=== PATIENT | female | born 1995 | race Caucasian/White ===

== ENCOUNTER 2022-12-12 12:36 | Outpatient (OUT) | payer OTHER, SELFPAY ==
[2022-12-12 13:09] LABS: Basophils Percent Auto 0.5 % (0.2-2.0); Hematocrit 37.1 % (36.0-48.0); Hemoglobin 12.4 g/dL (12.0-16.0); Immature Granulocytes Abs Auto 0.01 10^3/uL (0.00-0.03); Immature Granulocytes Pct Auto 0.1 % (0.0-0.5); Lymphocytes Absolute Auto 1.8 10^3/uL (1.2-3.8); Lymphocytes Percent Auto 23.6 % (20.5-60.0); Mean Corpuscular HGB Conc 33.4 g/dL (29.9-35.2); Mean Corpuscular Hemoglobin 31.9 pg (26.7-34.0); Mean Corpuscular Volume 95.4 fL (81.0-99.0); Mean Platelet Volume 10.1 fL (9.5-13.5); Monocytes Absolute Auto 0.5 10^3/uL (0.3-0.8); Neutrophils Absolute Auto 5.1 10^3/uL (1.4-6.5); Neutrophils Percent Auto 68.8 % (43.0-75.0); Platelet Count 220 10^3/uL (150-450); Red Blood Count 3.89 10^6/uL (4.20-5.40); Red Cell Distribution Width 12.5 % (11.0-15.0); White Blood Count 7.4 10^3/uL (4.0-11.0)
[2022-12-12 14:04] LABS: Estimated Average Glucose 111 mg/dL; Glycohemoglobin A1C 5.5 % (4.5-6.2)
[2022-12-12 14:12] LABS: Free T4 0.82 ng/dL (0.76-1.46)
[2022-12-12 14:13] LABS: HCG Quantitative <1 mIU/mL; Thyroid Stimulating Hormone 1.327 uIU/mL (0.358-3.740)
[2022-12-13 09:10] LABS: FSH 4.9 mIU/mL (.); Luteinizing Hormone(LH) 9.5 mIU/mL (.)
[2022-12-16 09:16] LABS: DHEA, Serum 136 ng/dL (31-701)
== END 2022-12-12 12:37 | disposition home or self-care (01) ==
LOC: LAB 12:40
PROVIDERS: Visit Provider Obstetrics & Gynecology
DX: E28.2 Polycystic ovarian syndrome (principal)
CPT/HCPCS: 36415; 82626; 82627; 83001; 83002; 83036; 84439; 84443; 84702; 85025

== ENCOUNTER 2023-04-27 12:22 | Outpatient (OUT) | payer OTHER, SELFPAY ==
--- NOTE | 2023-04-27 12:31 | US_ITS ---
[address] [address] Patient Name: BENNETT EM MRN: [id number] date: 1995 Sex: F Assigned Patient Location: [facility] Current Patient Location: [facility] Accession/Order Number: [id number] Exam Date: 04/27/2023 12:32 Report Date: 04/27/2023 13:18 At the request of: MERRICK BOCANEGRA Procedure: US OB transvaginal EXAMINATION: US OB transvaginal HISTORY: MISSED MENSES COMPARISON: No relevant comparison available. FINDINGS: [place] intrauterine gestation Gestational sac: 3.1 cm, 9 weeks 0 days CRL: 2.99 cm, 9 weeks 6 days Yolk sac: 4.9 mm Heart rate: 173 bpm Cervix: Closed, 4.7 cm Area of hypoechogenicity in the cervix measuring 1.7 x 0.5 x 0.5 cm, nonspecific Uterus is normal, anteverted, anteflexed The right ovary is normal measuring 2.4 x 1.7 x 2.1 cm. Left ovary is normal measuring 3.6 x 2.7 0.7 cm. Corpus luteal cyst. Clinical age: 9 weeks 6 days Clinical MADIE: 11/24/2023 US/US OB transvaginal IMPRESSION: Viable [place]is intrauterine gestation measuring 9 weeks 6 days Electronically authenticated by: ALETHA TRAN Date: 04/27/2023 13:18
== END 2023-04-27 12:23 | disposition home or self-care (01) ==
LOC: NOMS 12:23
PROVIDERS: Visit Provider Obstetrics & Gynecology
DX: Z34.91 Encounter for supervision of normal pregnancy, unspecified, first trimester (principal); Z3A.09 9 weeks gestation of pregnancy; N92.6 Irregular menstruation, unspecified; E28.2 Polycystic ovarian syndrome
CPT/HCPCS: 76817

== ENCOUNTER 2023-05-18 13:15 | Emergency (ER) | payer OTHER, SELFPAY ==
[2023-05-18 13:23] VITALS: BP 130/64; PULSE 81; RESP 16; TEMP 36.9; O2SAT 100; BMI 24.3
--- NOTE | 2023-05-18 13:24 | ED.PREGNANC1 ---
HPI - General Chief complaint: OB/Uterine Contractions Stated complaint: ABDOMINAL PAIN > 12 WKS Time Seen by Provider: 05/18/23 13:19 Source: patient Mode of arrival: walk-in Limitations: no limitations History of Present Illness HPI Narrative: Patient is a 28-year-old female G5, P3 Ab1 who presents to the emergency department at 13 weeks of for the evaluation of left flank pain over the last day. She states she is concerned she may have a UTI. She reports pain in the left lateral abdomen radiating to the pelvis. She has not had any vaginal bleeding or fluid leakage. She has not had any fevers, she has chronic nausea and vomiting throughout this . She has been using Phenergan at home with improvement for her morning sickness. She denies any dysuria but reports having to strain to force her urine today. She has had no hematuria. She has no history of kidney stones. She does have a history of kidney infections. She had an ultrasound at 9 weeks showing a viable intrauterine gestation Related Data Previous Rx's ?Medication ?Instructions ?Recorded dicyclomine 20 mg tablet 20 mg PO QID PRN abdominal pain 05/18/23 #12 tabs Allergies Allergy/AdvReac Type Severity Reaction Status Date / Time No Known Drug Allergies Allergy Verified 05/18/23 13:23 Review of Systems ROS Constitutional Denies: fever or chills Ears, nose, mouth, and throat Denies: throat pain or nasal congestion Cardiovascular Denies: chest pain Respiratory Denies: shortness of breath Gastrointestinal Reports: abdominal pain, nausea and vomiting; Denies: diarrhea Genitourinary Reports: pelvic pain; Denies: painful urination Musculoskeletal Reports: back pain; Denies: neck pain Integumentary/Breast Denies: rash Neurological Denies: headache Hematologic/Lymphatic Denies: easy bruising or easy bleeding Exam Narrative Exam Narrative: Gen.: Awake, alert, in no distress Head: Normocephalic, atraumatic ENT: Moist mucous membranes Respiratory: No respiratory distress Gastrointestinal: Abdomen is soft, nondistended and nontender to palpation Back: No CVA tenderness Extremities: Moves extremities equally Psych: Normal mood and affect Neuro: No focal neuro deficit Skin: Warm, dry, intact Constitutional Vital Signs, click to edit/add: Last Vital Signs Temp 98.4 F 05/18/23 13:23 Pulse 74 05/18/23 14:46 Resp 18 05/18/23 14:46 BP 116/76 05/18/23 14:46 Pulse Ox 98 05/18/23 14:46 O2 Del Method Room Air 05/18/23 13:23 Course Vital Signs Vital signs: Vital Signs Temperature 98.4 F 05/18/23 13:23 Pulse Rate 81 05/18/23 13:23 Respiratory Rate 16 05/18/23 13:23 Blood Pressure 130/64 05/18/23 13:23 Pulse Oximetry 100 05/18/23 13:23 Oxygen Delivery Method Room Air 05/18/23 13:23 Temperature 98.4 F 05/18/23 13:23 Pulse Rate 74 05/18/23 14:46 Respiratory Rate 18 05/18/23 14:46 Blood Pressure 116/76 05/18/23 14:46 Pulse Oximetry 98 05/18/23 14:46 Oxygen Delivery Method Room Air 05/18/23 13:23 MDM - OB/Uterine Contractions MDM Narrative Medical decision making narrative: Patient was stable vital signs in the ER, she was treated with IV fluids that she was concerned she may be dehydrated. Her urine specimen and labs do not show any evidence of dehydration. Her CBC, BMP and urine specimen are normal, renal ultrasound and OB ultrasound also show no evidence of acute process. Patient encouraged to take Tylenol for home, she was given Bentyl as her symptoms may be GI related. Follow-up with PCP and OB and return to the emergency department if symptoms change or worsen Medical Records Attestation: I reviewed the patient's medical records. Lab Data Attestation: I reviewed the patient's lab results. Labs: Lab Results 05/18/23 05/18/23 Range/Units 13:30 13:51 WBC 8.8 (4.0-11.0) 10^3/uL RBC 3.41 L (4.20-5.40) 10^6/uL Hgb 11.0 L (12.0-16.0) g/dL Hct 33.0 L (36.0-48.0) % MCV 96.8 (81.0-99.0) fL MCH 32.3 (26.7-34.0) pg MCHC 33.3 (29.9-35.2) g/dL RDW 12.2 (11.0-15.0) % Plt Count 210 (150-450) 10^3/uL MPV 10.4 (9.5-13.5) fL Neut % (Auto) 74.9 (43.0-75.0) % Lymph % (Auto) 17.8 L (20.5-60.0) % [place] % (Auto) 6.5 (1.7-12.0) % Eos % (Auto) 0.3 L (0.9-7.0) % Baso % (Auto) 0.3 (0.2-2.0) % Neut # (Auto) 6.6 H (1.4-6.5) 10^3/uL Lymph # (Auto) 1.6 (1.2-3.8) 10^3/uL [place] # (Auto) 0.6 (0.3-0.8) 10^3/uL Eos # (Auto) 0.0 (0.0-0.7) 10^3/uL Baso # (Auto) 0.0 (0.0-0.1) 10^3/uL Abs Immat Gran (auto) 0.02 (0.00-0.03) 10^3/uL Imm/Tot Granulo (auto) 0.2 (0.0-0.5) % Sodium 138 (136-145) mmol/L Potassium 3.6 (3.5-5.1) mmol/L Chloride 103 (98-107) mmol/L Carbon Dioxide 23.7 (21.0-32.0) mmol/L Anion Gap 14.9 BUN 7.0 (7.0-18.0) mg/dL Creatinine 0.66 (0.55-1.02) mg/dL Est GFR ( Amer) >60 (>=60) Est GFR (Non-Af Amer) >60 (>=60) BUN/Creatinine Ratio 10.6 Glucose 87 (74-106) mg/dL Calcium 9.4 (8.5-10.1) mg/dL Urine Color Lt. yellow (YELLOW) Urine Clarity Clear (CLEAR) Urine pH 6.5 (5.0-9.0) Ur Specific [place] 1.020 (1.005-1.025) Urine Protein Negative (NEG/TRACE) mg/dL Urine Glucose (UA) Negative (NEGATIVE) mg/dL Urine Ketones Negative (NEGATIVE) mg/dL Urine Occult Blood Negative (NEGATIVE) Urine Nitrite Negative (NEGATIVE) Urine Bilirubin Negative (NEGATIVE) Urine Urobilinogen 0.2 (0.2-1.0) EU/dL Ur Leukocyte Esterase Negative (NEGATIVE) Imaging Data US - abdomen: Attestation: I have reviewed the pertinent imaging results. Radiologist's impression: ITS Impressions Ultrasound 05/18/23 13:47 IMPRESSION: 1. Single viable intrauterine fetus with heart rate of 157 beats per minute. The placenta is visualized. Estimated gestational age by ultrasound is 13 weeks 1 day with an estimated date of confinement by ultrasound of 11/22/2023. Follow-up ultrasound at 18-22 weeks' gestation for anatomy evaluation. 2. Probable 3 cm corpus luteum cyst in left ovary. Right ovary not visualized. 3. Closed cervix with cervical length of 4.2 cm. Electronically authenticated by: GHASSAN DOSS Date: 05/18/2023 14:45 Renal Ultrasound 05/18/23 13:47 IMPRESSION: 1. Normal ultrasound appearance of the kidneys and urinary bladder. Electronically authenticated by: HELENA CASTRO Date: 05/18/2023 14:44 Procedure: US OB <= 14 weeks fetus Obstetrical ultrasound, 1st trimester CLINICAL: Left flank pain/pelvic pain TECHNIQUE: Transabdominal and transvaginal obstetrical ultrasound was performed. FINDINGS: Comparison: None. UTERUS: A single intrauterine gestation sac with single fetus. [place] rump length is 68.5 mm. heart rate of 157 beats per minute. Placenta is visualized. Cervix is closed and measures 4.2 cm in length. OVARIES/ADNEXA: The right ovary is not visualized. The left ovary measures 3.0 x 2.8 x 2.6 cm, with a dominant cyst measuring 3.0 x 2.8 x 2.6 cm. Color flow to the left ovary. No adnexal abnormality. OTHER FINDINGS: None. ULTRASOUND GESTATIONAL AGE AND ESTIMATED DATE OF CONFINEMENT: The estimated gestational age by ultrasound is 13 weeks 1 day with an estimated date of confinement by the ultrasound of 11/22/2023. IMPRESSION: 1. Single viable intrauterine fetus with heart rate of 157 beats per minute. The placenta is visualized. Estimated gestational age by ultrasound is 13 weeks 1 day with an estimated date of confinement by ultrasound of 11/22/2023. Follow-up ultrasound at 18-22 weeks' gestation for anatomy evaluation. 2. Probable 3 cm corpus luteum cyst in left ovary. Right ovary not visualized. 3. Closed cervix with cervical length of 4.2 cm. us renal: Attestation: I have reviewed the pertinent imaging results. Radiologist's impression: ITS Impressions Ultrasound 05/18/23 13:47 IMPRESSION: 1. Single viable intrauterine fetus with heart rate of 157 beats per minute. The placenta is visualized. Estimated gestational age by ultrasound is 13 weeks 1 day with an estimated date of confinement by ultrasound of 11/22/2023. Follow-up ultrasound at 18-22 weeks' gestation for anatomy evaluation. 2. Probable 3 cm corpus luteum cyst in left ovary. Right ovary not visualized. 3. Closed cervix with cervical length of 4.2 cm. Electronically authenticated by: GHASSAN DOSS Date: 05/18/2023 14:45 Renal Ultrasound 05/18/23 13:47 IMPRESSION: 1. Normal ultrasound appearance of the kidneys and urinary bladder. Electronically authenticated by: HELENA CASTRO Date: 05/18/2023 14:44 Procedure: US renal BI EXAMINATION: US renal BI HISTORY: Left flank pain in COMPARISON: No relevant comparison available. TECHNIQUE: Ultrasound examination was performed of the kidneys and urinary bladder. FINDINGS: RIGHT KIDNEY: No evidence of pelvocaliectasis, mass, or calculi. Normal renal cortical parenchymal echogenicity. Color Doppler demonstrates blood flow within the kidney. Kidney: 12.0 x 5.9 x 4.2 cm LEFT KIDNEY: No evidence of pelvocaliectasis, mass, or calculi. Normal renal cortical parenchymal echogenicity. Color Doppler demonstrates blood flow within the kidney. Kidney: 10.7 x 5.4 x 5.2 cm BLADDER: No visible wall thickening, mass, or calculi. IMPRESSION: 1. Normal ultrasound appearance of the kidneys and urinary bladder. Electronically authenticated by: HELENA CASTRO Date: 05/18/2023 14:44 Discharge Plan Discharge Stand Alone Forms: Portal Instructions Chief Complaint: OB/Uterine Contractions Clinical Impression: Left flank pain Patient Disposition: Home, Self-Care Time of Disposition Decision: 14:54 Condition: Good Prescriptions / Home Meds: New dicyclomine 20 mg tablet 20 mg PO QID PRN (Reason: abdominal pain) Qty: 12 0RF Print Language: Kinyarwanda Instructions: Abdominal Pain in (ED) Referrals: Physician,Non-Staff, MD [Primary Care Provider] - 1 week Discharge Date/Time: 05/18/23 15:06
[2023-05-18 13:36] LABS: Bilirubin Urine NEGATIVE (NEGATIVE); Blood Urine NEGATIVE (NEGATIVE); Clarity Urine CLEAR (CLEAR); Color Urine LT. YELLOW (YELLOW); Glucose Urine UA NEGATIVE (NEGATIVE); Ketones Urine NEGATIVE (NEGATIVE); Leukocyte Esterase Urine NEGATIVE (NEGATIVE); Nitrite Urine NEGATIVE (NEGATIVE); Protein Urine NEGATIVE (NEG/TRACE); Urobilinogen Urine 0.2 EU/dL (0.2-1.0); pH Urine 6.5 (5.0-9.0)
--- NOTE | 2023-05-18 13:47 | US_ITS ---
The [address] [address] Patient Name: BENNETT EM MRN: [id number] date: 1995 Sex: F Assigned Patient Location: ER Current Patient Location: ER Accession/Order Number: [id number] Exam Date: 05/18/2023 14:05 Report Date: 05/18/2023 14:44 At the request of: MANPREET BLANKENSHIP Procedure: US renal BI EXAMINATION: US renal BI HISTORY: Left flank pain in COMPARISON: No relevant comparison available. TECHNIQUE: Ultrasound examination was performed of the kidneys and urinary bladder. FINDINGS: RIGHT KIDNEY: No evidence of pelvocaliectasis, mass, or calculi. Normal renal cortical parenchymal echogenicity. Color Doppler demonstrates blood flow within the kidney. Kidney: 12.0 x 5.9 x 4.2 cm LEFT KIDNEY: No evidence of pelvocaliectasis, mass, or calculi. Normal renal cortical parenchymal echogenicity. Color Doppler demonstrates blood flow within the kidney. Kidney: 10.7 x 5.4 x 5.2 cm BLADDER: No visible wall thickening, mass, or calculi. US/US renal BI IMPRESSION: 1. Normal ultrasound appearance of the kidneys and urinary bladder. Electronically authenticated by: HELENA CASTRO Date: 05/18/2023 14:44
--- NOTE | 2023-05-18 13:47 | US_ITS ---
[address] [address] Patient Name: BENNETT EM MRN: [id number] date: 1995 Sex: F Assigned Patient Location: ER Current Patient Location: ER Accession/Order Number: [id number] Exam Date: 05/18/2023 14:05 Report Date: 05/18/2023 14:45 At the request of: MANPREET BLANKENSHIP Procedure: US OB <= 14 weeks fetus Obstetrical ultrasound, 1st trimester CLINICAL: Left flank pain/pelvic pain TECHNIQUE: Transabdominal and transvaginal obstetrical ultrasound was performed. FINDINGS: Comparison: None. UTERUS: A single intrauterine gestation sac with single fetus. [place] rump length is 68.5 mm. heart rate of 157 beats per minute. Placenta is visualized. Cervix is closed and measures 4.2 cm in length. OVARIES/ADNEXA: The right ovary is not visualized. The left ovary measures 3.0 x 2.8 x 2.6 cm, with a dominant cyst measuring 3.0 x 2.8 x 2.6 cm. Color flow to the left ovary. No adnexal abnormality. OTHER FINDINGS: None. ULTRASOUND GESTATIONAL AGE AND ESTIMATED DATE OF CONFINEMENT: The estimated gestational age by ultrasound is 13 weeks 1 day with an estimated date of confinement by the ultrasound of 11/22/2023. US/US OB <= 14 weeks fetus IMPRESSION: 1. Single viable intrauterine fetus with heart rate of 157 beats per minute. The placenta is visualized. Estimated gestational age by ultrasound is 13 weeks 1 day with an estimated date of confinement by ultrasound of 11/22/2023. Follow-up ultrasound at 18-22 weeks' gestation for anatomy evaluation. 2. Probable 3 cm corpus luteum cyst in left ovary. Right ovary not visualized. 3. Closed cervix with cervical length of 4.2 cm. Electronically authenticated by: GHASSAN DOSS Date: 05/18/2023 14:45
[2023-05-18] MEDS: ACETAMINOPHEN 500 MG TABLET 1000 MG PO (13:56)
[2023-05-18] MEDS: 0.9 % SODIUM CHLORIDE 1,000 ML 1000 ML IV (13:57)
[2023-05-18 14:12] LABS: Anion Gap 14.9; BUN Creatinine Ratio 10.6; Calcium 9.4 mg/dL (8.5-10.1); Carbon Dioxide 23.7 mmol/L (21.0-32.0); Chloride 103 mmol/L (98-107); Estimated GFR (African America >60 (>=60); Estimated GFR (Non-African Ame >60 (>=60); Glucose 87 mg/dL (74-106); Potassium 3.6 mmol/L (3.5-5.1); Sodium 138 mmol/L (136-145)
[2023-05-18 14:12] LABS: Urine Microscopic Indicated NO
[2023-05-18 14:13] LABS: Basophils Percent Auto 0.3 % (0.2-2.0); Eosinophils Percent Auto 0.3 % (0.9-7.0); Immature Granulocytes Abs Auto 0.02 10^3/uL (0.00-0.03); Immature Granulocytes Pct Auto 0.2 % (0.0-0.5); Lymphocytes Absolute Auto 1.6 10^3/uL (1.2-3.8); Lymphocytes Percent Auto 17.8 % (20.5-60.0); Mean Corpuscular HGB Conc 33.3 g/dL (29.9-35.2); Mean Corpuscular Hemoglobin 32.3 pg (26.7-34.0); Mean Corpuscular Volume 96.8 fL (81.0-99.0); Mean Platelet Volume 10.4 fL (9.5-13.5); Monocytes Absolute Auto 0.6 10^3/uL (0.3-0.8); Monocytes Percent Auto 6.5 % (1.7-12.0); Neutrophils Absolute Auto 6.6 10^3/uL (1.4-6.5); Neutrophils Percent Auto 74.9 % (43.0-75.0); Platelet Count 210 10^3/uL (150-450); Red Blood Count 3.41 10^6/uL (4.20-5.40); Red Cell Distribution Width 12.2 % (11.0-15.0); White Blood Count 8.8 10^3/uL (4.0-11.0)
[2023-05-18 14:46] VITALS: BP 116/76; PULSE 74; RESP 18; O2SAT 98
== END 2023-05-18 15:06 | disposition home or self-care (01) ==
PROVIDERS: Physician Assistant; Emergency Provider Emergency Medicine
DX: O26.891 Other specified pregnancy related conditions, first trimester (principal); R10.9 Unspecified abdominal pain; Z3A.13 13 weeks gestation of pregnancy
CPT/HCPCS: 36415; 76775; 76801; 80048; 81003; 85025; 96360; 99285

== ENCOUNTER 2023-05-23 14:20 | Outpatient (REF) | payer OTHER, SELFPAY ==
[2023-05-26 13:10] LABS: Age Gdln ACOG Testing Note (.); HPV Aptima Negative (Negative); IGP, Aptima HPV, rfx 16/18,45 Note (.)
== END 2023-05-23 14:21 | disposition home or self-care (01) ==
LOC: LAB 14:20
PROVIDERS: Visit Provider Obstetrics & Gynecology
DX: Z01.419 Encounter for gynecological examination (general) (routine) without abnormal findings (principal)
CPT/HCPCS: 87624; G0145

== ENCOUNTER 2023-07-07 14:00 | Outpatient (OUT) | payer OTHER, SELFPAY ==
--- NOTE | 2023-07-07 14:02 | US_ITS ---
[address] [address] Patient Name: BENNETT EM MRN: [id number] date: 1995 Sex: F Assigned Patient Location: US Current Patient Location: US Accession/Order Number: [id number] Exam Date: 07/07/2023 14:45 Report Date: 07/07/2023 16:39 At the request of: MERRICK BOCANEGRA Procedure: US OB cervical length EXAMINATION: US OB anatomy, US OB cervical length HISTORY: Screening, , for anatomic survey Z36.89 COMPARISON: No relevant comparison available. TECHNIQUE: Transabdominal sonographic examination was performed for obstetrical and evaluation. FINDINGS: Number: One Heart Rate: 148 H.B. /min Amniotic Fluid Volume: Subjectively normal Placental Location: Posterior fundal with lower margin 5.5 cm from os. Cervix Length: 5.4 cm, closed. ANATOMY: Normal Structures -cerebellum, choroid plexus, cisterna magna, lateral cerebral ventricles, orbits, midline falx, hard palate, four-chamber heart, RVOT, LVOT, stomach, kidneys, bladder, umbilical cord insertion into abdomen, three-vessel cord, cervical spine, thoracic spine, lumbar spine, sacral spine, right upper extremity, left upper extremity, right lower extremity, left lower extremity. SUBOPTIMALLY SEEN: None ABNORMALITIES: None BIOMETRY: BPD: 4.9 cm , 20 weeks 6 days, 83% HC: 18.3 cm, 20 weeks 5 days, 73% AC: 14.6 cm, 20 weeks 0 days, 42% FL: 3.0 cm, 19 weeks 2 days, 21% EFW:314 g; 34% FL/AC: 20.65 FL/BPD: 61.51 HC/AC: 1.25 GESTATIONAL AGE: Age by EDC: 20 weeks 0 days MADIE by EDC: 11/24/2023 Age by current US: 20 weeks 2 days MADIE by current US: 11/22/2023 US/US OB cervical length IMPRESSION: 1. Single live intrauterine with growth detailed above. Electronically authenticated by: HELENA CASTRO Date: 07/07/2023 16:39
--- NOTE | 2023-07-07 14:02 | US_ITS ---
[address] [address] Patient Name: BENNETT EM MRN: [id number] date: 1995 Sex: F Assigned Patient Location: US Current Patient Location: US Accession/Order Number: [id number] Exam Date: 07/07/2023 14:45 Report Date: 07/07/2023 16:39 At the request of: MERRICK BOCANEGRA Procedure: US OB anatomy EXAMINATION: US OB anatomy, US OB cervical length HISTORY: Screening, , for anatomic survey Z36.89 COMPARISON: No relevant comparison available. TECHNIQUE: Transabdominal sonographic examination was performed for obstetrical and evaluation. FINDINGS: Number: One Heart Rate: 148 H.B. /min Amniotic Fluid Volume: Subjectively normal Placental Location: Posterior fundal with lower margin 5.5 cm from os. Cervix Length: 5.4 cm, closed. ANATOMY: Normal Structures -cerebellum, choroid plexus, cisterna magna, lateral cerebral ventricles, orbits, midline falx, hard palate, four-chamber heart, RVOT, LVOT, stomach, kidneys, bladder, umbilical cord insertion into abdomen, three-vessel cord, cervical spine, thoracic spine, lumbar spine, sacral spine, right upper extremity, left upper extremity, right lower extremity, left lower extremity. SUBOPTIMALLY SEEN: None ABNORMALITIES: None BIOMETRY: BPD: 4.9 cm , 20 weeks 6 days, 83% HC: 18.3 cm, 20 weeks 5 days, 73% AC: 14.6 cm, 20 weeks 0 days, 42% FL: 3.0 cm, 19 weeks 2 days, 21% EFW:314 g; 34% FL/AC: 20.65 FL/BPD: 61.51 HC/AC: 1.25 GESTATIONAL AGE: Age by EDC: 20 weeks 0 days MADIE by EDC: 11/24/2023 Age by current US: 20 weeks 2 days MADIE by current US: 11/22/2023 US/US OB anatomy IMPRESSION: 1. Single live intrauterine with growth detailed above. Electronically authenticated by: HELENA CASTRO Date: 07/07/2023 16:39
== END 2023-07-07 14:01 | disposition home or self-care (01) ==
LOC: US 14:00
PROVIDERS: Visit Provider Obstetrics & Gynecology
DX: Z36.89 Encounter for other specified antenatal screening (principal); Z3A.20 20 weeks gestation of pregnancy
CPT/HCPCS: 76805; 76817

== ENCOUNTER 2023-07-10 05:23 | Observation (INO) | payer OTHER, SELFPAY ==
--- OUTSIDE RECORDS SUMMARY | 2023-07-10 05:27 | XMS_ITS | CCD ---
Author Organization [facility] Care Team Providers Care Wheat Shipper Name Role Phone Bryce De La Garza Admitting Physician Unavailable Bryce De La Garza Attending Physician Unavailable NON, STAFF Primary Care Physician Unavailab Savage Roman Rounding Physician Unavailable FEI LOO Admitting Unavailable FEI LOO Attending Unavailable Unavailable Primary Care Provider UnavailKia Jeffrey Primary Care Provider [phone] Unavailable Primary Care Provider UnavailKia Jeffrey CNP Primary Care Provider KIA SHARMA Referring Unavailable NO FAMILY, PHYSICIAN Primary Care Provider Unava DO Ed Hoover Emergency Provider MD Chandrika Faustmi Admit Provider [phone] MD Feliberto Faust Attending Provider [phone] Unavailable Primary Care Provider UnavailDR YURIY Peraza Admitting Unavailable DR YURIY SABILLON Attending Unavailable REQUEST, NONE LISTED Primary Care UnavailDR YURIY Ragland Consulting Unavailable NO FAMILY, PHYSICIAN Primary Care Unavailable Feliberto Faust Attending Unavailable Feliberto Faust Admitting Unavailable Kia Booker APRN, CNP Primary Care Provide r Mariposa Duncan CNP Primary Care Provider Kia Booker APRN, CNP Primary Care Provide r Kia Booker APRN, CNP Primary Care Provide r SAMARA DOMINGUEZ Attending Unavailable KIA SHARMA Primary Care Unavailable KIA SHARMA Primary Care Unavailable MARTIN REAL Attending Unavailable KIA HSARMA Primary Care Unavailable KIA SHARMA Primary Care Unavailable YURIY SABILLON Referring Unavailable YURIY SABILLON Attending Unavailable YURIY SABILLON Attending Unavailable YURIY SABILLON Attending Unavailable Medications Current Medications Medication Drug Class(es) Dates Sig (Normalized) Sig (Original) acetaminophen 500 mg oral tablet (18 sources) Start: 03-04-2022 acetaminophen (TYLENOL) tablet 1,000 mg Start: 10-14-2020 acetaminophen (TYLENOL) tablet 650 mg Start: 05-27-2020 acetaminophen (TYLENOL) tablet 1,000 mg Start: 05-27-2020 take 2 tablets by mo ut every six hours as needed for pain acetaminophen (TYLENOL) 325 MG tablet Take 2 tablets by mouth every 6 hours as needed for Pain 30 tablet 0 05/27/2020 Active acetaminophen 325 mg / HYDROcodone bitartrate 5 mg oral tablet (3 sources) Opioid Agonist Start: 03-04-2022 End: 03-07-2022 HYDROcodone-acetaminophen (NORCO) 5-325 MG per tablet Indications: Abscess of right breast Take 1 tablet by mouth every 6 hours as needed for Pain for up to 3 days. Intended supply: 3 days. Take lowest dose possible to manage pain Max Daily Amount: 4 tablets 12 tablet 0 03/04/2022 03/07/2022 Active Start: 03-01-2022 End: 03-01-2022 HYDROcodone-acetaminophen (N ORCO) 5-325 MG per tablet 1 tablet Start: 10-14-2020 End: 10-17-2020 HYDROcodone-acetaminophen (N ORCO) 5-325 MG per tablet Indications: HGSIL on cytologic smear of cervix Take 1 tablet by mouth every 6 hours as needed for Pain for up to 3 days. Intended supply: 3 days. Take lowest dose possible to manage pain 10 tablet 0 10/14/2020 10/17/2020 Active [id number] 200 actuat albuterol 0.09 mg/actuat metered dose inhaler (20 sources) beta2-Adrenergic Agonist Start: 11-14-2020 take 1-2 puff(s) by mouth every four to six hours albuterol sulfate HFA 108 (90 Base) MCG/ACT inhaler inhale 1 to 2 puffs by mouth and INTO THE LUNGS every 4 to 6 hour... (REFER TO PRESCRIPTION NOTES). 0 11/14/2020 Active Start: 03-20-2020 End: 07-27-2022 Albuterol Sulfate HFA 108 (9 0 Base) MCG/ACT Inhalation Aerosol Solution 04/14/2020 - 12/08/2020 Provider: Kia Sharma CNP Start: 04-19-2017 take 1 puff(s) by in halation every six hours as needed Albuterol Sulfate 2 PUFF Inhalation Q6H PRN For Shortness Of Breath April 19, 2017 Active Start: 04-19-2017 End: 10-26-2021 take 1 puff(s) by inhalation every six hours Albuterol Sulfate Discontinued 2 PUFF INHALATION Q6H April 19, 2017 1:00am October 26, 2021 9:01pm amoxicillin 875 mg oral tablet (1 source) Penicillin-class Antibacterial Start: 12-24-2019 End: 01-03-2020 take 1 tablet by mouth twice daily amoxicillin (AMOXIL) 875 MG tablet Take 1 tablet by mouth 2 times daily for 10 days 20 tablet 0 12/24/2019 01/03/2020 Active amoxicillin 875 mg / clavulanate 125 mg oral tablet (1 source) Penicillin-class Antibacterial Start: 02-06-2020 End: 02-16-2020 take 1 tablet by mouth twice daily amoxicillin-clavu lanate (AUGMENTIN) 875-125 MG per tablet Take 1 tablet by mouth 2 times daily for 10 days 20 tablet 0 02/06/2020 02/16/2020 Active atomoxetine 60 mg oral capsule (20 sources) Norepinephrine Reuptake Inhibitor Start: 03-20-2020 End: 03-03-2022 Strattera 60 MG Oral Capsule 03/20/2020 Provider: Start: 04-09-2019 End: 10-26-2021 take 40 mg by mouth twice daily Atomoxetine Discontinu ed 40 MG PO Twice daily April 09, 2019 1:00am October 26, 2021 9:01pm Start: 02-15-2018 End: 09-23-2020 take 1 capsule by mouth once daily atomoxetine (STRATTERA) 40 MG capsule Take 1 capsule by mouth daily 30 capsule 0 02/15/2018 09/23/2020 Discontinued (LIST CLEANUP) Start: 04-23-2017 End: 10-18-2018 take 40 mg by mouth twice daily Atomoxetine 40 MG Oral BID@0800,1400 60 April 23, 2017 October 18, 2018 Discontinued 60 actuat budesonide 0.08 mg/actuat / formoterol fumarate 0.0045 mg/actuat metered dose inhaler (1 source) Corticosteroid, beta2-Adrenergic Agonist Start: 07-27-2022 Symbicort 80-4.5 MCG/ACT Inhalation Aerosol 07/27/2022 Provider: Mariposa Duncan [employer]PER[employer] busPIRone hydrochloride 10 mg oral tablet (20 sources) Start: 10-29-2021 take 20 mg by mouth three times daily Buspirone Active 20 MG PO Three times daily 90 October 29, 2021 12:00am Start: 10-09-2020 busPIRone (BUS PAR) 15 MG tablet 2 times daily 0 10/09/2020 Active Start: 03-31-2020 End: 09-23-2020 busPIRone (BUSPAR) 15 MG tab let Start: 03-20-2020 End: 08-17-2021 busPIRone HCl 10 MG Oral Tab let 07/01/2021 - 07/15/2021 Provider: Kia Sharma CNP Start: 08-16-2019 End: 10-26-2021 take 20 mg by mouth three times daily Buspirone Discontinued 20 MG PO Three times daily 180 30 August 16, 2019 12:00am October 26, 2021 9:01pm Start: 08-13-2019 End: 08-16-2019 take 30 mg by mouth twice daily Buspirone Discontinued 30 MG PO Twice daily August 13, 2019 12:00am August 16, 2019 11:37am calcium chloride 0.0014 meq/ ml / potassium chloride 0.004 meq/ml / sodium chloride 0.103 meq/ml / sodium lactate 0.028 meq/ml injectable solution (3 sources) Start: 03-04-2022 IntraVENous, a t 125 mL/hr, CONTINUOUS, Starting on Mon03/04/22 at 1330, PACU only Start: 03-04-2022 lactated ringe rs infusion Start: 10-14-2020 lactated ringe rs infusion cephalexin 500 mg oral capsule (1 source) Cephalosporin Antibacterial Start: 08-03-2022 End: 08-10-2022 take 1 capsule by mouth three times daily cephALEXin (KEFLEX) 500 MG capsule Take 1 capsule by mouth 3 times daily for 7 days 21 capsule 0 08/03/2022 08/10/2022 Active cetirizine hydrochloride 10 mg oral tablet (1 source) Histamine-1 Receptor Antagonist Start: 04-09-2019 End: 10-26-2021 take 10 mg by mouth once daily Cetirizine Discontinued 10 MG PO Daily April 09, 2019 1:00am October 26, 2021 9:01pm cimetidine 400 mg oral tablet (1 source) Histamine-2 Receptor Antagonist Start: 08-13-2019 End: 10-26-2021 take 400 mg by mouth twice daily Cimetidine Discontinued 400 MG PO Twice daily August 13, 2019 12:00am October 26, 2021 9:01pm diclofenac sodium 50 mg delayed release oral tablet (1 source) Nonsteroidal Anti-inflammatory Drug Start: 08-13-2019 End: 10-26-2021 take 1 tablet by mouth three times daily as needed for pain Diclofenac Sodium Discontinued 50 MG PO Three times daily August 13, 2019 12:00am October 26, 2021 9:01pm take one tablet by mouth three times daily as needed for pain famotidine 20 mg oral tablet (13 sources) Histamine-2 Receptor Antagonist Start: 07-27-2022 Famotidine 20 MG Oral Tablet 07/27/2022 Provider: Mariposa Duncan CNP Start: 04-09-2019 End: 10-26-2021 Famotidine 20 MG Oral Tablet 04/03/2020 - 07/15/2021 Provider: Kia Sharma CNP FLUoxetine 20 mg oral capsule (20 sources) Serotonin Reuptake Inhibitor Start: 10-29-2021 take 20 mg by mouth once daily in the morning Fluoxetine Active 20 MG PO Every morning October 29, 2021 12:00am Start: 07-01-2021 End: 08-17-2021 FLUoxetine HCl 20 MG Oral Ca psule 07/15/2021 - 08/17/2021 Provider: Kia Sharma CNP Start: 03-12-2020 End: 07-01-2021 FLUoxetine HCl 40 MG Oral Ca psule 03/20/2020 - 07/01/2021 Provider: Start: 08-16-2019 End: 10-26-2021 take 80 mg by mouth once daily Fluoxetine Discontinued 80 MG PO Daily 60 August 16, 2019 12:00am October 26, 2021 9:01pm Start: 04-13-2019 End: 08-16-2019 take 60 mg by mouth once daily Fluoxetine Discontinued 60 MG PO Daily April 13, 2019 1:00am August 16, 2019 11:37am Start: 10-22-2018 End: 04-13-2019 take 40 mg by mouth once daily in the evening Fluoxetine Discontinued 40 MG PO Every evening April 09, 2019 11:14pm April 13, 2019 12:40pm Fluticasone Propionate (Flovent Hfa) 44 mcg/actuation Hfa Aerosol Inhaler (1 source) Start: 02-27-2019 End: 10-26-2021 take 1 puff(s) by inhalation twice daily Fluticasone Propionate (Flovent Hfa) 44 mcg/actuation Hfa Aerosol Inhaler Discontinued 2 PUFF INHALATION Twice daily February 27, 2019 1:00am October 26, 2021 9:01pm gabapentin 100 mg oral capsule (2 sources) Anti-epilept ic Agent Start: 10-29-2021 take 200 mg by mouth twice daily Gabapentin Active 200 MG PO Twice Daily at 0900 and 1400 60 October 29, 2021 12:00am Start: 08-16-2019 End: 10-26-2021 take 200 mg by mouth twice daily Gabapentin Discontinued 200 MG PO Twice Daily at 0900 and 1400 120 August 16, 2019 12:00am October 26, 2021 9:01pm hydrOXYzine pamoate 50 mg oral capsule (6 sources) Antihistamine Start: 10-29-2021 take 50 mg by mouth every six hours Hydroxyzine Pamoate Active 50 MG PO Q6H 30 October 29, 2021 12:00am Start: 09-15-2020 take 1 tablet by boby th three times daily as needed for anxiety hydrOXYzine (ATARAX) 50 MG tablet TAKE 1 TABLET BY MOUTH THREE TIMES DAILY NEEDED FOR ANXIETY 0 09/15/2020 Suspended ibuprofen 600 mg oral tablet (17 sources) Nonsteroidal Anti-inflammatory Drug Start: 03-01-2022 take 1 tablet by mouth every six hours as needed for pain ibuprofen (IBU) 600 MG tablet Take 1 tablet by mouth every 6 hours as needed for Pain 120 tablet 0 03/01/2022 Active Start: 05-27-2020 End: 03-01-2022 take 1 tablet by mouth every eight hours as needed for pain ibuprofen (ADVIL;MOTRIN) 800 MG tablet Take 1 tablet by mouth every 8 hours as needed for Pain 30 tablet 0 05/27/2020 03/01/2022 Discontinued (Therapy completed) lidocaine hydrochloride 20 mg/ml mucous membrane topical solution (4 sources) Antiarrhythmic, Amide Local Anesthetic Start: 02-06-2020 lidocaine viscous hcl (XYLOCAINE) 2 % solution 15 mL Start: 12-24-2019 lidocaine visc ous hcl (XYLOCAINE) 2 % SOLN solution Take 15 mLs by mouth as needed for Dental Pain 200 mL 0 12/24/2019 Active meloxicam 15 mg oral tablet (1 source) Nonsteroidal Anti-inflammatory Drug Start: 04-09-2019 End: 10-26-2021 take 15 mg by mouth once daily Meloxicam Discontinued 15 MG PO Daily April 09, 2019 1:00am October 26, 2021 9:02pm 2 ml metoclopramide 5 mg/ml prefilled syringe (1 source) Dopamine-2 Receptor Antagonist Start: 10-14-2020 End: 10-14-2020 10 mg, Intravenous, ONCE PRN, Nausea, Starting on Mon10/14/20 at 1137, For 1 dose Secondary antiemetic therapy. PACU only metroNIDAZOLE 500 mg oral tablet (2 sources) Nitroimidazole Antimicrobial Start: 03-25-2021 End: 04-01-2021 take 1 tablet by mouth twice daily metroNIDAZOLE (FLAGYL) 500 MG tablet Indications: Vaginal discharge Take 1 tablet by mouth 2 times daily for 7 days 14 tablet 0 03/25/2021 04/01/2021 Active Start: 02-25-2020 End: 03-03-2020 take 1 tablet by mouth twice daily metroNIDAZOLE (FLAGYL) 500 MG tablet Take 1 tablet by mouth 2 times daily for 7 days 14 tablet 0 02/25/2020 03/03/2020 Active nicotine 2 mg chewing gum (1 source) Cholinergic Nicotinic Agonist Start: 04-13-2019 End: 10-26-2021 Nicotine (Polacrilex) Discontinued 2 MG BUCCAL Q2H 30 April 13, 2019 1:00am October 26, 2021 9:02pm ondansetron 4 mg disintegrating oral tablet (12 sources) Serotonin-3 Receptor Antagonist Start: 08-03-2022 take 1 tablet by mouth three times daily as needed for nausea ondansetron (ZOFRAN-ODT) 4 MG disintegrating tablet Take 1 tablet by mouth 3 times daily as needed for Nausea or Vomiting 10 tablet 0 08/03/2022 Active Start: 08-03-2022 End: 08-03-2022 ondansetron (ZOFRAN) injecti on 4 mg Start: 04-24-2022 take 1 tablet by boby th three times daily as needed for nausea ondansetron (ZOFRAN) 4 MG tablet Take 1 tablet by mouth 3 times daily as needed for Nausea or Vomiting 15 tablet 0 04/24/2022 Active Start: 04-24-2022 End: 04-24-2022 ondansetron (ZOFRAN) injecti on 4 mg Start: 03-04-2022 End: 03-05-2022 4 mg, IntraVENous, ONCE PRN, 1 dose, Starting on Mon03/04/22 at 1313, Until 03/05/22 at 1313, Nausea Initial antiemetic therapy. PACU only Start: 10-14-2020 End: 10-14-2020 4 mg, Intravenous, ONCE PRN, Nausea, Starting on Mon10/14/20 at 1137, For 1 dose Initial antiemetic therapy. PACU only oxyCODONE (2 sources) Opioid Agonist Start: 03-04-2022 End: 03-04-2022 oxyCODONE (ROXICODONE) immed iate release tablet 5 mg Start: 10-14-2020 End: 10-14-2020 take 5 mg by mouth once as needed for pain 5 mg, Oral, ONCE PRN, Pain Moderate (4-6), Starting on Mon10/14/20 at 1137, For 1 dose PHASE II PACU only prazosin 1 mg oral capsule (20 sources) alpha-Adrenergic Tariq Start: 10-29-2021 take 1 mg by mouth once daily at bedtime Prazosin Active 1 MG PO Daily at bedtime October 29, 2021 12:00am Start: 03-20-2020 End: 08-17-2021 take 1-2 capsules by mouth at bedtime as needed prazosin (MINIPRESS) 2 MG capsule TAKE 1-2 CAPSULES BY MOUTH AT BEDTIME NEEDED FOR NIGHTMARE *EMERGENCY REFILL* 0 09/08/2020 Active Start: 04-09-2019 End: 10-26-2021 take 5 mg by mouth once daily at bedtime Prazosin Discontinued 5 MG PO Daily at bedtime April 09, 2019 1:00am October 26, 2021 9:02pm Start: 10-22-2018 End: 04-09-2019 take 2 mg by mouth once daily at bedtime Prazosin 2 MG Oral Daily at bedtime 60 30 October 22, 2018 Active Start: 02-15-2018 End: 10-26-2021 Prazosin HCl 1 MG Oral Capsu le, conventional 07/01/2021 - 07/15/2021 Provider: Kia Sharma CNP 2 ml prochlorperazine 5 mg/ml injection (1 source) Phenothiazine Start: 03-04-2022 End: 03-05-2022 5 mg, IntraVENous, ONCE PRN, 1 dose, Starting on Mon03/04/22 at 1313, Until 03/05/22 at 1313, Nausea Secondary antiemetic therapy. PACU only QUEtiapine 50 mg oral tablet (20 sources) Atypical Antipsychotic Start: 10-29-2021 take 50 mg by mouth twice daily Quetiapine Active 50 MG PO Twice daily October 29, 2021 12:00am Start: 10-09-2020 QUEtiapine (SE ROQUEL) 25 MG tablet 100 mg nightly 0 10/09/2020 Active Start: 03-12-2020 End: 08-17-2021 SEROquel 25 MG Oral Tablet 0 03/20/2020 - 08/17/2021 Provider: Start: 08-16-2019 End: 10-26-2021 SEROquel 50 MG Oral Tablet 0 07/01/2021 - 07/15/2021 Provider: Kia Sharma CNP Start: 04-13-2019 End: 10-26-2021 SEROquel 100 MG Oral Tablet 03/20/2020 - 08/17/2021 Provider: Start: 04-13-2019 End: 08-16-2019 take 25 mg by mouth twice daily Quetiapine Discontinued 25 MG PO Twice daily August 13, 2019 12:42am August 16, 2019 11:37am Start: 02-24-2019 End: 04-09-2019 take 25 mg by mouth every eight hours Quetiapine Discontinued 25 MG PO Q8H February 24, 2019 1:00am April 09, 2019 11:16pm traZODone hydrochloride 50 mg oral tablet (8 sources) Serotonin Reuptake Inhibitor Start: 10-29-2021 take 50 mg by mouth once daily at bedtime Trazodone Active 50 MG PO Daily at bedtime 15 October 29, 2021 12:00am Start: 04-23-2017 End: 10-18-2018 take 150 mg by mouth once daily at bedtime Trazodone 150 MG Oral Daily at bedtime April 23, 2017 Discontinued Viloxazine (6 sources) Viloxazine HCl E R (QELBREE) 200 MG CP24 Take by mouth 0 Active Viloxazine HCl E R (QELBREE) 200 MG CP24 Take by mouth 0 Suspended Completed/Discontinued Medications Medication Drug Class(es) Dates Sig (Normalized) Sig (Original) acyclovir 400 mg oral tablet (14 sources) Herpesvirus Nucleoside Analog DNA Polymerase Inhibitor, Herpes Simplex Virus Nucleoside Analog DNA Polymerase Inhibitor, Herpes Zoster Virus Nucleoside Analog DNA Polymerase Inhibitor Start: 05-28-2021 End: 07-15-2021 Acyclovir 400 MG Oral Tablet 07/01/2021 - 07/15/2021 Provider: Kia Sharma CNP amitriptyline hydrochloride 25 mg oral tablet (5 sources) Tricyclic Antidepressant Start: 11-21-2020 End: 03-03-2022 take 1-2 tablets by mouth at bedtime amitriptyline (ELAVIL) 25 MG tablet take 1 to 2 tablets by mouth at bedtime if needed 0 11/21/2020 03/03/2022 Discontinued (Therapy completed) ARIPiprazole 5 mg oral tablet (7 sources) Atypical Antipsychotic Start: 04-23-2017 End: 10-18-2018 take 5 mg by mouth once daily Aripiprazole 5 MG Oral Daily April 23, 2017 October 18, 2018 Discontinued benzocaine 0.1 mg/mg oral gel (3 sources) Standardized Chemical Allergen Start: 05-27-2020 End: 09-23-2020 benzocaine (ORAJEL) 10 % mucosal gel Take by mouth as needed. 7 g 0 05/27/2020 09/23/2020 Discontinued (LIST CLEANUP) cariprazine 3 mg oral capsule (5 sources) Atypical Antipsychotic Start: 11-14-2020 End: 03-03-2022 take 1 capsule by mouth once daily VRAYLAR 3 MG CAPS capsule TAKE 1 CAPSULE BY MOUTH ONCE DAILY AFTER TAKING 1.5MG CAPSULE FOR 7 DAYS 0 11/14/2020 03/03/2022 Discontinued (Therapy completed) ceFAZolin (ANCEF) 2000 mg in dextrose 5 % 100 mL IVPB (1 source) Start: 10-14-2020 End: 10-14-2020 ceFAZolin (ANCEF) 2000 mg in dextrose 5 % 100 mL IVPB clindamycin 150 mg oral capsule (3 sources) Lincosamide Antibacterial Start: 03-01-2022 End: 03-08-2022 take 3 capsules by mouth three times daily clindamycin (CLEOCIN) 150 MG capsule Take 3 capsules by mouth 3 times daily for 7 days 63 capsule 0 03/01/2022 03/08/2022 Suspended Start: 03-01-2022 End: 03-01-2022 clindamycin (CLEOCIN) capsul e 450 mg dimenhyDRINATE 50 mg oral tablet (1 source) Start: 03-04-2022 End: 03-04-2022 dimenhyDRINATE (DRAMAMINE) tablet 50 mg 2 ml fentaNYL 0.05 mg/ml injection (4 sources) Opioid Agonist Start: 03-04-2022 50 mcg, IntraV ENous, EVERY 5 MIN PRN, 4 doses, Starting on Mon03/04/22 at 1313, Until Discontinued, Pain Severe (7-10) Phase I - Initial therapy for severe pain. PACU only Start: 03-04-2022 25 mcg, IntraV ENous, EVERY 5 MIN PRN, 4 doses, Starting on Mon03/04/22 at 1313, Until Discontinued, Pain Moderate (4-6) Phase I - Initial therapy for moderate pain. PACU only Start: 10-14-2020 50 mcg, Intrav enous, EVERY 5 MIN PRN, Pain Severe (7-10), Starting on Mon10/14/20 at 1137, For 4 doses Phase I - Secondary therapy to be used after all initial severe pain medication doses have been administered. PACU only Start: 10-14-2020 25 mcg, Intrav enous, EVERY 5 MIN PRN, Pain Moderate (4-6), Starting on Mon10/14/20 at 1137, For 4 doses Phase I - Secondary therapy to be used after all initial moderate pain medication doses have been administered. PACU only 120 actuat fluticasone propionate 0.11 mg/actuat metered dose inhaler (20 sources) Corticosteroid Start: 11-16-2020 End: 03-03-2022 take 1 puff(s) by mouth twice daily FLOVENT HFA 110 MCG/ACT inhaler inhale 1 puff by mouth and INTO THE LUNGS twice a day 0 11/16/2020 03/03/2022 Discontinued (Therapy completed) Start: 03-20-2020 End: 07-27-2022 Flovent HFA 110 MCG/ACT Inha lation Aerosol 04/14/2020 - 07/01/2021 Provider: Kia Sharma CNP iopamidol (ISOVUE-370) 76 % injection 75 mL (1 source) Start: 04-24-2022 End: 04-24-2022 iopamidol (ISOVUE-370) 76 % injection 75 mL 1 ml ketorolac tromethamine 30 mg/ml cartridge (1 source) Nonsteroidal Anti-inflammatory Drug, Cyclooxygenase Inhibitor Start: 08-03-2022 End: 08-03-2022 ketorolac (TORADOL) injection 30 mg naproxen 500 mg oral tablet (7 sources) Nonsteroidal Anti-inflammatory Drug Start: 04-19-2017 End: 10-18-2018 take 500 mg by mouth every eight hours as needed for pain Naproxen 500 MG Oral Q8H PRN For Pain April 19, 2017 October 18, 2018 Discontinued OLANZapine 10 mg oral tablet (20 sources) Atypical Antipsychotic Start: 02-27-2019 End: 04-09-2019 take 1 tablet by mouth once daily at bedtime Olanzapine (Zyprexa Zydis) 15 mg tablet,disintegrat ing Discontinued 15 MG PO Daily at bedtime February 27, 2019 1:00am April 09, 2019 11:12pm Start: 02-15-2018 End: 09-23-2020 take 10 mg by mouth once daily at bedtime Olanzapine Discontinued 10 MG PO Daily at bedtime April 09, 2019 1:00am April 13, 2019 12:40pm Start: 04-19-2017 End: 04-23-2017 take 10 mg by mouth at bedtime Olanzapine 10 MG Oral B edtime April 19, 2017 April 23, 2017 Discontinued penicillin v potassium 250 m g oral tablet (3 sources) Start: 05-27-2020 End: 05-27-2020 penicillin v potassium (VEET ID) tablet 500 mg Start: 05-27-2020 End: 06-03-2020 take 1 tablet by mouth four times daily penicillin v potassium (VEETID) 500 MG tablet Take 1 tablet by mouth 4 times daily for 7 days 28 tablet 0 05/27/2020 06/03/2020 Active Start: 04-10-2019 End: 08-16-2019 take 1 tablet by mouth four times daily Penicillin V Potassium Discontinued 1 TAB PO Four times daily April 10, 2019 1:00am August 16, 2019 11:37am 50 ml sodium chloride 9 mg/m l injection (6 sources) Start: 08-03-2022 End: 08-03-2022 0.9 % sodium chloride bolus Start: 04-24-2022 End: 04-24-2022 0.9 % sodium chloride bolus Start: 03-04-2022 0.9 % sodium c hloride infusion Start: 03-04-2022 sodium chlorid e flush 0.9 % injection 5-40 mL vortioxetine 10 mg oral tablet (1 source) Start: 02-15-2018 End: 12-24-2019 take 1 tablet by mouth once daily VORTIoxetine (TRINTELLIX) 10 MG TABS tablet Take 10 mg by mouth daily 30 tablet 0 02/15/2018 12/24/2019 Discontinued (LIST CLEANUP) Problems Active Problems Problem Classification Problem Date Documented Date Episodic/Chronic Adjustment disorders (1 source) Adjustment disorder; Translations: [Adjustment disorder, unspecified] 02-28-2019 Chronic Anxiety disorders (6 sources) Posttraumatic stress disorder; Translations: [Post-traumatic stress disorder, unspecified] Onset: 10-26-2021 10-20-2018 Chronic Asthma (20 sources) Asthma; Translations: [Other asthma] Onset: 03-20-2020 Chronic Cancer of cervix (13 sources) High grade squamous intraepithelial lesion on cervical Papanicolaou smear; Translations: [High grade squamous intraepithelial lesion on cytologic smear of cervix (HGSIL)] Episodic Disorders of teeth and jaw (5 sources) Infection of tooth; Translations: [Dental abscess] 04-10-2019 Episodic Esophageal disorders (20 sources) Gastroesophageal reflux disease without esophagitis; Translations: [Gastro-esophageal reflux disease without esophagitis] Onset: 04-03-2020 Chronic Immunizations and screening for infectious disease (7 sources) HIV screening; Translations: [Special screening examination for other specified viral diseases] Onset: 05-28-2021 Episodic Inflammatory diseases of female pelvic organs (1 source) Bacterial vaginosis; Translations: [Bacterial vaginosis] Episodic Menstrual disorders (3 sources) Irregular periods; Translations: [Irregular menstruation, unspecified] Onset: 05-01-2023 Chronic Mood disorders (20 sources) Mixed bipolar affective disorder, severe, with psychosis; Translations: [Bipolar I disorder] Onset: 02-15-2015 Resolved: 07-15-2021 02-13-2018 Chronic Nausea and vomiting (1 source) Nausea, vomiting and diarrhea; Translations: [Nausea with vomiting, unspecified] Episodic Nutritional deficiencies (1 source) Vitamin D deficiency; Translations: [Vitamin D deficiency, unspecified] 04-10-2019 Chronic Other female genital disorders (1 source) Vaginal bleeding; Translations: [Vaginal bleeding] Episodic Other female genital disorders (1 source) Vaginal discharge; Translations: [Other specified noninflammatory disorders of vagina] Episodic Other lower respiratory disease (7 sources) Cough; Translations: [Cough] Onset: 05-28-2021 Episodic Other screening for suspected conditions (not mental disorders or infectious disease) (8 sources) Encounter for screening for diabetes mellitus; Translations: [Diabetes Risk Test Score] Onset: 05-28-2021 Episodic Residual codes; unclassified (20 sources) Finding of body mass index; Translations: [Body mass index (observable entity)] Onset: 03-20-2020 Episodic Schizophrenia and other psychotic disorders (20 sources) Schizoaffective disorder; Translations: [Schizoaffective disorder, unspecified] Onset: 03-20-2020 Chronic Unclassified (1 source) Patient encounter status; Translations: [Women's annual routine gynecological examination] Unclassified (1 source) 12 week abd pain, cramping Onset: 05-18-2023 Past or Other Problems Problem Classification Problem Date Documented Da te Episodic/Chronic Abdominal pain (2 sources) Flank pain; Translations: [Unspecified abdominal pain] Onset: 08-03-2022 Episodic Mood disorders (5 sources) Bipolar I disorder, most recent episode depression; Translations: [Bipolar I disorder, most recent episode depressed] Onset: 07-15-2017 Resolved: 07-17-2017 07-17-2017 Nonmalignant breast conditions (11 sources) Cellulitis of breast; Translations: [Mastitis without abscess] Onset: 03-04-2022 Episodic Spondylosis; intervertebral disc disorders; other back problems (20 sources) Low back pain; Translations: [Low back pain] Onset: 03-20-2020 Episodic Suicide and intentional self-inflicted injury (7 sources) Suicidal behavior; Translations: [Suicidal thoughts] Onset: 10-26-2021 10-26-2021 Episodic Unclassified (5 sources) Finding of body mass index; Translations: [Body mass index (observable entity)] Onset: 03-20-2020 Urinary tract infections (2 sources) Urinary tract infectious disease; Translations: [Urinary tract infection, site not specified] Onset: 08-03-2022 Episodic Viral infection (20 sources) Herpes simplex type 1 infection; Translations: [Herpesviral infection, unspecified] Onset: 05-31-2021 Episodic Results Test Name Value Interpretation Reference Range Facility Cult,Urineon 07-01-2023 Cult,Urine Specimen Description .CLEAN CATCH URINE Culture NO SIGNIFICANT GROWTH Report Status FINAL 07/01/2023 Normal [facility] Comment on above: Performed By: #### U RC #### [address] [id number] Store Keeper: Claude Gonzalez MD [address] [place] [address] Store Keeper: Hayden Cartagena MD Urinalysis w/ Microon 2023 Bilirubin, SemiQt,Ur Negative Normal NEG [facility] Comment on above: Performed By: #### U AX, UMICAO #### [address] [place] [address] Store Keeper: Hayden Cartagena MD Blood, Urine Negative Normal NEG [facility] Comment on above: Performed By: #### U AX, UMICAO #### [address] [place] [address] Store Keeper: Hayden Cartagena MD Clarity (U) Clear Normal CLEAR [facility] Comment on above: Performed By: #### U AX, UMICAO #### [facility] [address] [place], [place] [phone] Store Keeper: Hayden Cartagena MD Color (U) Yellow Normal YEL [facility] Comment on above: Performed By: #### U AX, UMICAO #### [facility] [address] [place], [place] [phone] Store Keeper: Hayden Cartagena MD Epithelial cells LM Ql (Urine sed) 2 TO 5 Normal 0-25 [facility] Comment on above: Performed By: #### U AX, UMICAO #### [facility] [address] [place], [place] [phone] Store Keeper: Hayden Cartagena MD Glucose Ql (U) Negative Normal NEG [facility] in [facility] Comment on above: Performed By: #### U AX, UMICAO #### [facility] [address] [place] [address] Dr. [place], [place] [phone] Store Keeper: Hayden Cartagena MD Ketones Ql (U) Negative Normal NEG [facility] Comment on above: Performed By: #### U AX, UMICAO #### [facility] [address] [place], [place] [phone] Store Keeper: Hayden Cartagena MD Leukocyte esterase Test strip Ql (U) Negative Normal NEG [facility] Comment on above: Performed By: #### U AX, UMICAO #### [facility] [address] [place], [place] 1012783 Store Keeper: Hayden Cartagena MD Nitrite,Ur Negative Normal NEG [facility] Comment on above: Performed By: #### U AX, UMICAO #### [facility] [address] [place], [place] [id number] Store Keeper: Hayden Cartagena MD PH,Ur 6.0 Normal 5.0-9.0 [facility] Comment on above: Performed By: #### U AX, UMICAO #### [facility] [address] [place], [place] [phone] Store Keeper: Hayden Cartagena MD Protein Ql (U) Negative Normal NEG [facility] Comment on above: Performed By: #### U AX, UMICAO #### [facility] [address] [place], [place] [phone] Store Keeper: Hayden Cartagena MD Spec. Herrin,Ur 1.010 Normal 1.010-1.020 [facility] Comment on above: Performed By: #### U AX, UMICAO #### [facility] [address] [place] [address] Dr. [place], [place] [phone] Store Keeper: Hayden Cartagena MD Urine RBC's None Normal 0-2 [facility] Comment on above: Performed By: #### U AX, UMICAO #### [facility] [address] [place] [address] Dr. [place], [place] [phone] Store Keeper: Hayden Cartagena MD Urine WBC's None Normal 0-5 [facility] Comment on above: Performed By: #### U AX, UMICAO #### [facility] [address] [place] [address] [place] [address] Store Keeper: Hayden Cartagena MD Urobilinogen,Ur Normal Normal 0.0-1.0 [facility] Comment on above: Performed By: #### U AX, UMICAO #### [facility] [address] [place], [place] 1756283 Store Keeper: Hayden Cartagena MD Cult,Urineon 05-03-2023 Cult,Urine Specimen Description .CLEAN CATCH URINE Culture ESCHERICHIA COLI 50 TO 100,000 CFU/ML Report Status FINAL 05/03/2023 SUSCEPTIBILITY Organism ESCHERICHIA COLI Method LEVI Ampicillin >=32 RESISTANT Cefazolin 16 INTERMEDIATE Cefazolin sensitivity results can be used to predict the effectiveness of oral cephalosporins (eg. Cephalexin) in uncomplicated Urinary Tract Infections due to E. coli, K. pneumoniae, and P. mirabilis Ceftriaxone <=0.25 SUSCEPTIBLE ESBL NEGATIVE Gentamicin <=1 SUSCEPTIBLE Levofloxacin <=0.12 SUSCEPTIBLE Nitrofurantoin <=16 SUSCEPTIBLE Piperacillin/Tazobac hudson 8 SUSCEPTIBLE Tobramycin <=1 SUSCEPTIBLE Trimethoprim/Sulfa <=20 SUSCEPTIBLE Susceptible [facility] Comment on above: Performed By: #### U #### [facility] [address] [place], [place] [phone] Store Keeper: Claude Gonzalez MD [facility] [address] [place] [address] Store Keeper: Hayden Cartagena MD HIV Ag/Abon 05-02-2023 HIV Ag/Ab Non-Reactive Normal [facility] Comment on above: Result Comment: No l aboratory evidence of HIV infection. If acute HIV infection is suspected, consider testing for HIV-1 RNA. Performed By: #### U AX, UMICAO #### [facility] [address] [place] [address] Store Keeper: Hayden Cartagena MD T.pallidum Ab Screenon 05-01 T.pallidum Ab Screen Non-Reactive Normal NR [facility] Comment on above: Result Comment: T. pallidum antibodies are not detected. There is no serological evidence of infection with T. pallidum (early primary syphilis cannot be excluded). Retest in 2-4 weeks if syphilis is clinically suspect. Performed By: #### U AX, UMICAO #### [facility] [address] [place] [address] Store Keeper: Hayden Cartagena MD CBC with Auto Differentialon 05-01-2023 Basophils (Bld) [#/Vol] 0.03 10*3/uL [facility] Basophils/100 WBC (Bld) 0 % 0 - 2 % B ON [facility] Eosinophils (Bld) [#/Vol] [facility] Eosinophils/100 WBC (Bld) 0 % Low 1 - 4 % [facility] Erythrocyte distribution width (RBC) [Ratio] 12.2 % 11.8 - 14.4 % [facility] Hematocrit (Bld) [Volume fraction] 36.2 % Low 36.3 - 47.1 % [facility] Hemoglobin (Bld) [Mass/Vol] 12.1 g/dL 11.9 - 15.1 g/dL [facility] Immature granulocytes (Bld) [#/Vol] [facility] Immature granulocytes/100 WBC (Bld) 0 % 0 [facility] Interpretation and review of laboratory results Abnormal [facility] Lymphocytes/100 WBC (Bld) 19 % Low 24 - 43 % [facility] Lymphocytes/100 WBC (Bld) 1.62 % [facility] MCH (RBC) [Entitic mass] 32.1 pg 25.2 - 33.5 pg [facility] MCHC (RBC) [Mass/Vol] 33.4 g/dL 28.4 - 34.8 g/dL [facility] MCV (RBC) [Entitic vol] 96.0 fL 82.6 - 102.9 fL [facility] Monocytes/100 WBC (Bld) 6 % 3 - 12 % [facility] ON [facility] Monocytes/100 WBC (Bld) 0.51 % [facility] Neutrophils/100 WBC (Bld) 75 % High 36 - 65 % [facility] Nucleated RBC/100 WBC (Bld) [Ratio] 0.0 % 0.0 per 100 WBC [facility] Platelet mean volume (Bld) [Entitic vol] 10.3 fL 8.1 - 13.5 fL [facility] Platelets (Bld) [#/Vol] 201 10*3/uL [facility] RBC (Bld) [#/Vol] 3.77 10*6/uL Low 3.95 - 5.1 1 m/uL [facility] Segmented neutrophils/100 WBC (Bld) 6.24 % [facility] WBC other (Bld) [#/Vol] 8.4 B ON [facility] CBC with Diffon 05-01-2023 Abs. Basophil 0.03 k/uL Normal 0.00-0.20 [facility] Comment on above: Performed By: #### A HCV, HBS, LISA, GLYHGB, HIVCMB, TREP #### [address] [address] Store Keeper: Claude Gonzalez MD #### CDP #### [address] [place] [phone] Store Keeper: Hayden Cartagena MD Abs. Eosinophil <0.03 Normal 0.00-0.44 [facility] Comment on above: Performed By: #### A HCV, HBS, LISA, GLYHGB, HIVCMB, TREP #### [address] [address] Store Keeper: Claude Gonzalez MD #### CDP #### [address] [place] [phone] Store Keeper: Hayden Cartagena MD Abs.Imm.Granulocyte <0.03 Normal 0.00-0.30 [facility] Comment on above: Performed By: #### A HCV, HBS, LISA, GLYHGB, HIVCMB, TREP #### [address] [address] Store Keeper: Claude Gonzalez MD #### CDP #### [address] [place] [phone] Store Keeper: Hayden Cartagena MD Abs.Neutrophil (Seg) 6.24 k/uL Normal 1.50-8.10 [facility] Comment on above: Performed By: #### A HCV, HBS, LISA, GLYHGB, HIVCMB, TREP #### [address] [id number] Store Keeper: Claude Gonzalez MD #### CDP #### [address] [place], [place] 1932383 Store Keeper: Hayden Cartagena MD Basophils/100 WBC (Bld) 0 % Normal 0-2 [facility] Comment on above: Performed By: #### A HCV, HBS, LISA, GLYHGB, HIVCMB, TREP #### [address] [address] Store Keeper: Claude Gonzalez MD #### CDP #### [address] [place] [phone] Store Keeper: Hayden Cartagena MD Eosinophils/100 WBC (Bld) 0 % Low 1-4 [facility] Comment on above: Performed By: #### A HCV, HBS, LISA, GLYHGB, HIVCMB, TREP #### [address] [address] Store Keeper: Claude Gonzalez MD #### CDP #### [address] [place] [phone] Store Keeper: Hayden Cartagena MD Erythrocyte distribution width (RBC) [Ratio] 12.2 % Normal 11.8-14.4 [facility] Comment on above: Performed By: #### A HCV, HBS, LISA, GLYHGB, HIVCMB, TREP #### [address] [address] Store Keeper: Claude Gonzalez MD #### CDP #### [address] [place] [address] Store Keeper: Hayden Cartagena MD Hematocrit (Bld) [Volume fraction] 36.2 % Low 36.3-47.1 [facility] Comment on above: Performed By: #### A HCV, HBS, LISA, GLYHGB, HIVCMB, TREP #### [address] [place] [address] Store Keeper: Claude Gonzalez MD #### CDP #### [address] [place], [place] 2469083 Store Keeper: Hayden Cartagena MD Hemoglobin (Bld) [Mass/Vol] 12.1 g/dL Normal 11.9-15.1 [facility] Comment on above: Performed By: #### A HCV, HBS, LISA, GLYHGB, HIVCMB, TREP #### [address] [address] Store Keeper: Claude Gonzalez MD #### CDP #### [address] [place] [phone] Store Keeper: Hayden Cartagena MD Immature granulocytes/100 WBC (Bld) 0 % Normal 0 [facility] Comment on above: Performed By: #### A HCV, HBS, LISA, GLYHGB, HIVCMB, TREP #### [address] [address] Store Keeper: Claude Gonzalez MD #### CDP #### [address] [place] [phone] Store Keeper: Hayden Cartagena MD Lymphocytes (Bld) [#/Vol] 1.62 10*3/uL Normal 1.10-3.70 [facility] Comment on above: Performed By: #### A HCV, HBS, LISA, GLYHGB, HIVCMB, TREP #### [address] [address] Store Keeper: Claude Gonzalez MD #### CDP #### [address] [place] [address] Store Keeper: Hayden Cartagena MD Lymphocytes/100 WBC (Bld) 19 % Low 24-43 [facility] Comment on above: Performed By: #### A HCV, HBS, LISA, GLYHGB, HIVCMB, TREP #### [place] [address] [place] [address] Store Keeper: Claude Gonzalez MD #### CDP #### [address] [place], [place] [phone] Store Keeper: Hayden Cartagena MD MCH (RBC) [Entitic mass] 32.1 pg Normal 25.2-33.5 [facility] Comment on above: Performed By: #### A HCV, HBS, LISA, GLYHGB, HIVCMB, TREP #### [address] [address] Store Keeper: Claude Gonzalez MD #### CDP #### [address] [place] [phone] Store Keeper: Hayden Cartagena MD MCHC (RBC) [Mass/Vol] 33.4 g/dL Normal 28.4-34.8 [facility] Comment on above: Performed By: #### A HCV, HBS, LISA, GLYHGB, HIVCMB, TREP #### [address] [address] Store Keeper: Claude Gonzalez MD #### CDP #### [address] [place] [phone] Store Keeper: Hayden Cartagena MD MCV (RBC) [Entitic vol] 96.0 fL Normal 82.6-102.9 [facility] Comment on above: Performed By: #### A HCV, HBS, LISA, GLYHGB, HIVCMB, TREP #### [address] [address] Store Keeper: Claude Gonzalez MD #### CDP #### [address] [place] [phone] Store Keeper: Hayden Cartagena MD Monocytes (Bld) [#/Vol] 0.51 10*3/uL Normal 0.10-1.20 [facility] Comment on above: Performed By: #### A HCV, HBS, LISA, GLYHGB, HIVCMB, TREP #### [address] [address] Store Keeper: Claude Gonzalez MD #### CDP #### [address] [place], [place] 7558383 Store Keeper: Hayden Cartagena MD Monocytes/100 WBC (Bld) 6 % Normal 3-12 [facility] Comment on above: Performed By: #### A HCV, HBS, LISA, GLYHGB, HIVCMB, TREP #### [address] [address] Store Keeper: Claude Gonzalez MD #### CDP #### [address] [place] [phone] Store Keeper: Hayden Cartagena MD Neutrophil (Seg) 75 % High 36-65 [facility] Comment on above: Performed By: #### A HCV, HBS, LISA, GLYHGB, HIVCMB, TREP #### [address] [address] Store Keeper: Claude Gonzalez MD #### CDP #### [address] [place], [place] 1744683 Store Keeper: Hayden Cartagena MD NRBC Automated 0.0 per 100 WBC Normal 0.0 [facility] Comment on above: Performed By: #### A HCV, HBS, LISA, GLYHGB, HIVCMB, TREP #### [address] [address] Store Keeper: Claude Gonzalez MD #### CDP #### [address] [place], [place] 2062383 Store Keeper: Hayden Cartagena MD Platelet mean volume (Bld) [Entitic vol] 10.3 fL Normal 8.1-13.5 [facility] Comment on above: Performed By: #### A HCV, HBS, LISA, GLYHGB, HIVCMB, TREP #### [address] [address] Store Keeper: Claude Gonzalez MD #### CDP #### [address] [place] [phone] Store Keeper: Hayden Cartagena MD Platelets (Bld) [#/Vol] 201 10*3/uL Normal 138-453 [facility] Comment on above: Performed By: #### A HCV, HBS, LISA, GLYHGB, HIVCMB, TREP #### [address] [address] Store Keeper: Claude Gonzalez MD #### CDP #### [address] [place] [phone] Store Keeper: Hayden Cartagena MD RBC (Bld) [#/Vol] 3.77 10*6/uL Low 3.95-5.11 [facility] Comment on above: Performed By: #### A HCV, HBS, LISA, GLYHGB, HIVCMB, TREP #### [address] [address] Store Keeper: Claude Gonzalez MD #### CDP #### [address] [place] [phone] Store Keeper: Hayden Cartagena MD WBC (Bld) [#/Vol] 8.4 10*3/uL Normal 3.5-11.3 [facility] Comment on above: Performed By: #### A HCV, HBS, LISA, GLYHGB, HIVCMB, TREP #### [place] [address] [place] [address] Store Keeper: Claude Gonzalez MD #### CDP #### [address] [place], [place] [phone] Store Keeper: Hayden Cartagena MD Hemoglobin A1Con 05-01-2023 Glucose [Mass/Vol] 85 mg/dL Normal [facility] Comment on above: Result Comment: The ADA and AACC recommend providing the estimated average glucose result to permit better patient understanding of their HBA1c result. Performed By: #### A HCV, HBS, LISA, GLYHGB, HIVCMB, TREP #### [address] [address] Store Keeper: Claude Gonzalez MD #### CDP #### [address] [place] [phone] Store Keeper: Hayden Cartagena MD HbA1c (Bld) [Mass fraction] 4.6 % Normal 4.0-6.0 [facility] Comment on above: Performed By: #### A HCV, HBS, LISA, GLYHGB, HIVCMB, TREP #### [place] [address] [place] [address] Store Keeper: Claude Gonzalez MD #### CDP #### [address] [place], [place] 0539183 Store Keeper: Hayden Cartagena MD Average glucose Estimated from glycated hemoglobin (Bld) [Mass/Vol] 85 mg/dL [facility] Comment on above: The ADA and AACC rec ommend providing the estimated average glucose result to permit better patient understanding of their HBA1c result. HbA1c (Bld) [Mass fraction] 4.6 % 4.0 - 6.0 % [facility] Hep B Surf Agon 05-01-2023 Hep B Surf Ag Non-Reactive Normal NR [facility] Comment on above: Performed By: #### A HCV, HBS, LISA, GLYHGB, HIVCMB, TREP #### [facility] [address] [place], [place] [phone] Store Keeper: Claude Gonzalez MD #### CDP #### [facility] [address] [place] [address] [place] [address] Store Keeper: Hayden Cartagena MD Hep C Abon 05-01-2023 Hep C Ab Non-Reactive Normal NR [facility] Comment on above: Result Comment: The hepatitis C procedure used in our laboratory is a Chemiluminescent test specific for three recombinant HCV antigens. A negative anti-HCV result indicates that the antibodies to hepatitis C virus are not present at this time. Individuals with reactive anti-HCV should be considered infected and infectious until proven otherwise. Confirmation of all equivocal or reactive results is recommended by ordering HCV RNA by PCR. Performed By: #### A HCV, HBS, LISA, GLYHGB, HIVCMB, TREP #### [place] [address] [place], [place] [phone] Store Keeper: Claude Gonzalez MD #### CDP #### [address] [place] [address] Store Keeper: Hayden Cartagena MD Hepatitis B Surface Antigeno n 05-01-2023 HBV surface Ag IA Ql Non-Reactive NONREACTIVE B [facility] Hepatitis C Antibodyon 04-30 HCV Ab IA Ql Non-Reactive NONREACTIVE [facility] Comment on above: The hepatitis C procedure used in our laboratory is a Chemiluminescent test specific for three recombinant HCV antigens. A negative anti-HCV result indicates that the antibodies to hepatitis C virus are not present at this time. Individuals with reactive anti-HCV should be considered infected and infectious until proven otherwise. Confirmation of all equivocal or reactive results is recommended by ordering HCV RNA by PCR. No Panel Informationon 04-30 [facility] Rubella Ab, IgGon 05-01-2023 Rubella Ab, IgG >500.[address] [facility] Comment on above: Result Comment: REFERENCE RANGE: <5.0 NON-REACTIVE (non-immune) 5.0 TO 9.9 EQUIVOCAL >=10.0 REACTIVE (immune) Performed By: #### A HCV, HBS, LISA, GLYHGB, HIVCMB, TREP #### [place] [address] [place], [place] [phone] Store Keeper: Claude Gonzalez MD #### CDP #### [facility] [address] [place] [address] [place] [address] Store Keeper: Hayden Cartagena MD Rubella antibody, IgGon - Rubella virus IgG IA Ql IU/mL B ON [facility] Comment on above: REFERENCE RANGE: <5.0 NON-REACTIVE (non-immune) 5.0 TO 9.9 EQUIVOCAL >=10.0 REACTIVE (immune) [facility] TYPE AND SCREENon 05-01-2023 ABO and Rh group Nom (Bld) Blood group O Rh(D) negative [facility] Blood Bank Sample Expiration 05/04/2023,2359 [facility] Blood group antibodies identified Nom Negative [facility] Type + Screenon 05-01-2023 Type + Screen Sample Expiration 05/04/2023,2359 ABO/Rh(D) O NEGATIVE Antibody Screen NEGATIVE Normal [facility] Comment on above: Performed By: #### T YS #### [address] [place] [address] Store Keeper: Hayden Cartagena MD Cult,Urineon 08-05-2022 Cult,Urine Specimen Description .VOIDED URINE Culture ESCHERICHIA COLI >[id number] CFU/ML Report Status FINAL 08/04/2022 SUSCEPTIBILITY Organism ESCHERICHIA COLI Method LEVI Ampicillin >=32 RESISTANT Cefazolin 16 INTERMEDIATE Cefazolin sensitivity results can be used to predict the effectiveness of oral cephalosporins (eg. Cephalexin) in uncomplicated Urinary Tract Infections due to E. coli, K. pneumoniae, and P. mirabilis Ceftriaxone <=0.25 SUSCEPTIBLE ESBL NEGATIVE Gentamicin <=1 SUSCEPTIBLE Levofloxacin <=0.12 SUSCEPTIBLE Nitrofurantoin <=16 SUSCEPTIBLE Piperacillin/Tazobac hudson <=4 SUSCEPTIBLE Tobramycin <=1 SUSCEPTIBLE Trimethoprim/Sulfa <=20 SUSCEPTIBLE Susceptible [facility] Comment on above: Performed By: #### U RAFAEL NEWMAN #### [facility] [address] [place] [address] Store Keeper: Hayden Cartagena MD CBC with Auto Differentialon 08-03-2022 Basophils (Bld) [#/Vol] 0.04 10*3/uL [facility] Basophils/100 WBC (Bld) 0 % 0 - 2 % B ON [facility] Eosinophils (Bld) [#/Vol] [facility] Eosinophils/100 WBC (Bld) 0 % Low 1 - 4 % [facility] Erythrocyte distribution width (RBC) [Ratio] 12.2 % 11.8 - 14.4 % [facility] Hematocrit (Bld) [Volume fraction] 39.4 % 36.3 - 47.1 % [facility] Hemoglobin (Bld) [Mass/Vol] 13.2 g/dL 11.9 - 15.1 g/dL [facility] Immature granulocytes (Bld) [#/Vol] [facility] Immature granulocytes/100 WBC (Bld) 0 % 0 [facility] Interpretation and review of laboratory results Abnormal [facility] Lymphocytes/100 WBC (Bld) 17 % Low 24 - 43 % [facility] Lymphocytes/100 WBC (Bld) 1.86 % [facility] MCH (RBC) [Entitic mass] 32.1 pg 25.2 - 33.5 pg [facility] MCHC (RBC) [Mass/Vol] 33.5 g/dL 28.4 - 34.8 g/dL [facility] MCV (RBC) [Entitic vol] 95.9 fL 82.6 - 102.9 fL [facility] Monocytes/100 WBC (Bld) 4 % 3 - 12 % B ON [facility] Monocytes/100 WBC (Bld) 0.42 % B ON [facility] Neutrophils/100 WBC (Bld) 79 % High 36 - 65 % [facility] NRBC Automated 0.0 0.0 per 100 WBC [facility] Platelet mean volume (Bld) [Entitic vol] 10.5 fL 8.1 - 13.5 fL [facility] Platelets (Bld) [#/Vol] 213 10*3/uL [facility] RBC (Bld) [#/Vol] 4.11 10*6/uL 3.95 - 5.1 1 m/uL [facility] Segmented neutrophils/100 WBC (Bld) 8.49 % High [facility] WBC other (Bld) [#/Vol] 10.8 B ON [facility] CBC with Diffon 08-03-2022 Abs. Basophil 0.04 k/uL Normal 0.00-0.20 [facility] Comment on above: Performed By: #### U AXCODYO #### [facility] [address] [place] [address] Dr. [place] [phone] Store Keeper: Hayden Cartagena MD Abs. Eosinophil <0.03 Normal 0.00-0.44 [facility] Comment on above: Performed By: #### U CODY NEWMANO #### [facility] [address] [place] [address] [place] [address] Store Keeper: Hayden Cartagena MD Abs.Imm.Granulocyte <0.03 Normal 0.00-0.30 [facility] Comment on above: Performed By: #### U AXPITOICAO #### [facility] [address] [place] [address] [place] [address] Store Keeper: Hayden Cartagena MD Abs.Neutrophil (Seg) 8.49 k/uL High 1.50-8.10 [facility] Comment on above: Performed By: #### U AXPITOICAO #### [facility] [address] [place] [address] [place] [address] Store Keeper: Hayden Cartagena MD Basophils/100 WBC (Bld) 0 % Normal 0-2 [facility] Comment on above: Performed By: #### U AXPITOICAO #### [facility] [address] [place], [place] [phone] Store Keeper: Hayden Cartagena MD Eosinophils/100 WBC (Bld) 0 % Low 1-4 [facility] Comment on above: Performed By: #### U AX, UMICAO #### [address] [place], [place] [id number] Store Keeper: Hayden Cartagena MD Erythrocyte distribution width (RBC) [Ratio] 12.2 % Normal 11.8-14.4 [facility] Comment on above: Performed By: #### U AX, UMICAO #### [address] [place], [facility]83 Store Keeper: Hayden Cartagena MD Hematocrit (Bld) [Volume fraction] 39.4 % Normal 36.3-47.1 [facility] Comment on above: Performed By: #### U AX, UMICAO #### [address] [place], [facility]83 Store Keeper: Hayden Cartagena MD Hemoglobin (Bld) [Mass/Vol] 13.2 g/dL Normal 11.9-15.1 [facility] Comment on above: Performed By: #### U AX, UMICAO #### [address] [place], [facility]83 Store Keeper: Hayden Cartagena MD Immature granulocytes/100 WBC (Bld) 0 % Normal 0 [facility] Comment on above: Performed By: #### U AX, UMICAO #### [address] [place], [place] [id number] Store Keeper: Hayden Cartagena MD Lymphocytes (Bld) [#/Vol] 1.86 10*3/uL Normal 1.10-3.70 [facility] Comment on above: Performed By: #### U AX, UMICAO #### [address] [place], [facility]83 Store Keeper: Hayden Cartagena MD Lymphocytes/100 WBC (Bld) 17 % Low 24-43 [facility] Comment on above: Performed By: #### U AX, UMICAO #### [facility] [address] [place], [place] [id number] Store Keeper: Hayden Cartagena MD MCH (RBC) [Entitic mass] 32.1 pg Normal 25.2-33.5 [facility] Comment on above: Performed By: #### U AX, UMICAO #### [facility] [address] [place], [facility]83 Store Keeper: Hayden Cartagena MD MCHC (RBC) [Mass/Vol] 33.5 g/dL Normal 28.4-34.8 [facility] Comment on above: Performed By: #### U AX, UMICAO #### [address] [place], [facility]83 Store Keeper: Hayden Cartagena MD MCV (RBC) [Entitic vol] 95.9 fL Normal 82.6-102.9 [facility] Comment on above: Performed By: #### U AX, UMICAO #### [address] [place], [facility]83 Store Keeper: Hayden Cartagena MD Monocytes (Bld) [#/Vol] 0.42 10*3/uL Normal 0.10-1.20 [facility] Comment on above: Performed By: #### U AX, UMICAO #### [facility] [address] [place], [facility]83 Store Keeper: Hayden Cartagena MD Monocytes/100 WBC (Bld) 4 % Normal 3-12 [facility] Comment on above: Performed By: #### U AX, UMICAO #### [facility] [address] [place], [facility]83 Store Keeper: Hayden Cartagena MD Neutrophil (Seg) 79 % High 36-65 [facility] Comment on above: Performed By: #### U AXPITOICAO #### [facility] [address] [place], [place] [id number] Store Keeper: Hayden Cartagena MD NRBC Automated 0.0 per 100 WBC Normal 0.0 [facility] Comment on above: Performed By: #### U AXPITOICAO #### [facility] [address] [place], [place] [id number] Store Keeper: Hayden Cartagena MD Platelet mean volume (Bld) [Entitic vol] 10.5 fL Normal 8.1-13.5 [facility] Comment on above: Performed By: #### U PITO NEWMANICAO #### [address] [place], [place] [id number] Store Keeper: Hayden Cartagena MD Platelets (Bld) [#/Vol] 213 10*3/uL Normal 138-453 [facility] Comment on above: Performed By: #### CODY MYLESO #### [address] [place], [place] [id number] Store Keeper: Hayden Cartagena MD RBC (Bld) [#/Vol] 4.11 10*6/uL Normal 3.95-5.11 [facility] Comment on above: Performed By: #### U AX UMICAO #### [facility] [address] [place], [place] [id number] Store Keeper: Hayden Cartagena MD WBC (Bld) [#/Vol] 10.8 10*3/uL Normal 3.5-11.3 [facility] Comment on above: Performed By: #### U AX UMICAO #### [facility] [address] [place], [place] [phone] Store Keeper: Hayden Cartagena MD CMPon 08-03-2022 Albumin [Mass/Vol] 4.6 g/dL 3.5 - 5.2 g/dL [facility] Albumin/Globulin [Mass ratio] 1.5 {ratio} 1.0 - 2.5 [facility] ALP [Catalytic activity/Vol] 79 U/L 35 - 104 U/L [facility] ALT [Catalytic activity/Vol] 9 U/L 5 - 33 U/L [facility] Anion gap [Moles/Vol] 11 mmol/L 9 - 17 mmol/L [facility] AST [Catalytic activity/Vol] 13 U/L NINF - 32 U/L [facility] Bilirubin [Mass/Vol] 1.1 mg/dL 0.3 - 1 .2 mg/dL [facility] Calcium [Mass/Vol] 10.0 mg/dL 8.6 - 10. 4 mg/dL [facility] Chloride [Moles/Vol] 104 mmol/L 98 - 10 7 mmol/L [facility] CO2 [Moles/Vol] 26 mmol/L 20 - 31 mmol/L [facility] Creatinine [Mass/Vol] 0.68 mg/dL 0.50 - 0.90 mg/dL [facility] GFR/1.73 sq M.predicted MDRD (S/P/Bld) [Vol rate/Area] - PINF [facility] Comment on above: These results are not intended for use in patients <18 years of age. eGFR results are calculated without a race factor using the 2020 CKD-EPI equation. Careful clinical correlation is recommended, particularly when comparing to results calculated using previous equations. The CKD-EPI equation is less accurate in patients with extremes of muscle mass, extra-renal metabolism of creatine, excessive creatine ingestion, or following therapy that affects renal tubular secretion. Glucose [Mass/Vol] 90 mg/dL 70 - 99 mg/dL [facility] Interpretation and review of laboratory results Abnormal [facility] Potassium [Moles/Vol] 3.4 mmol/L Low 3.7 - 5.3 mmol/L [facility] Protein [Mass/Vol] 7.7 g/dL 6.4 - 8.3 g/dL [facility] Sodium [Moles/Vol] 141 mmol/L 135 - 144 mmol/L [facility] Urea nitrogen [Mass/Vol] 6 mg/dL 6 - 20 mg/dL [facility] Urea nitrogen/Creatinine [Mass ratio] 9 mg/mg 9 - [address] [facility] [address] ABDOMEN PELVIS WO CONTRAS Ton 08-03-2022 CT ABDOMEN PELVIS WO CONTRAST EXAMINATION: CT OF THE ABDOMEN AND PELVIS WITHOUT CONTRAST 08/03/2022 8:29 am TECHNIQUE: CT of the abdomen and pelvis was performed without the administration of intravenous contrast. Multiplanar reformatted images are provided for review. Automated exposure control, iterative reconstruction, and/or weight based adjustment of the mA/kV was utilized to reduce the radiation dose to as low as reasonably achievable. COMPARISON: 04/24/2022 HISTORY: ORDERING SYSTEM PROVIDED HISTORY: left flank pain TECHNOLOGIST PROVIDED HISTORY: left flank pain Decision Support Exception - unselect if not a suspected or confirmed emergency medical condition->Emergency Medical Condition (MA) Is the patient ?->No FINDINGS: Lower Chest: The visualized heart and lungs show no acute abnormalities. Organs: The liver, spleen, pancreas and adrenal glands show no significant abnormality. Gallbladder is also grossly normal showing no evidence for gallstones. There are no renal calculi. There is no hydronephrosis. No ureteric calculi visualized. There are no bladder calculi. GI/Bowel: There is limited evaluation due to absence of oral contrast. The stomach shows no focal lesions. Small bowel loops normal in caliber showing no focal abnormalities. Normal appendix. Evaluation of the colon shows no acute process. Pelvis: Uterus and urinary bladder grossly normal. Peritoneum/Retroperi toneum: No free fluid or lymphadenopathy. Bones/Soft Tissues: No acute abnormality of the bones. The superficial soft tissues show no acute process. IMPRESSION: 1. No acute infective or inflammatory process. 2. No urinary tract calculi. 3. No bowel obstruction. Interpreted by: Cody Gregg MD Signed by: Cody Gregg MD 08/03/22 Final result Normal [facility] CT ABDOMEN PELVIS WO CONTRAS T Additional Contrast? Noneon 08-03-2022 1. No acute infective or inflammatory process. 2. No urinary tract calculi. 3. No bowel obstruction. PN RIS CONSOLIDATED EXAMINATION: CT OF THE ABDOMEN AND PELVIS WITHOUT CONTRAST 08/03/2022 8:29 am TECHNIQUE: CT of the abdomen and pelvis was performed without the administration of intravenous contrast. Multiplanar reformatted images are provided for review. Automated exposure control, iterative reconstruction, and/or weight based adjustment of the mA/kV was utilized to reduce the radiation dose to as low as reasonably achievable. COMPARISON: 04/24/2022 HISTORY: ORDERING SYSTEM PROVIDED HISTORY: left flank pain TECHNOLOGIST PROVIDED HISTORY: left flank pain Decision Support Exception - unselect if not a suspected or confirmed emergency medical condition->Emergency Medical Condition (MA) Is the patient ?->No FINDINGS: Lower Chest: The visualized heart and lungs show no acute abnormalities. Organs: The liver, spleen, pancreas and adrenal glands show no significant abnormality. Gallbladder is also grossly normal showing no evidence for gallstones. There are no renal calculi. There is no hydronephrosis. No ureteric calculi visualized. There are no bladder calculi. GI/Bowel: There is limited evaluation due to absence of oral contrast. The stomach shows no focal lesions. Small bowel loops normal in caliber showing no focal abnormalities. Normal appendix. Evaluation of the colon shows no acute process. Pelvis: Uterus and urinary bladder grossly normal. Peritoneum/Retroperi toneum: No free fluid or lymphadenopathy. Bones/Soft Tissues: No acute abnormality of the bones. The superficial soft tissues show no acute process. [facility] Cody Posey MD - 08/03/2022 EXAMINATION: CT OF THE ABDOMEN AND PELVIS WITHOUT CONTRAST 08/03/2022 8:29 am TECHNIQUE: CT of the abdomen and pelvis was performed without the administration of intravenous contrast. Multiplanar reformatted images are provided for review. Automated exposure control, iterative reconstruction, and/or weight based adjustment of the mA/kV was utilized to reduce the radiation dose to as low as reasonably achievable. COMPARISON: 04/24/2022 HISTORY: ORDERING SYSTEM PROVIDED HISTORY: left flank pain TECHNOLOGIST PROVIDED HISTORY: left flank pain Decision Support Exception - unselect if not a suspected or confirmed emergency medical condition->Emergency Medical Condition (MA) Is the patient ?->No FINDINGS: Lower Chest: The visualized heart and lungs show no acute abnormalities. Organs: The liver, spleen, pancreas and adrenal glands show no significant abnormality. Gallbladder is also grossly normal showing no evidence for gallstones. There are no renal calculi. There is no hydronephrosis. No ureteric calculi visualized. There are no bladder calculi. GI/Bowel: There is limited evaluation due to absence of oral contrast. The stomach shows no focal lesions. Small bowel loops normal in caliber showing no focal abnormalities. Normal appendix. Evaluation of the colon shows no acute process. Pelvis: Uterus and urinary bladder grossly normal. Peritoneum/Retroperi toneum: No free fluid or lymphadenopathy. Bones/Soft Tissues: No acute abnormality of the bones. The superficial soft tissues show no acute process. IMPRESSION: 1. No acute infective or inflammatory process. 2. No urinary tract calculi. 3. No bowel obstruction. [employer] [facility] Dwllr Phone: Radiology Study observation (narrative) [employer] [facility] Dwllr Phone: CT ABDOMEN PELVIS WO CONTRAS T Additional Contrast? NoneOrdered By: Cody Gregg on 08-03-2022 [facility] Dw[employer] Phone: Comp Metabolic Profon 2022 Albumin [Mass/Vol] 4.6 g/dL Normal 3.5-5.2 [facility] Comment on above: Performed By: #### RAFAEL MYLES #### [facility] [address] [place] [address] [place] [address] Store Keeper: Hayden Cartagena MD Albumin/Glob Ratio 1.5 Normal 1.0-2.5 [facility] Comment on above: Performed By: #### RAFAEL MYLES #### [facility] [address] [place] [address] Store Keeper: Hayden Cartagena MD Alkaline Phos 79 U/L Normal 35-104 [facility] Comment on above: Performed By: #### RAFAEL MYLES #### [facility] [address] [place] [address] Store Keeper: Hayden Cartagena MD ALT [Catalytic activity/Vol] 9 U/L Normal 5-33 [facility] Comment on above: Performed By: #### U AX, UMICAO #### [facility] [address] [place], [place] [phone] Store Keeper: Hayden Cartagena MD Anion gap [Moles/Vol] 11 mmol/L Normal 9-17 [facility] Comment on above: Performed By: #### U AX, UMICAO #### [facility] [address] [place], [place] [phone] Store Keeper: Hayden Cartagena MD AST [Catalytic activity/Vol] 13 U/L Normal <32 [facility] Comment on above: Performed By: #### U AX, UMICAO #### [facility] [address] [place], [place] 04[address]83 Store Keeper: Hayden Cartagena MD Bilirubin [Mass/Vol] 1.1 mg/dL Normal 0.3-1.2 [facility] Comment on above: Performed By: #### U AX, UMICAO #### [facility] [address] [place] [address] [place]. [place], [place] [address] Store Keeper: Hayden Cartagena MD BUN/CRE Ratio 9 Normal 9-20 [facility] Comment on above: Performed By: #### U AX, UMICAO #### [facility] [address] [place], [place] 3339183 Store Keeper: Hayden Cartagena MD Calcium [Mass/Vol] 10.0 mg/dL Normal 8.6-10.4 [facility] Comment on above: Performed By: #### U AX, UMICAO #### [facility] [address] [place], [place] [phone] Store Keeper: Hayden Cartagena MD Chloride [Moles/Vol] 104 mmol/L Normal 98-107 [facility] Comment on above: Performed By: #### U AX, UMICAO #### [facility] [address] [place] [address] Store Keeper: Hayden Cartagena MD CO2 [Moles/Vol] 26 mmol/L Normal 20-31 [facility] Comment on above: Performed By: #### U AXPITOICAO #### [facility] [address] [place] [address] Store Keeper: Hayden Cartagena MD Creatinine [Mass/Vol] 0.68 mg/dL Normal 0.50-0.90 [facility] Comment on above: Performed By: #### U AXPITOICAO #### [facility] [address] [place] [address] Store Keeper: Hayden Cartagena MD GFR/1.73 sq M.predicted among non-blacks MDRD (S/P/Bld) [Vol rate/Area] mL/min/{1.73_m2} Normal >60 [facility] Comment on above: Result Comment: These results are not intended for use in patients <18 years of age. eGFR results are calculated without a race factor using the 2020 CKD-EPI equation. Careful clinical correlation is recommended, particularly when comparing to results calculated using previous equations. The CKD-EPI equation is less accurate in patients with extremes of muscle mass, extra-renal metabolism of creatine, excessive creatine ingestion, or following therapy that affects renal tubular secretion. Performed By: #### U AXPITOICAO #### [facility] [address] [place] [address] Store Keeper: Hayden Cartagena MD Glucose [Mass/Vol] 90 mg/dL Normal 70-99 [facility] Comment on above: Performed By: #### U AX UMICAO #### [facility] [address] [place] [address] Store Keeper: Hayden Cartagena MD Potassium [Moles/Vol] 3.4 mmol/L Low 3.7-5.3 [facility] Comment on above: Performed By: #### U AXPITOICAO #### [facility] [address] [place] [phone] Store Keeper: Hayden Cartagena MD Protein [Mass/Vol] 7.7 g/dL Normal 6.4-8.3 [facility] Comment on above: Performed By: #### U AX, UMICAO #### [facility] [address] [place], [place] [address]83 Store Keeper: Haydne Cartagena MD Sodium [Moles/Vol] 141 mmol/L Normal 135-144 [facility] Comment on above: Performed By: #### U AX, UMICAO #### [facility] [address] [place] [address] Store Keeper: Hayden Cartagena MD Urea nitrogen [Mass/Vol] 6 mg/dL Normal 6-20 [facility] Comment on above: Performed By: #### U AX, UMICAO #### [facility] [address] [place] [id number] Store Keeper: Hayden Cartagena MD HCG, Quanton 08-03-2022 HCG, Quant <1 Normal <5 [facility] Comment on above: Result Comment: Non-preg premeno <=5 Postmeno <=8 Male <=3 If HCG results do not concur with clinical observations, additional testing to confirm results is recommended. Performed By: #### U AX, UMICAO #### [facility] [address] [place] [id number] Store Keeper: Hayden Cartagena MD Microscopic Urinalysison Bacteria LM Ql (Urine sed) 4+ Abnormal None [facility] Epithelial cells LM.HPF (Urine sed) [#/Area] 10 TO 20 [facility] Interpretation and review of laboratory results Abnormal [facility] RBC LM.HPF (Urine sed) [#/Area] 10 TO 20 [facility] WBC LM.HPF (Urine sed) [#/Area] 20 TO 50 [facility] UA w/Reflex Cultureon 2022 Bilirubin, SemiQt,Ur Negative Normal NEG [facility] Comment on above: Performed By: #### U AX, UMICAO #### [facility] [address] [place] [address] [place]. [place], [place] [address]83 Store Keeper: Hayden Cartagena MD Blood, Urine 3+ Abnormal NEG [facility] Comment on above: Performed By: #### U AX, UMICAO #### [facility] [address] [place] [address] [place]. [place], [place] [phone] Store Keeper: Hayden Cartagena MD Clarity (U) Cloudy Abnormal CLEAR [facility] Comment on above: Performed By: #### U AX, UMICAO #### [facility] [address] [place] [address] [place]. [place], [place] 9569983 Store Keeper: Hayden Cartagena MD Color (U) Yellow Normal YEL [facility] Comment on above: Performed By: #### U AX, UMICAO #### [facility] [address] [place] [address] Dr. [place], [place] 1816283 Store Keeper: Hayden Cartagena MD Glucose Ql (U) Negative Normal NEG [facility] Comment on above: Performed By: #### U AX, UMICAO #### [address] [place] [address] Store Keeper: Hayden Cartagena MD Ketones Ql (U) Negative Normal NEG [facility] Comment on above: Performed By: #### U AX, UMICAO #### [facility] [address] [place] [address] [place] [address] Store Keeper: Hayden Cartagena MD Leukocyte esterase Test strip Ql (U) SMALL Abnormal NEG [facility] Comment on above: Performed By: #### U AX, UMICAO #### [facility] [address] [place] [address] Dr. [place], [place] 45[address]83 Store Keeper: Hayden Cartagena MD Nitrite,Ur Positive Abnormal NEG [facility] Comment on above: Performed By: #### U AX, UMICAO #### [facility] [address] [place], [place] [address]79883 Store Keeper: Hayden Cartagena MD PH,Ur 6.0 Normal 5.0-9.0 [facility] Comment on above: Performed By: #### U AX, UMICAO #### [facility] [address] [place] [address] [place] [address] Store Keeper: Hayden Cartagena MD Protein Ql (U) 2+ Abnormal NEG [facility] Comment on above: Performed By: #### U AX, UMICAO #### [facility] [address] [place] [address] [place]. [place], [place] 3834883 Store Keeper: Hayden Cartagena MD Spec. [place],Ur 1.025 High 1.010-1.020 [facility] Comment on above: Performed By: #### U AX, UMICAO #### [facility] [address] [place] [address] Dr. [place], [place] 9589383 Store Keeper: Hayden Cartagena MD Urobilinogen,Ur Normal Normal NORM [facility] Comment on above: Performed By: #### U AX, UMICAO #### [address] [place], [place] [phone] Store Keeper: Hayden Cartagena MD Urinalysis with Reflex to Cu ltureon 08-03-2022 Bilirubin Ql (U) Negative NEGATIVE [facility] Clarity (U) Cloudy Abnormal Clear [facility] Color (U) Yellow Yellow [facility] Glucose Test strip (U) [Mass/Vol] Negative NEGATIVE [facility] Hemoglobin Auto test strip Ql (U) 3+ Abnormal NEGATIVE [facility] Interpretation and review of laboratory results Abnormal [facility] Ketones (U) [Mass/Vol] Negative NEGATIVE [facility] Leukocyte esterase Test strip Ql (U) SMALL Abnormal NEGATIVE [facility] Nitrite Ql (U) Positive Abnormal NEGATIVE [facility] pH (U) 6.0 [pH] 5.0 - 9.0 [facility] Protein (U) [Mass/Vol] 2+ Abnormal NEGATIVE [facility] Specific gravity (U) [Rel density] 1.025 High 1.010 - 1.020 [facility] Urobilinogen Qn (U) Normal Normal [facility] Urinalysis,Microon 3 Bacteria 4+ Abnormal NONE [facility] Comment on above: Performed By: #### U AX, UMICAO #### [facility] [address] [place] [address] Store Keeper: Hayden Cartagena MD Epithelial cells LM Ql (Urine sed) 10 TO 20 Normal 0-25 [facility] Comment on above: Performed By: #### U AX, UMICAO #### [facility] [address] [place] [address] Store Keeper: Hayden Cartagena MD Urine RBC's 10 TO 20 Normal 0-2 [facility] Comment on above: Performed By: #### U AX, UMICAO #### [facility] [address] [place] [address] Store Keeper: Hayden Cartagena MD Urine WBC's 20 TO 50 Normal 0-5 [facility] Comment on above: Performed By: #### U AX, UMICAO #### [facility] [address] [place] [address] Store Keeper: Hayden Cartagena MD hCG, quantitative, on 08-03-2022 hCG Quant NINF [facility] Comment on above: Non-preg premeno <=5 Postmeno <=8 Male <=3 If HCG results do not concur with clinical observations, additional testing to confirm results is recommended. [facility] DUSTIN JASMINA DIGITAL DIAGNOSTIC BILATERALon 06-03-2022 Radiology Study observation (narrative) [facility] Work Phone: No Panel Informationon 06-03 1. Negative bilateral mammogram. 2. No evidence for a discrete abscess or cellulitis in the periareolar right breast, for which clinical follow-up is recommended. BI-RADS 2 BIRADS: BIRADS - CATEGORY 2 Benign Findings. OVERALL ASSESSMENT - BENIGN A letter of notification will be sent to the patient regarding the results. [employer] recommends annual mammograms for women 40 years and older. [facility] CONSOLIDATED EXAMINATION: DIAGNOSTIC DIGITAL BILATERAL BREASTS MAMMOGRAM WITH TOMOSYNTHESIS; TARGETED ULTRASOUND OF THE RIGHT BREAST, 06/03/2022 10:45 am TECHNIQUE: Diagnostic mammography of the bilateral breasts was performed with tomosynthesis. 2D standard and 3D tomosynthesis combination imaging performed through both breasts. Computer aided detection was utilized in the interpretation of this exam.; Targeted ultrasound of the right breast was performed. Views: Cc and MLO views with tomosynthesis. COMPARISON: None. HISTORY: ORDERING SYSTEM PROVIDED HISTORY: Abscess of female breast TECHNOLOGIST PROVIDED HISTORY: Is the patient ?->No The patient reports history of multiple abscesses in the subareolar right breast, recently treated with surgery. Persistent mild drainage reported in this area but no pain, redness or discrete palpable area of concern. Request for exclusion of recurrent abscess and bilateral mammographic screening. FINDINGS: DIAGNOSTIC MAMMOGRAM: Scattered fibroglandular tissue. No mass, distortion or suspicious microcalcification identified. TARGETED ULTRASOUND: Targeted ultrasound was performed in the retroareolar right breast, which reveals nonspecific shadowing in the retroareolar location likely due to slight retraction of the nipple related to surgery. Measurements of the nipple were placed by the technologist on this exam however there is no suspicious mass on this exam. No definable fluid collection or subcutaneous edema appreciated. No duct dilatation identified. [facility] CONSOLIDATED No Panel InformationOrdered By: Matt Sharma on 06-03-2022 [employer] Work Phone: US BREAST LIMITED RIGHTon Radiology Study observation (narrative) [employer] Phone: CBC with Auto Differentialon 04-24-2022 Absolute Eos # [id number] theAudience Absolute Immature Granulocyte 0.05 [employer] Absolute Lymph # 0.56 Low [facility] Absolute [place] # 0.78 [facility] Basophils (Bld) [#/Vol] 0.04 10*3/uL [facility] Basophils/100 WBC (Bld) 0 % 0 - 2 % B ON [facility] Eosinophils/100 WBC (Bld) 0 % Low 1 - 4 % [facility] Hematocrit (Bld) [Volume fraction] 43.7 % 36.3 - 47.1 % [facility] Hemoglobin (Bld) [Mass/Vol] 15.6 g/dL High 11.9 - 15.1 g/dL [facility] Immature granulocytes/100 WBC (Bld) 0 % 0 [facility] Interpretation and review of laboratory results Abnormal [facility] Lymphocytes/100 WBC (Bld) 4 % Low 24 - 43 % [facility] MCH (RBC) [Entitic mass] 33.1 pg 25.2 - 33.5 pg [facility] MCHC (RBC) [Mass/Vol] 35.7 g/dL High 28.4 - 34.8 g/dL [facility] MCV (RBC) [Entitic vol] 92.8 fL 82.6 - 102.9 fL [facility] Monocytes/100 WBC (Bld) 5 % 3 - 12 % B ON [facility] NRBC Automated 0.0 0.0 per 100 WBC [facility] Platelet distribution width (Bld) [Ratio] 12.3 % 11.8 - 14.4 % [facility] Platelet mean volume (Bld) [Entitic vol] 10.5 fL 8.1 - 13.5 fL [facility] Platelets (Bld) [#/Vol] 174 10*3/uL [facility] RBC (Bld) [#/Vol] 4.71 10*6/uL 3.95 - 5.1 1 m/uL [facility] Segmented neutrophils/100 WBC (Bld) 91 % High 36 - 65 % [facility] Segs Absolute 13.82 High [facility] WBC (Bld) [#/Vol] 15.3 10*3/uL High [facility] CMPon 04-24-2022 Albumin [Mass/Vol] 4.8 g/dL 3.5 - 5.2 g/dL [facility] Albumin/Globulin [Mass ratio] 1.6 {ratio} 1.0 - 2.5 [facility] ALP [Catalytic activity/Vol] 87 U/L 35 - 104 U/L [facility] ALT [Catalytic activity/Vol] 19 U/L 5 - 33 U/L [facility] Anion gap [Moles/Vol] 17 mmol/L 9 - 17 mmol/L [facility] AST [Catalytic activity/Vol] 23 U/L NINF - 32 U/L [facility] Bilirubin [Mass/Vol] 1.0 mg/dL 0.3 - 1 .2 mg/dL [facility] Calcium [Mass/Vol] 10.4 mg/dL 8.6 - 10. 4 mg/dL [facility] Chloride [Moles/Vol] 105 mmol/L 98 - 10 7 mmol/L [facility] CO2 [Moles/Vol] 19 mmol/L Low 20 - 31 mmol/L [facility] Creatinine [Mass/Vol] 0.84 mg/dL 0.50 - 0.90 mg/dL [facility] GFR/1.73 sq M.predicted MDRD (S/P/Bld) [Vol rate/Area] - PINF [facility] Comment on above: These results are not intended for use in patients <18 years of age. eGFR results are calculated without a race factor using the 2020 CKD-EPI equation. Careful clinical correlation is recommended, particularly when comparing to results calculated using previous equations. The CKD-EPI equation is less accurate in patients with extremes of muscle mass, extra-renal metabolism of creatine, excessive creatine ingestion, or following therapy that affects renal tubular secretion. Glucose [Mass/Vol] 151 mg/dL High 70 - 99 mg/dL [facility] Interpretation and review of laboratory results Abnormal [facility] Potassium [Moles/Vol] 3.9 mmol/L 3.7 - 5.3 mmol/L [facility] Protein [Mass/Vol] 7.8 g/dL 6.4 - 8.3 g/dL [facility] Sodium [Moles/Vol] 141 mmol/L 135 - 144 mmol/L [facility] Urea nitrogen [Mass/Vol] 9 mg/dL 6 - 20 mg/dL [facility] Urea nitrogen/Creatinine (Bld) [Mass ratio] 11 9 - [address] [facility] [address] ABDOMEN PELVIS W IV CONTR AST Additional Contrast? Noneon 04-24-2022 Fluid within the colon is consistent with a diarrheal illness clinically. Otherwise, no acute intra-abdominal or pelvic abnormality [facility] EXAMINATION: CT OF THE ABDOMEN AND PELVIS WITH CONTRAST 04/24/2022 1:21 pm TECHNIQUE: CT of the abdomen and pelvis was performed with the administration of intravenous contrast. Multiplanar reformatted images are provided for review. Automated exposure control, iterative reconstruction, and/or weight based adjustment of the mA/kV was utilized to reduce the radiation dose to as low as reasonably achievable. COMPARISON: None. HISTORY: ORDERING SYSTEM PROVIDED HISTORY: Nausea vomiting diarrhea intermittent abdominal pain TECHNOLOGIST PROVIDED HISTORY: Nausea vomiting diarrhea intermittent abdominal pain Decision Support Exception - unselect if not a suspected or confirmed emergency medical condition->Emergency Medical Condition (MA) FINDINGS: Lower Chest: The lung bases are clear Organs: The solid organs of the abdomen are unremarkable.There is no evidence of urinary tract obstruction.The gallbladder is unremarkable. GI/Bowel: There is fluid within the colon consistent with diarrheal illness clinically. Otherwise, There is no evidence of bowel wall thickening, inflammation or free fluid. There is no bowel obstruction. The appendix is unremarkable. Pelvis: There is no free fluid. The urinary bladder is unremarkable. Peritoneum/Retroperi toneum: The abdominal aorta and iliac arteries are normal in caliber.There is no pathologic adenopathy. Bones/Soft Tissues: No acute abnormality [facility] Rogelio Lima MD - 04/24/2022 EXAMINATION: CT OF THE ABDOMEN AND PELVIS WITH CONTRAST 04/24/2022 1:21 pm TECHNIQUE: CT of the abdomen and pelvis was performed with the administration of intravenous contrast. Multiplanar reformatted images are provided for review. Automated exposure control, iterative reconstruction, and/or weight based adjustment of the mA/kV was utilized to reduce the radiation dose to as low as reasonably achievable. COMPARISON: None. HISTORY: ORDERING SYSTEM PROVIDED HISTORY: Nausea vomiting diarrhea intermittent abdominal pain TECHNOLOGIST PROVIDED HISTORY: Nausea vomiting diarrhea intermittent abdominal pain Decision Support Exception - unselect if not a suspected or confirmed emergency medical condition->Emergency Medical Condition (MA) FINDINGS: Lower Chest: The lung bases are clear Organs: The solid organs of the abdomen are unremarkable.There is no evidence of urinary tract obstruction.The gallbladder is unremarkable. GI/Bowel: There is fluid within the colon consistent with diarrheal illness clinically. Otherwise, There is no evidence of bowel wall thickening, inflammation or free fluid. There is no bowel obstruction. The appendix is unremarkable. Pelvis: There is no free fluid. The urinary bladder is unremarkable. Peritoneum/Retroperi toneum: The abdominal aorta and iliac arteries are normal in caliber.There is no pathologic adenopathy. Bones/Soft Tissues: No acute abnormality IMPRESSION: Fluid within the colon is consistent with a diarrheal illness clinically. Otherwise, no acute intra-abdominal or pelvic abnormality [facility] Work Phone: Radiology Study observation (narrative) [facility] [employer] Work Phone: CT ABDOMEN PELVIS W IV CONTR AST Additional Contrast? NoneOrdered By: Rogelio Lima on 04-24-2022 [facility] Work Phone: Lactic Acidon 04-24-2022 Lactate (P samantha) [Moles/Vol] 2.1 mmol/L 0.5 - 2.2 mmol/L [facility] Lipaseon 04-24-2022 Lipase [Catalytic activity/Vol] 24 U/L 13 - 60 U/L [facility] [employer] [facility] Microscopic Urinalysison Bacteria, UA 1+ Abnormal None [facility] Epithelial Cells UA 5 TO 10 [facility] Interpretation and review of laboratory results Abnormal [facility] Mucus, UA 1+ Abnormal None [facility] [employer] [facility] RBC clumps Auto (Urine sed) [#/Area] None [facility] WBC, UA 0 TO 2 [facility] No Panel Informationon 04-24 [facility] Urinalysison 04-24-2022 Bilirubin Urine Negative NEGATIVE [facility] Color, UA Yellow Yellow [facility] Glucose Auto test strip (U) [Mass/Vol] Negative NEGATIVE [facility] Interpretation and review of laboratory results Abnormal [facility] Ketones (U) [Mass/Vol] 2+ Abnormal NEGATIVE [facility] Leukocyte esterase Auto test strip Ql (U) Negative NEGATIVE [facility] Nitrite Auto test strip Ql (U) Negative NEGATIVE [facility] Protein (U) [Mass/Vol] 5.0 - 9.0 [facility] Protein (U) [Mass/Vol] Negative NEGATIVE [facility] Specific [place], UA 1.010 1.010 - 1.[address] [facility] Turbidity UA SLIGHTLY CLOUDY Abnormal Clear [facility] Urine Hgb Negative NEGATIVE [facility] Urobilinogen, Urine Normal Normal [facility] , urineon 3 Beta HCG ( test) Ql (U) Negative NEGATIVE [facility] Comment on above: Specimens with hCG l evels near the threshold of the test (25 mIU/mL) may give a negative or indeterminate result. In such cases, another test should be performed with a new specimen in 48-72 hours. If early is suspected clinically in this setting, correlation with quantitative serum b-hCG level is suggested. [employer] has confirmed the use of plasma for this test. This has not been cleared or approved by the U.S. Food and Drug Administration. The FDA has determined that such clearance is not necessary. [facility] Cholesterol [Mass/volume] in Serum or PlasmaOrdered By: Feliberto Faust on 10-27-2021 Cholesterol [Mass/Vol] 102 mg/dL 140-200 [facility] Comment on above: Chol less than 200 m g/dl low risk Chol 201-239 mg/dl borderline risk Chol 240 mg/dl and greater high risk Cholesterol in LDL Calc [Mas s/Vol]Ordered By: Feliberto Faust on 10-27-2021 Cholesterol in LDL [Mass/Vol] 58 mg/dL 0-100 [facility] Comment on above: LDL ATP III CLASSIFI CATION LDL less than 100 mg/dL Optimal LDL 100-129 mg/dL Near or above optimal LDL 130-159 mg/dL Borderline high LDL 160-189 mg/dL High LDL greater than 189 mg/dL Very high Cholesterol in VLDL Calc [Ma ss/Vol]Ordered By: Feliberto Faust on 10-27-2021 Cholesterol in VLDL [Mass/Vol] 13 mg/dL [facility] ECG 12 lead ECGon 10-27-2021 ECG 12 lead ECG [facility] [address] [place] [address] Electrocardiograph Report Signed Patient: Bennett Vaughn MR#: [id number] 7 : 1995 Acct:[id number] Age/Sex: 26 / F ADM Date: 10/26/21 Loc: Room: [address] [place] [address] Type: DIS IN Attending Dr: Feliberto Faust MD Ordering Provider: Feliberto Faust MD Date of Service: 10/27/21 ECG/ECG 12 lead ECG: antipsychotics Copies to: Test Reason : Blood Pressure : / mmHG Vent. Rate : 052 BPM Atrial Rate : 052 BPM P-R Int : 100 ms QRS Dur : 090 ms QT Int : 448 ms P-R-T Axes : 057 082 063 degrees QTc Int : 416 ms Sinus bradycardia with short NH Otherwise normal ECG When compared with ECG of 10-APR-2019 09:44, Vent. rate has decreased BY 29 BPM Confirmed by PAYAM LIVINGSTON DO ([id number]) on 10/27/2021 1:03:16 PM Referred By: Electronically Signed By:PAYAM LIVINGSTON DO Transcribed By: MUS Signed By Payam Livingston DO 10/27 1303 Normal [facility] Lipid Panelon 10-27-2021 Cholesterol [Mass/Vol] 102 mg/dL Low 140-200 [facility] Comment on above: Result Comment: Chol less than 200 mg/dl low risk Chol 201-239 mg/dl borderline risk Chol 240 mg/dl and greater high risk Performed By: #### L IPID, TSH3 wRFLX, [id number] #### [address] Cholesterol in HDL [Mass/Vol] 30 mg/dL Low 35-85 [facility] Comment on above: Result Comment: HDL CHOL ATP-III CLASSIFICATION Cardiovascular Risk HDL > or equal to 60 mg/dL LOW HDL < 40 mg/dL HIGH Performed By: #### L IPID, TSH3 wRFLX, [id number] #### [facility] [address] [place], [place] [address] Cholesterol.total/Fanny sterol in HDL [Mass ratio] 3.4 {ratio} Normal <5.0 [facility] Comment on above: Performed By: #### L IPID, TSH3 wRFLX, [id number] #### [facility] [address] LDL Cholesterol,Calculated 58 mg/dL Normal 0-100 [facility] Comment on above: Result Comment: LDL ATP III CLASSIFICATION LDL less than 100 mg/dL Optimal LDL 100-129 mg/dL Near or above optimal LDL 130-159 mg/dL Borderline high LDL 160-189 mg/dL High LDL greater than 189 mg/dL Very high Performed By: #### L IPID, TSH3 wRFLX, [id number] #### [facility] [address] [place] [id number] [facility] Triglyceride w/Reflex 68 mg/dL Normal 35-149 [facility] Comment on above: Result Comment: TRIG ATP III CLASSIFICATION TRIG less than 150 mg/dL Normal TRIG 150-199 mg/dL Borderline high TRIG 200-500 mg/dL High TRIG greater than 500 mg/dL Very high Standard traceable to the Center for Disease Conrtrol and Prevention (CDC) test method. Performed By: #### L IPID, TSH3 wRFLX, [id number] #### [facility] [address] [place] [address] [facility] VLDL CHOLESTEROL 13 mg/dL Normal [facility] Comment on above: Performed By: #### L IPID, TSH3 wRFLX, [id number] #### [facility] [address] [place] [id number] [facility] No Panel InformationOrdered By: Feliberto Faust on 10-27-2021 25-Hydroxy Vitamin D Total 36.4 ng/mL 30-100 [facility] Comment on above: VITAMIN D STATUS 25( [place])VITAMIN D RANGE (ng/mL) Deficient <20 Insufficient 20 to <30 Sufficient 30 to 100 Reference: Kath MF,Ramón BECERRIL, Teetee DAVIS, et al. Evaluation,treatment, and prevention of vitamin D deficiency; an Endocrine Society clinical practice guideline. JCEM. 2010; 96(7):1911-30. Serum or plasma high density lipoprotein (HDL) cholesterol measurementOrdered By: Feliberto Faust on 10-27-2021 Cholesterol in HDL [Mass/Vol] 30 mg/dL 35-85 [facility] Comment on above: HDL CHOL ATP-III CLA SSIFICATION Cardiovascular Risk HDL > or equal to 60 mg/dL LOW HDL < 40 mg/dL HIGH Serum or plasma total choles terol/high density lipoprotein (HDL) cholesterol mass ratOrdered By: Feliberto Faust on 10-27-2021 Cholesterol.total/Fanny sterol in HDL [Mass ratio] 3.4 {ratio} <5.0 [facility] TSH DL <= 0.005 mIU/L QnOrde red By: Feliberto Faust on 10-27-2021 TSH Qn 1.28 m[IU]/L 0.45-5.33 [facility] Thyroid Stim Hormone w/Rflxo n 10-27-2021 Thyroid Stim Hormone w/Rflx 1.28 u[iU]/mL Normal 0.45-5.33 [facility] Comment on above: Performed By: #### L IPID, TSH3 wRFLX, [id number] #### [facility] [address] Triglyceride [Mass/volume] i n Serum or PlasmaOrdered By: Feliberto Faust on 10-27-2021 Triglyceride [Mass/Vol] 68 mg/dL 35-149 [facility] Comment on above: TRIG ATP III CLASSIF ICATION TRIG less than 150 mg/dL Normal TRIG 150-199 mg/dL Borderline high TRIG 200-500 mg/dL High TRIG greater than 500 mg/dL Very high Standard traceable to the Center for Disease Conrtrol and Prevention (CDC) test method. Vitamin D 25 Hydroxy Totalon 10-27-2021 Vitamin D 25 Hydroxy Total 36.4 ng/mL Normal 30-100 [facility] Comment on above: Result Comment: KELSEY MIN D STATUS 25([place])VITAMIN D RANGE (ng/mL) Deficient <20 Insufficient 20 to <30 Sufficient 30 to 100 Reference: Kath MF,Ramón NC, Teetee DAVIS, et al. Evaluation,treatment, and prevention of vitamin D deficiency; an Endocrine Society clinical practice guideline. JCEM. 2010; 96(7):1911-30. PERFORMED BY: [place] [address] PATHOLOGIST MATCH MARKER JAMES MCNAIR M.D. Performed By: #### C BC, ETOH, CMP #### [facility] [address] [place] [address] [place] Albumin [Mass/volume] in Ser um or PlasmaOrdered By: Ed Amaral on 10-26-2021 Albumin [Mass/Vol] 4.0 g/dL 3.2-5.5 [facility] Amphetamine Screen Ql (U)Ord ered By: Ed Amaral on 10-26-2021 Amphetamines Ql (U) Negative Negative [facility] Automated erythrocytes count in urine sediment (number/area)Ordered By: Ed Amaral on 10-26-2021 RBC Auto (Urine sed) [#/Area] 0-1 [HPF] 0-4 [facility] Automated leukocytes count i n urine sediment (number/area)Ordered By: Ed Amaral on 10-26-2021 WBC Auto (Urine sed) [#/Area] 1-2 [HPF] 0-4 [facility] Automated urine color determ inationOrdered By: Ed Amaral on 10-26-2021 Color (U) Yellow Normal Yellow [facility] Comment on above: Order Comment: Name Collection Type:: Clean-Voided Midstream Performed By: #### S OFDEAN, URDS, ADDONUAPLUS, UHCG, COVID-19 FELI #### [facility] [address] [place] [address] [place] Barbiturates [Presence] in U rineOrdered By: Ed Amaral on 10-26-2021 Barbiturates Ql (U) Negative Negative [facility] Basophils Auto (Bld) [#/Vol] Ordered By: Ed Amaral on 10-26-2021 Basophils (Bld) [#/Vol] 0.1 10*3/uL 0.0-0.2 [facility] Basophils/100 WBC Auto (Bld) Ordered By: Ed Amaral on 10-26-2021 Basophils/100 WBC (Bld) 0.8 % . [facility] Benzodiazepines [Presence] i n UrineOrdered By: Ed Amaral on 10-26-2021 Benzodiazepines Ql (U) Negative Negative [facility] Bilirubin Test strip Ql (U)O rdered By: Ed Amaral on 10-26-2021 Bilirubin Ql (U) Negative Negative [facility] Blood hemoglobin measurement (mass/volume)Ordered By: Ed Amaral on 10-26-2021 Hemoglobin (Bld) [Mass/Vol] 13.3 g/dL 11.8-15.4 [facility] Blood leukocytes automated c ount (number/volume)Ordered By: Ed Amaral on 10-26-2021 WBC (Bld) [#/Vol] 10.2 10*3/uL 4.5-11.0 [facility] COVID-19 Antigenon 2 COVID-19 Antigen Healthcare Worker?: N Reference Range: Negative Negative results, from patients with symptom onset beyond five days, should be treated as presumptive and confirmation with a molecular assay, if necessary, for patient management, may be performed. Negative results do not rule out COVID-19 and should not be used as the sole basis for treatment or patient management decisions, including infection control decisions. Negative results should be considered in the context of a patient's recent exposures, history and the presence of clinical signs and symptoms consistent with COVID-19. The Feli SARS Antigen ERNESTO does not differentiate between SARS-CoV and SARS-CoV-2. This test was developed and its performance characteristic determined by [employer] and validated at [facility]. This test has not been FDA cleared or approved. This test has been authorized by FDA under an Emergency Use Authorization (EUA). This test has been validated in accordance with the FDA's Guidance Document (Policy for Diagnostics Testing in Laboratories Certified to Perform High Complexity Testing under CLIA prior to Emergency Use Authorization for Coronavirus Disease-2019 during the Public Health Emergency) issued on May 30, 2019. This test is only authorized for the duration of time the declaration that circumstances exist justifying the authorization of the emergency use of in vitro diagnostic tests for detection of SARS-CoV-2 virus and/or diagnosis of COVID-19 infection under section 564(b)(1) of the Act, 21 U.S.C. 360bbb-3(b)(1), unless the authorization is terminated or revoked sooner. SARS-CoV+SARS-CoV-2 (COVID-19) Ag [Presence] in Respiratory specimen by Rapid immunoassay Negative for SARS Antigen by ERNESTO PERFORMED BY: [place] [address] PATHOLOGIST MATCH MARKER JAMES MCNAIR M.D. Normal [facility] Comment on above: Performed By: #### S OFIANJITENDRA, URDS, ADDONUAPLUS, UHCG, COVID-19 FELI #### [address] COVID-19 SOFIAOrdered By: Archie Amaral on 10-26-2021 SARS-CoV+SARS-CoV-2 (COVID-19) Ag IA.rapid Ql (Resp) Negative Negative [facility] Comment on above: This is a duplicate Feli SARS Antigen (ERNESTO) result to be used for statistical tracking purpose only. Cannabinoids [Presence] in U rine by Screen methodOrdered By: Ed Amaral on 10-26-2021 Cannabinoids Screen Ql (U) Positive Negative [facility] Comment on above: These are unconfirme d results and should not be used for legal purposes. Drug Cut-Off Concentration: AMPH 1000 ng/mL SANCHEZ 200 ng/mL RENZO 200 ng/mL COCM 300 ng/mL OP 300 ng/mL PCP 25 ng/mL THC 20 ng/mL Complete Blood Count Auto Di ffon 10-26-2021 Basophils (Bld) [#/Vol] 0.1 10*3/uL Normal 0.0-0.2 [facility] Comment on above: Result Comment: PERF ORMED BY: [address] [place] [address] PATHOLOGIST MATCH MARKER JAMES MCNAIR M.D. Performed By: #### C BC, ETOH, CMP #### [address] Basophils/100 WBC (Bld) 0.8 % Normal . [facility] Comment on above: Performed By: #### C BC, ETOH, CMP #### [address] Eosinophils (Bld) [#/Vol] 0.2 10*3/uL Normal 0.0-0.45 [facility] Comment on above: Performed By: #### C BC, ETOH, CMP #### [address] Eosinophils/100 WBC (Bld) 1.9 % Normal . [facility] Comment on above: Performed By: #### C BC, ETOH, CMP #### [address] Erythrocyte distribution width (RBC) [Ratio] 13.0 % Normal 11.9-15.3 [facility] Comment on above: Performed By: #### C BC, ETOH, CMP #### [address] Hematocrit (Bld) [Volume fraction] 39.1 % Normal 34.0-46.4 [facility] Comment on above: Performed By: #### C BC, ETOH, CMP #### [address] Hemoglobin (Bld) [Mass/Vol] 13.3 g/dL Normal 11.8-15.4 [facility] Comment on above: Performed By: #### C BC, ETOH, CMP #### [address] Lymphocytes (Bld) [#/Vol] 2.2 10*3/uL Normal 1.00-4.8 [facility] Comment on above: Performed By: #### C BC, ETOH, CMP #### [facility] [address] Lymphocytes/100 WBC (Bld) 21.5 % Normal . [facility] Comment on above: Performed By: #### C BC, ETOH, CMP #### [address] MCH (RBC) [Entitic mass] 32.9 pg Normal 24.7-34.3 [facility] Comment on above: Performed By: #### C BC, ETOH, CMP #### [facility] [address] MCV (RBC) [Entitic vol] 96.5 fL Normal 80-100 [facility] Comment on above: Performed By: #### C BC, ETOH, CMP #### [address] Mean Corpuscular HGB Conc 34.1 g/dL Normal 32.0-35.0 [facility] Comment on above: Performed By: #### C BC, ETOH, CMP #### [place] [address] [place] Monocytes (Bld) [#/Vol] 0.6 10*3/uL Normal 0.0-0.8 [facility] Comment on above: Performed By: #### C BC, ETOH, CMP #### [place] [address] [place] Monocytes/100 WBC (Bld) 6.2 % Normal . [facility] Comment on above: Performed By: #### C BC, ETOH, CMP #### [place] [address] [place] Neutrophils (Bld) [#/Vol] 7.1 10*3/uL Normal 1.8-7.7 [facility] Comment on above: Performed By: #### C BC, ETOH, CMP #### [place] [address] [place] Neutrophils/100 WBC (Bld) 69.6 % Normal . [facility] Comment on above: Performed By: #### C BC, ETOH, CMP #### [facility] [address] Nucleated RBC/100 WBC (Bld) [Ratio] 0.0 % Normal 0-0.5 [facility] Comment on above: Performed By: #### C BC, ETOH, CMP #### [address] Platelet mean volume (Bld) [Entitic vol] 9.0 fL Normal 6.3-10.7 [facility] Comment on above: Performed By: #### C BC, ETOH, CMP #### [address] Platelets (Bld) [#/Vol] 173 10*3/uL Normal 150-450 [facility] Comment on above: Performed By: #### C BC, ETOH, CMP #### [address] RBC (Bld) [#/Vol] 4.05 10*6/uL Normal 3.60-5.00 [facility] Comment on above: Performed By: #### C BC, ETOH, CMP #### [address] WBC (Bld) [#/Vol] 10.2 10*3/uL Normal 4.5-11.0 [facility] Comment on above: Performed By: #### C BC, ETOH, CMP #### [address] Comprehensive Metabolic Pane [place] 10-26-2021 Albumin [Mass/Vol] 4.0 g/dL Normal 3.2-5.5 [facility] Comment on above: Performed By: #### C BC, ETOH, CMP #### [address] Albumin/Globulin [Mass ratio] 1.5 {ratio} Normal [facility] Comment on above: Performed By: #### C BC, ETOH, CMP #### [address] ALP [Catalytic activity/Vol] 55 U/L Normal 32-92 [facility] Comment on above: Performed By: #### C BC, ETOH, CMP #### [facility] [address] [place] [id number] [place] ALT [Catalytic activity/Vol] 20 U/L Normal 10-60 [facility] Comment on above: Performed By: #### C BC, ETOH, CMP #### [facility] [address] [place] [address] [place] Anion gap [Moles/Vol] 10.1 mmol/L Normal 6.0-15.0 [facility] Comment on above: Performed By: #### C BC, ETOH, CMP #### [facility] [address] [place] [address] [place] AST [Catalytic activity/Vol] 17 U/L Normal 10-42 [facility] Comment on above: Performed By: #### C BC, ETOH, CMP #### [facility] [address] [place] [address] [place] Bilirubin [Mass/Vol] 0.4 mg/dL Normal 0.3-1.2 [facility] Comment on above: Performed By: #### C BC, ETOH, CMP #### [facility] [address] [place] [address] [place] Calcium [Mass/Vol] 9.5 mg/dL Normal 8.2-10.2 [facility] Comment on above: Performed By: #### C BC, ETOH, CMP #### [facility] [address] [place] [id number] [place] Chloride [Moles/Vol] 104 mmol/L Normal 95-114 [facility] Comment on above: Performed By: #### C BC, ETOH, CMP #### [facility] [address] [place] [id number] [place] CO2 [Moles/Vol] 25.3 mmol/L Normal 22.0-30.0 [facility] Comment on above: Performed By: #### C BC, ETOH, CMP #### [facility] [address] [place] [id number] [place] Creatinine [Mass/Vol] 0.81 mg/dL Normal 0.44-1.03 [facility] Comment on above: Performed By: #### C BC, ETOH, CMP #### [address] Creatinine Clr Calc Pharmacy 97.62 [facility] Comment on above: Result Comment: PERF ORMED BY: [place] [address] PATHOLOGIST MATCH MARKER JAMES MCNAIR M.D. Performed By: #### C BC, ETOH, CMP #### [address] Estimated GFR ( Nette > 60 [facility] Comment on above: Result Comment: GFR estimated reference range: According to KDOQI guidelines, <60 ml/min/1.73m2 is sufficient to diagnose a patient with chronic kidney disease. Performed By: #### C BC, ETOH, CMP #### [address] Estimated GFR (Non- Am > 60 [facility] Comment on above: Performed By: #### C BC, ETOH, CMP #### [address] Globulin (S) [Mass/Vol] 2.7 g/dL Normal [facility] Comment on above: Performed By: #### C BC, ETOH, CMP #### [address] Glucose [Mass/Vol] 98 mg/dL Normal 70-100 [facility] Comment on above: Result Comment: [place] Glucose Reference Range is dependent on time and content of last meal. Glucose of more than 200 mg/dL in a nonstressed, ambulatory subject supports the diagnosis of Diabetes Mellitus. ADA recommended reference range Performed By: #### C BC, ETOH, CMP #### [address] Potassium [Moles/Vol] 3.4 mmol/L Low 3.5-5.1 [facility] Comment on above: Performed By: #### C BC, ETOH, CMP #### [place] [address] [place] Protein [Mass/Vol] 6.7 g/dL Normal 6.1-7.9 [facility] Comment on above: Performed By: #### C BC, ETOH, CMP #### [facility] [address] Sodium [Moles/Vol] 136 mmol/L Normal 136-146 [facility] Comment on above: Performed By: #### C BC, ETOH, CMP #### [facility] [address] Urea nitrogen [Mass/Vol] 6 mg/dL Low 9-23 [facility] Comment on above: Performed By: #### C BC, ETOH, CMP #### [facility] [address] [place] [address] [place] Creatinine and Glomerular fi ltration rate.predicted panel (S/P/Bld)Ordered By: Ed Amaral on 10-26-2021 Creatinine [Mass/Vol] 0.81 mg/dL 0.44-1.03 [facility] Dipstick and Microscopicon 0 10-26-2021 Appearance (U) Clear Normal Clear [facility] Comment on above: Order Comment: Name Collection Type:: Clean-Voided Midstream Performed By: #### S OFIANEG, URDS, ADDONUAPLUS, UHCG, COVID-19 FELI #### [place] [address] [place] Bilirubin,Urine Negative Normal Negative [facility] Comment on above: Order Comment: Name Collection Type:: Clean-Voided Midstream Performed By: #### S OFIANEG, URDS, ADDONUAPLUS, UHCG, COVID-19 FELI #### [facility] [address] [place] [address] [place] Glucose Ql (U) Normal Normal Normal [facility] Comment on above: Order Comment: Name Collection Type:: Clean-Voided Midstream Performed By: #### S OFIANEG, URDS, ADDONUAPLUS, UHCG, COVID-19 FELI #### [facility] [address] [place] [address] [place] Ketones Ql (U) Negative Normal Negative [facility] Comment on above: Order Comment: Name Collection Type:: Clean-Voided Midstream Performed By: #### S OFIANEG, URDS, ADDONUAPLUS, UHCG, COVID-19 FELI #### [facility] [address] [place] [address] Leukocyte esterase Test strip Ql (U) 1+ High Negative [facility] Comment on above: Order Comment: Name Collection Type:: Clean-Voided Midstream Performed By: #### S OFIANEG, URDS, ADDONUAPLUS, UHCG, COVID-19 FELI #### [facility] [address] [place] [address] [place] Nitrite,Urine Negative Normal Negative [facility] Comment on above: Order Comment: Name Collection Type:: Clean-Voided Midstream Performed By: #### S OFIANEG, URDS, ADDONUAPLUS, UHCG, COVID-19 FELI #### [facility] [address] [place] [address] [place] Occult Blood,Urine Negative Normal Negative [facility] Comment on above: Order Comment: Name Collection Type:: Clean-Voided Midstream Performed By: #### S OFIANEG, URDS, ADDONUAPLUS, UHCG, COVID-19 FELI #### [facility] [address] [place] [address] [place] Protein,Urine Negative Normal Negative [facility] Comment on above: Order Comment: Name Collection Type:: Clean-Voided Midstream Performed By: #### S OFIANEG, URDS, ADDONUAPLUS, UHCG, COVID-19 FELI #### [facility] [address] [place] [address] [place] RBC LM.HPF (Urine sed) [#/Area] 0 /[HPF] Normal 0-4 [facility] Comment on above: Order Comment: Name Collection Type:: Clean-Voided Midstream Performed By: #### S OFIANEG, URDS, ADDONUAPLUS, UHCG, COVID-19 FELI #### [facility] [address] [place] [address] [place] Specificy [place],Urine 1.005 Normal 1.001-1.030 [facility] Comment on above: Order Comment: Name Collection Type:: Clean-Voided Midstream Performed By: #### S OFIANEG, URDS, ADDONUAPLUS, UHCG, COVID-19 FELI #### [address] Squamous Epithelial Cell,Urine 1-2 Normal 0-2 [facility] Comment on above: Order Comment: Name Collection Type:: Clean-Voided Midstream Performed By: #### S OFIANEG, URDS, ADDONUAPLUS, UHCG, COVID-19 FELI #### [address] Urobilinogen,Urine Normal Normal Normal [facility] Comment on above: Order Comment: Name Collection Type:: Clean-Voided Midstream Performed By: #### S OFIANEG, URDS, ADDONUAPLUS, UHCG, COVID-19 FELI #### [address] WBC,Urine 1-2 Normal 0-4 [facility] Comment on above: Order Comment: Name Collection Type:: Clean-Voided Midstream Performed By: #### S OFIANEG, URDS, ADDONUAPLUS, UHCG, COVID-19 FELI #### [place] [address] [place] Drug Screen,Urineon 10-27-19 22 Amphetamine Screen,Urine Negative Normal Negative [facility] Comment on above: Performed By: #### S OFIANEG, URDS, ADDONUAPLUS, UHCG, COVID-19 FELI #### [place] [address] [place] Barbiturate Screen,Urine Negative Normal Negative [facility] Comment on above: Performed By: #### S OFIANEG, URDS, ADDONUAPLUS, UHCG, COVID-19 FELI #### [place] [address] [place] Benzodiazepines Screen,Urine Negative Normal Negative [facility] Comment on above: Performed By: #### S OFIANEG, URDS, ADDONUAPLUS, UHCG, COVID-19 FELI #### [address] Cannabinoid Screen,Urine Positive High Negative [facility] Comment on above: Result Comment: Thes e are unconfirmed results and should not be used for legal purposes. Drug Cut-Off Concentration: AMPH 1000 ng/mL SANCHEZ 200 ng/mL RENZO 200 ng/mL COCM 300 ng/mL OP 300 ng/mL PCP 25 ng/mL THC 20 ng/mL PERFORMED BY: [place] [address] PATHOLOGIST MATCH MARKER JAMES MCNAIR M.D. Performed By: #### S OFIANEG, URDS, ADDONUAPLUS, UHCG, COVID-19 FELI #### [address] Cocaine Screen,Urine Negative Normal Negative [facility] Comment on above: Performed By: #### S OFIANEG, URDS, ADDONUAPLUS, UHCG, COVID-19 FELI #### [facility] [address] [place] [address] Opiate Screen,Urine Negative Normal Negative [facility] Comment on above: Performed By: #### S OFIANEG, URDS, ADDONUAPLUS, UHCG, COVID-19 FELI #### [facility] [address] [place] [address] Phencyclidine Screen,Urine Negative Normal Negative [facility] Comment on above: Performed By: #### S OFIANEG, URDS, ADDONUAPLUS, UHCG, COVID-19 FELI #### [place] [address] [place] Eosinophils Auto (Bld) [#/Vo l]Ordered By: Ed Amaral on 10-26-2021 Eosinophils (Bld) [#/Vol] 0.2 10*3/uL 0.0-0.45 [facility] Eosinophils/100 WBC Auto (Bl d)Ordered By: Ed Amaral on 10-26-2021 Eosinophils/100 WBC (Bld) 1.9 % . [facility] Erythrocyte distribution wid th Auto (RBC) [Ratio]Ordered By: Ed Amaral on 10-26-2021 Erythrocyte distribution width (RBC) [Ratio] 13.0 % 11.9-15.3 [facility] Estimated glomerular filtrat ion rate (GFR) non- AmericanOrdered By: Ed Amaral on 10-26-2021 GFR/1.73 sq M.predicted among non-blacks MDRD (S/P/Bld) [Vol rate/Area] > 60 mL/Min [facility] Ethyl Alcohol Profileon 09-29 Ethanol [Mass/Vol] mg/dL Normal [facility] Comment on above: Performed By: #### C BC, ETOH, CMP #### [facility] [address] [place] [address] Percent Ethanol Not performed Normal [facility] Comment on above: Result Comment: PERF ORMED BY: [place] [address] PATHOLOGIST MATCH MARKER JAMES MCNAIR M.D. Performed By: #### C BC, ETOH, CMP #### [facility] [address] [place] [address] Globulin Calc (S) [Mass/Vol] Ordered By: Ed Amaral on 10-26-2021 Globulin (S) [Mass/Vol] 2.7 g/dL F [facility] HCG ( test) IA.rapi d Ql (U)Ordered By: Ed Amaral on 10-26-2021 HCG ( test) Ql (U) Negative [facility] HCG,Urineon 10-26-2021 Beta HCG ( test) Ql (U) Negative Normal [facility] Comment on above: Order Comment: Name Collection Type:: Clean-Voided Midstream Result Comment: PERF ORMED BY: [place] [address] PATHOLOGIST MATCH MARKER JAMES MCNAIR M.D. Performed By: #### S OFIANEG, URDS, ADDONUAPLUS, UHCG, COVID-19 FELI #### [facility] [address] Hematocrit Auto (Bld) [Volum e fraction]Ordered By: Ed Amaral on 10-26-2021 Hematocrit (Bld) [Volume fraction] 39.1 % 34.0-46.4 [facility] Ketones Auto test strip (U) [Mass/Vol]Ordered By: Ed Amaral on 10-26-2021 Ketones (U) [Mass/Vol] Negative Negative Fi [facility] - Drug toxicology Ordered By: Ed Amaral on 10-26-2021 Opiates Ql (U) Negative Negative [facility] Laboratory - Hematology and Cell countsOrdered By: Ed Amaral on 10-26-2021 Nucleated RBC/100 WBC (Bld) [Ratio] 0.0 % 0-0.5 [facility] Lymphocytes Auto (Bld) [#/Vo l]Ordered By: Ed Amaral on 10-26-2021 Lymphocytes (Bld) [#/Vol] 2.2 10*3/uL 1.00-4.8 [facility] Lymphocytes/100 WBC Auto (Bl d)Ordered By: Ed Amaral on 10-26-2021 Lymphocytes/100 WBC (Bld) 21.5 % . [facility] MCH Auto (RBC) [Entitic mass ]Ordered By: Ed Amaral on 10-26-2021 MCH (RBC) [Entitic mass] 32.9 pg 24.7-34.3 [facility] MCHC Auto (RBC) [Mass/Vol]Or dered By: Ed Amaral on 10-26-2021 MCHC (RBC) [Mass/Vol] 34.1 g/dL 32.0-35.0 [facility] MCV Auto (RBC) [Entitic vol] Ordered By: Ed Amaral on 10-26-2021 MCV (RBC) [Entitic vol] 96.5 fL 80-100 [facility] Monocytes Auto (Bld) [#/Vol] Ordered By: Ed Amaral on 10-26-2021 Monocytes (Bld) [#/Vol] 0.6 10*3/uL 0.0-0.8 [facility] Monocytes/100 WBC Auto (Bld) Ordered By: Ed Amaral on 10-26-2021 Monocytes/100 WBC (Bld) 6.2 % . [facility] Neutrophils Auto (Bld) [#/Vo l]Ordered By: Ed Amaral on 10-26-2021 Neutrophils (Bld) [#/Vol] 7.1 10*3/uL 1.8-7.7 [facility] Neutrophils/100 WBC Auto (Bl d)Ordered By: Ed Amaral on 10-26-2021 Neutrophils/100 WBC (Bld) 69.6 % . [facility] Nitrite Test strip Ql (U)Ord ered By: Ed Amaral on 10-26-2021 Nitrite Ql (U) Negative Negative [facility] No Panel InformationOrdered By: Ed Amaral on 10-26-2021 Estimated GFR () > 60 mL/Min [facility] Comment on above: GFR estimated refere nce range: According to KDOQI guidelines, <60 ml/min/1.73m2 is sufficient to diagnose a patient with chronic kidney disease. Pharmacy Creatinine Clearance (Chem 97.62 [facility] SARS Antigen (LFIA) [facility] Phencyclidine Screen Ql (U)O rdered By: Ed Amaral on 10-26-2021 Phencyclidine Ql (U) Negative Negative [facility] Platelet mean volume Auto (B ld) [Entitic vol]Ordered By: Ed Amaral on 10-26-2021 Platelet mean volume (Bld) [Entitic vol] 9.0 fL 6.3-10.7 [facility] Platelets Auto (Bld) [#/Vol] Ordered By: Ed Amaral on 10-26-2021 Platelets (Bld) [#/Vol] 173 10*3/uL 150-450 [facility] Protein Auto test strip (U) [Mass/Vol]Ordered By: Ed Amaral on 10-26-2021 Protein (U) [Mass/Vol] Negative Negative [facility] Protein [Mass/volume] in Ser um or PlasmaOrdered By: Ed Amaral on 10-26-2021 Protein [Mass/Vol] 6.7 g/dL 6.1-7.9 [facility] RBC Auto (Bld) [#/Vol]Ordere d By: Ed Amaral on 10-26-2021 RBC (Bld) [#/Vol] 4.05 10*6/uL 3.60-5.00 [facility] Serum or plasma alanine daniel otransferase measurement without P-5'-P (enzymatic activiOrdered By: Ed Amaral on 10-26-2021 ALT No additional P-5'-P [Catalytic activity/Vol] 20 U/L 10-60 [facility] Serum or plasma albumin/glob ulin mass ratioOrdered By: Ed Amaral on 10-26-2021 Albumin/Globulin [Mass ratio] 1.5 {ratio} [facility] Serum or plasma alkaline jame sphatase measurement (enzymatic activity/volume)Ordered By: Ed Amaral on 10-26-2021 ALP [Catalytic activity/Vol] 55 U/L 32-92 [facility] Serum or plasma anion gap de terminationOrdered By: Ed Amaral on 10-26-2021 Anion gap [Moles/Vol] 10.1 mmol/L 6.0-15.0 [facility] Serum or plasma aspartate am inotransferase measurement (enzymatic activity/volume)Ordered By: Ed Amaral on 10-26-2021 AST [Catalytic activity/Vol] 17 U/L 10-42 [facility] Serum or plasma calcium stephane urement (mass/volume)Ordered By: Ed Amaral on 10-26-2021 Calcium [Mass/Vol] 9.5 mg/dL 8.2-10.2 [facility] Serum or plasma chloride rios surement (moles/volume)Ordered By: Ed Amaral on 10-26-2021 Chloride [Moles/Vol] 104 mmol/L 95-114 [facility] Serum or plasma ethanol stephane urement (mass/volume)Ordered By: Ed Amaral on 10-26-2021 Ethanol [Mass/Vol] mg/dL [facility] Ethanol [Mass/Vol] TNP [facility] Comment on above: Test not performed Serum or plasma glucose stephane urement (mass/volume)Ordered By: Ed Amaral on 10-26-2021 Glucose [Mass/Vol] 98 mg/dL 70-100 [facility] Comment on above: ADA recommended refe rence range Random Glucose Reference Range is dependent on time and content of last meal. Glucose of more than 200 mg/dL in a nonstressed, ambulatory subject supports the diagnosis of Diabetes Mellitus. Serum or plasma potassium me asurement (moles/volume)Ordered By: Ed Amaral on 10-26-2021 Potassium [Moles/Vol] 3.4 mmol/L 3.5-5.1 [facility] Serum or plasma sodium measu rement (moles/volume)Ordered By: Ed Amaral on 10-26-2021 Sodium [Moles/Vol] 136 mmol/L 136-146 [facility] Serum or plasma total biliru bin measurement (mass/volume)Ordered By: Ed Amaral on 10-26-2021 Bilirubin [Mass/Vol] 0.4 mg/dL 0.3-1.2 [facility] Serum or plasma total carbon dioxide measurement (moles/volume)Ordered By: Ed Amaral on 10-26-2021 CO2 [Moles/Vol] 25.3 mmol/L 22.0-30.0 [facility] Serum or plasma urea nitroge n measurement (mass/volume)Ordered By: Ed Amaral on 10-26-2021 Urea nitrogen [Mass/Vol] 6 mg/dL 9-23 [facility] Feli Ag Negativeon 10-27-19 22 Feli Ag Negative Negative Normal Negative [facility] Comment on above: Result Comment: This is a duplicate Feli SARS Antigen (ERNESTO) result to be used for statistical tracking purpose only. PERFORMED BY: [facility] [address] [place] [address] PATHOLOGIST MATCH MARKER JAMES MCNAIR M.D. Performed By: #### S JOCE, BALJINDER, ADDONUAPLUS, UHCG, COVID-19 FELI #### [facility] [address] Specific gravity Auto test s trip (U) [Rel density]Ordered By: Ed Amaral on 10-26-2021 Specific gravity (U) [Rel density] 1.005 1.001-1.030 [facility] Squamous epithelial cells de tection in urine sediment by light microscopyOrdered By: Ed Amaral on 10-26-2021 Epithelial cells.squamous LM Ql (Urine sed) 1-2 [HPF] 0-2 [facility] Urine bacteria detection by automated methodOrdered By: Ed Amaral on 10-26-2021 Bacteria Auto Ql (U) N/A [facility] Urine clarity by refractomet ry automatedOrdered By: Ed Amaral on 10-26-2021 Clarity Refractometry automated (U) Clear Clear [facility] Urine cocaine detectionOrder ed By: Ed Amaral on 10-26-2021 Cocaine Ql (U) Negative Negative [facility] Urine glucose measurement by automated test strip (mass/volume)Ordered By: Ed Amaral on 10-26-2021 Glucose Auto test strip (U) [Mass/Vol] Normal mg/dL Normal [facility] Urine hemoglobin detection b y automated test stripOrdered By: Ed Amaral on 10-26-2021 Hemoglobin Auto test strip Ql (U) Negative Negative [facility] Urine leukocyte esterase det ection by automated test stripOrdered By: Ed Amaral on 10-26-2021 Leukocyte esterase Auto test strip Ql (U) 1+ Negative [facility] Urine pH measurement by auto mated test stripOrdered By: Ed Amaral on 10-26-2021 pH (U) 7.0 [pH] Normal 5.0-9.0 [facility] Comment on above: Order Comment: Name Collection Type:: Clean-Voided Midstream Performed By: #### S OFIANEG, URDS, ADDONUAPLUS, UHCG, COVID-19 FELI #### [facility] [address] [place] [address] Urobilinogen Auto test strip (U) [Mass/Vol]Ordered By: Ed Amaral on 10-26-2021 Urobilinogen (U) [Mass/Vol] Normal mg/dL Normal [facility] Viral Non-Resp Culton 2021 Viral Non-Resp Cult Specimen Description .WOUND UPPER .LIP Culture POSITIVE: HSV-1 DNA detected by nucleic acid amp. NEGATIVE: HSV-2 DNA not detected by nucleic acid amplification. Due to the specimen source, HSV 1,2 testing was performed by a molecular method. Report Status FINAL 05/30/2021 Normal [facility] Comment on above: Performed By: #### [facility] #### [facility] [employer] [employer] [address] [place] [address] Store Keeper: Claude Gonzalez MD No Panel InformationOrdered By: Kia Sharma on 05-28-2021 Reported Physicians See Note [facility] Work Phone: Comment on above: Note: Reported Physi cians:Ordering: Andres SharmaaAttending: Andres SharmaaReferring: Kia Sharma Viral Non-Resp Cult See Note [facility] Work Phone: Comment on above: Note: Specimen Descr iption .WOUND UPPER .LIPCulture POSITIVE: HSV-1 DNA detected by nucleic acid amp.NEGATIVE: HSV-2 DNA not detected by nucleic acid amplification.Due to the specimen source, HSV 1,2 testing was performed by a molecular method.Report Status FINAL 2Responsible Observer: SUMMER OLIVER ([id number]) Follicle Stimulating Hormone on 03-10-2021 FSH 4.5 U/L 1.7 - 21.5 U/L [facility] Comment on above: Reference Range: Male: 1.5-12.4 Ovulating Female: Follicular Phase 3.5-12.5 Ovulation Phase 4.7-21.5 Luteal Phase 1.7-7.7 Postmenopausal Female: 25.8-134.8 Luteinizing Hormoneon 2021 LH 3.0 U/L 1.0 - 95.6 U/L [facility] Comment on above: Reference Range: Male: 1.7-8.6 Ovulating Female: Follicular Phase 2.4-12.6 Ovulation Phase 14.0-95.6 Luteal Phase 1.0-11.4 Postmenopausal Female: 7.7-58.5 No Panel Informationon 03-10 [facility] Prolactinon 03-10-2021 Prolactin 5.96 ug/L 4.79 - 23.30 ug/L [facility] Comment on above: The presence of macr oprolactin may cause interference in female patients with various endocrinological diseases or during . [facility] TSH with Reflexon 03-10-2021 TSH Qn 0.72 m[IU]/L Publish2 hCG, Quantitative, on 03-10-2021 hCG Quant <1 <5 IU/L [facility] Comment on above: Non-preg premeno <=5 Postmeno <=8 Male <=3 If HCG results do not concur with clinical observations, additional testing to confirm results is recommended. Elevated results not associated with may be found in patients with other diseases such as tumors of the germ cells (testis, ovaries, etc.), bladder, pancreas, stomach, lungs, and liver. [facility] , UrineOrdered By: Anthony Galloway on 10-14-2020 Beta HCG ( test) Ql (U) Negative NEGATIVE [email or web address] Phone: Comment on above: Specimens with hCG l evels near the threshold of the test (25 mIU/mL) may give a negative or indeterminate result. In such cases, another test should be performed with a new specimen in 48-72 hours. If early is suspected clinically in this setting, correlation with quantitative serum b-hCG level is suggested. [employer] has confirmed the use of plasma for this test. This has not been cleared or approved by the U.S. Food and Drug Administration. The FDA has determined that such clearance is not necessary. [email or web address] Phone: COVID-19Ordered By: Sabas siddiqi on 10-10-2020 SARS-CoV-2 (COVID-19) RNA SANDRA+probe Ql (Unsp spec) [email or web address] Phone: SARS-CoV-2 (COVID-19) RNA SANDRA+probe Ql (Unsp spec) Not detected Not Detected [email or web address] Phone: Comment on above: The specimen is NEGATIVE for SARS-CoV-2, the novel coronavirus associated with COVID-19. A negative result does not rule out COVID-19. [employer] SARS-CoV-2 for use on the [email or web address] is a real-time RT-PCR test intended for the qualitative detection of nucleic acids from SARS-CoV-2 in clinician-collected nasal, nasopharyngeal, and oropharyngeal swab specimens from individuals who meet COVID-19 clinical and/or epidemiological criteria. [facility] SARS-CoV-2 is for use only under Emergency Use Authorization (EUA) in laboratories certified under Clinical Laboratory Improvement Amendments of 1988 (CLIA), 42 U.S.C. 263a, that meet requirements to perform high or moderate complexity tests. An individual without symptoms of COVID-19 and who is not shedding SARS-CoV-2 virus would expect to have a negative (not detected) result in this assay. Fact sheet for Healthcare Providers: https://www.fda.gov/media/573101/download Fact sheet for Patients: https://www.latakoo.gov/media/083159/download METHODOLOGY: RT-PCR Source .NASOPHARYNGEAL SWAB [facility] [employer] Phone: [facility] [employer] Phone: Microscopic Urinalysison Amorphous, UA NOT REPORTED None [place], [place] Bacteria, UA 1+ Abnormal None [place] Casts UA NOT REPORTED /LPF [place] Crystals, UA NOT REPORTED None /HPF [place] Epithelial Cells UA 5 TO 10 [place], [place] Interpretation and review of laboratory results Abnormal [place] Mucus, UA NOT REPORTED None [place] Other Observations UA NOT REPORTED NOT REQ. M [place] RBC (U) [#/Vol] [facility] [place] Renal Epithelial, UA NOT REPORTED 0 /HPF [place], [place] Trichomonas, UA NOT REPORTED None [facility] [place] WBC, UA 0 TO 2 [place] Yeast, UA NOT REPORTED None [place] - [place] , Urineon 0 Beta HCG ( test) Ql (U) Negative NEGATIVE [place] Comment on above: Specimens with hCG l evels near the threshold of the test (25 mIU/mL) may give a negative or indeterminate result. In such cases, another test should be performed with a new specimen in 48-72 hours. If early is suspected clinically in this setting, correlation with quantitative serum b-hCG level is suggested. [facility] has confirmed the use of plasma for this test. This has not been cleared or approved by the U.S. Food and Drug Administration. The FDA has determined that such clearance is not necessary. Urinalysis Reflex to Culture on 02-25-2020 Bilirubin Urine Negative NEGATIVE [place] Color, UA YELLOW YELLOW [place] Glucose, Ur Negative NEGATIVE [place] Ketones Ql (U) Negative NEGATIVE [place] Leukocyte esterase Test strip Ql (U) Negative NEGATIVE [place] Nitrite, Urine Negative NEGATIVE [place] pH, UA 6.5 [place] Protein (U) [Mass/Vol] Negative NEGATIVE [place] Specific [place], UA 1.010 [place], [place] Turbidity UA CLEAR CLEAR [place] Urinalysis Comments NOT REPORTED [place] Urine Hgb Negative NEGATIVE [place] Urobilinogen, Urine Normal Normal [place], [place] Wet Prep, Genitalon 02-25-20 20 Direct Exam NO TRICHOMONAS SEEN [place] Direct Exam NO YEAST OBSERVED [place] Direct Exam CLUE CELLS SEEN Abnormal [place] Interpretation and review of laboratory results Abnormal [place] Special Requests NOT REPORTED [place] Specimen Description .VAGINA [place], [place] Laboratory Studieson 016 Albumin [Mass/Vol] 3.4 g/dL 3.2-5.5 [facility] Albumin/Globulin [Mass ratio] 1.5 {ratio} [facility] ALP [Catalytic activity/Vol] 50 U/L 32-92 [facility] ALT [Catalytic activity/Vol] 17 U/L 10-60 [facility] AST [Catalytic activity/Vol] 16 U/L 10-42 [facility] Basophils (Bld) [#/Vol] 0.0 10*3/uL 0.0-0.2 [facility] Basophils/100 WBC (Bld) 0.3 % F [facility] Bilirubin Ql (U) 0.2 mg/dL Low 0.3-1.2 [facility] Bilirubin.direct [Mass/Vol] mg/dL 0.0-0.4 [facility] Bilirubin.indirect (Body fld) [Mass/Vol] TNP [facility] Comment on above: Test not performed WHEN BILD IS <0.1,IBIL IS NOT ABLE TO BE CALCULATED. Calcium [Mass/Vol] 9.3 mg/dL 8.2-10.2 [facility] Chloride [Moles/Vol] 106 mmol/L 95-114 [facility] Cholesterol [Mass/Vol] 9 mg/dL Fi [facility] Cholesterol [Mass/Vol] 101 mg/dL Low 140-[address] [facility] Comment on above: CHOL less than 200 m g/dL Low risk CHOL 201-239 mg/dL Borderline risk CHOL 240 mg/dL and greater High risk Cholesterol in HDL [Mass/Vol] 38 mg/dL 35-85 [facility] Comment on above: HDL CHOL ATP-III CLA SSIFICATION Cardiovascular Risk HDL > or equal to 60 mg/dL Low HDL < 40 mg/dL High Cholesterol.total/Fanny sterol in HDL [Mass ratio] 2.7 {ratio} [facility] CO2 [Moles/Vol] 25.8 mmol/L 22.0-30.0 [facility] Creatinine [Mass/Vol] 0.62 mg/dL 0.44-1.03 Fir [facility] Eosinophils (Bld) [#/Vol] 0.10 10*3/uL 0.0-0.45 [facility] Eosinophils/100 WBC (Bld) 1.5 % [facility] Erythrocyte distribution width (RBC) [Ratio] 13.2 % 11.9-15.3 [facility] Estimated GFR (Non- > 60 [facility] GFR/1.73 sq M.predicted MDRD (S/P/Bld) [Vol rate/Area] mL/min/{1.73_m2} [facility] Comment on above: GFR estimated refere nce range: According to KDOQI guidelines, <60 ml/min/1.73m2 is sufficient to diagnose a patient with chronic kidney disease. Globulin (S) [Mass/Vol] 2.2 g/dL F [facility] Glucose [Mass/Vol] 82 mg/dL 70-100 [facility] Comment on above: ADA RECOMMENDED REFE RENCE RANGE Hematocrit (Bld) [Volume fraction] 32.1 % Low 34.0-46.4 [facility] Hemoglobin (Bld) [Mass/Vol] 11.0 g/dL Low 11.8-15.4 [facility] LDL Cholesterol, Calculated 54 mg/dL 0-100 [facility] Comment on above: LDL ATP III CLASSIFI CATION LDL less than 100 mg/dL Optimal LDL 100-129 mg/dL Near or above optimal LDL 130-159 mg/dL Borderline high LDL 160-189 mg/dL High LDL greater than 189 mg/dL Very high Lymphocytes (Bld) [#/Vol] 2.1 10*3/uL 1.00-4.8 [facility] Lymphocytes/100 WBC (Bld) 25.3 % [facility] MCH (RBC) [Entitic mass] 31.9 pg 24.7-34.3 [facility] MCHC (RBC) [Mass/Vol] 34.4 g/dL 32.0-35.0 [facility] MCV (RBC) [Entitic vol] 92.6 fL 80-100 F [facility] Monocytes (Bld) [#/Vol] 0.7 10*3/uL 0.0-0.8 [facility] Monocytes/100 WBC (Bld) 8.3 % F [facility] Neutrophils (Bld) [#/Vol] 5.3 10*3/uL 1.8-7.7 [facility] Neutrophils/100 WBC (Bld) 64.6 % [facility] Platelet mean volume (Bld) [Entitic vol] 9.5 fL 6.3-10.7 [facility] Platelets (Bld) [#/Vol] 135 10*3/uL Low 150-450 [facility] Potassium [Moles/Vol] 4.3 mmol/L 3.5-5.1 [facility] Protein [Mass/Vol] 5.6 g/dL Low 6.1-7.9 [facility] RBC (Bld) [#/Vol] 3.46 10*6/uL Low 3.60-5.00 [facility] Sodium [Moles/Vol] 138 mmol/L 136-146 [facility] Triglyceride [Mass/Vol] 47 mg/dL 35-149 F [facility] Comment on above: TRIG ATP III CLASSIF ICATION TRIG less than 150 mg/dL Normal TRIG 150-199 mg/dL Borderline high TRIG 200-500 mg/dL High TRIG greater than 500 mg/dL Very high Standard traceable to the Center for Disease Conrtrol and Prevention (CDC) test method. Troponin I.cardiac [Mass/Vol] 0.02 ng/mL 0-0.02 [facility] Comment on above: HARIS CT Cut off value > or equal to 0.03 ng/mL in conjunction with clinical conditions of myocardial infarction. (www.escardio.org/guidelines) TSH Qn 1.89 uIU/mL 0.340-5.600 [facility] Urea nitrogen [Mass/Vol] 7 mg/dL Low 9-23 [facility] WBC (Bld) [#/Vol] 8.2 10*3/uL 3.8-11.6 [facility] Amorphous sediment LM Ql (Urine sed) 2+ [facility] Comment on above: PHOSPHATES Amphetamines Ql (U) Negative [facility] Appearance (U) Hazy Abnormal [facility] Bacteria LM.HPF (Urine sed) [#/Area] Rare [facility] Benzodiazepines Ql (U) [facility] Bilirubin Ql (U) Negative [facility] Cocaine Ql (U) Negative [facility] Color (U) Light-yellow [facility] Epithelial cells.squamous LM.HPF (Urine sed) [#/Area] 3-4 /hpf High [facility] Glucose (U) [Mass/Vol] Normal mg/dL [facility] Ketones Ql (U) Negative [facility] Leukocyte esterase Test strip Ql (U) Negative [facility] Nitrite Ql (U) Negative [facility] Opiates Ql (U) Negative [facility] pH (U) 7.0 [pH] 5.0-9.0 [facility] Phencyclidine Ql (U) Negative [facility] Protein Ql (U) Negative [facility] RBC (U) [#/Vol] Rare /hpf [facility] Specific gravity (U) [Rel density] 1.010 1.001-1.030 [facility] Urine Barbiturates Screen Positive [facility] Urine Collection Type Type [facility] Comment on above: VOIDED Urine Drug Screen Comment See comment [facility] Comment on above: THESE ARE UNCONFIRME D RESULTS AND SHOULD NOT BE USED FOR LEGAL PURPOSES. DRUG CUT-OFF CONCENTRATION: AMPH 1000 ng/mL SANCHEZ 200 ng/mL RENZO 200 ng/mL COCM 300 ng/mL OP 300 ng/mL PCP 25 ng/mL THC 20 ng/mL Urine Marijuana (THC) Screen Positive [facility] Urine Occult Blood Negative [facility] Urobilinogen Qn (U) Normal mg/dL [facility] WBC (U) [#/Vol] Rare /hpf [facility] Laboratory Studieson 016 CK [Catalytic activity/Vol] 51 U/L 22-269 [facility] CK.MB [Mass/Vol] 0.8 ng/mL 0.6-6.3 [facility] Creatine Kinase MB Relative Index 1.5 0.00-2.50 [facility] Vital Signs Date Time Vital Sign Value Performing Clinician Facility 08-03-2022 06:56-0400 Body temperature 99 [degF] [facility] 08-03-2022 06:56-0400 Diastolic blood pressure 75 mm[Hg] Samara Dominguez MD Work Phone: [facility] [employer] [facility] 08-03-2022 06:56-0400 Heart rate 129 /min Samara [facility]inguez MD [facility] [employer] [facility] 08-03-2022 06:56-0400 Respiratory rate 22 /min Samara [facility]inguez MD [facility] 08-03-2022 06:56-0400 SaO2% (BldA) [Mass fraction] 100 % Samara Dominguez MD Work Phone: [facility] 08-03-2022 06:56-0400 Systolic blood pressure 131 mm[Hg] Samara Dominguez MD Work Phone: [facility] 07-27-2022 18:47-0400 Body height 175.26 cm Mariposa Duncan CNP Work Phone: [facility] Work Phone: 07-27-2022 18:47-0400 Body mass index (BMI) [Ratio] 22 kg/m2 Mariposa Duncan CNP Work Phone: [facility] Work Phone: 07-27-2022 18:47-0400 Body surface area Derived from formula 1.8 m2 Mariposa Duncan CNP Work Phone: [facility] Work Phone: 07-27-2022 18:47-0400 Body temperature 96.3 [degF] Mariposa Duncan CNP Work Phone: [facility] Work Phone: 07-27-2022 18:47-0400 Body weight 67.72 kg Mariposa Duncan CNP Work Phone: [facility] Work Phone: 07-27-2022 18:47-0400 Diastolic blood pressure 63 mm[Hg] Mariposa Duncan CNP Work Phone: [facility] Work Phone: 07-27-2022 18:47-0400 Heart rate 68 /min Mariposa Duncan CNP Work Phone: [facility] Work Phone: 07-27-2022 18:47-0400 SaO2% (BldA) [Mass fraction] 97 % Mariposa Duncan CNP Work Phone: [facility] Work Phone: 07-27-2022 18:47-0400 Systolic blood pressure 117 mm[Hg] Mariposa Duncan SYNTHETIC DEPARTMENT SUPERVISOR Work Phone: [facility] Work Phone: 04-24-2022 13:05-0500 Diastolic blood pressure 60 mm[Hg] Kia Edith POWER SYSTEM DISPATCHER - SYNTHETIC DEPARTMENT SUPERVISOR Work Phone: [employer] 04-24-2022 13:05-0500 Systolic blood pressure 122 mm[Hg] Kia Edith POWER SYSTEM DISPATCHER - SYNTHETIC DEPARTMENT SUPERVISOR Work Phone: [facility] [employer] 04-24-2022 10:44-0500 Body mass index (BMI) [Ratio] 24.78 kg/m2 Kia Edith POWER SYSTEM DISPATCHER - SYNTHETIC DEPARTMENT SUPERVISOR Work Phone: [facility] [employer] 04-24-2022 10:44-0500 Body temperature 98.4 [degF] Kia Sharma POWER SYSTEM DISPATCHER - SYNTHETIC DEPARTMENT SUPERVISOR Work Phone: [facility] [employer] 04-24-2022 10:44-0500 Body weight 73.94 kg Kia Edith POWER SYSTEM DISPATCHER - SYNTHETIC DEPARTMENT SUPERVISOR Work Phone: [employer] 04-24-2022 10:44-0500 Heart rate 79 /min Kia Sharma APRN - SYNTHETIC DEPARTMENT SUPERVISOR Work Phone: [facility] [employer] 04-24-2022 10:44-0500 Respiratory rate 20 /min Kia Sharma POWER SYSTEM DISPATCHER - SYNTHETIC DEPARTMENT SUPERVISOR Work Phone: [facility] [employer] 04-24-2022 10:44-0500 SaO2% (BldA) [Mass fraction] 100 % Kia Sharma POWER SYSTEM DISPATCHER - SYNTHETIC DEPARTMENT SUPERVISOR Work Phone: [employer] 03-04-2022 14:15-0500 Diastolic blood pressure 78 mm[Hg] Geoff Miller MD Work Phone: [employer] 03-04-2022 14:15-0500 Heart rate 74 /min Geoff Miller MD Work Phone: [facility] [employer] 03-04-2022 14:15-0500 Respiratory rate 16 /min Geoff Miller MD Work Phone: [facility] [employer] 03-04-2022 14:15-0500 SaO2% (BldA) [Mass fraction] 100 % Geoff Miller MD Work Phone: [facility] [employer] 03-04-2022 14:15-0500 Systolic blood pressure 131 mm[Hg] Geoff Miller MD Work Phone: [facility] [employer] 03-04-2022 13:30-0500 Body temperature 97.2 [degF] Geoff Miller MD Work Phone: [facility] [employer] 03-04-2022 11:15-0500 Body height 172.7 cm Geoff Miller MD Work Phone: [facility] [employer] 03-04-2022 11:15-0500 Body mass index (BMI) [Ratio] 24.94 kg/m2 Geoff Miller MD Work Phone: [facility] [employer] 03-04-2022 11:15-0500 Body weight 74.39 kg Geoff Miller MD Work Phone: [facility] [employer] 03-01-2022 08:00-0500 Body mass index (BMI) [Ratio] 24.94 kg/m2 Nicholas Denton MD Work Phone: [employer] 03-01-2022 08:00-0500 Body temperature 98.2 [degF] Nicholas Denton MD Work Phone: [facility] [employer] 03-01-2022 08:00-0500 Body weight 74.39 kg Nicholas Denton MD Work Phone: [employer] 03-01-2022 08:00-0500 Diastolic blood pressure 61 mm[Hg] Nicholas Denton MD Work Phone: [facility] [employer] 03-01-2022 08:00-0500 Heart rate 89 /min Nicholas Denton MD Work Phone: [facility] 03-01-2022 08:00-0500 Respiratory rate 20 /min Nicholas Denton MD Work Phone: [facility] 03-01-2022 08:00-0500 SaO2% (BldA) [Mass fraction] 99 % Nicholas Denton MD Work Phone: [facility] [employer] 03-01-2022 08:00-0500 Systolic blood pressure 138 mm[Hg] Nicholas Denton MD Work Phone: [facility] [employer] 10-29-2021 07:30-0400 Body temperature 96.6 [degF] PHYSICIAN NO [facility] 10-29-2021 07:30-0400 Diastolic blood pressure 70 mm[Hg] PHYSICIAN NO [facility] 10-29-2021 07:30-0400 Heart rate 84 /min PHYSICIAN NO [facility] 10-29-2021 07:30-0400 Respiratory rate 18 /min PHYSICIAN NO [facility] 10-29-2021 07:30-0400 SaO2% (BldA) [Mass fraction] 97 % PHYSICIAN NO [facility] 10-29-2021 07:30-0400 Systolic blood pressure 110 mm[Hg] PHYSICIAN NO [facility] 10-27-2021 14:15-0400 Body height 172.72 cm PHYSICIAN NO [facility] 10-26-2021 20:08-0400 Body weight 58.96 kg PHYSICIAN NO [facility] 08-17-2021 16:45-0400 Body height 175.26 cm Kia Sharma CNP Work Phone: [facility] Work Phone: 08-17-2021 16:45-0400 Body mass index (BMI) [Ratio] 20 kg/m2 Kia Sharma CNP Work Phone: [facility] Work Phone: 08-17-2021 16:45-0400 Body surface area Derived from formula 1.75 m2 Kia Sharma CNP Work Phone: [facility] Work Phone: 08-17-2021 16:45-0400 Body surface area Derived from formula 1.7 m2 Mariposa Perla SYNTHETIC DEPARTMENT SUPERVISOR Work Phone: [facility] Work Phone: 08-17-2021 16:45-0400 Body temperature 96.7 [degF] Kia Edith SYNTHETIC DEPARTMENT SUPERVISOR Work Phone: [facility] Work Phone: 08-17-2021 16:45-0400 Body weight 61.33 kg Kia Sharma SYNTHETIC DEPARTMENT SUPERVISOR Work Phone: [facility] Work Phone: 08-17-2021 16:45-0400 Diastolic blood pressure 64 mm[Hg] Kia Sharma SYNTHETIC DEPARTMENT SUPERVISOR Work Phone: [facility] Work Phone: 08-17-2021 16:45-0400 Heart rate 67 /min Kia Sharma SYNTHETIC DEPARTMENT SUPERVISOR Work Phone: [facility] Work Phone: 08-17-2021 16:45-0400 SaO2% (BldA) [Mass fraction] 99 % Kia Sharma SYNTHETIC DEPARTMENT SUPERVISOR Work Phone: [facility] Work Phone: 08-17-2021 16:45-0400 Systolic blood pressure 110 mm[Hg] Kia Sharma SYNTHETIC DEPARTMENT SUPERVISOR Work Phone: [facility] Work Phone: 07-15-2021 15:57-0400 Body height 175.26 cm Kia Sharma SYNTHETIC DEPARTMENT SUPERVISOR Work Phone: [facility] Work Phone: 07-15-2021 15:57-0400 Body mass index (BMI) [Ratio] 19.8 kg/m2 Kia Sharma CNP Work Phone: [facility] Work Phone: 07-15-2021 15:57-0400 Body surface area Derived from formula 1.74 m2 Kia Sharma CNP Work Phone: [facility] Work Phone: 07-15-2021 15:57-0400 Body temperature 98.1 [degF] Kia Sharma SYNTHETIC DEPARTMENT SUPERVISOR Work Phone: [facility] Work Phone: 07-15-2021 15:57-0400 Body weight 60.78 kg Kia Sharma CNP Work Phone: [facility] Work Phone: 07-15-2021 15:57-0400 Diastolic blood pressure 62 mm[Hg] Kia Sharma CNP Work Phone: [facility] Work Phone: 07-15-2021 15:57-0400 Heart rate 68 /min Kia Sharma CNP Work Phone: [facility] Work Phone: 07-15-2021 15:57-0400 Heart Rate Rhythm 1 1 Kia Sharma CNP Work Phone: [facility] Work Phone: 07-15-2021 15:57-0400 SaO2% (BldA) [Mass fraction] 98 % Kia Sharma CNP Work Phone: [facility] Work Phone: 07-15-2021 15:57-0400 Systolic blood pressure 108 mm[Hg] Kia Sharma SYNTHETIC DEPARTMENT SUPERVISOR Work Phone: [facility] Work Phone: 07-01-2021 17:32-0400 Body height 175.26 cm Kia Sharma CNP Work Phone: [facility] Work Phone: 07-01-2021 17:32-0400 Body mass index (BMI) [Ratio] 20.3 kg/m2 Kia Sharma CNP Work Phone: [facility] Work Phone: 07-01-2021 17:32-0400 Body surface area Derived from formula 1.76 m2 Kiafranco Sharma CNP Work Phone: [facility] Work Phone: 07-01-2021 17:32-0400 Body temperature 97.5 [degF] Kia Sharma CNP Work Phone: [facility] Work Phone: 07-01-2021 17:32-0400 Body weight 62.32 kg Kiafranco Sharma CNP Work Phone: [facility] Work Phone: 07-01-2021 17:32-0400 Diastolic blood pressure 58 mm[Hg] Kia Sharma CNP Work Phone: [facility] Work Phone: 07-01-2021 17:32-0400 Heart rate 775 /min Kia Sharma CNP Work Phone: [facility] Work Phone: 07-01-2021 17:32-0400 Heart Rate Rhythm 1 1 Kia Sharma CNP Work Phone: [facility] Work Phone: 07-01-2021 17:32-0400 SaO2% (BldA) [Mass fraction] 97 % Kia Sharma CNP Work Phone: [facility] Work Phone: 07-01-2021 17:32-0400 Systolic blood pressure 116 mm[Hg] Kia Sharma SYNTHETIC DEPARTMENT SUPERVISOR Work Phone: [facility] Work Phone: 05-28-2021 18:41-0400 Body height 175.26 cm Kia Sharma CNP Work Phone: [facility] Work Phone: 05-28-2021 18:41-0400 Body mass index (BMI) [Ratio] 19.6 kg/m2 Kia Sharma CNP Work Phone: [facility] Work Phone: 05-28-2021 18:41-0400 Body surface area Derived from formula 1.74 m2 Kia Edith BANSAL Work Phone: [facility] Work Phone: 05-28-2021 18:41-0400 Body temperature 97.7 [degF] Kiafranco Sharma SYNTHETIC DEPARTMENT SUPERVISOR Work Phone: [facility] Work Phone: 05-28-2021 18:41-0400 Body weight 60.33 kg Kia Sharma SYNTHETIC DEPARTMENT SUPERVISOR Work Phone: [facility] Work Phone: 05-28-2021 18:41-0400 Diastolic blood pressure 76 mm[Hg] Kia Sharma CNP Work Phone: [facility] Work Phone: 05-28-2021 18:41-0400 Heart rate 83 /min Kia Sharma CNP Work Phone: [facility] Work Phone: 05-28-2021 18:41-0400 SaO2% (BldA) [Mass fraction] 98 % Kia Sharma CNP Work Phone: [facility] Work Phone: 05-28-2021 18:41-0400 Systolic blood pressure 122 mm[Hg] Kia Sharma CNP Work Phone: [facility] Work Phone: 10-14-2020 13:00-0400 Diastolic blood pressure 68 mm[Hg] Anthony Galloway MD Work Phone: [employer] Work Phone: 10-14-2020 13:00-0400 Heart rate 60 /min Anthony Galloway MD Work Phone: [employer] Work Phone: 10-14-2020 13:00-0400 Respiratory rate 16 /min Anthony Galloway MD Work Phone: [employer] Work Phone: 10-14-2020 13:00-0400 SaO2% (BldA) [Mass fraction] 99 % Anthony Galloway MD Work Phone: [employer] Work Phone: 10-14-2020 13:00-0400 Systolic blood pressure 114 mm[Hg] Anthony Galloway MD Work Phone: [employer] Work Phone: 10-14-2020 12:25-0400 Body temperature 97.39 [degF] Anthony Galloway MD Work Phone: [employer] Work Phone: 10-14-2020 09:35-0400 Body height 172.7 cm Anthony Galloway MD Work Phone: [employer] Work Phone: 10-14-2020 09:35-0400 Body mass index (BMI) [Ratio] 20.13 kg/m2 Anthony Galloway MD Work Phone: [employer] Work Phone: 10-14-2020 09:35-0400 Body weight 60.06 kg Anthony Galloway MD Work Phone: [employer] Work Phone: 05-27-2020 22:19-0400 Body Temperature 97.5 [degF] [employer] Work Phone: 05-27-2020 22:19-0400 BP Diastolic 79 mm[Hg] [employer] Work Phone: 05-27-2020 22:19-0400 BP Systolic 133 mm[Hg] [employer] Work Phone: 05-27-2020 22:19-0400 Pulse (Heart Rate) 94 /min [employer] Work Phone: 05-27-2020 22:19-0400 Pulse Oximetry 98 % [employer] Work Phone: 05-27-2020 22:19-0400 Respiratory Rate 16 /min [employer] Work Phone: 04-03-2020 16:21-0500 BMI (Body Mass Index) 21.9 kg/m2 [employer] [facility] Work Phone: 04-03-2020 16:21-0500 Body Temperature 97.9 [degF] [facility] Work Phone: 04-03-2020 16:21-0500 Body weight 67.13 kg [place] [facility] Work Phone: 04-03-2020 16:21-0500 BP Diastolic 82 mm[Hg] Kia Edith [facility] Work Phone: 04-03-2020 16:21-0500 BP Systolic 138 mm[Hg] [place] Edith [facility] Work Phone: 04-03-2020 16:21-0500 BSA (Body Surface Area) 1.82 m2 [facility] Work Phone: 04-03-2020 16:21-0500 Height 175.26 cm [facility] Work Phone: 04-03-2020 16:21-0500 Pulse (Heart Rate) 77 /min [facility] Work Phone: 04-03-2020 16:21-0500 Pulse Oximetry 96 % [facility] Work Phone: 04-03-2020 16:21-0500 Respiratory Rate 18 /min [facility] Work Phone: 04-03-2020 16:21-0500 SaO2% (BldA) [Mass fraction] 96 % [facility] Work Phone: [facility] Work Phone: 03-20-2020 11:57-0500 BMI (Body Mass Index) 21.4 kg/m2 [facility] Work Phone: 03-20-2020 11:57-0500 Body weight 65.77 kg [facility] Work Phone: 03-20-2020 11:57-0500 BSA (Body Surface Area) 1.8 m2 [facility] Work Phone: 03-20-2020 11:57-0500 Height 175.26 cm [facility] Work Phone: 02-25-2020 21:28-0500 BMI (Body Mass Index) 23.22 kg/m2 [facility] [place] 02-25-2020 21:28-0500 Body Temperature 98.2 [degF] [facility] 02-25-2020 21:28-0500 Body weight 70.31 kg [facility] 02-25-2020 21:28-0500 BP Diastolic 76 mm[Hg] [facility] 02-25-2020 21:28-0500 BP Systolic 144 mm[Hg] [facility] [place] 02-25-2020 21:28-0500 Height 174 cm [facility] [place] 02-25-2020 21:28-0500 Pulse (Heart Rate) 73 /min [facility] [place] 02-25-2020 21:28-0500 Pulse Oximetry 100 % [facility] [place] 02-25-2020 21:28-0500 Respiratory Rate 16 /min [facility] [place] 02-06-2020 17:44-0500 Respiratory Rate 16 /min [facility] 02-06-2020 17:19-0500 BMI (Body Mass Index) 23.57 kg/m2 [facility] 02-06-2020 17:19-0500 Body Temperature 99.61 [degF] [facility] [facility] 02-06-2020 17:19-0500 Body weight 70.31 kg [facility] 02-06-2020 17:19-0500 BP Diastolic 60 mm[Hg] [facility] 02-06-2020 17:19-0500 BP Systolic 120 mm[Hg] [facility] 02-06-2020 17:19-0500 Height 172.7 cm [facility] 02-06-2020 17:19-0500 Pulse (Heart Rate) 81 /min [facility] 02-06-2020 17:19-0500 Pulse Oximetry 98 % [facility] 12-24-2019 12:27-0400 BMI (Body Mass Index) 23.42 kg/m2 [facility] 12-24-2019 12:27-0400 Body Temperature 97.9 [degF] [facility] 12-24-2019 12:27-0400 Body weight 69.85 kg [facility] 12-24-2019 12:27-0400 BP Diastolic 64 mm[Hg] [facility] [place] 12-24-2019 12:27-0400 BP Systolic 122 mm[Hg] [facility] 12-24-2019 12:27-0400 Pulse (Heart Rate) 68 /min [facility], [place] 12-24-2019 12:27-0400 Pulse Oximetry 99 % [facility], [place] 12-24-2019 12:27-0400 Respiratory Rate 16 /min [facility], [place] NEGATED: Highlighted row BMI (Body Mass Index) [facility] NEGATED: Highlighted row BMI (Body Mass Index) Bryce [facility] NEGATED: Highlighted row BMI (Body Mass Index) Bryce [facility] NEGATED: Highlighted row Body [facility]: Highlighted row Body Temperature Bryce [facility] NEGATED: Highlighted row Body Temperature Bryce [facility] NEGATED: Highlighted row [facility] NEGATED: Highlighted row Body weight Bryce [facility] NEGATED: Highlighted row Body weight Bryce [facility] NEGATED: Highlighted row BP Diastolic Bryce [facility] NEGATED: Highlighted row BP Diastolic Bryce [facility] NEGATED: Highlighted row BP Diastolic Bryce [facility] NEGATED: Highlighted row BP Systolic Bryce [facility] NEGATED: Highlighted row BP Systolic Bryce [facility] NEGATED: Highlighted row BP Systolic Bryce [facility] NEGATED: Highlighted row Height Bryce [facility] NEGATED: Highlighted row Height Bryce [facility] NEGATED: Highlighted row Height Bryce [facility] NEGATED: Highlighted row Pulse (Heart Rate) [facility] NEGATED: Highlighted row Pulse (Heart Rate) Bryce [facility] NEGATED: Highlighted row Pulse (Heart Rate) Bryce [facility] NEGATED: Highlighted row Pulse [facility] Highlighted row Pulse [facility]xim[facility] NEGATED: Highlighted row Pulse Oximetry [facility] NEGATED: Highlighted row Respiratory Rate Bryce [facility] NEGATED: Highlighted row Respiratory Rate Byr[facility] NEGATED: Highlighted row Respiratory Rate Bryce [facility] Encounters Encounter Date Encounter Type Care Provider Facility Start: 07-06-2023 End: 07-06-2023 ambulatory YURIY DALJIT Not Available Start: 06-30-2023 End: 06-30-2023 Emergency department patient visit MARTIN REAL [facility] Start: 06-20-2023 End: 06-20-2023 ambulatory YURIY DALJIT Not Available Start: 05-23-2023 End: 05-23-2023 ambulatory YURIY DALJIT Not Available Start: 05-18-2023 End: 05-18-2023 Emergency department patient visit [facility] Start: 05-01-2023 End: 05-02-2023 ambulatory [facility] Start: 05-01-2023 End: 05-01-2023 Subsequent hospital visit by physician Kia Leo CNP Work Phone: [facility] Start: 04-27-2023 End: 04-27-2023 ambulatory YURIY DALJIT Not Available Start: 08-03-2022 End: 08-03-2022 Emergency department patient visit SAMARA DOMINGUEZ [facility] Start: 08-03-2022 End: 08-03-2022 Emergency department patient visit Samara Dominguez MD Work Phone: [facility] ED Comment on above: Flank pain (Primary Dx); Urinary tract infection without hematuria, site unspecified Start: 07-27-2022 End: 07-27-2022 FQHC visit, estab pt Maripoas Duncan SYNTHETIC DEPARTMENT SUPERVISOR Work Phone: [facility] Work Phone: Start: 06-03-2022 End: 06-05-2022 Subsequent hospital visit by physician Kulwinder Das Radiologist [facility] Ultrasound Comment on above: Abscess of female br east Start: 04-24-2022 End: 04-24-2022 Emergency department patient visit Kia Leo CNP Work Phone: [facility] ED Comment on above: Nausea vomiting and diarrhea (Primary Dx) Start: 03-15-2022 End: 03-15-[address] YURIY SABILLON Facility:[facility] Start: 03-04-2022 End: 03-04-2022 Subsequent hospital visit by physician Geoff Miller MD Work Phone: [facility] OR Comment on above: Abscess of right lynette ast (Primary Dx) Start: 03-01-2022 End: 03-01-2022 Emergency department patient visit Nicholas Denton MD Work Phone: [facility] ED Comment on above: Cellulitis of right breast (Primary Dx) Start: 10-26-2021 End: 10-29-2021 Evaluation and management of inpatient PHYSICIAN NO [facility] Facility:[facility] Start: 10-26-2021 End: 10-29-2021 Evaluation and management of inpatient PHYSICIAN NO [facility] [place] [address] Start: 08-17-2021 End: 08-17-2021 FQHC visit, estab pt Halima Argueta [facility] Work Phone: [facility] Work Phone: Start: 08-17-2021 End: 08-17-2021 FQHC visit, estab pt Kia Sharma SYNTHETIC DEPARTMENT SUPERVISOR Work Phone: [facility] Work Phone: Start: 07-15-2021 End: 07-15-2021 FQHC visit, estab pt Halima Argueta [facility] Work Phone: [facility] Work Phone: Start: 07-15-2021 End: 07-15-2021 FQHC visit, estab pt Kia Sharma SYNTHETIC DEPARTMENT SUPERVISOR Work Phone: [facility] Work Phone: Start: 07-01-2021 End: 07-01-2021 FQHC visit, estab pt Kia Sharma SYNTHETIC DEPARTMENT SUPERVISOR Work Phone: [facility] Work Phone: Start: 05-29-2021 End: 05-29-2021 ambulatory KIA EDITH [facility] Start: 05-28-2021 End: 05-28-2021 Subsequent hospital visit by physician AGNES PRESLEY [facility] Start: 05-28-2021 End: 05-28-2021 FQHC visit, estab pt Kia Sharma [facility] Work Phone: [facility] Work Phone: Start: 03-25-2021 End: 03-25-2021 Subsequent hospital visit by physician NELL[facility] Laboratory Comment on above: Vaginal discharge Start: 03-10-2021 End: 03-10-2021 Subsequent hospital visit by physician [facility] Comment on above: Irregular menstrual cycle Start: 10-14-2020 End: 10-14-2020 Subsequent hospital visit by physician Anthony Galloway MD Work Phone: [facility] OR Comment on above: 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) Start: 10-09-2020 End: 10-13-2020 Patient encounter status [facility] Schedule [facility] PRE ADMIT Start: 10-09-2020 End: 10-13-2020 Subsequent hospital visit by physician Kulwinder Renee19 Pat Screening Schedule [facility] PRE ADMIT Comment on above: Preop testing Start: 09-25-2020 End: 09-25-2020 Patient encounter status [facility] Schedule [facility] PRE ADMIT Start: 09-25-2020 End: 09-25-2020 Subsequent hospital visit by physician Kulwinder Renee19 Pat Screening Schedule [facility] PRE ADMIT Comment on above: Preop testing (Prima ry Dx) Start: 08-19-2020 End: 08-19-2020 Subsequent hospital visit by physician NELL[facility] Laboratory Comment on above: 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 Start: 05-27-2020 End: 05-27-2020 Emergency department patient visit Sid Norris Work Phone: [facility] ED Comment on above: Dental infection (Pr imary Dx) Start: 04-03-2020 End: 04-03-2020 Established patient Kia Sharma Work Phone: [facility] Work Phone: Start: 04-03-2020 End: 04-03-2020 General Kia Sharma CNP Work Phone: [facility] Work Phone: Start: 04-03-2020 End: 04-03-2020 General Halima Argueta [facility] Work Phone: [facility] Work Phone: Start: 04-02-2020 End: 04-02-2020 Subsequent hospital visit by physician NE[facility] Laboratory Comment on above: Women's annual routi ne gynecological examination Start: 03-20-2020 End: 03-20-2020 General Halima Argueta Work Phone: [facility] Work Phone: Start: 03-20-2020 End: 03-20-2020 Telemedicine consultation with patient Kia Sharma Work Phone: [facility] Work Phone: Start: 02-25-2020 End: 02-25-2020 Emergency department patient visit Sid Norris Work Phone: [facility] ED Comment on above: Bacterial vaginosis (Primary Dx); Vaginal bleeding Start: 02-06-2020 End: 02-06-2020 Emergency department patient visit [facility] ED Comment on above: Dental abscess (Prim rachele Dx); Dental caries Start: 12-24-2019 End: 12-24-2019 Emergency department patient visit [facility] ED Comment on above: Dental infection (Pr imary Dx) Start: 02-13-2018 End: 02-15-2018 Evaluation and management of inpatient [facility] Start: 02-20-2016 End: 02-23-2016 Evaluation and management of inpatient [facility] Start: 05-12-2015 End: 05-15-2015 [facility] Start: 02-11-2014 End: 02-14-2014 Evaluation and management of inpatient [facility] Start: 04-28-2007 End: 05-28-2007 [facility] Start: 02-27-2007 End: 03-29-2007 [facility] Start: 01-27-2007 End: 02-26-2007 [facility] Start: 11-27-2006 End: 12-27-2006 [facility] Start: 09-27-2006 End: 10-27-2006 [facility] Start: 08-27-2006 End: 09-26-2006 [facility] Start: 07-28-2006 End: 09-26-2006 [facility] Start: 06-27-2006 End: 07-27-2006 [facility] Start: 05-28-2006 End: 06-26-2006 [facility] Start: 04-27-2006 End: 05-27-2006 [facility] Start: 03-30-2006 End: 04-26-2006 [facility] Start: 02-27-2006 End: 03-29-2006 [facility] Start: 01-27-2006 End: 02-26-2006 Discharged Recurring [facility] Start: 12-28-2005 End: 01-26-2006 [facility] Start: 11-27-2005 End: 12-27-2005 [facility] Start: 10-28-2005 End: 11-26-2005 [facility] Start: 09-27-2005 End: 11-26-2005 Discharged Recurring [facility] Start: 09-27-2005 End: 10-27-2005 Discharged Recurring [facility] Start: 08-27-2005 End: 09-26-2005 Discharged Recurring [facility] Start: 06-27-2005 End: 07-27-2005 Discharged Recurring [facility] Start: 04-27-2005 End: 05-27-2005 Discharged Recurring [facility] Start: 03-30-2005 End: 04-26-2005 Discharged Recurring [facility] Start: 02-27-2005 End: 03-29-2005 Discharged Recurring [facility] Start: 01-27-2005 End: 02-26-2005 Discharged Recurring [facility] Start: 12-28-2004 [facility] Start: 11-27-2004 End: 12-27-2004 [facility] Start: 11-27-2004 End: 12-27-2004 Discharged Recurring [facility] Start: 11-27-2004 Registered Recurring Bryce [facility] Start: 10-28-2004 End: 11-26-2004 Discharged Recurring [facility] Start: 10-28-2004 End: 11-26-2004 Discharged Recurring [facility] Start: 09-27-2004 End: 10-27-2004 Discharged Recurring [facility] Start: 09-27-2004 End: 10-27-2004 Discharged Recurring [facility] Start: 09-02-2004 End: 09-26-2004 [facility] Start: 09-02-2004 End: 09-26-2004 Discharged Recurring [facility] Start: 05-17-2000 End: 05-27-2000 Discharged Recurring [facility] Procedures Date Procedure Procedure Detail Performing Clinician Start: 05-01-2023 Blood typing serolog ic abo Yuriy Sabillon MD Work Phone: Start: 05-01-2023 Hemoglobin glycosyla bakari a1c Yuriy Sabillon MD Work Phone: Start: 05-01-2023 Iaad ia hepatitis b surface antigen Yuriy Sabillon MD Work Phone: Start: 08-03-2022 Ct abdomen & pelvis w/o contrast material Samara Dominguez MD Work Phone: Start: 08-03-2022 Urinalysis microscop ic only Samara Dominguez MD Work Phone: Start: 08-03-2022 Urnls dip stick/tabl et rgnt auto w/o microscopy Samara Dominguez MD Work Phone: Start: 08-03-2022 Comprehensive metabo lic panel Samara Dominguez MD Work Phone: Start: 07-27-2022 Most recent diastoli c blood pressure < 80 mm hg Mariposa Perla SYNTHETIC DEPARTMENT SUPERVISOR Work Phone: Start: 07-27-2022 Most recent systolic blood pressure <130 mm hg Mariposa Perla SYNTHETIC DEPARTMENT SUPERVISOR Work Phone: Start: 07-27-2022 Urine test visual color cmprsn meths Mariposa Perla SYNTHETIC DEPARTMENT SUPERVISOR Work Phone: Start: 06-03-2022 Diagnostic mammograp hy computer-aided detcj bi Geoff Miller MD Work Phone: Start: 06-03-2022 Us breast uni real t jama with image limited Geoff Miller MD Work Phone: Start: 04-24-2022 Urinalysis microscop ic only Christopher Stephenson PA-C Work Phone: Start: 04-24-2022 Urnls dip stick/tabl et rgnt auto w/o microscopy Christopher Stephenson PA-C Work Phone: Start: 04-24-2022 Ct abdomen & pelvis w/contrast material Christopher Stephenson PA-C Work Phone: Start: 04-24-2022 Comprehensive metabo lic panel Christopher Sachin PA-C Work Phone: Start: 03-04-2022 Urine test visual color cmprsn meths Peterson Benito POWER SYSTEM DISPATCHER - SYNTHETIC DEPARTMENT SUPERVISOR Work Phone: Start: 08-17-2021 Most recent diastoli c blood pressure < 80 mm hg Kia Sharma SYNTHETIC DEPARTMENT SUPERVISOR Work Phone: Start: 08-17-2021 Most recent systolic blood pressure <130 mm hg Kai Sharma SYNTHETIC DEPARTMENT SUPERVISOR Work Phone: Start: 08-17-2021 Psychotherapy w/hussein ent 30 minutes Halima Argueta [facility] Work Phone: Start: 07-15-2021 Most recent diastoli c blood pressure < 80 mm hg Kia Sharma [facility] Work Phone: Start: 07-15-2021 Most recent systolic blood pressure <130 mm hg Kia Sharma SYNTHETIC DEPARTMENT SUPERVISOR Work Phone: Start: 07-15-2021 Psychotherapy w/husseni ent 30 minutes Halima Argueta [facility] Work Phone: Start: 07-01-2021 Most recent diastoli c blood pressure < 80 mm hg Kia Sharma SYNTHETIC DEPARTMENT SUPERVISOR Work Phone: Start: 07-01-2021 Most recent systolic blood pressure <130 mm hg Kia Sharma SYNTHETIC DEPARTMENT SUPERVISOR Work Phone: Start: 05-28-2021 Antibody hiv-1&hiv-2 single result Kia Sharma [facility] Work Phone: Start: 05-28-2021 Most recent diastoli c blood pressure < 80 mm hg Kia Sharma SYNTHETIC DEPARTMENT SUPERVISOR Work Phone: Start: 05-28-2021 Most recent systolic blood pressure <130 mm hg Kia Sharma [facility] Work Phone: Start: 05-28-2021 Pt-focused hlth risk assmt score doc stnd instrm Kia Sharma [facility] Work Phone: Start: 05-28-2021 Viral screening Visit For: Scr eening Exam For Herpes Kia Sharma [facility] Work Phone: Start: 03-10-2021 End: 03-10-2021 Gonadotropin follicle stimulating hormone Anthony Galloway MD Work Phone: Start: 10-14-2020 Urine test visual color cmprsn meths Anthony Galloway MD Work Phone: Start: 10-09-2020 COVID-19 Sabas siddiqi MD Work Phone: Start: 04-02-2020 Microscopic observat ion [Identifier] in Cervix by Cyto stain Start: 03-20-2020 delivery only Kia Sharma Start: 03-20-2020 section Kia Sharma SYNTHETIC DEPARTMENT SUPERVISOR Work Phone: Start: 03-20-2020 Psychotherapy w/hussein ent 30 minutes Halima Argueta Work Phone: Start: 02-25-2020 Smr prim src wet boby nt nfct agt Sid A [employer] Work Phone: Start: 02-25-2020 Urinalysis microscop ic only Sid A Jr Work Phone: Start: 02-25-2020 Urine test visual color cmprsn meths Sid A [employer] Work Phone: Start: 02-25-2020 Urnls dip stick/tabl et rgnt auto w/o microscopy Sid A [employer] Work Phone: Start: 02-15-2018 DISCHARGE PATIENT JUSTINE LOO Start: 02-13-2018 IP CONSULT TO HISTOR Y AND PHYSICAL FEI LOO Start: 02-13-2018 DIET GENERAL FEI WIENER PACKER Start: 02-13-2018 FULL CODE FEI WIENER PACKER Start: 02-13-2018 URINE DRUG SCREEN JUSTINE AMINPTA Start: 02-13-2018 Urine test visual color cmprsn meths FEI AMINPTA Start: 02-13-2018 VITAL SIGNS FEI WIENER PACKER Start: 02-13-2018 PATIENT STATUS (DIRECT) FEI LOO SARS Antigen (LFIA) PHYSICIA N NO FAMILY Plan of Treatment Date Care Activity Detail Author Start: 03-21-2027 DTaP/Tdap/Td vaccine (2 - Td or Tdap) DTaP/Tdap/Td vaccine (2 - Td or Tdap) [facility] Start: 03-21-2027 DTaP/Tdap/Td vaccine (2 - Td) DTaP/Tdap/Td vaccine (2 - Td) [facility] [place], [place] Start: 04-02-2025 Screening for malign ant neoplasm of cervix [facility] Start: 04-02-2023 Screening for malign ant neoplasm of cervix [facility] Start: 09-27-2022 Influenza vaccination B ON [facility] Start: 08-25-2022 FQHC visit, estab pt Medical E stablished Patient [facility] Work Phone: Start: 07-27-2022 End: 07-27-2022 Patient education based on identified need [facility] Start: 07-27-2022 CBC W Auto Different ial panel - Blood [facility] Start: 04-25-2022 End: 04-25-2022 Patient encounter procedure 04/25/2022 Appointment Radiology Radiologist, [facility] Start: 03-04-2022 End: 03-04-2022 Incision & drainage abscess simple/single BREAST INCISION AND DRAINAGE Abscess of right breast 03/04/2022 12:36 PM EST [facility] Start: 10-29-2021 [facility] Work Phone: Start: 10-28-2021 Influenza vaccination Flu vacc ine (Season Ended) [facility] Start: 10-26-2021 Referral to Tunnel Kiln Operator [facility] Work Phone: Start: 10-26-2021 Hospital admission [facility] Work Phone: Start: 09-27-2021 Influenza vaccination Flu vaccine (# 1) [facility] Start: 09-16-2021 FQHC visit, estab pt Medical E stablished Patient [facility] Work Phone: Start: 08-17-2021 FQHC visit, estab pt Medical E stablished Patient [facility] Work Phone: Start: 08-17-2021 End: 08-17-2021 Patient education based on identified need [facility] Start: 07-15-2021 FQHC visit, estab pt Medical E stablished Patient [facility] Work Phone: Start: 07-15-2021 End: 07-15-2021 Patient education based on identified need [facility] Start: 07-01-2021 End: 07-01-2021 Patient education based on identified need [facility] Start: 05-28-2021 End: 05-28-2021 Patient education based on identified need [facility] Start: 04-14-2021 End: 04-14-2021 Patient encounter procedure 04/14/2021 Office Visit Obstetrics and Gynecology Anthony Galloway MD [address] [place], [place] [id number] [facility] OB[facility]OLOGY Part of [facility] Start: 03-05-2021 FQHC visit, estab pt Medical E stablished Patient [facility] Work Phone: Start: 10-28-2020 Influenza vaccination [facility] Start: 10-14-2020 End: 10-14-2020 Admission to same day surgery center 10/14/2020 Surgery IP Unit Anthony Galloway MD [address] [place], [place] [id number] DILATATION AND CURETTAGE L[facility] Comment on above: DILATATION AND CURET TAGE LEEP-ENDOCERVICAL CURETTAGE Start: 10-14-2020 Subsequent hospital visit by physician 10/14/2020 Hospital Encounter IP Unit Anthony Galloway MD [address] [place] [address] [phone] [facility] Start: 10-09-2020 End: 10-09-2020 Patient encounter procedure 10/09/2020 Appointment Pre-Admission Testing [facility] PRE ADMIT Start: 09-25-2020 End: 09-25-2021 COVID-19 COVID-19 Lab Routine Preop testing Expected: 09/25/2020, Expires: 09/25/2021 [facility] Work Phone: Comment on above: Expected: 09/25/2020 , Expires: 09/25/2021 Start: 04-23-2020 End: 04-23-2020 Procedure visit 04/23/2020 Procedure visit Obstetrics and Gynecology Anthony Galloway MD [address] [place], [place] [id number] [facility] Start: 04-03-2020 End: 04-03-2020 Patient education based on identified need [facility] Start: 04-03-2020 Medical Establ ished Patient [facility] Work Phone: Start: 03-20-2020 End: 03-20-2020 Patient education based on identified need [facility] Start: 10-29-2019 Influenza vaccination Flu vaccine (# 1) [place], [place] Start: 2014 Screening for malign ant neoplasm of cervix Cervical cancer screen [place], [place] Start: 2011 Hepatitis C screening Hepatitis C sc reen [facility] Start: 2009 COVID-19 Vaccine (1) COVID-19 Vaccin e (1) [facility] Work Phone: Start: 2008 HIV screening HIV screen [facility] Start: 2005 COVID-19 Vaccine (1) COVID-19 Vaccin e (1) [facility] Work Phone: Start: 2005 Depression Monitoring Depression Mon [facility] Start: 2005 Depression Screen Depression Screen [facility] Start: 2004 HPV vaccine (1 - 2-d ose series) HPV vaccine (1 - 2-dose series) [place], [place] Start: 1999 Pneumococcal 0-64 ye ars Vaccine (1 - PCV) Pneumococcal 0-64 years Vaccine (1 - PCV) [facility] Start: 1999 Pneumococcal 0-64 ye ars Vaccine (1 of 1 - PPSV23) Pneumococcal 0-64 years Vaccine (1 of 1 - PPSV23) [place] Start: 1999 Pneumococcal 0-64 ye ars Vaccine (1 of 2 - PPSV23) Pneumococcal 0-64 years Vaccine (1 of 2 - PPSV23) [facility] Start: 1998 COVID-19 Vaccine (1) COVID-19 Vaccin e (1) [facility] Start: 1994 Varicella vaccine (1 of 2 - 2-dose childhood series) Varicella vaccine (1 of 2 - 2-dose childhood series) [facility] Start: 1993 COVID-19 Vaccine (#1) COVID-19 Vacci ne (#1) [facility] Start: 1993 Hepatitis B vaccine (1 of 3 - 3-dose series) Hepatitis B vaccine (1 of 3 - 3-dose series) [facility] Start: 1993 Hepatitis C screening Hepatitis C sc reen [facility] [facility] End: 02-25-2020 C.trachomatis N.gonorrhoeae DNA C.trachomatis N.gonorrhoeae DNA Microbiology STAT One Time for 1 Occurrences starting 02/25/2020 until 02/25/2020 [facility] Comment on above: One Time for 1 Occur rences starting 02/25/2020 until 02/25/2020 C.trachomatis N.gonorrhoeae DNA C.trachomatis N.gonorrhoeae DNA Microbiology STAT 02/25/2020 10:29 PM EST [facility] Culture, Anaerobic a nd Aerobic [facility]: Comment on above: Release Upon Orderin g for 1 Occurrences starting 03/04/2022 End: 03-25-2021 Culture, Genital [employer] Work Phone: Comment on above: 1 Occurrences starti ng 03/25/2021 until 03/25/2021 End: 08-03-2022 Culture, Urine [employer] Phone: Comment on above: Once for 1 Occurrenc es starting 08/03/2022 until 08/03/2022 End: 05-01-2023 Culture, [facility]: Comment on above: Once for 1 Occurrenc es starting 05/01/2023 until 05/01/2023 End: 05-29-2021 Culture, Virus, Non Respiratory Culture, Virus, Non Respiratory Microbiology Routine Once for 1 Occurrences starting 05/29/2021 until 05/29/2021 [email or web address] Phone: Comment on above: Once for 1 Occurrenc es starting 05/29/2021 until 05/29/2021 Culture, Virus, Non Respiratory Culture, Virus, Non Respiratory Microbiology Routine 05/28/2021 11:57 PM EDT [email or web address] Phone: End: 04-02-2020 Cytopathology procedure, preparation of smear, genital source PAP SMEAR Lab Routine Women's annual routine gynecological examination 1 Occurrences starting 04/02/2020 until 04/02/2020 [facility] Comment on above: 1 Occurrences starti ng 04/02/2020 until 04/02/2020 End: 05-01-2023 HIV Screen [employer] Comment on above: Once for 1 Occurrenc es starting 05/01/2023 until 05/01/2023 End: 03-04-2022 INITIATE PACU OXYGEN THERAPY PROTOCOL Initiate PACU Oxygen Therapy Protocol Respiratory Care Routine Continuous until discontinued starting 03/04/2022 [employer] Work Phone: Comment on above: Continuous until dis continued starting 03/04/2022 Oxygen therapy [Mini mum Data Set] Initiate Oxygen Therapy Protocol Respiratory Care Routine Daily until discontinued starting 10/14/2020 [email or web address] Phone: Comment on above: Daily until disconti nued starting 10/14/2020 Oxygen therapy [Mini mum Data Set] Initiate Oxygen Therapy Protocol Respiratory Care Routine As Needed until discontinued starting 03/04/2022 [employer] Work Phone: Comment on above: As Needed until disc ontinued starting 03/04/2022 Patient Education Schizophrenia (DC) [facility] Behavioral Health DC Instructions [facility] Work Phone: Patient referral [facility] Work Phone: Phase I & II - meter ed glucose Phase I & II - metered glucose Point of Care Testing Routine As Needed until discontinued starting 10/14/2020 [email or web address] Phone: Comment on above: As Needed until disc ontinued starting 10/14/2020 End: 08-19-2020 Surgical Pathology Surgical Pathology Lab Routine HGSIL (high grade squamous intraepithelial lesion) on Pap smear of cervix 1 Occurrences starting 08/19/2020 until 08/19/2020 [email or web address] Phone: Comment on above: 1 Occurrences starti ng 08/19/2020 until 08/19/2020 Surgical Pathology Surgical Path ology Lab Routine Release Upon Ordering for 1 Occurrences starting 10/14/2020 [email or web address] Phone: Comment on above: Release Upon Orderin g for 1 Occurrences starting 10/14/2020 End: 05-01-2023 T. pallidum Ab [facility] [employer] Comment on above: Once for 1 Occurrenc es starting 05/01/2023 until 05/01/2023 Immunizations Immunization Date Immunization Notes [facility] Influenza, injectabl e, [place]in [place] Canine Kidney, preservative free, quadrivalent PHYSICIAN NO [facility] Payers Date Payer Category Payer Private Health Insurance [id number] 2021 Self-pay 1995 Unknown [id number] 2.16.8 [id number] 1995 Unknown [id number] 2.16. [id number] 1993 Unknown [id number] 2.16.84 [id number] 1993 Unknown [id number] 2.16.8 [id number] 1993 Unknown [id number] 2.16.8 [id number] 1993 Unknown [id number] 2.16.8 [id number] 1993 Unknown [id number] 2.16.8 [id number] 1993 Unknown [id number] 2.16.84 [id number] 1993 Unknown [id number] 2.16.84 [id number] 1993 Unknown [id number] 2.16.84 [id number] 1993 Unknown [id number] 2.16.84 [id number] 1961 Medicaid [id number] Unknown [id number] 2.16.8 [id number] Social History Date Type Detail Facility Start: 12-24-2019 End: 03-01-2022 Tobacco smoking status NHIS Current every day smoker [place], [place] History of tobacco use Cigarette Smoker M [place] Start: 12-24-2019 End: 08-03-2022 Cigarettes smoked current (pack per day) - Reported [place], [place] Start: 12-24-2019 End: 03-01-2022 Tobacco use and exposure Never used [place] Start: 12-24-2019 End: 08-03-2022 Alcohol intake Current non-drinker of alcohol (finding) [place], [place] Start: 1995 Sex Assigned At Not on file [place] Start: 02-19-2022 End: 04-24-2022 Exposure to SARS-CoV-2 (event) Not sure [place], [place] Assertion Exposure to poll ution (event) [facility] Tobacco user (finding) [facility] Tobacco smoking status Unknown i f ever smoked [facility] Work Phone: Assertion Social drinker (finding) [facility] Sexually active (finding) [facility] Assertion [facility] Assertion Gender identity finding (finding) [facility] Finding of sexua l orientation (finding) [facility] Moderate cigaret te smoker (10-19 cigs/day) (finding) [facility] Heavy cigarette smoker (20-39 cigs/day) (finding) [facility] Start: 10-27-2021 Assertion Smoker (finding) [facility] Start: 1995 Sex Assigned At Female F [facility] Start: 03-01-2022 History SDOH Alcohol Frequency 1 [employer] Work Phone: Start: 03-01-2022 History SDOH Alcohol Std Drinks 0 [employer] Work Phone: Start: 03-04-2022 Alcohol Comment barely ever- sociall y [employer] Work Phone: Start: 03-01-2022 End: 08-03-2022 Alcohol Use Disorder Identification Test - Consumption [AUDIT-C] [employer] How often to you hav e a drink containing alcohol? Never [employer] NEGATED: Highlighted row Assertion [facility] NEGATED: Highlighted row Assertion Current drinker of alcohol (finding) [facility] NEGATED: Highlighted row Assertion Exposure to pollution (event) [facility] Work Phone: Goals Date Patient Goal Desired Activity /State Functional Status Date Assessment Result Facility 10-29-2021 Functional status Patient at Baseline [facility] Work Phone: Mental Status Date Assessment Result Facility 10-29-2021 Cognitive function Cognitive Sta tus Patient at Baseline [facility] Work Phone: Cognitive function Cognitive fun ctioning was normal Cognitive function finding (finding) [facility] Work Phone: Clinical Notes 03-20-2020 to 08-03-2022 Discharge InstructionsAttachments Note Date & Type Note Facility 08-03-2022 Hospital Discharg e instructions Samara Dominguez MD - 08/03/2022 9:33 AM EDT Patient is a to drink plenty of water. Motrin and or Tylenol as needed for pain. Zofran if needed for nausea or vomiting. Take Keflex as directed until complete. Yogurt 2-3 times a day. Follow-up with your primary care provider in 2 to 3 days if symptoms have not resolved. You must seek medical attention immediately should you develop any worsening symptoms or any acute concerns The following attachments cannot be sent through Care Everywhere.Flank Pain (Citizen Of [place])UTI (Urinary Tract Infection): Female (Citizen Of [place])documented in this encounter SARWAT MCDUFFIE [facility] Work Phone: 07-27-2022 Instructions Includes: Instructions for all patient encounters Discussed nutritional needs teach healthy choices including fruits and vegetables Last Documented On 3 6:56PM ; [facility] Patient education about a pr oper diet Last Documented On 3 6:56PM ; [facility] Patient education about an a sthma action plan Last Documented On 3 8:31AM ; [facility] Discussed concerns about exe rcise : promote physical activity ~ ~Will add symbicort ~ ~Follow up in one month Last Documented On 3 10:19AM ; [facility] Discussed current self-care methods/coping skills. ~Validated and normalized pt?s feelings while assisting patient process recent events. ~Discussed ongoing counseling. ~Discussed lifestyle changes to address chronic illness. ~Supported patient's personal health goals Last Documented On 2 4:59PM ; [facility] Discussed nutritional needs teach healthy choices including fruits and vegetables Last Documented On 2 4:50PM ; [facility] Patient education about a pr oper diet Last Documented On 2 4:50PM ; [facility] Discussed concerns about exe rcise : promote physical activity Last Documented On 2 4:50PM ; [facility] Discussed current self-care methods/coping skills. ~Validated and normalized pt?s feelings while assisting patient process recent events. ~Discussed ongoing counseling. ~Discussed lifestyle changes to address chronic illness. ~Supported patient's personal health goals Last Documented On 2 8:09PM ; [facility] Discussed nutritional needs teach healthy choices including fruits and vegetables Last Documented On 2 4:02PM ; [facility] Patient education about a pr oper diet Last Documented On 2 4:02PM ; [facility] Discussed concerns about exe rcise : promote physical activity Last Documented On 2 4:02PM ; [facility] Discussed nutritional needs teach healthy choices including fruits and vegetables Last Documented On 2 5:37PM ; [facility] Patient education about a pr oper diet Last Documented On 2 5:37PM ; [facility] Discussed concerns about exe rcise : promote physical activity Last Documented On 2 5:37PM ; [facility] Discussed nutritional needs teach healthy choices including fruits and vegetables Last Documented On 2 6:48PM ; [facility] Patient education about a pr oper diet Last Documented On 2 6:48PM ; [facility] Discussed concerns about exe rcise : promote physical activity Last Documented On 2 6:48PM ; [facility] Discussed nutritional needs teach healthy choices including fruits and vegetables Last Documented On 1 4:21PM ; [facility] Patient education about a pr oper diet Last Documented On 1 4:21PM ; [facility] Discussed concerns about exe rcise : promote physical activity Last Documented On 1 4:21PM ; [facility] Explored current self-care m ethods and encouraged patient to continue using them Last Documented On 1 7:54PM ; [facility] Discussed nutritional needs teach healthy choices including fruits and vegetables Last Documented On 1 11:53AM ; [facility] Patient education about a pr oper diet Last Documented On 1 11:53AM ; [facility] Discussed concerns about exe rcise : promote physical activity Last Documented On 1 11:53AM ; [facility] Work Phone: 1(103) 422-545705-31-2023 Evaluation note Includes: Assessments for all patient encounters Findings Encounter Date [Body mass index [BMI] 22.0- 22.9, adult] assessment of body mass index Medical Established Patient with Mariposa Duncan [employer] 07/27/2022 Last Documented On 3 10:19AM ; [facility] Diabetes Risk Test Score was 0.0 score 07/27/2022 Medical Established Patient with Mariposa Perla [employer]MENT SUPERVISOR 07/27/2022 Last Documented On 3 10:19AM ; [facility] Esophageal reflux without esophagitis Me dical Established Patient with Mariposa Perla [employer]PARTMENT SUPERVISOR 07/27/2022 Last Documented On 3 10:19AM ; [facility] Schizoaffective disorder Established Patient with Halima Argueta [facility] 08/17/2021 Last Documented On 2 9:40PM ; [facility] Asthma Medical Established Patient with Kia Edith [facility] 08/17/2021 Last Documented On 2 6:20PM ; [facility] Esophageal reflux without esophagitis Me dical Established Patient with Kia Edith [facility] 08/17/2021 Last Documented On 2 6:20PM ; [facility] Schizoaffective disorder Medical Establi shed Patient with Kia Edith [employer]MENT SUPERVISOR 08/17/2021 Last Documented On 2 6:20PM ; [facility] Z68.20 - Body mass index [BM I] 20.0-20.9, adult Medical Established Patient with Kia Edith [facility] 08/17/2021 Last Documented On 2 6:20PM ; [facility] Schizoaffective disorder Established Patient with Halima Argueta [facility] 07/15/2021 Last Documented On 2 11:18AM ; [facility] Schizoaffective disorder Established Patient with Halima Argueta [facility] 07/15/2021 Last Documented On 2 11:18AM ; [facility] Bipolar disorder NOS Medical Established Patient with Kia Edith [facility] 07/15/2021 Last Documented On 2 9:30AM ; [facility] Esophageal reflux without esophagitis Me dical Established Patient with Kia Edith [facility] 07/15/2021 Last Documented On 2 9:30AM ; [facility] Herpes simplex type I Medical Established Patien t with Kia Sharma [facility] 07/15/2021 Last Documented On 2 9:30AM ; [facility] Z68.1 - Body mass index [BMI ] 19.9 or less, adult Medical Established Patient with Kia Sahrma [employer] SUPERVISOR 07/15/2021 Last Documented On 2 9:30AM ; [facility] Asthma Medical Established Patient with Kia Edith [employer]MENT SUPERVISOR 07/01/2021 Last Documented On 2 7:44PM ; [facility] Bipolar disorder NOS Medical Established Patient with Kia Edith [employer]MENT SUPERVISOR 07/01/2021 Last Documented On 2 7:44PM ; [facility] Herpes simplex type I Medical Established Patien t with Kia Edith [employer]MENT SUPERVISOR 07/01/2021 Last Documented On 2 7:44PM ; [facility] Schizoaffective disorder Medical Establi shed Patient with Kia Edith [employer]MENT SUPERVISOR 07/01/2021 Last Documented On 2 7:44PM ; [facility] Z68.20 - Body mass index [BM I] 20.0-20.9, adult Medical Established Patient with Kia Sharma [employer] SUPERVISOR 07/01/2021 Last Documented On 2 7:44PM ; [facility] Diabetes Risk Test Score was one score 05/28/2021 Medical Established Patient with Kia Sharma [employer]PARTMENT SUPERVISOR 05/28/2021 Last Documented On 2 8:39AM ; [facility] Herpes simplex type I Medical Established Patien t with Kia Sharma [employer]PARTMENT SUPERVISOR 05/28/2021 Last Documented On 2 8:39AM ; [facility] No cough Medical Established Patient with Kia Sharma [employer]PARTMENT SUPERVISOR 05/28/2021 Last Documented On 2 8:39AM ; [facility] Visit for: screening for hum an immunodeficiency virus Medical Established Patient with Kia Sharma [employer]MENT SUPERVISOR 05/28/2021 Last Documented On 2 8:39AM ; [facility] Z11.59 - Encounter for nettie kauffman for other viral diseases Medical Established Patient with Kia Edith [employer] SUPERVISOR 05/28/2021 Last Documented On 2 8:39AM ; [facility] Z68.1 - Body mass index [BMI ] 19.9 or less, adult Medical Established Patient with Kia Edith [employer]MENT SUPERVISOR 05/28/2021 Last Documented On 2 8:39AM ; [facility] Asthma Medical Established Patient with Kia Sharma [employer]MENT SUPERVISOR 04/03/2020 Last Documented On 1 1:12PM ; [facility] Body mass index Medical Established Patient with Kia Sharma [employer]PARTMENT SUPERVISOR 04/03/2020 Last Documented On 1 1:12PM ; [facility] Esophageal reflux without esophagitis Me dical Established Patient with Kia Sharma [employer]MENT SUPERVISOR 04/03/2020 Last Documented On 1 1:12PM ; [facility] Lower backache Medical Established Patient with Kia Sharma [employer]MENT SUPERVISOR 04/03/2020 Last Documented On 1 1:12PM ; [facility] Bipolar disorder (per denia vega, diagnosed w/both Bipolar I & II) [facility] Last Documented On 1 7:55PM ; [facility] Schizoaffective disorder (pe r patient report) Telebehavioral Health [facility] Marroquins [facility] 03/20[facility]2020 Last Documented On 1 7:55PM ; [facility] Asthma Telemedicine New Patient with An michelle Sharma [employer]MENT SUPERVISOR 03/20/2020 Last Documented On 1 9:48AM ; [facility] Lumbago Telemedicine New Patient with An michelle Sharma [employer]MENT SUPERVISOR 03/20/2020 Last Documented On 1 9:48AM ; [facility] Z68.21 - Body mass index [BM I] 21.0-21.9, adult Telemedicine New Patient with Kia Sharma [employer] SUPERVISOR 03/20/2020 Last Documented On 1 9:48AM ; [facility] Work Phone: 1(714) 813-619205-31-2023 Progress note* Progress note Date Encounter Last Documented by 07/27/2022 Medical Established Patient Last documented on 07/28/2022; 10:19 AM, Mariposa Duncan CNP; [facility] Active Problems & Conditions - J45.998 - Asthma - M54.50 - Backache Lower - K21.9 - Esophageal Reflux Without Esophagitis - 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 - F25.0 - Schizoaffective Disorder Chief Complaint The Chief Complaint is: Patient states feels like gerd is coming back, patient states that burps smell like rotten eggs or lining sewer went to ER for migraines. Referred Here Not referred by urgent care clinic. Referred by emergency room. No prior encounters. - Data to be reviewed: no clinical lab tests History of Present Illness Bennett Vaughn is a 27 year old female. - Allergy list reviewed - Reviewed Medications Patient presents for concerns for stomach pains has a history of GERD and was on something that started with an F which controlled symptoms LMP was sometime last month Has been under a lot of situational stress but states she feels like she is dealing with it and follows up with Dr Rg Discussed peakflow and patient states that she does not believe her asthma is under control, takes inhalers appropriately Current Medication - Albuterol Sulfate HFA 108 (90 Base) MCG/ACT Inhalation Aerosol, solution Aerosol Solution inhale 1 to 2 puffs by mouth and INTO THE LUNGS every 4 to 6 hours if needed for shortness of breath, 30 days, 11 refills - busPIRone HCl 10 MG Oral Tablet take 1 tablet by mouth 3 times per day, 30 days, 0 refills - FLUoxetine HCl 20 MG Oral Capsule take 1 tablet by mouth daily, 30 days, 0 refills - Prazosin HCl 2 MG Oral Capsule take 1 tablet by mouth nightly 1 hour before bed., 30 days, 0 refills - SEROquel 50 MG Oral Tablet take 1 tablet by mouth daily before bed, 30 days, 0 refills - Strattera 60 MG Oral Capsule daily- Dominga Medel, 0 days, 0 refills Past Medical/Surgical History Reported: Medical: No previous hospitalizations. Immunization History: Recent immunization for flu. Diagnoses: Asthma. Psychiatric disorders ADHD, manic bipolar 1 and 2, schizoeffective disorder Per pt report- 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 heartburn. Procedural: - Tooth extraction Surgical: - section x3 Social History Environmental Exposure: Secondhand cigarette smoke exposure. Tobacco use: Cigarette smoking Moderate (11-19/day). Not using electronic cigarettes/vaping. Alcohol: Not using alcohol. Drug Use: Using marijuana. Sexual: Sexual orientation Bisexual and gender identity Female. Allergies - No Known Allergies Family History Father unknown Maternal: Systemic hypertension Fraternal: Asthma Physical Findings - Vitals taken 07/27/2022 06:47 pm BP-Sitting L117/63 mmHg BP Cuff SizeRegular Pulse Rate-Dritgjq38 bpm Temp-Oirkzckx38.3 F Qjynfg63 in Fvzbsd912 lbs 4.8 oz Body Mass Index22 kg/m2 Body Surface Area1.8 m2 Oxygen Qrdhyxfsxb83 % General Appearance: - Awake. - Alert. - Well developed. Lungs: - Respiration rhythm and depth was normal. - Clear to auscultation. Cardiovascular: Heart Rate And Rhythm: - Normal. Heart Sounds: - Normal. Abdomen: Visual Inspection: - Abdomen was normal on visual inspection. Musculoskeletal System: General/bilateral: - Normal movement of all extremities. Neurological: - Oriented to time, place, and person. Psychiatric: - Expression of emotions finding was normal. Tests Laboratory Studies: Pulmonary Function Tests: Value Green Range 240 Best Peak Flow 300 Low Yellow Range 150 Red Range 150 High Yellow Range 240 Estimated Peak Flow 467 l/min Percent of Estimated Peak Flow 64% Test: Test was negative. Educational Testing: In the Past 4 Weeks, Asthma kept me from getting much done at work/school/work? (3 Pts) Some of the Time, During the past 4 weeks, how often have you had shortness of breath? (2 Pts) Once a day, During the past for 4 weeks, asthma symptoms woke me up at night or earlier than (2 Pts) 2 or 3 nights a week, During the past 4 weeks, have used rescue inhaler or nebulizer medication (2 Pts) 1 or 2 times per day, and Asthma control during the past 4 weeks (3 Pts) Somewhat controlled. Assessment - Body mass index [Body mass index [BMI] 22.0-22.9, adult] - Diabetes Risk Test Score was 0.0 score 07/27/2022 [Encounter for screening for diabetes mellitus] - Esophageal reflux without esophagitis [Gastro-esophageal reflux disease without esophagitis] Test Conclusions Asthma Control Test (ACT), adult total score was 12.0 07/27/2022. Therapy - Referral to mental health team. Vaccinations - Received dose of Reported: Patient has received the COVID Vaccine Counseling/Education - Wishing to stop smoking Discussed Quit Line resources - Discussed nutritional needs teach healthy choices including fruits and vegetables - Patient education about a proper diet - Patient education about an asthma action plan - Discussed concerns about exercise: promote physical activity Will add symbicort Follow up in one month Plan StartCited- Encounter for general adult medical exam w abnormal findings Lab: HCG, TOTAL, QUANT Lab: CBC WITH DIFF Lab: COMP METABOLIC PROF Lab: LIPID PROFILE Lab: TSH W/REFLEX TO FT4 Lab: VITAMIN D 25 OH EndCited StartCited- Gastro-esophageal reflux disease without esophagitis Famotidine 20 MG tablet Take one tablet two times per day, 30 days, 1 refills EndCited StartCited- Mild persistent asthma, uncomplicated Symbicort 80-4.5 MCG/ACT gram Inhale 2 puffs by mouth twice a day (rinse mouth after use), 30 days, 2 refills EndCited StartCited- Other asthma Albuterol Sulfate HFA 108 (90 Base) MCG/ACT gram inhale 1 to 2 puffs by mouth and INTO THE LUNGS every 4 to 6 hours if needed for shortness of breath, 30 days, 11 refills EndCited - Referral for Practice Management Systolic blood pressure < 130 mmHg and diastolic < 80 mmHg diastolic < 80 mmHg. User Defined 1 Not afraid of someone you have a relationship with No. Has lack of transportation kept patient from medical appointments or from getting medications: No and lack of transportation has kept patient from beneficial non-medical activities: No. She has not had 4 or more drinks in a day within the past year. Do you feel stress - tense, restless, nervous, or anxious, or unable to sleep at night because your mind is troubled all the time - these days? Quite a bit, No (0 points) [Pre-DM]: No, patient has not been diagnosed with high blood pressure, No (0 points) [Pre-DM]: Patient has not been diagnosed with gestational diabetes or given to a baby weighing 9 pounds or more, No (0 points) [Pre-DM]: No, mother, father, sister, or brother does not have DM, and Yes (0 point) [Pre-DM]: Yes, physically active. No misuse of prescription only drugs and not illicit. Does patient feel physically and emotionally safe where he/she lives: Yes. Is patient is worried about losing housing: No. What is the highest grade or level of school you have completed or the highest degree you have received? Less than high school degree and In the past year, patient or family members in household were unable to get needed clothing: Yes. In the past year, patient or family members in household were unable to get needed early childhood education worker: No and unable to get other needs No. In the past year, patient or family members in household were unable to get needed phone: Yes. In the past year, patient or family members in household were unable to get needed utilities: No and unable to get needed Medicine or Health Care: No. In the past year, patient or family members in household were unable to get needed food: Yes, How often does patient see or talk to people that that he/she cares about and feels close to: 1 or 2 times a week, Woman (0 Points) [Pre-DM], Little interest or pleasure in doing things in the last 2 weeks? 1 pt Several days, Feeling down, depressed, or hopeless in the last 2 weeks? 1 pt Several days, and [PHQ-2] Patient Health Questionnaire 2 item total score: 2.0 pts (Scale: 0-6) PHQ2. PHQ-9: total score was 14.0 07/27/2022 If you checked off problems, how difficult is it for you to do your work? + : Somewhat difficult, [PHQ-9-1] Little interest or pleasure in doing things? + 1 pt : Several days, [PHQ-9-2] Feeling down, depressed, or hopeless? + 1 pt : Several days, [PHQ-9-3] Trouble falling or staying asleep or sleeping too much? + 3 pt : Nearly every day, [PHQ-9-4] Feeling tired or having little energy? + 2 pt : More than half the days, [PHQ-9-5] Poor appetite or overeating? + 1 pt : Several days, [PHQ-9-6] Feeling bad about yourself-or that you are a failure + 2 pt : More than half the days, [PHQ-9-7] Trouble concentrating on things such as reading the newspaper + 1 pt : Several days, [PHQ-9-8] Moving or speaking so slowly that other people have noticed. + 3 pt : Nearly every day, [PHQ-9-9] Thoughts that you would be better off or hurting yourself? + 0 pt : Not at all, and Less than 40 years (0 points) [Pre-DM]. [facility]05-31-2023 Reason for referral (narrative)* Date Encounter Description Provider Reason for Referral 07/27/22 Medical Established Patient Mariposa Duncan ROLF Referral To Mental Health Team; JENIFFER Referral For [facility] Work Phone: 1(717) 139-820902-26-2023 Hospital Discharge instructions* Discharge Instructions* Christopher Stephenson PA-C - 04/24/2022 3:13 PM EST Follow-up with primary care doctor 7 to 10 days for reevaluation. Continue to drink plenty of fluids as tolerated take Zofran for nausea as directed. Promptly return to emergency department for new, changing, worsening of symptoms or other concerns. * Attachments The following attachments cannot be sent through Care Everywhere. * Nausea and Vomiting (Citizen Of [place]) [facility] Phone: [phone]) 748-711301-06-2023 History of Present illness Narrative* Martha Melgoza RN - 03/04/2022 2:20 PM EST Discharge Criteria Inpatients must meet Criteria 1 through 7. All other patients are either YES or N/A. If a NO is chosen then Anesthesia or Surgeon must be notified. 1. Minimum 30 minutes after last dose of sedative medication, minimum 120 minutes after last dose of reversal agent. Yes 2. Systolic BP stable within 20 mmHg for 30 minutes & systolic BP between 90 & 180 or within 10 mmHg of baseline. Yes 3. Pulse between 60 and 100 or within 10 bpm of baseline. Yes 4. Spontaneous respiratory rate >/= 10 per minute. Yes 5. SaO2 >/= 95 or >/= baseline. Yes 6. Able to cough and swallow or return to baseline function. Yes 7. Alert and oriented or return to baseline mental status. Yes 8. Demonstrates controlled, coordinated movements, ambulates with steady gait, or return to baseline activity function. Yes 9. Minimal or no pain or nausea, or at a level tolerable and acceptable to patient. Yes 10. Takes and retains oral fluids as allowed. Yes 11. Procedural / perioperative site stable. Minimal or no bleeding. Yes 12. If GI endoscopy procedure, minimal or no abdominal distention or passing flatus. N/A 13. Written discharge instructions and emergency telephone number provided. Yes 14. Accompanied by a responsible adult. Yes * Kassidy Davidson RN - 03/04/2022 1:51 PM EST Called patient's ride and he stated he would be here in about 15 minutes. * Rufina Hamilton RN - 03/03/2022 1:49 PM EST Patient instructed on the pre-operative, intra-operative, and post-operative process. Patient instructed on NPO status. Medication instructions and pre operative instruction sheet reviewed with the patient. Instructed pt to take buspar and prozac with a small sip of water and to avoid smoking cigarettes or marijuana after midnight. Patient last smoked today 03/03/22. [facility] Work Phone: 1([phone]) 248-479301-06-2023 Hospital Discharge instructions* Discharge Instructions* Kassidy Davidson RN - 03/04/2022 12:45 PM EST SAME DAY SURGERY DISCHARGE INSTRUCTIONS 1. Do not drive or operate hazardous machinery for 24 hours. 2. Do not make important personal or business decisions for 24 hours. 3. Do not drink alcoholic beverages for 24 hours. 4. Do not smoke tobacco products for 24 hours. 5. Eat light foods and drink plenty of fluids up to 8 glasses per day, as you can tolerate. 6. If your bandages become soaked with bright red blood, place another dressing pad over your bandages. (DO NOT remove original bandage.) Call your surgeon for further instructions. A small amount ofbright red blood is to be expected. 7. Limit your activities for 24 hours. Do not engage in heavy work until your surgeon gives you permission. 8. Patient should not be left alone for 12-24 hours following surgical procedure. 9. Report the following signs or any questions regarding your physical condition to your surgeon immediately: Excessive swelling of, or around the wound area. Redness. Temperature of 100 degrees (F) or above. Excessive pain. 10. Call your surgeon for any questions regarding your surgery. 11. Wash hands before and after incision care. It is important to practice good personal hygiene during the post op period. Keep an absorbent dressing over surgical site for expected drainage. Complete present course of oral antibiotics. Do not drive a car or operate machinery while taking prescription pain medication. Follow-up in Dr. Miller's office next week as directed. It is okay to bathe or shower. documented in this [facility]ALS[facility] Phone: 1(347) [phone] Hospital Discharge instructions* Discharge Instructions* Nicholas Denton MD - 03/01/2022 8:09 AM EST Take your medications as prescribed. You may take Tylenol Motrin as needed for pain control as wellas warm compresses. Follow-up with your OB trencher driver as scheduled. You have been given a referral for general surgeon if this continues for further assessment of possible drainage. * Attachments The following attachments cannot be sent through Care Everywhere. * Cellulitis (Citizen Of [place]) documented in this encounterEVER[facility]ALSho[facility] Phone: 1(217) 615-135206-21-2022 Evaluation note Includes: Assessments for all patient encounters Findings Encounter Date Schizoaffective disorder Established Patient with Halima Argueta [facility] 08/17/2021 Asthma Medical Established Patient with Kia Sharma [employer] 08/17/2021 Esophageal reflux without esophagitis Me dical Established Patient with Kia Sharma [facility] 08/17/2021 Schizoaffective disorder Medical Establi shed Patient with Kia Sharma [employer] 08/17/2021 Z68.20 - Body mass index [BM I] 20.0-20.9, adult Medical Established Patient with Kiafranco Sharma [employer] 08/17/2021 Schizoaffective disorder BH Established Patient with Halima Marroquins [facility] 07/15/2021 Schizoaffective disorder BH Established Patient with Halima Argueta [facility] 07/15/2021 Bipolar disorder NOS Medical Established Patient with Kia Edith [employer] 07/15/2021 Esophageal reflux without esophagitis Me dical Established Patient with Kia Edith [employer] 07/15/2021 Herpes simplex type I Medical Establishe d Patient with Kia Edith [employer] 07/15/2021 Z68.1 - Body mass index [BMI ] 19.9 or less, adult Medical Established Patient with Kia Edith [employer] 07/15/2021 Asthma Medical Established Patient with Kia Sharma [employer] 07/01/2021 Bipolar disorder NOS Medical Established Patient with Kia Edith [employer] 07/01/2021 Herpes simplex type I Medical Establishe d Patient with Kia Edith [employer] 07/01/2021 Schizoaffective disorder Medical Establi shed Patient with Kia Sharma [employer] 07/01/2021 Z68.20 - Body mass index [BM I] 20.0-20.9, adult Medical Established Patient with Kia Edith [employer] 07/01/2021 Diabetes Risk Test Score was one score 05/28/2021 Medical Established Patient with Kia Sharma [employer] 05/28/2021 Herpes simplex type I Medical Establishe d Patient with Kia Sharma [employer] 05/28/2021 No cough Medical Established Patient with Kia Edith [facility] 05/28/2021 Visit for: screening for hum an immunodeficiency virus Medical Established Patient with Kia Edith [employer] 05/28/2021 Z11.59 - Encounter for nettie kauffman for other viral diseases Medical Established Patient with Kia Edith [employer] 05/28/2021 Z68.1 - Body mass index [BMI ] 19.9 or less, adult Medical Established Patient with Kia Edith [employer] 05/28/2021 Asthma Medical Established Patient with Kia Edith [employer] 04/03/2020 Body mass index Medical Established Patient with Kia Edith [employer] 04/03/2020 Esophageal reflux without esophagitis Me dical Established Patient with Kia Edith [employer] 04/03/2020 Lower backache Medical Established Patient with Kia Edith [employer] 04/03/2020 Bipolar disorder (per denia vega, diagnosed w/both Bipolar I & II) Telebehavioral Health with Halima Marroquins [facility] 03/20/2020 Schizoaffective disorder (pe r patient report) Telebehavioral Health with Halimachuck Condonmons [facility] 03/20/2020 Asthma Telemedicine New Pat ient with Kiafranco Sharma [employer] 03/20/2020 Lumbago Telemedicine New Pat ient with Kiafranco Sharma [facility] 03/20/2020 Z68.21 - Body mass index [BM I] 21.0-21.9, adult Telemedicine New Patient with Kia Sharma [employer] 03/20/2020 [facility] Work Phone: [phone]) [phone] Evaluation note Includes: Assessments for all patient encounters Findings Encounter Date Schizoaffective disorder Established [facility] Schizoaffective disorder Established [facility]/15/2021 Bipolar disorder NOS Medical Established Patient with Kia Sharma [employer] 07/15/2021 Esophageal reflux without esophagitis Me dical Established Patient with Kia Edith [employer] 07/15/2021 Herpes simplex type I Medical Establishe d Patient with Kia Edith [facility] 07/15/2021 Z68.1 - Body mass index [BMI ] 19.9 or less, adult Medical Established Patient with Kia Edith [employer] 07/15/2021 Asthma Medical Established Patient with Kia Sharma [employer] 07/01/2021 Bipolar disorder NOS Medical Established Patient with Kia Edith [employer] 07/01/2021 Herpes simplex type I Medical Establishe d Patient with Kia Edith [employer] 07/01/2021 Schizoaffective disorder Medical Establi shed Patient with Kia Edith [employer] 07/01/2021 Z68.20 - Body mass index [BM I] 20.0-20.9, adult Medical Established Patient with Kia Edith [employer] 07/01/2021 Diabetes Risk Test Score was one score 05/28/2021 Medical Established Patient with Kia Edith [employer] 05/28/2021 Herpes simplex type I Medical Establishe d Patient with Kia Edith [employer] 05/28/2021 No cough Medical Established Patient with Kia Edith [facility] 05/28/2021 Visit for: screening for hum an immunodeficiency virus Medical Established Patient with Kia Sharma [facility] 05/28/2021 Z11.59 - Encounter for nettie kauffman for other viral diseases Medical Established Patient with Kia Sharma [facility] 05/28/2021 Z68.1 - Body mass index [BMI ] 19.9 or less, adult Medical Established Patient with Kia Sharma [employer] 05/28/2021 Asthma Medical Established Patient with Kia Sharma [employer] 04/03/2020 Body mass index Medical Established Patient with Kia Sharma [facility] 04/03/2020 Esophageal reflux without esophagitis Me dical Established Patient with Kia Sharma [facility] 04/03/2020 Lower backache Medical Established Patient with Kia Sharma [facility] 04/03/2020 Bipolar disorder (per denia vega, diagnosed w/both Bipolar I & II) Telebehavioral Health with Halima Argueta [facility] 03/20/2020 Schizoaffective disorder (pe r patient report) Telebehavioral Health with Halima Argueta [facility] 03/20/2020 Asthma Telemedicine New Pat ient with Kia Sharma [facility] 03/20/2020 Lumbago Telemedicine New Pat ient with Kia Sharma [facility] 03/20/2020 Z68.21 - Body mass index [BM I] 21.0-21.9, adult Telemedicine New Patient with Kia Sharma [facility] 03/20/2020 [facility] Work Phone: [phone]) [phone] Evaluation note Includes: Assessments for all patient encounters Findings Encounter Date Asthma Medical Established Patient with Kia Sharma [employer] 07/01/2021 Bipolar disorder NOS Medical Established Patient with Kia Sharma [facility] 07/01/2021 Herpes simplex type I Medical Establishe d Patient with Kia Sharma [facility] 07/01/2021 Schizoaffective disorder Medical Establi shed Patient with Kia Sharma [facility] 07/01/2021 Z68.20 - Body mass index [BM I] 20.0-20.9, adult Medical Established Patient with Kia Sharma [employer] 07/01/2021 Diabetes Risk Test Score was one score 05/28/2021 Medical Established Patient with Kia Edith [employer] 05/28/2021 Herpes simplex type I Medical Establishe d Patient with Kia Edith [employer] 05/28/2021 No cough Medical Established Patient with Kia Sharma [facility] 05/28/2021 Visit for: screening for hum an immunodeficiency virus Medical Established Patient with Kia Sharma [facility] 05/28/2021 Z11.59 - Encounter for scree jamari for other viral diseases Medical Established Patient with Kia Sharma [facility] 05/28/2021 Z68.1 - Body mass index [BMI ] 19.9 or less, adult Medical Established Patient with Kia Sharma [facility] 05/28/2021 Asthma Medical Established Patient with Kia Sharma [facility] 04/03/2020 Body mass index Medical Established Patient with Kia Sharma [facility] 04/03/2020 Esophageal reflux without esophagitis Me dical Established Patient with Kia Sharma [facility] 04/03/2020 Lower backache Medical Established Patient with Kia Sharma [facility] 04/03/2020 Bipolar disorder (per denia vega, diagnosed w/both Bipolar I & II) Telebehavioral Health with Halima Argueta [facility] 03/20/2020 Schizoaffective disorder (pe r patient report) Telebehavioral Health with Halima Argueta [facility] 03/20/2020 Asthma Telemedicine New Pat ient with Kia Sharma [facility] 03/20/2020 Lumbago Telemedicine New Pat ient with Kia Sharma [facility] 03/20/2020 Z68.21 - Body mass index [BM I] 21.0-21.9, adult Telemedicine New Patient with Kia Sharma [facility] 03/20/2020 [facility] Work Phone: 1([phone]) 193-206604-01-2022 Evaluation note Includes: Assessments for all patient encounters Findings Encounter Date Diabetes Risk Test Score was one score 05/28/2021 Medical Established Patient with Kia Sharma [facility] 05/28/2021 Herpes simplex type I Medical Establishe d Patient with Kia Sharma [facility] 05/28/2021 No cough Medical Established Patient with Kia Sharma [facility] 05/28/2021 Visit for: screening for hum an immunodeficiency virus Medical Established Patient with Kia Sharma [facility] 05/28/2021 Z11.59 - Encounter for scree jamari for other viral diseases Medical Established Patient with Kia Sharma [facility] 05/28/2021 Z68.1 - Body mass index [BMI ] 19.9 or less, adult Medical Established Patient with Kia Sharma [facility] 05/28/2021 Asthma Medical Established Patient with Kia Sharma [facility] 04/03/2020 Body mass index Medical Established Patient with Kia Sharma [facility] 04/03/2020 Esophageal reflux without esophagitis Me dical Established Patient with Kia Sharma [facility] 04/03/2020 Lower backache Medical Established Patient with Kia Sharma [facility] 04/03/2020 Bipolar disorder (per denia vega, diagnosed w/both Bipolar I & II) Telebehavioral Health with Halima Argueta [facility] 03/20/2020 Schizoaffective disorder (pe r patient report) Telebehavioral Health with Halima Condonmons [facility] 03/20/2020 Asthma Telemedicine New Pat ient with Kia Sharma [facility] 03/20/2020 Lumbago Telemedicine New Pat ient with Kia Sharma [facility] 03/20/2020 Z68.21 - Body mass index [BM I] 21.0-21.9, adult Telemedicine New Patient with Kia Sharma [facility] 03/20/2020 [facility] Work Phone: 1([phone]) 180-589008-18-2021 History of Present illness Narrative* Irish Nelson RN - 10/14/2020 1:08 PM EDT Patient verbalizes readiness for discharge at this time. All criteria met. Discharge Criteria Inpatients must meet Criteria 1 through 7. All other patients are either YES or N/A. If a NO is chosen then Anesthesia or Surgeon must be notified. 1. Minimum 30 minutes after last dose of sedative medication, minimum 120 minutes after last dose of reversal agent. Yes 2. Systolic BP stable within 20 mmHg for 30 minutes & systolic BP between 90 & 180 or within 10 mmHg of baseline. Yes 3. Pulse between 60 and 100 or within 10 bpm of baseline. Yes 4. Spontaneous respiratory rate >/= 10 per minute. Yes 5. SaO2 >/= 95 or >/= baseline. Yes 6. Able to cough and swallow or return to baseline function. Yes 7. Alert and oriented or return to baseline mental status. Yes 8. Demonstrates controlled, coordinated movements, ambulates with steady gait, or return to baseline activity function. Yes 9. Minimal or no pain or nausea, or at a level tolerable and acceptable to patient. Yes 10. Takes and retains oral fluids as allowed. Yes 11. Procedural / perioperative site stable. Minimal or no bleeding. No 12. If GI endoscopy procedure, minimal or no abdominal distention or passing flatus. N/A 13. Written discharge instructions and emergency telephone number provided. Yes 14. Accompanied by a responsible adult. Yes * Irish Nelson RN - 10/14/2020 1:04 PM EDT Discharge instructions reviewed with patient and patient's spouse. Verbalized understanding and denied any questions. * Summer Sousa RN - 10/14/2020 12:39 PM EDT [facility] in to see patient. Patient's boyfriend called to nut picker. * Rufina Hamilton RN - 09/28/2020 7:52 AM EDT Patient states she wants to reschedule her surgery. Informed the patient she needs to call the office to reschedule. Genesis Wan MA at Dr. Galloway office notified. * Kasie Ross RN - 09/23/2020 2:18 PM EDT Patient instructed on the pre-operative, intra-operative, and post-operative process. Patient's surgery arrival time to the hospital and surgery start time confirmed for the day of surgery. Patient instructed on NPO status. Medication instructions reviewed with patient. Pre operative instruction sheet reviewed and given to patient in PAT. CHG skin prep instructions reviewed with the patient via telephone. Pt states she is no longer on any medications. * Rufina Hamilton RN - 09/22/2020 12:48 PM EDT Unable to make contact. Phone number listed is not accepting calls. * Rufina Hamilton RN - 09/21/2020 10:23 AM EDT Attempted PAT phone call; no answer; unable to leave a message. Dr. Galloway office notified. * Kasie Ross RN - 09/16/2020 9:34 AM EDT Maria D at Dr Galloway office notified that pt is not answering phone, has no VM, and there is a recording that states pt is not excepting phone calls at this time. [facility] Work Phone: [phone]) [phone] Evaluation note Includes: Assessments for all patient encounters Findings Encounter Date Asthma Medical Established Patient with Kia Sharma [facility] 04/03/2020 Body mass index Medical Established Patient with Kia Sharma [facility] 04/03/2020 Esophageal reflux without esophagitis Me dical Established Patient with Kia Sharma [facility] 04/03/2020 Lower backache Medical Established Patient with Kia Sharma [facility] 04/03/2020 Bipolar disorder (per denia vega, diagnosed w/both Bipolar I & II) Telebehavioral Health with Halima Argueta [facility] 03/20/2020 Schizoaffective disorder (pe r patient report) Telebehavioral Health with Halima Argueta [facility] 03/20/2020 Asthma Telemedicine New Pat ient with Kia Sharma [facility] 03/20/2020 Lumbago Telemedicine New Pat ient with Kia Sharma [facility] 03/20/2020 Z68.21 - Body mass index [BM I] 21.0-21.9, adult Telemedicine New Patient with Kiafranco Sharma [facility] 03/20/2020 [facility] Work Phone: 1([phone]) 764-994101-22-2021 History general Narrative - Reported Includes: Medical History in patient's chart Description Last Updated per pt report- 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 ~heartb urn 03/20/2020 History of psychiatric disor ders ADHD, manic bipolar 1 and 2, schizoeffective disorder 03/20/2020 History of tooth extraction 03/20/2020 History of asthma 03/20/2020 A recent immunization for flu 03/20/2020 No previous hospitalizations 03/20/2020 [facility] Work Phone: 1(172) 684-529501-22-2021 History general Narrative - Reported Includes: Medical History in patient's chart Description Last Updated per pt report- 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 ~heartb urn 03/20/2020 Last Documented On 1 9:48AM ; [facility] History of psychiatric disor ders ADHD, manic bipolar 1 and 2, schizoeffective disorder 03/20/2020 Last Documented On 1 9:48AM ; [facility] History of tooth extraction 03/20/2020 Last Documented On 1 9:48AM ; [facility] History of asthma 03/20/2020 Last Documented On 1 9:48AM ; [facility] A recent immunization for flu 03/20/2020 Last Documented On 1 9:48AM ; [facility] No previous hospitalizations 03/20/2020 Last Documented On 1 9:48AM ; [facility] Work Phone: Discharge summary Author Osmani baugh [facility] October 29, 2021 9:52am Note Date/Time October 29, 2021 9:52am [facility] [address] [place] [address] Discharge Summary Signed Patient: Bennett Vaughn MR#: [id number] : 1995 Acct:[id number] Age/Sex: 26 / F Adm Date: 2 Loc: Room: [address] [place] [address]: Feliberto Faust MD Copies to: MD Feliberto Barboza MD NO FAMILY PHYSICIAN~ Providers Date of Discharge: 10/29/21 Discharging Provider: Jered Timmons Primary Care Provider: PHYSICIAN NO FAMILY Consults: 10/26/21 20:25 Consult to Case Management Routine 10/26/21 20:27 Consult to Dietitian Routine Discharge Diagnosis (1) Bipolar affective, mixed, sev w/ psych: (2) PTSD (post-traumatic stress disorder): (3) Suicidal ideation: Final Diagnosis Final Discharge Diagnosis: PTSD Summary Hospital Course Hospital course: Ms. Vaughn is a 26 year old female who presents with concerns of auditory hallucinations and suicidal ideation.? She reports that she brought her self into the hospital to get help for her mental health as she has been struggling for a very long time. Yesterday, the voices in her head telling her to harm herself and others got too loud and she became overwhelmed. She reports that herplan would have been to cut her wrists. She notes that she discontinued all of her psych medications 6 months ago but does not know why as they previously seemed to help. 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 Cadee reports that she has been feeling depressed and suicidal. She realized that she needed to take her medication. Psychotropic medications targeting depression and anxiety were started and she was provided supportive and reality oriented therapy. She felt that her symptoms have improved on the current medication regimen, and has been compliant with treatment, and reported no side effects. Her sleep and appetite were okay. She has been attending groups and described them as useful building coping skills. The patient has denied any access to firearms or lethal weapons. She felt better than before coming to the hospital and feels hopeful regarding her future. She rated her depression 1/10 and anxiety 2/10, with 10 being the worst. She understands the importance of outpatient follow-up to ensure the stability of her symptoms. She denied suicidal or homicidal ideation and verbalized the intent to notify the staff if she has such thoughts. No suicidal or self-injurious behaviors occurred during inpatient treatment. She felt Vistaril was effective in reducing her anxiety. She was given emotional support, counseled, and educated regarding the prognosis of her diagnosis. She expresses understanding and says she is better after learning coping skills and the medications prescribed in the inpatient unit. She was in agood place to return home and engage fully in her life The patient stated that she was ready to go. She did not meet criteria for involuntary psychiatric hospitalization. Patient achieved maximum benefit from attending inpatient treatment and was suitable for outpatient follow up. I explained to the patient that her discharge from the hospital does not mean that her medical care ends here. She needs consistent outpatient follow-up, cognitive behavioral therapy, and treatment plan to be handled from this point on by out patient team. Discharge disposition: Home with BF. Coordinated via case management. Safe discharge Planning: With the cessation of all suicidal ideation, improvements in mood, and absence of any psychotic symptoms at the time of discharge, aftercare plans were solidified. She was able to formulate a believable Safety Plan. Discharge plans were discussed with the patient and the treatment team. All agreed with the discharge plan. On the day of discharge, she was evaluated and had no complaints. She denied any SI/HI. She agreed to follow up with outpatient treatment as arranged by case management. She had no complications during her stay. Suicide risk assessment: A thorough review of risk and protective factors was conducted. Discussed with the patient the following recommendations that would help reduce suicide which includes limiting the number of medications to a 14-day supply with one refill at the time of discharge to avoid potential overdose,consistent outpatient follow up preferably within seven days of release, involving family members in her care, and her desire to live. She reports [facility], good response to medication management and therapy, availability of local mental health services and willingness to follow up, lack of suicidal ideation, intent or plan, lack of impulsivity, agitation, or psychotic behavior. Pt is future- oriented and understands the importance of outpatient follow-up. Considering positive factors like family and carrie, lack of access to firearms, and desire to continue treatment makes suicide risk minimal. Given the chronicity of suicidality, we discussed measures to help her with long-term safety. The patient is not suicidal or psychotic now. To help decreaseher suicide risk, as best I can, I am referring her for outpatient treatment andCBT for long-term follow-up to have somewhere to go and someone to manage her assymptoms and stressors develop. This is the best way to keep her alive. So, we discussed a crisis plan for future suicidality: at the first sign of distress, she will call the hotline; if this is not sufficient, she will 911, then call family members or friends; ultimately, she will come to the ER. Safety: The patient is not acutely psychotic and is safe to continue treatment on an outpatient basis. The patient was made aware of the 19/09 emergency services of the crisis center. She was advised to call 911 or go to the nearest ER in case of a crisis ( (including having thoughts of harming herself or others). Risks (metabolic, EPS, the effect on heart), benefits, and alternatives for medications were discussed. She verbalized understanding. Her consent was obtained. She was advised not to drink alcohol while taking medications. I advised patientthat using drugs can increase risk of impulsiveness and making poor decisions. Continue supportive therapy with some CBT techniques. Psycho-education and compliance counseling were provided. She denies current and is aware to notify her psychiatrist if she becomes due to the risk of harm to the fetus. MSE: Orientation: Alert and oriented to person, place, and time. Appearance/Behavior: Fair grooming and hygiene, calm, cooperative, engaged in the interview. Good eye contact. Normal psychomotor activity. Speech: normal rate, rhythm, volume, and tone. Non pressured. Knowledge: Appropriate for age and level of education Mood: okay Affect: reactive, mood-congruent Thought process: linear, logical, and goal-oriented Thought content: No SI/HI. No AVH. No delusions. Does not appear to be responding to internal stimuli. Concentration: Grossly intact based on track during the interview Associations: No loosening of associations Memory: Able to recall recent and remote historical information Insight: Fair, able to appreciate current symptoms and need for outpatient treatment Judgment: fair, agreed to follow treatment recommendations, socially appropriate with interviewer and staff. Time spent discussing smoking cessation with patient: more than 10 minutes Condition Condition at Discharge: Fair Status at Discharge Functional status at discharge: independent ambulation Time Spent with Patient Time spent providing/coordinating discharge services (# min): 36 Exam Physical Exam Vital Signs: Temp Pulse Resp BP Pulse Ox O2 Del Method 96.6 F L 84 18 110/70 97 Room Air 10/29/21 07:30 10/29/21 07:30 10/29/21 07:30 10/29/21 07:30 10/29/21 07:30 10/29/21 07:30 Discharge Plan Discharge Plan Activity: No Activity Restriction Diet: Regular Prescriptions: New trazodone 50 mg Tablet 50 mg PO QHS PRN (Reason: Insomnia) 15 Days Qty: 15 1RF prazosin 1 mg Capsule 1 mg PO QHS 15 Days Qty: 15 1RF hydroxyzine pamoate 50 mg Capsule 50 mg PO Q6H PRN (Reason: Anxiety) 15 Days Qty: 30 1RF buspirone 10 mg Tablet 20 mg PO TID 15 Days Qty: 90 1RF gabapentin 100 mg Capsule 200 mg PO BID.9A.2P 15 Days Qty: 60 1RF fluoxetine 20 mg Capsule 20 mg PO QAM 15 Days Qty: 15 1RF quetiapine 50 mg Tablet 50 mg PO BID 15 Days Qty: 30 1RF Follow Up: [facility] [employer] [employer] [facility] [Other] (Therapy: Case management: ) Documented By: Osmani Timmons MD 2 0949 Signed By: <Electronically signed by Osmani Timmons MD> 10/29/21 0952 [facility] Work Phone: Evaluation note* Diagnosis HGSIL (high grade squamous intraepithelial lesion) on Pap smear of cervix documented in this encounter [email or web address] Phone: [email or web address] note* Diagnosis Preop testing- Primary Preoperative examination, unspecified documented in this encounter [email or web address] Phone: [email or web address] note* Diagnosis Preop testing Preoperative examination, unspecified documented in this encounter [email or web address] Phone: [email or web address] note* Diagnosis 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 documented in this encounter [email or web address] Phone: [email or web address] note* Diagnosis Irregular menstrual cycle documented in this encounter [email or web address] Phone: [email or web address] note* Diagnosis Vaginal discharge Leukorrhea, not specified as infective documented in this encounter [email or web address] Phone: evaluation note* Diagnosis Onset Date Resolution Status Bipolar affective, mixed, sev w/ psych acute Chronic schizophrenia acute PTSD (post-traumatic stress disorder) acute Suicidal ideation acute [facility] Work Phone: Evaluation note* Diagnosis Cellulitis of right breast- Primary documented in this encounter [facility] Phone: evalfzznpe note* Diagnosis Abscess of right breast- Primary Inflammatory disease of breast Abscess of right breast Inflammatory disease of breast documented in this encounter [facility] Phone: evalobycaf note* Diagnosis Nausea vomiting and diarrhea- Primary Nausea with vomiting documented in this encounter [employer] Phone: evaluation note* Diagnosis Abscess of female breast Inflammatory disease of breast documented in this encounter [facility] Phone: evaluation note* Diagnosis Flank pain- Primary Abdominal pain, unspecified site Urinary tract infection without hematuria, site unspecified documented in this encounter [facility] Phone: History and physical note Author Feliberto Faust [facility] October 27, 2021 3:07pm Note Date/Time October 27, 2021 3: 07pm [facility] [address] [place] [address] Psychiatry H&P Signed Patient: Bennett Vaughn MR#: [id number] : 1995 Acct:[id number] Age/Sex: 26 / F Adm Date: 2 Loc: Room: 5B9184-7 Type: ADM IN Attending Dr: Feliberto Faust MD Copies to: Feliberto Faust MD NO FAMILY PHYSICIAN~ Date of Service: 10/27/2021 HPI History of Present Illness History of present illness: Ms. Vaughn is a 26 year old female who presents with concerns of auditory hallucinations and suicidal ideation. She reports that she brought her self into the hospital to get help for her mental health as she has been struggling for a very long time. Yesterday, the voices in her head telling her to harm herself and others got too loud and she became overwhelmed. She reports that herplan would have been to cut her wrists. She notes that she discontinued all of her psych medications 6 months ago but does not know why as they previously seemed to help. past psych history: repoted depression, anxiety, schizoaffective disorder, bipolar 2 disorder Past hospitalizations: several prior hospitalizations Past suicide attempts: 2 previous attempts Previous medications: Family psych history: Smokin.5 packs a day Alcohol use: once a year Substance Use: sonia daily Living: boyfriend Employment: [email or web address] business Review of symptoms: Constitutional: Denies chills and Denies fever(s) Eyes: Denies change in vision ENT: Denies abnormal hearing Cardiovascular: Denies chest pain Respiratory: Denies chest congestion and Denies cough Gastrointestinal: Denies change in bowel habits Genitourinary: Denies dysuria Musculoskeletal: Denies myalgias Integumentary/Breasts: Denies dry skin Neurologic: Denies abnormal gait and Denies abnormal movements Psychiatric: Denies depression, denies suicidal ideation Physical exam: Const: cooperative Nutritional Appearance: normal weight Orientation: alert, awake and oriented x3 HEENT: Head normal to inspection, hearing grossly normal bilaterally, external nose normal, face symmetric Eyes: appearance normal, both eyes and all related structures, sclerae normal Neck: normal visual inspection and full ROM Resp: normal respiratory effort, able to speak in complete sentences and symmetric chest movement Cardio: regular rate GI: normal to inspection and non-distended Skin: warm, dry Neuro: CNII: Visual dobson intact, CNIII,IV,: EOM intact, no nystagmus. Pupilsequal, round, reactive to light and accommodation, CNV: Sensation intact to light touch, CNVII: Raises eyebrows, smile/frown, puff out cheeks symmetrically,CNVIII: Hearing intact bilaterally, CNIX,X: Voice normal, soft palate elevation normal, symmetrical, CNXI: Shoulder shrug strong, equal bilaterally, CNXII: Tongue protrusion midline, movement symmetrical. Extrem: normal to inspection and full ROM, 5/5 strength bilaterally Mental Status Exam: Appearance: grossly normal Mental Status: mental status grossly normal Mood: dysthymic mood Affect: dysphoric affect Speech and Movement: speech and movement normal and speech clear Attitude: cooperative Thought Process: normal Thought Content: denied hallucinations, no homicidality, no suicidality Insight: fair Judgment: fair Patient was personally seen by me on the day of the encounter. I reviewed the history and performed the freeman elements of the physical examination. I formulated the plan of care and confirmed this with the medical student as notedbeltahir. Patient presenting due to concern for hallucinations and suicidal thoughts. Shereported that she has stopped taking her medications for roughly 6 months. She requested interest on being back on her medications as she believed that they are working. PMFSH Vaccinated for COVID-19?: No Medical History ADHD Asthma Murmur Surgical History H/O: Hx of dilation and curettage Family History (Updated 10/26/21 @ 20:08 by Debo Sultana RN) Mother Bipolar disorder Hypertension Brother Asthma Social History Smoking Status: Current every day smoker Tobacco Type: cigarettes Substance Use Type: Marijuana Social History Comments: lives in a camper parked at boyfriend's grandpa house Meds Medications and Allergies Allergies No Known Allergies Allergy (Verified 10/26/21 17:14) Home Medications No known home meds 10/26/21 [History Confirmed 10/26/21] Exam Physical Exam Vital Signs: Temp Pulse Resp BP Pulse Ox O2 Del Method 98.8 F 68 16 115/69 97 Room Air 10/26/21 20:08 10/26/21 20:08 10/26/21 20:08 10/26/21 20:08 10/26/21 20:08 10/26/21 20:08 Results Labs CBC & Chem 7: 10/26/21 17:13 10/26/21 17:13 Psychiatry Labs: 10/26/21 10/26/21 10/26/21 17:00 17:13 17:13 RBC 4.05 Hgb 13.3 Hct 39.1 MCV 96.5 MCH 32.9 MCHC 34.1 RDW 13.0 Plt Count 173 MPV 9.0 Sodium 136 Potassium 3.4 L Chloride 104 Carbon Dioxide 25.3 Anion Gap 10.1 BUN 6 L Creatinine 0.81 Calcium 9.5 Total Bilirubin 0.4 AST 17 ALT 20 Alkaline Phosphatase 55 Total Protein 6.7 Albumin 4.0 Urine Color Yellow Urine Appearance Clear Urine pH 7.0 Ur Specific Herrin 1.005 Urine Protein Negative Urine Glucose (UA) Normal Urine Ketones Negative Urine Occult Blood Negative Urine Nitrite Negative Ur Leukocyte Esterase 1+ H Urine RBC 0-1 Urine WBC 1-2 Microbiology Microbiology: Microbiology - Results from entire visit 10/26/21 17:00 Nasal SARS Antigen (LFIA) - Final Assessment/Plan (1) Suicidal ideation: Code(s): R45.851 - Suicidal ideations Status: Acute (2) PTSD (post-traumatic stress disorder): Code(s): F43.10 - Post-traumatic stress disorder, unspecified Status: Acute Plan Patient presents with concerns for auditory hallucinations and suicidal ideation. Restart trial of previous medications and consider titrating dose if tolerated. Start Buspar 20 mg tid Start Prozac 20 mg daily Start Quetiapine 50 mg BID Start Gabapentin 200 mg twice a day Start prazosin 1 mg at bedtime Encourage compliance with medication Encouraged group participation Monitor for safety/suicidal precautions Documented By: Feliberto Faust MD 10/27/21 1056 Signed By: <Electronically signed by Feliberto Faust MD> 10/27/21 1507 [facility] Work Phone: History of Present illness Narrative History of Present Illness not supported for this document type No History of [facility] Work Phone: Hospital Discharge instructions* Instructions* Irish Nelson RN - 10/14/2020 SAME DAY SURGERY DISCHARGE INSTRUCTIONS 1. Do not drive or operate hazardous machinery for 24 hours. 2. Do not make important personal or business decisions for 24 hours. 3. Do not drink alcoholic beverages for 24 hours. 4. Do not smoke tobacco products for 24 hours. You have just undergone a minor operative procedure and these instructions should help you through the postoperative phase of the operation. Most patients feel sleepy for several hours after going home and this anesthetic effect may not wear off until the next morning. You should not use any alcoholic beverages or drive until the following day. It is advisable to take it easy for one or two days following your procedure by avoiding any lifting, pushing, moving or carrying any heavy objects; thereafter, you should be able to resume most of your normal activities and return to work. If a D&C was done either alone or in addition to another procedure, you may have some vaginal bleeding for several days, but probably not for more than a week. You should avoid baths (you may shower), tampons, douches or sexual relations for four weeks. Your menstrual period will occur approximately 3-4 weeks after the procedure, occasionally earlier. It also may be heavier than normal. You may experience some cramping or some mild to moderate lower abdominal discomfort, but this should be gone by the next day. In the meantime, you may take an yvob-zyy-trvloxn analgesic (Tylenol, Anacin, etc.) and use a heating pad applied to the lower abdomen. Please call the office as soon as possible for a post-operative visit in two weeks. If you experience any unusual amount of bleeding or side effects that you cannot readily explain, please do not hesitate to call the office. [facility] Discharge instructions Additional Instructions Regular diet No [facility] Work Phone: Instructions Instructions not supported for this document type No Instructions [facility] Work Phone: Patient problem outcome Narrative Includes: Evaluations & Outcomes for active Goals No Outcomes [facility] Work Phone: Progress note Author Osmani buagh [facility] October 28, 2021 12:18pm Note Date/Time October 28, 2021 12:18pm [facility] [address] [place] [address] Psychiatry Progress Note Signed Patient: Bennett Vaughn MR#: [id number] : 1995 Acct:[id number] Age/Sex: 26 / F Adm Date: 2 Loc: Room: 9A1210-3 Type : ADM IN Attending Dr: Feliberto Faust MD Copies to: ~ Date of Service: 10/28/2021 Subjective Subjective Narrative: Bennett reports improving mood. She states that she is still having auditory hallucinations but she can't seem to make out what the voices are saying which is better. Patient was personally seen by me on the day of the encounter. I reviewed the history and performed the freeman elements of the assessment. I formulated the planof care and confirmed this with the medical student as noted below Patient reported feeling better. She is tolerating the medications, no side effects reported. Depression rated 5/10 and anxiety rated 6-7/10. She denies suicidality or homicidality this morning. Mental Status Exam: Appearance: grossly normal Mental Status: mental status grossly normal Mood: improving Affect: reactive normal Speech and Movement: speech clear and speech and movement normal Attitude: cooperative Thought Process: normal Thought Content: denies hallucinations, no homicidality, no suicidality Insight: fair Judgment: fair Exam Physical Exam Vital Signs: Temp Pulse Resp BP Pulse Ox O2 Del Method 98.4 F 93 H 16 104/72 97 Room Air 10/28/21 07:30 10/28/21 07:30 10/27/21 21:12 10/28/21 07:30 10/28/21 07:30 10/28/21 07:30 Assessment/Plan Assessment/Plan (1) Bipolar affective, mixed, sev w/ psych: Code(s): F31.64 - Bipolar disorder, current episode mixed, severe, with psychotic features Status: Acute (2) PTSD (post-traumatic stress disorder): Code(s): F43.10 - Post-traumatic stress disorder, unspecified Status: Acute (3) Suicidal ideation: Code(s): R45.851 - Suicidal ideations Status: Acute Plan Patient presents with concerns for auditory hallucinations and suicidal ideation. Restart trial of previous medications and consider titrating dose if tolerated. Continue Buspar 20 mg? tid Continue Prozac 20 mg daily Continue Quetiapine 50 mg BID Continue Gabapentin 200 mg twice a day Continue prazosin 1 mg at bedtime Encourage compliance with medication Encouraged group participation Monitor for safety/suicidal precautions Documented By: Osmani Timmons MD 2 1102 Signed By: <Electronically signed by Osmani Timmons MD> 10/28/21 1218 [facility] Work Phone: Reason for referral (narrative)No Reason for Referral [facility] Work Phone: Review of systems Narrative - Reported Review of Systems not supported for this document type No Review of Systems [facility] Work Phone: Summary Purpose Family History No Family History Records Found Description Last Updated father unknown 03/20/2020 Fraternal history of asthma 03/20/2020 Maternal history of hypertension 021 Relationship Condition Age at Onset Recorded Date/T jama Not Specified Bipolar affective disorder Unknown Hypertension Unknown brother Asthma Unknown Description Last Updated father unknown 03/20/2020 Last Documented On 1 9:48AM ; [facility] Fraternal history of asthma 03/20/2020 Maternal history of hypertension 021 Advance Directives No Advanced Directives Records FoundDocuments on File Type Date Recorded Patient Armature Coil Winder Expl anation ACP-Advance Directive ACP-Power of Superintendent Compressor Stations Latest Code Status on File Code Status Date Activated Date Inactivated Comments Full Code 02/13/2018 11:30 AM 02/15/2018 11:04 PM Full Code 07/15/2017 3:32 AM 07/17/2017 3:26 PM Full Code 07/15/2017 3:31 AM 07/15/2017 3:32 AM Full Code 10/29/2016 5:43 AM 11/02/2016 12:08 AM Full Code 02/14/2015 3:50 AM 02/17/2015 4:19 PM Documents on File Type Date Recorded Patient Armature Coil Winder Expl anation ACP-Advance Directive ACP-Power of Superintendent Compressor Stations Latest Code Status on File Code Status Date Activated Date Inactivated Comments Full Code 10/14/2020 9:13 AM Full Code 02/13/2018 11:30 AM 02/15/2018 11:04 PM Full Code 07/15/2017 3:32 AM 07/17/2017 3:26 PM Full Code 07/15/2017 3:31 AM 07/15/2017 3:32 AM Full Code 10/29/2016 5:43 AM 11/02/2016 12:08 AM Latest Code Status on File Code Status Date Activated Date Inactivated Comments Full Code 10/14/2020 9:13 AM 10/14/2020 3:32 PM Full Code 02/13/2018 11:30 AM 02/15/2018 11:04 PM Healthcare Agents on File Name Relationship Healthcare Agent Relationsid p Communication Aaron Dagoberto Spouse Primary Decision Maker Healthcare Agents on File Name Relationship Healthcare Agent Relationshi p Communication Aaron Dagoberto Spouse Primary Decision Maker Advance Directive Response Recorded Date/ Time Advance Directives No March 6:35am Healthcare Agents on File Name Relationship Healthcare Agent Shavonhi p Communication Aaron Dagoberto Spouse Primary Decision Maker Latest Code Status on File Code Status Date Activated Date Inactivated Comments Full Code 03/04/2022 10:59 AM Full Code 10/14/2020 9:13 AM 10/14/2020 3:32 PM Healthcare Agents on File Name Relationship Healthcare Agent Relationshi p Communication Aaron Dagoberto Spouse Primary Decision Maker Latest Code Status on File Code Status Date Activated Date Inactivated Comments Full Code 03/04/2022 10:59 AM 03/04/2022 4:35 PM Full Code 10/14/2020 9:13 AM 10/14/2020 3:32 PM Healthcare Agents on File Name Relationship Healthcare Agent Shavonhi p Communication Aaron Dagoberto Spouse Primary Decision Maker Latest Code Status on File Code Status Date Activated Date Inactivated Comments Full Code 03/04/2022 10:59 AM 03/04/2022 4:35 PM Code Status History Code Status Date Activated Date Inactivated Comments Full Code 10/14/2020 9:13 AM 10/14/2020 3:32 PM Full Code 02/13/2018 11:30 AM 02/15/2018 11:04 PM Full Code 07/15/2017 3:32 AM 07/17/2017 3:26 PM Full Code 07/15/2017 3:31 AM 07/15/2017 3:32 AM Healthcare Agents on File Name Relationship Healthcare Agent Shavonhi p Communication Aaron Dagoberto Spouse Primary Decision Maker Latest Code Status on File Code Status Date Activated Date Inactivated Comments Full Code 03/04/2022 10:59 AM 03/04/2022 4:35 PM Code Status History Code Status Date Activated Date Inactivated Comments Full Code 10/14/2020 9:13 AM 10/14/2020 3:32 PM Full Code 02/13/2018 11:30 AM 02/15/2018 11:04 PM Full Code 07/15/2017 3:32 AM 07/17/2017 3:26 PM Full Code 07/15/2017 3:31 AM 07/15/2017 3:32 AM Healthcare Agents on File Name Jose [facility] Lupe Arenas Other Primary Decision Maker Healthcare Agents on File Name Jose C Arenas Other Primary Decision Maker Discharge Instructions * Instructions* Sid Norris MD - 05/27/2020 Please take all medications as prescribed. Please follow up with your primary care physician by calling today, or as soon as possible, for thefirst available appointment. If you do not have a primary care physician, please contact a physician or clinic listed below today to establish care. Please return to the emergency department IMMEDIATELY if you develop uncontrolled fevers, uncontrolled vomiting, change in symptoms, worsening of symptoms, or ANY other concerns. * Attachments The following attachments cannot be sent through Care Everywhere. * Tooth: Abscessed (Citizen Of [place]) documented in this encounter* Instructions* Sid Norris MD - 02/25/2020 Please take all medications as prescribed. Please follow up with your primary care physician by calling today, or as soon as possible, for thefirst available appointment. If you do not have a primary care physician, please contact a physician or clinic listed below today to establish care. Please return to the emergency department IMMEDIATELY if you develop uncontrolled fevers, uncontrolled vomiting, change in symptoms, worsening of symptoms, or ANY other concerns. * Attachments The following attachments cannot be sent through Care Everywhere. * Bacterial Vaginosis (Citizen Of [place]) * Vaginal Bleeding (Citizen [place]) documented in this encounter* Instructions* Irina Ojeda PA-C - 02/06/2020 Call your dentist to arrange follow-up for recheck this week. * Attachments The following attachments cannot be sent through Care Everywhere. * Tooth: Abscessed (Citizen Of [place]) documented in this encounter* Instructions* Jose Saldaña APRN - CNP - 12/24/2019 Take amoxicillin as prescribed. Return to the emergency department for worsening symptoms. * Attachments The following attachments cannot be sent through Care Everywhere. * Dental Care: Pre-Dental Work Precautions: General Info (Citizen Of [place]) documented in this encounter Assessments Diagnosis Dental infection Acute apical periodontitis of pulpal origin Diagnosis Dental abscess Periapical abscess without sinus Dental caries Unspecified dental caries Diagnosis Bacterial vaginosis- Primary Vaginitis and vulvovaginitis, unspecified Vaginal bleeding Other specified noninflammatory disorder of vagina Findings Encounter Date Bipolar disorder (per patijeremías t, diagnosed w/both Bipolar I & II) Telebehavioral Health with Halima Marroquins [facility] 03/20/2020 Schizoaffective disorder (pe r patient report) Telebehavioral Health with Halima Condonmons [facility] 03/20/2020 Asthma Telemedicine New Pat ient with Kia Edith [facility] 03/20/2020 Lumbago Telemedicine New Pat ient with Kiafranco Sharma [facility] 03/20/2020 Z68.21 - Body mass index [BM I] 21.0-21.9, adult Telemedicine New Patient with Kia Edith [facility] 03/20/2020 Diagnosis Women's annual routine gynecological examination Findings Encounter Date Asthma Medical Established Patient with Kia Edith [facility] 04/03/2020 Body mass index Medical Established Patient with Kia Sharma [facility] 04/03/2020 Esophageal reflux without esophagitis Me dical Established Patient with Kia Sharma [facility] 04/03/2020 Lower backache Medical Established Patient with Kiafranco Sharma [facility] 04/03/2020 Bipolar disorder (per denia t, diagnosed w/both Bipolar I & II) Telebehavioral Health with Halima Condonmons [facility] 03/20/2020 Schizoaffective disorder (pe r patient report) Telebehavioral Health with Halima Condonmons [facility] 03/20/2020 Asthma Telemedicine New Pat ient with Kia Sharma [facility] 03/20/2020 Lumbago Telemedicine New Pat ient with Kiafranco Sharma [facility] 03/20/2020 Z68.21 - Body mass index [BM I] 21.0-21.9, adult Telemedicine New Patient with Kia Sharma [facility] 03/20/2020 Diagnosis Dental infection- Primary Acute apical periodontitis of pulpal origin Reason for Referral No Reason for Referral RecordedNo Reason for Referral RecordedNo Reason for Referral RecordedNo Reason for Referral Recorded Instructions Instructions not supported for this document type No Instructions Recorded Instructions not supported for this document type No Instructions Recorded Instructions not supported for this document type No Instructions Recorded Instructions not supported for this document type No Instructions Recorded History of Present Illness History of Present Illness not supported for this document type No History of Present Illness Recorded History of Present Illness not supported for this document type No History of Present Illness Recorded History of Present Illness not supported for this document type No History of Present Illness Recorded History of Present Illness not supported for this document type No History of Present Illness Recorded Review of System Review of Systems not supported for this document type No Review of Systems Recorded Review of Systems not supported for this document type No Review of Systems Recorded Review of Systems not supported for this document type No Review of Systems Recorded Review of Systems not supported for this document type No Review of Systems Recorded Physical Exam Physical Exam not supported for this document type No Physical Exam Recorded Physical Exam not supported for this document type No Physical Exam Recorded Physical Exam not supported for this document type No Physical Exam Recorded Physical Exam not supported for this document type No Physical Exam Recorded Physical Exam not supported for this document type No Physical Exam Recorded Physical Exam not supported for this document type No Physical Exam Recorded Physical Exam not supported for this document type No Physical Exam Recorded Physical Exam not supported for this document type No Physical Exam Recorded Physical Exam not supported for this document type No Physical Exam Recorded Physical Exam not supported for this document type No Physical Exam Recorded Physical Exam not supported for this document type No Physical Exam Recorded Physical Exam not supported for this document type No Physical Exam Recorded Physical Exam not supported for this document type No Physical Exam Recorded Physical Exam not supported for this document type No Physical Exam Recorded Chief Complaint and Reason for Visit Chief Complaint mhp Reason for Visit Bipolar affective, m ixed, sev w/ psych Chronic schizophrenia PTSD (post-traumatic stress disorder) Suicidal ideation Additional Source Comments INFORMATION SOURCE (unrecogn ized section and content) DATE CREATED AUTHOR 12/08/2018 [facility] DATE CREATED AUTHOR AUTHOR'S ORGANIZ ATION 05/31/2021 [facility] DATE CREATED AUTHOR AUTHOR'S ORGANIZ ATION 03/16/2022 [facility] DATE CREATED AUTHOR AUTHOR'S ORGANIZ ATION 04/02/2022 [facility] DATE CREATED AUTHOR AUTHOR'S ORGANIZ ATION 07/01/2023 [facility] DATE CREATED AUTHOR AUTHOR'S ORGANIZ ATION 07/08/2023 [facility] dical Specialists EPIC Reason for Visit (unrecogniz ed section and content) Reason Comments Dental Pain pt states ongoing. P t states she needs to have her teeth pulled. Reason Comments Dental Pain front, lower. Onset yesterday. Pt states she has a history dental pain, and has a dental appt on 02/12 Reason Comments Vaginal Bleeding having multiple ignacia ods a month. Pt thinks she has HPV. Reason Comments Dental Pain left side dental tessy n started yesterday Status Reason Specialty Diagnoses / Procedures Re ferred By Contact Referred To Contact Diagnoses SHREYA II (cervical intraepithelial neoplasia II) SHREYA II Procedures NH CONIZATION CERVIX,LOOP ELECTRD DILATATION AND CURETTAGE LEEP-ENDOCERVICAL CURETTAGE Anthony Galloway MD [address] [facility] [address] [place] [address] [facility] Reason Comments Breast Pain Right sided, onset y pm, patient states she had an infection in her right breast a few months ago Specialty Diagnoses / Procedures Referred By Gladis t Referred To Contact Diagnoses Abscess of right breast right breast abcess Procedures NH DRAIN SKIN ABSCESS SIMPLE BREAST INCISION AND DRAINAGE- BREAST Geoff Miller MD [address] [place] [address] [facility] [address] [place] [address] Referral ID Status Reason Start Date Expiration Date Visits Re quested Visits Authorized [id number] 1 1 Reason Comments Nausea Emesis Illness Pt. States she has h ad nausea & vomiting since this am. Reports hot & cold flashes & Occasional dizziness Specialty Diagnoses / Procedures Referred By Gladis vega Referred To Contact Radiology Diagnoses Abscess of female breast Procedures US BREAST LIMITED RIGHT US BREAST COMPLETE RIGHT Geoff Miller MD [address] [place] [address] Referral ID Status Reason Start Date Expiration Date Visits Re quested Visits Authorized [id number] Open 04/18/2022 04/18/2023 1 1 Specialty Diagnoses / Procedures Referred By Gladis vega Referred To Contact Radiology Diagnoses Abscess of female breast Procedures DUSTIN JASMINA DIGITAL DIAGNOSTIC BILATERAL DUSTIN DIGITAL DIAGNOSTIC W OR WO CAD BILATERAL Geoff Miller MD [address] [place] [address] Referral ID Status Reason Start Date Expiration Date Visits Re quested Visits Authorized [id number] Closed 04/18/2022 04/18/2023 1 1 Reason Comments Flank Pain Left sided flank tessy n that started yesterday and came back this AM. Ordered Prescriptions (unrec ognized section and content) Prescription Sig Dispensed Refills Start Date End Da te metroNIDAZOLE (FLAGYL) 500 MG tablet Take 1 tablet by mouth 2 times daily for 7 days 14 tablet 0 02/25/2020 03/03/2020 Prescription Sig Dispensed Refills Start Date End Da te benzocaine (ORAJEL) 10 % mucosal gel Take by mouth as needed. 7 g 0 05/27/2020 penicillin v potassium (VEETID) 500 MG tablet Take 1 tablet by mouth 4 times daily for 7 days 28 tablet 0 05/27/2020 06/03/2020 acetaminophen (TYLENOL) 325 MG tablet Take 2 tablets by mouth every 6 hours as needed for Pain 30 tablet 0 05/27/2020 ibuprofen (ADVIL;MOTRIN) 800 MG tablet Take 1 tablet by mouth every 8 hours as needed for Pain 30 tablet 0 05/27/2020 Prescription Sig Dispensed Refills Start Date End Da te HYDROcodone-acetaminophe n (NORCO) 5-325 MG per tabletIndications:HGSIL on cytologic smear of cervix Take 1 tablet by mouth every 6 hours as needed for Pain for up to 3 days. Intended supply: 3 days. Take lowest dose possible to manage pain 10 tablet 0 10/14/2020 10/17/2020 Prescription Sig Dispensed Refills Start Date End Da te ibuprofen (IBU) 600 MG tablet Take 1 tablet by mouth every 6 hours as needed for Pain 120 tablet 0 03/01/2022 clindamycin (CLEOCIN) 150 MG capsule Take 3 capsules by mouth 3 times daily for 7 days 63 capsule 0 03/01/2022 03/08/2022 Prescription Sig Dispensed Refills Start Date End Da te HYDROcodone-acetaminophe n (NORCO) 5-325 MG per tabletIndications:Absces s of right breast Take 1 tablet by mouth every 6 hours as needed for Pain for up to 3 days. Intended supply: 3 days. Take lowest dose possible to manage pain Max Daily Amount: 4 tablets 12 tablet 0 03/04/2022 03/07/2022 Prescription Sig Dispensed Refills Start Date End Da te ondansetron (ZOFRAN) 4 MG tablet Take 1 tablet by mouth 3 times daily as needed for Nausea or Vomiting 15 tablet 0 04/24/2022 Prescription Sig Dispensed Refills Start Date End Da te ondansetron (ZOFRAN-ODT) 4 MG disintegrating tablet Take 1 tablet by mouth 3 times daily as needed for Nausea or Vomiting 10 tablet 0 08/03/2022 cephALEXin (KEFLEX) 500 MG capsule Take 1 capsule by mouth 3 times daily for 7 days 21 capsule 0 08/03/2022 08/10/2022 Medical History (unrecognize d section and content) Description per pt report- 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 ~heartb urn 03/20/2020 History of psychiatric disor ders ADHD, manic bipolar 1 and 2, schizoeffective disorder 03/20/2020 History of tooth extraction 03/20/2020 History of asthma 03/20/2020 A recent immunization for flu 03/20/2020 No previous hospitalizations 03/20/2020 Evaluations & Outcomes (unre cognized section and content) Includes: Evaluations & Outcomes for active GoalsNo Outcomes Recorded Includes: Evaluations & Outcomes for active GoalsNo Outcomes Recorded Includes: Evaluations & Outcomes for active GoalsNo Outcomes Recorded Includes: Evaluations & Outcomes for active GoalsNo Outcomes Recorded Scheduled Active and Recently Administ ered Medications (unrecognized section and content) Medication Order 10/12/2020 10/13/2020 10/14/2020 acetaminophen (TYLENOL) tablet 650 mg (COMPLETED) 650 mg, Oral, ONCE, On Mon10/14/20 at 0930, For 1 dose, Maximum dose of acetaminophen is 4000 mg from all sources in 24 hours., Pre-op (day of surgery) 0952 (Given - Provid er: Kassidy Davidson RN) ceFAZolin (ANCEF) 2000 mg in dextrose 5 % 100 mL IVPB (COMPLETED) 2,000 mg, Intravenous, DRY HOUSE WORKER TO O.R., 1 dose, On Mon10/14/20 at 0930, Administer within 1 hour prior to incision., Pre-op (day of surgery) 1105 (New Bag - Prov ider: Sun Fagan RN)1135 (Due: Stopped - Provider: Sun Fagan RN) Continuous Medication Order 10/12/2020 10/13/2020 10/14/2020 lactated ringers infusion Intravenous, at 100 mL/hr, CONTINUOUS, Starting on Mon10/14/20 at 0930, Pre-op (day of surgery) 0959 (New Bag - Prov ider: Kassidy Davidson RN)1106 (NoRateChange - Provider: Anthony Galloway MD) PRN Medication Order 10/12/2020 10/13/2020 10/14/2020 fentaNYL (SUBLIMAZE) injection 25 mcg 25 mcg, Intravenous, EVERY 5 MIN PRN, Pain Moderate (4-6), Starting on Mon10/14/20 at 1137, For 4 doses, Phase I - Secondary therapy to be used after all initial moderate pain medication doses have been administered., PACU only fentaNYL (SUBLIMAZE) injection 50 mcg 50 mcg, Intravenous, EVERY 5 MIN PRN, Pain Severe (7-10), Starting on Mon10/14/20 at 1137, For 4 doses, Phase I - Secondary therapy to be used after all initial severe pain medication doses have been administered., PACU only ferric subsulfate (MONSELS) external solution (CANCELED) PRN, Starting on Mon10/14/20 at 1129, Intra-op 1129 (Given - Provid er: Anthony Galloway MD) metoclopramide (REGLAN) injection 10 mg 10 mg, Intravenous, ONCE PRN, Nausea, Starting on Mon10/14/20 at 1137, For 1 dose, Secondary antiemetic therapy., PACU only ondansetron (ZOFRAN) injection 4 mg (COMPLETED) 4 mg, Intravenous, ONCE PRN, Nausea, Starting on Mon10/14/20 at 1137, For 1 dose, Initial antiemetic therapy., PACU only 1215 (Given - Provid er: Summer Sousa RN) oxyCODONE (ROXICODONE) immediate release tablet 5 mg 5 mg, Oral, ONCE PRN, Pain Moderate (4-6), Starting on Mon10/14/20 at 1137, For 1 dose, PHASE II, PACU only strong iodine 5 % solution (CANCELED) PRN, Starting on Mon10/14/20 at 1129, Intra-op 1129 (Given - Provid er: Anthony Galloway MD) Scheduled Medication Order 02/27/2022 02/28/2022 03/01/2022 clindamycin (CLEOCIN) capsule 450 mg (COMPLETED) 450 mg, Oral, ONCE, 1 dose, On Mon03/01/22 at 0815, Antimicrobial Indications: Skin and Soft Tissue Infection 0839 (Given - Provid er: Samara Mars RN) HYDROcodone-acetaminophen (NORCO) 5-325 MG per tablet 1 tablet (COMPLETED) 1 tablet, Oral, ONCE, 1 dose, On Mon03/01/22 at 0815, Maximum dose of acetaminophen is 4000 mg from all sources in 24 hours. 0840 (Given - Provid er: Samara Mars RN) Scheduled Medication Order 03/02/2022 03/03/2022 03/04/2022 acetaminophen (TYLENOL) tablet 1,000 mg (COMPLETED) 1,000 mg, Oral, ONCE, 1 dose, On Mon03/04/22 at 1115, Administer 60 minutes prior to surgery., Pre-op (day of surgery) 1143 (Given - Provid er: Etelvina Whittington RN) ceFAZolin (ANCEF) 2000 mg in dextrose 5 % 100 mL IVPB (COMPLETED) 2,000 mg, IntraVENous, DRY HOUSE WORKER TO O.R., 1 dose, On Mon03/04/22 at 1115, Antimicrobial Indications: Surgical Prophylaxis, Administer within 1 hour prior to incision. Recommend to repeat in 3-4 hours after initial dose if still intra-op., Pre-op (day of surgery) 1244 (Given - Provid er: Roseanne Kruse, POWER SYSTEM DISPATCHER - COMBAT INFORMATION CENTER OFFICER) dimenhyDRINATE (DRAMAMINE) tablet 50 mg (COMPLETED) 50 mg, Oral, ONCE, 1 dose, On Mon03/04/22 at 1115, Pre-op (day of surgery) 1143 (Given - Provid er: Etelvina Whittington RN) sodium chloride flush 0.9 % injection 5-40 mL 5-40 mL, IntraVENous, EVERY 12 HOURS SCHEDULED (2 times per day), First dose on Mon03/04/22 at 1115, Until Discontinued, For Line Patency: Peripheral IV = 5 mL; Midline or Central Line = 10 mL/lumen. If following IV push medication, administer flush at same rate as the IV push. Flush volume is determined by type of infusion therapy being given. For non-viscous solutions use: Peripheral IV = 5 mL Midline or Central Line = 10 mL/lumen For viscous solutions (i.e. blood components, parenteral nutrition, contrast media, or after obtaining blood sample) use: Peripheral IV = 10 mL Midline or Central Line = 20 mL/lumen, Pre-op (day of surgery) 1115 (Due)2100 (Due) Continuous Medication Order 03/02/2022 03/03/2022 03/04/2022 lactated ringers infusion IntraVENous, at 100 mL/hr, CONTINUOUS, Starting on Mon03/04/22 at 1115, Pre-op (day of surgery) 1142 (New Bag - Prov ider: Etelvina Whittington RN)1236 (NoRateChange - Provider: NADYA Fischer CRNA)1307 (Paused - Provider: NADYA Fischer CRNA - Comment: Switch to gravity)1308 (Restarted - Provider: ANDYA Fischer CRNA)1422 (Stopped - Provider: Martha Melgoza RN) lactated ringers infusion IntraVENous, at 125 mL/hr, CONTINUOUS, Starting on Mon03/04/22 at 1330, PACU only 1330 (Due) PRN Medication Order 03/02/2022 03/03/2022 03/04/2022 0.9 % sodium chloride infusion IntraVENous, at 5-250 mL/hr, PRN, if patient receiving piggyback infusions and maintenance fluids are not ordered OR KVO fluids to protect IV site / prevent frequent line interruptions/ long duration, Starting on Mon03/04/22 at 1059, For piggyback infusion, administer at same rate as piggyback for a total of 25 mL. Enter 25 mL into dose field and piggyback rate into rate field of order. If piggyback is infusing at a rate less than 100 mL/hr, enter 25 mL into dose field and 100 mL/hr into rate field of order. For KVO fluids, enter rate of 20 mL/hr or less into rate field of order., Pre-op (day of surgery) bupivacaine (MARCAINE) 0.25 % injection (CANCELED) PRN, Starting on Mon03/04/22 at 1354, Until Mon03/04/22 at 1354, Intra-op 1354 (Given - Provid er: Geoff Miller MD) fentaNYL (SUBLIMAZE) injection 25 mcg 25 mcg, IntraVENous, EVERY 5 MIN PRN, 4 doses, Starting on Mon03/04/22 at 1313, Until Discontinued, Pain Moderate (4-6), Phase I - Initial therapy for moderate pain., PACU only fentaNYL (SUBLIMAZE) injection 50 mcg 50 mcg, IntraVENous, EVERY 5 MIN PRN, 4 doses, Starting on Mon03/04/22 at 1313, Until Discontinued, Pain Severe (7-10), Phase I - Initial therapy for severe pain., PACU only ondansetron (ZOFRAN) injection 4 mg 4 mg, IntraVENous, ONCE PRN, 1 dose, Starting on Mon03/04/22 at 1313, Until 03/05/22 at 1313, Nausea, Initial antiemetic therapy., PACU only oxyCODONE (ROXICODONE) immediate release tablet 10 mg(Linked Group 1) 10 mg, Oral, PRN, 1 dose, Starting on Mon03/04/22 at 1313, Until Mon03/04/22 at 2359, Pain Severe (7-10), PHASE II, PACU only oxyCODONE (ROXICODONE) immediate release tablet 5 mg(Linked Group 1) 5 mg, Oral, PRN, 1 dose, Starting on Mon03/04/22 at 1313, Until Mon03/04/22 at 2359, Pain Moderate (4-6), PHASE II, PACU only prochlorperazine (COMPAZINE) injection 5 mg 5 mg, IntraVENous, ONCE PRN, 1 dose, Starting on Mon03/04/22 at 1313, Until 03/05/22 at 1313, Nausea, Secondary antiemetic therapy., PACU only sodium chloride flush 0.9 % injection 5-40 mL 5-40 mL, IntraVENous, PRN, Starting on Mon03/04/22 at 1059, Until Discontinued, Line Care, After every IV line use, For Line Patency: Peripheral IV = 5 mL; Midline or Central Line = 10 mL/lumen. If following IV push medication, administer flush at same rate as the IV push. Flush volume is determined by type of infusion therapy being given. For non-viscous solutions use: Peripheral IV = 5 mL Midline or Central Line = 10 mL/lumen For viscous solutions (i.e. blood components, parenteral nutrition, contrast media, or after obtaining blood sample) use: Peripheral IV = 10 mL Midline or Central Line = 20 mL/lumen, Pre-op (day of surgery) Linked Groups Order Group 1: oxyCODONE (ROXICODONE) immediate release tablet 5 mgJump to med 5 mg, Oral, PRN, 1 dose, Starting on Mon03/04/22 at 1313, Until Mon03/04/22 at 2359, Pain Moderate (4-6)
PHASE II
PACU only Or oxyCODONE (ROXICODONE) immediate release tablet 10 mgJump to med 10 mg, Oral, PRN, 1 dose, Starting on Mon03/04/22 at 1313, Until Mon03/04/22 at 2359, Pain Severe (7-10)
PHASE II
PACU only Scheduled Medication Order 04/22/2022 04/23/2022 04/24/2022 0.9 % sodium chloride bolus (COMPLETED) 1,000 mL (13.5 mL/kg), IntraVENous, at 495.9 mL/hr, Administer over 121 Minutes, ONCE, On Mon04/24/22 at 1130, For 1 dose, For adult patients weighing > 55 kg (120 lbs.) and less than <50 years of age initiate 0.9NS at 500 mL/ hr. All bolus orders are to be given over 10 to 15 minutes 1204 (New Bag - Prov ider: Jefferson Mceke RN)1412 (Stopped - Provider: Jefferson Mckee RN) 0.9 % sodium chloride bolus (COMPLETED) 1,000 mL (13.5 mL/kg), IntraVENous, at 495.9 mL/hr, Administer over 121 Minutes, ONCE, On Mon04/24/22 at 1400, For 1 dose, For adult patients weighing > 55 kg (120 lbs.) and less than <50 years of age initiate 0.9NS at 500 mL/ hr. All bolus orders are to be given over 10 to 15 minutes 1412 (New Bag - Prov ider: Jefferson Mckee RN)1528 (Stopped - Provider: Jefferson Mckee RN) ondansetron (ZOFRAN) injection 4 mg (COMPLETED) 4 mg, IntraVENous, ONCE, 1 dose, On 04/24/22 at 1130 1201 (Given - Provid er: Jefferson Mckee RN) ondansetron (ZOFRAN) injection 4 mg (COMPLETED) 4 mg, IntraVENous, ONCE, 1 dose, On 04/24/22 at 1300 1303 (Given - Provid er: Jefferson Mckee RN) PRN Medication Order 04/22/2022 04/23/2022 04/24/2022 iopamidol (ISOVUE-370) 76 % injection 75 mL (COMPLETED) 75 mL, IntraVENous, IMG ONCE PRN, 1 dose, Starting on 04/24/22 at 1322, Until 04/24/22 at 1323, Other 1323 (Given - Provid er: Layo Hicks) No Frequency Medication Order 04/22/2022 04/23/2022 04/24/2022 ondansetron (ZOFRAN) 4 MG/2ML injection 1 dose, Starting on 04/24/22 at 1203, Until Mon04/25/22 at 0014, Jefferson Mckee: cabinet override, Jefferson Mckee: cabinet override 1205 (Not Given - Pr ovider: Jefferson Mckee RN - Reason: Other - Comment: original container fell on floor) Scheduled Medication Order 08/01/2022 08/02/2022 08/03/2022 0.9 % sodium chloride bolus (COMPLETED) 1,000 mL, IntraVENous, at 983.6 mL/hr, Administer over 61 Minutes, ONCE, On Mon08/03/22 at 0730, For 1 dose 0730 (New Bag - Prov ider: Jefferson Mckee RN)0831 (Stopped - Provider: Avelina Wyatt RN) ketorolac (TORADOL) injection 30 mg (COMPLETED) 30 mg, IntraVENous, ONCE, 1 dose, On Mon08/03/22 at 0730, Do not administer for more than 5 days. 0731 (Given - Provid er: Jefferson Mckee RN) ondansetron (ZOFRAN) injection 4 mg (COMPLETED) 4 mg, IntraVENous, ONCE, 1 dose, On Mon08/03/22 at 0730 0730 (Given - Provid er: Jefferson Mckee RN) Care Teams (unrecognized sec tion and content) Team Status: Inactive Member Role Status Dates PHYSICIAN NO FAMILY Primary Care Provider Active Ed Amaral DO Emergency Provider Active Feliberto Faust MD Admit Provider, Attending Provider Active Team Status: Active Member Role Status Dates PHYSICIAN NO FAMILY Primary Care Provider Active Wheat Shipper Relationship Specialty Start Date End Date Kia Sharma, POWER SYSTEM DISPATCHER - SYNTHETIC DEPARTMENT SUPERVISOR [address] [facility], [place] [id number] PCP - General Nurse Practitioner 04/13/22 Wheat Shipper Relationship Specialty Start Date End Date Kia Sharma, POWER SYSTEM DISPATCHER - SYNTHETIC DEPARTMENT SUPERVISOR [address] [facility] [place] [address] PCP - General Nurse Practitioner 04/13/22 Wheat Shipper Relationship Specialty Start Date End Date Kia Sharma, POWER SYSTEM DISPATCHER - SYNTHETIC DEPARTMENT SUPERVISOR [address] [place] [address] PCP - General Nurse Practitioner 04/13/22 Wheat Shipper Relationship Specialty Start Date End Date Kia Sharma, POWER SYSTEM DISPATCHER - SYNTHETIC DEPARTMENT SUPERVISOR [address] [place] [id number] PCP - General Nurse Practitioner 04/13/22 FOR RECORDS PERTAINING TO PATIENTS WHO ARE OR HAVE BEEN ENROLLED IN A CHEMICAL DEPENDENCY/SUBSTANCEABUSE PROGRAM, SOME INFORMATION MAY BE OMITTED. This clinical summary was aggregated from multiple sources. Caution should be exercised in using it in the provision of clinical care. This summary normalizes information from multiple sources, and as a consequence, information in this document may materially change the coding, format and clinical context of patient data. In addition, data may be omitted in some cases. CLINICAL DECISIONS SHOULD BE BASED ON THE PRIMARY CLINICAL RECORDS. [employer] [facility] provides no warranty or guarantee of the accuracy or completeness of information in this document.
[2023-07-10 06:08] VITALS: BP 137/59; PULSE 80
[2023-07-10 06:57] LABS: Bilirubin Urine NEGATIVE (NEGATIVE); Blood Urine NEGATIVE (NEGATIVE); Clarity Urine CLEAR (CLEAR); Color Urine LT. YELLOW (YELLOW); Glucose Urine UA NEGATIVE (NEGATIVE); Ketones Urine NEGATIVE (NEGATIVE); Leukocyte Esterase Urine NEGATIVE (NEGATIVE); Nitrite Urine NEGATIVE (NEGATIVE); Protein Urine NEGATIVE (NEG/TRACE); Specific Gravity Urine <=1.005 (1.005-1.025); Urobilinogen Urine 0.2 EU/dL (0.2-1.0)
[2023-07-10 07:01] LABS: Urine Microscopic Indicated NO
== END 2023-07-10 07:42 | disposition home or self-care (01) ==
LOC: FBC 05:25
PROVIDERS: Admitting Provider Obstetrics & Gynecology; Visit Provider Obstetrics & Gynecology
DX: O36.8190 Decreased fetal movements, unspecified trimester, not applicable or unspecified (principal); Z3A.00 Weeks of gestation of pregnancy not specified
CPT/HCPCS: 81003; G0378; G0379

== ENCOUNTER 2023-08-04 12:58 | Outpatient (OUT) | payer OTHER, SELFPAY ==
[2023-08-04 14:23] LABS: Basophils Percent Auto 0.2 % (0.2-2.0); Hematocrit 31.5 % (36.0-48.0); Hemoglobin 10.7 g/dL (12.0-16.0); Immature Granulocytes Abs Auto 0.07 10^3/uL (0.00-0.03); Immature Granulocytes Pct Auto 0.5 % (0.0-0.5); Lymphocytes Absolute Auto 1.8 10^3/uL (1.2-3.8); Lymphocytes Percent Auto 13.5 % (20.5-60.0); Mean Corpuscular Hemoglobin 32.8 pg (26.7-34.0); Mean Corpuscular Volume 96.6 fL (81.0-99.0); Monocytes Absolute Auto 0.8 10^3/uL (0.3-0.8); Monocytes Percent Auto 5.7 % (1.7-12.0); Neutrophils Absolute Auto 10.6 10^3/uL (1.4-6.5); Neutrophils Percent Auto 80.1 % (43.0-75.0); Platelet Count 237 10^3/uL (150-450); Red Blood Count 3.26 10^6/uL (4.20-5.40); Red Cell Distribution Width 12.5 % (11.0-15.0); White Blood Count 13.3 10^3/uL (4.0-11.0)
[2023-08-04 15:02] LABS: Glucose 1 Hour 133 mg/dL (<130)
== END 2023-08-04 12:59 | disposition home or self-care (01) ==
LOC: LAB 13:02
PROVIDERS: Visit Provider Physician Assistant
DX: Z13.1 Encounter for screening for diabetes mellitus (principal)
CPT/HCPCS: 36415; 82950; 85025

== ENCOUNTER 2023-08-18 12:41 | Outpatient (OUT) | payer OTHER, SELFPAY ==
--- OUTSIDE RECORDS SUMMARY | 2023-08-18 12:48 | XMS_ITS | CCD ---
Author Organization [facility] CliniSyri Care Team Providers Care Director Weights And Measures Name Role Phone Bryce De La Garza Admitting Physician Unavailable Bryce De La Garza Attending Physician Unavailable NON, STAFF Primary Care Physician Unavailab Savage Roman Rounding Physician Unavailable FEI LOO Admitting Unavailable FEI LOO Attending Unavailable Unavailable Primary Care Provider UnavailKia Jeffrey Primary Care Provider Unavailable Primary Care Provider UnavailKia Jeffrey CNP Primary Care Provider KIA SHARMA Referring Unavailable NO FAMILY, PHYSICIAN Primary Care Provider Unava DO Ed Hoover Emergency Provider MD Chandrika Faustmi Admit Provider [phone] MD Feliberto Faust Attending Provider [phone] Unavailable Primary Care Provider UnavailDR YURIY Peraza [...] Care Unavailable MARTIN REAL Attending Unavailable KIA SHARMA Primary Care Unavailable KIA SHARMA Primary Care Unavailable YURIY SABILLON Referring Unavailable YURIY SABILLON Attending Unavailable YURIY SABILLON Attending Unavailable YURIY SABILLON Attending Unavailable GENESIS OJEDA Attending Unavailable Medications Current Medications Medication Drug Class(es) Dates Sig (Normalized) Sig (Original) acetaminophen 500 mg oral tablet (18 sources) Start: 03-04-2022 acetaminophen (TYLENOL) tablet 1,000 mg Start: 10-14-2020 acetaminophen (TYLENOL) tablet 650 mg Start: 05-27-2020 acetaminophen (TYLENOL) tablet 1,000 mg Start: 05-27-2020 take 2 tablets by mo [facility] every six hours as needed for pain [...] pain 10 tablet 0 10/14/2020 10/17/2020 Active [id number] 200 actuat albuterol 0.09 mg/actuat metered dose [...] MCG/ACT Inhalation Aerosol 07/27/2022 Provider: Mariposa Duncan [employer] busPIRone hydrochloride 10 mg oral tablet (20 [...] daily Fluoxetine Discontinued 60 MG PO Daily 30 April 13, 2019 1:00am August 16, 2019 [...] 12:00am Start: 09-15-2020 take 1 tablet by three times daily as needed for anxiety [...] Flank pain; Translations: [Unspecified abdominal pain] Onset: 06-07-2023 Episodic Mood disorders (5 sources) Bipolar I [...] SIGNIFICANT GROWTH Report Status FINAL 07/01/2023 Normal [facility] Comment on above: Performed By: #### U RC #### [address] [id number] Activity Therapy Specialist: Claude Gonzalez MD [facility] [address] [place] [address] [place] [address] Activity Therapy Specialist: Hayden Cartagena MD Urinalysis w/ Microon 2023 Bilirubin, SemiQt,Ur Negative Normal NEG [facility] Comment on above: Performed By: #### U AXRAFAEL #### [address] [place] [address] Activity Therapy Specialist: Hayden Cartagena MD Blood, Urine Negative Normal NEG [facility] Comment on above: Performed By: #### U AXRAFAEL #### [address] [place], [place] [id number] Activity Therapy Specialist: Hayden Cartagena MD Clarity (U) Clear Normal CLEAR [facility] Comment on above: Performed By: #### U AX, UMICAO #### [address] [place], [place] [id number] Activity Therapy Specialist: Hayden Cartagena MD Color (U) Yellow Normal YEL [facility] Comment on above: Performed By: #### U AX, UMICAO #### [facility] [address] [place] [address] [place] [address] Activity Therapy Specialist: Hayden Cartagena MD Epithelial cells LM Ql (Urine sed) 2 TO 5 Normal 0-25 [facility] Comment on above: Performed By: #### U AX, UMICAO #### [address] [place], [place] [phone] Activity Therapy Specialist: Hayden Cartagena MD Glucose Ql (U) Negative Normal NEG [facility] Comment on above: Performed By: #### U AX, UMICAO #### [address] [place], [place] [id number] Activity Therapy Specialist: Hayden Cartagena MD Ketones Ql (U) Negative Normal NEG [facility] Comment on above: Performed By: #### U AX, UMICAO #### [address] [place], [place] [phone] Activity Therapy Specialist: Hayden Cartagena MD Leukocyte esterase Test strip Ql (U) Negative Normal NEG [facility] Comment on above: Performed By: #### U AX, UMICAO #### [address] [place], [place] [phone] Activity Therapy Specialist: Hayden Cartagena MD Nitrite,Ur Negative Normal NEG [facility] Comment on above: Performed By: #### U AX, UMICAO #### [address] [place] [address] Activity Therapy Specialist: Hayden Cartagena MD PH,Ur 6.0 Normal 5.0-9.0 [facility] Comment on above: Performed By: #### U AX, UMICAO #### [facility] [address] [place] [address] [place], [place] [phone] Activity Therapy Specialist: Hayden Cartagena MD Protein Ql (U) Negative Normal NEG [facility] Comment on above: Performed By: #### U AX, UMICAO #### [facility] [address] [place], [place] [phone] Activity Therapy Specialist: Hayden Cartagena MD Spec. [place],Ur 1.010 Normal 1.010-1.020 [facility] Comment on above: Performed By: #### U AX, UMICAO #### [address] [place], [place] 9368883 Activity Therapy Specialist: Hayden Cartagena MD Urine RBC's None Normal 0-2 [facility] Comment on above: Performed By: #### U AX, UMICAO #### [facility] [address] [place] [address] [place], [place] [phone] Activity Therapy Specialist: Hayden Cartagena MD Urine WBC's None Normal 0-5 [facility] Comment on above: Performed By: #### U AX, UMICAO #### [facility] [address] [place] [address] [place], [place] [phone] Activity Therapy Specialist: Hayden Cartagena MD Urobilinogen,Ur Normal Normal 0.0-1.0 [facility] Comment on above: Performed By: #### U AX, UMICAO #### [address] [place], [place] [phone] Activity Therapy Specialist: Hayden Cartagena MD Cult,Urineon 05-03-2023 Cult,Urine Specimen [...] Tobramycin <=1 SUSCEPTIBLE Trimethoprim/Sulfa <=20 SUSCEPTIBLE Susceptible [facility] Comment on above: Performed By: #### U RC #### [facility] [address] [place], [place] [id number] Activity Therapy Specialist: Claude Gonzalez MD [facility] [address] [place] [address] Activity Therapy Specialist: Hayden Cartagena MD HIV Ag/Abon 05-02-2023 HIV Ag/Ab Non-Reactive Normal [facility] Comment on above: Result Comment: No l aboratory evidence of HIV infection. If acute HIV infection is suspected, consider testing for HIV-1 RNA. Performed By: #### U AX, UMICAO #### [facility] [address] [place] [address] Activity Therapy Specialist: Hayden Cartagena MD T.pallidum Ab Screenon 05-01 T.pallidum Ab Screen Non-Reactive Normal NR [facility] Comment on above: Result Comment: T. pallidum antibodies are not detected. There is no serological evidence of infection with T. pallidum (early primary syphilis cannot be excluded). Retest in 2-4 weeks if syphilis is clinically suspect. Performed By: #### U AX, UMICAO #### [facility] [address] [place] [address] Activity Therapy Specialist: Hayden Cartagena MD CBC with Auto Differentialon 05-01-2023 Basophils (Bld) [#/Vol] 0.03 10*3/uL [facility] Basophils/100 WBC (Bld) 0 % 0 - 2 % B [facility] Eosinophils (Bld) [#/Vol] [facility] Eosinophils/100 WBC (Bld) 0 % Low 1 - 4 % [facility] Erythrocyte distribution width (RBC) [Ratio] 12.2 % 11.8 - 14.4 % [facility] Hematocrit (Bld) [Volume fraction] 36.2 % Low 36.3 - 47.1 % [facility] Hemoglobin (Bld) [Mass/Vol] 12.1 g/dL 11.9 - 15.1 g/dL [facility] Immature granulocytes (Bld) [#/Vol] [facility] Immature granulocytes/100 WBC (Bld) 0 % 0 [facility] Interpretation and review of laboratory results Abnormal [facility] Lymphocytes/100 WBC (Bld) 19 % Low 24 - 43 % [facility] Lymphocytes/100 WBC (Bld) 1.62 % [facility] MCH (RBC) [Entitic mass] 32.1 pg 25.2 - 33.5 pg [facility] MCHC (RBC) [Mass/Vol] 33.4 g/dL 28.4 - 34.8 g/dL [facility] MCV (RBC) [Entitic vol] 96.0 fL 82.6 - 102.9 fL [facility] Monocytes/100 WBC (Bld) 6 % 3 - 12 % [facility] Monocytes/100 WBC (Bld) 0.51 % [facility] Neutrophils/100 WBC (Bld) 75 % High 36 - 65 % [facility] Nucleated RBC/100 WBC (Bld) [Ratio] 0.0 % 0.0 per 100 WBC [facility] Platelet mean volume (Bld) [Entitic vol] 10.3 fL 8.1 - 13.5 fL [facility] Platelets (Bld) [#/Vol] 201 10*3/uL [facility] RBC (Bld) [#/Vol] 3.77 10*6/uL Low 3.95 - 5.1 1 m/uL [facility] Segmented neutrophils/100 WBC (Bld) 6.24 % [facility] WBC other (Bld) [#/Vol] 8.4 [facility] CBC with Diffon 05-01-2023 Abs. Basophil 0.03 k/uL Normal 0.00-0.20 [facility] Comment on above: Performed By: #### A HCV, HBS, LISA, GLYHGB, HIVCMB, TREP #### [address] [address] Activity Therapy Specialist: Claude Gonzalez MD #### CDP #### [address] [place] [phone] Activity Therapy Specialist: Hayden Cartagena MD Abs. Eosinophil <0.03 Normal 0.00-0.44 [facility] Comment on above: Performed By: #### A HCV, HBS, LISA, GLYHGB, HIVCMB, TREP #### [address] [address] Activity Therapy Specialist: Claude Gonzalez MD #### CDP #### [facility] [address] [place] [address] [place] [phone] Activity Therapy Specialist: Hayden Cartagena MD Abs.Imm.Granulocyte <0.03 Normal 0.00-0.30 [facility] Comment on above: Performed By: #### A HCV, HBS, LISA, GLYHGB, HIVCMB, TREP #### [address] [address] Activity Therapy Specialist: Claude Gonzalez MD #### CDP #### [facility] [address] [place] [address] [place] [phone] Activity Therapy Specialist: Hayden Cartagena MD Abs.Neutrophil (Seg) 6.24 k/uL Normal 1.50-8.10 [facility] Comment on above: Performed By: #### A HCV, HBS, LISA, GLYHGB, HIVCMB, TREP #### [address] [address] Activity Therapy Specialist: Claude Gonzalez MD #### CDP #### [facility] [address] [place] [address] [place] [address] Activity Therapy Specialist: Hayden Cartagena MD Basophils/100 WBC (Bld) 0 % Normal 0-2 [facility] Comment on above: Performed By: #### A HCV, HBS, LISA, GLYHGB, HIVCMB, TREP #### [address] [phone] Activity Therapy Specialist: Claude Gonzalez MD #### CDP #### [address] [place] [phone] Activity Therapy Specialist: Hayden Cartagena MD Eosinophils/100 WBC (Bld) 0 % Low 1-4 [facility] Comment on above: Performed By: #### A HCV, HBS, LISA, GLYHGB, HIVCMB, TREP #### [address] [address] Activity Therapy Specialist: Claude Gonzalez MD #### CDP #### [address] [place] [phone] Activity Therapy Specialist: Hayden Cartagena MD Erythrocyte distribution width (RBC) [Ratio] 12.2 % Normal 11.8-14.4 [facility] Comment on above: Performed By: #### A HCV, HBS, LISA, GLYHGB, HIVCMB, TREP #### [address] [phone] Activity Therapy Specialist: Claude Gonzalez MD #### CDP #### [facility] [address] [place] [address] Dr. [place] [phone] Activity Therapy Specialist: Hayden Cartagena MD Hematocrit (Bld) [Volume fraction] 36.2 % Low 36.3-47.1 [facility] Comment on above: Performed By: #### A HCV, HBS, LISA, GLYHGB, HIVCMB, TREP #### [address] [address] Activity Therapy Specialist: Claude Gonzalez MD #### CDP #### [address] [place] [phone] Activity Therapy Specialist: Hayden Cartagena MD Hemoglobin (Bld) [Mass/Vol] 12.1 g/dL Normal 11.9-15.1 [facility] Comment on above: Performed By: #### A HCV, HBS, LISA, GLYHGB, HIVCMB, TREP #### [address] [address] Activity Therapy Specialist: Claude Gonzalez MD #### CDP #### [address] [place] [phone] Activity Therapy Specialist: Hayden Cartagena MD Immature granulocytes/100 WBC (Bld) 0 % Normal 0 [facility] Comment on above: Performed By: #### A HCV, HBS, LISA, GLYHGB, HIVCMB, TREP #### [address] [address] Activity Therapy Specialist: Claude Gonzalez MD #### CDP #### [address] [place] [phone] Activity Therapy Specialist: Hayden Cartagena MD Lymphocytes (Bld) [#/Vol] 1.62 10*3/uL Normal 1.10-3.70 [facility] Comment on above: Performed By: #### A HCV, HBS, LISA, GLYHGB, HIVCMB, TREP #### [address] [address] Activity Therapy Specialist: Claude Gonzalez MD #### CDP #### [facility] [address] [place] [address] [place]. [place], [place] [phone] Activity Therapy Specialist: Hayden Cartagena MD Lymphocytes/100 WBC (Bld) 19 % Low 24-43 [facility] Comment on above: Performed By: #### A HCV, HBS, LISA, GLYHGB, HIVCMB, TREP #### [address] [address] Activity Therapy Specialist: Claude Gonzalez MD #### CDP #### [address] [place] [phone] Activity Therapy Specialist: Hayden Cartagena MD MCH (RBC) [Entitic mass] 32.1 pg Normal 25.2-33.5 [facility] Comment on above: Performed By: #### A HCV, HBS, LISA, GLYHGB, HIVCMB, TREP #### [address] [address] Activity Therapy Specialist: Claude Gonzalez MD #### CDP #### [address] [place] [phone] Activity Therapy Specialist: Hayden Cartagena MD MCHC (RBC) [Mass/Vol] 33.4 g/dL Normal 28.4-34.8 [facility] Comment on above: Performed By: #### A HCV, HBS, LISA, GLYHGB, HIVCMB, TREP #### [address] [address] Activity Therapy Specialist: Claude Gonzalez MD #### CDP #### [address] [place] [phone] Activity Therapy Specialist: Hayden Cartagena MD MCV (RBC) [Entitic vol] 96.0 fL Normal 82.6-102.9 M [facility] Comment on above: Performed By: #### A HCV, HBS, LISA, GLYHGB, HIVCMB, TREP #### [address] [phone] Activity Therapy Specialist: Claude Gonzalez MD #### CDP #### [address] [place], [place] 9241883 Activity Therapy Specialist: Hayden Cartagena MD Monocytes (Bld) [#/Vol] 0.51 10*3/uL Normal 0.10-1.20 [facility] Comment on above: Performed By: #### A HCV, HBS, LISA, GLYHGB, HIVCMB, TREP #### [address] [address] Activity Therapy Specialist: Claude Gonzalez MD #### CDP #### [facility] [address] [place] [address] Dr. [place], [place] 2251083 Activity Therapy Specialist: Hayden Cartagena MD Monocytes/100 WBC (Bld) 6 % Normal 3-12 M [facility] Comment on above: Performed By: #### A HCV, HBS, LISA, GLYHGB, HIVCMB, TREP #### [address] [address] Activity Therapy Specialist: Claude Gonzalez MD #### CDP #### [facility] [address] [place] [address] [place] [phone] Activity Therapy Specialist: Hayden Cartagena MD Neutrophil (Seg) 75 % High 36-65 [facility] Comment on above: Performed By: #### A HCV, HBS, LISA, GLYHGB, HIVCMB, TREP #### [address] [address] Activity Therapy Specialist: Claude Gonzalez MD #### CDP #### [facility] [address] [place] [address] [place], [place] [phone] Activity Therapy Specialist: Hayden Cartagena MD NRBC Automated 0.0 per 100 WBC Normal 0.0 [facility] Comment on above: Performed By: #### A HCV, HBS, LISA, GLYHGB, HIVCMB, TREP #### [address] [address] Activity Therapy Specialist: Claude Gonzalez MD #### CDP #### [facility] [address] [place] [address] Dr. [place], [place] [phone] Activity Therapy Specialist: Hayden Cartagena MD Platelet mean volume (Bld) [Entitic vol] 10.3 fL Normal 8.1-13.5 [facility] Comment on above: Performed By: #### A HCV, HBS, LISA, GLYHGB, HIVCMB, TREP #### [address] [address] Activity Therapy Specialist: Claude Gonzalez MD #### CDP #### [address] [place] [phone] Activity Therapy Specialist: Hayden Cartagena MD Platelets (Bld) [#/Vol] 201 10*3/uL Normal 138-453 [facility] Comment on above: Performed By: #### A HCV, HBS, LISA, GLYHGB, HIVCMB, TREP #### [address] [address] Activity Therapy Specialist: Claude Gonzalez MD #### CDP #### [address] [place] [phone] Activity Therapy Specialist: Hayden Cartagena MD RBC (Bld) [#/Vol] 3.77 10*6/uL Low 3.95-5.11 [facility] Comment on above: Performed By: #### A HCV, HBS, LISA, GLYHGB, HIVCMB, TREP #### [address] [address] Activity Therapy Specialist: Claude Gonzalez MD #### CDP #### [address] [place], [place] 7375783 Activity Therapy Specialist: Hayden Cartagena MD WBC (Bld) [#/Vol] 8.4 10*3/uL Normal 3.5-11.3 [facility] Comment on above: Performed By: #### A HCV, HBS, LISA, GLYHGB, HIVCMB, TREP #### [place] [address]92 [place] [address] Activity Therapy Specialist: Claude Gonzalez MD #### CDP #### [address] [place], [place] 9130183 Activity Therapy Specialist: Hayden Cartagena MD Hemoglobin A1Con 05-01-2023 Glucose [Mass/Vol] 85 mg/dL Normal [facility] Comment on above: Result Comment: The ADA and AACC recommend providing the estimated average glucose result to permit better patient understanding of their HBA1c result. Performed By: #### A HCV, HBS, LISA, GLYHGB, HIVCMB, TREP #### [address] [address] Activity Therapy Specialist: Claude Gonzalez MD #### CDP #### [address] [place], [place] [phone] Activity Therapy Specialist: Hayden Cartagena MD HbA1c (Bld) [Mass fraction] 4.6 % Normal 4.0-6.0 [facility] Comment on above: Performed By: #### A HCV, HBS, LISA, GLYHGB, HIVCMB, TREP #### [place] [address] [place] [address] Activity Therapy Specialist: Claude Gonzalez MD #### CDP #### [address] [place], [place] 7209083 Activity Therapy Specialist: Hayden Cartagena MD Average glucose Estimated from glycated hemoglobin (Bld) [Mass/Vol] 85 mg/dL [facility] Comment on above: The ADA and AACC rec ommend providing the estimated average glucose result to permit better patient understanding of their HBA1c result. HbA1c (Bld) [Mass fraction] 4.6 % 4.0 - 6.0 % [facility] Hep B Surf Agon 05-01-2023 Hep B Surf Ag Non-Reactive Normal NR [facility] Comment on above: Performed By: #### A HCV, HBS, LISA, GLYHGB, HIVCMB, TREP #### [place] [address]33[address] [place], [place] [id number] Activity Therapy Specialist: Claude Gonzalez MD #### CDP #### [facility] [address] [place] [address] [place] [address] Activity Therapy Specialist: Hayden Cartagena MD Hep C Abon 05-01-2023 Hep C Ab Non-Reactive Normal [facility] Comment on above: Result Comment: The hepatitis [...] HCV, HBS, LISA, GLYHGB, HIVCMB, TREP #### [place] [address] [place], [place] 3838008 Activity Therapy Specialist: Claude Gonzalez MD #### CDP #### [address] [place] [address] Activity Therapy Specialist: Hayden Cartagena MD Hepatitis B Surface Antigeno n 05-01-2023 HBV surface Ag IA Ql Non-Reactive NONREACTIVE B [facility] Hepatitis C Antibodyon 04-30 HCV Ab IA Ql Non-Reactive NONREACTIVE [facility] Comment on above: The hepatitis C [...] RNA by PCR. No Panel Informationon 04-30 [facility] Rubella Ab, IgGon 05-01-2023 Rubella Ab, IgG >500.0 Normal [facility] Comment on above: Result Comment: REFERENCE RANGE: <5.0 NON-REACTIVE (non-immune) 5.0 TO 9.9 EQUIVOCAL >=10.0 REACTIVE (immune) Performed By: #### A HCV, HBS, LISA, GLYHGB, HIVCMB, TREP #### [facility] [address] [place], [place] [phone] Activity Therapy Specialist: Claude Gonzalez MD #### CDP #### [address] [place] [address] Activity Therapy Specialist: Hayden Cartagena MD Rubella antibody, IgGon Rubella virus IgG IA Ql IU/mL [facility] Comment on above: REFERENCE RANGE: <5.0 NON-REACTIVE (non-immune) 5.0 TO 9.9 EQUIVOCAL >=10.0 REACTIVE (immune) [facility] TYPE AND SCREENon 05-01-2023 ABO and Rh group Nom (Bld) Blood group O Rh(D) negative [facility] Blood Bank Sample Expiration 05/04/2023,2359 [facility] Blood group antibodies identified Nom Negative [facility] Type + Screenon 05-01-2023 Type + Screen Sample Expiration 05/04/2023,2359 ABO/Rh(D) O NEGATIVE Antibody Screen NEGATIVE Normal [facility] Comment on above: Performed By: #### T YS #### [address] [place] [address] Activity Therapy Specialist: Hayden Cartagena MD Cult,Urineon 08-05-2022 Cult,Urine Specimen Description .VOIDED URINE Culture ESCHERICHIA COLI >[id number] CFU/ML Report Status FINAL 08/04/2022 SUSCEPTIBILITY Organism [...] Tobramycin <=1 SUSCEPTIBLE Trimethoprim/Sulfa <=20 SUSCEPTIBLE Susceptible [facility] Comment on above: Performed By: #### U RAFAEL [place] #### [facility] [address] [place] [address] Activity Therapy Specialist: Hayden Cartagena MD CBC with Auto Differentialon 08-03-2022 Basophils (Bld) [#/Vol] 0.04 10*3/uL [facility] Basophils/100 WBC (Bld) 0 % 0 - 2 % [facility] Eosinophils (Bld) [#/Vol] [facility] Eosinophils/100 WBC (Bld) 0 % Low 1 - 4 % [facility] Erythrocyte distribution width (RBC) [Ratio] 12.2 % 11.8 - 14.4 % [facility] Hematocrit (Bld) [Volume fraction] 39.4 % 36.3 - 47.1 % [facility] Hemoglobin (Bld) [Mass/Vol] 13.2 g/dL 11.9 - 15.1 g/dL [facility] Immature granulocytes (Bld) [#/Vol] [facility] Immature granulocytes/100 WBC (Bld) 0 % 0 [facility] Interpretation and review of laboratory results Abnormal [facility] Lymphocytes/100 WBC (Bld) 17 % Low 24 - 43 % [facility] Lymphocytes/100 WBC (Bld) 1.86 % [facility] MCH (RBC) [Entitic mass] 32.1 pg 25.2 - 33.5 pg [facility] MCHC (RBC) [Mass/Vol] 33.5 g/dL 28.4 - 34.8 g/dL [facility] MCV (RBC) [Entitic vol] 95.9 fL 82.6 - 102.9 fL [facility] Monocytes/100 WBC (Bld) 4 % 3 - 12 % B [facility] Monocytes/100 WBC (Bld) 0.42 % [facility] Neutrophils/100 WBC (Bld) 79 % High 36 - 65 % [facility] NRBC Automated 0.0 0.0 per 100 WBC [facility] Platelet mean volume (Bld) [Entitic vol] 10.5 fL 8.1 - 13.5 fL [facility] Platelets (Bld) [#/Vol] 213 10*3/uL [facility] RBC (Bld) [#/Vol] 4.11 10*6/uL 3.95 - 5.1 1 m/uL [facility] Segmented neutrophils/100 WBC (Bld) 8.49 % High [facility] WBC other (Bld) [#/Vol] 10.8 [facility] CBC with Diffon 08-03-2022 Abs. Basophil 0.04 k/uL Normal 0.00-0.20 [facility] Comment on above: Performed By: #### U RAFAEL [place] #### [facility] [address] [place] [address] Dr[place] [phone] Activity Therapy Specialist: Hayden Cartagena MD Abs. Eosinophil <0.03 Normal 0.00-0.44 [facility] Comment on above: Performed By: #### U RAFAEL [place] #### [address] [place] [phone] Activity Therapy Specialist: Hayden Cartagena MD Abs.Imm.Granulocyte <0.03 Normal 0.00-0.30 [facility] Comment on above: Performed By: #### U RAFAEL [place] #### [facility] [address] [place] [address] [place] [address] Activity Therapy Specialist: Hayden Cartagena MD Abs.Neutrophil (Seg) 8.49 k/uL High 1.50-8.10 [facility] Comment on above: Performed By: #### U CODY NEWMANO #### [address] [place] [address] Activity Therapy Specialist: Hayden Cartagena MD Basophils/100 WBC (Bld) 0 % Normal 0-2 M [facility] Comment on above: Performed By: #### U AX, UMICAO #### [facility] [address] [place], [place] [id number] Activity Therapy Specialist: Hayden Cartagena MD Eosinophils/100 WBC (Bld) 0 % Low 1-4 [facility] Comment on above: Performed By: #### U AX, UMICAO #### [address] [place], [facility] Activity Therapy Specialist: Hayden Cartagena MD Erythrocyte distribution width (RBC) [Ratio] 12.2 % Normal 11.8-14.4 [facility] Comment on above: Performed By: #### U AX, UMICAO #### [address] [place] [id number] Activity Therapy Specialist: Hayden Cartagena MD Hematocrit (Bld) [Volume fraction] 39.4 % Normal 36.3-47.1 [facility] Comment on above: Performed By: #### U AX, UMICAO #### [address] [place], [facility] Activity Therapy Specialist: Hayden Cartagena MD Hemoglobin (Bld) [Mass/Vol] 13.2 g/dL Normal 11.9-15.1 [facility] Comment on above: Performed By: #### U AX, UMICAO #### [address] [place], [place] [address] Activity Therapy Specialist: Hayden Cartagena MD Immature granulocytes/100 WBC (Bld) 0 % Normal 0 [facility] Comment on above: Performed By: #### U AX, UMICAO #### [address] [place] [id number] Activity Therapy Specialist: Hayden Cartagena MD Lymphocytes (Bld) [#/Vol] 1.86 10*3/uL Normal 1.10-3.70 [facility] Comment on above: Performed By: #### U AX, UMICAO #### [facility] [address] [place], [place] [phone] Activity Therapy Specialist: Hayden Cartagena MD Lymphocytes/100 WBC (Bld) 17 % Low 24-43 [facility] Comment on above: Performed By: #### U AX, UMICAO #### [address] [place], [place] [id number] Activity Therapy Specialist: Hayden Cartagena MD MCH (RBC) [Entitic mass] 32.1 pg Normal 25.2-33.5 [facility] Comment on above: Performed By: #### U AX, UMICAO #### [address] [place], [place] [phone] Activity Therapy Specialist: Hayden Cartagena MD MCHC (RBC) [Mass/Vol] 33.5 g/dL Normal 28.4-34.8 [facility] Comment on above: Performed By: #### U AX, UMICAO #### [address] [place], [place] [phone] Activity Therapy Specialist: Hayden Cartagena MD MCV (RBC) [Entitic vol] 95.9 fL Normal 82.6-102.9 [facility] Comment on above: Performed By: #### U AX, UMICAO #### [address] [place] [address] Activity Therapy Specialist: Hayden Cartagena MD Monocytes (Bld) [#/Vol] 0.42 10*3/uL Normal 0.10-1.20 [facility] Comment on above: Performed By: #### U AX, UMICAO #### [address] [place] [address] Activity Therapy Specialist: Hayden Cartagena MD Monocytes/100 WBC (Bld) 4 % Normal 3-12 M [facility] Comment on above: Performed By: #### U AX, UMICAO #### [address] [place], [place] 0995783 Activity Therapy Specialist: Hayden Cartagena MD Neutrophil (Seg) 79 % High 36-65 [facility] Comment on above: Performed By: #### U AX, UMICAO #### [facility] [address] [place], [place] 3334783 Activity Therapy Specialist: Hayden Cartagena MD NRBC Automated 0.0 per 100 WBC Normal 0.0 [facility] Comment on above: Performed By: #### U AX, UMICAO #### [facility] [address] [place] [address] Activity Therapy Specialist: Hayden Cartagena MD Platelet mean volume (Bld) [Entitic vol] 10.5 fL Normal 8.1-13.5 [facility] Comment on above: Performed By: #### U AX, UMICAO #### [facility] [address] [place], [place] [phone] Activity Therapy Specialist: Hayden Cartagena MD Platelets (Bld) [#/Vol] 213 10*3/uL Normal 138-453 [facility] Comment on above: Performed By: #### U AX, UMICAO #### [facility] [address] [place], [place] [phone] Activity Therapy Specialist: Hayden Cartagena MD RBC (Bld) [#/Vol] 4.11 10*6/uL Normal 3.95-5.11 [facility] Comment on above: Performed By: #### U AX, UMICAO #### [facility] [address] [place], [place] [phone] Activity Therapy Specialist: Hayden Cartagena MD WBC (Bld) [#/Vol] 10.8 10*3/uL Normal 3.5-11.3 [facility] Comment on above: Performed By: #### U AX, UMICAO #### [facility] [address] [place], [place] [id number] Activity Therapy Specialist: Hayden Cartagena MD [facility] 08-03-2022 Albumin [Mass/Vol] 4.6 g/dL 3.5 - 5.2 g/dL [facility] Albumin/Globulin [Mass ratio] 1.5 {ratio} 1.0 - 2.5 [facility] ALP [Catalytic activity/Vol] 79 U/L 35 - 104 U/L [facility] ALT [Catalytic activity/Vol] 9 U/L 5 - 33 U/L [facility] Anion gap [Moles/Vol] 11 mmol/L 9 - 17 mmol/L [facility] AST [Catalytic activity/Vol] 13 U/L NINF - 32 U/L [facility] Bilirubin [Mass/Vol] 1.1 mg/dL 0.3 - 1 .2 mg/dL [facility] Calcium [Mass/Vol] 10.0 mg/dL 8.6 - 10. 4 mg/dL [facility] Chloride [Moles/Vol] 104 mmol/L 98 - 10 7 mmol/L [facility] CO2 [Moles/Vol] 26 mmol/L 20 - 31 mmol/L [facility] Creatinine [Mass/Vol] 0.68 mg/dL 0.50 - 0.90 mg/dL [facility] GFR/1.73 sq M.predicted MDRD (S/P/Bld) [Vol rate/Area] - PINF [facility] Comment on above: These results are not [...] [Mass/Vol] 90 mg/dL 70 - 99 mg/dL [facility] Interpretation and review of laboratory results Abnormal [facility] Potassium [Moles/Vol] 3.4 mmol/L Low 3.7 - 5.3 mmol/L [facility] Protein [Mass/Vol] 7.7 g/dL 6.4 - 8.3 g/dL [facility] Sodium [Moles/Vol] 141 mmol/L 135 - 144 mmol/L [facility] Urea nitrogen [Mass/Vol] 6 mg/dL 6 - 20 mg/dL [facility] Urea nitrogen/Creatinine [Mass ratio] 9 mg/mg 9 - [address] [facility] [address] ABDOMEN PELVIS WO CONTRAS Ton 08-03-2022 [...] Cody Gregg MD 08/03/22 Final result Normal [facility] CT ABDOMEN PELVIS WO CONTRAS T Additional Contrast? Noneon 08-03-2022 1. No acute infective or inflammatory process. 2. No urinary tract calculi. 3. No bowel obstruction. [facility] EXAMINATION: CT OF THE ABDOMEN [...] superficial soft tissues show no acute process. [facility] Cody Gregg MD - 08/03/2022 EXAMINATION: CT OF THE [...] urinary tract calculi. 3. No bowel obstruction. [employer] [facility] Work Phone: Radiology Study observation (narrative) [employer] Phone: CT ABDOMEN PELVIS WO CONTRAS T Additional Contrast? NoneOrdered By: Cody Gregg on 08-03-2022 [facility] [employer] Phone: Comp Metabolic Profon 2022 Albumin [Mass/Vol] 4.6 g/dL Normal 3.5-5.2 [facility] Comment on above: Performed By: #### U RAFAEL NEWMAN #### [facility] [address] [place] [address] Activity Therapy Specialist: Hayden Cartagena MD Albumin/Glob Ratio 1.5 Normal 1.0-2.5 [facility] Comment on above: Performed By: #### U CODY NEWMANO #### [facility] [address] [place] [address] Activity Therapy Specialist: Hayden Cartagena MD Alkaline Phos 79 U/L Normal 35-104 [facility] Comment on above: Performed By: #### U AXPITOICAO #### [facility] [address] [place] [address] Activity Therapy Specialist: Hayden Cartagena MD ALT [Catalytic activity/Vol] 9 U/L Normal 5-33 [facility] Comment on above: Performed By: #### U AX, UMICAO #### [facility] [address] [place], [place] [phone] Activity Therapy Specialist: Hayden Cartagena MD Anion gap [Moles/Vol] 11 mmol/L Normal 9-17 [facility] Comment on above: Performed By: #### U AX, UMICAO #### [facility] [address] [place], [place] 4575783 Activity Therapy Specialist: Hayden Cartagena MD AST [Catalytic activity/Vol] 13 U/L Normal <32 [facility] Comment on above: Performed By: #### U AXPITOICAO #### [facility] [address] [place], [place] 8[address]83 Activity Therapy Specialist: Hayden Cartagena MD Bilirubin [Mass/Vol] 1.1 mg/dL Normal 0.3-1.2 [facility] Comment on above: Performed By: #### U AXPITOICAO #### [address] [place], [place] 6758183 Activity Therapy Specialist: Hayden Cartagena MD BUN/CRE Ratio 9 Normal 9-20 [facility] Comment on above: Performed By: #### U AX UMICAO #### [facility] [address] [place], [place] 2228083 Activity Therapy Specialist: Hayden Cartagena MD Calcium [Mass/Vol] 10.0 mg/dL Normal 8.6-10.4 [facility] Comment on above: Performed By: #### U AXPITOICAO #### [facility] [address] [place] [address] Activity Therapy Specialist: Hayden Cartagena MD Chloride [Moles/Vol] 104 mmol/L Normal 98-107 [facility] Comment on above: Performed By: #### U AX UMICAO #### [facility] [address] [place] [address] Activity Therapy Specialist: Hayden Cartagena MD CO2 [Moles/Vol] 26 mmol/L Normal 20-31 [facility] Comment on above: Performed By: #### U AX, UMICAO #### [facility] [address] [place] [address] Activity Therapy Specialist: Hayden Cartagena MD Creatinine [Mass/Vol] 0.68 mg/dL Normal 0.50-0.90 [facility] Comment on above: Performed By: #### U AX UMICAO #### [facility] [address] [place] [address] Activity Therapy Specialist: Hayden Cartagena MD GFR/1.73 sq M.predicted among non-blacks MDRD (S/P/Bld) [Vol rate/Area] mL/min/{1.73_m2} Normal >60 [facility] Comment on above: Result Comment: These results [...] renal tubular secretion. Performed By: #### U PITO NEWMANICAO #### [facility] [address] [place] [address] [place] [address] Activity Therapy Specialist: Hayden Cartagena MD Glucose [Mass/Vol] 90 mg/dL Normal 70-99 [facility] Comment on above: Performed By: #### U AXPITOICAO #### [facility] [address] [place] [address] Activity Therapy Specialist: Hayden Cartagena MD Potassium [Moles/Vol] 3.4 mmol/L Low 3.7-5.3 [facility] Comment on above: Performed By: #### U AX UMICAO #### [facility] [address] [place] [address] Activity Therapy Specialist: Hayden Cartagena MD Protein [Mass/Vol] 7.7 g/dL Normal 6.4-8.3 [facility] Comment on above: Performed By: #### U AX, UMICAO #### [facility] [address] [place] [address] Activity Therapy Specialist: Hayden Cartagena MD Sodium [Moles/Vol] 141 mmol/L Normal 135-144 [facility] Comment on above: Performed By: #### U AX, UMICAO #### [facility] [address] [place] [phone] Activity Therapy Specialist: Hayden Cartagena MD Urea nitrogen [Mass/Vol] 6 mg/dL Normal 6-20 [facility] Comment on above: Performed By: #### U AX, UMICAO #### [facility] [address] [place] [address] Dr[address] [place], [facility] Activity Therapy Specialist: Hayden Cartagena MD HCG, Quanton 08-03-2022 HCG, Quant <1 Normal <5 [facility] Comment on above: Result Comment: Non-preg premeno <=5 Postmeno <=8 Male <=3 If HCG results do not concur with clinical observations, additional testing to confirm results is recommended. Performed By: #### U AX, UMICAO #### [facility] [address] [place], [facility] Activity Therapy Specialist: Hayden Cartagena MD Microscopic Urinalysison Bacteria LM Ql (Urine sed) 4+ Abnormal None [facility] Epithelial cells LM.HPF (Urine sed) [#/Area] 10 TO 20 [facility] Interpretation and review of laboratory results Abnormal [facility] RBC LM.HPF (Urine sed) [#/Area] 10 TO 20 [facility] WBC LM.HPF (Urine sed) [#/Area] 20 TO 50 [facility] UA w/Reflex Cultureon 2022 Bilirubin, SemiQt,Ur Negative Normal NEG [facility] Comment on above: Performed By: #### U AX, UMICAO #### [facility] [address] [place], [place] [phone] Activity Therapy Specialist: Hayden Cartagena MD Blood, Urine 3+ Abnormal NEG [facility] Comment on above: Performed By: #### U AX, UMICAO #### [facility] [address] [place] [address] Activity Therapy Specialist: Hayden Cartagena MD Clarity (U) Cloudy Abnormal CLEAR [facility] Comment on above: Performed By: #### U AX, UMICAO #### [facility] [address] [place], [place] 5069283 Activity Therapy Specialist: Hayden Cartagena MD Color (U) Yellow Normal YEL [facility] Comment on above: Performed By: #### U AX, UMICAO #### [facility] [address] [place], [place] 35[address]83 Activity Therapy Specialist: Hayden Cartagena MD Glucose Ql (U) Negative Normal NEG [facility] Comment on above: Performed By: #### U AX, UMICAO #### [facility] [address] [place], [place] 2099383 Activity Therapy Specialist: Hayden Cartagena MD Ketones Ql (U) Negative Normal NEG [facility] Comment on above: Performed By: #### U AX, UMICAO #### [facility] [address] [place], [place] 2969783 Activity Therapy Specialist: Hayden Cartagena MD Leukocyte esterase Test strip Ql (U) SMALL Abnormal NEG [facility] Comment on above: Performed By: #### U AX, UMICAO #### [facility] [address] [place], [place] [address] Activity Therapy Specialist: Hayden Cartagena MD Nitrite,Ur Positive Abnormal NEG [facility] Comment on above: Performed By: #### U AX, UMICAO #### [facility] [address] [place] [address] [place], [place] 0772483 Activity Therapy Specialist: Hayden Cartagena MD PH,Ur 6.0 Normal 5.0-9.0 [facility] Comment on above: Performed By: #### U AX, UMICAO #### [facility] [address] [place] [address] [place] [address] Activity Therapy Specialist: Hayden Cartagena MD Protein Ql (U) 2+ Abnormal NEG [facility] Comment on above: Performed By: #### U AX, UMICAO #### [address] [place], [place] [phone] Activity Therapy Specialist: Hayden Cartagena MD Spec. [place],Ur 1.025 High 1.010-1.020 [facility] Comment on above: Performed By: #### U AX, UMICAO #### [facility] [address] [place] [address] [place], [place] [phone] Activity Therapy Specialist: Hayden Cartagena MD Urobilinogen,Ur Normal Normal NORM [facility] Comment on above: Performed By: #### U AX, UMICAO #### [address] [place], [place] 701[address]83 Activity Therapy Specialist: Hayden Cartagena MD Urinalysis with Reflex to Cu ltureon 08-03-2022 Bilirubin Ql (U) Negative NEGATIVE [facility] Clarity (U) Cloudy Abnormal Clear [facility] Color (U) Yellow Yellow [facility] Glucose Test strip (U) [Mass/Vol] Negative NEGATIVE [facility] Hemoglobin Auto test strip Ql (U) 3+ Abnormal NEGATIVE [facility] Interpretation and review of laboratory results Abnormal [facility] Ketones (U) [Mass/Vol] Negative NEGATIVE [facility] Leukocyte esterase Test strip Ql (U) SMALL Abnormal NEGATIVE [facility] Nitrite Ql (U) Positive Abnormal NEGATIVE [place] [facility] pH (U) 6.0 [pH] 5.0 - 9.0 [facility] Protein (U) [Mass/Vol] 2+ Abnormal NEGATIVE [facility] Specific gravity (U) [Rel density] 1.025 High 1.010 - 1.020 [facility] Urobilinogen Qn (U) Normal Normal [facility] Urinalysis,Microon 3 Bacteria 4+ Abnormal NONE [facility] Comment on above: Performed By: #### U AX, UMICAO #### [facility] [address] [place] [address] Activity Therapy Specialist: Hayden Cartagena MD Epithelial cells LM Ql (Urine sed) 10 TO 20 Normal 0-25 [facility] Comment on above: Performed By: #### U AX, UMICAO #### [facility] [address] [place], [place] [id number] Activity Therapy Specialist: Hayden Cartagena MD Urine RBC's 10 TO 20 Normal 0-2 [facility] Comment on above: Performed By: #### U AX, UMICAO #### [facility] [address] [place] [address] Activity Therapy Specialist: Hayden Cartagena MD Urine WBC's 20 TO 50 Normal 0-5 [facility] Comment on above: Performed By: #### U AX, UMICAO #### [facility] [address] [place] [address] Activity Therapy Specialist: Hayden Cartagena MD hCG, quantitative, on 08-03-2022 hCG Quant NINF [facility] Comment on above: Non-preg premeno <=5 Postmeno <=8 Male <=3 If HCG results do not concur with clinical observations, additional testing to confirm results is recommended. [facility] DUSTIN JASMINA DIGITAL DIAGNOSTIC BILATERALon 06-03-2022 Radiology Study observation (narrative) [facility] Work Phone: No Panel Informationon 06-03 1. Negative bilateral mammogram. 2. No evidence for a discrete abscess or cellulitis in the periareolar right breast, for which clinical follow-up is recommended. BI-RADS 2 BIRADS: BIRADS - CATEGORY 2 Benign Findings. OVERALL ASSESSMENT - BENIGN A letter of notification will be sent to the patient regarding the results. [employer] recommends annual mammograms for women 40 years and older. [facility] EXAMINATION: DIAGNOSTIC DIGITAL BILATERAL BREASTS MAMMOGRAM [...] subcutaneous edema appreciated. No duct dilatation identified. [facility] No Panel InformationOrdered By: Matt Sharma on 06-03-2022 [employer] Phone: US BREAST LIMITED RIGHTon Radiology Study observation (narrative) [employer] Work Phone: CBC with Auto Differentialon 04-24-2022 Absolute Eos # SARWAT [employer] Absolute Immature Granulocyte 0.05 [facility] Absolute Lymph # 0.56 Low [facility] Absolute Garrett # 0.78 [facility] Basophils (Bld) [#/Vol] 0.04 10*3/uL [facility] Basophils/100 WBC (Bld) 0 % 0 - 2 % B ON [facility] Eosinophils/100 WBC (Bld) 0 % Low 1 - 4 % [facility] Hematocrit (Bld) [Volume fraction] 43.7 % 36.3 - 47.1 % [facility] Hemoglobin (Bld) [Mass/Vol] 15.6 g/dL High 11.9 - 15.1 g/dL [facility] Immature granulocytes/100 WBC (Bld) 0 % 0 [facility] Interpretation and review of laboratory results Abnormal [facility] Lymphocytes/100 WBC (Bld) 4 % Low 24 - 43 % [facility] MCH (RBC) [Entitic mass] 33.1 pg 25.2 - 33.5 pg [facility] MCHC (RBC) [Mass/Vol] 35.7 g/dL High 28.4 - 34.8 g/dL [facility] MCV (RBC) [Entitic vol] 92.8 fL 82.6 - 102.9 fL [facility] Monocytes/100 WBC (Bld) 5 % 3 - 12 % B ON [facility] NRBC Automated 0.0 0.0 per 100 WBC [facility] Platelet distribution width (Bld) [Ratio] 12.3 % 11.8 - 14.4 % [facility] Platelet mean volume (Bld) [Entitic vol] 10.5 fL 8.1 - 13.5 fL [facility] Platelets (Bld) [#/Vol] 174 10*3/uL [facility] RBC (Bld) [#/Vol] 4.71 10*6/uL 3.95 - 5.1 1 m/uL [facility] Segmented neutrophils/100 WBC (Bld) 91 % High 36 - 65 % [facility] Segs Absolute 13.82 High [facility] WBC (Bld) [#/Vol] 15.3 10*3/uL High [facility] CMPon 04-24-2022 Albumin [Mass/Vol] 4.8 g/dL 3.5 - 5.2 g/dL [facility] Albumin/Globulin [Mass ratio] 1.6 {ratio} 1.0 - 2.5 [facility] ALP [Catalytic activity/Vol] 87 U/L 35 - 104 U/L [facility] ALT [Catalytic activity/Vol] 19 U/L 5 - 33 U/L [facility] Anion gap [Moles/Vol] 17 mmol/L 9 - 17 mmol/L [facility] AST [Catalytic activity/Vol] 23 U/L NINF - 32 U/L [facility] Bilirubin [Mass/Vol] 1.0 mg/dL 0.3 - 1 .2 mg/dL [facility] Calcium [Mass/Vol] 10.4 mg/dL 8.6 - 10. 4 mg/dL [facility] Chloride [Moles/Vol] 105 mmol/L 98 - 10 7 mmol/L [facility] CO2 [Moles/Vol] 19 mmol/L Low 20 - 31 mmol/L [facility] Creatinine [Mass/Vol] 0.84 mg/dL 0.50 - 0.90 mg/dL [facility] GFR/1.73 sq M.predicted MDRD (S/P/Bld) [Vol rate/Area] - PINF [facility] Comment on above: These results are not [...] 151 mg/dL High 70 - 99 mg/dL [facility] Interpretation and review of laboratory results Abnormal [facility] Potassium [Moles/Vol] 3.9 mmol/L 3.7 - 5.3 mmol/L [facility] Protein [Mass/Vol] 7.8 g/dL 6.4 - 8.3 g/dL [facility] Sodium [Moles/Vol] 141 mmol/L 135 - 144 mmol/L [facility] Urea nitrogen [Mass/Vol] 9 mg/dL 6 - 20 mg/dL [facility] Urea nitrogen/Creatinine (Bld) [Mass ratio] 11 9 - [address] [facility] [address] ABDOMEN PELVIS W IV CONTR AST Additional Contrast? Noneon 04-24-2022 Fluid within the colon is consistent with a diarrheal illness clinically. Otherwise, no acute intra-abdominal or pelvic abnormality [facility] EXAMINATION: CT OF THE ABDOMEN [...] pathologic adenopathy. Bones/Soft Tissues: No acute abnormality [facility] Rogelio Lima MD - 04/24/2022 EXAMINATION: [...] Otherwise, no acute intra-abdominal or pelvic abnormality [facility] [employer] Work Phone: Radiology Study observation (narrative) [facility] Inside Work Phone: CT ABDOMEN PELVIS W IV CONTR AST Additional Contrast? NoneOrdered By: Rogelio Lima on 04-24-2022 [facility] [employer] Work Phone: Lactic Acidon 04-24-2022 Lactate (P samantha) [Moles/Vol] 2.1 mmol/L 0.5 - 2.2 mmol/L [facility] [employer] [facility] [employer] Lipaseon 04-24-2022 Lipase [Catalytic activity/Vol] 24 U/L 13 - 60 U/L [facility] [employer] Microscopic Urinalysison Bacteria, UA 1+ Abnormal None [facility] [employer] Epithelial Cells UA 5 TO 10 [facility] Interpretation and review of laboratory results Abnormal [facility] Mucus, UA 1+ Abnormal None [facility] RBC clumps Auto (Urine sed) [#/Area] None [facility] [employer] WBC, UA 0 TO 2 [facility] No Panel Informationon 04-24 [facility] Urinalysison 04-24-2022 Bilirubin Urine Negative NEGATIVE [facility] Color, UA Yellow Yellow [facility] Glucose Auto test strip (U) [Mass/Vol] Negative NEGATIVE [facility] Interpretation and review of laboratory results Abnormal [facility] Ketones (U) [Mass/Vol] 2+ Abnormal NEGATIVE [facility] Leukocyte esterase Auto test strip Ql (U) Negative NEGATIVE [facility] HOSPITAL Nitrite Auto test strip Ql (U) Negative NEGATIVE [facility] Protein (U) [Mass/Vol] 5.0 - 9.0 [facility]USY [facility] Protein (U) [Mass/Vol] Negative NEGATIVE [facility] Specific [place], UA 1.010 1.010 - 1.020 B ON [facility] Turbidity UA SLIGHTLY CLOUDY Abnormal Clear [facility] Urine Hgb Negative NEGATIVE [facility] Urobilinogen, Urine Normal Normal [facility] , urineon 3 Beta HCG ( test) Ql (U) Negative NEGATIVE [facility] Comment on above: Specimens with hCG l evels near the threshold of the test (25 mIU/mL) may give a negative or indeterminate result. In such cases, another test should be performed with a new specimen in 48-72 hours. If early is suspected clinically in this setting, correlation with quantitative serum b-hCG level is suggested. [facility] has confirmed the use of plasma for this test. This has not been cleared or approved by the U.S. Food and Drug Administration. The FDA has determined that such clearance is not necessary. [facility] Cholesterol [Mass/volume] in Serum or PlasmaOrdered By: Feliberto Faust on 10-27-2021 Cholesterol [Mass/Vol] 102 mg/dL 140-[address] [facility] Comment on above: Chol less than 200 m g/dl low risk Chol 201-239 mg/dl borderline risk Chol 240 mg/dl and greater high risk Cholesterol in LDL Calc [Mas s/Vol]Ordered By: Feliberto Faust on 10-27-2021 Cholesterol in LDL [Mass/Vol] 58 mg/dL 0-100 [facility] Comment on above: LDL ATP III CLASSIFI CATION LDL less than 100 mg/dL Optimal LDL 100-129 mg/dL Near or above optimal LDL 130-159 mg/dL Borderline high LDL 160-189 mg/dL High LDL greater than 189 mg/dL Very high Cholesterol in VLDL Calc [Ma ss/Vol]Ordered By: Feliberto Faust on 10-27-2021 Cholesterol in VLDL [Mass/Vol] 13 mg/dL [facility] ECG 12 lead ECGon 10-27-2021 ECG 12 lead ECG [facility] Main [employer] [address] [place] [id number] Electrocardiograph Report Signed Patient: Bennett Vaughn MR#: [id number] 7 : 1995 Acct:[id number] Age/Sex: 26 / F ADM Date: 10/26/21 Loc: 1S Room: [address] [place] [address] Type: DIS IN Attending Dr: Feliberto Faust [...] : 416 ms Sinus bradycardia with short CT Otherwise normal ECG When compared with ECG of 10-APR-2019 09:44, Vent. rate has decreased BY 29 BPM Confirmed by PAYAM LIVINGSTON DO ([id number]) on 10/27/2021 1:03:16 PM Referred By: Electronically Signed By:PAYAM LIVINGSTON DO Transcribed By: MUS Signed By Payam Livingston DO 10/27 1303 Normal [facility] Lipid Panelon 10-27-2021 Cholesterol [Mass/Vol] 102 mg/dL Low 140-[address] [facility] Comment on above: Result Comment: Chol less than 200 mg/dl low risk Chol 201-239 mg/dl borderline risk Chol 240 mg/dl and greater high risk Performed By: #### L IPID, TSH3 wRFLX, [id number] #### [facility] [address] [place] [address] Cholesterol in HDL [Mass/Vol] 30 mg/dL Low 35-85 [facility] Comment on above: Result Comment: HDL CHOL ATP-III CLASSIFICATION Cardiovascular Risk HDL > or equal to 60 mg/dL LOW HDL < 40 mg/dL HIGH Performed By: #### L IPID, TSH3 wRFLX, [id number] #### [facility] [address] Cholesterol.total/Fanny sterol in HDL [Mass ratio] 3.4 {ratio} Normal <5.0 [facility] Comment on above: Performed By: #### L IPID, TSH3 wRFLX, [id number] #### [address] LDL Cholesterol,Calculated 58 mg/dL Normal 0-100 [facility] Comment on above: Result Comment: LDL ATP III CLASSIFICATION LDL less than 100 mg/dL Optimal LDL 100-129 mg/dL Near or above optimal LDL 130-159 mg/dL Borderline high LDL 160-189 mg/dL High LDL greater than 189 mg/dL Very high Performed By: #### L IPID, TSH3 wRFLX, [id number] #### [address] Triglyceride w/Reflex 68 mg/dL Normal 35-149 [facility] Comment on above: Result Comment: TRIG ATP III CLASSIFICATION TRIG less than 150 mg/dL Normal TRIG 150-199 mg/dL Borderline high TRIG 200-500 mg/dL High TRIG greater than 500 mg/dL Very high Standard traceable to the Center for Disease Conrtrol and Prevention (CDC) test method. Performed By: #### L IPID, TSH3 wRFLX, [id number] #### [facility] [address] [place] [address] VLDL CHOLESTEROL 13 mg/dL Normal [facility] Comment on above: Performed By: #### L IPID, TSH3 wRFLX, [id number] #### [facility] [address] [place] [address] No Panel InformationOrdered By: Feliberto Faust on 08-31-2022 25-Hydroxy Vitamin D Total 36.4 ng/mL 30-100 [facility] Comment on above: VITAMIN D STATUS 25( [...] Cholesterol in HDL [Mass/Vol] 30 mg/dL 35-85 [facility] Comment on above: HDL CHOL ATP-III CLA SSIFICATION Cardiovascular Risk HDL > or equal to 60 mg/dL LOW HDL < 40 mg/dL HIGH Serum or plasma total choles terol/high density lipoprotein (HDL) cholesterol mass ratOrdered By: Feliberto Faust on 10-27-2021 Cholesterol.total/Fanny sterol in HDL [Mass ratio] 3.4 {ratio} <5.0 [facility] TSH DL <= 0.005 mIU/L QnOrde red By: Feliberto Faust on 10-27-2021 TSH Qn 1.28 m[IU]/L 0.45-5.33 [facility] Thyroid Stim Hormone w/Rflxo n 10-27-2021 Thyroid Stim Hormone w/Rflx 1.28 u[iU]/mL Normal 0.45-5.33 [facility] Comment on above: Performed By: #### L IPID, TSH3 wRFLX, [id number] #### [address] Triglyceride [Mass/volume] i n Serum or PlasmaOrdered By: Feliberto Faust on 10-27-2021 Triglyceride [Mass/Vol] 68 mg/dL 35-149 [facility] Comment on above: TRIG ATP III CLASSIF ICATION TRIG less than 150 mg/dL Normal TRIG 150-199 mg/dL Borderline high TRIG 200-500 mg/dL High TRIG greater than 500 mg/dL Very high Standard traceable to the Center for Disease Conrtrol and Prevention (CDC) test method. Vitamin D 25 Hydroxy Totalon 10-27-2021 Vitamin D 25 Hydroxy Total 36.4 ng/mL Normal 30-100 [facility] Comment on above: Result Comment: KELSEY MIN D STATUS 25(OH)VITAMIN D RANGE (ng/mL) Deficient <20 Insufficient 20 to <30 Sufficient 30 to 100 Reference: Kath MF,Ramón NC, Teetee DAVIS, et al. Evaluation,treatment, and prevention of vitamin D deficiency; an Endocrine Society clinical practice guideline. JCEM. 2010; 96(7):1911-30. PERFORMED BY: [place] [address] PATHOLOGIST HR ASSISTANT JAMES MCNAIR M.D. Performed By: #### C BC, ETOH, CMP #### [facility] [address] [place] [address] [place] Albumin [Mass/volume] in Ser um or PlasmaOrdered By: Ed Amaral on 10-26-2021 Albumin [Mass/Vol] 4.0 g/dL 3.2-5.5 [facility] Amphetamine Screen Ql (U)Ord ered By: Ed Amaral on 10-26-2021 Amphetamines Ql (U) Negative Negative [facility] Automated erythrocytes count in urine sediment (number/area)Ordered By: Ed Amaral on 10-26-2021 RBC Auto (Urine sed) [#/Area] 0-1 [HPF] 0-4 [facility] Automated leukocytes count i n urine sediment (number/area)Ordered By: Ed Amaral on 10-26-2021 WBC Auto (Urine sed) [#/Area] 1-2 [HPF] 0-4 [facility] Automated urine color determ inationOrdered By: Ed Amaral on 10-26-2021 Color (U) Yellow Normal Yellow [facility] Comment on above: Order Comment: Name Collection Type:: Clean-Voided Midstream Performed By: #### S OFIANEG, URDS, ADDONUAPLUS, UHCG, COVID-19 FELI #### [facility] [address] [place] [address] [place] Barbiturates [Presence] in U rineOrdered By: Ed Amaral on 10-26-2021 Barbiturates Ql (U) Negative Negative [facility] Basophils Auto (Bld) [#/Vol] Ordered By: Ed Amaral on 10-26-2021 Basophils (Bld) [#/Vol] 0.1 10*3/uL 0.0-0.2 [facility] Basophils/100 WBC Auto (Bld) Ordered By: Ed Amaral on 10-26-2021 Basophils/100 WBC (Bld) 0.8 % . [facility] Benzodiazepines [Presence] i n UrineOrdered By: Ed Amaral on 10-26-2021 Benzodiazepines Ql (U) Negative Negative [facility] Bilirubin Test strip Ql (U)O rdered By: Ed Amaral on 10-26-2021 Bilirubin Ql (U) Negative Negative [facility] Blood hemoglobin measurement (mass/volume)Ordered By: Ed Amaral on 10-26-2021 Hemoglobin (Bld) [Mass/Vol] 13.3 g/dL 11.8-15.4 [facility] Blood leukocytes automated c ount (number/volume)Ordered By: Ed Amaral on 10-26-2021 WBC (Bld) [#/Vol] 10.2 10*3/uL 4.5-11.0 [facility] COVID-19 Antigenon 2 COVID-19 Antigen Healthcare Worker?: [...] developed and its performance characteristic determined by fitogram and validated at [facility]. This test has not been FDA cleared [...] for SARS Antigen by ERNESTO PERFORMED BY: [place] [address] PATHOLOGIST HR ASSISTANT JAMES MCNAIR M.D. Normal [facility] Comment on above: Performed By: #### S BALJINDER HOBSON, JAS, UHCG, COVID-19 FELI #### [facility] [address] [place] [address] COVID-19 SOFIAOrdered By: Archie Amaral on 10-26-2021 SARS-CoV+SARS-CoV-2 (COVID-19) Ag IA.rapid Ql (Resp) Negative Negative [facility] Comment on above: This is a duplicate Feli SARS Antigen (ERNESTO) result to be used for statistical tracking purpose only. Cannabinoids [Presence] in U rine by Screen methodOrdered By: Ed Amaral on 10-26-2021 Cannabinoids Screen Ql (U) Positive Negative [facility] Comment on above: These are unconfirme d results and should not be used for legal purposes. Drug Cut-Off Concentration: AMPH 1000 ng/mL SANHCEZ 200 ng/mL RENZO 200 ng/mL COCM 300 ng/mL OP 300 ng/mL PCP 25 ng/mL THC 20 ng/mL Complete Blood Count Auto Di ffon 10-26-2021 Basophils (Bld) [#/Vol] 0.1 10*3/uL Normal 0.0-0.2 [facility] Comment on above: Result Comment: PERF ORMED BY: [place] [address] PATHOLOGIST HR ASSISTANT JAMES MCNAIR M.D. Performed By: #### C BC, ETOH, CMP #### [address] Basophils/100 WBC (Bld) 0.8 % Normal . [facility] Comment on above: Performed By: #### C BC, ETOH, CMP #### [place] [address] [place] Eosinophils (Bld) [#/Vol] 0.2 10*3/uL Normal 0.0-0.45 [facility] Comment on above: Performed By: #### C BC, ETOH, CMP #### [address] Eosinophils/100 WBC (Bld) 1.9 % Normal . [facility] Comment on above: Performed By: #### C BC, ETOH, CMP #### [address] Erythrocyte distribution width (RBC) [Ratio] 13.0 % Normal 11.9-15.3 [facility] Comment on above: Performed By: #### C BC, ETOH, CMP #### [address] Hematocrit (Bld) [Volume fraction] 39.1 % Normal 34.0-46.4 [facility] Comment on above: Performed By: #### C BC, ETOH, CMP #### [place] [address] [place] Hemoglobin (Bld) [Mass/Vol] 13.3 g/dL Normal 11.8-15.4 [facility] Comment on above: Performed By: #### C BC, ETOH, CMP #### [place] [address] [place] Lymphocytes (Bld) [#/Vol] 2.2 10*3/uL Normal 1.00-4.8 [facility] Comment on above: Performed By: #### C BC, ETOH, CMP #### [facility] [address] [place] [address] [place] Lymphocytes/100 WBC (Bld) 21.5 % Normal . [facility] Comment on above: Performed By: #### C BC, ETOH, CMP #### [facility] [address] [place] [address] [place] MCH (RBC) [Entitic mass] 32.9 pg Normal 24.7-34.3 [facility] Comment on above: Performed By: #### C BC, ETOH, CMP #### [facility] [address] MCV (RBC) [Entitic vol] 96.5 fL Normal 80-100 [facility] Comment on above: Performed By: #### C BC, ETOH, CMP #### [facility] [address] Mean Corpuscular HGB Conc 34.1 g/dL Normal 32.0-35.0 [facility] Comment on above: Performed By: #### C BC, ETOH, CMP #### [facility] [address] [place] [address] [place] Monocytes (Bld) [#/Vol] 0.6 10*3/uL Normal 0.0-0.8 [facility] Comment on above: Performed By: #### C BC, ETOH, CMP #### [facility] [address] [place] [address] [place] Monocytes/100 WBC (Bld) 6.2 % Normal . [facility] Comment on above: Performed By: #### C BC, ETOH, CMP #### [facility] [address] [place] [address] [place] Neutrophils (Bld) [#/Vol] 7.1 10*3/uL Normal 1.8-7.7 [facility] Comment on above: Performed By: #### C BC, ETOH, CMP #### [facility] [address] [place] [address] [place] Neutrophils/100 WBC (Bld) 69.6 % Normal . [facility] Comment on above: Performed By: #### C BC, ETOH, CMP #### [address] Nucleated RBC/100 WBC (Bld) [Ratio] 0.0 % Normal 0-0.5 [facility] Comment on above: Performed By: #### C BC, ETOH, CMP #### [address] Platelet mean volume (Bld) [Entitic vol] 9.0 fL Normal 6.3-10.7 [facility] Comment on above: Performed By: #### C BC, ETOH, CMP #### [address] Platelets (Bld) [#/Vol] 173 10*3/uL Normal 150-450 [facility] Comment on above: Performed By: #### C BC, ETOH, CMP #### [address] RBC (Bld) [#/Vol] 4.05 10*6/uL Normal 3.60-5.00 [facility] Comment on above: Performed By: #### C BC, ETOH, CMP #### [address] WBC (Bld) [#/Vol] 10.2 10*3/uL Normal 4.5-11.0 [facility] Comment on above: Performed By: #### C BC, ETOH, CMP #### [address] Comprehensive Metabolic Pane [place] 10-26-2021 Albumin [Mass/Vol] 4.0 g/dL Normal 3.2-5.5 [facility] Comment on above: Performed By: #### C BC, ETOH, CMP #### [address] Albumin/Globulin [Mass ratio] 1.5 {ratio} Normal [facility] Comment on above: Performed By: #### C BC, ETOH, CMP #### [address] ALP [Catalytic activity/Vol] 55 U/L Normal 32-92 [facility] Comment on above: Performed By: #### C BC, ETOH, CMP #### [facility] [address] [place] [address] [place] ALT [Catalytic activity/Vol] 20 U/L Normal 10-60 [facility] Comment on above: Performed By: #### C BC, ETOH, CMP #### [facility] [address] Anion gap [Moles/Vol] 10.1 mmol/L Normal 6.0-15.[address] [facility] Comment on above: Performed By: #### C BC, ETOH, CMP #### [facility] [address] AST [Catalytic activity/Vol] 17 U/L Normal 10-42 [facility] Comment on above: Performed By: #### C BC, ETOH, CMP #### [facility] [address] Bilirubin [Mass/Vol] 0.4 mg/dL Normal 0.3-1.2 [facility] Comment on above: Performed By: #### C BC, ETOH, CMP #### [facility] [address] Calcium [Mass/Vol] 9.5 mg/dL Normal 8.2-10.2 [facility] Comment on above: Performed By: #### C BC, ETOH, CMP #### [facility] [address] [place] [address] [place] Chloride [Moles/Vol] 104 mmol/L Normal 95-114 [facility] Comment on above: Performed By: #### C BC, ETOH, CMP #### [facility] [address] [place] [id number] [place] CO2 [Moles/Vol] 25.3 mmol/L Normal 22.0-30.0 [facility] Comment on above: Performed By: #### C BC, ETOH, CMP #### [facility] [address] [place] [address] [place] Creatinine [Mass/Vol] 0.81 mg/dL Normal 0.44-1.03 [facility] Comment on above: Performed By: #### C BC, ETOH, CMP #### [address] Creatinine Clr Calc Pharmacy 97.62 [facility] Comment on above: Result Comment: PERF ORMED BY: [place] [address] PATHOLOGIST HR ASSISTANT JAMES MCNAIR M.D. Performed By: #### C BC, ETOH, CMP #### [address] Estimated GFR ( Nette > 60 [facility] Comment on above: Result Comment: GFR estimated reference range: According to KDOQI guidelines, <60 ml/min/1.73m2 is sufficient to diagnose a patient with chronic kidney disease. Performed By: #### C BC, ETOH, CMP #### [address] Estimated GFR (Non- Am > 60 [facility] Comment on above: Performed By: #### C BC, ETOH, CMP #### [address] Globulin (S) [Mass/Vol] 2.7 g/dL Normal [facility] Comment on above: Performed By: #### C BC, ETOH, CMP #### [address] Glucose [Mass/Vol] 98 mg/dL Normal 70-100 [facility] Comment on above: Result Comment: [place] Glucose Reference Range is dependent on time and content of last meal. Glucose of more than 200 mg/dL in a nonstressed, ambulatory subject supports the diagnosis of Diabetes Mellitus. ADA recommended reference range Performed By: #### C BC, ETOH, CMP #### [address] Potassium [Moles/Vol] 3.4 mmol/L Low 3.5-5.1 [facility] Comment on above: Performed By: #### C BC, ETOH, CMP #### [address] [place] [address] [place] Protein [Mass/Vol] 6.7 g/dL Normal 6.1-7.9 [facility] Comment on above: Performed By: #### C BC, ETOH, CMP #### [facility] [address] [place] [address] [place] Sodium [Moles/Vol] 136 mmol/L Normal 136-146 [facility] Comment on above: Performed By: #### C BC, ETOH, CMP #### [facility] [address] Urea nitrogen [Mass/Vol] 6 mg/dL Low 9-23 [facility] Comment on above: Performed By: #### C BC, ETOH, CMP #### [facility] [address] [place] [address] [place] Creatinine and Glomerular fi ltration rate.predicted panel (S/P/Bld)Ordered By: Ed Amaral on 10-26-2021 Creatinine [Mass/Vol] 0.81 mg/dL 0.44-1.03 [facility] Dipstick and Microscopicon 0 10-26-2021 Appearance (U) Clear Normal Clear [facility] Comment on above: Order Comment: Name Collection Type:: Clean-Voided Midstream Performed By: #### S OFIANEG, URDS, ADDONUAPLUS, UHCG, COVID-19 FELI #### [place] [address] [place] Bilirubin,Urine Negative Normal Negative [facility] Comment on above: Order Comment: Name Collection Type:: Clean-Voided Midstream Performed By: #### S OFIANEG, URDS, ADDONUAPLUS, UHCG, COVID-19 FELI #### [facility] [address] [place] [address] [place] Glucose Ql (U) Normal Normal Normal [facility] Comment on above: Order Comment: Name Collection Type:: Clean-Voided Midstream Performed By: #### S OFIANEG, URDS, ADDONUAPLUS, UHCG, COVID-19 FELI #### [facility] [address] [place] [address] Ketones Ql (U) Negative Normal Negative [facility] Comment on above: Order Comment: Name Collection Type:: Clean-Voided Midstream Performed By: #### S OFIANEG, URDS, ADDONUAPLUS, UHCG, COVID-19 FELI #### [address] Leukocyte esterase Test strip Ql (U) 1+ High Negative [facility] Comment on above: Order Comment: Name Collection Type:: Clean-Voided Midstream Performed By: #### S OFIANEG, URDS, ADDONUAPLUS, UHCG, COVID-19 FELI #### [address] Nitrite,Urine Negative Normal Negative [facility] Comment on above: Order Comment: Name Collection Type:: Clean-Voided Midstream Performed By: #### S OFIANEG, URDS, ADDONUAPLUS, UHCG, COVID-19 FELI #### [address] Occult Blood,Urine Negative Normal Negative [facility] Comment on above: Order Comment: Name Collection Type:: Clean-Voided Midstream Performed By: #### S OFIANEG, URDS, ADDONUAPLUS, UHCG, COVID-19 FELI #### [address] Protein,Urine Negative Normal Negative [facility] Comment on above: Order Comment: Name Collection Type:: Clean-Voided Midstream Performed By: #### S OFIANEG, URDS, ADDONUAPLUS, UHCG, COVID-19 FELI #### [address] RBC LM.HPF (Urine sed) [#/Area] 0 /[HPF] Normal 0-4 [facility] Comment on above: Order Comment: Name Collection Type:: Clean-Voided Midstream Performed By: #### S OFIANEG, URDS, ADDONUAPLUS, UHCG, COVID-19 FELI #### [address] Specificy [place],Urine 1.005 Normal 1.001-1.030 [facility] Comment on above: Order Comment: Name Collection Type:: Clean-Voided Midstream Performed By: #### S OFIANEG, URDS, ADDONUAPLUS, UHCG, COVID-19 FELI #### [address] Squamous Epithelial Cell,Urine 1-2 Normal 0-2 [facility] Comment on above: Order Comment: Name Collection Type:: Clean-Voided Midstream Performed By: #### S OFIANEG, URDS, ADDONUAPLUS, UHCG, COVID-19 FELI #### [address] Urobilinogen,Urine Normal Normal Normal [facility] Comment on above: Order Comment: Name Collection Type:: Clean-Voided Midstream Performed By: #### S OFIANEG, URDS, ADDONUAPLUS, UHCG, COVID-19 FELI #### [address] WBC,Urine 1-2 Normal 0-4 [facility] Comment on above: Order Comment: Name Collection Type:: Clean-Voided Midstream Performed By: #### S OFIANEG, URDS, ADDONUAPLUS, UHCG, COVID-19 FELI #### [place] [address] [place] Drug Screen,Urineon 10-27-19 22 Amphetamine Screen,Urine Negative Normal Negative [facility] Comment on above: Performed By: #### S OFIANEG, URDS, ADDONUAPLUS, UHCG, COVID-19 FELI #### [address] Barbiturate Screen,Urine Negative Normal Negative [facility] Comment on above: Performed By: #### S OFIANEG, URDS, ADDONUAPLUS, UHCG, COVID-19 FELI #### [place] [address] Benzodiazepines Screen,Urine Negative Normal Negative [facility] Comment on above: Performed By: #### S OFIANEG, URDS, ADDONUAPLUS, UHCG, COVID-19 FELI #### [address] Cannabinoid Screen,Urine Positive High Negative [facility] Comment on above: Result Comment: Thes e are unconfirmed results and should not be used for legal purposes. Drug Cut-Off Concentration: AMPH 1000 ng/mL SANCHEZ 200 ng/mL RENZO 200 ng/mL COCM 300 ng/mL OP 300 ng/mL PCP 25 ng/mL THC 20 ng/mL PERFORMED BY: [place] [address] PATHOLOGIST HR ASSISTANT JAMES MCNAIR M.D. Performed By: #### S OFIANEG, URDS, ADDONUAPLUS, UHCG, COVID-19 FELI #### [address] Cocaine Screen,Urine Negative Normal Negative [facility] Comment on above: Performed By: #### S OFIANEG, URDS, ADDONUAPLUS, UHCG, COVID-19 FELI #### [address] Opiate Screen,Urine Negative Normal Negative [facility] Comment on above: Performed By: #### S OFIANEG, URDS, ADDONUAPLUS, UHCG, COVID-19 FELI #### [address] Phencyclidine Screen,Urine Negative Normal Negative [facility] Comment on above: Performed By: #### S OFIANEG, URDS, ADDONUAPLUS, UHCG, COVID-19 FELI #### [address] Eosinophils Auto (Bld) [#/Vo l]Ordered By: Ed Amaral on 10-26-2021 Eosinophils (Bld) [#/Vol] 0.2 10*3/uL 0.0-0.45 [facility] Eosinophils/100 WBC Auto (Bl d)Ordered By: Ed Amaral on 10-26-2021 Eosinophils/100 WBC (Bld) 1.9 % . [facility] Erythrocyte distribution wid th Auto (RBC) [Ratio]Ordered By: Ed Amaral on 10-26-2021 Erythrocyte distribution width (RBC) [Ratio] 13.0 % 11.9-15.3 [facility] Estimated glomerular filtrat ion rate (GFR) non- AmericanOrdered By: Ed Amaral on 10-26-2021 GFR/1.73 sq M.predicted among non-blacks MDRD (S/P/Bld) [Vol rate/Area] > 60 mL/Min [facility] Ethyl Alcohol Profileon 09-29 Ethanol [Mass/Vol] mg/dL Normal [facility] Comment on above: Performed By: #### C BC, ETOH, CMP #### [facility] [address] [place] [address] Percent Ethanol Not performed Normal [facility] Comment on above: Result Comment: PERF ORMED BY: [place] [address] PATHOLOGIST HR ASSISTANT JAMES MCNAIR M.D. Performed By: #### C BC, ETOH, CMP #### [facility] [address] [place], [place] [id number] [place] Globulin Calc (S) [Mass/Vol] Ordered By: Ed Amaral on 10-26-2021 Globulin (S) [Mass/Vol] 2.7 g/dL F [facility] HCG ( test) IA.rapi d Ql (U)Ordered By: Ed Amaral on 10-26-2021 HCG ( test) Ql (U) Negative [facility] HCG,Urineon 10-26-2021 Beta HCG ( test) Ql (U) Negative Normal [facility] Comment on above: Order Comment: Name Collection Type:: Clean-Voided Midstream Result Comment: PERF ORMED BY: [place] [address] PATHOLOGIST HR ASSISTANT JIANLAN SUN M.D. Performed By: #### S OFDEAN, URDS, ADDONUAPLUS, UHCG, COVID-19 FELI #### [facility] [address] Hematocrit Auto (Bld) [Volum e fraction]Ordered By: Ed Amaral on 10-26-2021 Hematocrit (Bld) [Volume fraction] 39.1 % 34.0-46.4 [facility] Ketones Auto test strip (U) [Mass/Vol]Ordered By: Ed Amaral on 10-26-2021 Ketones (U) [Mass/Vol] Negative Negative [facility] Laboratory - Drug toxicology Ordered By: Ed Amaral on 10-26-2021 Opiates Ql (U) Negative Negative [facility] Laboratory - Hematology and Cell countsOrdered By: Ed Amaral on 10-26-2021 Nucleated RBC/100 WBC (Bld) [Ratio] 0.0 % 0-0.5 [facility] Lymphocytes Auto (Bld) [#/Vo l]Ordered By: Ed Amaral on 10-26-2021 Lymphocytes (Bld) [#/Vol] 2.2 10*3/uL 1.00-4.8 [facility] Lymphocytes/100 WBC Auto (Bl d)Ordered By: Ed Amaral on 10-26-2021 Lymphocytes/100 WBC (Bld) 21.5 % . [facility] MCH Auto (RBC) [Entitic mass ]Ordered By: Ed Amaral on 10-26-2021 MCH (RBC) [Entitic mass] 32.9 pg 24.7-34.3 [facility] MCHC Auto (RBC) [Mass/Vol]Or dered By: Ed Amaral on 10-26-2021 MCHC (RBC) [Mass/Vol] 34.1 g/dL 32.0-35.0 [facility] MCV Auto (RBC) [Entitic vol] Ordered By: Ed Amaral on 10-26-2021 MCV (RBC) [Entitic vol] 96.5 fL 80-100 F [facility] Monocytes Auto (Bld) [#/Vol] Ordered By: Ed Amaral on 10-26-2021 Monocytes (Bld) [#/Vol] 0.6 10*3/uL 0.0-0.8 [facility] Monocytes/100 WBC Auto (Bld) Ordered By: Ed Amaral on 10-26-2021 Monocytes/100 WBC (Bld) 6.2 % . F [facility] Neutrophils Auto (Bld) [#/Vo l]Ordered By: Ed Amaral on 10-26-2021 Neutrophils (Bld) [#/Vol] 7.1 10*3/uL 1.8-7.7 [facility] Neutrophils/100 WBC Auto (Bl d)Ordered By: Ed Amaral on 10-26-2021 Neutrophils/100 WBC (Bld) 69.6 % . [facility] Nitrite Test strip Ql (U)Ord ered By: Ed Amaral on 10-26-2021 Nitrite Ql (U) Negative Negative [facility] No Panel InformationOrdered By: Ed Amaral on 10-26-2021 Estimated GFR () > 60 mL/Min [facility] Comment on above: GFR estimated refere nce range: According to KDOQI guidelines, <60 ml/min/1.73m2 is sufficient to diagnose a patient with chronic kidney disease. Pharmacy Creatinine Clearance (Chem 97.62 [facility] SARS Antigen (LFIA) [facility] Phencyclidine Screen Ql (U)O rdered By: Ed Amaral on 10-26-2021 Phencyclidine Ql (U) Negative Negative [facility] Platelet mean volume Auto (B ld) [Entitic vol]Ordered By: Ed Amaral on 10-26-2021 Platelet mean volume (Bld) [Entitic vol] 9.0 fL 6.3-10.7 [facility] Platelets Auto (Bld) [#/Vol] Ordered By: Ed Amaral on 10-26-2021 Platelets (Bld) [#/Vol] 173 10*3/uL 150-450 [facility] Protein Auto test strip (U) [Mass/Vol]Ordered By: Ed Amaral on 10-26-2021 Protein (U) [Mass/Vol] Negative Negative [facility] Protein [Mass/volume] in Ser um or PlasmaOrdered By: Ed Amaral on 10-26-2021 Protein [Mass/Vol] 6.7 g/dL 6.1-7.9 [facility] RBC Auto (Bld) [#/Vol]Ordere d By: Ed Amaral on 10-26-2021 RBC (Bld) [#/Vol] 4.05 10*6/uL 3.60-5.00 [facility] Serum or plasma alanine daniel otransferase measurement without P-5'-P (enzymatic activiOrdered By: Ed Amaral on 10-26-2021 ALT No additional P-5'-P [Catalytic activity/Vol] 20 U/L 10-60 [facility] Serum or plasma albumin/glob ulin mass ratioOrdered By: Ed Amaral on 10-26-2021 Albumin/Globulin [Mass ratio] 1.5 {ratio} [facility] Serum or plasma alkaline jame sphatase measurement (enzymatic activity/volume)Ordered By: Ed Amaral on 10-26-2021 ALP [Catalytic activity/Vol] 55 U/L 32-92 [facility] Serum or plasma anion gap de terminationOrdered By: Ed Amaral on 10-26-2021 Anion gap [Moles/Vol] 10.1 mmol/L 6.0-15.[address] [facility] Serum or plasma aspartate am inotransferase measurement (enzymatic activity/volume)Ordered By: Ed Amaral on 10-26-2021 AST [Catalytic activity/Vol] 17 U/L 10-42 [facility] Serum or plasma calcium stephane urement (mass/volume)Ordered By: Ed Amaral on 10-26-2021 Calcium [Mass/Vol] 9.5 mg/dL 8.2-10.2 [facility] Serum or plasma chloride rios surement (moles/volume)Ordered By: Ed Amaral on 10-26-2021 Chloride [Moles/Vol] 104 mmol/L 95-114 [facility] Serum or plasma ethanol stephane urement (mass/volume)Ordered By: Ed Amaral on 10-26-2021 Ethanol [Mass/Vol] mg/dL [facility] Ethanol [Mass/Vol] TNP [facility] Comment on above: Test not performed Serum or plasma glucose stephane urement (mass/volume)Ordered By: Ed Amaral on 10-26-2021 Glucose [Mass/Vol] 98 mg/dL 70-100 [facility] Comment on above: ADA recommended refe rence range Random Glucose Reference Range is dependent on time and content of last meal. Glucose of more than 200 mg/dL in a nonstressed, ambulatory subject supports the diagnosis of Diabetes Mellitus. Serum or plasma potassium me asurement (moles/volume)Ordered By: Ed Amaral on 10-26-2021 Potassium [Moles/Vol] 3.4 mmol/L 3.5-5.1 [facility] Serum or plasma sodium measu rement (moles/volume)Ordered By: Ed Amaral on 10-26-2021 Sodium [Moles/Vol] 136 mmol/L 136-146 [facility] Serum or plasma total biliru bin measurement (mass/volume)Ordered By: Ed Amaral on 10-26-2021 Bilirubin [Mass/Vol] 0.4 mg/dL 0.3-1.2 [facility] Serum or plasma total carbon dioxide measurement (moles/volume)Ordered By: Ed Amaral on 10-26-2021 CO2 [Moles/Vol] 25.3 mmol/L 22.0-30.0 [facility] Serum or plasma urea nitroge n measurement (mass/volume)Ordered By: Ed Amaral on 10-26-2021 Urea nitrogen [Mass/Vol] 6 mg/dL 9-23 [facility] Feli Ag Negativeon 10-27-19 22 Feli Ag Negative Negative Normal Negative [facility] Comment on above: Result Comment: This is a duplicate Feli SARS Antigen (ERNESTO) result to be used for statistical tracking purpose only. PERFORMED BY: [facility] [address] [place] [address] PATHOLOGIST HR ASSISTANT JAMES MCNAIR M.D. Performed By: #### S BALJINDER HOBSON, JAS, UHCG, COVID-19 FELI #### [address] Specific gravity Auto test s trip (U) [Rel density]Ordered By: Ed Amaral on 10-26-2021 Specific gravity (U) [Rel density] 1.005 1.001-1.030 [facility] Squamous epithelial cells de tection in urine sediment by light microscopyOrdered By: Ed Amaral on 10-26-2021 Epithelial cells.squamous LM Ql (Urine sed) 1-2 [HPF] 0-2 [facility] Urine bacteria detection by automated methodOrdered By: Ed Amaral on 10-26-2021 Bacteria Auto Ql (U) N/A [facility] Urine clarity by refractomet ry automatedOrdered By: Ed Amaral on 10-26-2021 Clarity Refractometry automated (U) Clear Clear [facility] Urine cocaine detectionOrder ed By: Ed Amaral on 10-26-2021 Cocaine Ql (U) Negative Negative [facility] Urine glucose measurement by automated test strip (mass/volume)Ordered By: Ed Amaral on 10-26-2021 Glucose Auto test strip (U) [Mass/Vol] Normal mg/dL Normal [facility] Urine hemoglobin detection b y automated test stripOrdered By: Ed Amaral on 10-26-2021 Hemoglobin Auto test strip Ql (U) Negative Negative [facility] Urine leukocyte esterase det ection by automated test stripOrdered By: Ed Amaral on 10-26-2021 Leukocyte esterase Auto test strip Ql (U) 1+ Negative [facility] Urine pH measurement by auto mated test stripOrdered By: Ed Amaral on 10-26-2021 pH (U) 7.0 [pH] Normal 5.0-9.0 [facility] Comment on above: Order Comment: Name Collection Type:: Clean-Voided Midstream Performed By: #### S OFIANEG, URDS, ADDONUAPLUS, UHCG, COVID-19 FELI #### [facility] [address] [place] [address] Urobilinogen Auto test strip (U) [Mass/Vol]Ordered By: Ed Amaral on 10-26-2021 Urobilinogen (U) [Mass/Vol] Normal mg/dL Normal [facility] Viral Non-Resp Culton 2021 Viral Non-Resp Cult Specimen Description .WOUND UPPER .LIP Culture POSITIVE: HSV-1 DNA detected by nucleic acid amp. NEGATIVE: HSV-2 DNA not detected by nucleic acid amplification. Due to the specimen source, HSV 1,2 testing was performed by a molecular method. Report Status FINAL 05/30/2021 Normal [facility] Comment on above: Performed By: #### V [facility] #### [facility] [address] [place] [address] Activity Therapy Specialist: Claude Gonzalez MD No Panel InformationOrdered By: Kia Sharma on 05-28-2021 Reported Physicians See Note [facility] Work Phone: Comment on above: Note: Reported Physi cians:Ordering: Andres SharmaaAttending: Andres SharmaaReferring: Kia Sharma Viral Non-Resp Cult See Note [facility] Work Phone: Comment on above: Note: Specimen Descr iption .WOUND UPPER .LIPCulture POSITIVE: HSV-1 DNA detected by nucleic acid amp.NEGATIVE: HSV-2 DNA not detected by nucleic acid amplification.Due to the specimen source, HSV 1,2 testing was performed by a molecular method.Report Status FINAL 2Responsible Observer: SUMMER OLIVER ([id number]) Follicle Stimulating Hormone on 03-10-2021 FSH 4.5 U/L 1.7 - 21.5 U/L [employer] Comment on above: Reference Range: Male: 1.5-12.4 Ovulating Female: Follicular Phase 3.5-12.5 Ovulation Phase 4.7-21.5 Luteal Phase 1.7-7.7 Postmenopausal Female: 25.8-134.8 Luteinizing Hormoneon 2021 LH 3.0 U/L 1.0 - 95.6 U/L [employer] Comment on above: Reference Range: Male: 1.7-8.6 Ovulating Female: Follicular Phase 2.4-12.6 Ovulation Phase 14.0-95.6 Luteal Phase 1.0-11.4 Postmenopausal Female: 7.7-58.5 No Panel Informationon 03-10 [employer] Prolactinon 03-10-2021 Prolactin 5.96 ug/L 4.79 - 23.30 ug/L [employer] Comment on above: The presence of macr oprolactin may cause interference in female patients with various endocrinological diseases or during . [employer] TSH with Reflexon 03-10-2021 TSH Qn 0.72 m[IU]/L [facility] hCG, Quantitative, on 03-10-2021 hCG Quant <1 <5 IU/L [employer] Comment on above: Non-preg premeno <=5 Postmeno <=8 Male <=3 If HCG results do not concur with clinical observations, additional testing to confirm results is recommended. Elevated results not associated with may be found in patients with other diseases such as tumors of the germ cells (testis, ovaries, etc.), bladder, pancreas, stomach, lungs, and liver. [employer] , UrineOrdered By: Anthony Galloway on 10-14-2020 Beta HCG ( test) Ql (U) Negative NEGATIVE [email or web address] Phone: Comment on above: Specimens with hCG l evels near the threshold of the test (25 mIU/mL) may give a negative or indeterminate result. In such cases, another test should be performed with a new specimen in 48-72 hours. If early is suspected clinically in this setting, correlation with quantitative serum b-hCG level is suggested. [employer] has confirmed the use of plasma for this test. This has not been cleared or approved by the U.S. Food and Drug Administration. The FDA has determined that such clearance is not necessary. [email or web address] Phone: COVID-19Ordered By: Sabas siddiqi on 10-10-2020 SARS-CoV-2 (COVID-19) RNA SANDRA+probe Ql (Unsp spec) [email or web address] Phone: SARS-CoV-2 (COVID-19) RNA SANDRA+probe Ql (Unsp spec) Not detected Not Detected [email or web address] Phone: Comment on above: The specimen is NEGATIVE for SARS-CoV-2, the novel coronavirus associated with COVID-19. A negative result does not rule out COVID-19. [employer] SARS-CoV-2 for use on the [employer]8800 [employer] is a real-time RT-PCR test intended [...] this assay. Fact sheet for Healthcare Providers: https://www.Jagex.gov/media/917184/download Fact sheet for Patients: https://www.Jagex.gov/media/730688/download METHODOLOGY: RT-PCR Source .NASOPHARYNGEAL SWAB [facility] [email or web address] Phone: [facility] [employer] Phone: Microscopic Urinalysison Amorphous, UA NOT REPORTED None [place], [place] Bacteria, UA 1+ Abnormal None [place] Casts UA NOT REPORTED /LPF [place] Crystals, UA NOT REPORTED None /HPF [place] Epithelial Cells UA 5 TO 10 [place] Interpretation and review of laboratory results Abnormal [place] Mucus, UA NOT REPORTED None [place] Other Observations UA NOT REPORTED NOT REQ. [place] RBC (U) [#/Vol] 0 TO 2 [place] Renal Epithelial, UA NOT REPORTED 0 /HPF [place] Trichomonas, UA NOT REPORTED None [facility] [place] WBC, UA 0 TO 2 [place] Yeast, UA NOT REPORTED None [place] , Urineon 0 Beta HCG ( test) Ql (U) Negative NEGATIVE [place] Comment on above: Specimens with hCG l evels near the threshold of the test (25 mIU/mL) may give a negative or indeterminate result. In such cases, another test should be performed with a new specimen in 48-72 hours. If early is suspected clinically in this setting, correlation with quantitative serum b-hCG level is suggested. [facility] has confirmed the use of plasma for this test. This has not been cleared or approved by the U.S. Food and Drug Administration. The FDA has determined that such clearance is not necessary. Urinalysis Reflex to Culture on 02-25-2020 Bilirubin Urine Negative NEGATIVE [place] Color, UA YELLOW YELLOW [place] Glucose, Ur Negative NEGATIVE [place] Ketones Ql (U) Negative NEGATIVE [place] Leukocyte esterase Test strip Ql (U) Negative NEGATIVE [place] Nitrite, Urine Negative NEGATIVE [place] pH, UA 6.5 [place] Protein (U) [Mass/Vol] Negative NEGATIVE [place] Specific [place], UA 1.010 [place] Turbidity UA CLEAR CLEAR [place] Urinalysis Comments NOT REPORTED [place] Urine Hgb Negative NEGATIVE [place] Urobilinogen, Urine Normal Normal [place] Wet Prep, Genitalon 02-25-20 20 Direct Exam NO TRICHOMONAS SEEN [place] Direct Exam NO YEAST OBSERVED [place] Direct Exam CLUE CELLS SEEN Abnormal [place] Interpretation and review of laboratory results Abnormal [place] Special Requests NOT REPORTED [place] Specimen Description .VAGINA [place] Laboratory Studieson 016 Albumin [Mass/Vol] 3.4 g/dL 3.2-5.5 [facility] Albumin/Globulin [Mass ratio] 1.5 {ratio} [facility] ALP [Catalytic activity/Vol] 50 U/L 32-92 [facility] ALT [Catalytic activity/Vol] 17 U/L 10-60 [facility] AST [Catalytic activity/Vol] 16 U/L 10-42 [facility] Basophils (Bld) [#/Vol] 0.0 10*3/uL 0.0-0.2 [facility] Basophils/100 WBC (Bld) 0.3 % F [facility] Bilirubin Ql (U) 0.2 mg/dL Low 0.3-1.2 [facility] Bilirubin.direct [Mass/Vol] mg/dL 0.0-0.4 [facility] Bilirubin.indirect (Body fld) [Mass/Vol] TNP [facility] Comment on above: Test not performed WHEN BILD IS <0.1,IBIL IS NOT ABLE TO BE CALCULATED. Calcium [Mass/Vol] 9.3 mg/dL 8.2-10.2 [facility] Chloride [Moles/Vol] 106 mmol/L 95-114 [facility] Cholesterol [Mass/Vol] 9 mg/dL [facility] Cholesterol [Mass/Vol] 101 mg/dL Low 140-200 [facility] Comment on above: CHOL less than 200 m g/dL Low risk CHOL 201-239 mg/dL Borderline risk CHOL 240 mg/dL and greater High risk Cholesterol in HDL [Mass/Vol] 38 mg/dL 35-85 [facility] Comment on above: HDL CHOL ATP-III CLA SSIFICATION Cardiovascular Risk HDL > or equal to 60 mg/dL Low HDL < 40 mg/dL High Cholesterol.total/Fanny sterol in HDL [Mass ratio] 2.7 {ratio} [facility] CO2 [Moles/Vol] 25.8 mmol/L 22.0-30.0 [facility] Creatinine [Mass/Vol] 0.62 mg/dL 0.44-1.03 [facility] Eosinophils (Bld) [#/Vol] 0.10 10*3/uL 0.0-0.45 [facility] Eosinophils/100 WBC (Bld) 1.5 % [facility] Erythrocyte distribution width (RBC) [Ratio] 13.2 % 11.9-15.3 [facility] Estimated GFR (Non- > 60 [facility] GFR/1.73 sq M.predicted MDRD (S/P/Bld) [Vol rate/Area] mL/min/{1.73_m2} [facility] Comment on above: GFR estimated refere nce range: According to KDOQI guidelines, <60 ml/min/1.73m2 is sufficient to diagnose a patient with chronic kidney disease. Globulin (S) [Mass/Vol] 2.2 g/dL F [facility] Glucose [Mass/Vol] 82 mg/dL 70-100 [facility] Comment on above: ADA RECOMMENDED REFE RENCE RANGE Hematocrit (Bld) [Volume fraction] 32.1 % Low 34.0-46.4 [facility] Hemoglobin (Bld) [Mass/Vol] 11.0 g/dL Low 11.8-15.4 [facility] LDL Cholesterol, Calculated 54 mg/dL 0-100 [facility] Comment on above: LDL ATP III CLASSIFI CATION LDL less than 100 mg/dL Optimal LDL 100-129 mg/dL Near or above optimal LDL 130-159 mg/dL Borderline high LDL 160-189 mg/dL High LDL greater than 189 mg/dL Very high Lymphocytes (Bld) [#/Vol] 2.1 10*3/uL 1.00-4.8 [facility] Lymphocytes/100 WBC (Bld) 25.3 % [facility] MCH (RBC) [Entitic mass] 31.9 pg 24.7-34.3 [facility] MCHC (RBC) [Mass/Vol] 34.4 g/dL 32.0-35.0 [facility] MCV (RBC) [Entitic vol] 92.6 fL 80-100 F [facility] Monocytes (Bld) [#/Vol] 0.7 10*3/uL 0.0-0.8 [facility] Monocytes/100 WBC (Bld) 8.3 % F [facility] Neutrophils (Bld) [#/Vol] 5.3 10*3/uL 1.8-7.7 [facility] Neutrophils/100 WBC (Bld) 64.6 % [facility] Platelet mean volume (Bld) [Entitic vol] 9.5 fL 6.3-10.7 [facility] Platelets (Bld) [#/Vol] 135 10*3/uL Low 150-450 [facility] Potassium [Moles/Vol] 4.3 mmol/L 3.5-5.1 [facility] Protein [Mass/Vol] 5.6 g/dL Low 6.1-7.9 [facility] RBC (Bld) [#/Vol] 3.46 10*6/uL Low 3.60-5.00 [facility] Sodium [Moles/Vol] 138 mmol/L 136-146 [facility] Triglyceride [Mass/Vol] 47 mg/dL 35-149 F [facility] Comment on above: TRIG ATP III CLASSIF ICATION TRIG less than 150 mg/dL Normal TRIG 150-199 mg/dL Borderline high TRIG 200-500 mg/dL High TRIG greater than 500 mg/dL Very high Standard traceable to the Center for Disease Conrtrol and Prevention (CDC) test method. Troponin I.cardiac [Mass/Vol] 0.02 ng/mL 0-0.02 [facility] Comment on above: HARIS LA Cut off value > or equal to 0.03 ng/mL in conjunction with clinical conditions of myocardial infarction. (www.escardio.org/guidelines) TSH Qn 1.89 uIU/mL 0.340-5.600 [facility] Urea nitrogen [Mass/Vol] 7 mg/dL Low 9-23 [facility] WBC (Bld) [#/Vol] 8.2 10*3/uL 3.8-11.6 [facility] Amorphous sediment LM Ql (Urine sed) 2+ [facility] Comment on above: PHOSPHATES Amphetamines Ql (U) Negative [facility] Appearance (U) Hazy Abnormal [facility] Bacteria LM.HPF (Urine sed) [#/Area] Rare [facility]ines [facility]l (U) [facility]l (U) Negative [facility] Cocaine Ql (U) Negative [facility] Color (U) Light-yellow [facility] Epithelial cells.squamous LM.HPF (Urine sed) [#/Area] 3-4 /hpf High [facility] Glucose (U) [Mass/Vol] Normal mg/dL [facility] Ketones Ql (U) Negative [facility] Leukocyte esterase Test strip Ql (U) Negative [facility] Nitrite Ql (U) Negative [facility] Opiates Ql (U) Negative [facility] pH (U) 7.0 [pH] 5.0-9.0 [facility] Phencyclidine Ql (U) Negative [facility] Protein Ql (U) Negative [facility] RBC (U) [#/Vol] Rare /hpf [facility] Specific gravity (U) [Rel density] 1.010 1.001-1.030 [facility] Urine Barbiturates Screen Positive [facility] Urine Collection Type Type [facility] Comment on above: VOIDED Urine Drug Screen Comment See comment [facility] Comment on above: THESE ARE UNCONFIRME D RESULTS AND SHOULD NOT BE USED FOR LEGAL PURPOSES. DRUG CUT-OFF CONCENTRATION: AMPH 1000 ng/mL SANCHEZ 200 ng/mL RENZO 200 ng/mL COCM 300 ng/mL OP 300 ng/mL PCP 25 ng/mL THC 20 ng/mL Urine Marijuana (THC) Screen Positive [facility] Urine Occult Blood Negative [facility] Urobilinogen Qn (U) Normal mg/dL [facility] WBC (U) [#/Vol] Rare /hpf [facility] Laboratory Studieson 016 CK [Catalytic activity/Vol] 51 U/L 22-269 [facility] CK.MB [Mass/Vol] 0.8 ng/mL 0.6-6.3 [facility] Creatine Kinase MB Relative Index 1.5 0.00-2.50 [facility] Vital Signs Date Time Vital Sign Value Performing Clinician Facility 08-03-2022 06:56-0400 Body temperature 99 [degF] Samara Dominguez MD Work Phone: [facility] 08-03-2022 06:56-0400 Diastolic blood pressure 75 mm[Hg] Samara Dominguez MD Work Phone: [facility] 08-03-2022 06:56-0400 Heart rate 129 /min Samara Dominguez MD Work Phone: [facility] 08-03-2022 06:56-0400 Respiratory rate 22 /min Samara Dominguez MD Work Phone: [facility] 08-03-2022 06:56-0400 SaO2% (BldA) [Mass fraction] 100 % Samara Dominguez MD Work Phone: [facility] 08-03-2022 06:56-0400 Systolic blood pressure 131 mm[Hg] Samara Dominguez MD Work Phone: [facility] 07-27-2022 18:47-0400 Body height 175.26 cm Mariposa Duncan CNP Work Phone: [facility] Work Phone: 07-27-2022 18:47-0400 Body mass index (BMI) [Ratio] 22 kg/m2 Mariposa Duncan CNP Work Phone: [facility] Work Phone: 07-27-2022 18:47-0400 Body surface area Derived from formula 1.8 m2 Mariposa Duncan CNP Work Phone: [facility] Work Phone: 07-27-2022 18:47-0400 Body temperature 96.3 [degF] Mariposa Duncan CNP Work Phone: [facility] Work Phone: 07-27-2022 18:47-0400 Body weight 67.72 kg Mariposa Duncan CNP Work Phone: [facility] Work Phone: 07-27-2022 18:47-0400 Diastolic blood pressure 63 mm[Hg] Mariposa Duncan CNP Work Phone: [facility] Work Phone: 07-27-2022 18:47-0400 Heart rate 68 /min Mariposa Duncan CNP Work Phone: [facility] Work Phone: 07-27-2022 18:47-0400 SaO2% (BldA) [Mass fraction] 97 % Mariposa Duncan CNP Work Phone: [facility] Work Phone: 07-27-2022 18:47-0400 Systolic blood pressure 117 mm[Hg] Mariposa 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: [facility] Work Phone: 04-24-2022 13:05-0500 Diastolic blood pressure 60 mm[Hg] Kia Héctor 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 - VEST BACKER Work Phone: [facility] [employer] 04-24-2022 13:05-0500 Systolic blood pressure 122 mm[Hg] Kia Héctor 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 - VEST BACKER Work Phone: [facility] [employer] 04-24-2022 10:44-0500 Body mass index (BMI) [Ratio] 24.78 kg/m2 Kia Héctor 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 - VEST BACKER Work Phone: [facility] [employer] 04-24-2022 10:44-0500 Body temperature 98.4 [degF] Kia Héctor 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 - VEST BACKER Work Phone: [facility] [employer] 04-24-2022 10:44-0500 Body weight 73.94 kg Kia Héctor 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 - VEST BACKER Work Phone: [employer] 04-24-2022 10:44-0500 Heart rate 79 /min Kia Héctor 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 - VEST BACKER Work Phone: [employer] 04-24-2022 10:44-0500 Respiratory rate 20 /min Kia Sharma 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 - VEST BACKER Work Phone: [facility] [employer] 04-24-2022 10:44-0500 SaO2% (BldA) [Mass fraction] 100 % Kia Sharma 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 - VEST BACKER Work Phone: [employer] 03-04-2022 14:15-0500 Diastolic blood pressure 78 mm[Hg] Geoff Miller MD Work Phone: [employer] 03-04-2022 14:15-0500 Heart rate 74 /min Geoff Miller MD Work Phone: [facility] [employer] 03-04-2022 14:15-0500 Respiratory rate 16 /min Geoff Miller MD Work Phone: [facility] [employer] 03-04-2022 14:15-0500 SaO2% (BldA) [Mass fraction] 100 % Geoff Miller MD Work Phone: [facility] [employer] 03-04-2022 14:15-0500 Systolic blood pressure 131 mm[Hg] Geoff Miller MD Work Phone: [facility] [employer] 03-04-2022 13:30-0500 Body temperature 97.2 [degF] Geoff Miller MD Work Phone: [facility] [employer] 03-04-2022 11:15-0500 Body height 172.7 cm Geoff Miller MD Work Phone: [facility] [employer] 03-04-2022 11:15-0500 Body mass index (BMI) [Ratio] 24.94 kg/m2 Geoff Miller MD Work Phone: [facility] [employer] 03-04-2022 11:15-0500 Body weight 74.39 kg Geoff Miller MD Work Phone: [facility] [employer] 03-01-2022 08:00-0500 Body mass index (BMI) [Ratio] 24.94 kg/m2 Nicholas Denton MD Work Phone: [facility] [employer] 03-01-2022 08:00-0500 Body temperature 98.2 [degF] Nicholas Denton MD Work Phone: [facility] [employer] 03-01-2022 08:00-0500 Body weight 74.39 kg Nicholas Denton MD Work Phone: [facility] [employer] 03-01-2022 08:00-0500 Diastolic blood pressure 61 mm[Hg] Nicholas Denton MD Work Phone: [facility] [employer] 03-01-2022 08:00-0500 Heart rate 89 /min Nicholas Denton MD Work Phone: [facility] [employer] 03-01-2022 08:00-0500 Respiratory rate 20 /min Nicholas Denton MD Work Phone: [facility] [employer] 03-01-2022 08:00-0500 SaO2% (BldA) [Mass fraction] 99 % Nicholas Denton MD Work Phone: [facility] [employer] 03-01-2022 08:00-0500 Systolic blood pressure 138 mm[Hg] Nicholas [facility] 10-29-2021 07:30-0400 Body temperature 96.6 [degF] PHYSICIAN NO [facility] 10-29-2021 07:30-0400 Diastolic blood pressure 70 mm[Hg] PHYSICIAN NO [facility] 10-29-2021 07:30-0400 Heart rate 84 /min PHYSICIAN NO [facility] 10-29-2021 07:30-0400 Respiratory rate 18 /min PHYSICIAN NO [facility] 10-29-2021 07:30-0400 SaO2% (BldA) [Mass fraction] 97 % PHYSICIAN NO [facility] 10-29-2021 07:30-0400 Systolic blood pressure 110 mm[Hg] PHYSICIAN NO [facility] 10-27-2021 14:15-0400 Body height 172.72 cm PHYSICIAN NO [facility] 10-26-2021 20:08-0400 Body weight 58.96 kg PHYSICIAN NO [facility] 08-17-2021 16:45-0400 Body height 175.26 cm Kia Sharma [facility] Work Phone: [facility] Work Phone: 08-17-2021 16:45-0400 Body mass index (BMI) [Ratio] 20 kg/m2 Kia Sharma [facility] Work Phone: [facility] Work Phone: 08-17-2021 16:45-0400 Body surface area Derived from formula 1.75 m2 Kia Sharma CNP Work Phone: [facility] Work Phone: 08-17-2021 16:45-0400 Body surface area Derived from formula 1.7 m2 Mariposa 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: [facility] Work Phone: 08-17-2021 16:45-0400 Body temperature 96.7 [degF] Kia Sharma VEST BACKER Work Phone: [facility] Work Phone: 08-17-2021 16:45-0400 Body weight 61.33 kg Kia Sharma VEST BACKER Work Phone: [facility] Work Phone: 08-17-2021 16:45-0400 Diastolic blood pressure 64 mm[Hg] Kia Sharma VEST BACKER Work Phone: [facility] Work Phone: 08-17-2021 16:45-0400 Heart rate 67 /min Kia Sharma CNP Work Phone: [facility] Work Phone: 08-17-2021 16:45-0400 SaO2% (BldA) [Mass fraction] 99 % Kia Sharma VEST BACKER Work Phone: [facility] Work Phone: 08-17-2021 16:45-0400 Systolic blood pressure 110 mm[Hg] Kia Sharma VEST BACKER Work Phone: [facility] Work Phone: 07-15-2021 15:57-0400 Body height 175.26 cm Kia Sharma VEST BACKER Work Phone: [facility] Work Phone: 07-15-2021 15:57-0400 Body mass index (BMI) [Ratio] 19.8 kg/m2 Kia Sharma CNP Work Phone: [facility] Work Phone: 07-15-2021 15:57-0400 Body surface area Derived from formula 1.74 m2 Kia Sharma CNP Work Phone: [facility] Work Phone: 07-15-2021 15:57-0400 Body temperature 98.1 [degF] Kia Sharma CNP Work Phone: [facility] Work Phone: 07-15-2021 15:57-0400 Body weight 60.78 kg Kia Sharma CNP Work Phone: [facility] Work Phone: 07-15-2021 15:57-0400 Diastolic blood pressure 62 mm[Hg] Kia Sharma CNP Work Phone: [facility] Work Phone: 07-15-2021 15:57-0400 Heart rate 68 /min Kia Sharma CNP Work Phone: [facility] Work Phone: 07-15-2021 15:57-0400 Heart Rate Rhythm 1 1 Kia Sharma CNP Work Phone: [facility] Work Phone: 07-15-2021 15:57-0400 SaO2% (BldA) [Mass fraction] 98 % Kia Sharma CNP Work Phone: [facility] Work Phone: 07-15-2021 15:57-0400 Systolic blood pressure 108 mm[Hg] Kia Sharma CNP Work Phone: [facility] Work Phone: 07-01-2021 17:32-0400 Body height 175.26 cm Kia Sharma CNP Work Phone: [facility] Work Phone: 07-01-2021 17:32-0400 Body mass index (BMI) [Ratio] 20.3 kg/m2 Kia Sharma CNP Work Phone: [facility] Work Phone: 07-01-2021 17:32-0400 Body surface area Derived from formula 1.76 m2 Kia Sharma CNP Work Phone: [facility] Work Phone: 07-01-2021 17:32-0400 Body temperature 97.5 [degF] Kia Sharma CNP Work Phone: [facility] Work Phone: 07-01-2021 17:32-0400 Body weight 62.32 kg Kia Sharma CNP Work Phone: [facility] Work Phone: 07-01-2021 17:32-0400 Diastolic blood pressure 58 mm[Hg] Kia Sharma CNP Work Phone: [facility] Work Phone: 07-01-2021 17:32-0400 Heart rate 775 /min Kia Sharma CNP Work Phone: [facility] Work Phone: 07-01-2021 17:32-0400 Heart Rate Rhythm 1 1 Kia Sharma CNP Work Phone: [facility] Work Phone: 07-01-2021 17:32-0400 SaO2% (BldA) [Mass fraction] 97 % Kia Sharma CNP Work Phone: [facility] Work Phone: 07-01-2021 17:32-0400 Systolic blood pressure 116 mm[Hg] Kia Sharma CNP Work Phone: [facility] Work Phone: 05-28-2021 18:41-0400 Body height 175.26 cm Kia Sharma CNP Work Phone: [facility] Work Phone: 05-28-2021 18:41-0400 Body mass index (BMI) [Ratio] 19.6 kg/m2 Kia Sharma CNP Work Phone: [facility] Work Phone: 05-28-2021 18:41-0400 Body surface area Derived from formula 1.74 m2 Kia Sharma CNP Work Phone: [facility] Work Phone: 05-28-2021 18:41-0400 Body temperature 97.7 [degF] Kia Sharma CNP Work Phone: [facility] Work Phone: 05-28-2021 18:41-0400 Body weight 60.33 kg Kia Sharma CNP Work Phone: [facility] Work Phone: 05-28-2021 18:41-0400 Diastolic blood pressure 76 mm[Hg] Kia Sharma CNP Work Phone: [facility] Work Phone: 05-28-2021 18:41-0400 Heart rate 83 /min Kia Sharma CNP Work Phone: [facility] Work Phone: 05-28-2021 18:41-0400 SaO2% (BldA) [Mass fraction] 98 % Kia Sharma CNP Work Phone: [facility] Work Phone: 05-28-2021 18:41-0400 Systolic blood pressure 122 mm[Hg] Kia Sharma CNP Work Phone: [facility] Work Phone: 10-14-2020 13:00-0400 Diastolic blood pressure 68 mm[Hg] Anthony Galloway MD Work Phone: [employer] Work Phone: 10-14-2020 13:00-0400 Heart rate 60 /min Anthony Galloway MD Work Phone: [employer] Work Phone: 10-14-2020 13:00-0400 Respiratory rate 16 /min Anthony Galloway MD Work Phone: [employer] Work Phone: 10-14-2020 13:00-0400 SaO2% (BldA) [Mass fraction] 99 % Anthony Galloway MD Work Phone: [employer] Work Phone: 10-14-2020 13:00-0400 Systolic blood pressure 114 mm[Hg] Anthony Galloway MD Work Phone: [employer] Work Phone: 10-14-2020 12:25-0400 Body temperature 97.39 [degF] Anthony Galloway MD Work Phone: [employer] Work Phone: 10-14-2020 09:35-0400 Body height 172.7 cm Anthony Galloway MD Work Phone: [employer] Work Phone: 10-14-2020 09:35-0400 Body mass index (BMI) [Ratio] 20.13 kg/m2 Anthony Galloway MD Work Phone: [employer] Work Phone: 10-14-2020 09:35-0400 Body weight 60.06 kg Anthony Galloway MD Work Phone: [employer] Work Phone: 05-27-2020 22:19-0400 Body Temperature 97.5 [degF] [employer] Work Phone: 05-27-2020 22:19-0400 BP Diastolic 79 mm[Hg] [employer] Work Phone: 05-27-2020 22:19-0400 BP Systolic 133 mm[Hg] [employer] Work Phone: 05-27-2020 22:19-0400 Pulse (Heart Rate) 94 /min [employer] Work Phone: 05-27-2020 22:19-0400 Pulse Oximetry 98 % [employer] Work Phone: 05-27-2020 22:19-0400 Respiratory Rate 16 /min [employer] Work Phone: 04-03-2020 16:21-0500 BMI (Body Mass Index) 21.9 kg/m2 [facility] Work Phone: 04-03-2020 16:21-0500 Body Temperature 97.9 [degF] [facility] Work Phone: 04-03-2020 16:21-0500 Body weight 67.13 kg [facility] Work Phone: 04-03-2020 16:21-0500 BP Diastolic 82 mm[Hg] [facility] Work Phone: 04-03-2020 16:21-0500 BP Systolic 138 mm[Hg] [facility] Work Phone: 04-03-2020 16:21-0500 BSA (Body Surface Area) 1.82 m2 [facility] Work Phone: 04-03-2020 16:21-0500 Height 175.26 cm [facility] Work Phone: 04-03-2020 16:21-0500 Pulse (Heart Rate) 77 /min [facility] Work Phone: 04-03-2020 16:21-0500 Pulse Oximetry 96 % [facility] Work Phone: 04-03-2020 16:21-0500 Respiratory Rate 18 /min [facility] Work Phone: 04-03-2020 16:21-0500 SaO2% (BldA) [Mass fraction] 96 % Kia Héctor [facility] Work Phone: [facility] Work Phone: 03-20-2020 11:57-0500 BMI (Body Mass Index) 21.4 kg/m2 [facility] Work Phone: 03-20-2020 11:57-0500 Body weight 65.77 kg [facility] Work Phone: 03-20-2020 11:57-0500 BSA (Body Surface Area) 1.8 m2 [facility] Work Phone: 03-20-2020 11:57-0500 Height 175.26 cm [facility] Work Phone: 02-25-2020 21:28-0500 BMI (Body Mass Index) 23.22 kg/m2 [facility] [place] 02-25-2020 21:28-0500 Body Temperature 98.2 [degF] [facility] 02-25-2020 21:28-0500 Body weight 70.31 kg [facility] 02-25-2020 21:28-0500 BP Diastolic 76 mm[Hg] [facility] 02-25-2020 21:28-0500 BP Systolic 144 mm[Hg] [facility] 02-25-2020 21:28-0500 Height 174 cm [facility] 02-25-2020 21:28-0500 Pulse (Heart Rate) 73 /min [facility] 02-25-2020 21:28-0500 Pulse Oximetry 100 % [facility] 02-25-2020 21:28-0500 Respiratory Rate 16 /min [facility] 02-06-2020 17:44-0500 Respiratory Rate 16 /min [facility] 02-06-2020 17:19-0500 BMI (Body Mass Index) 23.57 kg/m2 [facility] 02-06-2020 17:19-0500 Body Temperature 99.61 [degF] [facility] 02-06-2020 17:19-0500 Body weight 70.31 kg [facility] 02-06-2020 17:19-0500 BP Diastolic 60 mm[Hg] [facility] 02-06-2020 17:19-0500 BP Systolic 120 mm[Hg] [facility] 02-06-2020 17:19-0500 Height 172.7 cm [facility] 02-06-2020 17:19-0500 Pulse (Heart Rate) 81 /min [facility] 02-06-2020 17:19-0500 Pulse Oximetry 98 % [facility] 12-24-2019 12:27-0400 BMI (Body Mass Index) 23.42 kg/m2 [facility] 12-24-2019 12:27-0400 Body Temperature 97.9 [degF] [facility] 12-24-2019 12:27-0400 Body weight 69.85 kg [facility] 12-24-2019 12:27-0400 BP Diastolic 64 mm[Hg] [facility] 12-24-2019 12:27-0400 BP Systolic 122 mm[Hg] [facility], [place] 12-24-2019 12:27-0400 Pulse (Heart Rate) 68 /min [facility], [place] 12-24-2019 12:27-0400 Pulse Oximetry 99 % [facility], [place] 12-24-2019 12:27-0400 Respiratory Rate 16 /min [facility], [place] NEGATED: Highlighted row BMI (Body Mass Index) [facility] NEGATED: Highlighted row [facility] (Body Mass Index[facility]: Highlighted row BMI (Body Mass Index) [facility] NEGATED: Highlighted row Body Temperature [facility]: Highlighted row Body Temperature [facility] NEGATED: Highlighted row Body Temperature [facility] NEGATED[facility] Highlighted row [facility]: [facility]lighted [facility] Body [facility] NEGATED: Highlighted row Body weight [facility] NEGATED: Highlighted row BP Diastolic [facility] Highlighted row BP Diastolic [facility] NEGATED: Highlighted row BP Diastolic [facility] NEGATED: Highlighted row BP Systolic [facility] NEGATED: Highlighted row BP Systolic [facility] NEGATED: Highlighted row BP Systolic [facility] NEGATED: Highlighted row Height [facility] NEGATED: Highlighted row Height [facility] NEGATED: Highlighted row Height [facility] NEGATED: Highlighted row Pulse (Heart Rate) [facility] NEGATED: Highlighted row Pulse (Heart Rate) [facility] NEGATED: Highlighted row Pulse (Heart Rate) [facility] NEGATED: Highlighted row Pulse [facility]ximetry [facility] NE[facility]: Highlighted row Pulse Oximetry [facility] NEGATED: Highlighted row Pulse Oximetry [facility] NEGATED: Highlighted row Respiratory Rate [facility] NEGATED: Highlighted row Respiratory Rate [facility] NEGATED: Highlighted row Respiratory Rate [facility] Encounters Encounter Date Encounter Type Care Provider Facility Start: 08-03-2023 End: 08-03-2023 ambulatory GENESIS OJEDA Not Available Start: 07-06-2023 End: 07-06-2023 ambulatory YURIY DALJIT Not Available Start: 06-30-2023 End: 06-30-2023 Emergency department patient visit MARTIN REAL [facility] Start: 06-20-2023 End: 06-20-2023 ambulatory YURIY DALJIT Not Available Start: 05-23-2023 End: 05-23-2023 ambulatory YURIY DALJIT Not Available Start: 05-18-2023 End: 05-18-2023 Emergency department patient visit [facility] Start: 05-01-2023 End: 05-02-2023 ambulatory [facility] Start: 05-01-2023 End: 05-01-2023 Subsequent hospital visit by physician Kia Leo [employer]ER Work Phone: [facility] Start: 04-27-2023 End: 04-27-2023 ambulatory YURIY DALJIT Not Available Start: 08-03-2022 End: 08-03-2022 Emergency department patient visit SAMARA DOMINGUEZ [facility] Start: 08-03-2022 End: 08-03-2022 Emergency department patient visit Samara Dominguez MD Work Phone: [facility] Comment on above: Flank pain (Primary Dx); Urinary tract infection without hematuria, site unspecified Start: 07-27-2022 End: 07-27-2022 [facility] visit, estab pt Mariposa Duncan VE[employer] BACKER Work Phone: [facility] Work Phone: Start: 06-03-2022 End: 06-05-2022 Subsequent hospital visit by physician Kulwinder Das Radiologist [facility] Comment on above: Abscess of female br east Start: 04-24-2022 End: 04-24-2022 Emergency department patient visit Kia Sharma 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 - [employer]ER Work Phone: [facility] Comment on above: Nausea vomiting and diarrhea (Primary Dx) Start: 03-15-2022 End: 03-15-[address] YURIY SABILLON Facility: Start: 03-04-2022 End: 03-04-2022 Subsequent hospital visit by physician Geoff Miller MD Work Phone: [facility] Comment on above: Abscess of right lynette ast (Primary Dx) Start: 03-01-2022 End: 03-01-2022 Emergency department patient visit Nicholas Denton MD Work Phone: [facility] Comment on above: Cellulitis of right breast (Primary Dx) Start: 10-26-2021 End: 10-29-2021 Evaluation and management of inpatient PHYSICIAN [facility] Facility:[facility] Start: 10-26-2021 End: 10-29-2021 Evaluation and management of inpatient PHYSICIAN NO [facility] [place] [address] Start: 08-17-2021 End: 08-17-2021 [facility] visit, estab pt Halima Argueta [facility] Work Phone: [facility] Work Phone: Start: 08-17-2021 End: 08-17-2021 [facility] visit, estab pt Kia Sharma [employer] Work Phone: [facility] Work Phone: Start: 07-15-2021 End: 07-15-2021 [facility] visit, estab pt Halima Argueta [facility] Work Phone: [facility] Work Phone: Start: 07-15-2021 End: 07-15-2021 [facility] visit, estab pt Kia Sharma [employer] Work Phone: [facility] Work Phone: Start: 07-01-2021 End: 07-01-2021 [facility] visit, estab pt Kia Sharma [employer] Work Phone: [facility] Work Phone: Start: 05-29-2021 End: 05-29-2021 ambulatory KIA SHARMA [facility] Start: 05-28-2021 End: 05-28-2021 Subsequent hospital visit by physician AGNES MARTINS [facility] Start: 05-28-2021 End: 05-28-2021 FQ visit, estab pt Kia Sharma [employer] Work Phone: [facility] Work Phone: Start: 03-25-2021 End: 03-25-2021 Subsequent hospital visit by physician [facility] Comment on above: Vaginal discharge Start: 03-10-2021 End: 03-10-2021 Subsequent hospital visit by physician [facility] Comment on above: Irregular menstrual cycle Start: 10-14-2020 End: 10-14-2020 Subsequent hospital visit by physician Anthony Galloway MD Work Phone: [facility] Comment on above: 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) Start: 10-09-2020 End: 10-13-2020 Patient encounter status [facility] Schedule [facility] Start: 10-09-2020 End: 10-13-2020 Subsequent hospital visit by physician Kulwinder Renee19 Pat Screening Schedule [facility] Comment on above: Preop testing Start: 09-25-2020 End: 09-25-2020 Patient encounter status [facility] Schedule [facility] Start: 09-25-2020 End: 09-25-2020 Subsequent hospital visit by physician Kulwinder Renee19 Pat Screening Schedule [facility] Comment on above: Preop testing (Prima ry Dx) Start: 08-19-2020 End: 08-19-2020 Subsequent hospital visit by physician [facility] Comment on above: 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 Start: 05-27-2020 End: 05-27-2020 Emergency department patient visit Sid Norris Work Phone: [facility] Comment on above: Dental infection (Pr imary Dx) Start: 04-03-2020 End: 04-03-2020 Established patient Kia Sharma Work Phone: [facility] Work Phone: Start: 04-03-2020 End: 04-03-2020 General Kia Sharma [facility] Work Phone: [facility] Work Phone: Start: 04-03-2020 End: 04-03-2020 General Halima Argueta [facility] Work Phone: [facility] Work Phone: Start: 04-02-2020 End: 04-02-2020 Subsequent hospital visit by physician [facility] Comment on above: Women's annual routi ne gynecological examination Start: 03-20-2020 End: 03-20-2020 General Halima Argueta Work Phone: [facility] Work Phone: Start: 03-20-2020 End: 03-20-2020 Telemedicine consultation with patient Kia Sharma Work Phone: [facility] Work Phone: Start: 02-25-2020 End: 02-25-2020 Emergency department patient visit Sid Norris Work Phone: [facility] Comment on above: Bacterial vaginosis (Primary Dx); Vaginal bleeding Start: 02-06-2020 End: 02-06-2020 Emergency department patient visit [facility] Comment on above: Dental abscess (Prim rachele Dx); Dental caries Start: 12-24-2019 End: 12-24-2019 Emergency department patient visit [facility] Comment on above: Dental infection (Pr imary Dx) Start: 02-13-2018 End: 02-15-2018 Evaluation and management of inpatient [facility] Start: 02-20-2016 End: 02-23-2016 Evaluation and management of inpatient [facility] Start: 05-12-2015 End: 05-15-2015 Evaluation and management of [facility] Start: 02-11-2014 End: 02-14-2014 Evaluation and management of [facility] Start: 04-28-2007 End: 05-28-2007 Discharged Rec[facility]ring [facility] Start: 02-27-2007 End: 03-29-2007 Discharged [facility]ring [facility] Start: 01-27-2007 End: 02-26-2007 Discharged [facility]ring [facility] Start: 11-27-2006 End: 12-27-2006 Discharged Recurring [facility] Start: 09-27-2006 End: 10-27-2006 Discharged [facility]ring [facility] Start: 08-27-2006 End: 09-26-2006 Discharged Rec[facility]ring [facility] Start: 07-28-2006 End: 09-26-2006 Discharged Recurring [facility] Start: 06-27-2006 End: 07-27-2006 Discharged Rec[facility]ring [facility] Start: 05-28-2006 End: 06-26-2006 Discharged Recurring [facility] Start: 04-27-2006 End: 05-27-2006 Discharged Recurring [facility] Start: 03-30-2006 End: 04-26-2006 Discharged Rec[facility]ring [facility] Start: 02-27-2006 End: 03-29-2006 Discharged Recurring [facility] Start: 01-27-2006 End: 02-26-2006 Discharged Recurring [facility] Start: 12-28-2005 End: 01-26-2006 Discharged Recurring [facility] Start: 11-27-2005 End: 12-27-2005 Discharged Recurring [facility] Start: 10-28-2005 End: 11-26-2005 Discharged Recurring [facility] Start: 09-27-2005 End: 11-26-2005 Discharged Recurring [facility] Start: 09-27-2005 End: 10-27-2005 Discharged Recurring [facility] Start: 08-27-2005 End: 09-26-2005 Discharged Recurring [facility] Start: 06-27-2005 End: 07-27-2005 Discharged Recurring [facility] Start: 04-27-2005 End: 05-27-2005 Discharged Recurring [facility] Start: 03-30-2005 End: 04-26-2005 Discharged Recurring [facility] Start: 02-27-2005 End: 03-29-2005 Discharged Recurring [facility] Start: 01-27-2005 End: 02-26-2005 Discharged Recurring [facility] Start: 12-28-2004 Registered [facility] Start: 11-27-2004 End: 12-27-2004 Discharged Recurring [facility] Start: 11-27-2004 End: 12-27-2004 Discharged Recurring [facility] Start: 11-27-2004 Registered Recurring [facility] Start: 10-28-2004 End: 11-26-2004 Discharged Recurring [facility] Start: 10-28-2004 End: 11-26-2004 Discharged Recurring [facility] Start: 09-27-2004 End: 10-27-2004 Discharged Recurring [facility] Start: 09-27-2004 End: 10-27-2004 Discharged Recurring [facility] Start: 09-02-2004 End: 09-26-2004 Discharged Recurring [facility] Start: 09-02-2004 End: 09-26-2004 Discharged Recurring [facility] Start: 05-17-2000 End: 05-27-2000 Discharged Recurring [facility] Procedures Date Procedure Procedure Detail Performing [...] pressure < 80 mm hg 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: Start: 07-27-2022 Most recent systolic blood pressure <130 mm hg Maripsoa 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: Start: 07-27-2022 Urine test visual color cmprsn meths Mariposa 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: Start: 06-03-2022 Diagnostic mammograp hy [...] Start: 04-24-2022 Comprehensive metabo lic panel Christopher Canory PA-C Work Phone: Start: 03-04-2022 Urine test visual color cmprsn meths Peterson Benito 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 - [employer] Work Phone: Start: 08-17-2021 Most recent diastoli c blood pressure < 80 mm hg Kia Sharma [employer] Work Phone: Start: 08-17-2021 Most recent systolic blood pressure <130 mm hg Kia Sharma [employer] Work Phone: Start: 08-17-2021 Psychotherapy w/hussein ent 30 minutes Halima Argueta LPCC-S Work Phone: Start: 07-15-2021 Most recent diastoli c blood pressure < 80 mm hg Kia Sharma [employer] Work Phone: Start: 07-15-2021 Most recent systolic blood pressure <130 mm hg Kia Sharma [employer] Work Phone: Start: 07-15-2021 Psychotherapy w/hussein ent 30 minutes Halima Argueta LPCC-S Work Phone: Start: 07-01-2021 Most recent diastoli c blood pressure < 80 mm hg Kia Sharma [employer] Work Phone: Start: 07-01-2021 Most recent systolic blood pressure <130 mm hg Kia Sharma [employer] Work Phone: Start: 05-28-2021 Antibody hiv-1&hiv-2 single result Kia Sharma [employer] Work Phone: Start: 05-28-2021 Most recent diastoli c blood pressure < 80 mm hg Kia Sharma [employer] Work Phone: Start: 05-28-2021 Most recent systolic blood pressure <130 mm hg Kia Sharma [employer] Work Phone: Start: 05-28-2021 Pt-focused hlth risk assmt score doc stnd instrm Kia Sharma [employer] Work Phone: Start: 05-28-2021 Viral screening Visit For: Scr eening Exam For Herpes Kia Sharma [employer] Work Phone: Start: 03-10-2021 End: 03-10-2021 Gonadotropin follicle stimulating hormone Anthony Galloway MD Work Phone: Start: 10-14-2020 Urine test visual color cmprsn meths Anthony Galloway MD Work Phone: Start: 10-09-2020 COVID-19 Sabas siddiqi MD Work Phone: Start: 04-02-2020 Microscopic observat ion [Identifier] in Cervix by Cyto stain Start: 03-20-2020 delivery only Kia Sharma Start: 03-20-2020 section Kia Sharma [employer] Work Phone: Start: 03-20-2020 Psychotherapy w/hussein ent 30 minutes Halima Argueta Work Phone: Start: 02-25-2020 Smr prim src wet boby nt nfct agt Sid A TORCH.sh Work Phone: Start: 02-25-2020 Urinalysis microscop ic only Sid A TORCH[employer]sh Work Phone: Start: 02-25-2020 Urine test visual color cmprsn meths Sid A TORCH[employer]sh Work Phone: Start: 02-25-2020 Urnls dip stick/tabl et rgnt auto w/o microscopy Sid A [employer]ORCH[employer]sh Work Phone: Start: 02-15-2018 DISCHARGE PATIENT JUSTINE LOO Start: 02-13-2018 IP CONSULT TO HISTOR Y AND PHYSICAL FEI AMINPTA Start: 02-13-2018 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 Start: 02-13-2018 FULL CODE 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 Start: 02-13-2018 URINE DRUG SCREEN JUSTINE AMINPTA Start: 02-13-2018 Urine test visual color cmprsn meths FEI AMINPTA Start: 02-13-2018 VITAL 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 Start: 02-13-2018 PATIENT STATUS (DIRECT) FEI LOO SARS Antigen (LFIA) PHYSICIA N NO FAMILY Plan of Treatment Date Care Activity Detail Author Start: 03-21-2027 DTaP/Tdap/Td vaccine (2 - Td or Tdap) DTaP/Tdap/Td vaccine (2 - Td or Tdap) [facility] Start: 03-21-2027 DTaP/Tdap/Td vaccine (2 - Td) DTaP/Tdap/Td vaccine (2 - Td) [place] Start: 04-02-2025 Screening for malign ant neoplasm of cervix [facility] Start: 04-02-2023 Screening for malign ant neoplasm of cervix [facility] Start: 09-27-2022 Influenza vaccination [facility] Start: 08-25-2022 FQHC visit, estab pt Medical E stablished Patient Health [facility] Work Phone: Start: 07-27-2022 End: 07-27-2022 Patient education based on identified need [facility] Start: 07-27-2022 CBC W Auto Different ial panel - Blood [facility] Start: 04-25-2022 End: 04-25-2022 Patient encounter procedure 04/25/2022 Appointment Radiology Radiologist, [facility] Ultrasound Start: 03-04-2022 End: 03-04-2022 Incision & drainage abscess simple/single BREAST INCISION AND DRAINAGE Abscess of right breast 03/04/2022 12:36 PM [facility] Start: 10-29-2021 [facility] Work Phone: Start: 10-28-2021 Influenza vaccination Flu vacc ine (Season Ended) [facility] Start: 10-26-2021 Referral to Medical Service Representative [facility] Work Phone: Start: 10-26-2021 Hospital admission [facility] Work Phone: Start: 09-27-2021 Influenza vaccination Flu vaccine (# 1) [facility] Start: 09-16-2021 FQHC visit, estab pt Medical E stablished Patient [facility] Work Phone: Start: 08-17-2021 FQHC visit, estab pt Medical E stablished Patient [facility] Work Phone: Start: 08-17-2021 End: 08-17-2021 Patient education based on identified need [facility] Start: 07-15-2021 FQHC visit, estab pt Medical E stablished Patient [facility] Work Phone: Start: 07-15-2021 End: 05-19-2022 Patient education based on identified need Health [facility] Start: 07-01-2021 End: 07-01-2021 Patient education based on identified need [facility] Start: 05-28-2021 End: 05-28-2021 Patient education based on identified need [facility] Start: 04-14-2021 End: 04-14-2021 Patient encounter procedure 04/14/2021 Office Visit Obstetrics and Gynecology Anthony Galloway MD [address] [place], [place] [id number] [facility] OBSTETRICS & GYNECOLOGY [facility] Start: 03-05-2021 FQHC visit, estab pt Medical E stablished Patient [facility] Work Phone: Start: 10-28-2020 Influenza vaccination [facility] Start: 10-14-2020 End: 10-14-2020 Admission to same day surgery center 10/14/2020 Surgery IP Unit Anthony Galloway MD [address] [place] [address] [phone] DILATATION AND CURETTAGE LEEP-ENDOCERVICAL CURETTAGE [facility] Comment on above: DILATATION AND CURET TAGE LEEP-ENDOCERVICAL CURETTAGE Start: 10-14-2020 Subsequent hospital visit by physician 10/14/2020 Hospital Encounter IP Unit Anthony Galloway MD [address] [place], [place] [id number] [facility] Start: 10-09-2020 End: 10-09-2020 Patient encounter procedure 10/09/2020 Appointment Pre-Admission Testing [facility] PRE ADMIT Start: 09-25-2020 End: 09-25-2021 COVID-19 COVID-19 Lab Routine Preop testing Expected: 09/25/2020, Expires: 09/25/2021 [facility] Work Phone: Comment on above: Expected: 09/25/2020 , Expires: 09/25/2021 Start: 04-23-2020 End: 04-23-2020 Procedure visit 04/23/2020 Procedure visit Obstetrics and Gynecology Anthony Galloway MD [address] [place], [place] [id number] [facility] Start: 04-03-2020 End: 04-03-2020 Patient education based on identified need Health [facility] Start: 04-03-2020 Medical Establ ished Patient [facility] Work Phone: Start: 03-20-2020 End: 03-20-2020 Patient education based on identified need Health [facility] Start: 10-29-2019 Influenza vaccination Flu vaccine (# 1) [place], [place] Start: 2014 Screening for malign ant neoplasm of cervix Cervical cancer screen [place], [place] Start: 2011 Hepatitis C screening Hepatitis C sc reen [facility] Start: 2009 COVID-19 Vaccine (1) COVID-19 Vaccin e (1) [facility] Work Phone: Start: 2008 HIV screening HIV screen [facility] Start: 2005 COVID-19 Vaccine (1) COVID-19 Vaccin e (1) [facility] Work Phone: Start: 2005 Depression Monitoring Depression Mon [facility] Start: 2005 Depression Screen Depression Screen [facility] Start: 2004 HPV vaccine (1 - 2-d ose series) HPV vaccine (1 - 2-dose series) [place] Start: 1999 Pneumococcal 0-64 ye ars Vaccine (1 - PCV) Pneumococcal 0-64 years Vaccine (1 - PCV) [facility] Start: 1999 Pneumococcal 0-64 ye ars Vaccine (1 of 1 - PPSV23) Pneumococcal 0-64 years Vaccine (1 of 1 - PPSV23) [place] Start: 1999 Pneumococcal 0-64 ye ars Vaccine (1 of 2 - PPSV23) Pneumococcal 0-64 years Vaccine (1 of 2 - PPSV23) [facility] Start: 1998 COVID-19 Vaccine (1) COVID-19 Vaccin e (1) [facility] Start: 1994 Varicella vaccine (1 of 2 - 2-dose childhood series) Varicella vaccine (1 of 2 - 2-dose childhood series) [facility] Start: 1993 COVID-19 Vaccine (#1) COVID-19 Vacci ne (#1) [facility] Start: 1993 Hepatitis B vaccine (1 of 3 - 3-dose series) Hepatitis B vaccine (1 of 3 - 3-dose series) [facility] Start: 1993 Hepatitis C screening Hepatitis C sc reen [facility] End: 02-25-2020 C.trachomatis N.gonorrhoeae DNA C.trachomatis N.gonorrhoeae DNA Microbiology STAT One Time for 1 Occurrences starting 02/25/2020 until 02/25/2020 [place] Comment on above: One Time for 1 Occur rences starting 02/25/2020 until 02/25/2020 C.trachomatis N.gonorrhoeae DNA C.trachomatis N.gonorrhoeae DNA Microbiology STAT 02/25/2020 10:29 PM EST [place] Culture, Anaerobic a nd Aerobic [facility] Work Phone: Comment on above: Release Upon Orderin g for 1 Occurrences starting 03/04/2022 End: 03-25-2021 [facility] Comment on above: 1 Occurrences starti ng 03/25/2021 until 03/25/2021 End: 08-03-2022 Culture, Urine [facility] Work Phone: Comment on above: Once for 1 Occurrenc es starting 08/03/2022 until 08/03/2022 End: 05-01-2023 Culture, [facility] Phone: Comment on above: Once for 1 Occurrenc es starting 05/01/2023 until 05/01/2023 End: 05-29-2021 Culture, Virus, Non Respiratory Culture, Virus, Non Respiratory Microbiology Routine Once for 1 Occurrences starting 05/29/2021 until 05/29/2021 [email or web address] Phone: Comment on above: Once for 1 Occurrenc es starting 05/29/2021 until 05/29/2021 Culture, Virus, Non Respiratory Culture, Virus, Non Respiratory Microbiology Routine 05/28/2021 11:57 PM EDT [email or web address] Phone: End: 04-02-2020 Cytopathology procedure, preparation of smear, genital source PAP SMEAR Lab Routine Women's annual routine gynecological examination 1 Occurrences starting 04/02/2020 until 04/02/2020 [employer], [place] Comment on above: 1 Occurrences starti ng 04/02/2020 until 04/02/2020 End: 05-01-2023 HIV Screen [employer] Comment on above: Once for 1 Occurrenc es starting 05/01/2023 until 05/01/2023 End: 03-04-2022 INITIATE PACU OXYGEN THERAPY PROTOCOL Initiate PACU Oxygen Therapy Protocol Respiratory Care Routine Continuous until discontinued starting 03/04/2022 [employer] Work Phone: Comment on above: Continuous until dis continued starting 03/04/2022 Oxygen therapy [Mini mum Data Set] Initiate Oxygen Therapy Protocol Respiratory Care Routine Daily until discontinued starting 10/14/2020 [email or web address] Phone: Comment on above: Daily until disconti nued starting 10/14/2020 Oxygen therapy [Mini mum Data Set] Initiate Oxygen Therapy Protocol Respiratory Care Routine As Needed until discontinued starting 03/04/2022 [facility] [employer] Work Phone: Comment on above: As Needed until disc ontinued starting 03/04/2022 Patient Education Schizophrenia (DC) [facility] DC Instructions [facility] Work Phone: Patient referral [facility] Work Phone: Phase I & II - meter ed glucose Phase I & II - metered glucose Point of Care Testing Routine As Needed until discontinued starting 10/14/2020 [email or web address] Phone: Comment on above: As Needed until disc ontinued starting 10/14/2020 End: 08-19-2020 Surgical Pathology Surgical Pathology Lab Routine HGSIL (high grade squamous intraepithelial lesion) on Pap smear of cervix 1 Occurrences starting 08/19/2020 until 08/19/2020 [email or web address] Phone: Comment on above: 1 Occurrences starti ng 08/19/2020 until 08/19/2020 Surgical Pathology Surgical Path ology Lab Routine Release Upon Ordering for 1 Occurrences starting 10/14/2020 [email or web address] Phone: Comment on above: Release Upon Orderin g for 1 Occurrences starting 10/14/2020 End: 05-01-2023 T. pallidum Ab [facility] Comment on above: Once for 1 Occurrenc es starting 05/01/2023 until 05/01/2023 Immunizations Immunization Date Immunization Notes Care Provider Ralf kim 02-26-2019 Influenza, injectabl e, Madin Yuki Canine Kidney, preservative free, quadrivalent PHYSICIAN NO [facility] Payers Date Payer Category Payer Private Health Insurance [id number] 2021 Self-pay 1995 Unknown [id number] 2.16.8 [id number] 1993 Unknown [id number] [id number]. [id number] 1993 Unknown [id number] 2.16.84 [id number] 1993 Unknown [id number] 2.16.8 [id number] 1993 Unknown [id number] 2.16.8 [id number] 1993 Unknown [id number] 2.16.8 [id number] 1993 Unknown [id number] 2.16.8 [id number] 1993 Unknown [id number] 2.16.84 [id number] 1993 Unknown [id number] 2.16.84 [id number] 1993 Unknown [id number] 2.16.84 [id number] 1993 Unknown [id number] 2.16.84 [id number] 1993 Unknown [id number] 2.16.84 [id number] 1961 Medicaid [id number] Unknown [id number] 2.16.8 [id number] Social History Date Type Detail Facility Start: 12-24-2019 End: 03-01-2022 Tobacco smoking status NHIS Current every day smoker [place] History of tobacco use Cigarette Smoker [place] Start: 12-24-2019 End: 08-03-2022 Cigarettes smoked current (pack per day) - Reported [place] Start: 12-24-2019 End: 03-01-2022 Tobacco use and exposure Never used [place] Start: 12-24-2019 End: 08-03-2022 Alcohol intake Current non-drinker of alcohol (finding) [place] Start: 1995 Sex Assigned At Not on file [place] Start: 02-19-2022 End: 04-24-2022 Exposure to SARS-CoV-2 (event) Not sure [place] Assertion Exposure to poll ution (event) [facility] Assertion Tobacco user (finding) [facility] Tobacco smoking status Unknown i f ever smoked [facility] Work Phone: Assertion Social drinker (finding) [facility] Assertion Sexually active (finding) [facility] Assertion [facility] Assertion Gender identity finding (finding) [facility] Finding of sexua l orientation (finding) [facility] Assertion Moderate cigaret te smoker (10-19 cigs/day) (finding) Health [facility] Assertion Heavy cigarette smoker (20-39 cigs/day) (finding) Health [facility] Start: 10-27-2021 Assertion Smoker (finding) [facility] Start: 1995 Sex Assigned At Female F [facility] Start: 03-01-2022 History SDOH Alcohol Frequency 1 [employer] Work Phone: Start: 03-01-2022 History SDOH Alcohol Std Drinks 0 [employer] Work Phone: Start: 03-04-2022 Alcohol Comment barely ever- sociall y [employer] Work Phone: Start: 03-01-2022 End: 08-03-2022 Alcohol Use Disorder Identification Test - Consumption [AUDIT-C] [employer] How often to you hav e a drink containing alcohol? Never [employer] NEGATED: Highlighted row Assertion [facility] NEGATED: Highlighted row Assertion Current drinker of alcohol (finding) [facility] NEGATED: Highlighted row Assertion Exposure to pollution (event) [facility] Work Phone: Goals Date Patient Goal Desired Activity /State Functional Status Date Assessment Result Facility 10-29-2021 Functional status Patient at Baseline [facility] Work Phone: Mental Status Date Assessment Result Facility 10-29-2021 Cognitive function Cognitive Sta tus Patient at Baseline [facility] Work Phone: Cognitive function Cognitive fun ctioning was normal Cognitive function finding (finding) [facility] Work Phone: Clinical Notes 03-20-2020 to 08-03-2022 [...] cannot be sent through Care Everywhere.Flank Pain (Slovenian)UTI (Urinary Tract Infection): Female (Slovenian)documented in this encounter [facility] [employer] Phone: 07-27-2022 Instructions Includes: Instructions for all patient encounters Discussed nutritional needs teach healthy choices including fruits and vegetables Last Documented On 3 6:56PM ; [facility] Patient education about a pr oper diet Last Documented On 3 6:56PM ; [facility] Patient education about an a sthma action plan Last Documented On 3 8:31AM ; [facility] Discussed concerns about exe rcise : promote physical activity ~ ~Will add symbicort ~ ~Follow up in one month Last Documented On 3 10:19AM ; [facility] Discussed current self-care methods/coping skills. ~Validated and normalized pt?s feelings while assisting patient process recent events. ~Discussed ongoing counseling. ~Discussed lifestyle changes to address chronic illness. ~Supported patient's personal health goals Last Documented On 2 4:59PM ; [facility] Discussed nutritional needs teach healthy choices including fruits and vegetables Last Documented On 2 4:50PM ; [facility] Patient education about a pr oper diet Last Documented On 2 4:50PM ; [facility] Discussed concerns about exe rcise : promote physical activity Last Documented On 2 4:50PM ; [facility] Discussed current self-care methods/coping skills. ~Validated and normalized pt?s feelings while assisting patient process recent events. ~Discussed ongoing counseling. ~Discussed lifestyle changes to address chronic illness. ~Supported patient's personal health goals Last Documented On 2 8:09PM ; [facility] Discussed nutritional needs teach healthy choices including fruits and vegetables Last Documented On 2 4:02PM ; [facility] Patient education about a pr oper diet Last Documented On 2 4:02PM ; [facility] Discussed concerns about exe rcise : promote physical activity Last Documented On 2 4:02PM ; [facility] Discussed nutritional needs teach healthy choices including fruits and vegetables Last Documented On 2 5:37PM ; [facility] Patient education about a pr oper diet Last Documented On 2 5:37PM ; [facility] Discussed concerns about exe rcise : promote physical activity Last Documented On 2 5:37PM ; [facility] Discussed nutritional needs teach healthy choices including fruits and vegetables Last Documented On 2 6:48PM ; [facility] Patient education about a pr oper diet Last Documented On 2 6:48PM ; [facility] Discussed concerns about exe rcise : promote physical activity Last Documented On 2 6:48PM ; [facility] Discussed nutritional needs teach healthy choices including fruits and vegetables Last Documented On 1 4:21PM ; [facility] Patient education about a pr oper diet Last Documented On 1 4:21PM ; [facility] Discussed concerns about exe rcise : promote physical activity Last Documented On 1 4:21PM ; [facility] Explored current self-care m ethods and encouraged patient to continue using them Last Documented On 1 7:54PM ; [facility] Discussed nutritional needs teach healthy choices including fruits and vegetables Last Documented On 1 11:53AM ; [facility] Patient education about a pr oper diet Last Documented On 1 11:53AM ; [facility] Discussed concerns about exe rcise : promote physical activity Last Documented On 1 11:53AM ; [facility] Work Phone: 1(797) 294-486605-31-2023 Evaluation note Includes: Assessments for all patient encounters Findings Encounter Date [Body mass index [BMI] 22.0- 22.9, adult] assessment of body mass index Medical Established Patient with Mariposa Perla [employer] 07/27/2022 Last Documented On 3 10:19AM ; [facility] Diabetes Risk Test Score was 0.0 score 07/27/2022 Medical Established Patient with Mariposa Perla [employer] 07/27/2022 Last Documented On 3 10:19AM ; [facility] Esophageal reflux without esophagitis Me dical Established Patient with Mariposa Perla [employer] 07/27/2022 Last Documented On 3 10:19AM ; [facility] Schizoaffective disorder Established Patient with Halima Argueta LPCC[facility]S 08/17/2021 Last Documented On 2 9:40PM ; [facility] Asthma Medical Established Patient with Kia Héctor [employer] 08/17/2021 Last Documented On 2 6:20PM ; [facility] Esophageal reflux without esophagitis Me dical Established Patient with Kia Héctor [employer] 08/17/2021 Last Documented On 2 6:20PM ; [facility] Schizoaffective disorder Medical Establi shed Patient with Kia Héctor [employer] 08/17/2021 Last Documented On 2 6:20PM ; [facility] Z68.20 - Body mass index [BM I] 20.0-20.9, adult Medical Established Patient with Kia Héctor [facility] 08/17/2021 Last Documented On 2 6:20PM ; [facility] Schizoaffective disorder Established Patient with Halima Argueta LP[facility] 07/15/2021 Last Documented On 2 11:18AM ; [facility] Schizoaffective disorder BH Established Patient with Ahlima Argueta LPCC-S 07/15/2021 Last Documented On 2 11:18AM ; [facility] Bipolar disorder NOS Medical Established Patient with Kia Héctor [employer] 07/15/2021 Last Documented On 2 9:30AM ; [facility] Esophageal reflux without esophagitis Me dical Established Patient with Kia Héctor [employer] 07/15/2021 Last Documented On 2 9:30AM ; [facility] Herpes simplex type I Medical Established Patien t with Kia Héctor [employer] 07/15/2021 Last Documented On 2 9:30AM ; [facility] Z68.1 - Body mass index [BMI ] 19.9 or less, adult Medical Established Patient with Kia Héctor [employer] 07/15/2021 Last Documented On 2 9:30AM ; [facility] Asthma Medical Established Patient with Kia Héctor [employer] 07/01/2021 Last Documented On 2 7:44PM ; [facility] Bipolar disorder NOS Medical Established Patient with Kia Héctor [employer] 07/01/2021 Last Documented On 2 7:44PM ; [facility] Herpes simplex type I Medical Established Patien t with Kia Héctor [employer] 07/01/2021 Last Documented On 2 7:44PM ; [facility] Schizoaffective disorder Medical Establi shed Patient with Kia Héctor [employer] 07/01/2021 Last Documented On 2 7:44PM ; [facility] Z68.20 - Body mass index [BM I] 20.0-20.9, adult Medical Established Patient with Kia Héctor [employer] 07/01/2021 Last Documented On 2 7:44PM ; [facility] Diabetes Risk Test Score was one score 05/28/2021 Medical Established Patient with Kia Héctor [employer] 05/28/2021 Last Documented On 2 8:39AM ; [facility] Herpes simplex type I Medical Established Patien t with Kia Héctor [employer] 05/28/2021 Last Documented On 2 8:39AM ; [facility] No cough Medical Established Patient with Kia Héctor [employer] 05/28/2021 Last Documented On 2 8:39AM ; [facility] Visit for: screening for hum an immunodeficiency virus Medical Established Patient with Kia Héctor [employer] 05/28/2021 Last Documented On 2 8:39AM ; [facility] Z11.59 - Encounter for nettie kauffman for other viral diseases Medical Established Patient with Kia Héctor [employer] 05/28/2021 Last Documented On 2 8:39AM ; [facility] Z68.1 - Body mass index [BMI ] 19.9 or less, adult Medical Established Patient with Kia Sharma [employer] 05/28/2021 Last Documented On 2 8:39AM ; [facility] Asthma Medical Established Patient with Kia Sharma [employer] 04/03/2020 Last Documented On 1 1:12PM ; [facility] Body mass index Medical Established Patient with Kia Sharma [employer] 04/03/2020 Last Documented On 1 1:12PM ; [facility] Esophageal reflux without esophagitis Me dical Established Patient with Kia Sharma [employer] 04/03/2020 Last Documented On 1 1:12PM ; [facility] Lower backache Medical Established Patient with Kia Sharma [employer] 04/03/2020 Last Documented On 1 1:12PM ; [facility] Bipolar disorder (per denia vega, diagnosed w/both Bipolar I & II) [facility] 03/20/2020 Last Documented On 1 7:55PM ; [facility] Schizoaffective disorder (pe r patient report) Telebehavioral Health with Halima Condonmons LPCC-S 03/20/2020 Last Documented On 1 7:55PM ; [facility] Asthma Telemedicine New Patient with An michelle Sharma [employer] 03/20/2020 Last Documented On 1 9:48AM ; [facility] Lumbago Telemedicine New Patient with An michelle Sharma [employer] 03/20/2020 Last Documented On 1 9:48AM ; [facility] Z68.21 - Body mass index [BM I] 21.0-21.9, adult Telemedicine New Patient with Kia Sharma [employer] 03/20/2020 Last Documented On 1 9:48AM ; [facility] Work Phone: 1([phone]) [phone] Progress note* Progress note Date Encounter Last Documented by 07/27/2022 Medical Established Patient Last documented on 07/28/2022; 10:19 AM, Mariposa Duncan VE[employer] BACKER; [facility] Active Problems & Conditions - J45.998 - Asthma - M54.50 - Backache Lower - K21.9 - Esophageal Reflux Without Esophagitis - 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 - F25.0 - Schizoaffective Disorder Chief Complaint The Chief Complaint is: Patient states feels like gerd is coming back, patient states that burps smell like rotten eggs or cushion sewer went to ER for migraines. Referred [...] BP-Sitting L117/63 mmHg BP Cuff SizeRegular Pulse Rate-Cbddowo47 bpm Temp-Zoekijbr28.3 F Bguzsm88 in Kdsvws610 lbs 4.8 oz Body Mass Index22 kg/m2 Body Surface Area1.8 m2 Oxygen Jkddgxhlrz84 % General Appearance: - Awake. - Alert. [...] in household were unable to get needed child welfare specialist: No and unable to get other needs [...] Less than 40 years (0 points) [Pre-DM]. [facility]05-31-2023 Reason for referral (narrative)* Date Encounter Description Provider Reason for Referral 07/27/22 Medical Established Patient Mariposa Duncan ROLF Referral To Mental Health Team; JENIFFER Referral For [facility] Work Phone: [phone]) 215-692402-26-2023 Hospital Discharge instructions* Discharge Instructions* Christopher Stephenson [...] through Care Everywhere. * Nausea and Vomiting (Slovenian) [facility] Work Phone: 1([phone]) 569-539801-06-2023 History of Present illness Narrative* Martha Melgoza [...] smoked today 03/03/22. [facility] [employer] Phone: [phone] Hospital Discharge instructions* Discharge Instructions* Kassidy Davidson [...] to bathe or shower. documented in this encounterMASS[facility]OSPITALPanoramic Power [facility] Phone: [phone]) [phone] Hospital Discharge instructions* Discharge Instructions* Nicholas Denton MD - 03/01/2022 8:09 AM EST Take your medications as prescribed. You may take Tylenol Motrin as needed for pain control as wellas warm compresses. 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 You have been given a referral for general surgeon if this continues for further assessment of possible drainage. * Attachments The following attachments cannot be sent through Care Everywhere. * Cellulitis (Slovenian) documented in this encounterMASSACHUSETTS [facility]AL HOSPITALRiva Digital Media Phone: 1(767) 793-540006-21-2022 Evaluation note Includes: Assessments for all patient encounters Findings Encounter Date Schizoaffective disorder BH Established Patient with Halima Argueta [facility] 08/17/2021 Asthma Medical Established Patient with Kia Héctor [employer] 08/17/2021 Esophageal reflux without esophagitis Me dical Established Patient with Kia Héctor [employer] 08/17/2021 Schizoaffective disorder Medical Establi shed Patient with Kia Héctor [employer] 08/17/2021 Z68.20 - Body mass index [BM I] 20.0-20.9, adult Medical Established Patient with Kia Héctor [employer] 08/17/2021 Schizoaffective disorder BH Established Patient with Halima Argueta [facility] 07/15/2021 Schizoaffective disorder BH Established Patient with Halima Argueta [facility] 07/15/2021 Bipolar disorder NOS Medical Established Patient with Kia Héctor [employer] 07/15/2021 Esophageal reflux without esophagitis Me dical Established Patient with Kia Sharma [employer] 07/15/2021 Herpes simplex type I Medical Establishe d Patient with Kia Sharma [facility] 07/15/2021 Z68.1 - Body mass index [BMI ] 19.9 or less, adult Medical Established Patient with Kia Héctor [facility] 07/15/2021 Asthma Medical Established Patient with Kia Héctor [employer] 07/01/2021 Bipolar disorder NOS Medical Established Patient with Kia Héctor [employer] 07/01/2021 Herpes simplex type I Medical Establishe d Patient with Kia Héctor [employer] 07/01/2021 Schizoaffective disorder Medical Establi shed Patient with Kia Sharma [employer] 07/01/2021 Z68.20 - Body mass index [BM I] 20.0-20.9, adult Medical Established Patient with Kiafranco Sharma [employer] 07/01/2021 Diabetes Risk Test Score was one score 05/28/2021 Medical Established Patient with Kia Héctor [employer] 05/28/2021 Herpes simplex type I Medical Establishe d Patient with Kia Héctor [employer] 05/28/2021 No cough Medical Established Patient with Kia Héctor [facility] 05/28/2021 Visit for: screening for hum an immunodeficiency virus Medical Established Patient with Kia Héctor [employer] 05/28/2021 Z11.59 - Encounter for scree jamari for other viral diseases Medical Established Patient with Kia Sharma [employer] 05/28/2021 Z68.1 - Body mass index [BMI ] 19.9 or less, adult Medical Established Patient with Kia Héctor [employer] 05/28/2021 Asthma Medical Established Patient with Kia Héctor [employer] 04/03/2020 Body mass index Medical Established Patient with Kia Héctor [employer] 04/03/2020 Esophageal reflux without esophagitis Me dical Established Patient with Kia Héctor [employer] 04/03/2020 Lower backache Medical Established Patient with Kia Héctor [employer] 04/03/2020 Bipolar disorder (per denia vega, diagnosed w/both Bipolar I & II) Telebehavioral Health with Halimachuck Condonmons [facility] 03/20/2020 Schizoaffective disorder (pe r patient report) Telebehavioral Health with Halima Argueta [facility] 03/20/2020 Asthma Telemedicine New Pat ient with Kia Sharma [employer] 03/20/2020 Lumbago Telemedicine New Pat ient with Kia Héctor [employer] 03/20/2020 Z68.21 - Body mass index [BM I] 21.0-21.9, adult Telemedicine New Patient with Kia Sharma [employer] 03/20/2020 [facility] Work Phone: [phone] 151-144405-19-2022 Evaluation note Includes: Assessments for all patient encounters Findings Encounter Date Schizoaffective disorder Established Patient with Halima Argueta [facility] 07/15/2021 Schizoaffective disorder Established Patient with Halima Argueta [facility] 07/15/2021 Bipolar disorder NOS Medical Established Patient with Kia Sharma [employer] 07/15/2021 Esophageal reflux without esophagitis Me dical Established Patient with Kia Sharma [employer] 07/15/2021 Herpes simplex type I Medical Establishe d Patient with Kiafranco Sharma [employer] 07/15/2021 Z68.1 - Body mass index [BMI ] 19.9 or less, adult Medical Established Patient with Kia Héctor [employer] 07/15/2021 Asthma Medical Established Patient with Kia Héctor [employer] 07/01/2021 Bipolar disorder NOS Medical Established Patient with Kia Héctor [employer] 07/01/2021 Herpes simplex type I Medical Establishe d Patient with Kia Héctor [employer] 07/01/2021 Schizoaffective disorder Medical Establi shed Patient with Kiafranco Sharma [employer] 07/01/2021 Z68.20 - Body mass index [BM I] 20.0-20.9, adult Medical Established Patient with Kia Héctor [employer] 07/01/2021 Diabetes Risk Test Score was one score 05/28/2021 Medical Established Patient with Kia Sharma [facility] 05/28/2021 Herpes simplex type I Medical Establishe d Patient with Kia Sharma [facility] 05/28/2021 No cough Medical Established Patient with Kia Sharma [facility] 05/28/2021 Visit for: screening for hum an immunodeficiency virus Medical Established Patient with Kia Sharma [facility] 05/28/2021 Z11.59 - Encounter for nettie kauffman for other viral diseases Medical Established Patient with Kia Sharma [facility] 05/28/2021 Z68.1 - Body mass index [BMI ] 19.9 or less, adult Medical Established Patient with Kia Sharma [facility] 05/28/2021 Asthma Medical Established Patient with Kia Sharma [facility] 04/03/2020 Body mass index Medical Established Patient with Kia Sharma [facility] 04/03/2020 Esophageal reflux without esophagitis Me dical Established Patient with Kia Sharma [facility] 04/03/2020 Lower backache Medical Established Patient with Kia Sharma [facility] 04/03/2020 Bipolar disorder (per denia vega, diagnosed w/both Bipolar I & II) Telebehavioral Health with Halima Argueta [facility] 03/20/2020 Schizoaffective disorder (pe r patient report) Telebehavioral Health with Halima Argueta [facility] 03/20/2020 Asthma Telemedicine New Pat ient with Kia Sharma [facility] 03/20/2020 Lumbago Telemedicine New Pat ient with Kia Sharma [facility] 03/20/2020 Z68.21 - Body mass index [BM I] 21.0-21.9, adult Telemedicine New Patient with Kia Sharma [facility] 03/20/2020 [facility] Work Phone: [phone]) [phone] Evaluation note Includes: Assessments for all patient encounters Findings Encounter Date Asthma Medical Established Patient with Kia Sharma [facility] 07/01/2021 Bipolar disorder NOS Medical Established Patient with Kia Sharma [facility] 07/01/2021 Herpes simplex type I Medical Establishe d Patient with Kia Sharma [facility] 07/01/2021 Schizoaffective disorder Medical Establi shed Patient with Kia Sharma [facility] 07/01/2021 Z68.20 - Body mass index [BM I] 20.0-20.9, adult Medical Established Patient with Kia Sharma [facility] 07/01/2021 Diabetes Risk Test Score was one score 05/28/2021 Medical Established Patient with Kia Sharma [facility] 05/28/2021 Herpes simplex type I Medical Establishe d Patient with Kia Sharma [facility] 05/28/2021 No cough Medical Established Patient with Kia Sharma [facility] 05/28/2021 Visit for: screening for hum an immunodeficiency virus Medical Established Patient with Kia Sharma [facility] 05/28/2021 Z11.59 - Encounter for scree jamari for other viral diseases Medical Established Patient with Kia Sharma [facility] 05/28/2021 Z68.1 - Body mass index [BMI ] 19.9 or less, adult Medical Established Patient with Kia Sharma [facility] 05/28/2021 Asthma Medical Established Patient with Kia Sharma [facility] 04/03/2020 Body mass index Medical Established Patient with Kia Sharma [facility] 04/03/2020 Esophageal reflux without esophagitis Me dical Established Patient with Kia Sharma [facility] 04/03/2020 Lower backache Medical Established Patient with Kia Sharma [facility] 04/03/2020 Bipolar disorder (per denia vega, diagnosed w/both Bipolar I & II) Telebehavioral Health with Halima Argueta [facility] 03/20/2020 Schizoaffective disorder (pe r patient report) Telebehavioral Health with Halima Argueta [facility] 03/20/2020 Asthma Telemedicine New Pat ient with Kia Sharma [facility] 03/20/2020 Lumbago Telemedicine New Pat ient with Kia Sharma [facility] 03/20/2020 Z68.21 - Body mass index [BM I] 21.0-21.9, adult Telemedicine New Patient with Kia Sharma [facility] 03/20/2020 [facility] Work Phone: 1(627) 846-550004-01-2022 Evaluation note Includes: Assessments for all patient encounters Findings Encounter Date Diabetes Risk Test Score was one score 05/28/2021 Medical Established Patient with Kia Sharma [facility] 05/28/2021 Herpes simplex type I Medical Establishe d Patient with Kia Sharma [facility] 05/28/2021 No cough Medical Established Patient with Kia Sharma [facility] 05/28/2021 Visit for: screening for hum an immunodeficiency virus Medical Established Patient with Kia Sharma [facility] 05/28/2021 Z11.59 - Encounter for scree jamari for other viral diseases Medical Established Patient with Kia Sharma [facility] 05/28/2021 Z68.1 - Body mass index [BMI ] 19.9 or less, adult Medical Established Patient with Kia Sharma [facility] 05/28/2021 Asthma Medical Established Patient with Kia Sharma [facility] 04/03/2020 Body mass index Medical Established Patient with Kia Sharma [facility] 04/03/2020 Esophageal reflux without esophagitis Me dical Established Patient with Kia Sharma [facility] 04/03/2020 Lower backache Medical Established Patient with Kia Sharma [facility] 04/03/2020 Bipolar disorder (per denia vega, diagnosed w/both Bipolar I & II) Telebehavioral Health with Halima Marroquins [facility] 03/20/2020 Schizoaffective disorder (pe r patient report) Telebehavioral Health with Halima Condonmons [facility] 03/20/2020 Asthma Telemedicine New Pat ient with Kia Sharma [facility] 03/20/2020 Lumbago Telemedicine New Pat ient with Kia Sharma [facility] 03/20/2020 Z68.21 - Body mass index [BM I] 21.0-21.9, adult Telemedicine New Patient with Kia Sharma [facility] 03/20/2020 [facility] Work Phone: 1(327) 524-180608-18-2021 History of Present illness Narrative* Irish Nelson, RN - 10/14/2020 1:08 PM EDT Patient [...] RN - 10/14/2020 12:39 PM EDT [facility] [employer] [place] in to see patient. Patient's boyfriend called to picker box operator. * Rufina Hamilton RN - 09/28/2020 7:52 [...] calls at this time. [email or web address] [email or web address] Phone: [phone] 377-681802-05-2021 Evaluation note Includes: Assessments for all patient encounters Findings Encounter Date Asthma Medical Established Patient with Kia Sharma [facility] 04/03/2020 Body mass index Medical Established Patient with Kia Sharma [facility] 04/03/2020 Esophageal reflux without esophagitis Me dical Established Patient with Kia Sharma [facility] 04/03/2020 Lower backache Medical Established Patient with Kia Sharma [facility] 04/03/2020 Bipolar disorder (per denia vega, diagnosed w/both Bipolar I & II) Telebehavioral Health with Halima Argueta [facility] 03/20/2020 Schizoaffective disorder (pe r patient report) Telebehavioral Health with Halima Argueta [facility] 03/20/2020 Asthma Telemedicine New Pat ient with Kia Sharma [facility] 03/20/2020 Lumbago Telemedicine New Pat ient with Kia Sharma [facility] 03/20/2020 Z68.21 - Body mass index [BM I] 21.0-21.9, adult Telemedicine New Patient with Kia Sharma [employer] 03/20/2020 [facility] Work Phone: 1(343) 582-151301-22-2021 History general Narrative - Reported Includes: Medical History in patient's chart Description Last Updated per pt report- 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 ~heartb urn 03/20/2020 History of psychiatric disor ders ADHD, manic bipolar 1 and 2, schizoeffective disorder 03/20/2020 History of tooth extraction 03/20/2020 History of asthma 03/20/2020 A recent immunization for flu 03/20/2020 No previous hospitalizations 03/20/2020 [facility] Work Phone: 1(265) 789-718501-22-2021 History general Narrative - Reported Includes: Medical History in patient's chart Description Last Updated per pt report- 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 ~[email or web address] 03/20/2020 Last Documented On 1 9:48AM ; [facility] History of psychiatric disor ders ADHD, manic bipolar 1 and 2, schizoeffective disorder 03/20/2020 Last Documented On 1 9:48AM ; [facility] History of tooth extraction 03/20/2020 Last Documented On 1 9:48AM ; [facility] History of asthma 03/20/2020 Last Documented On 1 9:48AM ; [facility] A recent immunization for flu 03/20/2020 Last Documented On 1 9:48AM ; [facility] No previous hospitalizations 03/20/2020 Last Documented On 1 9:48AM ; [facility] Work Phone: Discharge summary Author Osmani baugh [facility] October 29, 2021 9:52am Note Date/Time October 29, 2021 9:52am [facility] [address] [place] [address] Discharge Summary Signed Patient: Bennett Vaughn MR#: [id number] : 1995 Acct:[id number] Age/Sex: 26 / F Adm Date: 2 Loc: 1S Room: 2N4485-[address]: Feliberto Faust MD Copies to: MD Feliberto Barboza MD NO FAMILY PHYSICIAN~ Providers Date of Discharge: 10/29/21 Discharging Provider: Jered Timmons Primary Care Provider: PHYSICIAN [facility] Consults: 10/26/21 20:25 Consult to Case [...] out patient team. Discharge disposition: Home with . Coordinated via case management. Safe discharge Planning: [...] 15 Days Qty: 30 1RF Follow Up: [facility] [Other] (Therapy: Case management: ) Documented By: Osmani Timmons MD 2 0949 Signed By: <Electronically signed by Osmani Timmons MD> 10/29/21 0952 [facility] Work Phone: Evaluation note* Diagnosis HGSIL (high grade squamous intraepithelial lesion) on Pap smear of cervix documented in this encounter [email or web address] Phone: [email or web address] note* Diagnosis Preop testing- Primary Preoperative examination, unspecified documented in this encounter [email or web address] Phone: [email or web address] note* Diagnosis Preop testing Preoperative examination, unspecified documented in this encounter [email or web address] Phone: [email or web address] note* Diagnosis 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 documented in this encounter [email or web address] Phone: [email or web address] note* Diagnosis Irregular menstrual cycle documented in this encounter [email or web address] Phone: [email or web address] note* Diagnosis Vaginal discharge Leukorrhea, not specified as infective documented in this encounter [email or web address] Phone: [email or web address] note* Diagnosis Onset Date Resolution Status Bipolar affective, mixed, sev w/ psych acute Chronic schizophrenia acute PTSD (post-traumatic stress disorder) acute Suicidal ideation acute [facility] Work Phone: Evaluation note* Diagnosis Cellulitis of right breast- Primary documented in this encounter [employer] Phone: evaleutmeg note* Diagnosis Abscess of right breast- Primary Inflammatory disease of breast Abscess of right breast Inflammatory disease of breast documented in this encounter [employer] Phone: evalprbyof note* Diagnosis Nausea vomiting and diarrhea- Primary Nausea with vomiting documented in this encounter [employer] Phone: evaluation note* Diagnosis Abscess of female breast Inflammatory disease of breast documented in this encounter [facility] [employer] Phone: evalkjhiiz note* Diagnosis Flank pain- Primary Abdominal pain, unspecified site Urinary tract infection without hematuria, site unspecified documented in this encounter [employer] Phone: History and physical note Author Feliberto Faust [facility] October 27, 2021 3:07pm Note Date/Time October 27, 2021 3: 07pm [facility] [address] [place] [address] Psychiatry H&P Signed Patient: Bennett Vaughn MR#: [id number] : 1995 Acct:[id number] Age/Sex: 26 / F Adm Date: 2 Loc: Room: 9G9405-8 Type: ADM IN Attending Dr: Feliberto Faust [...] Substance Use: sonia daily Living: boyfriend Employment: [employer] Review of symptoms: Constitutional: Denies chills [...] confirmed this with the medical student as notedbelow. Patient presenting due to concern for hallucinations [...] Appearance Clear Urine pH 7.0 Ur Specific [place] 1.005 Urine Protein Negative Urine Glucose (UA) [...] signed by Feliberto Faust MD> 10/27/21 1507 [facility] Work Phone: History of Present illness Narrative History of Present Illness not supported for this document type No History of Present Illness [facility] Work Phone: Hospital Discharge instructions* Instructions* [...] In the meantime, you may take an aomk-tsx-zqjuweg analgesic (Tylenol, Anacin, etc.) and use a heating pad applied to the lower abdomen. Please call the office as soon as possible for a post-operative visit in two weeks. If you experience any unusual amount of bleeding or side effects that you cannot readily explain, please do not hesitate to call the office. documented in this [facility] Work Phone: Hospital Discharge instructions Additional Instructions Regular diet No activity [facility] Work Phone: Instructions Instructions not supported for this document type No Instructions [facility] Work Phone: Patient problem outcome Narrative Includes: Evaluations & Outcomes for active Goals No Outcomes [facility] Work Phone: Progress note Author Osmani baugh [facility] October 28, 2021 12:18pm Note Date/Time October 28, 2021 12:18pm [facility] [address] [place] [address] Psychiatry Progress Note Signed Patient: Bennett Vaughn MR#: [id number] : 1995 Acct:[id number] Age/Sex: 26 / F Adm Date: 2 Loc: Room: [address] [place] [address] Type : ADM IN Attending Dr: Feliberto [...] participation Monitor for safety/suicidal precautions Documented By: Osmnai Timmons MD 2 1102 Signed By: <Electronically signed by Osmani Timmons MD> 10/28/21 1218 [facility] Work Phone: Reason for referral (narrative)No Reason for Referral [facility] Work Phone: Review of systems Narrative - Reported Review of Systems not supported for this document type No Review of Systems [facility] Work Phone: Summary Purpose Family History No Family History Records Found Description Last Updated father unknown 03/20/2020 Fraternal history of asthma 03/20/2020 Maternal history of hypertension 021 Relationship Condition Age at Onset Recorded Date/T jama Not Specified Bipolar affective disorder Unknown Hypertension Unknown brother Asthma Unknown Description Last Updated father unknown 03/20/2020 Last Documented On 9:48AM ; [facility] Fraternal history of asthma 03/20/2020 Maternal history of hypertension 021 Advance Directives No Advanced Directives Records FoundDocuments on File Type Date Recorded 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 [employer] Worker Expl anation ACP-Advance Directive ACP-Power of Planning Supervisor Latest Code Status on File Code Status Date Activated Date Inactivated Comments Full Code 02/13/2018 11:30 AM 02/15/2018 11:04 PM Full Code 07/15/2017 3:32 AM 07/17/2017 3:26 PM Full Code 07/15/2017 3:31 AM 07/15/2017 3:32 AM Full Code 10/29/2016 5:43 AM 11/02/2016 12:08 AM Full Code 02/14/2015 3:50 AM 02/17/2015 4:19 PM Documents on File Type Date 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 * Tooth: Abscessed (Slovenian) documented in this encounter* Instructions* Sid Norris [...] sent through Care Everywhere. * Bacterial Vaginosis (Slovenian) * Vaginal Bleeding (Slovenian) documented in this encounter* Instructions* Irina Ojeda PA-C - 02/06/2020 Call your dentist to arrange follow-up for recheck this week. * Attachments The following attachments cannot be sent through Care Everywhere. * Tooth: Abscessed (Slovenian) documented in this encounter* Instructions* Jose Saldaña APRN - CNP - 12/24/2019 Take amoxicillin as prescribed. Return to the emergency department for worsening symptoms. * Attachments The following attachments cannot be sent through Care Everywhere. * Dental Care: Pre-Dental Work Precautions: General Info (Slovenian) documented in this encounter Assessments Diagnosis Dental infection Acute apical periodontitis of pulpal origin Diagnosis Dental abscess Periapical abscess without sinus Dental caries Unspecified dental caries Diagnosis Bacterial vaginosis- Primary Vaginitis and vulvovaginitis, unspecified Vaginal bleeding Other specified noninflammatory disorder of vagina Findings Encounter Date Bipolar disorder (per patijeremías t, diagnosed w/both Bipolar I & II) Telebehavioral Health with Halima Argueta [facility] 03/20/2020 Schizoaffective disorder (pe r patient report) Telebehavioral Health with Halimachuck Argueta [facility] 03/20/2020 Asthma Telemedicine New Pat ient with Kia Héctor [facility] 03/20/2020 Lumbago Telemedicine New Pat ient with Kiafranco Sharma [facility] 03/20/2020 Z68.21 - Body mass index [BM I] 21.0-21.9, adult Telemedicine New Patient with Kai Sharma [facility] 03/20/2020 Diagnosis Women's annual routine gynecological examination Findings Encounter Date Asthma Medical Established Patient with Kia Sharma [facility] 04/03/2020 Body mass index Medical Established Patient with Kia Sharma [facility] 04/03/2020 Esophageal reflux without esophagitis Me dical Established Patient with Kia Sharma [facility] 04/03/2020 Lower backache Medical Established Patient with Kia Sharma [facility] 04/03/2020 Bipolar disorder (per denia t, diagnosed w/both Bipolar I & II) Telebehavioral Health with Halima Argueta [facility] 03/20/2020 Schizoaffective disorder (pe r patient report) Telebehavioral Health with Halima Argueta [facility] 03/20/2020 Asthma Telemedicine New Pat ient with Kia Sharma [facility] 03/20/2020 Lumbago Telemedicine New Pat ient with Kia Sharma [facility] 03/20/2020 Z68.21 - Body mass index [BM I] 21.0-21.9, adult Telemedicine New Patient with Kia Héctor [facility] 03/20/2020 Diagnosis Dental infection- Primary Acute [...] section and content) DATE CREATED AUTHOR 12/08/2018 [facility] DATE CREATED AUTHOR AUTHOR'S ORGANIZ ATION 05/31/2021 [facility] DATE CREATED AUTHOR AUTHOR'S ORGANIZ ATION 03/16/2022 [facility] DATE CREATED AUTHOR AUTHOR'S ORGANIZ ATION 04/02/2022 [facility] DATE CREATED AUTHOR AUTHOR'S ORGANIZ ATION 07/01/[address] [facility] DATE CREATED AUTHOR AUTHOR'S ORGANIZ ATION 08/04/2023 [facility] dical Specialists EPIC Reason for [...] (cervical intraepithelial neoplasia II) SHREYA II Procedures CT CONIZATION CERVIX,LOOP ELECTRD DILATATION AND CURETTAGE LEEP-ENDOCERVICAL CURETTAGE Anthony Galloway MD [address] [place] [address] [address] [facility] Reason Comments Breast Pain Right sided, onset y esterday pm, patient states she had an infection in her right breast a few months ago Specialty Diagnoses / Procedures Referred By Gladis vega Referred To Contact Diagnoses Abscess of right breast right breast abcess Procedures CT DRAIN SKIN ABSCESS SIMPLE BREAST INCISION AND DRAINAGE- BREAST Geoff Miller MD [address] [place] [address] [facility] [address] [place] [address] Referral ID Status Reason Start Date Expiration Date Visits Re quested Visits Authorized [id number] 1 1 Reason Comments Nausea Emesis Illness Pt. States she has h ad nausea & vomiting since this am. Reports hot & cold flashes & Occasional dizziness Specialty Diagnoses / Procedures Referred By Gladis vega Referred To Contact Radiology Diagnoses Abscess of female breast Procedures US BREAST LIMITED RIGHT US BREAST COMPLETE RIGHT Geoff Miller MD [address] [place] [address] Referral ID Status Reason Start Date Expiration Date Visits Re quested Visits Authorized [id number] Open 04/18/2022 04/18/2023 1 1 Specialty Diagnoses / Procedures Referred By Gladis t Referred To Contact Radiology Diagnoses Abscess of female breast Procedures DUSTIN JASMINA DIGITAL DIAGNOSTIC BILATERAL DUSTIN DIGITAL DIAGNOSTIC W OR WO CAD BILATERAL Geoff Miller MD [address] [place] [address] Referral ID Status Reason Start Date Expiration Date Visits Re quested Visits Authorized [id number] Closed 04/18/2022 04/18/2023 1 1 Reason Comments [...] 100 mL IVPB (COMPLETED) 2,000 mg, Intravenous, LEVER MILLER TO O.R., 1 dose, On Mon10/14/20 at [...] 100 mL IVPB (COMPLETED) 2,000 mg, IntraVENous, LEVER MILLER TO O.R., 1 dose, On Mon03/04/22 at 1115, Antimicrobial Indications: Surgical Prophylaxis, Administer within 1 hour prior to incision. Recommend to repeat in 3-4 hours after initial dose if still intra-op., Pre-op (day of surgery) 1244 (Given - Provid er: Roseanne Kruse APRN - ENTRY LEVEL PARALEGAL) dimenhyDRINATE (DRAMAMINE) tablet 50 mg (COMPLETED) 50 [...] Comment: Switch to gravity)1308 (Restarted - Provider: NADYA Fischer CRNA)1422 (Stopped - Provider: Martha Melgoza [...] 1204 (New Bag - Prov ider: Jefferson Mckee RN)1412 (Stopped - Provider: Jefferson Mckee RN) [...] minutes 1412 (New Bag - Prov ider: Jeffesron Mckee RN)1528 (Stopped - Provider: Jefferson Mckee [...] 4 MG/2ML injection 1 dose, Starting on Mon04/24/22 at 1203, Until Mon04/25/22 at 0014, Jefferson [...] PHYSICIAN NO FAMILY Primary Care Provider Active Director Weights And Measures Relationship Specialty Start Date End Date Kia Sharma, 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 - VEST BACKER [address] [place] [address] PCP - General Nurse Practitioner 04/13/22 Director Weights And Measures Relationship Specialty Start Date End Date Kia Sharma 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 [facility] [address] [place] [address] PCP - General Nurse Practitioner 04/13/22 Director Weights And Measures Relationship Specialty Start Date End Date Kia Sharma, 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 [employer]ER [address] [place] [address] PCP - General Nurse Practitioner 04/13/22 Director Weights And Measures Relationship Specialty Start Date End Date Kia Sharma, 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 - [facility] [address] [place] [address] PCP - General Nurse Practitioner 04/13/22 FOR [...] BE BASED ON THE PRIMARY CLINICAL RECORDS. [facility] [employer] [facility]. provides no warranty or guarantee of the accuracy or completeness of information in this document.
[2023-08-18 14:22] LABS: Glucose 1 Hour 188 mg/dL (<180)
[2023-08-18 14:22] LABS: Glucose Fasting 82 mg/dL (<95)
[2023-08-18 15:50] LABS: Glucose 2 Hour 177 mg/dL (<155)
[2023-08-18 16:43] LABS: Glucose 3 Hour 82 mg/dL (<140)
== END 2023-08-18 12:42 | disposition home or self-care (01) ==
LOC: LAB 12:41
PROVIDERS: Visit Provider Obstetrics & Gynecology
DX: R73.09 Other abnormal glucose (principal)
CPT/HCPCS: 36415; 82951; 82952

== ENCOUNTER 2023-09-08 07:19 | Outpatient (RCR) | payer OTHER, SELFPAY ==
[2023-09-08 12:21] VITALS: BP 115/69; PULSE 82; TEMP 36.6; O2SAT 98
[2023-09-08] MEDS: RHO(D) IMMUNE GLOBULIN 1,500 UNIT SYRINGE 1500 UNIT IM (14:03)
== END 2023-09-08 14:32 | disposition home or self-care (01) ==
LOC: INF 07:19
PROVIDERS: Visit Provider Obstetrics & Gynecology
DX: O26.893 Other specified pregnancy related conditions, third trimester (principal); Z67.91 Unspecified blood type, Rh negative; Z3A.00 Weeks of gestation of pregnancy not specified
CPT/HCPCS: 36415; 86850; 86900; 86901; 96372; J2790

== ENCOUNTER 2023-09-09 15:57 | Observation (INO) | payer OTHER, SELFPAY ==
[2023-09-09 16:15] VITALS: BP 132/67; PULSE 83
[2023-09-09 16:43] LABS: Bilirubin Urine NEGATIVE (NEGATIVE); Blood Urine NEGATIVE (NEGATIVE); Clarity Urine CLEAR (CLEAR); Color Urine LT. YELLOW (YELLOW); Glucose Urine UA NEGATIVE (NEGATIVE); Ketones Urine TRACE mg/dL (NEGATIVE); Leukocyte Esterase Urine NEGATIVE (NEGATIVE); Nitrite Urine NEGATIVE (NEGATIVE); Protein Urine NEGATIVE (NEG/TRACE); Specific Gravity Urine <=1.005 (1.005-1.025); Urobilinogen Urine 0.2 EU/dL (0.2-1.0); pH Urine 6.5 (5.0-9.0)
[2023-09-09 17:03] LABS: Urine Microscopic Indicated NO
== END 2023-09-09 19:43 | disposition home or self-care (01) ==
PROVIDERS: Admitting Provider Obstetrics & Gynecology; Visit Provider Obstetrics & Gynecology
DX: O47.03 False labor before 37 completed weeks of gestation, third trimester (principal); Z3A.29 29 weeks gestation of pregnancy
CPT/HCPCS: 59025; 81003; G0378; G0379

== ENCOUNTER 2023-09-13 10:13 | Outpatient (OUT) | payer OTHER, SELFPAY | END 2023-09-13 18:25 | disposition home or self-care (01) | PROVIDERS: Visit Provider Obstetrics & Gynecology | DX: O24.410 Gestational diabetes mellitus in pregnancy, diet controlled (principal) | CPT/HCPCS: G0108 ==

== ENCOUNTER 2023-09-15 13:52 | Outpatient (OUT) | payer OTHER, SELFPAY ==
--- NOTE | 2023-09-15 13:55 | US_ITS ---
[address] [address] Patient Name: BENNETT EM MRN: [id number] date: 1995 Sex: F Assigned Patient Location: US Current Patient Location: US Accession/Order Number: [id number] Exam Date: 09/15/2023 14:00 Report Date: 09/15/2023 15:20 At the request of: MERRICK BOCANEGRA Procedure: US OB growth EXAMINATION: US OB growth HISTORY: Gestational Diabetes Mellitus COMPARISON: Ultrasound OB anatomy 07/07/2023 FINDINGS: Heart Rate: 139.18 bpm Amniotic Fluid Volume: 17.1 cm; normal range. Number: 1 Position: [employer]REECH BIOMETRY: BPD: 7.34 cm; 29 weeks 3 days; 22.30 % HC: 28.16 cm; 30 weeks 6 days; 38.90 % AC: 25.90 cm; 30 weeks 0 days; 46.60 % FL: 5.10 cm; 27 weeks 2 days; < 3 % EFW: 1354.40 g; 15.10 % FL/AC: 19.70 FL/BPD: 69.47 HC/AC: 1.09 GESTATIONAL AGE: Age by EDC: 30 weeks 0 days MADIE by EDC: 2023-11-24 Age by US: 29 weeks 3 days MADIE by US: 2023-11-28 US/US OB growth IMPRESSION: 1. Single live intrauterine with growth detailed above. 2. Femur length is < 3rd percentile. Electronically authenticated by: HELENA CASTRO Date: 09/15/2023 15:20
--- OUTSIDE RECORDS SUMMARY | 2023-09-15 14:12 | XMS_ITS | CCD ---
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 Name Role Phone Bryce De La Garza [...] Provider Unava DO Ed Hoover Emergency Provider [phone] MD Feliberto Faust Admit Provider [phone] MD Feliberto Faust Attending Provider [phone] Unavailable Primary Care Provider UnavailDR YURIY Peraza Admitting Unavailable DALJIT, DR SIN Attending Unavailable REQUEST, DR NONE LISTED Primary Care Unavaila DR YURIY Mueller Consulting Unavailable NO FAMILY, PHYSICIAN Primary Care Unavailable Feliberto Faust Attending Unavailable Feliberto Faust Admitting Unavailable Kia Booker APRN, CNP Primary Care Provide r Mariposa Duncan CNP Primary Care Provider [phone] Kia Booker APRN, CNP Primary Care Provide r Kia Booker APRN, CNP Primary Care Provide r YURIY SABILLON Attending Unavailable YURIY SABILLON Attending Unavailable YURIY SABILLON Attending Unavailable GENESIS OJEDA Attending Unavailable YURIY SABILLON Attending Unavailable VIPIN MICHAEL Admitting Unavailable VIPIN MICHAEL Attending Unavailable KIA SHARMA Primary Care Unavailable CLINTON TRIVEDI Admitting Unavailable CLINTON TRIVEDI Attending Unavailable KIA SHARMA Primary Care Unavailable KIA SHARMA Primary Care Unavailable KIA SHARMA Primary Care Unavailable MARTIN REAL Attending Unavailable YURIY SABILLON Referring Unavailable KIA SHARMA Primary Care Unavailable JAGDEEP MANRIQUE Admitting Unavailable JAGDEEP MANRIQUE Attending Unavailable KIA SHARMA Primary Care Unavailable Medications Current Medications Medication Drug Class(es) Dates Sig (Normalized) Sig (Original) acetaminophen 500 mg oral tablet (20 sources) Start: 03-04-2022 acetaminophen (TYLENOL) tablet 1,000 mg Start: 10-14-2020 acetaminophen (TYLENOL) tablet 650 mg Start: 05-27-2020 acetaminophen (TYLENOL) tablet 1,000 mg Start: 05-27-2020 take 2 tablets by mo uth every six hours as needed for pain acetaminophen (TYLENOL) 325 MG tablet Take 2 tablets by mouth every 6 hours as needed for Pain 30 tablet 0 05/27/2020 Suspended acetaminophen 325 mg / HYDROcodone bitartrate 5 [...] pain 10 tablet 0 10/14/2020 10/17/2020 Active [id number] 200 actuat albuterol 0.09 mg/actuat metered dose [...] 19, 2017 1:00am October 26, 2021 9:01pm take 2 puff(s) by in halation every four to six hours as needed for wheezing albuterol sulfate HFA (VENTOLIN HFA) 108 (90 Base) MCG/ACT inhaler Inhale 2 puffs into the lungs every 4-6 hours as needed for Wheezing (1-2 puffs) 0 Suspended amoxicillin 875 mg oral tablet (1 source) [...] formoterol fumarate 0.0045 mg/actuat metered dose inhaler (2 sources) Corticosteroid, beta2-Adrenergic Agonist Start: 07-27-2022 Symbicort 80-4. 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 take 2 puff(s) by in halation twice daily budesonide-formoterol (SYMBICORT) 80-4.5 MCG/ACT AERO Inhale 2 puffs into the lungs 2 times daily 0 Suspended busPIRone hydrochloride 10 mg oral tablet (20 [...] 20 MG PO Three times daily 180 August 16, 2019 12:00am October 26, 2021 [...] Pamoate Active 50 MG PO Q6H 30 15 October 29, 2021 12:00am Start: 09-15-2020 take 1 tablet by boby th three times daily as needed for anxiety hydrOXYzine (ATARAX) 50 MG tablet TAKE 1 TABLET BY MOUTH THREE TIMES DAILY NEEDED FOR ANXIETY 0 09/15/2020 Suspended ibuprofen 600 mg oral tablet (18 sources) Nonsteroidal Anti-inflammatory Drug Start: 03-01-2022 take [...] Nicotine (Polacrilex) Discontinued 2 MG BUCCAL Q2H April 13, 2019 1:00am October 26, 2021 9:02pm ondansetron 4 mg disintegrating oral tablet (14 sources) Serotonin-3 Receptor Antagonist Start: 08-03-2022 take [...] Active 50 MG PO Daily at bedtime October 29, 2021 12:00am Start: 04-23-2017 End: 10-18-2018 take 150 mg by mouth once daily at bedtime Trazodone 150 MG Oral Daily at bedtime April 23, 2017 Discontinued Viloxazine (7 sources) Viloxazine HCl E R (QELBREE) 200 [...] 04/14/2020 - 07/01/2021 Provider: Kia Sharma CNP insulin glargine 100 unt/ml injectable solution (1 source) Insulin Analog insulin glargine (LANTUS) 100 UNIT/ML injection vial Inject 10 Units into the skin nightly 0 Suspended iopamidol (ISOVUE-370) 76 % injection 75 mL (1 source) Start: 04-24-19 End: 04-24-19 iopamidol (ISOVUE-370) 76 % injection 75 mL 1 ml ketorolac tromethamine 30 mg/ml cartridge (1 source) Nonsteroidal Anti-inflammatory Drug, Cyclooxygenase Inhibitor Start: 08-04-19 End: 08-04-19 ketorolac (TORADOL) injection 30 mg naproxen 500 mg oral tablet (7 sources) Nonsteroidal Anti-inflammatory Drug Start: 04-19-19 End: 10-19-19 take 500 mg by mouth every eight hours as needed for pain Naproxen 500 MG Oral Q8H PRN For Pain April 19, 2017 October 18, 2018 Discontinued OLANZapine 10 mg oral tablet (20 sources) Atypical Antipsychotic Start: 02-27-19 End: 04-09-19 take 1 tablet by mouth once daily at bedtime Olanzapine (Zyprexa Zydis) 15 mg tablet,disintegratin g Discontinued 15 MG PO Daily at bedtime [...] 10, 2019 1:00am August 16, 2019 11:37am MV-Min-Fe Fum-FA-DHA ( 1 PO) (1 source) MV-Min- Fe Fum-FA-DHA ( 1 PO) Take 1 capsule by mouth daily 0 Suspended promethazine hydrochloride 12.5 mg oral tablet (1 source) Phenothiazine take 1 tablet by mouth every six hours as needed for nausea promethazine (PHENERGAN) 12.5 MG tablet Take 1 tablet by mouth every 6 hours as needed for Nausea 0 Suspended 50 ml sodium chloride 9 mg/ml injection (6 sources) Start: 08-03-2022 End: 08-03-2022 [...] Problem Classification Problem Date Documented Date Episodic/Chronic Abdominal pain (11 sources) Flank pain; Translations: [Unspecified abdominal pain] Onset: 06-30-2023 Episodic Adjustment disorders (1 source) Adjustment disorder; Translations: [Adjustment disorder, unspecified] 02-28-2019 Chronic Anxiety disorders (6 sources) Posttraumatic stress disorder; Translations: [Post-traumatic stress disorder, unspecified] Onset: 10-26-2021 10-20-2018 Chronic Asthma (20 sources) Asthma; Translations: [Other asthma] Onset: 03-20-2020 Chronic Cancer of cervix (15 sources) High grade squamous intraepithelial lesion on cervical Papanicolaou smear; Translations: [High grade squamous intraepithelial lesion on cytologic smear of cervix (HGSIL)] Episodic Diabetes or abnormal glucose tolerance complicating ; childbirth; or the puerperium (3 sources) Abnormal glucose complicating ; Translations: [Hyperglycemic disorder in ] Onset: 09-04-2023 Episodic Disorders of teeth and jaw (5 [...] [Vitamin D deficiency, unspecified] 04-10-2019 Chronic Other complications of (1 source) Back pain complicating ; Translations: [Back pain affecting in third trimester] Onset: 09-02-2023 09-02-2023 Episodic Other female genital disorders (1 source) [...] mass index (observable entity)] Onset: 03-20-2020 Episodic Residual codes; unclassified (1 source) Gestation period, 28 weeks; Translations: [28 weeks gestation of ] Onset: 09-02-2023 09-02-2023 Episodic Schizophrenia and other psychotic disorders (20 sources) Schizoaffective disorder; Translations: [Schizoaffective disorder, unspecified] Onset: 03-20-2020 Chronic Unclassified (1 source) Patient encounter status; Translations: [Women's annual routine gynecological examination] Unclassified (1 source) 12 week abd pain, cramping Onset: 05-18-2023 Urinary tract infections (1 source) Urinary tract infectious disease; Translations: [Urinary tract infection, site not specified] Episodic Past or Other Problems Problem Classification Problem Date Documented Da te Episodic/Chronic Mood disorders (5 sources) Bipolar I disorder, most recent episode depression; Translations: [Bipolar I disorder, most recent episode depressed] Onset: 07-15-2017 Resolved: 07-17-2017 07-17-2017 Nonmalignant breast conditions (13 sources) Cellulitis of breast; Translations: [Mastitis without abscess] Onset: 03-04-2022 Episodic Spondylosis; intervertebral disc disorders; other back problems (20 sources) Low back pain; Translations: [Low back pain] Onset: 03-20-2020 Episodic Suicide and intentional self-inflicted injury (7 sources) Suicidal behavior; Translations: [Suicidal thoughts] Onset: 10-26-2021 10-26-2021 Episodic Unclassified (5 sources) Finding of body mass index; Translations: [Body mass index (observable entity)] Onset: 03-20-2020 Viral infection (20 sources) Herpes simplex type 1 infection; Translations: [Herpesviral infection, unspecified] Onset: 05-31-2021 Episodic Results Test Name Value Interpretation Reference Range Facility Urinalysison 09-12-2023 Bilirubin Ql (U) Negative NEGATIVE [facility] Clarity (U) Clear Clear [facility] Color (U) Yellow Yellow [facility] Glucose Test strip (U) [Mass/Vol] Negative NEGATIVE mg/dL [facility] Hemoglobin Auto test strip Ql (U) Negative NEGATIVE [facility] Interpretation and review of laboratory results Abnormal [facility] Ketones (U) [Mass/Vol] Negative NEGAT [place] mg/dL [facility] Leukocyte esterase Test strip Ql (U) Negative NEGATIVE [facility] Nitrite Ql (U) Negative NEGATIVE [facility] pH (U) 6.0 [pH] 5.0 - 9.0 [facility] Protein (U) [Mass/Vol] Negative NEGAT [place] mg/dL [facility] Specific gravity (U) [Rel density] Low 1.010 - 1.020 [facility] Urobilinogen Qn (U) Normal 0.0 - 1. 0 EU/dL [facility] Glucose, Whole Bloodon 09-03 Glucose [Mass/Vol] 160 mg/dL High 74-100 [facility] Urinalysis, Routineon 2023 Bilirubin, SemiQt,Ur Negative Normal NEG [facility] Comment on above: Performed By: #### T YS #### [facility] [address] [place], [place] [id number] Cad Engineer: Hayden Cartagena MD Blood, Urine Negative Normal NEG [facility] Comment on above: Performed By: #### T YS #### [facility] [address] [place], [place] [id number] Cad Engineer: Hayden Cartagena MD Clarity (U) Clear Normal CLEAR [facility] Comment on above: Performed By: #### T YS #### [facility] [address] [place] [address] Dr. [place], [place] [id number] Cad Engineer: aHyden Cartagena MD Color (U) Yellow Normal YEL [facility] Comment on above: Performed By: #### T YS #### [facility] [address] [place] [address] Dr. [place], [place] [id number] Cad Engineer: Hayden Cartagena MD Glucose Ql (U) 1+ mg/dL Abnormal NEG [facility] Comment on above: Performed By: #### T YS #### [facility] [address] [place] [address] Dr. [place], [place] [id number] Cad Engineer: Hayden Cartagena MD Ketones Ql (U) Negative Normal NEG [facility] Comment on above: Performed By: #### T YS #### [facility] [address] [place] [address] Dr[address] [place], [place] [id number] Cad Engineer: Hayden Cartagena MD Leukocyte esterase Test strip Ql (U) Negative Normal NEG [facility] Comment on above: Performed By: #### T YS #### [facility] [address] [place] [address] Dr[address] [place], [place] [phone] Cad Engineer: Hayden Cartagena MD Nitrite,Ur Negative Normal [facility] Comment on above: Performed By: #### T YS #### [facility] [address] [place] [address] Dr. [place], [place] [id number] Cad Engineer: Hayden Cartagena MD PH,Ur 6.0 Normal 5.0-9.0 [facility] Comment on above: Performed By: #### T YS #### [facility] [address] [place], [place] [phone] Cad Engineer: Hayden Cartagena MD Protein Ql (U) Negative Normal NEG [facility] Comment on above: Performed By: #### T YS #### [facility] [address] [place] [address] Dr[address] [place], [place] [id number] Cad Engineer: Hayden Cartagena MD Spec. [place],Ur <1.005 Low 1.010-1.020 [facility] Comment on above: Performed By: #### T YS #### [address] [place], [place] [id number] Cad Engineer: Hayden Cartagena MD Urobilinogen,Ur Normal Normal 0.0-1.0 [facility] Comment on above: Performed By: #### T YS #### [facility] [address] [place] [address] [place] [address] Cad Engineer: Hayden Cartagena MD Urinalysis,Microon 4 Bacteria TRACE Abnormal NONE [facility] Comment on above: Performed By: #### T YS #### [address] [place] [address] Cad Engineer: Hayden Cartagena MD Epithelial cells LM Ql (Urine sed) 5 TO 10 Normal 0-25 [facility] Comment on above: Performed By: #### T YS #### [facility] [address] [place] [address] [place] [address] Cad Engineer: Hayden Cartagena MD Urine RBC's None Normal 0-2 [facility] Comment on above: Performed By: #### T YS #### [facility] [address] [place], [place] [id number] Cad Engineer: Hayden Cartagena MD Urine WBC's None Normal 0-5 [facility] Comment on above: Performed By: #### T YS #### [facility] [address] [place], [place] [id number] Cad Engineer: Hayden Cartagena MD Urinalysis, Routineon 2023 Bilirubin, SemiQt,Ur Negative Normal NEG [facility] Comment on above: Performed By: #### T YS #### [facility] [address] [place], [place] [phone] Cad Engineer: Hayden Cartagena MD Blood, Urine Negative Normal NEG [facility] Comment on above: Performed By: #### T YS #### [facility] [address] [place], [place] [phone] Cad Engineer: Hayden Cartagena MD Clarity (U) Clear Normal CLEAR [facility] Comment on above: Performed By: #### T YS #### [facility] [address] [place], [place] [phone] Cad Engineer: Hayden Cartagena MD Color (U) Yellow Normal YEL [facility] Comment on above: Performed By: #### T YS #### [facility] [address] [place] [address] Dr. [place], [place] [id number] Cad Engineer: Hayden Cartagena MD Glucose Ql (U) Negative Normal NEG [facility] Comment on above: Performed By: #### T YS #### [facility] [address] [place], [place] [phone] Cad Engineer: Hayden Cartagena MD Ketones Ql (U) Negative Normal NEG [facility] Comment on above: Performed By: #### T YS #### [facility] [address] [place] [address] Dr[place], [place] [phone] Cad Engineer: Hayden Cartagena MD Leukocyte esterase Test strip Ql (U) Negative Normal NEG [facility] Comment on above: Performed By: #### T YS #### [facility] [address] [place] [address] Cad Engineer: Hayden Cartagena MD Nitrite,Ur Negative Normal NEG [facility] Comment on above: Performed By: #### T YS #### [facility] [address] [place], [place] [id number] Cad Engineer: Hayden Cartagena MD PH,Ur 6.0 Normal 5.0-9.0 [facility] Comment on above: Performed By: #### T YS #### [facility] [address] [place] [phone] Cad Engineer: Hayden Cartagena MD Protein Ql (U) Negative Normal NEG [facility] Comment on above: Performed By: #### T YS #### [address] [place] [id number] Cad Engineer: Hayden Cartagena MD Spec. [place],Ur <1.005 Low 1.010-1.020 [facility] Comment on above: Performed By: #### T YS #### [facility] [address] [place] [address] Dr. [place], [place] [id number] Cad Engineer: Hayden Cartagena MD Urobilinogen,Ur Normal Normal 0.0-1.0 [facility] Comment on above: Performed By: #### T YS #### [facility] [address] [place] [address] Dr. [place], [id number] Cad Engineer: Hayden Cartagena MD Microscopic Urinalysison Bacteria LM Ql (Urine sed) 1+ Abnormal None [facility] Epithelial cells LM.HPF (Urine sed) [#/Area] 0 TO 2 [facility] Interpretation and review of laboratory results Abnormal [facility] RBC LM.HPF (Urine sed) [#/Area] None [facility] WBC LM.HPF (Urine sed) [#/Area] None [facility] Urinalysison 08-24-2023 Bilirubin Ql (U) Negative NEGATIVE [facility] Clarity (U) Clear Clear [facility] Color (U) Yellow Yellow [facility] Glucose Test strip (U) [Mass/Vol] 1+ Abnormal NEGATIVE mg/dL [facility] Hemoglobin Auto test strip Ql (U) Negative NEGATIVE [facility] Interpretation and review of laboratory results Abnormal [facility] Ketones (U) [Mass/Vol] Negative NEGAT [place] mg/dL [facility] Leukocyte esterase Test strip Ql (U) Negative NEGATIVE [facility] Nitrite Ql (U) Negative NEGATIVE [facility] pH (U) 6.0 [pH] 5.0 - 9.0 [facility] Protein (U) [Mass/Vol] Negative NEGAT [place] mg/dL [facility] Specific gravity (U) [Rel density] Low 1.010 - 1.020 [facility] Urobilinogen Qn (U) Normal 0.0 - 1. 0 EU/dL [facility] Urinalysis, Routineon 2023 Bilirubin, SemiQt,Ur Negative Normal NEG [facility] Comment on above: Performed By: #### T YS #### [facility] [address] [place] [id number] Cad Engineer: Hayden Cartagena MD Blood, Urine Negative Normal NEG [facility] Comment on above: Performed By: #### T YS #### [facility] [address] [place] [address] Cad Engineer: Hayden Cartagena MD Clarity (U) Clear Normal CLEAR [facility] Comment on above: Performed By: #### T YS #### [facility] [address] [place] [address] Cad Engineer: Hayden Cartagena MD Color (U) Yellow Normal YEL [facility] Comment on above: Performed By: #### T YS #### [facility] [address] [place] [address] Cad Engineer: Hayden Cartagena MD Glucose Ql (U) 1+ mg/dL Abnormal NEG [facility] Comment on above: Performed By: #### T YS #### [facility] [address] [place] [address] Dr. [place], [place] [id number] Cad Engineer: Hayden Cartagena MD Ketones Ql (U) Negative Normal NEG [facility] Comment on above: Performed By: #### T YS #### [facility] [address] [place] [address] Dr[address] [place], [place] [phone] Cad Engineer: Hayden Cartagena MD Leukocyte esterase Test strip Ql (U) Negative Normal NEG [facility] Comment on above: Performed By: #### T YS #### [facility] [address] [place] [address] Dr. [place], [place] [phone] Cad Engineer: Hayden Cartagena MD Nitrite,Ur Negative Normal NEG [facility] Comment on above: Performed By: #### T YS #### [facility] [address] [place] [address] Dr. [place], [place] [id number] Cad Engineer: Hayden Cartagena MD PH,Ur 6.0 Normal 5.0-9.0 [facility] Comment on above: Performed By: #### T YS #### [address] [place], [place] [id number] Cad Engineer: Hayden Cartagena MD Protein Ql (U) Negative Normal NEG [facility] Comment on above: Performed By: #### T YS #### [facility] [address] [place] [address] [place] [address] Cad Engineer: Hayden Cartagena MD Spec. [place],Ur <1.005 Low 1.010-1.020 [facility] Comment on above: Performed By: #### T YS #### [facility] [address] [place] [address] Dr. [place], [place] [phone] Cad Engineer: Hayden Cartagena MD Urobilinogen,Ur Normal Normal 0.0-1.0 [facility] Comment on above: Performed By: #### T YS #### [facility] [address] [place], [place] [phone] Cad Engineer: Hayden Cartagena MD Urinalysis,Microon 4 Bacteria 1+ Abnormal NONE [facility] Comment on above: Performed By: #### T YS #### [facility] [address] [place], [place] [phone] Cad Engineer: Hayden Cartagena MD Epithelial cells LM Ql (Urine sed) 0 TO 2 Normal 0-25 [facility] Comment on above: Performed By: #### T YS #### [facility] [address] [place], [place] [phone] Cad Engineer: Hayden Cartagena MD Urine RBC's None Normal 0-2 [facility] Comment on above: Performed By: #### T YS #### [facility] [address] [place], [place] [phone] Cad Engineer: Hayden Cartagena MD Urine WBC's None Normal 0-5 [facility] Comment on above: Performed By: #### T YS #### [facility] [address] [place], [place] [id number] Cad Engineer: Hayden Cartagena MD Cult,Urineon 07-01-2023 Cult,Urine Specimen Description .CLEAN CATCH URINE Culture NO SIGNIFICANT GROWTH Report Status FINAL 07/01/2023 Normal [facility] Comment on above: Performed By: #### T YS #### [facility] [address] [place], [place] [id number] Cad Engineer: Hayden Cartagena MD Urinalysis w/ Microon 2023 Bilirubin, SemiQt,Ur Negative Normal NEG [facility] Comment on above: Performed By: #### U AMIC #### [facility] [address] [place] [address] Cad Engineer: Hayden Cartagena MD Blood, Urine Negative Normal NEG [facility] Comment on above: Performed By: #### U AMIC #### [facility] [address] [place] [address] Dr. [place], [place] [phone] Cad Engineer: Hayden Cartagena MD Clarity (U) Clear Normal CLEAR [facility] Comment on above: Performed By: #### U AMIC #### [facility] [address] [place], [place] [phone] Cad Engineer: Hayden Cartagena MD Color (U) Yellow Normal YEL [facility] Comment on above: Performed By: #### U AMIC #### [address] [place], [place] [phone] Cad Engineer: Hayden Cartagena MD Epithelial cells LM Ql (Urine sed) 2 TO 5 Normal 0-25 [facility] Comment on above: Performed By: #### U AMIC #### [facility] [address] [place] [address] Dr. [place], [place] [phone] Cad Engineer: Hayden Cartagena MD Glucose Ql (U) Negative Normal NEG [facility] Comment on above: Performed By: #### U AMIC #### [facility] [address] [place] [address] Dr. [place], [place] [phone] Cad Engineer: Hayden Cartagena MD Ketones Ql (U) Negative Normal NEG [facility] Comment on above: Performed By: #### U AMIC #### [facility] [address] [place] [address] Dr[place], [place] [phone] Cad Engineer: Hayden Cartagena MD Leukocyte esterase Test strip Ql (U) Negative Normal NEG [facility] Comment on above: Performed By: #### U AMIC #### [facility] [address] [place] [address] [place] [address] Cad Engineer: Hayden Cartagena MD Nitrite,Ur Negative Normal NEG [facility] Comment on above: Performed By: #### U AMIC #### [facility] [address] [place], [place] [phone] Cad Engineer: Hayden Cartagena MD PH,Ur 6.0 Normal 5.0-9.0 [facility] Comment on above: Performed By: #### U AMIC #### [facility] [address] [place], [place] [phone] Cad Engineer: Hayden Cartagena MD Protein Ql (U) Negative Normal NEG [facility] Comment on above: Performed By: #### U AMIC #### [facility] [address] [place], [place] [phone] Cad Engineer: Hayden Cartagena MD Spec. [place],Ur 1.010 Normal 1.010-1.020 [facility] Comment on above: Performed By: #### U AMIC #### [facility] [address] [place] [address] Dr. [place], [place] [id number] Cad Engineer: Hayden Cartagena MD Urine RBC's None Normal 0-2 [facility] Comment on above: Performed By: #### U AMIC #### [address] [place], [place] [id number] Cad Engineer: Hayden Cartagena MD Urine WBC's None Normal 0-5 [facility] Comment on above: Performed By: #### U AMIC #### [facility] [address] [place], [place] [id number] Cad Engineer: Hayden Cartagena MD Urobilinogen,Ur Normal Normal 0.0-1.0 [facility] Comment on above: Performed By: #### U AMIC #### [facility] [address] [place], [place] [id number] Cad Engineer: Hayden Cartagena MD Cult,Urineon 05-03-2023 Cult,Urine Specimen [...] above: Performed By: #### T YS #### [address] [place] [address] Cad Engineer: Hayden Cartagena MD HIV Ag/Abon 05-02-2023 HIV Ag/Ab Non-Reactive Normal [facility] Comment on above: Result Comment: No l aboratory evidence of HIV infection. If acute HIV infection is suspected, consider testing for HIV-1 RNA. Performed By: #### C DP #### [address] [place] [address] Cad Engineer: Hayden Cartagena MD #### HBS, GLYHGB, TREP, AHCV, HIVCMB, LISA #### [facility] [employer] [address] [place], [place] [address] Cad Engineer: Claude Gonzalez MD T.pallidum Ab Screenon 05-01 T.pallidum Ab Screen Non-Reactive Normal [facility] Comment on above: Result Comment: T. pallidum antibodies are not detected. There is no serological evidence of infection with T. pallidum (early primary syphilis cannot be excluded). Retest in 2-4 weeks if syphilis is clinically suspect. Performed By: #### C DP #### [address] [place] [address] Cad Engineer: Hayden Cartagena MD #### HBS, GLYHGB, TREP, AHCV, HIVCMB, LISA #### [facility] [address] [place] [address] Cad Engineer: Claude Gonzalez MD CBC with Auto Differentialon 05-01-2023 Basophils (Bld) [#/Vol] 0.03 10*3/uL [facility] Basophils/100 WBC (Bld) 0 % 0 - 2 % [facility] Eosinophils (Bld) [#/Vol] [facility] Eosinophils/100 WBC (Bld) 0 % Low 1 - 4 % [facility] Erythrocyte distribution width (RBC) [Ratio] 12.2 % 11.8 - 14.4 % [facility] Hematocrit (Bld) [Volume fraction] 36.2 % Low 36.3 - 47.1 % [facility] Hemoglobin (Bld) [Mass/Vol] 12.1 g/dL 11.9 - 15.1 g/dL [facility] Immature granulocytes (Bld) [#/Vol] [facility] Immature granulocytes/100 WBC (Bld) 0 % 0 [facility] Interpretation and review of laboratory results Abnormal [facility] Lymphocytes/100 WBC (Bld) 19 % Low 24 - 43 % [facility] Lymphocytes/100 WBC (Bld) 1.62 % [facility] MCH (RBC) [Entitic mass] 32.1 pg 25.2 - 33.5 pg [facility] MCHC (RBC) [Mass/Vol] 33.4 g/dL 28.4 - 34.8 g/dL [facility] MCV (RBC) [Entitic vol] 96.0 fL 82.6 - 102.9 fL [facility] Monocytes/100 WBC (Bld) 6 % 3 - 12 % [facility] Monocytes/100 WBC (Bld) 0.51 % [facility] Neutrophils/100 WBC (Bld) 75 % High 36 - 65 % [facility] Nucleated RBC/100 WBC (Bld) [Ratio] 0.0 % 0.0 per 100 WBC [facility] Platelet mean volume (Bld) [Entitic vol] 10.3 fL 8.1 - 13.5 fL [facility] Platelets (Bld) [#/Vol] 201 10*3/uL [facility] RBC (Bld) [#/Vol] 3.77 10*6/uL Low 3.95 - 5.1 1 m/uL [facility] Segmented neutrophils/100 WBC (Bld) 6.24 % [facility] WBC other (Bld) [#/Vol] 8.4 B ON [facility] CBC with Diffon 05-01-2023 Abs. Basophil 0.03 k/uL Normal 0.00-0.20 [facility] Comment on above: Performed By: #### C DP #### [facility] [address] [place] [address] Dr. [place] [phone] Cad Engineer: Hayden Cartagena MD #### HBS, GLYHGB, TREP, AHCV, HIVCMB, LISA #### [place] [phone] Cad Engineer: Claude Gonzalez MD Abs. Eosinophil <0.03 Normal 0.00-0.44 [facility] Comment on above: Performed By: #### C DP #### [facility] [address] [place] [address] Dr. [place] [phone] Cad Engineer: Hayden Cartagena MD #### HBS, GLYHGB, TREP, AHCV, HIVCMB, LISA #### [place] [phone] Cad Engineer: Claude Gonzalez MD Abs.Imm.Granulocyte <0.03 Normal 0.00-0.30 [facility] Comment on above: Performed By: #### C DP #### [facility] [address] [place] [address] Dr. [place] [phone] Cad Engineer: Hayden Cartagena MD #### HBS, GLYHGB, TREP, AHCV, HIVCMB, LISA #### [place] [phone] Cad Engineer: Claude Gonzalez MD Abs.Neutrophil (Seg) 6.24 k/uL Normal 1.50-8.10 [facility] Comment on above: Performed By: #### C DP #### [address] [place] [phone] Cad Engineer: Hayden Cartagena MD #### HBS, GLYHGB, TREP, AHCV, HIVCMB, LISA #### [address] [phone] Cad Engineer: Claude Gonzalez MD Basophils/100 WBC (Bld) 0 % Normal 0-2 M [facility] Comment on above: Performed By: #### C DP #### [address] [place] [phone] Cad Engineer: Hayden Cartagena MD #### HBS, GLYHGB, TREP, AHCV, HIVCMB, LISA #### [address] [phone] Cad Engineer: Claude Gonzalez MD Eosinophils/100 WBC (Bld) 0 % Low 1-4 [facility] Comment on above: Performed By: #### C DP #### [address] [place] [phone] Cad Engineer: Hayden Cartagena MD #### HBS, GLYHGB, TREP, AHCV, HIVCMB, LISA #### [address] [phone] Cad Engineer: Claude Gonzalez MD Erythrocyte distribution width (RBC) [Ratio] 12.2 % Normal 11.8-14.4 [facility] Comment on above: Performed By: #### C DP #### [address] [place] [address] Cad Engineer: Hayden Cartagena MD #### HBS, GLYHGB, TREP, AHCV, HIVCMB, LISA #### [address] [place] [address] Cad Engineer: Claude Gonzalez MD Hematocrit (Bld) [Volume fraction] 36.2 % Low 36.3-47.1 [facility] Comment on above: Performed By: #### C DP #### [address] [place] [phone] Cad Engineer: Hayden Cartagena MD #### HBS, GLYHGB, TREP, AHCV, HIVCMB, LISA #### [address] [address] Cad Engineer: Claude Gonzalez MD Hemoglobin (Bld) [Mass/Vol] 12.1 g/dL Normal 11.9-15.1 [facility] Comment on above: Performed By: #### C DP #### [address] [place] [address] Cad Engineer: Hayden Cartagena MD #### HBS, GLYHGB, TREP, AHCV, HIVCMB, LISA #### [place] [address] Cad Engineer: Claude Gonzalez MD Immature granulocytes/100 WBC (Bld) 0 % Normal 0 [facility] Comment on above: Performed By: #### C DP #### [address] [place] [address] Cad Engineer: Hayden Cartagena MD #### HBS, GLYHGB, TREP, AHCV, HIVCMB, LISA #### [place] [address] Cad Engineer: Claude Gonzalez MD Lymphocytes (Bld) [#/Vol] 1.62 10*3/uL Normal 1.10-3.70 [facility] Comment on above: Performed By: #### C DP #### [address] [place] [phone] Cad Engineer: Hayden Cartagena MD #### HBS, GLYHGB, TREP, AHCV, HIVCMB, LISA #### [place] [address] [place], [place] [phone] Cad Engineer: Claude Gonzalez MD Lymphocytes/100 WBC (Bld) 19 % Low 24-43 [facility] Comment on above: Performed By: #### C DP #### [address] [place] [phone] Cad Engineer: Hayden Cartagena MD #### HBS, GLYHGB, TREP, AHCV, HIVCMB, LISA #### [place] [phone] Cad Engineer: Claude Gonzalez MD MCH (RBC) [Entitic mass] 32.1 pg Normal 25.2-33.5 [facility] Comment on above: Performed By: #### C DP #### [address] [place] [phone] Cad Engineer: Hayden Cartagena MD #### HBS, GLYHGB, TREP, AHCV, HIVCMB, LISA #### [place] [phone] Cad Engineer: Claude Gonzalez MD MCHC (RBC) [Mass/Vol] 33.4 g/dL Normal 28.4-34.8 [facility] Comment on above: Performed By: #### C DP #### [address] [place] [phone] Cad Engineer: Hayden Cartagena MD #### HBS, GLYHGB, TREP, AHCV, HIVCMB, LISA #### [place] [address] [place], [place] [phone] Cad Engineer: Claude Gonzalez MD MCV (RBC) [Entitic vol] 96.0 fL Normal 82.6-102.9 M [facility] Comment on above: Performed By: #### C DP #### [address] [place] [phone] Cad Engineer: Hayden Cartagena MD #### HBS, GLYHGB, TREP, AHCV, HIVCMB, LISA #### [address] [phone] Cad Engineer: Claude Gonzalez MD Monocytes (Bld) [#/Vol] 0.51 10*3/uL Normal 0.10-1.20 [facility] Comment on above: Performed By: #### C DP #### [address] [place] [phone] Cad Engineer: Hayden Cartagena MD #### HBS, GLYHGB, TREP, AHCV, HIVCMB, LISA #### [address] [address] Cad Engineer: Claude Gonzalez MD Monocytes/100 WBC (Bld) 6 % Normal 3-12 M [facility] Comment on above: Performed By: #### C DP #### [address] [place] [phone] Cad Engineer: Hayden Cartagena MD #### HBS, GLYHGB, TREP, AHCV, HIVCMB, LISA #### [address] [address] Cad Engineer: Claude Gonzalez MD Neutrophil (Seg) 75 % High 36-65 [facility] Comment on above: Performed By: #### C DP #### [address] [place], [place] [phone] Cad Engineer: Hayden Cartagena MD #### HBS, GLYHGB, TREP, AHCV, HIVCMB, LISA #### [address] [phone] Cad Engineer: Claude Gonzalez MD NRBC Automated 0.0 per 100 WBC Normal 0.0 [facility] Comment on above: Performed By: #### C DP #### [address] [place] [phone] Cad Engineer: Hayden Cartagena MD #### HBS, GLYHGB, TREP, AHCV, HIVCMB, LISA #### [address] [phone] Cad Engineer: Claude Gonzalez MD Platelet mean volume (Bld) [Entitic vol] 10.3 fL Normal 8.1-13.5 [facility] Comment on above: Performed By: #### C DP #### [address] [place] [phone] Cad Engineer: Hayden Cartagena MD #### HBS, GLYHGB, TREP, AHCV, HIVCMB, LISA #### [address] [phone] Cad Engineer: Claude Gonzalez MD Platelets (Bld) [#/Vol] 201 10*3/uL Normal 138-453 [facility] Comment on above: Performed By: #### C DP #### [address] [place] [phone] Cad Engineer: Hayden Cartagena MD #### HBS, GLYHGB, TREP, AHCV, HIVCMB, LISA #### [address] [phone] Cad Engineer: Claude Gonzalez MD RBC (Bld) [#/Vol] 3.77 10*6/uL Low 3.95-5.11 [facility] Comment on above: Performed By: #### C DP #### [address] [place] [phone] Cad Engineer: Hayden Cartagena MD #### HBS, GLYHGB, TREP, AHCV, HIVCMB, LISA #### [facility] [address] [place], [place] [phone] Cad Engineer: Claude Gonzalez MD WBC (Bld) [#/Vol] 8.4 10*3/uL Normal 3.5-11.3 [facility] Comment on above: Performed By: #### C DP #### [address] [place] [address] Cad Engineer: Hayden Cartagena MD #### HBS, GLYHGB, TREP, AHCV, HIVCMB, LISA #### [place] [address] [place] [address] Cad Engineer: Claude Gonzalez MD Hemoglobin A1Con 05-01-2023 Average glucose Estimated from glycated hemoglobin (Bld) [Mass/Vol] 85 mg/dL [facility] Comment on above: The ADA and AACC rec ommend providing the estimated average glucose result to permit better patient understanding of their HBA1c result. HbA1c (Bld) [Mass fraction] 4.6 % 4.0 - 6.0 % [facility] Glucose [Mass/Vol] 85 mg/dL Normal [facility] Comment on above: Result Comment: The ADA and AACC recommend providing the estimated average glucose result to permit better patient understanding of their HBA1c result. Performed By: #### C DP #### [address] [place] [address] Cad Engineer: Hayden Cartagena MD #### HBS, GLYHGB, TREP, AHCV, HIVCMB, LISA #### [facility] [address] [place], [place] [phone] Cad Engineer: Claude Gonzalez MD HbA1c (Bld) [Mass fraction] 4.6 % Normal 4.0-6.0 [facility] Comment on above: Performed By: #### C DP #### [address] [place], [place] [address] Cad Engineer: Hayden Cartagena MD #### HBS, GLYHGB, TREP, AHCV, HIVCMB, LISA #### [place] [address] [place], [place] [phone] Cad Engineer: Claude Gonzalez MD Hep B Surf Agon 05-01-2023 Hep B Surf Ag Non-Reactive Normal [facility] Comment on above: Performed By: #### C DP #### [address] [place] [address] Cad Engineer: Hayden Cartagena MD #### HBS, GLYHGB, TREP, AHCV, HIVCMB, LISA #### [address] [phone] Cad Engineer: Claude Gonzalez MD Hep C Abon 05-01-2023 Hep C Ab Non-Reactive Normal [facility] Comment on above: Result Comment: The [...] HCV RNA by PCR. Performed By: #### C DP #### [address] [place] [address] Cad Engineer: Hayden Cartagena MD #### HBS, GLYHGB, TREP, AHCV, HIVCMB, LISA #### [place] [address] [place], [place] [phone] Cad Engineer: Claude Gonzalez MD Hepatitis B Surface Antigeno n 05-01-2023 HBV surface Ag IA Ql Non-Reactive NONREACTIVE B ON [facility] Hepatitis C Antibodyon 04-30 HCV Ab IA Ql Non-Reactive NONREACTIVE [facility] Comment on above: The hepatitis C [...] RNA by PCR. No Panel Informationon 04-30 [facility] Rubella Ab, IgGon 05-01-2023 Rubella Ab, IgG >500.0 [facility] Comment on above: Result Comment: REFERENCE RANGE: <5.0 NON-REACTIVE (non-immune) 5.0 TO 9.9 EQUIVOCAL >=10.0 REACTIVE (immune) Performed By: #### C DP #### [facility] [address] [place] [address] Cad Engineer: Hayden Cartagena MD #### HBS, GLYHGB, TREP, AHCV, HIVCMB, LISA #### [address] [address] Cad Engineer: Claude Gonzalez MD Rubella antibody, IgGon Rubella virus IgG IA Ql IU/mL B [facility] Comment on above: REFERENCE RANGE: <5.0 NON-REACTIVE (non-immune) 5.0 TO 9.9 EQUIVOCAL >=10.0 REACTIVE (immune) [facility] TYPE AND SCREENon 05-01-2023 ABO and Rh group Nom (Bld) Blood group O Rh(D) negative [facility] Blood Bank Sample Expiration 05/04/2023,2359 [facility] Blood group antibodies identified Nom Negative [facility] Type + Screenon 05-01-2023 Type + Screen Sample Expiration 05/04/2023,2359 ABO/Rh(D) O NEGATIVE Antibody Screen NEGATIVE [facility] Comment on above: Performed By: #### T YS #### [facility] [address] [place] [address] Cad Engineer: Hayden Cartagena MD CBC with Auto Differentialon 08-03-2022 Basophils (Bld) [#/Vol] 0.04 10*3/uL [facility] Basophils/100 WBC (Bld) 0 % 0 - 2 % B ON [facility] Eosinophils (Bld) [#/Vol] [facility] Eosinophils/100 WBC (Bld) 0 % Low 1 - 4 % [facility] Erythrocyte distribution width (RBC) [Ratio] 12.2 % 11.8 - 14.4 % [facility] Hematocrit (Bld) [Volume fraction] 39.4 % 36.3 - 47.1 % [facility] Hemoglobin (Bld) [Mass/Vol] 13.2 g/dL 11.9 - 15.1 g/dL [facility] Immature granulocytes (Bld) [#/Vol] [facility] Immature granulocytes/100 WBC (Bld) 0 % 0 [facility] Interpretation and review of laboratory results Abnormal [facility] Lymphocytes/100 WBC (Bld) 17 % Low 24 - 43 % [facility] Lymphocytes/100 WBC (Bld) 1.86 % [facility] MCH (RBC) [Entitic mass] 32.1 pg 25.2 - 33.5 pg [facility] MCHC (RBC) [Mass/Vol] 33.5 g/dL 28.4 - 34.8 g/dL [facility] MCV (RBC) [Entitic vol] 95.9 fL 82.6 - 102.9 fL [facility] Monocytes/100 WBC (Bld) 4 % 3 - 12 % [facility] Monocytes/100 WBC (Bld) 0.42 % [facility] Neutrophils/100 WBC (Bld) 79 % High 36 - 65 % [facility] NRBC Automated 0.0 0.0 per 100 WBC [facility] Platelet mean volume (Bld) [Entitic vol] 10.5 fL 8.1 - 13.5 fL [facility] Platelets (Bld) [#/Vol] 213 10*3/uL [facility] RBC (Bld) [#/Vol] 4.11 10*6/uL 3.95 - 5.1 1 m/uL [facility] Segmented neutrophils/100 WBC (Bld) 8.49 % High [facility] WBC other (Bld) [#/Vol] 10.8 B ON [facility] CMPon 08-03-2022 Albumin [Mass/Vol] 4.6 g/dL 3.5 - 5.2 g/dL [facility] Albumin/Globulin [Mass ratio] 1.5 {ratio} 1.0 - 2.5 [facility] ALP [Catalytic activity/Vol] 79 U/L 35 - 104 U/L [facility] ALT [Catalytic activity/Vol] 9 U/L 5 - 33 U/L [facility] Anion gap [Moles/Vol] 11 mmol/L 9 - 17 mmol/L [facility] AST [Catalytic activity/Vol] 13 U/L NINF - 32 U/L [facility] Bilirubin [Mass/Vol] 1.1 mg/dL 0.3 - 1 .2 mg/dL [facility] Calcium [Mass/Vol] 10.0 mg/dL 8.6 - 10. 4 mg/dL [facility] Chloride [Moles/Vol] 104 mmol/L 98 - 10 7 mmol/L [facility] CO2 [Moles/Vol] 26 mmol/L 20 - 31 mmol/L [facility] Creatinine [Mass/Vol] 0.68 mg/dL 0.50 - 0.90 mg/dL [facility] GFR/1.73 sq M.predicted MDRD (S/P/Bld) [Vol rate/Area] - PINF [facility] Comment on above: These results are [...] [Mass/Vol] 90 mg/dL 70 - 99 mg/dL [facility] Interpretation and review of laboratory results Abnormal [facility] Potassium [Moles/Vol] 3.4 mmol/L Low 3.7 - 5.3 mmol/L [facility] Protein [Mass/Vol] 7.7 g/dL 6.4 - 8.3 g/dL [facility] Sodium [Moles/Vol] 141 mmol/L 135 - 144 mmol/L [facility] Urea nitrogen [Mass/Vol] 6 mg/dL 6 - 20 mg/dL [facility] Urea nitrogen/Creatinine [Mass ratio] 9 mg/mg 9 - [address] [facility] [address] ABDOMEN PELVIS WO CONTRAS T Additional Contrast? Noneon 08-03-2022 1. No acute infective or inflammatory process. 2. No urinary tract calculi. 3. No bowel obstruction. [facility] EXAMINATION: CT OF THE ABDOMEN AND [...] superficial soft tissues show no acute process. [facility] Cody Gregg MD - 08/03/2022 EXAMINATION: [...] urinary tract calculi. 3. No bowel obstruction. [employer] Work Phone: Radiology Study observation (narrative) [employer] [facility] [employer] Work Phone: CT ABDOMEN PELVIS WO CONTRAS T Additional Contrast? NoneOrdered By: Cody Gregg on 08-03-2022 [employer] Work Phone: Microscopic Urinalysison Bacteria LM Ql (Urine sed) 4+ Abnormal None [facility] Sleep Number Epithelial cells LM.HPF (Urine sed) [#/Area] 10 TO 20 [facility] Interpretation and review of laboratory results Abnormal [facility] Sleep Number RBC LM.HPF (Urine sed) [#/Area] 10 TO 20 [facility] WBC LM.HPF (Urine sed) [#/Area] 20 TO 50 [facility] Urinalysis with Reflex to Cu ltureon 08-03-2022 Bilirubin Ql (U) Negative NEGATIVE [facility] Clarity (U) Cloudy Abnormal Clear [facility] Color (U) Yellow Yellow [facility] Glucose Test strip (U) [Mass/Vol] Negative NEGATIVE [facility] Hemoglobin Auto test strip Ql (U) 3+ Abnormal NEGATIVE [facility] Interpretation and review of laboratory results Abnormal [facility] Ketones (U) [Mass/Vol] Negative NEGATIVE [facility] Leukocyte esterase Test strip Ql (U) SMALL Abnormal NEGATIVE [facility] Nitrite Ql (U) Positive Abnormal NEGATIVE [facility] pH (U) 6.0 [pH] 5.0 - 9.0 [facility] Protein (U) [Mass/Vol] 2+ Abnormal NEGATIVE [facility] Specific gravity (U) [Rel density] 1.025 High 1.010 - 1.020 [facility] Urobilinogen Qn (U) Normal Normal [facility] hCG, quantitative, on 08-03-2022 hCG Quant NINF [facility] Comment on above: Non-preg premeno <=5 Postmeno <=8 Male <=3 If HCG results do not concur with clinical observations, additional testing to confirm results is recommended. [facility] JASMINA DIGITAL DIAGNOSTIC BILATERALon 06-03-2022 Radiology Study observation (narrative) [facility] Work Phone: No Panel Informationon 06-03 1. Negative bilateral mammogram. 2. No evidence for a discrete abscess or cellulitis in the periareolar right breast, for which clinical follow-up is recommended. BI-RADS 2 BIRADS: BIRADS - CATEGORY 2 Benign Findings. OVERALL ASSESSMENT - BENIGN A letter of notification will be sent to the patient regarding the results. [employer] recommends annual mammograms for women 40 years and older. [facility] RIS CONSOLIDATED EXAMINATION: DIAGNOSTIC DIGITAL BILATERAL BREASTS MAMMOGRAM [...] subcutaneous edema appreciated. No duct dilatation identified. [facility] No Panel InformationOrdered By: Matt Sharma on 06-03-2022 [employer] Work Phone: US BREAST LIMITED RIGHTon Radiology Study observation (narrative) [employer] Work Phone: CBC with Auto Differentialon 04-24-2022 Absolute Eos # [facility] S [employer] Absolute Immature Granulocyte 0.05 [facility] [employer] Absolute Lymph # 0.56 Low [facility] [employer] Absolute Otoe # 0.78 [facility] [employer] Basophils (Bld) [#/Vol] 0.04 10*3/uL [facility] [employer] Basophils/100 WBC (Bld) 0 % 0 - 2 % B ON [facility] [employer] Eosinophils/100 WBC (Bld) 0 % Low 1 - 4 % [facility] [employer] Hematocrit (Bld) [Volume fraction] 43.7 % 36.3 - 47.1 % [facility] [employer] Hemoglobin (Bld) [Mass/Vol] 15.6 g/dL High 11.9 - 15.1 g/dL [facility] Immature granulocytes/100 WBC (Bld) 0 % 0 [facility] Interpretation and review of laboratory results Abnormal [facility] Lymphocytes/100 WBC (Bld) 4 % Low 24 - 43 % [facility] MCH (RBC) [Entitic mass] 33.1 pg 25.2 - 33.5 pg [facility] MCHC (RBC) [Mass/Vol] 35.7 g/dL High 28.4 - 34.8 g/dL [facility] MCV (RBC) [Entitic vol] 92.8 fL 82.6 - 102.9 fL [facility] Monocytes/100 WBC (Bld) 5 % 3 - 12 % B ON [facility] NRBC Automated 0.0 0.0 per 100 WBC [facility] Platelet distribution width (Bld) [Ratio] 12.3 % 11.8 - 14.4 % [facility] Platelet mean volume (Bld) [Entitic vol] 10.5 fL 8.1 - 13.5 fL [facility] Platelets (Bld) [#/Vol] 174 10*3/uL [facility] RBC (Bld) [#/Vol] 4.71 10*6/uL 3.95 - 5.1 1 m/uL [facility] Segmented neutrophils/100 WBC (Bld) 91 % High 36 - 65 % [facility] Segs Absolute 13.82 High [facility] WBC (Bld) [#/Vol] 15.3 10*3/uL High [facility] CMPon 04-24-2022 Albumin [Mass/Vol] 4.8 g/dL 3.5 - 5.2 g/dL [facility] Albumin/Globulin [Mass ratio] 1.6 {ratio} 1.0 - 2.5 [facility] ALP [Catalytic activity/Vol] 87 U/L 35 - 104 U/L [facility] ALT [Catalytic activity/Vol] 19 U/L 5 - 33 U/L [facility] [facility] Anion gap [Moles/Vol] 17 mmol/L 9 - 17 mmol/L [facility] AST [Catalytic activity/Vol] 23 U/L NINF - 32 U/L [facility] Bilirubin [Mass/Vol] 1.0 mg/dL 0.3 - 1 .2 mg/dL [facility] Calcium [Mass/Vol] 10.4 mg/dL 8.6 - 10. 4 mg/dL [facility] Chloride [Moles/Vol] 105 mmol/L 98 - 10 7 mmol/L [facility] CO2 [Moles/Vol] 19 mmol/L Low 20 - 31 mmol/L [facility] Creatinine [Mass/Vol] 0.84 mg/dL 0.50 - 0.90 mg/dL [facility] GFR/1.73 sq M.predicted MDRD (S/P/Bld) [Vol rate/Area] - PINF [facility] Comment on above: These results are [...] 151 mg/dL High 70 - 99 mg/dL [facility] Interpretation and review of laboratory results Abnormal [facility] Potassium [Moles/Vol] 3.9 mmol/L 3.7 - 5.3 mmol/L [facility] Protein [Mass/Vol] 7.8 g/dL 6.4 - 8.3 g/dL [facility] Sodium [Moles/Vol] 141 mmol/L 135 - 144 mmol/L [facility] Urea nitrogen [Mass/Vol] 9 mg/dL 6 - 20 mg/dL [facility] Urea nitrogen/Creatinine (Bld) [Mass ratio] 11 9 - [address] [facility] [address] ABDOMEN PELVIS W IV CONTR AST Additional Contrast? Noneon 04-24-2022 Fluid within the colon is consistent with a diarrheal illness clinically. Otherwise, no acute intra-abdominal or pelvic abnormality [facility] EXAMINATION: CT OF THE [...] pathologic adenopathy. Bones/Soft Tissues: No acute abnormality [facility] Rogelio Lima MD - 04/24/2022 EXAMINATION: [...] Otherwise, no acute intra-abdominal or pelvic abnormality [facility] [employer] Work Phone: Radiology Study observation (narrative) [facility] [employer] Work Phone: CT ABDOMEN PELVIS W IV CONTR AST Additional Contrast? NoneOrdered By: Rogelio Lima on 04-24-2022 [facility] Work Phone: Lactic Acidon 04-24-2022 Lactate (P samantha) [Moles/Vol] 2.1 mmol/L 0.5 - 2.2 mmol/L [facility] Lipaseon 04-24-2022 Lipase [Catalytic activity/Vol] 24 U/L 13 - 60 U/L [facility] Microscopic Urinalysison Bacteria, UA 1+ Abnormal None [facility] Epithelial Cells UA 5 TO 10 [facility] Interpretation and review of laboratory results Abnormal [facility] Mucus, UA 1+ Abnormal None [facility] RBC clumps Auto (Urine sed) [#/Area] None [facility] WBC, UA 0 TO 2 [facility] No Panel Informationon 04-24 [facility] Urinalysison 04-24-2022 Bilirubin Urine Negative NEGATIVE [facility] Color, UA Yellow Yellow [facility] Glucose Auto test strip (U) [Mass/Vol] Negative NEGATIVE [facility] Interpretation and review of laboratory results Abnormal [facility] Ketones (U) [Mass/Vol] 2+ Abnormal NEGATIVE [facility] Leukocyte esterase Auto test strip Ql (U) Negative NEGATIVE [facility] Nitrite Auto test strip Ql (U) Negative NEGATIVE [facility] Protein (U) [Mass/Vol] 5.0 - 9.0 [facility] Protein (U) [Mass/Vol] Negative NEGATIVE [facility] Specific [place], UA 1.010 1.010 - 1.020 B ON [facility] Turbidity UA SLIGHTLY CLOUDY Abnormal Clear [facility] Urine Hgb Negative NEGATIVE [facility] Urobilinogen, Urine Normal Normal [facility] , urineon 3 Beta HCG ( test) Ql (U) Negative NEGATIVE [facility] Comment on above: Specimens with hCG l evels near the threshold of the test (25 mIU/mL) may give a negative or indeterminate result. In such cases, another test should be performed with a new specimen in 48-72 hours. If early is suspected clinically in this setting, correlation with quantitative serum b-hCG level is suggested. [employer] has confirmed the use of plasma for this test. This has not been cleared or approved by the U.S. Food and Drug Administration. The FDA has determined that such clearance is not necessary. [facility] Cholesterol [Mass/volume] in Serum or PlasmaOrdered By: Feliberto Faust on 10-27-2021 Cholesterol [Mass/Vol] 102 mg/dL 140-200 [facility] Comment on above: Chol less than 200 m g/dl low risk Chol 201-239 mg/dl borderline risk Chol 240 mg/dl and greater high risk Cholesterol in LDL Calc [Mas s/Vol]Ordered By: Feliberto Faust on 10-27-2021 Cholesterol in LDL [Mass/Vol] 58 mg/dL 0-100 [facility] Comment on above: LDL ATP III CLASSIFI CATION LDL less than 100 mg/dL Optimal LDL 100-129 mg/dL Near or above optimal LDL 130-159 mg/dL Borderline high LDL 160-189 mg/dL High LDL greater than 189 mg/dL Very high Cholesterol in VLDL Calc [Ma ss/Vol]Ordered By: Feliberto Faust on 10-27-2021 Cholesterol in VLDL [Mass/Vol] 13 mg/dL [facility] ECG 12 lead ECGon 10-27-2021 ECG 12 lead ECG [facility] Main [place] [address] [place] [id number] Electrocardiograph Report Signed Patient: Kiley Vaughn MR#: [id number] 7 : 1995 Acct:[id number] Age/Sex: 26 / F ADM Date: 10/26/21 Loc: Room: 3M7705-2 Type: DIS IN Attending Dr: Feliberto Faust [...] : 416 ms Sinus bradycardia with short RI Otherwise normal ECG When compared with ECG of 10-APR-2019 09:44, Vent. rate has decreased BY 29 BPM Confirmed by PAYAM LIVINGSTON DO ([id number]) on 10/27/2021 1:03:16 PM Referred By: Electronically Signed By:PAYAM LIVINGSTON DO Transcribed By: MUS Signed By Payam Livingston DO 10/27 1303 Normal [facility] Lipid Panelon 10-27-2021 Cholesterol [Mass/Vol] 102 mg/dL Low 140-200 [facility] Comment on above: Result Comment: Chol less than 200 mg/dl low risk Chol 201-239 mg/dl borderline risk Chol 240 mg/dl and greater high risk Performed By: #### L IPID, TSH3 wRFLX, [id number] #### [facility] [address] [place] [id number] [place] Cholesterol in HDL [Mass/Vol] 30 mg/dL Low 35-85 [facility] Comment on above: Result Comment: HDL CHOL ATP-III CLASSIFICATION Cardiovascular Risk HDL > or equal to 60 mg/dL LOW HDL < 40 mg/dL HIGH Performed By: #### L IPID, TSH3 wRFLX, [id number] #### [facility] [address] [place] [address] [place] Cholesterol.total/Fanny sterol in HDL [Mass ratio] 3.4 {ratio} Normal <5.0 [facility] Comment on above: Performed By: #### L IPID, TSH3 wRFLX, [id number] #### [facility] [address] LDL Cholesterol,Calculated 58 mg/dL Normal 0-100 [facility] Comment on above: Result Comment: LDL ATP III CLASSIFICATION LDL less than 100 mg/dL Optimal LDL 100-129 mg/dL Near or above optimal LDL 130-159 mg/dL Borderline high LDL 160-189 mg/dL High LDL greater than 189 mg/dL Very high Performed By: #### L IPID, TSH3 wRFLX, [id number] #### [facility] [address] Triglyceride w/Reflex 68 mg/dL Normal 35-149 [facility] Comment on above: Result Comment: TRIG ATP III CLASSIFICATION TRIG less than 150 mg/dL Normal TRIG 150-199 mg/dL Borderline high TRIG 200-500 mg/dL High TRIG greater than 500 mg/dL Very high Standard traceable to the Center for Disease Conrtrol and Prevention (CDC) test method. Performed By: #### L IPID, TSH3 wRFLX, [id number] #### [facility] [address] VLDL CHOLESTEROL 13 mg/dL Normal [facility] Comment on above: Performed By: #### L IPID, TSH3 wRFLX, [id number] #### [facility] [address] No Panel InformationOrdered By: Feliberto Faust on 10-27-2021 25-Hydroxy Vitamin D Total 36.4 ng/mL 30-100 [facility] Comment on above: VITAMIN D STATUS 25( [...] Cholesterol in HDL [Mass/Vol] 30 mg/dL 35-85 [facility] Comment on above: HDL CHOL ATP-III CLA SSIFICATION Cardiovascular Risk HDL > or equal to 60 mg/dL LOW HDL < 40 mg/dL HIGH Serum or plasma total choles terol/high density lipoprotein (HDL) cholesterol mass ratOrdered By: Feliberto Salehus on 10-27-2021 Cholesterol.total/Fanny sterol in HDL [Mass ratio] 3.4 {ratio} <5.0 [facility] TSH DL <= 0.005 mIU/L QnOrde red By: Felibertojuancho Faust on 10-27-2021 TSH Qn 1.28 m[IU]/L 0.45-5.33 [facility] Thyroid Stim Hormone w/Rflxo n 10-27-2021 Thyroid Stim Hormone w/Rflx 1.28 u[iU]/mL Normal 0.45-5.33 [facility] Comment on above: Performed By: #### L IPID, TSH3 wRFLX, [id number] #### [address] Triglyceride [Mass/volume] i n Serum or PlasmaOrdered By: Feliberto Govind on 10-27-2021 Triglyceride [Mass/Vol] 68 mg/dL 35-149 [facility] Comment on above: TRIG ATP III CLASSIF ICATION TRIG less than 150 mg/dL Normal TRIG 150-199 mg/dL Borderline high TRIG 200-500 mg/dL High TRIG greater than 500 mg/dL Very high Standard traceable to the Center for Disease Conrtrol and Prevention (CDC) test method. Vitamin D 25 Hydroxy Totalon 10-27-2021 Vitamin D 25 Hydroxy Total 36.4 ng/mL Normal 30-100 [facility] Comment on above: Result Comment: KELSEY MIN D STATUS 25(OH)VITAMIN D RANGE (ng/mL) Deficient <20 Insufficient 20 to <30 Sufficient 30 to 100 Reference: Kath MF,Ramón NC, Teetee DAVIS, et al. Evaluation,treatment, and prevention of vitamin D deficiency; an Endocrine Society clinical practice guideline. JCEM. 2010; 96(7):1911-30. PERFORMED BY: [place] [address] PATHOLOGIST [employer] JAMES MCNAIR M.D. Performed By: #### C BC, ETOH, CMP #### [facility] [address] [place] [address] [place] Albumin [Mass/volume] in Ser um or PlasmaOrdered By: Ed Amaral on 10-26-2021 Albumin [Mass/Vol] 4.0 g/dL 3.2-5.5 [facility] Amphetamine Screen Ql (U)Ord ered By: Ed Amaral on 10-26-2021 Amphetamines Ql (U) Negative Negative [facility] Automated erythrocytes count in urine sediment (number/area)Ordered By: Ed Amaral on 10-26-2021 RBC Auto (Urine sed) [#/Area] 0-1 [HPF] 0-4 [facility] Automated leukocytes count i n urine sediment (number/area)Ordered By: Ed Amaral on 10-26-2021 WBC Auto (Urine sed) [#/Area] 1-2 [HPF] 0-4 [facility] Automated urine color determ inationOrdered By: Ed Amaral on 10-26-2021 Color (U) Yellow Normal Yellow [facility] Comment on above: Order Comment: Name Collection Type:: Clean-Voided Midstream Performed By: #### S OFIANEG, URDS, ADDONUAPLUS, UHCG, COVID-19 FELI #### [facility] [address] [place] [address] [place] Barbiturates [Presence] in U rineOrdered By: Ed Amaral on 10-26-2021 Barbiturates Ql (U) Negative Negative [facility] Basophils Auto (Bld) [#/Vol] Ordered By: Ed Amaral on 10-26-2021 Basophils (Bld) [#/Vol] 0.1 10*3/uL 0.0-0.2 [facility] Basophils/100 WBC Auto (Bld) Ordered By: Ed Amaral on 10-26-2021 Basophils/100 WBC (Bld) 0.8 % . F [facility] Benzodiazepines [Presence] i n UrineOrdered By: Ed Amaral on 10-26-2021 Benzodiazepines Ql (U) Negative Negative [facility] Bilirubin Test strip Ql (U)O rdered By: Ed Ralphclaudette on 10-26-2021 Bilirubin Ql (U) Negative Negative [facility] Blood hemoglobin measurement (mass/volume)Ordered By: Ed Cristin on 10-26-2021 Hemoglobin (Bld) [Mass/Vol] 13.3 g/dL 11.8-15.4 [facility] Blood leukocytes automated c ount (number/volume)Ordered By: Ed Amaral on 10-26-2021 WBC (Bld) [#/Vol] 10.2 10*3/uL 4.5-11.0 [facility] COVID-19 Antigenon 2 COVID-19 Antigen Healthcare [...] developed and its performance characteristic determined by [employer] and validated at [facility]. This test has not been FDA cleared [...] for SARS Antigen by ERNESTO PERFORMED BY: [place] [address] PATHOLOGIST [employer] JAMES MCNAIR M.D. Normal [facility] Comment on above: Performed By: #### S OFIANEG, URDS, ADDONUAPLUS, UHCG, COVID-19 FELI #### [address] COVID-19 SOFIAOrdered By: Archie Amaral on 10-26-2021 SARS-CoV+SARS-CoV-2 (COVID-19) Ag IA.rapid Ql (Resp) Negative Negative [facility] Comment on above: This is a duplicate Feli SARS Antigen (ERNESTO) result to be used for statistical tracking purpose only. Cannabinoids [Presence] in U rine by Screen methodOrdered By: Ed Amaral on 10-26-2021 Cannabinoids Screen Ql (U) Positive Negative [facility] Comment on above: These are unconfirme d results and should not be used for legal purposes. Drug Cut-Off Concentration: AMPH 1000 ng/mL SANCHEZ 200 ng/mL RENZO 200 ng/mL COCM 300 ng/mL OP 300 ng/mL PCP 25 ng/mL THC 20 ng/mL Complete Blood Count Auto Di ffon 10-26-2021 Basophils (Bld) [#/Vol] 0.1 10*3/uL Normal 0.0-0.2 [facility] Comment on above: Result Comment: PERF ORMED BY: [place] [address] PATHOLOGIST [employer] JAMES MCNAIR M.D. Performed By: #### C BC, ETOH, CMP #### [place] [address] [place] Basophils/100 WBC (Bld) 0.8 % Normal . F [facility] Comment on above: Performed By: #### C BC, ETOH, CMP #### [place] [address] [place] Eosinophils (Bld) [#/Vol] 0.2 10*3/uL Normal 0.0-0.45 [facility] Comment on above: Performed By: #### C BC, ETOH, CMP #### [address] Eosinophils/100 WBC (Bld) 1.9 % Normal . [facility] Comment on above: Performed By: #### C BC, ETOH, CMP #### [address] Erythrocyte distribution width (RBC) [Ratio] 13.0 % Normal 11.9-15.3 [facility] Comment on above: Performed By: #### C BC, ETOH, CMP #### [address] Hematocrit (Bld) [Volume fraction] 39.1 % Normal 34.0-46.4 [facility] Comment on above: Performed By: #### C BC, ETOH, CMP #### [address] Hemoglobin (Bld) [Mass/Vol] 13.3 g/dL Normal 11.8-15.4 [facility] Comment on above: Performed By: #### C BC, ETOH, CMP #### [address] Lymphocytes (Bld) [#/Vol] 2.2 10*3/uL Normal 1.00-4.8 [facility] Comment on above: Performed By: #### C BC, ETOH, CMP #### [address] Lymphocytes/100 WBC (Bld) 21.5 % Normal . [facility] Comment on above: Performed By: #### C BC, ETOH, CMP #### [address] MCH (RBC) [Entitic mass] 32.9 pg Normal 24.7-34.3 [facility] Comment on above: Performed By: #### C BC, ETOH, CMP #### [place] [address] [place] MCV (RBC) [Entitic vol] 96.5 fL Normal 80-100 [facility] Comment on above: Performed By: #### C BC, ETOH, CMP #### [facility] [address] Mean Corpuscular HGB Conc 34.1 g/dL Normal 32.0-35.0 [facility] Comment on above: Performed By: #### C BC, ETOH, CMP #### [facility] [address] [place] [address] [place] Monocytes (Bld) [#/Vol] 0.6 10*3/uL Normal 0.0-0.8 [facility] Comment on above: Performed By: #### C BC, ETOH, CMP #### [facility] [address] Monocytes/100 WBC (Bld) 6.2 % Normal . F [facility] Comment on above: Performed By: #### C BC, ETOH, CMP #### [facility] [address] [place] [address] [place] Neutrophils (Bld) [#/Vol] 7.1 10*3/uL Normal 1.8-7.7 [facility] Comment on above: Performed By: #### C BC, ETOH, CMP #### [facility] [address] [place] [address] [place] Neutrophils/100 WBC (Bld) 69.6 % Normal . [facility] Comment on above: Performed By: #### C BC, ETOH, CMP #### [facility] [address] [place] [address] [place] Nucleated RBC/100 WBC (Bld) [Ratio] 0.0 % Normal 0-0.5 [facility] Comment on above: Performed By: #### C BC, ETOH, CMP #### [facility] [address] Platelet mean volume (Bld) [Entitic vol] 9.0 fL Normal 6.3-10.7 [facility] Comment on above: Performed By: #### C BC, ETOH, CMP #### [facility] [address] Platelets (Bld) [#/Vol] 173 10*3/uL Normal 150-450 [facility] Comment on above: Performed By: #### C BC, ETOH, CMP #### [facility] [address] [place] [address] RBC (Bld) [#/Vol] 4.05 10*6/uL Normal 3.60-5.00 [facility] Comment on above: Performed By: #### C BC, ETOH, CMP #### [facility] [address] [place] [address] WBC (Bld) [#/Vol] 10.2 10*3/uL Normal 4.5-11.0 [facility] Comment on above: Performed By: #### C BC, ETOH, CMP #### [address] Comprehensive Metabolic Pane v[place]a 10-26-2021 Albumin [Mass/Vol] 4.0 g/dL Normal 3.2-5.5 [facility] Comment on above: Performed By: #### C BC, ETOH, CMP #### [facility] [address] [place] [address] Albumin/Globulin [Mass ratio] 1.5 {ratio} Normal [facility] Comment on above: Performed By: #### C BC, ETOH, CMP #### [facility] [address] [place] [address] ALP [Catalytic activity/Vol] 55 U/L Normal 32-92 [facility] Comment on above: Performed By: #### C BC, ETOH, CMP #### [facility] [address] [place] [address] ALT [Catalytic activity/Vol] 20 U/L Normal 10-60 [facility] Comment on above: Performed By: #### C BC, ETOH, CMP #### [facility] [address] [place] [address] Anion gap [Moles/Vol] 10.1 mmol/L Normal 6.0-15.0 [facility] Comment on above: Performed By: #### C BC, ETOH, CMP #### [facility] [address] [place] [address] [place] AST [Catalytic activity/Vol] 17 U/L Normal 10-42 [facility] Comment on above: Performed By: #### C BC, ETOH, CMP #### [facility] [address] [place] [address] [place] Bilirubin [Mass/Vol] 0.4 mg/dL Normal 0.3-1.2 [facility] Comment on above: Performed By: #### C BC, ETOH, CMP #### [facility] [address] [place] [address] [place] Calcium [Mass/Vol] 9.5 mg/dL Normal 8.2-10.2 [facility] Comment on above: Performed By: #### C BC, ETOH, CMP #### [facility] [address] [place] [address] [place] Chloride [Moles/Vol] 104 mmol/L Normal 95-114 [facility] Comment on above: Performed By: #### C BC, ETOH, CMP #### [facility] [address] [place] [address] [place] CO2 [Moles/Vol] 25.3 mmol/L Normal 22.0-30.0 [facility] Comment on above: Performed By: #### C BC, ETOH, CMP #### [facility] [address] [place] [address] [place] Creatinine [Mass/Vol] 0.81 mg/dL Normal 0.44-1.03 [facility] Comment on above: Performed By: #### C BC, ETOH, CMP #### [facility] [address] [place] [address] [place] Creatinine Clr Calc Pharmacy 97.62 Normal [facility] Comment on above: Result Comment: PERF ORMED BY: [place] [address] PATHOLOGIST [employer] BU[employer]ER JAMES MNCAIR M.D. Performed By: #### C BC, ETOH, CMP #### [facility] [address] [place] [address] [place] Estimated GFR ( Nette > 60 Normal [facility] Comment on above: Result Comment: GFR estimated reference range: According to KDOQI guidelines, <60 ml/min/1.73m2 is sufficient to diagnose a patient with chronic kidney disease. Performed By: #### C BC, ETOH, CMP #### [facility] [address] Estimated GFR (Non- Am > 60 Normal [facility] Comment on above: Performed By: #### C BC, ETOH, CMP #### [facility] [address] Globulin (S) [Mass/Vol] 2.7 g/dL Normal [facility] Comment on above: Performed By: #### C BC, ETOH, CMP #### [address] Glucose [Mass/Vol] 98 mg/dL Normal 70-100 [facility] Comment on above: Result Comment: [place] Glucose Reference Range is dependent on time and content of last meal. Glucose of more than 200 mg/dL in a nonstressed, ambulatory subject supports the diagnosis of Diabetes Mellitus. ADA recommended reference range Performed By: #### C BC, ETOH, CMP #### [address] Potassium [Moles/Vol] 3.4 mmol/L Low 3.5-5.1 [facility] Comment on above: Performed By: #### C BC, ETOH, CMP #### [address] Protein [Mass/Vol] 6.7 g/dL Normal 6.1-7.9 [facility] Comment on above: Performed By: #### C BC, ETOH, CMP #### [address] Sodium [Moles/Vol] 136 mmol/L Normal 136-146 [facility] Comment on above: Performed By: #### C BC, ETOH, CMP #### [place] [address] [place] Urea nitrogen [Mass/Vol] 6 mg/dL Low 9-23 [facility] Comment on above: Performed By: #### C BC, ETOH, CMP #### [facility] [address] [place] [address] [place] Creatinine and Glomerular fi ltration rate.predicted panel (S/P/Bld)Ordered By: Ed Amarla on 10-26-2021 Creatinine [Mass/Vol] 0.81 mg/dL 0.44-1.03 [facility] Dipstick and Microscopicon 0 10-26-2021 Appearance (U) Clear Normal Clear [facility] Comment on above: Order Comment: Name Collection Type:: Clean-Voided Midstream Performed By: #### S OFIANEG, URDS, ADDONUAPLUS, UHCG, COVID-19 FELI #### [facility] [address] Bilirubin,Urine Negative Normal Negative [facility] Comment on above: Order Comment: Name Collection Type:: Clean-Voided Midstream Performed By: #### S OFIANEG, URDS, ADDONUAPLUS, UHCG, COVID-19 FELI #### [facility] [address] [place] [address] [place] Glucose Ql (U) Normal Normal Normal [facility] Comment on above: Order Comment: Name Collection Type:: Clean-Voided Midstream Performed By: #### S OFIANEG, URDS, ADDONUAPLUS, UHCG, COVID-19 FELI #### [facility] [address] [place] [address] [place] Ketones Ql (U) Negative Normal Negative [facility] Comment on above: Order Comment: Name Collection Type:: Clean-Voided Midstream Performed By: #### S OFIANEG, URDS, ADDONUAPLUS, UHCG, COVID-19 FELI #### [facility] [address] [place] [address] [place] Leukocyte esterase Test strip Ql (U) 1+ High Negative [facility] Comment on above: Order Comment: Name Collection Type:: Clean-Voided Midstream Performed By: #### S OFIANEG, URDS, ADDONUAPLUS, UHCG, COVID-19 FELI #### [facility] [address] [place] [address] Nitrite,Urine Negative Normal Negative [facility] Comment on above: Order Comment: Name Collection Type:: Clean-Voided Midstream Performed By: #### S OFIANEG, URDS, ADDONUAPLUS, UHCG, COVID-19 FELI #### [facility] [address] [place] [address] Occult Blood,Urine Negative Normal Negative [facility] Comment on above: Order Comment: Name Collection Type:: Clean-Voided Midstream Performed By: #### S OFIANEG, URDS, ADDONUAPLUS, UHCG, COVID-19 FELI #### [facility] [address] [place] [address] Protein,Urine Negative Normal Negative [facility] Comment on above: Order Comment: Name Collection Type:: Clean-Voided Midstream Performed By: #### S OFIANEG, URDS, ADDONUAPLUS, UHCG, COVID-19 FELI #### [facility] [address] [place] [address] RBC LM.HPF (Urine sed) [#/Area] 0 /[HPF] Normal 0-4 [facility] Comment on above: Order Comment: Name Collection Type:: Clean-Voided Midstream Performed By: #### S OFIANEG, URDS, ADDONUAPLUS, UHCG, COVID-19 FELI #### [facility] [address] [place] [address] Specificy [place],Urine 1.005 Normal 1.001-1.030 [facility] Comment on above: Order Comment: Name Collection Type:: Clean-Voided Midstream Performed By: #### S OFIANEG, URDS, ADDONUAPLUS, UHCG, COVID-19 FELI #### [facility] [address] [place] [address] Squamous Epithelial Cell,Urine 1-2 Normal 0-2 [facility] Comment on above: Order Comment: Name Collection Type:: Clean-Voided Midstream Performed By: #### S OFIANEG, URDS, ADDONUAPLUS, UHCG, COVID-19 FELI #### [facility] [address] [place] [address] Urobilinogen,Urine Normal Normal Normal [facility] Comment on above: Order Comment: Name Collection Type:: Clean-Voided Midstream Performed By: #### S OFIANEG, URDS, ADDONUAPLUS, UHCG, COVID-19 FELI #### [address] WBC,Urine 1-2 Normal 0-4 [facility] Comment on above: Order Comment: Name Collection Type:: Clean-Voided Midstream Performed By: #### S OFIANEG, URDS, ADDONUAPLUS, UHCG, COVID-19 FELI #### [address] Drug Screen,Urineon 10-27-19 Amphetamine Screen,Urine Negative Normal Negative [facility] Comment on above: Performed By: #### S OFIANEG, URDS, ADDONUAPLUS, UHCG, COVID-19 FELI #### [facility] [address] [place] [address] Barbiturate Screen,Urine Negative Normal Negative [facility] Comment on above: Performed By: #### S OFIANEG, URDS, ADDONUAPLUS, UHCG, COVID-19 FELI #### [address] Benzodiazepines Screen,Urine Negative Normal Negative [facility] Comment on above: Performed By: #### S OFIANEG, URDS, ADDONUAPLUS, UHCG, COVID-19 FELI #### [address] Cannabinoid Screen,Urine Positive High Negative [facility] Comment on above: Result Comment: Thes e are unconfirmed results and should not be used for legal purposes. Drug Cut-Off Concentration: AMPH 1000 ng/mL SANCHEZ 200 ng/mL RENZO 200 ng/mL COCM 300 ng/mL OP 300 ng/mL PCP 25 ng/mL THC 20 ng/mL PERFORMED BY: [place] [address] PATHOLOGIST [employer]ER JAMES MCNAIR M.D. Performed By: #### S OFIANEG, URDS, ADDONUAPLUS, UHCG, COVID-19 FELI #### [facility] [address] [place] [address] Cocaine Screen,Urine Negative Normal Negative [facility] Comment on above: Performed By: #### S OFIANEG, URDS, ADDONUAPLUS, UHCG, COVID-19 FELI #### [facility] [address] [place] [address] Opiate Screen,Urine Negative Normal Negative [facility] Comment on above: Performed By: #### S OFIANEG, URDS, ADDONUAPLUS, UHCG, COVID-19 FELI #### [facility] [address] [place] [address] Phencyclidine Screen,Urine Negative Normal Negative [facility] Comment on above: Performed By: #### S OFIANEG, URDS, ADDONUAPLUS, UHCG, COVID-19 FELI #### [facility] [address] [place] [address] Eosinophils Auto (Bld) [#/Vo l]Ordered By: Ed Amaral on 10-26-2021 Eosinophils (Bld) [#/Vol] 0.2 10*3/uL 0.0-0.45 [facility] Eosinophils/100 WBC Auto (Bl d)Ordered By: Ed Amaral on 10-26-2021 Eosinophils/100 WBC (Bld) 1.9 % . [facility] Erythrocyte distribution wid th Auto (RBC) [Ratio]Ordered By: Ed Amaral on 10-26-2021 Erythrocyte distribution width (RBC) [Ratio] 13.0 % 11.9-15.3 [facility] Estimated glomerular filtrat ion rate (GFR) non- AmericanOrdered By: Ed Amaral on 10-26-2021 GFR/1.73 sq M.predicted among non-blacks MDRD (S/P/Bld) [Vol rate/Area] > 60 mL/Min [facility] Ethyl Alcohol Profileon 09-29 Ethanol [Mass/Vol] mg/dL Normal [facility] Comment on above: Performed By: #### C BC, ETOH, CMP #### [facility] [address] [place] [address] Percent Ethanol Not performed Normal [facility] Comment on above: Result Comment: PERF ORMED BY: [place] [address] PATHOLOGIST [employer] JAMES MCNAIR M.D. Performed By: #### C BC, ETOH, CMP #### [facility] [address] [place] [address] Globulin Calc (S) [Mass/Vol] Ordered By: Ed Amaral on 10-26-2021 Globulin (S) [Mass/Vol] 2.7 g/dL F [facility] HCG ( test) IA.rapi d Ql (U)Ordered By: Ed Amaral on 10-26-2021 HCG ( test) Ql (U) Negative [facility] HCG,Urineon 10-26-2021 Beta HCG ( test) Ql (U) Negative Normal [facility] Comment on above: Order Comment: Name Collection Type:: Clean-Voided Midstream Result Comment: PERF ORMED BY: [place] [address] PATHOLOGIST [employer] BU[employer] JAMES MCNAIR M.D. Performed By: #### S OFIANEG, URDS, ADDONUAPLUS, UHCG, COVID-19 FLEI #### [facility] [address] [place], [place] [id number] [place] Hematocrit Auto (Bld) [Volum e fraction]Ordered By: Ed Amaral on 10-26-2021 Hematocrit (Bld) [Volume fraction] 39.1 % 34.0-46.4 [facility] Ketones Auto test strip (U) [Mass/Vol]Ordered By: Ed Amaral on 10-26-2021 Ketones (U) [Mass/Vol] Negative Negative [facility] - Drug toxicology Ordered By: Ed Amaral on 10-26-2021 Opiates Ql (U) Negative Negative [facility] Laboratory - Hematology and Cell countsOrdered By: Ed Amaral on 10-26-2021 Nucleated RBC/100 WBC (Bld) [Ratio] 0.0 % 0-0.5 [facility] Lymphocytes Auto (Bld) [#/Vo l]Ordered By: Ed Amaral on 10-26-2021 Lymphocytes (Bld) [#/Vol] 2.2 10*3/uL 1.00-4.8 [facility] Lymphocytes/100 WBC Auto (Bl d)Ordered By: Ed Amaral on 10-26-2021 Lymphocytes/100 WBC (Bld) 21.5 % . [facility] MCH Auto (RBC) [Entitic mass ]Ordered By: Ed Amaral on 10-26-2021 MCH (RBC) [Entitic mass] 32.9 pg 24.7-34.3 [facility] MCHC Auto (RBC) [Mass/Vol]Or dered By: Ed Amaral on 10-26-2021 MCHC (RBC) [Mass/Vol] 34.1 g/dL 32.0-35.0 [facility] MCV Auto (RBC) [Entitic vol] Ordered By: Ed Amaral on 10-26-2021 MCV (RBC) [Entitic vol] 96.5 fL 80-100 F [facility] Monocytes Auto (Bld) [#/Vol] Ordered By: Ed Amaral on 10-26-2021 Monocytes (Bld) [#/Vol] 0.6 10*3/uL 0.0-0.8 [facility] Monocytes/100 WBC Auto (Bld) Ordered By: Ed Amaral on 10-26-2021 Monocytes/100 WBC (Bld) 6.2 % . F [facility] Neutrophils Auto (Bld) [#/Vo l]Ordered By: Ed Amaral on 10-26-2021 Neutrophils (Bld) [#/Vol] 7.1 10*3/uL 1.8-7.7 [facility] Neutrophils/100 WBC Auto (Bl d)Ordered By: Ed Amaral on 10-26-2021 Neutrophils/100 WBC (Bld) 69.6 % . [facility] Nitrite Test strip Ql (U)Ord ered By: Ed Amaral on 10-26-2021 Nitrite Ql (U) Negative Negative [facility] No Panel InformationOrdered By: Ed Amaral on 10-26-2021 Estimated GFR () > 60 mL/Min [facility] Comment on above: GFR estimated refere nce range: According to KDOQI guidelines, <60 ml/min/1.73m2 is sufficient to diagnose a patient with chronic kidney disease. Pharmacy Creatinine Clearance (Chem 97.62 [facility] SARS Antigen (LFIA) [facility] Phencyclidine Screen Ql (U)O rdered By: Ed Amaral on 10-26-2021 Phencyclidine Ql (U) Negative Negative [facility] Platelet mean volume Auto (B ld) [Entitic vol]Ordered By: Ed Amaral on 10-26-2021 Platelet mean volume (Bld) [Entitic vol] 9.0 fL 6.3-10.7 [facility] Platelets Auto (Bld) [#/Vol] Ordered By: Ed Amaral on 10-26-2021 Platelets (Bld) [#/Vol] 173 10*3/uL 150-450 [facility] Protein Auto test strip (U) [Mass/Vol]Ordered By: Ed Amaral on 10-26-2021 Protein (U) [Mass/Vol] Negative Negative [facility] Protein [Mass/volume] in Ser um or PlasmaOrdered By: Ed Amaral on 10-26-2021 Protein [Mass/Vol] 6.7 g/dL 6.1-7.9 [facility] RBC Auto (Bld) [#/Vol]Ordere d By: Ed Amaral on 10-26-2021 RBC (Bld) [#/Vol] 4.05 10*6/uL 3.60-5.00 [facility] Serum or plasma alanine daniel otransferase measurement without P-5'-P (enzymatic activiOrdered By: Ed Amaral on 10-26-2021 ALT No additional P-5'-P [Catalytic activity/Vol] 20 U/L 10-60 [facility] Serum or plasma albumin/glob ulin mass ratioOrdered By: Ed Amaral on 10-26-2021 Albumin/Globulin [Mass ratio] 1.5 {ratio} [facility] Serum or plasma alkaline jame sphatase measurement (enzymatic activity/volume)Ordered By: Ed Amaral on 10-26-2021 ALP [Catalytic activity/Vol] 55 U/L 32-92 [facility] Serum or plasma anion gap de terminationOrdered By: Ed Amaral on 10-26-2021 Anion gap [Moles/Vol] 10.1 mmol/L 6.0-15.0 [facility] Serum or plasma aspartate am inotransferase measurement (enzymatic activity/volume)Ordered By: Ed Amaral on 10-26-2021 AST [Catalytic activity/Vol] 17 U/L 10-42 [facility] Serum or plasma calcium stephane urement (mass/volume)Ordered By: Ed Amaral on 10-26-2021 Calcium [Mass/Vol] 9.5 mg/dL 8.2-10.2 [facility] Serum or plasma chloride rios surement (moles/volume)Ordered By: Ed Amaral on 10-26-2021 Chloride [Moles/Vol] 104 mmol/L 95-114 [facility] Serum or plasma ethanol stephane urement (mass/volume)Ordered By: Ed Amaral on 10-26-2021 Ethanol [Mass/Vol] mg/dL [facility] Ethanol [Mass/Vol] TNP [facility] Comment on above: Test not performed Serum or plasma glucose stephane urement (mass/volume)Ordered By: Ed Amaral on 10-26-2021 Glucose [Mass/Vol] 98 mg/dL 70-100 [facility] Comment on above: ADA recommended refe rence range Random Glucose Reference Range is dependent on time and content of last meal. Glucose of more than 200 mg/dL in a nonstressed, ambulatory subject supports the diagnosis of Diabetes Mellitus. Serum or plasma potassium me asurement (moles/volume)Ordered By: Ed Amaral on 10-26-2021 Potassium [Moles/Vol] 3.4 mmol/L 3.5-5.1 [facility] Serum or plasma sodium measu rement (moles/volume)Ordered By: Ed Amaral on 10-26-2021 Sodium [Moles/Vol] 136 mmol/L 136-146 [facility] Serum or plasma total biliru bin measurement (mass/volume)Ordered By: Ed Amaral on 10-26-2021 Bilirubin [Mass/Vol] 0.4 mg/dL 0.3-1.2 [facility] Serum or plasma total carbon dioxide measurement (moles/volume)Ordered By: Ed Amaral on 10-26-2021 CO2 [Moles/Vol] 25.3 mmol/L 22.0-30.0 [facility] Serum or plasma urea nitroge n measurement (mass/volume)Ordered By: Ed Amaral on 10-26-2021 Urea nitrogen [Mass/Vol] 6 mg/dL 11-19 [facility] Feli Ag Negativeon 10-27-19 Feli Ag Negative Negative Normal Negative [facility] Comment on above: Result Comment: This is a duplicate Feli SARS Antigen (ERNESTO) result to be used for statistical tracking purpose only. PERFORMED BY: [place] [address] PATHOLOGIST [employer] BUYER JAMES MCNAIR M.D. Performed By: #### S BALJINDER HOBSON, ADDONUAPLUS, UHCG, COVID-19 FELI #### [address] Specific gravity Auto test s trip (U) [Rel density]Ordered By: Ed Amaral on 10-26-2021 Specific gravity (U) [Rel density] 1.005 1.001-1.030 [facility] Squamous epithelial cells de tection in urine sediment by light microscopyOrdered By: Ed Amaral on 10-26-2021 Epithelial cells.squamous LM Ql (Urine sed) 1-2 [HPF] 0-2 [facility] Urine bacteria detection by automated methodOrdered By: Ed Amaral on 10-26-2021 Bacteria Auto Ql (U) N/A [facility] Urine clarity by refractomet ry automatedOrdered By: Ed Amaral on 10-26-2021 Clarity Refractometry automated (U) Clear Clear [facility] Urine cocaine detectionOrder ed By: Ed Amaral on 10-26-2021 Cocaine Ql (U) Negative Negative [facility] Urine glucose measurement by automated test strip (mass/volume)Ordered By: Ed Amaral on 10-26-2021 Glucose Auto test strip (U) [Mass/Vol] Normal mg/dL Normal [facility] Urine hemoglobin detection b y automated test stripOrdered By: Ed Amaral on 10-26-2021 Hemoglobin Auto test strip Ql (U) Negative Negative [facility] Urine leukocyte esterase det ection by automated test stripOrdered By: Ed Amaral on 10-26-2021 Leukocyte esterase Auto test strip Ql (U) 1+ Negative [facility] Urine pH measurement by auto mated test stripOrdered By: Ed Amaral on 10-26-2021 pH (U) 7.0 [pH] Normal 5.0-9.0 [facility] Comment on above: Order Comment: Name Collection Type:: Clean-Voided Midstream Performed By: #### S OFIANEG, URDS, ADDONUAPLUS, UHCG, COVID-19 FELI #### [facility] [address] [place] [address] Urobilinogen Auto test strip (U) [Mass/Vol]Ordered By: Ed Amaral on 10-26-2021 Urobilinogen (U) [Mass/Vol] Normal mg/dL Normal [facility] Viral Non-Resp Culton 2021 Viral Non-Resp Cult Specimen Description .WOUND UPPER .LIP Culture POSITIVE: HSV-1 DNA detected by nucleic acid amp. NEGATIVE: HSV-2 DNA not detected by nucleic acid amplification. Due to the specimen source, HSV 1,2 testing was performed by a molecular method. Report Status FINAL 05/30/2021 [facility] Comment on above: Performed By: #### [facility] #### [facility] [employer] [address] [place] [id number] Cad Engineer: Claude Gonzalez MD No Panel InformationOrdered By: Kia Sharma on 05-28-2021 Reported Physicians See Note [facility] Work Phone: Comment on above: Note: Reported Physi cians:Ordering: Andres SharmaaAttending: Andres SharmaaReferring: Kia Sharma Viral Non-Resp Cult See Note [facility] Work Phone: Comment on above: Note: Specimen Descr iption .WOUND UPPER .LIPCulture POSITIVE: HSV-1 DNA detected by nucleic acid amp.NEGATIVE: HSV-2 DNA not detected by nucleic acid amplification.Due to the specimen source, HSV 1,2 testing was performed by a molecular method.Report Status FINAL 2Responsible Observer: SUMMER OLIVER ([id number]) Follicle Stimulating Hormone on 03-10-2021 FSH 4.5 U/L 1.7 - 21.5 U/L [employer] Comment on above: Reference Range: Male: 1.5-12.4 Ovulating Female: Follicular Phase 3.5-12.5 Ovulation Phase 4.7-21.5 Luteal Phase 1.7-7.7 Postmenopausal Female: 25.8-134.8 Luteinizing Hormoneon 2021 LH 3.0 U/L 1.0 - 95.6 U/L [employer] Comment on above: Reference Range: Male: 1.7-8.6 Ovulating Female: Follicular Phase 2.4-12.6 Ovulation Phase 14.0-95.6 Luteal Phase 1.0-11.4 Postmenopausal Female: 7.7-58.5 No Panel Informationon 03-10 [employer] Prolactinon 03-10-2021 Prolactin 5.96 ug/L 4.79 - 23.30 ug/L [employer] [facility] Comment on above: The presence of macr oprolactin may cause interference in female patients with various endocrinological diseases or during . [employer] TSH with Reflexon 03-10-2021 TSH Qn 0.72 m[IU]/L [facility] hCG, Quantitative, on 03-10-2021 hCG Quant <1 <5 IU/L [employer] Comment on above: Non-preg premeno <=5 Postmeno <=8 Male <=3 If HCG results do not concur with clinical observations, additional testing to confirm results is recommended. Elevated results not associated with may be found in patients with other diseases such as tumors of the germ cells (testis, ovaries, etc.), bladder, pancreas, stomach, lungs, and liver. [employer] , UrineOrdered By: Anthonyindio Galloway on 10-14-2020 Beta HCG ( test) Ql (U) Negative NEGATIVE [employer] Phone: Comment on above: Specimens with hCG l evels near the threshold of the test (25 mIU/mL) may give a negative or indeterminate result. In such cases, another test should be performed with a new specimen in 48-72 hours. If early is suspected clinically in this setting, correlation with quantitative serum b-hCG level is suggested. [employer] has confirmed the use of plasma for this test. This has not been cleared or approved by the U.S. Food and Drug Administration. The FDA has determined that such clearance is not necessary. [employer] Phone: COVID-19Ordered By: Sabas siddiqi on 10-10-2020 SARS-CoV-2 (COVID-19) RNA SANDRA+probe Ql (Unsp spec) [employer] Phone: SARS-CoV-2 (COVID-19) RNA SANDRA+probe Ql (Unsp spec) Not detected Not Detected [employer] Phone: Comment on above: The specimen is NEGATIVE for SARS-CoV-2, the novel coronavirus associated with COVID-19. A negative result does not rule out COVID-19. [employer] SARS-CoV-2 for use on the [employer] is a real-time RT-PCR test intended [...] this assay. Fact sheet for Healthcare Providers: https://www.fda.gov/media/269464/download Fact sheet for Patients: https://www.[facility].gov/media/717162/download METHODOLOGY: RT-PCR Source .NASOPHARYNGEAL SWAB [facility] [employer] Work Phone: [facility] [employer] Work Phone: Microscopic Urinalysison Amorphous, UA NOT REPORTED None [facility], [place] Bacteria, UA 1+ Abnormal None [place], [place] Casts UA NOT REPORTED /LPF [place] Crystals, UA NOT REPORTED None /HPF [place] Epithelial Cells UA 5 TO 10 [place], [place] Interpretation and review of laboratory results Abnormal [place] Mucus, UA NOT REPORTED None [place] Other Observations UA NOT REPORTED NOT REQ. M [place], [place] RBC (U) [#/Vol] 0 TO 2 [place], [place] Renal Epithelial, UA NOT REPORTED 0 /HPF Me [place], [place] Trichomonas, UA NOT REPORTED None [facility] [place] WBC, UA 0 TO 2 [place] Yeast, UA NOT REPORTED None [place], [place] - [place] , Urineon 0 Beta HCG ( test) Ql (U) Negative NEGATIVE [place] Comment on above: Specimens with hCG l evels near the threshold of the test (25 mIU/mL) may give a negative or indeterminate result. In such cases, another test should be performed with a new specimen in 48-72 hours. If early is suspected clinically in this setting, correlation with quantitative serum b-hCG level is suggested. [employer] has confirmed the use of plasma for this test. This has not been cleared or approved by the U.S. Food and Drug Administration. The FDA has determined that such clearance is not necessary. Urinalysis Reflex to Culture on 02-25-2020 Bilirubin Urine Negative NEGATIVE [facility] [place], [place] Color, UA YELLOW YELLOW [place], [place] Glucose, Ur Negative NEGATIVE [place] Ketones Ql (U) Negative NEGATIVE [place] Leukocyte esterase Test strip Ql (U) Negative NEGATIVE [place] Nitrite, Urine Negative NEGATIVE [place] pH, UA 6.5 [place] Protein (U) [Mass/Vol] Negative NEGATIVE [place], [place] Specific [place], UA 1.010 [place], [place] Turbidity UA CLEAR CLEAR [place] Urinalysis Comments NOT REPORTED [place], [place] Urine Hgb Negative NEGATIVE [place] Urobilinogen, Urine Normal Normal [place] Wet Prep, Genitalon 02-25-20 20 Direct Exam NO TRICHOMONAS SEEN [place], [place] Direct Exam NO YEAST OBSERVED [place] Direct Exam CLUE CELLS SEEN Abnormal [place], [place] Interpretation and review of laboratory results Abnormal [place] Special Requests NOT REPORTED [place] Specimen Description .VAGINA [place], [place] Laboratory Studieson 016 Albumin [Mass/Vol] 3.4 g/dL 3.2-5.5 [facility] Albumin/Globulin [Mass ratio] 1.5 {ratio} [facility] ALP [Catalytic activity/Vol] 50 U/L 32-92 [facility] ALT [Catalytic activity/Vol] 17 U/L 10-60 [facility] AST [Catalytic activity/Vol] 16 U/L 10-42 [facility] Basophils (Bld) [#/Vol] 0.0 10*3/uL 0.0-0.2 [facility] Basophils/100 WBC (Bld) 0.3 % F [facility] Bilirubin Ql (U) 0.2 mg/dL Low 0.3-1.2 [facility] Bilirubin.direct [Mass/Vol] mg/dL 0.0-0.4 [facility] Bilirubin.indirect (Body fld) [Mass/Vol] TNP [facility] Comment on above: Test not performed WHEN BILD IS <0.1,IBIL IS NOT ABLE TO BE CALCULATED. Calcium [Mass/Vol] 9.3 mg/dL 8.2-10.2 [facility] Chloride [Moles/Vol] 106 mmol/L 95-114 [facility] Cholesterol [Mass/Vol] 9 mg/dL Fi [facility] Cholesterol [Mass/Vol] 101 mg/dL Low 140-200 [facility] Comment on above: CHOL less than 200 m g/dL Low risk CHOL 201-239 mg/dL Borderline risk CHOL 240 mg/dL and greater High risk Cholesterol in HDL [Mass/Vol] 38 mg/dL 35-85 [facility] Comment on above: HDL CHOL ATP-III CLA SSIFICATION Cardiovascular Risk HDL > or equal to 60 mg/dL Low HDL < 40 mg/dL High Cholesterol.total/Fanny sterol in HDL [Mass ratio] 2.7 {ratio} [facility] CO2 [Moles/Vol] 25.8 mmol/L 22.0-30.0 [facility] Creatinine [Mass/Vol] 0.62 mg/dL 0.44-1.03 [facility] Eosinophils (Bld) [#/Vol] 0.10 10*3/uL 0.0-0.45 [facility] Eosinophils/100 WBC (Bld) 1.5 % [facility] Erythrocyte distribution width (RBC) [Ratio] 13.2 % 11.9-15.3 [facility] Estimated GFR (Non- > 60 [facility] GFR/1.73 sq M.predicted MDRD (S/P/Bld) [Vol rate/Area] mL/min/{1.73_m2} [facility] Comment on above: GFR estimated refere nce range: According to KDOQI guidelines, <60 ml/min/1.73m2 is sufficient to diagnose a patient with chronic kidney disease. Globulin (S) [Mass/Vol] 2.2 g/dL F [facility] Glucose [Mass/Vol] 82 mg/dL 70-100 [facility] Comment on above: ADA RECOMMENDED REFE RENCE RANGE Hematocrit (Bld) [Volume fraction] 32.1 % Low 34.0-46.4 [facility] Hemoglobin (Bld) [Mass/Vol] 11.0 g/dL Low 11.8-15.4 [facility] LDL Cholesterol, Calculated 54 mg/dL 0-100 [facility] Comment on above: LDL ATP III CLASSIFI CATION LDL less than 100 mg/dL Optimal LDL 100-129 mg/dL Near or above optimal LDL 130-159 mg/dL Borderline high LDL 160-189 mg/dL High LDL greater than 189 mg/dL Very high Lymphocytes (Bld) [#/Vol] 2.1 10*3/uL 1.00-4.8 [facility] Lymphocytes/100 WBC (Bld) 25.3 % [facility] MCH (RBC) [Entitic mass] 31.9 pg 24.7-34.3 [facility] MCHC (RBC) [Mass/Vol] 34.4 g/dL 32.0-35.0 [facility] MCV (RBC) [Entitic vol] 92.6 fL 80-100 F [facility] Monocytes (Bld) [#/Vol] 0.7 10*3/uL 0.0-0.8 [facility] Monocytes/100 WBC (Bld) 8.3 % F [facility] Neutrophils (Bld) [#/Vol] 5.3 10*3/uL 1.8-7.7 [facility] Neutrophils/100 WBC (Bld) 64.6 % [facility] Platelet mean volume (Bld) [Entitic vol] 9.5 fL 6.3-10.7 [facility] Platelets (Bld) [#/Vol] 135 10*3/uL Low 150-450 [facility] Potassium [Moles/Vol] 4.3 mmol/L 3.5-5.1 [facility] Protein [Mass/Vol] 5.6 g/dL Low 6.1-7.9 [facility] RBC (Bld) [#/Vol] 3.46 10*6/uL Low 3.60-5.00 [facility] Sodium [Moles/Vol] 138 mmol/L 136-146 [facility] Triglyceride [Mass/Vol] 47 mg/dL 35-149 F [facility] Comment on above: TRIG ATP III CLASSIF ICATION TRIG less than 150 mg/dL Normal TRIG 150-199 mg/dL Borderline high TRIG 200-500 mg/dL High TRIG greater than 500 mg/dL Very high Standard traceable to the Center for Disease Conrtrol and Prevention (CDC) test method. Troponin I.cardiac [Mass/Vol] 0.02 ng/mL 0-0.02 [facility] Comment on above: [place] Cut off value > or equal to 0.03 ng/mL in conjunction with clinical conditions of myocardial infarction. (www.escardio.org/guidelines) TSH Qn 1.89 uIU/mL 0.340-5.600 [facility] Urea nitrogen [Mass/Vol] 7 mg/dL Low 9-23 [facility] WBC (Bld) [#/Vol] 8.2 10*3/uL 3.8-11.6 [facility] Amorphous sediment LM Ql (Urine sed) 2+ [facility] Comment on above: PHOSPHATES Amphetamines Ql (U) Negative [facility] Appearance (U) Hazy Abnormal [facility] Bacteria LM.HPF (Urine sed) [#/Area] Rare [facility] Benzodiazepines Ql (U) [facility] Bilirubin Ql (U) Negative [facility] Cocaine Ql (U) Negative [facility] Color (U) Light-yellow [facility] Epithelial cells.squamous LM.HPF (Urine sed) [#/Area] 3-4 /hpf High [facility] Glucose (U) [Mass/Vol] Normal mg/dL [facility] Ketones Ql (U) Negative [facility] Leukocyte esterase Test strip Ql (U) Negative [facility] Nitrite Ql (U) Negative [facility] Opiates Ql (U) Negative [facility] pH (U) 7.0 [pH] 5.0-9.0 [facility] Phencyclidine Ql (U) Negative [facility] Protein Ql (U) Negative [facility] RBC (U) [#/Vol] Rare /hpf [facility] Specific gravity (U) [Rel density] 1.010 1.001-1.030 [facility] Urine Barbiturates Screen Positive High [facility] Urine Collection Type Type [facility] Comment on above: VOIDED Urine Drug Screen Comment See comment [facility] Comment on above: THESE ARE UNCONFIRME D RESULTS AND SHOULD NOT BE USED FOR LEGAL PURPOSES. DRUG CUT-OFF CONCENTRATION: AMPH 1000 ng/mL SANCHEZ 200 ng/mL RENZO 200 ng/mL COCM 300 ng/mL OP 300 ng/mL PCP 25 ng/mL THC 20 ng/mL Urine Marijuana (THC) Screen Positive High [facility] Ctr Urine Occult Blood Negative [facility] Urobilinogen Qn (U) Normal mg/dL [facility] C[facility] WBC (U) [#/Vol] Rare /hpf [facility] Laboratory Studieson 016 CK [Catalytic activity/Vol] 51 U/L [facility] CK.MB [Mass/Vol] 0.8 ng/mL 0.6-6.3 [facility] Creatine Kinase MB Relative Index 1.5 0.00-2.50 [facility] Vital Signs Date Time Vital Sign Value Performing Clinician Facility 09-12-2023 17:45-0400 Body height 170.2 cm Brenda Stephen BRICK TENDER - CNM Work Phone: [facility] Sleep Number 09-12-2023 17:45-0400 Body mass index (BMI) [Ratio] 28.82 kg/m2 Brenda Hailee BRICK TENDER - CNM Work Phone: [facility] Sleep Number 09-12-2023 17:45-0400 Body temperature 98.29 [degF] Brenda Hailee BRICK TENDER - CNM Work Phone: [facility] Sleep Number 09-12-2023 17:45-0400 Body weight 83.46 kg Brenda Hailee BRICK TENDER - CNM Work Phone: [facility] Sleep Number 09-12-2023 17:45-0400 Diastolic blood pressure 60 mm[Hg] Brenda Hailee BRICK TENDER - CNM Work Phone: [facility] Sleep Number 09-12-2023 17:45-0400 Heart rate 75 /min Brenda Cardosotig BRICK TENDER - CNM Work Phone: [facility] Sleep Number 09-12-2023 17:45-0400 Respiratory rate 16 /min Brenda Hailee BRICK TENDER - CNM Work Phone: [employer] 09-12-2023 17:45-0400 SaO2% (BldA) [Mass fraction] 98 % Brenda Stephen BRICK TENDER - CN Work Phone: [employer] 09-12-2023 17:45-0400 Systolic blood pressure 110 mm[Hg] Brenda Stephen BRICK TENDER [facility] Work Phone: [employer] 08-24-2023 20:05-0400 Body temperature 98.1 [degF] Jagdeep D'Abreau DO Work Phone: [employer] 08-24-2023 20:05-0400 Diastolic blood pressure 63 mm[Hg] Jagdeep D'Abreau DO Work Phone: [employer] 08-24-2023 20:05-0400 Heart rate 95 /min Jagdeep D'Abreau DO Work Phone: [facility] Sleep Number 08-24-2023 20:05-0400 Respiratory rate 16 /min Jagdeep D'Abreau DO Work Phone: [employer] 08-24-2023 20:05-0400 SaO2% (BldA) [Mass fraction] 98 % Jagdeep D'Abreau DO Work Phone: [employer] 08-24-2023 20:05-0400 Systolic blood pressure 131 mm[Hg] Jagdeep D'Abreau DO Work Phone: [employer] 08-03-2022 06:56-0400 Body temperature 99 [degF] Samara Paulino MD Work Phone: [employer] 08-03-2022 06:56-0400 Diastolic blood pressure 75 mm[Hg] Samara Paulino MD Work Phone: [employer] 08-03-2022 06:56-0400 Heart rate 129 /min Samara Paulino MD Work Phone: [employer] 08-03-2022 06:56-0400 Respiratory rate 22 /min Samara Paulino MD [facility] 08-03-2022 06:56-0400 SaO2% (BldA) [Mass fraction] 100 % Samara Paulino MD [facility] 08-03-2022 06:56-0400 Systolic blood pressure 131 mm[Hg] Samara Paulino MD Work Phone: [facility] 07-27-2022 18:47-0400 Body height 175.26 cm Mariposa Perladenton BANSAL Work Phone: [facility] Work Phone: 07-27-2022 18:47-0400 Body mass index (BMI) [Ratio] 22 kg/m2 Mariposa Duncan METAL FABRICATING SUPERVISOR Work Phone: [facility] Work Phone: 07-27-2022 18:47-0400 Body surface area Derived from formula 1.8 m2 Mariposa Rossdenton BANSAL Work Phone: [facility] Work Phone: 07-27-2022 18:47-0400 Body temperature 96.3 [degF] Mariposa Duncan METAL FABRICATING SUPERVISOR Work Phone: [facility] Work Phone: 07-27-2022 18:47-0400 Body weight 67.72 kg Mariposa Rossdenton BANSAL Work Phone: [facility] Work Phone: 07-27-2022 18:47-0400 Diastolic blood pressure 63 mm[Hg] Mariposa Perla BANSAL Work Phone: [facility] Work Phone: 07-27-2022 18:47-0400 Heart rate 68 /min Mariposa Perla BANSAL Work Phone: [facility] Work Phone: 07-27-2022 18:47-0400 SaO2% (BldA) [Mass fraction] 97 % Mariposa Perla METAL FABRICATING SUPERVISOR Work Phone: [facility] Work Phone: 07-27-2022 18:47-0400 Systolic blood pressure 117 mm[Hg] Mariposa Duncan METAL FABRICATING SUPERVISOR Work Phone: [facility] Work Phone: 04-24-2022 13:05-0500 Diastolic blood pressure 60 mm[Hg] Kia Sharma BRICK TENDER - METAL FABRICATING SUPERVISOR Work Phone: [facility] Sleep Number 04-24-2022 13:05-0500 Systolic blood pressure 122 mm[Hg] Kia Sharma BRICK TENDER - METAL FABRICATING SUPERVISOR Work Phone: [facility] Sleep Number 04-24-2022 10:44-0500 Body mass index (BMI) [Ratio] 24.78 kg/m2 Kia Sharma BRICK TENDER - METAL FABRICATING SUPERVISOR Work Phone: [employer] 04-24-2022 10:44-0500 Body temperature 98.4 [degF] Kia Sharma BRICK TENDER - METAL FABRICATING SUPERVISOR Work Phone: [employer] 04-24-2022 10:44-0500 Body weight 73.94 kg Kia Sharma BRICK TENDER - METAL FABRICATING SUPERVISOR Work Phone: [employer] 04-24-2022 10:44-0500 Heart rate 79 /min Kia Sharma BRICK TENDER - METAL FABRICATING SUPERVISOR Work Phone: [employer] 04-24-2022 10:44-0500 Respiratory rate 20 /min Kia Sharma BRICK TENDER - METAL FABRICATING SUPERVISOR Work Phone: [employer] 04-24-2022 10:44-0500 SaO2% (BldA) [Mass fraction] 100 % Kia Sharma BRICK TENDER - METAL FABRICATING SUPERVISOR Work Phone: [employer] 03-04-2022 14:15-0500 Diastolic blood pressure 78 mm[Hg] Geoff Miller MD Work Phone: [employer] 03-04-2022 14:15-0500 Heart rate 74 /min Geoff Miller MD Work Phone: [facility] Sleep Number 03-04-2022 14:15-0500 Respiratory rate 16 /min Geoff Miller MD Work Phone: [facility] Sleep Number 03-04-2022 14:15-0500 SaO2% (BldA) [Mass fraction] 100 % Geoff Miller MD Work Phone: [employer] 03-04-2022 14:15-0500 Systolic blood pressure 131 mm[Hg] Geoff Miller MD Work Phone: [facility] Sleep Number 03-04-2022 13:30-0500 Body temperature 97.2 [degF] Geoff Miller MD Work Phone: [facility] Sleep Number 03-04-2022 11:15-0500 Body height 172.7 cm Geoff Miller MD Work Phone: [facility] Sleep Number 03-04-2022 11:15-0500 Body mass index (BMI) [Ratio] 24.94 kg/m2 Geoff Miller MD Work Phone: [facility] Sleep Number 03-04-2022 11:15-0500 Body weight 74.39 kg Geoff Miller MD Work Phone: [facility] Sleep Number 03-01-2022 08:00-0500 Body mass index (BMI) [Ratio] 24.94 kg/m2 Nicholas Denton MD Work Phone: [employer] 03-01-2022 08:00-0500 Body temperature 98.2 [degF] Nicholas Denton MD Work Phone: [employer] 03-01-2022 08:00-0500 Body weight 74.39 kg Nicholas Denton MD Work Phone: [employer] 03-01-2022 08:00-0500 Diastolic blood pressure 61 mm[Hg] Nicholas Denton MD Work Phone: [facility] Sleep Number 03-01-2022 08:00-0500 Heart rate 89 /min Nicholas Denton MD Work Phone: [facility] Sleep Number 03-01-2022 08:00-0500 Respiratory rate 20 /min Nicholas Denton MD Work Phone: [facility] Sleep Number 03-01-2022 08:00-0500 SaO2% (BldA) [Mass fraction] 99 % Nicholas Denton MD Work Phone: [facility] Sleep Number 03-01-2022 08:00-0500 Systolic blood pressure 138 mm[Hg] Nicholas Denton MD Work Phone: [facility] Sleep Number 10-29-2021 07:30-0400 Body temperature 96.6 [degF] PHYSICIAN NO [facility] 10-29-2021 07:30-0400 Diastolic blood pressure 70 mm[Hg] PHYSICIAN NO [facility] 10-29-2021 07:30-0400 Heart rate 84 /min PHYSICIAN NO [facility] 10-29-2021 07:30-0400 Respiratory rate 18 /min PHYSICIAN NO [facility] 10-29-2021 07:30-0400 SaO2% (BldA) [Mass fraction] 97 % PHYSICIAN NO [facility] 10-29-2021 07:30-0400 Systolic blood pressure 110 mm[Hg] PHYSICIAN NO [facility] 10-27-2021 14:15-0400 Body height 172.72 cm PHYSICIAN NO [facility] 10-26-2021 20:08-0400 Body weight 58.96 kg PHYSICIAN NO [facility] 08-17-2021 16:45-0400 Body height 175.26 cm Kia Sharma CNP Work Phone: [facility] Work Phone: 08-17-2021 16:45-0400 Body mass index (BMI) [Ratio] 20 kg/m2 Kia Sharma CNP Work Phone: [facility] Work Phone: 08-17-2021 16:45-0400 Body surface area Derived from formula 1.75 m2 Kia Sharma CNP Work Phone: [facility] Work Phone: 08-17-2021 16:45-0400 Body surface area Derived from formula 1.7 m2 Mariposa Perla METAL FABRICATING SUPERVISOR Work Phone: [facility] Work Phone: 08-17-2021 16:45-0400 Body temperature 96.7 [degF] Kia Sharma METAL FABRICATING SUPERVISOR Work Phone: [facility] Work Phone: 08-17-2021 16:45-0400 Body weight 61.33 kg Kia Sharma METAL FABRICATING SUPERVISOR Work Phone: [facility] Work Phone: 08-17-2021 16:45-0400 Diastolic blood pressure 64 mm[Hg] Kia Sharma METAL FABRICATING SUPERVISOR Work Phone: [facility] Work Phone: 08-17-2021 16:45-0400 Heart rate 67 /min Kia Sharma METAL FABRICATING SUPERVISOR Work Phone: [facility] Work Phone: 08-17-2021 16:45-0400 SaO2% (BldA) [Mass fraction] 99 % Kia Sharma METAL FABRICATING SUPERVISOR Work Phone: [facility] Work Phone: 08-17-2021 16:45-0400 Systolic blood pressure 110 mm[Hg] Kia Sharma METAL FABRICATING SUPERVISOR Work Phone: [facility] Work Phone: 07-15-2021 15:57-0400 Body height 175.26 cm Kia Sharma CNP Work Phone: [facility] Work Phone: 07-15-2021 15:57-0400 Body mass index (BMI) [Ratio] 19.8 kg/m2 Kia Sharma CNP Work Phone: [facility] Work Phone: 07-15-2021 15:57-0400 Body surface area Derived from formula 1.74 m2 Kia Sharma CNP Work Phone: [facility] Work Phone: 07-15-2021 15:57-0400 Body temperature 98.1 [degF] Kia Sharma CNP Work Phone: [facility] Work Phone: 07-15-2021 15:57-0400 Body weight 60.78 kg Kia Sharma CNP Work Phone: [facility] Work Phone: 07-15-2021 15:57-0400 Diastolic blood pressure 62 mm[Hg] Kia Sharma CNP Work Phone: [facility] Work Phone: 07-15-2021 15:57-0400 Heart rate 68 /min Kia Sharma CNP Work Phone: [facility] Work Phone: 07-15-2021 15:57-0400 Heart Rate Rhythm 1 1 Kia Sharma CNP Work Phone: [facility] Work Phone: 07-15-2021 15:57-0400 SaO2% (BldA) [Mass fraction] 98 % Kia Sharma CNP Work Phone: [facility] Work Phone: 07-15-2021 15:57-0400 Systolic blood pressure 108 mm[Hg] Kia Sharma CNP Work Phone: [facility] Work Phone: 07-01-2021 17:32-0400 Body height 175.26 cm Kia Sharma CNP Work Phone: [facility] Work Phone: 07-01-2021 17:32-0400 Body mass index (BMI) [Ratio] 20.3 kg/m2 Kia Sharma CNP Work Phone: [facility] Work Phone: 07-01-2021 17:32-0400 Body surface area Derived from formula 1.76 m2 Kia Sharma CNP Work Phone: [facility] Work Phone: 07-01-2021 17:32-0400 Body temperature 97.5 [degF] Kia Sharma CNP Work Phone: [facility] Work Phone: 07-01-2021 17:32-0400 Body weight 62.32 kg Kia Sharma CNP Work Phone: [facility] Work Phone: 07-01-2021 17:32-0400 Diastolic blood pressure 58 mm[Hg] Kia Sharma CNP Work Phone: [facility] Work Phone: 07-01-2021 17:32-0400 Heart rate 775 /min Kia Sharma CNP Work Phone: [facility] Work Phone: 07-01-2021 17:32-0400 Heart Rate Rhythm 1 1 Kia Sharma CNP Work Phone: [facility] Work Phone: 07-01-2021 17:32-0400 SaO2% (BldA) [Mass fraction] 97 % Kia Sharma CNP Work Phone: [facility] Work Phone: 07-01-2021 17:32-0400 Systolic blood pressure 116 mm[Hg] Kia Sharma CNP Work Phone: [facility] Work Phone: 05-28-2021 18:41-0400 Body height 175.26 cm Kia Sharma CNP Work Phone: [facility] Work Phone: 05-28-2021 18:41-0400 Body mass index (BMI) [Ratio] 19.6 kg/m2 Kia Sharma CNP Work Phone: [facility] Work Phone: 05-28-2021 18:41-0400 Body surface area Derived from formula 1.74 m2 Kia Sharma CNP Work Phone: [facility] Work Phone: 05-28-2021 18:41-0400 Body temperature 97.7 [degF] Kia Sharma CNP Work Phone: [facility] Work Phone: 05-28-2021 18:41-0400 Body weight 60.33 kg Kia Sharma CNP Work Phone: [facility] Work Phone: 05-28-2021 18:41-0400 Diastolic blood pressure 76 mm[Hg] Kia Sharma CNP Work Phone: [facility] Work Phone: 05-28-2021 18:41-0400 Heart rate 83 /min Kia Sharma CNP Work Phone: [facility] Work Phone: 05-28-2021 18:41-0400 SaO2% (BldA) [Mass fraction] 98 % Kia Sharma METAL FABRICATING SUPERVISOR Work Phone: [facility] Work Phone: 05-28-2021 18:41-0400 Systolic blood pressure 122 mm[Hg] Kia Sharma METAL FABRICATING SUPERVISOR Work Phone: [facility] Work Phone: 10-14-2020 13:00-0400 Diastolic blood pressure 68 mm[Hg] Anthony Galloway MD Work Phone: [employer] Work Phone: 10-14-2020 13:00-0400 Heart rate 60 /min Anthony Galloway MD Work Phone: [employer] Work Phone: 10-14-2020 13:00-0400 Respiratory rate 16 /min Anthony Galloway MD Work Phone: [employer] Work Phone: 10-14-2020 13:00-0400 SaO2% (BldA) [Mass fraction] 99 % Anthony Galloway MD Work Phone: [employer] Work Phone: 10-14-2020 13:00-0400 Systolic blood pressure 114 mm[Hg] Anthony Galloway MD Work Phone: [employer] Work Phone: 10-14-2020 12:25-0400 Body temperature 97.39 [degF] Anthony Galloway MD Work Phone: [employer] Work Phone: 10-14-2020 09:35-0400 Body height 172.7 cm Anthony Galloway MD Work Phone: [employer] Work Phone: 10-14-2020 09:35-0400 Body mass index (BMI) [Ratio] 20.13 kg/m2 Anthony Galloway MD Work Phone: [employer] Work Phone: 10-14-2020 09:35-0400 Body weight 60.06 kg Anthony Galloway MD Work Phone: [employer] Work Phone: 05-27-2020 22:19-0400 Body Temperature 97.5 [degF] [facility] Work Phone: 05-27-2020 22:19-0400 BP Diastolic 79 mm[Hg] [facility] Work Phone: 05-27-2020 22:19-0400 BP Systolic 133 mm[Hg] [facility] Work Phone: 05-27-2020 22:19-0400 Pulse (Heart Rate) 94 /min [facility] Work Phone: 05-27-2020 22:19-0400 Pulse Oximetry 98 % [facility] Work Phone: 05-27-2020 22:19-0400 Respiratory Rate 16 /min [facility] Work Phone: 04-03-2020 16:21-0500 BMI (Body Mass Index) 21.9 kg/m2 Kia Independa [facility] Work Phone: 04-03-2020 16:21-0500 Body Temperature 97.9 [degF] [employer] [facility] Work Phone: 04-03-2020 16:21-0500 Body weight 67.13 kg [employer] Work Phone: 04-03-2020 16:21-0500 BP Diastolic 82 mm[Hg] Kia Héctor [facility] Work Phone: 04-03-2020 16:21-0500 BP Systolic 138 mm[Hg] [facility] Work Phone: 04-03-2020 16:21-0500 BSA (Body Surface Area) 1.82 m2 [facility] Work Phone: 04-03-2020 16:21-0500 Height 175.26 cm [facility] Work Phone: 04-03-2020 16:21-0500 Pulse (Heart Rate) 77 /min [facility] Work Phone: 04-03-2020 16:21-0500 Pulse Oximetry 96 % [facility] Work Phone: 04-03-2020 16:21-0500 Respiratory Rate 18 /min [facility] Work Phone: 04-03-2020 16:21-0500 SaO2% (BldA) [Mass fraction] 96 % [facility] Work Phone: [facility] Work Phone: 03-20-2020 11:57-0500 BMI (Body Mass Index) 21.4 kg/m2 [facility] Work Phone: 03-20-2020 11:57-0500 Body weight 65.77 kg [facility] Work Phone: 03-20-2020 11:57-0500 BSA (Body Surface Area) 1.8 m2 [facility] Work Phone: 03-20-2020 11:57-0500 Height 175.26 cm [facility] Work Phone: 02-25-2020 21:28-0500 BMI (Body Mass Index) 23.22 kg/m2 [facility] [place] 02-25-2020 21:28-0500 Body Temperature 98.2 [degF] [facility] [place] 02-25-2020 21:28-0500 Body weight 70.31 kg [facility] [place] 02-25-2020 21:28-0500 BP Diastolic 76 mm[Hg] [facility] [place] 02-25-2020 21:28-0500 BP Systolic 144 mm[Hg] [facility] [place] 02-25-2020 21:28-0500 Height 174 cm [facility] [place] 02-25-2020 21:28-0500 Pulse (Heart Rate) 73 /min [facility] [place] 02-25-2020 21:28-0500 Pulse Oximetry 100 % [facility] [place] 02-25-2020 21:28-0500 Respiratory Rate 16 /min [facility] [place] 02-06-2020 17:44-0500 Respiratory Rate 16 /min [facility] [place] 02-06-2020 17:19-0500 BMI (Body Mass Index) 23.57 kg/m2 [facility] [place] 02-06-2020 17:19-0500 Body Temperature 99.61 [degF] [facility] [place] 02-06-2020 17:19-0500 Body weight 70.31 kg [facility] [place] 02-06-2020 17:19-0500 BP Diastolic 60 mm[Hg] [facility] [place] 02-06-2020 17:19-0500 BP Systolic 120 mm[Hg] [facility] [place] 02-06-2020 17:19-0500 Height 172.7 cm [facility] [place] 02-06-2020 17:19-0500 Pulse (Heart Rate) 81 /min [facility] [place] 02-06-2020 17:19-0500 Pulse Oximetry 98 % [facility] [place] 12-24-2019 12:27-0400 BMI (Body Mass Index) 23.42 kg/m2 [facility] [place] 12-24-2019 12:27-0400 Body Temperature 97.9 [degF] [facility] [place] 12-24-2019 12:27-0400 Body weight 69.85 kg [facility] [place] 12-24-2019 12:270400 BP Diastolic 64 mm[Hg] [facility] [place] 12-24-2019 12:270400 BP Systolic 122 mm[Hg] [facility] [place] 12-24-2019 12:270400 Pulse (Heart Rate) 68 /min [facility] [place] 12-24-2019 12:0400 Pulse Oximetry 99 % [facility] [place] 12-24-2019 12:0400 Respiratory Rate 16 /min [facility] [place] NEGATED: Highlighted row BMI (Body Mass Index) [facility] NEGATED: Highlighted row BMI (Body Mass Index) [facility] NEGATED: Highlighted row BMI (Body Mass Index) [facility] NEGATED: Highlighted row Body Temperature [facility] NEGATED: Highlighted row Body [facility]: Highlighted row Body weight [facility] NEGATED: Highlighted row [facility]: [facility]lighted [facility] NE[facility]: Highlighted row BP Diastolic [facility] NEGATED: Highlighted row BP Diastolic [facility] NE[facility]: Highlighted row BP Diastolic [facility]: Highlighted row BP Systolic [facility] NEGATED: Highlighted row BP Systolic [facility] NEGATED: Highlighted row BP Systolic [facility] NEGATED: Highlighted row Height Bryce [facility] NEGATED: Highlighted row Height Bryce [facility] NEGATED: Highlighted row [facility] NE[facility]: Highlighted row Pulse (Heart Rate) [facility] NEGATED: Highlighted row Pulse (Heart Rate) [facility] NEGATED: Highlighted row Pulse (Heart Rate) Bryce [facility] NEGATED: Highlighted row Pulse Oximetry Bryce [facility] NEGATED: Highlighted row Pulse Oximetry Bryce [facility] NEGATED: Highlighted row Pulse Oximetry Bryce [facility] NEGATED: Highlighted row Respiratory Rate Bryce [facility] NEGATED: Highlighted row Respiratory Rate Bryce [facility] NEGATED: Highlighted row Respiratory Rate Bryce [facility] Encounters Encounter Date Encounter Type Care Provider Facility Start: 09-12-2023 End: 09-12-2023 Subsequent hospital visit by physician Brenda Stephen BRICK TENDER - CNM Work Phone: [facility] Labor and Delivery Start: 09-04-2023 End: 09-04-2023 ambulatory GUERAAN [facility] Start: 09-04-2023 End: 09-04-2023 ambulatory YURIY DALJIT Not Available Start: 09-02-2023 End: 09-03-2023 [facility] Start: 08-24-2023 End: 08-24-2023 [facility] Start: 08-24-2023 End: 08-24-2023 Subsequent hospital visit by physician Jagdeep Manrique DO Work Phone: [facility] Labor and Delivery Start: 08-03-2023 End: 08-03-2023 ambulatory GENESIS OJEDA Not Available Start: 07-06-2023 End: 07-06-2023 ambulatory YURIY DALJIT Not Available Start: 06-30-2023 End: 06-30-2023 Emergency department patient visit [facility] Start: 06-20-2023 End: 06-20-2023 ambulatory YURIY DALJIT Not Available Start: 05-23-2023 End: 05-23-2023 ambulatory YURIY DALJIT Not Available Start: 05-18-2023 End: 05-18-2023 Emergency department patient visit [facility] Start: 05-01-2023 End: 05-01-2023 [facility] Start: 05-01-2023 End: 05-01-2023 Subsequent hospital visit by physician Kia Sharma APRN - METAL FABRICATING SUPERVISOR Work Phone: [facility] Laboratory Start: 04-27-2023 End: 04-27-2023 ambulatory YURIY SABILLON Not Available Start: 08-03-2022 End: 08-03-2022 Emergency department patient visit Samara Paulino MD Work Phone: [facility] ED Comment on above: Flank pain (Primary Dx); Urinary tract infection without hematuria, site unspecified Start: 07-27-2022 End: 07-27-2022 [facility] visit, estab pt Mariposa Duncan METAL FABRICATING SUPERVISOR Work Phone: [facility] Work Phone: Start: 06-03-2022 End: 06-05-2022 Subsequent hospital visit by physician Kulwinder Das Radiologist [facility] Ultrasound Comment on above: Abscess of female br east Start: 04-24-2022 End: 04-24-2022 Emergency department patient visit Kia Sharma APRN - METAL FABRICATING SUPERVISOR Work Phone: [facility] ED Comment on above: Nausea vomiting and diarrhea (Primary Dx) Start: 03-15-2022 End: 03-15-[address] YURIY SABILLON Facility:[facility] Start: 03-04-2022 End: 03-04-2022 Subsequent hospital visit by physician Geoff Miller MD Work Phone: [facility] OR Comment on above: Abscess of right lynette ast (Primary Dx) Start: 03-01-2022 End: 03-01-2022 Emergency department patient visit Nicholas Denton MD Work Phone: [facility] ED Comment on above: Cellulitis of right breast (Primary Dx) Start: 10-26-2021 End: 10-29-2021 Evaluation and management of inpatient PHYSICIAN NO FAMILY Facility:[facility] Start: 10-26-2021 End: 10-29-2021 Evaluation and management of inpatient PHYSICIAN NO [facility] Start: 08-17-2021 End: 08-17-2021 [facility] visit, estab pt Halima Condonmons [facility] Work Phone: [facility] Work Phone: Start: 08-17-2021 End: 08-17-2021 [facility] visit, estab pt Kia Sharma METAL FABRICATING SUPERVISOR Work Phone: [facility] Work Phone: Start: 07-15-2021 End: 07-15-2021 [facility] visit, estab pt Halima Argueta [facility] Work Phone: [facility] Work Phone: Start: 07-15-2021 End: 07-15-2021 [facility] visit, estab pt Kia Sharma METAL FABRICATING SUPERVISOR Work Phone: [facility] [facility] Work Phone: Start: 07-01-2021 End: 07-01-2021 FQHC visit, estab pt Kia Sharma [employer] F[employer]ICATING SUPERVISOR Work Phone: [facility] Work Phone: Start: 05-29-2021 End: 05-29-2021 ambulatory KIA SHARMA [facility] Start: 05-28-2021 End: 05-28-2021 Subsequent hospital visit by physician AGNES PRESLEY [facility] Start: 05-28-2021 End: 05-28-2021 FQHC visit, estab pt Kia Héctor [employer]ICATING SUPERVISOR Work Phone: [facility] Work Phone: Start: 03-25-2021 End: 03-25-2021 Subsequent hospital visit by physician [facility] Comment on above: Vaginal discharge Start: 03-10-2021 End: 03-10-2021 Subsequent hospital visit by physician [facility] Comment on above: Irregular menstrual cycle Start: 10-14-2020 End: 10-14-2020 Subsequent hospital visit by physician Anthony Galloway MD Work Phone: [facility] OR Comment on above: 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) Start: 10-09-2020 End: 10-13-2020 Patient encounter status [facility] Schedule [facility] PRE ADMIT Start: 10-09-2020 End: 10-13-2020 Subsequent hospital visit by physician [facility] Víctor19 Pat Screening Schedule [facility] PRE ADMIT Comment on above: Preop testing Start: 09-25-2020 End: 09-25-2020 Patient encounter status [facility] Schedule [facility] Start: 09-25-2020 End: 09-25-2020 Subsequent hospital visit by physician [facility] Haley Pat Screening Schedule [facility] PRE ADMIT Comment on above: Preop testing (Prima ry Dx) Start: 08-19-2020 End: 08-19-2020 Subsequent hospital visit by physician [facility] Comment on above: 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 Start: 05-27-2020 End: 05-27-2020 Emergency department patient visit Sid A Jr Work Phone: [facility] ED Comment on above: Dental infection (Pr imary Dx) Start: 04-03-2020 End: 04-03-2020 Established patient Kia Sharma Work Phone: [facility] Work Phone: Start: 04-03-2020 End: 04-03-2020 General Kia Sharma [employer] F[employer]ICATING SUPERVISOR Work Phone: [facility] Work Phone: Start: 04-03-2020 End: 04-03-2020 General Halima Argueta [facility] Work Phone: [facility] Work Phone: Start: 04-02-2020 End: 04-02-2020 Subsequent hospital visit by physician [facility] Comment on above: Women's annual routi ne gynecological examination Start: 03-20-2020 End: 03-20-2020 General Halima Argueta Work Phone: [facility] Work Phone: Start: 03-20-2020 End: 03-20-2020 Telemedicine consultation with patient Kia Sharma Work Phone: [facility] Work Phone: Start: 02-25-2020 [...] End: 02-15-2018 Evaluation and management of inpatient [facility] Start: 02-20-2016 End: 02-23-2016 Evaluation and management of inpatient [facility] Start: 05-12-2015 End: 05-15-2015 Evaluation and management of inpatient [facility] Start: 02-11-2014 End: 02-14-2014 Evaluation and management of inpatient [facility] Start: 04-28-2007 End: 05-28-2007 [facility] Start: 02-27-2007 End: 03-29-2007 [facility] Start: 01-27-2007 End: 02-26-2007 [facility] Start: 11-27-2006 End: 12-27-2006 [facility] Start: 09-27-2006 End: 10-27-2006 [facility] Start: 08-27-2006 End: 09-26-2006 Discharged Recurring Bryce [facility] Start: 07-28-2006 End: 09-26-2006 Discharged Recurring Bryce [facility] Start: 06-27-2006 End: 07-27-2006 Discharged Recurring Bryce [facility] Start: 05-28-2006 End: 06-26-2006 Discharged Recurring Bryce [facility] Start: 04-27-2006 End: 05-27-2006 Discharged Recurring Bryce [facility] Start: 03-30-2006 End: 04-26-2006 [facility] Start: 02-27-2006 End: 03-29-2006 [facility] Start: 01-27-2006 End: 02-26-2006 Discharged Recurring Bryce [facility] Start: 12-28-2005 End: 01-26-2006 [facility] Start: 11-27-2005 End: 12-27-2005 [facility] Start: 10-28-2005 End: 11-26-2005 [facility] Start: 09-27-2005 End: 11-26-2005 Discharged Recurring Bryce [facility] Start: 09-27-2005 End: 10-27-2005 [facility] Start: 08-27-2005 End: 09-26-2005 Discharged Recurring Bryce [facility] Start: 06-27-2005 End: 07-27-2005 Discharged Recurring Bryce [facility] Start: 04-27-2005 End: 05-27-2005 [facility] Start: 03-30-2005 End: 04-26-2005 [facility] Start: 02-27-2005 End: 03-29-2005 [facility] Start: 01-27-2005 End: 02-26-2005 [facility] Start: 12-28-2004 [facility] Start: 11-27-2004 End: 12-27-[address] [facility] Start: 11-27-2004 End: 12-27-[address] [facility] Start: 11-27-2004 Registered Recurring [facility] Start: 10-28-2004 End: 11-26-[address] [facility] Start: 10-28-2004 End: 11-26-2004 [facility] Start: 09-27-2004 End: 10-27-2004 [facility] Start: 09-27-2004 End: 10-27-2004 [facility] Start: 09-02-2004 End: 09-26-2004 Discharged Recurring Bryce [facility] Start: 09-02-2004 End: 09-26-2004 Discharged Recurring Bryce [facility] Start: 05-17-2000 End: 05-27-2000 Discharged Recurring Bryce [facility] Procedures Date Procedure Procedure Detail Performing Clinician Start: 09-12-2023 Urnls dip stick/tabl et rgnt auto w/o microscopy Brenda Stephen BRICK TENDER - CNM Work Phone: Start: 09-02-2023 H/O: section History of delivery affecting Brenda Stephen BRICK TENDER - CNM Work Phone: Start: 08-24-2023 Urinalysis microscop ic only Jagdeep MarreroAbrvenkatu DO Work Phone: Start: 08-24-2023 Urnls dip stick/tabl et rgnt auto w/o microscopy Jagdeep D'Abreau DO Work Phone: Start: 05-01-2023 Blood typing serolog ic abo Yuriy Sabillon MD Work Phone: Start: 05-01-2023 Hemoglobin glycosyla bakari a1c Yuriy Sabillon MD Work Phone: Start: 05-01-2023 Iaad ia hepatitis b surface antigen Yuriy Sabillon MD Work Phone: Start: 08-03-2022 Ct abdomen & pelvis w/o contrast material Samara Paulino MD Work Phone: Start: 08-03-2022 Urinalysis microscop ic only Samara Paulino MD Work Phone: Start: 08-03-2022 Urnls dip stick/tabl et rgnt auto w/o microscopy Samara Paulino MD Work Phone: Start: 08-03-2022 Comprehensive metabo lic panel Samara Paulino MD Work Phone: Start: 07-27-2022 Most recent diastoli c blood pressure < 80 mm hg Mariposa Duncan METAL FABRICATING SUPERVISOR Work Phone: Start: 07-27-2022 Most recent systolic blood pressure <130 mm hg Mariposa Duncan METAL FABRICATING SUPERVISOR Work Phone: Start: 07-27-2022 Urine test visual color cmprsn meths Mariposa Duncan METAL FABRICATING SUPERVISOR Work Phone: Start: 06-03-2022 Diagnostic mammograp hy computer-aided detcj bi Geoff Miller MD Work Phone: Start: 06-03-2022 Us breast uni real t jama with image limited Geoff Miller MD Work Phone: Start: 04-24-2022 Urinalysis microscop ic only Christopher Sachin PA-C Work Phone: Start: 04-24-2022 Urnls dip stick/tabl et rgnt auto w/o microscopy Christopher Sachin PA-C Work Phone: Start: 04-24-2022 Ct abdomen & pelvis w/contrast material Christopher Sachin PA-C Work Phone: Start: 04-24-2022 Comprehensive metabo lic panel Christopher Sachin PA-C Work Phone: Start: 03-04-2022 Urine test visual color cmprsn meths Peterson Benito BRICK TENDER - METAL FABRICATING SUPERVISOR Work Phone: Start: 08-17-2021 Most recent diastoli c blood pressure < 80 mm hg Kia Sharma METAL FABRICATING SUPERVISOR Work Phone: Start: 08-17-2021 Most recent systolic blood pressure <130 mm hg Kia Sharma METAL FABRICATING SUPERVISOR Work Phone: Start: 08-17-2021 Psychotherapy w/hussein ent 30 minutes Halima Argueta [facility] Work Phone: Start: 07-15-2021 Most recent diastoli c blood pressure < 80 mm hg Kia Sharma METAL FABRICATING SUPERVISOR Work Phone: Start: 07-15-2021 Most recent systolic blood pressure <130 mm hg Kia Sharma METAL FABRICATING SUPERVISOR Work Phone: Start: 07-15-2021 Psychotherapy w/hussein ent 30 minutes [facility]ima [facility]gu[facility] Work Phone: Start: 07-01-2021 Most recent diastoli c blood pressure < 80 mm hg Kia Sharma [facility] Work Phone: Start: 07-01-2021 Most recent systolic blood pressure <130 mm hg Kia Sharma [facility] Work Phone: Start: 05-28-2021 Antibody hiv-1&hiv-2 single result Kia Sharma [facility] Work Phone: Start: 05-28-2021 Most recent diastoli c blood pressure < 80 mm hg Kia Sharma [facility] Work Phone: Start: 05-28-2021 Most recent systolic blood pressure <130 mm hg Kia Sharma [facility] Work Phone: Start: 05-28-2021 Pt-focused hlth risk assmt score doc stnd instrm Kia Sharma [facility] Work Phone: Start: 05-28-2021 Viral screening Visit For: Scr eening Exam For Herpes Kia Sharma [facility] Work Phone: Start: 03-10-2021 End: 03-10-2021 Gonadotropin follicle stimulating hormone Anthony Galloway MD Work Phone: Start: 10-14-2020 Urine test visual color cmprsn meths Anthony Galloway MD Work Phone: Start: 10-09-2020 COVID-19 Sabas siddiqi MD Work Phone: Start: 04-02-2020 Microscopic observat ion [Identifier] in Cervix by Cyto stain Start: 03-20-2020 delivery only Kia Sharma Start: 03-20-2020 section Kia Sharma [facility] Work Phone: Start: 03-20-2020 Psychotherapy w/hussein ent 30 minutes Halima Argueta Work Phone: Start: 02-25-2020 Smr prim src wet boby nt nfct agt [employer] Work Phone: Start: 02-25-2020 Urinalysis microscop ic only [facility] Work Phone: Start: 02-25-2020 Urine test visual color cmprsn meths [facility] Work Phone: Start: 02-25-2020 Urnls dip stick/tabl et rgnt auto w/o microscopy [facility] Work Phone: Start: 02-15-2018 DISCHARGE PATIENT JUSTINE LOO Start: 02-13-2018 IP CONSULT TO HISTOR Y AND PHYSICAL FEI LOO Start: 02-13-2018 DIET GENERAL FEI OTORHINOLARYNGOLOGIST Start: 02-13-2018 FULL CODE FEI OTORHINOLARYNGOLOGIST Start: 02-13-2018 URINE DRUG SCREEN JUSTINE LOO Start: 02-13-2018 Urine test visual color cmprsn meths FEI AMINPTA Start: 02-13-2018 VITAL SIGNS FEI AMIN OTORHINOLARYNGOLOGIST Start: 02-13-2018 PATIENT STATUS (DIRECT) FEI LOO SARS Antigen (LFIA) PHYSICIA N NO FAMILY Plan of Treatment Date Care Activity Detail Author Start: 2053 Respiratory Syncytia l Virus (RSV) or age 60 yrs+ (1 - 1-dose 60+ series) Respiratory Syncytial Virus (RSV) or age 60 yrs+ (1 - 1-dose 60+ series) [facility] Start: 03-21-2027 DTaP/Tdap/Td vaccine (2 - Td or Tdap) DTaP/Tdap/Td vaccine (2 - Td or Tdap) [facility] Start: 03-21-2027 DTaP/Tdap/Td vaccine (2 - Td) DTaP/Tdap/Td vaccine (2 - Td) [facility] [place] Start: 04-02-2025 Screening for malign ant neoplasm of cervix [facility] Start: 10-29-2023 Respiratory Syncytia l Virus (RSV) or age 60 yrs+ (1 - Risk 1-dose series) Respiratory Syncytial Virus (RSV) or age 60 yrs+ (1 - Risk 1-dose series) [facility] Start: 09-28-2023 Influenza vaccination B ON [facility] Start: 08-25-2023 Tdap Vaccine during Tdap Vaccine during [facility] Start: 04-02-2023 Screening for malign ant neoplasm of cervix [facility] Start: 09-27-2022 Influenza vaccination B ON [facility] Start: 08-25-2022 FQHC visit, estab pt Medical E stablished Patient [facility] Work Phone: Start: 07-27-2022 End: 07-27-2022 Patient education based on identified need [facility] Start: 07-27-2022 CBC W Auto Different ial panel - Blood [facility] Start: 04-25-2022 End: 04-25-2022 Patient encounter procedure 04/25/2022 Appointment Radiology Radiologist, [facility] Start: 03-04-2022 End: 03-04-2022 Incision & drainage abscess simple/single BREAST INCISION AND DRAINAGE Abscess of right breast 03/04/2022 12:36 PM [facility] Start: 10-29-2021 [facility] Work Phone: Start: 10-28-2021 Influenza vaccination Flu vacc ine (Season Ended) [facility] Start: 10-26-2021 Referral to Nuclear Technician [facility] Work Phone: Start: 10-26-2021 Hospital admission [facility] Work Phone: Start: 09-27-2021 Influenza vaccination Flu vaccine (# 1) [facility] Start: 09-16-2021 FQHC visit, estab pt Medical E stablished Patient [facility] Work Phone: Start: 08-17-2021 FQHC visit, estab pt Medical E stablished Patient [facility] Work Phone: Start: 08-17-2021 End: 08-17-2021 Patient education based on identified need [facility] Start: 07-15-2021 FQHC visit, estab pt Medical E stablished Patient [facility] Work Phone: Start: 07-15-2021 End: 07-15-2021 Patient education based on identified need [facility] Start: 07-01-2021 End: 07-01-2021 Patient education based on identified need [facility] Start: 05-28-2021 End: 05-28-2021 Patient education based on identified need [facility] Start: 04-14-2021 End: 04-14-2021 Patient encounter procedure 04/14/2021 Office Visit Obstetrics and Gynecology Anthony Galloway MD [address] [place] [address] [facility] Part of [facility] Start: 03-05-2021 FQHC visit, estab pt Medical E stablished Patient [facility] Work Phone: Start: 10-28-[address] [facility] Start: 10-14-2020 End: 10-14-2020 Admission to same day surgery center 10/14/2020 Surgery IP Unit Anthony Galloway MD [address] [place] [address] DILATATION AND CURETTAGE LEEP-ENDOCERVICAL CURETTAGE [facility] OR Comment on above: DILATATION AND CURET TAGE LEEP-ENDOCERVICAL CURETTAGE Start: 10-14-2020 Subsequent hospital visit by physician 10/14/2020 Hospital Encounter IP Unit Anthony Galloway MD [address] [place] [address] [facility] Start: 10-09-2020 End: 10-09-2020 Patient encounter procedure 10/09/2020 Appointment Pre-Admission Testing [facility] PRE ADMIT Start: 09-25-2020 End: 09-25-2021 COVID-19 COVID-19 Lab Routine Preop testing Expected: 09/25/2020, Expires: 09/25/2021 [facility] Work Phone: Comment on above: Expected: 09/25/2020 , Expires: 09/25/2021 Start: 04-23-2020 End: 04-23-2020 Procedure visit 04/23/2020 Procedure visit Obstetrics and Gynecology Anthony Galloway MD [address] [place] [address] [phone] [facility] Start: 04-03-2020 End: 04-03-2020 Patient education based on identified need [facility] Start: 04-03-2020 Medical Establ ished Patient [facility] Work Phone: Start: 03-20-2020 End: 03-20-2020 Patient education based on identified need [facility] Start: 10-29-2019 Influenza vaccination Flu vaccine (# 1) [place], [place] Start: 2014 Screening for malign ant neoplasm of cervix Cervical cancer screen [place], [place] Start: 2011 Hepatitis C screening Hepatitis C sc reeraheel [facility] Start: 2009 COVID-19 Vaccine (1) COVID-19 Vaccin e (1) [facility] Work Phone: Start: 2008 HIV screening HIV screen [facility] Start: 2005 COVID-19 Vaccine (1) COVID-19 Vaccin e (1) [facility] Work Phone: Start: 2005 Depression Monitoring Depression Mon [facility] Start: 2005 Depression Screen Depression Screen [facility] Start: 2004 HPV vaccine (1 - 2-d ose series) HPV vaccine (1 - 2-dose series) [place], [place] Start: 1999 Pneumococcal 0-64 ye ars Vaccine (1 - PCV) Pneumococcal 0-64 years Vaccine (1 - PCV) [facility] Start: 1999 Pneumococcal 0-64 ye ars Vaccine (1 of 1 - PPSV23) Pneumococcal 0-64 years Vaccine (1 of 1 - PPSV23) [place], [place] Start: 1999 Pneumococcal 0-64 ye ars Vaccine (1 of 2 - PCV) Pneumococcal 0-64 years Vaccine (1 of 2 - PCV) [facility] Start: 1999 Pneumococcal 0-64 ye ars Vaccine (1 of 2 - PPSV23) Pneumococcal 0-64 years Vaccine (1 of 2 - PPSV23) [facility] Start: 1998 COVID-19 Vaccine (1) COVID-19 Vaccin e (1) [facility] Start: 1994 Varicella vaccine (1 of 2 - 2-dose childhood series) Varicella vaccine (1 of 2 - 2-dose childhood series) [facility] Start: 1993 COVID-19 Vaccine (#1) COVID-19 Vacci ne (#1) [facility] Start: 1993 Hepatitis B vaccine (1 of 3 - 3-dose series) Hepatitis B vaccine (1 of 3 - 3-dose series) [facility] Start: 1993 Hepatitis C screening Hepatitis C [facility] End: 08-24-2023 Bacteria identified in Urine by Culture Urine culture Microbiology Routine One Time for 1 Occurrences starting 08/24/2023 until 08/24/2023 [facility] Comment on above: One Time for 1 Occur rences starting 08/24/2023 until 08/24/2023 End: 09-12-2023 Bacteria identified in Urine by Culture Urine culture Microbiology Routine One Time for 1 Occurrences starting 09/12/2023 until 09/12/2023 [facility] Comment on above: One Time for 1 Occur rences starting 09/12/2023 until 09/12/2023 End: 02-25-2020 C.trachomatis N.gonorrhoeae DNA C.trachomatis N.gonorrhoeae DNA Microbiology STAT One Time for 1 Occurrences starting 02/25/2020 until 02/25/2020 [place] Comment on above: One Time for 1 Occur rences starting 02/25/2020 until 02/25/2020 C.trachomatis N.gonorrhoeae DNA C.trachomatis N.gonorrhoeae DNA Microbiology STAT 02/25/2020 10:29 PM EST [place], [place] Culture, Anaerobic a nd Aerobic [facility] Work Phone: Comment on above: Release Upon Orderin g for 1 Occurrences starting 03/04/2022 End: 03-25-2021 Culture, Genital [facility] Phone: Comment on above: 1 Occurrences starti ng 03/25/2021 until 03/25/2021 End: 08-03-2022 Culture, Urine [facility] [employer] Phone: Comment on above: Once for 1 Occurrenc es starting 08/03/2022 until 08/03/2022 End: 05-01-2023 Culture, Urine [facility] [employer] Phone: Comment on above: Once for 1 Occurrenc es starting 05/01/2023 until 05/01/2023 End: 05-29-2021 Culture, Virus, Non Respiratory Culture, Virus, Non Respiratory Microbiology Routine Once for 1 Occurrences starting 05/29/2021 until 05/29/2021 [facility] Phone: Comment on above: Once for 1 Occurrenc es starting 05/29/2021 until 05/29/2021 Culture, Virus, Non Respiratory Culture, Virus, Non Respiratory Microbiology Routine 05/28/2021 11:57 PM EDT [facility] Phone: End: 04-02-2020 Cytopathology procedure, preparation of smear, genital source PAP SMEAR Lab Routine Women's annual routine gynecological examination 1 Occurrences starting 04/02/2020 until 04/02/2020 [facility] Comment on above: 1 Occurrences starti ng 04/02/2020 until 04/02/2020 nonstress test nonst ress test OB Routine Daily until discontinued starting 08/25/2023 [employer] Phone: Comment on above: Daily until disconti nued starting 08/25/2023 nonstress test nonst ress test OB Routine Daily until discontinued starting 09/13/2023 [employer] Phone: Comment on above: Daily until disconti nued starting 09/13/2023 End: 05-01-2023 HIV Screen [facility] Comment on above: Once for 1 Occurrenc es starting 05/01/2023 until 05/01/2023 End: 03-04-2022 INITIATE PACU OXYGEN THERAPY PROTOCOL Initiate PACU Oxygen Therapy Protocol Respiratory Care Routine Continuous until discontinued starting 03/04/2022 [employer] Phone: Comment on above: Continuous until dis continued starting 03/04/2022 Oxygen therapy [Mini mum Data Set] Initiate Oxygen Therapy Protocol Respiratory Care Routine Daily until discontinued starting 10/14/2020 [facility] Phone: Comment on above: Daily until disconti nued starting 10/14/2020 Oxygen therapy [Mini mum Data Set] Initiate Oxygen Therapy Protocol Respiratory Care Routine As Needed until discontinued starting 03/04/2022 [employer] Phone: Comment on above: As Needed until disc ontinued starting 03/04/2022 Patient Education Schizophrenia (DC) [facility] [place] Instructions [facility] Work Phone: Patient referral [facility] Work Phone: Phase I & II - meter ed glucose Phase I & II - metered glucose Point of Care Testing Routine As Needed until discontinued starting 10/14/2020 [facility] Phone: Comment on above: As Needed until disc ontinued starting 10/14/2020 End: 08-19-2020 Surgical Pathology Surgical Pathology Lab Routine HGSIL (high grade squamous intraepithelial lesion) on Pap smear of cervix 1 Occurrences starting 08/19/2020 until 08/19/2020 [facility] Phone: Comment on above: 1 Occurrences starti ng 08/19/2020 until 08/19/2020 Surgical Pathology Surgical Path ology Lab Routine Release Upon Ordering for 1 Occurrences starting 10/14/2020 [facility] Phone: Comment on above: Release Upon Orderin g for 1 Occurrences starting 10/14/2020 End: 08-24-2023 SVE SVE Point of Care Testing Routine One Time for 1 Occurrences starting 08/24/2023 until 08/24/2023 [employer] Comment on above: One Time for 1 Occur rences starting 08/24/2023 until 08/24/2023 End: 09-12-2023 SVE SVE Point of Care Testing Routine One Time for 1 Occurrences starting 09/12/2023 until 09/12/2023 [employer] Comment on above: One Time for 1 Occur rences starting 09/12/2023 until 09/12/2023 End: 05-01-2023 T. pallidum Ab [employer] Comment on above: Once for 1 Occurrenc es starting 05/01/2023 until 05/01/2023 Immunizations Immunization Date Immunization Notes Care Provider Ralf kim 02-26-2019 Influenza, injectabl e, Madin Yuki Canine Kidney, preservative free, quadrivalent PHYSICIAN NO [facility] Payers Date Payer Category Payer Private Health Insurance [id number] 2021 Self-pay 1993 Unknown [id number] 1993 Unknown [id number] 1993 Unknown [id number] 1993 Unknown [id number] 1993 Unknown [id number] 1993 Unknown [id number] [id number] 1995 Unknown [id number] 2.16.84 [id number] 1993 Unknown [id number] 2.16.84 [id number] 1993 Unknown [id number] 2.16.84 [id number] 1993 Unknown [id number] 2.16.8 [id number] 1993 Unknown [id number] 2.16.8 [id number] 1993 Unknown [id number] 2.16.8 [id number] 1993 Unknown [id number] 2.16.8 [id number] 1993 Unknown [id number] 2.16.8 [id number] 1993 Unknown [id number] 2.16.8 [id number] 1961 Medicaid [id number] Unknown [id number] 2.16.8 [id number] Social History Date Type Detail Facility Start: 12-24-2019 End: 03-01-2022 Tobacco smoking status NHIS Current every day smoker [place], [place] History of tobacco use Cigarette Smoker [place], [place] Start: 12-24-2019 End: 09-04-2023 Cigarettes smoked current (pack per day) - Reported [place] Start: 12-24-2019 End: 09-12-2023 Tobacco use and exposure Never used [place], [place] Start: 12-24-2019 End: 09-12-2023 Alcohol intake Current non-drinker of alcohol (finding) [place], [place] Start: 1995 Sex Assigned At Not on file [place] Start: 02-19-2022 End: 04-24-2022 Exposure to SARS-CoV-2 (event) Not sure [place] Assertion Exposure to poll ution (event) [facility] Assertion Tobacco user (finding) [facility] Tobacco smoking status Unknown i f ever smoked [facility] Work Phone: Assertion Social drinker (finding) [facility] Assertion Sexually active (finding) [facility] Assertion [facility] Assertion Gender identity finding (finding) [facility] Assertion Finding of sexua l orientation (finding) [facility] Assertion Moderate cigaret te smoker (10-19 cigs/day) (finding) [facility] Assertion Heavy cigarette smoker (20-39 cigs/day) (finding) [facility] Start: 10-27-2021 Assertion Smoker (finding) [facility] Start: 1995 Sex Assigned At Female F [facility] Start: 03-01-2022 History SDOH Alcohol Frequency 1 [employer] Work Phone: Start: 03-01-2022 History SDOH Alcohol Std Drinks 0 [employer] Work Phone: Start: 03-04-2022 Alcohol Comment barely ever- sociall y [employer] Work Phone: Start: 03-01-2022 End: 09-04-2023 Alcohol Use Disorder Identification Test - Consumption [AUDIT-C] [employer] How often to you hav e a drink containing alcohol? Never [employer] Start: 09-12-2023 Tobacco smoking stat [facility] Ex-smoker [employer] Start: 03-03-2023 [facility] [employer] NEGATED: Highlighted row Assertion [facility] NEGATED: Highlighted row Assertion Current drinker of alcohol (finding) [facility] NEGATED: Highlighted row Assertion Exposure to pollution (event) [facility] Work Phone: Goals Date Patient Goal Desired Activity /State Functional Status Date Assessment Result Facility 10-29-2021 Functional status Patient at [facility] Work Phone: Mental Status Date Assessment Result Facility 10-29-2021 Cognitive function Cognitive Sta tus Patient at [facility] Work Phone: Cognitive function Cognitive fun ctioning was normal Cognitive function finding (finding) [facility] Work Phone: Clinical Notes 03-20-2020 to 09-12-2023 Ana Riley RN - 09/12/2023 7:09 PM EDAna Lang RN - 09/12/2023 6:31 PM EDTAna Riley RN - 09/12/2023 5:50 PM EDTDischarge InstructionsAttachmentsDischarge InstructionsAttachments Note Date & Type Note Facility 09-12-2023 History of Presen t illness Narrative Discharge paperwork discussed with patient, all issues and concerns addressed. Any and all questions answered. Patient verbalized understanding. Personal belongings gathered and patient ambulated out with easy respirations, no distress noted. Call made to Rocco Stephen CNM informed of pt's arrival and other complaints. Discussed urine specimen results. Reported that d/t lack of ctxs and reassuring FHR along with urine results pt may be discharged. 28yo F arrives to [facility] with c/o vaginal discharge, increased vaginal discomfort, cramping, dizziness and hot flashes Pt also reports that she has felt baby move, but states it has just felt different, not as forceful Pt reports that her fiance and her were in the process of starting intercourse and her fiance noted a large amount of thick discharge from the vagina. Pt reports they proceeded with intercourse and the next day when moving around she noted more thick mucous and after she felt lightheaded and dizzy. Pt explains that she sees Dr. Sabillon and will continue to follow him with her next appointment being on Monday. Pt reports she was concerned if she would need to deliver d/t symptoms. Educated pt [place] do not [place] less than 35 weeks unless emergent. Pt placed on [facility] at this time, urine specimen collected and sent to lab. documented in this encounter [facility] 09-12-2023 [facility] Discharg e instructions Ana Riley RN - 09/12/2023 6:51 PM EDT OUTPATIENT DISCHARGE Dr Delano Stephen [facility] [address] [address] [id number] [phone] ACTIVITY LIMITATIONS: ( )Up and about as desired and tolerated ( )Up to bathroom only ( )Lay on either side ( )Avoid heavy lifting or exercise ( )No sex ( )No nipple stimulation ( )Complet bedrest ( )Avoid using stairs ( )Increase fluids DRINK AT LEAST eight-8oz. Glasses of water daily. Call your Doctor if: ( )Contractions are every 5 minutes apart (from start of one to the start of the next contraction) lasting 60 seconds for at least 1 hour, strong enough you can not walk or talk through the contraction and regular. ( )Bag of water breaks ( )Vaginal bleeding ( )Unusual pain occurs ( )Decreased movement ( ) labor: If you have 4 contractions in an hour Keep your scheduled follow up appointment. Or call for a follow up on . IN CASE OF EMERGENCY CONTACT LABOR AND DELIVERY . The following attachments cannot be sent through Care Everywhere.: Abdominal Pain (Honduran)documented in this encounter [facility] 08-24-2023 [facility] Discharg e Iman Mark RN - 08/24/2023 8:40 PM EDT OUTPATIENT DISCHARGE Dr. Laverne Meyer [facility] Dr. Delano Kruse [facility] [address] [facility] [address] [facility] [address] [place] ACTIVITY LIMITATIONS: ( x )Up and about as desired and tolerated ( )Up to bathroom only ( )Lay on either side ( )Avoid heavy lifting or exercise ( )No sex ( )No nipple stimulation ( )Complet bedrest ( )Avoid using stairs ( x )Increase fluids DRINK AT LEAST eight-8oz. Glasses of water daily. Call your Doctor if: ( )Contractions are every 5 minutes apart (from start of one to the start of the next contraction) lasting 60 seconds for at least 1 hour, strong enough you can not walk or talk through the contraction and regular. ( x )Bag of water breaks ( x )Vaginal bleeding ( x )Unusual pain occurs ( x )Decreased movement ( x ) labor: If you have 4 contractions in an hour Keep your scheduled follow up appointment. Or call for a follow up on . IN CASE OF EMERGENCY CONTACT LABOR AND DELIVERY . documented in this encounter [facility] 08-03-2022 Hospital Discharg e instructions Samara Paulino MD - 08/03/2022 9:33 AM EDT Patient [...] cannot be sent through Care Everywhere.Flank Pain (Honduran)UTI (Urinary Tract Infection): Female (Honduran)documented in this encounter [facility] Work Phone: 07-27-2022 Instructions Includes: Instructions for all patient encounters Discussed nutritional needs teach healthy choices including fruits and vegetables Last Documented On 3 6:56PM ; [facility] Patient education about a pr oper diet Last Documented On 3 6:56PM ; [facility] Patient education about an a sthma action plan Last Documented On 3 8:31AM ; [facility] Discussed concerns about exe rcise : promote physical activity ~ ~Will add symbicort ~ ~Follow up in one month Last Documented On 3 10:19AM ; [facility] Discussed current self-care methods/coping skills. ~Validated and normalized pt?s feelings while assisting patient process recent events. ~Discussed ongoing counseling. ~Discussed lifestyle changes to address chronic illness. ~Supported patient's personal health goals Last Documented On 2 4:59PM ; [facility] Discussed nutritional needs teach healthy choices including fruits and vegetables Last Documented On 2 4:50PM ; [facility] Patient education about a pr oper diet Last Documented On 2 4:50PM ; [facility] Discussed concerns about exe rcise : promote physical activity Last Documented On 2 4:50PM ; [facility] Discussed current self-care methods/coping skills. ~Validated and normalized pt?s feelings while assisting patient process recent events. ~Discussed ongoing counseling. ~Discussed lifestyle changes to address chronic illness. ~Supported patient's personal health goals Last Documented On 2 8:09PM ; [facility] Discussed nutritional needs teach healthy choices including fruits and vegetables Last Documented On 2 4:02PM ; [facility] Patient education about a pr oper diet Last Documented On 2 4:02PM ; [facility] Discussed concerns about exe rcise : promote physical activity Last Documented On 2 4:02PM ; [facility] Discussed nutritional needs teach healthy choices including fruits and vegetables Last Documented On 2 5:37PM ; [facility] Patient education about a pr oper diet Last Documented On 2 5:37PM ; [facility] Discussed concerns about exe rcise : promote physical activity Last Documented On 2 5:37PM ; [facility] Discussed nutritional needs teach healthy choices including fruits and vegetables Last Documented On 2 6:48PM ; [facility] Patient education about a pr oper diet Last Documented On 2 6:48PM ; [facility] Discussed concerns about exe rcise : promote physical activity Last Documented On 2 6:48PM ; [facility] Discussed nutritional needs teach healthy choices including fruits and vegetables Last Documented On 1 4:21PM ; [facility] Patient education about a pr oper diet Last Documented On 1 4:21PM ; [facility] Discussed concerns about exe rcise : promote physical activity Last Documented On 1 4:21PM ; [facility] Explored current self-care m ethods and encouraged patient to continue using them Last Documented On 1 7:54PM ; [facility] Discussed nutritional needs teach healthy choices including fruits and vegetables Last Documented On 1 11:53AM ; [facility] Patient education about a pr oper diet Last Documented On 1 11:53AM ; [facility] Discussed concerns about exe rcise : promote physical activity Last Documented On 1 11:53AM ; [facility] Work Phone: 1(846) 734-715005-31-2023 Evaluation note Includes: Assessments for all patient encounters Findings Encounter Date [Body mass index [BMI] 22.0- 22.9, adult] assessment of body mass index Medical Established Patient with Mariposa Duncan ROLF 07/27/2022 Last Documented On 3 10:19AM ; [facility] Diabetes Risk Test Score was 0.0 score 07/27/2022 Medical Established Patient with Mariposa Duncan METAL FABRICATING SUPERVISOR 07/27/2022 Last Documented On 3 10:19AM ; [facility] Esophageal reflux without esophagitis Me dical Established Patient with Maripoas Rossdenton BANSAL 07/27/2022 Last Documented On 3 10:19AM ; [facility] Schizoaffective disorder Established Patient with Halima Argueta LPCC-S 08/17/2021 Last Documented On 2 9:40PM ; [facility] Asthma Medical Established Patient with Kia Héctor METAL FABRICATING SUPERVISOR 08/17/2021 Last Documented On 2 6:20PM ; [facility] Esophageal reflux without esophagitis Me dical Established Patient with Kia Héctor METAL FABRICATING SUPERVISOR 08/17/2021 Last Documented On 2 6:20PM ; [facility] Schizoaffective disorder Medical Establi shed Patient with Kia Héctor METAL FABRICATING SUPERVISOR 08/17/2021 Last Documented On 2 6:20PM ; [facility] Z68.20 - Body mass index [BM I] 20.0-20.9, adult Medical Established Patient with Kia Héctor METAL FABRICATING SUPERVISOR 08/17/2021 Last Documented On 2 6:20PM ; [facility] Schizoaffective disorder Established Patient with Halima Argueta LPCC-S 07/15/2021 Last Documented On 2 11:18AM ; [facility] Schizoaffective disorder Established Patient with Halima Argueta LPCC-S 07/15/2021 Last Documented On 2 11:18AM ; [facility] Bipolar disorder NOS Medical Established Patient with Kia Héctor METAL FABRICATING SUPERVISOR 07/15/2021 Last Documented On 2 9:30AM ; [facility] Esophageal reflux without esophagitis Me dical Established Patient with Kia Héctor METAL FABRICATING SUPERVISOR 07/15/2021 Last Documented On 2 9:30AM ; [facility] Herpes simplex type I Medical Established Patien t with Kia Héctor [facility] 07/15/2021 Last Documented On 2 9:30AM ; [facility] Z68.1 - Body mass index [BMI ] 19.9 or less, adult Medical Established Patient with Kia Héctor METAL FABRICATING SUPERVISOR 07/15/2021 Last Documented On 2 9:30AM ; [facility] Asthma Medical Established Patient with Kia Héctor METAL FABRICATING SUPERVISOR 07/01/2021 Last Documented On 2 7:44PM ; [facility] Bipolar disorder NOS Medical Established Patient with Kia Héctor METAL FABRICATING SUPERVISOR 07/01/2021 Last Documented On 2 7:44PM ; [facility] Herpes simplex type I Medical Established Patien t with Kia Sharma METAL FABRICATING SUPERVISOR 07/01/2021 Last Documented On 2 7:44PM ; [facility] Schizoaffective disorder Medical Establi shed Patient with Kia Héctor METAL FABRICATING SUPERVISOR 07/01/2021 Last Documented On 2 7:44PM ; [facility] Z68.20 - Body mass index [BM I] 20.0-20.9, adult Medical Established Patient with Kia Héctor METAL FABRICATING SUPERVISOR 07/01/2021 Last Documented On 2 7:44PM ; [facility] Diabetes Risk Test Score was one score 05/28/2021 Medical Established Patient with Kia Héctor METAL FABRICATING SUPERVISOR 05/28/2021 Last Documented On 2 8:39AM ; [facility] Herpes simplex type I Medical Established Patien t with Kia Sharma METAL FABRICATING SUPERVISOR 05/28/2021 Last Documented On 2 8:39AM ; [facility] No cough Medical Established Patient with Kia Héctor METAL FABRICATING SUPERVISOR 05/28/2021 Last Documented On 2 8:39AM ; [facility] Visit for: screening for hum an immunodeficiency virus Medical Established Patient with Kia Sharma METAL FABRICATING SUPERVISOR 05/28/2021 Last Documented On 2 8:39AM ; [facility] Z11.59 - Encounter for nettie kauffman for other viral diseases Medical Established Patient with Kia Sharma METAL FABRICATING SUPERVISOR 05/28/2021 Last Documented On 2 8:39AM ; [facility] Z68.1 - Body mass index [BMI ] 19.9 or less, adult Medical Established Patient with Kia Héctor METAL FABRICATING SUPERVISOR 05/28/2021 Last Documented On 2 8:39AM ; [facility] Asthma Medical Established Patient with Kia Héctor METAL FABRICATING SUPERVISOR 04/03/2020 Last Documented On 1 1:12PM ; [facility] Body mass index Medical Established Patient with Kia Héctor METAL FABRICATING SUPERVISOR 04/03/2020 Last Documented On 1 1:12PM ; [facility] Esophageal reflux without esophagitis Me dical Established Patient with Kia Héctor METAL FABRICATING SUPERVISOR 04/03/2020 Last Documented On 1 1:12PM ; [facility] Lower backache Medical Established Patient with Kia Sharma METAL FABRICATING SUPERVISOR 04/03/2020 Last Documented On 1 1:12PM ; [facility] Bipolar disorder (per denia vega, diagnosed w/both Bipolar I & II) Telebehavioral Health with Halima Argueat [facility] 03/20/2020 Last Documented On 1 7:55PM ; [facility] Schizoaffective disorder (pe r patient report) Telebehavioral Health with Halima Argueta [facility] 03/20/2020 Last Documented On 1 7:55PM ; [facility] Asthma Telemedicine New Patient with An michelle Sharma METAL FABRICATING SUPERVISOR 03/20/2020 Last Documented On 1 9:48AM ; [facility] Lumbago Telemedicine New Patient with An michelle Sharma METAL FABRICATING SUPERVISOR 03/20/2020 Last Documented On 1 9:48AM ; [facility] Z68.21 - Body mass index [BM I] 21.0-21.9, adult Telemedicine New Patient with Kia Sharma METAL FABRICATING SUPERVISOR 03/20/2020 Last Documented On 1 9:48AM ; [facility] Work Phone: 1(338) 705-848805-31-2023 Progress note* Progress note Date Encounter Last Documented by 07/27/2022 Medical Established Patient Last documented on 07/28/2022; 10:19 AM, Mariposa Duncan METAL FABRICATING SUPERVISOR; [facility] Active Problems & Conditions - J45.998 - Asthma - M54.50 - Backache Lower - K21.9 - Esophageal Reflux Without Esophagitis - 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 - F25.0 - Schizoaffective Disorder Chief Complaint The Chief Complaint is: Patient states feels like gerd is coming back, patient states that burps smell like rotten eggs or bale sewer went to ER for migraines. Referred Here Not referred by urgent care clinic. Referred by emergency room. No prior encounters. - Data to be reviewed: no clinical lab tests History of Present Illness Kiley Vaughn is a 27 year old female. [...] BP-Sitting L117/63 mmHg BP Cuff SizeRegular Pulse Rate-Rolnrfm96 bpm Temp-Gtjtbgsn72.3 F Vmnuyd95 in Xkahmf167 lbs 4.8 oz Body Mass Index22 kg/m2 Body Surface Area1.8 m2 Oxygen Nbhlonqavs27 % General Appearance: - Awake. - Alert. [...] household were unable to get needed child psychologist: No and unable to get other needs [...] Less than 40 years (0 points) [Pre-DM]. [facility]05-31-2023 Reason for referral (narrative)* Date Encounter Description Provider Reason for Referral 07/27/22 Medical Established Patient Mariposa Duncan METAL FABRICATING SUPERVISOR Referral To Mental Health Team; JENIFFER Referral For [facility] Work Phone: 1(473) 565-208702-26-2023 Hospital Discharge instructions* Discharge Instructions* Christopher Stephenson [...] through Care Everywhere. * Nausea and Vomiting (Honduran) [facility] Phone: 1(853) 474-112601-06-2023 History of Present illness Narrative* Martha Melgoza [...] smoked today 03/03/22. [facility] [employer] Work Phone: [phone]) 878-872901-06-2023 Hospital Discharge instructions* Discharge Instructions* Kassidy Davidson [...] to bathe or shower. [facility] Phone: 1(153) 658-351401-03-2023 Hospital Discharge instructions* Discharge Instructions* Nicholas Denton MD - 03/01/2022 8:09 AM EST Take your medications as prescribed. You may take Tylenol Motrin as needed for pain control as wellas warm compresses. Follow-up with your OB caddie as scheduled. You have been given a referral for general surgeon if this continues for further assessment of possible drainage. * Attachments The following attachments cannot be sent through Care Everywhere. * Cellulitis (Honduran) documented in [facility] Phone: [phone]) 511-660106-21-2022 Evaluation note Includes: Assessments for all patient encounters Findings Encounter Date Schizoaffective disorder Established [facility]/17[facility]2021 Asthma Medical Established Patient with Kia Sharma [facility] 08/17/2021 Esophageal reflux without esophagitis Me dical Established Patient with Kia Sharma [facility] 08/17/2021 Schizoaffective disorder Medical Establi shed Patient with Kia Sharma [facility] 08/17/2021 Z68.20 - Body mass index [BM I] 20.0-20.9, adult Medical Established Patient with Kia Sharma [facility] 08/17/2021 Schizoaffective disorder Established Patient with Halima Argueta [facility] 07/15/2021 Schizoaffective disorder Established Patient with Halima Argueta [facility] 07/15/2021 Bipolar disorder NOS Medical Established Patient with Kia Sharma [facility] 07/15/2021 Esophageal reflux without esophagitis Me dical Established Patient with Kia Héctor [facility] 07/15/2021 Herpes simplex type I Medical Establishe d Patient with Kia Sharma [facility] 07/15/2021 Z68.1 - Body mass index [BMI ] 19.9 or less, adult Medical Established Patient with Kia Héctor [facility] 07/15/2021 Asthma Medical Established Patient with Kia Héctor METAL FABRICATING SUPERVISOR 07/01/2021 Bipolar disorder NOS Medical Established Patient with Kia Héctor [facility] 07/01/2021 Herpes simplex type I Medical Establishe d Patient with Kia Héctor [facility] 07/01/2021 Schizoaffective disorder Medical Establi shed Patient with Kia Sharma [facility] 07/01/2021 Z68.20 - Body mass index [BM I] 20.0-20.9, adult Medical Established Patient with Kia Sharma [facility] 07/01/2021 Diabetes Risk Test Score was one score 05/28/2021 Medical Established Patient with Kia Sharma [facility] 05/28/2021 Herpes simplex type I Medical Establishe d Patient with Kia Héctor [facility] 05/28/2021 No cough Medical Established Patient with Kia Sharma [facility] 05/28/2021 Visit for: screening for hum an immunodeficiency virus Medical Established Patient with Kia Sharma [facility] 05/28/2021 Z11.59 - Encounter for nettie kauffman for other viral diseases Medical Established Patient with Kia Sharma [facility] 05/28/2021 Z68.1 - Body mass index [BMI ] 19.9 or less, adult Medical Established Patient with Kia Sharma [facility] 05/28/2021 Asthma Medical Established Patient with Kia Héctor [facility] 04/03/2020 Body mass index Medical Established Patient with Kia Sharma [facility] 04/03/2020 Esophageal reflux without esophagitis Me dical Established Patient with Kia Héctor [facility] 04/03/2020 Lower backache Medical Established Patient with Kia Héctor [facility] 04/03/2020 Bipolar disorder (per denia vega, diagnosed w/both Bipolar I & II) Telebehavioral Health with Halima Argueta [facility] 03/20/2020 Schizoaffective disorder (pe r patient report) Telebehavioral Health with Halima Argueta [facility] 03/20/2020 Asthma Telemedicine New Pat ient with Kia Sharma [facility] 03/20/2020 Lumbago Telemedicine New Pat ient with Kia Sharma [facility] 03/20/2020 Z68.21 - Body mass index [BM I] 21.0-21.9, adult Telemedicine New Patient with Kia Sharma [facility] 03/20/2020 [facility] Work Phone: 1([phone]) 654-880205-19-2022 Evaluation note Includes: Assessments for all patient encounters Findings Encounter Date Schizoaffective disorder BH Established Patient with Halima Condonmons [facility] 07/15/2021 Schizoaffective disorder Established Patient with Halima Argueta [facility] 07/15/2021 Bipolar disorder NOS Medical Established Patient with Kia Sharma [facility] 07/15/2021 Esophageal reflux without esophagitis Me dical Established Patient with Kia Sharma [facility] 07/15/2021 Herpes simplex type I Medical Establishe d Patient with Kia Sharma [facility] 07/15/2021 Z68.1 - Body mass index [BMI ] 19.9 or less, adult Medical Established Patient with Kia Sharma [facility] 07/15/2021 Asthma Medical Established Patient with Kia Sharma [facility] 07/01/2021 Bipolar disorder NOS Medical Established Patient with Kia Sharma [facility] 07/01/2021 Herpes simplex type I Medical Establishe d Patient with Kia Sharma [facility] 07/01/2021 Schizoaffective disorder Medical Establi shed Patient with Kia Sharma [facility] 07/01/2021 Z68.20 - Body mass index [BM I] 20.0-20.9, adult Medical Established Patient with Kia Sharma [facility] 07/01/2021 Diabetes Risk Test Score was one score 05/28/2021 Medical Established Patient with Kia Sharma [facility] 05/28/2021 Herpes simplex type I Medical Establishe d Patient with Kia Héctor [facility] 05/28/2021 No cough Medical Established Patient with Kia Héctor [facility] 05/28/2021 Visit for: screening for hum an immunodeficiency virus Medical Established Patient with Kia Sharma [facility] 05/28/2021 Z11.59 - Encounter for scree jamari for other viral diseases Medical Established Patient with Kiafranco Sharma [facility] 05/28/2021 Z68.1 - Body mass index [BMI ] 19.9 or less, adult Medical Established Patient with Kia Sharma [facility] 05/28/2021 Asthma Medical Established Patient with Kia Sharma [facility] 04/03/2020 Body mass index Medical Established Patient with Kia Sharma [facility] 04/03/2020 Esophageal reflux without esophagitis Me dical Established Patient with Kiafranco Sharma [facility] 04/03/2020 Lower backache Medical Established Patient with Kia Sharma [facility] 04/03/2020 Bipolar disorder (per denia vega, diagnosed w/both Bipolar I & II) Telebehavioral Health with Halima Condonmons [facility] 03/20/2020 Schizoaffective disorder (pe r patient report) Telebehavioral Health with Halimachuck Argueta [facility] 03/20/2020 Asthma Telemedicine New Pat ient with Kia Sharma [facility] 03/20/2020 Lumbago Telemedicine New Pat ient with Kia Sharma [facility] 03/20/2020 Z68.21 - Body mass index [BM I] 21.0-21.9, adult Telemedicine New Patient with Kia Sharma [facility] 03/20/2020 [facility] Work Phone: 1(462) 283-442205-05-2022 Evaluation note Includes: Assessments for all patient encounters Findings Encounter Date Asthma Medical Established Patient with Kia Sharma [facility] 07/01/2021 Bipolar disorder NOS Medical Established Patient with Kia Sharma [facility] 07/01/2021 Herpes simplex type I Medical Establishe d Patient with Kia Sharma [facility] 07/01/2021 Schizoaffective disorder Medical Establi shed Patient with Kia Sharma [facility] 07/01/2021 Z68.20 - Body mass index [BM I] 20.0-20.9, adult Medical Established Patient with Kia Sharma [facility] 07/01/2021 Diabetes Risk Test Score was one score 05/28/2021 Medical Established Patient with Kia Sharma [facility] 05/28/2021 Herpes simplex type I Medical Establishe d Patient with Kia Sharma [facility] 05/28/2021 No cough Medical Established Patient with Kia Sharma [facility] 05/28/2021 Visit for: screening for hum an immunodeficiency virus Medical Established Patient with Kia Sharma [facility] 05/28/2021 Z11.59 - Encounter for scree jamari for other viral diseases Medical Established Patient with Kia Sharma [facility] 05/28/2021 Z68.1 - Body mass index [BMI ] 19.9 or less, adult Medical Established Patient with Kia Sharma [facility] 05/28/2021 Asthma Medical Established Patient with Kia Sharma [facility] 04/03/2020 Body mass index Medical Established Patient with Kia Sharma [employer] 04/03/2020 Esophageal reflux without esophagitis Me dical Established Patient with Kia Héctor [employer] 04/03/2020 Lower backache Medical Established Patient with Kia Héctor [employer] 04/03/2020 Bipolar disorder (per patien t, diagnosed w/both Bipolar I & II) Telebehavioral Health with Halimach[place] Argueta [facility] 03/20/2020 Schizoaffective disorder (pe r patient report) Telebehavioral Health with Halimachuck Marroquins [facility] 03/20/2020 Asthma Telemedicine New Pat ient with Kia Sharma [employer] 03/20/2020 Lumbago Telemedicine New Pat ient with Kia Shamra [facility] 03/20/2020 Z68.21 - Body mass index [BM I] 21.0-21.9, adult Telemedicine New Patient with Kia Sharma [facility] 03/20/2020 [facility] Work Phone: 1(770) 138-504504-01-2022 Evaluation note Includes: Assessments for all patient encounters Findings Encounter Date Diabetes Risk Test Score was one score 05/28/2021 Medical Established Patient with Kia Sharma [employer] 05/28/2021 Herpes simplex type I Medical Establishe d Patient with Kia Héctor [employer] 05/28/2021 No cough Medical Established Patient with Kia Sharma [facility] 05/28/2021 Visit for: screening for hum an immunodeficiency virus Medical Established Patient with Kia Sharma [facility] 05/28/2021 Z11.59 - Encounter for nettie kauffman for other viral diseases Medical Established Patient with Kia Sharma [facility] 05/28/2021 Z68.1 - Body mass index [BMI ] 19.9 or less, adult Medical Established Patient with Kia Héctor [employer] 05/28/2021 Asthma Medical Established Patient with Kia Héctor [employer] 04/03/2020 Body mass index Medical Established Patient with Kia Héctor [employer] 04/03/2020 Esophageal reflux without esophagitis Me dical Established Patient with Kia Héctor [employer] 04/03/2020 Lower backache Medical Established Patient with Kia Sharma [employer] 04/03/2020 Bipolar disorder (per husseinen t, diagnosed w/both Bipolar I & II) Telebehavioral Health with Halimachuck Argueta [facility] 03/20/2020 Schizoaffective disorder (pe r patient report) [facility] 03/20/2020 Asthma Telemedicine New Pat ient with Kia Sharma [employer] 03/20/2020 Lumbago Telemedicine New Pat ient with Kia Sharma [facility] 03/20/2020 Z68.21 - Body mass index [BM I] 21.0-21.9, adult Telemedicine New Patient with Kia Sharma [facility] 03/20/2020 [facility] Work Phone: 1(416) 905-444008-18-2021 History of Present illness Narrative* Irish Nelson [...] RN - 10/14/2020 12:39 PM EDT Rogers STENOCAPTIONER in to see patient. Patient's boyfriend called to picket labor union. * Rufina Hamilton RN - 09/28/2020 7:52 [...] calls at this time. [facility]: [phone]) 847-102502-05-2021 Evaluation note Includes: Assessments for all patient encounters Findings Encounter Date Asthma Medical Established Patient with Kia Sharma [facility] 04/03/2020 Body mass index Medical Established Patient with Kia Sharma [facility] 04/03/2020 Esophageal reflux without esophagitis Me dical Established Patient with Kia Héctor [facility] 04/03/2020 Lower backache Medical Established Patient with Kiafranco Sharma [facility] 04/03/2020 Bipolar disorder (per denia vega, diagnosed w/both Bipolar I & II) Telebehavioral Health with Halima Arugeta [facility] 03/20/2020 Schizoaffective disorder (pe r patient report) Telebehavioral Health with Halima Argueta [facility] 03/20/2020 Asthma Telemedicine New Pat ient with Kia Sharma [facility] 03/20/2020 Lumbago Telemedicine New Pat ient with Kia Sharma [facility] 03/20/2020 Z68.21 - Body mass index [BM I] 21.0-21.9, adult Telemedicine New Patient with Kia Sharma [facility] 03/20/2020 [facility] Work Phone: 1(359) 728-200101-22-2021 History general Narrative - Reported Includes: Medical History in patient's chart Description Last Updated per pt report- 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 ~heartb urn 03/20/2020 History of psychiatric disor ders ADHD, manic bipolar 1 and 2, schizoeffective disorder 03/20/2020 History of tooth extraction 03/20/2020 History of asthma 03/20/2020 A recent immunization for flu 03/20/2020 No previous hospitalizations 03/20/2020 [facility] Work Phone: 1(900) 578-138801-22-2021 History general Narrative - Reported Includes: Medical History in patient's chart Description Last Updated per pt report- 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 ~heartb urn 03/20/2020 Last Documented On 1 9:48AM ; [facility] History of psychiatric disor ders ADHD, manic bipolar 1 and 2, schizoeffective disorder 03/20/2020 Last Documented On 1 9:48AM ; [facility] History of tooth extraction 03/20/2020 Last Documented On 1 9:48AM ; [facility] History of asthma 03/20/2020 Last Documented On 1 9:48AM ; [facility] A recent immunization for flu 03/20/2020 Last Documented On 1 9:48AM ; [facility] No previous hospitalizations 03/20/2020 Last Documented On 1 9:48AM ; [facility] Work Phone: Discharge summary Author Osmani baugh [facility] October 29, 2021 9:52am Note Date/Time October 29, 2021 9:52am [facility] [address] [place] [address] Discharge Summary Signed Patient: Kiley Vaughn MR#: [id number] : 1995 Acct:[id number] Age/Sex: 26 / F Adm Date: 2 Loc: Room: [address] [place] [address]: Feliberto Faust MD Copies to: [...] Alcohol use: once a year Substance Use: luciethee daily Living: boyfriend 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 [...] 15 Days Qty: 30 1RF Follow Up: Confucianism Nuclear Technician [Other] (Therapy: Case management: ) Documented By: Osmani Timmons MD 2 0949 Signed By: <Electronically signed by Osmani Timmons MD> 10/29/21 0952 [facility] Work Phone: Evaluation note* Diagnosis HGSIL (high grade squamous intraepithelial lesion) on Pap smear of cervix documented in this encounter [facility] Phone: [email or web address] note* Diagnosis Preop testing- Primary Preoperative examination, unspecified documented in this encounter [facility] Phone: evaluation note* Diagnosis Preop testing Preoperative examination, unspecified documented in this encounter [facility] Phone: evaluation note* Diagnosis 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 documented in this encounter [facility] Phone: [email or web address] note* Diagnosis Irregular menstrual cycle documented in this encounter [facility] Phone: [email or web address] note* Diagnosis Vaginal discharge Leukorrhea, not specified as infective documented in this encounter [facility] Phone: evaluation note* Diagnosis Onset Date Resolution Status Bipolar affective, mixed, sev w/ psych acute Chronic schizophrenia acute PTSD (post-traumatic stress disorder) acute Suicidal ideation acute [facility] Work Phone: Evaluation note* Diagnosis Cellulitis of right breast- Primary documented in this encounter [facility] Work Phone: evaluation note* Diagnosis Abscess of right breast- Primary Inflammatory disease of breast Abscess of right breast Inflammatory disease of breast documented in this encounter [facility] Phone: evaluation note* Diagnosis Nausea vomiting and diarrhea- Primary Nausea with vomiting documented in this encounter [facility] Phone: evaluation note* Diagnosis Abscess of female breast Inflammatory disease of breast documented in this encounter [facility] Phone: [email or web address] note* Diagnosis Flank pain- Primary Abdominal pain, unspecified site Urinary tract infection without hematuria, site unspecified documented in this encounter [facility] Phone: evaluation note* Diagnosis Abdominal pain- Primary Abdominal pain, unspecified site documented in this encounter [facility]* Diagnosis Abdominal cramping- Primary Abdominal pain, unspecified site documented in this encounter [facility] physical note Author Feliberto Faust [facility] October 27, 2021 3:07pm Note Date/Time October 27, 2021 3: 07pm [facility] [address] [place] [address] Psychiatry H&P Signed Patient: Kiley Vaughn MR#: [id number] : 1995 Acct:[id number] Age/Sex: 26 / F Adm Date: 2 Loc: Room: [address] [place] [address] Type: ADM IN Attending Dr: Feliberto Faust [...] sonia daily Living: boyfriend 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 Review of symptoms: Constitutional: Denies chills [...] Appearance Clear Urine pH 7.0 Ur Specific [place] 1.005 Urine Protein Negative Urine Glucose (UA) [...] <Electronically signed by Feliberto Faust MD> 10/27/21 1136 [facility] Work Phone: History of Present illness Narrative History of Present Illness not supported for this document type No History of Present Illness [facility] Work Phone: Hospital Discharge instructions* Instructions* Irish Nelson, RN - 10/14/2020 SAME DAY SURGERY DISCHARGE [...] In the meantime, you may take an jynj-bfm-epqeaoo analgesic (Tylenol, Anacin, etc.) and use a heating pad applied to the lower abdomen. Please call the office as soon as possible for a post-operative visit in two weeks. If you experience any unusual amount of bleeding or side effects that you cannot readily explain, please do not hesitate to call the office. [facility] Work Phone: Hospital Discharge instructions Additional Instructions Regular diet [facility] Work Phone: Instructions Instructions not supported for this document type No Instructions [facility] Work Phone: Patient problem outcome Narrative Includes: Evaluations & Outcomes for active Goals No Outcomes [facility] Work Phone: Progress note Author Osmani baugh [facility] October 28, 2021 12:18pm Note Date/Time October 28, 2021 12:18pm [facility] [address] [place] [address] Psychiatry Progress Note Signed Patient: Kiley Vaughn MR#: [id number] : 1995 Acct:[id number] Age/Sex: 26 / F Adm Date: 2 Loc: Room: [address] [place] [address] Type : ADM IN Attending Dr: Feliberto Faust MD Copies to: ~ Date of Service: 10/28/2021 Subjective Subjective Narrative: Kiley reports improving mood. She states that she [...] signed by Osmani Timmons MD> 10/28/21 1218 [facility] Work Phone: Reason for referral (narrative)No Reason for Referral [facility] Work Phone: Review of systems Narrative - Reported Review of Systems not supported for this document type No Review of Systems [facility] Work Phone: Summary Purpose Family History Description Last Updated father unknown 03/20/2020 Fraternal history of asthma 03/20/2020 Maternal history of hypertension 021 Relationship Condition Age at Onset Recorded Date/T jama Not Specified Bipolar affective disorder Unknown Hypertension Unknown brother Asthma Unknown Description Last Updated father unknown 03/20/2020 Last Documented On 9:48AM ; [facility] Fraternal history of asthma 03/20/2020 Maternal history of hypertension 021 Advance Directives Documents on File Type Date Recorded Patient Toddler Nanny Expl anation ACP-Advance Directive ACP-Power of Air Antisubmarine Officer Latest Code Status on File Code Status Date Activated Date Inactivated Comments Full Code 02/13/2018 11:30 AM 02/15/2018 11:04 PM Full Code 07/15/2017 3:32 AM 07/17/2017 3:26 PM Full Code 07/15/2017 3:31 AM 07/15/2017 3:32 AM Full Code 10/29/2016 5:43 AM 11/02/2016 12:08 AM Full Code 02/14/2015 3:50 AM 02/17/2015 4:19 PM Documents on File Type Date Recorded Patient Toddler Nanny Expl anation ACP-Advance Directive ACP-Power of Air Antisubmarine Officer Latest Code Status on File Code Status [...] Healthcare Agent Relationshi p Communication Aaron Dagoberto Other Primary Decision Maker Healthcare Agents on File Name Jose C Healthcare Lupe tejeda Communication Aaron Arenas Other Primary Decision Maker Latest Code Status on File Code Status Date Activated Date Inactivated Comments Full Code 08/24/2023 8:10 PM Code Status History Code Status Date Activated Date Inactivated Comments Full Code 03/04/2022 10:59 AM 03/04/2022 4:35 PM Full Code 10/14/2020 9:13 AM 10/14/2020 3:32 PM Full Code 02/13/2018 11:30 AM 02/15/2018 11:04 PM Full Code 07/15/2017 3:32 AM 07/17/2017 3:26 PM Healthcare Agents on File Name Jose C tejeda Communication Aaron Arenas Other Primary Decision Maker Latest Code Status on File Code Status Date Activated Date Inactivated Comments Full Code 09/12/2023 6:04 PM Code Status History Code Status Date Activated Date Inactivated Comments Full Code 09/04/2023 10:29 PM 09/05/2023 1:57 AM Full Code 09/02/2023 10:43 PM 09/03/2023 2:29 AM Full Code 08/24/2023 8:10 PM 08/24/2023 11:12 PM Full Code 03/04/2022 10:59 AM 03/04/2022 4:35 PM Healthcare Agents on File Name Jose C [...] sent through Care Everywhere. * Tooth: Abscessed (Honduran) documented in this encounter* Instructions* Sid Norris [...] sent through Care Everywhere. * Bacterial Vaginosis (Honduran) * Vaginal Bleeding (Honduran) documented in this encounter* Instructions* Irina Ojeda PA-C - 02/06/2020 Call your dentist to arrange follow-up for recheck this week. * Attachments The following attachments cannot be sent through Care Everywhere. * Tooth: Abscessed (Honduran) documented in this encounter* Instructions* Jose Saldaña APRN - METAL FABRICATING SUPERVISOR - 12/24/2019 Take amoxicillin as prescribed. Return to the emergency department for worsening symptoms. * Attachments The following attachments cannot be sent through Care Everywhere. * Dental Care: Pre-Dental Work Precautions: General Info (Honduran) documented in this encounter Assessments Diagnosis Dental infection Acute apical periodontitis of pulpal origin Diagnosis Dental abscess Periapical abscess without sinus Dental caries Unspecified dental caries Diagnosis Bacterial vaginosis- Primary Vaginitis and vulvovaginitis, unspecified Vaginal bleeding Other specified noninflammatory disorder of vagina Findings Encounter Date Bipolar disorder (per denia vega, diagnosed w/both Bipolar I & II) Telebehavioral Health with Halima Argueta [facility] 03/20/2020 Schizoaffective disorder (pe r patient report) Telebehavioral Health with Halima Argueta [facility] 03/20/2020 Asthma Telemedicine New Pat ient with Kia Sharma [facility] 03/20/2020 Lumbago Telemedicine New Pat ient with Kia Sharma [facility] 03/20/2020 Z68.21 - Body mass index [BM I] 21.0-21.9, adult Telemedicine New Patient with Kia Sharma [facility] 03/20/2020 Diagnosis Women's annual routine gynecological examination Findings Encounter Date Asthma Medical Established Patient with Kia Sharma [facility] 04/03/2020 Body mass index Medical Established Patient with Kia Sharma [facility] 04/03/2020 Esophageal reflux without esophagitis Me dical Established Patient with Kia Sharma [facility] 04/03/2020 Lower backache Medical Established Patient with Kia Sharma [facility] 04/03/2020 Bipolar disorder (per denia vega, diagnosed w/both Bipolar I & II) Telebehavioral Health with Halima Condonmons [facility] 03/20/2020 Schizoaffective disorder (pe r patient report) Telebehavioral Health with Halimachuck Argueta [facility] 03/20/2020 Asthma Telemedicine New Pat ient with Kia Sharma [employer] 03/20/2020 Lumbago Telemedicine New Pat ient with Kia Sharma [facility] 03/20/2020 Z68.21 - Body mass index [BM I] 21.0-21.9, adult Telemedicine New Patient with Kia Sharma [facility] 03/20/2020 Diagnosis Dental infection- Primary Acute apical [...] section and content) DATE CREATED AUTHOR 12/08/2018 [facility] DATE CREATED AUTHOR AUTHOR'S ORGANIZ ATION 05/31/2021 [facility] DATE CREATED AUTHOR AUTHOR'S ORGANIZ ATION 03/16/2022 [facility] DATE CREATED AUTHOR AUTHOR'S ORGANIZ ATION 04/02/2022 [facility] DATE CREATED AUTHOR AUTHOR'S ORGANIZ ATION 09/12/2023 [facility] EPIC DATE CREATED AUTHOR AUTHOR'S ORGANIZ ATION 09/12/2023 [facility] Reason for Visit (unrecogniz ed section and [...] (cervical intraepithelial neoplasia II) SHREYA II Procedures RI CONIZATION CERVIX,LOOP ELECTRD DILATATION AND CURETTAGE LEEP-ENDOCERVICAL CURETTAGE Anthony Galloway MD [address] [place] [address] Dr [address] [place] [id number] [facility] Reason Comments Breast Pain Right sided, onset y day pm, patient states she had an infection in her right breast a few months ago Specialty Diagnoses / Procedures Referred By Conthi t Referred To Contact Diagnoses Abscess of right breast right breast abcess Procedures RI DRAIN SKIN ABSCESS SIMPLE BREAST INCISION AND DRAINAGE- BREAST Geoff Miller MD [address] [place] [address] [facility] [address] [place] [address] Referral ID Status Reason Start Date Expiration Date Visits Re quested Visits Authorized [id number] 1 1 Reason Comments Nausea Emesis Illness Pt. States she has h ad nausea & vomiting since this am. Reports hot & cold flashes & Occasional dizziness Specialty Diagnoses / Procedures Referred By Gladis vega Referred To Contact Radiology Diagnoses Abscess of female breast Procedures US BREAST LIMITED RIGHT US BREAST COMPLETE RIGHT Geoff Miller MD [address] [place] [address] Referral ID Status Reason Start Date Expiration Date Visits Re quested Visits Authorized [id number] Open 04/18/2022 04/18/2023 1 1 Specialty Diagnoses / Procedures Referred By Gladis vega Referred To Contact Radiology Diagnoses Abscess of female breast Procedures DUSTIN JASMINA DIGITAL DIAGNOSTIC BILATERAL DUSTIN DIGITAL DIAGNOSTIC W OR WO CAD BILATERAL Geoff Miller MD [address] [place] [address] Referral ID Status Reason Start Date Expiration Date Visits Re quested Visits Authorized [id number] Closed 04/18/2022 04/18/2023 1 1 Reason Comments Flank Pain Left sided flank tessy n that started yesterday and came back this AM. Reason Comments Abdominal Pain Reason Comments Contractions Dizziness Vaginal Discharge Ordered Prescriptions (unrec ognized section and content) [...] surgery) 0952 (Given - Provid er: Kassidy Davidson, WALT) ceFAZolin (ANCEF) 2000 mg in dextrose 5 % 100 mL IVPB (COMPLETED) 2,000 mg, Intravenous, PLASTIC INJECTION MOLD MAKER TO O.R., 1 dose, On Mon10/14/20 at [...] 100 mL IVPB (COMPLETED) 2,000 mg, IntraVENous, PLASTIC INJECTION MOLD MAKER TO O.R., 1 dose, On Mon03/04/22 at 1115, Antimicrobial Indications: Surgical Prophylaxis, Administer within 1 hour prior to incision. Recommend to repeat in 3-4 hours after initial dose if still intra-op., Pre-op (day of surgery) 1244 (Given - Provid er: NADYA Fischer CRNA) dimenhyDRINATE (DRAMAMINE) tablet 50 mg (COMPLETED) 50 [...] mL/hr, Administer over 121 Minutes, ONCE, On 04/24/22 at 1130, For 1 dose, For adult [...] mL/hr, Administer over 121 Minutes, ONCE, On 04/24/22 at 1400, For 1 dose, For adult [...] dose, Starting on 04/24/22 at 1203, Until 04/25/22 at 0014, Jefferson Mckee: cabinet override, Jefferson [...] Jefferson Mckee RN)[id number] (Stopped - Provider: Avelina Wyatt, WALT) ketorolac (TORADOL) injection 30 mg (COMPLETED) 30 [...] PHYSICIAN NO FAMILY Primary Care Provider Active Yard Rigger Relationship Specialty Start Date End Date Kia Sharma, BRICK TENDER - METAL FABRICATING SUPERVISOR [address] [place] [id number] PCP - General Nurse Practitioner 04/13/22 Yard Rigger Relationship Specialty Start Date End Date Kia Sharma, BRICK TENDER - METAL FABRICATING SUPERVISOR [address] [place] [address] PCP - General Nurse Practitioner 04/13/22 Yard Rigger Relationship Specialty Start Date End Date Kia Sharma, BRICK TENDER - METAL FABRICATING SUPERVISOR [address] [place] [address] PCP - General Nurse Practitioner 04/13/22 Yard Rigger Relationship Specialty Start Date End Date Kia Sharma APRN - ROLF [address] [place] [id number] PCP - General Nurse Practitioner 04/13/22 Yard Rigger Relationship Specialty Start Date End Date Kia Sharma APRN [facility]OL[facility] [address] [place] [id number] PCP - General Nurse Practitioner 04/13/22 Yard Rigger Relationship Specialty Start Date End Date Kia Sharma APRN - ROLF [address] [place] [phone] PCP - General Nurse Practitioner 04/13/22 FOR [...] BE BASED ON THE PRIMARY CLINICAL RECORDS. [employer] [facility]. provides no warranty or guarantee of the accuracy or completeness of information in this document.
== END 2023-09-15 13:53 | disposition home or self-care (01) ==
LOC: US 13:52
PROVIDERS: Visit Provider Obstetrics & Gynecology
DX: O24.419 Gestational diabetes mellitus in pregnancy, unspecified control (principal); Z3A.29 29 weeks gestation of pregnancy
CPT/HCPCS: 76816

== ENCOUNTER 2023-10-06 18:10 | Observation (INO) | payer OTHER, SELFPAY ==
--- OUTSIDE RECORDS SUMMARY | 2023-10-06 18:14 | XMS_ITS | CCD ---
Author Organization [facility] Care Team Providers Care Unit Supervisor Name Role Phone Bryce De La Garza [...] Unava DO Ed Hoover Emergency Provider MD Govind Feliberto Admit Provider MD Feliberto Faust Attending Provider Unavailable Primary Care Provider UnavailDR YURIY Peraza [...] Booker APRN, CNP Primary Care Provide r JAGDEEP MANRIQUE Admitting Unavailable D'ABREAU, JAGDEEP Attending Unavailable EDITH, KIA Primary Care Unavailable FERNANDA VIPIN Admitting Unavailable FERNANDA, JUSTAN Attending Unavailable EDIHT, KIA Primary Care Unavailable CLINTON TRIVEDI Admitting Unavailable CLINTON TRIVEDI Attending Unavailable EDITH, KIA Primary Care Unavailable EDITH, KIA Primary Care Unavailable EDITH, KIA Primary Care Unavailable MARTIN REAL Attending Unavailable BRENDA STEPHEN Admitting Unavailable BRENDA STEPHEN Attending Unavailable EDITH, KIA Primary Care Unavailable YURIY SABILLON JC Referring Unavailable EDITH, KIA Primary Care Unavailable D'ABREAU, JAGDEEP Admitting Unavailable D'ABREAU, JAGDEEP Attending Unavailable EDITH, KIA Primary Care Unavailable YURIY SABILLON Attending Unavailable DALJIT, YURIY Attending Unavailable DALJIT, YURIY Attending Unavailable GENESIS OJEDA Attending Unavailable DALJIT, YURIY Attending Unavailable GEENSIS OJEDA Attending Unavailable YURIY SABILLON Attending Unavailable Medications Current Medications Medication Drug Class(es) Dates Sig (Normalized) Sig (Original) acetaminophen 500 mg oral tablet (20 sources) Start: 03-04-2022 acetaminophen (TYLENOL) tablet 1,000 mg Start: 10-14-2020 acetaminophen (TYLENOL) tablet 650 mg Start: 05-27-2020 acetaminophen (TYLENOL) tablet 1,000 mg Start: 05-27-2020 [facility] six hours as needed for pain [...] pain 10 tablet 0 10/14/2020 10/17/2020 Active [id number] 200 actuat albuterol 0.09 mg/actuat metered dose [...] MCG/ACT Inhalation Aerosol 07/27/2022 Provider: Mariposa Duncan CNP take 2 puff(s) by in halation twice daily budesonide-formoterol (SYMBICORT) 80-4.5 MCG/ACT AERO Inhale 2 puffs into the lungs 2 times daily 0 Suspended busPIRone hydrochloride 10 mg oral tablet (20 sources) Start: 10-29-2021 take 20 mg by mouth three times daily Buspirone Active 20 MG PO Three times daily October 29, 2021 12:00am Start: 10-09-2020 busPIRone [...] Discontinued 20 MG PO Three times daily 30 August 16, 2019 12:00am October 26, [...] daily Fluoxetine Discontinued 80 MG PO Daily August 16, 2019 12:00am October 26, 2021 [...] Twice Daily at 0900 and 1400 120 30 August 16, 2019 12:00am October 26, [...] IntraVENous, ONCE PRN, 1 dose, Starting on 03/04/22 at 1313, Until 03/05/22 at 1313, Nausea [...] ; childbirth; or the puerperium (3 sources) Hyperglycemic disorder in ; Translations: [Abnormal glucose complicating ] Onset: 09-04-2023 09-04-2023 Episodic Disorders of teeth and jaw [...] third trimester] Onset: 09-02-2023 09-02-2023 Episodic Other complications of (2 sources) Decreased movements, unspecified trimester, not applicable or unspecified; Translations: [Decreased movements, unspecified trimester, not applicable or unspecified] Onset: 09-29-2023 Episodic Other female genital disorders (1 source) [...] Test Name Value Interpretation Reference Range Facility Urinalysis, Routineon 2023 Bilirubin, SemiQt,Ur Negative Normal NEG [facility] Comment on above: Performed By: #### U A #### [facility] [address] [place] [address] [place] [address] Sprigger: Hayden Cartagena MD Blood, Urine Negative Normal NEG [facility] Comment on above: Performed By: #### U A #### [address] [place] [address] Sprigger: Hayden Cartagena MD Clarity (U) Clear Normal CLEAR [facility] Comment on above: Performed By: #### U A #### [facility] [address] [place] [address] [place] [place], [place] [id number] Sprigger: Hayden Cartagena MD Color (U) Yellow Normal YEL [facility] Comment on above: Performed By: #### U A #### [facility] [address] [place] [address] [place] [address] Sprigger: Hayden Cartagena MD Glucose Ql (U) Negative Normal NEG [facility] Comment on above: Performed By: #### U A #### [facility] [address] [place] [address] [place] [address] Sprigger: Hayden Cartagena MD Ketones Ql (U) Negative Normal NEG [facility] Comment on above: Performed By: #### U A #### [address] [place] [address] Sprigger: Hayden Cartagena MD Leukocyte esterase Test strip Ql (U) Negative Normal NEG [facility] Comment on above: Performed By: #### U A #### [facility] [address] [place] [address] Dr[address] [place], [place] [id number] Sprigger: Hayden Cartagena MD Nitrite,Ur Negative Normal [facility] Comment on above: Performed By: #### U A #### [facility] [address] [place] [address] Dr. [place], [place] [id number] Sprigger: Hayden Cartagena MD PH,Ur 6.0 Normal 5.0-9.0 [facility] Comment on above: Performed By: #### U A #### [facility] [address] [place] [address] Dr. [place], [place] [id number] Sprigger: Hayden Cartagena MD Protein Ql (U) Negative Normal NEG [facility] Comment on above: Performed By: #### U A #### [facility] [address] [place] [address] [place]. [place], [place] [id number] Sprigger: Hayden Cartagena MD Spec. Potter,Ur 1.020 Normal 1.010-1.020 [facility] Comment on above: Performed By: #### U A #### [facility] [address] [place] [address] Sprigger: Hayden Cartagena MD Urobilinogen,Ur Normal Normal 0.0-1.0 [facility] Comment on above: Performed By: #### U A #### [facility] [address] [place] [address] Sprigger: Hayden Cartagena MD Urinalysison 09-12-2023 Bilirubin Ql (U) Negative NEGATIVE [facility] Clarity (U) Clear Clear [facility] Color (U) Yellow Yellow [facility] Glucose Test strip (U) [Mass/Vol] Negative NEGATIVE mg/dL [facility] Hemoglobin Auto test strip Ql (U) Negative NEGATIVE [facility] Interpretation and review of laboratory results Abnormal [facility] Ketones (U) [Mass/Vol] Negative NEGAT [place] mg/dL [facility] Leukocyte esterase Test strip Ql (U) Negative NEGATIVE [facility] Nitrite Ql (U) Negative NEGATIVE [facility] pH (U) 6.0 [pH] 5.0 - 9.0 [facility] Protein (U) [Mass/Vol] Negative NEGAT [place] mg/dL [facility] Specific gravity (U) [Rel density] Low 1.010 - 1.020 [facility] Urobilinogen Qn (U) Normal 0.0 - 1. 0 EU/dL [facility] Urinalysis, Routineon 2023 Bilirubin, SemiQt,Ur Negative Normal NEG [facility] Comment on above: Performed By: #### U A #### [facility] [address] [place] [address] Sprigger: Hayden Cartagena MD Blood, Urine Negative Normal NEG [facility] Comment on above: Performed By: #### U A #### [facility] [address] [place], [place] [id number] Sprigger: Hayden Cartagena MD Clarity (U) Clear Normal CLEAR [facility] Comment on above: Performed By: #### U A #### [facility] [address] [place] [address] Dr. [place], [place] [id number] Sprigger: Hayden Cartagena MD Color (U) Yellow Normal YEL [facility] Comment on above: Performed By: #### U A #### [facility] [address] [place] [address] Dr. [place], [place] [phone] Sprigger: Hayden Cartagena MD Glucose Ql (U) Negative Normal NEG [facility] Comment on above: Performed By: #### U A #### [facility] [address] [place] [address] [place] [address] Sprigger: Hayden Cartagena MD Ketones Ql (U) Negative Normal NEG [facility] Comment on above: Performed By: #### U A #### [facility] [address] [place] [address] Dr. [place], [place] [phone] Sprigger: Hayden Cartagena MD Leukocyte esterase Test strip Ql (U) Negative Normal NEG [facility] Comment on above: Performed By: #### U A #### [address] [place], [place] [id number] Sprigger: Hayden Cartagena MD Nitrite,Ur Negative Normal NEG [facility] Comment on above: Performed By: #### U A #### [facility] [address] [place] [address] Dr. [place], [place] [id number] Sprigger: Hayden Cartagena MD PH,Ur 6.0 Normal 5.0-9.0 [facility] Comment on above: Performed By: #### U A #### [facility] [address] [place] [address] Dr. [place], [place] [id number] Sprigger: Hayden Cartagena MD Protein Ql (U) Negative Normal NEG [facility] Comment on above: Performed By: #### U A #### [facility] [address] [place], [place] [id number] Sprigger: Hayden Cartagena MD Spec. Potter,Ur <1.005 Low 1.010-1.020 [facility] Comment on above: Performed By: #### U A #### [facility] [address] [place] Sprigger: Hayden Cartagena MD Urobilinogen,Ur Normal Normal 0.0-1.0 [facility] Comment on above: Performed By: #### U A #### [facility] [address] [place] [address] Dr. [place] Sprigger: Hayden Cartagena MD Glucose, Whole Bloodon 09-03 Glucose [Mass/Vol] 160 mg/dL High 74-100 [facility] Urinalysis, Routineon 2023 Bilirubin, SemiQt,Ur Negative Normal NEG [facility] Comment on above: Performed By: #### U SHANNONO, UA #### [address] [place] Sprigger: Hayden Cartagena MD Blood, Urine Negative Normal NEG [facility] Comment on above: Performed By: #### U MICAO, UA #### [facility] [address] [place] Sprigger: Hayden Cartagena MD Clarity (U) Clear Normal CLEAR [facility] Comment on above: Performed By: #### U MICAO, UA #### [facility] [address] [place] [address] Sprigger: Hayden Cartagena MD Color (U) Yellow Normal YEL [facility] Comment on above: Performed By: #### U MICAO, UA #### [facility] [address] [place] [address] Dr. [place], [place] [id number] Sprigger: Hayden Cartagena MD Glucose Ql (U) 1+ mg/dL Abnormal NEG [facility] Comment on above: Performed By: #### U MICAO, UA #### [facility] [address] [place], [place] [id number] Sprigger: Hayden Cartagena MD Ketones Ql (U) Negative Normal NEG [facility] Comment on above: Performed By: #### U MICAO, UA #### [facility] [address] [place], [place] [id number] Sprigger: Hayden Cartagena MD Leukocyte esterase Test strip Ql (U) Negative Normal NEG [facility] Comment on above: Performed By: #### U MICAO, UA #### [facility] [address] [place] [address] Dr. [place], [place] [id number] Sprigger: Hayden Cartagena MD Nitrite,Ur Negative Normal [facility] Comment on above: Performed By: #### U MICAO, UA #### [facility] [address] [place] [address] Dr. [place], [place] [id number] Sprigger: Hayden Cartagena MD PH,Ur 6.0 Normal 5.0-9.0 [facility] Comment on above: Performed By: #### U MICAO, UA #### [facility] [address] [place] [address] Dr. [place], [place] [phone] Sprigger: Hayden Cartagena MD Protein Ql (U) Negative Normal NEG [facility] Comment on above: Performed By: #### U MICAO, UA #### [facility] [address] [place] [address] Dr. [place], [place] [phone] Sprigger: Hayden Cartagena MD Spec. Potter,Ur <1.005 Low 1.010-1.020 [facility] Comment on above: Performed By: #### U MICAO, UA #### [facility] [address] [place] [address] Dr. [place] [id number] Sprigger: Hayden Cartagena MD Urobilinogen,Ur Normal Normal 0.0-1.0 [facility] Comment on above: Performed By: #### U MICAO, UA #### [facility] [address] [place], [place] [id number] Sprigger: Hayden Cartagena MD Urinalysis,Microon Bacteria TRACE Abnormal NONE [facility] Comment on above: Performed By: #### U MICAO, UA #### [facility] [address] [place], [place] [phone] Sprigger: Hayden Cartagena MD Epithelial cells LM Ql (Urine sed) 5 TO 10 Normal 0-25 [facility] Comment on above: Performed By: #### U MICAO, UA #### [facility] [address] [place], [place] [phone] Sprigger: Hayden Cartagena MD Urine RBC's None Normal 0-2 [facility] Comment on above: Performed By: #### U MICAO, UA #### [facility] [address] [place] [address] Dr. [place], [place] [phone] Sprigger: Hayden Cartagena MD Urine WBC's None Normal 0-5 [facility] Comment on above: Performed By: #### U MICAO, UA #### [facility] [address] [place], [place] [id number] Sprigger: Hayden Cartagena MD Urinalysis, Routineon 2023 Bilirubin, SemiQt,Ur Negative Normal NEG [facility] Comment on above: Performed By: #### U A #### [facility] [address] [place] [address] Sprigger: Hayden Cartagena MD Blood, Urine Negative Normal NEG [facility] Comment on above: Performed By: #### U A #### [facility] [address] [place], [place] [id number] Sprigger: Hayden Cartagena MD Clarity (U) Clear Normal CLEAR [facility] Comment on above: Performed By: #### U A #### [facility] [address] [place] [address] Dr. [place], [place] [id number] Sprigger: Hayden Cartagena MD Color (U) Yellow Normal YEL [facility] Comment on above: Performed By: #### U A #### [facility] [address] [place] [address] Dr. [place], [place] [phone] Sprigger: Hayden Cartagena MD Glucose Ql (U) Negative Normal NEG [facility] Comment on above: Performed By: #### U A #### [facility] [address] [place] [address] Dr. [place], [place] [id number] Sprigger: Hayden Cartagena MD Ketones Ql (U) Negative Normal NEG [facility] Comment on above: Performed By: #### U A #### [facility] [address] [place] [address] Dr. [place], [place] [id number] Sprigger: Hayden Cartagena MD Leukocyte esterase Test strip Ql (U) Negative Normal NEG [facility] Comment on above: Performed By: #### U A #### [facility] [address] [place] [address] Dr. [place], [place] [phone] Sprigger: Hayden Cartagena MD Nitrite,Ur Negative Normal NEG [facility] Comment on above: Performed By: #### U A #### [facility] [address] [place] [address] Dr. [place], [place] [id number] Sprigger: Hayden Cartagena MD PH,Ur 6.0 Normal 5.0-9.0 [facility] Comment on above: Performed By: #### U A #### [facility] [address] [place] [address] Dr. [place], [place] [phone] Sprigger: Hayden Cartagena MD Protein Ql (U) Negative Normal NEG [facility] Comment on above: Performed By: #### U A #### [facility] [address] [place] [address] Sprigger: Hayden Cartagena MD Spec. Potter,Ur <1.005 Low 1.010-1.020 [facility] Comment on above: Performed By: #### U A #### [facility] [address] [place] [address] Sprigger: Hayden Cartagena MD Urobilinogen,Ur Normal Normal 0.0-1.0 [facility] Comment on above: Performed By: #### U A #### [facility] [address] [place] [address] Sprigger: Hayden Cartagena MD Microscopic Urinalysison Bacteria LM Ql (Urine sed) 1+ Abnormal None [facility] Epithelial cells LM.HPF (Urine sed) [#/Area] 0 TO 2 [facility] Interpretation and review of laboratory results Abnormal [facility] RBC LM.HPF (Urine sed) [#/Area] None [facility] WBC LM.HPF (Urine sed) [#/Area] None [facility] Urinalysison 08-24-2023 Bilirubin Ql (U) Negative NEGATIVE [facility] Clarity (U) Clear Clear [facility] Color (U) Yellow Yellow [facility] Glucose Test strip (U) [Mass/Vol] 1+ Abnormal NEGATIVE mg/dL [facility] Hemoglobin Auto test strip Ql (U) Negative NEGATIVE [facility] Interpretation and review of laboratory results Abnormal [facility] Ketones (U) [Mass/Vol] Negative NEGAT [place] mg/dL [facility] Leukocyte esterase Test strip Ql (U) Negative NEGATIVE [facility] Nitrite Ql (U) Negative NEGATIVE [facility] pH (U) 6.0 [pH] 5.0 - 9.0 [facility] Protein (U) [Mass/Vol] Negative NEGAT [place] mg/dL [facility] Specific gravity (U) [Rel density] Low 1.010 - 1.020 [facility] Urobilinogen Qn (U) Normal 0.0 - 1. 0 EU/dL [facility] Urinalysis, Routineon 2023 Bilirubin, SemiQt,Ur Negative Normal NEG [facility] Comment on above: Performed By: #### U RC #### [address] [address] Sprigger: Claude Gonzalez MD [facility] [address] [place] [address] [place] [address] Sprigger: Hayden Cartagena MD Blood, Urine Negative Normal [facility] Comment on above: Performed By: #### U RC #### [address] [address] Sprigger: Claude Gonzalez MD [address] [place] [id number] Sprigger: Hayden Cartagena MD Clarity (U) Clear Normal CLEAR [facility] Comment on above: Performed By: #### U RC #### [address] [address] Sprigger: Claude Gonzalez MD [facility] [address] [place] [address] [place] [address] Sprigger: Hayden Cartagena MD Color (U) Yellow Normal YEL [facility] Comment on above: Performed By: #### U RC #### [address] [address] Sprigger: Claude Gonzalez MD [facility] [address] [place] [address] [place] [address] Sprigger: Hayden Cartagena MD Glucose Ql (U) 1+ mg/dL Abnormal NEG [facility] Comment on above: Performed By: #### U RC #### [facility] [address] [place] [address] Sprigger: Claude Gonzalez MD [address] [place], [place] [phone] Sprigger: Hayden Cartagena MD Ketones Ql (U) Negative Normal NEG [facility] Comment on above: Performed By: #### U RC #### [address] [address] Sprigger: Claude Gonzalez MD [facility] [address] [place] [address] Dr. [place] [phone] Sprigger: Hayden Cartagena MD Leukocyte esterase Test strip Ql (U) Negative Normal NEG [facility] Comment on above: Performed By: #### U RC #### [address] [address] Sprigger: Claude Gonzalez MD [facility] [address] [place] [address] Dr. [place] [phone] Sprigger: Hayden Cartagena MD Nitrite,Ur Negative Normal [facility] Comment on above: Performed By: #### U RC #### [address] [address] Sprigger: Claude Gonzalez MD [facility] [address] [place] [address] [place] [address] Sprigger: Hayden Cartagena MD PH,Ur 6.0 Normal 5.0-9.0 [facility] Comment on above: Performed By: #### U RC #### [facility] [address] [place] [address] Sprigger: Claude Gonzalez MD [facility] [address] [place] [address] Dr. [place], [place] [id number] Sprigger: Hayden Cartagena MD Protein Ql (U) Negative Normal NEG [facility] Comment on above: Performed By: #### U RC #### [place] [address] [place] [address] Sprigger: Claude Gonzalez MD [address] [place] [id number] Sprigger: Hayden Cartagena MD Spec. Potter,Ur <1.005 Low 1.010-1.020 [facility] Comment on above: Performed By: #### U RC #### [address] [address] Sprigger: Claude Gonzalez MD [address] [place] [address] Sprigger: Hayden Cartagena MD Urobilinogen,Ur Normal Normal 0.0-1.0 [facility] Comment on above: Performed By: #### U RC #### [address] [address] Sprigger: Claude Gonzalez MD [address] [place] [phone] Sprigger: Hayden Cartagena MD Urinalysis,Microon 4 Bacteria 1+ Abnormal NONE [facility] Comment on above: Performed By: #### U RC #### [address] [address] Sprigger: Claude Gonzalez MD [address] [place] [phone] Sprigger: Hayden Cartagena MD Epithelial cells LM Ql (Urine sed) 0 TO 2 Normal 0-25 [facility] Comment on above: Performed By: #### U RC #### [address] [address] Sprigger: Claude Gonzalez MD [facility] [address] [place] [address] [place] [address] Sprigger: Hayden Cartagena MD Urine RBC's None Normal 0-2 [facility] Comment on above: Performed By: #### U RC #### [facility] [address] [place] [address] Sprigger: Claude Gonzalez MD [facility] [address] [place] [address] [place] [address] Sprigger: Hayden Cartagena MD Urine WBC's None Normal 0-5 [facility] Comment on above: Performed By: #### U RC #### [facility] [address] [place] [address] Sprigger: Claude Gonzalez MD [facility] [address] [place] [address] [place] [address] Sprigger: Hayden Cartagena MD Cult,Urineon 07-01-2023 Cult,Urine Specimen Description .CLEAN CATCH URINE Culture NO SIGNIFICANT GROWTH Report Status FINAL 07/01/2023 Normal [facility] Comment on above: Performed By: #### U RC #### [facility] [address] [place] [address] Sprigger: Claude Gonzalez MD [facility] [address] [place] [address] [place] [address] Sprigger: Hayden Cartagena MD Urinalysis w/ Microon 2023 Bilirubin, SemiQt,Ur Negative Normal NEG [facility] Comment on above: Performed By: #### U AMIC #### [facility] [address] [place] [address] [place] [address] Sprigger: Hayden Cartagena MD Blood, Urine Negative Normal NEG [facility] Comment on above: Performed By: #### U AMIC #### [address] [place] [place] [address] Sprigger: Hayden Cartagena MD Clarity (U) Clear Normal CLEAR [facility] Comment on above: Performed By: #### U AMIC #### [facility] [address] [place] [address] Dr. [place], [place] [phone] Sprigger: Hayden Cartagena MD Color (U) Yellow Normal YEL [facility] Comment on above: Performed By: #### U AMIC #### [facility] [address] [place] [address] Sprigger: Hayden Cartagena MD Epithelial cells LM Ql (Urine sed) 2 TO 5 Normal 0-25 [facility] Comment on above: Performed By: #### U AMIC #### [facility] [address] [place], [place] [id number] Sprigger: Hayden Cartagena MD Glucose Ql (U) Negative Normal NEG [facility] Comment on above: Performed By: #### U AMIC #### [facility] [address] [place] [address] Dr[address] [place], [place] [phone] Sprigger: Hayden Cartagena MD Ketones Ql (U) Negative Normal NEG [facility] Comment on above: Performed By: #### U AMIC #### [facility] [address] [place], [place] [phone] Sprigger: Hayden Cartagena MD Leukocyte esterase Test strip Ql (U) Negative Normal NEG [facility] Comment on above: Performed By: #### U AMIC #### [facility] [address] [place] [address] [place] [place], [place] [phone] Sprigger: Hayden Cartagena MD Nitrite,Ur Negative Normal NEG [facility] Comment on above: Performed By: #### U AMIC #### [facility] [address] [place], [place] [phone] Sprigger: Hayden Cartagena MD PH,Ur 6.0 Normal 5.0-9.0 [facility] Comment on above: Performed By: #### U AMIC #### [facility] [address] [place], [place] [phone] Sprigger: Hayden Cartagena MD Protein Ql (U) Negative Normal NEG [facility] Comment on above: Performed By: #### U AMIC #### [facility] [address] [place], [place] [phone] Sprigger: Hayden Cartagena MD Spec. Potter,Ur 1.010 Normal 1.010-1.020 [facility] Comment on above: Performed By: #### U AMIC #### [facility] [address] [place], [place] [phone] Sprigger: Hayden Cartagena MD Urine RBC's None Normal 0-2 [facility] Comment on above: Performed By: #### U AMIC #### [facility] [address] [place], [place] [phone] Sprigger: Hayden Cartagena MD Urine WBC's None Normal 0-5 [facility] Comment on above: Performed By: #### U AMIC #### [facility] [address] [place], [place] [phone] Sprigger: Hayden Cartagena MD Urobilinogen,Ur Normal Normal 0.0-1.0 [facility] Comment on above: Performed By: #### U AMIC #### [facility] [address] [place] [address] Dr. [place], [place] [phone] Sprigger: Hayden Cartagena MD Cult,Urineon 05-03-2023 Cult,Urine Specimen [...] Tobramycin <=1 SUSCEPTIBLE Trimethoprim/Sulfa <=20 SUSCEPTIBLE Susceptible [facility] Comment on above: Performed By: #### U RC #### [facility] [address] [place] [address] Sprigger: Claude Gonzalez MD [facility] [address] [place] [address] [place] [address] Sprigger: Hayden Cartagena MD HIV Ag/Abon 05-02-2023 HIV Ag/Ab Non-Reactive Normal [facility] Comment on above: Result Comment: No l aboratory evidence of HIV infection. If acute HIV infection is suspected, consider testing for HIV-1 RNA. Performed By: #### U RC #### [place] [place] [address] Sprigger: Claude Gonzalez MD [facility] [address] [place] [address] [place] [address] Sprigger: Hayden Cartagena MD T.pallidum Ab Screenon 05-01 T.pallidum Ab Screen Non-Reactive Normal NR [facility] Comment on above: Result Comment: T. pallidum antibodies are not detected. There is no serological evidence of infection with T. pallidum (early primary syphilis cannot be excluded). Retest in 2-4 weeks if syphilis is clinically suspect. Performed By: #### U RC #### [facility] [address] [place] [address] Sprigger: Claude Gonzalez MD [facility] [address] [place] [address] [address]. [place] [phone] Sprigger: Hayden Cartagena MD CBC with Auto Differentialon 05-01-2023 Basophils (Bld) [#/Vol] 0.03 10*3/uL [facility] Basophils/100 WBC (Bld) 0 % 0 - 2 % [facility] Eosinophils (Bld) [#/Vol] [facility] Eosinophils/100 WBC (Bld) 0 % Low 1 - 4 % [facility] Erythrocyte distribution width (RBC) [Ratio] 12.2 % 11.8 - 14.4 % [facility] Hematocrit (Bld) [Volume fraction] 36.2 % Low 36.3 - 47.1 % [facility] Hemoglobin (Bld) [Mass/Vol] 12.1 g/dL 11.9 - 15.1 g/dL [facility] Immature granulocytes (Bld) [#/Vol] [facility] Immature granulocytes/100 WBC (Bld) 0 % 0 [facility] Interpretation and review of laboratory results Abnormal [facility] Lymphocytes/100 WBC (Bld) 19 % Low 24 - 43 % [facility] Lymphocytes/100 WBC (Bld) 1.62 % [facility] MCH (RBC) [Entitic mass] 32.1 pg 25.2 - 33.5 pg [facility] MCHC (RBC) [Mass/Vol] 33.4 g/dL 28.4 - 34.8 g/dL [facility] MCV (RBC) [Entitic vol] 96.0 fL 82.6 - 102.9 fL [facility] Monocytes/100 WBC (Bld) 6 % 3 - 12 % [facility] Monocytes/100 WBC (Bld) 0.51 % [facility] Neutrophils/100 WBC (Bld) 75 % High 36 - 65 % [facility] Nucleated RBC/100 WBC (Bld) [Ratio] 0.0 % 0.0 per 100 WBC [facility] Platelet mean volume (Bld) [Entitic vol] 10.3 fL 8.1 - 13.5 fL [facility] Platelets (Bld) [#/Vol] 201 10*3/uL [facility] RBC (Bld) [#/Vol] 3.77 10*6/uL Low 3.95 - 5.1 1 m/uL [facility] Segmented neutrophils/100 WBC (Bld) 6.24 % [facility] WBC other (Bld) [#/Vol] 8.4 B ON [facility] CBC with Diffon 05-01-2023 Abs. Basophil 0.03 k/uL Normal 0.00-0.20 [facility] Comment on above: Performed By: #### C DP #### [address] [place] [phone] Sprigger: Hayden Cartagena MD #### LISA, HIVCMB, AHCV, TREP, GLYHGB, HBS #### [address] [address] Sprigger: Claude Gonzalez MD Abs. Eosinophil <0.03 Normal 0.00-0.44 [facility] Comment on above: Performed By: #### C DP #### [address] [place] [phone] Sprigger: Hayden Cartagena MD #### LISA, HIVCMB, AHCV, TREP, GLYHGB, HBS #### [address] [phone] Sprigger: Claude Gonzalez MD Abs.Imm.Granulocyte <0.03 Normal 0.00-0.30 [facility] Comment on above: Performed By: #### C DP #### [address] [place] [phone] Sprigger: Hayden Cartagena MD #### LISA, HIVCMB, AHCV, TREP, GLYHGB, HBS #### [address] [phone] Sprigger: Claude Gonzalez MD Abs.Neutrophil (Seg) 6.24 k/uL Normal 1.50-8.10 [facility] Comment on above: Performed By: #### C DP #### [address] [place] [phone] Sprigger: Hayden Cartagena MD #### LISA, HIVCMB, AHCV, TREP, GLYHGB, HBS #### [address] [phone] Sprigger: Claude Gonzalez MD Basophils/100 WBC (Bld) 0 % Normal 0-2 [facility] Comment on above: Performed By: #### C DP #### [address] [place] [phone] Sprigger: Hayden Cartagena MD #### LISA, HIVCMB, AHCV, TREP, GLYHGB, HBS #### [address] [phone] Sprigger: Claude Gonzalez MD Eosinophils/100 WBC (Bld) 0 % Low 1-4 [facility] Comment on above: Performed By: #### C DP #### [address] [place] [phone] Sprigger: Hayden Cartagena MD #### LISA, HIVCMB, AHCV, TREP, GLYHGB, HBS #### [place] [phone] Sprigger: Claude Gonzalez MD Erythrocyte distribution width (RBC) [Ratio] 12.2 % Normal 11.8-14.4 [facility] Comment on above: Performed By: #### C DP #### [address] [place] [phone] Sprigger: Hayden Cartagena MD #### LISA, HIVCMB, AHCV, TREP, GLYHGB, HBS #### [place] [phone] Sprigger: Claude Gonzalez MD Hematocrit (Bld) [Volume fraction] 36.2 % Low 36.3-47.1 [facility] Comment on above: Performed By: #### C DP #### [address] [place] [phone] Sprigger: Hayden Cartagena MD #### LISA, HIVCMB, AHCV, TREP, GLYHGB, HBS #### [address] [address] Sprigger: Claude Gonzalez MD Hemoglobin (Bld) [Mass/Vol] 12.1 g/dL Normal 11.9-15.1 [facility] Comment on above: Performed By: #### C DP #### [address] [place] [phone] Sprigger: Hayden Cartagena MD #### LISA, HIVCMB, AHCV, TREP, GLYHGB, HBS #### [place] [address] Sprigger: Claude Gonzalez MD Immature granulocytes/100 WBC (Bld) 0 % Normal 0 [facility] Comment on above: Performed By: #### C DP #### [address] [place] [phone] Sprigger: Hayden Cartagena MD #### LISA, HIVCMB, AHCV, TREP, GLYHGB, HBS #### [place] [address] Sprigger: Claude Gonzalez MD Lymphocytes (Bld) [#/Vol] 1.62 10*3/uL Normal 1.10-3.70 [facility] Comment on above: Performed By: #### C DP #### [address] [place] [phone] Sprigger: Hayden Cartagena MD #### LISA, HIVCMB, AHCV, TREP, GLYHGB, HBS #### [place] [address] Sprigger: Claude Gonzalez MD Lymphocytes/100 WBC (Bld) 19 % Low 24-43 [facility] Comment on above: Performed By: #### C DP #### [address] [place] [phone] Sprigger: Hayden Cartagena MD #### LISA, HIVCMB, AHCV, TREP, GLYHGB, HBS #### [address] [phone] Sprigger: Claude Gonzalez MD MCH (RBC) [Entitic mass] 32.1 pg Normal 25.2-33.5 [facility] Comment on above: Performed By: #### C DP #### [address] [place] [phone] Sprigger: Hayden Cartagena MD #### LISA, HIVCMB, AHCV, TREP, GLYHGB, HBS #### [place] [phone] Sprigger: Claude Gonzalez MD MCHC (RBC) [Mass/Vol] 33.4 g/dL Normal 28.4-34.8 [facility] Comment on above: Performed By: #### C DP #### [address] [place] [phone] Sprigger: Hayden Cartagena MD #### LISA, HIVCMB, AHCV, TREP, GLYHGB, HBS #### [address] [phone] Sprigger: Claude Gonzalez MD MCV (RBC) [Entitic vol] 96.0 fL Normal 82.6-102.9 [facility] Comment on above: Performed By: #### C DP #### [address] [place] [address] Sprigger: Hayden Cartagena MD #### LISA, HIVCMB, AHCV, TREP, GLYHGB, HBS #### [address] [place], [place] [phone] Sprigger: Claude Gonzalez MD Monocytes (Bld) [#/Vol] 0.51 10*3/uL Normal 0.10-1.20 [facility] Comment on above: Performed By: #### C DP #### [facility] [address] [place] [address] Dr. [place] [phone] Sprigger: Hayden Cartagena MD #### LISA, HIVCMB, AHCV, TREP, GLYHGB, HBS #### [address] [phone] Sprigger: Claude Gonzalez MD Monocytes/100 WBC (Bld) 6 % Normal 3-12 [facility] Comment on above: Performed By: #### C DP #### [address] [place] [phone] Sprigger: Hayden Cartagena MD #### LISA, HIVCMB, AHCV, TREP, GLYHGB, HBS #### [place] [phone] Sprigger: Claude Gonzalez MD Neutrophil (Seg) 75 % High 36-65 [facility] Comment on above: Performed By: #### C DP #### [address] [place] [phone] Sprigger: Hayden Cartagena MD #### LISA, HIVCMB, AHCV, TREP, GLYHGB, HBS #### [address] [address] Sprigger: Claude Gonzalez MD NRBC Automated 0.0 per 100 WBC Normal 0.0 [facility] Comment on above: Performed By: #### C DP #### [address] [place] [phone] Sprigger: Hayden Cartagena MD #### LISA, HIVCMB, AHCV, TREP, GLYHGB, HBS #### [address] [phone] Sprigger: Claude Gonzalez MD Platelet mean volume (Bld) [Entitic vol] 10.3 fL Normal 8.1-13.5 [facility] Comment on above: Performed By: #### C DP #### [facility] [address] [place] [address] Dr. [place] [phone] Sprigger: Hayden Cartagena MD #### LISA, HIVCMB, AHCV, TREP, GLYHGB, HBS #### [address] [phone] Sprigger: Claude Gonzalez MD Platelets (Bld) [#/Vol] 201 10*3/uL Normal 138-453 [facility] Comment on above: Performed By: #### C DP #### [address] [place] [phone] Sprigger: Hayden Cartagena MD #### LISA, HIVCMB, AHCV, TREP, GLYHGB, HBS #### [address] [phone] Sprigger: Claude Gonzalez MD RBC (Bld) [#/Vol] 3.77 10*6/uL Low 3.95-5.11 [facility] Comment on above: Performed By: #### C DP #### [address] [place] [phone] Sprigger: Hayden Cartagena MD #### LISA, HIVCMB, AHCV, TREP, GLYHGB, HBS #### [address] [address] Sprigger: Claude Gonzalez MD WBC (Bld) [#/Vol] 8.4 10*3/uL Normal 3.5-11.3 [facility] Comment on above: Performed By: #### C DP #### [facility] [address] [place] [address] Dr. [place] [phone] Sprigger: Hayden Cartagena MD #### LISA, HIVCMB, AHCV, TREP, GLYHGB, HBS #### [address] [place] [address] Sprigger: Claude Gonzalez MD Hemoglobin A1Con 05-01-2023 Average glucose Estimated from glycated hemoglobin (Bld) [Mass/Vol] 85 mg/dL [facility] Comment on above: The ADA and AACC rec ommend providing the estimated average glucose result to permit better patient understanding of their HBA1c result. HbA1c (Bld) [Mass fraction] 4.6 % 4.0 - 6.0 % [facility] Glucose [Mass/Vol] 85 mg/dL Normal [facility] Comment on above: Result Comment: The ADA and AACC recommend providing the estimated average glucose result to permit better patient understanding of their HBA1c result. Performed By: #### U RC #### [address] [address] Sprigger: Claude Gonzalez MD [facility] [address] [place] [address] [place] [phone] Sprigger: Hayedn Cartagena MD HbA1c (Bld) [Mass fraction] 4.6 % Normal 4.0-6.0 [facility] Comment on above: Performed By: #### U RC #### [address] [address] Sprigger: Claude Gonzalez MD [facility] [address] [place] [address] [place] [phone] Sprigger: Hayden Cartagena MD Hep B Surf Agon 05-01-2023 Hep B Surf Ag Non-Reactive Normal NR [facility] Comment on above: Performed By: #### U RC #### [address] [address] Sprigger: Claude Gonzalez MD [facility] [address] [place] [address] Dr. [place] [phone] Sprigger: Hayden Cartagena MD Hep C Abon 05-01-2023 Hep C Ab Non-Reactive Normal NR [facility] Comment on above: Result Comment: The [...] PCR. Performed By: #### C DP #### [facility] [address] [place] [address] [place] [address] Sprigger: Hayden Cartagena MD #### LISA, HIVCMB, AHCV, TREP, GLYHGB, HBS #### [facility] [address] [place] [address] Sprigger: Claude Gonzalez MD Hepatitis B Surface Antigeno n 05-01-2023 HBV surface Ag IA Ql Non-Reactive NONREACTIVE B [facility] Hepatitis C Antibodyon 04-30 HCV Ab IA Ql Non-Reactive NONREACTIVE [facility] Comment on above: The hepatitis C procedure [...] RNA by PCR. No Panel Informationon 04-30 [facility] Rubella Ab, IgGon 05-01-2023 Rubella Ab, IgG >500.0 Normal [facility] Comment on above: Result Comment: REFERENCE RANGE: <5.0 NON-REACTIVE (non-immune) 5.0 TO 9.9 EQUIVOCAL >=10.0 REACTIVE (immune) Performed By: #### U RC #### [facility] [address] [place] [address] Sprigger: Claude Gonzalez MD [facility] [address] [place] [address] [place] [address] Sprigger: MD Marcie Reddy antibody, IgGon Rubella virus IgG IA Ql IU/mL [facility] Comment on above: REFERENCE RANGE: <5.0 NON-REACTIVE (non-immune) 5.0 TO 9.9 EQUIVOCAL >=10.0 REACTIVE (immune) [facility] TYPE AND SCREENon 05-01-2023 ABO and Rh group Nom (Bld) Blood group O Rh(D) negative [facility] Blood Bank Sample Expiration 05/04/2023,2359 [facility] Blood group antibodies identified Nom Negative [facility] Type + Screenon 05-01-2023 Type + Screen Sample Expiration 05/04/2023,2359 ABO/Rh(D) O NEGATIVE Antibody Screen NEGATIVE Normal [facility] Comment on above: Performed By: #### T YS #### [facility] [address] [place] [address] Sprigger: Hayden Cartagena MD CBC with Auto Differentialon 08-03-2022 Basophils (Bld) [#/Vol] 0.04 10*3/uL [facility] Basophils/100 WBC (Bld) 0 % 0 - 2 % [facility] Eosinophils (Bld) [#/Vol] [facility] Eosinophils/100 WBC (Bld) 0 % Low 1 - 4 % [facility] Erythrocyte distribution width (RBC) [Ratio] 12.2 % 11.8 - 14.4 % [facility] Hematocrit (Bld) [Volume fraction] 39.4 % 36.3 - 47.1 % [facility] Hemoglobin (Bld) [Mass/Vol] 13.2 g/dL 11.9 - 15.1 g/dL [facility] Immature granulocytes (Bld) [#/Vol] [facility] Immature granulocytes/100 WBC (Bld) 0 % 0 [facility] Interpretation and review of laboratory results Abnormal [facility] Lymphocytes/100 WBC (Bld) 17 % Low 24 - 43 % [facility] Lymphocytes/100 WBC (Bld) 1.86 % [facility] MCH (RBC) [Entitic mass] 32.1 pg 25.2 - 33.5 pg [facility] MCHC (RBC) [Mass/Vol] 33.5 g/dL 28.4 - 34.8 g/dL [facility] MCV (RBC) [Entitic vol] 95.9 fL 82.6 - 102.9 fL [facility] Monocytes/100 WBC (Bld) 4 % 3 - 12 % B ON [facility] Monocytes/100 WBC (Bld) 0.42 % B ON [facility] Neutrophils/100 WBC (Bld) 79 % High 36 - 65 % [facility] NRBC Automated 0.0 0.0 per 100 WBC [facility] Platelet mean volume (Bld) [Entitic vol] 10.5 fL 8.1 - 13.5 fL [facility] Platelets (Bld) [#/Vol] 213 10*3/uL [facility] RBC (Bld) [#/Vol] 4.11 10*6/uL 3.95 - 5.1 1 m/uL [facility] Segmented neutrophils/100 WBC (Bld) 8.49 % High [facility] WBC other (Bld) [#/Vol] 10.8 B ON [facility] CMPon 08-03-2022 Albumin [Mass/Vol] 4.6 g/dL 3.5 - 5.2 g/dL [facility] Albumin/Globulin [Mass ratio] 1.5 {ratio} 1.0 - 2.5 [facility] ALP [Catalytic activity/Vol] 79 U/L 35 - 104 U/L [facility] ALT [Catalytic activity/Vol] 9 U/L 5 - 33 U/L [facility] Anion gap [Moles/Vol] 11 mmol/L 9 - 17 mmol/L [facility] AST [Catalytic activity/Vol] 13 U/L NINF - 32 U/L [facility] Bilirubin [Mass/Vol] 1.1 mg/dL 0.3 - 1 .2 mg/dL [facility] Calcium [Mass/Vol] 10.0 mg/dL 8.6 - 10. 4 mg/dL [facility] Chloride [Moles/Vol] 104 mmol/L 98 - 10 7 mmol/L [facility] CO2 [Moles/Vol] 26 mmol/L 20 - 31 mmol/L [facility] Creatinine [Mass/Vol] 0.68 mg/dL 0.50 - 0.90 mg/dL [facility] GFR/1.73 sq M.predicted MDRD (S/P/Bld) [Vol rate/Area] - PINF [facility] Comment on above: These results are not [...] [Mass/Vol] 90 mg/dL 70 - 99 mg/dL [facility] Interpretation and review of laboratory results Abnormal [facility] Potassium [Moles/Vol] 3.4 mmol/L Low 3.7 - 5.3 mmol/L [facility] Protein [Mass/Vol] 7.7 g/dL 6.4 - 8.3 g/dL [facility] Sodium [Moles/Vol] 141 mmol/L 135 - 144 mmol/L [facility] Urea nitrogen [Mass/Vol] 6 mg/dL 6 - 20 mg/dL [facility] Urea nitrogen/Creatinine [Mass ratio] 9 mg/mg 9 - [address] [facility] [address] ABDOMEN PELVIS WO CONTRAS T [...] superficial soft tissues show no acute process. [facility] Cody Posey MD - 08/03/2022 EXAMINATION: CT [...] urinary tract calculi. 3. No bowel obstruction. [employer] Work Phone: Radiology Study observation (narrative) [employer] Work Phone: CT ABDOMEN PELVIS WO CONTRAS T Additional Contrast? NoneOrdered By: Cody Gregg on 08-03-2022 [employer] Work Phone: Microscopic Urinalysison Bacteria LM Ql (Urine sed) 4+ Abnormal None [employer] Epithelial cells LM.HPF (Urine sed) [#/Area] 10 TO 20 [employer] [facility] Interpretation and review of laboratory results Abnormal [facility] RBC LM.HPF (Urine sed) [#/Area] 10 TO 20 [employer] [facility] [place] WBC LM.HPF (Urine sed) [#/Area] 20 TO 50 [employer] [facility] Urinalysis with Reflex to Cu ltureon 08-03-2022 Bilirubin Ql (U) Negative NEGATIVE [employer] Clarity (U) Cloudy Abnormal Clear [facility] Color (U) Yellow Yellow [employer] [facility] [place] Glucose Test strip (U) [Mass/Vol] Negative NEGATIVE [employer] Hemoglobin Auto test strip Ql (U) 3+ Abnormal NEGATIVE [employer] [facility] [place] Interpretation and review of laboratory results Abnormal [facility] Ketones (U) [Mass/Vol] Negative NEGATIVE [employer] Leukocyte esterase Test strip Ql (U) SMALL Abnormal NEGATIVE [facility] Nitrite Ql (U) Positive Abnormal NEGATIVE [employer] pH (U) 6.0 [pH] 5.0 - 9.0 [employer] Protein (U) [Mass/Vol] 2+ Abnormal NEGATIVE [employer] Specific gravity (U) [Rel density] 1.025 High 1.010 - 1.020 [facility] Urobilinogen Qn (U) Normal Normal [facility] hCG, quantitative, on 08-03-2022 hCG Quant NINF [facility] Comment on above: Non-preg premeno <=5 Postmeno <=8 Male <=3 If HCG results do not concur with clinical observations, additional testing to confirm results is recommended. [facility] JASMINA DIGITAL DIAGNOSTIC BILATERALon 06-03-2022 Radiology Study observation (narrative) [facility] Work Phone: No Panel Informationon 06-03 1. Negative bilateral mammogram. 2. No evidence for a discrete abscess or cellulitis in the periareolar right breast, for which clinical follow-up is recommended. BI-RADS 2 BIRADS: BIRADS - CATEGORY 2 Benign Findings. OVERALL ASSESSMENT - BENIGN A letter of notification will be sent to the patient regarding the results. [employer] recommends annual mammograms for women 40 years and older. [facility] RIS CONSOLIDATED EXAMINATION: DIAGNOSTIC DIGITAL BILATERAL [...] Panel InformationOrdered By: Matt Sharma on 06-03-2022 [employer] [facility] [email or web address] Work Phone: US BREAST LIMITED RIGHTon Radiology Study observation (narrative) [facility] HOLDERO [facility] [email or web address] Work Phone: CBC with Auto Differentialon 04-24-2022 [employer] # [facility] HEALTH Absolute Immature Granulocyte 0.05 [facility] Absolute Lymph # 0.56 Low [facility] Absolute [place] # 0.78 [facility] Basophils (Bld) [#/Vol] 0.04 10*3/uL [facility] Basophils/100 WBC (Bld) 0 % 0 - 2 % B ON [facility] Eosinophils/100 WBC (Bld) 0 % Low 1 - 4 % [facility] Hematocrit (Bld) [Volume fraction] 43.7 % 36.3 - 47.1 % [facility] Hemoglobin (Bld) [Mass/Vol] 15.6 g/dL High 11.9 - 15.1 g/dL [facility] Immature granulocytes/100 WBC (Bld) 0 % 0 [facility] Interpretation and review of laboratory results Abnormal [facility] Lymphocytes/100 WBC (Bld) 4 % Low 24 - 43 % [facility] MCH (RBC) [Entitic mass] 33.1 pg 25.2 - 33.5 pg [facility] MCHC (RBC) [Mass/Vol] 35.7 g/dL High 28.4 - 34.8 g/dL [facility] MCV (RBC) [Entitic vol] 92.8 fL 82.6 - 102.9 fL [facility] Monocytes/100 WBC (Bld) 5 % 3 - 12 % B ON [facility] NRBC Automated 0.0 0.0 per 100 WBC [facility] Platelet distribution width (Bld) [Ratio] 12.3 % 11.8 - 14.4 % [facility] Platelet mean volume (Bld) [Entitic vol] 10.5 fL 8.1 - 13.5 fL [facility] Platelets (Bld) [#/Vol] 174 10*3/uL [facility] RBC (Bld) [#/Vol] 4.71 10*6/uL 3.95 - 5.1 1 m/uL [facility] Segmented neutrophils/100 WBC (Bld) 91 % High 36 - 65 % [facility] Segs Absolute 13.82 High [facility] WBC (Bld) [#/Vol] 15.3 10*3/uL High [facility] CMPon 04-24-2022 Albumin [Mass/Vol] 4.8 g/dL 3.5 - 5.2 g/dL [facility] Albumin/Globulin [Mass ratio] 1.6 {ratio} 1.0 - 2.5 [facility] ALP [Catalytic activity/Vol] 87 U/L 35 - 104 U/L [facility] ALT [Catalytic activity/Vol] 19 U/L 5 - 33 U/L [facility] Anion gap [Moles/Vol] 17 mmol/L 9 - 17 mmol/L [facility] AST [Catalytic activity/Vol] 23 U/L NINF - 32 U/L [facility] Bilirubin [Mass/Vol] 1.0 mg/dL 0.3 - 1 .2 mg/dL [facility] Calcium [Mass/Vol] 10.4 mg/dL 8.6 - 10. 4 mg/dL [facility] Chloride [Moles/Vol] 105 mmol/L 98 - 10 7 mmol/L [facility] CO2 [Moles/Vol] 19 mmol/L Low 20 - 31 mmol/L [facility] Creatinine [Mass/Vol] 0.84 mg/dL 0.50 - 0.90 mg/dL [facility] GFR/1.73 sq M.predicted MDRD (S/P/Bld) [Vol rate/Area] - PINF [facility] Comment on above: These results are not [...] 151 mg/dL High 70 - 99 mg/dL [facility] [place] Interpretation and review of laboratory results Abnormal [facility] [place] Potassium [Moles/Vol] 3.9 mmol/L 3.7 - 5.3 mmol/L [facility] [place] Protein [Mass/Vol] 7.8 g/dL 6.4 - 8.3 g/dL [facility] [place] [place] Sodium [Moles/Vol] 141 mmol/L 135 - 144 mmol/L [facility] [place] [place] Urea nitrogen [Mass/Vol] 9 mg/dL 6 - 20 mg/dL [facility] [employer] Urea nitrogen/Creatinine (Bld) [Mass ratio] 11 9 - 20 [facility] [place] [place] [facility] ABDOMEN PELVIS W IV CONTR AST Additional Contrast? Noneon 04-24-2022 Fluid within the colon is consistent with a diarrheal illness clinically. Otherwise, no acute intra-abdominal or pelvic abnormality [facility] RIS CONSOLIDATED EXAMINATION: CT OF THE [...] pathologic adenopathy. Bones/Soft Tissues: No acute abnormality [facility] Rogelio Cantor MD - 04/24/2022 EXAMINATION: CT OF THE [...] Otherwise, no acute intra-abdominal or pelvic abnormality [employer] Phone: Radiology Study observation (narrative) [employer] Phone: CT ABDOMEN PELVIS W IV CONTR AST Additional Contrast? NoneOrdered By: Rogelio Lima on 04-24-2022 [employer] Phone: Lactic Acidon 04-24-2022 Lactate (P samantha) [Moles/Vol] 2.1 mmol/L 0.5 - 2.2 mmol/L [employer] Lipaseon 04-24-2022 Lipase [Catalytic activity/Vol] 24 U/L 13 - 60 U/L [facility] Microscopic Urinalysison Bacteria, UA 1+ Abnormal None [facility] Epithelial Cells UA 5 TO 10 [facility] Interpretation and review of laboratory results Abnormal [facility] Mucus, UA 1+ Abnormal None [facility] RBC clumps Auto (Urine sed) [#/Area] None [facility] WBC, UA 0 TO 2 [facility] No Panel Informationon 04-24 [facility] Urinalysison 04-24-2022 Bilirubin Urine Negative NEGATIVE [facility] Color, UA Yellow Yellow [facility] Glucose Auto test strip (U) [Mass/Vol] Negative NEGATIVE [facility] Interpretation and review of laboratory results Abnormal [facility] Ketones (U) [Mass/Vol] 2+ Abnormal NEGATIVE [facility] Leukocyte esterase Auto test strip Ql (U) Negative NEGATIVE [facility] Nitrite Auto test strip Ql (U) Negative NEGATIVE [facility] Protein (U) [Mass/Vol] 5.0 - 9.0 [facility] Protein (U) [Mass/Vol] Negative NEGATIVE [facility] Specific Potter, UA 1.010 1.010 - 1.020 B ON [facility] Turbidity UA SLIGHTLY CLOUDY Abnormal Clear [facility] Urine Hgb Negative NEGATIVE [facility] Urobilinogen, Urine Normal Normal [facility] , urineon 3 Beta HCG ( test) Ql (U) Negative NEGATIVE [facility] Comment on above: Specimens with hCG l evels near the threshold of the test (25 mIU/mL) may give a negative or indeterminate result. In such cases, another test should be performed with a new specimen in 48-72 hours. If early is suspected clinically in this setting, correlation with quantitative serum b-hCG level is suggested. [email or web address] has confirmed the use of plasma for this test. This has not been cleared or approved by the U.S. Food and Drug Administration. The FDA has determined that such clearance is not necessary. [facility] Cholesterol [Mass/volume] in Serum or PlasmaOrdered By: Feliberto Faust on 10-27-2021 Cholesterol [Mass/Vol] 102 mg/dL 140-200 [facility] Comment on above: Chol less than 200 m g/dl low risk Chol 201-239 mg/dl borderline risk Chol 240 mg/dl and greater high risk Cholesterol in LDL Calc [Mas s/Vol]Ordered By: Feliberto Fasut on 10-27-2021 Cholesterol in LDL [Mass/Vol] 58 mg/dL 0-100 [facility] Comment on above: LDL ATP III CLASSIFI CATION LDL less than 100 mg/dL Optimal LDL 100-129 mg/dL Near or above optimal LDL 130-159 mg/dL Borderline high LDL 160-189 mg/dL High LDL greater than 189 mg/dL Very high Cholesterol in VLDL Calc [Ma ss/Vol]Ordered By: Feliberto Faust on 10-27-2021 Cholesterol in VLDL [Mass/Vol] 13 mg/dL [facility] ECG 12 lead ECGon 10-27-2021 ECG 12 lead ECG [facility] [place] [address] Electrocardiograph Report Signed Patient: Bennett Vaughn MR#: [id number] 7 : 1995 Acct:[id number] Age/Sex: 26 / F ADM Date: 10/26/21 Loc: Room: [address] [place] [address] Type: DIS IN Attending Dr: Feliberto Faust [...] : 416 ms Sinus bradycardia with short VT Otherwise normal ECG When compared with ECG of 10-APR-2019 09:44, Vent. rate has decreased BY 29 BPM Confirmed by PAYAM LIVINGSTON DO ([id number]) on 10/27/2021 1:03:16 PM Referred By: Electronically Signed By:PAYAM LIVINGSTON DO Transcribed By: MUS Signed By Payam Livingston DO 10/27 1303 Normal [facility] Lipid Panelon 10-27-2021 Cholesterol [Mass/Vol] 102 mg/dL Low 140-200 [facility] Comment on above: Result Comment: Chol less than 200 mg/dl low risk Chol 201-239 mg/dl borderline risk Chol 240 mg/dl and greater high risk Performed By: #### L IPID, TSH3 wRFLX, [id number] #### [facility] [address] [id number] [facility] Cholesterol in HDL [Mass/Vol] 30 mg/dL Low 35-85 [facility] Comment on above: Result Comment: HDL CHOL ATP-III CLASSIFICATION Cardiovascular Risk HDL > or equal to 60 mg/dL LOW HDL < 40 mg/dL HIGH Performed By: #### L IPID, TSH3 wRFLX, [id number] #### [facility] [address] Cholesterol.total/Fanny sterol in HDL [Mass ratio] 3.4 {ratio} Normal <5.0 [facility] Comment on above: Performed By: #### L IPID, TSH3 wRFLX, [id number] #### [facility] [address] [id number] [place] LDL Cholesterol,Calculated 58 mg/dL Normal 0-100 [facility] Comment on above: Result Comment: LDL ATP III CLASSIFICATION LDL less than 100 mg/dL Optimal LDL 100-129 mg/dL Near or above optimal LDL 130-159 mg/dL Borderline high LDL 160-189 mg/dL High LDL greater than 189 mg/dL Very high Performed By: #### L IPID, TSH3 wRFLX, [id number] #### [facility] [address] [place] [address] [place] Triglyceride w/Reflex 68 mg/dL Normal 35-149 [facility] Comment on above: Result Comment: TRIG ATP III CLASSIFICATION TRIG less than 150 mg/dL Normal TRIG 150-199 mg/dL Borderline high TRIG 200-500 mg/dL High TRIG greater than 500 mg/dL Very high Standard traceable to the Center for Disease Conrtrol and Prevention (CDC) test method. Performed By: #### L IPID, TSH3 wRFLX, [id number] #### [facility] [address] VLDL CHOLESTEROL 13 mg/dL Normal [facility] Comment on above: Performed By: #### L IPID, TSH3 wRFLX, [id number] #### [facility] [address] No Panel InformationOrdered By: Feliberto Faust on 10-27-2021 25-Hydroxy Vitamin D Total 36.4 ng/mL 30-100 [facility] Comment on above: VITAMIN D STATUS [...] Cholesterol in HDL [Mass/Vol] 30 mg/dL 35-85 [facility] Comment on above: HDL CHOL ATP-III CLA SSIFICATION Cardiovascular Risk HDL > or equal to 60 mg/dL LOW HDL < 40 mg/dL HIGH Serum or plasma total choles terol/high density lipoprotein (HDL) cholesterol mass ratOrdered By: Feliberto Faust on 10-27-2021 Cholesterol.total/Fanny sterol in HDL [Mass ratio] 3.4 {ratio} <5.0 [facility] TSH DL <= 0.005 mIU/L QnOrde red By: Feliberto Faust on 10-27-2021 TSH Qn 1.28 m[IU]/L 0.45-5.33 [facility] Thyroid Stim Hormone w/Rflxo n 10-27-2021 Thyroid Stim Hormone w/Rflx 1.28 u[iU]/mL Normal 0.45-5.33 [facility] Comment on above: Performed By: #### L IPID, TSH3 wRFLX, [id number] #### [facility] [address] [place], [place] [id number] [facility] Triglyceride [Mass/volume] i n Serum or PlasmaOrdered By: Feliberto Faust on 10-27-2021 Triglyceride [Mass/Vol] 68 mg/dL 35-149 F [facility] Comment on above: TRIG ATP III CLASSIF ICATION TRIG less than 150 mg/dL Normal TRIG 150-199 mg/dL Borderline high TRIG 200-500 mg/dL High TRIG greater than 500 mg/dL Very high Standard traceable to the Center for Disease Conrtrol and Prevention (CDC) test method. Vitamin D 25 Hydroxy Totalon 10-27-2021 Vitamin D 25 Hydroxy Total 36.4 ng/mL Normal 30-100 [facility] Comment on above: Result Comment: KELSEY MIN D STATUS 25(OH)VITAMIN D RANGE (ng/mL) Deficient <20 Insufficient 20 to <30 Sufficient 30 to 100 Reference: Kath MF,Ramón NC, Teetee DAVIS, et al. Evaluation,treatment, and prevention of vitamin D deficiency; an Endocrine Society clinical practice guideline. JCEM. 2010; 96(7):1911-30. PERFORMED BY: [place] [address] PATHOLOGIST [employer] JAMES MCNAIR M.D. Performed By: #### C BC, ETOH, CMP #### [place] [id number] [facility] Albumin [Mass/volume] in Ser um or PlasmaOrdered By: Ed Amaral on 10-26-2021 Albumin [Mass/Vol] 4.0 g/dL 3.2-5.5 [facility] Amphetamine Screen Ql (U)Ord ered By: Ed Amaral on 10-26-2021 Amphetamines Ql (U) Negative Negative [facility] Automated erythrocytes count in urine sediment (number/area)Ordered By: Ed Amaral on 10-26-2021 RBC Auto (Urine sed) [#/Area] 0-1 [HPF] 0-4 [facility] Automated leukocytes count i n urine sediment (number/area)Ordered By: Ed Amaral on 10-26-2021 WBC Auto (Urine sed) [#/Area] 1-2 [HPF] 0-4 [facility] Automated urine color determ inationOrdered By: Ed Amaral on 10-26-2021 Color (U) Yellow Normal Yellow [facility] Comment on above: Order Comment: Name Collection Type:: Clean-Voided Midstream Performed By: #### S OFIANEG, URDS, ADDONUAPLUS, UHCG, COVID-19 FELI #### [facility] [address] Barbiturates [Presence] in U rineOrdered By: Ed Amaral on 10-26-2021 Barbiturates Ql (U) Negative Negative [facility] Basophils Auto (Bld) [#/Vol] Ordered By: Ed Amaral on 10-26-2021 Basophils (Bld) [#/Vol] 0.1 10*3/uL 0.0-0.2 [facility] Basophils/100 WBC Auto (Bld) Ordered By: Ed Amaral on 10-26-2021 Basophils/100 WBC (Bld) 0.8 % . F [facility] Benzodiazepines [Presence] i n UrineOrdered By: Ed Amaral on 10-26-2021 Benzodiazepines Ql (U) Negative Negative [facility] Bilirubin Test strip Ql (U)O rdered By: Ed Amaral on 10-26-2021 Bilirubin Ql (U) Negative Negative [facility] Blood hemoglobin measurement (mass/volume)Ordered By: Ed Amaral on 10-26-2021 Hemoglobin (Bld) [Mass/Vol] 13.3 g/dL 11.8-15.4 [facility] Blood leukocytes automated c ount (number/volume)Ordered By: Ed Amaral on 10-26-2021 WBC (Bld) [#/Vol] 10.2 10*3/uL 4.5-11.0 [facility] COVID-19 Antigenon 2 COVID-19 Antigen Healthcare [...] developed and its performance characteristic determined by [employer] and validated at [facility]. This test has not been FDA [...] for SARS Antigen by ERNESTO PERFORMED BY: [place] [address] PATHOLOGIST [employer] JAMES MCNAIR M.D. [facility] Comment on above: Performed By: #### S BALJINDER HOBSON, CONORUAPLUS, UHCG, COVID-19 FELI #### [facility] [address] COVID-19 SOFIAOrdered By: Archie Amaral on 10-26-2021 SARS-CoV+SARS-CoV-2 (COVID-19) Ag IA.rapid Ql (Resp) Negative Negative [facility] Comment on above: This is a duplicate Feli SARS Antigen (ERNESTO) result to be used for statistical tracking purpose only. Cannabinoids [Presence] in U rine by Screen methodOrdered By: Ed Amaral on 10-26-2021 Cannabinoids Screen Ql (U) Positive Negative [facility] Comment on above: These are unconfirme d results and should not be used for legal purposes. Drug Cut-Off Concentration: AMPH 1000 ng/mL SANCHEZ 200 ng/mL RENZO 200 ng/mL COCM 300 ng/mL OP 300 ng/mL PCP 25 ng/mL THC 20 ng/mL Complete Blood Count Auto Di ffon 10-26-2021 Basophils (Bld) [#/Vol] 0.1 10*3/uL Normal 0.0-0.2 [facility] Comment on above: Result Comment: PERF ORMED BY: [place] [address] PATHOLOGIST [employer] JAMES MCNAIR M.D. Performed By: #### C BC, ETOH, CMP #### [address] Basophils/100 WBC (Bld) 0.8 % Normal . F [facility] Comment on above: Performed By: #### C BC, ETOH, CMP #### [address] Eosinophils (Bld) [#/Vol] 0.2 10*3/uL Normal 0.0-0.45 [facility] Comment on above: Performed By: #### C BC, ETOH, CMP #### [address] Eosinophils/100 WBC (Bld) 1.9 % Normal . [facility] Comment on above: Performed By: #### C BC, ETOH, CMP #### [address] Erythrocyte distribution width (RBC) [Ratio] 13.0 % Normal 11.9-15.3 [facility] Comment on above: Performed By: #### C BC, ETOH, CMP #### [address] Hematocrit (Bld) [Volume fraction] 39.1 % Normal 34.0-46.4 [facility] Comment on above: Performed By: #### C BC, ETOH, CMP #### [address] [place] [address] [place] Hemoglobin (Bld) [Mass/Vol] 13.3 g/dL Normal 11.8-15.4 [facility] Comment on above: Performed By: #### C BC, ETOH, CMP #### [facility] [address] [place] [address] [place] Lymphocytes (Bld) [#/Vol] 2.2 10*3/uL Normal 1.00-4.8 [facility] Comment on above: Performed By: #### C BC, ETOH, CMP #### [facility] [address] Lymphocytes/100 WBC (Bld) 21.5 % Normal . [facility] Comment on above: Performed By: #### C BC, ETOH, CMP #### [address] MCH (RBC) [Entitic mass] 32.9 pg Normal 24.7-34.3 [facility] Comment on above: Performed By: #### C BC, ETOH, CMP #### [place] [address] [place] MCV (RBC) [Entitic vol] 96.5 fL Normal 80-100 [facility] Comment on above: Performed By: #### C BC, ETOH, CMP #### [address] Mean Corpuscular HGB Conc 34.1 g/dL Normal 32.0-35.0 [facility] Comment on above: Performed By: #### C BC, ETOH, CMP #### [facility] [address] [place] [address] [place] Monocytes (Bld) [#/Vol] 0.6 10*3/uL Normal 0.0-0.8 [facility] Comment on above: Performed By: #### C BC, ETOH, CMP #### [facility] [address] [place] [address] [place] Monocytes/100 WBC (Bld) 6.2 % Normal . [facility] Comment on above: Performed By: #### C BC, ETOH, CMP #### [facility] [address] Neutrophils (Bld) [#/Vol] 7.1 10*3/uL Normal 1.8-7.7 [facility] Comment on above: Performed By: #### C BC, ETOH, CMP #### [facility] [address] Neutrophils/100 WBC (Bld) 69.6 % Normal . [facility] Comment on above: Performed By: #### C BC, ETOH, CMP #### [facility] [address] Nucleated RBC/100 WBC (Bld) [Ratio] 0.0 % Normal 0-0.5 [facility] Comment on above: Performed By: #### C BC, ETOH, CMP #### [facility] [address] Platelet mean volume (Bld) [Entitic vol] 9.0 fL Normal 6.3-10.7 [facility] Comment on above: Performed By: #### C BC, ETOH, CMP #### [facility] [address] [place] [address] [place] Platelets (Bld) [#/Vol] 173 10*3/uL Normal 150-450 [facility] Comment on above: Performed By: #### C BC, ETOH, CMP #### [facility] [address] [place] [address] [place] RBC (Bld) [#/Vol] 4.05 10*6/uL Normal 3.60-5.00 [facility] Comment on above: Performed By: #### C BC, ETOH, CMP #### [facility] [address] [place] [address] [place] WBC (Bld) [#/Vol] 10.2 10*3/uL Normal 4.5-11.0 [facility] Comment on above: Performed By: #### C BC, ETOH, CMP #### [facility] [address] Comprehensive Metabolic Pane vinita 10-26-2021 Albumin [Mass/Vol] 4.0 g/dL Normal 3.2-5.5 [facility] Comment on above: Performed By: #### C BC, ETOH, CMP #### [facility] [address] Albumin/Globulin [Mass ratio] 1.5 {ratio} Normal [facility] Comment on above: Performed By: #### C BC, ETOH, CMP #### [facility] [address] ALP [Catalytic activity/Vol] 55 U/L Normal 32-92 [facility] Comment on above: Performed By: #### C BC, ETOH, CMP #### [facility] [address] ALT [Catalytic activity/Vol] 20 U/L Normal 10-60 [facility] Comment on above: Performed By: #### C BC, ETOH, CMP #### [address] Anion gap [Moles/Vol] 10.1 mmol/L Normal 6.0-15.0 [facility] Comment on above: Performed By: #### C BC, ETOH, CMP #### [facility] [address] [place] [address] AST [Catalytic activity/Vol] 17 U/L Normal 10-42 [facility] Comment on above: Performed By: #### C BC, ETOH, CMP #### [facility] [address] [place] [address] [place] Bilirubin [Mass/Vol] 0.4 mg/dL Normal 0.3-1.2 [facility] Comment on above: Performed By: #### C BC, ETOH, CMP #### [facility] [address] [place] [address] [place] Calcium [Mass/Vol] 9.5 mg/dL Normal 8.2-10.2 [facility] Comment on above: Performed By: #### C BC, ETOH, CMP #### [facility] [address] [place] [address] [place] Chloride [Moles/Vol] 104 mmol/L Normal 95-114 [facility] Comment on above: Performed By: #### C BC, ETOH, CMP #### [facility] [address] CO2 [Moles/Vol] 25.3 mmol/L Normal 22.0-30.0 [facility] Comment on above: Performed By: #### C BC, ETOH, CMP #### [facility] [address] Creatinine [Mass/Vol] 0.81 mg/dL Normal 0.44-1.03 [facility] Comment on above: Performed By: #### C BC, ETOH, CMP #### [facility] [address] Creatinine Clr Calc Pharmacy 97.62 [facility] Comment on above: Result Comment: PERF ORMED BY: [place] [address] PATHOLOGIST [employer] JAMES MCNAIR M.D. Performed By: #### C BC, ETOH, CMP #### [facility] [address] Estimated GFR ( Nette > 60 [facility] Comment on above: Result Comment: GFR estimated reference range: According to KDOQI guidelines, <60 ml/min/1.73m2 is sufficient to diagnose a patient with chronic kidney disease. Performed By: #### C BC, ETOH, CMP #### [address] Estimated GFR (Non- Am > 60 [facility] Comment on above: Performed By: #### C BC, ETOH, CMP #### [facility] [address] Globulin (S) [Mass/Vol] 2.7 g/dL Normal [facility] Comment on above: Performed By: #### C BC, ETOH, CMP #### [facility] [address] Glucose [Mass/Vol] 98 mg/dL Normal 70-100 [facility] Comment on above: Result Comment: [place] Glucose Reference Range is dependent on time and content of last meal. Glucose of more than 200 mg/dL in a nonstressed, ambulatory subject supports the diagnosis of Diabetes Mellitus. ADA recommended reference range Performed By: #### C BC, ETOH, CMP #### [facility] [address] Potassium [Moles/Vol] 3.4 mmol/L Low 3.5-5.1 [facility] Comment on above: Performed By: #### C BC, ETOH, CMP #### [facility] [address] [place] [address] [place] Protein [Mass/Vol] 6.7 g/dL Normal 6.1-7.9 [facility] Comment on above: Performed By: #### C BC, ETOH, CMP #### [facility] [address] [place] [address] [place] Sodium [Moles/Vol] 136 mmol/L Normal 136-146 [facility] Comment on above: Performed By: #### C BC, ETOH, CMP #### [facility] [address] [place] [address] [place] Urea nitrogen [Mass/Vol] 6 mg/dL Low 9-23 [facility] Comment on above: Performed By: #### C BC, ETOH, CMP #### [facility] [facility] [address] [place] [address] [place] Creatinine and Glomerular fi ltration rate.predicted panel (S/P/Bld)Ordered By: Ed Amaral on 10-26-2021 Creatinine [Mass/Vol] 0.81 mg/dL 0.44-1.03 [facility] Dipstick and Microscopicon 0 10-26-2021 Appearance (U) Clear Normal Clear [facility] Comment on above: Order Comment: Name Collection Type:: Clean-Voided Midstream Performed By: #### S OFIANEG, URDS, ADDONUAPLUS, UHCG, COVID-19 FELI #### [facility] [address] [place] [address] [place] Bilirubin,Urine Negative Normal Negative [facility] Comment on above: Order Comment: Name Collection Type:: Clean-Voided Midstream Performed By: #### S OFIANEG, URDS, ADDONUAPLUS, UHCG, COVID-19 FELI #### [facility] [address] [place] [address] Glucose Ql (U) Normal Normal Normal [facility] Comment on above: Order Comment: Name Collection Type:: Clean-Voided Midstream Performed By: #### S OFIANEG, URDS, ADDONUAPLUS, UHCG, COVID-19 FELI #### [facility] [address] [place] [address] [place] Ketones Ql (U) Negative Normal Negative [facility] Comment on above: Order Comment: Name Collection Type:: Clean-Voided Midstream Performed By: #### S OFIANEG, URDS, ADDONUAPLUS, UHCG, COVID-19 FELI #### [address] Leukocyte esterase Test strip Ql (U) 1+ High Negative [facility] Comment on above: Order Comment: Name Collection Type:: Clean-Voided Midstream Performed By: #### S OFIANEG, URDS, ADDONUAPLUS, UHCG, COVID-19 FELI #### [facility] [address] [place] [address] [place] Nitrite,Urine Negative Normal Negative [facility] Comment on above: Order Comment: Name Collection Type:: Clean-Voided Midstream Performed By: #### S OFIANEG, URDS, ADDONUAPLUS, UHCG, COVID-19 FELI #### [facility] [address] [place] [address] [place] Occult Blood,Urine Negative Normal Negative [facility] Comment on above: Order Comment: Name Collection Type:: Clean-Voided Midstream Performed By: #### S OFIANEG, URDS, ADDONUAPLUS, UHCG, COVID-19 FELI #### [place] [address] [place] Protein,Urine Negative Normal Negative [facility] Comment on above: Order Comment: Name Collection Type:: Clean-Voided Midstream Performed By: #### S OFIANEG, URDS, ADDONUAPLUS, UHCG, COVID-19 FELI #### [address] RBC LM.HPF (Urine sed) [#/Area] 0 /[HPF] Normal 0-4 [facility] Comment on above: Order Comment: Name Collection Type:: Clean-Voided Midstream Performed By: #### S OFIANEG, URDS, ADDONUAPLUS, UHCG, COVID-19 FELI #### [address] Specificy Potter,Urine 1.005 Normal 1.001-1.030 [facility] Comment on above: Order Comment: Name Collection Type:: Clean-Voided Midstream Performed By: #### S OFIANEG, URDS, ADDONUAPLUS, UHCG, COVID-19 FELI #### [address] Squamous Epithelial Cell,Urine 1-2 Normal 0-2 [facility] Comment on above: Order Comment: Name Collection Type:: Clean-Voided Midstream Performed By: #### S OFIANEG, URDS, ADDONUAPLUS, UHCG, COVID-19 FELI #### [address] Urobilinogen,Urine Normal Normal Normal [facility] Comment on above: Order Comment: Name Collection Type:: Clean-Voided Midstream Performed By: #### S OFIANEG, URDS, ADDONUAPLUS, UHCG, COVID-19 FELI #### [address] WBC,Urine 1-2 Normal 0-4 [facility] Comment on above: Order Comment: Name Collection Type:: Clean-Voided Midstream Performed By: #### S OFIANEG, URDS, ADDONUAPLUS, UHCG, COVID-19 FELI #### [address] Drug Screen,Urineon 08-30-20 22 Amphetamine Screen,Urine Negative Normal Negative [facility] Comment on above: Performed By: #### S OFIANEG, URDS, ADDONUAPLUS, UHCG, COVID-19 FELI #### [address] Barbiturate Screen,Urine Negative Normal Negative [facility] Comment on above: Performed By: #### S OFIANEG, URDS, ADDONUAPLUS, UHCG, COVID-19 FELI #### [address] Benzodiazepines Screen,Urine Negative Normal Negative [facility] Comment on above: Performed By: #### S OFIANEG, URDS, ADDONUAPLUS, UHCG, COVID-19 FELI #### [address] Cannabinoid Screen,Urine Positive High Negative [facility] Comment on above: Result Comment: Thes e are unconfirmed results and should not be used for legal purposes. Drug Cut-Off Concentration: AMPH 1000 ng/mL SANCHEZ 200 ng/mL RENZO 200 ng/mL COCM 300 ng/mL OP 300 ng/mL PCP 25 ng/mL THC 20 ng/mL PERFORMED BY: [place] [address] PATHOLOGIST [employer] JAMES MCNAIR M.D. Performed By: #### S OFIANEG, URDS, ADDONUAPLUS, UHCG, COVID-19 FELI #### [address] Cocaine Screen,Urine Negative Normal Negative [facility] Comment on above: Performed By: #### S OFIANEG, URDS, ADDONUAPLUS, UHCG, COVID-19 FELI #### [address] Opiate Screen,Urine Negative Normal Negative [facility] Comment on above: Performed By: #### S OFIANEG, URDS, ADDONUAPLUS, UHCG, COVID-19 FELI #### [address] Phencyclidine Screen,Urine Negative Normal Negative [facility] Comment on above: Performed By: #### S OFIANEG, URDS, ADDONUAPLUS, UHCG, COVID-19 FELI #### [facility] [address] [place] [address] Eosinophils Auto (Bld) [#/Vo l]Ordered By: Ed Amaral on 10-26-2021 Eosinophils (Bld) [#/Vol] 0.2 10*3/uL 0.0-0.45 [facility] Eosinophils/100 WBC Auto (Bl d)Ordered By: Ed Amaral on 10-26-2021 Eosinophils/100 WBC (Bld) 1.9 % . [facility] Erythrocyte distribution wid th Auto (RBC) [Ratio]Ordered By: Ed Amaral on 10-26-2021 Erythrocyte distribution width (RBC) [Ratio] 13.0 % 11.9-15.3 [facility] Estimated glomerular filtrat ion rate (GFR) non- AmericanOrdered By: Ed Amaral on 10-26-2021 GFR/1.73 sq M.predicted among non-blacks MDRD (S/P/Bld) [Vol rate/Area] > 60 mL/Min [facility] Ethyl Alcohol Profileon 09-29 Ethanol [Mass/Vol] mg/dL Normal [facility] Comment on above: Performed By: #### C BC, ETOH, CMP #### [facility] [address] [place] [address] Percent Ethanol Not performed Normal [facility] Comment on above: Result Comment: PERF ORMED BY: [place] [address] PATHOLOGIST [employer] JAMES MCNAIR M.D. Performed By: #### C BC, ETOH, CMP #### [facility] [address] [place] [address] Globulin Calc (S) [Mass/Vol] Ordered By: Ed Amaral on 10-26-2021 Globulin (S) [Mass/Vol] 2.7 g/dL F [facility] HCG ( test) IA.rapi d Ql (U)Ordered By: Ed Amaral on 10-26-2021 HCG ( test) Ql (U) Negative [facility] HCG,Urineon 10-26-2021 Beta HCG ( test) Ql (U) Negative Normal [facility] Comment on above: Order Comment: Name Collection Type:: Clean-Voided Midstream Result Comment: PERF ORMED BY: [facility] [address] [place] [address] PATHOLOGIST [employer] JAMES MCNAIR M.D. Performed By: #### S OFIANEG, URDS, ADDONUAPLUS, UHCG, COVID-19 FELI #### [facility] [address] Hematocrit Auto (Bld) [Volum e fraction]Ordered By: Ed Amaral on 10-26-2021 Hematocrit (Bld) [Volume fraction] 39.1 % 34.0-46.4 [facility] Ketones Auto test strip (U) [Mass/Vol]Ordered By: Ed Amaral on 10-26-2021 Ketones (U) [Mass/Vol] Negative Negative [facility] - Drug toxicology Ordered By: Ed Amaral on 10-26-2021 Opiates Ql (U) Negative Negative [facility] Laboratory - Hematology and Cell countsOrdered By: Ed Amaral on 10-26-2021 Nucleated RBC/100 WBC (Bld) [Ratio] 0.0 % 0-0.5 [facility] Lymphocytes Auto (Bld) [#/Vo l]Ordered By: Ed Amaral on 10-26-2021 Lymphocytes (Bld) [#/Vol] 2.2 10*3/uL 1.00-4.8 [facility] Lymphocytes/100 WBC Auto (Bl d)Ordered By: Ed Amaral on 10-26-2021 Lymphocytes/100 WBC (Bld) 21.5 % . [facility] MCH Auto (RBC) [Entitic mass ]Ordered By: Ed Amaral on 10-26-2021 MCH (RBC) [Entitic mass] 32.9 pg 24.7-34.3 [facility] MCHC Auto (RBC) [Mass/Vol]Or dered By: Ed Amaral on 10-26-2021 MCHC (RBC) [Mass/Vol] 34.1 g/dL 32.0-35.0 [facility] MCV Auto (RBC) [Entitic vol] Ordered By: Ed Amaral on 10-26-2021 MCV (RBC) [Entitic vol] 96.5 fL 80-100 [facility] Monocytes Auto (Bld) [#/Vol] Ordered By: Ed Amaral on 10-26-2021 Monocytes (Bld) [#/Vol] 0.6 10*3/uL 0.0-0.8 [facility] Monocytes/100 WBC Auto (Bld) Ordered By: Ed Amaral on 10-26-2021 Monocytes/100 WBC (Bld) 6.2 % . [facility] Neutrophils Auto (Bld) [#/Vo l]Ordered By: Ed Amaral on 10-26-2021 Neutrophils (Bld) [#/Vol] 7.1 10*3/uL 1.8-7.7 [facility] Neutrophils/100 WBC Auto (Bl d)Ordered By: Ed Amaral on 10-26-2021 Neutrophils/100 WBC (Bld) 69.6 % . [facility] Nitrite Test strip Ql (U)Ord ered By: Ed Amaral on 10-26-2021 Nitrite Ql (U) Negative Negative [facility] No Panel InformationOrdered By: Ed Amaral on 10-26-2021 Estimated GFR () > 60 mL/Min [facility] Comment on above: GFR estimated refere nce range: According to KDOQI guidelines, <60 ml/min/1.73m2 is sufficient to diagnose a patient with chronic kidney disease. Pharmacy Creatinine Clearance (Chem 97.62 [facility] SARS Antigen (LFIA) [facility] Phencyclidine Screen Ql (U)O rdered By: Ed Amaral on 10-26-2021 Phencyclidine Ql (U) Negative Negative [facility] Platelet mean volume Auto (B ld) [Entitic vol]Ordered By: Ed Amaral on 10-26-2021 Platelet mean volume (Bld) [Entitic vol] 9.0 fL 6.3-10.7 [facility] Platelets Auto (Bld) [#/Vol] Ordered By: Ed Amaral on 10-26-2021 Platelets (Bld) [#/Vol] 173 10*3/uL 150-450 [facility] Protein Auto test strip (U) [Mass/Vol]Ordered By: Ed Amaral on 10-26-2021 Protein (U) [Mass/Vol] Negative Negative [facility] Protein [Mass/volume] in Ser um or PlasmaOrdered By: Ed Amaral on 10-26-2021 Protein [Mass/Vol] 6.7 g/dL 6.1-7.9 [facility] RBC Auto (Bld) [#/Vol]Ordere d By: Ed Amaral on 10-26-2021 RBC (Bld) [#/Vol] 4.05 10*6/uL 3.60-5.00 [facility] Serum or plasma alanine daniel otransferase measurement without P-5'-P (enzymatic activiOrdered By: Ed Amaral on 10-26-2021 ALT No additional P-5'-P [Catalytic activity/Vol] 20 U/L 1060 [facility] Serum or plasma albumin/glob ulin mass ratioOrdered By: Ed Amaral on 10-26-2021 Albumin/Globulin [Mass ratio] 1.5 {ratio} [facility] Serum or plasma alkaline jame sphatase measurement (enzymatic activity/volume)Ordered By: Ed Amaral on 10-26-2021 ALP [Catalytic activity/Vol] 55 U/L 32-92 [facility] Serum or plasma anion gap de terminationOrdered By: Ed Amaral on 10-26-2021 Anion gap [Moles/Vol] 10.1 mmol/L 6.0-15.0 [facility] Serum or plasma aspartate am inotransferase measurement (enzymatic activity/volume)Ordered By: Ed Amaral on 10-26-2021 AST [Catalytic activity/Vol] 17 U/L 1042 [facility] Serum or plasma calcium stephane urement (mass/volume)Ordered By: Ed Amaral on 10-26-2021 Calcium [Mass/Vol] 9.5 mg/dL 8.2-10.2 [facility] Serum or plasma chloride rios surement (moles/volume)Ordered By: Ed Amaral on 10-26-2021 Chloride [Moles/Vol] 104 mmol/L 95-114 [facility] Serum or plasma ethanol stephane urement (mass/volume)Ordered By: Ed Amaral on 10-26-2021 Ethanol [Mass/Vol] mg/dL [facility] Ethanol [Mass/Vol] TNP [facility] Comment on above: Test not performed Serum or plasma glucose stephane urement (mass/volume)Ordered By: Ed Amaral on 10-26-2021 Glucose [Mass/Vol] 98 mg/dL 70-100 [facility] Comment on above: ADA recommended refe rence range Random Glucose Reference Range is dependent on time and content of last meal. Glucose of more than 200 mg/dL in a nonstressed, ambulatory subject supports the diagnosis of Diabetes Mellitus. Serum or plasma potassium me asurement (moles/volume)Ordered By: Ed Amaral on 10-26-2021 Potassium [Moles/Vol] 3.4 mmol/L 3.5-5.1 [facility] Serum or plasma sodium measu rement (moles/volume)Ordered By: Ed Amaral on 10-26-2021 Sodium [Moles/Vol] 136 mmol/L 136-146 [facility] Serum or plasma total biliru bin measurement (mass/volume)Ordered By: Ed Amaral on 10-26-2021 Bilirubin [Mass/Vol] 0.4 mg/dL 0.3-1.2 [facility] Serum or plasma total carbon dioxide measurement (moles/volume)Ordered By: Ed Amaral on 10-26-2021 CO2 [Moles/Vol] 25.3 mmol/L 22.0-30.0 [facility] Serum or plasma urea nitroge n measurement (mass/volume)Ordered By: Ed Amaral on 10-26-2021 Urea nitrogen [Mass/Vol] 6 mg/dL 11-19 [facility] Feli Ag Negativeon 10-27-19 22 Feli Ag Negative Negative Normal Negative [facility] Comment on above: Result Comment: This is a duplicate Feli SARS Antigen (ERNESTO) result to be used for statistical tracking purpose only. PERFORMED BY: [facility] [address] [place] [address] PATHOLOGIST [employer] JAMES MCNAIR M.D. Performed By: #### S BALJINDER HOBSON, ADDONUAPLUS, UHCG, COVID-19 FELI #### [address] Specific gravity Auto test s trip (U) [Rel density]Ordered By: Ed Amaral on 10-26-2021 Specific gravity (U) [Rel density] 1.005 1.001-1.030 [facility] Squamous epithelial cells de tection in urine sediment by light microscopyOrdered By: Ed Amaral on 10-26-2021 Epithelial cells.squamous LM Ql (Urine sed) 1-2 [HPF] 0-2 [facility] Urine bacteria detection by automated methodOrdered By: Ed Amaral on 10-26-2021 Bacteria Auto Ql (U) N/A [facility] Urine clarity by refractomet ry automatedOrdered By: Ed Amaral on 10-26-2021 Clarity Refractometry automated (U) Clear Clear [facility] Urine cocaine detectionOrder ed By: Ed Amaral on 10-26-2021 Cocaine Ql (U) Negative Negative [facility] Urine glucose measurement by automated test strip (mass/volume)Ordered By: Ed Amaral on 10-26-2021 Glucose Auto test strip (U) [Mass/Vol] Normal mg/dL Normal [facility] Urine hemoglobin detection b y automated test stripOrdered By: Ed Amaral on 10-26-2021 Hemoglobin Auto test strip Ql (U) Negative Negative [facility] Urine leukocyte esterase det ection by automated test stripOrdered By: Ed Amaral on 10-26-2021 Leukocyte esterase Auto test strip Ql (U) 1+ Negative [facility] Urine pH measurement by auto mated test stripOrdered By: Ed Amaral on 10-26-2021 pH (U) 7.0 [pH] Normal 5.0-9.0 [facility] Comment on above: Order Comment: Name Collection Type:: Clean-Voided Midstream Performed By: #### S BALJINDER HOBSON, ADDONUAPLUS, UHCG, COVID-19 FELI #### [facility] [address] [place] [id number] [facility] Urobilinogen Auto test strip (U) [Mass/Vol]Ordered By: Ed Amaral on 10-26-2021 Urobilinogen (U) [Mass/Vol] Normal mg/dL Normal [facility] Viral Non-Resp Culton 2021 Viral Non-Resp Cult Specimen Description .WOUND UPPER .LIP Culture POSITIVE: HSV-1 DNA detected by nucleic acid amp. NEGATIVE: HSV-2 DNA not detected by nucleic acid amplification. Due to the specimen source, HSV 1,2 testing was performed by a molecular method. Report Status FINAL 05/30/2021 Normal [facility] Comment on above: Performed By: #### V [facility] #### [place] [id number] Sprigger: Claude Gonzalez MD No Panel InformationOrdered By: Kia Sharma on 05-28-2021 Reported Physicians See Note [facility] Work Phone: Comment on above: Note: Reported Physi cians:Ordering: Andres SharmaaAttending: Andres SharmaaReferring: Kia Sharma Viral Non-Resp Cult See Note [facility] Work Phone: Comment on above: Note: Specimen Descr iption .WOUND UPPER .LIPCulture POSITIVE: HSV-1 DNA detected by nucleic acid amp.NEGATIVE: HSV-2 DNA not detected by nucleic acid amplification.Due to the specimen source, HSV 1,2 testing was performed by a molecular method.Report Status FINAL 2Responsible Observer: SUMMER BOYD ([id number]) Follicle Stimulating Hormone on 03-10-2021 FSH 4.5 U/L 1.7 - 21.5 U/L [facility] Comment on above: Reference Range: Male: 1.5-12.4 Ovulating Female: Follicular Phase 3.5-12.5 Ovulation Phase 4.7-21.5 Luteal Phase 1.7-7.7 Postmenopausal Female: 25.8-134.8 Luteinizing Hormoneon 2021 LH 3.0 U/L 1.0 - 95.6 U/L [employer] Comment on above: Reference Range: Male: 1.7-8.6 Ovulating Female: Follicular Phase 2.4-12.6 Ovulation Phase 14.0-95.6 Luteal Phase 1.0-11.4 Postmenopausal Female: 7.7-58.5 No Panel Informationon 03-10 [employer] Prolactinon 03-10-2021 Prolactin 5.96 ug/L 4.79 - 23.30 ug/L [employer] Comment on above: The presence of macr oprolactin may cause interference in female patients with various endocrinological diseases or during . [employer] TSH with Reflexon 03-10-2021 TSH Qn 0.72 m[IU]/L [employer] hCG, Quantitative, on 03-10-2021 hCG Quant <1 <5 IU/L [employer] Comment on above: Non-preg premeno <=5 Postmeno <=8 Male <=3 If HCG results do not concur with clinical observations, additional testing to confirm results is recommended. Elevated results not associated with may be found in patients with other diseases such as tumors of the germ cells (testis, ovaries, etc.), bladder, pancreas, stomach, lungs, and liver. [employer] , UrineOrdered By: Anthony Galloway on 10-14-2020 Beta HCG ( test) Ql (U) Negative NEGATIVE [employer] Phone: Comment on above: Specimens with hCG l evels near the threshold of the test (25 mIU/mL) may give a negative or indeterminate result. In such cases, another test should be performed with a new specimen in 48-72 hours. If early is suspected clinically in this setting, correlation with quantitative serum b-hCG level is suggested. [email or web address] has confirmed the use of plasma for this test. This has not been cleared or approved by the U.S. Food and Drug Administration. The FDA has determined that such clearance is not necessary. [employer] Work Phone: COVID-19Ordered By: Sabas siddiqi on 10-10-2020 SARS-CoV-2 (COVID-19) RNA SANDRA+probe Ql (Unsp spec) [employer] Phone: SARS-CoV-2 (COVID-19) RNA SANDRA+probe Ql (Unsp spec) Not detected Not Detected [employer] Phone: Comment on above: The specimen is NEGATIVE for SARS-CoV-2, the novel coronavirus associated with COVID-19. A negative result does not rule out COVID-19. [employer] SARS-CoV-2 for use on the [employer] is a real-time RT-PCR test intended [...] this assay. Fact sheet for Healthcare Providers: https://www.fda.gov/media/900595/download Fact sheet for Patients: https://www.fda.gov/media/449942/download METHODOLOGY: RT-PCR Source .NASOPHARYNGEAL SWAB [employer] Phone: [employer] Phone: Microscopic Urinalysison Amorphous, UA NOT REPORTED None [facility], [place] Bacteria, UA 1+ Abnormal None [facility], [place] Casts UA NOT REPORTED /LPF [facility], [place] Crystals, UA NOT REPORTED None /HPF [place], [place] Epithelial Cells UA 5 TO 10 [facility] Interpretation and review of laboratory results Abnormal [facility] Mucus, UA NOT REPORTED None [facility], [place] Other Observations UA NOT REPORTED NOT REQ. M [facility], [place] RBC (U) [#/Vol] 0 TO 2 [facility] Renal Epithelial, UA NOT REPORTED 0 /HPF Me [facility], [place] Trichomonas, UA NOT REPORTED None [place], [place] WBC, UA 0 TO 2 [place], [place] Yeast, UA NOT REPORTED None [place], [place] - [place] , Urineon 0 Beta HCG ( test) Ql (U) Negative NEGATIVE [place] Comment on above: Specimens with hCG l evels near the threshold of the test (25 mIU/mL) may give a negative or indeterminate result. In such cases, another test should be performed with a new specimen in 48-72 hours. If early is suspected clinically in this setting, correlation with quantitative serum b-hCG level is suggested. [facility] has confirmed the use of plasma for this test. This has not been cleared or approved by the U.S. Food and Drug Administration. The FDA has determined that such clearance is not necessary. Urinalysis Reflex to Culture on 02-25-2020 Bilirubin Urine Negative NEGATIVE [place], [place] Color, UA YELLOW YELLOW [place] Glucose, Ur Negative NEGATIVE [place] Ketones Ql (U) Negative NEGATIVE [place], [place] Leukocyte esterase Test strip Ql (U) Negative NEGATIVE [place] Nitrite, Urine Negative NEGATIVE [place] pH, UA 6.5 [place] Protein (U) [Mass/Vol] Negative NEGATIVE [place], [place] Specific Potter, UA 1.010 [place], [place] Turbidity UA CLEAR CLEAR [place] Urinalysis Comments NOT REPORTED [place], [place] Urine Hgb Negative NEGATIVE [place] Urobilinogen, Urine Normal Normal [place] Wet Prep, Genitalon 02-25-20 20 Direct Exam NO TRICHOMONAS SEEN [place] Direct Exam NO YEAST OBSERVED [place] Direct Exam CLUE CELLS SEEN Abnormal [place], [place] Interpretation and review of laboratory results Abnormal [place] Special Requests NOT REPORTED [place] Specimen Description .VAGINA [place], [place] Laboratory Studieson 016 Albumin [Mass/Vol] 3.4 g/dL 3.2-5.5 [facility] Albumin/Globulin [Mass ratio] 1.5 {ratio} [facility] ALP [Catalytic activity/Vol] 50 U/L 32-92 [facility] ALT [Catalytic activity/Vol] 17 U/L 10-60 [facility] AST [Catalytic activity/Vol] 16 U/L 10-42 [facility] Basophils (Bld) [#/Vol] 0.0 10*3/uL 0.0-0.2 [facility] Basophils/100 WBC (Bld) 0.3 % F [facility] Bilirubin Ql (U) 0.2 mg/dL Low 0.3-1.2 [facility] Bilirubin.direct [Mass/Vol] mg/dL 0.0-0.4 [facility] Bilirubin.indirect (Body fld) [Mass/Vol] TNP [facility] Comment on above: Test not performed WHEN BILD IS <0.1,IBIL IS NOT ABLE TO BE CALCULATED. Calcium [Mass/Vol] 9.3 mg/dL 8.2-10.2 [facility] Chloride [Moles/Vol] 106 mmol/L 95-114 [facility] Cholesterol [Mass/Vol] 9 mg/dL [facility] Cholesterol [Mass/Vol] 101 mg/dL Low 140-200 [facility] Comment on above: CHOL less than 200 m g/dL Low risk CHOL 201-239 mg/dL Borderline risk CHOL 240 mg/dL and greater High risk Cholesterol in HDL [Mass/Vol] 38 mg/dL 35-85 [facility] Comment on above: HDL CHOL ATP-III CLA SSIFICATION Cardiovascular Risk HDL > or equal to 60 mg/dL Low HDL < 40 mg/dL High Cholesterol.total/Fanny sterol in HDL [Mass ratio] 2.7 {ratio} [facility] CO2 [Moles/Vol] 25.8 mmol/L 22.0-30.0 [facility] Creatinine [Mass/Vol] 0.62 mg/dL 0.44-1.03 [facility] Eosinophils (Bld) [#/Vol] 0.10 10*3/uL 0.0-0.45 [facility] Eosinophils/100 WBC (Bld) 1.5 % [facility] Erythrocyte distribution width (RBC) [Ratio] 13.2 % 11.9-15.3 [facility] Estimated GFR (Non- > 60 [facility] GFR/1.73 sq M.predicted MDRD (S/P/Bld) [Vol rate/Area] mL/min/{1.73_m2} [facility] Comment on above: GFR estimated refere nce range: According to KDOQI guidelines, <60 ml/min/1.73m2 is sufficient to diagnose a patient with chronic kidney disease. Globulin (S) [Mass/Vol] 2.2 g/dL F [facility] [facility] Glucose [Mass/Vol] 82 mg/dL 70-100 [facility] Comment on above: ADA RECOMMENDED REFE RENCE RANGE Hematocrit (Bld) [Volume fraction] 32.1 % Low 34.0-46.4 [facility] Hemoglobin (Bld) [Mass/Vol] 11.0 g/dL Low 11.8-15.4 [facility] LDL Cholesterol, Calculated 54 mg/dL 0-100 [facility] Comment on above: LDL ATP III CLASSIFI CATION LDL less than 100 mg/dL Optimal LDL 100-129 mg/dL Near or above optimal LDL 130-159 mg/dL Borderline high LDL 160-189 mg/dL High LDL greater than 189 mg/dL Very high Lymphocytes (Bld) [#/Vol] 2.1 10*3/uL 1.00-4.8 [facility] Lymphocytes/100 WBC (Bld) 25.3 % [facility] MCH (RBC) [Entitic mass] 31.9 pg 24.7-34.3 [facility] MCHC (RBC) [Mass/Vol] 34.4 g/dL 32.0-35.0 Fir [facility] MCV (RBC) [Entitic vol] 92.6 fL 80-100 F [facility] Monocytes (Bld) [#/Vol] 0.7 10*3/uL 0.0-0.8 [facility] Monocytes/100 WBC (Bld) 8.3 % F [facility] Neutrophils (Bld) [#/Vol] 5.3 10*3/uL 1.8-7.7 [facility] Neutrophils/100 WBC (Bld) 64.6 % [facility] Platelet mean volume (Bld) [Entitic vol] 9.5 fL 6.3-10.7 [facility] Platelets (Bld) [#/Vol] 135 10*3/uL Low 150-450 [facility] Potassium [Moles/Vol] 4.3 mmol/L 3.5-5.1 Fir [facility] Protein [Mass/Vol] 5.6 g/dL Low 6.1-7.9 [facility] RBC (Bld) [#/Vol] 3.46 10*6/uL Low 3.60-5.00 [facility] Sodium [Moles/Vol] 138 mmol/L 136-146 [facility] Triglyceride [Mass/Vol] 47 mg/dL 35-149 F [facility] Comment on above: TRIG ATP III CLASSIF ICATION TRIG less than 150 mg/dL Normal TRIG 150-199 mg/dL Borderline high TRIG 200-500 mg/dL High TRIG greater than 500 mg/dL Very high Standard traceable to the Center for Disease Conrtrol and Prevention (CDC) test method. Troponin I.cardiac [Mass/Vol] 0.02 ng/mL 0-0.02 [facility] Comment on above: HARIS PR Cut off value > or equal to 0.03 ng/mL in conjunction with clinical conditions of myocardial infarction. (www.escardio.org/guidelines) TSH Qn 1.89 uIU/mL 0.340-5.600 [facility] Urea nitrogen [Mass/Vol] 7 mg/dL Low 9-23 [facility] WBC (Bld) [#/Vol] 8.2 10*3/uL 3.8-11.6 [facility] Amorphous sediment LM Ql (Urine sed) 2+ [facility] Comment on above: PHOSPHATES Amphetamines Ql (U) Negative [facility] Appearance (U) Hazy Abnormal [facility] Bacteria LM.HPF (Urine sed) [#/Area] Rare [facility] Benzodiazepines Ql (U) [facility] Bilirubin Ql (U) Negative [facility] Cocaine Ql (U) Negative [facility] Color (U) Light-yellow [facility] Epithelial cells.squamous LM.HPF (Urine sed) [#/Area] 3-4 /hpf [facility] Glucose (U) [Mass/Vol] Normal mg/dL [facility] Ketones Ql (U) Negative [facility] Leukocyte esterase Test strip Ql (U) Negative [facility] Nitrite Ql (U) Negative [facility] Opiates Ql (U) Negative [facility] pH (U) 7.0 [pH] 5.0-9.0 [facility] Phencyclidine Ql (U) Negative [facility] Protein Ql (U) Negative [facility] RBC (U) [#/Vol] Rare /hpf [facility] Specific gravity (U) [Rel density] 1.010 1.001-1.030 [facility] Urine Barbiturates Screen Positive [facility] Urine Collection Type Type [facility] Comment on above: VOIDED Urine Drug Screen Comment See comment [facility] Comment on above: THESE ARE UNCONFIRME D RESULTS AND SHOULD NOT BE USED FOR LEGAL PURPOSES. DRUG CUT-OFF CONCENTRATION: AMPH 1000 ng/mL SANCHEZ 200 ng/mL RENZO 200 ng/mL COCM 300 ng/mL OP 300 ng/mL PCP 25 ng/mL THC 20 ng/mL Urine Marijuana (THC) Screen Positive [facility] Urine Occult Blood Negative [facility] Urobilinogen Qn (U) Normal mg/dL [facility] WBC (U) [#/Vol] Rare /hpf [facility] Laboratory Studieson 016 CK [Catalytic activity/Vol] 51 U/L 22-269 [facility] CK.MB [Mass/Vol] 0.8 ng/mL 0.6-6.3 [facility] Creatine Kinase MB Relative Index 1.5 0.00-2.50 [facility] Vital Signs Date Time Vital Sign Value Performing Clinician Facility 09-12-2023 17:45-0400 Body height 170.2 cm Brenda Stephen APRN - JONELLE Work Phone: [facility] 09-12-2023 17:45-0400 Body mass index (BMI) [Ratio] 28.82 kg/m2 Brenda Stephen S IRON WORKER - CNM Work Phone: [facility] [employer] 09-12-2023 17:45-0400 Body temperature 98.29 [degF] Brenda Cardosotig S IRON WORKER - CNM Work Phone: [facility] [employer] 09-12-2023 17:45-0400 Body weight 83.46 kg Brenda Stephen S IRON WORKER - CNM Work Phone: [facility] [employer] 09-12-2023 17:45-0400 Diastolic blood pressure 60 mm[Hg] Brenda Stephen S IRON WORKER - CNM Work Phone: [facility] [employer] 09-12-2023 17:45-0400 Heart rate 75 /min Brenda Stephen S IRON WORKER - CNM Work Phone: [facility] [employer] 09-12-2023 17:45-0400 Respiratory rate 16 /min Brenda Stephen S IRON WORKER - CNM Work Phone: [facility] 09-12-2023 17:45-0400 SaO2% (BldA) [Mass fraction] 98 % Brenda Stephen S IRON WORKER - CNM Work Phone: [facility] [employer] 09-12-2023 17:45-0400 Systolic blood pressure 110 mm[Hg] Brenda Stephen S IRON WORKER - CNM Work Phone: [facility] [employer] 08-24-2023 20:05-0400 Body temperature 98.1 [degF] Jagdeep D'Abreau DO Work Phone: [facility] [employer] 08-24-2023 20:05-0400 Diastolic blood pressure 63 mm[Hg] Jagdeep D'Abreau DO Work Phone: [facility] [employer] 08-24-2023 20:05-0400 Heart rate 95 /min Jagdeep D'Abreau DO Work Phone: [facility] 08-24-2023 20:05-0400 Respiratory rate 16 /min Jagdeep Callahaneau DO Work Phone: [facility] [employer] 08-24-2023 20:05-0400 SaO2% (BldA) [Mass fraction] 98 % Jagdeep Callahaneau DO Work Phone: [facility] 08-24-2023 20:05-0400 Systolic blood pressure 131 mm[Hg] Jagdeep Callahaneau DO Work Phone: [facility] 08-03-2022 06:56-0400 Body temperature 99 [degF] Samara Paulino MD Work Phone: [facility] 08-03-2022 06:56-0400 Diastolic blood pressure 75 mm[Hg] Samara Paulino MD Work Phone: [facility] 08-03-2022 06:56-0400 Heart rate 129 /min Samara Paulino MD Work Phone: [facility] 08-03-2022 06:56-0400 Respiratory rate 22 /min Samara Paulino MD Work Phone: [facility] 08-03-2022 06:56-0400 SaO2% (BldA) [Mass fraction] 100 % Samara Paulino MD Work Phone: [facility] 08-03-2022 06:56-0400 Systolic blood pressure 131 mm[Hg] Samara Paulino MD Work Phone: [facility] [employer] 07-27-2022 18:47-0400 Body height 175.26 cm Mariposa Duncan CNP Work Phone: [facility] Work Phone: 07-27-2022 18:47-0400 Body mass index (BMI) [Ratio] 22 kg/m2 Mariposa Duncan CNP Work Phone: [facility] Work Phone: 07-27-2022 18:47-0400 Body surface area Derived from formula 1.8 m2 Mariposa Duncan CNP Work Phone: [facility] Work Phone: 07-27-2022 18:47-0400 Body temperature 96.3 [degF] Mariposa Duncan CNP Work Phone: [facility] Work Phone: 07-27-2022 18:47-0400 Body weight 67.72 kg Mariposa Duncan CNP Work Phone: [facility] Work Phone: 07-27-2022 18:47-0400 Diastolic blood pressure 63 mm[Hg] Mariposa Duncan CNP Work Phone: [facility] Work Phone: 07-27-2022 18:47-0400 Heart rate 68 /min Mariposa Duncan CNP Work Phone: [facility] Work Phone: 07-27-2022 18:47-0400 SaO2% (BldA) [Mass fraction] 97 % Mariposa Duncan CNP Work Phone: [facility] Work Phone: 07-27-2022 18:47-0400 Systolic blood pressure 117 mm[Hg] Mariposa Duncan CNP Work Phone: [facility] Work Phone: 04-24-2022 13:05-0500 Diastolic blood pressure 60 mm[Hg] Kia Sharma APRN - [employer] Work Phone: [facility] [employer] 04-24-2022 13:05-0500 Systolic blood pressure 122 mm[Hg] Kia Sharma APRN - [employer] Work Phone: [facility] [employer] 04-24-2022 10:44-0500 Body mass index (BMI) [Ratio] 24.78 kg/m2 Kia Leo CNP Work Phone: [facility] [employer] 04-24-2022 10:44-0500 Body temperature 98.4 [degF] Kia Leo [employer] Work Phone: [facility] [employer] 04-24-2022 10:44-0500 Body weight 73.94 kg Kia Leo [employer] Work Phone: [facility] [employer] 04-24-2022 10:44-0500 Heart rate 79 /min Kia Leo [employer] Work Phone: [facility] [employer] 04-24-2022 10:44-0500 Respiratory rate 20 /min Kia Leo [employer] Work Phone: [facility] [employer] 04-24-2022 10:44-0500 SaO2% (BldA) [Mass fraction] 100 % Kia Leo [employer] Work Phone: [facility] [employer] 03-04-2022 14:15-0500 Diastolic blood pressure 78 mm[Hg] Geoff Miller MD Work Phone: [facility] [employer] 03-04-2022 14:15-0500 Heart rate 74 /min Geoff Miller MD Work Phone: [facility] [employer] 03-04-2022 14:15-0500 Respiratory rate 16 /min Geoff Miller MD Work Phone: [facility] [employer] 03-04-2022 14:15-0500 SaO2% (BldA) [Mass fraction] 100 % Geoff Miller MD Work Phone: [facility] [employer] 03-04-2022 14:15-0500 Systolic blood pressure 131 mm[Hg] Geoff Miller MD Work Phone: [facility] [employer] 03-04-2022 13:30-0500 Body temperature 97.2 [degF] Geoff Miller MD Work Phone: [facility] [employer] 03-04-2022 11:15-0500 Body height 172.7 cm Geoff Miller MD Work Phone: [facility] 03-04-2022 11:15-0500 Body mass index (BMI) [Ratio] 24.94 kg/m2 Geoff Miller MD Work Phone: [facility] [employer] 03-04-2022 11:15-0500 Body weight 74.39 kg Geoff Miller MD Work Phone: [facility] [employer] 03-01-2022 08:00-0500 Body mass index (BMI) [Ratio] 24.94 kg/m2 Nicholas Denton MD Work Phone: [facility] 03-01-2022 08:00-0500 Body temperature 98.2 [degF] Nicholas Denton MD Work Phone: [facility] 03-01-2022 08:00-0500 Body weight 74.39 kg Nicholas Denton MD Work Phone: [facility] 03-01-2022 08:00-0500 Diastolic blood pressure 61 mm[Hg] Nicholas Denton MD Work Phone: [facility] [employer] 03-01-2022 08:00-0500 Heart rate 89 /min Nicholas Denton MD Work Phone: [facility] 03-01-2022 08:00-0500 Respiratory rate 20 /min Nicholas Denton MD Work Phone: [facility] [employer] 03-01-2022 08:00-0500 SaO2% (BldA) [Mass fraction] 99 % Nicholas Denton MD Work Phone: [facility] [employer] 03-01-2022 08:00-0500 Systolic blood pressure 138 mm[Hg] Nicholas Denton MD Work Phone: [facility] [employer] 10-29-2021 07:30-0400 Body temperature 96.6 [degF] PHYSICIAN [facility] 10-29-2021 07:30-0400 Diastolic blood pressure 70 mm[Hg] PHYSICIAN NO [facility] 10-29-2021 07:30-0400 Heart rate 84 /min PHYSICIAN NO [facility] 10-29-2021 07:30-0400 Respiratory rate 18 /min PHYSICIAN NO [facility] 10-29-2021 07:30-0400 SaO2% (BldA) [Mass fraction] 97 % PHYSICIAN NO [facility] 10-29-2021 07:30-0400 Systolic blood pressure 110 mm[Hg] PHYSICIAN NO [facility] 10-27-2021 14:15-0400 Body height 172.72 cm PHYSICIAN NO [facility] 10-26-2021 20:08-0400 Body weight 58.96 kg PHYSICIAN NO [facility] 08-17-2021 16:45-0400 Body height 175.26 cm Kia Sharma CNP Work Phone: [facility] Work Phone: 08-17-2021 16:45-0400 Body mass index (BMI) [Ratio] 20 kg/m2 Kia Sharma [employer] Work Phone: [facility] Work Phone: 08-17-2021 16:45-0400 Body surface area Derived from formula 1.75 m2 Kia Sharma CNP Work Phone: [facility] Work Phone: 08-17-2021 16:45-0400 Body surface area Derived from formula 1.7 m2 Mariposa Duncan [employer] Work Phone: [facility] Work Phone: 08-17-2021 16:45-0400 Body temperature 96.7 [degF] Kia Sharma CNP Work Phone: [facility] Work Phone: 08-17-2021 16:45-0400 Body weight 61.33 kg Kia Sharma CNP Work Phone: [facility] Work Phone: 08-17-2021 16:45-0400 Diastolic blood pressure 64 mm[Hg] Kia Sharma CNP Work Phone: [facility] Work Phone: 08-17-2021 16:45-0400 Heart rate 67 /min Kia Sharma CNP Work Phone: [facility] Work Phone: 08-17-2021 16:45-0400 SaO2% (BldA) [Mass fraction] 99 % Kia Sharma CNP Work Phone: [facility] Work Phone: 08-17-2021 16:45-0400 Systolic blood pressure 110 mm[Hg] Kia Sharma CNP Work Phone: [facility] Work Phone: 07-15-2021 15:57-0400 Body height 175.26 cm Kia Sharma CNP Work Phone: [facility] Work Phone: 07-15-2021 15:57-0400 Body mass index (BMI) [Ratio] 19.8 kg/m2 Kia Sharma CNP Work Phone: [facility] Work Phone: 07-15-2021 15:57-0400 Body surface area Derived from formula 1.74 m2 Kia Sharma CNP Work Phone: [facility] Work Phone: 07-15-2021 15:57-0400 Body temperature 98.1 [degF] Kia Sharma [employer] Work Phone: [facility] Work Phone: 07-15-2021 15:57-0400 Body weight 60.78 kg Kia Sharma CNP Work Phone: [facility] Work Phone: 07-15-2021 15:57-0400 Diastolic blood pressure 62 mm[Hg] Kia Sharma [employer] Work Phone: [facility] Work Phone: 07-15-2021 15:57-0400 Heart rate 68 /min Kia Sharma [employer] Work Phone: [facility] Work Phone: 07-15-2021 15:57-0400 Heart Rate Rhythm 1 1 Kia Sharma [employer] Work Phone: [facility] Work Phone: 07-15-2021 15:57-0400 SaO2% (BldA) [Mass fraction] 98 % Kia Sharma [employer] Work Phone: [facility] Work Phone: 07-15-2021 15:57-0400 Systolic blood pressure 108 mm[Hg] Kia Sharma [employer] Work Phone: [facility] Work Phone: 07-01-2021 17:32-0400 Body height 175.26 cm Kia Sharma [employer] Work Phone: [facility] Work Phone: 07-01-2021 17:32-0400 Body mass index (BMI) [Ratio] 20.3 kg/m2 Kia Sharma [employer] Work Phone: [facility] Work Phone: 07-01-2021 17:32-0400 Body surface area Derived from formula 1.76 m2 Kia Sharma CNP Work Phone: [facility] Work Phone: 07-01-2021 17:32-0400 Body temperature 97.5 [degF] Kia Sharma CNP Work Phone: [facility] Work Phone: 07-01-2021 17:32-0400 Body weight 62.32 kg Kia Sharma CNP Work Phone: [facility] Work Phone: 07-01-2021 17:32-0400 Diastolic blood pressure 58 mm[Hg] Kia Sharma CNP Work Phone: [facility] Work Phone: 07-01-2021 17:32-0400 Heart rate 775 /min Kia Sharma CNP Work Phone: [facility] Work Phone: 07-01-2021 17:32-0400 Heart Rate Rhythm 1 1 Kia Sharma CNP Work Phone: [facility] Work Phone: 07-01-2021 17:32-0400 SaO2% (BldA) [Mass fraction] 97 % Kia Sharma CNP Work Phone: [facility] Work Phone: 07-01-2021 17:32-0400 Systolic blood pressure 116 mm[Hg] Kia Sharma CNP Work Phone: [facility] Work Phone: 05-28-2021 18:41-0400 Body height 175.26 cm Kia Sharma CNP Work Phone: [facility] Work Phone: 05-28-2021 18:41-0400 Body mass index (BMI) [Ratio] 19.6 kg/m2 Kia Sharma CNP Work Phone: [facility] Work Phone: 05-28-2021 18:41-0400 Body surface area Derived from formula 1.74 m2 Kia Sharma CNP Work Phone: [facility] Work Phone: 05-28-2021 18:41-0400 Body temperature 97.7 [degF] Kia Sharma [employer] Work Phone: [facility] Work Phone: 05-28-2021 18:41-0400 Body weight 60.33 kg Kia Sharma [employer] Work Phone: [facility] Work Phone: 05-28-2021 18:41-0400 Diastolic blood pressure 76 mm[Hg] Kia Sharma [employer] Work Phone: [facility] Work Phone: 05-28-2021 18:41-0400 Heart rate 83 /min Kia Sharma [employer] Work Phone: [facility] Work Phone: 05-28-2021 18:41-0400 SaO2% (BldA) [Mass fraction] 98 % Kia Sharma [employer] Work Phone: [facility] Work Phone: 05-28-2021 18:41-0400 Systolic blood pressure 122 mm[Hg] Kia Sharma [employer] Work Phone: [facility] Work Phone: 10-14-2020 13:00-0400 Diastolic blood pressure 68 mm[Hg] Anthony Galloway MD Work Phone: [employer] Work Phone: 10-14-2020 13:00-0400 Heart rate 60 /min Anthony Galloway MD Work Phone: [employer] Work Phone: 10-14-2020 13:00-0400 Respiratory rate 16 /min Anthony Galloway MD Work Phone: [employer] Work Phone: 10-14-2020 13:00-0400 SaO2% (BldA) [Mass fraction] 99 % Anthony Galloway MD Work Phone: [employer] Work Phone: 10-14-2020 13:00-0400 Systolic blood pressure 114 mm[Hg] Anthony Galloway MD Work Phone: [employer] Work Phone: 10-14-2020 12:25-0400 Body temperature 97.39 [degF] Anthony Galloway MD Work Phone: [employer] Work Phone: 10-14-2020 09:35-0400 Body height 172.7 cm Anthony Galloway MD Work Phone: [employer] Work Phone: 10-14-2020 09:35-0400 Body mass index (BMI) [Ratio] 20.13 kg/m2 Anthony Galloway MD Work Phone: [employer] Work Phone: 10-14-2020 09:35-0400 Body weight 60.06 kg Anthony Galloway MD Work Phone: [employer] Work Phone: 05-27-2020 22:19-0400 Body Temperature 97.5 [degF] [employer] Work Phone: 05-27-2020 22:19-0400 BP Diastolic 79 mm[Hg] [employer] Work Phone: 05-27-2020 22:19-0400 BP Systolic 133 mm[Hg] [employer] Work Phone: 05-27-2020 22:19-0400 Pulse (Heart Rate) 94 /min [employer] Work Phone: 05-27-2020 22:19-0400 Pulse Oximetry 98 % [facility] Work Phone: 05-27-2020 22:19-0400 Respiratory Rate 16 /min [facility] Work Phone: 04-03-2020 16:21-0500 BMI (Body Mass Index) 21.9 kg/m2 [facility] Work Phone: 04-03-2020 16:21-0500 Body Temperature 97.9 [degF] [facility] Work Phone: 04-03-2020 16:21-0500 Body weight 67.13 kg [facility] Work Phone: 04-03-2020 16:21-0500 BP Diastolic 82 mm[Hg] [facility] Work Phone: 04-03-2020 16:21-0500 BP Systolic 138 mm[Hg] [facility] Work Phone: 04-03-2020 16:21-0500 BSA (Body Surface Area) 1.82 m2 [facility] Work Phone: 04-03-2020 16:21-0500 Height 175.26 cm [facility] Work Phone: 04-03-2020 16:21-0500 Pulse (Heart Rate) 77 /min [facility] Work Phone: 04-03-2020 16:21-0500 Pulse Oximetry 96 % [facility] Work Phone: 04-03-2020 16:21-0500 Respiratory Rate 18 /min [facility] Work Phone: 04-03-2020 16:21-0500 SaO2% (BldA) [Mass fraction] 96 % Kia Sharma CNP Work Phone: [facility] Work Phone: 03-20-2020 11:57-0500 BMI (Body Mass Index) 21.4 kg/m2 Kia Sharma [facility] Work Phone: 03-20-2020 11:57-0500 Body weight 65.77 kg Kia Sharma [facility] Work Phone: 03-20-2020 11:57-0500 BSA (Body Surface Area) 1.8 m2 Kiafranco Sharma [facility] Work Phone: 03-20-2020 11:57-0500 Height 175.26 cm Kia Sharma [facility] Work Phone: 02-25-2020 21:28-0500 BMI (Body Mass Index) 23.22 kg/m2 [facility] [place] 02-25-2020 21:28-0500 Body Temperature 98.2 [degF] [place] 02-25-2020 21:28-0500 Body weight 70.31 kg [facility] [place] 02-25-2020 21:28-0500 BP Diastolic 76 mm[Hg] [facility] [place] 02-25-2020 21:28-0500 BP Systolic 144 mm[Hg] [facility] [place] 02-25-2020 21:28-0500 Height 174 cm [facility] 02-25-2020 21:28-0500 Pulse (Heart Rate) 73 /min [facility] [place] 02-25-2020 21:28-0500 Pulse Oximetry 100 % [place] 02-25-2020 21:28-0500 Respiratory Rate 16 /min [place] 02-06-2020 17:44-0500 Respiratory Rate 16 /min [facility] [place] 02-06-2020 17:19-0500 BMI (Body Mass Index) 23.57 kg/m2 [facility] 02-06-2020 17:190500 Body Temperature 99.61 [degF] [facility] 02-06-2020 17:19-0500 Body weight 70.31 kg [facility] 02-06-2020 17:19-0500 BP Diastolic 60 mm[Hg] [facility] 02-06-2020 17:19-0500 BP Systolic 120 mm[Hg] [facility] 02-06-2020 17:19-0500 Height 172.7 cm [facility] 02-06-2020 17:19-0500 Pulse (Heart Rate) 81 /min [facility] 02-06-2020 17:19-0500 Pulse Oximetry 98 % [facility] 12-24-2019 12:27-0400 BMI (Body Mass Index) 23.42 kg/m2 [facility] 12-24-2019 12:27-0400 Body Temperature 97.9 [degF] [facility] 12-24-2019 12:27-0400 Body weight 69.85 kg [facility] 12-24-2019 12:27-0400 BP Diastolic 64 mm[Hg] [facility] 12-24-2019 12:27-0400 BP Systolic 122 mm[Hg] [facility] 12-24-2019 12:27-0400 Pulse (Heart Rate) 68 /min [facility] 12-24-2019 12:27-0400 Pulse Oximetry 99 % [facility] [place] 12-24-2019 12:27-0400 Respiratory Rate 16 /min [place] NEGATED: Highlighted row BMI (Body Mass Index) [facility] NEGATED: Highlighted row BMI (Body Mass Index) [facility] NEGATED: Highlighted row BMI (Body Mass Index) [facility] NEGATED: Highlighted row Body Temperature [facility] NEGATED: Highlighted row Body Temperature [facility] NEGATED: Highlighted row Body Temperature [facility] NEGATED: Highlighted row Body weight [facility] NEGATED: Highlighted row Body weight [facility] NEGATED: Highlighted row Body weight [facility] NEGATED: Highlighted row BP Diastolic [facility] NEGATED: Highlighted row BP Diastolic [facility] NEGATED: Highlighted row BP Diastolic [facility] NEGATED: Highlighted row BP Systolic [facility] NEGATED: Highlighted row BP Systolic [facility] NEGATED: Highlighted row BP Systolic [facility] NEGATED: Highlighted row Height [facility] NEGATED: Highlighted row Height [facility] NEGATED: Highlighted row Height [facility] NEGATED: Highlighted row Pulse (Heart Rate) [facility] NEGATED: Highlighted row Pulse (Heart Rate) [facility] NEGATED: Highlighted row Pulse (Heart Rate) [facility] NEGATED: Highlighted row Pulse Oximetry [facility] NEGATED: Highlighted row Pulse Oximetry [facility] NEGATED: Highlighted row Pulse Oximetry [facility] NEGATED: Highlighted row Respiratory Rate [facility] [facility] NEGATED: Highlighted row Respiratory Rate [facility] NEGATED: Highlighted row Respiratory Rate [facility] Encounters Encounter Date Encounter Type Care Provider Facility Start: 10-02-2023 End: 10-02-2023 ambulatory YURIY SABILLON Not Available Start: 09-29-2023 End: 09-29-2023 ambulatory JAGDEEP MANRIQUE [facility] Start: 09-18-2023 End: 09-18-2023 ambulatory GENESIS OJEDA Not Available Start: 09-12-2023 End: 09-12-2023 [facility]: 09-12-2023 End: 09-12-2023 Subsequent hospital visit by physician Brenda Stephen S IRON WORKER - CNM Work Phone: [facility] Labor and Delivery Start: 09-04-2023 End: 09-04-2023 ambulatory VIPIN MICHAEL [facility] Start: 09-04-2023 End: 09-04-2023 ambulatory YURIY DALJIT Not Available Start: 09-02-2023 End: 09-03-2023 ambulatory CLINTON TRIVEDI [facility] Start: 08-24-2023 End: 08-24-2023 ambulatory [facility] Start: 08-24-2023 End: 08-24-2023 [facility] Labor and Delivery Start: 08-03-2023 End: 08-03-2023 ambulatory GENESIS OJEDA Not Available Start: 07-06-2023 End: 07-06-2023 ambulatory YURIY DALJIT Not Available Start: 06-30-2023 End: 06-30-2023 Emergency department patient visit [facility] Start: 06-20-2023 End: 06-20-2023 ambulatory YURIY DALJIT Not Available Start: 05-23-2023 End: 05-23-2023 ambulatory YURIY DALJIT Not Available Start: 05-18-2023 End: 05-18-2023 Emergency department patient visit [facility] Start: 05-01-2023 End: 05-01-2023 ambulatory YURIY JC [facility] Start: 05-01-2023 End: 05-01-2023 Subsequent hospital visit by physician Kia Sharma S IRON WORKER - TERRAZZO FINISHER HELPER Work Phone: [facility] Start: 04-27-2023 End: 04-27-2023 ambulatory YURIY DALJIT Not Available Start: 08-03-2022 End: 08-03-2022 Emergency department patient visit Samara Paulino MD Work Phone: [facility] ED Comment on above: Flank pain (Primary Dx); Urinary tract infection without hematuria, site unspecified Start: 07-27-2022 End: 07-27-2022 FQHC visit, estab pt Mariposa Duncan TERRAZZO FINISHER HELPER Work Phone: [facility] Work Phone: Start: 06-03-2022 End: 06-05-2022 Subsequent hospital visit by physician Kulwinder Das Radiologist [facility] Ultrasound Comment on above: Abscess of female br east Start: 04-24-2022 End: 04-24-2022 Emergency department patient visit Kia Sharma APRN - TERRAZZO FINISHER HELPER Work Phone: [facility] ED Comment on above: Nausea vomiting and diarrhea (Primary Dx) Start: 03-15-2022 End: 03-15-[address] YURIY SABILLON Facility: Start: 03-04-2022 End: 03-04-2022 Subsequent hospital visit by physician Geoff Miller MD Work Phone: [facility] OR Comment on above: Abscess of right lynette ast (Primary Dx) Start: 03-01-2022 End: 03-01-2022 Emergency department patient visit Nicholas Denton MD Work Phone: [facility] ED Comment on above: Cellulitis of right breast (Primary Dx) Start: 10-26-2021 End: 10-29-2021 Evaluation and management of inpatient PHYSICIAN NO FAMILY Facility:[facility] Start: 10-26-2021 End: 10-29-2021 Evaluation and management of inpatient PHYSICIAN NO [facility] [place] [address] Start: 08-17-2021 End: 08-17-2021 FQHC visit, estab pt Halima Argueta [facility] Work Phone: [facility] Work Phone: Start: 08-17-2021 End: 08-17-2021 FQHC visit, estab pt Kia Sharma TERRAZZ[employer] FINISHER HELPER Work Phone: [facility] Work Phone: Start: 07-15-2021 End: 07-15-2021 FQHC visit, estab pt Halima Argueta [facility] Work Phone: [facility] Work Phone: Start: 07-15-2021 End: 07-15-2021 FQHC visit, estab pt Kia Sharma TERRAZZO FINISHER HELPER Work Phone: [facility] Work Phone: Start: 07-01-2021 End: 07-01-2021 FQHC visit, estab pt Kia Sharma [employer]RA[employer] FINISHER HELPER Work Phone: [facility] Work Phone: Start: 05-29-2021 End: 05-29-2021 ambulatory KIA SHARMA [facility] Start: 05-28-2021 End: 05-28-2021 Subsequent hospital visit by physician AGNES CHEN [place] [facility] Start: 05-28-2021 End: 05-28-2021 FQHC visit, estab pt Kia Sharma TERRA[employer] FINISHER HELPER Work Phone: [facility] Work Phone: Start: 03-25-2021 End: 03-25-2021 Subsequent hospital visit by physician [facility] Comment on above: Vaginal discharge Start: 03-10-2021 End: 03-10-2021 Subsequent hospital visit by physician [facility] Comment on above: Irregular menstrual cycle Start: 10-14-2020 End: 10-14-2020 Subsequent hospital visit by physician Anthony Galloway MD Work Phone: [facility] OR Comment on above: 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) Start: 10-09-2020 End: 10-13-2020 Patient encounter status [facility] Schedule [facility] PRE ADMIT Start: 10-09-2020 End: 10-13-2020 Subsequent hospital visit by physician Kulwinder Renee19 Pat Screening Schedule [facility] PRE ADMIT Comment on above: Preop testing Start: 09-25-2020 End: 09-25-2020 Patient encounter status [facility] Schedule [facility] PRE ADMIT Start: 09-25-2020 End: 09-25-2020 Subsequent hospital visit by physician Kulwinder Renee19 Pat Screening Schedule [facility] PRE ADMIT Comment on above: Preop testing (Prima ry Dx) Start: 08-19-2020 End: 08-19-2020 Subsequent hospital visit by physician [facility] Comment on above: 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 Start: 05-27-2020 End: 05-27-2020 Emergency department patient visit Sid Norris Work Phone: [facility] ED Comment on above: Dental infection (Pr imary Dx) Start: 04-03-2020 End: 04-03-2020 Established patient Kia Sharma Work Phone: [facility] Work Phone: Start: 04-03-2020 End: 04-03-2020 General Kia Sharma [facility] Work Phone: [facility] Work Phone: Start: 04-03-2020 End: 04-03-2020 General Halima Argueta [facility] Work Phone: [facility] Work Phone: Start: 04-02-2020 End: 04-02-2020 Subsequent hospital visit by physician NELL[facility] Comment on above: Women's annual routi ne gynecological examination Start: 03-20-2020 End: 03-20-2020 General Halima Argueta Work Phone: [facility] Work Phone: Start: 03-20-2020 End: 03-20-2020 Telemedicine consultation with patient Kia Sharma Work Phone: [facility] Work Phone: Start: 02-25-2020 End: 02-25-2020 Emergency department patient visit Sid Norris Work Phone: [facility] ED Comment on above: Bacterial vaginosis (Primary Dx); Vaginal bleeding Start: 02-06-2020 End: 02-06-2020 Emergency department patient visit [facility] ED Comment on above: Dental abscess (Prim rachele Dx); Dental caries Start: 12-24-2019 End: 12-24-2019 Emergency department patient visit [facility] ED Comment on above: Dental infection (Pr imary Dx) Start: 02-13-2018 End: 02-15-2018 Evaluation and management of inpatient FEI LOO [facility] Start: 02-20-2016 End: 02-23-2016 Evaluation and management of inpatient [facility] Start: 05-12-2015 End: 05-15-2015 Evaluation and management of inpatient [facility] Start: 02-11-2014 End: 02-14-2014 Evaluation and management of inpatient [facility] Start: 04-28-2007 End: 05-28-2007 Discharged Recurring [facility] Start: 02-27-2007 End: 03-29-2007 [facility] Start: 01-27-2007 End: 02-26-2007 [facility] Start: 11-27-2006 End: 12-27-2006 [facility]charged [facility] Start: 09-27-2006 End: 10-27-2006 Discharged [facility] Start: 08-27-2006 End: 09-26-2006 [facility] Start: 07-28-2006 End: 09-26-2006 [facility] Start: 06-27-2006 End: 07-27-2006 Discharged Recurring [facility] Start: 05-28-2006 End: 06-26-2006 [facility]charged [facility] Start: 04-27-2006 End: 05-27-2006 [facility] Start: 03-30-2006 End: 04-26-2006 [facility] Start: 02-27-2006 End: 03-29-2006 [facility]charged [facility] Start: 01-27-2006 End: 02-26-2006 Discharged [facility] Start: 12-28-2005 End: 01-26-2006 [facility]charged [facility] Start: 11-27-2005 End: 12-27-2005 Discharged Recurring [facility] Start: 10-28-2005 End: 11-26-2005 Discharged [facility] Start: 09-27-2005 End: 11-26-2005 Discharged Recurring [facility] Start: 09-27-2005 End: 10-27-2005 Discharged Recurring [facility] Start: 08-27-2005 End: 09-26-2005 Discharged Recurring [facility] Start: 06-27-2005 End: 07-27-2005 [facility]charged [facility] Start: 04-27-2005 End: 05-27-2005 [facility]charged [facility] Start: 03-30-2005 End: 04-26-2005 Discharged [facility] Start: 02-27-2005 End: 03-29-2005 Discharged Recurring [facility] Start: 01-27-2005 End: 02-26-2005 Discharged Recurring [facility] Start: 12-28-2004 [facility] Start: 11-27-2004 End: 12-27-2004 Discharged Recurring [facility] Start: 11-27-2004 End: 12-27-2004 [facility] Start: 11-27-2004 [facility] Start: 10-28-2004 End: 11-26-2004 Discharged Recurring [facility] Start: 10-28-2004 End: 11-26-2004 [facility]charged [facility] Start: 09-27-2004 End: 10-27-2004 Discharged [facility] Start: 09-27-2004 End: 10-27-2004 Discharged Recurring [facility] Start: 09-02-2004 End: 09-26-2004 Discharged [facility] Start: 09-02-2004 End: 09-26-2004 [facility]charged [facility] Start: 05-17-2000 End: 05-27-2000 [facility]charged [facility] Procedures Date Procedure Procedure Detail Performing Clinician Start: 09-12-2023 Urnls dip stick/tabl et rgnt auto w/o microscopy Brendamatilde Stephen S IRON WORKER - CN Work Phone: Start: 09-02-2023 H/O: section History of delivery affecting Brenda Stephen S IRON WORKER - CN Work Phone: Start: 08-24-2023 Urinalysis microscop ic only Jagdeep Manrique DO Work Phone: Start: 08-24-2023 Urnls dip stick/tabl et rgnt auto w/o microscopy Jagdeep Callahaneau DO Work Phone: Start: 05-01-2023 Blood typing [...] pressure < 80 mm hg Mariposa Duncan [employer]RAZZ[employer] FINISHER HELPER Work Phone: Start: 07-27-2022 Most recent systolic blood pressure <130 mm hg Mariposa Duncan [employer]RAZZ[employer] FINISHER HELPER Work Phone: Start: 07-27-2022 Urine test visual color cmprsn meths Mariposa Duncan [employer]RA[employer] FINISHER HELPER Work Phone: Start: 06-03-2022 Diagnostic mammograp hy computer-aided detcj bi Geoff Miller MD Work Phone: Start: 06-03-2022 Us breast uni real t jama with image limited Geoff Miller MD Work Phone: Start: 04-24-2022 Urinalysis microscop ic only Christopherpricila Canoyessica MIRZA-C Work Phone: Start: 04-24-2022 Urnls dip stick/tabl et rgnt auto w/o microscopy Christopher Stephenson PA-C Work Phone: Start: 04-24-2022 Ct abdomen & pelvis w/contrast material Christopher MIRZA-C Work Phone: Start: 04-24-2022 Comprehensive metabo lic panel Christopher Sachin MIRZA-C Work Phone: Start: 03-04-2022 Urine test visual color cmprsn carlottas Peterson Paco Thong S IRON WORKER - TERRAZZO FINISHER HELPER Work Phone: Start: 08-17-2021 Most recent diastoli c blood pressure < 80 mm hg Kia Sharma TERRA[employer] FINISHER HELPER Work Phone: Start: 08-17-2021 Most recent systolic blood pressure <130 mm hg Kia Sharma [employer]RAZZ[employer] FINISHER HELPER Work Phone: Start: 08-17-2021 Psychotherapy w/hussein ent 30 minutes Halima Argueta LPCC-S Work Phone: Start: 07-15-2021 Most recent diastoli c blood pressure < 80 mm hg Kia Sharma [employer]RA[employer] FINISHER HELPER Work Phone: Start: 07-15-2021 Most recent systolic blood pressure <130 mm hg Kia Sharma [employer]RA[employer] FINISHER HELPER Work Phone: Start: 07-15-2021 Psychotherapy w/hussein ent 30 minutes Halima Argueta LPCC-S Work Phone: Start: 07-01-2021 Most recent diastoli c blood pressure < 80 mm hg Kia Sharma TERRA[employer] FINISHER HELPER Work Phone: Start: 07-01-2021 Most recent systolic blood pressure <130 mm hg Kia Sharma [employer] FINISHER HELPER Work Phone: Start: 05-28-2021 Antibody hiv-1&hiv-2 single result Kia Sharma [facility] Work Phone: Start: 05-28-2021 Most recent diastoli c blood pressure < 80 mm hg Kia Sharma [facility] Work Phone: Start: 05-28-2021 Most recent systolic blood pressure <130 mm hg Kia Sharma [facility] Work Phone: Start: 05-28-2021 Pt-focused hlth risk assmt score doc stnd instrm Kia Sharma [facility] Work Phone: Start: 05-28-2021 Viral screening Visit For: Scr eening Exam For Herpes Kia Sharma [facility] Work Phone: Start: 03-10-2021 End: 03-10-2021 Gonadotropin follicle stimulating hormone Anthony Galloway MD Work Phone: Start: 10-14-2020 Urine test visual color cmprsn meths Anthony Galloway MD Work Phone: Start: 10-09-2020 COVID-19 Sabas siddiqi MD Work Phone: Start: 04-02-2020 Microscopic observat ion [Identifier] in Cervix by Cyto stain Start: 03-20-2020 delivery only Kia Sharma Start: 03-20-2020 section Kia Sharma [facility] Work Phone: Start: 03-20-2020 Psychotherapy w/hussein ent 30 minutes Halima Argueta Work Phone: Start: 02-25-2020 Smr prim src wet boby nt nfct agt Sid A Jr Work Phone: Start: 02-25-2020 Urinalysis microscop ic only Sid A Jr Work Phone: Start: 02-25-2020 Urine test visual color cmprsn meths Sid A Jr Work Phone: Start: 02-25-2020 Urnls dip stick/tabl et rgnt auto w/o microscopy Sid A Jr Work Phone: Start: 02-15-2018 DISCHARGE PATIENT JUSTINE LOO Start: 02-13-2018 IP CONSULT TO HISTOR Y AND PHYSICAL FEI LOO Start: 02-13-2018 DIET GENERAL FEI AMIN SOLUTION ANALYST Start: 02-13-2018 FULL CODE FEI AMIN SOLUTION ANALYST Start: 02-13-2018 URINE DRUG SCREEN JUSTINE LOO Start: 02-13-2018 Urine test visual color cmprsn meths FEI AMINPTA Start: 02-13-2018 VITAL SIGNS FEI AMIN SOLUTION ANALYST Start: 02-13-2018 PATIENT STATUS (DIRECT) FEI LOO SARS Antigen (LFIA) PHYSICIA N NO FAMILY Plan of Treatment Date Care Activity Detail Author Start: 2053 Respiratory Syncytia l Virus (RSV) or age 60 yrs+ (1 - 1-dose 60+ series) Respiratory Syncytial Virus (RSV) or age 60 yrs+ (1 - 1-dose 60+ series) [facility] Start: 03-21-2027 DTaP/Tdap/Td vaccine (2 - Td or Tdap) DTaP/Tdap/Td vaccine (2 - Td or Tdap) [facility] [employer] Start: 03-21-2027 DTaP/Tdap/Td vaccine (2 - Td) DTaP/Tdap/Td vaccine (2 - Td) [facility] [place] Start: 04-02-2025 Screening for malign ant neoplasm of cervix [facility] [place] Start: 10-29-2023 Respiratory Syncytia l Virus (RSV) or age 60 yrs+ (1 - Risk 1-dose series) Respiratory Syncytial Virus (RSV) or age 60 yrs+ (1 - Risk 1-dose series) [facility] [employer] Start: 09-28-2023 Influenza vaccination B ON [employer] Start: 08-25-2023 Tdap Vaccine during Tdap Vaccine during [facility] [place] Start: 04-02-2023 Screening for malign ant neoplasm of cervix [facility] [employer] Start: 09-27-2022 Influenza vaccination B ON [employer] Start: 08-25-2022 FQHC visit, estab pt Medical E stablished Patient [facility] Work Phone: Start: 07-27-2022 End: 07-27-2022 Patient education based on identified need [facility] Start: 07-27-2022 CBC W Auto Different ial panel - Blood [facility] Start: 04-25-2022 End: 04-25-2022 Patient encounter procedure 04/25/2022 Appointment Radiology Radiologist, [facility] Start: 03-04-2022 End: 03-04-2022 Incision & drainage abscess simple/single BREAST INCISION AND DRAINAGE Abscess of right breast 03/04/2022 12:36 PM EST [facility] Start: 10-29-2021 [facility] Work Phone: Start: 10-28-2021 Influenza vaccination Flu vacc ine (Season Ended) [facility] Start: 10-26-2021 Referral to Animal Bounty Hunter [facility] Work Phone: Start: 10-26-2021 Hospital admission [facility] Work Phone: Start: 09-27-2021 Influenza vaccination Flu vaccine (# 1) [facility] Start: 09-16-2021 FQHC visit, estab pt Medical E stablished Patient [facility] Work Phone: Start: 08-17-2021 FQHC visit, estab pt Medical E stablished Patient [facility] Work Phone: Start: 08-17-2021 End: 08-17-2021 Patient education based on identified need [facility] Start: 07-15-2021 FQHC visit, estab pt Medical E stablished Patient [facility] Work Phone: Start: 07-15-2021 End: 07-15-2021 Patient education based on identified need [facility] Start: 07-01-2021 End: 07-01-2021 Patient education based on identified need [facility] Start: 05-28-2021 End: 05-28-2021 Patient education based on identified need [facility] Start: 04-14-2021 End: 04-14-2021 Patient encounter procedure 04/14/2021 Office Visit Obstetrics and Gynecology Anthony Galloway MD [address] [place] [address] [facility] OBST[facility]ICS & GYNECOLOGY [facility] Start: 03-05-2021 FQHC visit, estab pt Medical E stablished Patient [facility] Work Phone: Start: 10-28-2020 Influenza vaccination [facility] Start: 10-14-2020 End: 10-14-2020 Admission to same day surgery center 10/14/2020 Surgery IP Unit Anthony Galloway MD [address] [place] [address] DILATATION AND CURETT[facility] Comment on above: DILATATION AND CURET TAGE LEEP-ENDOCERVICAL CURETTAGE Start: 10-14-2020 Subsequent hospital visit by physician 10/14/2020 Hospital Encounter IP Unit Anthony Galloway MD [address] [place], [place] [id number] [facility] Start: 10-09-2020 End: 10-09-2020 Patient encounter procedure 10/09/2020 Appointment Pre-Admission Testing [facility] PRE ADMIT Start: 09-25-2020 End: 09-25-2021 COVID-19 COVID-19 Lab Routine Preop testing Expected: 09/25/2020, Expires: 09/25/2021 [facility] Work Phone: Comment on above: Expected: 09/25/2020 , Expires: 09/25/2021 Start: 04-23-2020 End: 04-23-2020 Procedure visit 04/23/2020 Procedure visit Obstetrics and Gynecology Anthony Galloway MD [address] [place] [address] [facility] Start: 04-03-2020 End: 04-03-2020 Patient education based on identified need [facility] Start: 04-03-2020 Medical Establ ished Patient [facility] Work Phone: Start: 03-20-2020 End: 03-20-2020 Patient education based on identified need [facility] Start: 10-29-2019 Influenza vaccination Flu vaccine (# 1) [place], [place] Start: 2014 Screening for malign ant neoplasm of cervix Cervical cancer screen [place], [place] Start: 2011 Hepatitis C screening Hepatitis C sc reen [facility] Start: 2009 COVID-19 Vaccine (1) COVID-19 Vaccin e (1) [facility] Work Phone: Start: 2008 HIV screening HIV screen [facility] Start: 2005 COVID-19 Vaccine (1) COVID-19 Vaccin e (1) [facility] [employer] Phone: Start: 2005 Depression Monitoring Depression Mon [facility] Start: 2005 Depression Screen Depression Screen [facility] Start: 2004 HPV vaccine (1 - 2-d ose series) HPV vaccine (1 - 2-dose series) [place], [place] Start: 1999 Pneumococcal 0-64 ye ars Vaccine (1 - PCV) Pneumococcal 0-64 years Vaccine (1 - PCV) [facility] Start: 1999 Pneumococcal 0-64 ye ars Vaccine (1 of 1 - PPSV23) Pneumococcal 0-64 years Vaccine (1 of 1 - PPSV23) [place], [place] Start: 1999 Pneumococcal 0-64 ye ars Vaccine (1 of 2 - PCV) Pneumococcal 0-64 years Vaccine (1 of 2 - PCV) [facility] Start: 1999 Pneumococcal 0-64 ye ars Vaccine (1 of 2 - PPSV23) Pneumococcal 0-64 years Vaccine (1 of 2 - PPSV23) [facility] Start: 1998 COVID-19 Vaccine (1) COVID-19 Vaccin e (1) [facility] Start: 1994 Varicella vaccine (1 of 2 - 2-dose childhood series) Varicella vaccine (1 of 2 - 2-dose childhood series) [facility] Start: 1993 COVID-19 Vaccine (#1) COVID-19 Vacci ne (#1) [facility] Start: 1993 Hepatitis B vaccine (1 of 3 - 3-dose series) Hepatitis B vaccine (1 of 3 - 3-dose series) [facility] Start: 1993 Hepatitis C screening Hepatitis C sc reen [facility] End: 08-24-2023 Bacteria identified in Urine by Culture Urine culture Microbiology Routine One Time for 1 Occurrences starting 08/24/2023 until 08/24/2023 [facility] Comment on above: One Time for 1 Occur rences starting 08/24/2023 until 08/24/2023 End: 09-12-2023 Bacteria identified in Urine by Culture Urine culture Microbiology Routine One Time for 1 Occurrences starting 09/12/2023 until 09/12/2023 [facility] Comment on above: One Time for 1 Occur rences starting 09/12/2023 until 09/12/2023 End: 02-25-2020 C.trachomatis N.gonorrhoeae DNA C.trachomatis N.gonorrhoeae DNA Microbiology STAT One Time for 1 Occurrences starting 02/25/2020 until 02/25/2020 [facility] [place] Comment on above: One Time for 1 Occur rences starting 02/25/2020 until 02/25/2020 C.trachomatis N.gonorrhoeae DNA C.trachomatis N.gonorrhoeae DNA Microbiology STAT 02/25/2020 10:29 PM EST [place], [place] Culture, Anaerobic a nd Aerobic [facility] Work Phone: Comment on above: Release Upon Orderin g for 1 Occurrences starting 03/04/2022 End: 03-25-2021 Culture, Genital [facility] Work Phone: Comment on above: 1 Occurrences starti ng 03/25/2021 until 03/25/2021 End: 08-03-2022 Culture, Urine [facility] Work Phone: Comment on above: Once for 1 Occurrenc es starting 08/03/2022 until 08/03/2022 End: 05-01-2023 Culture, Urine [employer] Phone: Comment on above: Once for 1 Occurrenc es starting 05/01/2023 until 05/01/2023 End: 05-29-2021 Culture, Virus, Non Respiratory Culture, Virus, Non Respiratory Microbiology Routine Once for 1 Occurrences starting 05/29/2021 until 05/29/2021 [employer] Phone: Comment on above: Once for 1 Occurrenc es starting 05/29/2021 until 05/29/2021 Culture, Virus, Non Respiratory Culture, Virus, Non Respiratory Microbiology Routine 05/28/2021 11:57 PM EDT [employer] Phone: End: 04-02-2020 Cytopathology procedure, preparation of smear, genital source PAP SMEAR Lab Routine Women's annual routine gynecological examination 1 Occurrences starting 04/02/2020 until 04/02/2020 [employer] [facility]NAM Comment on above: 1 Occurrences starti ng 04/02/2020 until 04/02/2020 nonstress test nonst ress test OB Routine Daily until discontinued starting 08/25/2023 [employer] Phone: Comment on above: Daily until disconti nued starting 08/25/2023 nonstress test nonst ress test OB Routine Daily until discontinued starting 09/13/2023 [employer] Phone: Comment on above: Daily until disconti nued starting 09/13/2023 End: 05-01-2023 HIV Screen Adea Comment on above: Once for 1 Occurrenc es starting 05/01/2023 until 05/01/2023 End: 03-04-2022 INITIATE PACU OXYGEN THERAPY PROTOCOL Initiate PACU Oxygen Therapy Protocol Respiratory Care Routine Continuous until discontinued starting 03/04/2022 [employer] Phone: Comment on above: Continuous until dis continued starting 03/04/2022 Oxygen therapy [[facility] Data Set] Initiate Oxygen Therapy Protocol Respiratory Care Routine Daily until discontinued starting 10/14/2020 [employer] Phone: Comment on above: Daily until disconti nued starting 10/14/2020 Oxygen therapy [[facility] Data Set] Initiate Oxygen Therapy Protocol Respiratory Care Routine As Needed until discontinued starting 03/04/2022 Ade[facility] Work Phone: Comment on above: As Needed until disc ontinued starting 03/04/2022 Patient Education Schizophrenia (DC) [facility] DC Instructions [facility] Work Phone: Patient referral [facility] Work Phone: Phase I & II - meter ed glucose Phase I & II - metered glucose Point of Care Testing Routine As Needed until discontinued starting 10/14/2020 [employer] Phone: Comment on above: As Needed until disc ontinued starting 10/14/2020 End: 08-19-2020 Surgical Pathology Surgical Pathology Lab Routine HGSIL (high grade squamous intraepithelial lesion) on Pap smear of cervix 1 Occurrences starting 08/19/2020 until 08/19/2020 [employer] Phone: Comment on above: 1 Occurrences starti ng 08/19/2020 until 08/19/2020 Surgical Pathology Surgical Path ology Lab Routine Release Upon Ordering for 1 Occurrences starting 10/14/2020 [employer] Phone: Comment on above: Release Upon Orderin g for 1 Occurrences starting 10/14/2020 End: 08-24-2023 SVE SVE Point of Care Testing Routine One Time for 1 Occurrences starting 08/24/2023 until 08/24/2023 Adea Comment on above: One Time for 1 Occur rences starting 08/24/2023 until 08/24/2023 End: 09-12-2023 SVE SVE Point of Care Testing Routine One Time for 1 Occurrences starting 09/12/2023 until 09/12/2023 Adea Comment on above: One Time for 1 Occur rences starting 09/12/2023 until 09/12/2023 End: 05-01-2023 T. pallidum Ab Adea Comment on above: Once for 1 Occurrenc es starting 05/01/2023 until 05/01/2023 Immunizations Immunization Date Immunization Notes Care Provider Ralf kim 02-26-2019 Influenza, injectabl e, Madin Yuki Canine Kidney, preservative free, quadrivalent PHYSICIAN NO [facility] Payers Date Payer Category Payer Private Health Insurance [id number] 2021 Self-pay 1995 Unknown [id number] 2.16.8 [id number] 1993 Unknown [id number] 2.16. [id number] 1993 Unknown [id number] 2.16.84 0.1.259441.3.579.2.593 1993 Unknown [id number] 2.16.8 40.1.288384.3.579.2.173 1993 Unknown [id number] 2.16.8 40.1.999030.3.579.2.173 1993 Unknown [id number] 2.16.8 40.1.722738.3.579.2.173 1993 Unknown [id number] 2.16.8 40.1.669578.3.579.2.173 1993 Unknown [id number] 2.16.8 40.1.833700.3.579.2.173 1993 Unknown [id number] 2.16.8 40.1.283874.3.579.2.173 1993 Unknown [id number] 2.16.8 40.1.954810.3.579.2.173 1993 Unknown [id number] 2.16.8 40.1.816756.3.579.2.173 1993 Unknown [id number] 2.16.84 0.1.532846.3.579.2.1259 1993 Unknown [id number] 2.16.84 0.1.622806.3.579.2.1259 1993 Unknown [id number] 2.16.84 0.1.199400.3.579.2.9 1993 Unknown [id number] 2.16.84 0.1.509704.3.579.2.9 1993 Unknown [id number] 2.16.84 0.1.002104.3.579.2.9 1993 Unknown [id number] 2.16.84 0.1.764535.3.579.2.1258 1993 Unknown [id number] 2.16.84 0.1.921021.3.579.2.1258 1993 Unknown [id number] 2.16.84 0.1.053792.3.579.2.1259 1961 Medicaid [id number] Unknown [id number] 2.16.8 [id number] Social History Date Type Detail Facility Start: 12-24-2019 End: 03-01-2022 Tobacco smoking status NHIS Current every day smoker [place], [place] History of tobacco use Cigarette Smoker M [place], [place] Start: 12-24-2019 End: 09-04-2023 Cigarettes smoked current (pack per day) - Reported [place], [place] Start: 12-24-2019 End: 09-12-2023 Tobacco use and exposure Never used [place], [place] Start: 12-24-2019 End: 09-12-2023 Alcohol intake Current non-drinker of alcohol (finding) [place], [place] Start: 1995 Sex Assigned At Not on file [place], [place] Start: 02-19-2022 End: 04-24-2022 Exposure to SARS-CoV-2 (event) Not sure [place] Assertion Exposure to poll ution (event) [facility] Assertion Tobacco user (finding) [facility] Tobacco smoking status Unknown i f ever smoked [facility] Work Phone: Assertion Social drinker (finding) [facility] Assertion Sexually active (finding) [facility] Assertion [facility] Assertion Gender identity finding (finding) [facility] Assertion Finding of sexua l orientation (finding) [facility] Assertion Moderate cigaret te smoker (10-19 cigs/day) (finding) [facility] Assertion Heavy cigarette smoker (20-39 cigs/day) (finding) [facility] Start: 10-27-2021 Assertion Smoker (finding) [facility] Start: 1995 Sex Assigned At Female F [facility] Start: 03-01-2022 History SDOH Alcohol Frequency 1 [facility] Work Phone: Start: 03-01-2022 History SDOH Alcohol Std Drinks 0 Adea Work Phone: Start: 03-04-2022 Alcohol Comment barely ever- sociall y [facility] Work Phone: Start: 03-01-2022 End: 09-04-2023 Alcohol Use Disorder Identification Test - Consumption [AUDIT-C] Adea How often to you hav e a drink containing alcohol? Never Adea Start: 09-12-2023 Tobacco smoking stat [facility] Ex-smoker Adea Start: 03-03-2023 Lucibel NEGATED: Highlighted row Assertion [facility] NEGATED: Highlighted row Assertion Current drinker of alcohol (finding) [facility] NEGATED: Highlighted row Assertion Exposure to pollution (event) [facility] Work Phone: Goals Date Patient Goal Desired Activity /State Functional Status Date Assessment Result Facility 10-29-2021 Functional status Patient at [facility] Work Phone: Mental Status Date Assessment Result Facility 10-29-2021 Cognitive function Cognitive Sta tus Patient at [facility] Work Phone: Cognitive function Cognitive fun ctioning was normal Cognitive function finding (finding) [facility] Work Phone: Clinical Notes 03-20-2020 to 09-12-2023 Ana Riley RN - 09/12/2023 7:09 PM EDAna Lang RN - 09/12/2023 6:31 PM EDAna Lang RN - 09/12/2023 5:50 PM EDTDischarge InstructionsAttachmentsDischarge [...] may be discharged. 28yo F arrives to [facility] with c/o vaginal discharge, [...] pt that she would be shipped to [facility] as we do not deliver less than 35 weeks unless emergent. Pt placed on [facility] at this time, urine specimen collected and sent to lab. documented in this encounter [facility] 09-12-2023 [facility] Discharg e instructions Ana Riley RN - 09/12/2023 6:51 PM EDT OUTPATIENT DISCHARGE Dr Delano Stephen [facility] [address] [address] [phone] ACTIVITY LIMITATIONS: ( )Up and about as [...] be sent through Care Everywhere.: Abdominal Pain (Tuvaluan)documented in this encounter [facility] 08-24-2023 [facility] Discharg e Iman Mark RN - 08/24/2023 8:40 PM EDT OUTPATIENT DISCHARGE Dr. Laverne Meyer [facility] Dr. Delano Kruse [facility] [address] [facility] [address] [facility] [address] [place] ACTIVITY LIMITATIONS: ( x )Up [...] AND DELIVERY . documented in this encounter [facility] 08-03-2022 Hospital Discharg e instructions Samara Paulino [...] cannot be sent through Care Everywhere.Flank Pain (Tuvaluan)UTI (Urinary Tract Infection): Female (Tuvaluan)documented in this encounter [facility] Work Phone: 07-27-2022 Instructions Includes: Instructions for all patient encounters Discussed nutritional needs teach healthy choices including fruits and vegetables Last Documented On 3 6:56PM ; [facility] Patient education about a pr oper diet Last Documented On 3 6:56PM ; [facility] Patient education about an a sthma action plan Last Documented On 3 8:31AM ; [facility] Discussed concerns about exe rcise : promote physical activity ~ ~Will add symbicort ~ ~Follow up in one month Last Documented On 3 10:19AM ; [facility] Discussed current self-care methods/coping skills. ~Validated and normalized pt?s feelings while assisting patient process recent events. ~Discussed ongoing counseling. ~Discussed lifestyle changes to address chronic illness. ~Supported patient's personal health goals Last Documented On 2 4:59PM ; [facility] Discussed nutritional needs teach healthy choices including fruits and vegetables Last Documented On 2 4:50PM ; [facility] Patient education about a pr oper diet Last Documented On 2 4:50PM ; [facility] Discussed concerns about exe rcise : promote physical activity Last Documented On 2 4:50PM ; [facility] Discussed current self-care methods/coping skills. ~Validated and normalized pt?s feelings while assisting patient process recent events. ~Discussed ongoing counseling. ~Discussed lifestyle changes to address chronic illness. ~Supported patient's personal health goals Last Documented On 2 8:09PM ; [facility] Discussed nutritional needs teach healthy choices including fruits and vegetables Last Documented On 2 4:02PM ; [facility] Patient education about a pr oper diet Last Documented On 2 4:02PM ; [facility] Discussed concerns about exe rcise : promote physical activity Last Documented On 2 4:02PM ; [facility] Discussed nutritional needs teach healthy choices including fruits and vegetables Last Documented On 2 5:37PM ; [facility] Patient education about a pr oper diet Last Documented On 2 5:37PM ; [facility] Discussed concerns about exe rcise : promote physical activity Last Documented On 2 5:37PM ; [facility] Discussed nutritional needs teach healthy choices including fruits and vegetables Last Documented On 2 6:48PM ; [facility] Patient education about a pr oper diet Last Documented On 2 6:48PM ; [facility] Discussed concerns about exe rcise : promote physical activity Last Documented On 2 6:48PM ; [facility] Discussed nutritional needs teach healthy choices including fruits and vegetables Last Documented On 1 4:21PM ; [facility] Patient education about a pr oper diet Last Documented On 1 4:21PM ; [facility] Discussed concerns about exe rcise : promote physical activity Last Documented On 1 4:21PM ; [facility] Explored current self-care m ethods and encouraged patient to continue using them Last Documented On 1 7:54PM ; [facility] Discussed nutritional needs teach healthy choices including fruits and vegetables Last Documented On 1 11:53AM ; [facility] Patient education about a pr oper diet Last Documented On 1 11:53AM ; [facility] Discussed concerns about exe rcise : promote physical activity Last Documented On 1 11:53AM ; [facility] Work Phone: 1(446) 590-430305-31-2023 Evaluation note Includes: Assessments for all patient encounters Findings Encounter Date [Body mass index [BMI] 22.0- 22.9, adult] assessment of body mass index Medical Established Patient with Mariposa Duncan [employer] 07/27/2022 Last Documented On 3 10:19AM ; [facility] Diabetes Risk Test Score was 0.0 score 07/27/2022 Medical Established Patient with Mariposa Rosser [employer] 07/27/2022 Last Documented On 3 10:19AM ; [facility] Esophageal reflux without esophagitis Me dical Established Patient with Mariposa Duncan [employer] 07/27/2022 Last Documented On 3 10:19AM ; [facility] Schizoaffective disorder Established Patient with Halima Argueta [facility] 08/17/2021 Last Documented On 2 9:40PM ; [facility] Asthma Medical Established Patient with Kia Edith [employer] 08/17/2021 Last Documented On 2 6:20PM ; [facility] Esophageal reflux without esophagitis Me dical Established Patient with Kia Edith [employer] 08/17/2021 Last Documented On 2 6:20PM ; [facility] Schizoaffective disorder Medical Establi shed Patient with Kia Edith [employer] 08/17/2021 Last Documented On 2 6:20PM ; [facility] Z68.20 - Body mass index [BM I] 20.0-20.9, adult Medical Established Patient with Kia Edith [employer] 08/17/2021 Last Documented On 2 6:20PM ; [facility] Schizoaffective disorder Established Patient with Halima Argueta [facility] 07/15/2021 Last Documented On 2 11:18AM ; [facility] Schizoaffective disorder Established Patient with Halima Argueta [facility] 07/15/2021 Last Documented On 2 11:18AM ; [facility] Bipolar disorder NOS Medical Established Patient with Kia Edith [employer] 07/15/2021 Last Documented On 2 9:30AM ; [facility] Esophageal reflux without esophagitis Me dical Established Patient with Kia Edith [facility] 07/15/2021 Last Documented On 2 9:30AM ; [facility] Herpes simplex type I Medical Established Patien t with Kia Edith [facility] 07/15/2021 Last Documented On 2 9:30AM ; [facility] Z68.1 - Body mass index [BMI ] 19.9 or less, adult Medical Established Patient with Kia Edith [employer] 07/15/2021 Last Documented On 2 9:30AM ; [facility] Asthma Medical Established Patient with Kia Edith [employer] 07/01/2021 Last Documented On 2 7:44PM ; [facility] Bipolar disorder NOS Medical Established Patient with Kia Edith [employer] 07/01/2021 Last Documented On 2 7:44PM ; [facility] Herpes simplex type I Medical Established Patien t with Kia Sharma [employer] 07/01/2021 Last Documented On 2 7:44PM ; [facility] Schizoaffective disorder Medical Establi shed Patient with Kia Edith [employer] 07/01/2021 Last Documented On 2 7:44PM ; [facility] Z68.20 - Body mass index [BM I] 20.0-20.9, adult Medical Established Patient with Kia Edith [employer] 07/01/2021 Last Documented On 2 7:44PM ; [facility] Diabetes Risk Test Score was one score 05/28/2021 Medical Established Patient with Kia Edith [employer] 05/28/2021 Last Documented On 2 8:39AM ; [facility] Herpes simplex type I Medical Established Patien t with Kia Sharma [facility] 05/28/2021 Last Documented On 2 8:39AM ; [facility] No cough Medical Established Patient with Kia Edith [facility] 05/28/2021 Last Documented On 2 8:39AM ; [facility] Visit for: screening for hum an immunodeficiency virus Medical Established Patient with Kia Sharma [employer] 05/28/2021 Last Documented On 2 8:39AM ; [facility] Z11.59 - Encounter for nettie kauffman for other viral diseases Medical Established Patient with Kia Sharma [employer] 05/28/2021 Last Documented On 2 8:39AM ; [facility] Z68.1 - Body mass index [BMI ] 19.9 or less, adult Medical Established Patient with Kia Edith [employer] 05/28/2021 Last Documented On 2 8:39AM ; [facility] Asthma Medical Established Patient with Kia Edith [employer] 04/03/2020 Last Documented On 1 1:12PM ; [facility] Body mass index Medical Established Patient with Kia Edith [employer] 04/03/2020 Last Documented On 1 1:12PM ; [facility] Esophageal reflux without esophagitis Me dical Established Patient with Kia Edith [employer] 04/03/2020 Last Documented On 1 1:12PM ; [facility] Lower backache Medical Established Patient with Kia Sharma [employer] 04/03/2020 Last Documented On 1 1:12PM ; [facility] Bipolar disorder (per denia vega, diagnosed w/both Bipolar I & II) Telebehavioral Health with Halima Argueta [facility] 03/20/2020 Last Documented On 1 7:55PM ; [facility] Schizoaffective disorder (pe r patient report) Telebehavioral Health with Halima Argueta [facility] 03/20/2020 Last Documented On 1 7:55PM ; [facility] Asthma Telemedicine New Patient with An michelle Sharma [employer] 03/20/2020 Last Documented On 1 9:48AM ; [facility] Lumbago Telemedicine New Patient with An michelle Sharma [employer] 03/20/2020 Last Documented On 1 9:48AM ; [facility] Z68.21 - Body mass index [BM I] 21.0-21.9, adult Telemedicine New Patient with Kia Sharma [employer] 03/20/2020 Last Documented On 1 9:48AM ; [facility] Work Phone: 1(918) 585-967505-31-2023 Progress note* Progress note Date Encounter Last Documented by 07/27/2022 Medical Established Patient Last documented on 07/28/2022; 10:19 AM, Mariposa Duncan [employer]; [facility] Active Problems & Conditions - J45.998 - Asthma - M54.50 - Backache Lower - K21.9 - Esophageal Reflux Without Esophagitis - 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 - F25.0 - Schizoaffective Disorder Chief Complaint The Chief Complaint is: Patient states feels like gerd is coming back, patient states that burps smell like rotten eggs or sewer and 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 Referred Here [...] BP-Sitting L117/63 mmHg BP Cuff SizeRegular Pulse Rate-Kzxilgr02 bpm Temp-Mdssjwie08.3 F Fwwvos74 in Cooaym130 lbs 4.8 oz Body Mass Index22 kg/m2 Body Surface Area1.8 m2 Oxygen Odxqwudjoo58 % General Appearance: - Awake. - Alert. [...] in household were unable to get needed children's service worker: No and unable to get other [...] Less than 40 years (0 points) [Pre-DM]. [facility]05-31-2023 Reason for referral (narrative)* Date Encounter Description Provider Reason for Referral 07/27/22 Medical Established Patient Mariposa Duncan CNP Referral To Mental Health Team; JENIFFER Referral For [facility] Work Phone: 1(175) 502-136402-26-2023 Hospital Discharge instructions* Discharge Instructions* Christopher Stephenson [...] through Care Everywhere. * Nausea and Vomiting ([place]uan) [facility] Phone: 1(344) 331-692901-06-2023 History of Present illness Narrative* Martha Melgoza [...] smoked today 03/03/22. [facility] [email or web address] Work Phone: [phone]) 511-505701-06-2023 Hospital Discharge instructions* Discharge Instructions* Kassidy Davidson [...] to bathe or shower. documented in [facility] [place] [facility] Phone: 1(744) 408-331501-03-2023 Hospital Discharge instructions* Discharge Instructions* Nicholas Denton MD - 03/01/2022 8:09 AM EST Take your medications as prescribed. You may take Tylenol Motrin as needed for pain control as wellas warm compresses. Follow-up with your OB whiting can worker as scheduled. You have been given a referral for general surgeon if this continues for further assessment of possible drainage. * Attachments The following attachments cannot be sent through Care Everywhere. * Cellulitis ([place]uan) documented in this encounterFEDERAL [facility], DEVENSBunkspeed [facility] Phone: 1(423) 123-456906-21-2022 Evaluation note Includes: Assessments for all patient encounters Findings Encounter Date Schizoaffective disorder Established Patient with Halima Argueta [facility] 08/17/2021 Asthma Medical Established Patient with Kia Sharma [facility] 08/17/2021 Esophageal reflux without esophagitis Me dical Established Patient with Kia Sharma [facility] 08/17/2021 Schizoaffective disorder Medical Establi shed Patient with Kia Sharma [facility] 08/17/2021 Z68.20 - Body mass index [BM I] 20.0-20.9, adult Medical Established Patient with Kia Sharma [facility] 08/17/2021 Schizoaffective disorder Established Patient with Halima Argueta [facility] 07/15/2021 Schizoaffective disorder Established Patient with Halima Argueta [facility] 07/15/2021 Bipolar disorder NOS Medical Established Patient with Kia Sharma [employer] 07/15/2021 Esophageal reflux without esophagitis Me dical Established Patient with Kia Edith [facility] 07/15/2021 Herpes simplex type I Medical Establishe d Patient with Kia Sharma [facility] 07/15/2021 Z68.1 - Body mass index [BMI ] 19.9 or less, adult Medical Established Patient with Kia Sharma [facility] 07/15/2021 Asthma Medical Established Patient with Kia Sharma [employer] 07/01/2021 Bipolar disorder NOS Medical Established Patient with Kia Edith [employer] 07/01/2021 Herpes simplex type I Medical Establishe d Patient with Kia Edith [employer] 07/01/2021 Schizoaffective disorder Medical Establi shed Patient with Kia Sharma [facility] 07/01/2021 Z68.20 - Body mass index [BM I] 20.0-20.9, adult Medical Established Patient with Kia Sharma [employer] 07/01/2021 Diabetes Risk Test Score was one score 05/28/2021 Medical Established Patient with Kia Sharma [facility] 05/28/2021 Herpes simplex type I Medical Establishe d Patient with Kia Sharma [facility] 05/28/2021 No cough Medical Established Patient with Kia Sharma [facility] 05/28/2021 Visit for: screening for hum an immunodeficiency virus Medical Established Patient with Kia Sharma [facility] 05/28/2021 Z11.59 - Encounter for scree jamari for other viral diseases Medical Established Patient with Kia Sharma [facility] 05/28/2021 Z68.1 - Body mass index [BMI ] 19.9 or less, adult Medical Established Patient with Kia Sharma [facility] 05/28/2021 Asthma Medical Established Patient with Kia Sharma [facility] 04/03/2020 Body mass index Medical Established Patient with Kia Sharma [facility] 04/03/2020 Esophageal reflux without esophagitis Me dical Established Patient with Kia Sharma [facility] 04/03/2020 Lower backache Medical Established Patient with Kia Edith [employer] 04/03/2020 Bipolar disorder (per denia vega, diagnosed w/both Bipolar I & II) Telebehavioral Health with Halima Argueta [facility] 03/20/2020 Schizoaffective disorder (pe r patient report) Telebehavioral Health with Halima Argueta [facility] 03/20/2020 Asthma Telemedicine New Pat ient with Kia Sharma [facility] 03/20/2020 [facility] Telemedicine New Pat ient with Kia Edith [employer] 03/20/2020 Z68.21 - Body mass index [BM I] 21.0-21.9, adult Telemedicine New Patient with Kia Edith [employer] FINISHER HEL[employer] 03/20/2020 [facility] Work Phone: 1(401) 863-909905-19-2022 Evaluation note Includes: Assessments for all patient encounters Findings Encounter Date Schizoaffective disorder Established Patient with Halima Argueta [facility] 07/15/2021 Schizoaffective disorder Established Patient with Halima Argueta [facility] 07/15/2021 Bipolar disorder NOS Medical Established Patient with Kia Sharma [employer]ISHER HEL[employer] 07/15/2021 Esophageal reflux without esophagitis Me dical Established Patient with Kia Sharma [employer] FINISHER HEL[employer] 07/15/2021 Herpes simplex type I Medical Establishe d Patient with Kia Sharma [employer] FINISHER HEL[employer] 07/15/2021 Z68.1 - Body mass index [BMI ] 19.9 or less, adult Medical Established Patient with Kia Sharma [employer] FINISHER HEL[employer] 07/15/2021 Asthma Medical Established Patient with Kia Sharma [employer] FINISHER HEL[employer] 07/01/2021 Bipolar disorder NOS Medical Established Patient with Kia Sharma [employer] FINISHER HEL[employer] 07/01/2021 Herpes simplex type I Medical Establishe d Patient with Kia Sharma [employer] FINISHER HELPER 07/01/2021 Schizoaffective disorder Medical Establi shed Patient with Kia Sharma [employer] FINISHER HELPER 07/01/2021 Z68.20 - Body mass index [BM I] 20.0-20.9, adult Medical Established Patient with Kia Sharma [employer] FINISHER HELPER 07/01/2021 Diabetes Risk Test Score was one score 05/28/2021 Medical Established Patient with Kia Sharma [employer] FINISHER HELPER 05/28/2021 Herpes simplex type I Medical Establishe d Patient with Kia Edith TERRAZZO FINISHER HELPER 05/28/2021 No cough Medical Established Patient with Kia Edith [employer] FINISHER HELPER 05/28/2021 Visit for: screening for hum an immunodeficiency virus Medical Established Patient with Kia Edith [employer]RAZZO FINISHER HELPER 05/28/2021 Z11.59 - Encounter for scree jamari for other viral diseases Medical Established Patient with Kia Edith TERRAZZO FINISHER HELPER 05/28/2021 Z68.1 - Body mass index [BMI ] 19.9 or less, adult Medical Established Patient with Kia Sharma [employer] FINISHER HELPER 05/28/2021 Asthma Medical Established Patient with Kia Sharma [facility] 04/03/2020 Body mass index Medical Established Patient with Kia Sharma [facility] 04/03/2020 Esophageal reflux without esophagitis Me dical Established Patient with Kiafranco Sharma [facility] 04/03/2020 Lower backache Medical Established Patient with Kia Sharma [facility] 04/03/2020 Bipolar disorder (per denia vega, diagnosed w/both Bipolar I & II) Telebehavioral Health with Halima Condonmons [facility] 03/20/2020 Schizoaffective disorder (pe r patient report) Telebehavioral Health with Halima Argueta [facility] 03/20/2020 Asthma Telemedicine New Pat ient with Kia Edith [facility] 03/20/2020 Lumbago Telemedicine New Pat ient with Kiafranco Sharma [facility] 03/20/2020 Z68.21 - Body mass index [BM I] 21.0-21.9, adult Telemedicine New Patient with Kia Sharma [facility] 03/20/2020 [facility] Work Phone: 1(130) 372-849905-05-2022 Evaluation note Includes: Assessments for all patient encounters Findings Encounter Date Asthma Medical Established Patient with Kia Sharma [facility] 07/01/2021 Bipolar disorder NOS Medical Established Patient with Kia Sharma [facility] 07/01/2021 Herpes simplex type I Medical Establishe d Patient with Kia Edith [facility] 07/01/2021 Schizoaffective disorder Medical Establi shed Patient with Kia Sharma [facility] 07/01/2021 Z68.20 - Body mass index [BM I] 20.0-20.9, adult Medical Established Patient with Kia Sharma [facility] 07/01/2021 Diabetes Risk Test Score was one score 05/28/2021 Medical Established Patient with Kia Sharma [facility] 05/28/2021 Herpes simplex type I Medical Establishe d Patient with Kia Sharma [facility] 05/28/2021 No cough Medical Established Patient with Kia Sharma [facility] 05/28/2021 Visit for: screening for hum an immunodeficiency virus Medical Established Patient with Kia Sharma [facility] 05/28/2021 Z11.59 - Encounter for scree jamari for other viral diseases Medical Established Patient with Kia Edith [facility] 05/28/2021 Z68.1 - Body mass index [BMI ] 19.9 or less, adult Medical Established Patient with Kia Sharma [facility] 05/28/2021 Asthma Medical Established Patient with Kia Sharma [facility] 04/03/2020 Body mass index Medical Established Patient with Kia Sharma [employer]ISH[employer] HEL[employer] 04/03/2020 Esophageal reflux without esophagitis Me dical Established Patient with Kia Sharma [employer] FINISHER HELPER 04/03/2020 Lower backache Medical Established Patient with Kia Sharma [employer] FINISHER HEL[employer] 04/03/2020 Bipolar disorder (per denia t, diagnosed w/both Bipolar I & II) Telebehavioral Health with Halimachuck Marroquins [facility] 03/20/2020 Schizoaffective disorder (pe r patient report) Telebehavioral Health with [place]im[place] [facility] 03/20/2020 Asthma Telemedicine New Pat ient with Kia Sharma [facility] 03/20/2020 Lumbago Telemedicine New Pat ient with Kia Sharma [facility] 03/20/2020 Z68.21 - Body mass index [BM I] 21.0-21.9, adult Telemedicine New Patient with Kia Sharma [facility] 03/20/2020 [facility] Work Phone: 1(830) 396-112404-01-2022 Evaluation note Includes: Assessments for all patient encounters Findings Encounter Date Diabetes Risk Test Score was one score 05/28/2021 Medical Established Patient with Kia Sharma [facility] 05/28/2021 Herpes simplex type I Medical Establishe d Patient with Kia Sharma [facility] 05/28/2021 No cough Medical Established Patient with Kia Sharma [facility] 05/28/2021 Visit for: screening for hum an immunodeficiency virus Medical Established Patient with Kia Sharma [facility] 05/28/2021 Z11.59 - Encounter for scree jamari for other viral diseases Medical Established Patient with Kia Sharma [facility] 05/28/2021 Z68.1 - Body mass index [BMI ] 19.9 or less, adult Medical Established Patient with Kia Sharma [facility] 05/28/2021 Asthma Medical Established Patient with Kia Sharma [facility] 04/03/2020 Body mass index Medical Established Patient with Kia Sharma [employer]ISH[employer] 04/03/2020 Esophageal reflux without esophagitis Me dical Established Patient with Kia Sharma [employer] FINISHER HELPER 04/03/2020 Lower backache Medical Established Patient with Kia Sharma [employer] FINISHER HEL[employer] 04/03/2020 Bipolar disorder (per denia t, diagnosed w/both Bipolar I & II) Telebehavioral Health with Hailmachuck Marroquins [facility] 03/20/2020 Schizoaffective disorder (pe r patient report) [facility] Hal[facility]gueta [facility] 03/20/2020 Asthma Telemedicine New Pat ient with Kia Sharma [employer] FINISHER HELPER 03/20/2020 Lumbago Telemedicine New Pat ient with Kia Sharma [employer] FINISHER HELPER 03/20/2020 Z68.21 - Body mass index [BM I] 21.0-21.9, adult Telemedicine New Patient with Kia Sharma [employer] FINISHER HELPER 03/20/2020 [facility] Work Phone: 1(111) 270-537708-18-2021 History of Present illness Narrative* Irish Nelson [...] RN - 10/14/2020 12:39 PM EDT Rogers SWATCH FOLDER in to see patient. Patient's boyfriend called to apple picker. * Rufina Hamilton RN - 09/28/2020 [...] message. Dr. Galloway office notified. * Kasie Ross, WALT - 09/16/2020 9:34 AM EDT Maria D at Dr Galloway office notified that pt is not answering phone, has no VM, and there is a recording that states pt is not excepting phone calls at this time. [facility] Work Phone: 1(670) 751-235502-05-2021 Evaluation note Includes: Assessments for all patient encounters Findings Encounter Date Asthma Medical Established Patient with Kia Sharma [facility] 04/03/2020 Body mass index Medical Established Patient with Kia Sharma [facility] 04/03/2020 Esophageal reflux without esophagitis Me dical Established Patient with Kia Sharma [facility] 04/03/2020 Lower backache Medical Established Patient with Kia Sharma [facility] 04/03/2020 Bipolar disorder (per denia vega, diagnosed w/both Bipolar I & II) Telebehavioral Health with Halima Argueta [facility] 03/20/2020 Schizoaffective disorder (pe r patient report) Telebehavioral Health with Halima Argueta [facility] 03/20/2020 Asthma Telemedicine New Pat ient with Kia Sharma [facility] 03/20/2020 Lumbago Telemedicine New Pat ient with Kia Sharma [facility] 03/20/2020 Z68.21 - Body mass index [BM I] 21.0-21.9, adult Telemedicine New Patient with Kia Sharma [facility] 03/20/2020 [facility] Work Phone: 1(682) 443-728101-22-2021 History general Narrative - Reported Includes: Medical History in patient's chart Description Last Updated per pt report- 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 ~heartb urn 03/20/2020 History of psychiatric disor ders ADHD, manic bipolar 1 and 2, schizoeffective disorder 03/20/2020 History of tooth extraction 03/20/2020 History of asthma 03/20/2020 A recent immunization for flu 03/20/2020 No previous hospitalizations 03/20/2020 [facility] Work Phone: 1(707) 815-214001-22-2021 History general Narrative - Reported Includes: Medical History in patient's chart Description Last Updated per pt report- 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 ~heartb urn 03/20/2020 Last Documented On 1 9:48AM ; [facility] History of psychiatric disor ders ADHD, manic bipolar 1 and 2, schizoeffective disorder 03/20/2020 Last Documented On 1 9:48AM ; [facility] History of tooth extraction 03/20/2020 Last Documented On 1 9:48AM ; [facility] History of asthma 03/20/2020 Last Documented On 1 9:48AM ; [facility] A recent immunization for flu 03/20/2020 Last Documented On 1 9:48AM ; [facility] No previous hospitalizations 03/20/2020 Last Documented On 1 9:48AM ; [facility] Work Phone: Discharge summary Author Osmani baugh [facility] October 29, 2021 9:52am Note Date/Time October 29, 2021 9:52am [facility] [address] [place] [address] Discharge Summary Signed Patient: Bennett Vaughn MR#: [id number] : 1995 Acct:[id number] Age/Sex: 26 / F Adm Date: 2 Loc: Room: [address] [place] [address]: Feliberto Faust MD Copies to: [...] 15 Days Qty: 30 1RF Follow Up: [employer] [Other] (Therapy: Case management: ) Documented By: Osmani Timmons MD 2 0949 Signed By: <Electronically signed by Osmani Timmons MD> 10/29/21 0952 [facility] Work Phone: Evaluation note* Diagnosis HGSIL (high grade squamous intraepithelial lesion) on Pap smear of cervix documented in this encounter [employer] Work Phone: [email or web address] note* Diagnosis Preop testing- Primary Preoperative examination, unspecified documented in this encounter [employer] Phone: [email or web address] note* Diagnosis Preop testing Preoperative examination, unspecified documented in this encounter [employer] Phone: [email or web address] note* Diagnosis 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 documented in this encounter [employer] Phone: evalfkupna note* Diagnosis Irregular menstrual cycle documented in this encounter [employer] Phone: [email or web address] note* Diagnosis Vaginal discharge Leukorrhea, not specified as infective documented in this encounter [employer] Phone: [email or web address] note* Diagnosis Onset Date Resolution Status Bipolar affective, mixed, sev w/ psych acute Chronic schizophrenia acute PTSD (post-traumatic stress disorder) acute Suicidal ideation acute [facility] Work Phone: Evaluation note* Diagnosis Cellulitis of right breast- Primary documented in this encounter [employer] Work Phone: Evaluation note* Diagnosis Abscess of right breast- Primary Inflammatory disease of breast Abscess of right breast Inflammatory disease of breast documented in this encounter [employer] Phone: evaluation note* Diagnosis Nausea vomiting and diarrhea- Primary Nausea with vomiting documented in this encounter [employer] Phone: evaluation note* Diagnosis Abscess of female breast Inflammatory disease of breast documented in this encounter [employer] Phone: evaluation note* Diagnosis Flank pain- Primary Abdominal pain, unspecified site Urinary tract infection without hematuria, site unspecified documented in this encounter [employer] Phone: evaluation note* Diagnosis Abdominal pain- Primary Abdominal pain, unspecified site documented in this encounter [facility] note* Diagnosis Abdominal cramping- Primary Abdominal pain, unspecified site documented in this encounter AdeaHistory and physical note Author Feliberto Faust [facility] October 27, 2021 3:07pm Note Date/Time October 27, 2021 3: 07pm [facility] [address] [place] [address] Psychiatry H&P Signed Patient: Bennett Vaughn MR#: [id number] : 1995 Acct:[id number] Age/Sex: 26 / F Adm Date: 2 Loc: Room: [address] [place] [address] Type: ADM IN Attending Dr: Feliberto Faust [...] as she believed that they are working. [facility] Vaccinated for COVID-19?: No Medical History ADHD [...] Appearance Clear Urine pH 7.0 Ur Specific Potter 1.005 Urine Protein Negative Urine Glucose (UA) [...] <Electronically signed by Feliberto Faust MD> 10/27/21 1506 [facility] Work Phone: History of Present illness Narrative History of Present Illness not supported for this document type No History of Present Illness [facility] Work Phone: Hospital Discharge instructions* [...] In the meantime, you may take an [id number]-npt-cdpaokq analgesic (Tylenol, Anacin, etc.) and use a heating pad applied to the lower abdomen. Please call the office as soon as possible for a post-operative visit in two weeks. If you experience any unusual amount of bleeding or side effects that you cannot readily explain, please do not hesitate to call the office. documented in [facility] encounter[facility] Work Phone: Hospital Discharge instructions Additional Instructions Regular diet No [facility] Work Phone: Instructions Instructions not supported for this document type No Instructions [facility] Work Phone: Patient problem outcome Narrative Includes: Evaluations & Outcomes for active Goals No Outcomes [facility] Work Phone: Progress note Author Osmani baugh [facility] October 28, 2021 12:18pm Note Date/Time October 28, 2021 12:18pm [facility] [address] [place] [address] Psychiatry Progress Note Signed Patient: Bennett Vaughn MR#: [id number] : 1995 Acct:[id number] Age/Sex: 26 / F Adm Date: 2 Loc: Room: 0F3264-5 Type : ADM IN Attending Dr: Feliberto [...] signed by Osmani Timmons MD> 10/28/21 1218 [facility] Work Phone: Reason for referral (narrative)No Reason for Referral [facility] Work Phone: Review of systems Narrative - Reported Review of Systems not supported for this document type No Review of Systems [facility] Work Phone: Summary Purpose Family History No Family History Records Found Description Last Updated father unknown 03/20/2020 Fraternal history of asthma 03/20/2020 Maternal history of hypertension 021 Relationship Condition Age at Onset Recorded Date/T jama Not Specified Bipolar affective disorder Unknown Hypertension Unknown brother Asthma Unknown Description Last Updated father unknown 03/20/2020 Last Documented On 9:48AM ; [facility] Fraternal history of asthma 03/20/2020 Maternal history of hypertension 021 Advance Directives No Advanced Directives Records FoundDocuments on File Type Date Recorded Patient Meat Hanger Expl anation ACP-Advance Directive ACP-Power of Jackscrew Man Latest Code Status on File Code Status Date Activated Date Inactivated Comments Full Code 02/13/2018 11:30 AM 02/15/2018 11:04 PM Full Code 07/15/2017 3:32 AM 07/17/2017 3:26 PM Full Code 07/15/2017 3:31 AM 07/15/2017 3:32 AM Full Code 10/29/2016 5:43 AM 11/02/2016 12:08 AM Full Code 02/14/2015 3:50 AM 02/17/2015 4:19 PM Documents on File Type Date Recorded Patient Meat Hanger Expl anation ACP-Advance Directive ACP-Power of Jackscrew Man Latest Code Status on File Code Status [...] Jose C Arenas Other Primary Decision Maker Latest Code [...] Jose C Arenas Other Primary Decision Maker Latest Code [...] sent through Care Everywhere. * Tooth: Abscessed ([place]) documented in this encounter* Instructions* Sid Norris [...] sent through Care Everywhere. * Bacterial Vaginosis ([place]) * Vaginal Bleeding ([place]) documented in this encounter* Instructions* Irnia Ojeda PA-C - 02/06/2020 Call your dentist to arrange follow-up for recheck this week. * Attachments The following attachments cannot be sent through Care Everywhere. * Tooth: Abscessed ([place]) documented in this encounter* Instructions* Jose Saldaña APRN - [facility] - 12/24/2019 Take amoxicillin as prescribed. Return to the emergency department for worsening symptoms. * Attachments The following attachments cannot be sent through Care Everywhere. * Dental Care: Pre-Dental Work Precautions: General Info ([place]) documented in this encounter Assessments Diagnosis Dental infection Acute apical periodontitis of pulpal origin Diagnosis Dental abscess Periapical abscess without sinus Dental caries Unspecified dental caries Diagnosis Bacterial vaginosis- Primary Vaginitis and vulvovaginitis, unspecified Vaginal bleeding Other specified noninflammatory disorder of vagina Findings Encounter Date Bipolar disorder (per denia vega, diagnosed w/both Bipolar I & II) Telebehavioral Health with Halima Argueta [facility] 03/20/2020 Schizoaffective disorder (pe r patient report) Telebehavioral Health with Halima Argueta [facility] 03/20/2020 Asthma Telemedicine New Pat ient with Kia Sharma [facility] 03/20/2020 Lumbago Telemedicine New Pat ient with Kia Sharma [facility] 03/20/2020 Z68.21 - Body mass index [BM I] 21.0-21.9, adult Telemedicine New Patient with Kia Sharma [facility] 03/20/2020 Diagnosis Women's annual routine gynecological examination Findings Encounter Date Asthma Medical Established Patient with Kia Sharma [facility] 04/03/2020 Body mass index Medical Established Patient with Kia Sharma [facility] 04/03/2020 Esophageal reflux without esophagitis Me dical Established Patient with Kia Sharma [facility] 04/03/2020 Lower backache Medical Established Patient with Kia Sharma [facility] 04/03/2020 Bipolar disorder (per denia vega, diagnosed w/both Bipolar I & II) Telebehavioral Health with Halima Condonmons [facility] 03/20/2020 Schizoaffective disorder (pe r patient report) Telebehavioral Health with Halimaashok Argueta [facility] 03/20/2020 Asthma Telemedicine New Pat ient with Kia Sharma [employer] FINISHER HELPER 03/20/2020 Lumbago Telemedicine New Pat ient with Kia Sharma [facility] 03/20/2020 Z68.21 - Body mass index [BM I] 21.0-21.9, adult Telemedicine New Patient with Kia Sharma [facility] 03/20/2020 Diagnosis Dental infection- Primary Acute [...] section and content) DATE CREATED AUTHOR 12/08/2018 [facility] DATE CREATED AUTHOR AUTHOR'S ORGANIZ ATION 05/31/2021 [facility] DATE CREATED AUTHOR AUTHOR'S ORGANIZ ATION 03/16/2022 [facility] DATE CREATED AUTHOR AUTHOR'S ORGANIZ ATION 04/02/2022 [facility] DATE CREATED AUTHOR AUTHOR'S ORGANIZ ATION 10/02/2023 [facility] DATE CREATED AUTHOR AUTHOR'S ORGANIZ ATION 10/04/2023 [facility] Specialists EPIC Reason for Visit (unrecogniz [...] (cervical intraepithelial neoplasia II) SHREYA II Procedures VT CONIZATION CERVIX,LOOP ELECTRD DILATATION AND CURETTAGE LEEP-ENDOCERVICAL CURETTAGE Anthony Galloway MD [address] [place] [address] [facility] [address] [place] [address] [facility] Reason Comments Breast Pain Right sided, onset y day pm, patient states she had an infection in her right breast a few months ago Specialty Diagnoses / Procedures Referred By Conthi t Referred To Contact Diagnoses Abscess of right breast right breast abcess Procedures VT DRAIN SKIN ABSCESS SIMPLE BREAST INCISION AND DRAINAGE- BREAST Geoff Miller MD [address] [place] [address] [facility] [address] [place] [address] Referral ID Status Reason Start Date Expiration Date Visits Re quested Visits Authorized [id number] 1 1 Reason Comments Nausea Emesis Illness Pt. States she has h ad nausea & vomiting since this am. Reports hot & cold flashes & Occasional dizziness Specialty Diagnoses / Procedures Referred By Sinac t Referred To Contact Radiology Diagnoses Abscess of female breast Procedures US BREAST LIMITED RIGHT US BREAST COMPLETE RIGHT Geoff Miller MD [address] [place] [address] Referral ID Status Reason Start Date Expiration Date Visits Re quested Visits Authorized [id number] Open 04/18/2022 04/18/2023 1 1 Specialty Diagnoses / Procedures Referred By Gladis vega Referred To Contact Radiology Diagnoses Abscess of female breast Procedures DUSTIN JASMINA DIGITAL DIAGNOSTIC BILATERAL DUSTIN DIGITAL DIAGNOSTIC W OR WO CAD BILATERAL Geoff Miller MD [address] [place] [address] Referral ID Status Reason Start Date Expiration Date Visits Re quested Visits Authorized [id number] Closed 04/18/2022 04/18/2023 1 1 Reason Comments [...] 100 mL IVPB (COMPLETED) 2,000 mg, Intravenous, METER REPAIR SHOP SUPERVISOR TO O.R., 1 dose, On Mon10/14/20 at [...] 100 mL IVPB (COMPLETED) 2,000 mg, IntraVENous, METER REPAIR SHOP SUPERVISOR TO O.R., 1 dose, On Mon03/04/22 at [...] PHYSICIAN NO FAMILY Primary Care Provider Active Unit Supervisor Relationship Specialty Start Date End Date Kia Sharma S IRON WORKER - TERRAZZO FINISHER HELPER [address] [place] [phone] PCP - General Nurse Practitioner 04/13/22 Unit Supervisor Relationship Specialty Start Date End Date Kia Sharma S IRON WORKER - TERRAZZO FINISHER HELPER [address] [place] [phone] PCP - General Nurse Practitioner 04/13/22 Unit Supervisor Relationship Specialty Start Date End Date Kia Sharma S IRON WORKER - TERRAZZO FINISHER HELPER [address] [place] [phone] PCP - General Nurse Practitioner 04/13/22 Unit Supervisor Relationship Specialty Start Date End Date Kia Sharma APRN - [facility] [address] [place] [phone] PCP - General Nurse Practitioner 04/13/22 Unit Supervisor Relationship Specialty Start Date End Date Kia Sharma APRN [facility] [address] [place] [phone] PCP - General Nurse Practitioner 04/13/22 Unit Supervisor Relationship Specialty Start Date End Date Kia Sharma APRN - [facility] [address] [place] [phone] PCP - General Nurse Practitioner 04/13/22 [...] BE BASED ON THE PRIMARY CLINICAL RECORDS. [facility]. provides no warranty or guarantee of the accuracy or completeness of information in this document.
[2023-10-06 18:29] VITALS: BP 129/74; PULSE 80
[2023-10-06 19:07] LABS: Bilirubin Urine NEGATIVE (NEGATIVE); Blood Urine NEGATIVE (NEGATIVE); Clarity Urine CLEAR (CLEAR); Color Urine LT. YELLOW (YELLOW); Glucose Urine UA NEGATIVE (NEGATIVE); Ketones Urine TRACE mg/dL (NEGATIVE); Leukocyte Esterase Urine NEGATIVE (NEGATIVE); Nitrite Urine NEGATIVE (NEGATIVE); Protein Urine NEGATIVE (NEG/TRACE); Urobilinogen Urine 0.2 EU/dL (0.2-1.0); pH Urine 6.5 (5.0-9.0)
[2023-10-06 19:11] LABS: Urine Microscopic Indicated NO
--- NOTE | 2023-10-06 19:56 | PC.NURSE ---
Introduced myself to patient and inquired on how she is feeling. Patient states she hasn't felt any pain in a while. Patient looks comfortable at this time and denies any pain at this time.
== END 2023-10-06 20:05 | disposition home or self-care (01) ==
LOC: FBC 18:12
PROVIDERS: Admitting Provider Obstetrics & Gynecology; Visit Provider Obstetrics & Gynecology
DX: O47.03 False labor before 37 completed weeks of gestation, third trimester (principal); Z3A.33 33 weeks gestation of pregnancy
CPT/HCPCS: 81003; G0378; G0379

== ENCOUNTER 2023-10-13 15:47 | Outpatient (OUT) | payer OTHER, SELFPAY ==
--- NOTE | 2023-10-13 15:48 | US_ITS ---
[address] [address] Patient Name: BENNETT EM MRN: [id number] date: 1995 Sex: F Assigned Patient Location: US Current Patient Location: Accession/Order Number: [id number] Exam Date: 10/13/2023 16:00 Report Date: 10/14/2023 04:12 At the request of: MERRICK BOCANEGRA Procedure: US OB growth EXAMINATION: US OB growth HISTORY: GESTATIONAL DIABETES MELLITUS O24.419 COMPARISON: Ultrasound OB growth 09/15/2023 FINDINGS: Heart Rate: 162.65 bpm Amniotic Fluid Volume: 11.3 cm; normal range Number: 1 Position: BREECH BIOMETRY: BPD: 8.16 cm; 32 weeks 6 days; 15.90 % HC: 30.91 cm; 34 weeks 4 days; 26.30 % AC: 30.25 cm; 34 weeks 1 day; 60.10 % FL: 5.83 cm; 30 weeks 3 days; < 3 % EFW: 2109.60 g; 18.80 % FL/AC: 19.27 FL/BPD: 71.40 HC/AC: 1.02 GESTATIONAL AGE: Age by EDC: 34 weeks 0 days MADIE by EDC: 2023-11-24 Age by US: 33 weeks 0 days MADIE by US: 2023-12-01 US/US OB growth IMPRESSION: 1. Single live intrauterine with growth detailed above. 2. Femur length is < 3rd percentile. Electronically authenticated by: HELENA CASTRO Date: 10/14/2023 04:12
== END 2023-10-13 15:48 | disposition home or self-care (01) ==
LOC: US 15:47
PROVIDERS: Visit Provider Obstetrics & Gynecology
DX: O24.419 Gestational diabetes mellitus in pregnancy, unspecified control (principal); Z3A.33 33 weeks gestation of pregnancy
CPT/HCPCS: 76816

== ENCOUNTER 2023-10-23 07:17 | Outpatient (OUT) | payer OTHER, SELFPAY ==
--- OUTSIDE RECORDS SUMMARY | 2023-10-23 07:29 | XMS_ITS | CCD ---
Author Organization [facility] [place] Care Team Providers Care Telephone Clerk Telegraph Office Name Role Phone Bryce De La Garza [...] Emergency Provider MD Govind Feliberto Admit Provider [phone] MD Feliberto Faust Attending Provider Unavailable Primary Care Provider UnavailDR YURIY Peraza Admitting Unavailable DR YURIY SABILLON Attending Unavailable REQUEST, NONE LISTED Primary Care UnavailDR YURIY Ragland Consulting Unavailable NO FAMILY, PHYSICIAN Primary Care Unavailable Feliberto Faust Attending Unavailable Feliberto Faust Admitting Unavailable Kia Booker APRN, CNP Primary Care Provide r Mariposa Duncan CNP Primary Care Provider [phone] Kia Booker APRN, CNP Primary Care Provide r Kia Booker APRN, CNP Primary Care Provide r JAGDEEP MANRIQUE Admitting Unavailable D'ABREAU, JAGDEEP Attending Unavailable EDITH, KIA Primary Care Unavailable FERNANDA VIPIN Admitting Unavailable FERNANDA, JUSTAN Attending Unavailable EDITH, KIA Primary Care Unavailable CLINTON TRIVEDI Admitting [...] YURIY Attending Unavailable DALJIT, YURIY Attending Unavailable RUSTY, GENESIS Attending Unavailable DALJIT, YURIY Attending Unavailable RUSTYGENESIS REN Attending Unavailable DALJIT, YURIY Attending Unavailable RUSTY, GENESIS Attending Unavailable Medications Current Medications Medication Drug Class(es) Dates Sig (Normalized) Sig (Original) acetaminophen 500 mg oral tablet (20 sources) Start: 03-04-2022 acetaminophen (TYLENOL) tablet 1,000 mg Start: 10-14-2020 acetaminophen (TYLENOL) tablet 650 mg Start: 05-27-2020 acetaminophen (TYLENOL) tablet 1,000 mg Start: 05-27-2020 take 2 tablets by [facility] every six hours as needed for pain [...] pain 10 tablet 0 10/14/2020 10/17/2020 Active [id number] 200 actuat albuterol 0.09 mg/actuat metered dose [...] Active 1 MG PO Daily at bedtime 15 October 29, 2021 12:00am Start: 03-20-2020 End: [...] Routineon 2023 Bilirubin, SemiQt,Ur Negative Normal NEG [facility] Comment on above: Performed By: #### U A #### [facility] [address] [place] [address] [place] [address] Channel Sales Director: Hayden Cartagena MD Blood, Urine Negative Normal NEG [facility] Comment on above: Performed By: #### U A #### [facility] [address] [place] [address] [place] [address] Channel Sales Director: Hayden Cartagena MD Clarity (U) Clear Normal CLEAR [facility] Comment on above: Performed By: #### U A #### [facility] [address] [place], [place] [phone] Channel Sales Director: Hayden Cartagena MD Color (U) Yellow Normal YEL [facility] Comment on above: Performed By: #### U A #### [facility] [address] [place], [place] [phone] Channel Sales Director: Hayden Cartagena MD Glucose Ql (U) Negative Normal NEG [facility] Hospital Comment on above: Performed By: #### U A #### [facility] [address] [place] [address] [place] [address] Channel Sales Director: Hayden Cartagena MD Ketones Ql (U) Negative Normal NEG [facility] Comment on above: Performed By: #### U A #### [facility] [address] [place] [address] [place], [place] [phone] Channel Sales Director: Hayden Cartagena MD Leukocyte esterase Test strip Ql (U) Negative Normal NEG [facility] Comment on above: Performed By: #### U A #### [facility] [address] [place] [address] [place], [place] [phone] Channel Sales Director: Hayden Cartagena MD Nitrite,Ur Negative Normal [facility] Comment on above: Performed By: #### U A #### [facility] [address] [place] [address] Dr[place], [place] 2003783 Channel Sales Director: Hayden Cartagena MD PH,Ur 6.0 Normal 5.0-9.0 [facility] Comment on above: Performed By: #### U A #### [facility] [address] [place] [address] Dr[place], [place] [phone] Channel Sales Director: Hayden Cartagena MD Protein Ql (U) Negative Normal NEG [facility] Comment on above: Performed By: #### U A #### [facility] [address] [place], [place] [phone] Channel Sales Director: Hayden Cartagena MD Spec. Cromwell,Ur 1.020 Normal 1.010-1.020 [facility] Comment on above: Performed By: #### U A #### [facility] [address] [place] [address] Channel Sales Director: Hayden Cartagena MD Urobilinogen,Ur Normal Normal 0.0-1.0 [facility] Comment on above: Performed By: #### U A #### [facility] [address] [place] [address] Channel Sales Director: Hayden Cartagena MD Urinalysison 09-12-2023 Bilirubin Ql (U) Negative NEGATIVE [facility] Clarity (U) Clear Clear [facility] Color (U) Yellow Yellow [facility] Glucose Test strip (U) [Mass/Vol] Negative NEGATIVE mg/dL [facility] Hemoglobin Auto test strip Ql (U) Negative NEGATIVE [facility] Interpretation and review of laboratory results Abnormal [facility] Ketones (U) [Mass/Vol] Negative NEGAT ROSA mg/dL [facility] Leukocyte esterase Test strip Ql (U) Negative NEGATIVE [facility] Nitrite Ql (U) Negative NEGATIVE [facility] pH (U) 6.0 [pH] 5.0 - 9.0 [facility] Protein (U) [Mass/Vol] Negative NEGAT ROSA mg/dL [facility] Specific gravity (U) [Rel density] Low 1.010 - 1.020 [facility] Urobilinogen Qn (U) Normal 0.0 - 1. 0 EU/dL [facility] Urinalysis, Routineon 2023 Bilirubin, SemiQt,Ur Negative Normal NEG [facility] Comment on above: Performed By: #### U A #### [facility] [address] [place] [address] Channel Sales Director: Hayden Cartagena MD Blood, Urine Negative Normal NEG [facility] Comment on above: Performed By: #### U A #### [facility] [address] [place] [address] Channel Sales Director: Hayden Cartagena MD Clarity (U) Clear Normal CLEAR [facility] Comment on above: Performed By: #### U A #### [facility] [address] [place] [address] Channel Sales Director: Hayden Cartagena MD Color (U) Yellow Normal YEL [facility] Comment on above: Performed By: #### U A #### [facility] [address] [place] [address] Dr. [place], [place] [phone] Channel Sales Director: Hayden Cartagena MD Glucose Ql (U) Negative Normal NEG [facility] Comment on above: Performed By: #### U A #### [facility] [address] [place] [address] [place] [address] Channel Sales Director: Hayden Cartagena MD Ketones Ql (U) Negative Normal NEG [facility] Comment on above: Performed By: #### U A #### [facility] [address] [place] [address] [place] [address] Channel Sales Director: Hayden Cartagena MD Leukocyte esterase Test strip Ql (U) Negative Normal NEG [facility] Comment on above: Performed By: #### U A #### [facility] [address] [place] [address] [place] [address] Channel Sales Director: Hayden Cartagena MD Nitrite,Ur Negative Normal NEG [facility] Comment on above: Performed By: #### U A #### [facility] [address] [place] [address] Dr. [place], [place] [phone] Channel Sales Director: Hayden Cartagena MD PH,Ur 6.0 Normal 5.0-9.0 [facility] Comment on above: Performed By: #### U A #### [facility] [address] [place], [place] [phone] Channel Sales Director: Hayden Cartagena MD Protein Ql (U) Negative Normal NEG [facility] Comment on above: Performed By: #### U A #### [facility] [address] [place] [address] Dr. [place], [place] 6234383 Channel Sales Director: Hayden Cartagena MD Spec. Cromwell,Ur <1.005 Low 1.010-1.020 [facility] Comment on above: Performed By: #### U A #### [facility] [address] [place] [address] Dr[place], [place] [phone] Channel Sales Director: Hayden Cartagena MD Urobilinogen,Ur Normal Normal 0.0-1.0 [facility] Comment on above: Performed By: #### U A #### [address] [place], [place] 9006583 Channel Sales Director: Hayden Cartagena MD Glucose, Whole Bloodon 09-03 Glucose [Mass/Vol] 160 mg/dL High 74-100 [facility] Urinalysis, Routineon 2023 Bilirubin, SemiQt,Ur Negative Normal NEG [facility] Comment on above: Performed By: #### U MICAO, UA #### [address] [place], [place] 1080883 Channel Sales Director: Hayden Cartagena MD Blood, Urine Negative Normal NEG [facility] Comment on above: Performed By: #### U MICAO, UA #### [facility] [address] [place] [address] Dr[place], [place] [phone] Channel Sales Director: Hayden Cartagena MD Clarity (U) Clear Normal CLEAR [facility] Comment on above: Performed By: #### U MICAO, UA #### [address] [place] [address] Channel Sales Director: Hayden Cartagena MD Color (U) Yellow Normal YEL [facility] Comment on above: Performed By: #### U MICAO, UA #### [facility] [address] [place] [address] Dr. [place], [place] 1124883 Channel Sales Director: Hayden Cartagena MD Glucose Ql (U) 1+ mg/dL Abnormal NEG [facility] Comment on above: Performed By: #### U MICAO, UA #### [facility] [address] [place] [address] Dr. [place], [place] [phone] Channel Sales Director: Hayden Cartagena MD Ketones Ql (U) Negative Normal NEG [facility] Comment on above: Performed By: #### U MICAO, UA #### [facility] [address] [place] [address] Dr. [place], [place] [phone] Channel Sales Director: Hayden Cartagena MD Leukocyte esterase Test strip Ql (U) Negative Normal NEG [facility] Comment on above: Performed By: #### U MICAO, UA #### [address] [place], [facility]83 Channel Sales Director: Hayden Cartagena MD Nitrite,Ur Negative Normal [facility] Comment on above: Performed By: #### U MICAO, UA #### [facility] [address] [place] [address] Dr. [place], [facility]83 Channel Sales Director: Hayden Cartagena MD PH,Ur 6.0 Normal 5.0-9.0 [facility] Comment on above: Performed By: #### U MICAO, UA #### [facility] [address] [place] [address] Dr. [place], [place] [phone] Channel Sales Director: Hayden Cartagena MD Protein Ql (U) Negative Normal NEG [facility] Comment on above: Performed By: #### U MICAO, UA #### [facility] [address] [place] [address] Dr. [place], [place] [phone] Channel Sales Director: Hayden Cartagena MD Spec. Cromwell,Ur <1.005 Low 1.010-1.020 [facility] Comment on above: Performed By: #### U MICAO, UA #### [facility] [address] [place], [place] 2667183 Channel Sales Director: Hayden Cartagena MD Urobilinogen,Ur Normal Normal 0.0-1.0 [facility] Comment on above: Performed By: #### U MICAO, UA #### [facility] [address] [place], [place] 2054383 Channel Sales Director: Hayden Cartagena MD Urinalysis,Microon Bacteria TRACE Abnormal NONE [facility] Comment on above: Performed By: #### U MICAO, UA #### [facility] [address] [place], [place] 9721683 Channel Sales Director: Hayden Cartagena MD Epithelial cells LM Ql (Urine sed) 5 TO 10 Normal 0-25 [facility] Comment on above: Performed By: #### U MICAO, UA #### [facility] [address] [place] [address] Dr[place], [place] 5254583 Channel Sales Director: Hayden Cartagena MD Urine RBC's None Normal 0-2 [facility] Comment on above: Performed By: #### U MICAO, UA #### [facility] [address] [place] [address] [place], [place] 9761183 Channel Sales Director: Hayden Cartagena MD Urine WBC's None Normal 0-5 [facility] Comment on above: Performed By: #### U MICAO, UA #### [facility] [address] [place], [place] [phone] Channel Sales Director: Hayden Cartagena MD Urinalysis, Routineon 2023 Bilirubin, SemiQt,Ur Negative Normal NEG [facility] Comment on above: Performed By: #### U A #### [facility] [address] [place] [address] Dr. [place], [place] [phone] Channel Sales Director: Hayden Cartagena MD Blood, Urine Negative Normal NEG [facility] Comment on above: Performed By: #### U A #### [facility] [address] [place] [address] Channel Sales Director: Hayden Cartagena MD Clarity (U) Clear Normal CLEAR [facility] Comment on above: Performed By: #### U A #### [facility] [address] [place] [address] Channel Sales Director: Hayden Cartagena MD Color (U) Yellow Normal YEL [facility] Comment on above: Performed By: #### U A #### [facility] [address] [place], [place] 4402883 Channel Sales Director: Hayden Cartagena MD Glucose Ql (U) Negative Normal NEG [facility] Comment on above: Performed By: #### U A #### [facility] [address] [place] [address] [place] [address] Channel Sales Director: Hayden Cartagena MD Ketones Ql (U) Negative Normal NEG [facility] Comment on above: Performed By: #### U A #### [facility] [address] [place] [address] Dr[place], [place] 4576783 Channel Sales Director: Hayden Cartagena MD Leukocyte esterase Test strip Ql (U) Negative Normal NEG [facility] Comment on above: Performed By: #### U A #### [facility] [address] [place] [address] [place] [address] Channel Sales Director: Hayden Cartagena MD Nitrite,Ur Negative Normal NEG [facility] Comment on above: Performed By: #### U A #### [facility] [address] [place], [place] [phone] Channel Sales Director: Hayden Cartagena MD PH,Ur 6.0 Normal 5.0-9.0 [facility] Comment on above: Performed By: #### U A #### [facility] [address] [place], [place] [phone] Channel Sales Director: Hyaden Cartagena MD Protein Ql (U) Negative Normal NEG [facility] Comment on above: Performed By: #### U A #### [facility] [address] [place] [address] Channel Sales Director: Hayden Cartagena MD Spec. Cromwell,Ur <1.005 Low 1.010-1.020 [facility] Comment on above: Performed By: #### U A #### [facility] [address] [place] [address] Channel Sales Director: Hayden Cartagena MD Urobilinogen,Ur Normal Normal 0.0-1.0 [facility] Comment on above: Performed By: #### U A #### [facility] [address] [place] [address] Channel Sales Director: Hayden Cartagena MD Microscopic Urinalysison Bacteria LM Ql (Urine sed) 1+ Abnormal None [facility] Epithelial cells LM.HPF (Urine sed) [#/Area] 0 TO 2 [facility] Interpretation and review of laboratory results Abnormal [facility] RBC LM.HPF (Urine sed) [#/Area] None [facility] WBC LM.HPF (Urine sed) [#/Area] None [facility] Urinalysison 08-24-2023 Bilirubin Ql (U) Negative NEGATIVE [facility] Clarity (U) Clear Clear [facility] Color (U) Yellow Yellow [facility] Glucose Test strip (U) [Mass/Vol] 1+ Abnormal NEGATIVE mg/dL [facility] Hemoglobin Auto test strip Ql (U) Negative NEGATIVE [facility] Interpretation and review of laboratory results Abnormal [facility] Ketones (U) [Mass/Vol] Negative NEGAT ROSA mg/dL [facility] Leukocyte esterase Test strip Ql (U) Negative NEGATIVE [facility] Nitrite Ql (U) Negative NEGATIVE [facility] pH (U) 6.0 [pH] 5.0 - 9.0 [facility] Protein (U) [Mass/Vol] Negative NEGAT ROSA mg/dL [facility] Specific gravity (U) [Rel density] Low 1.010 - 1.020 [facility] Urobilinogen Qn (U) Normal 0.0 - 1. 0 EU/dL [facility] Urinalysis, Routineon 2023 Bilirubin, SemiQt,Ur Negative Normal NEG [facility] Comment on above: Performed By: #### U RC #### [address] [address] Channel Sales Director: Claude Gonzalez MD [facility] [address] [place] [address] [place] [address] Channel Sales Director: Hayden Cartagena MD Blood, Urine Negative Normal NEG [facility] Comment on above: Performed By: #### U RC #### [address] [address] Channel Sales Director: Claude Gonzalez MD [address] [place] 8136983 Channel Sales Director: Hayden Cartagena MD Clarity (U) Clear Normal CLEAR [facility] Comment on above: Performed By: #### U RC #### [address] [address] Channel Sales Director: Claude Gonzalez MD [address] [place] [phone] Channel Sales Director: Hayden Cartagena MD Color (U) Yellow Normal YEL [facility] Comment on above: Performed By: #### U RC #### [address] [address] Channel Sales Director: Claude Gonzalez MD [facility] [address] [place] [address] [place] [address] Channel Sales Director: Hayden Cartagena MD Glucose Ql (U) 1+ mg/dL Abnormal NEG [facility] Comment on above: Performed By: #### U RC #### [place] [address] [place] [address] Channel Sales Director: Claude Gonzalez MD [address] [place] [address] Channel Sales Director: Hayden Cartagena MD Ketones Ql (U) Negative Normal NEG [facility] Comment on above: Performed By: #### U RC #### [address] [address] Channel Sales Director: Claude Gonzalez MD [address] [place] [address] Channel Sales Director: Hayden Cartagena MD Leukocyte esterase Test strip Ql (U) Negative Normal NEG [facility] Comment on above: Performed By: #### U RC #### [address] [address] Channel Sales Director: Claued Gonzalez MD [address] [place] [address] Channel Sales Director: Hayden Cartagena MD Nitrite,Ur Negative Normal NEG [facility] Comment on above: Performed By: #### U RC #### [address] [address] Channel Sales Director: Claude Gonzalez MD [facility] [address] [place] [address] [place] [address] Channel Sales Director: Hayden Cartagena MD PH,Ur 6.0 Normal 5.0-9.0 [facility] Comment on above: Performed By: #### U RC #### [address] [address] Channel Sales Director: Claude Gonzalez MD [facility] [address] [place] [address] [place] [address] Channel Sales Director: Hayden Cartaegna MD Protein Ql (U) Negative Normal NEG [facility] Comment on above: Performed By: #### U RC #### [address] [place] [address] Channel Sales Director: Claude Gonzalez MD [address] [place] 8136983 Channel Sales Director: Hayden Cartagena MD Spec. Cromwell,Ur <1.005 Low 1.010-1.020 [facility] Comment on above: Performed By: #### U RC #### [address] [address] Channel Sales Director: Claude Gonzalez MD [address] [place] [phone] Channel Sales Director: Hayden Cartagena MD Urobilinogen,Ur Normal Normal 0.0-1.0 [facility] Comment on above: Performed By: #### U RC #### [address] [address] Channel Sales Director: Claude Gonzalez MD [address] [place] [address] Channel Sales Director: Hayden Cartagena MD Urinalysis,Microon 4 Bacteria 1+ Abnormal NONE [facility] Comment on above: Performed By: #### U RC #### [address] [address] Channel Sales Director: Claude Gonzalez MD [facility] [address] [place] [address] [place] [address] Channel Sales Director: Hayden Cartagena MD Epithelial cells LM Ql (Urine sed) 0 TO 2 Normal 0-25 [facility] Comment on above: Performed By: #### U RC #### [address] [address] Channel Sales Director: Claude Gonzalez MD [facility] [address] [place] [address] Dr. [place] [phone] Channel Sales Director: Hayden Cartagena MD Urine RBC's None Normal 0-2 [facility] Comment on above: Performed By: #### U RC #### [facility] [address] [place] [address] Channel Sales Director: Claude Gonzalez MD [facility] [address] [place] [address] [place] [address] Channel Sales Director: Hayden Cartagena MD Urine WBC's None Normal 0-5 [facility] Comment on above: Performed By: #### U RC #### [facility] [address] [place] [address] Channel Sales Director: Claude Gonzalez MD [address] [place] [address] Channel Sales Director: Hayden Cartagena MD Cult,Urineon 07-01-2023 Cult,Urine Specimen Description .CLEAN CATCH URINE Culture NO SIGNIFICANT GROWTH Report Status FINAL 07/01/2023 Normal [facility] Comment on above: Performed By: #### U RC #### [facility] [address] [place] [address] Channel Sales Director: Claude Gonzalez MD [address] [place] [address] Channel Sales Director: Hayden Cartagena MD Urinalysis w/ Microon 2023 Bilirubin, SemiQt,Ur Negative Normal NEG [facility] Comment on above: Performed By: #### U AMIC #### [facility] [address] [place] [address] [place] [address] Channel Sales Director: Hayden Cartagena MD Blood, Urine Negative Normal NEG [facility] Comment on above: Performed By: #### U AMIC #### [address] [place] [address] Channel Sales Director: Hayden Cartagena MD Clarity (U) Clear Normal CLEAR [facility] Comment on above: Performed By: #### U AMIC #### [facility] [address] [place] [address] Dr. [place] [phone] Channel Sales Director: Hayden Cartagena MD Color (U) Yellow Normal YEL [facility] Comment on above: Performed By: #### U AMIC #### [facility] [address] [place], [place] [id number] Channel Sales Director: Hayden Cartagena MD Epithelial cells LM Ql (Urine sed) 2 TO 5 Normal 0-25 [facility] Comment on above: Performed By: #### U AMIC #### [facility] [address] [place], [place] [id number] Channel Sales Director: Hayden Cartagena MD Glucose Ql (U) Negative Normal NEG [facility] in Hospital Comment on above: Performed By: #### U AMIC #### [facility] [address] [place], [place] [id number] Channel Sales Director: Hayden Cartagena MD Ketones Ql (U) Negative Normal NEG [facility] Hospital Comment on above: Performed By: #### U AMIC #### [facility] [address] [place], [place] [id number] Channel Sales Director: Hayden Cartagena MD Leukocyte esterase Test strip Ql (U) Negative Normal NEG [facility] Comment on above: Performed By: #### U AMIC #### [facility] [address] [place], [place] [id number] Channel Sales Director: Hayden Cartagena MD Nitrite,Ur Negative Normal NEG [facility] Comment on above: Performed By: #### U AMIC #### [facility] [address] [place], [place] [phone] Channel Sales Director: Hayden Cartagena MD PH,Ur 6.0 Normal 5.0-9.0 [facility] Comment on above: Performed By: #### U AMIC #### [facility] [address] [place], [place] [id number] Channel Sales Director: Hayden Cartagena MD Protein Ql (U) Negative Normal NEG [facility] Comment on above: Performed By: #### U AMIC #### [facility] [address] [place] [address] [place]. [place], [place] [phone] Channel Sales Director: Hayden Cartagena MD Spec. [place],Ur 1.010 Normal 1.010-1.020 [facility] Comment on above: Performed By: #### U AMIC #### [facility] [address] [place] [address] Channel Sales Director: Hayden Cartagena MD Urine RBC's None Normal 0-2 [facility] Comment on above: Performed By: #### U AMIC #### [address] [place] [id number] Channel Sales Director: Hayden Cartagena MD Urine WBC's None Normal 0-5 [facility] Comment on above: Performed By: #### U AMIC #### [address] [place], [place] [phone] Channel Sales Director: Hayden Cartagena MD Urobilinogen,Ur Normal Normal 0.0-1.0 [facility] Comment on above: Performed By: #### U AMIC #### [address] [place], [place] [id number] Channel Sales Director: Hayden Cartagena MD Cult,Urineon 05-03-2023 Cult,Urine Specimen [...] Tobramycin <=1 SUSCEPTIBLE Trimethoprim/Sulfa <=20 SUSCEPTIBLE Susceptible [facility] Comment on above: Performed By: #### U RC #### [address] [place] [address] Channel Sales Director: Claude Gonzalez MD [facility] [address] [place] [address] [place] [address] Channel Sales Director: Hayden Cartagena MD HIV Ag/Abon 05-02-2023 HIV Ag/Ab Non-Reactive Normal NR [facility] Comment on above: Result Comment: No l aboratory evidence of HIV infection. If acute HIV infection is suspected, consider testing for HIV-1 RNA. Performed By: #### U RC #### [address] [address] Channel Sales Director: Claude Gonzalez MD [address] [place] [address] Channel Sales Director: Hayden Cartagena MD T.pallidum Ab Screenon 05-01 T.pallidum Ab Screen Non-Reactive Normal NR [facility] Comment on above: Result Comment: T. pallidum antibodies are not detected. There is no serological evidence of infection with T. pallidum (early primary syphilis cannot be excluded). Retest in 2-4 weeks if syphilis is clinically suspect. Performed By: #### U RC #### [address] [place] [address] Channel Sales Director: Claude Gonzalez MD [facility] [address] [place] [address] [place] [phone] Channel Sales Director: Hayden Cartagena MD CBC with Auto Differentialon 05-01-2023 Basophils (Bld) [#/Vol] 0.03 10*3/uL [facility] Basophils/100 WBC (Bld) 0 % 0 - 2 % [facility] Eosinophils (Bld) [#/Vol] [facility] Eosinophils/100 WBC (Bld) 0 % Low 1 - 4 % [facility] Erythrocyte distribution width (RBC) [Ratio] 12.2 % 11.8 - 14.4 % [facility] Hematocrit (Bld) [Volume fraction] 36.2 % Low 36.3 - 47.1 % [facility] Hemoglobin (Bld) [Mass/Vol] 12.1 g/dL 11.9 - 15.1 g/dL [facility] Immature granulocytes (Bld) [#/Vol] [facility] Immature granulocytes/100 WBC (Bld) 0 % 0 [facility] Interpretation and review of laboratory results Abnormal [facility] Lymphocytes/100 WBC (Bld) 19 % Low 24 - 43 % [facility] Lymphocytes/100 WBC (Bld) 1.62 % [facility] MCH (RBC) [Entitic mass] 32.1 pg 25.2 - 33.5 pg [facility] MCHC (RBC) [Mass/Vol] 33.4 g/dL 28.4 - 34.8 g/dL [facility] MCV (RBC) [Entitic vol] 96.0 fL 82.6 - 102.9 fL [facility] Monocytes/100 WBC (Bld) 6 % 3 - 12 % [facility] Monocytes/100 WBC (Bld) 0.51 % [facility] Neutrophils/100 WBC (Bld) 75 % High 36 - 65 % [facility] Nucleated RBC/100 WBC (Bld) [Ratio] 0.0 % 0.0 per 100 WBC [facility] Platelet mean volume (Bld) [Entitic vol] 10.3 fL 8.1 - 13.5 fL [facility] Platelets (Bld) [#/Vol] 201 10*3/uL [facility] RBC (Bld) [#/Vol] 3.77 10*6/uL Low 3.95 - 5.1 1 m/uL [facility] Segmented neutrophils/100 WBC (Bld) 6.24 % [facility] WBC other (Bld) [#/Vol] 8.4 [facility] CBC with Diffon 05-01-2023 Abs. Basophil 0.03 k/uL Normal 0.00-0.[address] [facility] Comment on above: Performed By: #### C DP #### [address] [place] [phone] Channel Sales Director: Hayden Cartagena MD #### LISA, HIVCMB, AHCV, TREP, GLYHGB, HBS #### [address] [address] Channel Sales Director: Claude Gonzalez MD Abs. Eosinophil <0.03 Normal 0.00-0.44 [facility] Comment on above: Performed By: #### C DP #### [address] [place] [phone] Channel Sales Director: Hayden Cartagena MD #### LISA, HIVCMB, AHCV, TREP, GLYHGB, HBS #### [place] [address] Channel Sales Director: Claude Gonzalez MD Abs.Imm.Granulocyte <0.03 Normal 0.00-0.30 [facility] Comment on above: Performed By: #### C DP #### [address] [place] 8136983 Channel Sales Director: Hayden Cartagena MD #### LISA, HIVCMB, AHCV, TREP, GLYHGB, HBS #### [place] [address] Channel Sales Director: Claude Gonzalez MD Abs.Neutrophil (Seg) 6.24 k/uL Normal 1.50-8.10 [facility] Comment on above: Performed By: #### C DP #### [address] [place] 8136983 Channel Sales Director: Hayden Cartagena MD #### LISA, HIVCMB, AHCV, TREP, GLYHGB, HBS #### [address] [phone] Channel Sales Director: Claude Gonzalez MD Basophils/100 WBC (Bld) 0 % Normal 0-2 [facility] Comment on above: Performed By: #### C DP #### [address] [place] 8136983 Channel Sales Director: Hayden Cartagena MD #### LISA, HIVCMB, AHCV, TREP, GLYHGB, HBS #### [address] [id number] Channel Sales Director: Claude Gonzalez MD Eosinophils/100 WBC (Bld) 0 % Low 1-4 [facility] Comment on above: Performed By: #### C DP #### [address] [place] 8136983 Channel Sales Director: Hayden Cartagena MD #### LISA, HIVCMB, AHCV, TREP, GLYHGB, HBS #### [place] [id number] Channel Sales Director: Claude Gonzalez MD Erythrocyte distribution width (RBC) [Ratio] 12.2 % Normal 11.8-14.4 [facility] Comment on above: Performed By: #### C DP #### [address] [place] 8136983 Channel Sales Director: Hayden Cartagena MD #### LISA, HIVCMB, AHCV, TREP, GLYHGB, HBS #### [address] [phone] Channel Sales Director: Claude Gonzalez MD Hematocrit (Bld) [Volume fraction] 36.2 % Low 36.3-47.1 [facility] Comment on above: Performed By: #### C DP #### [address] [place] 8136983 Channel Sales Director: Hayden Cartagena MD #### LISA, HIVCMB, AHCV, TREP, GLYHGB, HBS #### [address] [place] [address] Channel Sales Director: Claude Gonzalez MD Hemoglobin (Bld) [Mass/Vol] 12.1 g/dL Normal 11.9-15.1 [facility] Comment on above: Performed By: #### C DP #### [address] [place] 8136983 Channel Sales Director: Hayden Cartagena MD #### LISA, HIVCMB, AHCV, TREP, GLYHGB, HBS #### [place] [address] Channel Sales Director: Claude Gonzalez MD Immature granulocytes/100 WBC (Bld) 0 % Normal 0 [facility] Comment on above: Performed By: #### C DP #### [address] [place] [address] Channel Sales Director: Hayden Cartagena MD #### LISA, HIVCMB, AHCV, TREP, GLYHGB, HBS #### [place] [address] Channel Sales Director: Claude Gonzalez MD Lymphocytes (Bld) [#/Vol] 1.62 10*3/uL Normal 1.10-3.70 [facility] Comment on above: Performed By: #### C DP #### [address] [place] 8136983 Channel Sales Director: Hayden Cartagena MD #### LISA, HIVCMB, AHCV, TREP, GLYHGB, HBS #### [place] [address] Channel Sales Director: Claude Gonzalez MD Lymphocytes/100 WBC (Bld) 19 % Low 24-43 [facility] Comment on above: Performed By: #### C DP #### [address] [place] [phone] Channel Sales Director: Hayden Cartagena MD #### LISA, HIVCMB, AHCV, TREP, GLYHGB, HBS #### [address] [phone] Channel Sales Director: Claude Gonzalez MD MCH (RBC) [Entitic mass] 32.1 pg Normal 25.2-33.5 [facility] Comment on above: Performed By: #### C DP #### [address] [place] 8136983 Channel Sales Director: Hayden Cartagena MD #### LISA, HIVCMB, AHCV, TREP, GLYHGB, HBS #### [place] [phone] Channel Sales Director: Claude Gonzalez MD MCHC (RBC) [Mass/Vol] 33.4 g/dL Normal 28.4-34.8 [facility] Comment on above: Performed By: #### C DP #### [address] [place] 8136983 Channel Sales Director: Hayden Cartagena MD #### LISA, HIVCMB, AHCV, TREP, GLYHGB, HBS #### [place] [address] Channel Sales Director: Claude Gonzalez MD MCV (RBC) [Entitic vol] 96.0 fL Normal 82.6-102.9 [facility] Comment on above: Performed By: #### C DP #### [address] [place] 8136983 Channel Sales Director: Hayden Cartagena MD #### LISA, HIVCMB, AHCV, TREP, GLYHGB, HBS #### [address] [phone] Channel Sales Director: Claude Gonzalez MD Monocytes (Bld) [#/Vol] 0.51 10*3/uL Normal 0.10-1.20 [facility] Comment on above: Performed By: #### C DP #### [address] [place] 8136983 Channel Sales Director: Hayden Cartagena MD #### LISA, HIVCMB, AHCV, TREP, GLYHGB, HBS #### [place] [address] Channel Sales Director: Claude Gonzalez MD Monocytes/100 WBC (Bld) 6 % Normal 3-12 [facility] Comment on above: Performed By: #### C DP #### [address] [place] 8136983 Channel Sales Director: Hayden Cartagena MD #### LISA, HIVCMB, AHCV, TREP, GLYHGB, HBS #### [place] [address] Channel Sales Director: Claude Gonzalez MD Neutrophil (Seg) 75 % High 36-65 [facility] Comment on above: Performed By: #### C DP #### [address] [place] 8136983 Channel Sales Director: Hayden Cartagena MD #### LISA, HIVCMB, AHCV, TREP, GLYHGB, HBS #### [place] [address] Channel Sales Director: Claude Gonzalez MD NRBC Automated 0.0 per 100 WBC Normal 0.0 [facility] Comment on above: Performed By: #### C DP #### [address] [place] 8136983 Channel Sales Director: Hayden Cartagena MD #### LISA, HIVCMB, AHCV, TREP, GLYHGB, HBS #### [address] [phone] Channel Sales Director: Claude Gonzalez MD Platelet mean volume (Bld) [Entitic vol] 10.3 fL Normal 8.1-13.5 [facility] Comment on above: Performed By: #### C DP #### [facility] [address] [place] [address] Dr. [place] [phone] Channel Sales Director: Hayden Cartagena MD #### LISA, HIVCMB, AHCV, TREP, GLYHGB, HBS #### [address] [phone] Channel Sales Director: Claude Gonzalez MD Platelets (Bld) [#/Vol] 201 10*3/uL Normal 138-453 [facility] Comment on above: Performed By: #### C DP #### [address] [place] 8136983 Channel Sales Director: Hayden Cartagena MD #### LISA, HIVCMB, AHCV, TREP, GLYHGB, HBS #### [address] [address] Channel Sales Director: Claude Gonzalez MD RBC (Bld) [#/Vol] 3.77 10*6/uL Low 3.95-5.11 [facility] Comment on above: Performed By: #### C DP #### [address] [place] 8136983 Channel Sales Director: Hayden Cartagena MD #### LISA, HIVCMB, AHCV, TREP, GLYHGB, HBS #### [address] [phone] Channel Sales Director: Claude Gonzalez MD WBC (Bld) [#/Vol] 8.4 10*3/uL Normal 3.5-11.3 [facility] Comment on above: Performed By: #### C DP #### [address] [place] 8136983 Channel Sales Director: Hayden Cartagena MD #### LISA, HIVCMB, AHCV, TREP, GLYHGB, HBS #### [address] [place] [address] Channel Sales Director: Claude Gonzalez MD Hemoglobin A1Con 05-01-2023 Average glucose Estimated from glycated hemoglobin (Bld) [Mass/Vol] 85 mg/dL [facility] Comment on above: The ADA and AACC rec ommend providing the estimated average glucose result to permit better patient understanding of their HBA1c result. HbA1c (Bld) [Mass fraction] 4.6 % 4.0 - 6.0 % [facility] Glucose [Mass/Vol] 85 mg/dL Normal [facility] Comment on above: Result Comment: The ADA and AACC recommend providing the estimated average glucose result to permit better patient understanding of their HBA1c result. Performed By: #### U RC #### [address] [address] Channel Sales Director: Claude Gonzalez MD [facility] [address] [place] [address] [place] [address] Channel Sales Director: Hayden Cartagena MD HbA1c (Bld) [Mass fraction] 4.6 % Normal 4.0-6.0 [facility] Comment on above: Performed By: #### U RC #### [address] [address] Channel Sales Director: Claude Gonzalez MD [facility] [address] [place] [address] [place] [address] Channel Sales Director: Hayden Cartagena MD Hep B Surf Agon 7 Hep B Surf Ag Non-Reactive Normal NR [facility] Comment on above: Performed By: #### U RC #### [address] [address] Channel Sales Director: Claude Gonzalez MD [facility] [address] [place] [address] [place] [address] Channel Sales Director: Hayden Cartagena MD Hep C Abon 05-01-2023 Hep C Ab Non-Reactive Normal NR [facility] Comment on above: Result Comment: [...] PCR. Performed By: #### C DP #### [facility] [address] [place] [address] [place] [address] Channel Sales Director: Hayden Cartagena MD #### LISA, HIVCMB, AHCV, TREP, GLYHGB, HBS #### [facility] [address] [place] [address] Channel Sales Director: Claude Gonzalez MD Hepatitis B Surface Antigeno n 05-01-2023 HBV surface Ag IA Ql Non-Reactive NONREACTIVE [facility] Hepatitis C Antibodyon 04-30 HCV Ab IA Ql Non-Reactive NONREACTIVE [facility] Comment on above: The hepatitis [...] RNA by PCR. No Panel Informationon 04-30 [facility] Rubella Ab, IgGon 05-01-2023 Rubella Ab, IgG >500.0 Normal [facility] Comment on above: Result Comment: REFERENCE RANGE: <5.0 NON-REACTIVE (non-immune) 5.0 TO 9.9 EQUIVOCAL >=10.0 REACTIVE (immune) Performed By: #### U RC #### [facility] [address] [place], [place] [id number] Channel Sales Director: Claude Gonzalez MD [facility] [address] [place] [address] [place] [address] Channel Sales Director: Hayden Cartagena MD Rubella antibody, IgGon Rubella virus IgG IA Ql IU/mL [facility] Comment on above: REFERENCE RANGE: <5.0 NON-REACTIVE (non-immune) 5.0 TO 9.9 EQUIVOCAL >=10.0 REACTIVE (immune) [facility] TYPE AND SCREENon 05-01-2023 ABO and Rh group Nom (Bld) Blood group O Rh(D) negative [facility] Blood Bank Sample Expiration 05/04/2023,2359 [facility] Blood group antibodies identified Nom Negative [facility] Type + Screenon 05-01-2023 Type + Screen Sample Expiration 05/04/2023,2359 ABO/Rh(D) O NEGATIVE Antibody Screen NEGATIVE Normal [facility] Comment on above: Performed By: #### T YS #### [facility] [address] [place] [address] [place] [address] Channel Sales Director: Hayden Cartagena MD CBC with Auto Differentialon 08-03-2022 Basophils (Bld) [#/Vol] 0.04 10*3/uL [facility] Basophils/100 WBC (Bld) 0 % 0 - 2 % B [facility] Eosinophils (Bld) [#/Vol] [facility] Eosinophils/100 WBC (Bld) 0 % Low 1 - 4 % [facility] Erythrocyte distribution width (RBC) [Ratio] 12.2 % 11.8 - 14.4 % [facility] Hematocrit (Bld) [Volume fraction] 39.4 % 36.3 - 47.1 % [facility] Hemoglobin (Bld) [Mass/Vol] 13.2 g/dL 11.9 - 15.1 g/dL [facility] Immature granulocytes (Bld) [#/Vol] [facility] Immature granulocytes/100 WBC (Bld) 0 % 0 [facility] Interpretation and review of laboratory results Abnormal [facility] Lymphocytes/100 WBC (Bld) 17 % Low 24 - 43 % [facility] Lymphocytes/100 WBC (Bld) 1.86 % [facility] MCH (RBC) [Entitic mass] 32.1 pg 25.2 - 33.5 pg [facility] MCHC (RBC) [Mass/Vol] 33.5 g/dL 28.4 - 34.8 g/dL [facility] MCV (RBC) [Entitic vol] 95.9 fL 82.6 - 102.9 fL [facility] Monocytes/100 WBC (Bld) 4 % 3 - 12 % [facility] Monocytes/100 WBC (Bld) 0.42 % [facility] Neutrophils/100 WBC (Bld) 79 % High 36 - 65 % [facility] NRBC Automated 0.0 0.0 per 100 WBC [facility] Platelet mean volume (Bld) [Entitic vol] 10.5 fL 8.1 - 13.5 fL [facility] Platelets (Bld) [#/Vol] 213 10*3/uL [facility] RBC (Bld) [#/Vol] 4.11 10*6/uL 3.95 - 5.1 1 m/uL [facility] Segmented neutrophils/100 WBC (Bld) 8.49 % High [facility] WBC other (Bld) [#/Vol] 10.8 [facility] CMPon 08-03-2022 Albumin [Mass/Vol] 4.6 g/dL 3.5 - 5.2 g/dL [facility] Albumin/Globulin [Mass ratio] 1.5 {ratio} 1.0 - 2.5 [facility] ALP [Catalytic activity/Vol] 79 U/L 35 - 104 U/L [facility] ALT [Catalytic activity/Vol] 9 U/L 5 - 33 U/L [facility] Anion gap [Moles/Vol] 11 mmol/L 9 - 17 mmol/L [facility] AST [Catalytic activity/Vol] 13 U/L NINF - 32 U/L [facility] Bilirubin [Mass/Vol] 1.1 mg/dL 0.3 - 1 .2 mg/dL [facility] Calcium [Mass/Vol] 10.0 mg/dL 8.6 - 10. 4 mg/dL [facility] Chloride [Moles/Vol] 104 mmol/L 98 - 10 7 mmol/L [facility] CO2 [Moles/Vol] 26 mmol/L 20 - 31 mmol/L [facility] Creatinine [Mass/Vol] 0.68 mg/dL 0.50 - 0.90 mg/dL [facility] GFR/1.73 sq M.predicted MDRD (S/P/Bld) [Vol rate/Area] - PINF [facility] Comment on above: These results [...] [Mass/Vol] 90 mg/dL 70 - 99 mg/dL [facility] Interpretation and review of laboratory results Abnormal [facility] Potassium [Moles/Vol] 3.4 mmol/L Low 3.7 - 5.3 mmol/L [facility] Protein [Mass/Vol] 7.7 g/dL 6.4 - 8.3 g/dL [facility] Sodium [Moles/Vol] 141 mmol/L 135 - 144 mmol/L [facility] Urea nitrogen [Mass/Vol] 6 mg/dL 6 - 20 mg/dL [facility] Urea nitrogen/Creatinine [Mass ratio] 9 [...] superficial soft tissues show no acute process. [facility] Cody Posey MD - 08/03/2022 EXAMINATION: CT [...] urinary tract calculi. 3. No bowel obstruction. [employer] Work Phone: Radiology Study observation (narrative) [employer] Work Phone: CT ABDOMEN PELVIS WO CONTRAS T Additional Contrast? NoneOrdered By: Cody Gregg on 08-03-2022 [employer] Work Phone: Microscopic Urinalysison Bacteria LM Ql (Urine sed) 4+ Abnormal None [employer] Epithelial cells LM.HPF (Urine sed) [#/Area] 10 TO [address] [facility] Interpretation and review of laboratory results Abnormal [employer] RBC LM.HPF (Urine sed) [#/Area] 10 TO 20 [employer] WBC LM.HPF (Urine sed) [#/Area] [address] [facility] Urinalysis with Reflex to Cu ltureon 08-03-2022 Bilirubin Ql (U) Negative NEGATIVE [employer] Clarity (U) Cloudy Abnormal Clear [facility] Color (U) Yellow Yellow [facility] Glucose Test strip (U) [Mass/Vol] Negative NEGATIVE [facility] Hemoglobin Auto test strip Ql (U) 3+ Abnormal NEGATIVE [facility] Interpretation and review of laboratory results Abnormal [employer] Ketones (U) [Mass/Vol] Negative NEGATIVE [employer] Leukocyte esterase Test strip Ql (U) SMALL Abnormal NEGATIVE [employer] Nitrite Ql (U) Positive Abnormal NEGATIVE [employer] pH (U) 6.0 [pH] 5.0 - 9.0 [employer] Protein (U) [Mass/Vol] 2+ Abnormal NEGATIVE [employer] Specific gravity (U) [Rel density] 1.025 High 1.010 - 1.020 [facility] Urobilinogen Qn (U) Normal Normal [facility]WAT KAMARA [facility] hCG, quantitative, on 08-03-2022 hCG Quant NINF [facility] Comment on above: Non-preg premeno <=5 Postmeno <=8 Male <=3 If HCG results do not concur with clinical observations, additional testing to confirm results is recommended. [facility] JASMINA DIGITAL DIAGNOSTIC BILATERALon 06-03-2022 Radiology Study observation (narrative) SARWAT MARROQUIN [facility] Work Phone: No Panel Informationon 06-03 1. Negative bilateral mammogram. 2. No evidence for a discrete abscess or cellulitis in the periareolar right breast, for which clinical follow-up is recommended. BI-RADS 2 BIRADS: BIRADS - CATEGORY 2 Benign Findings. OVERALL ASSESSMENT - BENIGN A letter of notification will be sent to the patient regarding the results. [employer] recommends annual mammograms for women 40 years and older. [facility] CONSOLIDATED EXAMINATION: DIAGNOSTIC DIGITAL BILATERAL BREASTS [...] Panel InformationOrdered By: Matt Sharma on 06-03-2022 [facility] [employer] Work Phone: US BREAST LIMITED RIGHTon Radiology Study observation (narrative) SARWAT HOLDERO URS [facility] [employer] Work Phone: CBC with Auto Differentialon 04-24-2022 Absolute Eos # [facility] Absolute Immature Granulocyte 0.05 [facility] Absolute Lymph # 0.56 Low [facility] Absolute Payne # 0.78 [facility] RS [facility] Basophils (Bld) [#/Vol] 0.04 10*3/uL [facility] Basophils/100 WBC (Bld) 0 % 0 - 2 % [facility] Eosinophils/100 WBC (Bld) 0 % Low 1 - 4 % [facility] Hematocrit (Bld) [Volume fraction] 43.7 % 36.3 - 47.1 % [facility] Hemoglobin (Bld) [Mass/Vol] 15.6 g/dL High 11.9 - 15.1 g/dL [facility] Immature granulocytes/100 WBC (Bld) 0 % 0 [facility] Interpretation and review of laboratory results Abnormal [facility] Lymphocytes/100 WBC (Bld) 4 % Low 24 - 43 % [facility] MCH (RBC) [Entitic mass] 33.1 pg 25.2 - 33.5 pg [facility] MCHC (RBC) [Mass/Vol] 35.7 g/dL High 28.4 - 34.8 g/dL [facility] MCV (RBC) [Entitic vol] 92.8 fL 82.6 - 102.9 fL [facility] Monocytes/100 WBC (Bld) 5 % 3 - 12 % [facility] NRBC Automated 0.0 0.0 per 100 WBC [facility] Platelet distribution width (Bld) [Ratio] 12.3 % 11.8 - 14.4 % [facility] Platelet mean volume (Bld) [Entitic vol] 10.5 fL 8.1 - 13.5 fL [facility] Platelets (Bld) [#/Vol] 174 10*3/uL [facility] RBC (Bld) [#/Vol] 4.71 10*6/uL 3.95 - 5.1 1 m/uL [facility] Segmented neutrophils/100 WBC (Bld) 91 % High 36 - 65 % [facility] Segs Absolute 13.82 High [facility] WBC (Bld) [#/Vol] 15.3 10*3/uL High [facility] CMPon 04-24-2022 Albumin [Mass/Vol] 4.8 g/dL 3.5 - 5.2 g/dL [facility] Albumin/Globulin [Mass ratio] 1.6 {ratio} 1.0 - 2.5 [facility] ALP [Catalytic activity/Vol] 87 U/L 35 - 104 U/L [facility] ALT [Catalytic activity/Vol] 19 U/L 5 - 33 U/L [facility] Anion gap [Moles/Vol] 17 mmol/L 9 - 17 mmol/L [facility] AST [Catalytic activity/Vol] 23 U/L NINF - 32 U/L [facility] Bilirubin [Mass/Vol] 1.0 mg/dL 0.3 - 1 .2 mg/dL [facility] Calcium [Mass/Vol] 10.4 mg/dL 8.6 - 10. 4 mg/dL [facility] Chloride [Moles/Vol] 105 mmol/L 98 - 10 7 mmol/L [facility] CO2 [Moles/Vol] 19 mmol/L Low 20 - 31 mmol/L [facility] Creatinine [Mass/Vol] 0.84 mg/dL 0.50 - 0.90 mg/dL [facility] GFR/1.73 sq M.predicted MDRD (S/P/Bld) [Vol rate/Area] - PINF [facility] Comment on above: These results [...] 151 mg/dL High 70 - 99 mg/dL [facility] scrible Interpretation and review of laboratory results Abnormal [facility] scrible Potassium [Moles/Vol] 3.9 mmol/L 3.7 - 5.3 mmol/L [facility] scrible Protein [Mass/Vol] 7.8 g/dL 6.4 - 8.3 g/dL [facility] scrible Sodium [Moles/Vol] 141 mmol/L 135 - 144 mmol/L [facility] scrible Urea nitrogen [Mass/Vol] 9 mg/dL 6 - 20 mg/dL [facility] U[facility] nitrogen/Creatinine (Bld) [Mass ratio] 11 9 - 20 [facility] scrible CT ABDOMEN PELVIS W IV CONTR AST [...] pathologic adenopathy. Bones/Soft Tissues: No acute abnormality MH Rogelio Cantor MD - 04/24/2022 EXAMINATION: CT [...] Otherwise, no acute intra-abdominal or pelvic abnormality [employer] Work Phone: Radiology Study observation (narrative) [employer] Work Phone: CT ABDOMEN PELVIS W IV CONTR AST Additional Contrast? NoneOrdered By: Rogelio Lima on 04-24-2022 [employer] Work Phone: Lactic Acidon 04-24-2022 Lactate (P samantha) [Moles/Vol] 2.1 mmol/L 0.5 - 2.2 mmol/L [employer] Lipaseon 04-24-2022 Lipase [Catalytic activity/Vol] 24 U/L 13 - 60 U/L [facility] Microscopic Urinalysison Bacteria, UA 1+ Abnormal None [facility] Epithelial Cells UA 5 TO 10 [facility] Interpretation and review of laboratory results Abnormal [facility] Mucus, UA 1+ Abnormal None [facility] RBC clumps Auto (Urine sed) [#/Area] None [facility] WBC, UA 0 TO 2 [facility] No Panel Informationon 04-24 [facility] Urinalysison 04-24-2022 Bilirubin Urine Negative NEGATIVE [facility] Color, UA Yellow Yellow [facility] Glucose Auto test strip (U) [Mass/Vol] Negative NEGATIVE [facility] Interpretation and review of laboratory results Abnormal [facility] Ketones (U) [Mass/Vol] 2+ Abnormal NEGATIVE [facility] Leukocyte esterase Auto test strip Ql (U) Negative NEGATIVE [facility] Nitrite Auto test strip Ql (U) Negative NEGATIVE [facility] Protein (U) [Mass/Vol] 5.0 - 9.0 [facility] Protein (U) [Mass/Vol] Negative NEGATIVE [facility] Specific [place], UA 1.010 1.010 - 1.020 [facility] Turbidity UA SLIGHTLY CLOUDY Abnormal Clear [facility] Urine Hgb Negative NEGATIVE [facility] Urobilinogen, Urine Normal Normal [facility] , urineon 3 Beta HCG ( test) Ql (U) Negative NEGATIVE [facility] Comment on above: Specimens with hCG l evels near the threshold of the test (25 mIU/mL) may give a negative or indeterminate result. In such cases, another test should be performed with a new specimen in 48-72 hours. If early is suspected clinically in this setting, correlation with quantitative serum b-hCG level is suggested. [employer] has confirmed the use of plasma for this test. This has not been cleared or approved by the U.S. Food and Drug Administration. The FDA has determined that such clearance is not necessary. [facility] Cholesterol [Mass/volume] in Serum or PlasmaOrdered By: Feliberto Faust on 10-27-2021 Cholesterol [Mass/Vol] 102 mg/dL 140-200 [facility] Comment on above: Chol less than 200 m g/dl low risk Chol 201-239 mg/dl borderline risk Chol 240 mg/dl and greater high risk Cholesterol in LDL Calc [Mas s/Vol]Ordered By: Feliberto Faust on 10-27-2021 Cholesterol in LDL [Mass/Vol] 58 mg/dL 0-100 [facility] Comment on above: LDL ATP III CLASSIFI CATION LDL less than 100 mg/dL Optimal LDL 100-129 mg/dL Near or above optimal LDL 130-159 mg/dL Borderline high LDL 160-189 mg/dL High LDL greater than 189 mg/dL Very high Cholesterol in VLDL Calc [Ma ss/Vol]Ordered By: Feliberto Faust on 10-27-2021 Cholesterol in VLDL [Mass/Vol] 13 mg/dL [facility] ECG 12 lead ECGon 10-27-2021 ECG 12 lead ECG [place] [address] Electrocardiograph Report Signed Patient: Bennett Vaughn MR#: [id number] 7 : 1995 Acct:[id number] Age/Sex: 26 / F ADM Date: 10/26/21 Loc: Room: [address] [place] [address] Type: DIS IN Attending Dr: Feliberto Faust [...] : 416 ms Sinus bradycardia with short IL Otherwise normal ECG When compared with ECG of 10-APR-2019 09:44, Vent. rate has decreased BY 29 BPM Confirmed by PAYAM LIVINGSTON DO ([id number]) on 10/27/2021 1:03:16 PM Referred By: Electronically Signed By:PAYAM LIVINGSTON DO Transcribed By: MUS Signed By Payam Livingston DO 10/27 1303 Normal [facility] Lipid Panelon 10-27-2021 Cholesterol [Mass/Vol] 102 mg/dL Low 140-200 [facility] Comment on above: Result Comment: Chol less than 200 mg/dl low risk Chol 201-239 mg/dl borderline risk Chol 240 mg/dl and greater high risk Performed By: #### L IPID, TSH3 wRFLX, [id number] #### [facility] [address] [id number] [facility] Cholesterol in HDL [Mass/Vol] 30 mg/dL Low 35-85 [facility] Comment on above: Result Comment: HDL CHOL ATP-III CLASSIFICATION Cardiovascular Risk HDL > or equal to 60 mg/dL LOW HDL < 40 mg/dL HIGH Performed By: #### L IPID, TSH3 wRFLX, [id number] #### [facility] [address] Cholesterol.total/Fanny sterol in HDL [Mass ratio] 3.4 {ratio} Normal <5.0 [facility] Comment on above: Performed By: #### L IPID, TSH3 wRFLX, [id number] #### [facility] [address] LDL Cholesterol,Calculated 58 mg/dL Normal 0-100 [facility] Comment on above: Result Comment: LDL ATP III CLASSIFICATION LDL less than 100 mg/dL Optimal LDL 100-129 mg/dL Near or above optimal LDL 130-159 mg/dL Borderline high LDL 160-189 mg/dL High LDL greater than 189 mg/dL Very high Performed By: #### L IPID, TSH3 wRFLX, [id number] #### [facility] [address] [place] [id number] [place] Triglyceride w/Reflex 68 mg/dL Normal 35-149 [facility] Comment on above: Result Comment: TRIG ATP III CLASSIFICATION TRIG less than 150 mg/dL Normal TRIG 150-199 mg/dL Borderline high TRIG 200-500 mg/dL High TRIG greater than 500 mg/dL Very high Standard traceable to the Center for Disease Conrtrol and Prevention (CDC) test method. Performed By: #### L IPID, TSH3 wRFLX, [id number] #### [facility] [address] VLDL CHOLESTEROL 13 mg/dL Normal [facility] Comment on above: Performed By: #### L IPID, TSH3 wRFLX, [id number] #### [facility] [address] No Panel InformationOrdered By: Feliberto Faust on 10-27-2021 25-Hydroxy Vitamin D Total 36.4 ng/mL 30-100 [facility] Comment on above: VITAMIN D STATUS 25( [...] Cholesterol in HDL [Mass/Vol] 30 mg/dL 35-85 [facility] Comment on above: HDL CHOL ATP-III CLA SSIFICATION Cardiovascular Risk HDL > or equal to 60 mg/dL LOW HDL < 40 mg/dL HIGH Serum or plasma total choles terol/high density lipoprotein (HDL) cholesterol mass ratOrdered By: Feliberto Faust on 10-27-2021 Cholesterol.total/Fanny sterol in HDL [Mass ratio] 3.4 {ratio} <5.0 [facility] TSH DL <= 0.005 mIU/L QnOrde red By: Feliberto Faust on 10-27-2021 TSH Qn 1.28 m[IU]/L 0.45-5.33 [facility] Thyroid Stim Hormone w/Rflxo n 10-27-2021 Thyroid Stim Hormone w/Rflx 1.28 u[iU]/mL Normal 0.45-5.33 [facility] Comment on above: Performed By: #### L IPID, TSH3 wRFLX, [id number] #### [facility] [address] [place] [address] [facility] Triglyceride [Mass/volume] i n Serum or PlasmaOrdered By: Feliberto Govind on 10-27-2021 Triglyceride [Mass/Vol] 68 mg/dL 35-149 [facility] Comment on above: TRIG ATP III CLASSIF ICATION TRIG less than 150 mg/dL Normal TRIG 150-199 mg/dL Borderline high TRIG 200-500 mg/dL High TRIG greater than 500 mg/dL Very high Standard traceable to the Center for Disease Conrtrol and Prevention (CDC) test method. Vitamin D 25 Hydroxy Totalon 10-27-2021 Vitamin D 25 Hydroxy Total 36.4 ng/mL Normal 30-100 [facility] Comment on above: Result Comment: KELSEY MIN D STATUS 25(OH)VITAMIN D RANGE (ng/mL) Deficient <20 Insufficient 20 to <30 Sufficient 30 to 100 Reference: Kath MF,Ramón NC, Teetee DAVIS, et al. Evaluation,treatment, and prevention of vitamin D deficiency; an Endocrine Society clinical practice guideline. JCEM. 2010; 96(7):1911-30. PERFORMED BY: [place] [address] PATHOLOGIST AUTOMATIC MACHINE ATTENDANT JAMES MCNAIR M.D. Performed By: #### C BC, ETOH, CMP #### [facility] [address] [place] [id number] [facility] Albumin [Mass/volume] in Ser um or PlasmaOrdered By: Ed Amaral on 10-26-2021 Albumin [Mass/Vol] 4.0 g/dL 3.2-5.5 [facility] Amphetamine Screen Ql (U)Ord ered By: Ed Amaral on 10-26-2021 Amphetamines Ql (U) Negative Negative [facility] Automated erythrocytes count in urine sediment (number/area)Ordered By: Ed Amaral on 10-26-2021 RBC Auto (Urine sed) [#/Area] 0-1 [HPF] 0-4 [facility] Automated leukocytes count i n urine sediment (number/area)Ordered By: Ed Amaral on 10-26-2021 WBC Auto (Urine sed) [#/Area] 1-2 [HPF] 0-4 [facility] Automated urine color determ inationOrdered By: Ed Amaral on 10-26-2021 Color (U) Yellow Normal Yellow [facility] Comment on above: Order Comment: Name Collection Type:: Clean-Voided Midstream Performed By: #### S OFIANEG, URDS, ADDONUAPLUS, UHCG, COVID-19 FELI #### [facility] [address] Barbiturates [Presence] in U rineOrdered By: Ed Amaral on 10-26-2021 Barbiturates Ql (U) Negative Negative [facility] Basophils Auto (Bld) [#/Vol] Ordered By: Ed Amaral on 10-26-2021 Basophils (Bld) [#/Vol] 0.1 10*3/uL 0.0-0.2 [facility] Basophils/100 WBC Auto (Bld) Ordered By: Ed Amaral on 10-26-2021 Basophils/100 WBC (Bld) 0.8 % . F [facility] Benzodiazepines [Presence] i n UrineOrdered By: Ed Amaral on 10-26-2021 Benzodiazepines Ql (U) Negative Negative [facility] Bilirubin Test strip Ql (U)O rdered By: Ed Amaral on 10-26-2021 Bilirubin Ql (U) Negative Negative [facility] Blood hemoglobin measurement (mass/volume)Ordered By: Ed Amaral on 10-26-2021 Hemoglobin (Bld) [Mass/Vol] 13.3 g/dL 11.8-15.4 [facility] Blood leukocytes automated c ount (number/volume)Ordered By: Ed Amaral on 10-26-2021 WBC (Bld) [#/Vol] 10.2 10*3/uL 4.5-11.0 [facility] COVID-19 Antigenon 2 COVID-19 Antigen Healthcare [...] developed and its performance characteristic determined by [employer] and validated at [facility]. This test has not been FDA cleared [...] for SARS Antigen by ERNEST[employer] PERFORMED BY: [place] [address] PATHOLOGIST AUTOMATIC MACHINE ATTENDANT JAMES MCNAIR M.D. [facility] Comment on above: Performed By: #### S BALJINDER HOBSON, JAS, UHCG, COVID-19 FELI #### [facility] [address] COVID-19 SOFIAOrdered By: Archie Amaral on 10-26-2021 SARS-CoV+SARS-CoV-2 (COVID-19) Ag IA.rapid Ql (Resp) Negative Negative [facility] Comment on above: This is a duplicate Feli SARS Antigen (ERNESTO) result to be used for statistical tracking purpose only. Cannabinoids [Presence] in U rine by Screen methodOrdered By: Ed Amaral on 10-26-2021 Cannabinoids Screen Ql (U) Positive Negative [facility] Comment on above: These are unconfirme d results and should not be used for legal purposes. Drug Cut-Off Concentration: AMPH 1000 ng/mL SANCHEZ 200 ng/mL RENZO 200 ng/mL COCM 300 ng/mL OP 300 ng/mL PCP 25 ng/mL THC 20 ng/mL Complete Blood Count Auto Di ffon 10-26-2021 Basophils (Bld) [#/Vol] 0.1 10*3/uL Normal 0.0-0.2 [facility] Comment on above: Result Comment: PERF ORMED BY: [place] [address] PATHOLOGIST AUTOMATIC MACHINE ATTENDANT JAMES MCNAIR M.D. Performed By: #### C BC, ETOH, CMP #### [address] Basophils/100 WBC (Bld) 0.8 % Normal . F [facility] Comment on above: Performed By: #### C BC, ETOH, CMP #### [address] Eosinophils (Bld) [#/Vol] 0.2 10*3/uL Normal 0.0-0.45 [facility] Comment on above: Performed By: #### C BC, ETOH, CMP #### [address] Eosinophils/100 WBC (Bld) 1.9 % Normal . [facility] Comment on above: Performed By: #### C BC, ETOH, CMP #### [facility] [address] [place] [address] Erythrocyte distribution width (RBC) [Ratio] 13.0 % Normal 11.9-15.3 [facility] Comment on above: Performed By: #### C BC, ETOH, CMP #### [address] Hematocrit (Bld) [Volume fraction] 39.1 % Normal 34.0-46.4 [facility] Comment on above: Performed By: #### C BC, ETOH, CMP #### [facility] [address] Hemoglobin (Bld) [Mass/Vol] 13.3 g/dL Normal 11.8-15.4 [facility] Comment on above: Performed By: #### C BC, ETOH, CMP #### [facility] [address] Lymphocytes (Bld) [#/Vol] 2.2 10*3/uL Normal 1.00-4.8 [facility] Comment on above: Performed By: #### C BC, ETOH, CMP #### [address] Lymphocytes/100 WBC (Bld) 21.5 % Normal . [facility] Comment on above: Performed By: #### C BC, ETOH, CMP #### [address] MCH (RBC) [Entitic mass] 32.9 pg Normal 24.7-34.3 [facility] Comment on above: Performed By: #### C BC, ETOH, CMP #### [address] MCV (RBC) [Entitic vol] 96.5 fL Normal 80-100 [facility] Comment on above: Performed By: #### C BC, ETOH, CMP #### [address] Mean Corpuscular HGB Conc 34.1 g/dL Normal 32.0-35.0 [facility] Comment on above: Performed By: #### C BC, ETOH, CMP #### [place] [address] [place] Monocytes (Bld) [#/Vol] 0.6 10*3/uL Normal 0.0-0.8 [facility] Comment on above: Performed By: #### C BC, ETOH, CMP #### [facility] [address] [place] [address] [place] Monocytes/100 WBC (Bld) 6.2 % Normal . [facility] Comment on above: Performed By: #### C BC, ETOH, CMP #### [facility] [address] Neutrophils (Bld) [#/Vol] 7.1 10*3/uL Normal 1.8-7.7 [facility] Comment on above: Performed By: #### C BC, ETOH, CMP #### [facility] [address] Neutrophils/100 WBC (Bld) 69.6 % Normal . [facility] Comment on above: Performed By: #### C BC, ETOH, CMP #### [facility] [address] Nucleated RBC/100 WBC (Bld) [Ratio] 0.0 % Normal 0-0.5 [facility] Comment on above: Performed By: #### C BC, ETOH, CMP #### [facility] [address] Platelet mean volume (Bld) [Entitic vol] 9.0 fL Normal 6.3-10.7 [facility] Comment on above: Performed By: #### C BC, ETOH, CMP #### [facility] [address] [place] [address] [place] Platelets (Bld) [#/Vol] 173 10*3/uL Normal 150-450 [facility] Comment on above: Performed By: #### C BC, ETOH, CMP #### [facility] [address] [place] [address] [place] RBC (Bld) [#/Vol] 4.05 10*6/uL Normal 3.60-5.00 [facility] Comment on above: Performed By: #### C BC, ETOH, CMP #### [facility] [address] [place] [address] [place] WBC (Bld) [#/Vol] 10.2 10*3/uL Normal 4.5-11.0 [facility] Comment on above: Performed By: #### C BC, ETOH, CMP #### [address] Comprehensive Metabolic Pane vinita 10-26-2021 Albumin [Mass/Vol] 4.0 g/dL Normal 3.2-5.5 [facility] Comment on above: Performed By: #### C BC, ETOH, CMP #### [address] Albumin/Globulin [Mass ratio] 1.5 {ratio} Normal [facility] Comment on above: Performed By: #### C BC, ETOH, CMP #### [facility] [address] ALP [Catalytic activity/Vol] 55 U/L Normal 32-92 [facility] Comment on above: Performed By: #### C BC, ETOH, CMP #### [address] ALT [Catalytic activity/Vol] 20 U/L Normal 10-60 [facility] Comment on above: Performed By: #### C BC, ETOH, CMP #### [address] Anion gap [Moles/Vol] 10.1 mmol/L Normal 6.0-15.0 [facility] Comment on above: Performed By: #### C BC, ETOH, CMP #### [address] AST [Catalytic activity/Vol] 17 U/L Normal 10-42 [facility] Comment on above: Performed By: #### C BC, ETOH, CMP #### [place] [address] [place] Bilirubin [Mass/Vol] 0.4 mg/dL Normal 0.3-1.2 [facility] Comment on above: Performed By: #### C BC, ETOH, CMP #### [facility] [address] [place] [address] Calcium [Mass/Vol] 9.5 mg/dL Normal 8.2-10.2 [facility] Comment on above: Performed By: #### C BC, ETOH, CMP #### [place] [address] [place] Chloride [Moles/Vol] 104 mmol/L Normal 95-114 [facility] Comment on above: Performed By: #### C BC, ETOH, CMP #### [facility] [address] CO2 [Moles/Vol] 25.3 mmol/L Normal 22.0-30.0 [facility] Comment on above: Performed By: #### C BC, ETOH, CMP #### [facility] [address] Creatinine [Mass/Vol] 0.81 mg/dL Normal 0.44-1.03 [facility] Comment on above: Performed By: #### C BC, ETOH, CMP #### [facility] [address] Creatinine Clr Calc Pharmacy 97.62 [facility] Comment on above: Result Comment: PERF ORMED BY: [place] [address] PATHOLOGIST AUTOMATIC MACHINE ATTENDANT JAMES MCNAIR M.D. Performed By: #### C BC, ETOH, CMP #### [address] Estimated GFR ( Nette > 60 [facility] Comment on above: Result Comment: GFR estimated reference range: According to KDOQI guidelines, <60 ml/min/1.73m2 is sufficient to diagnose a patient with chronic kidney disease. Performed By: #### C BC, ETOH, CMP #### [facility] [address] [place] [address] Estimated GFR (Non- Am > 60 [facility] Comment on above: Performed By: #### C BC, ETOH, CMP #### [facility] [address] [place] [address] [place] Globulin (S) [Mass/Vol] 2.7 g/dL Normal [facility] Comment on above: Performed By: #### C BC, ETOH, CMP #### [facility] [address] Glucose [Mass/Vol] 98 mg/dL Normal 70-100 [facility] Comment on above: Result Comment: [place] Glucose Reference Range is dependent on time and content of last meal. Glucose of more than 200 mg/dL in a nonstressed, ambulatory subject supports the diagnosis of Diabetes Mellitus. ADA recommended reference range Performed By: #### C BC, ETOH, CMP #### [facility] [address] [place] [address] [place] Potassium [Moles/Vol] 3.4 mmol/L Low 3.5-5.1 [facility] Comment on above: Performed By: #### C BC, ETOH, CMP #### [facility] [address] [place] [address] [place] Protein [Mass/Vol] 6.7 g/dL Normal 6.1-7.9 [facility] Comment on above: Performed By: #### C BC, ETOH, CMP #### [facility] [address] Sodium [Moles/Vol] 136 mmol/L Normal 136-146 [facility] Comment on above: Performed By: #### C BC, ETOH, CMP #### [facility] [address] [place] [address] [place] Urea nitrogen [Mass/Vol] 6 mg/dL Low 9-23 [facility] Comment on above: Performed By: #### C BC, ETOH, CMP #### [facility] [address] [place] [address] [place] Creatinine and Glomerular fi ltration rate.predicted panel (S/P/Bld)Ordered By: Ed Amaral on 10-26-2021 Creatinine [Mass/Vol] 0.81 mg/dL 0.44-1.03 [facility] Dipstick and Microscopicon 0 10-26-2021 Appearance (U) Clear Normal Clear [facility] Comment on above: Order Comment: Name Collection Type:: Clean-Voided Midstream Performed By: #### S OFIANEG, URDS, ADDONUAPLUS, UHCG, COVID-19 FELI #### [facility] [address] [place] [id number] [place] Bilirubin,Urine Negative Normal Negative [facility] Comment on above: Order Comment: Name Collection Type:: Clean-Voided Midstream Performed By: #### S OFIANEG, URDS, ADDONUAPLUS, UHCG, COVID-19 FELI #### [facility] [address] [place] [address] [place] Glucose Ql (U) Normal Normal Normal [facility] Comment on above: Order Comment: Name Collection Type:: Clean-Voided Midstream Performed By: #### S OFIANEG, URDS, ADDONUAPLUS, UHCG, COVID-19 FELI #### [facility] [address] [place] [address] [place] Ketones Ql (U) Negative Normal Negative [facility] Comment on above: Order Comment: Name Collection Type:: Clean-Voided Midstream Performed By: #### S OFIANEG, URDS, ADDONUAPLUS, UHCG, COVID-19 FELI #### [facility] [address] [place] [address] Leukocyte esterase Test strip Ql (U) 1+ High Negative [facility] Comment on above: Order Comment: Name Collection Type:: Clean-Voided Midstream Performed By: #### S OFIANEG, URDS, ADDONUAPLUS, UHCG, COVID-19 FELI #### [facility] [address] [place] [address] [place] Nitrite,Urine Negative Normal Negative [facility] Comment on above: Order Comment: Name Collection Type:: Clean-Voided Midstream Performed By: #### S OFIANEG, URDS, ADDONUAPLUS, UHCG, COVID-19 FELI #### [facility] [address] [place] [address] [place] Occult Blood,Urine Negative Normal Negative [facility] Comment on above: Order Comment: Name Collection Type:: Clean-Voided Midstream Performed By: #### S OFIANEG, URDS, ADDONUAPLUS, UHCG, COVID-19 FELI #### [facility] [address] [place] [address] [place] Protein,Urine Negative Normal Negative [facility] Comment on above: Order Comment: Name Collection Type:: Clean-Voided Midstream Performed By: #### S OFIANEG, URDS, ADDONUAPLUS, UHCG, COVID-19 FELI #### [address] RBC LM.HPF (Urine sed) [#/Area] 0 /[HPF] Normal 0-4 [facility] Comment on above: Order Comment: Name Collection Type:: Clean-Voided Midstream Performed By: #### S OFIANEG, URDS, ADDONUAPLUS, UHCG, COVID-19 FELI #### [address] Specificy [place],Urine 1.005 Normal 1.001-1.030 [facility] Comment on above: Order Comment: Name Collection Type:: Clean-Voided Midstream Performed By: #### S OFIANEG, URDS, ADDONUAPLUS, UHCG, COVID-19 FELI #### [address] Squamous Epithelial Cell,Urine 1-2 Normal 0-2 [facility] Comment on above: Order Comment: Name Collection Type:: Clean-Voided Midstream Performed By: #### S OFIANEG, URDS, ADDONUAPLUS, UHCG, COVID-19 FELI #### [address] Urobilinogen,Urine Normal Normal Normal [facility] Comment on above: Order Comment: Name Collection Type:: Clean-Voided Midstream Performed By: #### S OFIANEG, URDS, ADDONUAPLUS, UHCG, COVID-19 FELI #### [address] WBC,Urine 1-2 Normal 0-4 [facility] Comment on above: Order Comment: Name Collection Type:: Clean-Voided Midstream Performed By: #### S OFIANEG, URDS, ADDONUAPLUS, UHCG, COVID-19 FELI #### [address] Drug Screen,Urineon 08-30-20 22 Amphetamine Screen,Urine Negative Normal Negative [facility] Comment on above: Performed By: #### S OFIANEG, URDS, ADDONUAPLUS, UHCG, COVID-19 FELI #### [address] Barbiturate Screen,Urine Negative Normal Negative [facility] Comment on above: Performed By: #### S OFIANEG, URDS, ADDONUAPLUS, UHCG, COVID-19 FELI #### [address] Benzodiazepines Screen,Urine Negative Normal Negative [facility] Comment on above: Performed By: #### S OFIANEG, URDS, ADDONUAPLUS, UHCG, COVID-19 FELI #### [address] Cannabinoid Screen,Urine Positive High Negative [facility] Comment on above: Result Comment: Thes e are unconfirmed results and should not be used for legal purposes. Drug Cut-Off Concentration: AMPH 1000 ng/mL SANCHEZ 200 ng/mL RENZO 200 ng/mL COCM 300 ng/mL OP 300 ng/mL PCP 25 ng/mL THC 20 ng/mL PERFORMED BY: [place] [address] PATHOLOGIST AUTOMATIC MACHINE ATTENDANT JAMES MCNAIR M.D. Performed By: #### S OFIANEG, URDS, ADDONUAPLUS, UHCG, COVID-19 FELI #### [facility] [address] [place] [address] [place] Cocaine Screen,Urine Negative Normal Negative [facility] Comment on above: Performed By: #### S OFIANEG, URDS, ADDONUAPLUS, UHCG, COVID-19 FELI #### [place] [address] [place] Opiate Screen,Urine Negative Normal Negative [facility] Comment on above: Performed By: #### S OFIANEG, URDS, ADDONUAPLUS, UHCG, COVID-19 FELI #### [address] [place] [address] [place] Phencyclidine Screen,Urine Negative Normal Negative [facility] Comment on above: Performed By: #### S JOCE, BALJINDER, ADDONUAPLUS, UHCG, COVID-19 FELI #### [address] Eosinophils Auto (Bld) [#/Vo l]Ordered By: Ed Amaral on 10-26-2021 Eosinophils (Bld) [#/Vol] 0.2 10*3/uL 0.0-0.45 [facility] Eosinophils/100 WBC Auto (Bl d)Ordered By: Ed Amaral on 10-26-2021 Eosinophils/100 WBC (Bld) 1.9 % . [facility] Erythrocyte distribution wid th Auto (RBC) [Ratio]Ordered By: Ed Amaral on 10-26-2021 Erythrocyte distribution width (RBC) [Ratio] 13.0 % 11.9-15.3 [facility] Estimated glomerular filtrat ion rate (GFR) non- AmericanOrdered By: Ed Amaral on 10-26-2021 GFR/1.73 sq M.predicted among non-blacks MDRD (S/P/Bld) [Vol rate/Area] > 60 mL/Min [facility] Ethyl Alcohol Profileon 09-29 Ethanol [Mass/Vol] mg/dL Normal [facility] Comment on above: Performed By: #### C BC, ETOH, CMP #### [facility] [address] [place] [address] Percent Ethanol Not performed Normal [facility] Comment on above: Result Comment: PERF ORMED BY: [place] [address] PATHOLOGIST AUTOMATIC MACHINE ATTENDANT JAMES MCNAIR M.D. Performed By: #### C BC, ETOH, CMP #### [address] Globulin Calc (S) [Mass/Vol] Ordered By: Ed Amaral on 10-26-2021 Globulin (S) [Mass/Vol] 2.7 g/dL F [facility] HCG ( test) IA.rapi d Ql (U)Ordered By: Ed Amaral on 10-26-2021 HCG ( test) Ql (U) Negative [facility] HCG,Urineon 10-26-2021 Beta HCG ( test) Ql (U) Negative Normal [facility] Comment on above: Order Comment: Name Collection Type:: Clean-Voided Midstream Result Comment: PERF ORMED BY: [facility] [address] [place] [address] PATHOLOGIST AUTOMATIC MACHINE ATTENDANT JAMES MCNAIR M.D. Performed By: #### S OFIANEG, URDS, ADDONUAPLUS, UHCG, COVID-19 FELI #### [facility] [address] Hematocrit Auto (Bld) [Volum e fraction]Ordered By: Ed Amaral on 10-26-2021 Hematocrit (Bld) [Volume fraction] 39.1 % 34.0-46.4 [facility] Ketones Auto test strip (U) [Mass/Vol]Ordered By: Ed Amaral on 10-26-2021 Ketones (U) [Mass/Vol] Negative Negative [facility] - Drug toxicology Ordered By: Ed Amaral on 10-26-2021 Opiates Ql (U) Negative Negative [facility] Laboratory - Hematology and Cell countsOrdered By: Ed Amaral on 10-26-2021 Nucleated RBC/100 WBC (Bld) [Ratio] 0.0 % 0-0.5 [facility] Lymphocytes Auto (Bld) [#/Vo l]Ordered By: Ed Amaral on 10-26-2021 Lymphocytes (Bld) [#/Vol] 2.2 10*3/uL 1.00-4.8 [facility] Lymphocytes/100 WBC Auto (Bl d)Ordered By: Ed Amaral on 10-26-2021 Lymphocytes/100 WBC (Bld) 21.5 % . [facility] MCH Auto (RBC) [Entitic mass ]Ordered By: Ed Amaral on 10-26-2021 MCH (RBC) [Entitic mass] 32.9 pg 24.7-34.3 [facility] MCHC Auto (RBC) [Mass/Vol]Or dered By: Ed Amaral on 10-26-2021 MCHC (RBC) [Mass/Vol] 34.1 g/dL 32.0-35.0 Fir [facility] MCV Auto (RBC) [Entitic vol] Ordered By: Ed Amaral on 10-26-2021 MCV (RBC) [Entitic vol] 96.5 fL 80-100 F [facility] Monocytes Auto (Bld) [#/Vol] Ordered By: Ed Amaral on 10-26-2021 Monocytes (Bld) [#/Vol] 0.6 10*3/uL 0.0-0.8 [facility] Monocytes/100 WBC Auto (Bld) Ordered By: Ed Amaral on 10-26-2021 Monocytes/100 WBC (Bld) 6.2 % . F [facility] Neutrophils Auto (Bld) [#/Vo l]Ordered By: Ed Amaral on 10-26-2021 Neutrophils (Bld) [#/Vol] 7.1 10*3/uL 1.8-7.7 [facility] Neutrophils/100 WBC Auto (Bl d)Ordered By: Ed Amaral on 10-26-2021 Neutrophils/100 WBC (Bld) 69.6 % . [facility] Nitrite Test strip Ql (U)Ord ered By: Ed Amaral on 10-26-2021 Nitrite Ql (U) Negative Negative [facility] No Panel InformationOrdered By: Ed Amaral on 10-26-2021 Estimated GFR () > 60 mL/Min [facility] Comment on above: GFR estimated refere nce range: According to KDOQI guidelines, <60 ml/min/1.73m2 is sufficient to diagnose a patient with chronic kidney disease. Pharmacy Creatinine Clearance (Chem 97.62 [facility] SARS Antigen (LFIA) [facility] Phencyclidine Screen Ql (U)O rdered By: Ed Amaral on 10-26-2021 Phencyclidine Ql (U) Negative Negative [facility] Platelet mean volume Auto (B ld) [Entitic vol]Ordered By: Ed Amaral on 10-26-2021 Platelet mean volume (Bld) [Entitic vol] 9.0 fL 6.3-10.7 [facility] Platelets Auto (Bld) [#/Vol] Ordered By: Ed Amaral on 10-26-2021 Platelets (Bld) [#/Vol] 173 10*3/uL 150-450 [facility] Protein Auto test strip (U) [Mass/Vol]Ordered By: Ed Amaral on 10-26-2021 Protein (U) [Mass/Vol] Negative Negative [facility] Protein [Mass/volume] in Ser um or PlasmaOrdered By: Ed Amaral on 10-26-2021 Protein [Mass/Vol] 6.7 g/dL 6.1-7.9 [facility] RBC Auto (Bld) [#/Vol]Ordere d By: Ed Amaral on 10-26-2021 RBC (Bld) [#/Vol] 4.05 10*6/uL 3.60-5.00 [facility] Serum or plasma alanine daniel otransferase measurement without P-5'-P (enzymatic activiOrdered By: Ed Amaral on 10-26-2021 ALT No additional P-5'-P [Catalytic activity/Vol] 20 U/L 10-60 [facility] Serum or plasma albumin/glob ulin mass ratioOrdered By: Ed Amaral on 10-26-2021 Albumin/Globulin [Mass ratio] 1.5 {ratio} [facility] Serum or plasma alkaline jame sphatase measurement (enzymatic activity/volume)Ordered By: Ed Amaral on 10-26-2021 ALP [Catalytic activity/Vol] 55 U/L 32-92 [facility] Serum or plasma anion gap de terminationOrdered By: Ed Amaral on 10-26-2021 Anion gap [Moles/Vol] 10.1 mmol/L 6.0-15.0 [facility] Serum or plasma aspartate am inotransferase measurement (enzymatic activity/volume)Ordered By: Ed Amaral on 10-26-2021 AST [Catalytic activity/Vol] 17 U/L 10-42 [facility] Serum or plasma calcium stephane urement (mass/volume)Ordered By: Ed Amaral on 10-26-2021 Calcium [Mass/Vol] 9.5 mg/dL 8.2-10.2 [facility] Serum or plasma chloride rios surement (moles/volume)Ordered By: Ed Amaral on 10-26-2021 Chloride [Moles/Vol] 104 mmol/L 95-114 [facility] Serum or plasma ethanol stephane urement (mass/volume)Ordered By: Ed Amaral on 10-26-2021 Ethanol [Mass/Vol] mg/dL [facility] Ethanol [Mass/Vol] TNP [facility] Comment on above: Test not performed Serum or plasma glucose stephane urement (mass/volume)Ordered By: Ed Amaral on 10-26-2021 Glucose [Mass/Vol] 98 mg/dL 70-100 [facility] Comment on above: ADA recommended refe rence range Random Glucose Reference Range is dependent on time and content of last meal. Glucose of more than 200 mg/dL in a nonstressed, ambulatory subject supports the diagnosis of Diabetes Mellitus. Serum or plasma potassium me asurement (moles/volume)Ordered By: Ed Amaral on 10-26-2021 Potassium [Moles/Vol] 3.4 mmol/L 3.5-5.1 [facility] Serum or plasma sodium measu rement (moles/volume)Ordered By: Ed Amaral on 10-26-2021 Sodium [Moles/Vol] 136 mmol/L 136-146 [facility] Serum or plasma total biliru bin measurement (mass/volume)Ordered By: Ed Amaral on 10-26-2021 Bilirubin [Mass/Vol] 0.4 mg/dL 0.3-1.2 [facility] Serum or plasma total carbon dioxide measurement (moles/volume)Ordered By: Ed Amaral on 10-26-2021 CO2 [Moles/Vol] 25.3 mmol/L 22.0-30.0 [facility] Serum or plasma urea nitroge n measurement (mass/volume)Ordered By: Ed Amaral on 10-26-2021 Urea nitrogen [Mass/Vol] 6 mg/dL 11-19 [facility] Feli Ag Negativeon 10-27-19 Feli Ag Negative Negative Normal Negative [facility] Comment on above: Result Comment: This is a duplicate Feli SARS Antigen (ERNESTO) result to be used for statistical tracking purpose only. PERFORMED BY: [facility] [address] [place] [address] PATHOLOGIST AUTOMATIC MACHINE ATTENDANT JAMES MCNAIR M.D. Performed By: #### S BALJINDER HOBSON, ADDONUAPLUS, UHCG, COVID-19 FELI #### [address] Specific gravity Auto test s trip (U) [Rel density]Ordered By: Ed Amaral on 10-26-2021 Specific gravity (U) [Rel density] 1.005 1.001-1.030 [facility] Squamous epithelial cells de tection in urine sediment by light microscopyOrdered By: Ed Amaral on 10-26-2021 Epithelial cells.squamous LM Ql (Urine sed) 1-2 [HPF] 0-2 [facility] Urine bacteria detection by automated methodOrdered By: Ed Amaral on 10-26-2021 Bacteria Auto Ql (U) N/A [facility] Urine clarity by refractomet ry automatedOrdered By: Ed Amaral on 10-26-2021 Clarity Refractometry automated (U) Clear Clear [facility] Urine cocaine detectionOrder ed By: Ed Amaral on 10-26-2021 Cocaine Ql (U) Negative Negative [facility] Urine glucose measurement by automated test strip (mass/volume)Ordered By: Ed Amaral on 10-26-2021 Glucose Auto test strip (U) [Mass/Vol] Normal mg/dL Normal [facility] Urine hemoglobin detection b y automated test stripOrdered By: Ed Amaral on 10-26-2021 Hemoglobin Auto test strip Ql (U) Negative Negative [facility] Urine leukocyte esterase det ection by automated test stripOrdered By: Ed Amaral on 10-26-2021 Leukocyte esterase Auto test strip Ql (U) 1+ Negative [facility] Urine pH measurement by auto mated test stripOrdered By: Ed Amaral on 10-26-2021 pH (U) 7.0 [pH] Normal 5.0-9.0 [facility] Comment on above: Order Comment: Name Collection Type:: Clean-Voided Midstream Performed By: #### S BALJINDER HOBSON, ADDONUAPLUS, UHCG, COVID-19 FELI #### [facility] [address] Urobilinogen Auto test strip (U) [Mass/Vol]Ordered By: Ed Amaral on 10-26-2021 Urobilinogen (U) [Mass/Vol] Normal mg/dL Normal [facility] Viral Non-Resp Culton 2021 Viral Non-Resp Cult Specimen Description .WOUND UPPER .LIP Culture POSITIVE: HSV-1 DNA detected by nucleic acid amp. NEGATIVE: HSV-2 DNA not detected by nucleic acid amplification. Due to the specimen source, HSV 1,2 testing was performed by a molecular method. Report Status FINAL 05/30/2021 Normal [facility] Comment on above: Performed By: #### V [facility] #### [facility] [employer] [address] [place] [address] Channel Sales Director: Claude Gonzalez MD No Panel InformationOrdered By: Kai Sharma on 05-28-2021 Reported Physicians See Note [facility] Work Phone: Comment on above: Note: Reported Physi cians:Ordering: Andres SharmaaAttending: Andres SharmaaReferring: Kia Sharma Viral Non-Resp Cult See Note [facility] Work Phone: Comment on above: Note: Specimen Descr iption .WOUND UPPER .LIPCulture POSITIVE: HSV-1 DNA detected by nucleic acid amp.NEGATIVE: HSV-2 DNA not detected by nucleic acid amplification.Due to the specimen source, HSV 1,2 testing was performed by a molecular method.Report Status FINAL 2Responsible Observer: SUMMER BOYD ([id number]) Follicle Stimulating Hormone on 03-10-2021 FSH 4.5 U/L 1.7 - 21.5 U/L [facility] Comment on above: Reference Range: Male: 1.5-12.4 Ovulating Female: Follicular Phase 3.5-12.5 Ovulation Phase 4.7-21.5 Luteal Phase 1.7-7.7 Postmenopausal Female: 25.8-134.8 Luteinizing Hormoneon 2021 LH 3.0 U/L 1.0 - 95.6 U/L [facility] Comment on above: Reference Range: Male: 1.7-8.6 Ovulating Female: Follicular Phase 2.4-12.6 Ovulation Phase 14.0-95.6 Luteal Phase 1.0-11.4 Postmenopausal Female: 7.7-58.5 No Panel Informationon 03-10 [facility] Prolactinon 03-10-2021 Prolactin 5.96 ug/L 4.79 - 23.30 ug/L [facility] Comment on above: The presence of macr oprolactin may cause interference in female patients with various endocrinological diseases or during . [facility] TSH with Reflexon 03-10-2021 TSH Qn 0.72 m[IU]/L [facility] hCG, Quantitative, on 03-10-2021 hCG Quant <1 <5 IU/L [facility] Comment on above: Non-preg premeno <=5 Postmeno <=8 Male <=3 If HCG results do not concur with clinical observations, additional testing to confirm results is recommended. Elevated results not associated with may be found in patients with other diseases such as tumors of the germ cells (testis, ovaries, etc.), bladder, pancreas, stomach, lungs, and liver. [facility] , UrineOrdered By: Anthony Galloway on 10-14-2020 Beta HCG ( test) Ql (U) Negative NEGATIVE [facility] Phone: Comment on above: Specimens with hCG l evels near the threshold of the test (25 mIU/mL) may give a negative or indeterminate result. In such cases, another test should be performed with a new specimen in 48-72 hours. If early is suspected clinically in this setting, correlation with quantitative serum b-hCG level is suggested. [employer] has confirmed the use of plasma for this test. This has not been cleared or approved by the U.S. Food and Drug Administration. The FDA has determined that such clearance is not necessary. [facility] Work Phone: COVID-19Ordered By: Sabas siddiqi on 10-10-2020 SARS-CoV-2 (COVID-19) RNA SANDRA+probe Ql (Unsp spec) [facility] Phone: SARS-CoV-2 (COVID-19) RNA SANDRA+probe Ql (Unsp spec) Not detected Not Detected [facility] Phone: Comment on above: The specimen is NEGATIVE for SARS-CoV-2, the novel coronavirus associated with COVID-19. A negative result does not rule out COVID-19. [facility] SARS-CoV-2 for use on the [employer] is a real-time RT-PCR test intended [...] this assay. Fact sheet for Healthcare Providers: https://www.fda.gov/media/512641/download Fact sheet for Patients: https://www.fda.gov/media/155179/download METHODOLOGY: RT-PCR Source .NASOPHARYNGEAL SWAB ePAR Phone: [facility] Phone: Microscopic Urinalysison Amorphous, UA NOT REPORTED None [facility], [place] Bacteria, UA 1+ Abnormal None [facility], [place] Casts UA NOT REPORTED /LPF [place], [place] Crystals, UA NOT REPORTED None /HPF [place] Epithelial Cells UA 5 TO 10 [place], [place] Interpretation and review of laboratory results Abnormal [place] Mucus, UA NOT REPORTED None [place], [place] Other Observations UA NOT REPORTED NOT REQ. M [place], [place] RBC (U) [#/Vol] 0 TO 2 [facility], [place] Renal Epithelial, UA NOT REPORTED 0 /HPF Me [place], [place] Trichomonas, UA NOT REPORTED None [place] WBC, UA 0 TO 2 [place] Yeast, UA NOT REPORTED None [place], [place] - [place] , Urineon 0 Beta HCG ( test) Ql (U) Negative NEGATIVE [place] Comment on above: Specimens with hCG l evels near the threshold of the test (25 mIU/mL) may give a negative or indeterminate result. In such cases, another test should be performed with a new specimen in 48-72 hours. If early is suspected clinically in this setting, correlation with quantitative serum b-hCG level is suggested. [facility] has confirmed the use of plasma for this test. This has not been cleared or approved by the U.S. Food and Drug Administration. The FDA has determined that such clearance is not necessary. Urinalysis Reflex to Culture on 02-25-2020 Bilirubin Urine Negative NEGATIVE [place], [place] Color, UA YELLOW YELLOW [place] Glucose, Ur Negative NEGATIVE [place] Ketones Ql (U) Negative NEGATIVE [place] Leukocyte esterase Test strip Ql (U) Negative NEGATIVE [place] Nitrite, Urine Negative NEGATIVE [place] pH, UA 6.5 [place] Protein (U) [Mass/Vol] Negative NEGATIVE [place], [place] Specific [place], UA 1.010 [place], [place] Turbidity UA CLEAR CLEAR [place] Urinalysis Comments NOT REPORTED [place], [place] Urine Hgb Negative NEGATIVE [place] Urobilinogen, Urine Normal Normal [place] Wet Prep, Genitalon 02-25-20 20 Direct Exam NO TRICHOMONAS SEEN [place] Direct Exam NO YEAST OBSERVED [place] Direct Exam CLUE CELLS SEEN Abnormal [place], [place] Interpretation and review of laboratory results Abnormal [place] Special Requests NOT REPORTED [place] Specimen Description .VAGINA [place] Laboratory Studieson 016 Albumin [Mass/Vol] 3.4 g/dL 3.2-5.5 [facility] Albumin/Globulin [Mass ratio] 1.5 {ratio} [facility] ALP [Catalytic activity/Vol] 50 U/L 32-92 [facility] ALT [Catalytic activity/Vol] 17 U/L 10-60 [facility] AST [Catalytic activity/Vol] 16 U/L 10-42 [facility] Basophils (Bld) [#/Vol] 0.0 10*3/uL 0.0-0.2 [facility] Basophils/100 WBC (Bld) 0.3 % F [facility] Bilirubin Ql (U) 0.2 mg/dL Low 0.3-1.2 [facility] Bilirubin.direct [Mass/Vol] mg/dL 0.0-0.4 [facility] Bilirubin.indirect (Body fld) [Mass/Vol] TNP [facility] Comment on above: Test not performed WHEN BILD IS <0.1,IBIL IS NOT ABLE TO BE CALCULATED. Calcium [Mass/Vol] 9.3 mg/dL 8.2-10.2 [facility] Chloride [Moles/Vol] 106 mmol/L 95-114 [facility] Cholesterol [Mass/Vol] 9 mg/dL Fi [facility] Cholesterol [Mass/Vol] 101 mg/dL Low 140-200 [facility] Comment on above: CHOL less than 200 m g/dL Low risk CHOL 201-239 mg/dL Borderline risk CHOL 240 mg/dL and greater High risk Cholesterol in HDL [Mass/Vol] 38 mg/dL 35-85 [facility] Comment on above: HDL CHOL ATP-III CLA SSIFICATION Cardiovascular Risk HDL > or equal to 60 mg/dL Low HDL < 40 mg/dL High Cholesterol.total/Fanny sterol in HDL [Mass ratio] 2.7 {ratio} [facility] CO2 [Moles/Vol] 25.8 mmol/L 22.0-30.0 [facility] Creatinine [Mass/Vol] 0.62 mg/dL 0.44-1.03 [facility] Eosinophils (Bld) [#/Vol] 0.10 10*3/uL 0.0-0.45 [facility] Eosinophils/100 WBC (Bld) 1.5 % [facility] Erythrocyte distribution width (RBC) [Ratio] 13.2 % 11.9-15.3 [facility] Estimated GFR (Non- > 60 [facility] GFR/1.73 sq M.predicted MDRD (S/P/Bld) [Vol rate/Area] mL/min/{1.73_m2} [facility] Comment on above: GFR estimated refere nce range: According to KDOQI guidelines, <60 ml/min/1.73m2 is sufficient to diagnose a patient with chronic kidney disease. Globulin (S) [Mass/Vol] 2.2 g/dL F [facility] Glucose [Mass/Vol] 82 mg/dL 70-100 [facility] Comment on above: ADA RECOMMENDED REFE RENCE RANGE Hematocrit (Bld) [Volume fraction] 32.1 % Low 34.0-46.4 [facility] Hemoglobin (Bld) [Mass/Vol] 11.0 g/dL Low 11.8-15.4 [facility] LDL Cholesterol, Calculated 54 mg/dL 0-100 [facility] Comment on above: LDL ATP III CLASSIFI CATION LDL less than 100 mg/dL Optimal LDL 100-129 mg/dL Near or above optimal LDL 130-159 mg/dL Borderline high LDL 160-189 mg/dL High LDL greater than 189 mg/dL Very high Lymphocytes (Bld) [#/Vol] 2.1 10*3/uL 1.00-4.8 [facility] Lymphocytes/100 WBC (Bld) 25.3 % [facility] MCH (RBC) [Entitic mass] 31.9 pg 24.7-34.3 [facility] MCHC (RBC) [Mass/Vol] 34.4 g/dL 32.0-35.0 [facility] MCV (RBC) [Entitic vol] 92.6 fL 80-100 F [facility] Monocytes (Bld) [#/Vol] 0.7 10*3/uL 0.0-0.8 [facility] Monocytes/100 WBC (Bld) 8.3 % F [facility] Neutrophils (Bld) [#/Vol] 5.3 10*3/uL 1.8-7.7 [facility] Neutrophils/100 WBC (Bld) 64.6 % [facility] Platelet mean volume (Bld) [Entitic vol] 9.5 fL 6.3-10.7 [facility] Platelets (Bld) [#/Vol] 135 10*3/uL Low 150-450 [facility] Potassium [Moles/Vol] 4.3 mmol/L 3.5-5.1 [facility] Protein [Mass/Vol] 5.6 g/dL Low 6.1-7.9 [facility] RBC (Bld) [#/Vol] 3.46 10*6/uL Low 3.60-5.00 [facility] Sodium [Moles/Vol] 138 mmol/L 136-146 [facility] Triglyceride [Mass/Vol] 47 mg/dL 35-149 F [facility] Comment on above: TRIG ATP III CLASSIF ICATION TRIG less than 150 mg/dL Normal TRIG 150-199 mg/dL Borderline high TRIG 200-500 mg/dL High TRIG greater than 500 mg/dL Very high Standard traceable to the Center for Disease Conrtrol and Prevention (CDC) test method. Troponin I.cardiac [Mass/Vol] 0.02 ng/mL 0-0.02 [facility] Comment on above: [place] Cut off value > or equal to 0.03 ng/mL in conjunction with clinical conditions of myocardial infarction. (www.[email or web address].org/guidelines) TSH Qn 1.89 uIU/mL 0.340-5.600 [facility] Urea nitrogen [Mass/Vol] 7 mg/dL Low 9-23 [facility] WBC (Bld) [#/Vol] 8.2 10*3/uL 3.8-11.6 [facility] Amorphous sediment LM Ql (Urine sed) 2+ [facility] Comment on above: PHOSPHATES Amphetamines Ql (U) Negative [facility] Appearance (U) Hazy Abnormal [facility] Bacteria LM.HPF (Urine sed) [#/Area] Rare [facility] Benzodiazepines Ql (U) [facility] Bilirubin Ql (U) Negative [facility] Cocaine Ql (U) Negative [facility] Color (U) Light-yellow [facility] Epithelial cells.squamous LM.HPF (Urine sed) [#/Area] 3-4 /hpf [facility] Glucose (U) [Mass/Vol] Normal mg/dL [facility] Ketones Ql (U) Negative [facility] Leukocyte esterase Test strip Ql (U) Negative [facility] Nitrite Ql (U) Negative [facility] Opiates Ql (U) Negative [facility] pH (U) 7.0 [pH] 5.0-9.0 [facility] Phencyclidine Ql (U) Negative [facility] Protein Ql (U) Negative [facility] RBC (U) [#/Vol] Rare /hpf [facility] Specific gravity (U) [Rel density] 1.010 1.001-1.030 [facility] Urine Barbiturates Screen Positive [facility] Urine Collection Type Type [facility] Comment on above: VOIDED Urine Drug Screen Comment See comment [facility] Comment on above: THESE ARE UNCONFIRME D RESULTS AND SHOULD NOT BE USED FOR LEGAL PURPOSES. DRUG CUT-OFF CONCENTRATION: AMPH 1000 ng/mL SANCHEZ 200 ng/mL RENZO 200 ng/mL COCM 300 ng/mL OP 300 ng/mL PCP 25 ng/mL THC 20 ng/mL Urine Marijuana (THC) Screen Positive [facility] Urine Occult Blood Negative [facility] Urobilinogen Qn (U) Normal mg/dL [facility] WBC (U) [#/Vol] Rare /hpf [facility] Laboratory Studieson 016 CK [Catalytic activity/Vol] 51 U/L 22-269 [facility] CK.MB [Mass/Vol] 0.8 ng/mL 0.6-6.3 [facility] Creatine Kinase MB Relative Index 1.5 0.00-2.50 [facility] Vital Signs Date Time Vital Sign Value Performing Clinician Facility 09-12-2023 17:45-0400 Body height 170.2 cm Brenda Stephen APRN - JONELLE Work Phone: [facility] 09-12-2023 17:45-0400 Body mass index (BMI) [Ratio] 28.82 kg/m2 Brenda Stephen [facility] - CNM Work Phone: [facility] 09-12-2023 17:45-0400 Body temperature 98.29 [degF] Brenda Cardosotig [employer]AL L[employer]ISON - CNM Work Phone: [facility] 09-12-2023 17:45-0400 Body weight 83.46 kg Brenda Stephen [employer] [facility]ISON - CNM Work Phone: [facility] 09-12-2023 17:45-0400 Diastolic blood pressure 60 mm[Hg] Brenda Stephen [facility] - CNM Work Phone: [facility] 09-12-2023 17:45-0400 Heart rate 75 /min Brenda Stephen REGIONAL LIAISON - CN Work Phone: [facility] 09-12-2023 17:45-0400 Respiratory rate 16 /min Brenda Stephen [employer] - CNM Work Phone: [facility] 09-12-2023 17:45-0400 SaO2% (BldA) [Mass fraction] 98 % Brenda Stephen [facility] - CNM Work Phone: [facility] 09-12-2023 17:45-0400 Systolic blood pressure 110 mm[Hg] Brenda Stephen [facility] - CNM Work Phone: [facility] 08-24-2023 20:05-0400 Body temperature 98.1 [degF] Jagdeep D'Abreau DO Work Phone: [facility] 08-24-2023 20:05-0400 Diastolic blood pressure 63 mm[Hg] Jagdeep D'Abreau DO Work Phone: [facility] 08-24-2023 20:05-0400 Heart rate 95 /min Jagdeep D'Abreau DO Work Phone: [employer] 08-24-2023 20:05-0400 Respiratory rate 16 /min Jagdeep Lozoyau DO Work Phone: [facility] 08-24-2023 20:05-0400 SaO2% (BldA) [Mass fraction] 98 % Jagdeep Manrique DO Work Phone: [employer] 08-24-2023 20:05-0400 Systolic blood pressure 131 mm[Hg] Jagdeep Lozoyau DO Work Phone: [employer] 08-03-2022 06:56-0400 Body temperature 99 [degF] Samara Paulino MD Work Phone: [employer] 08-03-2022 06:56-0400 Diastolic blood pressure 75 mm[Hg] Samara Paulino MD Work Phone: [employer] 08-03-2022 06:56-0400 Heart rate 129 /min Samara Paulino MD Work Phone: [employer] 08-03-2022 06:56-0400 Respiratory rate 22 /min Samara Paulino MD Work Phone: [employer] 08-03-2022 06:56-0400 SaO2% (BldA) [Mass fraction] 100 % Samara Paulino MD Work Phone: [employer] 08-03-2022 06:56-0400 Systolic blood pressure 131 mm[Hg] Samara Paulino MD Work Phone: [facility] 07-27-2022 18:47-0400 Body height 175.26 cm Mariposa Duncan CNP Work Phone: [facility] Work Phone: 07-27-2022 18:47-0400 Body mass index (BMI) [Ratio] 22 kg/m2 Mariposa Duncan CNP Work Phone: [facility] Work Phone: 07-27-2022 18:47-0400 Body surface area Derived from formula 1.8 m2 Mariposa Duncan CNP Work Phone: [facility] Work Phone: 07-27-2022 18:47-0400 Body temperature 96.3 [degF] Mariposa Duncan CNP Work Phone: [facility] Work Phone: 07-27-2022 18:47-0400 Body weight 67.72 kg Mariposa Duncan CNP Work Phone: [facility] Work Phone: 07-27-2022 18:47-0400 Diastolic blood pressure 63 mm[Hg] Mariposa Duncan CNP Work Phone: [facility] Work Phone: 07-27-2022 18:47-0400 Heart rate 68 /min Mariposa Duncan CNP Work Phone: [facility] Work Phone: 07-27-2022 18:47-0400 SaO2% (BldA) [Mass fraction] 97 % Mariposa Duncan CNP Work Phone: [facility] Work Phone: 07-27-2022 18:47-0400 Systolic blood pressure 117 mm[Hg] Mariposa Duncan CNP Work Phone: [facility] Work Phone: 04-24-2022 13:05-0500 Diastolic blood pressure 60 mm[Hg] Kia Sharma APRN - RADIATION THERAPY TECHNOLOGIST Work Phone: [facility] 04-24-2022 13:05-0500 Systolic blood pressure 122 mm[Hg] Kia Sharma APRN - RADIATION THERAPY TECHNOLOGIST Work Phone: [facility] 04-24-2022 10:44-0500 Body mass index (BMI) [Ratio] 24.78 kg/m2 Kia Sharma APRN - RADIATION THERAPY TECHNOLOGIST Work Phone: [employer] 04-24-2022 10:44-0500 Body temperature 98.4 [degF] Kia Sharma APRN - RADIATION THERAPY TECHNOLOGIST Work Phone: [facility] 04-24-2022 10:44-0500 Body weight 73.94 kg Kia Sharma APRN - RADIATION THERAPY TECHNOLOGIST Work Phone: [facility] 04-24-2022 10:44-0500 Heart rate 79 /min Kia Sharma APRN - RADIATION THERAPY TECHNOLOGIST Work Phone: [facility] 04-24-2022 10:44-0500 Respiratory rate 20 /min Kia Sharma APRN - RADIATION THERAPY TECHNOLOGIST Work Phone: [facility] 04-24-2022 10:44-0500 SaO2% (BldA) [Mass fraction] 100 % Kia Sharma APRN - RADIATION THERAPY TECHNOLOGIST Work Phone: [facility] 03-04-2022 14:15-0500 Diastolic blood pressure 78 mm[Hg] Geoff Miller MD Work Phone: [facility] 03-04-2022 14:15-0500 Heart rate 74 /min Geoff Miller MD Work Phone: [employer] 03-04-2022 14:15-0500 Respiratory rate 16 /min Geoff Miller MD Work Phone: [employer] 03-04-2022 14:15-0500 SaO2% (BldA) [Mass fraction] 100 % Geoff Miller MD Work Phone: [employer] 03-04-2022 14:15-0500 Systolic blood pressure 131 mm[Hg] Geoff Miller MD Work Phone: [facility] 03-04-2022 13:30-0500 Body temperature 97.2 [degF] Geoff Miller MD Work Phone: [facility] 03-04-2022 11:15-0500 Body height 172.7 cm Geoff Miller MD Work Phone: [facility] 03-04-2022 11:15-0500 Body mass index (BMI) [Ratio] 24.94 kg/m2 Geoff Miller MD Work Phone: [facility] 03-04-2022 11:15-0500 Body weight 74.39 kg Geoff Miller MD Work Phone: [facility] 03-01-2022 08:00-0500 Body mass index (BMI) [Ratio] 24.94 kg/m2 Nicholas Denton MD Work Phone: [facility] 03-01-2022 08:00-0500 Body temperature 98.2 [degF] Nicholas Denton MD Work Phone: [facility] 03-01-2022 08:00-0500 Body weight 74.39 kg Nicholas Denton MD Work Phone: [facility] 03-01-2022 08:00-0500 Diastolic blood pressure 61 mm[Hg] Nicholas Denton MD Work Phone: [facility] 03-01-2022 08:00-0500 Heart rate 89 /min Nicholas Denton MD Work Phone: [facility] 03-01-2022 08:00-0500 Respiratory rate 20 /min Nicholas Denton MD Work Phone: [facility] 03-01-2022 08:00-0500 SaO2% (BldA) [Mass fraction] 99 % Nicholas Denton MD Work Phone: [facility] 03-01-2022 08:00-0500 Systolic blood pressure 138 mm[Hg] Nicholas Denton MD Work Phone: [facility] 10-29-2021 07:30-0400 Body temperature 96.6 [degF] PHYSICIAN NO [facility] 10-29-2021 07:30-0400 Diastolic blood pressure 70 mm[Hg] PHYSICIAN NO [facility] 10-29-2021 07:30-0400 Heart rate 84 /min PHYSICIAN NO [facility] 10-29-2021 07:30-0400 Respiratory rate 18 /min PHYSICIAN NO [facility] 10-29-2021 07:30-0400 SaO2% (BldA) [Mass fraction] 97 % PHYSICIAN NO [facility] 10-29-2021 07:30-0400 Systolic blood pressure 110 mm[Hg] PHYSICIAN NO [facility] 10-27-2021 14:15-0400 Body height 172.72 cm PHYSICIAN NO [facility] 10-26-2021 20:08-0400 Body weight 58.96 kg PHYSICIAN NO [facility] 08-17-2021 16:45-0400 Body height 175.26 cm Kia Sharma [facility] Work Phone: [facility] Work Phone: 08-17-2021 16:45-0400 Body mass index (BMI) [Ratio] 20 kg/m2 Kia Sharma RADIATION THERAPY TECHNOLOGIST Work Phone: [facility] Work Phone: 08-17-2021 16:45-0400 Body surface area Derived from formula 1.75 m2 Kia Sharma CNP Work Phone: [facility] Work Phone: 08-17-2021 16:45-0400 Body surface area Derived from formula 1.7 m2 Mariposa Duncan [facility] Work Phone: [facility] Work Phone: 08-17-2021 16:45-0400 Body temperature 96.7 [degF] Kia Sharma RADIATION THERAPY TECHNOLOGIST Work Phone: [facility] Work Phone: 08-17-2021 16:45-0400 Body weight 61.33 kg Kia Sharma CNP Work Phone: [facility] Work Phone: 08-17-2021 16:45-0400 Diastolic blood pressure 64 mm[Hg] Kia Sharma CNP Work Phone: [facility] Work Phone: 08-17-2021 16:45-0400 Heart rate 67 /min Kia Sharma CNP Work Phone: [facility] Work Phone: 08-17-2021 16:45-0400 SaO2% (BldA) [Mass fraction] 99 % Kia Sharma CNP Work Phone: [facility] Work Phone: 08-17-2021 16:45-0400 Systolic blood pressure 110 mm[Hg] Kia Sharma CNP Work Phone: [facility] Work Phone: 07-15-2021 15:57-0400 Body height 175.26 cm Kia Sharma CNP Work Phone: [facility] Work Phone: 07-15-2021 15:57-0400 Body mass index (BMI) [Ratio] 19.8 kg/m2 Kia Sharma CNP Work Phone: [facility] Work Phone: 07-15-2021 15:57-0400 Body surface area Derived from formula 1.74 m2 Kia Sharma CNP Work Phone: [facility] Work Phone: 07-15-2021 15:57-0400 Body temperature 98.1 [degF] Kia Sharma CNP Work Phone: [facility] Work Phone: 07-15-2021 15:57-0400 Body weight 60.78 kg Kia Sharma CNP Work Phone: [facility] Work Phone: 07-15-2021 15:57-0400 Diastolic blood pressure 62 mm[Hg] Kia Sharma CNP Work Phone: [facility] Work Phone: 07-15-2021 15:57-0400 Heart rate 68 /min Kia Sharma CNP Work Phone: [facility] Work Phone: 07-15-2021 15:57-0400 Heart Rate Rhythm 1 1 Kia Sharma CNP Work Phone: [facility] Work Phone: 07-15-2021 15:57-0400 SaO2% (BldA) [Mass fraction] 98 % Kia Sharma CNP Work Phone: [facility] Work Phone: 07-15-2021 15:57-0400 Systolic blood pressure 108 mm[Hg] Kia Sharma CNP Work Phone: [facility] Work Phone: 07-01-2021 17:32-0400 Body height 175.26 cm Kia Sharma CNP Work Phone: [facility] Work Phone: 07-01-2021 17:32-0400 Body mass index (BMI) [Ratio] 20.3 kg/m2 Kia Sharma CNP Work Phone: [facility] Work Phone: 07-01-2021 17:32-0400 Body surface area Derived from formula 1.76 m2 Kia Sharma CNP Work Phone: [facility] Work Phone: 07-01-2021 17:32-0400 Body temperature 97.5 [degF] Kia Sharma CNP Work Phone: [facility] Work Phone: 07-01-2021 17:32-0400 Body weight 62.32 kg Kia Sharma CNP Work Phone: [facility] Work Phone: 07-01-2021 17:32-0400 Diastolic blood pressure 58 mm[Hg] Kia Sharma CNP Work Phone: [facility] Work Phone: 07-01-2021 17:32-0400 Heart rate 775 /min Kia Sharma CNP Work Phone: [facility] Work Phone: 07-01-2021 17:32-0400 Heart Rate Rhythm 1 1 Kia Sharma CNP Work Phone: [facility] Work Phone: 07-01-2021 17:32-0400 SaO2% (BldA) [Mass fraction] 97 % Kia Sharma CNP Work Phone: [facility] Work Phone: 07-01-2021 17:32-0400 Systolic blood pressure 116 mm[Hg] Kia Sharma CNP Work Phone: [facility] Work Phone: 05-28-2021 18:41-0400 Body height 175.26 cm Kia Sharma CNP Work Phone: [facility] Work Phone: 05-28-2021 18:41-0400 Body mass index (BMI) [Ratio] 19.6 kg/m2 Kia Sharma CNP Work Phone: [facility] Work Phone: 05-28-2021 18:41-0400 Body surface area Derived from formula 1.74 m2 Kia Sharma CNP Work Phone: [facility] Work Phone: 05-28-2021 18:41-0400 Body temperature 97.7 [degF] Kia Sharma RADIATION THERAPY TECHNOLOGIST Work Phone: [facility] Work Phone: 05-28-2021 18:41-0400 Body weight 60.33 kg Kia Sharma RADIATION THERAPY TECHNOLOGIST Work Phone: [facility] Work Phone: 05-28-2021 18:41-0400 Diastolic blood pressure 76 mm[Hg] Kia Sharma RADIATION THERAPY TECHNOLOGIST Work Phone: [facility] Work Phone: 05-28-2021 18:41-0400 Heart rate 83 /min Kia Sharma RADIATION THERAPY TECHNOLOGIST Work Phone: [facility] Work Phone: 05-28-2021 18:41-0400 SaO2% (BldA) [Mass fraction] 98 % Kia Sharma RADIATION THERAPY TECHNOLOGIST Work Phone: [facility] Work Phone: 05-28-2021 18:41-0400 Systolic blood pressure 122 mm[Hg] Kia Sharma RADIATION THERAPY TECHNOLOGIST Work Phone: [facility] Work Phone: 10-14-2020 13:00-0400 Diastolic blood pressure 68 mm[Hg] Anthony Galloway MD Work Phone: [employer] Work Phone: 10-14-2020 13:00-0400 Heart rate 60 /min Anthony Galloway MD Work Phone: [employer] Work Phone: 10-14-2020 13:00-0400 Respiratory rate 16 /min Anthony Galloway MD Work Phone: [employer] Work Phone: 10-14-2020 13:00-0400 SaO2% (BldA) [Mass fraction] 99 % Anthony Galloway MD Work Phone: [employer] Work Phone: 10-14-2020 13:00-0400 Systolic blood pressure 114 mm[Hg] Anthony Galloway MD Work Phone: [employer] Work Phone: 10-14-2020 12:25-0400 Body temperature 97.39 [degF] Anthony Galloway MD Work Phone: [employer] Work Phone: 10-14-2020 09:35-0400 Body height 172.7 cm Anthony Galloway MD Work Phone: [employer] Work Phone: 10-14-2020 09:35-0400 Body mass index (BMI) [Ratio] 20.13 kg/m2 Anthony Galloway MD Work Phone: [employer] Work Phone: 10-14-2020 09:35-0400 Body weight 60.06 kg Anthony Galloway MD Work Phone: [employer] Work Phone: 05-27-2020 22:19-0400 Body Temperature 97.5 [degF] [facility] Work Phone: 05-27-2020 22:19-0400 BP Diastolic 79 mm[Hg] [facility] Work Phone: 05-27-2020 22:19-0400 BP Systolic 133 mm[Hg] [facility] Work Phone: 05-27-2020 22:19-0400 Pulse (Heart Rate) 94 /min [facility] Work Phone: 05-27-2020 22:19-0400 Pulse Oximetry 98 % [facility] Work Phone: 05-27-2020 22:19-0400 Respiratory Rate 16 /min [facility] Work Phone: 04-03-2020 16:21-0500 BMI (Body Mass Index) 21.9 kg/m2 [facility] Work Phone: 04-03-2020 16:21-0500 Body Temperature 97.9 [degF] [facility] Work Phone: 04-03-2020 16:21-0500 Body weight 67.13 kg [facility] Work Phone: 04-03-2020 16:21-0500 BP Diastolic 82 mm[Hg] [facility] Work Phone: 04-03-2020 16:21-0500 BP Systolic 138 mm[Hg] [facility] Work Phone: 04-03-2020 16:21-0500 BSA (Body Surface Area) 1.82 m2 [facility] Work Phone: 04-03-2020 16:21-0500 Height 175.26 cm [facility] Work Phone: 04-03-2020 16:21-0500 Pulse (Heart Rate) 77 /min [facility] Work Phone: 04-03-2020 16:21-0500 Pulse Oximetry 96 % [facility] Work Phone: 04-03-2020 16:21-0500 Respiratory Rate 18 /min [facility] Work Phone: 04-03-2020 16:21-0500 SaO2% (BldA) [Mass fraction] 96 % Kia Sharma CNP Work Phone: [facility] Work Phone: 03-20-2020 11:57-0500 BMI (Body Mass Index) 21.4 kg/m2 Kia Sharma [facility] Work Phone: 03-20-2020 11:57-0500 Body weight 65.77 kg Kia Sharma [facility] Work Phone: 03-20-2020 11:57-0500 BSA (Body Surface Area) 1.8 m2 Kia Sharma [facility] Work Phone: 03-20-2020 11:57-0500 Height 175.26 cm Kia Sharma [facility] Work Phone: 02-25-2020 21:28-0500 BMI (Body Mass Index) 23.22 kg/m2 [facility] [place] 02-25-2020 21:28-0500 Body Temperature 98.2 [degF] [place] 02-25-2020 21:28-0500 Body weight 70.31 kg [facility] [place] 02-25-2020 21:28-0500 BP Diastolic 76 mm[Hg] [place] 02-25-2020 21:28-0500 BP Systolic 144 mm[Hg] [facility] [place] 02-25-2020 21:28-0500 Height 174 cm [place] 02-25-2020 21:28-0500 Pulse (Heart Rate) 73 /min [place] 02-25-2020 21:28-0500 Pulse Oximetry 100 % [place] 02-25-2020 21:28-0500 Respiratory Rate 16 /min [place] 02-06-2020 17:44-0500 Respiratory Rate 16 /min [facility] [place] 02-06-2020 17:19-0500 BMI (Body Mass Index) 23.57 kg/m2 [facility] [place] 02-06-2020 17:19-0500 Body Temperature 99.61 [degF] [facility] [place] 02-06-2020 17:19-0500 Body weight 70.31 kg [facility] [place] 02-06-2020 17:19-0500 BP Diastolic 60 mm[Hg] [facility] [place] 02-06-2020 17:19-0500 BP Systolic 120 mm[Hg] [facility] [place] 02-06-2020 17:19-0500 Height 172.7 cm [facility] [place] 02-06-2020 17:19-0500 Pulse (Heart Rate) 81 /min [facility] 02-06-2020 17:19-0500 Pulse Oximetry 98 % [facility] [place] 12-24-2019 12:27-0400 BMI (Body Mass Index) 23.42 kg/m2 [facility] [place] 12-24-2019 12:27-0400 Body Temperature 97.9 [degF] [facility] [place] 12-24-2019 12:27-0400 Body weight 69.85 kg [facility] [place] 12-24-2019 12:27-0400 BP Diastolic 64 mm[Hg] [facility] [place] 12-24-2019 12:27-0400 BP Systolic 122 mm[Hg] [facility] [place] 12-24-2019 12:27-0400 Pulse (Heart Rate) 68 /min [facility] [place] 12-24-2019 12:27-0400 Pulse Oximetry 99 % [facility] [place] 12-24-2019 12:27-0400 Respiratory Rate 16 /min [facility] NEGATED: Highlighted row BMI (Body Mass Index) [facility] NEGATED: Highlighted row BMI (Body Mass Index) [facility] NEGATED: Highlighted row BMI (Body Mass Index) [facility] NEGATED: Highlighted row Body Temperature [facility] NEGATED: Highlighted row Body Temperature [facility] NEGATED: Highlighted row Body Temperature [facility] NEGATED: Highlighted row Body weight Bryce [facility] NEGATED: Highlighted row Body weight Bryce [facility] NEGATED: Highlighted row Body weight Bryce [facility] NEGATED: Highlighted row BP Diastolic Bryce [facility] NEGATED: Highlighted row BP Diastolic [facility]ce [facility] NEGATED: Highlighted row BP Diastolic Bryce [facility] NEGATED: Highlighted row BP Systolic [facility] NEGATED: Highlighted row BP Systolic [facility] NEGATED: Highlighted row BP Systolic [facility] NEGATED: Highlighted row Height [facility] NEGATED: Highlighted row Height [facility] NEGATED: Highlighted row Height [facility] NEGATED: Highlighted row Pulse (Heart Rate) [facility] NEGATED: Highlighted row Pulse (Heart Rate) [facility] NEGATED: Highlighted row Pulse (Heart Rate) [facility] NEGATED: Highlighted row Pulse Oximetry [facility] NEGATED: Highlighted row Pulse Oximetry [facility] NEGATED: Highlighted row Pulse Oximetry [facility] NEGATED: Highlighted row Respiratory Rate [facility] NEGATED: Highlighted row Respiratory Rate [facility] NEGATED: Highlighted row Respiratory Rate [facility] Encounters Encounter Date Encounter Type Care Provider Facility Start: 10-16-2023 End: 10-16-2023 ambulatory GENESIS OJEDA Not Available Start: 10-02-2023 End: 10-02-2023 ambulatory YURIY SABILLON Not Available Start: 09-29-2023 End: 09-29-2023 ambulatory [facility] Start: 09-18-2023 End: 09-18-2023 ambulatory GENESIS OJEDA Not Available Start: 09-12-2023 End: 09-12-2023 ambulatory BRENDA Duarte HAILEE [facility] Start: 09-12-2023 End: 09-12-2023 Subsequent hospital visit by physician Brenda Stephen REGIONAL LIAISON - CNM Work Phone: [facility] Labor [facility] Delivery Start: 09-04-2023 End: 09-04-2023 ambulatory VIPIN MICHAEL [facility] Start: 09-04-2023 End: 09-04-2023 ambulatory YURIY DALJIT Not Available Start: 09-02-2023 End: 09-03-2023 [facility] Start: 08-24-2023 End: 08-24-2023 ambulatory [facility] Start: 08-24-2023 End: 08-24-2023 Subsequent hospital visit by physician Jagdeep Lozoya Work Phone: [facility] Labor and Delivery Start: 08-03-2023 End: 08-03-2023 ambulatory GENESIS OJEDA Not Available Start: 07-06-2023 End: 07-06-2023 ambulatory YURIY DALJIT Not Available Start: 06-30-2023 End: 06-30-2023 Emergency department patient visit [facility] Start: 06-20-2023 End: 06-20-2023 ambulatory YURIY DALJIT Not Available Start: 05-23-2023 End: 05-23-2023 ambulatory YURIY DALJIT Not Available Start: 05-18-2023 End: 05-18-2023 Emergency department patient visit [facility] Start: 05-01-2023 End: 05-01-2023 ambulatory YURIY JC [facility] Start: 05-01-2023 End: 05-01-2023 Subsequent hospital visit by physician Kia Sharma REGIONAL LIAISON - RADIATION THERAPY TECHNOLOGIST Work Phone: [facility] Laboratory Start: 04-27-2023 End: 04-27-2023 ambulatory YURIY DALJIT Not Available Start: 08-03-2022 End: 08-03-2022 Emergency department patient visit Samara Paulino MD Work Phone: [facility] ED Comment on above: Flank pain (Primary Dx); Urinary tract infection without hematuria, site unspecified Start: 07-27-2022 End: 07-27-2022 FQHC visit, estab pt Mariposa Ducnan RADIATION THERAPY TECHNOLOGIST Work Phone: [facility] Work Phone: Start: 06-03-2022 End: 06-05-2022 Subsequent hospital visit by physician Kulwinder Das Radiologist [facility] Ultrasound Comment on above: Abscess of female br east Start: 04-24-2022 End: 04-24-2022 Emergency department patient visit Kia Sharma REGIONAL LIAISON - RADIATION THERAPY TECHNOLOGIST Work Phone: [facility] ED Comment on above: Nausea vomiting and diarrhea (Primary Dx) Start: 03-15-2022 End: 03-15-[address] YURIY SABILLON Facility: Start: 03-04-2022 End: 03-04-2022 Subsequent hospital visit by physician Geoff Miller MD Work Phone: [facility] OR Comment on above: Abscess of right lynette ast (Primary Dx) Start: 03-01-2022 End: 03-01-2022 Emergency department patient visit Nicholas Denton MD Work Phone: [facility] ED Comment on above: Cellulitis of right breast (Primary Dx) Start: 10-26-2021 End: 10-29-2021 Evaluation and management of inpatient PHYSICIAN NO FAMILY Facility:[facility] Start: 10-26-2021 End: 10-29-2021 Evaluation and management of inpatient PHYSICIAN NO FAMILY [facility] [place] [address] Start: 08-17-2021 End: 08-17-2021 FQHC visit, estab pt Halima Argueta [facility] Work Phone: [facility] Work Phone: Start: 08-17-2021 End: 08-17-2021 FQHC visit, estab pt Kia Sharma RADIATION THERAPY TECHNOLOGIST Work Phone: [facility] Work Phone: Start: 07-15-2021 End: 07-15-2021 FQ visit, estab pt Halima Argueta [employer] Work Phone: [facility] Work Phone: Start: 07-15-2021 End: 07-15-2021 FQHC visit, estab pt Kia Edith RADIATION THERAPY TECHNOLOGIST Work Phone: [facility] Work Phone: Start: 07-01-2021 End: 07-01-2021 FQHC visit, estab pt Kia Edith RADIATION THERAPY TECHNOLOGIST Work Phone: [facility] Work Phone: Start: 05-29-2021 End: 05-29-2021 ambulatory KIA SHARMA [facility] Start: 05-28-2021 End: 05-28-2021 Subsequent hospital visit by physician AGNES PRESLEY [facility] Start: 05-28-2021 End: 05-28-2021 FQHC visit, estab pt Kia Sharma RADIATION THERAPY TECHNOLOGIST Work Phone: [facility] Work Phone: Start: 03-25-2021 End: 03-25-2021 Subsequent hospital visit by physician [facility] Laboratory Comment on above: Vaginal discharge Start: 03-10-2021 End: 03-10-2021 Subsequent hospital visit by physician [facility] Comment on above: Irregular menstrual cycle Start: 10-14-2020 End: 10-14-2020 Subsequent hospital visit by physician Anthony Galloway MD Work Phone: [facility] OR Comment on above: 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) Start: 10-09-2020 End: 10-13-2020 Patient encounter status [facility] Schedule [facility] PRE ADMIT Start: 10-09-2020 End: 10-13-2020 Subsequent hospital visit by physician Kulwinder Covid19 Pat Screening Schedule [facility] PRE ADMIT Comment on above: Preop testing Start: 09-25-2020 End: 09-25-2020 Patient encounter status [facility] Schedule [facility] PRE ADMIT Start: 09-25-2020 End: 09-25-2020 Subsequent hospital visit by physician Kulwinder Covid19 Pat Screening Schedule [facility] PRE ADMIT Comment on above: Preop testing (Prima ry Dx) Start: 08-19-2020 End: 08-19-2020 Subsequent hospital visit by physician [facility] Laboratory Comment on above: 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 Start: 05-27-2020 End: 05-27-2020 Emergency department patient visit Sid Norris Work Phone: [facility] ED Comment on above: Dental infection (Pr imary Dx) Start: 04-03-2020 End: 04-03-2020 Established patient Kia Sharma Work Phone: [facility] Work Phone: Start: 04-03-2020 End: 04-03-2020 General Kia Sharma [facility] Work Phone: [facility] Work Phone: Start: 04-03-2020 End: 04-03-2020 General Halima Argueta [employer] Work Phone: [facility] Work Phone: Start: 04-02-2020 End: 04-02-2020 Subsequent hospital visit by physician [facility] Laboratory Comment on above: Women's annual routi ne gynecological examination Start: 03-20-2020 End: 03-20-2020 General Halima Argueta Work Phone: [facility] Work Phone: Start: 03-20-2020 End: 03-20-2020 Telemedicine consultation with patient Kia Sharma Work Phone: [facility] Work Phone: Start: 02-25-2020 End: 02-25-2020 Emergency department patient visit Sid Norris Work Phone: [facility] ED Comment on above: Bacterial vaginosis (Primary Dx); Vaginal bleeding Start: 02-06-2020 End: 02-06-2020 Emergency department patient visit [facility] ED Comment on above: Dental abscess (Prim rachele Dx); Dental caries Start: 12-24-2019 End: 12-24-2019 Emergency department patient visit [facility] ED Comment on above: Dental infection (Pr imary Dx) Start: 02-13-2018 End: 02-15-2018 Evaluation and management of inpatient FEI LOO [facility] Start: 02-20-2016 End: 02-23-2016 [facility] Start: 05-12-2015 End: 05-15-2015 [facility] Start: 02-11-2014 End: 02-14-2014 Evaluation and management of inpatient [facility] Start: 04-28-2007 End: 05-28-2007 Discharged Rec[facility] Start: 02-27-2007 End: 03-29-2007 [facility]charged [facility] Start: 01-27-2007 End: 02-26-2007 [facility]charged [facility] Start: 11-27-2006 End: 12-27-2006 Discharged [facility] Start: 09-27-2006 End: 10-27-2006 [facility]charged [facility] Start: 08-27-2006 End: 09-26-2006 [facility]charged [facility] Start: 07-28-2006 End: 09-26-2006 [facility]charged [facility] Start: 06-27-2006 End: 07-27-2006 Discharged Recurring [facility] Start: 05-28-2006 End: 06-26-2006 [facility] Start: 04-27-2006 End: 05-27-[address] [facility] Start: 03-30-2006 End: 04-26-2006 Discharged Recurring [facility] Start: 02-27-2006 End: 03-29-2006 [facility] Start: 01-27-2006 End: 02-26-2006 [facility] Start: 12-28-2005 End: 01-26-2006 [facility]charged [facility] Start: 11-27-2005 End: 12-27-2005 Discharged [facility] Start: 10-28-2005 End: 11-26-2005 [facility]charged [facility] Start: 09-27-2005 End: 11-26-2005 [facility]charged [facility] Start: 09-27-2005 End: 10-27-2005 Discharged [facility] Start: 08-27-2005 End: 09-26-2005 [facility] Start: 06-27-2005 End: 07-27-2005 [facility]charged [facility] Start: 04-27-2005 End: 05-27-2005 Discharged [facility] Start: 03-30-2005 End: 04-26-2005 Discharged Recurring [facility] Start: 02-27-2005 End: 03-29-2005 Discharged [facility]ring [facility] Start: 01-27-2005 End: 02-26-2005 Discharged [facility] Start: 12-28-2004 Registered Recurring [facility] Start: 11-27-2004 End: 12-27-2004 Discharged [facility] Start: 11-27-2004 End: 12-27-2004 Discharged Recurring [facility] Start: 11-27-2004 Registered Recurring [facility] Start: 10-28-2004 End: 11-26-2004 Discharged Recurring [facility] Start: 10-28-2004 End: 11-26-2004 Discharged Recurring [facility] Start: 09-27-2004 End: 10-27-2004 Discharged Recurring [facility] Start: 09-27-2004 End: 10-27-2004 Discharged Recurring [facility] Start: 09-02-2004 End: 09-26-2004 Discharged [facility] Start: 09-02-2004 End: 09-26-2004 Discharged [facility] Start: 05-17-2000 End: 05-27-2000 [facility]charged [facility] Procedures Date Procedure Procedure Detail Performing Clinician Start: 09-12-2023 Urnls dip stick/tabl et rgnt auto w/o microscopy Brenda Stephen REGIONAL LIAISON - CNM Work Phone: Start: 09-02-2023 H/O: section History of delivery affecting Brenda Hailee REGIONAL LIAISON - CNM Work Phone: Start: 08-24-2023 Urinalysis microscop ic only Jagdeep Lozoyau DO Work Phone: Start: 08-24-2023 Urnls dip [...] pressure < 80 mm hg Mariposa Duncan CNP Work Phone: Start: 07-27-2022 Most recent systolic blood pressure <130 mm hg Mariposa Duncan CNP Work Phone: Start: 07-27-2022 Urine test visual color cmprsn meths Mariposa Duncan RADIATION THERAPY TECHNOLOGIST Work Phone: Start: 06-03-2022 Diagnostic mammograp hy [...] test visual color cmprsn meths Peterson Benito REGIONAL LIAISON - RADIATION THERAPY TECHNOLOGIST Work Phone: Start: 08-17-2021 Most recent diastoli c blood pressure < 80 mm hg Kia Sharma RADIATION THERAPY TECHNOLOGIST Work Phone: Start: 08-17-2021 Most recent systolic blood pressure <130 mm hg Kia Sharma RADIATION THERAPY TECHNOLOGIST Work Phone: Start: 08-17-2021 Psychotherapy w/hussein ent 30 minutes Halima Argueta LPCC-S Work Phone: Start: 07-15-2021 Most recent diastoli c blood pressure < 80 mm hg Kia Sharma RADIATION THERAPY TECHNOLOGIST Work Phone: Start: 07-15-2021 Most recent systolic blood pressure <130 mm hg Kia Sharma RADIATION THERAPY TECHNOLOGIST Work Phone: Start: 07-15-2021 Psychotherapy w/hussein ent 30 minutes Halima Argueta LPCC-S Work Phone: Start: 07-01-2021 Most recent diastoli c blood pressure < 80 mm hg Kia Sharma RADIATION THERAPY TECHNOLOGIST Work Phone: Start: 07-01-2021 Most recent systolic blood pressure <130 mm hg Kia Sharma [facility] Work Phone: Start: 05-28-2021 Antibody hiv-1&hiv-2 single result Kia Sharma [facility] Work Phone: Start: 05-28-2021 Most recent diastoli c blood pressure < 80 mm hg Kia Sharma [facility] Work Phone: Start: 05-28-2021 Most recent systolic blood pressure <130 mm hg Kia Sharma [facility] Work Phone: Start: 05-28-2021 Pt-focused hlth risk assmt score doc stnd instrm Kia Sharma [facility] Work Phone: Start: 05-28-2021 Viral screening Visit For: Scr eening Exam For Herpes Kia Sharma RADIATION THERAPY TECHNOLOGIST Work Phone: Start: 03-10-2021 End: 03-10-2021 Gonadotropin follicle stimulating hormone Anthony Galloway MD Work Phone: Start: 10-14-2020 Urine test visual color cmprsn meths Anthony Galloway MD Work Phone: Start: 10-09-2020 COVID-19 Sabas siddiqi MD Work Phone: Start: 04-02-2020 Microscopic observat ion [Identifier] in Cervix by Cyto stain Start: 03-20-2020 delivery only Kia Sharma Start: 03-20-2020 section Kia Sharma [facility] Work Phone: Start: 03-20-2020 [...] stick/tabl et rgnt auto w/o microscopy Sid Jace Norris Work Phone: Start: 02-15-2018 DISCHARGE PATIENT JUSTINE LOO Start: 02-13-2018 IP CONSULT TO HISTOR Y AND PHYSICAL FEI LOO Start: 02-13-2018 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 GENERAL FEI 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 Start: 02-13-2018 FULL CODE FEI AMIN 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 Start: 02-13-2018 URINE DRUG SCREEN JUSTINE LOO Start: 02-13-2018 Urine test visual color cmprsn meths FEI LOO Start: 02-13-2018 VITAL SIGNS FEI AMIN 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 Start: 02-13-2018 PATIENT STATUS (DIRECT) FEI LOO SARS Antigen (LFIA) PHYSICIA N NO FAMILY Plan of Treatment Date Care Activity Detail Author Start: 2053 Respiratory Syncytia l Virus (RSV) or age 60 yrs+ (1 - 1-dose 60+ series) Respiratory Syncytial Virus (RSV) or age 60 yrs+ (1 - 1-dose 60+ series) [facility] Start: 03-21-2027 DTaP/Tdap/Td vaccine (2 - Td or Tdap) DTaP/Tdap/Td vaccine (2 - Td or Tdap) [facility] Start: 03-21-2027 DTaP/Tdap/Td vaccine (2 - Td) DTaP/Tdap/Td vaccine (2 - Td) [place] Start: 04-02-2025 Screening for malign ant neoplasm of cervix [facility] Start: 10-29-2023 Respiratory Syncytia l Virus (RSV) or age 60 yrs+ (1 - Risk 1-dose series) Respiratory Syncytial Virus (RSV) or age 60 yrs+ (1 - Risk 1-dose series) [facility] Start: 09-28-2023 Influenza vaccination [facility] Start: 08-25-2023 Tdap Vaccine during Tdap Vaccine during [facility] Start: 04-02-2023 Screening for malign ant neoplasm of cervix [facility] Start: 09-27-2022 Influenza vaccination [facility] Start: 08-25-2022 FQHC visit, estab pt Medical E stablished Patient [facility] Work Phone: Start: 07-27-2022 End: 07-27-2022 Patient education based on identified need [facility] Start: 07-27-2022 CBC W Auto Different ial panel - Blood [facility] Start: 04-25-2022 End: 04-25-2022 Patient encounter procedure 04/25/2022 Appointment Radiology Radiologist, [facility] Start: 03-04-2022 End: 03-04-2022 Incision & drainage abscess simple/single BREAST INCISION AND DRAINAGE Abscess of right breast 03/04/2022 12:36 PM EST [facility] Start: 10-29-2021 [facility] Work Phone: Start: 10-28-2021 Influenza vaccination Flu vacc ine (Season Ended) [facility] Start: 10-26-2021 Referral to Interceptor Operator [facility] Work Phone: Start: 10-26-2021 Hospital admission [facility] Work Phone: Start: 09-27-2021 Influenza vaccination Flu vaccine (# 1) SARWAT ROSALIO [facility] Start: 09-16-2021 FQHC visit, estab pt Medical E stablished Patient [facility] Work Phone: Start: 08-17-2021 FQHC visit, estab pt Medical E stablished Patient [facility] Work Phone: Start: 08-17-2021 End: 08-17-2021 Patient education based on identified need [facility] Start: 07-15-2021 FQHC visit, estab pt Medical E stablished Patient [facility] Work Phone: Start: 07-15-2021 End: 07-15-2021 Patient education based on identified need [facility] Start: 07-01-2021 End: 07-01-2021 Patient education based on identified need Health Replaced by [facility] Start: 05-28-2021 End: 05-28-2021 Patient education based on identified need [facility] Start: 04-14-2021 End: 04-14-2021 Patient encounter procedure 04/14/2021 Office Visit Obstetrics and Gynecology Anthony Galloway MD [address] [place] [address] [facility] Start: 03-05-2021 FQHC visit, estab pt Medical E stablished Patient [facility] Work Phone: Start: 10-28-2020 Influenza vaccination [facility] Start: 10-14-2020 End: 10-14-2020 Admission to same day surgery center 10/14/2020 Surgery IP Unit Anthony Galloway MD [address] [place] [address] DILATATION AND CURETTAGE LEEP-ENDOCERVICAL CURETTAGE [facility] OR Comment on above: DILATATION AND CURET TAGE LEEP-ENDOCERVICAL CURETTAGE Start: 10-14-2020 Subsequent hospital visit by physician 10/14/2020 Hospital Encounter IP Unit Anthony Galloway MD [address] [facility] [place] [address] [facility] Start: 10-09-2020 End: 10-09-2020 Patient encounter procedure 10/09/2020 Appointment Pre-Admission Testing [facility] PRE ADMIT Start: 09-25-2020 End: 09-25-2021 COVID-19 COVID-19 Lab Routine Preop testing Expected: 09/25/2020, Expires: 09/25/2021 [facility] Work Phone: Comment on above: Expected: 09/25/2020 , Expires: 09/25/2021 Start: 04-23-2020 End: 04-23-2020 Procedure visit 04/23/2020 Procedure visit Obstetrics and Gynecology Anthony Galloway MD [address] [place] [address] [facility] Start: 04-03-2020 End: 04-03-2020 Patient education based on identified need [facility] Start: 04-03-2020 Medical Establ ished Patient [facility] Work Phone: Start: 03-20-2020 End: 03-20-2020 Patient education based on identified need Health Replaced by [facility] Start: 10-29-2019 Influenza vaccination Flu vaccine (# 1) [place], [place] Start: 2014 Screening for malign ant neoplasm of cervix Cervical cancer screen [place], [place] Start: 2011 Hepatitis C screening Hepatitis C sc reen [facility] Start: 2009 COVID-19 Vaccine (1) COVID-19 Vaccin e (1) [facility] Work Phone: Start: 2008 HIV screening HIV screen [facility] Start: 2005 COVID-19 Vaccine (1) COVID-19 Vaccin e (1) [facility] Work Phone: Start: 2005 Depression Monitoring Depression Mon [facility] Start: 2005 Depression Screen Depression Screen [facility] Start: 2004 HPV vaccine (1 - 2-d ose series) HPV vaccine (1 - 2-dose series) [place], [place] Start: 1999 Pneumococcal 0-64 ye ars Vaccine (1 - PCV) Pneumococcal 0-64 years Vaccine (1 - PCV) [facility] Start: 1999 Pneumococcal 0-64 ye ars Vaccine (1 of 1 - PPSV23) Pneumococcal 0-64 years Vaccine (1 of 1 - PPSV23) [place] Start: 1999 Pneumococcal 0-64 ye ars Vaccine (1 of 2 - PCV) Pneumococcal 0-64 years Vaccine (1 of 2 - PCV) [facility] Start: 1999 Pneumococcal 0-64 ye ars Vaccine (1 of 2 - PPSV23) Pneumococcal 0-64 years Vaccine (1 of 2 - PPSV23) [facility] Start: 1998 COVID-19 Vaccine (1) COVID-19 Vaccin e (1) [facility] Start: 1994 Varicella vaccine (1 of 2 - 2-dose childhood series) Varicella vaccine (1 of 2 - 2-dose childhood series) [facility] Start: 1993 COVID-19 Vaccine (#1) COVID-19 Vacci ne (#1) [facility] Start: 1993 Hepatitis B vaccine (1 of 3 - 3-dose series) Hepatitis B vaccine (1 of 3 - 3-dose series) [facility] Start: 1993 [facility]atitis C [facility] End: 08-24-2023 Bacteria identified in Urine by Culture Urine culture Microbiology Routine One Time for 1 Occurrences starting 08/24/2023 until 08/24/2023 [facility] Comment on above: One Time for 1 Occur rences starting 08/24/2023 until 08/24/2023 End: 09-12-2023 Bacteria identified in Urine by Culture Urine culture Microbiology Routine One Time for 1 Occurrences starting 09/12/2023 until 09/12/2023 [facility] Comment on above: One Time for 1 Occur rences starting 09/12/2023 until 09/12/2023 End: 02-25-2020 C.trachomatis N.gonorrhoeae DNA C.trachomatis N.gonorrhoeae DNA Microbiology STAT One Time for 1 Occurrences starting 02/25/2020 until 02/25/2020 [place] Comment on above: One Time for 1 Occur rences starting 02/25/2020 until 02/25/2020 C.trachomatis N.gonorrhoeae DNA C.trachomatis N.gonorrhoeae DNA Microbiology STAT 02/25/2020 10:29 PM EST [place], [place] Culture, Anaerobic a nd Aerobic [facility] Work Phone: Comment on above: Release Upon Orderin g for 1 Occurrences starting 03/04/2022 End: 03-25-2021 Culture, Genital [facility] Work Phone: Comment on above: 1 Occurrences starti ng 03/25/2021 until 03/25/2021 End: 08-03-2022 Culture, Urine [facility] Work Phone: Comment on above: Once for 1 Occurrenc es starting 08/03/2022 until 08/03/2022 End: 05-01-2023 Culture, Urine [facility] Phone: Comment on above: Once for 1 Occurrenc es starting 05/01/2023 until 05/01/2023 End: 05-29-2021 Culture, Virus, Non Respiratory Culture, Virus, Non Respiratory Microbiology Routine Once for 1 Occurrences starting 05/29/2021 until 05/29/2021 [employer] Phone: Comment on above: Once for 1 Occurrenc es starting 05/29/2021 until 05/29/2021 Culture, Virus, Non Respiratory Culture, Virus, Non Respiratory Microbiology Routine 05/28/2021 11:57 PM EDT [employer] Phone: End: 04-02-2020 Cytopathology procedure, preparation of smear, genital source PAP SMEAR Lab Routine Women's annual routine gynecological examination 1 Occurrences starting 04/02/2020 until 04/02/[facility] [place] Comment on above: 1 Occurrences starti ng 04/02/2020 until 04/02/2020 nonstress test nonst ress test OB Routine Daily until discontinued starting 08/25/2023 [employer] Phone: Comment on above: Daily until disconti nued starting 08/25/2023 nonstress test nonst ress test OB Routine Daily until discontinued starting 09/13/2023 [employer] Phone: Comment on above: Daily until disconti nued starting 09/13/2023 End: 05-01-2023 HIV Screen [employer] Comment on above: Once for 1 Occurrenc es starting 05/01/2023 until 05/01/2023 End: 03-04-2022 INITIATE PACU OXYGEN THERAPY PROTOCOL Initiate PACU Oxygen Therapy Protocol Respiratory Care Routine Continuous until discontinued starting 03/04/2022 [employer] Phone: Comment on above: Continuous until dis continued starting 03/04/2022 Oxygen therapy [Mini mum Data Set] Initiate Oxygen Therapy Protocol Respiratory Care Routine Daily until discontinued starting 10/14/2020 [employer] Phone: Comment on above: Daily until disconti nued starting 10/14/2020 Oxygen therapy [Mini mum Data Set] Initiate Oxygen Therapy Protocol Respiratory Care Routine As Needed until discontinued starting 03/04/2022 [employer] Work Phone: Comment on above: As Needed until disc ontinued starting 03/04/2022 Patient Education Schizophrenia (DC) [facility] [place] Instructions [facility] Work Phone: Patient referral [facility] Work Phone: Phase I & II - meter ed glucose Phase I & II - metered glucose Point of Care Testing Routine As Needed until discontinued starting 10/14/2020 [employer] Phone: Comment on above: As Needed until disc ontinued starting 10/14/2020 End: 08-19-2020 Surgical Pathology Surgical Pathology Lab Routine HGSIL (high grade squamous intraepithelial lesion) on Pap smear of cervix 1 Occurrences starting 08/19/2020 until 08/19/2020 [employer] Phone: Comment on above: 1 Occurrences starti ng 08/19/2020 until 08/19/2020 Surgical Pathology Surgical Path ology Lab Routine Release Upon Ordering for 1 Occurrences starting 10/14/2020 [employer] Phone: Comment on above: Release Upon Orderin g for 1 Occurrences starting 10/14/2020 End: 08-24-2023 SVE SVE Point of Care Testing Routine One Time for 1 Occurrences starting 08/24/2023 until 08/24/2023 [employer] Comment on above: One Time for 1 Occur rences starting 08/24/2023 until 08/24/2023 End: 09-12-2023 SVE SVE Point of Care Testing Routine One Time for 1 Occurrences starting 09/12/2023 until 09/12/2023 [employer] Comment on above: One Time for 1 Occur rences starting 09/12/2023 until 09/12/2023 End: 05-01-2023 Calixto Womack [facility] Comment on above: Once for 1 Occurrenc es starting 05/01/2023 until 05/01/2023 Immunizations Immunization Date Immunization Notes Care Provider Ralf kim 02-26-2019 Influenza, injectabl e, Madin Hamilton Canine Kidney, preservative free, quadrivalent PHYSICIAN NO [facility] Payers Date Payer Category Payer Private Health Insurance [id number] 2021 Self-pay 1995 Unknown [id number] 2.16.8 [id number] 1993 Unknown [id number] 2.16. [id number] 1993 Unknown [id number] 2.16.84 0.1.893471.3.579.2.593 1993 Unknown [id number] 2.16.8 40.1.039043.3.579.2.173 1993 Unknown [id number] 2.16.8 40.1.068625.3.579.2.173 1993 Unknown [id number] 2.16.8 40.1.441665.3.579.2.173 1993 Unknown [id number] 2.16.8 40.1.856015.3.579.2.173 1993 Unknown [id number] 2.16.8 40.1.057767.3.579.2.173 1993 Unknown [id number] 2.16.8 40.1.493106.3.579.2.173 1993 Unknown [id number] 2.16.8 40.1.621844.3.579.2.173 1993 Unknown [id number] 2.16.8 40.1.972852.3.579.2.173 1993 Unknown [id number] 2.16.84 0.1.597107.3.579.2.1259 1993 Unknown [id number] 2.16.84 0.1.726945.3.579.2.1259 1993 Unknown [id number] 2.16.84 0.1.487183.3.579.2.1259 1993 Unknown [id number] 2.16.84 0.1.298063.3.579.2.9 1993 Unknown [id number] 2.16.84 0.1.994185.3.579.2.1259 1993 Unknown [id number] 2.16.84 0.1.227372.3.579.2.9 1993 Unknown [id number] 2.16.84 0.1.302789.3.579.2.9 1993 Unknown [id number] 2.16.84 0.1.143371.3.579.2.9 1993 Unknown [id number] 2.16.84 0.1.292368.3.579.2.1259 1961 Medicaid [id number] Unknown [id number] 2.16.8 [id number] Social History Date Type Detail Facility Start: 12-24-2019 End: 03-01-2022 Tobacco smoking status NHIS Current every day smoker [place], [place] History of tobacco use Cigarette Smoker [place], [place] Start: 12-24-2019 End: 09-04-2023 Cigarettes smoked current (pack per day) - Reported [place] Start: 12-24-2019 End: 09-12-2023 Tobacco use and exposure Never used [place], [place] Start: 12-24-2019 End: 09-12-2023 Alcohol intake Current non-drinker of alcohol (finding) [place], [place] Start: 1995 Sex Assigned At Not on file [place] Start: 02-19-2022 End: 04-24-2022 Exposure to SARS-CoV-2 (event) Not sure [facility] [place], [place] Assertion Exposure to poll ution (event) [facility] Assertion Tobacco user (finding) [facility] Tobacco smoking status Unknown i f ever smoked [facility] Work Phone: Assertion Social drinker (finding) [facility] Assertion Sexually active (finding) [facility] Assertion [facility] Assertion Gender identity finding (finding) [facility] Assertion Finding of sexua l orientation (finding) [facility] Assertion Moderate cigaret te smoker (10-19 cigs/day) (finding) [facility] Assertion Heavy cigarette smoker (20-39 cigs/day) (finding) [facility] Start: 10-27-2021 Assertion Smoker (finding) [facility] Start: 1995 Sex Assigned At Female F [facility] Start: 03-01-2022 History SDOH Alcohol Frequency 1 [employer] Work Phone: Start: 03-01-2022 History SDOH Alcohol Std Drinks 0 [employer] Work Phone: Start: 03-04-2022 Alcohol Comment barely ever- sociall y [employer] Work Phone: Start: 03-01-2022 End: 09-04-2023 Alcohol Use Disorder Identification Test - Consumption [AUDIT-C] [employer] How often to you hav e a drink containing alcohol? Never [employer] Start: 09-12-2023 Tobacco smoking stat us MTIS Ex-smoker [employer] Start: 03-03-2023 [facility] [employer] NEGATED: Highlighted row Assertion [facility] NEGATED: Highlighted row Assertion Current drinker of alcohol (finding) [facility] NEGATED: Highlighted row Assertion Exposure to pollution (event) [facility] Work Phone: Goals Date Patient Goal Desired Activity /State Functional Status Date Assessment Result Facility 10-29-2021 Functional status Patient at Baseline [facility] Work Phone: Mental Status Date Assessment Result Facility 10-29-2021 Cognitive function Cognitive Sta tus Patient at Baseline [facility] Work Phone: Cognitive function Cognitive fun ctioning was normal Cognitive function finding (finding) [facility] Work Phone: Clinical Notes 03-20-2020 to 09-12-2023 Ana Riley RN - 09/12/2023 7:09 PM Ana Gardner RN - 09/12/2023 6:31 PM EDAna Lang [...] may be discharged. 28yo F arrives to [facility] with c/o vaginal discharge, [...] him with her next appointment being on Michael. Pt reports she was concerned if she would need to deliver d/t symptoms. Educated pt that she would be shipped to [place] as we do not deliver less than 35 weeks unless emergent. Pt placed on EFM at this time, urine specimen collected and sent to lab. documented in this encounter [facility] 09-12-2023 [facility] Discharg e instructions Ana Riley RN - 09/12/2023 6:51 PM EDT OUTPATIENT DISCHARGE Dr Delano Stephen [facility] [address] [id number] [phone] ACTIVITY LIMITATIONS: ( )Up and about as [...] be sent through Care Everywhere.: Abdominal Pain (Dominican)documented in this encounter [facility] 08-24-2023 [facility] Discharg e Iman Mark RN - 08/24/2023 8:40 PM EDT OUTPATIENT DISCHARGE Dr. Laverne Meyer [facility] Dr. Delano Kruse [facility] [address] [facility] [address] [place] ACTIVITY LIMITATIONS: ( x )Up and about [...] AND DELIVERY . documented in this encounter [facility] 08-03-2022 Hospital Discharg e instructions [...] cannot be sent through Care Everywhere.Flank Pain (Dominican)UTI (Urinary Tract Infection): Female (Dominican)documented in this encounter [facility]CDU[facility] Work Phone: 07-27-2022 Instructions Includes: Instructions for all patient encounters Discussed nutritional needs teach healthy choices including fruits and vegetables Last Documented On 3 6:56PM ; [facility] Patient education about a pr oper diet Last Documented On 3 6:56PM ; [facility] Patient education about an a sthma action plan Last Documented On 3 8:31AM ; [facility] Discussed concerns about exe rcise : promote physical activity ~ ~Will add symbicort ~ ~Follow up in one month Last Documented On 3 10:19AM ; [facility] Discussed current self-care methods/coping skills. ~Validated and normalized pt?s feelings while assisting patient process recent events. ~Discussed ongoing counseling. ~Discussed lifestyle changes to address chronic illness. ~Supported patient's personal health goals Last Documented On 2 4:59PM ; [facility] Discussed nutritional needs teach healthy choices including fruits and vegetables Last Documented On 2 4:50PM ; [facility] Patient education about a pr oper diet Last Documented On 2 4:50PM ; [facility] Discussed concerns about exe rcise : promote physical activity Last Documented On 2 4:50PM ; [facility] Discussed current self-care methods/coping skills. ~Validated and normalized pt?s feelings while assisting patient process recent events. ~Discussed ongoing counseling. ~Discussed lifestyle changes to address chronic illness. ~Supported patient's personal health goals Last Documented On 2 8:09PM ; [facility] Discussed nutritional needs teach healthy choices including fruits and vegetables Last Documented On 2 4:02PM ; [facility] Patient education about a pr oper diet Last Documented On 2 4:02PM ; [facility] Discussed concerns about exe rcise : promote physical activity Last Documented On 2 4:02PM ; [facility] Discussed nutritional needs teach healthy choices including fruits and vegetables Last Documented On 2 5:37PM ; [facility] Patient education about a pr oper diet Last Documented On 2 5:37PM ; [facility] Discussed concerns about exe rcise : promote physical activity Last Documented On 2 5:37PM ; [facility] Discussed nutritional needs teach healthy choices including fruits and vegetables Last Documented On 2 6:48PM ; [facility] Patient education about a pr oper diet Last Documented On 2 6:48PM ; [facility] Discussed concerns about exe rcise : promote physical activity Last Documented On 2 6:48PM ; [facility] Discussed nutritional needs teach healthy choices including fruits and vegetables Last Documented On 1 4:21PM ; [facility] Patient education about a pr oper diet Last Documented On 1 4:21PM ; [facility] Discussed concerns about exe rcise : promote physical activity Last Documented On 1 4:21PM ; [facility] Explored current self-care m ethods and encouraged patient to continue using them Last Documented On 1 7:54PM ; [facility] Discussed nutritional needs teach healthy choices including fruits and vegetables Last Documented On 1 11:53AM ; [facility] Patient education about a pr oper diet Last Documented On 1 11:53AM ; [facility] Discussed concerns about exe rcise : promote physical activity Last Documented On 1 11:53AM ; [facility] Work Phone: 1(682) 246-877905-31-2023 Evaluation note Includes: Assessments for all patient encounters Findings Encounter Date [Body mass index [BMI] 22.0- 22.9, adult] assessment of body mass index Medical Established Patient with Mariposa Rossdenton [facility] 07/27/2022 Last Documented On 3 10:19AM ; [facility] Diabetes Risk Test Score was 0.0 score 07/27/2022 Medical Established Patient with Mariposa Perla [facility] 07/27/2022 Last Documented On 3 10:19AM ; [facility] Esophageal reflux without esophagitis Me dical Established Patient with Mariposa Duncan [facility] 07/27/2022 Last Documented On 3 10:19AM ; [facility] Schizoaffective disorder Established Patient with Halima Argueta [facility] 08/17/2021 Last Documented On 2 9:40PM ; [facility] Asthma Medical Established Patient with Kia Edith [facility] 08/17/2021 Last Documented On 2 6:20PM ; [facility] Esophageal reflux without esophagitis Me dical Established Patient with Kia Edith [facility] 08/17/2021 Last Documented On 2 6:20PM ; [facility] Schizoaffective disorder Medical Establi shed Patient with Kia Sharma [facility] 08/17/2021 Last Documented On 2 6:20PM ; [facility] Z68.20 - Body mass index [BM I] 20.0-20.9, adult Medical Established Patient with Kia Edith [facility] 08/17/2021 Last Documented On 2 6:20PM ; [facility] Schizoaffective disorder Established Patient with Halima Argueta [facility] 07/15/2021 Last Documented On 2 11:18AM ; [facility] Schizoaffective disorder Established Patient with Halima Argueta [facility] 07/15/2021 Last Documented On 2 11:18AM ; [facility] Bipolar disorder NOS Medical Established Patient with Kia Sharma [facility] 07/15/2021 Last Documented On 2 9:30AM ; [facility] Esophageal reflux without esophagitis Me dical Established Patient with Kia Edith [facility] 07/15/2021 Last Documented On 2 9:30AM ; [facility] Herpes simplex type I Medical Established Patien t with Kia Sharma [facility] 07/15/2021 Last Documented On 2 9:30AM ; [facility] Z68.1 - Body mass index [BMI ] 19.9 or less, adult Medical Established Patient with Kia Edith [facility] 07/15/2021 Last Documented On 2 9:30AM ; [facility] Asthma Medical Established Patient with Kia Sharma [employer] TECHN[employer] 07/01/2021 Last Documented On 2 7:44PM ; [facility] Bipolar disorder NOS Medical Established Patient with Kia Edith [employer]IATION THERAPY TECHNOLOGIST 07/01/2021 Last Documented On 2 7:44PM ; [facility] Herpes simplex type I Medical Established Patien t with Kia Edith RADIATION THERAPY TECHNOLOGIST 07/01/2021 Last Documented On 2 7:44PM ; [facility] Schizoaffective disorder Medical Establi shed Patient with Kia Edith [employer] THERAPY TECHNOLOGIST 07/01/2021 Last Documented On 2 7:44PM ; [facility] Z68.20 - Body mass index [BM I] 20.0-20.9, adult Medical Established Patient with Kia Ediht [employer] THERAPY TECHNOLOGIST 07/01/2021 Last Documented On 2 7:44PM ; [facility] Diabetes Risk Test Score was one score 05/28/2021 Medical Established Patient with Kia Sharma [employer]IATION THERAPY TECHNOLOGIST 05/28/2021 Last Documented On 2 8:39AM ; [facility] Herpes simplex type I Medical Established Patien t with Kia Sharma RADIATION THERAPY TECHNOLOGIST 05/28/2021 Last Documented On 2 8:39AM ; [facility] No cough Medical Established Patient with Kiajace Sharma RADIATION THERAPY TECHNOLOGIST 05/28/2021 Last Documented On 2 8:39AM ; [facility] Visit for: screening for hum an immunodeficiency virus Medical Established Patient with Kia Sharma RADIATION THERAPY TECHNOLOGIST 05/28/2021 Last Documented On 2 8:39AM ; [facility] Z11.59 - Encounter for nettie kauffman for other viral diseases Medical Established Patient with Kia Edith RADIATION THERAPY TECHNOLOGIST 05/28/2021 Last Documented On 2 8:39AM ; [facility] Z68.1 - Body mass index [BMI ] 19.9 or less, adult Medical Established Patient with Kia Edith RADIATION THERAPY TECHNOLOGIST 05/28/2021 Last Documented On 2 8:39AM ; [facility] Asthma Medical Established Patient with Kia Edith RADIATION THERAPY TECHNOLOGIST 04/03/2020 Last Documented On 1 1:12PM ; [facility] Body mass index Medical Established Patient with Kia Sharma RADIATION THERAPY TECHNOLOGIST 04/03/2020 Last Documented On 1 1:12PM ; [facility] Esophageal reflux without esophagitis Me dical Established Patient with Kia Sharma RADIATION THERAPY TECHNOLOGIST 04/03/2020 Last Documented On 1 1:12PM ; [facility] Lower backache Medical Established Patient with Kia Sharma RADIATION THERAPY TECHNOLOGIST 04/03/2020 Last Documented On 1 1:12PM ; [facility] Bipolar disorder (per denia vega, diagnosed w/both Bipolar I & II) Telebehavioral Health with Halima Argueta [facility] 03/20/2020 Last Documented On 1 7:55PM ; [facility] Schizoaffective disorder (pe r patient report) Telebehavioral Health with Halima Argueta [facility] 03/20/2020 Last Documented On 1 7:55PM ; [facility] Asthma Telemedicine New Patient with An michelle Sharma RADIATION THERAPY TECHNOLOGIST 03/20/2020 Last Documented On 1 9:48AM ; [facility] Lumbago Telemedicine New Patient with An michelle Sharma RADIATION THERAPY TECHNOLOGIST 03/20/2020 Last Documented On 1 9:48AM ; [facility] Z68.21 - Body mass index [BM I] 21.0-21.9, adult Telemedicine New Patient with Kia Sharma RADIATION THERAPY TECHNOLOGIST 03/20/2020 Last Documented On 1 9:48AM ; [facility] Work Phone: 1(252) 376-826005-31-2023 Progress note* Progress note Date Encounter Last Documented by 07/27/2022 Medical Established Patient Last documented on 07/28/2022; 10:19 AM, Mariposa Duncan CNP; [facility] Active Problems & Conditions - J45.998 - Asthma - M54.50 - Backache Lower - K21.9 - Esophageal Reflux Without Esophagitis - 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 - F25.0 - Schizoaffective Disorder Chief Complaint The Chief Complaint is: Patient states feels like gerd is coming back, patient states that burps smell like rotten eggs or back sewer went to ER for migraines. Referred [...] BP-Sitting L117/63 mmHg BP Cuff SizeRegular Pulse Rate-Zyipcwb88 bpm Temp-Chulsvhh59.3 F Tnrpio53 in Jlkogi554 lbs 4.8 oz Body Mass Index22 kg/m2 Body Surface Area1.8 m2 Oxygen Rpipbciotr96 % General Appearance: - Awake. - Alert. [...] household were unable to get needed child care giver: No and unable to get other needs [...] Less than 40 years (0 points) [Pre-DM]. [facility]05-31-2023 Reason for referral (narrative)* Date Encounter Description Provider Reason for Referral 07/27/22 Medical Established Patient Mariposa Duncan RADIATION THERAPY TECHNOLOGIST Referral To Mental Health Team; JENIFFER Referral For [facility] Work Phone: 1(909) 981-195902-26-2023 Hospital Discharge instructions* Discharge Instructions* Christopher Stephenson [...] through Care Everywhere. * Nausea and Vomiting (Dominican) [facility] Phone: [phone]) 981-103201-06-2023 History of Present illness Narrative* Martha Melgoza [...] smoked today 03/03/22. [facility] Work Phone: 1(967) 211-475301-06-2023 Hospital Discharge instructions* Discharge Instructions* Kassidy Davidson [...] to bathe or shower. [facility]: 1(277) 193-676501-03-2023 Hospital Discharge instructions* Discharge Instructions* Nicholas Denton MD - 03/01/2022 8:09 AM EST Take your medications as prescribed. You may take Tylenol Motrin as needed for pain control as wellas warm compresses. Follow-up with your OB communications controller as scheduled. You have been given a referral for general surgeon if this continues for further assessment of possible drainage. * Attachments The following attachments cannot be sent through Care Everywhere. * Cellulitis (Dominican) documented [facility] Phone: 1(719) 178-305706-21-2022 Evaluation note Includes: Assessments for all patient encounters Findings Encounter Date Schizoaffective disorder Established [facility] Asthma Medical Established Patient with Kia Sharma [facility] 08/17/2021 Esophageal reflux without esophagitis Me dical Established Patient with Kia Sharma [facility] 08/17/2021 Schizoaffective disorder Medical Establi shed Patient with Kia Sharma [facility] 08/17/2021 Z68.20 - Body mass index [BM I] 20.0-20.9, adult Medical Established Patient with Kia Sharma [facility] 08/17/2021 Schizoaffective disorder Established Patient with Halima Argueta [facility] 07/15/2021 Schizoaffective disorder BH Established Patient with Halimachuck Marroquins [facility] 07/15/2021 Bipolar disorder NOS Medical Established Patient with Kia Edith RADIATION THERAPY TECHNOLOGIST 07/15/2021 Esophageal reflux without esophagitis Me dical Established Patient with Kia Edith RADIATION THERAPY TECHNOLOGIST 07/15/2021 Herpes simplex type I Medical Establishe d Patient with Kia Edith RADIATION THERAPY TECHNOLOGIST 07/15/2021 Z68.1 - Body mass index [BMI ] 19.9 or less, adult Medical Established Patient with Kia Edith RADIATION THERAPY TECHNOLOGIST 07/15/2021 Asthma Medical Established Patient with Kia Edith RADIATION THERAPY TECHNOLOGIST 07/01/2021 Bipolar disorder NOS Medical Established Patient with Kia Edith RADIATION THERAPY TECHNOLOGIST 07/01/2021 Herpes simplex type I Medical Establishe d Patient with Kia Edith RADIATION THERAPY TECHNOLOGIST 07/01/2021 Schizoaffective disorder Medical Establi shed Patient with Kia Edith RADIATION THERAPY TECHNOLOGIST 07/01/2021 Z68.20 - Body mass index [BM I] 20.0-20.9, adult Medical Established Patient with Kia Edith RADIATION THERAPY TECHNOLOGIST 07/01/2021 Diabetes Risk Test Score was one score 05/28/2021 Medical Established Patient with Kia Edith RADIATION THERAPY TECHNOLOGIST 05/28/2021 Herpes simplex type I Medical Establishe d Patient with Kia Edith RADIATION THERAPY TECHNOLOGIST 05/28/2021 No cough Medical Established Patient with Kia Edith [facility] 05/28/2021 Visit for: screening for hum an immunodeficiency virus Medical Established Patient with Kia Edith RADIATION THERAPY TECHNOLOGIST 05/28/2021 Z11.59 - Encounter for nettie kauffman for other viral diseases Medical Established Patient with Kia Edith RADIATION THERAPY TECHNOLOGIST 05/28/2021 Z68.1 - Body mass index [BMI ] 19.9 or less, adult Medical Established Patient with Kia Edith RADIATION THERAPY TECHNOLOGIST 05/28/2021 Asthma Medical Established Patient with Kia Edith RADIATION THERAPY TECHNOLOGIST 04/03/2020 Body mass index Medical Established Patient with Kia Edith RADIATION THERAPY TECHNOLOGIST 04/03/2020 Esophageal reflux without esophagitis Me dical Established Patient with Kia Edith RADIATION THERAPY TECHNOLOGIST 04/03/2020 Lower backache Medical Established Patient with Kia Edith RADIATION THERAPY TECHNOLOGIST 04/03/2020 Bipolar disorder (per denia vega, diagnosed w/both Bipolar I & II) Telebehavioral Health with Halima Argueta [facility] 03/20/2020 Schizoaffective disorder (pe r patient report) Telebehavioral Health with Halima Argueta [facility] Asthma Telemedicine New Pat ient with Kia Sharma RADIATION THERAPY TECHNOLOGIST 03/20/2020 Lumbago Telemedicine New Pat ient with Kia Edith [facility] 03/20/2020 Z68.21 - Body mass index [BM I] 21.0-21.9, adult Telemedicine New Patient with Kia Sharma RADIATION THERAPY TECHNOLOGIST 03/20/2020 [facility] Work Phone: 1(867) 352-525305-19-2022 Evaluation note Includes: Assessments for all patient encounters Findings Encounter Date Schizoaffective disorder Established Patient with [facility]15/2021 Schizoaffective disorder Established Patient with Halima Argueta [facility] 07/15/2021 Bipolar disorder NOS Medical Established Patient with Kia Sharma RADIATION THERAPY TECHNOLOGIST 07/15/2021 Esophageal reflux without esophagitis Me dical Established Patient with Kia Edith [facility] 07/15/2021 Herpes simplex type I Medical Establishe d Patient with Kia Sharma [facility] 07/15/2021 Z68.1 - Body mass index [BMI ] 19.9 or less, adult Medical Established Patient with Kia Edith RADIATION THERAPY TECHNOLOGIST 07/15/2021 Asthma Medical Established Patient with Kia Edith RADIATION THERAPY TECHNOLOGIST 07/01/2021 Bipolar disorder NOS Medical Established Patient with Kia Sharma RADIATION THERAPY TECHNOLOGIST 07/01/2021 Herpes simplex type I Medical Establishe d Patient with Kia Sharma RADIATION THERAPY TECHNOLOGIST 07/01/2021 Schizoaffective disorder Medical Establi shed Patient with Kia Sharma [facility] 07/01/2021 Z68.20 - Body mass index [BM I] 20.0-20.9, adult Medical Established Patient with Kia Sharma RADIATION THERAPY TECHNOLOGIST 07/01/2021 Diabetes Risk Test Score was one score 05/28/2021 Medical Established Patient with Kia Sharma RADIATION THERAPY TECHNOLOGIST 05/28/2021 Herpes simplex type I Medical Establishe d Patient with Kia Edith RADIATION THERAPY TECHNOLOGIST 05/28/2021 No cough Medical Established Patient with Kia Sharma RADIATION THERAPY TECHNOLOGIST 05/28/2021 Visit for: screening for hum an immunodeficiency virus Medical Established Patient with Kia Sharma RADIATION THERAPY TECHNOLOGIST 05/28/2021 Z11.59 - Encounter for scree jamari for other viral diseases Medical Established Patient with Kia Sharma [facility] 05/28/2021 Z68.1 - Body mass index [BMI ] 19.9 or less, adult Medical Established Patient with Kia Sharma [facility] 05/28/2021 Asthma Medical Established Patient with Kia Sharma [facility] 04/03/2020 Body mass index Medical Established Patient with Kia Sharma [facility] 04/03/2020 Esophageal reflux without esophagitis Me dical Established Patient with Kia Sharma [facility] 04/03/2020 Lower backache Medical Established Patient with Kia Sharma [facility] 04/03/2020 Bipolar disorder (per denia vega, diagnosed w/both Bipolar I & II) Telebehavioral Health with Halima Kendall [facility] 03/20/2020 Schizoaffective disorder (pe r patient report) Telebehavioral Health with Halimachuck Argueta [facility] 03/20/2020 Asthma Telemedicine New Pat ient with Kia Sharma [facility] 03/20/2020 Lumbago Telemedicine New Pat ient with Kia Sharma [facility] 03/20/2020 Z68.21 - Body mass index [BM I] 21.0-21.9, adult Telemedicine New Patient with Kia Sharma [facility] 03/20/2020 [facility] Work Phone: 1(298) 996-117905-05-2022 Evaluation note Includes: Assessments for all patient encounters Findings Encounter Date Asthma Medical Established Patient with Kia Sharma [facility] 07/01/2021 Bipolar disorder NOS Medical Established Patient with Kia Sharma [facility] 07/01/2021 Herpes simplex type I Medical Establishe d Patient with Kia Sharma [facility] 07/01/2021 Schizoaffective disorder Medical Establi shed Patient with Kia Sharma [facility] 07/01/2021 Z68.20 - Body mass index [BM I] 20.0-20.9, adult Medical Established Patient with Kia Sharma [facility] 07/01/2021 Diabetes Risk Test Score was one score 05/28/2021 Medical Established Patient with Kia Sharma [facility] 05/28/2021 Herpes simplex type I Medical Establishe d Patient with Kai Sharma [facility] 05/28/2021 No cough Medical Established Patient with Kia Sharma [facility] 05/28/2021 Visit for: screening for hum an immunodeficiency virus Medical Established Patient with Kia Sharma [facility] 05/28/2021 Z11.59 - Encounter for scree jamari for other viral diseases Medical Established Patient with Kia Sharma [facility] 05/28/2021 Z68.1 - Body mass index [BMI ] 19.9 or less, adult Medical Established Patient with Kia Sharma RADIATION THERAPY TECHNOLOGIST 05/28/2021 Asthma Medical Established Patient with Kia Sharma RADIATION THERAPY TECHNOLOGIST 04/03/2020 Body mass index Medical Established Patient with Kia Sharma RADIATION THERAPY TECHNOLOGIST 04/03/2020 Esophageal reflux without esophagitis Me dical Established Patient with Kia Sharma [facility] 04/03/2020 Lower backache Medical Established Patient with Kia Sharma [facility] 04/03/2020 Bipolar disorder (per denia vega, diagnosed w/both Bipolar I & II) Telebehavioral Health with Halima Condonmons [facility] 03/20/2020 Schizoaffective disorder (pe r patient report) Telebehavioral Health with Halimachuck Argueta [facility] 03/20/2020 Asthma Telemedicine New Pat ient with Kia Sharma [facility] 03/20/2020 Lumbago Telemedicine New Pat ient with Kia Sharma [facility] 03/20/2020 Z68.21 - Body mass index [BM I] 21.0-21.9, adult Telemedicine New Patient with Kia Sharma [facility] 03/20/2020 [facility] Work Phone: 1(234) 501-857204-01-2022 Evaluation note Includes: Assessments for all patient encounters Findings Encounter Date Diabetes Risk Test Score was one score 05/28/2021 Medical Established Patient with Kia Sharma [facility] 05/28/2021 Herpes simplex type I Medical Establishe d Patient with Kia Sharma [facility] 05/28/2021 No cough Medical Established Patient with Kia Sharma [facility] 05/28/2021 Visit for: screening for hum an immunodeficiency virus Medical Established Patient with Kia Sharma RADIATION THERAPY TECHNOLOGIST 05/28/2021 Z11.59 - Encounter for scree jamari for other viral diseases Medical Established Patient with Kia Sharma [facility] 05/28/2021 Z68.1 - Body mass index [BMI ] 19.9 or less, adult Medical Established Patient with Kia Edith RADIATION THERAPY TECHNOLOGIST 05/28/2021 Asthma Medical Established Patient with Kia Sharma RADIATION THERAPY TECHNOLOGIST 04/03/2020 Body mass index Medical Established Patient with Kia Sharma RADIATION THERAPY TECHNOLOGIST 04/03/2020 Esophageal reflux without esophagitis Me dical Established Patient with Kia Sharma [facility] 04/03/2020 Lower backache Medical Established Patient with Kia Sharma [facility] 04/03/2020 Bipolar disorder (per denia vega, diagnosed w/both Bipolar I & II) Telebehavioral Health with Halima Argueta [facility] 03/20/2020 Schizoaffective disorder (pe r patient report) [facility]gueta [facility] 03/20/2020 Asthma Telemedicine New Pat ient with Kia Sharma [facility] 03/20/2020 Lumbago Telemedicine New Pat ient with Kia Sharma [facility] 03/20/2020 Z68.21 - Body mass index [BM I] 21.0-21.9, adult Telemedicine New Patient with Kia Sharma [facility] 03/20/2020 [facility] Work Phone: 1(476) 744-514008-18-2021 History of Present illness Narrative* Irish Nelson [...] RN - 10/14/2020 12:39 PM EDT [facility] NURSE PRACTITIONER in to see patient. Patient's boyfriend called to spanish moss picker. * Rufina Hamilton RN - 09/28/2020 [...] calls at this time. [facility] Phone: 1([phone]) 760-887202-05-2021 Evaluation note Includes: Assessments for all patient encounters Findings Encounter Date Asthma Medical Established Patient with Kia Sharma [facility] 04/03/2020 Body mass index Medical Established Patient with Kia Sharma [facility] 04/03/2020 Esophageal reflux without esophagitis Me dical Established Patient with Kia Sharma [facility] 04/03/2020 Lower backache Medical Established Patient with Kia Sharma [facility] 04/03/2020 Bipolar disorder (per denia vega, diagnosed w/both Bipolar I & II) Telebehavioral Health with Halima Argueta [facility] 03/20/2020 Schizoaffective disorder (pe r patient report) Telebehavioral Health with Halima Argueta [facility] 03/20/2020 Asthma Telemedicine New Pat ient with Kia Sharma [facility] 03/20/2020 Lumbago Telemedicine New Pat ient with Kia Sharma [facility] 03/20/2020 Z68.21 - Body mass index [BM I] 21.0-21.9, adult Telemedicine New Patient with Kiajace Sharma [facility] 03/20/2020 [facility] [employer] [facility] Work Phone: 1(654) 505-426801-22-2021 History general Narrative - Reported Includes: Medical History in patient's chart Description Last Updated per pt report- 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 ~heartb urn 03/20/2020 History of psychiatric disor ders ADHD, manic bipolar 1 and 2, schizoeffective disorder 03/20/2020 History of tooth extraction 03/20/2020 History of asthma 03/20/2020 A recent immunization for flu 03/20/2020 No previous hospitalizations 03/20/2020 [facility] Work Phone: 1(817) 408-162201-22-2021 History general Narrative - Reported Includes: Medical History in patient's chart Description Last Updated per pt report- 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 ~heartb urn 03/20/2020 Last Documented On 1 9:48AM ; [facility] History of psychiatric disor ders ADHD, manic bipolar 1 and 2, schizoeffective disorder 03/20/2020 Last Documented On 1 9:48AM ; [facility] History of tooth extraction 03/20/2020 Last Documented On 1 9:48AM ; [facility] History of asthma 03/20/2020 Last Documented On 1 9:48AM ; [facility] A recent immunization for flu 03/20/2020 Last Documented On 1 9:48AM ; [facility] No previous hospitalizations 03/20/2020 Last Documented On 1 9:48AM ; [facility] Work Phone: Discharge summary Author Osmani baugh [facility] October 29, 2021 9:52am Note Date/Time October 29, 2021 9:52am [facility] [address] [place] [address] Discharge Summary Signed Patient: Bennett Vaughn MR#: [id number] : 1995 Acct:[id number] Age/Sex: 26 / F Adm Date: 2 Loc: Room: [address] [place] [address]: Feliberto Faust MD Copies to: [...] 15 Days Qty: 30 1RF Follow Up: 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 Interceptor Operator [Other] (Therapy: Case management: ) Documented By: Osmani Timmons MD 2 0949 Signed By: <Electronically signed by Osmani Timmons MD> 10/29/21 0952 [facility] Work Phone: Evaluation note* Diagnosis HGSIL (high grade squamous intraepithelial lesion) on Pap smear of cervix documented in this encounter [facility] Phone: [email or web address] note* Diagnosis Preop testing- Primary Preoperative examination, unspecified documented in this encounter [facility] Phone: [email or web address] note* Diagnosis Preop testing Preoperative examination, unspecified documented in this encounter [facility] Phone: [email or web address] note* Diagnosis 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 documented in this encounter [facility] Phone: [email or web address] note* Diagnosis Irregular menstrual cycle documented in this encounter [facility] Phone: evaliinmue note* Diagnosis Vaginal discharge Leukorrhea, not specified as infective documented in this encounter [facility] Phone: [email or web address] note* Diagnosis Onset Date Resolution Status Bipolar affective, mixed, sev w/ psych acute Chronic schizophrenia acute PTSD (post-traumatic stress disorder) acute Suicidal ideation acute [facility] Work Phone: Evaluation note* Diagnosis Cellulitis of right breast- Primary documented in this encounter [employer] Work Phone: evaluation note* Diagnosis Abscess of right breast- Primary Inflammatory disease of breast Abscess of right breast Inflammatory disease of breast documented in this encounter [employer] Work Phone: evaluation note* Diagnosis Nausea vomiting and diarrhea- Primary Nausea with vomiting documented in this encounter [employer] Work Phone: evaluation note* Diagnosis Abscess of female breast Inflammatory disease of breast documented in this encounter [employer] Phone: evalkmaifk note* Diagnosis Flank pain- Primary Abdominal pain, unspecified site Urinary tract infection without hematuria, site unspecified documented in this encounter [employer] Work Phone: evaluation note* Diagnosis Abdominal pain- Primary Abdominal pain, unspecified site documented in this encounter [employer] note* Diagnosis Abdominal cramping- Primary Abdominal pain, unspecified site documented in this encounter [facility] and physical note Author Feliberto Faust [facility] October 27, 2021 3:07pm Note Date/Time October 27, 2021 3: 07pm [facility] [address] [place] [address] Psychiatry H&P Signed Patient: Bennett Vaughn MR#: [id number] : 1995 Acct:[id number] Age/Sex: 26 / F Adm Date: 2 Loc: Room: [address] [place] [address] Type: ADM IN Attending Dr: Feliberto Faust [...] History (Updated 10/26/21 @ 20:08 by Debo Sultnaa RN) Mother Bipolar disorder Hypertension Brother Asthma [...] Appearance Clear Urine pH 7.0 Ur Specific [place] 1.005 Urine Protein Negative Urine Glucose (UA) [...] signed by Feliberto Faust MD> 10/27/21 1507 [facility] Work Phone: History of Present illness Narrative History of Present Illness not supported for this document type No History of Present Illness [facility] Replaced by [facility] Work Phone: Hospital Discharge instructions* Instructions* Irihs Nelson RN - 10/14/2020 SAME DAY SURGERY [...] In the meantime, you may take an etza-lch-hahcrpy analgesic (Tylenol, Anacin, etc.) and use a heating pad applied to the lower abdomen. Please call the office as soon as possible for a post-operative visit in two weeks. If you experience any unusual amount of bleeding or side effects that you cannot readily explain, please do not hesitate to call the office. [facility] Work Phone: Hospital Discharge instructions Additional Instructions Regular diet No activity restrictionsUniversity Hospitals [facility] Work Phone: Instructions Instructions not supported for this document type No Instructions [facility] Replaced by [facility] Work Phone: Patient problem outcome Narrative Includes: Evaluations & Outcomes for active Goals No Outcomes [facility] Replaced by [facility] Work Phone: Progress note Author Osmani baugh [facility] October 28, 2021 12:18pm Note Date/Time October 28, 2021 12:18pm [facility] [address] [place] [address] Psychiatry Progress Note Signed Patient: Bennett Vaughn MR#: [id number] : 1995 Acct:[id number] Age/Sex: 26 / F Adm Date: 2 Loc: Room: 1G7438-2 Type : ADM IN Attending Dr: Feliberto [...] signed by Osmani Timmons MD> 10/28/21 1218 [facility] Work Phone: Reason for referral (narrative)No Reason for Referral [facility]placed by [facility] Work Phone: Review of systems Narrative - Reported Review of Systems not supported for this document type No [facility] Work Phone: Summary Purpose Family History No Family History Records Found Description Last Updated father unknown 03/20/2020 Fraternal history of asthma 03/20/2020 Maternal history of hypertension 021 Relationship Condition Age at Onset Recorded Date/T jama Not Specified Bipolar affective disorder Unknown Hypertension Unknown brother Asthma Unknown Description Last Updated father unknown 03/20/2020 Last Documented On 9:48AM ; [facility] Fraternal history of asthma 03/20/2020 Maternal history of hypertension 021 Advance Directives No Advanced Directives Records FoundDocuments on File Type Date Recorded Patient Lighting Fixtures Decorator Expl anation ACP-Advance Directive ACP-Power of Pin Feather Machine Operator Latest Code Status on File Code Status Date Activated Date Inactivated Comments Full Code 02/13/2018 11:30 AM 02/15/2018 11:04 PM Full Code 07/15/2017 3:32 AM 07/17/2017 3:26 PM Full Code 07/15/2017 3:31 AM 07/15/2017 3:32 AM Full Code 10/29/2016 5:43 AM 11/02/2016 12:08 AM Full Code 02/14/2015 3:50 AM 02/17/2015 4:19 PM Documents on File Type Date Recorded Patient Lighting Fixtures Decorator Expl anation ACP-Advance Directive ACP-Power of Pin Feather Machine Operator Latest Code Status on File Code Status [...] Name Relationship Healthcare Agent Relationshi p Communication Aaorn Dagoberto Spouse Primary Decision Maker Latest Code [...] Agents on File Name Relationship Healthcare Agent Miranda tejeda Communication Aaron Arenas Other Primary Decision Maker Healthcare Agents on File Name Relationship Healthcare Agent Miranda p Communication Aaron Dagoberto Other Primary Decision Maker Latest Code Status [...] 3:26 PM Healthcare Agents on File Name Relationship Healthcare Lupe tejeda Communication Aaron Dagoberto Other Primary Decision Maker Latest Code Status [...] The following attachments cannot be sent through [facility] Everywhere. * Tooth: Abscessed (Dominican) documented in this encounter* Instructions* Sid Norris [...] sent through Care Everywhere. * Bacterial Vaginosis (Dominican) * Vaginal Bleeding (Dominican) documented in this encounter* Instructions* Irina Ojeda PA-C - 02/06/2020 Call your dentist to arrange follow-up for recheck this week. * Attachments The following attachments cannot be sent through Care Everywhere. * Tooth: Abscessed (Dominican) documented in this encounter* Instructions* Jose Saldaña APRN - [facility] - 12/24/2019 Take amoxicillin as prescribed. Return to the emergency department for worsening symptoms. * Attachments The following attachments cannot be sent through Care Everywhere. * Dental Care: Pre-Dental Work Precautions: General Info (Dominican) documented in this encounter Assessments Diagnosis Dental infection Acute apical periodontitis of pulpal origin Diagnosis Dental abscess Periapical abscess without sinus Dental caries Unspecified dental caries Diagnosis Bacterial vaginosis- Primary Vaginitis and vulvovaginitis, unspecified Vaginal bleeding Other specified noninflammatory disorder of vagina Findings Encounter Date Bipolar disorder (per denia vega, diagnosed w/both Bipolar I & II) Telebehavioral Health with Halima Argueta [facility] 03/20/2020 Schizoaffective disorder (pe r patient report) Telebehavioral Health with Halima Argueta [facility] 03/20/2020 Asthma Telemedicine New Pat ient with Kia Sharma RADIATION THERAPY TECHNOLOGIST 03/20/2020 Lumbago Telemedicine New Pat ient with Kia Sharma [facility] 03/20/2020 Z68.21 - Body mass index [BM I] 21.0-21.9, adult Telemedicine New Patient with Kia Sharma CNP 03/20/2020 Diagnosis Women's annual routine gynecological examination Findings Encounter Date Asthma Medical Established Patient with Kia Sharma CNP 04/03/2020 Body mass index Medical Established Patient with Kia Edith [facility] 04/03/2020 Esophageal reflux without esophagitis Me dical Established Patient with Kia Sharma RADIATION THERAPY TECHNOLOGIST 04/03/2020 Lower backache Medical Established Patient with Kia Edith [facility] 04/03/2020 Bipolar disorder (per denia vega, diagnosed w/both Bipolar I & II) Telebehavioral Health with Halima Condonmons [facility] 03/20/2020 Schizoaffective disorder (pe r patient report) Telebehavioral Health with Halimachuck Argueta [facility] 03/20/2020 Asthma Telemedicine New Pat ient with Kia Edith [facility] 03/20/2020 Lumbago Telemedicine New Pat ient with Kia Sharma [facility] 03/20/2020 Z68.21 - Body mass index [BM I] 21.0-21.9, adult Telemedicine New Patient with Kia Edith [facility] 03/20/2020 Diagnosis Dental infection- [...] section and content) DATE CREATED AUTHOR 12/08/2018 [facility] DATE CREATED AUTHOR AUTHOR'S ORGANIZ ATION 05/31/2021 [facility] DATE CREATED AUTHOR AUTHOR'S ORGANIZ ATION 03/16/2022 [facility] DATE CREATED AUTHOR AUTHOR'S ORGANIZ ATION 04/02/2022 [facility] DATE CREATED AUTHOR AUTHOR'S ORGANIZ ATION 10/02/2023 [facility] DATE CREATED AUTHOR AUTHOR'S ORGANIZ ATION 10/17/2023 [facility] EPIC Reason for Visit (unrecogniz [...] (cervical intraepithelial neoplasia II) SHREYA II Procedures IL CONIZATION CERVIX,LOOP ELECTRD DILATATION AND CURETTAGE LEEP-ENDOCERVICAL CURETTAGE Anthony Galloway MD [address] [place] [address] [facility] Reason Comments Breast Pain Right sided, onset y esterday pm, patient states she had an infection in her right breast a few months ago Specialty Diagnoses / Procedures Referred By Gladis t Referred To Contact Diagnoses Abscess of right breast right breast abcess Procedures IL DRAIN SKIN ABSCESS SIMPLE BREAST INCISION AND DRAINAGE- BREAST Geoff Miller MD [address] [place] [address] [facility] [address] [place] [address] Referral ID Status Reason Start Date Expiration Date Visits Re quested Visits Authorized [id number] 1 1 Reason Comments Nausea Emesis Illness Pt. States she has h ad nausea & vomiting since this am. Reports hot & cold flashes & Occasional dizziness Specialty Diagnoses / Procedures Referred By Gladis t Referred To Contact Radiology Diagnoses Abscess of female breast Procedures US BREAST LIMITED RIGHT US BREAST COMPLETE RIGHT Geoff Miller MD [address] [place] [address] Referral ID Status Reason Start Date Expiration Date Visits Re quested Visits Authorized [id number] Open 04/18/2022 04/18/2023 1 1 Specialty Diagnoses / Procedures Referred By Contac t Referred To Contact Radiology Diagnoses Abscess of female breast Procedures DUSTIN JASMINA DIGITAL DIAGNOSTIC BILATERAL DUSTIN DIGITAL DIAGNOSTIC W OR WO CAD BILATERAL Geoff Miller MD [address] [place] [address] Referral ID Status Reason Start Date Expiration Date Visits Re quested Visits Authorized [id number] Closed 04/18/2022 04/18/2023 1 1 Reason Comments [...] 100 mL IVPB (COMPLETED) 2,000 mg, Intravenous, CONCRETE POINTER TO O.R., 1 dose, On Mon10/14/20 at [...] 100 mL IVPB (COMPLETED) 2,000 mg, IntraVENous, CONCRETE POINTER TO O.R., 1 dose, On Mon03/04/22 at [...] Provider: NADYA Fischer CRNA)1307 (Paused - Provider: ANDYA Fischer CRNA - Comment: Switch to gravity)1308 (Restarted - Provider: NADYA Fishcer CRNA)1422 (Stopped - Provider: Martha Melgoza RN) [...] dose, Starting on Mon03/04/22 at 1313, Until Mon03/05/22 at 1313, Nausea, Secondary antiemetic therapy., PACU [...] PHYSICIAN NO FAMILY Primary Care Provider Active Telephone Clerk Telegraph Office Relationship Specialty Start Date End Date Kia Sharma APRN - RADIATION THERAPY TECHNOLOGIST [address] [place] [address] PCP - General Nurse Practitioner 04/13/22 Telephone Clerk Telegraph Office Relationship Specialty Start Date End Date Kia Sharma APRN - RADIATION THERAPY TECHNOLOGIST [address] [place] [address] PCP - General Nurse Practitioner 04/13/22 Telephone Clerk Telegraph [employer] Relationship Specialty Start Date End Date Kia Sharma APRN ROLF [address] [place] [address] PCP - General Nurse Practitioner 04/13/22 Telephone Clerk [employer] Relationship Specialty Start Date End Date Kia Sharma APRN RADIATION THERAPY TECHNOLOGIST [address] [place] [id number] PCP - General Nurse Practitioner 04/13/22 Telephone Clerk [employer] Relationship Specialty Start Date End Date Kia Sharma APRN RADIATION THERAPY TECHNOLOGIST [address] [place] [phone] PCP - General Nurse Practitioner 04/13/22 Telephone Clerk [employer] Relationship Specialty Start Date End Date Kia Sharma APRN RADIATION THERAPY TECHNOLOGIST [address] [place] [id number] PCP - General Nurse Practitioner 04/13/22 FOR [...] BE BASED ON THE PRIMARY CLINICAL RECORDS. [facility]. provides no warranty or guarantee of the accuracy or completeness of information in this document.
--- NOTE | 2023-10-23 19:06 | US_ITS ---
[address] [address] Patient Name: BENNETT EM MRN: [facility]:[id number] date: 1995 Sex: F Assigned Patient Location: [facility] Current Patient Location: Accession/Order Number: [id number] Exam Date: 10/23/2023 19:09 Report Date: 10/24/2023 07:18 At the request of: HELIO OJEDA Procedure: US OB BPP w non-stress EXAMINATION: US OB BPP w non-stress HISTORY: SMALL FOR GESTATIONAL AGE P05.10 COMPARISON: No relevant comparison available. TECHNIQUE: Ultrasound biophysical profile was performed in the radiology department. non-reactive stress testing was performed by nursing staff in the birthing center. FINDINGS: BREATHING MOVEMENTS: 2 GROSS BODY MOVEMENTS: 2 TONE: 2 QUALITATIVE AMNIOTIC FLUID VOLUME: 2 PRESENTATION: BREECH HEART RATE: 145.16 bpm AMNIOTIC FLUID VOLUME: 14.5 cm GESTATIONAL AGE: 35 weeks 3 days US/US OB BPP w non-stress IMPRESSION: Total biophysical profile score: 8 Electronically authenticated by: ALETHA TRAN Date: 10/24/2023 07:18
[2023-10-23 19:47] VITALS: BP 141/80; PULSE 86
[2023-10-23 19:54] VITALS: BP 136/77; PULSE 93
[2023-10-23 20:20] VITALS: BP 140/73; PULSE 78
[2023-10-23 20:22] VITALS: BP 131/62; PULSE 78
== END 2023-10-23 20:30 | disposition home or self-care (01) ==
LOC: US 07:17 → FBC 19:04
PROVIDERS: Visit Provider Physician Assistant
DX: O26.843 Uterine size-date discrepancy, third trimester (principal); Z3A.35 35 weeks gestation of pregnancy
CPT/HCPCS: 76818

== ENCOUNTER 2023-10-26 09:08 | Outpatient (OUT) | payer OTHER, SELFPAY ==
[2023-10-26 20:08] VITALS: BP 128/67; PULSE 85
== END 2023-10-26 20:32 | disposition home or self-care (01) ==
LOC: FBCO 09:08 → FBC 19:59
PROVIDERS: Visit Provider Obstetrics & Gynecology
DX: O36.5930 Maternal care for other known or suspected poor fetal growth, third trimester, not applicable or unspecified (principal)
CPT/HCPCS: 59025

== ENCOUNTER 2023-10-30 09:41 | Observation (INO) | payer OTHER, SELFPAY ==
--- OUTSIDE RECORDS SUMMARY | 2023-10-30 09:46 | XMS_ITS | CCD ---
Author Organization [facility] Care Team Providers Care Track Repairer Helper Name Role Phone Bryce De La Garza [...] Provider Unava DO Ed Hoover Emergency Provider [phone] MD Govind Feliberto Admit Provider MD Feliberto Faust Attending Provider [phone] Unavailable Primary Care Provider UnavailDR YURIY Peraza Admitting Unavailable DR YURIY SABILLON Attending Unavailable REQUEST, NONE LISTED Primary Care UnavailDR YURIY Ragland Consulting Unavailable NO FAMILY, PHYSICIAN Primary Care Unavailable Feliberto Faust Attending Unavailable Feliberto Faust Admitting Unavailable Kia Booker APRN, CNP Primary Care Provide r Mariposa Duncan CNP Primary Care Provider [phone] Kia Booker APRN, CNP Primary Care Provide r Kia Booker APRN, CNP Primary Care Provide r JAGDEEP VANEGAS Admitting Unavailable D'ABREAU, JAGDEEP Attending Unavailable EDITH, [...] Attending Unavailable EDITH, KIA Primary Care Unavailable DALJIT, YURIY Attending Unavailable DALJIT, YURIY Attending Unavailable DALJIT, YURIY Attending Unavailable RUSTY, GENESIS Attending Unavailable DALJIT, YURIY Attending Unavailable RUSTY, GENESIS Attending Unavailable DALJIT, YURIY Attending Unavailable RUSTY, GENESIS Attending Unavailable DALJIT, YURIY Attending Unavailable Medications Current Medications Medication Drug Class(es) Dates Sig (Normalized) Sig (Original) acetaminophen 500 mg oral tablet (20 sources) Start: 03-04-2022 acetaminophen (TYLENOL) tablet 1,000 mg Start: 10-14-2020 acetaminophen (TYLENOL) tablet 650 mg Start: 05-27-2020 acetaminophen (TYLENOL) tablet 1,000 mg Start: 05-27-2020 take 2 tablets by [facility] every six hours as needed for [...] pain 10 tablet 0 10/14/2020 10/17/2020 Active [id number] 200 actuat albuterol 0.09 mg/actuat metered dose [...] 2023 Bilirubin, SemiQt,Ur Negative Normal NEG [facility] Comment on above: Performed By: #### U A #### [facility] [address] [place] [address] [place] [address] Maintenance Data Analyst: Hayden Cartagena MD Blood, Urine Negative Normal NEG [facility] Comment on above: Performed By: #### U A #### [facility] [address] [place] [address] Maintenance Data Analyst: Hayden Cartagena MD Clarity (U) Clear Normal CLEAR [facility] Comment on above: Performed By: #### U A #### [facility] [address] [place], [place] 6954083 Maintenance Data Analyst: Hayden Cartagena MD Color (U) Yellow Normal YEL [facility] Comment on above: Performed By: #### U A #### [facility] [address] [place], [place] [id number] Maintenance Data Analyst: Hayden Cartagena MD Glucose Ql (U) Negative Normal NEG [facility] Comment on above: Performed By: #### U A #### [facility] [address] [place] [address] [place] [place], [place] 9154783 Maintenance Data Analyst: Hayden Cartagena MD Ketones Ql (U) Negative Normal NEG [facility] Comment on above: Performed By: #### U A #### [facility] [address] [place] [address] [place] [place], [place] [phone] Maintenance Data Analyst: Hayden Cartagena MD Leukocyte esterase Test strip Ql (U) Negative Normal NEG [facility] Comment on above: Performed By: #### U A #### [facility] [address] [place] [address] Dr[address] [place], [place] [address] Maintenance Data Analyst: Hayden Cartagena MD Nitrite,Ur Negative Normal [facility] Comment on above: Performed By: #### U A #### [facility] [address] [place] [address] Dr. [place], [facility]83 Maintenance Data Analyst: Hayden Cartagena MD PH,Ur 6.0 Normal 5.0-9.0 [facility] Comment on above: Performed By: #### U A #### [facility] [address] [place] [address] [place] [place], [place] [phone] Maintenance Data Analyst: Hayden Cartagena MD Protein Ql (U) Negative Normal NEG [facility] Comment on above: Performed By: #### U A #### [facility] [address] [place] [address] [place] [place], [place] [phone] Maintenance Data Analyst: Hayden Cartagena MD Spec. Jackson,Ur 1.020 Normal 1.010-1.020 [facility] Comment on above: Performed By: #### U A #### [facility] [address] [place] [address] Maintenance Data Analyst: Hayden Cartagena MD Urobilinogen,Ur Normal Normal 0.0-1.0 [facility] Comment on above: Performed By: #### U A #### [facility] [address] [place] [address] Maintenance Data Analyst: Hayden Cartagena MD Urinalysison 09-12-2023 Bilirubin Ql (U) Negative NEGATIVE [facility] Clarity (U) Clear Clear [facility] Color (U) Yellow Yellow [facility] Glucose Test strip (U) [Mass/Vol] Negative NEGATIVE mg/dL [facility] Hemoglobin Auto test strip Ql (U) Negative NEGATIVE [facility] Interpretation and review of laboratory results Abnormal [facility] Ketones (U) [Mass/Vol] Negative NEGAT ROSA mg/dL [facility] Leukocyte esterase Test strip Ql (U) Negative NEGATIVE [facility] Nitrite Ql (U) Negative NEGATIVE [facility] pH (U) 6.0 [pH] 5.0 - 9.0 [facility] Protein (U) [Mass/Vol] Negative NEGAT ROSA mg/dL [facility] Specific gravity (U) [Rel density] Low 1.010 - 1.020 [facility] Urobilinogen Qn (U) Normal 0.0 - 1. 0 EU/dL [facility] Urinalysis, Routineon 2023 Bilirubin, SemiQt,Ur Negative Normal NEG [facility] Comment on above: Performed By: #### U A #### [facility] [address] [place] [address] Maintenance Data Analyst: Hayden Cartagena MD Blood, Urine Negative Normal NEG [facility] Comment on above: Performed By: #### U A #### [facility] [address] [place] [address] [place] [place], [place] [phone] Maintenance Data Analyst: Hayden Cartagena MD Clarity (U) Clear Normal CLEAR [facility] Comment on above: Performed By: #### U A #### [facility] [address] [place] [address] [place], [place] 3000283 Maintenance Data Analyst: Hayden Cartagena MD Color (U) Yellow Normal YEL [facility] Comment on above: Performed By: #### U A #### [facility] [address] [place] [address] [place], [place] [phone] Maintenance Data Analyst: Hayden Cartagena MD Glucose Ql (U) Negative Normal NEG [facility] Comment on above: Performed By: #### U A #### [facility] [address] [place] [address] [place] [place], [place] 0247783 Maintenance Data Analyst: Hayden Cartagena MD Ketones Ql (U) Negative Normal NEG [facility] Comment on above: Performed By: #### U A #### [facility] [address] [place] [address] [place], [place] [phone] Maintenance Data Analyst: Hayden Cartagena MD Leukocyte esterase Test strip Ql (U) Negative Normal NEG [facility] Comment on above: Performed By: #### U A #### [facility] [address] [place] [address] Dr. [place], [place] 9303183 Maintenance Data Analyst: Hayden Cartagena MD Nitrite,Ur Negative Normal NEG [facility] Comment on above: Performed By: #### U A #### [facility] [address] [place] [address] [place], [place] 7839383 Maintenance Data Analyst: Hayden Cartagena MD PH,Ur 6.0 Normal 5.0-9.0 [facility] Comment on above: Performed By: #### U A #### [facility] [address] [place] [address] [place] [place], [place] [phone] Maintenance Data Analyst: Hayden Cartagena MD Protein Ql (U) Negative Normal NEG [facility] Comment on above: Performed By: #### U A #### [facility] [address] [place] [address] Maintenance Data Analyst: Hayden Cartagena MD Spec. Jackson,Ur <1.005 Low 1.010-1.020 [facility] Comment on above: Performed By: #### U A #### [facility] [address] [place] [address] Maintenance Data Analyst: Hayden Cartagena MD Urobilinogen,Ur Normal Normal 0.0-1.0 [facility] Comment on above: Performed By: #### U A #### [facility] [address] [place], [place] 8877783 Maintenance Data Analyst: Hayden Cartagena MD Glucose, Whole Bloodon 09-03 Glucose [Mass/Vol] 160 mg/dL High 74-100 [facility] Urinalysis, Routineon 2023 Bilirubin, SemiQt,Ur Negative Normal NEG [facility] Comment on above: Performed By: #### U MICAO, UA #### [address] [place], [place] 6663283 Maintenance Data Analyst: Hayden Cartagena MD Blood, Urine Negative Normal NEG [facility] Comment on above: Performed By: #### U MICAO, UA #### [facility] [address] [place] [address] Maintenance Data Analyst: Hayden Cartagena MD Clarity (U) Clear Normal CLEAR [facility] Comment on above: Performed By: #### U MICAO, UA #### [facility] [address] [place] [address] Maintenance Data Analyst: Hayden Cartagena MD Color (U) Yellow Normal YEL [facility] Comment on above: Performed By: #### U MICAO, UA #### [facility] [address] [place], [place] 0373383 Maintenance Data Analyst: Hayden Cartagena MD Glucose Ql (U) 1+ mg/dL Abnormal NEG [facility] Comment on above: Performed By: #### U MICAO, UA #### [facility] [address] [place], [place] 2259583 Maintenance Data Analyst: Hayden Cartagena MD Ketones Ql (U) Negative Normal NEG [facility] Comment on above: Performed By: #### U MICAO, UA #### [address] [place], [place] 8685183 Maintenance Data Analyst: Hayden Cartagena MD Leukocyte esterase Test strip Ql (U) Negative Normal NEG [facility] Comment on above: Performed By: #### U MICAO, UA #### [address] [place], [facility]83 Maintenance Data Analyst: Hayden Cartagena MD Nitrite,Ur Negative Normal [facility] Comment on above: Performed By: #### U MICAO, UA #### [address] [place], [place] 0185883 Maintenance Data Analyst: Hayden Cartagena MD PH,Ur 6.0 Normal 5.0-9.0 [facility] Comment on above: Performed By: #### U MICAO, UA #### [facility] [address] [place] [address] Dr. [place], [facility]83 Maintenance Data Analyst: Hayden Cartagena MD Protein Ql (U) Negative Normal NEG [facility] Comment on above: Performed By: #### U MICAO, UA #### [facility] [address] [place] [address] [place], [place] 5835983 Maintenance Data Analyst: Hayden Cartagena MD Spec. Jackson,Ur <1.005 Low 1.010-1.020 [facility] Comment on above: Performed By: #### U MICAO, UA #### [facility] [address] [place], [place] 1588083 Maintenance Data Analyst: Hayden Cartagena MD Urobilinogen,Ur Normal Normal 0.0-1.0 [facility] Comment on above: Performed By: #### U MICAO, UA #### [facility] [address] [place], [place] 7080783 Maintenance Data Analyst: Hayden Cartagena MD Urinalysis,Microon Bacteria TRACE Abnormal NONE [facility] Comment on above: Performed By: #### U MICAO, UA #### [facility] [address] [place], [place] 7933583 Maintenance Data Analyst: Hayden Cartagena MD Epithelial cells LM Ql (Urine sed) 5 TO 10 Normal 0-25 [facility] Comment on above: Performed By: #### U MICAO, UA #### [facility] [address] [place], [place] 3204283 Maintenance Data Analyst: Hayden Cartagena MD Urine RBC's None Normal 0-2 [facility] Comment on above: Performed By: #### U MICAO, UA #### [facility] [address] [place] [address] Dr[place], [place] 8399583 Maintenance Data Analyst: Hayden Cartagena MD Urine WBC's None Normal 0-5 [facility] Comment on above: Performed By: #### U MICAO, UA #### [facility] [address] [place], [place] 2608883 Maintenance Data Analyst: Hayden Cartagena MD Urinalysis, Routineon 2023 Bilirubin, SemiQt,Ur Negative Normal NEG [facility] Comment on above: Performed By: #### U A #### [facility] [address] [place] [address] Dr. [place], [place] 0768483 Maintenance Data Analyst: Hayden Cartagena MD Blood, Urine Negative Normal NEG [facility] Comment on above: Performed By: #### U A #### [facility] [address] [place] [address] [place] [address] Maintenance Data Analyst: Hayden Cartagena MD Clarity (U) Clear Normal CLEAR [facility] Comment on above: Performed By: #### U A #### [facility] [address] [place] [address] Dr[place], [place] 6413383 Maintenance Data Analyst: Hayden Cartagena MD Color (U) Yellow Normal YEL [facility] Comment on above: Performed By: #### U A #### [facility] [address] [place] [address] [place]. [place], [place] 6050483 Maintenance Data Analyst: Hayden Cartagena MD Glucose Ql (U) Negative Normal NEG [facility] Comment on above: Performed By: #### U A #### [facility] [address] [place] [address] Dr. [place], [place] 0366383 Maintenance Data Analyst: Hayden Cartagena MD Ketones Ql (U) Negative Normal NEG [facility] Comment on above: Performed By: #### U A #### [facility] [address] [place] [address] [place] [address] Maintenance Data Analyst: Hayden Cartagena MD Leukocyte esterase Test strip Ql (U) Negative Normal NEG [facility] Comment on above: Performed By: #### U A #### [facility] [address] [place] [address] Dr[address] [place], [place] 7030483 Maintenance Data Analyst: Hayden Cartagena MD Nitrite,Ur Negative Normal NEG [facility] Comment on above: Performed By: #### U A #### [facility] [address] [place] [address] Dr. [place], [place] 9609083 Maintenance Data Analyst: Hayden Cartagena MD PH,Ur 6.0 Normal 5.0-9.0 [facility] Comment on above: Performed By: #### U A #### [facility] [address] [place] [address] Dr[place], [place] 1135283 Maintenance Data Analyst: Hayden Cartagena MD Protein Ql (U) Negative Normal NEG [facility] Comment on above: Performed By: #### U A #### [facility] [address] [place] [address] Maintenance Data Analyst: Hayden Cartagena MD Spec. Jackson,Ur <1.005 Low 1.010-1.020 [facility] Comment on above: Performed By: #### U A #### [facility] [address] [place] [address] Maintenance Data Analyst: Hayden Cartagena MD Urobilinogen,Ur Normal Normal 0.0-1.0 [facility] Comment on above: Performed By: #### U A #### [facility] [address] [place] [address] Maintenance Data Analyst: Hayden Cartagena MD Microscopic Urinalysison Bacteria LM Ql (Urine sed) 1+ Abnormal None [facility] Epithelial cells LM.HPF (Urine sed) [#/Area] 0 TO 2 [facility] Interpretation and review of laboratory results Abnormal [facility] RBC LM.HPF (Urine sed) [#/Area] None [facility] WBC LM.HPF (Urine sed) [#/Area] None [facility] Urinalysison 08-24-2023 Bilirubin Ql (U) Negative NEGATIVE [facility] Clarity (U) Clear Clear [facility] Color (U) Yellow Yellow [facility] Glucose Test strip (U) [Mass/Vol] 1+ Abnormal NEGATIVE mg/dL [facility] Hemoglobin Auto test strip Ql (U) Negative NEGATIVE [facility] Interpretation and review of laboratory results Abnormal [facility] Ketones (U) [Mass/Vol] Negative NEGAT ROSA mg/dL [facility] Leukocyte esterase Test strip Ql (U) Negative NEGATIVE [facility] Nitrite Ql (U) Negative NEGATIVE [facility] pH (U) 6.0 [pH] 5.0 - 9.0 [facility] Protein (U) [Mass/Vol] Negative NEGAT ROSA mg/dL [facility] Specific gravity (U) [Rel density] Low 1.010 - 1.020 [facility] Urobilinogen Qn (U) Normal 0.0 - 1. 0 EU/dL [facility] Urinalysis, Routineon 2023 Bilirubin, SemiQt,Ur Negative Normal NEG [facility] Comment on above: Performed By: #### U RC #### [address] [address] Maintenance Data Analyst: Claude Gonzalez MD [address] [place] [address] Maintenance Data Analyst: Hayden Cartagena MD Blood, Urine Negative Normal [facility] Comment on above: Performed By: #### U RC #### [address] [address] Maintenance Data Analyst: Claude Gonzalez MD [address] [place] 1438683 Maintenance Data Analyst: Hayden Cartagena MD Clarity (U) Clear Normal CLEAR [facility] Comment on above: Performed By: #### U RC #### [address] [address] Maintenance Data Analyst: Claude Gonzalez MD [address] [place] 1438683 Maintenance Data Analyst: Hayden Cartagena MD Color (U) Yellow Normal YEL [facility] Comment on above: Performed By: #### U RC #### [address] [address] Maintenance Data Analyst: Claude Gonzalez MD [facility] [address] [place] [address] [place] [address] Maintenance Data Analyst: Hayden Cartagena MD Glucose Ql (U) 1+ mg/dL Abnormal NEG [facility] Comment on above: Performed By: #### U RC #### [facility] [address] [place] [address] Maintenance Data Analyst: Claude Gonzalez MD [facility] [address] [place] [address] Dr. [place], [place] 0034183 Maintenance Data Analyst: Hayden Cartagena MD Ketones Ql (U) Negative Normal NEG [facility] Comment on above: Performed By: #### U RC #### [address] [address] Maintenance Data Analyst: Claude Gonzalez MD [facility] [address] [place] [address] Dr. [place], [place] 2850683 Maintenance Data Analyst: Hayden Cartagena MD Leukocyte esterase Test strip Ql (U) Negative Normal NEG [facility] Comment on above: Performed By: #### U RC #### [address] [address] Maintenance Data Analyst: Claude Gonzalez MD [facility] [address] [place] [address] [place] [address] Maintenance Data Analyst: Hayden Cartagena MD Nitrite,Ur Negative Normal [facility] Comment on above: Performed By: #### U RC #### [address] [address] Maintenance Data Analyst: Claude Gonzalez MD [facility] [address] [place] [address] Dr. [place], [place] 3042983 Maintenance Data Analyst: Hayden Cartagena MD PH,Ur 6.0 Normal 5.0-9.0 [facility] Comment on above: Performed By: #### U RC #### [address] [address] Maintenance Data Analyst: Claude Gonzalez MD [facility] [address] [place] [address] [place] [address] Maintenance Data Analyst: Hayden Cartagena MD Protein Ql (U) Negative Normal NEG [facility] Comment on above: Performed By: #### U RC #### [place] [address] [place] [address] Maintenance Data Analyst: Claude Gonzalez MD [facility] [address] [place] [address] Dr. [place] 1438683 Maintenance Data Analyst: Hayden Cartagena MD Spec. Jackson,Ur <1.005 Low 1.010-1.020 [facility] Comment on above: Performed By: #### U RC #### [address] [address] Maintenance Data Analyst: Claude Gonzalez MD [facility] [address] [place] [address] Dr. [place] 1438683 Maintenance Data Analyst: Hayden Cartagena MD Urobilinogen,Ur Normal Normal 0.0-1.0 [facility] Comment on above: Performed By: #### U RC #### [address] [address] Maintenance Data Analyst: Claude Gonzalez MD [facility] [address] [place] [address] Dr. [place] 1438683 Maintenance Data Analyst: Hayden Cartagena MD Urinalysis,Microon 4 Bacteria 1+ Abnormal NONE [facility] Comment on above: Performed By: #### U RC #### [address] [address] Maintenance Data Analyst: Claude Gonzalez MD [facility] [address] [place] [address] [place] [address] Maintenance Data Analyst: Hayden Cartagena MD Epithelial cells LM Ql (Urine sed) 0 TO 2 Normal 0-25 [facility] Comment on above: Performed By: #### U RC #### [address] [address] Maintenance Data Analyst: Claude Gonzalez MD [facility] [address] [place] [address] Dr. [place] 1438683 Maintenance Data Analyst: Hayden Cartagena MD Urine RBC's None Normal 0-2 [facility] Comment on above: Performed By: #### U RC #### [facility] [address] [place] [address] Maintenance Data Analyst: Claude Gonzalez MD [facility] [address] [place] [address] [place] [address] Maintenance Data Analyst: Hayden Cartagena MD Urine WBC's None Normal 0-5 [facility] Comment on above: Performed By: #### U RC #### [facility] [address] [place] [address] Maintenance Data Analyst: Claude Gonzalez MD [address] [place] [address] Maintenance Data Analyst: Hayden Cartagena MD Cult,Urineon 07-01-2023 Cult,Urine Specimen Description .CLEAN CATCH URINE Culture NO SIGNIFICANT GROWTH Report Status FINAL 07/01/2023 Normal [facility] Comment on above: Performed By: #### U RC #### [facility] [address] [place] [address] Maintenance Data Analyst: Claude Gonzalez MD [address] [place] [address] Maintenance Data Analyst: Hayden Cartagena MD Urinalysis w/ Microon 2023 Bilirubin, SemiQt,Ur Negative Normal NEG [facility] Comment on above: Performed By: #### U AMIC #### [facility] [address] [place] [address] [place] [address] Maintenance Data Analyst: Hayden Cartagena MD Blood, Urine Negative Normal NEG [facility] Comment on above: Performed By: #### U AMIC #### [address] [place] [address] Maintenance Data Analyst: Hayden Cartagena MD Clarity (U) Clear Normal CLEAR [facility] Comment on above: Performed By: #### U AMIC #### [facility] [address] [place], [place] 4948483 Maintenance Data Analyst: Hayden Cartagena MD Color (U) Yellow Normal YEL [facility] Comment on above: Performed By: #### U AMIC #### [facility] [address] [place], [place] 3738983 Maintenance Data Analyst: Hayden Cartagena MD Epithelial cells LM Ql (Urine sed) 2 TO 5 Normal 0-25 [facility] Comment on above: Performed By: #### U AMIC #### [facility] [address] [place], [place] 3106183 Maintenance Data Analyst: Hayden Cartagena MD Glucose Ql (U) Negative Normal NEG [facility] Comment on above: Performed By: #### U AMIC #### [facility] [address] [place] [address] Dr[address] [place], [place] [id number] Maintenance Data Analyst: Hayden Cartagena MD Ketones Ql (U) Negative Normal NEG [facility] Comment on above: Performed By: #### U AMIC #### [facility] [address] [place] [address] Dr. [place], [place] [phone] Maintenance Data Analyst: Hayden Cartagena MD Leukocyte esterase Test strip Ql (U) Negative Normal NEG [facility] Comment on above: Performed By: #### U AMIC #### [facility] [address] [place], [place] [phone] Maintenance Data Analyst: Hayden Cartagena MD Nitrite,Ur Negative Normal NEG [facility] Comment on above: Performed By: #### U AMIC #### [facility] [address] [place], [place] [phone] Maintenance Data Analyst: Hayden Cartagena MD PH,Ur 6.0 Normal 5.0-9.0 [facility] Comment on above: Performed By: #### U AMIC #### [facility] [address] [place], [place] [phone] Maintenance Data Analyst: Hayden Cartagena MD Protein Ql (U) Negative Normal NEG [facility] Comment on above: Performed By: #### U AMIC #### [facility] [address] [place] [address] Maintenance Data Analyst: Hayden Cartagena MD Spec. Jackson,Ur 1.010 Normal 1.010-1.020 [facility] Comment on above: Performed By: #### U AMIC #### [facility] [address] [place] [phone] Maintenance Data Analyst: Hayden Cartagena MD Urine RBC's None Normal 0-2 [facility] Comment on above: Performed By: #### U AMIC #### [address] [place] [id number] Maintenance Data Analyst: Hayden Cartagena MD Urine WBC's None Normal 0-5 [facility] Comment on above: Performed By: #### U AMIC #### [facility] [address] [place] [address] Dr. [place], [place] [phone] Maintenance Data Analyst: Hayden Cartagena MD Urobilinogen,Ur Normal Normal 0.0-1.0 [facility] Comment on above: Performed By: #### U AMIC #### [address] [place], [place] [phone] Maintenance Data Analyst: Hayden Cartagena MD Cult,Urineon 05-03-2023 Cult,Urine Specimen [...] Tobramycin <=1 SUSCEPTIBLE Trimethoprim/Sulfa <=20 SUSCEPTIBLE Susceptible [facility] Comment on above: Performed By: #### U RC #### [address] [place] [address] Maintenance Data Analyst: Claude Gonzalez MD [facility] [address] [place] [address] [place], [place] [phone] Maintenance Data Analyst: Hayden Cartagena MD HIV Ag/Abon 05-02-2023 HIV Ag/Ab Non-Reactive Normal [facility] Comment on above: Result Comment: No l aboratory evidence of HIV infection. If acute HIV infection is suspected, consider testing for HIV-1 RNA. Performed By: #### U RC #### [address] [address] Maintenance Data Analyst: Claude Gonzalez MD [address] [place] [address] Maintenance Data Analyst: Hayden Cartagena MD T.pallidum Ab Screenon 05-01 T.pallidum Ab Screen Non-Reactive Normal NR [facility] Comment on above: Result Comment: T. pallidum antibodies are not detected. There is no serological evidence of infection with T. pallidum (early primary syphilis cannot be excluded). Retest in 2-4 weeks if syphilis is clinically suspect. Performed By: #### U RC #### [address] [address] Maintenance Data Analyst: Claude Gonzalez MD [facility] [address] [place] [address] [place] [address] Maintenance Data Analyst: Hayden Cartagena MD CBC with Auto Differentialon 05-01-2023 Basophils (Bld) [#/Vol] 0.03 10*3/uL [facility] Basophils/100 WBC (Bld) 0 % 0 - 2 % [facility] Eosinophils (Bld) [#/Vol] [facility] Eosinophils/100 WBC (Bld) 0 % Low 1 - 4 % [facility] Erythrocyte distribution width (RBC) [Ratio] 12.2 % 11.8 - 14.4 % [facility] Hematocrit (Bld) [Volume fraction] 36.2 % Low 36.3 - 47.1 % [facility] Hemoglobin (Bld) [Mass/Vol] 12.1 g/dL 11.9 - 15.1 g/dL [facility] Immature granulocytes (Bld) [#/Vol] [facility] Immature granulocytes/100 WBC (Bld) 0 % 0 [facility] Interpretation and review of laboratory results Abnormal [facility] Lymphocytes/100 WBC (Bld) 19 % Low 24 - 43 % [facility] Lymphocytes/100 WBC (Bld) 1.62 % [facility] MCH (RBC) [Entitic mass] 32.1 pg 25.2 - 33.5 pg [facility] MCHC (RBC) [Mass/Vol] 33.4 g/dL 28.4 - 34.8 g/dL [facility] MCV (RBC) [Entitic vol] 96.0 fL 82.6 - 102.9 fL [facility] Monocytes/100 WBC (Bld) 6 % 3 - 12 % [facility] Monocytes/100 WBC (Bld) 0.51 % [facility] Neutrophils/100 WBC (Bld) 75 % High 36 - 65 % [facility] Nucleated RBC/100 WBC (Bld) [Ratio] 0.0 % 0.0 per 100 WBC [facility] Platelet mean volume (Bld) [Entitic vol] 10.3 fL 8.1 - 13.5 fL [facility] Platelets (Bld) [#/Vol] 201 10*3/uL [facility] RBC (Bld) [#/Vol] 3.77 10*6/uL Low 3.95 - 5.1 1 m/uL [facility] Segmented neutrophils/100 WBC (Bld) 6.24 % [facility] WBC other (Bld) [#/Vol] 8.4 [facility] CBC with Diffon 05-01-2023 Abs. Basophil 0.03 k/uL Normal 0.00-0.20 [facility] Comment on above: Performed By: #### C DP #### [address] [place] [address] Maintenance Data Analyst: Hayden Cartagena MD #### LISA, HIVCMB, AHCV, TREP, GLYHGB, HBS #### [address] [address] Maintenance Data Analyst: Claude Gonzalez MD Abs. Eosinophil <0.03 Normal 0.00-0.44 [facility] Comment on above: Performed By: #### C DP #### [address] [place] [address] Maintenance Data Analyst: Hayden Cartagena MD #### LISA, HIVCMB, AHCV, TREP, GLYHGB, HBS #### [place] [address] Maintenance Data Analyst: Claude Gonzalez MD Abs.Imm.Granulocyte <0.03 Normal 0.00-0.30 [facility] Comment on above: Performed By: #### C DP #### [address] [place] [address] Maintenance Data Analyst: Hayden Cartagena MD #### LISA, HIVCMB, AHCV, TREP, GLYHGB, HBS #### [place] [address] Maintenance Data Analyst: Claude Gonzalez MD Abs.Neutrophil (Seg) 6.24 k/uL Normal 1.50-8.10 [facility] Comment on above: Performed By: #### C DP #### [address] [place] 1438683 Maintenance Data Analyst: Hayden Cartagena MD #### LISA, HIVCMB, AHCV, TREP, GLYHGB, HBS #### [place] [address] Maintenance Data Analyst: Claude Gonzalez MD Basophils/100 WBC (Bld) 0 % Normal 0-2 M [facility] Comment on above: Performed By: #### C DP #### [facility] [address] [place] [address] Dr. [place] 1438683 Maintenance Data Analyst: Hayden Cartagena MD #### LISA, HIVCMB, AHCV, TREP, GLYHGB, HBS #### [address] [phone] Maintenance Data Analyst: Claude Gonzalez MD Eosinophils/100 WBC (Bld) 0 % Low 1-4 [facility] Comment on above: Performed By: #### C DP #### [address] [place] 1438683 Maintenance Data Analyst: Hayden Cartagena MD #### LISA, HIVCMB, AHCV, TREP, GLYHGB, HBS #### [address] [phone] Maintenance Data Analyst: Claude Gonzalez MD Erythrocyte distribution width (RBC) [Ratio] 12.2 % Normal 11.8-14.4 [facility] Comment on above: Performed By: #### C DP #### [address] [place] 1438683 Maintenance Data Analyst: Hayden Cartagena MD #### LISA, HIVCMB, AHCV, TREP, GLYHGB, HBS #### [address] [phone] Maintenance Data Analyst: Claude Gonzalez MD Hematocrit (Bld) [Volume fraction] 36.2 % Low 36.3-47.1 [facility] Comment on above: Performed By: #### C DP #### [facility] [address] [place] [address] Dr. [place] 1438683 Maintenance Data Analyst: Hayden Cartagena MD #### LISA, HIVCMB, AHCV, TREP, GLYHGB, HBS #### [address] [place] [address] Maintenance Data Analyst: Claude Gonzalez MD Hemoglobin (Bld) [Mass/Vol] 12.1 g/dL Normal 11.9-15.1 [facility] Comment on above: Performed By: #### C DP #### [address] [place] [address] Maintenance Data Analyst: Hayden Cartagena MD #### LISA, HIVCMB, AHCV, TREP, GLYHGB, HBS #### [place] [address] Maintenance Data Analyst: Claude Gonzalez MD Immature granulocytes/100 WBC (Bld) 0 % Normal 0 [facility] Comment on above: Performed By: #### C DP #### [address] [place] 1438611 ( Maintenance Data Analyst: Hayden Cartagena MD #### LISA, HIVCMB, AHCV, TREP, GLYHGB, HBS #### [place] [address] Maintenance Data Analyst: Claude Gonzalez MD Lymphocytes (Bld) [#/Vol] 1.62 10*3/uL Normal 1.10-3.70 [facility] Comment on above: Performed By: #### C DP #### [address] [place] 1438683 Maintenance Data Analyst: Hayden Cartagena MD #### LISA, HIVCMB, AHCV, TREP, GLYHGB, HBS #### [place] [phone] Maintenance Data Analyst: Claude Gonzalez MD Lymphocytes/100 WBC (Bld) 19 % Low 24-43 [facility] Comment on above: Performed By: #### C DP #### [address] [place] 1438683 Maintenance Data Analyst: Hayden Cartagena MD #### LISA, HIVCMB, AHCV, TREP, GLYHGB, HBS #### [address] [phone] Maintenance Data Analyst: Claude Gonzalez MD MCH (RBC) [Entitic mass] 32.1 pg Normal 25.2-33.5 [facility] Comment on above: Performed By: #### C DP #### [address] [place] 1438683 Maintenance Data Analyst: Hayden Cartagena MD #### LISA, HIVCMB, AHCV, TREP, GLYHGB, HBS #### [place] [phone] Maintenance Data Analyst: Claude Gonzalez MD MCHC (RBC) [Mass/Vol] 33.4 g/dL Normal 28.4-34.8 [facility] Comment on above: Performed By: #### C DP #### [address] [place] 1438683 Maintenance Data Analyst: Hayden Cartagena MD #### LISA, HIVCMB, AHCV, TREP, GLYHGB, HBS #### [place] [phone] Maintenance Data Analyst: Claude Gonzalez MD MCV (RBC) [Entitic vol] 96.0 fL Normal 82.6-102.9 M [facility] Comment on above: Performed By: #### C DP #### [address] [place] 1438683 Maintenance Data Analyst: Hayden Cartagena MD #### LISA, HIVCMB, AHCV, TREP, GLYHGB, HBS #### [address] [phone] Maintenance Data Analyst: Claude Gonzalez MD Monocytes (Bld) [#/Vol] 0.51 10*3/uL Normal 0.10-1.20 [facility] Comment on above: Performed By: #### C DP #### [facility] [address] [place] [address] Dr. [place] 1438683 Maintenance Data Analyst: Hayden Cartagena MD #### LISA, HIVCMB, AHCV, TREP, GLYHGB, HBS #### [address] [phone] Maintenance Data Analyst: Claude Gonzalez MD Monocytes/100 WBC (Bld) 6 % Normal 3-12 M [facility] Comment on above: Performed By: #### C DP #### [address] [place] 1438683 Maintenance Data Analyst: Hayden Cartagena MD #### LISA, HIVCMB, AHCV, TREP, GLYHGB, HBS #### [place] [phone] Maintenance Data Analyst: Claude Gonzalez MD Neutrophil (Seg) 75 % High 36-65 [facility] Comment on above: Performed By: #### C DP #### [address] [place] 1438683 Maintenance Data Analyst: Hayden Cartagena MD #### LISA, HIVCMB, AHCV, TREP, GLYHGB, HBS #### [place] [phone] Maintenance Data Analyst: Claude Gonzalez MD NRBC Automated 0.0 per 100 WBC Normal 0.0 [facility] Comment on above: Performed By: #### C DP #### [facility] [address] [place] [address] Dr. [place] [phone] Maintenance Data Analyst: Hayden Cartagena MD #### LISA, HIVCMB, AHCV, TREP, GLYHGB, HBS #### [address] [address] Maintenance Data Analyst: Claude Gonzalez MD Platelet mean volume (Bld) [Entitic vol] 10.3 fL Normal 8.1-13.5 [facility] Comment on above: Performed By: #### C DP #### [address] [place] 1438683 Maintenance Data Analyst: Hayden Cartagena MD #### LISA, HIVCMB, AHCV, TREP, GLYHGB, HBS #### [address] [place] [address] Maintenance Data Analyst: Claude Gonzalez MD Platelets (Bld) [#/Vol] 201 10*3/uL Normal 138-453 [facility] Comment on above: Performed By: #### C DP #### [address] [place] 1438683 Maintenance Data Analyst: Hayden Cartagena MD #### LISA, HIVCMB, AHCV, TREP, GLYHGB, HBS #### [address] [address] Maintenance Data Analyst: Claude Gonzaelz MD RBC (Bld) [#/Vol] 3.77 10*6/uL Low 3.95-5.11 [facility] Comment on above: Performed By: #### C DP #### [address] [place] [phone] Maintenance Data Analyst: Hayden Cartagnea MD #### LISA, HIVCMB, AHCV, TREP, GLYHGB, HBS #### [address] [address] Maintenance Data Analyst: Claude Gonzalez MD WBC (Bld) [#/Vol] 8.4 10*3/uL Normal 3.5-11.3 [facility] Comment on above: Performed By: #### C DP #### [address] [place] 1438683 Maintenance Data Analyst: Hayden Cartagena MD #### LISA, HIVCMB, AHCV, TREP, GLYHGB, HBS #### [address] [place] [address] Maintenance Data Analyst: Claude Gonzalez MD Hemoglobin A1Con 05-01-2023 Average glucose Estimated from glycated hemoglobin (Bld) [Mass/Vol] 85 mg/dL [facility] Comment on above: The ADA and AACC rec ommend providing the estimated average glucose result to permit better patient understanding of their HBA1c result. HbA1c (Bld) [Mass fraction] 4.6 % 4.0 - 6.0 % [facility] Glucose [Mass/Vol] 85 mg/dL Normal [facility] Comment on above: Result Comment: The ADA and AACC recommend providing the estimated average glucose result to permit better patient understanding of their HBA1c result. Performed By: #### U RC #### [address] [address] Maintenance Data Analyst: Claude Gonzalez MD [address] [place], [place] 1138383 Maintenance Data Analyst: Hayden Cartagena MD HbA1c (Bld) [Mass fraction] 4.6 % Normal 4.0-6.0 [facility] Comment on above: Performed By: #### U RC #### [address] [address] Maintenance Data Analyst: Claude Gonzalez MD [address] [place], [place] [phone] Maintenance Data Analyst: Hayden Cartagena MD Hep B Surf Agon 2 Hep B Surf Ag Non-Reactive Normal NR [facility] Comment on above: Performed By: #### U RC #### [address] [address] Maintenance Data Analyst: Claude Gonzalez MD [address] [place] [address] Maintenance Data Analyst: Hayden Cartagena MD Hep C Abon 05-01-2023 Hep C Ab Non-Reactive Normal NR [facility] Comment on above: Result Comment: The [...] PCR. Performed By: #### C DP #### [facility] [address] [place] [address] [place] [address] Maintenance Data Analyst: Hayden Cartagena MD #### LISA, HIVCMB, AHCV, TREP, GLYHGB, HBS #### [facility] [address] [place] [address] Maintenance Data Analyst: Claude Gonzalez MD Hepatitis B Surface Antigeno n 05-01-2023 HBV surface Ag IA Ql Non-Reactive NONREACTIVE [facility] Hepatitis C Antibodyon 04-30 HCV Ab IA Ql Non-Reactive NONREACTIVE [facility] Comment on above: The hepatitis [...] RNA by PCR. No Panel Informationon 04-30 [facility] Rubella Ab, IgGon 05-01-2023 Rubella Ab, IgG >500.[address] [facility] Comment on above: Result Comment: REFERENCE RANGE: <5.0 NON-REACTIVE (non-immune) 5.0 TO 9.9 EQUIVOCAL >=10.0 REACTIVE (immune) Performed By: #### U RC #### [facility] [address] [place], [place] [phone] Maintenance Data Analyst: Claude Gonzalez MD [facility] [address] [place] [address] [place] [address] Maintenance Data Analyst: Hayden Cartagena MD Rubella antibody, IgGon Rubella virus IgG IA Ql IU/mL [facility] Comment on above: REFERENCE RANGE: <5.0 NON-REACTIVE (non-immune) 5.0 TO 9.9 EQUIVOCAL >=10.0 REACTIVE (immune) [facility] TYPE AND SCREENon 05-01-2023 ABO and Rh group Nom (Bld) Blood group O Rh(D) negative [facility] Blood Bank Sample Expiration 05/04/2023,2359 [facility] Blood group antibodies identified Nom Negative [facility] Type + Screenon 05-01-2023 Type + Screen Sample Expiration 05/04/2023,2359 ABO/Rh(D) O NEGATIVE Antibody Screen NEGATIVE Normal [facility] Comment on above: Performed By: #### T YS #### [facility] [address] [place] [address] [place] [address] Maintenance Data Analyst: Hayden Cartagena MD CBC with Auto Differentialon 08-03-2022 Basophils (Bld) [#/Vol] 0.04 10*3/uL [facility] Basophils/100 WBC (Bld) 0 % 0 - 2 % B [facility] Eosinophils (Bld) [#/Vol] [facility] Eosinophils/100 WBC (Bld) 0 % Low 1 - 4 % [facility] Erythrocyte distribution width (RBC) [Ratio] 12.2 % 11.8 - 14.4 % [facility] Hematocrit (Bld) [Volume fraction] 39.4 % 36.3 - 47.1 % [facility] Hemoglobin (Bld) [Mass/Vol] 13.2 g/dL 11.9 - 15.1 g/dL [facility] Immature granulocytes (Bld) [#/Vol] [facility] Immature granulocytes/100 WBC (Bld) 0 % 0 [facility] Interpretation and review of laboratory results Abnormal [facility] Lymphocytes/100 WBC (Bld) 17 % Low 24 - 43 % [facility] Lymphocytes/100 WBC (Bld) 1.86 % [facility] MCH (RBC) [Entitic mass] 32.1 pg 25.2 - 33.5 pg [facility] MCHC (RBC) [Mass/Vol] 33.5 g/dL 28.4 - 34.8 g/dL [facility] MCV (RBC) [Entitic vol] 95.9 fL 82.6 - 102.9 fL [facility] Monocytes/100 WBC (Bld) 4 % 3 - 12 % [facility] Monocytes/100 WBC (Bld) 0.42 % [facility] Neutrophils/100 WBC (Bld) 79 % High 36 - 65 % [facility] NRBC Automated 0.0 0.0 per 100 WBC [facility] Platelet mean volume (Bld) [Entitic vol] 10.5 fL 8.1 - 13.5 fL [facility] Platelets (Bld) [#/Vol] 213 10*3/uL [facility] RBC (Bld) [#/Vol] 4.11 10*6/uL 3.95 - 5.1 1 m/uL [facility] Segmented neutrophils/100 WBC (Bld) 8.49 % High [facility] WBC other (Bld) [#/Vol] 10.8 [facility] CMPon 08-03-2022 Albumin [Mass/Vol] 4.6 g/dL 3.5 - 5.2 g/dL [facility] Albumin/Globulin [Mass ratio] 1.5 {ratio} 1.0 - 2.5 [facility] ALP [Catalytic activity/Vol] 79 U/L 35 - 104 U/L [facility] ALT [Catalytic activity/Vol] 9 U/L 5 - 33 U/L [facility] Anion gap [Moles/Vol] 11 mmol/L 9 - 17 mmol/L [facility] AST [Catalytic activity/Vol] 13 U/L NINF - 32 U/L [facility] Bilirubin [Mass/Vol] 1.1 mg/dL 0.3 - 1 .2 mg/dL [facility] Calcium [Mass/Vol] 10.0 mg/dL 8.6 - 10. 4 mg/dL [facility] Chloride [Moles/Vol] 104 mmol/L 98 - 10 7 mmol/L [facility] CO2 [Moles/Vol] 26 mmol/L 20 - 31 mmol/L [facility] Creatinine [Mass/Vol] 0.68 mg/dL 0.50 - 0.90 mg/dL [facility] GFR/1.73 sq M.predicted MDRD (S/P/Bld) [Vol rate/Area] - PINF [facility] Comment on above: These results are [...] [Mass/Vol] 90 mg/dL 70 - 99 mg/dL [facility] Interpretation and review of laboratory results Abnormal [facility] Potassium [Moles/Vol] 3.4 mmol/L Low 3.7 - 5.3 mmol/L [facility] Protein [Mass/Vol] 7.7 g/dL 6.4 - 8.3 g/dL [facility] Sodium [Moles/Vol] 141 mmol/L 135 - 144 mmol/L [facility] Urea nitrogen [Mass/Vol] 6 mg/dL 6 - 20 mg/dL [facility] Urea nitrogen/Creatinine [Mass ratio] 9 mg/mg 9 - [address] [facility] [address] ABDOMEN PELVIS WO CONTRAS T Additional [...] superficial soft tissues show no acute process. [facility] Cody Posey MD - 08/03/2022 [...] urinary tract calculi. 3. No bowel obstruction. [employer] Work Phone: Radiology Study observation (narrative) [email or web address] Work Phone: CT ABDOMEN PELVIS WO CONTRAS T Additional Contrast? NoneOrdered By: Cody Gregg on 08-03-2022 [employer] Work Phone: Microscopic Urinalysison Bacteria LM Ql (Urine sed) 4+ Abnormal None [employer] Epithelial cells LM.HPF (Urine sed) [#/Area] 10 TO 20 [employer] Interpretation and review of laboratory results Abnormal [employer] RBC LM.HPF (Urine sed) [#/Area] 10 TO 20 [employer] WBC LM.HPF (Urine sed) [#/Area] 20 TO 50 [employer] [facility] Urinalysis with Reflex to Cu ltureon 08-03-2022 Bilirubin Ql (U) Negative NEGATIVE [employer] Clarity (U) Cloudy Abnormal Clear [employer] Color (U) Yellow Yellow [employer] [facility] Glucose Test strip (U) [Mass/Vol] Negative NEGATIVE [employer] [facility] Hemoglobin Auto test strip Ql (U) 3+ Abnormal NEGATIVE [employer] Interpretation and review of laboratory results Abnormal [employer] Ketones (U) [Mass/Vol] Negative NEGATIVE [employer] Leukocyte esterase Test strip Ql (U) SMALL Abnormal NEGATIVE [employer] Nitrite Ql (U) Positive Abnormal NEGATIVE Pairy pH (U) 6.0 [pH] 5.0 - 9.0 [employer] Protein (U) [Mass/Vol] 2+ Abnormal NEGATIVE [facility] Specific gravity (U) [Rel density] 1.025 High 1.010 - 1.020 [facility] Urobilinogen Qn (U) Normal Normal SARWAT KAMARA [facility] hCG, quantitative, on 08-03-2022 hCG Quant NINF [facility] Comment on above: Non-preg premeno <=5 Postmeno <=8 Male <=3 If HCG results do not concur with clinical observations, additional testing to confirm results is recommended. SARWAT [facility] JASMINA DIGITAL DIAGNOSTIC BILATERALon 06-03-2022 Radiology Study observation (narrative) SARWAT MARROQUIN [facility] Work Phone: No Panel Informationon 06-03 1. Negative bilateral mammogram. 2. No evidence for a discrete abscess or cellulitis in the periareolar right breast, for which clinical follow-up is recommended. BI-RADS 2 BIRADS: BIRADS - CATEGORY 2 Benign Findings. OVERALL ASSESSMENT - BENIGN A letter of notification will be sent to the patient regarding the results. The [employer] recommends annual mammograms for women 40 years and older. [facility] RIS CONSOLIDATED EXAMINATION: DIAGNOSTIC DIGITAL BILATERAL [...] Panel InformationOrdered By: Matt Sharma on 06-03-2022 [facility] [employer] Work Phone: US BREAST LIMITED RIGHTon Radiology Study observation (narrative) SARWAT HOLDERO [facility] [employer] Work Phone: CBC with Auto Differentialon 04-24-2022 Absolute Eos # [facility] S [facility] Absolute Immature Granulocyte 0.05 [facility] Absolute Lymph # 0.56 [facility] Absolute Rawlins # 0.78 [facility] RS [facility] Basophils (Bld) [#/Vol] 0.04 10*3/uL [facility] Basophils/100 WBC (Bld) 0 % 0 - 2 % [facility] Eosinophils/100 WBC (Bld) 0 % Low 1 - 4 % [facility] Hematocrit (Bld) [Volume fraction] 43.7 % 36.3 - 47.1 % [facility] Hemoglobin (Bld) [Mass/Vol] 15.6 g/dL High 11.9 - 15.1 g/dL [facility] Immature granulocytes/100 WBC (Bld) 0 % 0 [facility] Interpretation and review of laboratory results Abnormal [facility] [facility] Lymphocytes/100 WBC (Bld) 4 % Low 24 - 43 % [facility] MCH (RBC) [Entitic mass] 33.1 pg 25.2 - 33.5 pg [facility] MCHC (RBC) [Mass/Vol] 35.7 g/dL High 28.4 - 34.8 g/dL [facility] MCV (RBC) [Entitic vol] 92.8 fL 82.6 - 102.9 fL [facility] Monocytes/100 WBC (Bld) 5 % 3 - 12 % B [facility] NRBC Automated 0.0 0.0 per 100 WBC [facility] Platelet distribution width (Bld) [Ratio] 12.3 % 11.8 - 14.4 % [facility] Platelet mean volume (Bld) [Entitic vol] 10.5 fL 8.1 - 13.5 fL [facility] Platelets (Bld) [#/Vol] 174 10*3/uL [facility] RBC (Bld) [#/Vol] 4.71 10*6/uL 3.95 - 5.1 1 m/uL [facility] Segmented neutrophils/100 WBC (Bld) 91 % High 36 - 65 % [facility] Segs Absolute 13.82 High [facility] WBC (Bld) [#/Vol] 15.3 10*3/uL High [facility] CMPon 04-24-2022 Albumin [Mass/Vol] 4.8 g/dL 3.5 - 5.2 g/dL [facility] Albumin/Globulin [Mass ratio] 1.6 {ratio} 1.0 - 2.5 [facility] ALP [Catalytic activity/Vol] 87 U/L 35 - 104 U/L [facility] ALT [Catalytic activity/Vol] 19 U/L 5 - 33 U/L [facility] Anion gap [Moles/Vol] 17 mmol/L 9 - 17 mmol/L [facility] AST [Catalytic activity/Vol] 23 U/L NINF - 32 U/L [facility] Bilirubin [Mass/Vol] 1.0 mg/dL 0.3 - 1 .2 mg/dL [facility] Calcium [Mass/Vol] 10.4 mg/dL 8.6 - 10. 4 mg/dL [facility] Chloride [Moles/Vol] 105 mmol/L 98 - 10 7 mmol/L [facility] CO2 [Moles/Vol] 19 mmol/L Low 20 - 31 mmol/L [facility] Creatinine [Mass/Vol] 0.84 mg/dL 0.50 - 0.90 mg/dL [facility] GFR/1.73 sq M.predicted MDRD (S/P/Bld) [Vol rate/Area] - PINF [facility] Comment on above: These results are [...] 151 mg/dL High 70 - 99 mg/dL [facility] [employer] Interpretation and review of laboratory results Abnormal [facility] [employer] Potassium [Moles/Vol] 3.9 mmol/L 3.7 - 5.3 mmol/L [facility] [employer] Protein [Mass/Vol] 7.8 g/dL 6.4 - 8.3 g/dL [facility] [employer] Sodium [Moles/Vol] 141 mmol/L 135 - 144 mmol/L [facility] Urea nitrogen [Mass/Vol] 9 mg/dL 6 - 20 mg/dL [facility] Urea nitrogen/Creatinine (Bld) [Mass ratio] 11 9 - [address] [facility] [address] ABDOMEN PELVIS W IV CONTR AST [...] pathologic adenopathy. Bones/Soft Tissues: No acute abnormality [facility] Rogelio Huang MD - 04/24/2022 EXAMINATION: CT OF THE [...] Otherwise, no acute intra-abdominal or pelvic abnormality [employer] Work Phone: Radiology Study observation (narrative) [email or web address] Work Phone: CT ABDOMEN PELVIS W IV CONTR AST Additional Contrast? NoneOrdered By: Rogelio Lima on 04-24-2022 [employer] Work Phone: Lactic Acidon 04-24-2022 Lactate (P samantha) [Moles/Vol] 2.1 mmol/L 0.5 - 2.2 mmol/L [employer] Lipaseon 04-24-2022 Lipase [Catalytic activity/Vol] 24 U/L 13 - 60 U/L [facility] Microscopic Urinalysison Bacteria, UA 1+ Abnormal None [facility] Epithelial Cells UA 5 TO 10 [facility] Interpretation and review of laboratory results Abnormal [facility] Mucus, UA 1+ Abnormal None [facility] RBC clumps Auto (Urine sed) [#/Area] None [facility] WBC, UA 0 TO 2 [facility] No Panel Informationon 04-24 [facility] Urinalysison 04-24-2022 Bilirubin Urine Negative NEGATIVE [facility] Color, UA Yellow Yellow [facility] Glucose Auto test strip (U) [Mass/Vol] Negative NEGATIVE [facility] Interpretation and review of laboratory results Abnormal [facility] Ketones (U) [Mass/Vol] 2+ Abnormal NEGATIVE [facility] Leukocyte esterase Auto test strip Ql (U) Negative NEGATIVE [facility] Nitrite Auto test strip Ql (U) Negative NEGATIVE [facility] Protein (U) [Mass/Vol] 5.0 - 9.0 [facility] Protein (U) [Mass/Vol] Negative NEGATIVE [facility] Specific Jackson, UA 1.010 1.010 - 1.020 B ON [facility] Turbidity UA SLIGHTLY CLOUDY Abnormal Clear [facility] Urine Hgb Negative NEGATIVE [facility] Urobilinogen, Urine Normal Normal [facility] , urineon 3 Beta HCG ( test) Ql (U) Negative NEGATIVE [facility] Comment on above: Specimens with hCG l evels near the threshold of the test (25 mIU/mL) may give a negative or indeterminate result. In such cases, another test should be performed with a new specimen in 48-72 hours. If early is suspected clinically in this setting, correlation with quantitative serum b-hCG level is suggested. [employer] has confirmed the use of plasma for this test. This has not been cleared or approved by the U.S. Food and Drug Administration. The FDA has determined that such clearance is not necessary. [facility] Cholesterol [Mass/volume] in Serum or PlasmaOrdered By: Feliberto Faust on 10-27-2021 Cholesterol [Mass/Vol] 102 mg/dL 140-200 [facility] Comment on above: Chol less than 200 m g/dl low risk Chol 201-239 mg/dl borderline risk Chol 240 mg/dl and greater high risk Cholesterol in LDL Calc [Mas s/Vol]Ordered By: Feliberto Faust on 10-27-2021 Cholesterol in LDL [Mass/Vol] 58 mg/dL 0-100 [facility] Comment on above: LDL ATP III CLASSIFI CATION LDL less than 100 mg/dL Optimal LDL 100-129 mg/dL Near or above optimal LDL 130-159 mg/dL Borderline high LDL 160-189 mg/dL High LDL greater than 189 mg/dL Very high Cholesterol in VLDL Calc [Ma ss/Vol]Ordered By: Feliberto Faust on 10-27-2021 Cholesterol in VLDL [Mass/Vol] 13 mg/dL [facility] ECG 12 lead ECGon 10-27-2021 ECG 12 lead ECG [facility] [place] [address] Electrocardiograph Report Signed Patient: Bennett Vaughn MR#: [id number] 7 : 1995 Acct:[id number] Age/Sex: 26 / F ADM Date: 10/26/21 Loc: Room: [address] [place] [address] Type: DIS IN Attending Dr: Feliberto Faust [...] : 416 ms Sinus bradycardia with short DC Otherwise normal ECG When compared with ECG of 10-APR-2019 09:44, Vent. rate has decreased BY 29 BPM Confirmed by PAYAM LIVINGSTON DO ([id number]) on 10/27/2021 1:03:16 PM Referred By: Electronically Signed By:PAYAM LIVINGSTON DO Transcribed By: MUS Signed By Payam Livingston DO 10/27 1303 Normal [facility] Lipid Panelon 10-27-2021 Cholesterol [Mass/Vol] 102 mg/dL Low 140-200 [facility] Comment on above: Result Comment: Chol less than 200 mg/dl low risk Chol 201-239 mg/dl borderline risk Chol 240 mg/dl and greater high risk Performed By: #### L IPID, TSH3 wRFLX, [id number] #### [facility] [address] [id number] [facility] Cholesterol in HDL [Mass/Vol] 30 mg/dL Low 35-85 [facility] Comment on above: Result Comment: HDL CHOL ATP-III CLASSIFICATION Cardiovascular Risk HDL > or equal to 60 mg/dL LOW HDL < 40 mg/dL HIGH Performed By: #### L IPID, TSH3 wRFLX, [id number] #### [facility] [address] [id number] [facility] Cholesterol.total/Fanny sterol in HDL [Mass ratio] 3.4 {ratio} Normal <5.0 [facility] Comment on above: Performed By: #### L IPID, TSH3 wRFLX, [id number] #### [facility] [address] [place] [address] [place] LDL Cholesterol,Calculated 58 mg/dL Normal 0-100 [facility] Comment on above: Result Comment: LDL ATP III CLASSIFICATION LDL less than 100 mg/dL Optimal LDL 100-129 mg/dL Near or above optimal LDL 130-159 mg/dL Borderline high LDL 160-189 mg/dL High LDL greater than 189 mg/dL Very high Performed By: #### L IPID, TSH3 wRFLX, [id number] #### [facility] [address] [place] [address] [place] Triglyceride w/Reflex 68 mg/dL Normal 35-149 [facility] Comment on above: Result Comment: TRIG ATP III CLASSIFICATION TRIG less than 150 mg/dL Normal TRIG 150-199 mg/dL Borderline high TRIG 200-500 mg/dL High TRIG greater than 500 mg/dL Very high Standard traceable to the Center for Disease Conrtrol and Prevention (CDC) test method. Performed By: #### L IPID, TSH3 wRFLX, [id number] #### [facility] [address] VLDL CHOLESTEROL 13 mg/dL Normal [facility] Comment on above: Performed By: #### L IPID, TSH3 wRFLX, [id number] #### [facility] [address] No Panel InformationOrdered By: Feliberto Faust on 10-27-2021 25-Hydroxy Vitamin D Total 36.4 ng/mL 30-100 [facility] Comment on above: VITAMIN D STATUS [...] Cholesterol in HDL [Mass/Vol] 30 mg/dL 35-85 [facility] Comment on above: HDL CHOL ATP-III CLA SSIFICATION Cardiovascular Risk HDL > or equal to 60 mg/dL LOW HDL < 40 mg/dL HIGH Serum or plasma total choles terol/high density lipoprotein (HDL) cholesterol mass ratOrdered By: Feliberto Faust on 10-27-2021 Cholesterol.total/Fanny sterol in HDL [Mass ratio] 3.4 {ratio} <5.0 [facility] TSH DL <= 0.005 mIU/L QnOrde red By: Feliberto Faust on 10-27-2021 TSH Qn 1.28 m[IU]/L 0.45-5.33 [facility] Thyroid Stim Hormone w/Rflxo n 10-27-2021 Thyroid Stim Hormone w/Rflx 1.28 u[iU]/mL Normal 0.45-5.33 [facility] Comment on above: Performed By: #### L IPID, TSH3 wRFLX, [id number] #### [facility] [address] [id number] [facility] Triglyceride [Mass/volume] i n Serum or PlasmaOrdered By: Feliberto Faust on 10-27-2021 Triglyceride [Mass/Vol] 68 mg/dL 35-149 [facility] Comment on above: TRIG ATP III CLASSIF ICATION TRIG less than 150 mg/dL Normal TRIG 150-199 mg/dL Borderline high TRIG 200-500 mg/dL High TRIG greater than 500 mg/dL Very high Standard traceable to the Center for Disease Conrtrol and Prevention (CDC) test method. Vitamin D 25 Hydroxy Totalon 10-27-2021 Vitamin D 25 Hydroxy Total 36.4 ng/mL Normal 30-100 [facility] Comment on above: Result Comment: KELSEY MIN D STATUS 25(OH)VITAMIN D RANGE (ng/mL) Deficient <20 Insufficient 20 to <30 Sufficient 30 to 100 Reference: Kath MF,Ramón NC, Teetee DAVIS, et al. Evaluation,treatment, and prevention of vitamin D deficiency; an Endocrine Society clinical practice guideline. JCEM. 2010; 96(7):1911-30. PERFORMED BY: [place] [address] PATHOLOGIST [employer]INET ATTENDANT JAMES MCNAIR M.D. Performed By: #### C BC, ETOH, CMP #### [facility] [address] [id number] [facility] Albumin [Mass/volume] in Ser um or PlasmaOrdered By: Ed Amaral on 10-26-2021 Albumin [Mass/Vol] 4.0 g/dL 3.2-5.5 [facility] Amphetamine Screen Ql (U)Ord ered By: Ed Amaral on 10-26-2021 Amphetamines Ql (U) Negative Negative [facility] Automated erythrocytes count in urine sediment (number/area)Ordered By: Ed Amaral on 10-26-2021 RBC Auto (Urine sed) [#/Area] 0-1 [HPF] 0-4 [facility] Automated leukocytes count i n urine sediment (number/area)Ordered By: Ed Amaral on 10-26-2021 WBC Auto (Urine sed) [#/Area] 1-2 [HPF] 0-4 [facility] Automated urine color determ inationOrdered By: Ed Amaral on 10-26-2021 Color (U) Yellow Normal Yellow [facility] Comment on above: Order Comment: Name Collection Type:: Clean-Voided Midstream Performed By: #### S OFIANEG, URDS, ADDONUAPLUS, UHCG, COVID-19 FELI #### [facility] [address] Barbiturates [Presence] in U rineOrdered By: Ed Amaral on 10-26-2021 Barbiturates Ql (U) Negative Negative [facility] Basophils Auto (Bld) [#/Vol] Ordered By: Ed Amaral on 10-26-2021 Basophils (Bld) [#/Vol] 0.1 10*3/uL 0.0-0.2 [facility] Basophils/100 WBC Auto (Bld) Ordered By: Ed Amaral on 10-26-2021 Basophils/100 WBC (Bld) 0.8 % . [facility] Benzodiazepines [Presence] i n UrineOrdered By: Ed Amaral on 10-26-2021 Benzodiazepines Ql (U) Negative Negative [facility] Bilirubin Test strip Ql (U)O rdered By: Ed Amaral on 10-26-2021 Bilirubin Ql (U) Negative Negative [facility] Blood hemoglobin measurement (mass/volume)Ordered By: Ed Amaral on 10-26-2021 Hemoglobin (Bld) [Mass/Vol] 13.3 g/dL 11.8-15.4 [facility] Blood leukocytes automated c ount (number/volume)Ordered By: Ed Amaral on 10-26-2021 WBC (Bld) [#/Vol] 10.2 10*3/uL 4.5-11.0 [facility] COVID-19 Antigenon 2 COVID-19 Antigen Healthcare Worker?: [...] developed and its performance characteristic determined by [employer] and validated at [facility]. This test has not been FDA [...] for SARS Antigen by ERNESTO PERFORMED BY: [place] [address] PATHOLOGIST [employer]Y HE[employer]IN[employer] ATTENDANT JAMES MCNAIR M.D. [facility] Comment on above: Performed By: #### S BALJINDER HOBSON, ADDONUAPLUS, UHCG, COVID-19 FELI #### [facility] [address] COVID-19 SOFIAOrdered By: Archie Amaral on 10-26-2021 SARS-CoV+SARS-CoV-2 (COVID-19) Ag IA.rapid Ql (Resp) Negative Negative [facility] Comment on above: This is a duplicate Feli SARS Antigen (ERNESTO) result to be used for statistical tracking purpose only. Cannabinoids [Presence] in U rine by Screen methodOrdered By: Ed Amaral on 10-26-2021 Cannabinoids Screen Ql (U) Positive Negative [facility] Comment on above: These are unconfirme d results and should not be used for legal purposes. Drug Cut-Off Concentration: AMPH 1000 ng/mL SANCHEZ 200 ng/mL RENZO 200 ng/mL COCM 300 ng/mL OP 300 ng/mL PCP 25 ng/mL THC 20 ng/mL Complete Blood Count Auto Di ffon 10-26-2021 Basophils (Bld) [#/Vol] 0.1 10*3/uL Normal 0.0-0.2 [facility] Comment on above: Result Comment: PERF ORMED BY: [place] [address] PATHOLOGIST [employer] ATTENDANT JAMES MCNAIR M.D. Performed By: #### C BC, ETOH, CMP #### [address] Basophils/100 WBC (Bld) 0.8 % Normal . [facility] Comment on above: Performed By: #### C BC, ETOH, CMP #### [address] Eosinophils (Bld) [#/Vol] 0.2 10*3/uL Normal 0.0-0.45 [facility] Comment on above: Performed By: #### C BC, ETOH, CMP #### [address] Eosinophils/100 WBC (Bld) 1.9 % Normal . [facility] Comment on above: Performed By: #### C BC, ETOH, CMP #### [address] Erythrocyte distribution width (RBC) [Ratio] 13.0 % Normal 11.9-15.3 [facility] Comment on above: Performed By: #### C BC, ETOH, CMP #### [address] Hematocrit (Bld) [Volume fraction] 39.1 % Normal 34.0-46.4 [facility] Comment on above: Performed By: #### C BC, ETOH, CMP #### [facility] [address] [place] [address] [place] Hemoglobin (Bld) [Mass/Vol] 13.3 g/dL Normal 11.8-15.4 [facility] Comment on above: Performed By: #### C BC, ETOH, CMP #### [facility] [address] Lymphocytes (Bld) [#/Vol] 2.2 10*3/uL Normal 1.00-4.8 [facility] Comment on above: Performed By: #### C BC, ETOH, CMP #### [facility] [address] Lymphocytes/100 WBC (Bld) 21.5 % Normal . [facility] Comment on above: Performed By: #### C BC, ETOH, CMP #### [facility] [address] MCH (RBC) [Entitic mass] 32.9 pg Normal 24.7-34.3 [facility] Comment on above: Performed By: #### C BC, ETOH, CMP #### [facility] [address] [place] [address] [place] MCV (RBC) [Entitic vol] 96.5 fL Normal 80-100 [facility] Comment on above: Performed By: #### C BC, ETOH, CMP #### [facility] [address] Mean Corpuscular HGB Conc 34.1 g/dL Normal 32.0-35.0 [facility] Comment on above: Performed By: #### C BC, ETOH, CMP #### [facility] [address] [place] [address] [place] Monocytes (Bld) [#/Vol] 0.6 10*3/uL Normal 0.0-0.8 [facility] Comment on above: Performed By: #### C BC, ETOH, CMP #### [facility] [address] [place] [address] [place] Monocytes/100 WBC (Bld) 6.2 % Normal . [facility] Comment on above: Performed By: #### C BC, ETOH, CMP #### [facility] [address] Neutrophils (Bld) [#/Vol] 7.1 10*3/uL Normal 1.8-7.7 [facility] Comment on above: Performed By: #### C BC, ETOH, CMP #### [facility] [address] Neutrophils/100 WBC (Bld) 69.6 % Normal . [facility] Comment on above: Performed By: #### C BC, ETOH, CMP #### [facility] [address] Nucleated RBC/100 WBC (Bld) [Ratio] 0.0 % Normal 0-0.5 [facility] Comment on above: Performed By: #### C BC, ETOH, CMP #### [address] Platelet mean volume (Bld) [Entitic vol] 9.0 fL Normal 6.3-10.7 [facility] Comment on above: Performed By: #### C BC, ETOH, CMP #### [facility] [address] [place] [address] [place] Platelets (Bld) [#/Vol] 173 10*3/uL Normal 150-450 [facility] Comment on above: Performed By: #### C BC, ETOH, CMP #### [facility] [address] [place] [address] [place] RBC (Bld) [#/Vol] 4.05 10*6/uL Normal 3.60-5.00 [facility] Comment on above: Performed By: #### C BC, ETOH, CMP #### [facility] [address] [place] [address] [place] WBC (Bld) [#/Vol] 10.2 10*3/uL Normal 4.5-11.0 [facility] Comment on above: Performed By: #### C BC, ETOH, CMP #### [address] Comprehensive Metabolic Pane vinita 08-30-2022 Albumin [Mass/Vol] 4.0 g/dL Normal 3.2-5.5 [facility] Comment on above: Performed By: #### C BC, ETOH, CMP #### [address] Albumin/Globulin [Mass ratio] 1.5 {ratio} Normal [facility] Comment on above: Performed By: #### C BC, ETOH, CMP #### [facility] [address] ALP [Catalytic activity/Vol] 55 U/L Normal 32-92 [facility] Comment on above: Performed By: #### C BC, ETOH, CMP #### [address] ALT [Catalytic activity/Vol] 20 U/L Normal 10-60 [facility] Comment on above: Performed By: #### C BC, ETOH, CMP #### [address] Anion gap [Moles/Vol] 10.1 mmol/L Normal 6.0-15.0 [facility] Comment on above: Performed By: #### C BC, ETOH, CMP #### [address] AST [Catalytic activity/Vol] 17 U/L Normal 10-42 [facility] Comment on above: Performed By: #### C BC, ETOH, CMP #### [address] Bilirubin [Mass/Vol] 0.4 mg/dL Normal 0.3-1.2 [facility] Comment on above: Performed By: #### C BC, ETOH, CMP #### [address] Calcium [Mass/Vol] 9.5 mg/dL Normal 8.2-10.2 [facility] Comment on above: Performed By: #### C BC, ETOH, CMP #### [place] [address] [place] Chloride [Moles/Vol] 104 mmol/L Normal 95-114 [facility] Comment on above: Performed By: #### C BC, ETOH, CMP #### [address] CO2 [Moles/Vol] 25.3 mmol/L Normal 22.0-30.0 [facility] Comment on above: Performed By: #### C BC, ETOH, CMP #### [facility] [address] Creatinine [Mass/Vol] 0.81 mg/dL Normal 0.44-1.03 [facility] Comment on above: Performed By: #### C BC, ETOH, CMP #### [address] Creatinine Clr Calc Pharmacy 97.62 [facility] Comment on above: Result Comment: PERF ORMED BY: [place] [address] PATHOLOGIST [employer]IN[employer] ATTENDANT JAMES MCNAIR M.D. Performed By: #### C BC, ETOH, CMP #### [address] Estimated GFR ( Nette > 60 [facility] Comment on above: Result Comment: GFR estimated reference range: According to KDOQI guidelines, <60 ml/min/1.73m2 is sufficient to diagnose a patient with chronic kidney disease. Performed By: #### C BC, ETOH, CMP #### [address] Estimated GFR (Non- Am > 60 [facility] Comment on above: Performed By: #### C BC, ETOH, CMP #### [address] Globulin (S) [Mass/Vol] 2.7 g/dL Normal [facility] Comment on above: Performed By: #### C BC, ETOH, CMP #### [facility] [address] Glucose [Mass/Vol] 98 mg/dL Normal 70-100 [facility] Comment on above: Result Comment: [place] Glucose Reference Range is dependent on time and content of last meal. Glucose of more than 200 mg/dL in a nonstressed, ambulatory subject supports the diagnosis of Diabetes Mellitus. ADA recommended reference range Performed By: #### C BC, ETOH, CMP #### [facility] [address] Potassium [Moles/Vol] 3.4 mmol/L Low 3.5-5.1 [facility] Comment on above: Performed By: #### C BC, ETOH, CMP #### [facility] [address] [place] [address] [place] Protein [Mass/Vol] 6.7 g/dL Normal 6.1-7.9 [facility] Comment on above: Performed By: #### C BC, ETOH, CMP #### [facility] [address] [place] [address] [place] Sodium [Moles/Vol] 136 mmol/L Normal 136-146 [facility] Comment on above: Performed By: #### C BC, ETOH, CMP #### [facility] [address] [place] [phone] [place] Urea nitrogen [Mass/Vol] 6 mg/dL Low 9-23 [facility] Comment on above: Performed By: #### C BC, ETOH, CMP #### [facility] [address] [place] [phone] [place] Creatinine and Glomerular fi ltration rate.predicted panel (S/P/Bld)Ordered By: Ed Amaral on 10-26-2021 Creatinine [Mass/Vol] 0.81 mg/dL 0.44-1.03 [facility] Dipstick and Microscopicon 0 10-26-2021 Appearance (U) Clear Normal Clear [facility] Comment on above: Order Comment: Name Collection Type:: Clean-Voided Midstream Performed By: #### S OFIANEG, URDS, ADDONUAPLUS, UHCG, COVID-19 FELI #### [facility] [address] [place] [phone] [place] Bilirubin,Urine Negative Normal Negative [facility] Comment on above: Order Comment: Name Collection Type:: Clean-Voided Midstream Performed By: #### S OFIANEG, URDS, ADDONUAPLUS, UHCG, COVID-19 FELI #### [facility] [address] Glucose Ql (U) Normal Normal Normal [facility] Comment on above: Order Comment: Name Collection Type:: Clean-Voided Midstream Performed By: #### S OFIANEG, URDS, ADDONUAPLUS, UHCG, COVID-19 FELI #### [facility] [address] [place] [address] [place] Ketones Ql (U) Negative Normal Negative [facility] Comment on above: Order Comment: Name Collection Type:: Clean-Voided Midstream Performed By: #### S OFIANEG, URDS, ADDONUAPLUS, UHCG, COVID-19 FELI #### [facility] [address] [place] [address] [place] Leukocyte esterase Test strip Ql (U) 1+ High Negative [facility] Comment on above: Order Comment: Name Collection Type:: Clean-Voided Midstream Performed By: #### S OFIANEG, URDS, ADDONUAPLUS, UHCG, COVID-19 FELI #### [facility] [address] [place] [address] [place] Nitrite,Urine Negative Normal Negative [facility] Comment on above: Order Comment: Name Collection Type:: Clean-Voided Midstream Performed By: #### S OFIANEG, URDS, ADDONUAPLUS, UHCG, COVID-19 FELI #### [facility] [address] [place] [address] [place] Occult Blood,Urine Negative Normal Negative [facility] Comment on above: Order Comment: Name Collection Type:: Clean-Voided Midstream Performed By: #### S OFIANEG, URDS, ADDONUAPLUS, UHCG, COVID-19 FELI #### [facility] [address] [place], [place] [id number] [place] Protein,Urine Negative Normal Negative [facility] Comment on above: Order Comment: Name Collection Type:: Clean-Voided Midstream Performed By: #### S OFIANEG, URDS, ADDONUAPLUS, UHCG, COVID-19 FELI #### [facility] [address] [place] [address] RBC LM.HPF (Urine sed) [#/Area] 0 /[HPF] Normal 0-4 [facility] Comment on above: Order Comment: Name Collection Type:: Clean-Voided Midstream Performed By: #### S OFIANEG, URDS, ADDONUAPLUS, UHCG, COVID-19 FELI #### [address] Specificy [place],Urine 1.005 Normal 1.001-1.030 [facility] Comment on above: Order Comment: Name Collection Type:: Clean-Voided Midstream Performed By: #### S OFIANEG, URDS, ADDONUAPLUS, UHCG, COVID-19 FELI #### [address] Squamous Epithelial Cell,Urine 1-2 Normal 0-2 [facility] Comment on above: Order Comment: Name Collection Type:: Clean-Voided Midstream Performed By: #### S OFIANEG, URDS, ADDONUAPLUS, UHCG, COVID-19 FELI #### [address] Urobilinogen,Urine Normal Normal Normal [facility] Comment on above: Order Comment: Name Collection Type:: Clean-Voided Midstream Performed By: #### S OFIANEG, URDS, ADDONUAPLUS, UHCG, COVID-19 FELI #### [facility] [address] [place] [address] WBC,Urine 1-2 Normal 0-4 [facility] Comment on above: Order Comment: Name Collection Type:: Clean-Voided Midstream Performed By: #### S OFIANEG, URDS, ADDONUAPLUS, UHCG, COVID-19 FELI #### [address] Drug Screen,Urineon 10-27-19 22 Amphetamine Screen,Urine Negative Normal Negative [facility] Comment on above: Performed By: #### S OFIANEG, URDS, ADDONUAPLUS, UHCG, COVID-19 FELI #### [address] Barbiturate Screen,Urine Negative Normal Negative [facility] Comment on above: Performed By: #### S OFIANEG, URDS, ADDONUAPLUS, UHCG, COVID-19 FELI #### [address] Benzodiazepines Screen,Urine Negative Normal Negative [facility] Comment on above: Performed By: #### S OFIANEG, URDS, ADDONUAPLUS, UHCG, COVID-19 FELI #### [address] Cannabinoid Screen,Urine Positive High Negative [facility] Comment on above: Result Comment: Thes e are unconfirmed results and should not be used for legal purposes. Drug Cut-Off Concentration: AMPH 1000 ng/mL SANCHEZ 200 ng/mL RENZO 200 ng/mL COCM 300 ng/mL OP 300 ng/mL PCP 25 ng/mL THC 20 ng/mL PERFORMED BY: [place] [address] PATHOLOGIST [employer] ATTENDANT JAMES MCNAIR M.D. Performed By: #### S OFIANEG, URDS, ADDONUAPLUS, UHCG, COVID-19 FELI #### [address] Cocaine Screen,Urine Negative Normal Negative [facility] Comment on above: Performed By: #### S OFIANEG, URDS, ADDONUAPLUS, UHCG, COVID-19 FELI #### [place] [address] [place] Opiate Screen,Urine Negative Normal Negative [facility] Comment on above: Performed By: #### S OFIANEG, URDS, ADDONUAPLUS, UHCG, COVID-19 FELI #### [facility] [address] Phencyclidine Screen,Urine Negative Normal Negative [facility] Comment on above: Performed By: #### S BALJINDER HOBSON, ADDONUAPLUS, UHCG, COVID-19 FELI #### [facility] [address] Eosinophils Auto (Bld) [#/Vo l]Ordered By: Ed Amaral on 10-26-2021 Eosinophils (Bld) [#/Vol] 0.2 10*3/uL 0.0-0.45 [facility] Eosinophils/100 WBC Auto (Bl d)Ordered By: Ed Amaral on 10-26-2021 Eosinophils/100 WBC (Bld) 1.9 % . [facility] Erythrocyte distribution wid th Auto (RBC) [Ratio]Ordered By: Ed Amaral on 10-26-2021 Erythrocyte distribution width (RBC) [Ratio] 13.0 % 11.9-15.3 [facility] Estimated glomerular filtrat ion rate (GFR) non- AmericanOrdered By: Ed Amaral on 10-26-2021 GFR/1.73 sq M.predicted among non-blacks MDRD (S/P/Bld) [Vol rate/Area] > 60 mL/Min [facility] Ethyl Alcohol Profileon 09-29 Ethanol [Mass/Vol] mg/dL Normal [facility] Comment on above: Performed By: #### C BC, ETOH, CMP #### [facility] [address] Percent Ethanol Not performed Normal [facility] Comment on above: Result Comment: PERF ORMED BY: [place] [address] PATHOLOGIST [employer] ATTENDANT JAMES MCNAIR M.D. Performed By: #### C BC, ETOH, CMP #### [facility] [address] [place] [address] Globulin Calc (S) [Mass/Vol] Ordered By: Ed Amaral on 10-26-2021 Globulin (S) [Mass/Vol] 2.7 g/dL [facility] HCG ( test) IA.rapi d Ql (U)Ordered By: Ed Amaral on 10-26-2021 HCG ( test) Ql (U) Negative [facility] HCG,Urineon 10-26-2021 Beta HCG ( test) Ql (U) Negative Normal [facility] Comment on above: Order Comment: Name Collection Type:: Clean-Voided Midstream Result Comment: PERF ORMED BY: [facility] [address] [place] [address] PATHOLOGIST [employer] ATTENDANT JAMES MCNAIR M.D. Performed By: #### S OFIANEG, URDS, ADDONUAPLUS, UHCG, COVID-19 FELI #### [address] Hematocrit Auto (Bld) [Volum e fraction]Ordered By: Ed Amaral on 10-26-2021 Hematocrit (Bld) [Volume fraction] 39.1 % 34.0-46.4 [facility] Ketones Auto test strip (U) [Mass/Vol]Ordered By: Ed Amaral on 10-26-2021 Ketones (U) [Mass/Vol] Negative Negative Fi [facility] Laboratory - Drug toxicology Ordered By: Ed Amaral on 10-26-2021 Opiates Ql (U) Negative Negative [facility] Laboratory - Hematology and Cell countsOrdered By: Ed Amaral on 10-26-2021 Nucleated RBC/100 WBC (Bld) [Ratio] 0.0 % 0-0.5 [facility] Lymphocytes Auto (Bld) [#/Vo l]Ordered By: Ed Amaral on 10-26-2021 Lymphocytes (Bld) [#/Vol] 2.2 10*3/uL 1.00-4.8 [facility] Lymphocytes/100 WBC Auto (Bl d)Ordered By: Ed Amaral on 10-26-2021 Lymphocytes/100 WBC (Bld) 21.5 % . [facility] MCH Auto (RBC) [Entitic mass ]Ordered By: Ed Amaral on 10-26-2021 MCH (RBC) [Entitic mass] 32.9 pg 24.7-34.3 [facility] MCHC Auto (RBC) [Mass/Vol]Or dered By: Ed Amaral on 10-26-2021 MCHC (RBC) [Mass/Vol] 34.1 g/dL 32.0-35.0 [facility] MCV Auto (RBC) [Entitic vol] Ordered By: Ed Amaral on 10-26-2021 MCV (RBC) [Entitic vol] 96.5 fL 80-100 [facility] Monocytes Auto (Bld) [#/Vol] Ordered By: Ed Amaral on 10-26-2021 Monocytes (Bld) [#/Vol] 0.6 10*3/uL 0.0-0.8 [facility] Monocytes/100 WBC Auto (Bld) Ordered By: Ed Amaral on 10-26-2021 Monocytes/100 WBC (Bld) 6.2 % . [facility] Neutrophils Auto (Bld) [#/Vo l]Ordered By: Ed Amaral on 10-26-2021 Neutrophils (Bld) [#/Vol] 7.1 10*3/uL 1.8-7.7 [facility] Neutrophils/100 WBC Auto (Bl d)Ordered By: Ed Amaral on 10-26-2021 Neutrophils/100 WBC (Bld) 69.6 % . [facility] Nitrite Test strip Ql (U)Ord ered By: Ed Amaral on 10-26-2021 Nitrite Ql (U) Negative Negative [facility] No Panel InformationOrdered By: Ed Amaral on 10-26-2021 Estimated GFR () > 60 mL/Min [facility] Comment on above: GFR estimated refere nce range: According to KDOQI guidelines, <60 ml/min/1.73m2 is sufficient to diagnose a patient with chronic kidney disease. Pharmacy Creatinine Clearance (Chem 97.62 [facility] SARS Antigen (LFIA) [facility] Phencyclidine Screen Ql (U)O rdered By: Ed Amaral on 10-26-2021 Phencyclidine Ql (U) Negative Negative [facility] Platelet mean volume Auto (B ld) [Entitic vol]Ordered By: Ed Amaral on 10-26-2021 Platelet mean volume (Bld) [Entitic vol] 9.0 fL 6.3-10.7 [facility] Platelets Auto (Bld) [#/Vol] Ordered By: Ed Amaral on 10-26-2021 Platelets (Bld) [#/Vol] 173 10*3/uL 150-450 [facility] Protein Auto test strip (U) [Mass/Vol]Ordered By: Ed Amaral on 10-26-2021 Protein (U) [Mass/Vol] Negative Negative [facility] Protein [Mass/volume] in Ser um or PlasmaOrdered By: Ed Amaral on 10-26-2021 Protein [Mass/Vol] 6.7 g/dL 6.1-7.9 [facility] RBC Auto (Bld) [#/Vol]Ordere d By: Ed Amaral on 10-26-2021 RBC (Bld) [#/Vol] 4.05 10*6/uL 3.60-5.00 [facility] Serum or plasma alanine daniel otransferase measurement without P-5'-P (enzymatic activiOrdered By: Ed Amaral on 10-26-2021 ALT No additional P-5'-P [Catalytic activity/Vol] 20 U/L 10-60 [facility] Serum or plasma albumin/glob ulin mass ratioOrdered By: Ed Amaral on 10-26-2021 Albumin/Globulin [Mass ratio] 1.5 {ratio} [facility] Serum or plasma alkaline jame sphatase measurement (enzymatic activity/volume)Ordered By: Ed Amaral on 10-26-2021 ALP [Catalytic activity/Vol] 55 U/L 32-92 [facility] Serum or plasma anion gap de terminationOrdered By: Ed Amaral on 10-26-2021 Anion gap [Moles/Vol] 10.1 mmol/L 6.0-15.0 [facility] Serum or plasma aspartate am inotransferase measurement (enzymatic activity/volume)Ordered By: Ed Amaral on 10-26-2021 AST [Catalytic activity/Vol] 17 U/L 10-42 [facility] Serum or plasma calcium stephane urement (mass/volume)Ordered By: Ed Amaral on 10-26-2021 Calcium [Mass/Vol] 9.5 mg/dL 8.2-10.2 [facility] Serum or plasma chloride rios surement (moles/volume)Ordered By: Ed Amaral on 10-26-2021 Chloride [Moles/Vol] 104 mmol/L 95-114 [facility] Serum or plasma ethanol stephane urement (mass/volume)Ordered By: Ed Amaral on 10-26-2021 Ethanol [Mass/Vol] mg/dL [facility] Ethanol [Mass/Vol] TNP [facility] Comment on above: Test not performed Serum or plasma glucose stephane urement (mass/volume)Ordered By: Ed Amaral on 10-26-2021 Glucose [Mass/Vol] 98 mg/dL 70-100 [facility] Comment on above: ADA recommended refe rence range Random Glucose Reference Range is dependent on time and content of last meal. Glucose of more than 200 mg/dL in a nonstressed, ambulatory subject supports the diagnosis of Diabetes Mellitus. Serum or plasma potassium me asurement (moles/volume)Ordered By: Ed Amaral on 10-26-2021 Potassium [Moles/Vol] 3.4 mmol/L 3.5-5.1 [facility] Serum or plasma sodium measu rement (moles/volume)Ordered By: Ed Amaral on 10-26-2021 Sodium [Moles/Vol] 136 mmol/L 136-146 [facility] Serum or plasma total biliru bin measurement (mass/volume)Ordered By: Ed Amaral on 10-26-2021 Bilirubin [Mass/Vol] 0.4 mg/dL 0.3-1.2 [facility] Serum or plasma total carbon dioxide measurement (moles/volume)Ordered By: Ed Amaral on 10-26-2021 CO2 [Moles/Vol] 25.3 mmol/L 22.0-30.0 [facility] Serum or plasma urea nitroge n measurement (mass/volume)Ordered By: Ed Amaral on 10-26-2021 Urea nitrogen [Mass/Vol] 6 mg/dL - [facility] Feli Ag Negativeon 10-27-19 Feli Ag Negative Negative Normal Negative [facility] Comment on above: Result Comment: This is a duplicate Feli SARS Antigen (ERNESTO) result to be used for statistical tracking purpose only. PERFORMED BY: [facility] [address] [place] [address] PATHOLOGIST [employer] ATTENDANT JAMES MCNAIR M.D. Performed By: #### S BALJINDER HOBSON, DAVIDPLUS, UHCG, COVID-19 FELI #### [facility] [address] Specific gravity Auto test s trip (U) [Rel density]Ordered By: Ed Amaral on 10-26-2021 Specific gravity (U) [Rel density] 1.005 1.001-1.030 [facility] Squamous epithelial cells de tection in urine sediment by light microscopyOrdered By: Ed Amaral on 10-26-2021 Epithelial cells.squamous LM Ql (Urine sed) 1-2 [HPF] 0-2 [facility] Urine bacteria detection by automated methodOrdered By: Ed Amaral on 10-26-2021 Bacteria Auto Ql (U) N/A [facility] Urine clarity by refractomet ry automatedOrdered By: Ed Amaral on 10-26-2021 Clarity Refractometry automated (U) Clear Clear [facility] Urine cocaine detectionOrder ed By: Ed Amaral on 10-26-2021 Cocaine Ql (U) Negative Negative [facility] Urine glucose measurement by automated test strip (mass/volume)Ordered By: Ed Amaral on 10-26-2021 Glucose Auto test strip (U) [Mass/Vol] Normal mg/dL Normal [facility] Urine hemoglobin detection b y automated test stripOrdered By: Ed Amaral on 10-26-2021 Hemoglobin Auto test strip Ql (U) Negative Negative [facility] Urine leukocyte esterase det ection by automated test stripOrdered By: Ed Amaral on 10-26-2021 Leukocyte esterase Auto test strip Ql (U) 1+ Negative [facility] Urine pH measurement by auto mated test stripOrdered By: Ed Amaral on 10-26-2021 pH (U) 7.0 [pH] Normal 5.0-9.0 [facility] Comment on above: Order Comment: Name Collection Type:: Clean-Voided Midstream Performed By: #### S OFIANEG, URDS, ADDONUAPLUS, UHCG, COVID-19 FELI #### [facility] [address] [place] [id number] [facility] Urobilinogen Auto test strip (U) [Mass/Vol]Ordered By: Ed Amaral on 10-26-2021 Urobilinogen (U) [Mass/Vol] Normal mg/dL Normal [facility] Viral Non-Resp Culton 2021 Viral Non-Resp Cult Specimen Description .WOUND UPPER .LIP Culture POSITIVE: HSV-1 DNA detected by nucleic acid amp. NEGATIVE: HSV-2 DNA not detected by nucleic acid amplification. Due to the specimen source, HSV 1,2 testing was performed by a molecular method. Report Status FINAL 05/30/2021 Normal [facility] Comment on above: Performed By: #### [facility] #### [address] [address] Maintenance Data Analyst: Claude Gonzalez MD No Panel InformationOrdered By: Kia Sharma on 05-28-2021 Reported Physicians See Note [facility] Work Phone: Comment on above: Note: Reported Physi cians:Ordering: Andres SharmaaAttending: Andres SharmaaReferring: Kia Sharma Viral Non-Resp Cult See Note [facility] Work Phone: Comment on above: Note: Specimen Descr iption .WOUND UPPER .LIPCulture POSITIVE: HSV-1 DNA detected by nucleic acid amp.NEGATIVE: HSV-2 DNA not detected by nucleic acid amplification.Due to the specimen source, HSV 1,2 testing was performed by a molecular method.Report Status FINAL 2Responsible Observer: SUMMER BOYD ([id number]) Follicle Stimulating Hormone on 03-10-2021 FSH 4.5 U/L 1.7 - 21.5 U/L [facility] Comment on above: Reference Range: Male: 1.5-12.4 Ovulating Female: Follicular Phase 3.5-12.5 Ovulation Phase 4.7-21.5 Luteal Phase 1.7-7.7 Postmenopausal Female: 25.8-134.8 Luteinizing Hormoneon 2021 LH 3.0 U/L 1.0 - 95.6 U/L [facility] Comment on above: Reference Range: Male: 1.7-8.6 Ovulating Female: Follicular Phase 2.4-12.6 Ovulation Phase 14.0-95.6 Luteal Phase 1.0-11.4 Postmenopausal Female: 7.7-58.5 No Panel Informationon 03-10 [facility] Prolactinon 03-10-2021 Prolactin 5.96 ug/L 4.79 - 23.30 ug/L [facility] Comment on above: The presence of macr oprolactin may cause interference in female patients with various endocrinological diseases or during . [facility] TSH with Reflexon 03-10-2021 TSH Qn 0.72 m[IU]/L [employer] hCG, Quantitative, on 03-10-2021 hCG Quant <1 <5 IU/L [facility] Comment on above: Non-preg premeno <=5 Postmeno <=8 Male <=3 If HCG results do not concur with clinical observations, additional testing to confirm results is recommended. Elevated results not associated with may be found in patients with other diseases such as tumors of the germ cells (testis, ovaries, etc.), bladder, pancreas, stomach, lungs, and liver. [facility] , UrineOrdered By: Anthony Galloway on 10-14-2020 Beta HCG ( test) Ql (U) Negative NEGATIVE [employer] Phone: Comment on above: Specimens with hCG l evels near the threshold of the test (25 mIU/mL) may give a negative or indeterminate result. In such cases, another test should be performed with a new specimen in 48-72 hours. If early is suspected clinically in this setting, correlation with quantitative serum b-hCG level is suggested. [employer] has confirmed the use of plasma for this test. This has not been cleared or approved by the U.S. Food and Drug Administration. The FDA has determined that such clearance is not necessary. [employer] Work Phone: COVID-19Ordered By: Sabas siddiqi on 10-10-2020 SARS-CoV-2 (COVID-19) RNA SANDRA+probe Ql (Unsp spec) [employer] Phone: SARS-CoV-2 (COVID-19) RNA SANDRA+probe Ql (Unsp spec) Not detected Not Detected [employer] Phone: Comment on above: The specimen is NEGATIVE for SARS-CoV-2, the novel coronavirus associated with COVID-19. A negative result does not rule out COVID-19. [employer] SARS-CoV-2 for use on the [employer] is a real-time RT-PCR test intended [...] this assay. Fact sheet for Healthcare Providers: https://www.fda.gov/media/158718/download Fact sheet for Patients: https://www.fda.gov/media/466764/download METHODOLOGY: RT-PCR Source .NASOPHARYNGEAL SWAB [employer] Phone: [employer] Phone: Microscopic Urinalysison Amorphous, UA NOT REPORTED [facility] [place] Bacteria, UA 1+ Abnormal None [facility], [place] Casts UA NOT REPORTED /LPF [place], [place] Crystals, UA NOT REPORTED None /HPF [facility] [place] Epithelial Cells UA 5 TO 10 [place], [place] Interpretation and review of laboratory results Abnormal [facility], [place] Mucus, UA NOT REPORTED None [facility], [place] Other Observations UA NOT REPORTED NOT REQ. M [facility], [place] RBC (U) [#/Vol] 0 TO 2 [facility] [place] Renal Epithelial, UA NOT REPORTED 0 /HPF [place], [place] Trichomonas, UA NOT REPORTED None [place], [place] WBC, UA 0 TO 2 [place] Yeast, UA NOT REPORTED None [place], [place] - [place] , Urineon 0 Beta HCG ( test) Ql (U) Negative NEGATIVE [place] Comment on above: Specimens with hCG l evels near the threshold of the test (25 mIU/mL) may give a negative or indeterminate result. In such cases, another test should be performed with a new specimen in 48-72 hours. If early is suspected clinically in this setting, correlation with quantitative serum b-hCG level is suggested. [facility] has confirmed the use of plasma for this test. This has not been cleared or approved by the U.S. Food and Drug Administration. The FDA has determined that such clearance is not necessary. Urinalysis Reflex to Culture on 02-25-2020 Bilirubin Urine Negative NEGATIVE [place], [place] Color, UA YELLOW YELLOW [place], [place] Glucose, Ur Negative NEGATIVE [place] Ketones Ql (U) Negative NEGATIVE [place], [place] Leukocyte esterase Test strip Ql (U) Negative NEGATIVE [place] Nitrite, Urine Negative NEGATIVE [place], [place] pH, UA 6.5 [place] Protein (U) [Mass/Vol] Negative NEGATIVE [place], [place] Specific [place], UA 1.010 [place], [place] Turbidity UA CLEAR CLEAR [place] Urinalysis Comments NOT REPORTED [place], [place] Urine Hgb Negative NEGATIVE [place] Urobilinogen, Urine Normal Normal [place] Wet Prep, Genitalon 02-25-20 20 Direct Exam NO TRICHOMONAS SEEN [place] Direct Exam NO YEAST OBSERVED [place] Direct Exam CLUE CELLS SEEN Abnormal [place], [place] Interpretation and review of laboratory results Abnormal [place] Special Requests NOT REPORTED [place] Specimen Description .VAGINA [place], [place] Laboratory Studieson 016 Albumin [Mass/Vol] 3.4 g/dL 3.2-5.[address] [facility] Albumin/Globulin [Mass ratio] 1.5 {ratio} [facility] ALP [Catalytic activity/Vol] 50 U/L 32-92 [facility] ALT [Catalytic activity/Vol] 17 U/L 10-60 [facility] AST [Catalytic activity/Vol] 16 U/L 10-42 [facility] Basophils (Bld) [#/Vol] 0.0 10*3/uL 0.0-0.2 [facility] Basophils/100 WBC (Bld) 0.3 % F [facility] Bilirubin Ql (U) 0.2 mg/dL Low 0.3-1.2 [facility] Bilirubin.direct [Mass/Vol] mg/dL 0.0-0.4 [facility] Bilirubin.indirect (Body fld) [Mass/Vol] TNP [facility] Comment on above: Test not performed WHEN BILD IS <0.1,IBIL IS NOT ABLE TO BE CALCULATED. Calcium [Mass/Vol] 9.3 mg/dL 8.2-10.[address] [facility] Chloride [Moles/Vol] 106 mmol/L 95-114 [facility] Cholesterol [Mass/Vol] 9 mg/dL Fi [facility] Cholesterol [Mass/Vol] 101 mg/dL Low 140-200 [facility] Comment on above: CHOL less than 200 m g/dL Low risk CHOL 201-239 mg/dL Borderline risk CHOL 240 mg/dL and greater High risk Cholesterol in HDL [Mass/Vol] 38 mg/dL 35-85 [facility] Comment on above: HDL CHOL ATP-III CLA SSIFICATION Cardiovascular Risk HDL > or equal to 60 mg/dL Low HDL < 40 mg/dL High Cholesterol.total/Fanny sterol in HDL [Mass ratio] 2.7 {ratio} [facility] CO2 [Moles/Vol] 25.8 mmol/L 22.0-30.0 [facility] Creatinine [Mass/Vol] 0.62 mg/dL 0.44-1.03 [facility] Eosinophils (Bld) [#/Vol] 0.10 10*3/uL 0.0-0.45 [facility] Eosinophils/100 WBC (Bld) 1.5 % [facility] Erythrocyte distribution width (RBC) [Ratio] 13.2 % 11.9-15.3 [facility] Estimated GFR (Non- > 60 [facility] GFR/1.73 sq M.predicted MDRD (S/P/Bld) [Vol rate/Area] mL/min/{1.73_m2} [facility] Comment on above: GFR estimated refere nce range: According to KDOQI guidelines, <60 ml/min/1.73m2 is sufficient to diagnose a patient with chronic kidney disease. Globulin (S) [Mass/Vol] 2.2 g/dL F [facility] Glucose [Mass/Vol] 82 mg/dL 70-[address] [facility] Comment on above: ADA RECOMMENDED REFE RENCE RANGE Hematocrit (Bld) [Volume fraction] 32.1 % Low 34.0-46.4 [facility] Hemoglobin (Bld) [Mass/Vol] 11.0 g/dL Low 11.8-15.4 [facility] LDL Cholesterol, Calculated 54 mg/dL 0-100 [facility] Comment on above: LDL ATP III CLASSIFI CATION LDL less than 100 mg/dL Optimal LDL 100-129 mg/dL Near or above optimal LDL 130-159 mg/dL Borderline high LDL 160-189 mg/dL High LDL greater than 189 mg/dL Very high Lymphocytes (Bld) [#/Vol] 2.1 10*3/uL 1.00-4.8 [facility] Lymphocytes/100 WBC (Bld) 25.3 % [facility] MCH (RBC) [Entitic mass] 31.9 pg 24.7-34.3 [facility] MCHC (RBC) [Mass/Vol] 34.4 g/dL 32.0-35.0 [facility] MCV (RBC) [Entitic vol] 92.6 fL 80-100 [facility] Monocytes (Bld) [#/Vol] 0.7 10*3/uL 0.0-0.8 [facility] Monocytes/100 WBC (Bld) 8.3 % [facility] Neutrophils (Bld) [#/Vol] 5.3 10*3/uL 1.8-7.7 [facility] Neutrophils/100 WBC (Bld) 64.6 % [facility] Platelet mean volume (Bld) [Entitic vol] 9.5 fL 6.3-10.7 [facility] Platelets (Bld) [#/Vol] 135 10*3/uL Low 150-450 [facility] Potassium [Moles/Vol] 4.3 mmol/L 3.5-5.1 [facility] Protein [Mass/Vol] 5.6 g/dL Low 6.1-7.[address] [facility] RBC (Bld) [#/Vol] 3.46 10*6/uL Low 3.60-5.00 [facility] Sodium [Moles/Vol] 138 mmol/L 136-[address] [facility] Triglyceride [Mass/Vol] 47 mg/dL 35-149 [facility] Comment on above: TRIG ATP III CLASSIF ICATION TRIG less than 150 mg/dL Normal TRIG 150-199 mg/dL Borderline high TRIG 200-500 mg/dL High TRIG greater than 500 mg/dL Very high Standard traceable to the Center for Disease Conrtrol and Prevention (CDC) test method. Troponin I.cardiac [Mass/Vol] 0.02 ng/mL 0-0.02 [facility] Comment on above: [facility] [place] Cut off value > or equal to 0.03 ng/mL in conjunction with clinical conditions of myocardial infarction. ([email or web address].org/[email or web address]) TSH Qn 1.89 uIU/mL 0.340-5.600 [facility] Urea nitrogen [Mass/Vol] 7 mg/dL Low 9-23 [facility] WBC (Bld) [#/Vol] 8.2 10*3/uL 3.8-11.[address] [facility] Amorphous sediment LM Ql (Urine sed) 2+ [facility] Comment on above: PHOSPHATES Amphetamines Ql (U) Negative [facility] Appearance (U) Hazy Abnormal [facility] Bacteria LM.HPF (Urine sed) [#/Area] Rare [facility] Benzodiazepines Ql (U) [facility] Bilirubin Ql (U) Negative [facility] Cocaine Ql (U) Negative [facility] Color (U) Light-yellow [facility] Epithelial cells.squamous LM.HPF (Urine sed) [#/Area] 3-4 /hpf [facility] Glucose (U) [Mass/Vol] Normal mg/dL [facility] Ketones Ql (U) Negative [facility] Leukocyte esterase Test strip Ql (U) Negative [facility] Nitrite Ql (U) Negative [facility] Opiates Ql (U) Negative [facility] pH (U) 7.0 [pH] 5.0-9.0 [facility] Phencyclidine Ql (U) Negative [facility] Protein Ql (U) Negative [facility] RBC (U) [#/Vol] Rare /hpf [facility] Specific gravity (U) [Rel density] 1.010 1.001-1.030 [facility] Urine Barbiturates Screen Positive [facility] Urine Collection Type Type [facility] Comment on above: VOIDED Urine Drug Screen Comment See comment [facility] Comment on above: THESE ARE UNCONFIRME D RESULTS AND SHOULD NOT BE USED FOR LEGAL PURPOSES. DRUG CUT-OFF CONCENTRATION: AMPH 1000 ng/mL SANCHEZ 200 ng/mL RENZO 200 ng/mL COCM 300 ng/mL OP 300 ng/mL PCP 25 ng/mL THC 20 ng/mL Urine Marijuana (THC) Screen Positive [facility] Urine Occult Blood Negative [facility] Urobilinogen Qn (U) Normal mg/dL [facility] WBC (U) [#/Vol] Rare /hpf [facility] Laboratory Studieson 02-19- 016 CK [Catalytic activity/Vol] 51 U/L 22-269 [facility] CK.MB [Mass/Vol] 0.8 ng/mL 0.6-6.3 [facility] Creatine Kinase MB Relative Index 1.5 0.00-2.50 [facility] Vital Signs Date Time Vital Sign Value Performing Clinician Facility 09-12-2023 17:45-0400 Body height 170.2 cm Brenda Stephen APRN - [facility] Work Phone: [employer] 09-12-2023 17:45-0400 Body mass index (BMI) [Ratio] 28.82 kg/m2 Brenda Stephen PAPER CONSERVATOR - CNM Work Phone: [facility] [employer] 09-12-2023 17:45-0400 Body temperature 98.29 [degF] Brenda Stephen PAPER CONSERVATOR - CNM Work Phone: [employer] 09-12-2023 17:45-0400 Body weight 83.46 kg Brenda Stephen PAPER CONSERVATOR - CNM Work Phone: [employer] 09-12-2023 17:45-0400 Diastolic blood pressure 60 mm[Hg] Brenda Stephen PAPER CONSERVATOR - CNM Work Phone: [employer] 09-12-2023 17:45-0400 Heart rate 75 /min Brenda Stephen PAPER CONSERVATOR - CNM Work Phone: [facility] [employer] 09-12-2023 17:45-0400 Respiratory rate 16 /min Brenda Stephen PAPER CONSERVATOR - CNM Work Phone: [employer] 09-12-2023 17:45-0400 SaO2% (BldA) [Mass fraction] 98 % Brenda Stephen PAPER CONSERVATOR - CNM Work Phone: [employer] 09-12-2023 17:45-0400 Systolic blood pressure 110 mm[Hg] Brenda Stephen PAPER CONSERVATOR - CNM Work Phone: [employer] 08-24-2023 20:05-0400 Body temperature 98.1 [degF] Jagdeep D'Abreau DO Work Phone: [employer] 08-24-2023 20:05-0400 Diastolic blood pressure 63 mm[Hg] Jagdeep D'Abreau DO Work Phone: [employer] 08-24-2023 20:05-0400 Heart rate 95 /min Jagdeep D'Abreau DO Work Phone: [employer] 08-24-2023 20:05-0400 Respiratory rate 16 /min Jagdeep Callahaneau DO Work Phone: [employer] 08-24-2023 20:05-0400 SaO2% (BldA) [Mass fraction] 98 % Jagdeep Lozoyau DO Work Phone: [employer] 08-24-2023 20:05-0400 Systolic blood pressure 131 mm[Hg] Jagdeep Callahaneau DO Work Phone: [employer] 08-03-2022 06:56-0400 Body temperature 99 [degF] Samara Paulino MD Work Phone: [employer] 08-03-2022 06:56-0400 Diastolic blood pressure 75 mm[Hg] Samara Paulino MD Work Phone: [employer] 08-03-2022 06:56-0400 Heart rate 129 /min Samara Paulino MD Work Phone: [employer] 08-03-2022 06:56-0400 Respiratory rate 22 /min Samara Paulino MD Work Phone: [employer] 08-03-2022 06:56-0400 SaO2% (BldA) [Mass fraction] 100 % Samara Paulino MD Work Phone: [employer] 08-03-2022 06:56-0400 Systolic blood pressure 131 mm[Hg] Samara Paulino MD Work Phone: [employer] 07-27-2022 18:47-0400 Body height 175.26 cm Mariposa Duncan CNP Work Phone: [facility] Work Phone: 07-27-2022 18:47-0400 Body mass index (BMI) [Ratio] 22 kg/m2 Mariposa Duncan CNP Work Phone: [facility] Work Phone: 07-27-2022 18:47-0400 Body surface area Derived from formula 1.8 m2 Mariposa Duncan CNP Work Phone: [facility] Work Phone: 07-27-2022 18:47-0400 Body temperature 96.3 [degF] Mariposa Duncan CNP Work Phone: [facility] Work Phone: 07-27-2022 18:47-0400 Body weight 67.72 kg Mariposa Duncan CNP Work Phone: [facility] Work Phone: 07-27-2022 18:47-0400 Diastolic blood pressure 63 mm[Hg] Mariposa Duncan CNP Work Phone: [facility] Work Phone: 07-27-2022 18:47-0400 Heart rate 68 /min Mariposa Duncan CNP Work Phone: [facility] Work Phone: 07-27-2022 18:47-0400 SaO2% (BldA) [Mass fraction] 97 % Mariposa Duncan CNP Work Phone: [facility] Work Phone: 07-27-2022 18:47-0400 Systolic blood pressure 117 mm[Hg] Mariposa Duncan CNP Work Phone: [facility] Work Phone: 04-24-2022 13:05-0500 Diastolic blood pressure 60 mm[Hg] Kia Sharma APRN - [employer] Work Phone: [facility] [employer] 04-24-2022 13:05-0500 Systolic blood pressure 122 mm[Hg] Kia Sharma APRN - [employer] Work Phone: [facility] [employer] 04-24-2022 10:44-0500 Body mass index (BMI) [Ratio] 24.78 kg/m2 Kia Leo [employer] Work Phone: [employer] 04-24-2022 10:44-0500 Body temperature 98.4 [degF] Kia Leo [employer] Work Phone: [employer] 04-24-2022 10:44-0500 Body weight 73.94 kg Kia Leo [employer] Work Phone: [facility] [employer] 04-24-2022 10:44-0500 Heart rate 79 /min Kia Leo [employer] Work Phone: [employer] 04-24-2022 10:44-0500 Respiratory rate 20 /min Kia Leo [employer] Work Phone: [facility] [employer] 04-24-2022 10:44-0500 SaO2% (BldA) [Mass fraction] 100 % Kia Leo [employer] Work Phone: [employer] 03-04-2022 14:15-0500 Diastolic blood pressure 78 mm[Hg] Geoff Miller MD Work Phone: [employer] 03-04-2022 14:15-0500 Heart rate 74 /min Geoff Miller MD Work Phone: [employer] 03-04-2022 14:15-0500 Respiratory rate 16 /min Geoff Miller MD Work Phone: [facility] [employer] 03-04-2022 14:15-0500 SaO2% (BldA) [Mass fraction] 100 % Geoff Miller MD Work Phone: [employer] 03-04-2022 14:15-0500 Systolic blood pressure 131 mm[Hg] Geoff Miller MD Work Phone: [facility] [employer] 03-04-2022 13:30-0500 Body temperature 97.2 [degF] Geoff Miller MD Work Phone: [facility] [employer] 03-04-2022 11:15-0500 Body height 172.7 cm Geoff Miller MD Work Phone: [facility] [employer] 03-04-2022 11:15-0500 Body mass index (BMI) [Ratio] 24.94 kg/m2 Geoff Miller MD Work Phone: [facility] [employer] 03-04-2022 11:15-0500 Body weight 74.39 kg Geoff Miller MD Work Phone: [facility] [employer] 03-01-2022 08:00-0500 Body mass index (BMI) [Ratio] 24.94 kg/m2 Nicholas Denton MD Work Phone: [facility] [employer] 03-01-2022 08:00-0500 Body temperature 98.2 [degF] Nicholas Denton MD Work Phone: [facility] [employer] 03-01-2022 08:00-0500 Body weight 74.39 kg Nicholas Denton MD Work Phone: [facility] [employer] 03-01-2022 08:00-0500 Diastolic blood pressure 61 mm[Hg] Nicholas Denton MD Work Phone: [facility] [employer] 03-01-2022 08:00-0500 Heart rate 89 /min Nicholas Denton MD Work Phone: [facility] [employer] 03-01-2022 08:00-0500 Respiratory rate 20 /min Nicholas Denton MD Work Phone: [facility] [employer] 03-01-2022 08:00-0500 SaO2% (BldA) [Mass fraction] 99 % Nicholas Denton MD Work Phone: [facility] [employer] 03-01-2022 08:00-0500 Systolic blood pressure 138 mm[Hg] Nicholas Denton MD Work Phone: [facility] [employer] 10-29-2021 07:30-0400 Body temperature 96.6 [degF] PHYSICIAN NO [facility] 10-29-2021 07:30-0400 Diastolic blood pressure 70 mm[Hg] PHYSICIAN NO [facility] 10-29-2021 07:30-0400 Heart rate 84 /min PHYSICIAN [facility] 10-29-2021 07:30-0400 Respiratory rate 18 /min PHYSICIAN NO [facility] 10-29-2021 07:30-0400 SaO2% (BldA) [Mass fraction] 97 % PHYSICIAN NO [facility] 10-29-2021 07:30-0400 Systolic blood pressure 110 mm[Hg] PHYSICIAN [facility] 10-27-2021 14:15-0400 Body height 172.72 cm PHYSICIAN [facility] 10-26-2021 20:08-0400 Body weight 58.96 kg PHYSICIAN [facility] 08-17-2021 16:45-0400 Body height 175.26 cm Kia Sharma [facility] Work Phone: [facility] Work Phone: 08-17-2021 16:45-0400 Body mass index (BMI) [Ratio] 20 kg/m2 Kia Sharma [facility] Work Phone: [facility] Work Phone: 08-17-2021 16:45-0400 Body surface area Derived from formula 1.75 m2 Kia Sharma [facility] Work Phone: [facility] Work Phone: 08-17-2021 16:45-0400 Body surface area Derived from formula 1.7 m2 Mariposa Duncan [facility] Work Phone: [facility] Work Phone: 08-17-2021 16:45-0400 Body temperature 96.7 [degF] Kia Sharma [facility] Work Phone: [facility] Work Phone: 08-17-2021 16:45-0400 Body weight 61.33 kg Kia Sharma CNP Work Phone: [facility] Work Phone: 08-17-2021 16:45-0400 Diastolic blood pressure 64 mm[Hg] Kia Sharma CNP Work Phone: [facility] Work Phone: 08-17-2021 16:45-0400 Heart rate 67 /min Kia Sharma CNP Work Phone: [facility] Work Phone: 08-17-2021 16:45-0400 SaO2% (BldA) [Mass fraction] 99 % Kia Sharma CNP Work Phone: [facility] Work Phone: 08-17-2021 16:45-0400 Systolic blood pressure 110 mm[Hg] Kia Sharma CNP Work Phone: [facility] Work Phone: 07-15-2021 15:57-0400 Body height 175.26 cm Kia Sharma CNP Work Phone: [facility] Work Phone: 07-15-2021 15:57-0400 Body mass index (BMI) [Ratio] 19.8 kg/m2 Kia Sharma CNP Work Phone: [facility] Work Phone: 07-15-2021 15:57-0400 Body surface area Derived from formula 1.74 m2 Kia Sharma CNP Work Phone: [facility] Work Phone: 07-15-2021 15:57-0400 Body temperature 98.1 [degF] Kia Sharma CNP Work Phone: [facility] Work Phone: 07-15-2021 15:57-0400 Body weight 60.78 kg Kia hSarma CNP Work Phone: [facility] Work Phone: 07-15-2021 15:57-0400 Diastolic blood pressure 62 mm[Hg] Kia Sharma CNP Work Phone: [facility] Work Phone: 07-15-2021 15:57-0400 Heart rate 68 /min Kia Sharma CNP Work Phone: [facility] Work Phone: 07-15-2021 15:57-0400 Heart Rate Rhythm 1 1 Kia Sharma CNP Work Phone: [facility] Work Phone: 07-15-2021 15:57-0400 SaO2% (BldA) [Mass fraction] 98 % Kia Sharma CNP Work Phone: [facility] Work Phone: 07-15-2021 15:57-0400 Systolic blood pressure 108 mm[Hg] Kia Sharma CNP Work Phone: [facility] Work Phone: 07-01-2021 17:32-0400 Body height 175.26 cm Kia Sharma CNP Work Phone: [facility] Work Phone: 07-01-2021 17:32-0400 Body mass index (BMI) [Ratio] 20.3 kg/m2 Kia Sharma CNP Work Phone: [facility] Work Phone: 07-01-2021 17:32-0400 Body surface area Derived from formula 1.76 m2 Kia Sharma CNP Work Phone: [facility] Work Phone: 07-01-2021 17:32-0400 Body temperature 97.5 [degF] Kia Sharma CNP Work Phone: [facility] Work Phone: 07-01-2021 17:32-0400 Body weight 62.32 kg Kia Sharma CNP Work Phone: [facility] Work Phone: 07-01-2021 17:32-0400 Diastolic blood pressure 58 mm[Hg] Kia Sharma CNP Work Phone: [facility] Work Phone: 07-01-2021 17:32-0400 Heart rate 775 /min Kia Sharma CNP Work Phone: [facility] Work Phone: 07-01-2021 17:32-0400 Heart Rate Rhythm 1 1 Kia Sharma CNP Work Phone: [facility] Work Phone: 07-01-2021 17:32-0400 SaO2% (BldA) [Mass fraction] 97 % Kia Sharma CNP Work Phone: [facility] Work Phone: 07-01-2021 17:32-0400 Systolic blood pressure 116 mm[Hg] Kia Sharma CNP Work Phone: [facility] Work Phone: 05-28-2021 18:41-0400 Body height 175.26 cm Kia Sharma CNP Work Phone: [facility] Work Phone: 05-28-2021 18:41-0400 Body mass index (BMI) [Ratio] 19.6 kg/m2 Kia Sharma CNP Work Phone: [facility] Work Phone: 05-28-2021 18:41-0400 Body surface area Derived from formula 1.74 m2 Kia Sharma CNP Work Phone: [facility] Work Phone: 05-28-2021 18:41-0400 Body temperature 97.7 [degF] Kia Sharma CNP Work Phone: [facility] Work Phone: 05-28-2021 18:41-0400 Body weight 60.33 kg Kia Sharma CNP Work Phone: [facility] Work Phone: 05-28-2021 18:41-0400 Diastolic blood pressure 76 mm[Hg] Kia Sharma CNP Work Phone: [facility] Work Phone: 05-28-2021 18:41-0400 Heart rate 83 /min Kia Sharma CNP Work Phone: [facility] Work Phone: 05-28-2021 18:41-0400 SaO2% (BldA) [Mass fraction] 98 % Kia Sharma CNP Work Phone: [facility] Work Phone: 05-28-2021 18:41-0400 Systolic blood pressure 122 mm[Hg] Kia Sharma CNP Work Phone: [facility] Work Phone: 10-14-2020 13:00-0400 Diastolic blood pressure 68 mm[Hg] Anthony Galloway MD Work Phone: [employer] Work Phone: 10-14-2020 13:00-0400 Heart rate 60 /min Anthony Galloway MD Work Phone: [employer] Work Phone: 10-14-2020 13:00-0400 Respiratory rate 16 /min Anthony Galloway MD Work Phone: [employer] Work Phone: 10-14-2020 13:00-0400 SaO2% (BldA) [Mass fraction] 99 % Anthony Galloway MD Work Phone: [employer] Work Phone: 10-14-2020 13:00-0400 Systolic blood pressure 114 mm[Hg] Anthony Galloway MD Work Phone: [employer] Work Phone: 10-14-2020 12:25-0400 Body temperature 97.39 [degF] Anthony Galloway MD Work Phone: [employer] Work Phone: 10-14-2020 09:35-0400 Body height 172.7 cm Anthony Galloway MD Work Phone: [employer] Work Phone: 10-14-2020 09:35-0400 Body mass index (BMI) [Ratio] 20.13 kg/m2 Anthony Galloway MD Work Phone: [employer] Work Phone: 10-14-2020 09:35-0400 Body weight 60.06 kg Anthony Galloway MD Work Phone: [employer] Work Phone: 05-27-2020 22:19-0400 Body Temperature 97.5 [degF] [employer] Work Phone: 05-27-2020 22:19-0400 BP Diastolic 79 mm[Hg] [employer] Work Phone: 05-27-2020 22:19-0400 BP Systolic 133 mm[Hg] [employer] Work Phone: 05-27-2020 22:19-0400 Pulse (Heart Rate) 94 /min [employer] Work Phone: 05-27-2020 22:19-0400 Pulse Oximetry 98 % Sidradha Norris [facility] Work Phone: 05-27-2020 22:19-0400 Respiratory Rate 16 /min Sid [facility] Work Phone: 04-03-2020 16:21-0500 BMI (Body Mass Index) 21.9 kg/m2 [facility] Work Phone: 04-03-2020 16:21-0500 Body Temperature 97.9 [degF] [facility] Work Phone: 04-03-2020 16:21-0500 Body weight 67.13 kg [facility] Work Phone: 04-03-2020 16:21-0500 BP Diastolic 82 mm[Hg] [facility] Work Phone: 04-03-2020 16:21-0500 BP Systolic 138 mm[Hg] [facility] Work Phone: 04-03-2020 16:21-0500 BSA (Body Surface Area) 1.82 m2 [facility] Work Phone: 04-03-2020 16:21-0500 Height 175.26 cm [facility] Work Phone: 04-03-2020 16:21-0500 Pulse (Heart Rate) 77 /min [facility] Work Phone: 04-03-2020 16:21-0500 Pulse Oximetry 96 % [facility] Work Phone: 04-03-2020 16:21-0500 Respiratory Rate 18 /min [facility] Work Phone: 04-03-2020 16:21-0500 SaO2% (BldA) [Mass fraction] 96 % Kia Sharma [facility] Work Phone: [facility] Work Phone: 03-20-2020 11:57-0500 BMI (Body Mass Index) 21.4 kg/m2 Kia Sharma [facility] Work Phone: 03-20-2020 11:57-0500 Body weight 65.77 kg Kiajace Sharma [facility] Work Phone: 03-20-2020 11:57-0500 BSA (Body Surface Area) 1.8 m2 Kiajace Sharma [facility] Work Phone: 03-20-2020 11:57-0500 Height 175.26 cm [facility] Work Phone: 02-25-2020 21:28-0500 BMI (Body Mass Index) 23.22 kg/m2 [place] 02-25-2020 21:28-0500 Body Temperature 98.2 [degF] [place] 02-25-2020 21:28-0500 Body weight 70.31 kg [place] 02-25-2020 21:28-0500 BP Diastolic 76 mm[Hg] [place] 02-25-2020 21:28-0500 BP Systolic 144 mm[Hg] [place] 02-25-2020 21:28-0500 Height 174 cm [place] 02-25-2020 21:28-0500 Pulse (Heart Rate) 73 /min [place] 02-25-2020 21:28-0500 Pulse Oximetry 100 % [place] 02-25-2020 21:28-0500 Respiratory Rate 16 /min [place] 02-06-2020 17:44-0500 Respiratory Rate 16 /min [facility] [place], [place] 02-06-2020 17:19-0500 BMI (Body Mass Index) 23.57 kg/m2 [facility] [place] 02-06-2020 17:19-0500 Body Temperature 99.61 [degF] [facility] [place] 02-06-2020 17:19-0500 Body weight 70.31 kg [facility], [place] 02-06-2020 17:19-0500 BP Diastolic 60 mm[Hg] [facility] [place] 02-06-2020 17:19-0500 BP Systolic 120 mm[Hg] [facility] [place] 02-06-2020 17:19-0500 Height 172.7 cm [facility], [place] 02-06-2020 17:19-0500 Pulse (Heart Rate) 81 /min [facility] 02-06-2020 17:19-0500 Pulse Oximetry 98 % [facility] 12-24-2019 12:27-0400 BMI (Body Mass Index) 23.42 kg/m2 [facility] [place] 12-24-2019 12:27-0400 Body Temperature 97.9 [degF] [facility] [place] 12-24-2019 12:27-0400 Body weight 69.85 kg [facility] 12-24-2019 12:27-0400 BP Diastolic 64 mm[Hg] [facility] [place] 12-24-2019 12:27-0400 BP Systolic 122 mm[Hg] [facility] [place] 12-24-2019 12:27-0400 Pulse (Heart Rate) 68 /min [facility] [place] 12-24-2019 12:27-0400 Pulse Oximetry 99 % [facility] [place] 12-24-2019 12:27-0400 Respiratory Rate 16 /min [facility], [place] NEGATED: Highlighted row BMI (Body Mass Index) [facility] NEGATED: Highlighted row BMI (Body Mass Index) [facility] NEGATED: Highlighted row BMI (Body Mass Index) [facility] NEGATED: Highlighted row Body Temperature [facility] NEGATED: Highlighted row Body Temperature [facility] NEGATED: Highlighted row Body Temperature [facility] NEGATED: Highlighted row Body weight [facility] NEGATED: Highlighted row Body weight [facility] NEGATED: Highlighted row Body weight [facility] NEGATED: Highlighted row BP Diastolic [facility] NEGATED: Highlighted row BP Diastolic [facility] NEGATED: Highlighted row BP Diastolic [facility] NEGATED: Highlighted row BP Systolic [facility] NEGATED: Highlighted row BP Systolic [facility] NEGATED: Highlighted row BP Systolic [facility] NEGATED: Highlighted row Height [facility] NEGATED: Highlighted row Height [facility] NEGATED: Highlighted row Height [facility] NEGATED: Highlighted row Pulse (Heart Rate) [facility] NEGATED: Highlighted row Pulse (Heart Rate) [facility] NEGATED: Highlighted row Pulse (Heart Rate) [facility] NEGATED: Highlighted row Pulse Oximetry [facility] NEGATED: Highlighted row Pulse Oximetry [facility] NEGATED: Highlighted row Pulse Oximetry [facility] NEGATED: Highlighted row Respiratory Rate [facility] NEGATED: Highlighted row Respiratory Rate [facility] NEGATED: Highlighted row Respiratory Rate [facility] Encounters Encounter Date Encounter Type Care Provider Facility Start: 10-23-2023 End: 10-23-2023 ambulatory YURIY DALJIT Not Available Start: 10-16-2023 End: 10-16-2023 ambulatory GENESIS OJEDA Not Available Start: 10-02-2023 End: 10-02-2023 ambulatory YURIY DALJIT Not Available Start: 09-29-2023 End: 09-29[facility]: 09-18-[facility]23 End: 09-18-2023 ambulatory GNEESIS RUSTY Not Available Start: 09-12-2023 End: 09-12-2023 ambulatory BRENDA Duarte [facility] Start: 09-12-2023 End: 09-12-2023 Subsequent hospital visit by physician Brenda Gerald CardosoHailee PAPER CONSERVATOR - CNM Work Phone: [facility] Start: 09-04-2023 End: 09-04-2023 ambulatory VIPIN MICHAEL [facility] Start: 09-04-2023 End: 09-04-2023 ambulatory YURIY DALJIT Not Available Start: 09-02-2023 End: 09-03-2023 [facility] Start: 08-24-2023 End: 08-24-2023 ambulatory [facility] Start: 08-24-2023 End: 08-24-2023 Subsequent hospital visit by physician Jagdeep [facility] Work Phone: [facility] Start: 08-03-2023 End: 08-03-2023 ambulatory GENESIS RUSTY Not Available Start: 07-06-2023 End: 07-06-2023 ambulatory YURIY DALJIT Not Available Start: 06-30-2023 End: 06-30-2023 Emergency department patient visit KIAJace SHARMA [facility] Start: 06-20-2023 End: 06-20-2023 ambulatory YURIY DALJIT Not Available Start: 05-23-2023 End: 05-23-2023 ambulatory YURIY DALJIT Not Available Start: 05-18-2023 End: 05-18-2023 Emergency department patient visit KIAJace SHARMA [facility] Start: 05-01-2023 End: 05-01-2023 ambulatory YURIY GREENE [facility] Start: 05-01-2023 End: 05-01-2023 Subsequent hospital visit by physician Kia Sharma PAPER CONSERVATOR - CELL CLEANER Work Phone: [facility] Start: 04-27-2023 End: 04-27-2023 ambulatory YURIY DALJIT Not Available Start: 08-03-2022 End: 08-03-2022 Emergency department patient visit Samara Paulino MD Work Phone: [facility] ED Comment on above: Flank pain (Primary Dx); Urinary tract infection without hematuria, site unspecified Start: 07-27-2022 End: 07-27-2022 FQHC visit, estab pt Mariposa Duncan CELL CLEANER Work Phone: [facility] Work Phone: Start: 06-03-2022 End: 06-05-2022 Subsequent hospital visit by physician Kulwinder Das Radiologist [facility] Ultrasound Comment on above: Abscess of female br east Start: 04-24-2022 End: 04-24-2022 Emergency department patient visit Kia Sharma APRN - CELL CLEANER Work Phone: [facility] ED Comment on above: Nausea vomiting and diarrhea (Primary Dx) Start: 03-15-2022 End: 03-15-[address] YURIY SABILLON Facility: Start: 03-04-2022 End: 03-04-2022 Subsequent hospital visit by physician Geoff Miller MD Work Phone: [facility] OR Comment on above: Abscess of right lynette ast (Primary Dx) Start: 03-01-2022 End: 03-01-2022 Emergency department patient visit Nicholas Denton MD Work Phone: [facility] ED Comment on above: Cellulitis of right breast (Primary Dx) Start: 10-26-2021 End: 10-29-2021 Evaluation and management of inpatient PHYSICIAN NO FAMILY Facility:[facility] Start: 10-26-2021 End: 10-29-2021 Evaluation and management of inpatient PHYSICIAN NO FAMILY [facility] [place] [address] Start: 08-17-2021 End: 08-17-2021 FQHC visit, estab pt Halima Argueta [facility] Work Phone: [facility] Work Phone: Start: 08-17-2021 End: 08-17-2021 FQHC visit, estab pt Kia Sharma CELL CLEANER Work Phone: [facility] Work Phone: Start: 07-15-2021 End: 07-15-2021 FQHC visit, estab pt Halimaashok Argueta [facility] Work Phone: [facility] Work Phone: Start: 07-15-2021 End: 07-15-2021 FQHC visit, estab pt Kia Edith CELL CLEANER Work Phone: [facility] Work Phone: Start: 07-01-2021 End: 07-01-2021 FQ visit, estab pt Kia Sharma CELL CLEANER Work Phone: [facility] Work Phone: Start: 05-29-2021 End: 05-29-2021 ambulatory KIA SHARMA [facility] Start: 05-28-2021 End: 05-28-2021 Subsequent hospital visit by physician AGNES CHEN [facility] Start: 05-28-2021 End: 05-28-2021 FQHC visit, estab pt Kia Sharma CELL CLEANER Work Phone: [facility] Work Phone: Start: 03-25-2021 End: 03-25-2021 Subsequent hospital visit by physician [facility] Comment on above: Vaginal discharge Start: 03-10-2021 End: 03-10-2021 Subsequent hospital visit by physician [facility] Comment on above: Irregular menstrual cycle Start: 10-14-2020 End: 10-14-2020 Subsequent hospital visit by physician Anthony Galloway MD Work Phone: [facility] OR Comment on above: 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) Start: 10-09-2020 End: 10-13-2020 Patient encounter status [facility] Schedule [facility] Start: 10-09-2020 End: 10-13-2020 Subsequent hospital visit by physician Kulwinder Covid19 Pat Screening Schedule [facility] PRE ADMIT Comment on above: Preop testing Start: 09-25-2020 End: 09-25-2020 Patient encounter status [facility] Schedule [facility] Start: 09-25-2020 End: 09-25-2020 Subsequent hospital visit by physician [facility] Covid19 Pat Screening Schedule [facility] PRE ADMIT Comment on above: Preop testing (Prima ry Dx) Start: 08-19-2020 End: 08-19-2020 Subsequent hospital visit by physician [facility] Laboratory Comment on above: 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 Start: 05-27-2020 End: 05-27-2020 Emergency department patient visit Sid Norris Work Phone: [facility] ED Comment on above: Dental infection (Pr imary Dx) Start: 04-03-2020 End: 04-03-2020 Established patient Kia Sahrma Work Phone: [facility] Work Phone: Start: 04-03-2020 End: 04-03-2020 General Kia Sharma [facility] Work Phone: [facility] Work Phone: Start: 04-03-2020 End: 04-03-2020 General Halima Argueta [facility] Work Phone: [facility] Work Phone: Start: 04-02-2020 End: 04-02-2020 [facility] Comment on above: Women's annual routi ne gynecological examination Start: 03-20-2020 End: 03-20-2020 General Halima Argueta Work Phone: [facility] Work Phone: Start: 03-20-2020 End: 03-20-2020 Telemedicine consultation with patient Kia Sharma Work Phone: [facility] Work Phone: Start: 02-25-2020 End: 02-25-2020 Emergency department patient visit Sid Norris Work Phone: [facility] ED Comment on above: Bacterial vaginosis (Primary Dx); Vaginal bleeding Start: 02-06-2020 End: 02-06-2020 Emergency department patient visit [facility] ED Comment on above: Dental abscess (Prim rachele Dx); Dental caries Start: 12-24-2019 End: 12-24-2019 Emergency department patient visit [facility] ED Comment on above: Dental infection (Pr imary Dx) Start: 02-13-2018 End: 02-15-2018 Evaluation and management of inpatient FEI LOO [facility] Start: 02-20-2016 End: 02-23-2016 Evaluation and management of inpatient [facility] Start: 05-12-2015 End: 05-15-2015 Evaluation and management of inpatient [facility] Start: 02-11-2014 End: 02-14-2014 Evaluation and management of inpatient [facility] Start: 04-28-2007 End: 05-28-2007 Discharged Recurring [facility] Start: 02-27-2007 End: 03-29-2007 Discharged Recurring [facility] Start: 01-27-2007 End: 02-26-2007 Discharged Recurring [facility] Start: 11-27-2006 End: 12-27-2006 [facility] Start: 09-27-2006 End: 10-27-2006 Discharged Recurring [facility] Start: 08-27-2006 End: 09-26-2006 Discharged Recurring [facility] Start: 07-28-2006 End: 09-26-2006 Discharged Recurring [facility] Start: 06-27-2006 End: 07-27-2006 Discharged Recurring [facility] Start: 05-28-2006 End: 06-26-2006 [facility] Start: 04-27-2006 End: 05-27-2006 [facility] Start: 03-30-2006 End: 04-26-2006 Discharged Recurring [facility] Start: 02-27-2006 End: 03-29-2006 Discharged Recurring [facility] Start: 01-27-2006 End: 02-26-2006 Discharged Recurring [facility] Start: 12-28-2005 End: 01-26-2006 Discharged Recurring [facility] Start: 11-27-2005 End: 12-27-2005 Discharged Recurring [facility] Start: 10-28-2005 End: 11-26-2005 Discharged Recurring [facility] Start: 09-27-2005 End: 11-26-2005 Discharged Recurring [facility] Start: 09-27-2005 End: 10-27-2005 Discharged Recurring [facility] Start: 08-27-2005 End: 09-26-2005 [facility] Start: 06-27-2005 End: 07-27-2005 Discharged Recurring [facility] Start: 04-27-2005 End: 05-27-2005 [facility] Start: 03-30-2005 End: 04-26-2005 [facility] Start: 02-27-2005 End: 03-29-2005 [facility] Start: 01-27-2005 End: 02-26-2005 [facility] Start: 12-28-2004 Registered Recurring [facility] Start: 11-27-2004 End: 12-27-2004 Discharged Recurring [facility] Start: 11-27-2004 End: 12-27-2004 Discharged Recurring [facility] Start: 11-27-2004 Registered Recurring [facility] Start: 10-28-2004 End: 11-26-2004 Discharged Recurring [facility] Start: 10-28-2004 End: 11-26-2004 Discharged Recurring [facility] Start: 09-27-2004 End: 10-27-2004 Discharged Recurring [facility] Start: 09-27-2004 End: 10-27-2004 [facility] Start: 09-02-2004 End: 09-26-2004 [facility] Start: 09-02-2004 End: 09-26-2004 [facility] Start: 05-17-2000 End: 05-27-2000 Discharged Recurring Bryce Frederic [facility] Procedures Date Procedure Procedure Detail Performing Clinician Start: 09-12-2023 Urnls dip stick/tabl et rgnt auto w/o microscopy Brenda Stephen PAPER CONSERVATOR - CNM Work Phone: Start: 09-02-2023 H/O: section History of delivery affecting Brenda Stephen PAPER CONSERVATOR - CNM Work Phone: Start: 08-24-2023 Urinalysis microscop ic only Jagdeep D'Abreau DO Work Phone: Start: 08-24-2023 Urnls dip [...] blood pressure <130 mm hg Mariposa Duncan CELL CLEANER Work Phone: Start: 07-27-2022 Urine test visual color cmprsn meths Mariposa Duncan CELL CLEANER Work Phone: Start: 06-03-2022 Diagnostic mammograp hy [...] test visual color cmprsn meths Peterson Benito PAPER CONSERVATOR - CELL CLEANER Work Phone: Start: 08-17-2021 Most recent diastoli c blood pressure < 80 mm hg Kia Sharma CELL CLEANER Work Phone: Start: 08-17-2021 Most recent systolic blood pressure <130 mm hg Kia Sharma CELL CLEANER Work Phone: Start: 08-17-2021 Psychotherapy w/hussein ent 30 minutes [facility]imachuck [facility] Work Phone: Start: 07-15-2021 Most recent diastoli c blood pressure < 80 mm hg Kia Sharma CELL CLEANER Work Phone: Start: 07-15-2021 Most recent systolic blood pressure <130 mm hg Kia Sharma CELL CLEANER Work Phone: Start: 07-15-2021 Psychotherapy w/hussein ent 30 minutes Halima Argueta [facility] Work Phone: Start: 07-01-2021 Most recent diastoli c blood pressure < 80 mm hg Kia Sharma [facility] Work Phone: Start: 07-01-2021 Most recent systolic blood pressure <130 mm hg Kia Sharma CELL CLEANER Work Phone: Start: 05-28-2021 Antibody hiv-1&hiv-2 single result Kia Sharma CELL CLEANER Work Phone: Start: 05-28-2021 Most recent diastoli c blood pressure < 80 mm hg Kia Sharma [facility] Work Phone: Start: 05-28-2021 Most recent systolic blood pressure <130 mm hg Kia Sharma [facility] Work Phone: Start: 05-28-2021 Pt-focused hlth risk assmt score doc stnd instrm Kia Sharma [facility] Work Phone: Start: 05-28-2021 Viral screening Visit For: Scr eening Exam For Herpes Kia Sharma [facility] Work Phone: Start: 03-10-2021 End: 03-10-2021 Gonadotropin follicle stimulating hormone Anthony Galloway MD Work Phone: Start: 10-14-2020 Urine test visual color cmprsn meths Anthony Galloway MD Work Phone: Start: 10-09-2020 COVID-19 Sabas siddiqi MD Work Phone: Start: 04-02-2020 Microscopic observat ion [Identifier] in Cervix by Cyto stain Start: 03-20-2020 delivery only Kia Sharma Start: 03-20-2020 section Kia Sharam [facility] Work Phone: Start: 03-20-2020 Psychotherapy w/hussein ent 30 minutes Halima Argueta Work Phone: Start: 02-25-2020 Smr prim src wet boby nt nfct agt Sid A Jr Work Phone: Start: 02-25-2020 Urinalysis microscop ic only Sid A Jr Work Phone: Start: 02-25-2020 Urine test visual color cmprsn meths Sidradha Norris Work Phone: Start: 02-25-2020 Urnls dip stick/tabl et rgnt auto w/o microscopy Sid Norris Work Phone: Start: 02-15-2018 DISCHARGE PATIENT JUSTINE LOO Start: 02-13-2018 IP CONSULT TO HISTOR Y AND PHYSICAL FEI LOO Start: 02-13-2018 DIET GENERAL FEI AMIN AGRONOMY MANAGER Start: 02-13-2018 FULL CODE FEI AMIN AGRONOMY MANAGER Start: 02-13-2018 URINE DRUG SCREEN JUSTINE LOO Start: 02-13-2018 Urine test visual color cmprsn meths FEI AMINPTA Start: 02-13-2018 VITAL SIGNS FEI AMIN AGRONOMY MANAGER Start: 02-13-2018 PATIENT STATUS (DIRECT) FEI LOO SARS Antigen (LFIA) PHYSICIA N NO FAMILY Plan of Treatment Date Care Activity Detail Author Start: 2053 Respiratory Syncytia l Virus (RSV) or age 60 yrs+ (1 - 1-dose 60+ series) Respiratory Syncytial Virus (RSV) or age 60 yrs+ (1 - 1-dose 60+ series) [facility] Start: 03-21-2027 DTaP/Tdap/Td vaccine (2 - Td or Tdap) DTaP/Tdap/Td vaccine (2 - Td or Tdap) [facility] Start: 03-21-2027 DTaP/Tdap/Td vaccine (2 - Td) DTaP/Tdap/Td vaccine (2 - Td) [place] Start: 04-02-2025 Screening for malign ant neoplasm of cervix [facility] Start: 10-29-2023 Respiratory Syncytia l Virus (RSV) or age 60 yrs+ (1 - Risk 1-dose series) Respiratory Syncytial Virus (RSV) or age 60 yrs+ (1 - Risk 1-dose series) [facility] Start: 09-28-2023 Influenza vaccination B [facility] Start: 08-25-2023 Tdap Vaccine during Tdap Vaccine during [facility] Start: 04-02-2023 Screening for malign ant neoplasm of cervix [facility] Start: 09-27-2022 Influenza vaccination B [facility] Start: 08-25-2022 FQHC visit, estab pt Medical E stablished Patient [facility] Work Phone: Start: 07-27-2022 End: 07-27-2022 Patient education based on identified need [facility] Start: 07-27-2022 CBC W Auto Different ial panel - Blood [facility] Start: 04-25-2022 End: 04-25-2022 Patient encounter procedure 04/25/2022 Appointment Radiology Radiologist, [facility]trasound Start: 03-04-2022 End: 03-04-2022 Incision & drainage abscess simple/single BREAST INCISION AND DRAINAGE Abscess of right breast 03/04/2022 12:36 PM [facility] Start: 10-29-2021 [facility] Work Phone: Start: 10-28-2021 Influenza vaccination Flu vacc ine (Season Ended) [facility] Start: 10-26-2021 Referral to Senior Visual Designer [facility] Work Phone: Start: 10-26-2021 Hospital admission [facility] Work Phone: Start: 09-27-2021 Influenza vaccination Flu vaccine (# 1) [facility] Start: 09-16-2021 FQHC visit, estab pt Medical E stablished Patient [facility] Work Phone: Start: 08-17-2021 FQHC visit, estab pt Medical E stablished Patient [facility] Work Phone: Start: 08-17-2021 End: 08-17-2021 Patient education based on identified need [facility] Start: 07-15-2021 FQHC visit, estab pt Medical E stablished Patient [facility] Work Phone: Start: 07-15-2021 End: 07-15-2021 Patient education based on identified need [facility] Start: 07-01-2021 End: 07-01-2021 Patient education based on identified need [facility] Start: 05-28-2021 End: 05-28-2021 Patient education based on identified need [facility] Start: 04-14-2021 End: 04-14-2021 Patient encounter procedure 04/14/2021 Office Visit Obstetrics and Gynecology Anthony Galloway MD [address] [facility] [id number] [facility] OBST[facility]OLOG[facility] Part of [facility] Start: 03-05-2021 FQHC visit, estab pt Medical E stablished Patient [facility] Work Phone: Start: 10-28-2020 Influenza vaccination [facility] Start: 10-14-2020 End: 10-14-2020 Admission to same day surgery center 10/14/2020 Surgery IP Unit Anthony Galloway MD [address] [facility] [id number] DILATATION AND CURETTAGE LEEP-ENDOCERVICAL CURETTAGE [facility] Comment on above: DILATATION AND CURET TAGE LEEP-ENDOCERVICAL CURETTAGE Start: 10-14-2020 Subsequent hospital visit by physician 10/14/2020 Hospital Encounter IP Unit Anthony Galloway MD [address] [place] [address] [phone] [facility] Start: 10-09-2020 End: 10-09-2020 Patient encounter procedure 10/09/2020 Appointment Pre-Admission Testing [facility] PRE [facility] Start: 09-25-2020 End: 09-25-2021 COVID-19 COVID-19 Lab Routine Preop testing Expected: 09/25/2020, Expires: 09/25/2021 [facility] Work Phone: Comment on above: Expected: 09/25/2020 , Expires: 09/25/2021 Start: 04-23-2020 End: 04-23-2020 Procedure visit 04/23/2020 Procedure visit Obstetrics and Gynecology Anthony Galloway MD [address] [place] [address] [phone] [facility] OBSTETRICS & GYNECOLOGY Start: 04-03-2020 End: 04-03-2020 Patient education based on identified need [facility] Start: 04-03-2020 Medical Establ ished Patient [facility] Work Phone: Start: 03-20-2020 End: 03-20-2020 Patient education based on identified need [facility] Start: 10-29-2019 Influenza vaccination Flu vaccine (# 1) [place], [place] Start: 2014 Screening for malign ant neoplasm of cervix Cervical cancer screen [place], [place] Start: 2011 Hepatitis C screening Hepatitis C sc reen [facility] Start: 2009 COVID-19 Vaccine (1) COVID-19 Vaccin e (1) [facility] Work Phone: Start: 2008 HIV screening [facility] screen [facility] Start: 2005 COVID-19 Vaccine (1) COVID-19 Vaccin e (1) [facility] Work Phone: Start: 2005 Depression Monitoring Depression Mon [facility] Start: 2005 Depression Screen Depression Screen [facility] Start: 2004 HPV vaccine (1 - 2-d ose series) HPV vaccine (1 - 2-dose series) [place], [place] Start: 1999 Pneumococcal 0-64 ye ars Vaccine (1 - PCV) Pneumococcal 0-64 years Vaccine (1 - PCV) [facility] Start: 1999 Pneumococcal 0-64 ye ars Vaccine (1 of 1 - PPSV23) Pneumococcal 0-64 years Vaccine (1 of 1 - PPSV23) [place] Start: 1999 Pneumococcal 0-64 ye ars Vaccine (1 of 2 - PCV) Pneumococcal 0-64 years Vaccine (1 of 2 - PCV) [facility] Start: 1999 Pneumococcal 0-64 ye ars Vaccine (1 of 2 - PPSV23) Pneumococcal 0-64 years Vaccine (1 of 2 - PPSV23) [facility] Start: 1998 COVID-19 Vaccine (1) COVID-19 Vaccin e (1) [facility] Start: 1994 Varicella vaccine (1 of 2 - 2-dose childhood series) Varicella vaccine (1 of 2 - 2-dose childhood series) [facility] Start: 1993 COVID-19 Vaccine (#1) COVID-19 Vacci ne (#1) [facility] Start: 1993 Hepatitis B vaccine (1 of 3 - 3-dose series) Hepatitis B vaccine (1 of 3 - 3-dose series) [facility] Start: 1993 Hepatitis C screening Hepatitis C sc reen [facility] End: 08-24-2023 Bacteria identified in Urine by Culture Urine culture Microbiology Routine One Time for 1 Occurrences starting 08/24/2023 until 08/24/2023 [facility] Comment on above: One Time for 1 Occur rences starting 08/24/2023 until 08/24/2023 End: 09-12-2023 Bacteria identified in Urine by Culture Urine culture Microbiology Routine One Time for 1 Occurrences starting 09/12/2023 until 09/12/2023 [facility] Comment on above: One Time for 1 Occur rences starting 09/12/2023 until 09/12/2023 End: 02-25-2020 C.trachomatis N.gonorrhoeae DNA C.trachomatis N.gonorrhoeae DNA Microbiology STAT One Time for 1 Occurrences starting 02/25/2020 until 02/25/2020 [facility] [place] Comment on above: One Time for 1 Occur rences starting 02/25/2020 until 02/25/2020 C.trachomatis N.gonorrhoeae DNA C.trachomatis N.gonorrhoeae DNA Microbiology STAT 02/25/2020 10:29 PM EST [place], [place] Culture, Anaerobic a nd Aerobic [facility] Work Phone: Comment on above: Release Upon Orderin g for 1 Occurrences starting 03/04/2022 End: 03-25-2021 Culture, Genital [facility] Work Phone: Comment on above: 1 Occurrences starti ng 03/25/2021 until 03/25/2021 End: 08-03-2022 Culture, Urine [employer] Phone: Comment on above: Once for 1 Occurrenc es starting 08/03/2022 until 08/03/2022 End: 05-01-2023 Culture, Urine [employer] Phone: Comment on above: Once for 1 Occurrenc es starting 05/01/2023 until 05/01/2023 End: 05-29-2021 Culture, Virus, Non Respiratory Culture, Virus, Non Respiratory Microbiology Routine Once for 1 Occurrences starting 05/29/2021 until 05/29/2021 [employer] Phone: Comment on above: Once for 1 Occurrenc es starting 05/29/2021 until 05/29/2021 Culture, Virus, Non Respiratory Culture, Virus, Non Respiratory Microbiology Routine 05/28/2021 11:57 PM EDT [employer] Phone: End: 04-02-2020 Cytopathology procedure, preparation of smear, genital source PAP SMEAR Lab Routine Women's annual routine gynecological examination 1 Occurrences starting 04/02/2020 until 04/02/2020 [facility] Comment on above: 1 Occurrences starti ng 04/02/2020 until 04/02/2020 nonstress test nonst ress test OB Routine Daily until discontinued starting 08/25/2023 [employer] Phone: Comment on above: Daily until disconti nued starting 08/25/2023 nonstress test nonst ress test OB Routine Daily until discontinued starting 09/13/2023 [employer] Phone: Comment on above: Daily until disconti nued starting 09/13/2023 End: 05-01-2023 HIV Screen [facility] Comment on above: Once for 1 Occurrenc es starting 05/01/2023 until 05/01/2023 End: 03-04-2022 INITIATE PACU OXYGEN THERAPY PROTOCOL Initiate PACU Oxygen Therapy Protocol Respiratory Care Routine Continuous until discontinued starting 03/04/2022 [employer] Phone: Comment on above: Continuous until dis continued starting 03/04/2022 Oxygen therapy [Mini mum Data Set] Initiate Oxygen Therapy Protocol Respiratory Care Routine Daily until discontinued starting 10/14/2020 [employer] Phone: Comment on above: Daily until disconti nued starting 10/14/2020 Oxygen therapy [Mini mum Data Set] Initiate Oxygen Therapy Protocol Respiratory Care Routine As Needed until discontinued starting 03/04/2022 [employer] Work Phone: Comment on above: As Needed until disc ontinued starting 03/04/2022 Patient Education Schizophrenia (DC) [facility] Behavioral Health DC Instructions [facility] Work Phone: Patient referral [facility] Work Phone: Phase I & II - meter ed glucose Phase I & II - metered glucose Point of Care Testing Routine As Needed until discontinued starting 10/14/2020 [employer] Phone: Comment on above: As Needed until disc ontinued starting 10/14/2020 End: 08-19-2020 Surgical Pathology Surgical Pathology Lab Routine HGSIL (high grade squamous intraepithelial lesion) on Pap smear of cervix 1 Occurrences starting 08/19/2020 until 08/19/2020 [employer] Phone: Comment on above: 1 Occurrences starti ng 08/19/2020 until 08/19/2020 Surgical Pathology Surgical Path ology Lab Routine Release Upon Ordering for 1 Occurrences starting 10/14/2020 [employer] Phone: Comment on above: Release Upon Orderin g for 1 Occurrences starting 10/14/2020 End: 08-24-2023 SVE SVE Point of Care Testing Routine One Time for 1 Occurrences starting 08/24/2023 until 08/24/2023 [employer] Comment on above: One Time for 1 Occur rences starting 08/24/2023 until 08/24/2023 End: 09-12-2023 SVE SVE Point of Care Testing Routine One Time for 1 Occurrences starting 09/12/2023 until 09/12/2023 [facility] Comment on above: One Time for 1 Occur rences starting 09/12/2023 until 09/12/2023 End: 05-01-2023 Calixto levi Ab [facility] Comment on above: Once for 1 Occurrenc es starting 05/01/2023 until 05/01/2023 Immunizations Immunization Date Immunization Notes Care Provider Ralf kim 02-26-2019 Influenza, injectabl e, Madin Yuki Canine Kidney, preservative free, quadrivalent PHYSICIAN NO [facility] Payers Date Payer Category Payer Private Health Insurance [id number] 2021 Self-pay 1993 Unknown [id number] 2.16.8 [id number] 1993 Unknown [id number] 2.16. [id number] 1993 Unknown [id number] 2.16.84 0.1.694931.3.579.2.593 1993 Unknown [id number] 2.16.8 40.1.121705.3.579.2.173 1993 Unknown [id number] 2.16.8 40.1.344293.3.579.2.173 1993 Unknown [id number] 2.16.8 40.1.474946.3.579.2.173 1993 Unknown [id number] 2.16.8 40.1.157636.3.579.2.173 1993 Unknown [id number] 2.16.8 40.1.928256.3.579.2.173 1993 Unknown [id number] 2.16.8 40.1.653226.3.579.2.173 1993 Unknown [id number] 2.16.8 40.1.835891.3.579.2.173 1993 Unknown [id number] 2.16.8 40.1.478184.3.579.2.173 1993 Unknown [id number] 2.16.84 0.1.371687.3.579.2.9 1993 Unknown [id number] 2.16.84 0.1.193756.3.579.2.9 1993 Unknown [id number] 2.16.84 0.1.543467.3.579.2.9 1993 Unknown [id number] 2.16.84 0.1.780363.3.579.2.1258 1993 Unknown [id number] 2.16.84 0.1.860278.3.579.2.9 1993 Unknown [id number] 2.16.84 0.1.710225.3.579.2.9 1993 Unknown [id number] 2.16.84 0.1.774884.3.579.2.9 1993 Unknown [id number] 2.16.84 0.1.781842.3.579.2.9 1993 Unknown [id number] 2.16.84 0.1.464270.3.579.2.9 1993 Unknown [id number] 2.16.84 0.1.628027.3.579.2.1259 1961 Medicaid [id number] Unknown [id number] 2.16.8 40.1.358094.3.579.2.531 Social History Date Type Detail Facility Start: 12-24-2019 End: 03-01-2022 Tobacco smoking status NHIS Current every day smoker [place], [place] History of tobacco use Cigarette Smoker M [place], [place] Start: 12-24-2019 End: 09-04-2023 Cigarettes smoked current (pack per day) - Reported [place] Start: 12-24-2019 End: 09-12-2023 Tobacco use and exposure Never used [place] Start: 12-24-2019 End: 09-12-2023 Alcohol intake Current non-drinker of alcohol (finding) [place] Start: 1995 Sex Assigned At Not on file M [place] Start: 02-19-2022 End: 04-24-2022 Exposure to SARS-CoV-2 (event) Not sure [place] Assertion Exposure to poll ution (event) [facility] Assertion Tobacco user (finding) [facility] Tobacco smoking status Unknown i f ever smoked [facility] Work Phone: Assertion Social drinker (finding) [facility] Sexually active (finding) [facility] Assertion [facility] Assertion Gender identity finding (finding) [facility] Finding of sexua l orientation (finding) [facility] Moderate cigaret te smoker (10-19 cigs/day) (finding) [facility] Assertion Heavy cigarette smoker (20-39 cigs/day) (finding) [facility] Start: 10-27-2021 Assertion Smoker (finding) [facility] Start: 1995 Sex Assigned At Female F [facility] Start: 03-01-2022 History SDOH Alcohol Frequency 1 [facility] Work Phone: Start: 03-01-2022 History SDOH Alcohol Std Drinks 0 [facility] Work Phone: Start: 03-04-2022 Alcohol Comment barely ever- sociall y [facility] Work Phone: Start: 03-01-2022 End: 09-04-2023 Alcohol Use Disorder Identification Test - Consumption [AUDIT-C] [facility] How often to you hav e a drink containing alcohol? Never [facility] Start: 09-12-2023 Tobacco smoking stat us CAIS Ex-smoker [facility] Start: 03-03-2023 [facility] NEGATED: Highlighted row Assertion [facility] NEGATED: Highlighted row Assertion Current drinker of alcohol (finding) [facility] NEGATED: Highlighted row Assertion Exposure to pollution (event) [facility] Work Phone: Goals Date Patient Goal Desired Activity /State Functional Status Date Assessment Result Facility 10-29-2021 Functional status Patient at Baseline [facility] Work Phone: Mental Status Date Assessment Result Facility 10-29-2021 Cognitive function Cognitive Sta tus Patient at Baseline [facility] Work Phone: Cognitive function Cognitive fun ctioning was normal Cognitive function finding (finding) [facility] Work Phone: Clinical Notes 03-20-2020 to 09-12-2023 [...] may be discharged. 28yo F [facility] to [facility] with c/o vaginal discharge, increased [...] pt that she would be shipped to [place] as we do not deliver less than 35 weeks unless emergent. Pt placed on EFM at this time, urine specimen collected and sent to lab. documented in this encounter [facility] 09-12-2023 [facility] Discharg Ana Quintero RN - 09/12/2023 6:51 PM EDT OUT[facility]IENT [facility] [address] [id number] [phone] ACTIVITY LIMITATIONS: ( )Up and about as [...] be sent through Care Everywhere.: Abdominal Pain (Uzbek)documented in this encounter [facility] 08-24-2023 Hospital Discharg e instructions Iman Malhotra RN - 08/24/2023 8:40 PM EDT OUTPATIENT DISCHARGE Dr. Laverne Meyer [facility] Dr. Delano Kruse [facility] [address] [facility] [address] [facility] [id number] [place] [address] or [place] ACTIVITY LIMITATIONS: ( x )Up and about [...] AND DELIVERY . documented in this encounter [facility] 08-03-2022 Hospital Discharg e instructions Samara Pualino MD - 08/03/2022 9:33 AM EDT Patient [...] cannot be sent through Care Everywhere.Flank Pain (Uzbek)UTI (Urinary Tract Infection): Female (Uzbek)documented in this encounter [facility] Phone: 07-27-2022 Instructions Includes: Instructions for all patient encounters Discussed nutritional needs teach healthy choices including fruits and vegetables Last Documented On 3 6:56PM ; [facility] Patient education about a pr oper diet Last Documented On 3 6:56PM ; [facility] Patient education about an a sthma action plan Last Documented On 3 8:31AM ; [facility] Discussed concerns about exe rcise : promote physical activity ~ ~Will add symbicort ~ ~Follow up in one month Last Documented On 3 10:19AM ; [facility] Discussed current self-care methods/coping skills. ~Validated and normalized pt?s feelings while assisting patient process recent events. ~Discussed ongoing counseling. ~Discussed lifestyle changes to address chronic illness. ~Supported patient's personal health goals Last Documented On 2 4:59PM ; [facility] Discussed nutritional needs teach healthy choices including fruits and vegetables Last Documented On 2 4:50PM ; [facility] Patient education about a pr oper diet Last Documented On 2 4:50PM ; [facility] Discussed concerns about exe rcise : promote physical activity Last Documented On 2 4:50PM ; [facility] Discussed current self-care methods/coping skills. ~Validated and normalized pt?s feelings while assisting patient process recent events. ~Discussed ongoing counseling. ~Discussed lifestyle changes to address chronic illness. ~Supported patient's personal health goals Last Documented On 2 8:09PM ; [facility] Discussed nutritional needs teach healthy choices including fruits and vegetables Last Documented On 2 4:02PM ; [facility] Patient education about a pr oper diet Last Documented On 2 4:02PM ; [facility] Discussed concerns about exe rcise : promote physical activity Last Documented On 2 4:02PM ; [facility] Discussed nutritional needs teach healthy choices including fruits and vegetables Last Documented On 2 5:37PM ; [facility] Patient education about a pr oper diet Last Documented On 2 5:37PM ; [facility] Discussed concerns about exe rcise : promote physical activity Last Documented On 2 5:37PM ; [facility] Discussed nutritional needs teach healthy choices including fruits and vegetables Last Documented On 2 6:48PM ; [facility] Patient education about a pr oper diet Last Documented On 2 6:48PM ; [facility] Discussed concerns about exe rcise : promote physical activity Last Documented On 2 6:48PM ; [facility] Discussed nutritional needs teach healthy choices including fruits and vegetables Last Documented On 1 4:21PM ; [facility] Patient education about a pr oper diet Last Documented On 1 4:21PM ; [facility] Discussed concerns about exe rcise : promote physical activity Last Documented On 1 4:21PM ; [facility] Explored current self-care m ethods and encouraged patient to continue using them Last Documented On 1 7:54PM ; [facility] Discussed nutritional needs teach healthy choices including fruits and vegetables Last Documented On 1 11:53AM ; [facility] Patient education about a pr oper diet Last Documented On 1 11:53AM ; [facility] Discussed concerns about exe rcise : promote physical activity Last Documented On 1 11:53AM ; [facility] Work Phone: 1([phone]) 495-759805-31-2023 Evaluation note Includes: Assessments for all patient encounters Findings Encounter Date [Body mass index [BMI] 22.0- 22.9, adult] assessment of body mass index Medical Established Patient with Mariposa Duncan CNP 07/27/2022 Last Documented On 3 10:19AM ; [facility] Diabetes Risk Test Score was 0.0 score 07/27/2022 Medical Established Patient with Mariposa Perla CELL CLEANER 07/27/2022 Last Documented On 3 10:19AM ; [facility] Esophageal reflux without esophagitis Me dical Established Patient with Mariposa Perla CELL CLE[employer]ER 07/27/2022 Last Documented On 3 10:19AM ; [facility] Schizoaffective disorder Established Patient with Halima Argueta LP[facility] 08/17/2021 Last Documented On 2 9:40PM ; [facility] Asthma Medical Established Patient with Kia Edith CELL CLEANER 08/17/2021 Last Documented On 2 6:20PM ; [facility] Esophageal reflux without esophagitis Me dical Established Patient with Kia Edith [employer] 08/17/2021 Last Documented On 2 6:20PM ; [facility] Schizoaffective disorder Medical Establi shed Patient with Kia Edith [facility] 08/17/2021 Last Documented On 2 6:20PM ; [facility] Z68.20 - Body mass index [BM I] 20.0-20.9, adult Medical Established Patient with Kia Edith [employer] CLE[employer] 08/17/2021 Last Documented On 2 6:20PM ; [facility] Schizoaffective disorder Established Patient with Hailma Argueta LP[facility] 07/15/2021 Last Documented On 2 11:18AM ; [facility] Schizoaffective disorder Established Patient with Halima Argueta [facility] 07/15/2021 Last Documented On 2 11:18AM ; [facility] Bipolar disorder NOS Medical Established Patient with Kia Edith [employer] 07/15/2021 Last Documented On 2 9:30AM ; [facility] Esophageal reflux without esophagitis Me dical Established Patient with Kia Edith [employer] 07/15/2021 Last Documented On 2 9:30AM ; [facility] Herpes simplex type I Medical Established Patien t with Kia Edith [facility] 07/15/2021 Last Documented On 2 9:30AM ; [facility] Z68.1 - Body mass index [BMI ] 19.9 or less, adult Medical Established Patient with Kia Edith [employer] 07/15/2021 Last Documented On 2 9:30AM ; [facility] Asthma Medical Established Patient with Kia Edith [employer] 07/01/2021 Last Documented On 2 7:44PM ; [facility] Bipolar disorder NOS Medical Established Patient with Kia Edith [employer] 07/01/2021 Last Documented On 2 7:44PM ; [facility] Herpes simplex type I Medical Established Patien t with Kia Edith [employer] CLE[employer] 07/01/2021 Last Documented On 2 7:44PM ; [facility] Schizoaffective disorder Medical Establi shed Patient with Kia Edith [employer] CLE[employer] 07/01/2021 Last Documented On 2 7:44PM ; [facility] Z68.20 - Body mass index [BM I] 20.0-20.9, adult Medical Established Patient with Kia Edith [employer] 07/01/2021 Last Documented On 2 7:44PM ; [facility] Diabetes Risk Test Score was one score 05/28/2021 Medical Established Patient with Kia Edith [employer] 05/28/2021 Last Documented On 2 8:39AM ; [facility] Herpes simplex type I Medical Established Patien t with Kia Edith [employer] CLE[employer] 05/28/2021 Last Documented On 2 8:39AM ; [facility] No cough Medical Established Patient with Kia Edith [employer] 05/28/2021 Last Documented On 2 8:39AM ; [facility] Visit for: screening for hum an immunodeficiency virus Medical Established Patient with Kia Edith [employer] 05/28/2021 Last Documented On 2 8:39AM ; [facility] Z11.59 - Encounter for nettie kauffman for other viral diseases Medical Established Patient with Kia Edith [employer] 05/28/2021 Last Documented On 2 8:39AM ; [facility] Z68.1 - Body mass index [BMI ] 19.9 or less, adult Medical Established Patient with Kia Edith [employer] 05/28/2021 Last Documented On 2 8:39AM ; [facility] Asthma Medical Established Patient with Kia Sharma CE[employer] CLE[employer] 04/03/2020 Last Documented On 1 1:12PM ; [facility] Body mass index Medical Established Patient with Kia Sharma [employer] 04/03/2020 Last Documented On 1 1:12PM ; [facility] Esophageal reflux without esophagitis Me dical Established Patient with Kia Sharma [employer] 04/03/2020 Last Documented On 1 1:12PM ; [facility] Lower backache Medical Established Patient with Kia Sharma [employer] 04/03/2020 Last Documented On 1 1:12PM ; [facility] Bipolar disorder (per denia vega, diagnosed w/both Bipolar I & II) Telebehavioral Health with Halima Marroquins LPCC-[facility] 03/20/2020 Last Documented On 1 7:55PM ; [facility] Schizoaffective disorder (pe r patient report) Telebehavioral Health with Halimachuck Condonmons LPCC-S 03/20/2020 Last Documented On 1 7:55PM ; [facility] Asthma Telemedicine New Patient with An michelle Sharma CELL CLEANER 03/20/2020 Last Documented On 1 9:48AM ; [facility] Lumbago Telemedicine New Patient with An michelle Sharma CELL CLE[employer]ER 03/20/2020 Last Documented On 1 9:48AM ; [facility] Z68.21 - Body mass index [BM I] 21.0-21.9, adult Telemedicine New Patient with Kia Sharma CELL CLE[employer]ER 03/20/2020 Last Documented On 1 9:48AM ; [facility] Work Phone: 1(882) 610-403405-31-2023 Progress note* Progress note Date Encounter Last Documented by 07/27/2022 Medical Established Patient Last documented on 07/28/2022; 10:19 AM, Mariposa Duncan CNP; [facility] Active Problems & Conditions - J45.998 - Asthma - M54.50 - Backache Lower - K21.9 - Esophageal Reflux Without Esophagitis - 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 - F25.0 - Schizoaffective Disorder Chief Complaint The Chief Complaint is: Patient states feels like gerd is coming back, patient states that burps smell like rotten eggs or machine sewer went to ER for migraines. Referred [...] BP-Sitting L117/63 mmHg BP Cuff SizeRegular Pulse Rate-Czfkpbc50 bpm Temp-Oaffkwkg69.3 F Wcwxco71 in Ngzclq681 lbs 4.8 oz Body Mass Index22 kg/m2 Body Surface Area1.8 m2 Oxygen Lksnyddfkg79 % General Appearance: - Awake. - Alert. [...] in household were unable to get needed children counselor: No and unable to get other needs [...] Less than 40 years (0 points) [Pre-DM]. [facility]05-31-2023 Reason for referral (narrative)* Date Encounter Description Provider Reason for Referral 07/27/22 Medical Established Patient Mariposa Duncan CELL CLEANER Referral To Mental Health Team; JENIFFER Referral For [facility] Work Phone: 1(534) 164-270302-26-2023 Hospital Discharge instructions* Discharge Instructions* Christopher Stephenson [...] through Care Everywhere. * Nausea and Vomiting (Uzbek) [facility] 1(124) 601-813501-06-2023 History of Present illness Narrative* Martha Melgoza [...] smoked today 03/03/22. [facility] Phone: 1(805) 611-981401-06-2023 Hospital Discharge instructions* Discharge Instructions* Kassidy Davidson [...] to bathe or shower. [facility] Phone: 1(413) 853-894101-03-2023 Hospital Discharge instructions* Discharge Instructions* Nicholas Denton MD - 03/01/2022 8:09 AM EST Take your medications as prescribed. You may take Tylenol Motrin as needed for pain control as wellas warm compresses. Follow-up with your OB account advisor as scheduled. You have been given a referral for general surgeon if this continues for further assessment of possible drainage. * Attachments The following attachments cannot be sent through Care Everywhere. * Cellulitis (Uzbek) [facility] [place] Phone: 1(136) 118-143406-21-2022 Evaluation note Includes: Assessments for all patient encounters Findings Encounter Date Schizoaffective disorder Established Patient with Halima Argueta LPCC-S 08/17/2021 Asthma Medical Established Patient with Kia Sharma CNP 08/17/2021 Esophageal reflux without esophagitis Me dical Established Patient with Kia Edith [employer] 08/17/2021 Schizoaffective disorder Medical Establi shed Patient with Kia Sharma [facility] 08/17/2021 Z68.20 - Body mass index [BM I] 20.0-20.9, adult Medical Established Patient with Kia Edith [employer] 08/17/2021 Schizoaffective disorder BH Established Patient with Halimachuck Marroquins [facility] 07/15/2021 Schizoaffective disorder BH Established Patient with Halima Argueta [facility] 07/15/2021 Bipolar disorder NOS Medical Established Patient with Kia Edith [employer] 07/15/2021 Esophageal reflux without esophagitis Me dical Established Patient with Kia Edith [employer] 07/15/2021 Herpes simplex type I Medical Establishe d Patient with Kia Sharma [facility] 07/15/2021 Z68.1 - Body mass index [BMI ] 19.9 or less, adult Medical Established Patient with Kia Edith [facility] 07/15/2021 Asthma Medical Established Patient with Kia Sharma [employer] 07/01/2021 Bipolar disorder NOS Medical Established Patient with Kia Edith [facility] 07/01/2021 Herpes simplex type I Medical Establishe d Patient with Kia Edith [facility] 07/01/2021 Schizoaffective disorder Medical Establi shed Patient with Kia Sharma [facility] 07/01/2021 Z68.20 - Body mass index [BM I] 20.0-20.9, adult Medical Established Patient with Kia Edith [facility] 07/01/2021 Diabetes Risk Test Score was one score 05/28/2021 Medical Established Patient with Kia Edith [facility] 05/28/2021 Herpes simplex type I Medical Establishe d Patient with Kia Edith [facility] 05/28/2021 No cough Medical Established Patient with Kia Edith [facility] 05/28/2021 Visit for: screening for hum an immunodeficiency virus Medical Established Patient with Kia Edith [facility] 05/28/2021 Z11.59 - Encounter for nettie kauffman for other viral diseases Medical Established Patient with Kia Edith [facility] 05/28/2021 Z68.1 - Body mass index [BMI ] 19.9 or less, adult Medical Established Patient with Kia Edith [facility] 05/28/2021 Asthma Medical Established Patient with Kia Edith [employer] 04/03/2020 Body mass index Medical Established Patient with Kia Edith [facility] 04/03/2020 Esophageal reflux without esophagitis Me dical Established Patient with Kia Sharma [employer] 04/03/2020 Lower backache Medical Established Patient with Kia Edith [employer] 04/03/2020 Bipolar disorder (per denia vega, diagnosed w/both Bipolar I & II) Telebehavioral Health with Halimachuck Marroquins LP[facility] 03/20/2020 Schizoaffective disorder (pe r patient report) Telebehavioral Health with Halima Argueta [facility] 03/20/2020 Asthma Telemedicine New Pat ient with Kia Sharma CELL CLEANER 03/20/2020 Lumbago Telemedicine New Pat ient with Kia Edith [facility] 03/20/2020 Z68.21 - Body mass index [BM I] 21.0-21.9, adult Telemedicine New Patient with Kia Sharma CELL CLE[employer]ER 03/20/2020 [facility] Work Phone: 1([phone]) 899-986305-19-2022 Evaluation note Includes: Assessments for all patient encounters Findings Encounter Date Schizoaffective disorder Established [facility] Schizoaffective disorder Established [facility]2021 Bipolar disorder NOS Medical Established Patient with Kia Sharma [employer] 07/15/2021 Esophageal reflux without esophagitis Me dical Established Patient with Kia Sharma [employer] 07/15/2021 Herpes simplex type I Medical Establishe d Patient with Kia Sharma [facility] 07/15/2021 Z68.1 - Body mass index [BMI ] 19.9 or less, adult Medical Established Patient with Kia Sharma [employer] 07/15/2021 Asthma Medical Established Patient with Kia Edith [employer] 07/01/2021 Bipolar disorder NOS Medical Established Patient with Kia Edith [employer] 07/01/2021 Herpes simplex type I Medical Establishe d Patient with Kia Edith [employer] 07/01/2021 Schizoaffective disorder Medical Establi shed Patient with Kia Sharma [employer] 07/01/2021 Z68.20 - Body mass index [BM I] 20.0-20.9, adult Medical Established Patient with Kiajace Sharma [employer] 07/01/2021 Diabetes Risk Test Score was one score 05/28/2021 Medical Established Patient with Kia Sharma [employer] 05/28/2021 Herpes simplex type I Medical Establishe d Patient with Kia Edith [facility] 05/28/2021 No cough Medical Established Patient with Kia Sharma [facility] 05/28/2021 Visit for: screening for hum an immunodeficiency virus Medical Established Patient with Kia Sharma [facility] 05/28/2021 Z11.59 - Encounter for nettie kauffman for other viral diseases Medical Established Patient with Kia Sharma [facility] 05/28/2021 Z68.1 - Body mass index [BMI ] 19.9 or less, adult Medical Established Patient with Kia Sharma [facility] 05/28/2021 Asthma Medical Established Patient with Kia Sharma [facility] 04/03/2020 Body mass index Medical Established Patient with Kia Sharma [facility] 04/03/2020 Esophageal reflux without esophagitis Me dical Established Patient with Kia Sharma [facility] 04/03/2020 Lower backache Medical Established Patient with Kia Sharma [facility] 04/03/2020 Bipolar disorder (per denia vega, diagnosed w/both Bipolar I & II) Telebehavioral Health with Halima Argueta [facility] 03/20/2020 Schizoaffective disorder (pe r patient report) Telebehavioral Health with Halima Argueta [facility] 03/20/2020 Asthma Telemedicine New Pat ient with Kia Sharma [facility] 03/20/2020 Lumbago Telemedicine New Pat ient with Kia Sharma [facility] 03/20/2020 Z68.21 - Body mass index [BM I] 21.0-21.9, adult Telemedicine New Patient with Kia Sharma [facility] 03/20/2020 [facility] Work Phone: [phone]) [phone] Evaluation note Includes: Assessments for all patient encounters Findings Encounter Date Asthma Medical Established Patient with Kia Sharma [facility] 07/01/2021 Bipolar disorder NOS Medical Established Patient with Kia Sharma [facility] 07/01/2021 Herpes simplex type I Medical Establishe d Patient with Kia Sharma [facility] 07/01/2021 Schizoaffective disorder Medical Establi shed Patient with Kia Sharma [facility] [facility] 07[facility]/2021 Z68.20 - Body mass index [BM I] 20.0-20.9, adult Medical Established Patient with Kia Sharma [facility] 07/01/2021 Diabetes Risk Test Score was one score 05/28/2021 Medical Established Patient with Kia Sharma [facility] 05/28/2021 Herpes simplex type I Medical Establishe d Patient with Kia Sharma [facility] 05/28/2021 No cough Medical Established Patient with Kia Sharma [facility] 05/28/2021 Visit for: screening for hum an immunodeficiency virus Medical Established Patient with Kia Sharma [facility] 05/28/2021 Z11.59 - Encounter for scree jamari for other viral diseases Medical Established Patient with Kia Sharma [facility] 05/28/2021 Z68.1 - Body mass index [BMI ] 19.9 or less, adult Medical Established Patient with Kia Sharma [facility] 05/28/2021 Asthma Medical Established Patient with Kia Sharma [facility] 04/03/2020 Body mass index Medical Established Patient with Kia Sharma [facility] 04/03/2020 Esophageal reflux without esophagitis Me dical Established Patient with Kia Sharma [facility] 04/03/2020 Lower backache Medical Established Patient with Kia Sharma [facility] 04/03/2020 Bipolar disorder (per denia vega, diagnosed w/both Bipolar I & II) Telebehavioral Health with Halima Argueta [facility] 03/20/2020 Schizoaffective disorder (pe r patient report) Telebehavioral Health with Halima Argueta [facility] 03/20/2020 Asthma Telemedicine New Pat ient with Kia Sharma [facility] 03/20/2020 Lumbago Telemedicine New Pat ient with Kia Sharma [facility] 03/20/2020 Z68.21 - Body mass index [BM I] 21.0-21.9, adult Telemedicine New Patient with Kia Sharma [facility] 03/20/2020 [facility] Work Phone: 1(653) 914-830504-01-2022 Evaluation note Includes: Assessments for all patient encounters Findings Encounter Date Diabetes Risk Test Score was one score 05/28/2021 Medical Established Patient with Kia Sharma [facility] 05/28/2021 Herpes simplex type I Medical Establishe d Patient with Kia Sharma [facility] 05/28/2021 No cough Medical Established Patient with Kia Sharma [facility] 05/28/2021 Visit for: screening for hum an immunodeficiency virus Medical Established Patient with Kia Sharma [facility] 05/28/2021 Z11.59 - Encounter for scree jamari for other viral diseases Medical Established Patient with Kia Sharma [facility] 05/28/2021 Z68.1 - Body mass index [BMI ] 19.9 or less, adult Medical Established Patient with Kia Sharma [facility] 05/28/2021 Asthma Medical Established Patient with Kia Sharma [facility] 04/03/2020 Body mass index Medical Established Patient with Kia Sharma [facility] 04/03/2020 Esophageal reflux without esophagitis Me dical Established Patient with Kia Sharma [facility] 04/03/2020 Lower backache Medical Established Patient with Kia Sharma [facility] 04/03/2020 Bipolar disorder (per denia vega, diagnosed w/both Bipolar I & II) Telebehavioral Health with Halima Marroquins [facility] 03/20/2020 Schizoaffective disorder (pe r patient report) Telebehavioral Health with Halima Condonmons [facility] 03/20/2020 Asthma Telemedicine New Pat ient with Kia Sharma [facility] 03/20/2020 Lumbago Telemedicine New Pat ient with Kia Sharma [facility] 03/20/2020 Z68.21 - Body mass index [BM I] 21.0-21.9, adult Telemedicine New Patient with Kia Sharma [facility] 03/20/2020 [facility] Work Phone: 1(915) 112-245208-18-2021 History of Present illness Narrative* Irish Nelson [...] RN - 10/14/2020 12:39 PM EDT Rogers LEGGER PRESS OPERATOR in to see patient. Patient's boyfriend called to steel pickler. * Rufina Hamilton RN - 09/28/2020 7:52 [...] calls at this time. [facility] 1(460) 929-325602-05-2021 Evaluation note Includes: Assessments for all patient encounters Findings Encounter Date Asthma Medical Established Patient with Kia Sharma [facility] 04/03/2020 Body mass index Medical Established Patient with Kia Sharma [facility] 04/03/2020 Esophageal reflux without esophagitis Me dical Established Patient with Kia Sharma [facility] 04/03/2020 Lower backache Medical Established Patient with Kia Sharma [facility] 04/03/2020 Bipolar disorder (per denia vega, diagnosed w/both Bipolar I & II) Telebehavioral Health with Halima Argueta [facility] 03/20/2020 Schizoaffective disorder (pe r patient report) Telebehavioral Health with Halima Argueta [facility] 03/20/2020 Asthma Telemedicine New Pat ient with Kia Sharma [facility] 03/20/2020 Lumbago Telemedicine New Pat ient with Kia Sharma [facility] 03/20/2020 Z68.21 - Body mass index [BM I] 21.0-21.9, adult Telemedicine New Patient with Kia Sharma [facility] 03/20/2020 [facility] Work Phone: 1(405) 807-535401-22-2021 History general Narrative - Reported Includes: Medical History in patient's chart Description Last Updated per pt report- 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 ~heartb urn 03/20/2020 History of psychiatric disor ders ADHD, manic bipolar 1 and 2, schizoeffective disorder 03/20/2020 History of tooth extraction 03/20/2020 History of asthma 03/20/2020 A recent immunization for flu 03/20/2020 No previous hospitalizations 03/20/2020 [facility] Work Phone: 1(514) 246-316101-22-2021 History general Narrative - Reported Includes: Medical History in patient's chart Description Last Updated per pt report- 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 ~heartb urn 03/20/2020 Last Documented On 1 9:48AM ; [facility] History of psychiatric disor ders ADHD, manic bipolar 1 and 2, schizoeffective disorder 03/20/2020 Last Documented On 1 9:48AM ; [facility] History of tooth extraction 03/20/2020 Last Documented On 1 9:48AM ; [facility] History of asthma 03/20/2020 Last Documented On 1 9:48AM ; [facility] A recent immunization for flu 03/20/2020 Last Documented On 1 9:48AM ; [facility] No previous hospitalizations 03/20/2020 Last Documented On 1 9:48AM ; [facility] Work Phone: Discharge summary Author Osmani baugh [facility] October 29, 2021 9:52am Note Date/Time October 29, 2021 9:52am [facility] [address] [place] [address] Discharge Summary Signed Patient: Bennett Vaughn MR#: [id number] : 1995 Acct:[id number] Age/Sex: 26 / F Adm Date: 2 Loc: Room: [address] [place] [address]: Feliberto Faust MD Copies to: OsmaniMD Feliberto Borrego MD NO FAMILY PHYSICIAN~ Providers Date of Discharge: 10/29/21 Discharging Provider: Jered Timmons Primary Care Provider: PHYSICIAN DOBBINS FAMILY Consults: 10/26/21 20:25 Consult to Case [...] Alcohol use: once a year Substance Use: luciejauna daily Living: boyfriend 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 [...] 15 Days Qty: 30 1RF Follow Up: Alevism Senior Visual Designer [Other] (Therapy: Case management: ) Documented By: Osmani Timmons MD 2 0949 Signed By: <Electronically signed by Osmani Timmons MD> 10/29/21 0952 [facility] Work Phone: Evaluation note* Diagnosis HGSIL (high grade squamous intraepithelial lesion) on Pap smear of cervix documented in this encounter [employer] Phone: evaluation note* Diagnosis Preop testing- Primary Preoperative examination, unspecified documented in this encounter [employer] Phone: evalkwjwno note* Diagnosis Preop testing Preoperative examination, unspecified documented in this encounter [employer] Phone: evalihnkxx note* Diagnosis 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 documented in this encounter [employer] Phone: evalkkgufw note* Diagnosis Irregular menstrual cycle documented in this encounter [employer] Phone: evaluation note* Diagnosis Vaginal discharge Leukorrhea, not specified as infective documented in this encounter [employer] Phone: evaluation note* Diagnosis Onset Date Resolution Status Bipolar affective, mixed, sev w/ psych acute Chronic schizophrenia acute PTSD (post-traumatic stress disorder) acute Suicidal ideation acute [facility] Work Phone: Evaluation note* Diagnosis Cellulitis of right breast- Primary documented in this encounter [employer] Work Phone: evaluation note* Diagnosis Abscess of right breast- Primary Inflammatory disease of breast Abscess of right breast Inflammatory disease of breast documented in this encounter [employer] Work Phone: evaluation note* Diagnosis Nausea vomiting and diarrhea- Primary Nausea with vomiting documented in this encounter [employer] Work Phone: evaluation note* Diagnosis Abscess of female breast Inflammatory disease of breast documented in this encounter [facility] [employer] Work Phone: evaluation note* Diagnosis Flank pain- Primary Abdominal pain, unspecified site Urinary tract infection without hematuria, site unspecified documented in this encounter [employer] Work Phone: evaluation note* Diagnosis Abdominal pain- Primary Abdominal pain, unspecified site documented in this encounter [facility] [employer] note* Diagnosis Abdominal cramping- Primary Abdominal pain, unspecified site documented in this encounter [facility] Author Feliberto Faust [facility] October 27, 2021 3:07pm Note Date/Time October 27, 2021 3: 07pm [facility] [address] [place] [address] Psychiatry H&P Signed Patient: Bennett Vaughn MR#: [id number] : 1995 Acct:[id number] Age/Sex: 26 / F Adm Date: 2 Loc: Room: [address] [place] [address] Type: ADM IN Attending Dr: Feliberto Faust [...] Alcohol use: once a year Substance Use: luciejauna daily Living: boyfriend Employment: [employer] business Review of symptoms: Constitutional: Denies chills [...] Appearance Clear Urine pH 7.0 Ur Specific Jackson 1.005 Urine Protein Negative Urine Glucose (UA) [...] signed by Feliberto Faust MD> 10/27/21 1507 [facility] Work Phone: History of Present illness Narrative History of Present Illness not supported for this document type No History of Present Illness [facility] Work Phone: Hospital Discharge instructions* Instructions* [...] In the meantime, you may take an geui-tvm-iibuzqe analgesic (Tylenol, Anacin, etc.) and use a heating pad applied to the lower abdomen. Please call the office as soon as possible for a post-operative visit in two weeks. If you experience any unusual amount of bleeding or side effects that you cannot readily explain, please do not hesitate to call the office. documented in this [facility] Work Phone: Hospital Discharge instructions Additional Instructions Regular diet No activity restrictions[facility] Work Phone: Instructions Instructions not supported for this document type No Instructions [facility] Work Phone: Patient problem outcome Narrative Includes: Evaluations & Outcomes for active Goals No Outcomes [facility] Work Phone: Progress note Author Osmani baugh [facility] October 28, 2021 12:18pm Note Date/Time October 28, 2021 12:18pm [facility] [address] [place] [address] Psychiatry Progress Note Signed Patient: Bennett Vaughn MR#: [id number] : 1995 Acct:[id number] Age/Sex: 26 / F Adm Date: 2 Loc: Room: 9E1307-5 Type : ADM IN Attending Dr: Feliberto Faust MD Copies to: ~ Date of Service: 10/28/2021 Subjective Subjective Narrative: Timothyee reports improving mood. She states that she [...] signed by Osmani Timmons MD> 10/28/21 1218 [facility] Work Phone: Reason for referral (narrative)No Reason for Referral [facility] Work Phone: Review of systems Narrative - Reported Review of Systems not supported for this document type No Review of Systems [facility] Work Phone: Summary Purpose Family History No Family History Records Found Description Last Updated father unknown 03/20/2020 Fraternal history of asthma 03/20/2020 Maternal history of hypertension 021 Relationship Condition Age at Onset Recorded Date/T jama Not Specified Bipolar affective disorder Unknown Hypertension Unknown brother Asthma Unknown Description Last Updated father unknown 03/20/2020 Last Documented On 1 9:48AM ; [facility] Fraternal history of asthma 03/20/2020 Maternal history of hypertension 021 Advance Directives No Advanced Directives Records FoundDocuments on File Type Date Recorded Patient Embryology Professor Expl anation ACP-Advance Directive ACP-Power of Health Care Facilities Inspector Latest Code Status on File Code Status Date Activated Date Inactivated Comments Full Code 02/13/2018 11:30 AM 02/15/2018 11:04 PM Full Code 07/15/2017 3:32 AM 07/17/2017 3:26 PM Full Code 07/15/2017 3:31 AM 07/15/2017 3:32 AM Full Code 10/29/2016 5:43 AM 11/02/2016 12:08 AM Full Code 02/14/2015 3:50 AM 02/17/2015 4:19 PM Documents on File Type Date Recorded Patient Embryology Professor Expl anation ACP-Advance Directive ACP-Power of Health Care Facilities Inspector Latest Code Status on File Code Status [...] Relationship Healthcare Agent Relationshi p Communication Aaron Dagboerto Spouse Primary Decision Maker Healthcare Agents on [...] 4:35 PM Healthcare Agents on File Name Relationship Healthcare Agent Relationshi p Communication Aaron Dagoberto Other Primary Decision Maker Discharge Instructions * [...] sent through Care Everywhere. * Tooth: Abscessed (Uzbek) documented in this encounter* Instructions* Sid Norris [...] sent through Care Everywhere. * Bacterial Vaginosis (Uzbek) * Vaginal Bleeding (Uzbek) documented in this encounter* Instructions* Irina Ojeda PA-C - 02/06/2020 Call your dentist to arrange follow-up for recheck this week. * Attachments The following attachments cannot be sent through Care Everywhere. * Tooth: Abscessed (Uzbek) documented in this encounter* Instructions* Jose Saldaña APRN - CNP - 12/24/2019 Take amoxicillin as prescribed. Return to the emergency department for worsening symptoms. * Attachments The following attachments cannot be sent through Care Everywhere. * Dental Care: Pre-Dental Work Precautions: General Info (Uzbek) documented in this encounter Assessments Diagnosis Dental infection Acute apical periodontitis of pulpal origin Diagnosis Dental abscess Periapical abscess without sinus Dental caries Unspecified dental caries Diagnosis Bacterial vaginosis- Primary Vaginitis and vulvovaginitis, unspecified Vaginal bleeding Other specified noninflammatory disorder of vagina Findings Encounter Date Bipolar disorder (per denia vega, diagnosed w/both Bipolar I & II) Telebehavioral Health with Halima Argueta [facility] 03/20/2020 Schizoaffective disorder (pe r patient report) Telebehavioral Health with Halima Argueta [facility] 03/20/2020 Asthma Telemedicine New Pat ient with Kia Sharma CNP 03/20/2020 Lumbago Telemedicine New Pat ient with Kia Sharma [facility] 03/20/2020 Z68.21 - Body mass index [BM I] 21.0-21.9, adult Telemedicine New Patient with Kia Sharma [facility] 03/20/2020 Diagnosis Women's annual routine gynecological examination Findings Encounter Date Asthma Medical Established Patient with Kia Sharma [facility] 04/03/2020 Body mass index Medical Established Patient with Kia Sharma [facility] 04/03/2020 Esophageal reflux without esophagitis Me dical Established Patient with Kia Sharma [facility] 04/03/2020 Lower backache Medical Established Patient with Kia Sharma [facility] 04/03/2020 Bipolar disorder (per denia vega, diagnosed w/both Bipolar I & II) Telebehavioral Health with Halima Condonmons [facility] 03/20/2020 Schizoaffective disorder (pe r patient report) Telebehavioral Health with Halima Condonmons [facility] 03/20/2020 Asthma Telemedicine New Pat ient with Kia Sharma [facility] 03/20/2020 Lumbago Telemedicine New Pat ient with Kia Sharma [facility] 03/20/2020 Z68.21 - Body mass index [BM I] 21.0-21.9, adult Telemedicine New Patient with Kia Sharma [facility] 03/20/2020 Diagnosis Dental infection- Primary Acute [...] section and content) DATE CREATED AUTHOR 12/08/2018 [facility] DATE CREATED AUTHOR AUTHOR'S ORGANIZ ATION 05/31/2021 [place] DATE CREATED AUTHOR AUTHOR'S ORGANIZ ATION 03/16/2022 [facility] DATE CREATED AUTHOR AUTHOR'S ORGANIZ ATION 04/02/2022 [facility] DATE CREATED AUTHOR AUTHOR'S ORGANIZ ATION 10/02/2023 [facility] DATE CREATED AUTHOR AUTHOR'S ORGANIZ ATION 10/25/2023 [facility] dical Specialists EPIC Reason for Visit [...] (cervical intraepithelial neoplasia II) SHREYA II Procedures DC CONIZATION CERVIX,LOOP ELECTRD DILATATION AND CURETTAGE LEEP-ENDOCERVICAL CURETTAGE Anthony Galloway MD [address] [place] [address] [facility] Reason Comments Breast Pain Right sided, onset y esterday pm, patient states she had an infection in her right breast a few months ago Specialty Diagnoses / Procedures Referred By Gladis t Referred To Contact Diagnoses Abscess of right breast right breast abcess Procedures DC DRAIN SKIN ABSCESS SIMPLE BREAST INCISION AND DRAINAGE- BREAST Geoff Miller MD [address] [place] [address] [facility] [address] [place] [address] Referral ID Status Reason Start Date Expiration Date Visits Re quested Visits Authorized [id number] 1 1 Reason Comments Nausea Emesis Illness Pt. States she has h ad nausea & vomiting since this am. Reports hot & cold flashes & Occasional dizziness Specialty Diagnoses / Procedures Referred By Gladis vega Referred To Contact Radiology Diagnoses Abscess of female breast Procedures US BREAST LIMITED RIGHT US BREAST COMPLETE RIGHT Geoff Miller MD [address] [place] [address] Referral ID Status Reason Start Date Expiration Date Visits Re quested Visits Authorized [id number] Open 04/18/2022 04/18/2023 1 1 Specialty Diagnoses / Procedures Referred By Gladis vega Referred To Contact Radiology Diagnoses Abscess of female breast Procedures DUSTIN JASMINA DIGITAL DIAGNOSTIC BILATERAL DUSTIN DIGITAL DIAGNOSTIC W OR WO CAD BILATERAL Geoff Miller MD [address] [place] [address] [address] Referral ID Status Reason Start Date Expiration Date Visits Re quested Visits Authorized [id number] Closed 04/18/2022 04/18/2023 1 1 Reason Comments [...] 100 mL IVPB (COMPLETED) 2,000 mg, Intravenous, BLENDING TANK TENDER HELPER TO O.R., 1 dose, On Mon10/14/20 at [...] 100 mL IVPB (COMPLETED) 2,000 mg, IntraVENous, BLENDING TANK TENDER HELPER TO O.R., 1 dose, On Mon03/04/22 at 1115, Antimicrobial Indications: Surgical Prophylaxis, Administer within 1 hour prior to incision. Recommend to repeat in 3-4 hours after initial dose if still intra-op., Pre-op (day of surgery) 1244 (Given - Provid er: Roseanne Kruse APRN - LEGGER PRESS OPERATOR) dimenhyDRINATE (DRAMAMINE) tablet 50 mg (COMPLETED) 50 [...] PHYSICIAN NO FAMILY Primary Care Provider Active Track Repairer Helper Relationship Specialty Start Date End Date Kia Sharma, PAPER CONSERVATOR - CELL CLEANER [address] [place] [address] PCP - General Nurse Practitioner 04/13/22 Track Repairer Helper Relationship Specialty Start Date End Date Kia Sharma, PAPER CONSERVATOR - CELL CLEANER [address] [place] [address] PCP - General Nurse Practitioner 04/13/22 Track Repairer Helper Relationship Specialty Start Date End Date Kia Sharma APRN - CELL CLEANER [address] [place] [address] PCP - General Nurse Practitioner 04/13/22 Track Repairer Helper Relationship Specialty Start Date End Date Kia Sharma PAPER CONSERVATOR - CELL CLEANER [address] [place] [phone] PCP - General Nurse Practitioner 04/13/22 Track Repairer Helper Relationship Specialty Start Date End Date Kia Sharma PAPER CONSERVATOR - CELL CLEANER [address] [place] [phone] PCP - General Nurse Practitioner 04/13/22 Track Repairer Helper Relationship Specialty Start Date End Date Kia Sharma APRN - CELL CLEANER [address] [place] [phone] PCP - General Nurse Practitioner 04/13/22 FOR [...] BE BASED ON THE PRIMARY CLINICAL RECORDS. [facility]. provides no warranty or guarantee of the accuracy or completeness of information in this document.
[2023-10-30 09:59] VITALS: BP 115/59; PULSE 86; TEMP 36.3
[2023-10-30 10:19] LABS: Bilirubin Urine NEGATIVE (NEGATIVE); Blood Urine NEGATIVE (NEGATIVE); Clarity Urine CLEAR (CLEAR); Color Urine LT. YELLOW (YELLOW); Glucose Urine UA NEGATIVE (NEGATIVE); Ketones Urine NEGATIVE (NEGATIVE); Leukocyte Esterase Urine NEGATIVE (NEGATIVE); Nitrite Urine NEGATIVE (NEGATIVE); Protein Urine NEGATIVE (NEG/TRACE); Specific Gravity Urine <=1.005 (1.005-1.025); Urobilinogen Urine 0.2 EU/dL (0.2-1.0)
[2023-10-30 10:20] LABS: Urine Microscopic Indicated NO
[2023-10-30 10:26] LABS: Amnisure NEGATIVE (NEGATIVE); Internal Control Within Normal Limits
--- NOTE | 2023-10-30 10:45 | US_ITS ---
The [address] [address] Patient Name: BENNETT EM MRN: [id number] date: 1995 Sex: F Assigned Patient Location: [facility] Current Patient Location: [facility] Accession/Order Number: [id number] Exam Date: 10/30/2023 11:15 Report Date: 10/30/2023 12:44 At the request of: JOCELINE VIVAR Procedure: US OB amniotic fluid vol EXAM: US OB amniotic fluid vol HISTORY: . abdominal and back pain . COMPARISON: None. TECHNIQUE: Grayscale imaging was performed along with color imaging. FINDINGS: There is an intrauterine in the breech presentation with a heart rate of 127. Amniotic fluid volume was 15.5 cm which is between the 50th and 95th percentile. Largest pocket of fluid measures 5.6 cm. Placenta is posterior and fundal and grade 1. The cervix was closed. US/US OB amniotic fluid vol IMPRESSION: 1 breech presentation with a heart rate of 127. 2. Amniotic fluid index is 15.5 cm. Electronically authenticated by: ALETHA GORMAN Date: 10/30/2023 12:44
--- NOTE | 2023-10-30 10:45 | US_ITS ---
The [address] [address] Patient Name: BENNETT EM MRN: [id number] date: 1995 Sex: F Assigned Patient Location: [facility] Current Patient Location: [facility] Accession/Order Number: [id number] Exam Date: 10/30/2023 11:15 Report Date: 10/30/2023 13:03 At the request of: JOCELINE VIVAR Procedure: US renal BI EXAM: Normal ultrasound HISTORY: . back pain patient is . COMPARISON: None. TECHNIQUE: Grayscale and color imaging was performed. FINDINGS: scanning of the filled bladder demonstrates no masses. Volume of the bladder was 62 mL. Right kidney was difficult to measure due to the patient's inability to roll or hold her breath. Right kidney measures approximately 8.1 x 3.9 x 5 cm. Color-flow is noted. Grossly no renal cortical masses or hydronephrosis. Left kidney measures 10.3 x 3.5 x 4.5 cm. Color-flow is noted. No solid renal cortical masses or hydronephrosis was noted. US/US renal BI Impression: 1. Normal-appearing left kidney. 2. Right kidney was difficult to image. Right kidney is grossly unremarkable. 3. The bladder is grossly unremarkable. Bladder volume was 62 mL. Electronically authenticated by: ALETHA GORMAN Date: 10/30/2023 13:03
--- NOTE | 2023-10-30 10:45 | US_ITS ---
[address] [address] Patient Name: BENNETT EM MRN: [id number] date: 1995 Sex: F Assigned Patient Location: [facility] Current Patient Location: Accession/Order Number: [id number] Exam Date: 10/30/2023 11:15 Report Date: 10/31/2023 12:13 At the request of: JOCELINE VIVAR Procedure: US OB placenta EXAMINATION: US OB placenta HISTORY: abdominal and back pain COMPARISON: Ultrasound OB biophysical profile 10/23/2023 FINDINGS: PLACENTA: Posterior-fundal. No abruption or subchorionic hematoma. HEART RATE: 127 bpm OTHER: Normal amniotic fluid volume, 15.5 cm. GA: 36 weeks 3 days MADIE: 11/24/2023 US/US OB placenta IMPRESSION: 1. Posterior placenta without abruption or subchorionic hematoma. Electronically authenticated by: HELENA CASTRO Date: 10/31/2023 12:13
[2023-10-30] MEDS: ACETAMINOPHEN 500 MG TABLET 1000 MG PO (11:04)
== END 2023-10-30 13:35 | disposition home or self-care (01) ==
LOC: FBC 09:42
PROVIDERS: Admitting Provider Obstetrics & Gynecology; Visit Provider Obstetrics & Gynecology
DX: O26.893 Other specified pregnancy related conditions, third trimester (principal); R10.9 Unspecified abdominal pain; M54.50 Low back pain, unspecified; Z3A.36 36 weeks gestation of pregnancy
CPT/HCPCS: 76775; 76815; 81003; 84112; G0378; G0379

== ENCOUNTER 2023-10-31 07:15 | Outpatient (OUT) | payer OTHER, SELFPAY ==
--- OUTSIDE RECORDS SUMMARY | 2023-10-31 07:18 | XMS_ITS | CCD ---
Author Organization [facility] Care Team Providers Care Hardware Sales Assistant Name Role Phone Bryce De La Garza Admitting Physician Unavailable Bryce De La Garza Attending Physician Unavailable NON, STAFF Primary Care Physician Unavailab Savage Roman Rounding Physician Unavailable FEI LOO Admitting Unavailable FEI LOO Attending Unavailable Unavailable Primary Care Provider UnavailKia Jeffrey Primary Care Provider Unavailable Primary Care Provider UnavailKia Jeffrey CNP Primary Care Provider [phone] KIA SHARMA Referring Unavailable NO FAMILY, PHYSICIAN Primary Care Provider Unava DO Ed Hoover Emergency Provider MD Govind Feliberto Admit Provider [phone] MD Feliberto Faust Attending Provider Unavailable [...] VANEGAS Admitting Unavailable D'ABREAU, JAGDEEP Attending Unavailable EDTIH, KIA Primary Care Unavailable FERNANDA VIPIN Admitting [...] mg Start: 05-27-2020 take 2 tablets by [facility] every six hours as needed for [...] pain 10 tablet 0 10/14/2020 10/17/2020 Active [id number] 200 actuat albuterol 0.09 mg/actuat metered dose [...] Routineon 2023 Bilirubin, SemiQt,Ur Negative Normal NEG [facility] Comment on above: Performed By: #### U A #### [facility] [address] [place] [address] [place] [address] Manager Lsw: Hayden Cartagena MD Blood, Urine Negative Normal NEG [facility] Comment on above: Performed By: #### U A #### [facility] [address] [place] [address] Manager Lsw: Hayden Cartagena MD Clarity (U) Clear Normal CLEAR [facility] Comment on above: Performed By: #### U A #### [facility] [address] [place], [place] [id number] Manager Lsw: Hyaden Cartagena MD Color (U) Yellow Normal YEL [facility] Comment on above: Performed By: #### U A #### [facility] [address] [place], [place] [phone] Manager Lsw: Hayden Cartagena MD Glucose Ql (U) Negative Normal NEG [facility] in [facility] Comment on above: Performed By: #### U A #### [facility] [address] [place] [address] [place], [place] [phone] Manager Lsw: Hayden Cartagena MD Ketones Ql (U) Negative Normal NEG [facility] in [facility] Comment on above: Performed By: #### U A #### [facility] [address] [place] [address] [place], [place] [phone] Manager Lsw: Hayden Cartagena MD Leukocyte esterase Test strip Ql (U) Negative Normal NEG [facility] Comment on above: Performed By: #### U A #### [facility] [address] [place] [address] Dr. [place], [place] [address] Manager Lsw: Hayden Cartagena MD Nitrite,Ur Negative Normal [facility] Comment on above: Performed By: #### U A #### [facility] [address] [place] [address] Dr. [place], [facility]83 Manager Lsw: Hayden Cartagena MD PH,Ur 6.0 Normal 5.0-9.0 [facility] Comment on above: Performed By: #### U A #### [facility] [address] [place] [address] [place]. [place], [place] [phone] Manager Lsw: Hayden Cartagena MD Protein Ql (U) Negative Normal NEG [facility] Comment on above: Performed By: #### U A #### [facility] [address] [place] [address] [place], [place] [phone] Manager Lsw: Hayden Cartagena MD Spec. Plains,Ur 1.020 Normal 1.010-1.020 [facility] Comment on above: Performed By: #### U A #### [facility] [address] [place] [address] Manager Lsw: Hayden Cartagena MD Urobilinogen,Ur Normal Normal 0.0-1.0 [facility] Comment on above: Performed By: #### U A #### [facility] [address] [place] [address] Manager Lsw: Hayden Cartagena MD Urinalysison 09-12-2023 Bilirubin Ql (U) Negative NEGATIVE [facility] Clarity (U) Clear Clear [facility] Color (U) Yellow Yellow [facility] Glucose Test strip (U) [Mass/Vol] Negative NEGATIVE mg/dL [facility] Hemoglobin Auto test strip Ql (U) Negative NEGATIVE [facility] Interpretation and review of laboratory results Abnormal [facility] Ketones (U) [Mass/Vol] Negative NEGAT [place] mg/dL [facility] Leukocyte esterase Test strip Ql (U) Negative NEGATIVE [facility] Nitrite Ql (U) Negative NEGATIVE [facility] pH (U) 6.0 [pH] 5.0 - 9.0 [facility] Protein (U) [Mass/Vol] Negative NEGAT [place] mg/dL [facility] Specific gravity (U) [Rel density] Low 1.010 - 1.020 [facility] Urobilinogen Qn (U) Normal 0.0 - 1. 0 EU/dL [facility] Urinalysis, Routineon 2023 Bilirubin, SemiQt,Ur Negative Normal NEG [facility] Comment on above: Performed By: #### U A #### [facility] [address] [place] [address] Manager Lsw: Hayden Cartagena MD Blood, Urine Negative Normal NEG [facility] Comment on above: Performed By: #### U A #### [facility] [address] [place] [address] [place]. [place], [place] [phone] Manager Lsw: Hayden Cartagena MD Clarity (U) Clear Normal CLEAR [facility] Comment on above: Performed By: #### U A #### [facility] [address] [place] [address] [place]. [place], [place] [phone] Manager Lsw: Hayden Cartagena MD Color (U) Yellow Normal YEL [facility] Comment on above: Performed By: #### U A #### [facility] [address] [place] [address] [place], [place] [phone] Manager Lsw: Hayden Cartagena MD Glucose Ql (U) Negative Normal NEG [facility] in [facility] Comment on above: Performed By: #### U A #### [facility] [address] [place] [address] [place]. [place], [place] [phone] Manager Lsw: Hayden Cartagena MD Ketones Ql (U) Negative Normal NEG [facility] Comment on above: Performed By: #### U A #### [facility] [address] [place] [address] [place], [place] [phone] Manager Lsw: Hayden Cartagena MD Leukocyte esterase Test strip Ql (U) Negative Normal NEG [facility] Comment on above: Performed By: #### U A #### [facility] [address] [place] [address] [place], [place] [phone] Manager Lsw: Hayden Cartagena MD Nitrite,Ur Negative Normal NEG [facility] Comment on above: Performed By: #### U A #### [facility] [address] [place] [address] [place], [place] [phone] Manager Lsw: Hayden Cartagena MD PH,Ur 6.0 Normal 5.0-9.0 [facility] Comment on above: Performed By: #### U A #### [facility] [address] [place] [address] [place]. [place], [place] [phone] Manager Lsw: Hayden Cartagena MD Protein Ql (U) Negative Normal NEG [facility] Comment on above: Performed By: #### U A #### [facility] [address] [place] [address] Manager Lsw: Hayden Cartagena MD Spec. [place],Ur <1.005 Low 1.010-1.020 [facility] Comment on above: Performed By: #### U A #### [facility] [address] [place] [address] Manager Lsw: Hayden Cartagena MD Urobilinogen,Ur Normal Normal 0.0-1.0 [facility] Comment on above: Performed By: #### U A #### [facility] [address] [place], [place] 7602383 Manager Lsw: Hayden Cartagena MD Glucose, Whole Bloodon 09-03 Glucose [Mass/Vol] 160 mg/dL High 74-100 [facility] Urinalysis, Routineon 2023 Bilirubin, SemiQt,Ur Negative Normal NEG [facility] Comment on above: Performed By: #### U MICAO, UA #### [address] [place], [place] [phone] Manager Lsw: Hayden Cartagena MD Blood, Urine Negative Normal NEG [facility] Comment on above: Performed By: #### U MICAO, UA #### [facility] [address] [place] [address] Manager Lsw: Hayden Cartagena MD Clarity (U) Clear Normal CLEAR [facility] Comment on above: Performed By: #### U MICAO, UA #### [facility] [address] [place] [address] Manager Lsw: Hayden Cartagena MD Color (U) Yellow Normal YEL [facility] Comment on above: Performed By: #### U MICAO, UA #### [facility] [address] [place], [place] 4945983 Manager Lsw: Hayden Cartagena MD Glucose Ql (U) 1+ mg/dL Abnormal NEG [facility] in [facility] Comment on above: Performed By: #### U MICAO, UA #### [facility] [address] [place], [place] 1673583 Manager Lsw: Hayden Cartagena MD Ketones Ql (U) Negative Normal NEG [facility] Comment on above: Performed By: #### U MICAO, UA #### [address] [place], [place] 7654583 Manager Lsw: Hayden Cartagena MD Leukocyte esterase Test strip Ql (U) Negative Normal NEG [facility] Comment on above: Performed By: #### U MICAO, UA #### [address] [place], [facility]83 Manager Lsw: Hayden Cartagena MD Nitrite,Ur Negative Normal [facility] Comment on above: Performed By: #### U MICAO, UA #### [address] [place], [place] [phone] Manager Lsw: Hayden Cartagena MD PH,Ur 6.0 Normal 5.0-9.0 [facility] Comment on above: Performed By: #### U MICAO, UA #### [facility] [address] [place] [address] Dr. [place], [facility]83 Manager Lsw: Hayden Cartagena MD Protein Ql (U) Negative Normal NEG [facility] Comment on above: Performed By: #### U MICAO, UA #### [facility] [address] [place] [address] Dr. [place], [place] 9608783 Manager Lsw: Hayden Cartagena MD Spec. [place],Ur <1.005 Low 1.010-1.020 [facility] Comment on above: Performed By: #### U MICAO, UA #### [facility] [address] [place], [place] [phone] Manager Lsw: Hayden Cartagena MD Urobilinogen,Ur Normal Normal 0.0-1.0 [facility] Comment on above: Performed By: #### U MICAO, UA #### [facility] [address] [place], [place] [phone] Manager Lsw: Hayden Cartagena MD Urinalysis,Microon Bacteria TRACE Abnormal NONE [facility] Comment on above: Performed By: #### U MICAO, UA #### [facility] [address] [place], [place] 9151983 Manager Lsw: Hayden Cartagena MD Epithelial cells LM Ql (Urine sed) 5 TO 10 Normal 0-25 [facility] Comment on above: Performed By: #### U MICAO, UA #### [facility] [address] [place], [place] 0199083 Manager Lsw: Hayden Cartagena MD Urine RBC's None Normal 0-2 [facility] Comment on above: Performed By: #### U MICAO, UA #### [facility] [address] [place] [address] Dr. [place], [place] [phone] Manager Lsw: Hayden Cartagena MD Urine WBC's None Normal 0-5 [facility] Comment on above: Performed By: #### U MICAO, UA #### [facility] [address] [place], [place] [phone] Manager Lsw: Hayden Cartagena MD Urinalysis, Routineon 2023 Bilirubin, SemiQt,Ur Negative Normal NEG [facility] Comment on above: Performed By: #### U A #### [facility] [address] [place] [address] Dr. [place], [place] [phone] Manager Lsw: Hayden Cartagena MD Blood, Urine Negative Normal NEG [facility] Comment on above: Performed By: #### U A #### [facility] [address] [place] [address] [place] [address] Manager Lsw: Hayden Cartagena MD Clarity (U) Clear Normal CLEAR [facility] Comment on above: Performed By: #### U A #### [facility] [address] [place] [address] [place], [place] [phone] Manager Lsw: Hayden Cartagena MD Color (U) Yellow Normal YEL [facility] Comment on above: Performed By: #### U A #### [facility] [address] [place] [address] [place], [place] 9292983 Manager Lsw: Hayden Cartaegna MD Glucose Ql (U) Negative Normal NEG [facility] in [facility] Comment on above: Performed By: #### U A #### [facility] [address] [place] [address] Dr. [place], [place] [phone] Manager Lsw: Hayden Cartagena MD Ketones Ql (U) Negative Normal NEG [facility] Comment on above: Performed By: #### U A #### [facility] [address] [place] [address] [place] [address] Manager Lsw: Hayden Cartagena MD Leukocyte esterase Test strip Ql (U) Negative Normal NEG [facility] Comment on above: Performed By: #### U A #### [facility] [address] [place] [address] Dr. [place], [place] 6563283 Manager Lsw: Hayden Cartagena MD Nitrite,Ur Negative Normal NEG [facility] Comment on above: Performed By: #### U A #### [facility] [address] [place] [address] [place]. [place], [place] [phone] Manager Lsw: Hayden Cartagena MD PH,Ur 6.0 Normal 5.0-9.0 [facility] Comment on above: Performed By: #### U A #### [facility] [address] [place] [address] Dr. [place], [place] 9091183 Manager Lsw: Hayden Cartagena MD Protein Ql (U) Negative Normal NEG [facility] Comment on above: Performed By: #### U A #### [facility] [address] [place] [address] Manager Lsw: Hayden Cartagena MD Spec. Plains,Ur <1.005 Low 1.010-1.020 [facility] Comment on above: Performed By: #### U A #### [facility] [address] [place] [address] Manager Lsw: Hayden Cartagena MD Urobilinogen,Ur Normal Normal 0.0-1.0 [facility] Comment on above: Performed By: #### U A #### [facility] [address] [place] [address] Manager Lsw: Hayden Cartagena MD Microscopic Urinalysison Bacteria LM Ql (Urine sed) 1+ Abnormal None [facility] Epithelial cells LM.HPF (Urine sed) [#/Area] 0 TO 2 [facility] Interpretation and review of laboratory results Abnormal [facility] RBC LM.HPF (Urine sed) [#/Area] None [facility] WBC LM.HPF (Urine sed) [#/Area] None [facility] Urinalysison 08-24-2023 Bilirubin Ql (U) Negative NEGATIVE [facility] Clarity (U) Clear Clear [facility] Color (U) Yellow Yellow [facility] Glucose Test strip (U) [Mass/Vol] 1+ Abnormal NEGATIVE mg/dL [facility] Hemoglobin Auto test strip Ql (U) Negative NEGATIVE [facility] Interpretation and review of laboratory results Abnormal [facility] Ketones (U) [Mass/Vol] Negative NEGAT [place] mg/dL [facility] Leukocyte esterase Test strip Ql (U) Negative NEGATIVE [facility] Nitrite Ql (U) Negative NEGATIVE [facility] pH (U) 6.0 [pH] 5.0 - 9.0 [facility] Protein (U) [Mass/Vol] Negative NEGAT [place] mg/dL [facility] Specific gravity (U) [Rel density] Low 1.010 - 1.020 [facility] Urobilinogen Qn (U) Normal 0.0 - 1. 0 EU/dL [facility] Urinalysis, Routineon 2023 Bilirubin, SemiQt,Ur Negative Normal NEG [facility] Comment on above: Performed By: #### U RC #### [address] [address] Manager Lsw: Claude Gonzalez MD [address] [place] [address] Manager Lsw: Hayden Cartagena MD Blood, Urine Negative Normal [facility] Comment on above: Performed By: #### U RC #### [address] [address] Manager Lsw: Claude Gonzalez MD [address] [place] [id number] Manager Lsw: Hayden Cartagena MD Clarity (U) Clear Normal CLEAR [facility] Comment on above: Performed By: #### U RC #### [address] [address] Manager Lsw: Claude Gonzalez MD [address] [place] [phone] Manager Lsw: Hayden Cartagena MD Color (U) Yellow Normal YEL [facility] Comment on above: Performed By: #### U RC #### [address] [address] Manager Lsw: Claude Gonzalez MD [facility] [address] [place] [address] [place] [address] Manager Lsw: Hayden Cartagena MD Glucose Ql (U) 1+ mg/dL Abnormal NEG [facility] Comment on above: Performed By: #### U RC #### [facility] [address] [place] [address] Manager Lsw: Claude Gonzalez MD [facility] [address] [place] [address] Dr. [place], [place] 9091683 Manager Lsw: Hayden Cartagena MD Ketones Ql (U) Negative Normal NEG [facility] in [facility] Comment on above: Performed By: #### U RC #### [address] [address] Manager Lsw: Claude Gonzalez MD [facility] [address] [place] [address] Dr. [place], [place] 3988583 Manager Lsw: Hayden Cartagena MD Leukocyte esterase Test strip Ql (U) Negative Normal NEG [facility] Comment on above: Performed By: #### U RC #### [address] [address] Manager Lsw: Claude Gonzalez MD [facility] [address] [place] [address] [place] [address] Manager Lsw: Hayden Cartagena MD Nitrite,Ur Negative Normal [facility] Comment on above: Performed By: #### U RC #### [address] [address] Manager Lsw: Claude Gonzalez MD [facility] [address] [place] [address] Dr. [place], [place] 5286783 Manager Lsw: Hayden Cartagena MD PH,Ur 6.0 Normal 5.0-9.0 [facility] Comment on above: Performed By: #### U RC #### [address] [address] Manager Lsw: Claude Gonzalez MD [facility] [address] [place] [address] [place] [address] Manager Lsw: Hayden Cartagena MD Protein Ql (U) Negative Normal NEG [facility] Comment on above: Performed By: #### U RC #### [place] [address] [place] [address] Manager Lsw: Claude Gonzalez MD [facility] [address] [place] [address] Dr. [place] [phone] Manager Lsw: Hayden Cartagena MD Spec. Plains,Ur <1.005 Low 1.010-1.020 [facility] Comment on above: Performed By: #### U RC #### [address] [address] Manager Lsw: Claude Gonzalez MD [facility] [address] [place] [address] Dr. [place] [phone] Manager Lsw: Hayden Cartagena MD Urobilinogen,Ur Normal Normal 0.0-1.0 [facility] Comment on above: Performed By: #### U RC #### [address] [address] Manager Lsw: Claude Gonzalez MD [facility] [address] [place] [address] Dr. [place] [phone] Manager Lsw: Hayden Cartagena MD Urinalysis,Microon 4 Bacteria 1+ Abnormal NONE [facility] Comment on above: Performed By: #### U RC #### [address] [address] Manager Lsw: Claude Gonzalez MD [facility] [address] [place] [address] [place] [address] Manager Lsw: Hayden Cartagena MD Epithelial cells LM Ql (Urine sed) 0 TO 2 Normal 0-25 [facility] Comment on above: Performed By: #### U RC #### [address] [address] Manager Lsw: Claude Gonzalez MD [facility] [address] [place] [address] Dr. [place] [phone] Manager Lsw: Hayden Cartagena MD Urine RBC's None Normal 0-2 [facility] Comment on above: Performed By: #### U RC #### [facility] [address] [place] [address] Manager Lsw: Claude Gonzalez MD [facility] [address] [place] [address] [place] [address] Manager Lsw: Hayden Cartagena MD Urine WBC's None Normal 0-5 [facility] Comment on above: Performed By: #### U RC #### [facility] [address] [place] [address] Manager Lsw: Claude Gonzalez MD [address] [place] [address] Manager Lsw: Hayden Cartagena MD Cult,Urineon 07-01-2023 Cult,Urine Specimen Description .CLEAN CATCH URINE Culture NO SIGNIFICANT GROWTH Report Status FINAL 07/01/2023 Normal [facility] Comment on above: Performed By: #### U RC #### [facility] [address] [place] [address] Manager Lsw: Claude Gonzalez MD [address] [place] [address] Manager Lsw: Hayden Cartagena MD Urinalysis w/ Microon 2023 Bilirubin, SemiQt,Ur Negative Normal NEG [facility] Comment on above: Performed By: #### U AMIC #### [facility] [address] [place] [address] [place] [address] Manager Lsw: Hayden Cartagena MD Blood, Urine Negative Normal NEG [facility] Comment on above: Performed By: #### U AMIC #### [address] [place] [address] Manager Lsw: Hayden Cartagena MD Clarity (U) Clear Normal CLEAR [facility] Comment on above: Performed By: #### U AMIC #### [facility] [address] [place], [place] [phone] Manager Lsw: Hayden Cartagena MD Color (U) Yellow Normal YEL [facility] Comment on above: Performed By: #### U AMIC #### [facility] [address] [place], [place] 5805683 Manager Lsw: Hayden Cartagena MD Epithelial cells LM Ql (Urine sed) 2 TO 5 Normal 0-25 [facility] Comment on above: Performed By: #### U AMIC #### [facility] [address] [place], [place] 9345983 Manager Lsw: Hayden Cartagena MD Glucose Ql (U) Negative Normal NEG [facility] in [facility] Comment on above: Performed By: #### U AMIC #### [facility] [address] [place] [address] [place], [place] [phone] Manager Lsw: Hayden Cartagena MD Ketones Ql (U) Negative Normal NEG [facility] Comment on above: Performed By: #### U AMIC #### [facility] [address] [place] [address] [place]. [place], [place] [phone] Manager Lsw: Hayden Cartagena MD Leukocyte esterase Test strip Ql (U) Negative Normal NEG [facility] Comment on above: Performed By: #### U AMIC #### [facility] [address] [place], [place] 9231883 Manager Lsw: Hayden Cartagena MD Nitrite,Ur Negative Normal NEG [facility] [facility] Comment on above: Performed By: #### U AMIC #### [facility] [address] [place], [place] [id number] Manager Lsw: Hayden Cartagena MD PH,Ur 6.0 Normal 5.0-9.0 [facility] Comment on above: Performed By: #### U AMIC #### [facility] [address] [place], [place] [phone] Manager Lsw: Hayden Cartagena MD Protein Ql (U) Negative Normal NEG [facility] Comment on above: Performed By: #### U AMIC #### [facility] [address] [place] [address] Manager Lsw: Hayden Cartagena MD Spec. [place],Ur 1.010 Normal 1.010-1.020 [facility] Comment on above: Performed By: #### U AMIC #### [facility] [address] [place] [phone] Manager Lsw: Hayden Cartagena MD Urine RBC's None Normal 0-2 [facility] Comment on above: Performed By: #### U AMIC #### [address] [place] [phone] Manager Lsw: Hayden Cartagena MD Urine WBC's None Normal 0-5 [facility] Comment on above: Performed By: #### U AMIC #### [facility] [address] [place] [address] Dr[address] [place], [place] [phone] Manager Lsw: Hayden Cartagena MD Urobilinogen,Ur Normal Normal 0.0-1.0 [facility] Comment on above: Performed By: #### U AMIC #### [address] [place], [place] [phone] Manager Lsw: Hayden Cartagena MD Cult,Urineon 05-03-2023 Cult,Urine Specimen [...] Tobramycin <=1 SUSCEPTIBLE Trimethoprim/Sulfa <=20 SUSCEPTIBLE Susceptible [facility] Comment on above: Performed By: #### U RC #### [address] [place] [address] Manager Lsw: Claude Gonzalez MD [facility] [address] [place] [address] [place]. [place], [place] [phone] Manager Lsw: Hayden Cartagena MD HIV Ag/Abon 05-02-2023 HIV Ag/Ab Non-Reactive Normal [facility] Comment on above: Result Comment: No l aboratory evidence of HIV infection. If acute HIV infection is suspected, consider testing for HIV-1 RNA. Performed By: #### U RC #### [address] [address] Manager Lsw: Claude Gonzalez MD [address] [place] [address] Manager Lsw: Hayden Cartagena MD T.pallidum Ab Screenon 05-01 T.pallidum Ab Screen Non-Reactive Normal NR [facility] Comment on above: Result Comment: T. pallidum antibodies are not detected. There is no serological evidence of infection with T. pallidum (early primary syphilis cannot be excluded). Retest in 2-4 weeks if syphilis is clinically suspect. Performed By: #### U RC #### [address] [address] Manager Lsw: Claude Gonzalez MD [facility] [address] [place] [address] [place] [address] Manager Lsw: Hayden Cartagena MD CBC with Auto Differentialon 05-01-2023 Basophils (Bld) [#/Vol] 0.03 10*3/uL [facility] Basophils/100 WBC (Bld) 0 % 0 - 2 % [facility] Eosinophils (Bld) [#/Vol] [facility] Eosinophils/100 WBC (Bld) 0 % Low 1 - 4 % [facility] Erythrocyte distribution width (RBC) [Ratio] 12.2 % 11.8 - 14.4 % [facility] Hematocrit (Bld) [Volume fraction] 36.2 % Low 36.3 - 47.1 % [facility] Hemoglobin (Bld) [Mass/Vol] 12.1 g/dL 11.9 - 15.1 g/dL [facility] Immature granulocytes (Bld) [#/Vol] [facility] Immature granulocytes/100 WBC (Bld) 0 % 0 [facility] Interpretation and review of laboratory results Abnormal [facility] Lymphocytes/100 WBC (Bld) 19 % Low 24 - 43 % [facility] Lymphocytes/100 WBC (Bld) 1.62 % [facility] MCH (RBC) [Entitic mass] 32.1 pg 25.2 - 33.5 pg [facility] MCHC (RBC) [Mass/Vol] 33.4 g/dL 28.4 - 34.8 g/dL [facility] MCV (RBC) [Entitic vol] 96.0 fL 82.6 - 102.9 fL [facility] Monocytes/100 WBC (Bld) 6 % 3 - 12 % [facility] Monocytes/100 WBC (Bld) 0.51 % [facility] Neutrophils/100 WBC (Bld) 75 % High 36 - 65 % [facility] Nucleated RBC/100 WBC (Bld) [Ratio] 0.0 % 0.0 per 100 WBC [facility] Platelet mean volume (Bld) [Entitic vol] 10.3 fL 8.1 - 13.5 fL [facility] Platelets (Bld) [#/Vol] 201 10*3/uL [facility] RBC (Bld) [#/Vol] 3.77 10*6/uL Low 3.95 - 5.1 1 m/uL [facility] Segmented neutrophils/100 WBC (Bld) 6.24 % [facility] WBC other (Bld) [#/Vol] 8.4 B ON [facility] CBC with Diffon 05-01-2023 Abs. Basophil 0.03 k/uL Normal 0.00-0.20 [facility] Comment on above: Performed By: #### C DP #### [address] [place] [address] Manager Lsw: Hayden Cartagena MD #### LISA, HIVCMB, AHCV, TREP, GLYHGB, HBS #### [address] [address] Manager Lsw: Claude Gonzalez MD Abs. Eosinophil <0.03 Normal 0.00-0.44 [facility] Comment on above: Performed By: #### C DP #### [address] [place] [address] Manager Lsw: Hayden Cartagena MD #### LISA, HIVCMB, AHCV, TREP, GLYHGB, HBS #### [place] [address] Manager Lsw: Claude Gonzalez MD Abs.Imm.Granulocyte <0.03 Normal 0.00-0.30 [facility] Comment on above: Performed By: #### C DP #### [address] [place] [address] Manager Lsw: Hayden Cartagena MD #### LISA, HIVCMB, AHCV, TREP, GLYHGB, HBS #### [place] [address] Manager Lsw: Claude Gonzalez MD Abs.Neutrophil (Seg) 6.24 k/uL Normal 1.50-8.[address] [facility] Comment on above: Performed By: #### C DP #### [address] [place] [phone] Manager Lsw: Hayden Cartagena MD #### LISA, HIVCMB, AHCV, TREP, GLYHGB, HBS #### [place] [address] Manager Lsw: Claude Gonzalez MD Basophils/100 WBC (Bld) 0 % Normal 0-2 M [facility] Comment on above: Performed By: #### C DP #### [facility] [address] [place] [address] Dr. [place] [phone] Manager Lsw: Hayden Cartagena MD #### LISA, HIVCMB, AHCV, TREP, GLYHGB, HBS #### [address] [phone] Manager Lsw: Claude Gonzalez MD Eosinophils/100 WBC (Bld) 0 % Low 1-4 [facility] Comment on above: Performed By: #### C DP #### [address] [place] [phone] Manager Lsw: Hayden Cartagena MD #### LISA, HIVCMB, AHCV, TREP, GLYHGB, HBS #### [address] [phone] Manager Lsw: Claude Gonzalez MD Erythrocyte distribution width (RBC) [Ratio] 12.2 % Normal 11.8-14.4 [facility] Comment on above: Performed By: #### C DP #### [address] [place] [phone] Manager Lsw: Hayden Cartagena MD #### LISA, HIVCMB, AHCV, TREP, GLYHGB, HBS #### [address] [phone] Manager Lsw: Claude Gonzalez MD Hematocrit (Bld) [Volume fraction] 36.2 % Low 36.3-47.1 [facility] Comment on above: Performed By: #### C DP #### [facility] [address] [place] [address] Dr. [place] [phone] Manager Lsw: Hayden Cartagena MD #### LISA, HIVCMB, AHCV, TREP, GLYHGB, HBS #### [address] [place] [address] Manager Lsw: Claude Gonzalez MD Hemoglobin (Bld) [Mass/Vol] 12.1 g/dL Normal 11.9-15.1 [facility] Comment on above: Performed By: #### C DP #### [address] [place] [address] Manager Lsw: Hayden Cartagena MD #### LISA, HIVCMB, AHCV, TREP, GLYHGB, HBS #### [place] [address] Manager Lsw: Claude Gonzalez MD Immature granulocytes/100 WBC (Bld) 0 % Normal 0 [facility] Comment on above: Performed By: #### C DP #### [address] [place] [phone] ( Manager Lsw: Hayden Cartagena MD #### LISA, HIVCMB, AHCV, TREP, GLYHGB, HBS #### [place] [address] Manager Lsw: Claude Gonzalez MD Lymphocytes (Bld) [#/Vol] 1.62 10*3/uL Normal 1.10-3.70 [facility] Comment on above: Performed By: #### C DP #### [address] [place] [phone] Manager Lsw: Hayden Cartagena MD #### LISA, HIVCMB, AHCV, TREP, GLYHGB, HBS #### [place] [phone] Manager Lsw: Claude Gonzalez MD Lymphocytes/100 WBC (Bld) 19 % Low 24-43 [facility] Comment on above: Performed By: #### C DP #### [address] [place] [phone] Manager Lsw: Hayden Cartagena MD #### LISA, HIVCMB, AHCV, TREP, GLYHGB, HBS #### [address] [phone] Manager Lsw: Claude Gonzalez MD MCH (RBC) [Entitic mass] 32.1 pg Normal 25.2-33.5 [facility] Comment on above: Performed By: #### C DP #### [address] [place] [phone] Manager Lsw: Hayden Cartagena MD #### LISA, HIVCMB, AHCV, TREP, GLYHGB, HBS #### [place] [phone] Manager Lsw: Claude Gonzalez MD MCHC (RBC) [Mass/Vol] 33.4 g/dL Normal 28.4-34.8 [facility] Comment on above: Performed By: #### C DP #### [address] [place] [phone] Manager Lsw: Hayden Cartagena MD #### LISA, HIVCMB, AHCV, TREP, GLYHGB, HBS #### [place] [phone] Manager Lsw: Claude Gonzalez MD MCV (RBC) [Entitic vol] 96.0 fL Normal 82.6-102.9 M [facility] Comment on above: Performed By: #### C DP #### [address] [place] [phone] Manager Lsw: Hayden Cartagena MD #### LISA, HIVCMB, AHCV, TREP, GLYHGB, HBS #### [address] [phone] Manager Lsw: Claude Gonzalez MD Monocytes (Bld) [#/Vol] 0.51 10*3/uL Normal 0.10-1.20 [facility] Comment on above: Performed By: #### C DP #### [facility] [address] [place] [address] Dr. [place] [phone] Manager Lsw: Hayden Cartagena MD #### LISA, HIVCMB, AHCV, TREP, GLYHGB, HBS #### [address] [phone] Manager Lsw: Claude Gonzalez MD Monocytes/100 WBC (Bld) 6 % Normal 3-12 M [facility] Comment on above: Performed By: #### C DP #### [address] [place] [phone] Manager Lsw: Hayden Cartagena MD #### LISA, HIVCMB, AHCV, TREP, GLYHGB, HBS #### [place] [phone] Manager Lsw: Claude Gonzalez MD Neutrophil (Seg) 75 % High 36-65 [facility] Comment on above: Performed By: #### C DP #### [address] [place] [phone] Manager Lsw: Hayden Cartagena MD #### LISA, HIVCMB, AHCV, TREP, GLYHGB, HBS #### [place] [phone] Manager Lsw: Claude Gonzalez MD NRBC Automated 0.0 per 100 WBC Normal 0.0 [facility] Comment on above: Performed By: #### C DP #### [facility] [address] [place] [address] Dr. [place] [phone] Manager Lsw: Hayden Cartagena MD #### LISA, HIVCMB, AHCV, TREP, GLYHGB, HBS #### [address] [address] Manager Lsw: Claude Gonzalez MD Platelet mean volume (Bld) [Entitic vol] 10.3 fL Normal 8.1-13.5 [facility] Comment on above: Performed By: #### C DP #### [address] [place] [phone] Manager Lsw: Hayden Cartagena MD #### LISA, HIVCMB, AHCV, TREP, GLYHGB, HBS #### [address] [place] [address] Manager Lsw: Claude Gonzalez MD Platelets (Bld) [#/Vol] 201 10*3/uL Normal 138-453 [facility] Comment on above: Performed By: #### C DP #### [address] [place] [phone] Manager Lsw: Hayden Cartagena MD #### LISA, HIVCMB, AHCV, TREP, GLYHGB, HBS #### [address] [address] Manager Lsw: Claude Gonzalez MD RBC (Bld) [#/Vol] 3.77 10*6/uL Low 3.95-5.11 [facility] Comment on above: Performed By: #### C DP #### [address] [place] [phone] Manager Lsw: Hayden Cartagena MD #### LISA, HIVCMB, AHCV, TREP, GLYHGB, HBS #### [address] [address] Manager Lsw: Claude Gonzalez MD WBC (Bld) [#/Vol] 8.4 10*3/uL Normal 3.5-11.3 [facility] Comment on above: Performed By: #### C DP #### [address] [place] [phone] Manager Lsw: Hayden Cartagena MD #### LISA, HIVCMB, AHCV, TREP, GLYHGB, HBS #### [address] [place] [address] Manager Lsw: Claude Gonzalez MD Hemoglobin A1Con 05-01-2023 Average glucose Estimated from glycated hemoglobin (Bld) [Mass/Vol] 85 mg/dL [facility] Comment on above: The ADA and AACC rec ommend providing the estimated average glucose result to permit better patient understanding of their HBA1c result. HbA1c (Bld) [Mass fraction] 4.6 % 4.0 - 6.0 % [facility] Glucose [Mass/Vol] 85 mg/dL Normal [facility] Comment on above: Result Comment: The ADA and AACC recommend providing the estimated average glucose result to permit better patient understanding of their HBA1c result. Performed By: #### U RC #### [address] [address] Manager Lsw: Claude Gonzalez MD [address] [place], [place] [phone] Manager Lsw: Hayden Cartagena MD HbA1c (Bld) [Mass fraction] 4.6 % Normal 4.0-6.0 [facility] Comment on above: Performed By: #### U RC #### [address] [address] Manager Lsw: Claude Gonzalez MD [address] [place], [place] [phone] Manager Lsw: Hayden Catragena MD Hep B Surf Agon 5 Hep B Surf Ag Non-Reactive Normal NR [facility] Comment on above: Performed By: #### U RC #### [address] [address] Manager Lsw: Claude Gonzalez MD [address] [place] [address] Manager Lsw: Hayden Cartagena MD Hep C Abon 05-01-2023 Hep C Ab Non-Reactive Normal NR [facility] Comment on above: Result Comment: The [...] PCR. Performed By: #### C DP #### [facility] [address] [place] [address] [place] [address] Manager Lsw: Hayden Cartagena MD #### LISA, HIVCMB, AHCV, TREP, GLYHGB, HBS #### [facility] [address] [place] [address] Manager Lsw: Claude Gonzalez MD Hepatitis B Surface Antigeno n 05-01-2023 HBV surface Ag IA Ql Non-Reactive NONREACTIVE [facility] Hepatitis C Antibodyon 04-30 HCV Ab IA Ql Non-Reactive NONREACTIVE [facility] Comment on above: The hepatitis C [...] RNA by PCR. No Panel Informationon 04-30 [facility] Rubella Ab, IgGon 05-01-2023 Rubella Ab, IgG >500.0 Normal [facility] Comment on above: Result Comment: REFERENCE RANGE: <5.0 NON-REACTIVE (non-immune) 5.0 TO 9.9 EQUIVOCAL >=10.0 REACTIVE (immune) Performed By: #### U RC #### [facility] [address] [place], [place] [phone] Manager Lsw: Claude Gonzalez MD [facility] [address] [place] [address] [place] [address] Manager Lsw: Hayden Cartagena MD Rubella antibody, IgGon Rubella virus IgG IA Ql IU/mL [facility] Comment on above: REFERENCE RANGE: <5.0 NON-REACTIVE (non-immune) 5.0 TO 9.9 EQUIVOCAL >=10.0 REACTIVE (immune) [facility] TYPE AND SCREENon 05-01-2023 ABO and Rh group Nom (Bld) Blood group O Rh(D) negative [facility] Blood Bank Sample Expiration 05/04/2023,2359 [facility] Blood group antibodies identified Nom Negative [facility] Type + Screenon 05-01-2023 Type + Screen Sample Expiration 05/04/2023,2359 ABO/Rh(D) O NEGATIVE Antibody Screen NEGATIVE Normal [facility] Comment on above: Performed By: #### T YS #### [facility] [address] [place] [address] [place] [address] Manager Lsw: Hayden Cartagena MD CBC with Auto Differentialon 08-03-2022 Basophils (Bld) [#/Vol] 0.04 10*3/uL [facility] Basophils/100 WBC (Bld) 0 % 0 - 2 % B [facility] Eosinophils (Bld) [#/Vol] [facility] Eosinophils/100 WBC (Bld) 0 % Low 1 - 4 % [facility] Erythrocyte distribution width (RBC) [Ratio] 12.2 % 11.8 - 14.4 % [facility] Hematocrit (Bld) [Volume fraction] 39.4 % 36.3 - 47.1 % [facility] Hemoglobin (Bld) [Mass/Vol] 13.2 g/dL 11.9 - 15.1 g/dL [facility] Immature granulocytes (Bld) [#/Vol] [facility] Immature granulocytes/100 WBC (Bld) 0 % 0 [facility] Interpretation and review of laboratory results Abnormal [facility] Lymphocytes/100 WBC (Bld) 17 % Low 24 - 43 % [facility] Lymphocytes/100 WBC (Bld) 1.86 % [facility] MCH (RBC) [Entitic mass] 32.1 pg 25.2 - 33.5 pg [facility] MCHC (RBC) [Mass/Vol] 33.5 g/dL 28.4 - 34.8 g/dL [facility] MCV (RBC) [Entitic vol] 95.9 fL 82.6 - 102.9 fL [facility] Monocytes/100 WBC (Bld) 4 % 3 - 12 % [facility] ON [facility] Monocytes/100 WBC (Bld) 0.42 % [facility] ON [facility] Neutrophils/100 WBC (Bld) 79 % High 36 - 65 % [facility] NRBC Automated 0.0 0.0 per 100 WBC [facility] Platelet mean volume (Bld) [Entitic vol] 10.5 fL 8.1 - 13.5 fL [facility] Platelets (Bld) [#/Vol] 213 10*3/uL [facility] RBC (Bld) [#/Vol] 4.11 10*6/uL 3.95 - 5.1 1 m/uL [facility] Segmented neutrophils/100 WBC (Bld) 8.49 % High [facility] WBC other (Bld) [#/Vol] 10.8 B ON [facility] CMPon 08-03-2022 Albumin [Mass/Vol] 4.6 g/dL 3.5 - 5.2 g/dL [facility] Albumin/Globulin [Mass ratio] 1.5 {ratio} 1.0 - 2.5 [facility] ALP [Catalytic activity/Vol] 79 U/L 35 - 104 U/L [facility] ALT [Catalytic activity/Vol] 9 U/L 5 - 33 U/L [facility] Anion gap [Moles/Vol] 11 mmol/L 9 - 17 mmol/L [facility] AST [Catalytic activity/Vol] 13 U/L NINF - 32 U/L [facility] Bilirubin [Mass/Vol] 1.1 mg/dL 0.3 - 1 .2 mg/dL [facility] Calcium [Mass/Vol] 10.0 mg/dL 8.6 - 10. 4 mg/dL [facility] Chloride [Moles/Vol] 104 mmol/L 98 - 10 7 mmol/L [facility] CO2 [Moles/Vol] 26 mmol/L 20 - 31 mmol/L [facility] Creatinine [Mass/Vol] 0.68 mg/dL 0.50 - 0.90 mg/dL [facility] GFR/1.73 sq M.predicted MDRD (S/P/Bld) [Vol rate/Area] - PINF [facility] Comment on above: These results are [...] [Mass/Vol] 90 mg/dL 70 - 99 mg/dL [facility] Interpretation and review of laboratory results Abnormal [facility] Potassium [Moles/Vol] 3.4 mmol/L Low 3.7 - 5.3 mmol/L [facility] Protein [Mass/Vol] 7.7 g/dL 6.4 - 8.3 g/dL [facility] Sodium [Moles/Vol] 141 mmol/L 135 - 144 mmol/L [facility] Urea nitrogen [Mass/Vol] 6 mg/dL 6 - 20 mg/dL [facility] Urea nitrogen/Creatinine [Mass ratio] 9 mg/mg 9 - [address] [facility] [address] ABDOMEN PELVIS WO CONTRAS T Additional [...] superficial soft tissues show no acute process. [facility] Cody Posey MD - 08/03/2022 EXAMINATION: CT [...] urinary tract calculi. 3. No bowel obstruction. [employer] Work Phone: Radiology Study observation (narrative) [employer] Work Phone: CT ABDOMEN PELVIS WO CONTRAS T Additional Contrast? NoneOrdered By: Cody Gregg on 08-03-2022 [employer] Work Phone: Microscopic Urinalysison Bacteria LM Ql (Urine sed) 4+ Abnormal None [employer] Epithelial cells LM.HPF (Urine sed) [#/Area] 10 TO 20 [employer] Interpretation and review of laboratory results Abnormal [employer] RBC LM.HPF (Urine sed) [#/Area] 10 TO 20 [employer] WBC LM.HPF (Urine sed) [#/Area] 20 TO 50 [employer] [facility] Urinalysis with Reflex to Cu ltureon 08-03-2022 Bilirubin Ql (U) Negative NEGATIVE [employer] Clarity (U) Cloudy Abnormal Clear [employer] Color (U) Yellow Yellow [employer] [facility] Glucose Test strip (U) [Mass/Vol] Negative NEGATIVE [employer] [facility] Hemoglobin Auto test strip Ql (U) 3+ Abnormal NEGATIVE [employer] Interpretation and review of laboratory results Abnormal [employer] Ketones (U) [Mass/Vol] Negative NEGATIVE [employer] Leukocyte esterase Test strip Ql (U) SMALL Abnormal NEGATIVE [employer] Nitrite Ql (U) Positive Abnormal NEGATIVE [employer] pH (U) 6.0 [pH] 5.0 - 9.0 [employer] Protein (U) [Mass/Vol] 2+ Abnormal NEGATIVE [employer] Specific gravity (U) [Rel density] 1.025 High 1.010 - 1.020 [facility] Urobilinogen Qn (U) Normal Normal [facility]WAT KAMARA [facility] hCG, quantitative, on 08-03-2022 hCG Quant NINF [facility] Comment on above: Non-preg premeno <=5 Postmeno <=8 Male <=3 If HCG results do not concur with clinical observations, additional testing to confirm results is recommended. SARWAT [facility] JASMINA DIGITAL DIAGNOSTIC BILATERALon 06-03-2022 Radiology Study observation (narrative) [facility]WAT MARROQUIN [facility] Work Phone: No Panel Informationon 06-03 1. Negative bilateral mammogram. 2. No evidence for a discrete abscess or cellulitis in the periareolar right breast, for which clinical follow-up is recommended. BI-RADS 2 BIRADS: BIRADS - CATEGORY 2 Benign Findings. OVERALL ASSESSMENT - BENIGN A letter of notification will be sent to the patient regarding the results. [employer] recommends annual mammograms for women 40 years and older. [facility] RIS CONSOLIDATED EXAMINATION: DIAGNOSTIC DIGITAL [...] InformationOrdered By: Matt Sharma on 06-03-2022 [facility] [employer] Work Phone: US BREAST LIMITED RIGHTon Radiology Study observation (narrative) SARWAT HOLDERO [facility] [employer] Work Phone: CBC with Auto Differentialon 04-24-2022 Absolute Eos # [facility] Absolute Immature Granulocyte 0.05 [facility] Absolute Lymph # 0.56 Low [facility] Absolute [place] # 0.78 [facility] RS [facility] Basophils (Bld) [#/Vol] 0.04 10*3/uL [facility] Basophils/100 WBC (Bld) 0 % 0 - 2 % B ON [facility] Eosinophils/100 WBC (Bld) 0 % Low 1 - 4 % [facility] Hematocrit (Bld) [Volume fraction] 43.7 % 36.3 - 47.1 % [facility] Hemoglobin (Bld) [Mass/Vol] 15.6 g/dL High 11.9 - 15.1 g/dL [facility] Immature granulocytes/100 WBC (Bld) 0 % 0 [facility] Interpretation and review of laboratory results Abnormal [facility] Lymphocytes/100 WBC (Bld) 4 % Low 24 - 43 % [facility] MCH (RBC) [Entitic mass] 33.1 pg 25.2 - 33.5 pg [facility] MCHC (RBC) [Mass/Vol] 35.7 g/dL High 28.4 - 34.8 g/dL [facility] MCV (RBC) [Entitic vol] 92.8 fL 82.6 - 102.9 fL [facility] Monocytes/100 WBC (Bld) 5 % 3 - 12 % B ON [facility] NRBC Automated 0.0 0.0 per 100 WBC [facility] Platelet distribution width (Bld) [Ratio] 12.3 % 11.8 - 14.4 % [facility] Platelet mean volume (Bld) [Entitic vol] 10.5 fL 8.1 - 13.5 fL [facility] Platelets (Bld) [#/Vol] 174 10*3/uL [facility] RBC (Bld) [#/Vol] 4.71 10*6/uL 3.95 - 5.1 1 m/uL [facility] Segmented neutrophils/100 WBC (Bld) 91 % High 36 - 65 % [facility] Segs Absolute 13.82 High [facility] WBC (Bld) [#/Vol] 15.3 10*3/uL High [facility] CMPon 04-24-2022 Albumin [Mass/Vol] 4.8 g/dL 3.5 - 5.2 g/dL [facility] Albumin/Globulin [Mass ratio] 1.6 {ratio} 1.0 - 2.5 [facility] ALP [Catalytic activity/Vol] 87 U/L 35 - 104 U/L [facility] ALT [Catalytic activity/Vol] 19 U/L 5 - 33 U/L [facility] Anion gap [Moles/Vol] 17 mmol/L 9 - 17 mmol/L [facility] AST [Catalytic activity/Vol] 23 U/L NINF - 32 U/L [facility] Bilirubin [Mass/Vol] 1.0 mg/dL 0.3 - 1 .2 mg/dL [facility] Calcium [Mass/Vol] 10.4 mg/dL 8.6 - 10. 4 mg/dL [facility] Chloride [Moles/Vol] 105 mmol/L 98 - 10 7 mmol/L [facility] CO2 [Moles/Vol] 19 mmol/L Low 20 - 31 mmol/L [facility] Creatinine [Mass/Vol] 0.84 mg/dL 0.50 - 0.90 mg/dL [facility] GFR/1.73 sq M.predicted MDRD (S/P/Bld) [Vol rate/Area] - PINF [facility] Comment on above: These results are [...] 151 mg/dL High 70 - 99 mg/dL [facility] [employer] Interpretation and review of laboratory results Abnormal [facility] [employer] Potassium [Moles/Vol] 3.9 mmol/L 3.7 - 5.3 mmol/L [facility] [employer] Protein [Mass/Vol] 7.8 g/dL 6.4 - 8.3 g/dL [facility] [employer] Sodium [Moles/Vol] 141 mmol/L 135 - 144 mmol/L [facility] Urea nitrogen [Mass/Vol] 9 mg/dL 6 - 20 mg/dL [facility] Urea nitrogen/Creatinine (Bld) [Mass ratio] 11 9 - [address] [facility] [address] [facility]BD[facility] PELVIS W IV CONTR AST [...] pathologic adenopathy. Bones/Soft Tissues: No acute abnormality [facility] Rogelio Huang MD - 04/24/2022 EXAMINATION: [...] Otherwise, no acute intra-abdominal or pelvic abnormality [employer] Work Phone: Radiology Study observation (narrative) [employer] Work Phone: CT ABDOMEN PELVIS W IV CONTR AST Additional Contrast? NoneOrdered By: Rogelio Lima on 04-24-2022 [employer] Work Phone: Lactic Acidon 04-24-2022 Lactate (P samantha) [Moles/Vol] 2.1 mmol/L 0.5 - 2.2 mmol/L [facility] Lipaseon 04-24-2022 Lipase [Catalytic activity/Vol] 24 U/L 13 - 60 U/L [facility] Microscopic Urinalysison Bacteria, UA 1+ Abnormal None [facility] Epithelial Cells UA 5 TO 10 [facility] Interpretation and review of laboratory results Abnormal [facility] Mucus, UA 1+ Abnormal None [facility] RBC clumps Auto (Urine sed) [#/Area] None [facility] WBC, UA 0 TO 2 [facility] No Panel Informationon 04-24 [facility] Urinalysison 04-24-2022 Bilirubin Urine Negative NEGATIVE [facility] Color, UA Yellow Yellow [facility] Glucose Auto test strip (U) [Mass/Vol] Negative NEGATIVE [facility] Interpretation and review of laboratory results Abnormal [facility] Ketones (U) [Mass/Vol] 2+ Abnormal NEGATIVE [facility] Leukocyte esterase Auto test strip Ql (U) Negative NEGATIVE [facility] Nitrite Auto test strip Ql (U) Negative NEGATIVE [facility] Protein (U) [Mass/Vol] 5.0 - 9.0 [facility] Protein (U) [Mass/Vol] Negative NEGATIVE [facility] [place], UA 1.010 1.010 - 1.020 B ON [facility] Turbidity UA SLIGHTLY CLOUDY Abnormal Clear [facility] Urine Hgb Negative NEGATIVE [facility] Urobilinogen, Urine Normal Normal [facility] , urineon 3 Beta HCG ( test) Ql (U) Negative NEGATIVE [facility] Comment on above: Specimens with hCG l evels near the threshold of the test (25 mIU/mL) may give a negative or indeterminate result. In such cases, another test should be performed with a new specimen in 48-72 hours. If early is suspected clinically in this setting, correlation with quantitative serum b-hCG level is suggested. [employer] has confirmed the use of plasma for this test. This has not been cleared or approved by the U.S. Food and Drug Administration. The FDA has determined that such clearance is not necessary. [facility] Cholesterol [Mass/volume] in Serum or PlasmaOrdered By: Feliberto Faust on 10-27-2021 Cholesterol [Mass/Vol] 102 mg/dL 140-200 [facility] Comment on above: Chol less than 200 m g/dl low risk Chol 201-239 mg/dl borderline risk Chol 240 mg/dl and greater high risk Cholesterol in LDL Calc [Mas s/Vol]Ordered By: Feliberto Faust on 10-27-2021 Cholesterol in LDL [Mass/Vol] 58 mg/dL 0-100 [facility] Comment on above: LDL ATP III CLASSIFI CATION LDL less than 100 mg/dL Optimal LDL 100-129 mg/dL Near or above optimal LDL 130-159 mg/dL Borderline high LDL 160-189 mg/dL High LDL greater than 189 mg/dL Very high Cholesterol in VLDL Calc [Ma ss/Vol]Ordered By: Feliberto Faust on 10-27-2021 Cholesterol in VLDL [Mass/Vol] 13 mg/dL [facility] ECG 12 lead ECGon 10-27-2021 ECG 12 lead ECG [facility] [address] Electrocardiograph Report Signed Patient: Bennett Vaughn MR#: [id number] 7 : 1995 Acct:[id number] Age/Sex: 26 / F ADM Date: 10/26/21 Loc: Room: [address] [place] [address] Type: DIS IN Attending Dr: Feliberto Faust [...] : 416 ms Sinus bradycardia with short AL Otherwise normal ECG When compared with ECG of 10-APR-2019 09:44, Vent. rate has decreased BY 29 BPM Confirmed by PAYAM LIVINGSTON DO ([id number]) on 10/27/2021 1:03:16 PM Referred By: Electronically Signed By:PAYAM LIVINGSTON DO Transcribed By: MUS Signed By Payam Livingston DO 10/27 1303 Normal [facility] Lipid Panelon 10-27-2021 Cholesterol [Mass/Vol] 102 mg/dL Low 140-200 [facility] Comment on above: Result Comment: Chol less than 200 mg/dl low risk Chol 201-239 mg/dl borderline risk Chol 240 mg/dl and greater high risk Performed By: #### L IPID, TSH3 wRFLX, [id number] #### [facility] [address] [place] [id number] [facility] Cholesterol in HDL [Mass/Vol] 30 mg/dL Low 35-85 [facility] Comment on above: Result Comment: HDL CHOL ATP-III CLASSIFICATION Cardiovascular Risk HDL > or equal to 60 mg/dL LOW HDL < 40 mg/dL HIGH Performed By: #### L IPID, TSH3 wRFLX, [id number] #### [facility] [address] [place] [id number] [facility] Cholesterol.total/Fanny sterol in HDL [Mass ratio] 3.4 {ratio} Normal <5.0 [facility] Comment on above: Performed By: #### L IPID, TSH3 wRFLX, [id number] #### [facility] [address] [place] [address] [place] LDL Cholesterol,Calculated 58 mg/dL Normal 0-100 [facility] Comment on above: Result Comment: LDL ATP III CLASSIFICATION LDL less than 100 mg/dL Optimal LDL 100-129 mg/dL Near or above optimal LDL 130-159 mg/dL Borderline high LDL 160-189 mg/dL High LDL greater than 189 mg/dL Very high Performed By: #### L IPID, TSH3 wRFLX, [id number] #### [facility] [address] [place] [address] [place] Triglyceride w/Reflex 68 mg/dL Normal 35-149 [facility] Comment on above: Result Comment: TRIG ATP III CLASSIFICATION TRIG less than 150 mg/dL Normal TRIG 150-199 mg/dL Borderline high TRIG 200-500 mg/dL High TRIG greater than 500 mg/dL Very high Standard traceable to the Center for Disease Conrtrol and Prevention (CDC) test method. Performed By: #### L IPID, TSH3 wRFLX, [id number] #### [facility] [address] VLDL CHOLESTEROL 13 mg/dL Normal [facility] Comment on above: Performed By: #### L IPID, TSH3 wRFLX, [id number] #### [facility] [address] No Panel InformationOrdered By: Feliberto Faust on 10-27-2021 25-Hydroxy Vitamin D Total 36.4 ng/mL 30-100 [facility] Comment on above: VITAMIN D STATUS 25( [...] Cholesterol in HDL [Mass/Vol] 30 mg/dL 35-85 [facility] Comment on above: HDL CHOL ATP-III CLA SSIFICATION Cardiovascular Risk HDL > or equal to 60 mg/dL LOW HDL < 40 mg/dL HIGH Serum or plasma total choles terol/high density lipoprotein (HDL) cholesterol mass ratOrdered By: Feliberto Faust on 10-27-2021 Cholesterol.total/Fanny sterol in HDL [Mass ratio] 3.4 {ratio} <5.0 [facility] TSH DL <= 0.005 mIU/L QnOrde red By: Feliberto Faust on 10-27-2021 TSH Qn 1.28 m[IU]/L 0.45-5.33 [facility] Thyroid Stim Hormone w/Rflxo n 10-27-2021 Thyroid Stim Hormone w/Rflx 1.28 u[iU]/mL Normal 0.45-5.33 [facility] Comment on above: Performed By: #### L IPID, TSH3 wRFLX, [id number] #### [facility] [address] [place] [id number] [facility] Triglyceride [Mass/volume] i n Serum or PlasmaOrdered By: Feliberto Faust on 10-27-2021 Triglyceride [Mass/Vol] 68 mg/dL 35-149 [facility] Comment on above: TRIG ATP III CLASSIF ICATION TRIG less than 150 mg/dL Normal TRIG 150-199 mg/dL Borderline high TRIG 200-500 mg/dL High TRIG greater than 500 mg/dL Very high Standard traceable to the Center for Disease Conrtrol and Prevention (CDC) test method. Vitamin D 25 Hydroxy Totalon 10-27-2021 Vitamin D 25 Hydroxy Total 36.4 ng/mL Normal 30-100 [facility] Comment on above: Result Comment: KELSEY MIN D STATUS 25(OH)VITAMIN D RANGE (ng/mL) Deficient <20 Insufficient 20 to <30 Sufficient 30 to 100 Reference: Kath MF,Ramón NC, Teetee DAVIS, et al. Evaluation,treatment, and prevention of vitamin D deficiency; an Endocrine Society clinical practice guideline. JCEM. 2010; 96(7):1911-30. PERFORMED BY: [place] [address] PATHOLOGIST FISHER PURSE SEINE JAMES MCNAIR M.D. Performed By: #### C BC, ETOH, CMP #### [facility] [address] [place] [id number] [facility] Albumin [Mass/volume] in Ser um or PlasmaOrdered By: Ed Amaral on 10-26-2021 Albumin [Mass/Vol] 4.0 g/dL 3.2-5.5 [facility] Amphetamine Screen Ql (U)Ord ered By: Ed Amaral on 10-26-2021 Amphetamines Ql (U) Negative Negative [facility] Automated erythrocytes count in urine sediment (number/area)Ordered By: Ed Amaral on 10-26-2021 RBC Auto (Urine sed) [#/Area] 0-1 [HPF] 0-4 [facility] Automated leukocytes count i n urine sediment (number/area)Ordered By: Ed Amaral on 10-26-2021 WBC Auto (Urine sed) [#/Area] 1-2 [HPF] 0-4 [facility] Automated urine color determ inationOrdered By: Ed Amaral on 10-26-2021 Color (U) Yellow Normal Yellow [facility] Comment on above: Order Comment: Name Collection Type:: Clean-Voided Midstream Performed By: #### S OFIANEG, URDS, ADDONUAPLUS, UHCG, COVID-19 FELI #### [facility] [address] Barbiturates [Presence] in U rineOrdered By: Ed Amaral on 10-26-2021 Barbiturates Ql (U) Negative Negative [facility] Basophils Auto (Bld) [#/Vol] Ordered By: Ed Amaral on 10-26-2021 Basophils (Bld) [#/Vol] 0.1 10*3/uL 0.0-0.2 [facility] Basophils/100 WBC Auto (Bld) Ordered By: Ed Amaral on 10-26-2021 Basophils/100 WBC (Bld) 0.8 % . F [facility] Benzodiazepines [Presence] i n UrineOrdered By: Ed Amaral on 10-26-2021 Benzodiazepines Ql (U) Negative Negative [facility] Bilirubin Test strip Ql (U)O rdered By: Ed Amaral on 10-26-2021 Bilirubin Ql (U) Negative Negative [facility] Blood hemoglobin measurement (mass/volume)Ordered By: Ed Amaral on 10-26-2021 Hemoglobin (Bld) [Mass/Vol] 13.3 g/dL 11.8-15.4 [facility] Blood leukocytes automated c ount (number/volume)Ordered By: Ed Amaral on 10-26-2021 WBC (Bld) [#/Vol] 10.2 10*3/uL 4.5-11.0 [facility] COVID-19 Antigenon 2 COVID-19 Antigen Healthcare Worker?: [...] developed and its performance characteristic determined by [employer] and validated at [facility]. This test has not been FDA cleared [...] for SARS Antigen by ERNESTO PERFORMED BY: [place] [address] PATHOLOGIST FISHER PURSE SEINE JAMES MCNAIR M.D. [facility] Comment on above: Performed By: #### S BALJINDER HOBSON, ADDONUAPLUS, UHCG, COVID-19 FELI #### [facility] [address] COVID-19 SOFIAOrdered By: Archie Amaral on 10-26-2021 SARS-CoV+SARS-CoV-2 (COVID-19) Ag IA.rapid Ql (Resp) Negative Negative [facility] Comment on above: This is a duplicate Feli SARS Antigen (ERNESTO) result to be used for statistical tracking purpose only. Cannabinoids [Presence] in U rine by Screen methodOrdered By: Ed Amaral on 10-26-2021 Cannabinoids Screen Ql (U) Positive Negative [facility] Comment on above: These are unconfirme d results and should not be used for legal purposes. Drug Cut-Off Concentration: AMPH 1000 ng/mL SANCHEZ 200 ng/mL RENZO 200 ng/mL COCM 300 ng/mL OP 300 ng/mL PCP 25 ng/mL THC 20 ng/mL Complete Blood Count Auto Di ffon 10-26-2021 Basophils (Bld) [#/Vol] 0.1 10*3/uL Normal 0.0-0.2 [facility] Comment on above: Result Comment: PERF ORMED BY: [place] [address] PATHOLOGIST FISHER PURSE SEINE JAMES MCNAIR M.D. Performed By: #### C BC, ETOH, CMP #### [address] Basophils/100 WBC (Bld) 0.8 % Normal . F [facility] Comment on above: Performed By: #### C BC, ETOH, CMP #### [address] Eosinophils (Bld) [#/Vol] 0.2 10*3/uL Normal 0.0-0.45 [facility] Comment on above: Performed By: #### C BC, ETOH, CMP #### [address] Eosinophils/100 WBC (Bld) 1.9 % Normal . [facility] Comment on above: Performed By: #### C BC, ETOH, CMP #### [address] Erythrocyte distribution width (RBC) [Ratio] 13.0 % Normal 11.9-15.3 [facility] Comment on above: Performed By: #### C BC, ETOH, CMP #### [address] Hematocrit (Bld) [Volume fraction] 39.1 % Normal 34.0-46.4 [facility] Comment on above: Performed By: #### C BC, ETOH, CMP #### [facility] [address] [place] [address] [place] Hemoglobin (Bld) [Mass/Vol] 13.3 g/dL Normal 11.8-15.4 [facility] Comment on above: Performed By: #### C BC, ETOH, CMP #### [facility] [address] Lymphocytes (Bld) [#/Vol] 2.2 10*3/uL Normal 1.00-4.8 [facility] Comment on above: Performed By: #### C BC, ETOH, CMP #### [facility] [address] Lymphocytes/100 WBC (Bld) 21.5 % Normal . [facility] Comment on above: Performed By: #### C BC, ETOH, CMP #### [facility] [address] MCH (RBC) [Entitic mass] 32.9 pg Normal 24.7-34.3 [facility] Comment on above: Performed By: #### C BC, ETOH, CMP #### [facility] [address] [place] [address] [place] MCV (RBC) [Entitic vol] 96.5 fL Normal 80-100 [facility] Comment on above: Performed By: #### C BC, ETOH, CMP #### [facility] [address] Mean Corpuscular HGB Conc 34.1 g/dL Normal 32.0-35.0 [facility] Comment on above: Performed By: #### C BC, ETOH, CMP #### [facility] [address] [place] [address] [place] Monocytes (Bld) [#/Vol] 0.6 10*3/uL Normal 0.0-0.8 [facility] Comment on above: Performed By: #### C BC, ETOH, CMP #### [facility] [address] [place] [address] [place] Monocytes/100 WBC (Bld) 6.2 % Normal . F [facility] Comment on above: Performed By: #### C BC, ETOH, CMP #### [facility] [address] Neutrophils (Bld) [#/Vol] 7.1 10*3/uL Normal 1.8-7.7 [facility] Comment on above: Performed By: #### C BC, ETOH, CMP #### [facility] [address] Neutrophils/100 WBC (Bld) 69.6 % Normal . [facility] Comment on above: Performed By: #### C BC, ETOH, CMP #### [facility] [address] Nucleated RBC/100 WBC (Bld) [Ratio] 0.0 % Normal 0-0.5 [facility] Comment on above: Performed By: #### C BC, ETOH, CMP #### [address] Platelet mean volume (Bld) [Entitic vol] 9.0 fL Normal 6.3-10.7 [facility] Comment on above: Performed By: #### C BC, ETOH, CMP #### [facility] [address] [place] [address] [place] Platelets (Bld) [#/Vol] 173 10*3/uL Normal 150-450 [facility] Comment on above: Performed By: #### C BC, ETOH, CMP #### [facility] [address] [place] [address] [place] RBC (Bld) [#/Vol] 4.05 10*6/uL Normal 3.60-5.00 [facility] Comment on above: Performed By: #### C BC, ETOH, CMP #### [facility] [address] [place] [address] [place] WBC (Bld) [#/Vol] 10.2 10*3/uL Normal 4.5-11.0 [facility] Comment on above: Performed By: #### C BC, ETOH, CMP #### [address] Comprehensive Metabolic Pane v[place]a 08-30-2022 Albumin [Mass/Vol] 4.0 g/dL Normal 3.2-5.5 [facility] Comment on above: Performed By: #### C BC, ETOH, CMP #### [address] Albumin/Globulin [Mass ratio] 1.5 {ratio} Normal [facility] Comment on above: Performed By: #### C BC, ETOH, CMP #### [facility] [address] ALP [Catalytic activity/Vol] 55 U/L Normal 32-92 [facility] Comment on above: Performed By: #### C BC, ETOH, CMP #### [address] ALT [Catalytic activity/Vol] 20 U/L Normal 10-60 [facility] Comment on above: Performed By: #### C BC, ETOH, CMP #### [address] Anion gap [Moles/Vol] 10.1 mmol/L Normal 6.0-15.0 [facility] Comment on above: Performed By: #### C BC, ETOH, CMP #### [address] AST [Catalytic activity/Vol] 17 U/L Normal 10-42 [facility] Comment on above: Performed By: #### C BC, ETOH, CMP #### [address] Bilirubin [Mass/Vol] 0.4 mg/dL Normal 0.3-1.2 [facility] Comment on above: Performed By: #### C BC, ETOH, CMP #### [address] Calcium [Mass/Vol] 9.5 mg/dL Normal 8.2-10.2 [facility] Comment on above: Performed By: #### C BC, ETOH, CMP #### [place] [address] [place] Chloride [Moles/Vol] 104 mmol/L Normal 95-114 [facility] Comment on above: Performed By: #### C BC, ETOH, CMP #### [address] CO2 [Moles/Vol] 25.3 mmol/L Normal 22.0-30.0 [facility] Comment on above: Performed By: #### C BC, ETOH, CMP #### [facility] [address] Creatinine [Mass/Vol] 0.81 mg/dL Normal 0.44-1.03 [facility] Comment on above: Performed By: #### C BC, ETOH, CMP #### [address] Creatinine Clr Calc Pharmacy 97.62 [facility] Comment on above: Result Comment: PERF ORMED BY: [place] [address] PATHOLOGIST FISHER PURSE SEINE JAMES MCNAIR M.D. Performed By: #### C BC, ETOH, CMP #### [address] Estimated GFR ( Nette > 60 [facility] Comment on above: Result Comment: GFR estimated reference range: According to KDOQI guidelines, <60 ml/min/1.73m2 is sufficient to diagnose a patient with chronic kidney disease. Performed By: #### C BC, ETOH, CMP #### [address] Estimated GFR (Non- Am > 60 [facility] Comment on above: Performed By: #### C BC, ETOH, CMP #### [address] Globulin (S) [Mass/Vol] 2.7 g/dL Normal [facility] Comment on above: Performed By: #### C BC, ETOH, CMP #### [facility] [address] Glucose [Mass/Vol] 98 mg/dL Normal 70-100 [facility] Comment on above: Result Comment: [place] Glucose Reference Range is dependent on time and content of last meal. Glucose of more than 200 mg/dL in a nonstressed, ambulatory subject supports the diagnosis of Diabetes Mellitus. ADA recommended reference range Performed By: #### C BC, ETOH, CMP #### [facility] [address] Potassium [Moles/Vol] 3.4 mmol/L Low 3.5-5.1 [facility] Comment on above: Performed By: #### C BC, ETOH, CMP #### [facility] [address] [place] [address] [place] Protein [Mass/Vol] 6.7 g/dL Normal 6.1-7.9 [facility] Comment on above: Performed By: #### C BC, ETOH, CMP #### [facility] [address] [place] [address] [place] Sodium [Moles/Vol] 136 mmol/L Normal 136-146 [facility] Comment on above: Performed By: #### C BC, ETOH, CMP #### [facility] [address] [place] [id number] [place] Urea nitrogen [Mass/Vol] 6 mg/dL Low 9-23 [facility] Comment on above: Performed By: #### C BC, ETOH, CMP #### [facility] [address] [place] [id number] [place] Creatinine and Glomerular fi ltration rate.predicted panel (S/P/Bld)Ordered By: Ed Amaral on 10-26-2021 Creatinine [Mass/Vol] 0.81 mg/dL 0.44-1.03 [facility] Dipstick and Microscopicon 0 10-26-2021 Appearance (U) Clear Normal Clear [facility] Comment on above: Order Comment: Name Collection Type:: Clean-Voided Midstream Performed By: #### S OFIANEG, URDS, ADDONUAPLUS, UHCG, COVID-19 FELI #### [facility] [address] [place] [id number] [place] Bilirubin,Urine Negative Normal Negative [facility] Comment on above: Order Comment: Name Collection Type:: Clean-Voided Midstream Performed By: #### S OFIANEG, URDS, ADDONUAPLUS, UHCG, COVID-19 FELI #### [facility] [address] Glucose Ql (U) Normal Normal Normal [facility] Comment on above: Order Comment: Name Collection Type:: Clean-Voided Midstream Performed By: #### S OFIANEG, URDS, ADDONUAPLUS, UHCG, COVID-19 FELI #### [facility] [address] [place] [address] [place] Ketones Ql (U) Negative Normal Negative [facility] Comment on above: Order Comment: Name Collection Type:: Clean-Voided Midstream Performed By: #### S OFIANEG, URDS, ADDONUAPLUS, UHCG, COVID-19 FELI #### [facility] [address] [place] [address] [place] Leukocyte esterase Test strip Ql (U) 1+ High Negative [facility] Comment on above: Order Comment: Name Collection Type:: Clean-Voided Midstream Performed By: #### S OFIANEG, URDS, ADDONUAPLUS, UHCG, COVID-19 FELI #### [facility] [address] [place] [address] [place] Nitrite,Urine Negative Normal Negative [facility] Comment on above: Order Comment: Name Collection Type:: Clean-Voided Midstream Performed By: #### S OFIANEG, URDS, ADDONUAPLUS, UHCG, COVID-19 FEIL #### [facility] [address] [place] [address] [place] Occult Blood,Urine Negative Normal Negative [facility] Comment on above: Order Comment: Name Collection Type:: Clean-Voided Midstream Performed By: #### S OFIANEG, URDS, ADDONUAPLUS, UHCG, COVID-19 FELI #### [facility] [address] [place], [place] [id number] [place] Protein,Urine Negative Normal Negative [facility] Comment on above: Order Comment: Name Collection Type:: Clean-Voided Midstream Performed By: #### S OFIANEG, URDS, ADDONUAPLUS, UHCG, COVID-19 FELI #### [facility] [address] [place] [address] RBC LM.HPF (Urine sed) [#/Area] 0 /[HPF] Normal 0-4 [facility] Comment on above: Order Comment: Name Collection Type:: Clean-Voided Midstream Performed By: #### S OFIANEG, URDS, ADDONUAPLUS, UHCG, COVID-19 FELI #### [address] [place],Urine 1.005 Normal 1.001-1.030 [facility] Comment on above: Order Comment: Name Collection Type:: Clean-Voided Midstream Performed By: #### S OFIANEG, URDS, ADDONUAPLUS, UHCG, COVID-19 FELI #### [address] Squamous Epithelial Cell,Urine 1-2 Normal 0-2 [facility] Comment on above: Order Comment: Name Collection Type:: Clean-Voided Midstream Performed By: #### S OFIANEG, URDS, ADDONUAPLUS, UHCG, COVID-19 FELI #### [address] Urobilinogen,Urine Normal Normal Normal [facility] Comment on above: Order Comment: Name Collection Type:: Clean-Voided Midstream Performed By: #### S OFIANEG, URDS, ADDONUAPLUS, UHCG, COVID-19 FELI #### [facility] [address] [place] [address] WBC,Urine 1-2 Normal 0-4 [facility] Comment on above: Order Comment: Name Collection Type:: Clean-Voided Midstream Performed By: #### S OFIANEG, URDS, ADDONUAPLUS, UHCG, COVID-19 FELI #### [address] Drug Screen,Urineon 10-27-19 22 Amphetamine Screen,Urine Negative Normal Negative [facility] Comment on above: Performed By: #### S OFIANEG, URDS, ADDONUAPLUS, UHCG, COVID-19 FELI #### [address] Barbiturate Screen,Urine Negative Normal Negative [facility] Comment on above: Performed By: #### S OFIANEG, URDS, ADDONUAPLUS, UHCG, COVID-19 FELI #### [address] Benzodiazepines Screen,Urine Negative Normal Negative [facility] Comment on above: Performed By: #### S OFIANEG, URDS, ADDONUAPLUS, UHCG, COVID-19 FELI #### [address] Cannabinoid Screen,Urine Positive High Negative [facility] Comment on above: Result Comment: Thes e are unconfirmed results and should not be used for legal purposes. Drug Cut-Off Concentration: AMPH 1000 ng/mL SANCHEZ 200 ng/mL RENZO 200 ng/mL COCM 300 ng/mL OP 300 ng/mL PCP 25 ng/mL THC 20 ng/mL PERFORMED BY: [place] [address] PATHOLOGIST FISHER PURSE SEINE JAMES MCNAIR M.D. Performed By: #### S OFIANEG, URDS, ADDONUAPLUS, UHCG, COVID-19 FELI #### [address] Cocaine Screen,Urine Negative Normal Negative [facility] Comment on above: Performed By: #### S OFIANEG, URDS, ADDONUAPLUS, UHCG, COVID-19 FELI #### [place] [address] [place] Opiate Screen,Urine Negative Normal Negative [facility] Comment on above: Performed By: #### S OFIANEG, URDS, ADDONUAPLUS, UHCG, COVID-19 FELI #### [facility] [address] Phencyclidine Screen,Urine Negative Normal Negative [facility] Comment on above: Performed By: #### S BALJINDER HOBSON, ADDONUAPLUS, UHCG, COVID-19 FELI #### [facility] [address] Eosinophils Auto (Bld) [#/Vo l]Ordered By: Ed Amaral on 10-26-2021 Eosinophils (Bld) [#/Vol] 0.2 10*3/uL 0.0-0.45 [facility] Eosinophils/100 WBC Auto (Bl d)Ordered By: Ed Amaral on 10-26-2021 Eosinophils/100 WBC (Bld) 1.9 % . [facility] Erythrocyte distribution wid th Auto (RBC) [Ratio]Ordered By: Ed Amaral on 10-26-2021 Erythrocyte distribution width (RBC) [Ratio] 13.0 % 11.9-15.3 [facility] Estimated glomerular filtrat ion rate (GFR) non- AmericanOrdered By: Ed Amaral on 10-26-2021 GFR/1.73 sq M.predicted among non-blacks MDRD (S/P/Bld) [Vol rate/Area] > 60 mL/Min [facility] Ethyl Alcohol Profileon 09-29 Ethanol [Mass/Vol] mg/dL Normal [facility] Comment on above: Performed By: #### C BC, ETOH, CMP #### [facility] [address] Percent Ethanol Not performed Normal [facility] Comment on above: Result Comment: PERF ORMED BY: [place] [address] PATHOLOGIST FISHER PURSE SEINE JAMES MCNAIR M.D. Performed By: #### C BC, ETOH, CMP #### [facility] [address] [place] [address] Globulin Calc (S) [Mass/Vol] Ordered By: Ed Amaral on 10-26-2021 Globulin (S) [Mass/Vol] 2.7 g/dL F [facility] HCG ( test) IA.rapi d Ql (U)Ordered By: Ed Amaral on 10-26-2021 HCG ( test) Ql (U) Negative [facility] HCG,Urineon 10-26-2021 Beta HCG ( test) Ql (U) Negative Normal [facility] Comment on above: Order Comment: Name Collection Type:: Clean-Voided Midstream Result Comment: PERF ORMED BY: [facility] [address] [place] [address] PATHOLOGIST FISHER PURSE SEINE JAMES MCNAIR M.D. Performed By: #### S OFIANEG, URDS, ADDONUAPLUS, UHCG, COVID-19 FELI #### [address] Hematocrit Auto (Bld) [Volum e fraction]Ordered By: Ed Amaral on 10-26-2021 Hematocrit (Bld) [Volume fraction] 39.1 % 34.0-46.4 [facility] Ketones Auto test strip (U) [Mass/Vol]Ordered By: Ed Amaral on 10-26-2021 Ketones (U) [Mass/Vol] Negative Negative Fi [facility] Laboratory - Drug toxicology Ordered By: Ed Amaral on 10-26-2021 Opiates Ql (U) Negative Negative [facility] Laboratory - Hematology and Cell countsOrdered By: Ed Amaral on 10-26-2021 Nucleated RBC/100 WBC (Bld) [Ratio] 0.0 % 0-0.5 [facility] Lymphocytes Auto (Bld) [#/Vo l]Ordered By: Ed Amaral on 10-26-2021 Lymphocytes (Bld) [#/Vol] 2.2 10*3/uL 1.00-4.8 [facility] Lymphocytes/100 WBC Auto (Bl d)Ordered By: Ed Amaral on 10-26-2021 Lymphocytes/100 WBC (Bld) 21.5 % . [facility] MCH Auto (RBC) [Entitic mass ]Ordered By: Ed Amaral on 10-26-2021 MCH (RBC) [Entitic mass] 32.9 pg 24.7-34.3 [facility] MCHC Auto (RBC) [Mass/Vol]Or dered By: Ed Amaral on 10-26-2021 MCHC (RBC) [Mass/Vol] 34.1 g/dL 32.0-35.0 [facility] MCV Auto (RBC) [Entitic vol] Ordered By: Ed Amaral on 10-26-2021 MCV (RBC) [Entitic vol] 96.5 fL 80-100 F [facility] Monocytes Auto (Bld) [#/Vol] Ordered By: Ed Amaral on 10-26-2021 Monocytes (Bld) [#/Vol] 0.6 10*3/uL 0.0-0.8 [facility] Monocytes/100 WBC Auto (Bld) Ordered By: Ed Amaral on 10-26-2021 Monocytes/100 WBC (Bld) 6.2 % . F [facility] Neutrophils Auto (Bld) [#/Vo l]Ordered By: Ed Amaral on 10-26-2021 Neutrophils (Bld) [#/Vol] 7.1 10*3/uL 1.8-7.7 [facility] Neutrophils/100 WBC Auto (Bl d)Ordered By: Ed Amaral on 10-26-2021 Neutrophils/100 WBC (Bld) 69.6 % . [facility] Nitrite Test strip Ql (U)Ord ered By: Ed Amaral on 10-26-2021 Nitrite Ql (U) Negative Negative [facility] No Panel InformationOrdered By: Ed Amaral on 10-26-2021 Estimated GFR () > 60 mL/Min [facility] Comment on above: GFR estimated refere nce range: According to KDOQI guidelines, <60 ml/min/1.73m2 is sufficient to diagnose a patient with chronic kidney disease. Pharmacy Creatinine Clearance (Chem 97.62 [facility] SARS Antigen (LFIA) [facility] Phencyclidine Screen Ql (U)O rdered By: Ed Amaral on 10-26-2021 Phencyclidine Ql (U) Negative Negative [facility] Platelet mean volume Auto (B ld) [Entitic vol]Ordered By: Ed Amaral on 10-26-2021 Platelet mean volume (Bld) [Entitic vol] 9.0 fL 6.3-10.7 [facility] Platelets Auto (Bld) [#/Vol] Ordered By: Ed Amaral on 10-26-2021 Platelets (Bld) [#/Vol] 173 10*3/uL 150-450 [facility] Protein Auto test strip (U) [Mass/Vol]Ordered By: Ed Amaral on 10-26-2021 Protein (U) [Mass/Vol] Negative Negative Fi [facility] Protein [Mass/volume] in Ser um or PlasmaOrdered By: Ed Amaral on 10-26-2021 Protein [Mass/Vol] 6.7 g/dL 6.1-7.9 [facility] RBC Auto (Bld) [#/Vol]Ordere d By: Ed Amaral on 10-26-2021 RBC (Bld) [#/Vol] 4.05 10*6/uL 3.60-5.00 [facility] Serum or plasma alanine daniel otransferase measurement without P-5'-P (enzymatic activiOrdered By: Ed Amaral on 10-26-2021 ALT No additional P-5'-P [Catalytic activity/Vol] 20 U/L 10-60 [facility] Serum or plasma albumin/glob ulin mass ratioOrdered By: Ed Amaral on 10-26-2021 Albumin/Globulin [Mass ratio] 1.5 {ratio} [facility] Serum or plasma alkaline jame sphatase measurement (enzymatic activity/volume)Ordered By: Ed Amaral on 10-26-2021 ALP [Catalytic activity/Vol] 55 U/L 32-92 [facility] Serum or plasma anion gap de terminationOrdered By: Ed Amaral on 10-26-2021 Anion gap [Moles/Vol] 10.1 mmol/L 6.0-15.0 [facility] Serum or plasma aspartate am inotransferase measurement (enzymatic activity/volume)Ordered By: Ed Amaral on 10-26-2021 AST [Catalytic activity/Vol] 17 U/L 10-42 [facility] Serum or plasma calcium stephane urement (mass/volume)Ordered By: Ed Amaral on 10-26-2021 Calcium [Mass/Vol] 9.5 mg/dL 8.2-10.2 [facility] Serum or plasma chloride rios surement (moles/volume)Ordered By: Ed Amaral on 10-26-2021 Chloride [Moles/Vol] 104 mmol/L 95-114 [facility] Serum or plasma ethanol stephane urement (mass/volume)Ordered By: Ed Amaral on 10-26-2021 Ethanol [Mass/Vol] mg/dL [facility] Ethanol [Mass/Vol] TNP [facility] Comment on above: Test not performed Serum or plasma glucose stephane urement (mass/volume)Ordered By: Ed Amaral on 10-26-2021 Glucose [Mass/Vol] 98 mg/dL 70-100 [facility] Comment on above: ADA recommended refe rence range Random Glucose Reference Range is dependent on time and content of last meal. Glucose of more than 200 mg/dL in a nonstressed, ambulatory subject supports the diagnosis of Diabetes Mellitus. Serum or plasma potassium me asurement (moles/volume)Ordered By: Ed Amaral on 10-26-2021 Potassium [Moles/Vol] 3.4 mmol/L 3.5-5.1 [facility] Serum or plasma sodium measu rement (moles/volume)Ordered By: Ed Amaral on 10-26-2021 Sodium [Moles/Vol] 136 mmol/L 136-146 [facility] Serum or plasma total biliru bin measurement (mass/volume)Ordered By: Ed Amaral on 10-26-2021 Bilirubin [Mass/Vol] 0.4 mg/dL 0.3-1.2 [facility] Serum or plasma total carbon dioxide measurement (moles/volume)Ordered By: Ed Amaral on 10-26-2021 CO2 [Moles/Vol] 25.3 mmol/L 22.0-30.0 [facility] Serum or plasma urea nitroge n measurement (mass/volume)Ordered By: Ed Amaral on 10-26-2021 Urea nitrogen [Mass/Vol] 6 mg/dL - [facility] Feli Ag Negativeon 10-27-19 Feli Ag Negative Negative Normal Negative [facility] Comment on above: Result Comment: This is a duplicate Feli SARS Antigen (ERNESTO) result to be used for statistical tracking purpose only. PERFORMED BY: [facility] [address] [place] [address] PATHOLOGIST FISHER PURSE SEINE JAMES MCNAIR M.D. Performed By: #### S BALJINDER HOBSON, DAVIDPLUS, UHCG, COVID-19 FELI #### [facility] [address] Specific gravity Auto test s trip (U) [Rel density]Ordered By: Ed Amaral on 10-26-2021 Specific gravity (U) [Rel density] 1.005 1.001-1.030 [facility] Squamous epithelial cells de tection in urine sediment by light microscopyOrdered By: Ed Amaral on 10-26-2021 Epithelial cells.squamous LM Ql (Urine sed) 1-2 [HPF] 0-2 [facility] Urine bacteria detection by automated methodOrdered By: Ed Amaral on 10-26-2021 Bacteria Auto Ql (U) N/A [facility] Urine clarity by refractomet ry automatedOrdered By: Ed Amaral on 10-26-2021 Clarity Refractometry automated (U) Clear Clear [facility] Urine cocaine detectionOrder ed By: Ed Amaral on 10-26-2021 Cocaine Ql (U) Negative Negative [facility] Urine glucose measurement by automated test strip (mass/volume)Ordered By: Ed Amaral on 10-26-2021 Glucose Auto test strip (U) [Mass/Vol] Normal mg/dL Normal [facility] Urine hemoglobin detection b y automated test stripOrdered By: Ed Amaral on 10-26-2021 Hemoglobin Auto test strip Ql (U) Negative Negative [facility] Urine leukocyte esterase det ection by automated test stripOrdered By: Ed Amaral on 10-26-2021 Leukocyte esterase Auto test strip Ql (U) 1+ Negative [facility] Urine pH measurement by auto mated test stripOrdered By: Ed Amaral on 10-26-2021 pH (U) 7.0 [pH] Normal 5.0-9.0 [facility] Comment on above: Order Comment: Name Collection Type:: Clean-Voided Midstream Performed By: #### S OFIANEG, URDS, ADDONUAPLUS, UHCG, COVID-19 FELI #### [facility] [address] [place] [id number] [facility] Urobilinogen Auto test strip (U) [Mass/Vol]Ordered By: Ed Amaral on 10-26-2021 Urobilinogen (U) [Mass/Vol] Normal mg/dL Normal [facility] Viral Non-Resp Culton 2021 Viral Non-Resp Cult Specimen Description .WOUND UPPER .LIP Culture POSITIVE: HSV-1 DNA detected by nucleic acid amp. NEGATIVE: HSV-2 DNA not detected by nucleic acid amplification. Due to the specimen source, HSV 1,2 testing was performed by a molecular method. Report Status FINAL 05/30/2021 Normal [facility] Comment on above: Performed By: #### V [facility] #### [address] [address] Manager Lsw: Claude Gonzalez MD No Panel InformationOrdered By: Kia Sharma on 05-28-2021 Reported Physicians See Note [facility] Work Phone: Comment on above: Note: Reported Physi cians:Ordering: Andres SharmaaAttending: Andres SharmaaReferring: Kia Sharma Viral Non-Resp Cult See Note [facility] Work Phone: Comment on above: Note: Specimen Descr iption .WOUND UPPER .LIPCulture POSITIVE: HSV-1 DNA detected by nucleic acid amp.NEGATIVE: HSV-2 DNA not detected by nucleic acid amplification.Due to the specimen source, HSV 1,2 testing was performed by a molecular method.Report Status FINAL 2Responsible Observer: SUMMER BOYD ([id number]) Follicle Stimulating Hormone on 03-10-2021 FSH 4.5 U/L 1.7 - 21.5 U/L [facility] Comment on above: Reference Range: Male: 1.5-12.4 Ovulating Female: Follicular Phase 3.5-12.5 Ovulation Phase 4.7-21.5 Luteal Phase 1.7-7.7 Postmenopausal Female: 25.8-134.8 Luteinizing Hormoneon 2021 LH 3.0 U/L 1.0 - 95.6 U/L [facility] Comment on above: Reference Range: Male: 1.7-8.6 Ovulating Female: Follicular Phase 2.4-12.6 Ovulation Phase 14.0-95.6 Luteal Phase 1.0-11.4 Postmenopausal Female: 7.7-58.5 No Panel Informationon 03-10 [facility] Prolactinon 03-10-2021 Prolactin 5.96 ug/L 4.79 - 23.30 ug/L [facility] Comment on above: The presence of macr oprolactin may cause interference in female patients with various endocrinological diseases or during . [facility] TSH with Reflexon 03-10-2021 TSH Qn 0.72 m[IU]/L [facility] hCG, Quantitative, on 03-10-2021 hCG Quant <1 <5 IU/L [facility] Comment on above: Non-preg premeno <=5 Postmeno <=8 Male <=3 If HCG results do not concur with clinical observations, additional testing to confirm results is recommended. Elevated results not associated with may be found in patients with other diseases such as tumors of the germ cells (testis, ovaries, etc.), bladder, pancreas, stomach, lungs, and liver. [facility] , UrineOrdered By: Anthony Galloway on 10-14-2020 Beta HCG ( test) Ql (U) Negative NEGATIVE [facility] Phone: Comment on above: Specimens with hCG l evels near the threshold of the test (25 mIU/mL) may give a negative or indeterminate result. In such cases, another test should be performed with a new specimen in 48-72 hours. If early is suspected clinically in this setting, correlation with quantitative serum b-hCG level is suggested. [facility] has confirmed the use of plasma for this test. This has not been cleared or approved by the U.S. Food and Drug Administration. The FDA has determined that such clearance is not necessary. [facility] Work Phone: COVID-19Ordered By: Sabas siddiqi on 10-10-2020 SARS-CoV-2 (COVID-19) RNA SANDRA+probe Ql (Unsp spec) [facility] Phone: SARS-CoV-2 (COVID-19) RNA SANDRA+probe Ql (Unsp spec) Not detected Not Detected [facility] Phone: Comment on above: The specimen is NEGATIVE for SARS-CoV-2, the novel coronavirus associated with COVID-19. A negative result does not rule out COVID-19. Maritza SARS-CoV-2 for use on the [employer] is a real-time RT-PCR test intended [...] this assay. Fact sheet for Healthcare Providers: https://www.fda.gov/media/856434/download Fact sheet for Patients: https://www.fda.gov/media/554001/download METHODOLOGY: RT-PCR Source .NASOPHARYNGEAL SWAB [employer] Phone: [facility] Phone: Microscopic Urinalysison Amorphous, UA NOT REPORTED None [facility]- [place], [place] Bacteria, UA 1+ Abnormal None [facility], [place] Casts UA NOT REPORTED /LPF [place], [place] Crystals, UA NOT REPORTED None /HPF [facility] [place], [place] Epithelial Cells UA 5 TO 10 [place], [place] Interpretation and review of laboratory results Abnormal [facility], [place] Mucus, UA NOT REPORTED None [facility], [place] Other Observations UA NOT REPORTED NOT REQ. M [facility], [place] RBC (U) [#/Vol] 0 TO 2 [facility] [place], [place] Renal Epithelial, UA NOT REPORTED 0 /HPF [place], [place] Trichomonas, UA NOT REPORTED None [place], [place] WBC, UA 0 TO 2 [place] Yeast, UA NOT REPORTED None [place], [place] - [place] , Urineon 0 Beta HCG ( test) Ql (U) Negative NEGATIVE [place] Comment on above: Specimens with hCG l evels near the threshold of the test (25 mIU/mL) may give a negative or indeterminate result. In such cases, another test should be performed with a new specimen in 48-72 hours. If early is suspected clinically in this setting, correlation with quantitative serum b-hCG level is suggested. [facility] has confirmed the use of plasma for this test. This has not been cleared or approved by the U.S. Food and Drug Administration. The FDA has determined that such clearance is not necessary. Urinalysis Reflex to Culture on 02-25-2020 Bilirubin Urine Negative NEGATIVE [place], [place] Color, UA YELLOW YELLOW [place] Glucose, Ur Negative NEGATIVE [place] Ketones Ql (U) Negative NEGATIVE [place], [place] Leukocyte esterase Test strip Ql (U) Negative NEGATIVE [place] Nitrite, Urine Negative NEGATIVE [place] pH, UA 6.5 [place] Protein (U) [Mass/Vol] Negative NEGATIVE [place], [place] Specific [place], UA 1.010 [place], [place] Turbidity UA CLEAR CLEAR [place] Urinalysis Comments NOT REPORTED [place], [place] Urine Hgb Negative NEGATIVE [place] Urobilinogen, Urine Normal Normal [place] Wet Prep, Genitalon 02-25-20 20 Direct Exam NO TRICHOMONAS SEEN [place], [place] Direct Exam NO YEAST OBSERVED [place] Direct Exam CLUE CELLS SEEN Abnormal [place], [place] Interpretation and review of laboratory results Abnormal [place] Special Requests NOT REPORTED [place] Specimen Description .VAGINA [place], [place] Laboratory Studieson 016 Albumin [Mass/Vol] 3.4 g/dL 3.2-5.5 [facility] Albumin/Globulin [Mass ratio] 1.5 {ratio} [facility] ALP [Catalytic activity/Vol] 50 U/L 32-92 [facility] ALT [Catalytic activity/Vol] 17 U/L 10-60 [facility] AST [Catalytic activity/Vol] 16 U/L 10-42 [facility] Basophils (Bld) [#/Vol] 0.0 10*3/uL 0.0-0.2 [facility] Basophils/100 WBC (Bld) 0.3 % F [facility] Bilirubin Ql (U) 0.2 mg/dL Low 0.3-1.2 [facility] Bilirubin.direct [Mass/Vol] mg/dL 0.0-0.4 [facility] Bilirubin.indirect (Body fld) [Mass/Vol] TNP [facility] Comment on above: Test not performed WHEN BILD IS <0.1,IBIL IS NOT ABLE TO BE CALCULATED. Calcium [Mass/Vol] 9.3 mg/dL 8.2-10.2 [facility] Chloride [Moles/Vol] 106 mmol/L 95-114 [facility] Cholesterol [Mass/Vol] 9 mg/dL Fi [facility] Cholesterol [Mass/Vol] 101 mg/dL Low 140-200 Fi [facility] Comment on above: CHOL less than 200 m g/dL Low risk CHOL 201-239 mg/dL Borderline risk CHOL 240 mg/dL and greater High risk Cholesterol in HDL [Mass/Vol] 38 mg/dL 35-85 [facility] Comment on above: HDL CHOL ATP-III CLA SSIFICATION Cardiovascular Risk HDL > or equal to 60 mg/dL Low HDL < 40 mg/dL High Cholesterol.total/Fanny sterol in HDL [Mass ratio] 2.7 {ratio} [facility] CO2 [Moles/Vol] 25.8 mmol/L 22.0-30.0 [facility] Creatinine [Mass/Vol] 0.62 mg/dL 0.44-1.03 [facility] Eosinophils (Bld) [#/Vol] 0.10 10*3/uL 0.0-0.45 [facility] Eosinophils/100 WBC (Bld) 1.5 % [facility] Erythrocyte distribution width (RBC) [Ratio] 13.2 % 11.9-15.3 [facility] Estimated GFR (Non- > 60 [facility] GFR/1.73 sq M.predicted MDRD (S/P/Bld) [Vol rate/Area] mL/min/{1.73_m2} [facility] Comment on above: GFR estimated refere nce range: According to KDOQI guidelines, <60 ml/min/1.73m2 is sufficient to diagnose a patient with chronic kidney disease. Globulin (S) [Mass/Vol] 2.2 g/dL F [facility] Glucose [Mass/Vol] 82 mg/dL 70-100 [facility] Comment on above: ADA RECOMMENDED REFE RENCE RANGE Hematocrit (Bld) [Volume fraction] 32.1 % Low 34.0-46.4 [facility] Hemoglobin (Bld) [Mass/Vol] 11.0 g/dL Low 11.8-15.4 [facility] LDL Cholesterol, Calculated 54 mg/dL 0-100 [facility] Comment on above: LDL ATP III CLASSIFI CATION LDL less than 100 mg/dL Optimal LDL 100-129 mg/dL Near or above optimal LDL 130-159 mg/dL Borderline high LDL 160-189 mg/dL High LDL greater than 189 mg/dL Very high Lymphocytes (Bld) [#/Vol] 2.1 10*3/uL 1.00-4.8 [facility] Lymphocytes/100 WBC (Bld) 25.3 % [facility] MCH (RBC) [Entitic mass] 31.9 pg 24.7-34.3 [facility] MCHC (RBC) [Mass/Vol] 34.4 g/dL 32.0-35.0 [facility] MCV (RBC) [Entitic vol] 92.6 fL 80-100 F [facility] Monocytes (Bld) [#/Vol] 0.7 10*3/uL 0.0-0.8 [facility] Monocytes/100 WBC (Bld) 8.3 % F [facility] Neutrophils (Bld) [#/Vol] 5.3 10*3/uL 1.8-7.7 [facility] Neutrophils/100 WBC (Bld) 64.6 % [facility] Platelet mean volume (Bld) [Entitic vol] 9.5 fL 6.3-10.7 [facility] Platelets (Bld) [#/Vol] 135 10*3/uL Low 150-450 [facility] Potassium [Moles/Vol] 4.3 mmol/L 3.5-5.1 [facility] Protein [Mass/Vol] 5.6 g/dL Low 6.1-7.9 [facility] RBC (Bld) [#/Vol] 3.46 10*6/uL Low 3.60-5.00 [facility] Sodium [Moles/Vol] 138 mmol/L 136-146 [facility] Triglyceride [Mass/Vol] 47 mg/dL 35-149 F [facility] Comment on above: TRIG ATP III CLASSIF ICATION TRIG less than 150 mg/dL Normal TRIG 150-199 mg/dL Borderline high TRIG 200-500 mg/dL High TRIG greater than 500 mg/dL Very high Standard traceable to the Center for Disease Conrtrol and Prevention (CDC) test method. Troponin I.cardiac [Mass/Vol] 0.02 ng/mL 0-0.02 [facility] Comment on above: HARIS SD Cut off value > or equal to 0.03 ng/mL in conjunction with clinical conditions of myocardial infarction. (www.escardio.org/guidelines) TSH Qn 1.89 uIU/mL 0.340-5.600 [facility] Urea nitrogen [Mass/Vol] 7 mg/dL Low 9-23 [facility] WBC (Bld) [#/Vol] 8.2 10*3/uL 3.8-11.6 [facility] Amorphous sediment LM Ql (Urine sed) 2+ [facility] Comment on above: PHOSPHATES Amphetamines Ql (U) Negative [facility] Appearance (U) Hazy Abnormal [facility] Bacteria LM.HPF (Urine sed) [#/Area] Rare [facility] Benzodiazepines Ql (U) Negative [facility] Bilirubin Ql (U) Negative [facility] Cocaine Ql (U) Negative [facility] Color (U) Light-yellow [facility] Epithelial cells.squamous LM.HPF (Urine sed) [#/Area] 3-4 /hpf [facility] Glucose (U) [Mass/Vol] Normal mg/dL [facility] Ketones Ql (U) Negative [facility] Leukocyte esterase Test strip Ql (U) Negative [facility] Nitrite Ql (U) Negative [facility] Opiates Ql (U) Negative [facility] pH (U) 7.0 [pH] 5.0-9.0 [facility] Phencyclidine Ql (U) Negative [facility] Protein Ql (U) Negative [facility] RBC (U) [#/Vol] Rare /hpf [facility] Specific gravity (U) [Rel density] 1.010 1.001-1.030 [facility] Urine Barbiturates Screen Positive [facility] Urine Collection Type Type [facility] Comment on above: VOIDED Urine Drug Screen Comment See comment [facility] Comment on above: THESE ARE UNCONFIRME D RESULTS AND SHOULD NOT BE USED FOR LEGAL PURPOSES. DRUG CUT-OFF CONCENTRATION: AMPH 1000 ng/mL SANCHEZ 200 ng/mL RENZO 200 ng/mL COCM 300 ng/mL OP 300 ng/mL PCP 25 ng/mL THC 20 ng/mL Urine Marijuana (THC) Screen Positive [facility] Urine Occult Blood Negative [facility] Urobilinogen Qn (U) Normal mg/dL [facility] WBC (U) [#/Vol] Rare /hpf [facility] Laboratory Studieson 02-19- 016 CK [Catalytic activity/Vol] 51 U/L 22-269 [facility] CK.MB [Mass/Vol] 0.8 ng/mL 0.6-6.3 [facility] Creatine Kinase MB Relative Index 1.5 0.00-2.50 [facility] Vital Signs Date Time Vital Sign Value Performing Clinician Facility 09-12-2023 17:45-0400 Body height 170.2 cm Brenda Stephen APRN - [facility] Work Phone: [employer] 09-12-2023 17:45-0400 Body mass index (BMI) [Ratio] 28.82 kg/m2 Brenda Stephen REIMBURSEMENT CONSULTANT - CNM Work Phone: [facility] [employer] 09-12-2023 17:45-0400 Body temperature 98.29 [degF] Brenda Stephen REIMBURSEMENT CONSULTANT - CNM Work Phone: [employer] 09-12-2023 17:45-0400 Body weight 83.46 kg Brenda Stephen REIMBURSEMENT CONSULTANT - CNM Work Phone: [employer] 09-12-2023 17:45-0400 Diastolic blood pressure 60 mm[Hg] Brenda Stephen REIMBURSEMENT CONSULTANT - CNM Work Phone: [employer] 09-12-2023 17:45-0400 Heart rate 75 /min Brenda Stephen REIMBURSEMENT CONSULTANT - CNM Work Phone: [facility] [employer] 09-12-2023 17:45-0400 Respiratory rate 16 /min Brenda Stephen REIMBURSEMENT CONSULTANT - CNM Work Phone: [employer] 09-12-2023 17:45-0400 SaO2% (BldA) [Mass fraction] 98 % Brenda Stephen REIMBURSEMENT CONSULTANT - CNM Work Phone: [employer] 09-12-2023 17:45-0400 Systolic blood pressure 110 mm[Hg] Brenda Stephen REIMBURSEMENT CONSULTANT - CNM Work Phone: [employer] 08-24-2023 20:05-0400 Body temperature 98.1 [degF] Jagdeep D'Abreau DO Work Phone: [employer] 08-24-2023 20:05-0400 Diastolic blood pressure 63 mm[Hg] Jagdeep D'Abreau DO Work Phone: [employer] 08-24-2023 20:05-0400 Heart rate 95 /min Jagdeep D'Abreau DO Work Phone: [employer] 08-24-2023 20:05-0400 Respiratory rate 16 /min Jagdeep Callahaneau DO Work Phone: [employer] 08-24-2023 20:05-0400 SaO2% (BldA) [Mass fraction] 98 % Jagdeep Lozoyau DO Work Phone: [employer] 08-24-2023 20:05-0400 Systolic blood pressure 131 mm[Hg] Jagdeep Callahaneau DO Work Phone: [employer] 08-03-2022 06:56-0400 Body temperature 99 [degF] Samara Paulino MD Work Phone: [employer] 08-03-2022 06:56-0400 Diastolic blood pressure 75 mm[Hg] Samara Paulino MD Work Phone: [employer] 08-03-2022 06:56-0400 Heart rate 129 /min Samara Paulino MD Work Phone: [employer] 08-03-2022 06:56-0400 Respiratory rate 22 /min Samara Paulino MD Work Phone: [employer] 08-03-2022 06:56-0400 SaO2% (BldA) [Mass fraction] 100 % Samara Paulino MD Work Phone: [employer] 08-03-2022 06:56-0400 Systolic blood pressure 131 mm[Hg] Samara Paulino MD Work Phone: [employer] 07-27-2022 18:47-0400 Body height 175.26 cm Mariposa Duncan CNP Work Phone: [facility] Work Phone: 07-27-2022 18:47-0400 Body mass index (BMI) [Ratio] 22 kg/m2 Mariposa Duncan CNP Work Phone: [facility] Work Phone: 07-27-2022 18:47-0400 Body surface area Derived from formula 1.8 m2 Mariposa Duncan CNP Work Phone: [facility] Work Phone: 07-27-2022 18:47-0400 Body temperature 96.3 [degF] Mariposa Duncan CNP Work Phone: [facility] Work Phone: 07-27-2022 18:47-0400 Body weight 67.72 kg Mariposa Duncan CNP Work Phone: [facility] Work Phone: 07-27-2022 18:47-0400 Diastolic blood pressure 63 mm[Hg] Mariposa Duncan CNP Work Phone: [facility] Work Phone: 07-27-2022 18:47-0400 Heart rate 68 /min Mariposa Duncan CNP Work Phone: [facility] Work Phone: 07-27-2022 18:47-0400 SaO2% (BldA) [Mass fraction] 97 % Mariposa Duncan CNP Work Phone: [facility] Work Phone: 07-27-2022 18:47-0400 Systolic blood pressure 117 mm[Hg] Mariposa Duncan CNP Work Phone: [facility] Work Phone: 04-24-2022 13:05-0500 Diastolic blood pressure 60 mm[Hg] Kia Sharma APRN - [employer] Work Phone: [facility] [employer] 04-24-2022 13:05-0500 Systolic blood pressure 122 mm[Hg] Kia Sharma APRN - [employer] Work Phone: [facility] [employer] 04-24-2022 10:44-0500 Body mass index (BMI) [Ratio] 24.78 kg/m2 Kia Leo [employer] Work Phone: [employer] 04-24-2022 10:44-0500 Body temperature 98.4 [degF] Kia Leo [employer] Work Phone: [employer] 04-24-2022 10:44-0500 Body weight 73.94 kg Kia Leo [employer] Work Phone: [facility] [employer] 04-24-2022 10:44-0500 Heart rate 79 /min Kia Leo [employer] Work Phone: [employer] 04-24-2022 10:44-0500 Respiratory rate 20 /min Kia Leo [employer] Work Phone: [facility] [employer] 04-24-2022 10:44-0500 SaO2% (BldA) [Mass fraction] 100 % Kia Leo [employer] Work Phone: [employer] 03-04-2022 14:15-0500 Diastolic blood pressure 78 mm[Hg] Geoff Miller MD Work Phone: [employer] 03-04-2022 14:15-0500 Heart rate 74 /min Geoff Miller MD Work Phone: [employer] 03-04-2022 14:15-0500 Respiratory rate 16 /min Geoff Miller MD Work Phone: [facility] [employer] 03-04-2022 14:15-0500 SaO2% (BldA) [Mass fraction] 100 % Geoff Miller MD Work Phone: [employer] 03-04-2022 14:15-0500 Systolic blood pressure 131 mm[Hg] Geoff Miller MD Work Phone: [facility] [employer] 03-04-2022 13:30-0500 Body temperature 97.2 [degF] Geoff Miller MD Work Phone: [facility] [employer] 03-04-2022 11:15-0500 Body height 172.7 cm Geoff Miller MD Work Phone: [facility] [employer] 03-04-2022 11:15-0500 Body mass index (BMI) [Ratio] 24.94 kg/m2 Geoff Miller MD Work Phone: [facility] [employer] 03-04-2022 11:15-0500 Body weight 74.39 kg Geoff Miller MD Work Phone: [facility] [employer] 03-01-2022 08:00-0500 Body mass index (BMI) [Ratio] 24.94 kg/m2 Nicholas Denton MD Work Phone: [facility] [employer] 03-01-2022 08:00-0500 Body temperature 98.2 [degF] Nicholas Denton MD Work Phone: [facility] [employer] 03-01-2022 08:00-0500 Body weight 74.39 kg Nicholas Denton MD Work Phone: [facility] [employer] 03-01-2022 08:00-0500 Diastolic blood pressure 61 mm[Hg] Nicholas Denton MD Work Phone: [facility] [employer] 03-01-2022 08:00-0500 Heart rate 89 /min Nicholas Denton MD Work Phone: [facility] [employer] 03-01-2022 08:00-0500 Respiratory rate 20 /min Nicholas Denton MD Work Phone: [facility] [employer] 03-01-2022 08:00-0500 SaO2% (BldA) [Mass fraction] 99 % Nicholas Denton MD Work Phone: [facility] [employer] 03-01-2022 08:00-0500 Systolic blood pressure 138 mm[Hg] Nicholas Denton MD Work Phone: [facility] [employer] 10-29-2021 07:30-0400 Body temperature 96.6 [degF] PHYSICIAN NO [facility] 10-29-2021 07:30-0400 Diastolic blood pressure 70 mm[Hg] PHYSICIAN NO [facility] 10-29-2021 07:30-0400 Heart rate 84 /min PHYSICIAN [facility] 10-29-2021 07:30-0400 Respiratory rate 18 /min PHYSICIAN NO [facility] 10-29-2021 07:30-0400 SaO2% (BldA) [Mass fraction] 97 % PHYSICIAN NO [facility] 10-29-2021 07:30-0400 Systolic blood pressure 110 mm[Hg] PHYSICIAN [facility] 10-27-2021 14:15-0400 Body height 172.72 cm PHYSICIAN [facility] 10-26-2021 20:08-0400 Body weight 58.96 kg PHYSICIAN [facility] 08-17-2021 16:45-0400 Body height 175.26 cm Kia Sharma [facility] Work Phone: [facility] Work Phone: 08-17-2021 16:45-0400 Body mass index (BMI) [Ratio] 20 kg/m2 Kia Sharma [facility] Work Phone: [facility] Work Phone: 08-17-2021 16:45-0400 Body surface area Derived from formula 1.75 m2 Kia Sharma [facility] Work Phone: [facility] Work Phone: 08-17-2021 16:45-0400 Body surface area Derived from formula 1.7 m2 Mariposa Duncan [facility] Work Phone: [facility] Work Phone: 08-17-2021 16:45-0400 Body temperature 96.7 [degF] Kia Sharma [facility] Work Phone: [facility] Work Phone: 08-17-2021 16:45-0400 Body weight 61.33 kg Kia Sharma CNP Work Phone: [facility] Work Phone: 08-17-2021 16:45-0400 Diastolic blood pressure 64 mm[Hg] Kia Sharma CNP Work Phone: [facility] Work Phone: 08-17-2021 16:45-0400 Heart rate 67 /min Kia Sharma CNP Work Phone: [facility] Work Phone: 08-17-2021 16:45-0400 SaO2% (BldA) [Mass fraction] 99 % Kia Sharma CNP Work Phone: [facility] Work Phone: 08-17-2021 16:45-0400 Systolic blood pressure 110 mm[Hg] Kia Sharma CNP Work Phone: [facility] Work Phone: 07-15-2021 15:57-0400 Body height 175.26 cm Kia Sharma CNP Work Phone: [facility] Work Phone: 07-15-2021 15:57-0400 Body mass index (BMI) [Ratio] 19.8 kg/m2 Kia Sharma CNP Work Phone: [facility] Work Phone: 07-15-2021 15:57-0400 Body surface area Derived from formula 1.74 m2 Kia Sharma CNP Work Phone: [facility] Work Phone: 07-15-2021 15:57-0400 Body temperature 98.1 [degF] Kia Sharma CNP Work Phone: [facility] Work Phone: 07-15-2021 15:57-0400 Body weight 60.78 kg Kia Sharma CNP Work Phone: [facility] Work Phone: 07-15-2021 15:57-0400 Diastolic blood pressure 62 mm[Hg] Kia Sharma CNP Work Phone: [facility] Work Phone: 07-15-2021 15:57-0400 Heart rate 68 /min Kia Sharma CNP Work Phone: [facility] Work Phone: 07-15-2021 15:57-0400 Heart Rate Rhythm 1 1 Kia Sharma CNP Work Phone: [facility] Work Phone: 07-15-2021 15:57-0400 SaO2% (BldA) [Mass fraction] 98 % Kia Sharma CNP Work Phone: [facility] Work Phone: 07-15-2021 15:57-0400 Systolic blood pressure 108 mm[Hg] Kia Sharma CNP Work Phone: [facility] Work Phone: 07-01-2021 17:32-0400 Body height 175.26 cm Kia Sharma CNP Work Phone: [facility] Work Phone: 07-01-2021 17:32-0400 Body mass index (BMI) [Ratio] 20.3 kg/m2 Kia Sharma CNP Work Phone: [facility] Work Phone: 07-01-2021 17:32-0400 Body surface area Derived from formula 1.76 m2 Kia Sharma CNP Work Phone: [facility] Work Phone: 07-01-2021 17:32-0400 Body temperature 97.5 [degF] Kia Sharma CNP Work Phone: [facility] Work Phone: 07-01-2021 17:32-0400 Body weight 62.32 kg Kia Sharma CNP Work Phone: [facility] Work Phone: 07-01-2021 17:32-0400 Diastolic blood pressure 58 mm[Hg] Kia Sharma CNP Work Phone: [facility] Work Phone: 07-01-2021 17:32-0400 Heart rate 775 /min Kia Sharma CNP Work Phone: [facility] Work Phone: 07-01-2021 17:32-0400 Heart Rate Rhythm 1 1 Kia Sharma CNP Work Phone: [facility] Work Phone: 07-01-2021 17:32-0400 SaO2% (BldA) [Mass fraction] 97 % Kia Sharma CNP Work Phone: [facility] Work Phone: 07-01-2021 17:32-0400 Systolic blood pressure 116 mm[Hg] Kia Sharma CNP Work Phone: [facility] Work Phone: 05-28-2021 18:41-0400 Body height 175.26 cm Kia Sharma CNP Work Phone: [facility] Work Phone: 05-28-2021 18:41-0400 Body mass index (BMI) [Ratio] 19.6 kg/m2 Kia Sharma CNP Work Phone: [facility] Work Phone: 05-28-2021 18:41-0400 Body surface area Derived from formula 1.74 m2 Kia Sharma CNP Work Phone: [facility] Work Phone: 05-28-2021 18:41-0400 Body temperature 97.7 [degF] Kia Sharma CNP Work Phone: [facility] Work Phone: 05-28-2021 18:41-0400 Body weight 60.33 kg Kia Sharma CNP Work Phone: [facility] Work Phone: 05-28-2021 18:41-0400 Diastolic blood pressure 76 mm[Hg] Kia Sharma CNP Work Phone: [facility] Work Phone: 05-28-2021 18:41-0400 Heart rate 83 /min Kia Sharma CNP Work Phone: [facility] Work Phone: 05-28-2021 18:41-0400 SaO2% (BldA) [Mass fraction] 98 % Kia Sharma CNP Work Phone: [facility] Work Phone: 05-28-2021 18:41-0400 Systolic blood pressure 122 mm[Hg] Kia Sharma CNP Work Phone: [facility] Work Phone: 10-14-2020 13:00-0400 Diastolic blood pressure 68 mm[Hg] Anthony Galloway MD Work Phone: [facility] [employer] Work Phone: 10-14-2020 13:00-0400 Heart rate 60 /min Anthony Galloway MD Work Phone: [facility] Work Phone: 10-14-2020 13:00-0400 Respiratory rate 16 /min Anthony Galloway MD Work Phone: [facility] Work Phone: 10-14-2020 13:00-0400 SaO2% (BldA) [Mass fraction] 99 % Anthony Galloway MD Work Phone: [facility] Work Phone: 10-14-2020 13:00-0400 Systolic blood pressure 114 mm[Hg] Anthony Galloway MD Work Phone: [facility] Work Phone: 10-14-2020 12:25-0400 Body temperature 97.39 [degF] Anthony Galloway MD Work Phone: [facility] Work Phone: 10-14-2020 09:35-0400 Body height 172.7 cm Anthony Galloway MD Work Phone: [facility] Work Phone: 10-14-2020 09:35-0400 Body mass index (BMI) [Ratio] 20.13 kg/m2 Anthony Galloway MD Work Phone: [facility] Work Phone: 10-14-2020 09:35-0400 Body weight 60.06 kg Anthony Galloway MD Work Phone: [facility] Work Phone: 05-27-2020 22:19-0400 Body Temperature 97.5 [degF] [facility] Work Phone: 05-27-2020 22:19-0400 BP Diastolic 79 mm[Hg] [facility] Work Phone: 05-27-2020 22:19-0400 BP Systolic 133 mm[Hg] [facility] Work Phone: 05-27-2020 22:19-0400 Pulse (Heart Rate) 94 /min [facility] Work Phone: 05-27-2020 22:19-0400 Pulse Oximetry 98 % Sidradha Norris [facility] Work Phone: 05-27-2020 22:19-0400 Respiratory Rate 16 /min Sid [facility] Work Phone: 04-03-2020 16:21-0500 BMI (Body Mass Index) 21.9 kg/m2 [facility] Work Phone: 04-03-2020 16:21-0500 Body Temperature 97.9 [degF] [facility] Work Phone: 04-03-2020 16:21-0500 Body weight 67.13 kg [facility] Work Phone: 04-03-2020 16:21-0500 BP Diastolic 82 mm[Hg] [facility] Work Phone: 04-03-2020 16:21-0500 BP Systolic 138 mm[Hg] [facility] Work Phone: 04-03-2020 16:21-0500 BSA (Body Surface Area) 1.82 m2 [facility] Work Phone: 04-03-2020 16:21-0500 Height 175.26 cm [facility] Work Phone: 04-03-2020 16:21-0500 Pulse (Heart Rate) 77 /min [facility] Work Phone: 04-03-2020 16:21-0500 Pulse Oximetry 96 % [facility] Work Phone: 04-03-2020 16:21-0500 Respiratory Rate 18 /min [facility] Work Phone: 04-03-2020 16:21-0500 SaO2% (BldA) [Mass fraction] 96 % Kia Sharma [facility] Work Phone: [facility] Work Phone: 03-20-2020 11:57-0500 BMI (Body Mass Index) 21.4 kg/m2 Kia Sharma [facility] Work Phone: 03-20-2020 11:57-0500 Body weight 65.77 kg Kiajace Sharma [facility] Work Phone: 03-20-2020 11:57-0500 BSA (Body Surface Area) 1.8 m2 Kiajace Sharma [facility] Work Phone: 03-20-2020 11:57-0500 Height 175.26 cm [facility] Work Phone: 02-25-2020 21:28-0500 BMI (Body Mass Index) 23.22 kg/m2 [place] 02-25-2020 21:28-0500 Body Temperature 98.2 [degF] [place] 02-25-2020 21:28-0500 Body weight 70.31 kg [place] 02-25-2020 21:28-0500 BP Diastolic 76 mm[Hg] [place] 02-25-2020 21:28-0500 BP Systolic 144 mm[Hg] [place] 02-25-2020 21:28-0500 Height 174 cm [place] 02-25-2020 21:28-0500 Pulse (Heart Rate) 73 /min [place] 02-25-2020 21:28-0500 Pulse Oximetry 100 % [place] 02-25-2020 21:28-0500 Respiratory Rate 16 /min [place] 02-06-2020 17:44-0500 Respiratory Rate 16 /min [facility] [place] 02-06-2020 17:19-0500 BMI (Body Mass Index) 23.57 kg/m2 [facility] [place] 02-06-2020 17:19-0500 Body Temperature 99.61 [degF] [facility] [place] 02-06-2020 17:19-0500 Body weight 70.31 kg [facility], [place] 02-06-2020 17:19-0500 BP Diastolic 60 mm[Hg] [facility] [place] 02-06-2020 17:19-0500 BP Systolic 120 mm[Hg] [facility] [place] 02-06-2020 17:19-0500 Height 172.7 cm [facility] 02-06-2020 17:19-0500 Pulse (Heart Rate) 81 /min [facility] 02-06-2020 17:19-0500 Pulse Oximetry 98 % [facility] 12-24-2019 12:27-0400 BMI (Body Mass Index) 23.42 kg/m2 [facility] [place] 12-24-2019 12:27-0400 Body Temperature 97.9 [degF] [facility] [place] 12-24-2019 12:27-0400 Body weight 69.85 kg [facility] 12-24-2019 12:27-0400 BP Diastolic 64 mm[Hg] [facility] [place] 12-24-2019 12:27-0400 BP Systolic 122 mm[Hg] [facility] [place] 12-24-2019 12:27-0400 Pulse (Heart Rate) 68 /min [facility] [place] 12-24-2019 12:27-0400 Pulse Oximetry 99 % [facility] [place] 12-24-2019 12:27-0400 Respiratory Rate 16 /min [facility] NEGATED: Highlighted row BMI (Body Mass Index) [facility] NEGATED: Highlighted row BMI (Body Mass Index) [facility] NEGATED: Highlighted row BMI (Body Mass Index) [facility] NEGATED: Highlighted row Body Temperature [facility] NEGATED: Highlighted row Body Temperature [facility] NEGATED: Highlighted row Body Temperature [facility] NEGATED: Highlighted row Body weight [facility] NEGATED: Highlighted row Body weight [facility] NEGATED: Highlighted row Body weight [facility] NEGATED: Highlighted row BP Diastolic [facility] NEGATED: Highlighted row BP Diastolic [facility] NEGATED: Highlighted row BP Diastolic [facility] NEGATED: Highlighted row BP Systolic [facility] NEGATED: Highlighted row BP Systolic [facility] NEGATED: Highlighted row BP Systolic [facility] NEGATED: Highlighted row Height [facility] NEGATED: Highlighted row Height [facility] NEGATED: Highlighted row Height [facility] NEGATED: Highlighted row Pulse (Heart Rate) [facility] NEGATED: Highlighted row Pulse (Heart Rate) [facility] NEGATED: Highlighted row Pulse (Heart Rate) [facility] NEGATED: Highlighted row Pulse Oximetry [facility] NEGATED: Highlighted row Pulse Oximetry [facility] NEGATED: Highlighted row Pulse Oximetry [facility] NEGATED: Highlighted row Respiratory Rate [facility] NEGATED: Highlighted row Respiratory Rate [facility] NEGATED: Highlighted row Respiratory Rate [facility] Encounters Encounter Date Encounter Type Care Provider Facility Start: 10-23-2023 End: 10-23-2023 ambulatory YURIY DALJIT Not Available Start: 10-16-2023 End: 10-16-2023 ambulatory GENESIS OJEDA Not Available Start: 10-02-2023 End: 10-02-2023 ambulatory YURIY DALJIT Not Available Start: 09-29-2023 End: 09-29[facility]: 09-18-[facility]23 End: 09-18-2023 ambulatory GENESIS RUSTY Not Available Start: 09-12-2023 End: 09-12-2023 ambulatory BRENDA Duarte [facility] Start: 09-12-2023 End: 09-12-2023 Subsequent hospital visit by physician Brenda Gerald CardosoHailee REIMBURSEMENT CONSULTANT - CNM Work Phone: [facility] Start: 09-04-2023 End: 09-04-2023 ambulatory VIPIN MICHAEL [facility] Start: 09-04-2023 End: 09-04-2023 ambulatory YURIY DALJIT Not Available Start: 09-02-2023 End: 09-03-2023 [facility] Start: 08-24-2023 End: 08-24-2023 ambulatory [facility] Start: 08-24-2023 End: 08-24-2023 Subsequent hospital visit by physician Jagdeep [facility] Work Phone: [facility] Delivery Start: 08-03-2023 End: 08-03-2023 ambulatory GENESIS RUSTY Not Available Start: 07-06-2023 End: 07-06-2023 ambulatory YURIY DALJIT Not Available Start: 06-30-2023 End: 06-30-2023 Emergency department patient visit KIAJace SHARMA [facility] Start: 06-20-2023 End: 06-20-2023 ambulatory YURIY DALJIT Not Available Start: 05-23-2023 End: 05-23-2023 ambulatory YURIY DALJIT Not Available Start: 05-18-2023 End: 05-18-2023 Emergency department patient visit KIAJace SHARMA [facility] Start: 05-01-2023 End: 05-01-2023 ambulatory YURIY GREENE [facility] Start: 05-01-2023 End: 05-01-2023 Subsequent hospital visit by physician Kia Sharma REIMBURSEMENT CONSULTANT - [employer] Work Phone: [facility] Start: 04-27-2023 End: 04-27-2023 ambulatory YURIY DALJIT Not Available Start: 08-03-2022 End: 08-03-2022 Emergency department patient visit Samara Paulino MD Work Phone: [facility] ED Comment on above: Flank pain (Primary Dx); Urinary tract infection without hematuria, site unspecified Start: 07-27-2022 End: 07-27-2022 [facility] visit, estab pt Mariposa Duncan [employer] Work Phone: [facility] Work Phone: Start: 06-03-2022 End: 06-05-2022 Subsequent hospital visit by physician Kulwinder Das Radiologist [facility] Ultrasound Comment on above: Abscess of female br east Start: 04-24-2022 End: 04-24-2022 Emergency department patient visit Kia Sharma APRN - [employer] Work Phone: [facility] ED Comment on above: Nausea vomiting and diarrhea (Primary Dx) Start: 03-15-2022 End: 03-15-[address] YURIY SABILLON Facility: Start: 03-04-2022 End: 03-04-2022 Subsequent hospital visit by physician Geoff Miller MD Work Phone: [facility] OR Comment on above: Abscess of right lynette ast (Primary Dx) Start: 03-01-2022 End: 03-01-2022 Emergency department patient visit Nicholas Denton MD Work Phone: [facility] ED Comment on above: Cellulitis of right breast (Primary Dx) Start: 10-26-2021 End: 10-29-2021 Evaluation and management of inpatient PHYSICIAN NO FAMILY Facility:[facility] Start: 10-26-2021 End: 10-29-2021 Evaluation and management of inpatient PHYSICIAN NO FAMILY [facility] [place] [address] Start: 08-17-2021 End: 08-17-2021 FQHC visit, estab pt Halima Argueta [facility] Work Phone: [facility] Work Phone: Start: 08-17-2021 End: 08-17-2021 FQHC visit, estab pt Kia Sharma [employer] Work Phone: [facility] Work Phone: Start: 07-15-2021 End: 07-15-2021 FQHC visit, estab pt Halimaashok Argueta [facility] Work Phone: [facility] Work Phone: Start: 07-15-2021 End: 07-15-2021 FQHC visit, estab pt Kia Edith [employer] Work Phone: [facility] Work Phone: Start: 07-01-2021 End: 07-01-2021 FQ visit, estab pt Kia Sharma [employer] Work Phone: [facility] Work Phone: Start: 05-29-2021 End: 05-29-2021 ambulatory KIA SHARMA [facility] Start: 05-28-2021 End: 05-28-2021 Subsequent hospital visit by physician AGNES CHEN [facility] Start: 05-28-2021 End: 05-28-2021 FQHC visit, estab pt Kia Sharma [employer] Work Phone: [facility] Work Phone: Start: 03-25-2021 End: 03-25-2021 Subsequent hospital visit by physician [facility] Comment on above: Vaginal discharge Start: 03-10-2021 End: 03-10-2021 Subsequent hospital visit by physician [facility] Comment on above: Irregular menstrual cycle Start: 10-14-2020 End: 10-14-2020 Subsequent hospital visit by physician Anthony Galloway MD Work Phone: [facility] OR Comment on above: 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) Start: 10-09-2020 End: 10-13-2020 Patient encounter status [facility] Start: 10-09-2020 End: 10-13-2020 Subsequent hospital visit by physician Kulwinder Covid19 Pat Screening Schedule [facility] PRE ADMIT Comment on above: Preop testing Start: 09-25-2020 End: 09-25-2020 Patient encounter status [facility] Schedule [facility] PRE ADMIT Start: 09-25-2020 End: 09-25-2020 Subsequent hospital visit by physician [facility] Covid19 Pat Screening Schedule [facility] PRE ADMIT Comment on above: Preop testing (Prima ry Dx) Start: 08-19-2020 End: 08-19-2020 Subsequent hospital visit by physician [facility] Laboratory Comment on above: 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 Start: 05-27-2020 End: 05-27-2020 Emergency department patient visit Sid Norris Work Phone: [facility] ED Comment on above: Dental infection (Pr imary Dx) Start: 04-03-2020 End: 04-03-2020 Established patient Kia Sharma Work Phone: [facility] Work Phone: Start: 04-03-2020 End: 04-03-2020 General Kia Sharma [facility] Work Phone: [facility] Work Phone: Start: 04-03-2020 End: 04-03-2020 General Halima Argueta [facility] Work Phone: [facility] Work Phone: Start: 04-02-2020 End: 04-02-2020 [facility] Comment on above: Women's annual routi ne gynecological examination Start: 03-20-2020 End: 03-20-2020 General Halima Argueta Work Phone: [facility] Work Phone: Start: 03-20-2020 End: 03-20-2020 Telemedicine consultation with patient Kia Sharma Work Phone: [facility] Work Phone: Start: 02-25-2020 End: 02-25-2020 Emergency department patient visit Sid Norris Work Phone: [facility] ED Comment on above: Bacterial vaginosis (Primary Dx); Vaginal bleeding Start: 02-06-2020 End: 02-06-2020 Emergency department patient visit [facility] ED Comment on above: Dental abscess (Prim rachele Dx); Dental caries Start: 12-24-2019 End: 12-24-2019 Emergency department patient visit [facility] ED Comment on above: Dental infection (Pr imary Dx) Start: 02-13-2018 End: 02-15-2018 Evaluation and management of inpatient FEI LOO [facility] Start: 02-20-2016 End: 02-23-2016 Evaluation and management of inpatient [facility] Start: 05-12-2015 End: 05-15-2015 Evaluation and management of inpatient [facility] Start: 02-11-2014 End: 02-14-2014 Evaluation and management of inpatient [facility] Start: 04-28-2007 End: 05-28-2007 Discharged Recurring [facility] Start: 02-27-2007 End: 03-29-2007 Discharged Recurring [facility] Start: 01-27-2007 End: 02-26-2007 Discharged Recurring [facility] Start: 11-27-2006 End: 12-27-2006 [facility] Start: 09-27-2006 End: 10-27-2006 Discharged Recurring [facility] Start: 08-27-2006 End: 09-26-2006 Discharged Recurring [facility] Start: 07-28-2006 End: 09-26-2006 Discharged Recurring [facility] Start: 06-27-2006 End: 07-27-2006 Discharged Recurring [facility] Start: 05-28-2006 End: 06-26-2006 [facility] Start: 04-27-2006 End: 05-27-2006 [facility] Start: 03-30-2006 End: 04-26-2006 Discharged Recurring [facility] Start: 02-27-2006 End: 03-29-2006 Discharged Recurring [facility] Start: 01-27-2006 End: 02-26-2006 Discharged Recurring [facility] Start: 12-28-2005 End: 01-26-2006 Discharged Recurring [facility] Start: 11-27-2005 End: 12-27-2005 Discharged Recurring [facility] Start: 10-28-2005 End: 11-26-2005 Discharged Recurring [facility] Start: 09-27-2005 End: 11-26-2005 Discharged Recurring [facility] Start: 09-27-2005 End: 10-27-2005 Discharged Recurring [facility] Start: 08-27-2005 End: 09-26-2005 [facility] Start: 06-27-2005 End: 07-27-2005 Discharged Recurring [facility] Start: 04-27-2005 End: 05-27-2005 [facility] Start: 03-30-2005 End: 04-26-2005 [facility] Start: 02-27-2005 End: 03-29-2005 [facility] Start: 01-27-2005 End: 02-26-2005 [facility] Start: 12-28-2004 Registered Recurring [facility] Start: 11-27-2004 End: 12-27-2004 Discharged Recurring [facility] Start: 11-27-2004 End: 12-27-2004 Discharged Recurring [facility] Start: 11-27-2004 Registered Recurring [facility] Start: 10-28-2004 End: 11-26-2004 Discharged Recurring [facility] Start: 10-28-2004 End: 11-26-2004 Discharged Recurring [facility] Start: 09-27-2004 End: 10-27-2004 Discharged Recurring [facility] Start: 09-27-2004 End: 10-27-2004 [facility] Start: 09-02-2004 End: 09-26-2004 [facility] Start: 09-02-2004 End: 09-26-2004 [facility] Start: 05-17-2000 End: 05-27-2000 Discharged Recurring [facility] Procedures Date Procedure Procedure Detail Performing Clinician Start: 09-12-2023 Urnls dip stick/tabl et rgnt auto w/o microscopy Brenda Stephen REIMBURSEMENT CONSULTANT - CNM Work Phone: Start: 09-02-2023 H/O: section History of delivery affecting Brenda Stephen REIMBURSEMENT CONSULTANT - CNM Work Phone: Start: 08-24-2023 Urinalysis [...] blood pressure <130 mm hg Mariposa Duncan [employer] Work Phone: Start: 07-27-2022 Urine test visual color cmprsn meths Mariposa Duncan [employer] Work Phone: Start: 06-03-2022 Diagnostic mammograp hy [...] test visual color cmprsn meths Peterson Benito REIMBURSEMENT CONSULTANT - [employer] Work Phone: Start: 08-17-2021 Most recent diastoli c blood pressure < 80 mm hg Kia Sharma [employer] Work Phone: Start: 08-17-2021 Most recent systolic blood pressure <130 mm hg Kia Sharma [employer] Work Phone: Start: 08-17-2021 Psychotherapy w/hussein ent 30 minutes Halmiachuck [facility] Work Phone: Start: 07-15-2021 Most recent diastoli c blood pressure < 80 mm hg Kia Sharma [employer] Work Phone: Start: 07-15-2021 Most recent systolic blood pressure <130 mm hg Kia Sharma [employer] Work Phone: Start: 07-15-2021 Psychotherapy w/hussein ent 30 minutes Halima Argueta [facility] Work Phone: Start: 07-01-2021 Most recent diastoli c blood pressure < 80 mm hg Kia Sharma [facility] Work Phone: Start: 07-01-2021 Most recent systolic blood pressure <130 mm hg Kia Sharma [employer] Work Phone: Start: 05-28-2021 Antibody hiv-1&hiv-2 single result Kia Sharma [employer] Work Phone: Start: 05-28-2021 Most recent diastoli c blood pressure < 80 mm hg Kia Sharma [facility] Work Phone: Start: 05-28-2021 Most recent systolic blood pressure <130 mm hg Kia Sharma [facility] Work Phone: Start: 05-28-2021 Pt-focused hlth risk assmt score doc stnd instrm Kia Sharma [facility] Work Phone: Start: 05-28-2021 Viral screening Visit For: Scr eening Exam For Herpes Kia Sharma [facility] Work Phone: Start: 03-10-2021 End: 03-10-2021 Gonadotropin follicle stimulating hormone Anthony Galloway MD Work Phone: Start: 10-14-2020 Urine test visual color cmprsn meths Anthony Galloway MD Work Phone: Start: 10-09-2020 COVID-19 Sabas siddiqi MD Work Phone: Start: 04-02-2020 Microscopic observat ion [Identifier] in Cervix by Cyto stain Start: 03-20-2020 delivery only Kia Sharma Start: 03-20-2020 section Kia Sharma [facility] Work Phone: Start: 03-20-2020 Psychotherapy w/hussein [...] LOO Start: 02-13-2018 DIET GENERAL FEI AMIN TIP FINISHER Start: 02-13-2018 FULL CODE FEI AMIN TIP FINISHER Start: 02-13-2018 URINE DRUG SCREEN JUSTINE LOO Start: 02-13-2018 Urine test visual color cmprsn meths FEI AMINPTA Start: 02-13-2018 VITAL SIGNS FEI AMIN TIP FINISHER Start: 02-13-2018 PATIENT STATUS (DIRECT) FEI LOO SARS Antigen (LFIA) PHYSICIA N NO FAMILY Plan of Treatment Date Care Activity Detail Author Start: 2053 Respiratory Syncytia l Virus (RSV) or age 60 yrs+ (1 - 1-dose 60+ series) Respiratory Syncytial Virus (RSV) or age 60 yrs+ (1 - 1-dose 60+ series) [facility] Start: 03-21-2027 DTaP/Tdap/Td vaccine (2 - Td or Tdap) DTaP/Tdap/Td vaccine (2 - Td or Tdap) [facility] Start: 03-21-2027 DTaP/Tdap/Td vaccine (2 - Td) DTaP/Tdap/Td vaccine (2 - Td) [place] Start: 04-02-2025 Screening for malign ant neoplasm of cervix [facility] Start: 10-29-2023 Respiratory Syncytia l Virus (RSV) or age 60 yrs+ (1 - Risk 1-dose series) Respiratory Syncytial Virus (RSV) or age 60 yrs+ (1 - Risk 1-dose series) [facility] Start: 09-28-2023 Influenza vaccination [facility] Start: 08-25-2023 Tdap Vaccine during Tdap Vaccine during [facility] Start: 04-02-2023 Screening for malign ant neoplasm of cervix [facility] Start: 09-27-2022 Influenza vaccination [facility] Start: 08-25-2022 FQHC visit, estab pt Medical E stablished Patient [facility] Work Phone: Start: 07-27-2022 End: 07-27-2022 Patient education based on identified need [facility] Start: 07-27-2022 CBC W Auto Different ial panel - Blood [facility] Start: 04-25-2022 End: 04-25-2022 Patient encounter procedure 04/25/2022 Appointment Radiology Radiologist, [facility] Start: 03-04-2022 End: 03-04-2022 Incision & drainage abscess simple/single BREAST INCISION AND DRAINAGE Abscess of right breast 03/04/2022 12:36 PM [facility] Start: 10-29-2021 [facility] Work Phone: Start: 10-28-2021 Influenza vaccination Flu vacc ine (Season Ended) [facility] Start: 10-26-2021 Referral to Boom Supervisor [facility] Work Phone: Start: 10-26-2021 Hospital admission [facility] Work Phone: Start: 09-27-2021 Influenza vaccination Flu vaccine (# 1) [facility] Start: 09-16-2021 FQHC visit, estab pt Medical E stablished Patient [facility] Work Phone: Start: 08-17-2021 FQHC visit, estab pt Medical E stablished Patient [facility] Work Phone: Start: 08-17-2021 End: 08-17-2021 Patient education based on identified need [facility] Start: 07-15-2021 FQHC visit, estab pt Medical E stablished Patient [facility] Work Phone: Start: 07-15-2021 End: 07-15-2021 Patient education based on identified need [facility] Start: 07-01-2021 End: 07-01-2021 Patient education based on identified need [facility] Start: 05-28-2021 End: 05-28-2021 Patient education based on identified need [facility] Start: 04-14-2021 End: 04-14-2021 Patient encounter procedure 04/14/2021 Office Visit Obstetrics and Gynecology Anthony Galloway MD [address] [place], [place] [id number] [facility] Start: 03-05-2021 FQHC visit, estab pt Medical E stablished Patient [facility] Work Phone: Start: 10-28-2020 Influenza vaccination [facility] Start: 10-14-2020 End: 10-14-2020 Admission to same day surgery center 10/14/2020 Surgery IP Unit Anthony Galloway MD [address] [place], [place] [id number] DILATATION AND CURETTAGE LEEP-ENDOCERVICAL CURETTAGE [facility] Comment on above: DILATATION AND CURET TAGE LEEP-ENDOCERVICAL CURETTAGE Start: 10-14-2020 Subsequent hospital visit by physician 10/14/2020 Hospital Encounter IP Unit Anthony Galloway MD [address] [place] [address] [phone] [facility] Start: 10-09-2020 End: 10-09-2020 Patient encounter procedure 10/09/2020 Appointment Pre-Admission Testing [facility] PRE ADMIT Start: 09-25-2020 End: 09-25-2021 COVID-19 COVID-19 Lab Routine Preop testing Expected: 09/25/2020, Expires: 09/25/2021 [facility] Work Phone: Comment on above: Expected: 09/25/2020 , Expires: 09/25/2021 Start: 04-23-2020 End: 04-23-2020 Procedure visit 04/23/2020 Procedure visit Obstetrics and Gynecology Anthony Galloway MD [address] [place] [address] [phone] [facility] Start: 04-03-2020 End: 04-03-2020 Patient education based on identified need [facility] Start: 04-03-2020 Medical Establ ished Patient [facility] Work Phone: Start: 03-20-2020 End: 03-20-2020 Patient education based on identified need [facility] Start: 10-29-2019 Influenza vaccination Flu vaccine (# 1) [place], [place] Start: 2014 Screening for malign ant neoplasm of cervix Cervical cancer screen [place], [place] Start: 2011 Hepatitis C screening Hepatitis C sc reen [facility] Start: 2009 COVID-19 Vaccine (1) COVID-19 Vaccin e (1) [facility] Work Phone: Start: 2008 HIV screening HIV screen [facility] Start: 2005 COVID-19 Vaccine (1) COVID-19 Vaccin e (1) [facility] Work Phone: Start: 2005 Depression Monitoring Depression Mon [facility] Start: 2005 Depression Screen Depression Screen [facility] Start: 2004 HPV vaccine (1 - 2-d ose series) HPV vaccine (1 - 2-dose series) [place], [place] Start: 1999 Pneumococcal 0-64 ye ars Vaccine (1 - PCV) Pneumococcal 0-64 years Vaccine (1 - PCV) [facility] Start: 1999 Pneumococcal 0-64 ye ars Vaccine (1 of 1 - PPSV23) Pneumococcal 0-64 years Vaccine (1 of 1 - PPSV23) [place] Start: 1999 Pneumococcal 0-64 ye ars Vaccine (1 of 2 - PCV) Pneumococcal 0-64 years Vaccine (1 of 2 - PCV) [facility] Start: 1999 Pneumococcal 0-64 ye ars Vaccine (1 of 2 - PPSV23) Pneumococcal 0-64 years Vaccine (1 of 2 - PPSV23) [facility] Start: 1998 COVID-19 Vaccine (1) COVID-19 Vaccin e (1) [facility] Start: 1994 Varicella vaccine (1 of 2 - 2-dose childhood series) Varicella vaccine (1 of 2 - 2-dose childhood series) [facility] Start: 1993 COVID-19 Vaccine (#1) COVID-19 Vacci ne (#1) [facility] Start: 1993 Hepatitis B vaccine (1 of 3 - 3-dose series) Hepatitis B vaccine (1 of 3 - 3-dose series) [facility] Start: 1993 Hepatitis C screening Hepatitis C sc reen [facility] End: 08-24-2023 Bacteria identified in Urine by Culture Urine culture Microbiology Routine One Time for 1 Occurrences starting 08/24/2023 until 08/24/2023 [facility] Comment on above: One Time for 1 Occur rences starting 08/24/2023 until 08/24/2023 End: 09-12-2023 Bacteria identified in Urine by Culture Urine culture Microbiology Routine One Time for 1 Occurrences starting 09/12/2023 until 09/12/2023 [facility] Comment on above: One Time for 1 Occur rences starting 09/12/2023 until 09/12/2023 End: 02-25-2020 C.trachomatis N.gonorrhoeae DNA C.trachomatis N.gonorrhoeae DNA Microbiology STAT One Time for 1 Occurrences starting 02/25/2020 until 02/25/2020 [facility] [place] Comment on above: One Time for 1 Occur rences starting 02/25/2020 until 02/25/2020 C.trachomatis N.gonorrhoeae DNA C.trachomatis N.gonorrhoeae DNA Microbiology STAT 02/25/2020 10:29 PM EST [place], [place] Culture, Anaerobic a nd Aerobic [facility] Work Phone: Comment on above: Release Upon Orderin g for 1 Occurrences starting 03/04/2022 End: 03-25-2021 Culture, Genital [facility] Work Phone: Comment on above: 1 Occurrences starti ng 03/25/2021 until 03/25/2021 End: 08-03-2022 Culture, Urine [facility] [facility] Phone: Comment on above: Once for 1 Occurrenc es starting 08/03/2022 until 08/03/2022 End: 05-01-2023 Culture, Urine [facility] [facility] Phone: Comment on above: Once for 1 Occurrenc es starting 05/01/2023 until 05/01/2023 End: 05-29-2021 Culture, Virus, Non Respiratory Culture, Virus, Non Respiratory Microbiology Routine Once for 1 Occurrences starting 05/29/2021 until 05/29/2021 [facility] Phone: Comment on above: Once for 1 Occurrenc es starting 05/29/2021 until 05/29/2021 Culture, Virus, Non Respiratory Culture, Virus, Non Respiratory Microbiology Routine 05/28/2021 11:57 PM EDT [facility] Phone: End: 04-02-2020 Cytopathology procedure, preparation of smear, genital source PAP SMEAR Lab Routine Women's annual routine gynecological examination 1 Occurrences starting 04/02/2020 until 04/02/2020 [facility] Comment on above: 1 Occurrences starti ng 04/02/2020 until 04/02/2020 nonstress test nonst ress test OB Routine Daily until discontinued starting 08/25/2023 [facility] [facility] [facility] Phone: Comment on above: Daily until disconti nued starting 08/25/2023 nonstress test nonst ress test OB Routine Daily until discontinued starting 09/13/2023 [facility] [facility] Phone: Comment on above: Daily until disconti nued starting 09/13/2023 End: 05-01-2023 HIV Screen [employer] Comment on above: Once for 1 Occurrenc es starting 05/01/2023 until 05/01/2023 End: 03-04-2022 INITIATE PACU OXYGEN THERAPY PROTOCOL Initiate PACU Oxygen Therapy Protocol Respiratory Care Routine Continuous until discontinued starting 03/04/2022 [facility] Phone: Comment on above: Continuous until dis continued starting 03/04/2022 Oxygen therapy [Mini mum Data Set] Initiate Oxygen Therapy Protocol Respiratory Care Routine Daily until discontinued starting 10/14/2020 [facility] Phone: Comment on above: Daily until disconti nued starting 10/14/2020 Oxygen therapy [Mini mum Data Set] Initiate Oxygen Therapy Protocol Respiratory Care Routine As Needed until discontinued starting 03/04/2022 [employer] Work Phone: Comment on above: As Needed until disc ontinued starting 03/04/2022 Patient Education Schizophrenia (DC) [facility] Behavioral Health DC Instructions [facility] Work Phone: Patient referral [facility] Work Phone: Phase I & II - meter ed glucose Phase I & II - metered glucose Point of Care Testing Routine As Needed until discontinued starting 10/14/2020 [facility] Phone: Comment on above: As Needed until disc ontinued starting 10/14/2020 End: 08-19-2020 Surgical Pathology Surgical Pathology Lab Routine HGSIL (high grade squamous intraepithelial lesion) on Pap smear of cervix 1 Occurrences starting 08/19/2020 until 08/19/2020 [facility] Phone: Comment on above: 1 Occurrences starti ng 08/19/2020 until 08/19/2020 Surgical Pathology Surgical Path ology Lab Routine Release Upon Ordering for 1 Occurrences starting 10/14/2020 [facility] Phone: Comment on above: Release Upon Orderin g for 1 Occurrences starting 10/14/2020 End: 08-24-2023 SVE SVE Point of Care Testing Routine One Time for 1 Occurrences starting 08/24/2023 until 08/24/2023 [employer] Comment on above: One Time for 1 Occur rences starting 08/24/2023 until 08/24/2023 End: 09-12-2023 SVE SVE Point of Care Testing Routine One Time for 1 Occurrences starting 09/12/2023 until 09/12/2023 [employer] Comment on above: One Time for 1 Occur rences starting 09/12/2023 until 09/12/2023 End: 05-01-2023 Calixto levi Ab [employer] Comment on above: Once for 1 Occurrenc es starting 05/01/2023 until 05/01/2023 Immunizations Immunization Date Immunization Notes Care Provider Ralf kim 02-26-2019 Influenza, injectabl e, Madin Yuki Canine Kidney, preservative free, quadrivalent PHYSICIAN NO [facility] Payers Date Payer Category Payer Private Health Insurance [id number] 2021 Self-pay 1993 Unknown [id number] 2.16.8 [id number] 1993 Unknown [id number] 2.16. [id number] 1993 Unknown [id number] 2.16.84 [id number] 1993 Unknown [id number] 2.16.8 [id number] 1993 Unknown [id number] 2.16.8 [id number] 1993 Unknown [id number] 2.16.8 [id number] 1993 Unknown [id number] 2.16.8 40.1.405346.3.579.2.173 1993 Unknown [id number] 2.16.8 40.1.824850.3.579.2.173 1993 Unknown [id number] 2.16.8 40.1.341164.3.579.2.173 1993 Unknown [id number] 2.16.8 40.1.314648.3.579.2.173 1993 Unknown [id number] 2.16.8 40.1.357827.3.579.2.173 1993 Unknown [id number] 2.16.84 0.1.944837.3.579.2.9 1993 Unknown [id number] 2.16.84 0.1.182807.3.579.2.9 1993 Unknown [id number] 2.16.84 0.1.859778.3.579.2.9 1993 Unknown [id number] 2.16.84 0.1.128388.3.579.2.1258 1993 Unknown [id number] 2.16.84 0.1.869362.3.579.2.9 1993 Unknown [id number] 2.16.84 0.1.475017.3.579.2.9 1993 Unknown [id number] 2.16.84 0.1.066351.3.579.2.9 1993 Unknown [id number] 2.16.84 0.1.434229.3.579.2.9 1993 Unknown [id number] 2.16.84 0.1.171653.3.579.2.9 1993 Unknown [id number] 2.16.84 0.1.496572.3.579.2.1259 1961 Medicaid [id number] Unknown [id number] 2.16.8 [id number] Social History Date Type Detail Facility Start: 12-24-2019 End: 03-01-2022 Tobacco smoking status NHIS Current every day smoker [place], [place] History of tobacco use Cigarette Smoker M [place], [place] Start: 12-24-2019 End: 09-04-2023 Cigarettes smoked current (pack per day) - Reported [place], [place] Start: 12-24-2019 End: 09-12-2023 Tobacco use and exposure Never used [place], [place] Start: 12-24-2019 End: 09-12-2023 Alcohol intake Current non-drinker of alcohol (finding) [place], [place] Start: 1995 Sex Assigned At Not on file M [place], [place] Start: 02-19-2022 End: 04-24-2022 Exposure to SARS-CoV-2 (event) Not sure [place], [place] Assertion Exposure to poll ution (event) [facility] Assertion Tobacco user (finding) [facility] Tobacco smoking status Unknown i f ever smoked [facility] Work Phone: Assertion Social drinker (finding) [facility] Sexually active (finding) [facility] Assertion [facility] Assertion Gender identity finding (finding) [facility] Finding of sexua l orientation (finding) [facility] Moderate cigaret te smoker (10-19 cigs/day) (finding) [facility] Assertion Heavy cigarette smoker (20-39 cigs/day) (finding) [facility] Start: 10-27-2021 Assertion Smoker (finding) [facility] Start: 1995 Sex Assigned At Female F [facility] Start: 03-01-2022 History SDOH Alcohol Frequency 1 [employer] Work Phone: Start: 03-01-2022 History SDOH Alcohol Std Drinks 0 [employer] Work Phone: Start: 03-04-2022 Alcohol Comment barely ever- sociall y [employer] Work Phone: Start: 03-01-2022 End: 09-04-2023 Alcohol Use Disorder Identification Test - Consumption [AUDIT-C] [employer] How often to you hav e a drink containing alcohol? Never [employer] Start: 09-12-2023 Tobacco smoking stat us CTIS Ex-smoker [employer] Start: 03-03-2023 [facility] [employer] NEGATED: Highlighted row Assertion [facility] NEGATED: Highlighted row Assertion Current drinker of alcohol (finding) [facility] NEGATED: Highlighted row Assertion Exposure to pollution (event) [facility] Work Phone: Goals Date Patient Goal Desired Activity /State Functional Status Date Assessment Result Facility 10-29-2021 Functional status Patient at [facility] Work Phone: Mental Status Date Assessment Result Facility 10-29-2021 Cognitive function Cognitive Sta tus Patient at Baseline [facility] Work Phone: Cognitive function Cognitive fun ctioning was normal Cognitive function finding (finding) [facility] Work Phone: Clinical Notes 03-20-2020 to 09-12-2023 [...] may be discharged. 28yo F arrives to [facility] with c/o vaginal discharge, increased [...] pt that she would be shipped to [place] as we do not deliver less than 35 weeks unless emergent. Pt placed on EFM at this time, urine specimen collected and sent to lab. documented in this encounter [facility] 09-12-2023 [facility] Discharg Ana Quintero RN - 09/12/2023 6:51 PM EDT [facility] [address] [id number] [phone] ACTIVITY LIMITATIONS: ( )Up and about as [...] be sent through Care Everywhere.: Abdominal Pain (Icelandic)documented in this encounter [facility] 08-24-2023 Hospital Discharg e instructions Iman Malhotra RN - 08/24/2023 8:40 PM EDT OUTPATIENT DISCHARGE Dr. Laverne Meyer [facility] Dr. Delano Kruse [facility] [address] [facility] [address] [facility] [address] [place] [address] or [place] ACTIVITY LIMITATIONS: ( x )Up and about [...] AND DELIVERY . documented in this encounter [facility] 08-03-2022 Hospital Discharg e instructions Samara [...] cannot be sent through Care Everywhere.Flank Pain (Icelandic)UTI (Urinary Tract Infection): Female (Icelandic)documented in this encounter [facility] [employer] Phone: 07-27-2022 Instructions Includes: Instructions for all patient encounters Discussed nutritional needs teach healthy choices including fruits and vegetables Last Documented On 3 6:56PM ; [facility] Patient education about a pr oper diet Last Documented On 3 6:56PM ; [facility] Patient education about an a sthma action plan Last Documented On 3 8:31AM ; [facility] Discussed concerns about exe rcise : promote physical activity ~ ~Will add symbicort ~ ~Follow up in one month Last Documented On 3 10:19AM ; [facility] Discussed current self-care methods/coping skills. ~Validated and normalized pt?s feelings while assisting patient process recent events. ~Discussed ongoing counseling. ~Discussed lifestyle changes to address chronic illness. ~Supported patient's personal health goals Last Documented On 2 4:59PM ; [facility] Discussed nutritional needs teach healthy choices including fruits and vegetables Last Documented On 2 4:50PM ; [facility] Patient education about a pr oper diet Last Documented On 2 4:50PM ; [facility] Discussed concerns about exe rcise : promote physical activity Last Documented On 2 4:50PM ; [facility] Discussed current self-care methods/coping skills. ~Validated and normalized pt?s feelings while assisting patient process recent events. ~Discussed ongoing counseling. ~Discussed lifestyle changes to address chronic illness. ~Supported patient's personal health goals Last Documented On 2 8:09PM ; [facility] Discussed nutritional needs teach healthy choices including fruits and vegetables Last Documented On 2 4:02PM ; [facility] Patient education about a pr oper diet Last Documented On 2 4:02PM ; [facility] Discussed concerns about exe rcise : promote physical activity Last Documented On 2 4:02PM ; [facility] Discussed nutritional needs teach healthy choices including fruits and vegetables Last Documented On 2 5:37PM ; [facility] Patient education about a pr oper diet Last Documented On 2 5:37PM ; [facility] Discussed concerns about exe rcise : promote physical activity Last Documented On 2 5:37PM ; [facility] Discussed nutritional needs teach healthy choices including fruits and vegetables Last Documented On 2 6:48PM ; [facility] Patient education about a pr oper diet Last Documented On 2 6:48PM ; [facility] Discussed concerns about exe rcise : promote physical activity Last Documented On 2 6:48PM ; [facility] Discussed nutritional needs teach healthy choices including fruits and vegetables Last Documented On 1 4:21PM ; [facility] Patient education about a pr oper diet Last Documented On 1 4:21PM ; [facility] Discussed concerns about exe rcise : promote physical activity Last Documented On 1 4:21PM ; [facility] Explored current self-care m ethods and encouraged patient to continue using them Last Documented On 1 7:54PM ; [facility] Discussed nutritional needs teach healthy choices including fruits and vegetables Last Documented On 1 11:53AM ; [facility] Patient education about a pr oper diet Last Documented On 1 11:53AM ; [facility] Discussed concerns about exe rcise : promote physical activity Last Documented On 1 11:53AM ; [facility] Work Phone: 1([phone]) 320-827905-31-2023 Evaluation note Includes: Assessments for all patient encounters Findings Encounter Date [Body mass index [BMI] 22.0- 22.9, adult] assessment of body mass index Medical Established Patient with Mariposa Duncan CNP 07/27/2022 Last Documented On 3 10:19AM ; [facility] Diabetes Risk Test Score was 0.0 score 07/27/2022 Medical Established Patient with Mariposa Perla [employer] 07/27/2022 Last Documented On 3 10:19AM ; [facility] Esophageal reflux without esophagitis Me dical Established Patient with Mariposa Perla [employer] 07/27/2022 Last Documented On 3 10:19AM ; [facility] Schizoaffective disorder Established Patient with Halima Argueta LPCC-S 08/17/2021 Last Documented On 2 9:40PM ; [facility] Asthma Medical Established Patient with Kia Edith [employer] 08/17/2021 Last Documented On 2 6:20PM ; [facility] Esophageal reflux without esophagitis Me dical Established Patient with Kia Edith [employer] 08/17/2021 Last Documented On 2 6:20PM ; [facility] Schizoaffective disorder Medical Establi shed Patient with Kia Edith [facility] 08/17/2021 Last Documented On 2 6:20PM ; [facility] Z68.20 - Body mass index [BM I] 20.0-20.9, adult Medical Established Patient with Kia Edith [employer] 08/17/2021 Last Documented On 2 6:20PM ; [facility] Schizoaffective disorder Established Patient with Halima Argueta LPCC-S 07/15/2021 Last Documented On 2 11:18AM ; [facility] Schizoaffective disorder Established Patient with Halima Argueta LP[facility]-S 07/15/2021 Last Documented On 2 11:18AM ; [facility] Bipolar disorder NOS Medical Established Patient with Kia Edith [employer] 07/15/2021 Last Documented On 2 9:30AM ; [facility] Esophageal reflux without esophagitis Me dical Established Patient with Kia Edith [employer] 07/15/2021 Last Documented On 2 9:30AM ; [facility] Herpes simplex type I Medical Established Patien t with Kia Edith [facility] 07/15/2021 Last Documented On 2 9:30AM ; [facility] Z68.1 - Body mass index [BMI ] 19.9 or less, adult Medical Established Patient with Kia Edith [employer] 07/15/2021 Last Documented On 2 9:30AM ; [facility] Asthma Medical Established Patient with Kia Edith [employer] 07/01/2021 Last Documented On 2 7:44PM ; [facility] Bipolar disorder NOS Medical Established Patient with Kia Edith [employer] 07/01/2021 Last Documented On 2 7:44PM ; [facility] Herpes simplex type I Medical Established Patien t with Kia Edith [employer] 07/01/2021 Last Documented On 2 7:44PM ; [facility] Schizoaffective disorder Medical Establi shed Patient with Kia Edith [employer] 07/01/2021 Last Documented On 2 7:44PM ; [facility] Z68.20 - Body mass index [BM I] 20.0-20.9, adult Medical Established Patient with Kia Deith [employer] 07/01/2021 Last Documented On 2 7:44PM ; [facility] Diabetes Risk Test Score was one score 05/28/2021 Medical Established Patient with Kia Edith [employer] 05/28/2021 Last Documented On 2 8:39AM ; [facility] Herpes simplex type I Medical Established Patien t with Kia Edith [employer] 05/28/2021 Last Documented On 2 8:39AM ; [facility] No cough Medical Established Patient with Kia Edith [employer] 05/28/2021 Last Documented On 2 8:39AM ; [facility] Visit for: screening for hum an immunodeficiency virus Medical Established Patient with Kia Edith [employer] 05/28/2021 Last Documented On 2 8:39AM ; [facility] Z11.59 - Encounter for nettie kauffman for other viral diseases Medical Established Patient with Kia Edith [employer] 05/28/2021 Last Documented On 2 8:39AM ; [facility] Z68.1 - Body mass index [BMI ] 19.9 or less, adult Medical Established Patient with Kia Edith [employer] 05/28/2021 Last Documented On 2 8:39AM ; [facility] Asthma Medical Established Patient with Kia Sharma [employer] 04/03/2020 Last Documented On 1 1:12PM ; [facility] Body mass index Medical Established Patient with Kia Sharma [employer] 04/03/2020 Last Documented On 1 1:12PM ; [facility] Esophageal reflux without esophagitis Me dical Established Patient with Kia Sharma [employer] 04/03/2020 Last Documented On 1 1:12PM ; [facility] Lower backache Medical Established Patient with Kia Sharma [employer] 04/03/2020 Last Documented On 1 1:12PM ; [facility] Bipolar disorder (per denia vega, diagnosed w/both Bipolar I & II) Telebehavioral Health with Halima Marroquins LPCC-S 03/20/2020 Last Documented On 1 7:55PM ; [facility] Schizoaffective disorder (pe r patient report) Telebehavioral Health with Halimachuck Condonmons LPCC-S 03/20/2020 Last Documented On 1 7:55PM ; [facility] Asthma Telemedicine New Patient with An michelle Sharma [employer] 03/20/2020 Last Documented On 1 9:48AM ; [facility] Lumbago Telemedicine New Patient with An michelle Sharma [employer] 03/20/2020 Last Documented On 1 9:48AM ; [facility] Z68.21 - Body mass index [BM I] 21.0-21.9, adult Telemedicine New Patient with Kia Sharma [employer] 03/20/2020 Last Documented On 1 9:48AM ; [facility] Work Phone: 1(147) 408-582005-31-2023 Progress note* Progress note Date Encounter Last Documented by 07/27/2022 Medical Established Patient Last documented on 07/28/2022; 10:19 AM, Mariposa Duncan CNP; [facility] Active Problems & Conditions - J45.998 - Asthma - M54.50 - Backache Lower - K21.9 - Esophageal Reflux Without Esophagitis - 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 - F25.0 - Schizoaffective Disorder Chief Complaint The Chief Complaint is: Patient states feels like gerd is coming back, patient states that burps smell like rotten eggs or mat sewer went to ER for migraines. Referred [...] BP-Sitting L117/63 mmHg BP Cuff SizeRegular Pulse Rate-Yxkcihi02 bpm Temp-Ksuiwwpb87.3 F Gdmlzf66 in Zwanfe353 lbs 4.8 oz Body Mass Index22 kg/m2 Body Surface Area1.8 m2 Oxygen Qavmwiinor85 % General Appearance: - Awake. - Alert. [...] household were unable to get needed child and adolescent psychologist: No and unable to get other [...] Less than 40 years (0 points) [Pre-DM]. [facility]05-31-2023 Reason for referral (narrative)* Date Encounter Description Provider Reason for Referral 07/27/22 Medical Established Patient Mariposa Duncan [employer] Referral To Mental Health Team; JENIFFER Referral For [facility] Work Phone: 1(871) 537-845202-26-2023 Hospital Discharge instructions* Discharge Instructions* Christopher Stephenson [...] through Care Everywhere. * Nausea and V[facility]iting (Icelandic) [facility]: 1(909) 703-310901-06-2023 History of Present illness Narrative* Martha Melgoza [...] smoked today 03/03/22. [facility] Phone: 1(340) 716-174601-06-2023 Hospital Discharge instructions* Discharge Instructions* Kassidy Davidson [...] to bathe or shower. [facility] Phone: 1(173) 178-999001-03-2023 Hospital Discharge instructions* Discharge Instructions* Nicholas Denton MD - 03/01/2022 8:09 AM EST Take your medications as prescribed. You may take Tylenol Motrin as needed for pain control as wellas warm compresses. Follow-up with your OB budget manager as scheduled. You have been given a referral for general surgeon if this continues for further assessment of possible drainage. * Attachments The following attachments cannot be sent through Care Everywhere. * Cellulitis (Icelandic) [facility] Phone: 1(172) 363-419006-21-2022 Evaluation note Includes: Assessments for all patient encounters Findings Encounter Date Schizoaffective disorder Established Patient with Halima Argueta LPCC-S 08/17/2021 Asthma Medical Established Patient with Kia Sharma CNP 08/17/2021 Esophageal reflux without esophagitis Me dical Established Patient with Kia Edith [employer] 08/17/2021 Schizoaffective disorder Medical Establi shed Patient with Kia Sharma [facility] 08/17/2021 Z68.20 - Body mass index [BM I] 20.0-20.9, adult Medical Established Patient with Kia Edith [employer] 08/17/2021 Schizoaffective disorder BH Established Patient with Halimachuck Marroquins [facility] 07/15/2021 Schizoaffective disorder BH Established Patient with Halima Argueta [facility] 07/15/2021 Bipolar disorder NOS Medical Established Patient with Kia Edith [employer] 07/15/2021 Esophageal reflux without esophagitis Me dical Established Patient with Kia Edith [employer] 07/15/2021 Herpes simplex type I Medical Establishe d Patient with Kia Sharma [facility] 07/15/2021 Z68.1 - Body mass index [BMI ] 19.9 or less, adult Medical Established Patient with Kia Edith [facility] 07/15/2021 Asthma Medical Established Patient with Kia Sharma [employer] 07/01/2021 Bipolar disorder NOS Medical Established Patient with Kai Edith [facility] 07/01/2021 Herpes simplex type I Medical Establishe d Patient with Kia Edith [facility] 07/01/2021 Schizoaffective disorder Medical Establi shed Patient with Kia Sharma [facility] 07/01/2021 Z68.20 - Body mass index [BM I] 20.0-20.9, adult Medical Established Patient with Kia Edith [facility] 07/01/2021 Diabetes Risk Test Score was one score 05/28/2021 Medical Established Patient with Kia Edith [facility] 05/28/2021 Herpes simplex type I Medical Establishe d Patient with Kia Edith [facility] 05/28/2021 No cough Medical Established Patient with Kia Edith [facility] 05/28/2021 Visit for: screening for hum an immunodeficiency virus Medical Established Patient with Kia Edith [facility] 05/28/2021 Z11.59 - Encounter for nettie kauffman for other viral diseases Medical Established Patient with Kia Edith [facility] 05/28/2021 Z68.1 - Body mass index [BMI ] 19.9 or less, adult Medical Established Patient with Kia Edith [facility] 05/28/2021 Asthma Medical Established Patient with Kia Edith [employer] 04/03/2020 Body mass index Medical Established Patient with Kia Edith [facility] 04/03/2020 Esophageal reflux without esophagitis Me dical Established Patient with Kia Sharma [employer] 04/03/2020 Lower backache Medical Established Patient with Kia Edith [employer] 04/03/2020 Bipolar disorder (per denia vega, diagnosed w/both Bipolar I & II) Telebehavioral Health with Halim[place] Marroquins LP[facility] 03/20/2020 Schizoaffective disorder (pe r patient report) Telebehavioral Health with Halima Argueta LP[facility] 03/20/2020 Asthma Telemedicine New Pat ient with Kia Sharma [employer] 03/20/2020 Lumbago Telemedicine New Pat ient with Kia Edith [facility] 03/20/2020 Z68.21 - Body mass index [BM I] 21.0-21.9, adult Telemedicine New Patient with Kia Sharma [employer] 03/20/2020 [facility] Work Phone: [phone] 135-604405-19-2022 Evaluation note Includes: Assessments for all patient encounters Findings Encounter Date Schizoaffective disorder Established [facility] Schizoaffective disorder Establ[facility]/2021 Bipolar disorder NOS Medical Established Patient with Kia Sharma [employer] 07/15/2021 Esophageal reflux without esophagitis Me dical Established Patient with Kia Sharma [employer] 07/15/2021 Herpes simplex type I Medical Establishe d Patient with Kia Sharma [facility] 07/15/2021 Z68.1 - Body mass index [BMI ] 19.9 or less, adult Medical Established Patient with Kia Sharma [employer] 07/15/2021 Asthma Medical Established Patient with Kia Edith [employer] 07/01/2021 Bipolar disorder NOS Medical Established Patient with Kia Edith [employer] 07/01/2021 Herpes simplex type I Medical Establishe d Patient with Kia Edith [employer] 07/01/2021 Schizoaffective disorder Medical Establi shed Patient with Kia Sharma [employer] 07/01/2021 Z68.20 - Body mass index [BM I] 20.0-20.9, adult Medical Established Patient with Kiajace Sharma [employer] 07/01/2021 Diabetes Risk Test Score was one score 05/28/2021 Medical Established Patient with Kia Sharma [employer] 05/28/2021 Herpes simplex type I Medical Establishe d Patient with Kia Edith [facility] 05/28/2021 No cough Medical Established Patient with Kia Sharma [facility] 05/28/2021 Visit for: screening for hum an immunodeficiency virus Medical Established Patient with Kia Sharma [facility] 05/28/2021 Z11.59 - Encounter for nettie kauffman for other viral diseases Medical Established Patient with Kia Sharma [facility] 05/28/2021 Z68.1 - Body mass index [BMI ] 19.9 or less, adult Medical Established Patient with Kia Sharma [facility] 05/28/2021 Asthma Medical Established Patient with Kia Sharma [facility] 04/03/2020 Body mass index Medical Established Patient with Kia Sharma [facility] 04/03/2020 Esophageal reflux without esophagitis Me dical Established Patient with Kia Sharma [facility] 04/03/2020 Lower backache Medical Established Patient with Kia Sharma [facility] 04/03/2020 Bipolar disorder (per denia vega, diagnosed w/both Bipolar I & II) Telebehavioral Health with Halima Argueta [facility] 03/20/2020 Schizoaffective disorder (pe r patient report) Telebehavioral Health with Halima Argueta [facility] 03/20/2020 Asthma Telemedicine New Pat ient with Kia Sharma [facility] 03/20/2020 Lumbago Telemedicine New Pat ient with Kia Sharma [facility] 03/20/2020 Z68.21 - Body mass index [BM I] 21.0-21.9, adult Telemedicine New Patient with Kia Sharma [facility] 03/20/2020 [facility] Work Phone: 1(518) 130-478605-05-2022 Evaluation note Includes: Assessments for all patient encounters Findings Encounter Date Asthma Medical Established Patient with Kia Sharma [facility] 07/01/2021 Bipolar disorder NOS Medical Established Patient with Kia Sharma [facility] 07/01/2021 Herpes simplex type I Medical Establishe d Patient with Kia Sharma [facility] 07/01/2021 Schizoaffective disorder Medical Establi shed Patient with Kia Sharma [facility] 07/01/2021 Z68.20 - Body mass index [BM I] 20.0-20.9, adult Medical Established Patient with Kia Sharma [facility] 07/01/2021 Diabetes Risk Test Score was one score 05/28/2021 Medical Established Patient with Kia Sharma [facility] 05/28/2021 Herpes simplex type I Medical Establishe d Patient with Kia Sharma [facility] 05/28/2021 No cough Medical Established Patient with Kia Sharma [facility] 05/28/2021 Visit for: screening for hum an immunodeficiency virus Medical Established Patient with Kia Sharma [facility] 05/28/2021 Z11.59 - Encounter for scree jamari for other viral diseases Medical Established Patient with Kia Sharma [facility] 05/28/2021 Z68.1 - Body mass index [BMI ] 19.9 or less, adult Medical Established Patient with Kia Sharma [facility] 05/28/2021 Asthma Medical Established Patient with Kia Sharma [facility] 04/03/2020 Body mass index Medical Established Patient with Kia Sharma [facility] 04/03/2020 Esophageal reflux without esophagitis Me dical Established Patient with Kia Sharma [facility] 04/03/2020 Lower backache Medical Established Patient with Kia Sharma [facility] 04/03/2020 Bipolar disorder (per denia vega, diagnosed w/both Bipolar I & II) Telebehavioral Health with Halima Argueta [facility] 03/20/2020 Schizoaffective disorder (pe r patient report) Telebehavioral Health with Halima Argueta [facility] 03/20/2020 Asthma Telemedicine New Pat ient with Kia Sharma [facility] 03/20/2020 Lumbago Telemedicine New Pat ient with Kia Sharma [facility] 03/20/2020 Z68.21 - Body mass index [BM I] 21.0-21.9, adult Telemedicine New Patient with Kia Sharma [facility] 03/20/2020 [facility] Work Phone: 1(807) 830-293104-01-2022 Evaluation note Includes: Assessments for all patient encounters Findings Encounter Date Diabetes Risk Test Score was one score 05/28/2021 Medical Established Patient with Kia Sharma [facility] 05/28/2021 Herpes simplex type I Medical Establishe d Patient with Kia Sharma [facility] 05/28/2021 No cough Medical Established Patient with Kia Sharma [facility] 05/28/2021 Visit for: screening for hum an immunodeficiency virus Medical Established Patient with Kia Sharma [facility] 05/28/2021 Z11.59 - Encounter for scree jamari for other viral diseases Medical Established Patient with Kia Sharma [facility] 05/28/2021 Z68.1 - Body mass index [BMI ] 19.9 or less, adult Medical Established Patient with Kia Sharma [facility] 05/28/2021 Asthma Medical Established Patient with Kia Sharma [facility] 04/03/2020 Body mass index Medical Established Patient with Kia Sharma [facility] 04/03/2020 Esophageal reflux without esophagitis Me dical Established Patient with Kia Sharma [facility] 04/03/2020 Lower backache Medical Established Patient with Kia Sharma [facility] 04/03/2020 Bipolar disorder (per denia vega, diagnosed w/both Bipolar I & II) Telebehavioral Health with Halima Marroquins [facility] 03/20/2020 Schizoaffective disorder (pe r patient report) Telebehavioral Health with Halima Condonmons [facility] 03/20/2020 Asthma Telemedicine New Pat ient with Kia Sharma [facility] 03/20/2020 Lumbago Telemedicine New Pat ient with Kia Sharma [facility] 03/20/2020 Z68.21 - Body mass index [BM I] 21.0-21.9, adult Telemedicine New Patient with Kia Sharma [facility] 03/20/2020 [facility] Work Phone: 1(875) 705-803108-18-2021 History of Present illness Narrative* Irish Nelson [...] RN - 10/14/2020 12:39 PM EDT Rogers AUTO BODY REPAIRER in to see patient. Patient's boyfriend called to orange picker machine operator. * Rufina Hamilton RN - 09/28/2020 [...] calls at this time. [facility] 1(213) 401-116702-05-2021 Evaluation note Includes: Assessments for all patient encounters Findings Encounter Date Asthma Medical Established Patient with Kia Sharma [facility] 04/03/2020 Body mass index Medical Established Patient with Kia Sharma [facility] 04/03/2020 Esophageal reflux without esophagitis Me dical Established Patient with Kia Sharma [facility] 04/03/2020 Lower backache Medical Established Patient with Kia Sharma [facility] 04/03/2020 Bipolar disorder (per denia vega, diagnosed w/both Bipolar I & II) Telebehavioral Health with Halima Argueta [facility] 03/20/2020 Schizoaffective disorder (pe r patient report) Telebehavioral Health with Halima Argueta [facility] 03/20/2020 Asthma Telemedicine New Pat ient with Kia Sharma [facility] 03/20/2020 Lumbago Telemedicine New Pat ient with Kia Sharma [facility] 03/20/2020 Z68.21 - Body mass index [BM I] 21.0-21.9, adult Telemedicine New Patient with Kia Sharma [facility] 03/20/2020 [facility] Work Phone: 1(900) 846-461401-22-2021 History general Narrative - Reported Includes: Medical History in patient's chart Description Last Updated per pt report- 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 ~heartb urn 03/20/2020 History of psychiatric disor ders ADHD, manic bipolar 1 and 2, schizoeffective disorder 03/20/2020 History of tooth extraction 03/20/2020 History of asthma 03/20/2020 A recent immunization for flu 03/20/2020 No previous hospitalizations 03/20/2020 [facility] Work Phone: 1(969) 463-446701-22-2021 History general Narrative - Reported Includes: Medical History in patient's chart Description Last Updated per pt report- 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 ~heartb urn 03/20/2020 Last Documented On 1 9:48AM ; [facility] History of psychiatric disor ders ADHD, manic bipolar 1 and 2, schizoeffective disorder 03/20/2020 Last Documented On 1 9:48AM ; [facility] History of tooth extraction 03/20/2020 Last Documented On 1 9:48AM ; [facility] History of asthma 03/20/2020 Last Documented On 1 9:48AM ; [facility] A recent immunization for flu 03/20/2020 Last Documented On 1 9:48AM ; [facility] No previous hospitalizations 03/20/2020 Last Documented On 1 9:48AM ; [facility] Work Phone: Discharge summary Author Osmani baugh [facility] October 29, 2021 9:52am Note Date/Time October 29, 2021 9:52am [facility] [address] [place] [address] Discharge Summary Signed Patient: Bennett Vaughn MR#: [id number] : 1995 Acct:[id number] Age/Sex: 26 / F Adm Date: 2 Loc: Room: [address] [place] [address]: Fleiberto Faust MD Copies to: OsmaniMD Feliberto Borrego [...] 15 Days Qty: 30 1RF Follow Up: Amish Boom Supervisor [Other] (Therapy: Case management: ) Documented By: Osmani Timmons MD 2 0949 Signed By: <Electronically signed by Osmani Timmons MD> 10/29/21 0952 [facility] Work Phone: Evaluation note* Diagnosis HGSIL (high grade squamous intraepithelial lesion) on Pap smear of cervix documented in this encounter [employer] Phone: evaluation note* Diagnosis Preop testing- Primary Preoperative examination, unspecified documented in this encounter [employer] Phone: evalgnzvup note* Diagnosis Preop testing Preoperative examination, unspecified documented in this encounter [employer] Phone: evaltpahuw note* Diagnosis 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 documented in this encounter [employer] Phone: evaleaflsw note* Diagnosis Irregular menstrual cycle documented in this encounter [employer] Phone: evaluation note* Diagnosis Vaginal discharge Leukorrhea, not specified as infective documented in this encounter [employer] Phone: evaluation note* Diagnosis Onset Date Resolution Status Bipolar affective, mixed, sev w/ psych acute Chronic schizophrenia acute PTSD (post-traumatic stress disorder) acute Suicidal ideation acute [facility] Work Phone: Evaluation note* Diagnosis Cellulitis of right breast- Primary documented in this encounter [employer] Work Phone: evaluation note* Diagnosis Abscess of right breast- Primary Inflammatory disease of breast Abscess of right breast Inflammatory disease of breast documented in this encounter [employer] Work Phone: evaluation note* Diagnosis Nausea vomiting and diarrhea- Primary Nausea with vomiting documented in this encounter [employer] Work Phone: evaluation note* Diagnosis Abscess of female breast Inflammatory disease of breast documented in this encounter [facility] [employer] Work Phone: evaluation note* Diagnosis Flank pain- Primary Abdominal pain, unspecified site Urinary tract infection without hematuria, site unspecified documented in this encounter [employer] Work Phone: evaluation note* Diagnosis Abdominal pain- Primary Abdominal pain, unspecified site documented in this encounter [facility] [employer]* Diagnosis Abdominal cramping- Primary Abdominal pain, unspecified site documented in this encounter [facility] Author Feliberto Faust [facility] October 27, 2021 3:07pm Note Date/Time October 27, 2021 3: 07pm [facility] [address] [place] [address] Psychiatry H&P Signed Patient: Bennett Vaughn MR#: [id number] : 1995 Acct:[id number] Age/Sex: 26 / F Adm Date: 2 Loc: Room: [address] [place] [address] Type: ADM IN Attending Dr: Feliberto Faust [...] Substance Use: luciejauna daily Living: boyfriend Employment: [employer] Review of symptoms: Constitutional: Denies chills [...] Appearance Clear Urine pH 7.0 Ur Specific [place] 1.005 Urine Protein Negative Urine Glucose (UA) [...] Feliberto Faust MD> 10/27/21 1507 [facility] Work Phone: History of Present illness Narrative History of Present Illness not supported for this document type No [facility] of [facility] Work Phone: Hospital Discharge instructions* Instructions* Irish [...] In the meantime, you may take an dlah-axz-bccznif analgesic (Tylenol, Anacin, etc.) and use a heating pad applied to the lower abdomen. Please call the office as soon as possible for a post-operative visit in two weeks. If you experience any unusual amount of bleeding or side effects that you cannot readily explain, please do not hesitate to call the office. documented in this [facility] Work Phone: Hospital Discharge instructions Additional Instructions Regular diet No [facility] Work Phone: Instructions Instructions not supported for this document type No Instructions [facility] Work Phone: Patient problem outcome Narrative Includes: Evaluations & Outcomes for active Goals No Outcomes [facility] Work Phone: Progress note Author Osmani bauhg [facility] October 28, 2021 12:18pm Note Date/Time October 28, 2021 12:18pm [facility] [address] [place] [address] Psychiatry Progress Note Signed Patient: Bennett Vaughn MR#: [id number] : 1995 Acct:[id number] Age/Sex: 26 / F Adm Date: 2 Loc: Room: 5X1445-2 Type : ADM IN Attending Dr: Feliberto [...] Osmani Timmons MD> 10/28/21 1218 [facility] Work Phone: Reason for referral (narrative)No Reason for Referral [facility] Work Phone: Review of systems Narrative - Reported Review of Systems not supported for this document type No Review of Systems [facility] Work Phone: Summary Purpose Family History No Family History Records Found Description Last Updated father unknown 03/20/2020 Fraternal history of asthma 03/20/2020 Maternal history of hypertension 021 Relationship Condition Age at Onset Recorded Date/T jama Not Specified Bipolar affective disorder Unknown Hypertension Unknown brother Asthma Unknown Description Last Updated father unknown 03/20/2020 Last Documented On 1 9:48AM ; [facility] Fraternal history of asthma 03/20/2020 Maternal history of hypertension 021 Advance Directives No Advanced Directives Records FoundDocuments on File Type Date Recorded Patient Supervisor Computer Operations Expl anation ACP-Advance Directive ACP-Power of Freight Car Cleaner Latest Code Status on File Code Status Date Activated Date Inactivated Comments Full Code 02/13/2018 11:30 AM 02/15/2018 11:04 PM Full Code 07/15/2017 3:32 AM 07/17/2017 3:26 PM Full Code 07/15/2017 3:31 AM 07/15/2017 3:32 AM Full Code 10/29/2016 5:43 AM 11/02/2016 12:08 AM Full Code 02/14/2015 3:50 AM 02/17/2015 4:19 PM Documents on File Type Date Recorded Patient Supervisor Computer Operations Expl anation ACP-Advance Directive ACP-Power of Freight Car Cleaner Latest Code Status on File Code Status [...] sent through Care Everywhere. * Tooth: Abscessed (Icelandic) documented in this encounter* Instructions* Sid Norris [...] sent through Care Everywhere. * Bacterial Vaginosis (Icelandic) * Vaginal Bleeding (Icelandic) documented in this encounter* Instructions* Irina Ojeda PA-C - 02/06/2020 Call your dentist to arrange follow-up for recheck this week. * Attachments The following attachments cannot be sent through Care Everywhere. * Tooth: Abscessed (Icelandic) documented in this encounter* Instructions* Jose Saldaña APRN - CNP - 12/24/2019 Take amoxicillin as prescribed. Return to the emergency department for worsening symptoms. * Attachments The following attachments cannot be sent through Care Everywhere. * Dental Care: Pre-Dental Work Precautions: General Info (Icelandic) documented in this encounter Assessments Diagnosis Dental infection Acute apical periodontitis of pulpal origin Diagnosis Dental abscess Periapical abscess without sinus Dental caries Unspecified dental caries Diagnosis Bacterial vaginosis- Primary Vaginitis and vulvovaginitis, unspecified Vaginal bleeding Other specified noninflammatory disorder of vagina Findings Encounter Date Bipolar disorder (per denia vega, diagnosed w/both Bipolar I & II) Telebehavioral Health with Halima Argueta [facility] 03/20/2020 Schizoaffective disorder (pe r patient report) Telebehavioral Health with Halima Argueta [facility] 03/20/2020 Asthma Telemedicine New Pat ient with Kia Sharma CNP 03/20/2020 Lumbago Telemedicine New Pat ient with Kia Sharma [facility] 03/20/2020 Z68.21 - Body mass index [BM I] 21.0-21.9, adult Telemedicine New Patient with Kia Sharma [facility] 03/20/2020 Diagnosis Women's annual routine gynecological examination Findings Encounter Date Asthma Medical Established Patient with Kia Sharma [facility] 04/03/2020 Body mass index Medical Established Patient with Kia Sharma [facility] 04/03/2020 Esophageal reflux without esophagitis Me dical Established Patient with Kia Sharma [facility] 04/03/2020 Lower backache Medical Established Patient with Kia Sharma [facility] 04/03/2020 Bipolar disorder (per denia vega, diagnosed w/both Bipolar I & II) Telebehavioral Health with Halima Condonmons [facility] 03/20/2020 Schizoaffective disorder (pe r patient report) Telebehavioral Health with Halima Condonmons [facility] 03/20/2020 Asthma Telemedicine New Pat ient with Kia Sharma [facility] 03/20/2020 Lumbago Telemedicine New Pat ient with Kia Sharma [facility] 03/20/2020 Z68.21 - Body mass index [BM I] 21.0-21.9, adult Telemedicine New Patient with Kia Sharma [facility] 03/20/2020 Diagnosis Dental infection- Primary Acute [...] section and content) DATE CREATED AUTHOR 12/08/2018 [facility] DATE CREATED AUTHOR AUTHOR'S ORGANIZ ATION 05/31/2021 [facility] DATE CREATED AUTHOR AUTHOR'S ORGANIZ ATION 03/16/2022 [facility] DATE CREATED AUTHOR AUTHOR'S ORGANIZ ATION 04/02/2022 [facility] DATE CREATED AUTHOR AUTHOR'S ORGANIZ ATION 10/02/2023 [facility] DATE CREATED AUTHOR AUTHOR'S ORGANIZ ATION 10/25/2023 [facility] dical Specialists EPIC Reason for [...] (cervical intraepithelial neoplasia II) SHREYA II Procedures AL CONIZATION CERVIX,LOOP ELECTRD DILATATION AND CURETTAGE LEEP-ENDOCERVICAL CURETTAGE Anthony Galloway MD [address] [place] [address] [facility] Reason Comments Breast Pain Right sided, onset y esterday pm, patient states she had an infection in her right breast a few months ago Specialty Diagnoses / Procedures Referred By Gladis t Referred To Contact Diagnoses Abscess of right breast right breast abcess Procedures AL DRAIN SKIN ABSCESS SIMPLE BREAST INCISION AND DRAINAGE- BREAST Geoff Miller MD [address] [place] [address] [facility] [address] [place] [address] Referral ID Status Reason Start Date Expiration Date Visits Re quested Visits Authorized [id number] 1 1 Reason Comments Nausea Emesis Illness Pt. States she has h ad nausea & vomiting since this am. Reports hot & cold flashes & Occasional dizziness Specialty Diagnoses / Procedures Referred By Gladis vega Referred To Contact Radiology Diagnoses Abscess of female breast Procedures US BREAST LIMITED RIGHT US BREAST COMPLETE RIGHT Geoff Miller MD [address] [place] [address] Referral ID Status Reason Start Date Expiration Date Visits Re quested Visits Authorized [id number] Open 04/18/2022 04/18/2023 1 1 Specialty Diagnoses / Procedures Referred By Gladis vega Referred To Contact Radiology Diagnoses Abscess of female breast Procedures DUSTIN JASMINA DIGITAL DIAGNOSTIC BILATERAL DUSTIN DIGITAL DIAGNOSTIC W OR WO CAD BILATERAL Geoff Miller MD [address] [place], [place] [address] [address] Referral ID Status Reason Start Date Expiration Date Visits Re quested Visits Authorized [id number] Closed 04/18/2022 04/18/2023 1 1 Reason Comments [...] 100 mL IVPB (COMPLETED) 2,000 mg, Intravenous, PRACTICE ADMINISTRATOR TO O.R., 1 dose, On Mon10/14/20 at 0930, Administer within 1 hour prior to incision., Pre-op (day of surgery) 1105 (New Bag - Prov ider: uSn Fagan RN)1135 (Due: Stopped - Provider: Sun [...] PACU only 1215 (Given - Provid er: Summre Sousa RN) oxyCODONE (ROXICODONE) immediate release tablet [...] 100 mL IVPB (COMPLETED) 2,000 mg, IntraVENous, PRACTICE ADMINISTRATOR TO O.R., 1 dose, On Mon03/04/22 at 1115, Antimicrobial Indications: Surgical Prophylaxis, Administer within 1 hour prior to incision. Recommend to repeat in 3-4 hours after initial dose if still intra-op., Pre-op (day of surgery) 1244 (Given - Provid er: Roseanne Kruse APRN - AUTO BODY REPAIRER) dimenhyDRINATE (DRAMAMINE) tablet 50 mg (COMPLETED) 50 [...] at 1300 1303 (Given - Provid er: Jefefrson Mckee RN) PRN Medication Order 04/22/2022 04/23/2022 [...] Jefferson Mckee RN)0831 (Stopped - Provider: Avelina Waytt RN) ketorolac (TORADOL) injection 30 mg (COMPLETED) [...] PHYSICIAN NO FAMILY Primary Care Provider Active Hardware Sales Assistant Relationship Specialty Start Date End Date Kia Sharma, REIMBURSEMENT CONSULTANT - FLATBED STITCHER [address] [place] [address] PCP - General Nurse Practitioner 04/13/22 Hardware Sales Assistant Relationship Specialty Start Date End Date Kia Sharma, REIMBURSEMENT CONSULTANT - FLATBED STITCHER [address] [place] [address] PCP - General Nurse Practitioner 04/13/22 Hardware Sales Assistant Relationship Specialty Start Date End Date Kia Sharma APRN - FLATBED STITCHER [address] [place] [address] PCP - General Nurse Practitioner 04/13/22 Hardware Sales Assistant Relationship Specialty Start Date End Date Kia Sharma REIMBURSEMENT CONSULTANT - FLATBED STITCHER [address] [place] [phone] PCP - General Nurse Practitioner 04/13/22 Hardware Sales Assistant Relationship Specialty Start Date End Date Kia Sharma REIMBURSEMENT CONSULTANT - FLATBED STITCHER [address] [place] [phone] PCP - General Nurse Practitioner 04/13/22 Hardware Sales Assistant Relationship Specialty Start Date End Date Kia Sharma APRN - FLATBED STITCHER [address] [place] [phone] PCP - General Nurse Practitioner 04/13/22 FOR [...] BE BASED ON THE PRIMARY CLINICAL RECORDS. [facility] [employer] [facility]. provides no warranty or guarantee of the accuracy or completeness of information in this document.
[2023-10-31 20:07] VITALS: BP 120/70; PULSE 71
--- NOTE | 2023-10-31 20:35 | US_ITS ---
[address] [address] Patient Name: BENNETT EM MRN: [id number]:[id number] date: 1995 Sex: F Assigned Patient Location: [facility] Current Patient Location: Accession/Order Number: [id number] Exam Date: 10/31/2023 20:40 Report Date: 11/01/2023 05:57 At the request of: HELIO OJEDA Procedure: US OB BPP w non-stress EXAMINATION: US OB BPP w non-stress HISTORY:SGA P05.10 COMPARISON: Ultrasound OB biophysical 10/23/2023 TECHNIQUE: Ultrasound biophysical profile was performed in the radiology department. BREATHING MOVEMENTS: 2 GROSS BODY MOVEMENTS: 2 TONE: 2 QUALITATIVE AMNIOTIC FLUID VOLUME: 2 PRESENTATION: BREECH HEART RATE: 136.36 bpm AMNIOTIC FLUID VOLUME: 11.53 cm GESTATIONAL AGE: 36 weeks 4 days US/US OB BPP w non-stress IMPRESSION: Total biophysical profile score: 8 Electronically authenticated by: HELENA CASTRO Date: 11/01/2023 05:57
== END 2023-10-31 21:10 | disposition home or self-care (01) ==
LOC: US 07:15 → FBC 20:00
PROVIDERS: Visit Provider Physician Assistant
DX: O26.843 Uterine size-date discrepancy, third trimester (principal); Z3A.36 36 weeks gestation of pregnancy
CPT/HCPCS: 76818

== ENCOUNTER 2023-11-01 19:04 | Outpatient (REF) | payer OTHER, SELFPAY ==
--- OUTSIDE RECORDS SUMMARY | 2023-11-01 19:11 | XMS_ITS | CCD ---
Author Organization [facility] Care Team Providers Care Fire Alarm Operator Name Role Phone Bryce De La Garza [...] Provider Unava DO Ed Hoover Emergency Provider [phone] MD Govind Feliberto Admit Provider MD Feliberto [...] Booker APRN, CNP Primary Care Provide r iKa Booker APRN, CNP Primary Care Provide r JAGDEEP VANEGAS Admitting Unavailable D'ABREAU, JAGDEEP Attending Unavailable EDITH, KIA Primary Care Unavailable FERNANDA VIPIN Admitting Unavailable FERNANDA, JUSTAN Attending Unavailable EDITH, KIA Primary Care Unavailable CLINTON TRIVEDI Admitting Unavailable CLINTON TRIVEDI Attending Unavailable EDITH, KIA Primary Care Unavailable EDTIH, KIA Primary Care Unavailable EDITH, KIA Primary [...] mg Start: 05-27-2020 take 2 tablets by [facility] every six hours as needed for [...] pain 10 tablet 0 10/14/2020 10/17/2020 Active [id number] 200 actuat albuterol 0.09 mg/actuat metered dose [...] Routineon 2023 Bilirubin, SemiQt,Ur Negative Normal NEG [facility] Comment on above: Performed By: #### U A #### [facility] [address] [place] [address] [place] [address] Promotional Marketing Agent: Hayden Cartagena MD Blood, Urine Negative Normal NEG [facility] Comment on above: Performed By: #### U A #### [facility] [address] [place] [address] Promotional Marketing Agent: Hayden Cartagena MD Clarity (U) Clear Normal CLEAR [facility] Comment on above: Performed By: #### U A #### [facility] [address] [place], [place] [id number] Promotional Marketing Agent: Hayden Cartagena MD Color (U) Yellow Normal YEL [facility] Comment on above: Performed By: #### U A #### [facility] [address] [place], [place] [phone] Promotional Marketing Agent: Hayden Cartagena MD Glucose Ql (U) Negative Normal NEG [facility] Comment on above: Performed By: #### U A #### [facility] [address] [place] [address] [place], [place] [phone] Promotional Marketing Agent: Hayden Cartagena MD Ketones Ql (U) Negative Normal NEG [facility] Comment on above: Performed By: #### U A #### [facility] [address] [place] [address] Dr[place], [place] [id number] Promotional Marketing Agent: Hayden Cartagena MD Leukocyte esterase Test strip Ql (U) Negative Normal NEG [facility] Comment on above: Performed By: #### U A #### [facility] [address] [place] [address] Dr. [place], [place] [address] Promotional Marketing Agent: Hayden Cartagena MD Nitrite,Ur Negative Normal [facility] Comment on above: Performed By: #### U A #### [facility] [address] [place] [address] Dr. [place], [facility]83 Promotional Marketing Agent: Hayden Cartagena MD PH,Ur 6.0 Normal 5.0-9.0 [facility] Comment on above: Performed By: #### U A #### [facility] [address] [place] [address] [place], [place] [phone] Promotional Marketing Agent: Hayden Cartagena MD Protein Ql (U) Negative Normal NEG [facility] Comment on above: Performed By: #### U A #### [facility] [address] [place] [address] [place], [place] [phone] Promotional Marketing Agent: Hayden Cartagena MD Spec. Cropsey,Ur 1.020 Normal 1.010-1.020 [facility] Comment on above: Performed By: #### U A #### [facility] [address] [place] [address] Promotional Marketing Agent: Hayden Cartagena MD Urobilinogen,Ur Normal Normal 0.0-1.0 [facility] Comment on above: Performed By: #### U A #### [facility] [address] [place] [address] Promotional Marketing Agent: Hayden Cartagena MD Urinalysison 09-12-2023 Bilirubin Ql (U) Negative NEGATIVE [facility] Clarity (U) Clear Clear [facility] Color (U) Yellow Yellow [facility] Glucose Test strip (U) [Mass/Vol] Negative NEGATIVE mg/dL [facility] Hemoglobin Auto test strip Ql (U) Negative NEGATIVE [facility] Interpretation and review of laboratory results Abnormal [facility] Ketones (U) [Mass/Vol] Negative NEGAT ROSA mg/dL [facility] Leukocyte esterase Test strip Ql (U) Negative NEGATIVE [facility] Nitrite Ql (U) Negative NEGATIVE [facility] pH (U) 6.0 [pH] 5.0 - 9.0 [facility] Protein (U) [Mass/Vol] Negative NEGAT ROSA mg/dL [facility] Specific gravity (U) [Rel density] Low 1.010 - 1.020 [facility] Urobilinogen Qn (U) Normal 0.0 - 1. 0 EU/dL [facility] Urinalysis, Routineon 2023 Bilirubin, SemiQt,Ur Negative Normal NEG [facility] Comment on above: Performed By: #### U A #### [facility] [address] [place] [address] Promotional Marketing Agent: Hayden Cartagena MD Blood, Urine Negative Normal NEG [facility] Comment on above: Performed By: #### U A #### [facility] [address] [place] [address] [place], [place] [phone] Promotional Marketing Agent: Hayden Cartagena MD Clarity (U) Clear Normal CLEAR [facility] Comment on above: Performed By: #### U A #### [facility] [address] [place] [address] [place], [place] [phone] Promotional Marketing Agent: Hayden Cartagena MD Color (U) Yellow Normal YEL [facility] Comment on above: Performed By: #### U A #### [facility] [address] [place] [address] [place], [place] [phone] Promotional Marketing Agent: Hayden Cartagena MD Glucose Ql (U) Negative Normal NEG [facility] Comment on above: Performed By: #### U A #### [facility] [address] [place] [address] [place], [place] [phone] Promotional Marketing Agent: Hayden Cartagena MD Ketones Ql (U) Negative Normal NEG [facility] Comment on above: Performed By: #### U A #### [facility] [address] [place] [address] [place], [place] [phone] Promotional Marketing Agent: Hayden Cartagena MD Leukocyte esterase Test strip Ql (U) Negative Normal NEG [facility] Comment on above: Performed By: #### U A #### [facility] [address] [place] [address] [place], [place] [phone] Promotional Marketing Agent: Hayden Cartagena MD Nitrite,Ur Negative Normal NEG [facility] Comment on above: Performed By: #### U A #### [facility] [address] [place] [address] [place], [place] [phone] Promotional Marketing Agent: Hayden Cartagena MD PH,Ur 6.0 Normal 5.0-9.0 [facility] Comment on above: Performed By: #### U A #### [facility] [address] [place] [address] [place], [place] [phone] Promotional Marketing Agent: Hayden Cartagena MD Protein Ql (U) Negative Normal NEG [facility] Comment on above: Performed By: #### U A #### [facility] [address] [place] [address] Promotional Marketing Agent: Hayden Cartagena MD Spec. Cropsey,Ur <1.005 Low 1.010-1.020 [facility] Comment on above: Performed By: #### U A #### [facility] [address] [place] [address] Promotional Marketing Agent: Hayden Cartagena MD Urobilinogen,Ur Normal Normal 0.0-1.0 [facility] Comment on above: Performed By: #### U A #### [facility] [address] [place], [place] [phone] Promotional Marketing Agent: Hayden Cartagena MD Glucose, Whole Bloodon 09-03 Glucose [Mass/Vol] 160 mg/dL High 74-100 [facility] Urinalysis, Routineon 2023 Bilirubin, SemiQt,Ur Negative Normal NEG [facility] Comment on above: Performed By: #### U MICAO, UA #### [address] [place], [place] [phone] Promotional Marketing Agent: Hayden Cartagena MD Blood, Urine Negative Normal NEG [facility] Comment on above: Performed By: #### U MICAO, UA #### [facility] [address] [place] [address] Promotional Marketing Agent: Hayden Cartagena MD Clarity (U) Clear Normal CLEAR [facility] Comment on above: Performed By: #### U MICAO, UA #### [facility] [address] [place] [address] Promotional Marketing Agent: Hayden Cartagena MD Color (U) Yellow Normal YEL [facility] Comment on above: Performed By: #### U MICAO, UA #### [facility] [address] [place], [place] [phone] Promotional Marketing Agent: Hayden Cartagena MD Glucose Ql (U) 1+ mg/dL Abnormal NEG [facility] Comment on above: Performed By: #### U MICAO, UA #### [facility] [address] [place], [place] [phone] Promotional Marketing Agent: Hayden Cartagena MD Ketones Ql (U) Negative Normal NEG [facility] Comment on above: Performed By: #### U MICAO, UA #### [address] [place], [place] 6442183 Promotional Marketing Agent: Hayden Cartagena MD Leukocyte esterase Test strip Ql (U) Negative Normal NEG [facility] Comment on above: Performed By: #### U MICAO, UA #### [address] [place], [facility]83 Promotional Marketing Agent: Hayden Cartagena MD Nitrite,Ur Negative Normal [facility] Comment on above: Performed By: #### U MICAO, UA #### [address] [place], [place] 9391683 Promotional Marketing Agent: Hayden Cartagena MD PH,Ur 6.0 Normal 5.0-9.0 [facility] Comment on above: Performed By: #### U MICAO, UA #### [facility] [address] [place] [address] Dr. [place], [facility]83 Promotional Marketing Agent: Hayden Cartagena MD Protein Ql (U) Negative Normal NEG [facility] Comment on above: Performed By: #### U MICAO, UA #### [facility] [address] [place] [address] [place], [place] [phone] Promotional Marketing Agent: Hayden Cartagena MD Spec. Cropsey,Ur <1.005 Low 1.010-1.020 [facility] Comment on above: Performed By: #### U MICAO, UA #### [facility] [address] [place], [place] [phone] Promotional Marketing Agent: Hayden Cartagena MD Urobilinogen,Ur Normal Normal 0.0-1.0 [facility] Comment on above: Performed By: #### U MICAO, UA #### [facility] [address] [place], [place] [phone] Promotional Marketing Agent: Hayden Cartagena MD Urinalysis,Microon Bacteria TRACE Abnormal NONE [facility] Comment on above: Performed By: #### U MICAO, UA #### [facility] [address] [place], [place] 6307983 Promotional Marketing Agent: Hayden Cartagena MD Epithelial cells LM Ql (Urine sed) 5 TO 10 Normal 0-25 [facility] Comment on above: Performed By: #### U MICAO, UA #### [facility] [address] [place], [place] [phone] Promotional Marketing Agent: Hayden Cartagena MD Urine RBC's None Normal 0-2 [facility] Comment on above: Performed By: #### U MICAO, UA #### [facility] [address] [place] [address] [place], [place] [phone] Promotional Marketing Agent: Hayden Cartagena MD Urine WBC's None Normal 0-5 [facility] Comment on above: Performed By: #### U MICAO, UA #### [facility] [address] [place], [place] [phone] Promotional Marketing Agent: Hayden Cartagena MD Urinalysis, Routineon 2023 Bilirubin, SemiQt,Ur Negative Normal NEG [facility] Comment on above: Performed By: #### U A #### [facility] [address] [place] [address] [place], [place] [phone] Promotional Marketing Agent: Hayden Cartagena MD Blood, Urine Negative Normal NEG [facility] Comment on above: Performed By: #### U A #### [facility] [address] [place] [address] [place] [address] Promotional Marketing Agent: Hayden Cartagena MD Clarity (U) Clear Normal CLEAR [facility] Comment on above: Performed By: #### U A #### [facility] [address] [place] [address] [place], [place] [phone] Promotional Marketing Agent: Hayden Cartagena MD Color (U) Yellow Normal YEL [facility] Comment on above: Performed By: #### U A #### [facility] [address] [place] [address] [place], [place] [phone] Promotional Marketing Agent: Hayden Cartagena MD Glucose Ql (U) Negative Normal NEG [facility] Comment on above: Performed By: #### U A #### [facility] [address] [place] [address] [place], [place] [phone] Promotional Marketing Agent: Hayden Cartagena MD Ketones Ql (U) Negative Normal NEG [facility] Comment on above: Performed By: #### U A #### [facility] [address] [place] [address] [place] [address] Promotional Marketing Agent: Hayden Cartagena MD Leukocyte esterase Test strip Ql (U) Negative Normal NEG [facility] Comment on above: Performed By: #### U A #### [facility] [address] [place] [address] [place], [place] [phone] Promotional Marketing Agent: Hayden Cartagena MD Nitrite,Ur Negative Normal NEG [facility] Comment on above: Performed By: #### U A #### [facility] [address] [place] [address] [place]. [place], [place] [phone] Promotional Marketing Agent: Hayden Cartagena MD PH,Ur 6.0 Normal 5.0-9.0 [facility] Comment on above: Performed By: #### U A #### [facility] [address] [place] [address] [place], [place] [phone] Promotional Marketing Agent: Hayden Cartagena MD Protein Ql (U) Negative Normal NEG [facility] Comment on above: Performed By: #### U A #### [facility] [address] [place] [address] Promotional Marketing Agent: Hayden Cartagena MD Spec. Cropsey,Ur <1.005 Low 1.010-1.020 [facility] Comment on above: Performed By: #### U A #### [facility] [address] [place] [address] Promotional Marketing Agent: Hayden Cartagena MD Urobilinogen,Ur Normal Normal 0.0-1.0 [facility] Comment on above: Performed By: #### U A #### [facility] [address] [place] [address] Promotional Marketing Agent: Hayden Cartagena MD Microscopic Urinalysison Bacteria LM Ql (Urine sed) 1+ Abnormal None [facility] Epithelial cells LM.HPF (Urine sed) [#/Area] 0 TO 2 [facility] Interpretation and review of laboratory results Abnormal [facility] RBC LM.HPF (Urine sed) [#/Area] None [facility] WBC LM.HPF (Urine sed) [#/Area] None [facility] Urinalysison 08-24-2023 Bilirubin Ql (U) Negative NEGATIVE [facility] Clarity (U) Clear Clear [facility] Color (U) Yellow Yellow [facility] Glucose Test strip (U) [Mass/Vol] 1+ Abnormal NEGATIVE mg/dL [facility] Hemoglobin Auto test strip Ql (U) Negative NEGATIVE [facility] Interpretation and review of laboratory results Abnormal [facility] Ketones (U) [Mass/Vol] Negative NEGAT ROS[place] mg/dL [facility] Leukocyte esterase Test strip Ql (U) Negative NEGATIVE [facility] Nitrite Ql (U) Negative NEGATIVE [facility] pH (U) 6.0 [pH] 5.0 - 9.0 [facility] Protein (U) [Mass/Vol] Negative NEGAT [place] mg/dL [facility] Specific gravity (U) [Rel density] Low 1.010 - 1.020 [facility] Urobilinogen Qn (U) Normal 0.0 - 1. 0 EU/dL [facility] Urinalysis, Routineon 2023 Bilirubin, SemiQt,Ur Negative Normal NEG [facility] Comment on above: Performed By: #### U RC #### [address] [address] Promotional Marketing Agent: Claude Gonzalez MD [address] [place] [address] Promotional Marketing Agent: Hayden Cartagena MD Blood, Urine Negative Normal [facility] Comment on above: Performed By: #### U RC #### [address] [address] Promotional Marketing Agent: Claude Gonzalez MD [address] [place] [phone] Promotional Marketing Agent: Hayden Cartagena MD Clarity (U) Clear Normal CLEAR [facility] Comment on above: Performed By: #### U RC #### [address] [address] Promotional Marketing Agent: Claude Gonzalez MD [address] [place] [phone] Promotional Marketing Agent: Hayden Cartagena MD Color (U) Yellow Normal YEL [facility] Comment on above: Performed By: #### U RC #### [address] [address] Promotional Marketing Agent: Claude Gonzalez MD [facility] [address] [place] [address] [place] [address] Promotional Marketing Agent: Hayden Cartagena MD Glucose Ql (U) 1+ mg/dL Abnormal NEG [facility] Comment on above: Performed By: #### U RC #### [facility] [address] [place] [address] Promotional Marketing Agent: Claude Gonzalez MD [facility] [address] [place] [address] Dr. [place], [place] [phone] Promotional Marketing Agent: Hayden Cartagena MD Ketones Ql (U) Negative Normal NEG [facility] Comment on above: Performed By: #### U RC #### [address] [address] Promotional Marketing Agent: Claude Gonzalez MD [facility] [address] [place] [address] Dr. [place], [place] 1695483 Promotional Marketing Agent: Hayden Cartagena MD Leukocyte esterase Test strip Ql (U) Negative Normal NEG [facility] Comment on above: Performed By: #### U RC #### [address] [address] Promotional Marketing Agent: Claude Gonzalez MD [facility] [address] [place] [address] [place] [address] Promotional Marketing Agent: Hayden Cartagena MD Nitrite,Ur Negative Normal [facility] Comment on above: Performed By: #### U RC #### [address] [address] Promotional Marketing Agent: Claude Gonzalez MD [facility] [address] [place] [address] Dr. [place], [place] 7062483 Promotional Marketing Agent: Hayden Cartagena MD PH,Ur 6.0 Normal 5.0-9.0 [facility] Comment on above: Performed By: #### U RC #### [address] [address] Promotional Marketing Agent: Claude Gonzalez MD [facility] [address] [place] [address] [place] [address] Promotional Marketing Agent: Hayden Cratagena MD Protein Ql (U) Negative Normal NEG [facility] Comment on above: Performed By: #### U RC #### [place] [address] [place] [address] Promotional Marketing Agent: Claude Gonzalez MD [facility] [address] [place] [address] [place]. [place] [phone] Promotional Marketing Agent: Hayden Cartagena MD Spec. Cropsey,Ur <1.005 Low 1.010-1.020 [facility] Comment on above: Performed By: #### U RC #### [address] [address] Promotional Marketing Agent: Claude Gonzalez MD [facility] [address] [place] [address] [place]. [place] [phone] Promotional Marketing Agent: Hayden Cartagena MD Urobilinogen,Ur Normal Normal 0.0-1.0 [facility] Comment on above: Performed By: #### U RC #### [address] [address] Promotional Marketing Agent: Claude Gonzalez MD [facility] [address] [place] [address] [place]. [place] [phone] Promotional Marketing Agent: Hayden Cartagena MD Urinalysis,Microon 4 Bacteria 1+ Abnormal NONE [facility] Comment on above: Performed By: #### U RC #### [address] [address] Promotional Marketing Agent: Claude Gonzalez MD [facility] [address] [place] [address] [place] [address] Promotional Marketing Agent: Hayden Cartagena MD Epithelial cells LM Ql (Urine sed) 0 TO 2 Normal 0-25 [facility] Comment on above: Performed By: #### U RC #### [address] [address] Promotional Marketing Agent: Claude Gonzalez MD [facility] [address] [place] [address] Dr. [place] [phone] Promotional Marketing Agent: Hayden Cartagena MD Urine RBC's None Normal 0-2 [facility] Comment on above: Performed By: #### U RC #### [facility] [address] [place] [address] Promotional Marketing Agent: Claude Gonzalez MD [facility] [address] [place] [address] [place] [address] Promotional Marketing Agent: Hayden Cartagena MD Urine WBC's None Normal 0-5 [facility] Comment on above: Performed By: #### U RC #### [facility] [address] [place] [address] Promotional Marketing Agent: Claude Gonzalez MD [address] [place] [address] Promotional Marketing Agent: Hayden Cartagena MD Cult,Urineon 07-01-2023 Cult,Urine Specimen Description .CLEAN CATCH URINE Culture NO SIGNIFICANT GROWTH Report Status FINAL 07/01/2023 Normal [facility] Comment on above: Performed By: #### U RC #### [facility] [address] [place] [address] Promotional Marketing Agent: Claude Gonzalez MD [address] [place] [address] Promotional Marketing Agent: Hayden Cartagena MD Urinalysis w/ Microon 2023 Bilirubin, SemiQt,Ur Negative Normal NEG [facility] Comment on above: Performed By: #### U AMIC #### [facility] [address] [place] [address] [place] [address] Promotional Marketing Agent: Hayden Cartagena MD Blood, Urine Negative Normal NEG [facility] Comment on above: Performed By: #### U AMIC #### [address] [place] [address] Promotional Marketing Agent: Hayden Cartagena MD Clarity (U) Clear Normal CLEAR [facility] Comment on above: Performed By: #### U AMIC #### [facility] [address] [place], [place] [phone] Promotional Marketing Agent: Hayden Cartagena MD Color (U) Yellow Normal YEL [facility] Comment on above: Performed By: #### U AMIC #### [facility] [address] [place], [place] [phone] Promotional Marketing Agent: Hayden Cartagena MD Epithelial cells LM Ql (Urine sed) 2 TO 5 Normal 0-25 [facility] Comment on above: Performed By: #### U AMIC #### [facility] [address] [place], [place] [phone] Promotional Marketing Agent: Hayden Cartagena MD Glucose Ql (U) Negative Normal NEG [facility] Comment on above: Performed By: #### U AMIC #### [facility] [address] [place] [address] [place] [place], [place] [phone] Promotional Marketing Agent: Hayden Cartagena MD Ketones Ql (U) Negative Normal NEG [facility] Comment on above: Performed By: #### U AMIC #### [facility] [address] [place] [address] [place] [place], [place] [phone] Promotional Marketing Agent: Hayden Cartagena MD Leukocyte esterase Test strip Ql (U) Negative Normal NEG [facility] Comment on above: Performed By: #### U AMIC #### [facility] [address] [place], [place] [phone] Promotional Marketing Agent: Hayden Cartagena MD Nitrite,Ur Negative Normal NEG [facility] Comment on above: Performed By: #### U AMIC #### [facility] [address] [place], [place] [phone] Promotional Marketing Agent: Hayden Cartagena MD PH,Ur 6.0 Normal 5.0-9.0 [facility] Comment on above: Performed By: #### U AMIC #### [facility] [address] [place], [place] [phone] Promotional Marketing Agent: Hayden Cartagena MD Protein Ql (U) Negative Normal NEG [facility] Comment on above: Performed By: #### U AMIC #### [facility] [address] [place] [address] Promotional Marketing Agent: Hayden Cartagena MD Spec. Cropsey,Ur 1.010 Normal 1.010-1.020 [facility] Comment on above: Performed By: #### U AMIC #### [facility] [address] [place] [phone] Promotional Marketing Agent: Hayden Cartagena MD Urine RBC's None Normal 0-2 [facility] Comment on above: Performed By: #### U AMIC #### [address] [place] [phone] Promotional Marketing Agent: Hayden Cartagena MD Urine WBC's None Normal 0-5 [facility] Comment on above: Performed By: #### U AMIC #### [facility] [address] [place] [address] [place]. [place], [place] [phone] Promotional Marketing Agent: Hayden Cartagena MD Urobilinogen,Ur Normal Normal 0.0-1.0 [facility] Comment on above: Performed By: #### U AMIC #### [address] [place], [place] [phone] Promotional Marketing Agent: Hayden Cartagena MD Cult,Urineon 05-03-2023 Cult,Urine Specimen [...] Tobramycin <=1 SUSCEPTIBLE Trimethoprim/Sulfa <=20 SUSCEPTIBLE Susceptible [facility] Comment on above: Performed By: #### U RC #### [address] [place] [address] Promotional Marketing Agent: Claude Gonzalez MD [facility] [address] [place] [address] [place] [place], [place] [phone] Promotional Marketing Agent: Hayden Cartagena MD HIV Ag/Abon 05-02-2023 HIV Ag/Ab Non-Reactive Normal [facility] Comment on above: Result Comment: No l aboratory evidence of HIV infection. If acute HIV infection is suspected, consider testing for HIV-1 RNA. Performed By: #### U RC #### [address] [address] Promotional Marketing Agent: Claude Gonzalez MD [address] [place] [address] Promotional Marketing Agent: Hayden Cartagena MD T.pallidum Ab Screenon 05-01 T.pallidum Ab Screen Non-Reactive Normal NR [facility] Comment on above: Result Comment: T. pallidum antibodies are not detected. There is no serological evidence of infection with T. pallidum (early primary syphilis cannot be excluded). Retest in 2-4 weeks if syphilis is clinically suspect. Performed By: #### U RC #### [address] [address] Promotional Marketing Agent: Claude Gonzalez MD [facility] [address] [place] [address] [place] [address] Promotional Marketing Agent: Hayden Cartagena MD CBC with Auto Differentialon 05-01-2023 Basophils (Bld) [#/Vol] 0.03 10*3/uL [facility] Basophils/100 WBC (Bld) 0 % 0 - 2 % [facility] Eosinophils (Bld) [#/Vol] [facility] Eosinophils/100 WBC (Bld) 0 % Low 1 - 4 % [facility] Erythrocyte distribution width (RBC) [Ratio] 12.2 % 11.8 - 14.4 % [facility] Hematocrit (Bld) [Volume fraction] 36.2 % Low 36.3 - 47.1 % [facility] Hemoglobin (Bld) [Mass/Vol] 12.1 g/dL 11.9 - 15.1 g/dL [facility] Immature granulocytes (Bld) [#/Vol] [facility] Immature granulocytes/100 WBC (Bld) 0 % 0 [facility] Interpretation and review of laboratory results Abnormal [facility] Lymphocytes/100 WBC (Bld) 19 % Low 24 - 43 % [facility] Lymphocytes/100 WBC (Bld) 1.62 % [facility] MCH (RBC) [Entitic mass] 32.1 pg 25.2 - 33.5 pg [facility] MCHC (RBC) [Mass/Vol] 33.4 g/dL 28.4 - 34.8 g/dL [facility] MCV (RBC) [Entitic vol] 96.0 fL 82.6 - 102.9 fL [facility] Monocytes/100 WBC (Bld) 6 % 3 - 12 % [facility] Monocytes/100 WBC (Bld) 0.51 % [facility] Neutrophils/100 WBC (Bld) 75 % High 36 - 65 % [facility] Nucleated RBC/100 WBC (Bld) [Ratio] 0.0 % 0.0 per 100 WBC [facility] Platelet mean volume (Bld) [Entitic vol] 10.3 fL 8.1 - 13.5 fL [facility] Platelets (Bld) [#/Vol] 201 10*3/uL [facility] RBC (Bld) [#/Vol] 3.77 10*6/uL Low 3.95 - 5.1 1 m/uL [facility] Segmented neutrophils/100 WBC (Bld) 6.24 % [facility] WBC other (Bld) [#/Vol] 8.4 [facility] CBC with Diffon 05-01-2023 Abs. Basophil 0.03 k/uL Normal 0.00-0.20 [facility] Comment on above: Performed By: #### C DP #### [address] [place] [address] Promotional Marketing Agent: Hayden Cartagena MD #### LISA, HIVCMB, AHCV, TREP, GLYHGB, HBS #### [address] [address] Promotional Marketing Agent: Claude Gonzalez MD Abs. Eosinophil <0.03 Normal 0.00-0.44 [facility] Comment on above: Performed By: #### C DP #### [address] [place] [address] Promotional Marketing Agent: Hayden Cartagena MD #### LISA, HIVCMB, AHCV, TREP, GLYHGB, HBS #### [place] [address] Promotional Marketing Agent: Claude Gonzalez MD Abs.Imm.Granulocyte <0.03 Normal 0.00-0.30 [facility] Comment on above: Performed By: #### C DP #### [address] [place] [address] Promotional Marketing Agent: Hayden Cartagena MD #### LISA, HIVCMB, AHCV, TREP, GLYHGB, HBS #### [place] [address] Promotional Marketing Agent: Claude Gonzalez MD Abs.Neutrophil (Seg) 6.24 k/uL Normal 1.50-8.10 [facility] Comment on above: Performed By: #### C DP #### [address] [place] [phone] Promotional Marketing Agent: Hayden Cartagena MD #### LISA, HIVCMB, AHCV, TREP, GLYHGB, HBS #### [place] [address] Promotional Marketing Agent: Claude Gonzalez MD Basophils/100 WBC (Bld) 0 % Normal 0-2 [facility] Comment on above: Performed By: #### C DP #### [facility] [address] [place] [address] [place] [phone] Promotional Marketing Agent: Hayden Cartagena MD #### LISA, HIVCMB, AHCV, TREP, GLYHGB, HBS #### [address] [phone] Promotional Marketing Agent: Claude Gonzalez MD Eosinophils/100 WBC (Bld) 0 % Low 1-4 [facility] Comment on above: Performed By: #### C DP #### [address] [place] [phone] Promotional Marketing Agent: Hayden Cartagena MD #### LISA, HIVCMB, AHCV, TREP, GLYHGB, HBS #### [address] [phone] Promotional Marketing Agent: Claude Gonzalez MD Erythrocyte distribution width (RBC) [Ratio] 12.2 % Normal 11.8-14.4 [facility] Comment on above: Performed By: #### C DP #### [address] [place] [phone] Promotional Marketing Agent: Hayden Cartagena MD #### LISA, HIVCMB, AHCV, TREP, GLYHGB, HBS #### [address] [phone] Promotional Marketing Agent: Claude Gonzalez MD Hematocrit (Bld) [Volume fraction] 36.2 % Low 36.3-47.1 [facility] Comment on above: Performed By: #### C DP #### [facility] [address] [place] [address] [place] [phone] Promotional Marketing Agent: Hayden Cartagena MD #### LISA, HIVCMB, AHCV, TREP, GLYHGB, HBS #### [address] [place] [address] Promotional Marketing Agent: Claude Gonzalez MD Hemoglobin (Bld) [Mass/Vol] 12.1 g/dL Normal 11.9-15.1 [facility] Comment on above: Performed By: #### C DP #### [address] [place] [address] Promotional Marketing Agent: Hayden Cartagena MD #### LISA, HIVCMB, AHCV, TREP, GLYHGB, HBS #### [place] [address] Promotional Marketing Agent: Claude Gonzalez MD Immature granulocytes/100 WBC (Bld) 0 % Normal 0 [facility] Comment on above: Performed By: #### C DP #### [address] [place] [phone] ( Promotional Marketing Agent: Hayden Cartagena MD #### LISA, HIVCMB, AHCV, TREP, GLYHGB, HBS #### [place] [address] Promotional Marketing Agent: Claude Gonzalez MD Lymphocytes (Bld) [#/Vol] 1.62 10*3/uL Normal 1.10-3.70 [facility] Comment on above: Performed By: #### C DP #### [address] [place] [phone] Promotional Marketing Agent: Hayden Cartagena MD #### LISA, HIVCMB, AHCV, TREP, GLYHGB, HBS #### [place] [phone] Promotional Marketing Agent: Claude Gonzalez MD Lymphocytes/100 WBC (Bld) 19 % Low 24-43 [facility] Comment on above: Performed By: #### C DP #### [address] [place] [phone] Promotional Marketing Agent: Hayden Cartagena MD #### LISA, HIVCMB, AHCV, TREP, GLYHGB, HBS #### [address] [phone] Promotional Marketing Agent: Claude Gonzalez MD MCH (RBC) [Entitic mass] 32.1 pg Normal 25.2-33.5 [facility] Comment on above: Performed By: #### C DP #### [address] [place] [phone] Promotional Marketing Agent: Hayden Cartagena MD #### LISA, HIVCMB, AHCV, TREP, GLYHGB, HBS #### [place] [phone] Promotional Marketing Agent: Claude Gonzalez MD MCHC (RBC) [Mass/Vol] 33.4 g/dL Normal 28.4-34.8 [facility] Comment on above: Performed By: #### C DP #### [address] [place] [phone] Promotional Marketing Agent: Hayden Cartagena MD #### LISA, HIVCMB, AHCV, TREP, GLYHGB, HBS #### [place] [phone] Promotional Marketing Agent: Claude Gonzalez MD MCV (RBC) [Entitic vol] 96.0 fL Normal 82.6-102.9 [facility] Comment on above: Performed By: #### C DP #### [address] [place] [phone] Promotional Marketing Agent: Hayden Cartagena MD #### LISA, HIVCMB, AHCV, TREP, GLYHGB, HBS #### [address] [phone] Promotional Marketing Agent: Claude Gonzalez MD Monocytes (Bld) [#/Vol] 0.51 10*3/uL Normal 0.10-1.20 [facility] Comment on above: Performed By: #### C DP #### [facility] [address] [place] [address] [place] [phone] Promotional Marketing Agent: Hayden Cartagena MD #### LISA, HIVCMB, AHCV, TREP, GLYHGB, HBS #### [address] [phone] Promotional Marketing Agent: Claued Gonzalez MD Monocytes/100 WBC (Bld) 6 % Normal 3-12 [facility] [place] Comment on above: Performed By: #### C DP #### [address] [place] [phone] Promotional Marketing Agent: Hayden Cartagena MD #### LISA, HIVCMB, AHCV, TREP, GLYHGB, HBS #### [place] [phone] Promotional Marketing Agent: Claude Gonzalez MD Neutrophil (Seg) 75 % High 36-65 [facility] Comment on above: Performed By: #### C DP #### [address] [place] [phone] Promotional Marketing Agent: Hayden Cartagena MD #### LISA, HIVCMB, AHCV, TREP, GLYHGB, HBS #### [place] [phone] Promotional Marketing Agent: Claude Gonzalez MD NRBC Automated 0.0 per 100 WBC Normal 0.0 [facility] Comment on above: Performed By: #### C DP #### [facility] [address] [place] [address] [place] [phone] Promotional Marketing Agent: aHyden Cartagena MD #### LISA, HIVCMB, AHCV, TREP, GLYHGB, HBS #### [address] [address] Promotional Marketing Agent: Claude Gonzalez MD Platelet mean volume (Bld) [Entitic vol] 10.3 fL Normal 8.1-13.5 [facility] Comment on above: Performed By: #### C DP #### [address] [place] [phone] Promotional Marketing Agent: Hayden Cartagena MD #### LSIA, HIVCMB, AHCV, TREP, GLYHGB, HBS #### [address] [place] [address] Promotional Marketing Agent: Claude Gonzalez MD Platelets (Bld) [#/Vol] 201 10*3/uL Normal 138-453 [facility] Comment on above: Performed By: #### C DP #### [address] [place] [phone] Promotional Marketing Agent: Hayden Cartagena MD #### LISA, HIVCMB, AHCV, TREP, GLYHGB, HBS #### [address] [address] Promotional Marketing Agent: Claude Gonzalez MD RBC (Bld) [#/Vol] 3.77 10*6/uL Low 3.95-5.11 [facility] Comment on above: Performed By: #### C DP #### [address] [place] [phone] Promotional Marketing Agent: Hayden Cartagena MD #### LISA, HIVCMB, AHCV, TREP, GLYHGB, HBS #### [address] [address] Promotional Marketing Agent: Claude Gonzalez MD WBC (Bld) [#/Vol] 8.4 10*3/uL Normal 3.5-11.3 [facility] Comment on above: Performed By: #### C DP #### [address] [place] [phone] Promotional Marketing Agent: Hayden Cartagena MD #### LISA, HIVCMB, AHCV, TREP, GLYHGB, HBS #### [address] [place] [address] Promotional Marketing Agent: Claude Gonzalez MD Hemoglobin A1Con 05-01-2023 Average glucose Estimated from glycated hemoglobin (Bld) [Mass/Vol] 85 mg/dL [facility] Comment on above: The ADA and AACC rec ommend providing the estimated average glucose result to permit better patient understanding of their HBA1c result. HbA1c (Bld) [Mass fraction] 4.6 % 4.0 - 6.0 % [facility] Glucose [Mass/Vol] 85 mg/dL Normal [facility] Comment on above: Result Comment: The ADA and AACC recommend providing the estimated average glucose result to permit better patient understanding of their HBA1c result. Performed By: #### U RC #### [address] [address] Promotional Marketing Agent: Calude Gonzalez MD [address] [place], [place] [phone] Promotional Marketing Agent: Hayden Cartagena MD HbA1c (Bld) [Mass fraction] 4.6 % Normal 4.0-6.0 [facility] Comment on above: Performed By: #### U RC #### [address] [address] Promotional Marketing Agent: Claude Gonzalez MD [address] [place], [place] [phone] Promotional Marketing Agent: Hayden Cartagena MD Hep B Surf Agon 2 Hep B Surf Ag Non-Reactive Normal NR [facility] Comment on above: Performed By: #### U RC #### [address] [address] Promotional Marketing Agent: Claude Gonzalez MD [address] [place] [address] Promotional Marketing Agent: Hayden Cartagena MD Hep C Abon 05-01-2023 Hep C Ab Non-Reactive Normal NR [facility] Comment on above: Result Comment: The [...] PCR. Performed By: #### C DP #### [facility] [address] [place] [address] [place] [address] Promotional Marketing Agent: Hayden Cartagena MD #### LISA, HIVCMB, AHCV, TREP, GLYHGB, HBS #### [facility] [address] [place] [address] Promotional Marketing Agent: Claude Gonzalez MD Hepatitis B Surface Antigeno n 05-01-2023 HBV surface Ag IA Ql Non-Reactive NONREACTIVE [facility] Hepatitis C Antibodyon 04-30 HCV Ab IA Ql Non-Reactive NONREACTIVE [facility] Comment on above: The hepatitis C [...] RNA by PCR. No Panel Informationon 04-30 [facility] Rubella Ab, IgGon 05-01-2023 Rubella Ab, IgG >500.0 Normal [facility] Comment on above: Result Comment: REFERENCE RANGE: <5.0 NON-REACTIVE (non-immune) 5.0 TO 9.9 EQUIVOCAL >=10.0 REACTIVE (immune) Performed By: #### U RC #### [facility] [address] [place], [place] [phone] Promotional Marketing Agent: Claude Gonzalez MD [facility] [address] [place] [address] [place] [address] Promotional Marketing Agent: Hayden Cartagena MD Rubella antibody, IgGon Rubella virus IgG IA Ql IU/mL [facility] Comment on above: REFERENCE RANGE: <5.0 NON-REACTIVE (non-immune) 5.0 TO 9.9 EQUIVOCAL >=10.0 REACTIVE (immune) [facility] TYPE AND SCREENon 05-01-2023 ABO and Rh group Nom (Bld) Blood group O Rh(D) negative [facility] Blood Bank Sample Expiration 05/04/2023,2359 [facility] Blood group antibodies identified Nom Negative [facility] Type + Screenon 05-01-2023 Type + Screen Sample Expiration 05/04/2023,2359 ABO/Rh(D) O NEGATIVE Antibody Screen NEGATIVE Normal [facility] Comment on above: Performed By: #### T YS #### [facility] [address] [place] [address] [place] [address] Promotional Marketing Agent: Hayden Cartagena MD CBC with Auto Differentialon 08-03-2022 Basophils (Bld) [#/Vol] 0.04 10*3/uL [facility] Basophils/100 WBC (Bld) 0 % 0 - 2 % [facility] Eosinophils (Bld) [#/Vol] [facility] Eosinophils/100 WBC (Bld) 0 % Low 1 - 4 % [facility] Erythrocyte distribution width (RBC) [Ratio] 12.2 % 11.8 - 14.4 % [facility] Hematocrit (Bld) [Volume fraction] 39.4 % 36.3 - 47.1 % [facility] Hemoglobin (Bld) [Mass/Vol] 13.2 g/dL 11.9 - 15.1 g/dL [facility] Immature granulocytes (Bld) [#/Vol] [facility] Immature granulocytes/100 WBC (Bld) 0 % 0 [facility] Interpretation and review of laboratory results Abnormal [facility] Lymphocytes/100 WBC (Bld) 17 % Low 24 - 43 % [facility] Lymphocytes/100 WBC (Bld) 1.86 % [facility] MCH (RBC) [Entitic mass] 32.1 pg 25.2 - 33.5 pg [facility] MCHC (RBC) [Mass/Vol] 33.5 g/dL 28.4 - 34.8 g/dL [facility] MCV (RBC) [Entitic vol] 95.9 fL 82.6 - 102.9 fL [facility] Monocytes/100 WBC (Bld) 4 % 3 - 12 % [facility] Monocytes/100 WBC (Bld) 0.42 % [facility] Neutrophils/100 WBC (Bld) 79 % High 36 - 65 % [facility] NRBC Automated 0.0 0.0 per 100 WBC [facility] Platelet mean volume (Bld) [Entitic vol] 10.5 fL 8.1 - 13.5 fL [facility] Platelets (Bld) [#/Vol] 213 10*3/uL [facility] RBC (Bld) [#/Vol] 4.11 10*6/uL 3.95 - 5.1 1 m/uL [facility] Segmented neutrophils/100 WBC (Bld) 8.49 % High [facility] WBC other (Bld) [#/Vol] 10.8 B [facility] CMPon 08-03-2022 Albumin [Mass/Vol] 4.6 g/dL 3.5 - 5.2 g/dL [facility] Albumin/Globulin [Mass ratio] 1.5 {ratio} 1.0 - 2.5 [facility] ALP [Catalytic activity/Vol] 79 U/L 35 - 104 U/L [facility] ALT [Catalytic activity/Vol] 9 U/L 5 - 33 U/L [facility] Anion gap [Moles/Vol] 11 mmol/L 9 - 17 mmol/L [facility] AST [Catalytic activity/Vol] 13 U/L NINF - 32 U/L [facility] Bilirubin [Mass/Vol] 1.1 mg/dL 0.3 - 1 .2 mg/dL [facility] Calcium [Mass/Vol] 10.0 mg/dL 8.6 - 10. 4 mg/dL [facility] Chloride [Moles/Vol] 104 mmol/L 98 - 10 7 mmol/L [facility] CO2 [Moles/Vol] 26 mmol/L 20 - 31 mmol/L [facility] Creatinine [Mass/Vol] 0.68 mg/dL 0.50 - 0.90 mg/dL [facility] GFR/1.73 sq M.predicted MDRD (S/P/Bld) [Vol rate/Area] - PINF [facility] Comment on above: These results [...] [Mass/Vol] 90 mg/dL 70 - 99 mg/dL [facility] Interpretation and review of laboratory results Abnormal [facility] Potassium [Moles/Vol] 3.4 mmol/L Low 3.7 - 5.3 mmol/L [facility] Protein [Mass/Vol] 7.7 g/dL 6.4 - 8.3 g/dL [facility] Sodium [Moles/Vol] 141 mmol/L 135 - 144 mmol/L [facility] Urea nitrogen [Mass/Vol] 6 mg/dL 6 - 20 mg/dL [facility] Urea nitrogen/Creatinine [Mass ratio] 9 mg/mg 9 - [address] [facility] [address] ABDOMEN PELVIS WO CONTRAS T [...] superficial soft tissues show no acute process. [facility] Cody Posey MD - 08/03/2022 EXAMINATION: [...] urinary tract calculi. 3. No bowel obstruction. [employer] Work Phone: Radiology Study observation (narrative) [employer] Work Phone: CT ABDOMEN PELVIS WO CONTRAS T Additional Contrast? NoneOrdered By: Cody Gregg on 08-03-2022 [employer] Work Phone: Microscopic Urinalysison Bacteria LM Ql (Urine sed) 4+ Abnormal None [employer] Epithelial cells LM.HPF (Urine sed) [#/Area] 10 TO 20 [employer] Interpretation and review of laboratory results Abnormal [employer] RBC LM.HPF (Urine sed) [#/Area] 10 TO 20 [employer] WBC LM.HPF (Urine sed) [#/Area] 20 TO 50 [employer] [facility] Urinalysis with Reflex to Cu ltureon 08-03-2022 Bilirubin Ql (U) Negative NEGATIVE [employer] Clarity (U) Cloudy Abnormal Clear [employer] Color (U) Yellow Yellow [employer] [facility] Glucose Test strip (U) [Mass/Vol] Negative NEGATIVE [employer] [facility] Hemoglobin Auto test strip Ql (U) 3+ Abnormal NEGATIVE [employer] Interpretation and review of laboratory results Abnormal [employer] Ketones (U) [Mass/Vol] Negative NEGATIVE [employer] Leukocyte esterase Test strip Ql (U) SMALL Abnormal NEGATIVE [employer] Nitrite Ql (U) Positive Abnormal NEGATIVE [employer] pH (U) 6.0 [pH] 5.0 - 9.0 [employer] Protein (U) [Mass/Vol] 2+ Abnormal NEGATIVE [employer] Specific gravity (U) [Rel density] 1.025 High 1.010 - 1.020 [facility] Urobilinogen Qn (U) Normal Normal [facility] KAMARA [facility] hCG, quantitative, on 08-03-2022 hCG Quant NINF [facility] Comment on above: Non-preg premeno <=5 Postmeno <=8 Male <=3 If HCG results do not concur with clinical observations, additional testing to confirm results is recommended. [facility] DIGITAL DIAGNOSTIC BILATERALon 06-03-2022 Radiology Study observation (narrative) [facility] MARROQUIN [facility] Work Phone: No Panel Informationon 06-03 1. Negative bilateral mammogram. 2. No evidence for a discrete abscess or cellulitis in the periareolar right breast, for which clinical follow-up is recommended. BI-RADS 2 BIRADS: BIRADS - CATEGORY 2 Benign Findings. OVERALL ASSESSMENT - BENIGN A letter of notification will be sent to the patient regarding the results. [employer] recommends annual mammograms for women 40 years and older. [facility] RIS CONSOLIDATED EXAMINATION: DIAGNOSTIC DIGITAL BILATERAL BREASTS [...] InformationOrdered By: Matt Sharma on 06-03-2022 [facility] [employer] Work Phone: US BREAST LIMITED RIGHTon Radiology Study observation (narrative) SARWAT HOLDERO [facility] [employer] Work Phone: CBC with Auto Differentialon 04-24-2022 Absolute Eos # [facility] S [facility] Absolute Immature Granulocyte 0.05 [facility] Absolute Lymph # 0.56 [facility] Absolute Towner # 0.78 [facility] RS [facility] Basophils (Bld) [#/Vol] 0.04 10*3/uL [facility] Basophils/100 WBC (Bld) 0 % 0 - 2 % [facility] Eosinophils/100 WBC (Bld) 0 % Low 1 - 4 % [facility] Hematocrit (Bld) [Volume fraction] 43.7 % 36.3 - 47.1 % [facility] Hemoglobin (Bld) [Mass/Vol] 15.6 g/dL High 11.9 - 15.1 g/dL [facility] Immature granulocytes/100 WBC (Bld) 0 % 0 [facility] Interpretation and review of laboratory results Abnormal [facility] Lymphocytes/100 WBC (Bld) 4 % Low 24 - 43 % [facility] MCH (RBC) [Entitic mass] 33.1 pg 25.2 - 33.5 pg [facility] MCHC (RBC) [Mass/Vol] 35.7 g/dL High 28.4 - 34.8 g/dL [facility] MCV (RBC) [Entitic vol] 92.8 fL 82.6 - 102.9 fL [facility] Monocytes/100 WBC (Bld) 5 % 3 - 12 % [facility] NRBC Automated 0.0 0.0 per 100 WBC [facility] Platelet distribution width (Bld) [Ratio] 12.3 % 11.8 - 14.4 % [facility] Platelet mean volume (Bld) [Entitic vol] 10.5 fL 8.1 - 13.5 fL [facility] Platelets (Bld) [#/Vol] 174 10*3/uL [facility] RBC (Bld) [#/Vol] 4.71 10*6/uL 3.95 - 5.1 1 m/uL [facility] Segmented neutrophils/100 WBC (Bld) 91 % High 36 - 65 % [facility] Segs Absolute 13.82 High [facility] WBC (Bld) [#/Vol] 15.3 10*3/uL High [facility] CMPon 04-24-2022 Albumin [Mass/Vol] 4.8 g/dL 3.5 - 5.2 g/dL [facility] Albumin/Globulin [Mass ratio] 1.6 {ratio} 1.0 - 2.5 [facility] ALP [Catalytic activity/Vol] 87 U/L 35 - 104 U/L [facility] ALT [Catalytic activity/Vol] 19 U/L 5 - 33 U/L [facility] Anion gap [Moles/Vol] 17 mmol/L 9 - 17 mmol/L [facility] AST [Catalytic activity/Vol] 23 U/L NINF - 32 U/L [facility] Bilirubin [Mass/Vol] 1.0 mg/dL 0.3 - 1 .2 mg/dL [facility] Calcium [Mass/Vol] 10.4 mg/dL 8.6 - 10. 4 mg/dL [facility] Chloride [Moles/Vol] 105 mmol/L 98 - 10 7 mmol/L [facility] CO2 [Moles/Vol] 19 mmol/L Low 20 - 31 mmol/L [facility] Creatinine [Mass/Vol] 0.84 mg/dL 0.50 - 0.90 mg/dL [facility] GFR/1.73 sq M.predicted MDRD (S/P/Bld) [Vol rate/Area] - PINF [facility] Comment on above: These results [...] 151 mg/dL High 70 - 99 mg/dL [facility] [employer] Interpretation and review of laboratory results Abnormal [facility] [employer] Potassium [Moles/Vol] 3.9 mmol/L 3.7 - 5.3 mmol/L [facility] [employer] Protein [Mass/Vol] 7.8 g/dL 6.4 - 8.3 g/dL [facility] [employer] Sodium [Moles/Vol] 141 mmol/L 135 - 144 mmol/L [facility] Urea nitrogen [Mass/Vol] 9 mg/dL 6 - 20 mg/dL [facility] Urea nitrogen/Creatinine (Bld) [Mass ratio] 11 9 - 20 [facility] ABDOMEN PELVIS W IV CONTR AST [...] pathologic adenopathy. Bones/Soft Tissues: No acute abnormality [facility] Rogelio Huang MD - 04/24/2022 EXAMINATION: CT [...] Otherwise, no acute intra-abdominal or pelvic abnormality [employer] Work Phone: Radiology Study observation (narrative) [employer] Work Phone: CT ABDOMEN PELVIS W IV CONTR AST Additional Contrast? NoneOrdered By: Rogelio Lima on 04-24-2022 [employer] Work Phone: Lactic Acidon 04-24-2022 Lactate (P samantha) [Moles/Vol] 2.1 mmol/L 0.5 - 2.2 mmol/L [employer] Lipaseon 04-24-2022 Lipase [Catalytic activity/Vol] 24 U/L 13 - 60 U/L [facility] Microscopic Urinalysison Bacteria, UA 1+ Abnormal None [facility] Epithelial Cells UA 5 TO 10 [facility] Interpretation and review of laboratory results Abnormal [facility] Mucus, UA 1+ Abnormal None [facility] RBC clumps Auto (Urine sed) [#/Area] None [facility] WBC, UA 0 TO 2 [facility] No Panel Informationon 04-24 [facility] Urinalysison 04-24-2022 Bilirubin Urine Negative NEGATIVE [facility] Color, UA Yellow Yellow [facility] Glucose Auto test strip (U) [Mass/Vol] Negative NEGATIVE [facility] Interpretation and review of laboratory results Abnormal [facility] Ketones (U) [Mass/Vol] 2+ Abnormal NEGATIVE [facility] Leukocyte esterase Auto test strip Ql (U) Negative NEGATIVE [facility] Nitrite Auto test strip Ql (U) Negative NEGATIVE [facility] Protein (U) [Mass/Vol] 5.0 - 9.0 [facility] Protein (U) [Mass/Vol] Negative NEGATIVE [facility] Specific Cropsey, UA 1.010 1.010 - 1.020 [facility] Turbidity UA SLIGHTLY CLOUDY Abnormal Clear [facility] Urine Hgb Negative NEGATIVE [facility] Urobilinogen, Urine Normal Normal [facility] , urineon 3 Beta HCG ( test) Ql (U) Negative NEGATIVE [facility] Comment on above: Specimens with hCG l evels near the threshold of the test (25 mIU/mL) may give a negative or indeterminate result. In such cases, another test should be performed with a new specimen in 48-72 hours. If early is suspected clinically in this setting, correlation with quantitative serum b-hCG level is suggested. [employer] has confirmed the use of plasma for this test. This has not been cleared or approved by the U.S. Food and Drug Administration. The FDA has determined that such clearance is not necessary. [facility] Cholesterol [Mass/volume] in Serum or PlasmaOrdered By: Feliberto Faust on 10-27-2021 Cholesterol [Mass/Vol] 102 mg/dL 140-200 [facility] Comment on above: Chol less than 200 m g/dl low risk Chol 201-239 mg/dl borderline risk Chol 240 mg/dl and greater high risk Cholesterol in LDL Calc [Mas s/Vol]Ordered By: Feliberto Faust on 10-27-2021 Cholesterol in LDL [Mass/Vol] 58 mg/dL 0-100 [facility] Comment on above: LDL ATP III CLASSIFI CATION LDL less than 100 mg/dL Optimal LDL 100-129 mg/dL Near or above optimal LDL 130-159 mg/dL Borderline high LDL 160-189 mg/dL High LDL greater than 189 mg/dL Very high Cholesterol in VLDL Calc [Ma ss/Vol]Ordered By: Feliberto Faust on 10-27-2021 Cholesterol in VLDL [Mass/Vol] 13 mg/dL [facility] ECG 12 lead ECGon 10-27-2021 [address] [facility] [place] [address] Electrocardiograph Report Signed Patient: Bennett Vaughn MR#: [id number] 7 : 1995 Acct:[id number] Age/Sex: 26 / F ADM Date: 10/26/21 Loc: Room: [address] [place] [address] Type: DIS IN Attending Dr: Feliberto Faust [...] : 416 ms Sinus bradycardia with short SD Otherwise normal ECG When compared with ECG of 10-APR-2019 09:44, Vent. rate has decreased BY 29 BPM Confirmed by PAYAM LIVINGSTON DO ([id number]) on 10/27/2021 1:03:16 PM Referred By: Electronically Signed By:PAYAM LIVINGSTON DO Transcribed By: MUS Signed By Payam Livingston DO 10/27 1303 Normal [facility] Lipid Panelon 10-27-2021 Cholesterol [Mass/Vol] 102 mg/dL Low 140-200 [facility] Comment on above: Result Comment: Chol less than 200 mg/dl low risk Chol 201-239 mg/dl borderline risk Chol 240 mg/dl and greater high risk Performed By: #### L IPID, TSH3 wRFLX, [id number] #### [facility] [address] [place] [id number] [facility] Cholesterol in HDL [Mass/Vol] 30 mg/dL Low 35-85 [facility] Comment on above: Result Comment: HDL CHOL ATP-III CLASSIFICATION Cardiovascular Risk HDL > or equal to 60 mg/dL LOW HDL < 40 mg/dL HIGH Performed By: #### L IPID, TSH3 wRFLX, [id number] #### [facility] [address] [id number] [facility] Cholesterol.total/Fanny sterol in HDL [Mass ratio] 3.4 {ratio} Normal <5.0 [facility] Comment on above: Performed By: #### L IPID, TSH3 wRFLX, [id number] #### [facility] [address] [place] [address] [place] LDL Cholesterol,Calculated 58 mg/dL Normal 0-100 [facility] Comment on above: Result Comment: LDL ATP III CLASSIFICATION LDL less than 100 mg/dL Optimal LDL 100-129 mg/dL Near or above optimal LDL 130-159 mg/dL Borderline high LDL 160-189 mg/dL High LDL greater than 189 mg/dL Very high Performed By: #### L IPID, TSH3 wRFLX, [id number] #### [facility] [address] [place] [address] [place] Triglyceride w/Reflex 68 mg/dL Normal 35-149 [facility] Comment on above: Result Comment: TRIG ATP III CLASSIFICATION TRIG less than 150 mg/dL Normal TRIG 150-199 mg/dL Borderline high TRIG 200-500 mg/dL High TRIG greater than 500 mg/dL Very high Standard traceable to the Center for Disease Conrtrol and Prevention (CDC) test method. Performed By: #### L IPID, TSH3 wRFLX, [id number] #### [facility] [address] VLDL CHOLESTEROL 13 mg/dL Normal [facility] Comment on above: Performed By: #### L IPID, TSH3 wRFLX, [id number] #### [facility] [address] No Panel InformationOrdered By: Feliberto Faust on 10-27-2021 25-Hydroxy Vitamin D Total 36.4 ng/mL 30-100 [facility] Comment on above: VITAMIN D STATUS [...] Cholesterol in HDL [Mass/Vol] 30 mg/dL 35-85 [facility] Comment on above: HDL CHOL ATP-III CLA SSIFICATION Cardiovascular Risk HDL > or equal to 60 mg/dL LOW HDL < 40 mg/dL HIGH Serum or plasma total choles terol/high density lipoprotein (HDL) cholesterol mass ratOrdered By: Feliberto Faust on 10-27-2021 Cholesterol.total/Fanny sterol in HDL [Mass ratio] 3.4 {ratio} <5.0 [facility] TSH DL <= 0.005 mIU/L QnOrde red By: Feliberto Faust on 10-27-2021 TSH Qn 1.28 m[IU]/L 0.45-5.33 [facility] Thyroid Stim Hormone w/Rflxo n 10-27-2021 Thyroid Stim Hormone w/Rflx 1.28 u[iU]/mL Normal 0.45-5.33 [facility] Comment on above: Performed By: #### L IPID, TSH3 wRFLX, [id number] #### [facility] [address] [id number] [facility] Triglyceride [Mass/volume] i n Serum or PlasmaOrdered By: Feliberto Faust on 10-27-2021 Triglyceride [Mass/Vol] 68 mg/dL 35-149 [facility] Comment on above: TRIG ATP III CLASSIF ICATION TRIG less than 150 mg/dL Normal TRIG 150-199 mg/dL Borderline high TRIG 200-500 mg/dL High TRIG greater than 500 mg/dL Very high Standard traceable to the Center for Disease Conrtrol and Prevention (CDC) test method. Vitamin D 25 Hydroxy Totalon 10-27-2021 Vitamin D 25 Hydroxy Total 36.4 ng/mL Normal 30-100 [facility] Comment on above: Result Comment: KELSEY MIN D STATUS 25(OH)VITAMIN D RANGE (ng/mL) Deficient <20 Insufficient 20 to <30 Sufficient 30 to 100 Reference: Kath MF,Ramón NC, Teetee DAVIS, et al. Evaluation,treatment, and prevention of vitamin D deficiency; an Endocrine Society clinical practice guideline. JCEM. 2010; 96(7):1911-30. PERFORMED BY: [place] [address] PATHOLOGIST NETWORK SUPPORT ADMINISTRATOR JAMES MCNAIR M.D. Performed By: #### C BC, ETOH, CMP #### [facility] [address] [id number] [facility] Albumin [Mass/volume] in Ser um or PlasmaOrdered By: Ed Amaral on 10-26-2021 Albumin [Mass/Vol] 4.0 g/dL 3.2-5.5 [facility] Amphetamine Screen Ql (U)Ord ered By: Ed Amaral on 10-26-2021 Amphetamines Ql (U) Negative Negative [facility] Automated erythrocytes count in urine sediment (number/area)Ordered By: Ed Amaral on 10-26-2021 RBC Auto (Urine sed) [#/Area] 0-1 [HPF] 0-4 [facility] Automated leukocytes count i n urine sediment (number/area)Ordered By: Ed Amaral on 10-26-2021 WBC Auto (Urine sed) [#/Area] 1-2 [HPF] 0-4 [facility] Automated urine color determ inationOrdered By: Ed Amaral on 10-26-2021 Color (U) Yellow Normal Yellow [facility] Comment on above: Order Comment: Name Collection Type:: Clean-Voided Midstream Performed By: #### S OFIANEG, URDS, ADDONUAPLUS, UHCG, COVID-19 FELI #### [facility] [address] Barbiturates [Presence] in U rineOrdered By: Ed Amaral on 10-26-2021 Barbiturates Ql (U) Negative Negative [facility] Basophils Auto (Bld) [#/Vol] Ordered By: Ed Amaral on 10-26-2021 Basophils (Bld) [#/Vol] 0.1 10*3/uL 0.0-0.2 [facility] Basophils/100 WBC Auto (Bld) Ordered By: Ed Amaral on 10-26-2021 Basophils/100 WBC (Bld) 0.8 % . [facility] Benzodiazepines [Presence] i n UrineOrdered By: Ed Amaral on 10-26-2021 Benzodiazepines Ql (U) Negative Negative [facility] Bilirubin Test strip Ql (U)O rdered By: Ed Amaral on 10-26-2021 Bilirubin Ql (U) Negative Negative [facility] Blood hemoglobin measurement (mass/volume)Ordered By: Ed Amaral on 10-26-2021 Hemoglobin (Bld) [Mass/Vol] 13.3 g/dL 11.8-15.4 [facility] Blood leukocytes automated c ount (number/volume)Ordered By: Ed Amaral on 10-26-2021 WBC (Bld) [#/Vol] 10.2 10*3/uL 4.5-11.0 [facility] COVID-19 Antigenon 2 COVID-19 Antigen Healthcare [...] developed and its performance characteristic determined by [employer] and validated at [facility]. This test has not been FDA [...] for SARS Antigen by ERNESTO PERFORMED BY: [place] [address] PATHOLOGIST NETWORK SUPPORT ADMINISTRATOR JAMES MCNAIR M.D. [facility] Comment on above: Performed By: #### S BALJINDER HOBSON, ADDONUAPLUS, UHCG, COVID-19 FELI #### [facility] [address] COVID-19 SOFIAOrdered By: Archie Amaral on 10-26-2021 SARS-CoV+SARS-CoV-2 (COVID-19) Ag IA.rapid Ql (Resp) Negative Negative [facility] Comment on above: This is a duplicate Feli SARS Antigen (ERNESTO) result to be used for statistical tracking purpose only. Cannabinoids [Presence] in U rine by Screen methodOrdered By: Ed Amaral on 10-26-2021 Cannabinoids Screen Ql (U) Positive Negative [facility] Comment on above: These are unconfirme d results and should not be used for legal purposes. Drug Cut-Off Concentration: AMPH 1000 ng/mL SANCHEZ 200 ng/mL RENZO 200 ng/mL COCM 300 ng/mL OP 300 ng/mL PCP 25 ng/mL THC 20 ng/mL Complete Blood Count Auto Di ffon 10-26-2021 Basophils (Bld) [#/Vol] 0.1 10*3/uL Normal 0.0-0.2 [facility] Comment on above: Result Comment: PERF ORMED BY: [place] [address] PATHOLOGIST NETWORK SUPPORT ADMINISTRATOR JAMES MCNAIR M.D. Performed By: #### C BC, ETOH, CMP #### [address] Basophils/100 WBC (Bld) 0.8 % Normal . [facility] Comment on above: Performed By: #### C BC, ETOH, CMP #### [address] Eosinophils (Bld) [#/Vol] 0.2 10*3/uL Normal 0.0-0.45 [facility] Comment on above: Performed By: #### C BC, ETOH, CMP #### [address] Eosinophils/100 WBC (Bld) 1.9 % Normal . [facility] Comment on above: Performed By: #### C BC, ETOH, CMP #### [address] Erythrocyte distribution width (RBC) [Ratio] 13.0 % Normal 11.9-15.3 [facility] Comment on above: Performed By: #### C BC, ETOH, CMP #### [address] Hematocrit (Bld) [Volume fraction] 39.1 % Normal 34.0-46.4 [facility] Comment on above: Performed By: #### C BC, ETOH, CMP #### [facility] [address] [place] [address] [place] Hemoglobin (Bld) [Mass/Vol] 13.3 g/dL Normal 11.8-15.4 [facility] Comment on above: Performed By: #### C BC, ETOH, CMP #### [facility] [address] Lymphocytes (Bld) [#/Vol] 2.2 10*3/uL Normal 1.00-4.8 [facility] Comment on above: Performed By: #### C BC, ETOH, CMP #### [facility] [address] Lymphocytes/100 WBC (Bld) 21.5 % Normal . [facility] Comment on above: Performed By: #### C BC, ETOH, CMP #### [facility] [address] MCH (RBC) [Entitic mass] 32.9 pg Normal 24.7-34.3 [facility] Comment on above: Performed By: #### C BC, ETOH, CMP #### [facility] [address] [place] [address] [place] MCV (RBC) [Entitic vol] 96.5 fL Normal 80-100 [facility] Comment on above: Performed By: #### C BC, ETOH, CMP #### [facility] [address] Mean Corpuscular HGB Conc 34.1 g/dL Normal 32.0-35.0 [facility] Comment on above: Performed By: #### C BC, ETOH, CMP #### [facility] [address] [place] [address] [place] Monocytes (Bld) [#/Vol] 0.6 10*3/uL Normal 0.0-0.8 [facility] Comment on above: Performed By: #### C BC, ETOH, CMP #### [facility] [address] [place] [address] [place] Monocytes/100 WBC (Bld) 6.2 % Normal . [facility] Comment on above: Performed By: #### C BC, ETOH, CMP #### [facility] [address] Neutrophils (Bld) [#/Vol] 7.1 10*3/uL Normal 1.8-7.7 [facility] Comment on above: Performed By: #### C BC, ETOH, CMP #### [facility] [address] Neutrophils/100 WBC (Bld) 69.6 % Normal . [facility] Comment on above: Performed By: #### C BC, ETOH, CMP #### [facility] [address] Nucleated RBC/100 WBC (Bld) [Ratio] 0.0 % Normal 0-0.5 [facility] Comment on above: Performed By: #### C BC, ETOH, CMP #### [address] Platelet mean volume (Bld) [Entitic vol] 9.0 fL Normal 6.3-10.7 [facility] Comment on above: Performed By: #### C BC, ETOH, CMP #### [facility] [address] [place] [address] [place] Platelets (Bld) [#/Vol] 173 10*3/uL Normal 150-450 [facility] Comment on above: Performed By: #### C BC, ETOH, CMP #### [facility] [address] [place] [address] [place] RBC (Bld) [#/Vol] 4.05 10*6/uL Normal 3.60-5.00 [facility] Comment on above: Performed By: #### C BC, ETOH, CMP #### [facility] [address] [place] [address] [place] WBC (Bld) [#/Vol] 10.2 10*3/uL Normal 4.5-11.0 [facility] Comment on above: Performed By: #### C BC, ETOH, CMP #### [address] Comprehensive Metabolic Pane [place] 08-30-2022 Albumin [Mass/Vol] 4.0 g/dL Normal 3.2-5.5 [facility] Comment on above: Performed By: #### C BC, ETOH, CMP #### [address] Albumin/Globulin [Mass ratio] 1.5 {ratio} Normal [facility] Comment on above: Performed By: #### C BC, ETOH, CMP #### [facility] [address] ALP [Catalytic activity/Vol] 55 U/L Normal 32-92 [facility] Comment on above: Performed By: #### C BC, ETOH, CMP #### [address] ALT [Catalytic activity/Vol] 20 U/L Normal 10-60 [facility] Comment on above: Performed By: #### C BC, ETOH, CMP #### [address] Anion gap [Moles/Vol] 10.1 mmol/L Normal 6.0-15.0 [facility] Comment on above: Performed By: #### C BC, ETOH, CMP #### [address] AST [Catalytic activity/Vol] 17 U/L Normal 10-42 [facility] Comment on above: Performed By: #### C BC, ETOH, CMP #### [address] Bilirubin [Mass/Vol] 0.4 mg/dL Normal 0.3-1.2 [facility] Comment on above: Performed By: #### C BC, ETOH, CMP #### [address] Calcium [Mass/Vol] 9.5 mg/dL Normal 8.2-10.2 [facility] Comment on above: Performed By: #### C BC, ETOH, CMP #### [place] [address] [place] Chloride [Moles/Vol] 104 mmol/L Normal 95-114 [facility] Comment on above: Performed By: #### C BC, ETOH, CMP #### [address] CO2 [Moles/Vol] 25.3 mmol/L Normal 22.0-30.0 [facility] Comment on above: Performed By: #### C BC, ETOH, CMP #### [facility] [address] Creatinine [Mass/Vol] 0.81 mg/dL Normal 0.44-1.03 [facility] Comment on above: Performed By: #### C BC, ETOH, CMP #### [address] Creatinine Clr Calc Pharmacy 97.62 [facility] Comment on above: Result Comment: PERF ORMED BY: [place] [address] PATHOLOGIST NETWORK SUPPORT ADMINISTRATOR JAMES MCNAIR M.D. Performed By: #### C BC, ETOH, CMP #### [address] Estimated GFR ( Nette > 60 [facility] Comment on above: Result Comment: GFR estimated reference range: According to KDOQI guidelines, <60 ml/min/1.73m2 is sufficient to diagnose a patient with chronic kidney disease. Performed By: #### C BC, ETOH, CMP #### [address] Estimated GFR (Non- Am > 60 [facility] Comment on above: Performed By: #### C BC, ETOH, CMP #### [address] Globulin (S) [Mass/Vol] 2.7 g/dL Normal [facility] Comment on above: Performed By: #### C BC, ETOH, CMP #### [facility] [address] Glucose [Mass/Vol] 98 mg/dL Normal 70-100 [facility] Comment on above: Result Comment: [place] Glucose Reference Range is dependent on time and content of last meal. Glucose of more than 200 mg/dL in a nonstressed, ambulatory subject supports the diagnosis of Diabetes Mellitus. ADA recommended reference range Performed By: #### C BC, ETOH, CMP #### [facility] [address] Potassium [Moles/Vol] 3.4 mmol/L Low 3.5-5.1 [facility] Comment on above: Performed By: #### C BC, ETOH, CMP #### [facility] [address] [place] [address] [place] Protein [Mass/Vol] 6.7 g/dL Normal 6.1-7.9 [facility] Comment on above: Performed By: #### C BC, ETOH, CMP #### [facility] [address] [place] [address] [place] Sodium [Moles/Vol] 136 mmol/L Normal 136-146 [facility] Comment on above: Performed By: #### C BC, ETOH, CMP #### [facility] [address] [place] [id number] [place] Urea nitrogen [Mass/Vol] 6 mg/dL Low 9-23 [facility] Comment on above: Performed By: #### C BC, ETOH, CMP #### [facility] [address] [place] [id number] [place] Creatinine and Glomerular fi ltration rate.predicted panel (S/P/Bld)Ordered By: Ed Amaral on 10-26-2021 Creatinine [Mass/Vol] 0.81 mg/dL 0.44-1.03 [facility] Dipstick and Microscopicon 0 10-26-2021 Appearance (U) Clear Normal Clear [facility] Comment on above: Order Comment: Name Collection Type:: Clean-Voided Midstream Performed By: #### S OFIANEG, URDS, ADDONUAPLUS, UHCG, COVID-19 FELI #### [facility] [address] [place] [id number] [place] Bilirubin,Urine Negative Normal Negative [facility] Comment on above: Order Comment: Name Collection Type:: Clean-Voided Midstream Performed By: #### S OFIANEG, URDS, ADDONUAPLUS, UHCG, COVID-19 FELI #### [facility] [address] Glucose Ql (U) Normal Normal Normal [facility] Comment on above: Order Comment: Name Collection Type:: Clean-Voided Midstream Performed By: #### S OFIANEG, URDS, ADDONUAPLUS, UHCG, COVID-19 FELI #### [facility] [address] [place] [address] [place] Ketones Ql (U) Negative Normal Negative [facility] Comment on above: Order Comment: Name Collection Type:: Clean-Voided Midstream Performed By: #### S OFIANEG, URDS, ADDONUAPLUS, UHCG, COVID-19 FELI #### [facility] [address] [place] [address] [place] Leukocyte esterase Test strip Ql (U) 1+ High Negative [facility] Comment on above: Order Comment: Name Collection Type:: Clean-Voided Midstream Performed By: #### S OFIANEG, URDS, ADDONUAPLUS, UHCG, COVID-19 FELI #### [facility] [address] [place] [address] [place] Nitrite,Urine Negative Normal Negative [facility] Comment on above: Order Comment: Name Collection Type:: Clean-Voided Midstream Performed By: #### S OFIANEG, URDS, ADDONUAPLUS, UHCG, COVID-19 FELI #### [facility] [address] [place] [address] [place] Occult Blood,Urine Negative Normal Negative [facility] Comment on above: Order Comment: Name Collection Type:: Clean-Voided Midstream Performed By: #### S OFIANEG, URDS, ADDONUAPLUS, UHCG, COVID-19 FELI #### [facility] [address] [place], [place] [id number] [place] Protein,Urine Negative Normal Negative [facility] Comment on above: Order Comment: Name Collection Type:: Clean-Voided Midstream Performed By: #### S OFIANEG, URDS, ADDONUAPLUS, UHCG, COVID-19 FELI #### [facility] [address] [place] [address] RBC LM.HPF (Urine sed) [#/Area] 0 /[HPF] Normal 0-4 [facility] Comment on above: Order Comment: Name Collection Type:: Clean-Voided Midstream Performed By: #### S OFIANEG, URDS, ADDONUAPLUS, UHCG, COVID-19 FELI #### [address] Specificy Cropsey,Urine 1.005 Normal 1.001-1.030 [facility] Comment on above: Order Comment: Name Collection Type:: Clean-Voided Midstream Performed By: #### S OFIANEG, URDS, ADDONUAPLUS, UHCG, COVID-19 FELI #### [address] Squamous Epithelial Cell,Urine 1-2 Normal 0-2 [facility] Comment on above: Order Comment: Name Collection Type:: Clean-Voided Midstream Performed By: #### S OFIANEG, URDS, ADDONUAPLUS, UHCG, COVID-19 FELI #### [address] Urobilinogen,Urine Normal Normal Normal [facility] Comment on above: Order Comment: Name Collection Type:: Clean-Voided Midstream Performed By: #### S OFIANEG, URDS, ADDONUAPLUS, UHCG, COVID-19 FELI #### [facility] [address] [place] [address] WBC,Urine 1-2 Normal 0-4 [facility] Comment on above: Order Comment: Name Collection Type:: Clean-Voided Midstream Performed By: #### S OFIANEG, URDS, ADDONUAPLUS, UHCG, COVID-19 FEIL #### [address] Drug Screen,Urineon 10-27-19 22 Amphetamine Screen,Urine Negative Normal Negative [facility] Comment on above: Performed By: #### S OFIANEG, URDS, ADDONUAPLUS, UHCG, COVID-19 FELI #### [address] Barbiturate Screen,Urine Negative Normal Negative [facility] Comment on above: Performed By: #### S OFIANEG, URDS, ADDONUAPLUS, UHCG, COVID-19 FELI #### [address] Benzodiazepines Screen,Urine Negative Normal Negative [facility] Comment on above: Performed By: #### S OFIANEG, URDS, ADDONUAPLUS, UHCG, COVID-19 FELI #### [address] Cannabinoid Screen,Urine Positive High Negative [facility] Comment on above: Result Comment: Thes e are unconfirmed results and should not be used for legal purposes. Drug Cut-Off Concentration: AMPH 1000 ng/mL SANCHEZ 200 ng/mL RENZO 200 ng/mL COCM 300 ng/mL OP 300 ng/mL PCP 25 ng/mL THC 20 ng/mL PERFORMED BY: [place] [address] PATHOLOGIST NETWORK SUPPORT ADMINISTRATOR JAMES MCNAIR M.D. Performed By: #### S OFIANEG, URDS, ADDONUAPLUS, UHCG, COVID-19 FELI #### [address] Cocaine Screen,Urine Negative Normal Negative [facility] Comment on above: Performed By: #### S OFIANEG, URDS, ADDONUAPLUS, UHCG, COVID-19 FELI #### [place] [address] [place] Opiate Screen,Urine Negative Normal Negative [facility] Comment on above: Performed By: #### S OFIANEG, URDS, ADDONUAPLUS, UHCG, COVID-19 FELI #### [facility] [address] Phencyclidine Screen,Urine Negative Normal Negative [facility] Comment on above: Performed By: #### S BALJINDER HOBSON, ADDONUAPLUS, UHCG, COVID-19 FELI #### [facility] [address] Eosinophils Auto (Bld) [#/Vo l]Ordered By: Ed Amaral on 10-26-2021 Eosinophils (Bld) [#/Vol] 0.2 10*3/uL 0.0-0.45 [facility] Eosinophils/100 WBC Auto (Bl d)Ordered By: Ed Amaral on 10-26-2021 Eosinophils/100 WBC (Bld) 1.9 % . [facility] Erythrocyte distribution wid th Auto (RBC) [Ratio]Ordered By: Ed Amaral on 10-26-2021 Erythrocyte distribution width (RBC) [Ratio] 13.0 % 11.9-15.3 [facility] Estimated glomerular filtrat ion rate (GFR) non- AmericanOrdered By: Ed Amaral on 10-26-2021 GFR/1.73 sq M.predicted among non-blacks MDRD (S/P/Bld) [Vol rate/Area] > 60 mL/Min [facility] Ethyl Alcohol Profileon 09-29 Ethanol [Mass/Vol] mg/dL Normal [facility] Comment on above: Performed By: #### C BC, ETOH, CMP #### [facility] [address] Percent Ethanol Not performed Normal [facility] Comment on above: Result Comment: PERF ORMED BY: [place] [address] PATHOLOGIST NETWORK SUPPORT ADMINISTRATOR JAMES MCNAIR M.D. Performed By: #### C BC, ETOH, CMP #### [facility] [address] [place] [address] Globulin Calc (S) [Mass/Vol] Ordered By: Ed Amaral on 10-26-2021 Globulin (S) [Mass/Vol] 2.7 g/dL F [facility] HCG ( test) IA.rapi d Ql (U)Ordered By: Ed Amaral on 10-26-2021 HCG ( test) Ql (U) Negative [facility] HCG,Urineon 10-26-2021 Beta HCG ( test) Ql (U) Negative Normal [facility] Comment on above: Order Comment: Name Collection Type:: Clean-Voided Midstream Result Comment: PERF ORMED BY: [facility] [address] [place] [address] PATHOLOGIST NETWORK SUPPORT ADMINISTRATOR JAMES MCNAIR M.D. Performed By: #### S OFIANEG, URDS, ADDONUAPLUS, UHCG, COVID-19 FELI #### [address] Hematocrit Auto (Bld) [Volum e fraction]Ordered By: Ed Amaral on 10-26-2021 Hematocrit (Bld) [Volume fraction] 39.1 % 34.0-46.4 [facility] Ketones Auto test strip (U) [Mass/Vol]Ordered By: Ed Amaral on 10-26-2021 Ketones (U) [Mass/Vol] Negative Negative Fi [facility] - Drug toxicology Ordered By: Ed Amaral on 10-26-2021 Opiates Ql (U) Negative Negative [facility] - Hematology and Cell countsOrdered By: Ed Amaral on 10-26-2021 Nucleated RBC/100 WBC (Bld) [Ratio] 0.0 % 0-0.5 [facility] Lymphocytes Auto (Bld) [#/Vo l]Ordered By: Ed Amaral on 10-26-2021 Lymphocytes (Bld) [#/Vol] 2.2 10*3/uL 1.00-4.8 [facility] Lymphocytes/100 WBC Auto (Bl d)Ordered By: Ed Amaral on 10-26-2021 Lymphocytes/100 WBC (Bld) 21.5 % . [facility] MCH Auto (RBC) [Entitic mass ]Ordered By: Ed Amaral on 10-26-2021 MCH (RBC) [Entitic mass] 32.9 pg 24.7-34.3 [facility] MCHC Auto (RBC) [Mass/Vol]Or dered By: Ed Amaral on 10-26-2021 MCHC (RBC) [Mass/Vol] 34.1 g/dL 32.0-35.0 Fir [facility] MCV Auto (RBC) [Entitic vol] Ordered By: Ed Amaral on 10-26-2021 MCV (RBC) [Entitic vol] 96.5 fL 80-100 [facility] Monocytes Auto (Bld) [#/Vol] Ordered By: Ed Amaral on 10-26-2021 Monocytes (Bld) [#/Vol] 0.6 10*3/uL 0.0-0.8 [facility] Monocytes/100 WBC Auto (Bld) Ordered By: Ed Amaral on 10-26-2021 Monocytes/100 WBC (Bld) 6.2 % . [facility] Neutrophils Auto (Bld) [#/Vo l]Ordered By: Ed Amaral on 10-26-2021 Neutrophils (Bld) [#/Vol] 7.1 10*3/uL 1.8-7.7 [facility] Neutrophils/100 WBC Auto (Bl d)Ordered By: Ed Amaral on 10-26-2021 Neutrophils/100 WBC (Bld) 69.6 % . [facility] Nitrite Test strip Ql (U)Ord ered By: Ed Amaral on 10-26-2021 Nitrite Ql (U) Negative Negative [facility] No Panel InformationOrdered By: Ed Amaral on 10-26-2021 Estimated GFR () > 60 mL/Min [facility] Comment on above: GFR estimated refere nce range: According to KDOQI guidelines, <60 ml/min/1.73m2 is sufficient to diagnose a patient with chronic kidney disease. Pharmacy Creatinine Clearance (Chem 97.62 [facility] SARS Antigen (LFIA) [facility] Phencyclidine Screen Ql (U)O rdered By: Ed Amaral on 10-26-2021 Phencyclidine Ql (U) Negative Negative [facility] Platelet mean volume Auto (B ld) [Entitic vol]Ordered By: Ed Amaral on 10-26-2021 Platelet mean volume (Bld) [Entitic vol] 9.0 fL 6.3-10.7 [facility] Platelets Auto (Bld) [#/Vol] Ordered By: Ed Amaral on 10-26-2021 Platelets (Bld) [#/Vol] 173 10*3/uL 150-450 [facility] Protein Auto test strip (U) [Mass/Vol]Ordered By: Ed Amaral on 10-26-2021 Protein (U) [Mass/Vol] Negative Negative [facility] Protein [Mass/volume] in Ser um or PlasmaOrdered By: Ed Amaral on 10-26-2021 Protein [Mass/Vol] 6.7 g/dL 6.1-7.9 [facility] RBC Auto (Bld) [#/Vol]Ordere d By: Ed Amaral on 10-26-2021 RBC (Bld) [#/Vol] 4.05 10*6/uL 3.60-5.00 [facility] Serum or plasma alanine daniel otransferase measurement without P-5'-P (enzymatic activiOrdered By: Ed Amaral on 10-26-2021 ALT No additional P-5'-P [Catalytic activity/Vol] 20 U/L 10-60 [facility] Serum or plasma albumin/glob ulin mass ratioOrdered By: Ed Amaral on 10-26-2021 Albumin/Globulin [Mass ratio] 1.5 {ratio} [facility] Serum or plasma alkaline jame sphatase measurement (enzymatic activity/volume)Ordered By: Ed Amaral on 10-26-2021 ALP [Catalytic activity/Vol] 55 U/L 32-92 [facility] Serum or plasma anion gap de terminationOrdered By: Ed Amaral on 10-26-2021 Anion gap [Moles/Vol] 10.1 mmol/L 6.0-15.[address] [facility] Serum or plasma aspartate am inotransferase measurement (enzymatic activity/volume)Ordered By: Ed Amaral on 10-26-2021 AST [Catalytic activity/Vol] 17 U/L 10-42 [facility] Serum or plasma calcium stephane urement (mass/volume)Ordered By: Ed Amaral on 10-26-2021 Calcium [Mass/Vol] 9.5 mg/dL 8.2-10.2 [facility] Serum or plasma chloride rios surement (moles/volume)Ordered By: Ed Amaral on 10-26-2021 Chloride [Moles/Vol] 104 mmol/L 95-114 [facility] Serum or plasma ethanol stephane urement (mass/volume)Ordered By: Ed Amaral on 10-26-2021 Ethanol [Mass/Vol] mg/dL [facility] Ethanol [Mass/Vol] TNP [facility] Comment on above: Test not performed Serum or plasma glucose stephane urement (mass/volume)Ordered By: dE Amaral on 10-26-2021 Glucose [Mass/Vol] 98 mg/dL 70-100 [facility] Comment on above: ADA recommended refe rence range Random Glucose Reference Range is dependent on time and content of last meal. Glucose of more than 200 mg/dL in a nonstressed, ambulatory subject supports the diagnosis of Diabetes Mellitus. Serum or plasma potassium me asurement (moles/volume)Ordered By: Ed Amaral on 10-26-2021 Potassium [Moles/Vol] 3.4 mmol/L 3.5-5.1 [facility] Serum or plasma sodium measu rement (moles/volume)Ordered By: Ed Amaral on 10-26-2021 Sodium [Moles/Vol] 136 mmol/L 136-146 [facility] Serum or plasma total biliru bin measurement (mass/volume)Ordered By: Ed Amaral on 10-26-2021 Bilirubin [Mass/Vol] 0.4 mg/dL 0.3-1.2 [facility] Serum or plasma total carbon dioxide measurement (moles/volume)Ordered By: Ed Amaral on 10-26-2021 CO2 [Moles/Vol] 25.3 mmol/L 22.0-30.0 [facility] Serum or plasma urea nitroge n measurement (mass/volume)Ordered By: Ed Amaral on 10-26-2021 Urea nitrogen [Mass/Vol] 6 mg/dL - [facility] Feli Ag Negativeon 10-27-19 Feli Ag Negative Negative Normal Negative [facility] Comment on above: Result Comment: This is a duplicate Feli SARS Antigen (ERNESTO) result to be used for statistical tracking purpose only. PERFORMED BY: [facility] [address] [place] [address] PATHOLOGIST NETWORK SUPPORT ADMINISTRATOR JAMES MCNAIR M.D. Performed By: #### S BALJINDER HOBSON, DAVIDPLUS, UHCG, COVID-19 FELI #### [facility] [address] Specific gravity Auto test s trip (U) [Rel density]Ordered By: Ed Amaral on 10-26-2021 Specific gravity (U) [Rel density] 1.005 1.001-1.030 [facility] Squamous epithelial cells de tection in urine sediment by light microscopyOrdered By: Ed Amaral on 10-26-2021 Epithelial cells.squamous LM Ql (Urine sed) 1-2 [HPF] 0-2 [facility] Urine bacteria detection by automated methodOrdered By: Ed Amaral on 10-26-2021 Bacteria Auto Ql (U) N/A [facility] Urine clarity by refractomet ry automatedOrdered By: Ed Amaral on 10-26-2021 Clarity Refractometry automated (U) Clear Clear [facility] Urine cocaine detectionOrder ed By: Ed Amaral on 10-26-2021 Cocaine Ql (U) Negative Negative [facility] Urine glucose measurement by automated test strip (mass/volume)Ordered By: Ed Amaral on 10-26-2021 Glucose Auto test strip (U) [Mass/Vol] Normal mg/dL Normal [facility] Urine hemoglobin detection b y automated test stripOrdered By: Ed Amaral on 10-26-2021 Hemoglobin Auto test strip Ql (U) Negative Negative [facility] Urine leukocyte esterase det ection by automated test stripOrdered By: Ed Amaral on 10-26-2021 Leukocyte esterase Auto test strip Ql (U) 1+ Negative [facility] Urine pH measurement by auto mated test stripOrdered By: Ed Amaral on 10-26-2021 pH (U) 7.0 [pH] Normal 5.0-9.0 [facility] Comment on above: Order Comment: Name Collection Type:: Clean-Voided Midstream Performed By: #### S OFIANEG, URDS, ADDONUAPLUS, UHCG, COVID-19 FELI #### [facility] [address] [place] [id number] [facility] Urobilinogen Auto test strip (U) [Mass/Vol]Ordered By: Ed Amaral on 10-26-2021 Urobilinogen (U) [Mass/Vol] Normal mg/dL Normal [facility] Viral Non-Resp Culton 2021 Viral Non-Resp Cult Specimen Description .WOUND UPPER .LIP Culture POSITIVE: HSV-1 DNA detected by nucleic acid amp. NEGATIVE: HSV-2 DNA not detected by nucleic acid amplification. Due to the specimen source, HSV 1,2 testing was performed by a molecular method. Report Status FINAL 05/30/2021 Normal [facility] Comment on above: Performed By: #### V [facility] #### [address] [address] Promotional Marketing Agent: Claude Gonzalez MD No Panel InformationOrdered By: Kia Sharma on 05-28-2021 Reported Physicians See Note [facility] Work Phone: Comment on above: Note: Reported Physi cians:Ordering: Andres SharmaaAttending: Andres SharmaaReferring: Kia Sharma Viral Non-Resp Cult See Note [facility] Work Phone: Comment on above: Note: Specimen Descr iption .WOUND UPPER .LIPCulture POSITIVE: HSV-1 DNA detected by nucleic acid amp.NEGATIVE: HSV-2 DNA not detected by nucleic acid amplification.Due to the specimen source, HSV 1,2 testing was performed by a molecular method.Report Status FINAL 2Responsible Observer: [employer] ([id number]) Follicle Stimulating Hormone on 03-10-2021 FSH 4.5 U/L 1.7 - 21.5 U/L [facility] Comment on above: Reference Range: Male: 1.5-12.4 Ovulating Female: Follicular Phase 3.5-12.5 Ovulation Phase 4.7-21.5 Luteal Phase 1.7-7.7 Postmenopausal Female: 25.8-134.8 Luteinizing Hormoneon 2021 LH 3.0 U/L 1.0 - 95.6 U/L [facility] Comment on above: Reference Range: Male: 1.7-8.6 Ovulating Female: Follicular Phase 2.4-12.6 Ovulation Phase 14.0-95.6 Luteal Phase 1.0-11.4 Postmenopausal Female: 7.7-58.5 No Panel Informationon 03-10 [facility] Prolactinon 03-10-2021 Prolactin 5.96 ug/L 4.79 - 23.30 ug/L [facility] Comment on above: The presence of macr oprolactin may cause interference in female patients with various endocrinological diseases or during . [facility] TSH with Reflexon 03-10-2021 TSH Qn 0.72 m[IU]/L [facility] hCG, Quantitative, on 03-10-2021 hCG Quant <1 <5 IU/L [facility] Comment on above: Non-preg premeno <=5 Postmeno <=8 Male <=3 If HCG results do not concur with clinical observations, additional testing to confirm results is recommended. Elevated results not associated with may be found in patients with other diseases such as tumors of the germ cells (testis, ovaries, etc.), bladder, pancreas, stomach, lungs, and liver. [facility] , UrineOrdered By: Anthony Galloway on 10-14-2020 Beta HCG ( test) Ql (U) Negative NEGATIVE [employer] Phone: Comment on above: Specimens with hCG l evels near the threshold of the test (25 mIU/mL) may give a negative or indeterminate result. In such cases, another test should be performed with a new specimen in 48-72 hours. If early is suspected clinically in this setting, correlation with quantitative serum b-hCG level is suggested. [employer] has confirmed the use of plasma for this test. This has not been cleared or approved by the U.S. Food and Drug Administration. The FDA has determined that such clearance is not necessary. [facility] Work Phone: COVID-19Ordered By: Sabas siddiqi on 10-10-2020 SARS-CoV-2 (COVID-19) RNA SANDRA+probe Ql (Unsp spec) [employer] Phone: SARS-CoV-2 (COVID-19) RNA SANDRA+probe Ql (Unsp spec) Not detected Not Detected [employer] Phone: Comment on above: The specimen is NEGATIVE for SARS-CoV-2, the novel coronavirus associated with COVID-19. A negative result does not rule out COVID-19. [facility] SARS-CoV-2 for use on the [employer]/8800 Systems is a real-time RT-PCR test intended [...] this assay. Fact sheet for Healthcare Providers: https://www.fda.gov/media/679200/download Fact sheet for Patients: https://www.fda.gov/media/829633/download METHODOLOGY: RT-PCR Source .[address] Phone: [employer] Phone: Microscopic Urinalysison Amorphous, UA NOT REPORTED None [facility] [place] [place] Bacteria, UA 1+ Abnormal None [facility], [place] Casts UA NOT REPORTED /LPF [place], [place] Crystals, UA NOT REPORTED None /HPF [facility] [place] Epithelial Cells UA 5 TO 10 [place], [place] Interpretation and review of laboratory results Abnormal [facility], [place] Mucus, UA NOT REPORTED None [facility], [place] Other Observations UA NOT REPORTED NOT REQ. M [facility], [place] RBC (U) [#/Vol] 0 TO 2 [facility] [place] Renal Epithelial, UA NOT REPORTED 0 /HPF [place], [place] Trichomonas, UA NOT REPORTED None [place], [place] WBC, UA 0 TO 2 [place] Yeast, UA NOT REPORTED None [place] , Urineon 0 Beta HCG ( test) Ql (U) Negative NEGATIVE [place] Comment on above: Specimens with hCG l evels near the threshold of the test (25 mIU/mL) may give a negative or indeterminate result. In such cases, another test should be performed with a new specimen in 48-72 hours. If early is suspected clinically in this setting, correlation with quantitative serum b-hCG level is suggested. [facility] has confirmed the use of plasma for this test. This has not been cleared or approved by the U.S. Food and Drug Administration. The FDA has determined that such clearance is not necessary. Urinalysis Reflex to Culture on 02-25-2020 Bilirubin Urine Negative NEGATIVE [place], [place] Color, UA YELLOW YELLOW [place] Glucose, Ur Negative NEGATIVE [place] Ketones Ql (U) Negative NEGATIVE [place] Leukocyte esterase Test strip Ql (U) Negative NEGATIVE [place] Nitrite, Urine Negative NEGATIVE [place] pH, UA 6.5 [place] Protein (U) [Mass/Vol] Negative NEGATIVE [place], [place] Specific [place], UA 1.010 [place], [place] Turbidity UA CLEAR CLEAR [place] Urinalysis Comments NOT REPORTED [place], [place] Urine Hgb Negative NEGATIVE [place] Urobilinogen, Urine Normal Normal [place] Wet Prep, Genitalon 02-25-20 20 Direct Exam NO TRICHOMONAS SEEN [place], [place] Direct Exam NO YEAST OBSERVED [place] Direct Exam CLUE CELLS SEEN Abnormal [place], [place] Interpretation and review of laboratory results Abnormal [place] Special Requests NOT REPORTED [place] Specimen Description .VAGINA [place], [place] Laboratory Studieson 016 Albumin [Mass/Vol] 3.4 g/dL 3.2-5.5 [facility] Albumin/Globulin [Mass ratio] 1.5 {ratio} [facility] ALP [Catalytic activity/Vol] 50 U/L 32-92 [facility] ALT [Catalytic activity/Vol] 17 U/L 10-60 [facility] AST [Catalytic activity/Vol] 16 U/L 10-42 [facility] Basophils (Bld) [#/Vol] 0.0 10*3/uL 0.0-0.2 [facility] Basophils/100 WBC (Bld) 0.3 % F [facility] Bilirubin Ql (U) 0.2 mg/dL Low 0.3-1.2 [facility] Bilirubin.direct [Mass/Vol] mg/dL 0.0-0.4 [facility] Bilirubin.indirect (Body fld) [Mass/Vol] TNP [facility] Comment on above: Test not performed WHEN BILD IS <0.1,IBIL IS NOT ABLE TO BE CALCULATED. Calcium [Mass/Vol] 9.3 mg/dL 8.2-10.2 [facility] Chloride [Moles/Vol] 106 mmol/L 95-114 [facility] Cholesterol [Mass/Vol] 9 mg/dL [facility] Cholesterol [Mass/Vol] 101 mg/dL Low 140-200 [facility] Comment on above: CHOL less than 200 m g/dL Low risk CHOL 201-239 mg/dL Borderline risk CHOL 240 mg/dL and greater High risk Cholesterol in HDL [Mass/Vol] 38 mg/dL 35-85 [facility] Comment on above: HDL CHOL ATP-III CLA SSIFICATION Cardiovascular Risk HDL > or equal to 60 mg/dL Low HDL < 40 mg/dL High Cholesterol.total/Fanny sterol in HDL [Mass ratio] 2.7 {ratio} [facility] CO2 [Moles/Vol] 25.8 mmol/L 22.0-30.0 [facility] Creatinine [Mass/Vol] 0.62 mg/dL 0.44-1.03 [facility] Eosinophils (Bld) [#/Vol] 0.10 10*3/uL 0.0-0.45 [facility] Eosinophils/100 WBC (Bld) 1.5 % [facility] Erythrocyte distribution width (RBC) [Ratio] 13.2 % 11.9-15.3 [facility] Estimated GFR (Non- > 60 [facility] GFR/1.73 sq M.predicted MDRD (S/P/Bld) [Vol rate/Area] mL/min/{1.73_m2} [facility] Comment on above: GFR estimated refere nce range: According to KDOQI guidelines, <60 ml/min/1.73m2 is sufficient to diagnose a patient with chronic kidney disease. Globulin (S) [Mass/Vol] 2.2 g/dL [facility] Glucose [Mass/Vol] 82 mg/dL 70-100 [facility] Comment on above: ADA RECOMMENDED REFE RENCE RANGE Hematocrit (Bld) [Volume fraction] 32.1 % Low 34.0-46.4 [facility] Hemoglobin (Bld) [Mass/Vol] 11.0 g/dL Low 11.8-15.4 [facility] LDL Cholesterol, Calculated 54 mg/dL 0-100 [facility] Comment on above: LDL ATP III CLASSIFI CATION LDL less than 100 mg/dL Optimal LDL 100-129 mg/dL Near or above optimal LDL 130-159 mg/dL Borderline high LDL 160-189 mg/dL High LDL greater than 189 mg/dL Very high Lymphocytes (Bld) [#/Vol] 2.1 10*3/uL 1.00-4.8 [facility] Lymphocytes/100 WBC (Bld) 25.3 % [facility] MCH (RBC) [Entitic mass] 31.9 pg 24.7-34.3 [facility] MCHC (RBC) [Mass/Vol] 34.4 g/dL 32.0-35.0 [facility] MCV (RBC) [Entitic vol] 92.6 fL 80-100 [facility] Monocytes (Bld) [#/Vol] 0.7 10*3/uL 0.0-0.8 [facility] Monocytes/100 WBC (Bld) 8.3 % [facility] Neutrophils (Bld) [#/Vol] 5.3 10*3/uL 1.8-7.7 [facility] Neutrophils/100 WBC (Bld) 64.6 % [facility] Platelet mean volume (Bld) [Entitic vol] 9.5 fL 6.3-10.7 [facility] Platelets (Bld) [#/Vol] 135 10*3/uL Low 150-450 [facility] Potassium [Moles/Vol] 4.3 mmol/L 3.5-5.1 [facility] Protein [Mass/Vol] 5.6 g/dL Low 6.1-7.9 [facility] RBC (Bld) [#/Vol] 3.46 10*6/uL Low 3.60-5.00 [facility] Sodium [Moles/Vol] 138 mmol/L 136-146 [facility] Triglyceride [Mass/Vol] 47 mg/dL 35-149 [facility] Comment on above: TRIG ATP III CLASSIF ICATION TRIG less than 150 mg/dL Normal TRIG 150-199 mg/dL Borderline high TRIG 200-500 mg/dL High TRIG greater than 500 mg/dL Very high Standard traceable to the Center for Disease Conrtrol and Prevention (CDC) test method. Troponin I.cardiac [Mass/Vol] 0.02 ng/mL 0-0.02 [facility] Comment on above: HARIS OR Cut off value > or equal to 0.03 ng/mL in conjunction with clinical conditions of myocardial infarction. (www.[email or web address].org/guidelines) TSH Qn 1.89 uIU/mL 0.340-5.600 [facility] Urea nitrogen [Mass/Vol] 7 mg/dL Low 9-23 [facility] WBC (Bld) [#/Vol] 8.2 10*3/uL 3.8-11.6 [facility] Amorphous sediment LM Ql (Urine sed) 2+ [facility] Comment on above: PHOSPHATES Amphetamines Ql (U) Negative [facility] Appearance (U) Hazy Abnormal [facility] Bacteria LM.HPF (Urine sed) [#/Area] Rare [facility] Benzodiazepines Ql (U) [facility] Bil[facility] Ql (U) Negative [facility] Cocaine Ql (U) Negative [facility] Color (U) Light-yellow [facility] Epithelial cells.squamous LM.HPF (Urine sed) [#/Area] 3-4 /hpf [facility] Glucose (U) [Mass/Vol] Normal mg/dL [facility] Ketones Ql (U) Negative [facility] Leukocyte esterase Test strip Ql (U) Negative [facility] Nitrite Ql (U) Negative [facility] Opiates Ql (U) Negative [facility] pH (U) 7.0 [pH] 5.0-9.0 [facility] Phencyclidine Ql (U) Negative [facility] Protein Ql (U) Negative [facility] RBC (U) [#/Vol] Rare /hpf [facility] Specific gravity (U) [Rel density] 1.010 1.001-1.030 [facility] Urine Barbiturates Screen Positive [facility] Urine Collection Type Type [facility] Comment on above: VOIDED Urine Drug Screen Comment See comment [facility] Comment on above: THESE ARE UNCONFIRME D RESULTS AND SHOULD NOT BE USED FOR LEGAL PURPOSES. DRUG CUT-OFF CONCENTRATION: AMPH 1000 ng/mL SANCHEZ 200 ng/mL RENZO 200 ng/mL COCM 300 ng/mL OP 300 ng/mL PCP 25 ng/mL THC 20 ng/mL Urine Marijuana (THC) Screen Positive [facility] Urine Occult Blood Negative [facility] Urobilinogen Qn (U) Normal mg/dL [facility] WBC (U) [#/Vol] Rare /hpf [facility] Laboratory Studieson 02-19- 016 CK [Catalytic activity/Vol] 51 U/L 22-269 [facility] CK.MB [Mass/Vol] 0.8 ng/mL 0.6-6.3 [facility] Creatine Kinase MB Relative Index 1.5 0.00-2.50 [facility] Vital Signs Date Time Vital Sign Value Performing Clinician Facility 09-12-2023 17:45-0400 Body height 170.2 cm Brenda Stephen APRN - [facility] Work Phone: [employer] 09-12-2023 17:45-0400 Body mass index (BMI) [Ratio] 28.82 kg/m2 Brenda Stephen ROTARY DUMP OPERATOR - CNM Work Phone: [facility] [employer] 09-12-2023 17:45-0400 Body temperature 98.29 [degF] Brenda Stephen ROTARY DUMP OPERATOR - CNM Work Phone: [employer] 09-12-2023 17:45-0400 Body weight 83.46 kg Brenda Stephen ROTARY DUMP OPERATOR - CNM Work Phone: [employer] 09-12-2023 17:45-0400 Diastolic blood pressure 60 mm[Hg] Brenda Stephen ROTARY DUMP OPERATOR - CNM Work Phone: [employer] 09-12-2023 17:45-0400 Heart rate 75 /min Brenda Stephen ROTARY DUMP OPERATOR - CNM Work Phone: [facility] [employer] 09-12-2023 17:45-0400 Respiratory rate 16 /min Brenda Stephen ROTARY DUMP OPERATOR - CNM Work Phone: [employer] 09-12-2023 17:45-0400 SaO2% (BldA) [Mass fraction] 98 % Brenda Stephen ROTARY DUMP OPERATOR - CNM Work Phone: [employer] 09-12-2023 17:45-0400 Systolic blood pressure 110 mm[Hg] Brenda Stephen ROTARY DUMP OPERATOR - CNM Work Phone: [employer] 08-24-2023 20:05-0400 Body temperature 98.1 [degF] Jagdeep D'Abreau DO Work Phone: [employer] 08-24-2023 20:05-0400 Diastolic blood pressure 63 mm[Hg] Jagdeep D'Abreau DO Work Phone: [employer] 08-24-2023 20:05-0400 Heart rate 95 /min Jagdeep D'Abreau DO Work Phone: [employer] 08-24-2023 20:05-0400 Respiratory rate 16 /min Jagdeep Callahaneau DO Work Phone: [employer] 08-24-2023 20:05-0400 SaO2% (BldA) [Mass fraction] 98 % Jagdeep Lozoyau DO Work Phone: [employer] 08-24-2023 20:05-0400 Systolic blood pressure 131 mm[Hg] Jagdeep Callahaneau DO Work Phone: [employer] 08-03-2022 06:56-0400 Body temperature 99 [degF] Samara Paulino MD Work Phone: [employer] 08-03-2022 06:56-0400 Diastolic blood pressure 75 mm[Hg] Samara Paulino MD Work Phone: [employer] 08-03-2022 06:56-0400 Heart rate 129 /min Samara Paulino MD Work Phone: [employer] 08-03-2022 06:56-0400 Respiratory rate 22 /min Samara Paulino MD Work Phone: [employer] 08-03-2022 06:56-0400 SaO2% (BldA) [Mass fraction] 100 % Samara Paulino MD Work Phone: [employer] 08-03-2022 06:56-0400 Systolic blood pressure 131 mm[Hg] Samara Paulino MD Work Phone: [employer] 07-27-2022 18:47-0400 Body height 175.26 cm Mariposa Duncan CNP Work Phone: [facility] Work Phone: 07-27-2022 18:47-0400 Body mass index (BMI) [Ratio] 22 kg/m2 Mariposa Duncan CNP Work Phone: [facility] Work Phone: 07-27-2022 18:47-0400 Body surface area Derived from formula 1.8 m2 Mariposa Duncan CNP Work Phone: [facility] Work Phone: 07-27-2022 18:47-0400 Body temperature 96.3 [degF] Mariposa Duncan CNP Work Phone: [facility] Work Phone: 07-27-2022 18:47-0400 Body weight 67.72 kg Mariposa Duncan CNP Work Phone: [facility] Work Phone: 07-27-2022 18:47-0400 Diastolic blood pressure 63 mm[Hg] Mariposa Duncan CNP Work Phone: [facility] Work Phone: 07-27-2022 18:47-0400 Heart rate 68 /min Mariposa Duncan CNP Work Phone: [facility] Work Phone: 07-27-2022 18:47-0400 SaO2% (BldA) [Mass fraction] 97 % Mariposa Duncan CNP Work Phone: [facility] Work Phone: 07-27-2022 18:47-0400 Systolic blood pressure 117 mm[Hg] Mariposa Duncan CNP Work Phone: [facility] Work Phone: 04-24-2022 13:05-0500 Diastolic blood pressure 60 mm[Hg] Kia Sharma APRN - DIRECTOR OF PLACEMENT Work Phone: [facility] [employer] 04-24-2022 13:05-0500 Systolic blood pressure 122 mm[Hg] Kia Sharma APRN - DIRECTOR OF PLACEMENT Work Phone: [facility] [employer] 04-24-2022 10:44-0500 Body mass index (BMI) [Ratio] 24.78 kg/m2 Kia Leo DIRECTOR OF PLACEMENT Work Phone: [employer] 04-24-2022 10:44-0500 Body temperature 98.4 [degF] Kia Leo DIRECTOR OF PLACEMENT Work Phone: [employer] 04-24-2022 10:44-0500 Body weight 73.94 kg Kia Leo DIRECTOR OF PLACEMENT Work Phone: [facility] [employer] 04-24-2022 10:44-0500 Heart rate 79 /min Kia Leo DIRECTOR OF PLACEMENT Work Phone: [employer] 04-24-2022 10:44-0500 Respiratory rate 20 /min Kia Leo DIRECTOR OF PLACEMENT Work Phone: [facility] [employer] 04-24-2022 10:44-0500 SaO2% (BldA) [Mass fraction] 100 % Kia Leo DIRECTOR OF PLACEMENT Work Phone: [employer] 03-04-2022 14:15-0500 Diastolic blood pressure 78 mm[Hg] Geoff Miller MD Work Phone: [employer] 03-04-2022 14:15-0500 Heart rate 74 /min Geoff Miller MD Work Phone: [employer] 03-04-2022 14:15-0500 Respiratory rate 16 /min Geoff Mliler MD Work Phone: [facility] [employer] 03-04-2022 14:15-0500 SaO2% (BldA) [Mass fraction] 100 % Geoff Miller MD Work Phone: [employer] 03-04-2022 14:15-0500 Systolic blood pressure 131 mm[Hg] Geoff Miller MD Work Phone: [facility] [employer] 03-04-2022 13:30-0500 Body temperature 97.2 [degF] Geoff Miller MD Work Phone: [facility] [employer] 03-04-2022 11:15-0500 Body height 172.7 cm Geoff Miller MD Work Phone: [facility] [employer] 03-04-2022 11:15-0500 Body mass index (BMI) [Ratio] 24.94 kg/m2 Geoff Miller MD Work Phone: [facility] [employer] 03-04-2022 11:15-0500 Body weight 74.39 kg Geoff Miller MD Work Phone: [facility] [employer] 03-01-2022 08:00-0500 Body mass index (BMI) [Ratio] 24.94 kg/m2 Nicholas Denton MD Work Phone: [facility] [employer] 03-01-2022 08:00-0500 Body temperature 98.2 [degF] Nicholas Denton MD Work Phone: [facility] [employer] 03-01-2022 08:00-0500 Body weight 74.39 kg Nicholas Denton MD Work Phone: [facility] [employer] 03-01-2022 08:00-0500 Diastolic blood pressure 61 mm[Hg] Nicholas Denton MD Work Phone: [facility] [employer] 03-01-2022 08:00-0500 Heart rate 89 /min Nicholas Denton MD Work Phone: [facility] [employer] 03-01-2022 08:00-0500 Respiratory rate 20 /min Nicholas Denton MD Work Phone: [facility] [employer] 03-01-2022 08:00-0500 SaO2% (BldA) [Mass fraction] 99 % Nicholas Denton MD Work Phone: [facility] [employer] 03-01-2022 08:00-0500 Systolic blood pressure 138 mm[Hg] Nicholas Denton MD Work Phone: [facility] [employer] 10-29-2021 07:30-0400 Body temperature 96.6 [degF] PHYSICIAN NO [facility] 10-29-2021 07:30-0400 Diastolic blood pressure 70 mm[Hg] PHYSICIAN NO [facility] 10-29-2021 07:30-0400 Heart rate 84 /min PHYSICIAN [facility] 10-29-2021 07:30-0400 Respiratory rate 18 /min PHYSICIAN NO [facility] 10-29-2021 07:30-0400 SaO2% (BldA) [Mass fraction] 97 % PHYSICIAN NO [facility] 10-29-2021 07:30-0400 Systolic blood pressure 110 mm[Hg] PHYSICIAN [facility] 10-27-2021 14:15-0400 Body height 172.72 cm PHYSICIAN [facility] 10-26-2021 20:08-0400 Body weight 58.96 kg PHYSICIAN [facility] 08-17-2021 16:45-0400 Body height 175.26 cm Kia Sharma [facility] Work Phone: [facility] Work Phone: 08-17-2021 16:45-0400 Body mass index (BMI) [Ratio] 20 kg/m2 Kia Sharma [facility] Work Phone: [facility] Work Phone: 08-17-2021 16:45-0400 Body surface area Derived from formula 1.75 m2 Kia Sharma [facility] Work Phone: [facility] Work Phone: 08-17-2021 16:45-0400 Body surface area Derived from formula 1.7 m2 Mariposa Duncan [facility] Work Phone: [facility] Work Phone: 08-17-2021 16:45-0400 Body temperature 96.7 [degF] Kia Sharma [facility] Work Phone: [facility] Work Phone: 08-17-2021 16:45-0400 Body weight 61.33 kg Kia Sharma CNP Work Phone: [facility] Work Phone: 08-17-2021 16:45-0400 Diastolic blood pressure 64 mm[Hg] Kia Sharma CNP Work Phone: [facility] Work Phone: 08-17-2021 16:45-0400 Heart rate 67 /min Kia Sharma CNP Work Phone: [facility] Work Phone: 08-17-2021 16:45-0400 SaO2% (BldA) [Mass fraction] 99 % Kia Sharma CNP Work Phone: [facility] Work Phone: 08-17-2021 16:45-0400 Systolic blood pressure 110 mm[Hg] Kia Sharma CNP Work Phone: [facility] Work Phone: 07-15-2021 15:57-0400 Body height 175.26 cm Kia Sharma CNP Work Phone: [facility] Work Phone: 07-15-2021 15:57-0400 Body mass index (BMI) [Ratio] 19.8 kg/m2 Kia Sharma CNP Work Phone: [facility] Work Phone: 07-15-2021 15:57-0400 Body surface area Derived from formula 1.74 m2 Kia Sharma CNP Work Phone: [facility] Work Phone: 07-15-2021 15:57-0400 Body temperature 98.1 [degF] Kia Sharma CNP Work Phone: [facility] Work Phone: 07-15-2021 15:57-0400 Body weight 60.78 kg Kia Sharma CNP Work Phone: [facility] Work Phone: 07-15-2021 15:57-0400 Diastolic blood pressure 62 mm[Hg] Kia Sharma CNP Work Phone: [facility] Work Phone: 07-15-2021 15:57-0400 Heart rate 68 /min Kia Sharma CNP Work Phone: [facility] Work Phone: 07-15-2021 15:57-0400 Heart Rate Rhythm 1 1 Kia Sharma CNP Work Phone: [facility] Work Phone: 07-15-2021 15:57-0400 SaO2% (BldA) [Mass fraction] 98 % Kia Sharma CNP Work Phone: [facility] Work Phone: 07-15-2021 15:57-0400 Systolic blood pressure 108 mm[Hg] Kia Sharma CNP Work Phone: [facility] Work Phone: 07-01-2021 17:32-0400 Body height 175.26 cm Kia Sharma CNP Work Phone: [facility] Work Phone: 07-01-2021 17:32-0400 Body mass index (BMI) [Ratio] 20.3 kg/m2 Kia Sharma CNP Work Phone: [facility] Work Phone: 07-01-2021 17:32-0400 Body surface area Derived from formula 1.76 m2 Kia Sharma CNP Work Phone: [facility] Work Phone: 07-01-2021 17:32-0400 Body temperature 97.5 [degF] Kia Sharma CNP Work Phone: [facility] Work Phone: 07-01-2021 17:32-0400 Body weight 62.32 kg Kia Sharma CNP Work Phone: [facility] Work Phone: 07-01-2021 17:32-0400 Diastolic blood pressure 58 mm[Hg] Kia Sharma CNP Work Phone: [facility] Work Phone: 07-01-2021 17:32-0400 Heart rate 775 /min Kia Sharma CNP Work Phone: [facility] Work Phone: 07-01-2021 17:32-0400 Heart Rate Rhythm 1 1 Kia Sharma CNP Work Phone: [facility] Work Phone: 07-01-2021 17:32-0400 SaO2% (BldA) [Mass fraction] 97 % Kia Sharma CNP Work Phone: [facility] Work Phone: 07-01-2021 17:32-0400 Systolic blood pressure 116 mm[Hg] Kia Sharma CNP Work Phone: [facility] Work Phone: 05-28-2021 18:41-0400 Body height 175.26 cm Kia Sharma CNP Work Phone: [facility] Work Phone: 05-28-2021 18:41-0400 Body mass index (BMI) [Ratio] 19.6 kg/m2 Kia Sharma CNP Work Phone: [facility] Work Phone: 05-28-2021 18:41-0400 Body surface area Derived from formula 1.74 m2 Kia Sharma CNP Work Phone: [facility] Work Phone: 05-28-2021 18:41-0400 Body temperature 97.7 [degF] Kia Sharma CNP Work Phone: [facility] Work Phone: 05-28-2021 18:41-0400 Body weight 60.33 kg Kia Sharma CNP Work Phone: [facility] Work Phone: 05-28-2021 18:41-0400 Diastolic blood pressure 76 mm[Hg] Kia Sharma CNP Work Phone: [facility] Work Phone: 05-28-2021 18:41-0400 Heart rate 83 /min Kia Sharma CNP Work Phone: [facility] Work Phone: 05-28-2021 18:41-0400 SaO2% (BldA) [Mass fraction] 98 % Kia Sharma CNP Work Phone: [facility] Work Phone: 05-28-2021 18:41-0400 Systolic blood pressure 122 mm[Hg] Kia Sharma CNP Work Phone: [facility] Work Phone: 10-14-2020 13:00-0400 Diastolic blood pressure 68 mm[Hg] Anthony Galloway MD Work Phone: [employer] Work Phone: 10-14-2020 13:00-0400 Heart rate 60 /min Anthony Galloway MD Work Phone: [employer] Work Phone: 10-14-2020 13:00-0400 Respiratory rate 16 /min Anthony Galloway MD Work Phone: [employer] Work Phone: 10-14-2020 13:00-0400 SaO2% (BldA) [Mass fraction] 99 % Anthony Galloway MD Work Phone: [facility] Work Phone: 10-14-2020 13:00-0400 Systolic blood pressure 114 mm[Hg] Anthony Galloway MD Work Phone: [employer] Work Phone: 10-14-2020 12:25-0400 Body temperature 97.39 [degF] Anthony Galloway MD Work Phone: [employer] Work Phone: 10-14-2020 09:35-0400 Body height 172.7 cm Anthony Galloway MD Work Phone: [employer] Work Phone: 10-14-2020 09:35-0400 Body mass index (BMI) [Ratio] 20.13 kg/m2 Anthony Galloway MD Work Phone: [employer] Work Phone: 10-14-2020 09:35-0400 Body weight 60.06 kg Anthony Galloway MD Work Phone: [facility] Work Phone: 05-27-2020 22:19-0400 Body Temperature 97.5 [degF] [employer] Work Phone: 05-27-2020 22:19-0400 BP Diastolic 79 mm[Hg] [employer] Work Phone: 05-27-2020 22:19-0400 BP Systolic 133 mm[Hg] [employer] Work Phone: 05-27-2020 22:19-0400 Pulse (Heart Rate) 94 /min [employer] Work Phone: 05-27-2020 22:19-0400 Pulse Oximetry 98 % Sidradha Norris [facility] Work Phone: 05-27-2020 22:19-0400 Respiratory Rate 16 /min Sid [facility] Work Phone: 04-03-2020 16:21-0500 BMI (Body Mass Index) 21.9 kg/m2 [facility] Work Phone: 04-03-2020 16:21-0500 Body Temperature 97.9 [degF] [facility] Work Phone: 04-03-2020 16:21-0500 Body weight 67.13 kg [facility] Work Phone: 04-03-2020 16:21-0500 BP Diastolic 82 mm[Hg] [facility] Work Phone: 04-03-2020 16:21-0500 BP Systolic 138 mm[Hg] [facility] Work Phone: 04-03-2020 16:21-0500 BSA (Body Surface Area) 1.82 m2 [facility] Work Phone: 04-03-2020 16:21-0500 Height 175.26 cm [facility] Work Phone: 04-03-2020 16:21-0500 Pulse (Heart Rate) 77 /min [facility] Work Phone: 04-03-2020 16:21-0500 Pulse Oximetry 96 % [facility] Work Phone: 04-03-2020 16:21-0500 Respiratory Rate 18 /min [facility] Work Phone: 04-03-2020 16:21-0500 SaO2% (BldA) [Mass fraction] 96 % Kia Sharma [facility] Work Phone: [facility] Work Phone: 03-20-2020 11:57-0500 BMI (Body Mass Index) 21.4 kg/m2 Kia Sharma [facility] Work Phone: 03-20-2020 11:57-0500 Body weight 65.77 kg Kiajace Sharma [facility] Work Phone: 03-20-2020 11:57-0500 BSA (Body Surface Area) 1.8 m2 Kiajace Sharma [facility] Work Phone: 03-20-2020 11:57-0500 Height 175.26 cm [facility] Work Phone: 02-25-2020 21:28-0500 BMI (Body Mass Index) 23.22 kg/m2 [place] 02-25-2020 21:28-0500 Body Temperature 98.2 [degF] [place] 02-25-2020 21:28-0500 Body weight 70.31 kg [place] 02-25-2020 21:28-0500 BP Diastolic 76 mm[Hg] [place] 02-25-2020 21:28-0500 BP Systolic 144 mm[Hg] [place] 02-25-2020 21:28-0500 Height 174 cm [place] 02-25-2020 21:28-0500 Pulse (Heart Rate) 73 /min [place] 02-25-2020 21:28-0500 Pulse Oximetry 100 % [place] 02-25-2020 21:28-0500 Respiratory Rate 16 /min [place] 02-06-2020 17:44-0500 Respiratory Rate 16 /min [facility] [place] 02-06-2020 17:19-0500 BMI (Body Mass Index) 23.57 kg/m2 [facility] [place] 02-06-2020 17:19-0500 Body Temperature 99.61 [degF] [facility] [place] 02-06-2020 17:19-0500 Body weight 70.31 kg [facility], [place] 02-06-2020 17:19-0500 BP Diastolic 60 mm[Hg] [facility] [place] 02-06-2020 17:19-0500 BP Systolic 120 mm[Hg] [facility] [place] 02-06-2020 17:19-0500 Height 172.7 cm [facility], [place] 02-06-2020 17:19-0500 Pulse (Heart Rate) 81 /min [facility], [place] 02-06-2020 17:19-0500 Pulse Oximetry 98 % [facility], [place] 12-24-2019 12:27-0400 BMI (Body Mass Index) 23.42 kg/m2 [facility] [place] 12-24-2019 12:27-0400 Body Temperature 97.9 [degF] [facility] [place] 12-24-2019 12:27-0400 Body weight 69.85 kg [facility], [place] 12-24-2019 12:27-0400 BP Diastolic 64 mm[Hg] [facility] [place] 12-24-2019 12:27-0400 BP Systolic 122 mm[Hg] [facility] [place] 12-24-2019 12:27-0400 Pulse (Heart Rate) 68 /min [facility] [place] 12-24-2019 12:27-0400 Pulse Oximetry 99 % [facility] [place] 12-24-2019 12:27-0400 Respiratory Rate 16 /min [facility], [place] NEGATED: Highlighted row BMI (Body Mass Index) [facility] NEGATED: Highlighted row BMI (Body Mass Index) [facility] NEGATED: Highlighted row BMI (Body Mass Index) [facility] NEGATED: Highlighted row Body Temperature [facility] NEGATED: Highlighted row Body Temperature [facility] NEGATED: Highlighted row Body Temperature [facility] NEGATED: Highlighted row Body weight [facility] NEGATED: Highlighted row Body weight [facility] NEGATED: Highlighted row Body weight [facility] NEGATED: Highlighted row BP Diastolic [facility] NEGATED: Highlighted row BP Diastolic [facility] NEGATED: Highlighted row BP Diastolic [facility] NEGATED: Highlighted row BP Systolic [facility] NEGATED: Highlighted row BP Systolic [facility] NEGATED: Highlighted row BP Systolic [facility] NEGATED: Highlighted row Height [facility] NEGATED: Highlighted row Height [facility] NEGATED: Highlighted row Height [facility] NEGATED: Highlighted row Pulse (Heart Rate) [facility] NEGATED: Highlighted row Pulse (Heart Rate) [facility] NEGATED: Highlighted row Pulse (Heart Rate) [facility] NEGATED: Highlighted row Pulse Oximetry [facility] NEGATED: Highlighted row Pulse Oximetry [facility] NEGATED: Highlighted row Pulse Oximetry [facility] NEGATED: Highlighted row Respiratory Rate [facility] NEGATED: Highlighted row Respiratory Rate [facility] NEGATED: Highlighted row Respiratory Rate [facility] Encounters Encounter Date Encounter Type Care Provider Facility Start: 10-23-2023 End: 10-23-2023 ambulatory YURIY DALJIT Not Available Start: 10-16-2023 End: 10-16-2023 ambulatory GENESIS OJEDA Not Available Start: 10-02-2023 End: 10-02-2023 ambulatory YURIY DALJIT Not Available Start: 09-29-2023 End: 09-29-2023 [facility] Start: 09-18-2023 End: 09-18-2023 ambulatory GENESIS RUSTY Not Available Start: 09-12-2023 End: 09-12-2023 ambulatory BRENDA [facility] Start: 09-12-2023 End: 09-12-2023 Subsequent hospital visit by physician Brenda Gerald CardosoHailee [employer]ARY [employer] OPERATOR - CNM Work Phone: [facility] Start: 09-04-2023 End: 09-04-2023 ambulatory VIPIN MICHAEL [facility] Start: 09-04-2023 End: 09-04-2023 ambulatory UYRIY DALJIT Not Available Start: 09-02-2023 End: 09-03-2023 [facility]: 08-24-2023 End: 08-24-2023 [facility]ulatory [facility] Start: 08-24-2023 End: 08-24-2023 Subsequent hospital visit by physician Jagdeep [facility] Work Phone: [facility] Start: 08-03-2023 End: 08-03-2023 ambulatory GNEESIS RUSTY Not Available Start: 07-06-2023 End: 07-06-2023 ambulatory YURIY DALJIT Not Available Start: 06-30-2023 End: 06-30-2023 Emergency department patient visit KIAJace SHARMA [facility] Start: 06-20-2023 End: 06-20-2023 ambulatory YURIY DALJIT Not Available Start: 05-23-2023 End: 05-23-2023 ambulatory YURIY DALJIT Not Available Start: 05-18-2023 End: 05-18-2023 Emergency department patient visit KIAJace SHARMA [facility] Start: 05-01-2023 End: 05-01-2023 ambulatory YURIY GREENE [facility] Start: 05-01-2023 End: 05-01-2023 Subsequent hospital visit by physician Kia Sharma [employer]ARY [employer] OPERATOR - DIRECTOR OF PLACEMENT Work Phone: [facility] Start: 04-27-2023 End: 04-27-2023 ambulatory YURIY DALJIT Not Available Start: 08-03-2022 End: 08-03-2022 Emergency department patient visit Samara Paulino MD Work Phone: [facility] ED Comment on above: Flank pain (Primary Dx); Urinary tract infection without hematuria, site unspecified Start: 07-27-2022 End: 07-27-2022 FQHC visit, estab pt Mariposa Duncan DIRECTOR OF PLACEMENT Work Phone: [facility] Work Phone: Start: 06-03-2022 End: 06-05-2022 Subsequent hospital visit by physician Kulwinder Das Radiologist [facility] Ultrasound Comment on above: Abscess of female br east Start: 04-24-2022 End: 04-24-2022 Emergency department patient visit Kia Sharma APRN - DIRECTOR OF PLACEMENT Work Phone: [facility] ED Comment on above: Nausea vomiting and diarrhea (Primary Dx) Start: 03-15-2022 End: 03-15-[address] YURIY SABILLON Facility: Start: 03-04-2022 End: 03-04-2022 Subsequent hospital visit by physician Geoff Miller MD Work Phone: [facility] OR Comment on above: Abscess of right lynette ast (Primary Dx) Start: 03-01-2022 End: 03-01-2022 Emergency department patient visit Nicholas Denton MD Work Phone: [facility] ED Comment on above: Cellulitis of right breast (Primary Dx) Start: 10-26-2021 End: 10-29-2021 Evaluation and management of inpatient PHYSICIAN NO FAMILY Facility:[facility] Start: 10-26-2021 End: 10-29-2021 Evaluation and management of inpatient PHYSICIAN NO FAMILY [facility] [place] [address] Start: 08-17-2021 End: 08-17-2021 FQHC visit, estab pt Halima Argueta [employer] Work Phone: [facility] Work Phone: Start: 08-17-2021 End: 08-17-2021 FQHC visit, estab pt Kia Sharma DIRECTOR OF PLACEMENT Work Phone: [facility] Work Phone: Start: 07-15-2021 End: 07-15-2021 FQHC visit, estab pt Halimaashok Argueta [place] Work Phone: [facility] Work Phone: Start: 07-15-2021 End: 07-15-2021 FQHC visit, estab pt Kia Edith DIRECTOR OF PLACEMENT Work Phone: [facility] Work Phone: Start: 07-01-2021 End: 07-01-2021 FQ visit, estab pt Kia Sharma DIRECTOR OF PLACEMENT Work Phone: [facility] Work Phone: Start: 05-29-2021 End: 05-29-2021 ambulatory KIA SHARMA [facility] Start: 05-28-2021 End: 05-28-2021 Subsequent hospital visit by physician AGNES CHEN [facility] Start: 05-28-2021 End: 05-28-2021 FQHC visit, estab pt Kia Sharma DIRECTOR OF PLACEMENT Work Phone: [facility] Work Phone: Start: 03-25-2021 End: 03-25-2021 Subsequent hospital visit by physician [facility] Comment on above: Vaginal discharge Start: 03-10-2021 End: 03-10-2021 Subsequent hospital visit by physician [facility] Comment on above: Irregular menstrual cycle Start: 10-14-2020 End: 10-14-2020 Subsequent hospital visit by physician Anthony Galloway MD Work Phone: 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 PRE ADMIT Comment on above: Preop testing Start: 09-25-2020 End: 09-25-2020 Patient encounter status [facility] Schedule [facility] PRE ADMIT Start: 09-25-2020 End: 09-25-2020 Subsequent hospital visit by physician [facility] Covid19 Pat Screening Schedule [facility] PRE ADMIT Comment on above: Preop testing (Prima ry Dx) Start: 08-19-2020 End: 08-19-2020 Subsequent hospital visit by physician 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 Start: 05-27-2020 End: 05-27-2020 Emergency department patient visit Sid Norris Work Phone: [facility] ED Comment on above: Dental infection (Pr imary Dx) Start: 04-03-2020 End: 04-03-2020 Established patient Kia Sharma Work Phone: [facility] Work Phone: Start: 04-03-2020 End: 04-03-2020 General Kia Sharma [facility] Work Phone: [facility] Work Phone: Start: 04-03-2020 End: 04-03-2020 General Halima Argueta [employer] [place] Work Phone: [facility] Work Phone: Start: 04-02-2020 End: 04-02-2020 Subsequent [facility] Comment on above: Women's annual routi ne gynecological examination Start: 03-20-2020 End: 03-20-2020 General Halima Argueta Work Phone: [facility] Work Phone: Start: 03-20-2020 End: 03-20-2020 Telemedicine consultation with patient Kia Sharma Work Phone: [facility] Work Phone: Start: 02-25-2020 End: 02-25-2020 Emergency department patient visit Sid Norris Work Phone: [facility] ED Comment on above: Bacterial vaginosis (Primary Dx); Vaginal bleeding Start: 02-06-2020 End: 02-06-2020 Emergency department patient visit [facility] ED Comment on above: Dental abscess (Prim rachele Dx); Dental caries Start: 12-24-2019 End: 12-24-2019 Emergency department patient visit [facility] ED Comment on above: Dental infection (Pr imary Dx) Start: 02-13-2018 End: 02-15-2018 Evaluation and management of inpatient [facility] Start: 02-20-2016 End: 02-23-2016 Evaluation and management of inpatient [facility] Start: 05-12-2015 End: 05-15-2015 Evaluation and management of inpatient [facility] Start: 02-11-2014 End: 02-14-2014 Evaluation and management of inpatient [facility] Start: 04-28-2007 End: 05-28-[address] [facility] Start: 02-27-2007 End: 03-29-[address] [facility] Start: 01-27-2007 End: 02-26-[address] [facility] Start: 11-27-2006 End: 12-27-2006 [facility] Start: 09-27-2006 End: 10-27-2006 Discharged Recurring [facility] Start: 08-27-2006 End: 09-26-2006 Discharged Recurring [facility] Start: 07-28-2006 End: 09-26-2006 Discharged Recurring [facility] Start: 06-27-2006 End: 07-27-[address] [facility] Start: 05-28-2006 End: 06-26-2006 [facility] Start: 04-27-2006 End: 05-27-2006 [facility] Start: 03-30-2006 End: 04-26-[address] [facility] Start: 02-27-2006 End: 03-29-[address] [facility] Start: 01-27-2006 End: 02-26-[address] [facility] Start: 12-28-2005 End: 01-26-[address] [facility] Start: 11-27-2005 End: 12-27-[address] [facility] Start: 10-28-2005 End: 11-26-[address] [facility] Start: 09-27-2005 End: 11-26-[address] [facility] Start: 09-27-2005 End: 10-27-[address] [facility] Start: 08-27-2005 End: 09-26-2005 [facility] Start: 06-27-2005 End: 07-27-[address] [facility] Start: 04-27-2005 End: 05-27-2005 [facility] Start: 03-30-2005 End: 04-26-2005 [facility] Start: 02-27-2005 End: 03-29-2005 [facility] Start: 01-27-2005 End: 02-26-2005 [facility] Start: 12-28-2004 Registered Recurring [facility] Start: 11-27-2004 End: 12-27-[address] [facility] Start: 11-27-2004 End: 12-27-[address] [facility] Start: 11-27-2004 Registered Recurring [facility] Start: 10-28-2004 End: 11-26-[address] [facility] Start: 10-28-2004 End: 11-26-[address] [facility] Start: 09-27-2004 End: 10-27-[address] [facility] Start: 09-27-2004 End: 10-27-2004 [facility] Start: 09-02-2004 End: 09-26-2004 [facility] Start: 09-02-2004 End: 09-26-2004 [facility] Start: 05-17-2000 End: 05-27-2000 Discharged Recurring [facility] Procedures Date Procedure Procedure Detail Performing Clinician Start: 09-12-2023 Urnls dip stick/tabl et rgnt auto w/o microscopy Brenda Stephen ROTARY DUMP OPERATOR - CNM Work Phone: Start: 09-02-2023 H/O: section History of delivery affecting Brenda Stephen ROTARY DUMP OPERATOR - CNM Work Phone: Start: 08-24-2023 Urinalysis [...] blood pressure <130 mm hg Mariposa Duncan DIRECTOR OF PLACEMENT Work Phone: Start: 07-27-2022 Urine test visual color cmprsn meths Mariposa Duncan DIRECTOR OF PLACEMENT Work Phone: Start: 06-03-2022 Diagnostic mammograp hy [...] test visual color cmprsn meths Peterson Benito ROTARY DUMP OPERATOR - DIRECTOR OF PLACEMENT Work Phone: Start: 08-17-2021 Most recent diastoli c blood pressure < 80 mm hg Kia Sharma DIRECTOR OF PLACEMENT Work Phone: Start: 08-17-2021 Most recent systolic blood pressure <130 mm hg Kia Sharma DIRECTOR OF PLACEMENT Work Phone: Start: 08-17-2021 Psychotherapy w/hussein ent 30 minutes Halimachuck [facility] LPCC-S Work Phone: Start: 07-15-2021 Most recent diastoli c blood pressure < 80 mm hg Kia Sharma DIRECTOR OF PLACEMENT Work Phone: Start: 07-15-2021 Most recent systolic blood pressure <130 mm hg Kia Sharma DIRECTOR OF PLACEMENT Work Phone: Start: 07-15-2021 Psychotherapy w/hussein ent 30 minutes Halima Argueta LP[facility]S Work Phone: Start: 07-01-2021 Most recent diastoli c blood pressure < 80 mm hg Kia Sharma [facility] Work Phone: Start: 07-01-2021 Most recent systolic blood pressure <130 mm hg Kia Sharma DIRECTOR OF PLACEMENT Work Phone: Start: 05-28-2021 Antibody hiv-1&hiv-2 single result Kia Sharma DIRECTOR OF PLACEMENT Work Phone: Start: 05-28-2021 Most recent diastoli c blood pressure < 80 mm hg Kia Sharma [facility] Work Phone: Start: 05-28-2021 Most recent systolic blood pressure <130 mm hg Kia Sharma [facility] Work Phone: Start: 05-28-2021 Pt-focused hlth risk assmt score doc stnd instrm Kia Sharma [facility] Work Phone: Start: 05-28-2021 Viral screening Visit For: Scr eening Exam For Herpes Kia Sharma [facility] Work Phone: Start: 03-10-2021 End: 03-10-2021 Gonadotropin follicle stimulating hormone Anthony Galloway MD Work Phone: Start: 10-14-2020 Urine test visual color cmprsn meths Anthony Galloway MD Work Phone: Start: 10-09-2020 COVID-19 Sabas siddiqi MD Work Phone: Start: 04-02-2020 Microscopic observat ion [Identifier] in Cervix by Cyto stain Start: 03-20-2020 delivery only Kia Sharma Start: 03-20-2020 section Kia Sharma [facility] Work Phone: Start: 03-20-2020 Psychotherapy [...] LOO Start: 02-13-2018 DIET GENERAL FEI AMIN COFFEE SOMMELIER Start: 02-13-2018 FULL CODE FEI AMIN COFFEE SOMMELIER Start: 02-13-2018 URINE DRUG SCREEN JUSTINE LOO Start: 02-13-2018 Urine test visual color cmprsn meths FEI AMINPTA Start: 02-13-2018 VITAL SIGNS FEI AMIN COFFEE SOMMELIER Start: 02-13-2018 PATIENT STATUS (DIRECT) FEI LOO SARS Antigen (LFIA) PHYSICIA N NO FAMILY Plan of Treatment Date Care Activity Detail Author Start: 2053 Respiratory Syncytia l Virus (RSV) or age 60 yrs+ (1 - 1-dose 60+ series) Respiratory Syncytial Virus (RSV) or age 60 yrs+ (1 - 1-dose 60+ series) [facility] Start: 03-21-2027 DTaP/Tdap/Td vaccine (2 - Td or Tdap) DTaP/Tdap/Td vaccine (2 - Td or Tdap) [facility] Start: 03-21-2027 DTaP/Tdap/Td vaccine (2 - Td) DTaP/Tdap/Td vaccine (2 - Td) [place] Start: 04-02-2025 Screening for malign ant neoplasm of cervix [facility] Start: 10-29-2023 Respiratory Syncytia l Virus (RSV) or age 60 yrs+ (1 - Risk 1-dose series) Respiratory Syncytial Virus (RSV) or age 60 yrs+ (1 - Risk 1-dose series) [facility] Start: 09-28-2023 Influenza vaccination [facility] Start: 08-25-2023 Tdap Vaccine during Tdap Vaccine during [facility] Start: 04-02-2023 Screening for malign ant neoplasm of cervix [facility] Start: 09-27-2022 Influenza vaccination [facility] Start: 08-25-2022 FQHC visit, estab pt Medical E stablished Patient [facility] Work Phone: Start: 07-27-2022 End: 07-27-2022 Patient education based on identified need [facility] Start: 07-27-2022 CBC W Auto Different ial panel - Blood [facility] Start: 04-25-2022 End: 04-25-2022 Patient encounter procedure 04/25/2022 Appointment Radiology Radiologist, [facility]trasound Start: 03-04-2022 End: 03-04-2022 Incision & drainage abscess simple/single BREAST INCISION AND DRAINAGE Abscess of right breast 03/04/2022 12:36 PM [facility] Start: 10-29-2021 [facility] Work Phone: Start: 10-28-2021 Influenza vaccination Flu vacc ine (Season Ended) [facility] Start: 10-26-2021 Referral to Stakeholder Manager [facility] Work Phone: Start: 10-26-2021 Hospital admission [facility] Work Phone: Start: 09-27-2021 Influenza vaccination Flu vaccine (# 1) [facility] Start: 09-16-2021 FQHC visit, estab pt Medical E stablished Patient [facility] Work Phone: Start: 08-17-2021 FQHC visit, estab pt Medical E stablished Patient [facility] Work Phone: Start: 08-17-2021 End: 08-17-2021 Patient education based on identified need [facility] Start: 07-15-2021 FQHC visit, estab pt Medical E stablished Patient [facility] Work Phone: Start: 07-15-2021 End: 07-15-2021 Patient education based on identified need [facility] Start: 07-01-2021 End: 07-01-2021 Patient education based on identified need [facility] Start: 05-28-2021 End: 05-28-2021 Patient education based on identified need [facility] Start: 04-14-2021 End: 04-14-2021 Patient encounter procedure 04/14/2021 Office Visit Obstetrics and Gynecology Anthony Galloway MD [address] [place], [place] [id number] [facility] OBSTETRICS & GYNECOLOGY [facility] Start: 03-05-2021 FQHC visit, estab pt Medical E stablished Patient [facility] Work Phone: Start: 10-28-2020 Influenza vaccination [facility] Start: 10-14-2020 End: 10-14-2020 Admission to same day surgery center 10/14/2020 Surgery IP Unit Anthony Galloway MD [address] [facility], [place] [id number] DILATATION AND CURETTAGE LEEP-ENDOCERVICAL CURETTAGE [facility] Comment on above: DILATATION AND CURET TAGE LEEP-ENDOCERVICAL CURETTAGE Start: 10-14-2020 Subsequent hospital visit by physician 10/14/2020 Hospital Encounter IP Unit Anthony Galloway MD [address] [place] [address] [phone] [facility] Start: 10-09-2020 End: 10-09-2020 Patient encounter procedure 10/09/2020 Appointment Pre-Admission Testing [facility] PRE ADMIT Start: 09-25-2020 End: 09-25-2021 COVID-19 COVID-19 Lab Routine Preop testing Expected: 09/25/2020, Expires: 09/25/2021 [facility] Work Phone: Comment on above: Expected: 09/25/2020 , Expires: 09/25/2021 Start: 04-23-2020 End: 04-23-2020 Procedure visit 04/23/2020 Procedure visit Obstetrics and Gynecology Anthony Galloway MD [address] [place] [address] [phone] [facility] OBSTETRICS & GYNECOLOGY Start: 04-03-2020 End: 04-03-2020 Patient education based on identified need [facility] Start: 04-03-2020 Medical Establ ished Patient [facility] Work Phone: Start: 03-20-2020 End: 03-20-2020 Patient education based on identified need [facility] Start: 10-29-2019 Influenza vaccination Flu vaccine (# 1) [place], [place] Start: 2014 Screening for malign ant neoplasm of cervix Cervical cancer screen [place], [place] Start: 2011 Hepatitis C screening Hepatitis C sc reen [facility] Start: 2009 COVID-19 Vaccine (1) COVID-19 Vaccin e (1) [facility] Work Phone: Start: 2008 HIV screening HIV screen [facility] Start: 2005 COVID-19 Vaccine (1) COVID-19 Vaccin e (1) [facility] Work Phone: Start: 2005 Depression Monitoring Depression Mon [facility] Start: 2005 Depression Screen Depression Screen [facility] Start: 2004 HPV vaccine (1 - 2-d ose series) HPV vaccine (1 - 2-dose series) [place], [place] Start: 1999 Pneumococcal 0-64 ye ars Vaccine (1 - PCV) Pneumococcal 0-64 years Vaccine (1 - PCV) [facility] Start: 1999 Pneumococcal 0-64 ye ars Vaccine (1 of 1 - PPSV23) Pneumococcal 0-64 years Vaccine (1 of 1 - PPSV23) [place] Start: 1999 Pneumococcal 0-64 ye ars Vaccine (1 of 2 - PCV) Pneumococcal 0-64 years Vaccine (1 of 2 - PCV) [facility] Start: 1999 Pneumococcal 0-64 ye ars Vaccine (1 of 2 - PPSV23) Pneumococcal 0-64 years Vaccine (1 of 2 - PPSV23) [facility] Start: 1998 COVID-19 Vaccine (1) COVID-19 Vaccin e (1) [facility] Start: 1994 Varicella vaccine (1 of 2 - 2-dose childhood series) Varicella vaccine (1 of 2 - 2-dose childhood series) [facility] Start: 1993 COVID-19 Vaccine (#1) COVID-19 Vacci ne (#1) [facility] Start: 1993 Hepatitis B vaccine (1 of 3 - 3-dose series) Hepatitis B vaccine (1 of 3 - 3-dose series) [facility] Start: 1993 Hepatitis C screening Hepatitis C sc reen [facility] End: 08-24-2023 Bacteria identified in Urine by Culture Urine culture Microbiology Routine One Time for 1 Occurrences starting 08/24/2023 until 08/24/2023 [facility] Comment on above: One Time for 1 Occur rences starting 08/24/2023 until 08/24/2023 End: 09-12-2023 Bacteria identified in Urine by Culture Urine culture Microbiology Routine One Time for 1 Occurrences starting 09/12/2023 until 09/12/2023 [facility] Comment on above: One Time for 1 Occur rences starting 09/12/2023 until 09/12/2023 End: 02-25-2020 C.trachomatis N.gonorrhoeae DNA C.trachomatis N.gonorrhoeae DNA Microbiology STAT One Time for 1 Occurrences starting 02/25/2020 until 02/25/[address] [facility] [place] Comment on above: One Time for 1 Occur rences starting 02/25/2020 until 02/25/2020 C.trachomatis N.gonorrhoeae DNA C.trachomatis N.gonorrhoeae DNA Microbiology STAT 02/25/2020 10:29 PM EST [place], [place] Culture, Anaerobic a nd Aerobic [facility] Work Phone: Comment on above: Release Upon Orderin g for 1 Occurrences starting 03/04/2022 End: 03-25-2021 Culture, Genital [facility] Work Phone: Comment on above: 1 Occurrences starti ng 03/25/2021 until 03/25/2021 End: 08-03-2022 Culture, Urine [employer] Phone: Comment on above: Once for 1 Occurrenc es starting 08/03/2022 until 08/03/2022 End: 05-01-2023 Culture, Urine [employer] Phone: Comment on above: Once for 1 Occurrenc es starting 05/01/2023 until 05/01/2023 End: 05-29-2021 Culture, Virus, Non Respiratory Culture, Virus, Non Respiratory Microbiology Routine Once for 1 Occurrences starting 05/29/2021 until 05/29/2021 [employer] Phone: Comment on above: Once for 1 Occurrenc es starting 05/29/2021 until 05/29/2021 Culture, Virus, Non Respiratory Culture, Virus, Non Respiratory Microbiology Routine 05/28/2021 11:57 PM EDT [employer] Phone: End: 04-02-2020 Cytopathology procedure, preparation of smear, genital source PAP SMEAR Lab Routine Women's annual routine gynecological examination 1 Occurrences starting 04/02/2020 until 04/02/2020 [facility] Comment on above: 1 Occurrences starti ng 04/02/2020 until 04/02/2020 nonstress test nonst ress test OB Routine Daily until discontinued starting 08/25/2023 [employer] Phone: Comment on above: Daily until disconti nued starting 08/25/2023 nonstress test nonst ress test OB Routine Daily until discontinued starting 09/13/2023 [employer] Phone: Comment on above: Daily until disconti nued starting 09/13/2023 End: 05-01-2023 HIV Screen [employer] Comment on above: Once for 1 Occurrenc es starting 05/01/2023 until 05/01/2023 End: 03-04-2022 INITIATE PACU OXYGEN THERAPY PROTOCOL Initiate PACU Oxygen Therapy Protocol Respiratory Care Routine Continuous until discontinued starting 03/04/2022 [employer] Phone: Comment on above: Continuous until dis continued starting 03/04/2022 Oxygen therapy [Mini mum Data Set] Initiate Oxygen Therapy Protocol Respiratory Care Routine Daily until discontinued starting 10/14/2020 [employer] Phone: Comment on above: Daily until disconti nued starting 10/14/2020 Oxygen therapy [Mini mum Data Set] Initiate Oxygen Therapy Protocol Respiratory Care Routine As Needed until discontinued starting 03/04/2022 [employer] Work Phone: Comment on above: As Needed until disc ontinued starting 03/04/2022 Patient Education Schizophrenia (DC) [facility] DC Instructions [facility] Work Phone: Patient referral [facility] Work Phone: Phase I & II - meter ed glucose Phase I & II - metered glucose Point of Care Testing Routine As Needed until discontinued starting 10/14/2020 [employer] Phone: Comment on above: As Needed until disc ontinued starting 10/14/2020 End: 08-19-2020 Surgical Pathology Surgical Pathology Lab Routine HGSIL (high grade squamous intraepithelial lesion) on Pap smear of cervix 1 Occurrences starting 08/19/2020 until 08/19/2020 [employer] Phone: Comment on above: 1 Occurrences starti ng 08/19/2020 until 08/19/2020 Surgical Pathology Surgical Path ology Lab Routine Release Upon Ordering for 1 Occurrences starting 10/14/2020 [employer] Phone: Comment on above: Release Upon Orderin g for 1 Occurrences starting 10/14/2020 End: 08-24-2023 SVE SVE Point of Care Testing Routine One Time for 1 Occurrences starting 08/24/2023 until 08/24/2023 [employer] Comment on above: One Time for 1 Occur rences starting 08/24/2023 until 08/24/2023 End: 09-12-2023 SVE SVE Point of Care Testing Routine One Time for 1 Occurrences starting 09/12/2023 until 09/12/2023 [employer] Comment on above: One Time for 1 Occur rences starting 09/12/2023 until 09/12/2023 End: 05-01-2023 Calixto levi Ab [employer] Comment on above: Once for 1 Occurrenc es starting 05/01/2023 until 05/01/2023 Immunizations Immunization Date Immunization Notes Care Provider Ralf kim 02-26-2019 Influenza, injectabl e, Madin Yuki Canine Kidney, preservative free, quadrivalent PHYSICIAN NO [facility] Payers Date Payer Category Payer Private Health Insurance [id number] 2021 Self-pay 1993 Unknown [id number] 1993 Unknown [id number] 1993 Unknown [id number] 1993 Unknown [id number] 2.16.8 40.1.738975.3.579.2.173 1993 Unknown [id number] 2.16.8 40.1.606780.3.579.2.173 1993 Unknown [id number] 2.16.8 40.1.346872.3.579.2.173 1993 Unknown [id number] 2.16.8 40.1.544940.3.579.2.173 1993 Unknown [id number] 2.16.8 40.1.845573.3.579.2.173 1993 Unknown [id number] 2.16.8 40.1.549286.3.579.2.173 1993 Unknown [id number] 2.16.8 40.1.749052.3.579.2.173 1993 Unknown [id number] 2.16.8 40.1.951216.3.579.2.173 1993 Unknown [id number] 2.16.84 0.1.145165.3.579.2.9 1993 Unknown [id number] 2.16.84 0.1.566992.3.579.2.9 1993 Unknown [id number] 2.16.84 0.1.215761.3.579.2.9 1993 Unknown [id number] 2.16.84 0.1.938856.3.579.2.1258 1993 Unknown [id number] 2.16.84 0.1.334995.3.579.2.9 1993 Unknown [id number] 2.16.84 0.1.522673.3.579.2.9 1993 Unknown [id number] 2.16.84 0.1.866436.3.579.2.9 1993 Unknown [id number] 2.16.84 0.1.178395.3.579.2.9 1993 Unknown [id number] 2.16.84 0.1.890031.3.579.2.9 1993 Unknown [id number] 2.16.84 0.1.413201.3.579.2.1259 1961 Medicaid [id number] Unknown [id number] 2.16.8 40.1.127436.3.579.2.531 Social History Date Type Detail Facility Start: 12-24-2019 End: 03-01-2022 Tobacco smoking status NHIS Current every day smoker [place], [place] History of tobacco use Cigarette Smoker [place] Start: 12-24-2019 End: 09-04-2023 Cigarettes smoked current (pack per day) - Reported [place] Start: 12-24-2019 End: 09-12-2023 Tobacco use and exposure Never used [place], [place] Start: 12-24-2019 End: 09-12-2023 Alcohol intake Current non-drinker of alcohol (finding) [place], [place] Start: 1995 Sex Assigned At Not on file [place] Start: 02-19-2022 End: 04-24-2022 Exposure to SARS-CoV-2 (event) Not sure [place] Assertion Exposure to poll ution (event) [facility] Assertion Tobacco user (finding) [facility] Tobacco smoking status Unknown i f ever smoked [facility] Work Phone: Assertion Social drinker (finding) [facility] [place] Sexually active (finding) [facility] Assertion [facility] Assertion Gender identity finding (finding) [facility] [place] Finding of sexua l orientation (finding) [facility] [place] Moderate cigaret te smoker (10-19 cigs/day) (finding) [facility] Assertion Heavy cigarette smoker (20-39 cigs/day) (finding) [facility] Start: 10-27-2021 Assertion Smoker (finding) [facility] Start: 1995 Sex Assigned At Female F [facility] Start: 03-01-2022 History SDOH Alcohol Frequency 1 [employer] Work Phone: Start: 03-01-2022 History SDOH Alcohol Std Drinks 0 [employer] Work Phone: Start: 03-04-2022 Alcohol Comment barely ever- sociall y [employer] Work Phone: Start: 03-01-2022 End: 09-04-2023 Alcohol Use Disorder Identification Test - Consumption [AUDIT-C] [employer] How often to you hav e a drink containing alcohol? Never [employer] Start: 09-12-2023 Tobacco smoking stat us ORIS Ex-smoker [employer] Start: 03-03-2023 [facility] [employer] NEGATED: Highlighted row Assertion [facility] NEGATED: Highlighted row Assertion Current drinker of alcohol (finding) [facility] NEGATED: Highlighted row Assertion Exposure to pollution (event) [facility] Work Phone: Goals Date Patient Goal Desired Activity /State Functional Status Date Assessment Result Facility 10-29-2021 Functional status Patient at Baseline [facility] Work Phone: Mental Status Date Assessment Result Facility 10-29-2021 Cognitive function Cognitive Sta tus Patient at Baseline [facility] Work Phone: Cognitive function Cognitive fun ctioning was normal Cognitive function finding (finding) [facility] Work Phone: Clinical Notes 03-20-2020 to [...] may be discharged. 28yo F arrives to [facility] with c/o vaginal discharge, [...] pt that she would be shipped to [place] as we do not deliver less than 35 weeks unless emergent. Pt placed on EFM at this time, urine specimen collected and sent to lab. documented in this encounter [facility] 09-12-2023 [place] [facility] Discharg Ana Quintero RN - 09/12/2023 6:51 PM EDT [facility] [address] [id number] [phone] ACTIVITY LIMITATIONS: ( )Up and about as [...] be sent through Care Everywhere.: Abdominal Pain (Filipino)documented in this encounter [facility] 08-24-2023 Hospital Discharg e instructions Iman Malhotra RN - 08/24/2023 8:40 PM EDT OUTPATIENT DISCHARGE Dr. Laverne Meyer [facility] Dr. Delano Kruse [facility] [address] [facility] [address] [facility] [id number] [place] [address] or [place] ACTIVITY LIMITATIONS: ( x )Up and about [...] AND DELIVERY . documented in this encounter [facility] 08-03-2022 Hospital Discharg e instructions [...] cannot be sent through Care Everywhere.Flank Pain (Filipino)UTI (Urinary Tract Infection): Female (Filipino)documented in this encounter [facility] [email or web address] Phone: 07-27-2022 Instructions Includes: Instructions for all patient encounters Discussed nutritional needs teach healthy choices including fruits and vegetables Last Documented On 3 6:56PM ; [facility] Patient education about a pr oper diet Last Documented On 3 6:56PM ; [facility] Patient education about an a sthma action plan Last Documented On 3 8:31AM ; [facility] Discussed concerns about exe rcise : promote physical activity ~ ~Will add symbicort ~ ~Follow up in one month Last Documented On 3 10:19AM ; [facility] Discussed current self-care methods/coping skills. ~Validated and normalized pt?s feelings while assisting patient process recent events. ~Discussed ongoing counseling. ~Discussed lifestyle changes to address chronic illness. ~Supported patient's personal health goals Last Documented On 2 4:59PM ; [facility] Discussed nutritional needs teach healthy choices including fruits and vegetables Last Documented On 2 4:50PM ; [facility] Patient education about a pr oper diet Last Documented On 2 4:50PM ; [facility] Discussed concerns about exe rcise : promote physical activity Last Documented On 2 4:50PM ; [facility] Discussed current self-care methods/coping skills. ~Validated and normalized pt?s feelings while assisting patient process recent events. ~Discussed ongoing counseling. ~Discussed lifestyle changes to address chronic illness. ~Supported patient's personal health goals Last Documented On 2 8:09PM ; [facility] Discussed nutritional needs teach healthy choices including fruits and vegetables Last Documented On 2 4:02PM ; [facility] Patient education about a pr oper diet Last Documented On 2 4:02PM ; [facility] Discussed concerns about exe rcise : promote physical activity Last Documented On 2 4:02PM ; [facility] Discussed nutritional needs teach healthy choices including fruits and vegetables Last Documented On 2 5:37PM ; [facility] Patient education about a pr oper diet Last Documented On 2 5:37PM ; [facility] Discussed concerns about exe rcise : promote physical activity Last Documented On 2 5:37PM ; [facility] Discussed nutritional needs teach healthy choices including fruits and vegetables Last Documented On 2 6:48PM ; [facility] Patient education about a pr oper diet Last Documented On 2 6:48PM ; [facility] Discussed concerns about exe rcise : promote physical activity Last Documented On 2 6:48PM ; [facility] Discussed nutritional needs teach healthy choices including fruits and vegetables Last Documented On 1 4:21PM ; [facility] Patient education about a pr oper diet Last Documented On 1 4:21PM ; [facility] Discussed concerns about exe rcise : promote physical activity Last Documented On 1 4:21PM ; [facility] Explored current self-care m ethods and encouraged patient to continue using them Last Documented On 1 7:54PM ; [facility] Discussed nutritional needs teach healthy choices including fruits and vegetables Last Documented On 1 11:53AM ; [facility] Patient education about a pr oper diet Last Documented On 1 11:53AM ; [facility] Discussed concerns about exe rcise : promote physical activity Last Documented On 1 11:53AM ; [facility] Work Phone: 1(792) 757-825605-31-2023 Evaluation note Includes: Assessments for all patient encounters Findings Encounter Date [Body mass index [BMI] 22.0- 22.9, adult] assessment of body mass index Medical Established Patient with Mariposa Duncan CNP 07/27/2022 Last Documented On 3 10:19AM ; [facility] Diabetes Risk Test Score was 0.0 score 07/27/2022 Medical Established Patient with Mariposa Perla DIRECTOR OF PLACEMENT 07/27/2022 Last Documented On 3 10:19AM ; [facility] Esophageal reflux without esophagitis Me dical Established Patient with Mariposa Perla DIRECTOR OF PLACEMENT 07/27/2022 Last Documented On 3 10:19AM ; [facility] Schizoaffective disorder Established Patient with Halima Argueta LPCC-S 08/17/2021 Last Documented On 2 9:40PM ; [facility] Asthma Medical Established Patient with Kia Edith DIRECTOR OF PLACEMENT 08/17/2021 Last Documented On 2 6:20PM ; [facility] Esophageal reflux without esophagitis Me dical Established Patient with Kia Edith DIRECTOR OF PLACEMENT 08/17/2021 Last Documented On 2 6:20PM ; [facility] Schizoaffective disorder Medical Establi shed Patient with Kia Edith [facility] 08/17/2021 Last Documented On 2 6:20PM ; [facility] Z68.20 - Body mass index [BM I] 20.0-20.9, adult Medical Established Patient with Kia Edith DIRECTOR OF PLACEMENT 08/17/2021 Last Documented On 2 6:20PM ; [facility] Schizoaffective disorder Established Patient with Halima Argueta LPCC-S 07/15/2021 Last Documented On 2 11:18AM ; [facility] Schizoaffective disorder Established Patient with Halima Argueta LPCC-S 07/15/2021 Last Documented On 2 11:18AM ; [facility] Bipolar disorder NOS Medical Established Patient with Kia Edith DIRECTOR OF PLACEMENT 07/15/2021 Last Documented On 2 9:30AM ; [facility] Esophageal reflux without esophagitis Me dical Established Patient with Kia Edith DIRECTOR OF PLACEMENT 07/15/2021 Last Documented On 2 9:30AM ; [facility] Herpes simplex type I Medical Established Patien t with Kia Edith [facility] 07/15/2021 Last Documented On 2 9:30AM ; [facility] Z68.1 - Body mass index [BMI ] 19.9 or less, adult Medical Established Patient with Kia Edith DIRECTOR OF PLACEMENT 07/15/2021 Last Documented On 2 9:30AM ; [facility] Asthma Medical Established Patient with Kia Edith DIRECTOR OF PLACEMENT 07/01/2021 Last Documented On 2 7:44PM ; [facility] Bipolar disorder NOS Medical Established Patient with Kia Edith DIRECTOR OF PLACEMENT 07/01/2021 Last Documented On 2 7:44PM ; [facility] Herpes simplex type I Medical Established Patien t with Kia Edith DIRECTOR OF PLACEMENT 07/01/2021 Last Documented On 2 7:44PM ; [facility] Schizoaffective disorder Medical Establi shed Patient with Kia Edith DIRECTOR OF PLACEMENT 07/01/2021 Last Documented On 2 7:44PM ; [facility] Z68.20 - Body mass index [BM I] 20.0-20.9, adult Medical Established Patient with Kia Edith DIRECTOR OF PLACEMENT 07/01/2021 Last Documented On 2 7:44PM ; [facility] Diabetes Risk Test Score was one score 05/28/2021 Medical Established Patient with Kia Edith DIRECTOR OF PLACEMENT 05/28/2021 Last Documented On 2 8:39AM ; [facility] Herpes simplex type I Medical Established Patien t with Kia Edith DIRECTOR OF PLACEMENT 05/28/2021 Last Documented On 2 8:39AM ; [facility] No cough Medical Established Patient with Kia Edith DIRECTOR OF PLACEMENT 05/28/2021 Last Documented On 2 8:39AM ; [facility] Visit for: screening for hum an immunodeficiency virus Medical Established Patient with Kia Edith DIRECTOR OF PLACEMENT 05/28/2021 Last Documented On 2 8:39AM ; [facility] Z11.59 - Encounter for nettie kauffman for other viral diseases Medical Established Patient with Kia Edith DIRECTOR OF PLACEMENT 05/28/2021 Last Documented On 2 8:39AM ; [facility] Z68.1 - Body mass index [BMI ] 19.9 or less, adult Medical Established Patient with Kia Edith DIRECTOR OF PLACEMENT 05/28/2021 Last Documented On 2 8:39AM ; [facility] Asthma Medical Established Patient with Kia Sharma DIRECTOR OF PLACEMENT 04/03/2020 Last Documented On 1 1:12PM ; [facility] Body mass index Medical Established Patient with Kia Sharma DIRECTOR OF PLACEMENT 04/03/2020 Last Documented On 1 1:12PM ; [facility] Esophageal reflux without esophagitis Me dical Established Patient with Kia Sharma DIRECTOR OF PLACEMENT 04/03/2020 Last Documented On 1 1:12PM ; [facility] Lower backache Medical Established Patient with Kia Sharma DIRECTOR OF PLACEMENT 04/03/2020 Last Documented On 1 1:12PM ; [facility] Bipolar disorder (per denia vega, diagnosed w/both Bipolar I & II) Telebehavioral Health with Halima Marroquins LPCC-S 03/20/2020 Last Documented On 1 7:55PM ; [facility] Schizoaffective disorder (pe r patient report) Telebehavioral Health with Halimachuck Condonmons LPCC-S 03/20/2020 Last Documented On 1 7:55PM ; [facility] Asthma Telemedicine New Patient with An michelle Sharma DIRECTOR OF PLACEMENT 03/20/2020 Last Documented On 1 9:48AM ; [facility] Lumbago Telemedicine New Patient with An michelle Sharma DIRECTOR OF PLACEMENT 03/20/2020 Last Documented On 1 9:48AM ; [facility] Z68.21 - Body mass index [BM I] 21.0-21.9, adult Telemedicine New Patient with Kia Sharma DIRECTOR OF PLACEMENT 03/20/2020 Last Documented On 1 9:48AM ; [facility] Work Phone: 1(400) 958-810905-31-2023 Progress note* Progress note Date Encounter Last Documented by 07/27/2022 Medical Established Patient Last documented on 07/28/2022; 10:19 AM, Mariposa Duncan CNP; [facility] Active Problems & Conditions - J45.998 - Asthma - M54.50 - Backache Lower - K21.9 - Esophageal Reflux Without Esophagitis - 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 - F25.0 - Schizoaffective Disorder Chief Complaint The Chief Complaint is: Patient states feels like gerd is coming back, patient states that burps smell like rotten eggs or [employer]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 Referred [...] BP-Sitting L117/63 mmHg BP Cuff SizeRegular Pulse Rate-Qejbqho20 bpm Temp-Cmhwxtwz11.3 F Czjaht62 in Rcfzyc299 lbs 4.8 oz Body Mass Index22 kg/m2 Body Surface Area1.8 m2 Oxygen Sylpdeakkm52 % General Appearance: - Awake. - Alert. [...] in household were unable to get needed rn child: No and unable to get other needs [...] Less than 40 years (0 points) [Pre-DM]. [facility]05-31-2023 Reason for referral (narrative)* Date Encounter Description Provider Reason for Referral 07/27/22 Medical Established Patient Mariposa Duncan DIRECTOR OF PLACEMENT Referral To Mental Health Team; JENIFFER Referral For [facility] Work Phone: 1(207) 124-361702-26-2023 Hospital Discharge instructions* Discharge Instructions* Christopher Stephenson [...] through Care Everywhere. * Nausea and Vomiting (Filipino) [facility] 1(774) 705-383301-06-2023 History of Present illness Narrative* Martha Melgoza [...] smoked today 03/03/22. [facility] Phone: 1(623) 676-749901-06-2023 Hospital Discharge instructions* Discharge Instructions* Kassidy Davidson [...] to bathe or shower. [facility] [employer] Phone: 1(190) 562-258601-03-2023 Hospital Discharge instructions* Discharge Instructions* Nicholas Denton MD - 03/01/2022 8:09 AM EST Take your medications as prescribed. You may take Tylenol Motrin as needed for pain control as wellas warm compresses. Follow-up with your OB oil rag washer as scheduled. You have been given a referral for general surgeon if this continues for further assessment of possible drainage. * Attachments The following attachments cannot be sent through Care Everywhere. * Cellulitis (Filipino) [facility] [employer] Phone: 1([phone]) 451-337106-21-2022 Evaluation note Includes: Assessments for all patient encounters Findings Encounter Date Schizoaffective disorder Established Patient with Halima Argueta LPCC-S 08/17/2021 Asthma Medical Established Patient with Kia Sharma CNP 08/17/2021 Esophageal reflux without esophagitis Me dical Established Patient with Kia Edith DIRECTOR OF PLACEMENT 08/17/2021 Schizoaffective disorder Medical Establi shed Patient with Kia Sharma [facility] 08/17/2021 Z68.20 - Body mass index [BM I] 20.0-20.9, adult Medical Established Patient with Kia Edith DIRECTOR OF PLACEMENT 08/17/2021 Schizoaffective disorder BH Established Patient with Halim[place] Marroquins [facility] 07/15/2021 Schizoaffective disorder BH Established Patient with Halima Argueta [facility] 07/15/2021 Bipolar disorder NOS Medical Established Patient with Kia Edith DIRECTOR OF PLACEMENT 07/15/2021 Esophageal reflux without esophagitis Me dical Established Patient with Kia Edith DIRECTOR OF PLACEMENT 07/15/2021 Herpes simplex type I Medical Establishe d Patient with Kia Sharma [facility] 07/15/2021 Z68.1 - Body mass index [BMI ] 19.9 or less, adult Medical Established Patient with Kia Edith [facility] 07/15/2021 Asthma Medical Established Patient with Kia Sharma DIRECTOR OF PLACEMENT 07/01/2021 Bipolar disorder NOS Medical Established Patient with Kia Edith [facility] 07/01/2021 Herpes simplex type I Medical Establishe d Patient with Kia Edith [facility] 07/01/2021 Schizoaffective disorder Medical Establi shed Patient with Kia Sharma [facility] 07/01/2021 Z68.20 - Body mass index [BM I] 20.0-20.9, adult Medical Established Patient with Kia Edith [facility] 07/01/2021 Diabetes Risk Test Score was one score 05/28/2021 Medical Established Patient with Kia Edith [facility] 05/28/2021 Herpes simplex type I Medical Establishe d Patient with Kia Edith [facility] 05/28/2021 No cough Medical Established Patient with Kia Edith [facility] 05/28/2021 Visit for: screening for hum an immunodeficiency virus Medical Established Patient with Kia Edith [facility] 05/28/2021 Z11.59 - Encounter for nettie kauffman for other viral diseases Medical Established Patient with Kia Edith [facility] 05/28/2021 Z68.1 - Body mass index [BMI ] 19.9 or less, adult Medical Established Patient with Kia Edith [facility] 05/28/2021 Asthma Medical Established Patient with Kia Edith DIRECTOR OF PLACEMENT 04/03/2020 Body mass index Medical Established Patient with Kia Edith [facility] 04/03/2020 Esophageal reflux without esophagitis Me dical Established Patient with Kia Sharma DIRECTOR OF PLACEMENT 04/03/2020 Lower backache Medical Established Patient with Kia Edith DIRECTOR OF PLACEMENT 04/03/2020 Bipolar disorder (per denia vega, diagnosed w/both Bipolar I & II) Telebehavioral Health with [place] Marroquins LPCC-S 03/20/2020 Schizoaffective disorder (pe r patient report) Telebehavioral Health with Halima Argueta LPCC-S 03/20/2020 Asthma Telemedicine New Pat ient with Kia Sharma DIRECTOR OF PLACEMENT 03/20/2020 Lumbago Telemedicine New Pat ient with Kia Edith [facility] 03/20/2020 Z68.21 - Body mass index [BM I] 21.0-21.9, adult Telemedicine New Patient with Kia Sharma DIRECTOR OF PLACEMENT 03/20/2020 [facility] Work Phone: 1(871) 446-784505-19-2022 Evaluation note Includes: Assessments for all patient encounters Findings Encounter Date Schizoaffective disorder Established Patient with [place] [facility]quins [facility] 07/15/2021 Schizoaffective disorder Established Patient with Halima [facility]gu[facility] 07/15/2021 Bipolar disorder NOS Medical Established Patient with Kia Sharma DIRECTOR OF PLACEMENT 07/15/2021 Esophageal reflux without esophagitis Me dical Established Patient with Kia Sharma DIRECTOR OF PLACEMENT 07/15/2021 Herpes simplex type I Medical Establishe d Patient with Kia Sharma [facility] 07/15/2021 Z68.1 - Body mass index [BMI ] 19.9 or less, adult Medical Established Patient with Kia Sharma DIRECTOR OF PLACEMENT 07/15/2021 Asthma Medical Established Patient with Kia Edith DIRECTOR OF PLACEMENT 07/01/2021 Bipolar disorder NOS Medical Established Patient with Kia Edith DIRECTOR OF PLACEMENT 07/01/2021 Herpes simplex type I Medical Establishe d Patient with Kia Edith DIRECTOR OF PLACEMENT 07/01/2021 Schizoaffective disorder Medical Establi shed Patient with Kia Sharma DIRECTOR OF PLACEMENT 07/01/2021 Z68.20 - Body mass index [BM I] 20.0-20.9, adult Medical Established Patient with Kiajace Sharma DIRECTOR OF PLACEMENT 07/01/2021 Diabetes Risk Test Score was one score 05/28/2021 Medical Established Patient with Kia Sharma DIRECTOR OF PLACEMENT 05/28/2021 Herpes simplex type I Medical Establishe d Patient with Kia Edith [facility] 05/28/2021 No cough Medical Established Patient with Kia Sharma [facility] 05/28/2021 Visit for: screening for hum an immunodeficiency virus Medical Established Patient with Kia Sharma [facility] 05/28/2021 Z11.59 - Encounter for nettie kauffman for other viral diseases Medical Established Patient with Kia Sharma [facility] 05/28/2021 Z68.1 - Body mass index [BMI ] 19.9 or less, adult Medical Established Patient with Kia Sharma [facility] 05/28/2021 Asthma Medical Established Patient with Kia Sharma [facility] 04/03/2020 Body mass index Medical Established Patient with Kia Sharma [facility] 04/03/2020 Esophageal reflux without esophagitis Me dical Established Patient with Kia Sharma [facility] 04/03/2020 Lower backache Medical Established Patient with Kia Sharma [facility] 04/03/2020 Bipolar disorder (per denia vega, diagnosed w/both Bipolar I & II) Telebehavioral Health with Halima Argueta [facility] 03/20/2020 Schizoaffective disorder (pe r patient report) Telebehavioral Health with Halima Argueta [facility] 03/20/2020 Asthma Telemedicine New Pat ient with Kia Sharma [facility] 03/20/2020 Lumbago Telemedicine New Pat ient with Kia Sharma [facility] 03/20/2020 Z68.21 - Body mass index [BM I] 21.0-21.9, adult Telemedicine New Patient with Kia Sharma [facility] 03/20/2020 [facility] Work Phone: 1(762) 798-933505-05-2022 Evaluation note Includes: Assessments for all patient encounters Findings Encounter Date Asthma Medical Established Patient with Kia Sharma [facility] 07/01/2021 Bipolar disorder NOS Medical Established Patient with Kia Sharma [facility] 07/01/2021 Herpes simplex type I Medical Establishe d Patient with Kia Sharma [facility] 07/01/2021 Schizoaffective disorder Medical Establi shed Patient with Kia Sharma [facility] 07/01/2021 Z68.20 - Body mass index [BM I] 20.0-20.9, adult Medical Established Patient with Kia Sharma [facility] 07/01/2021 Diabetes Risk Test Score was one score 05/28/2021 Medical Established Patient with Kia Sharma [facility] 05/28/2021 Herpes simplex type I Medical Establishe d Patient with Kia Sharma [facility] 05/28/2021 No cough Medical Established Patient with Kia Sharma [facility] 05/28/2021 Visit for: screening for hum an immunodeficiency virus Medical Established Patient with Kia Sharma [facility] 05/28/2021 Z11.59 - Encounter for scree jamari for other viral diseases Medical Established Patient with Kia Sharma [facility] 05/28/2021 Z68.1 - Body mass index [BMI ] 19.9 or less, adult Medical Established Patient with Kia Sharma [facility] 05/28/2021 Asthma Medical Established Patient with Kia Sharma [facility] 04/03/2020 Body mass index Medical Established Patient with Kia Sharma [facility] 04/03/2020 Esophageal reflux without esophagitis Me dical Established Patient with Kia Sharma [facility] 04/03/2020 Lower backache Medical Established Patient with Kia Sharma [facility] 04/03/2020 Bipolar disorder (per denia vega, diagnosed w/both Bipolar I & II) Telebehavioral Health with Halima Argueta [facility] 03/20/2020 Schizoaffective disorder (pe r patient report) Telebehavioral Health with Halima Argueta [facility] 03/20/2020 Asthma Telemedicine New Pat ient with Kia Sharma [facility] 03/20/2020 Lumbago Telemedicine New Pat ient with Kia Sharma [facility] 03/20/2020 Z68.21 - Body mass index [BM I] 21.0-21.9, adult Telemedicine New Patient with Kia Sharma [facility] 03/20/2020 [facility] Work Phone: 1(196) 124-140604-01-2022 Evaluation note Includes: Assessments for all patient encounters Findings Encounter Date Diabetes Risk Test Score was one score 05/28/2021 Medical Established Patient with Kia Sharma [facility] 05/28/2021 Herpes simplex type I Medical Establishe d Patient with Kia Sharma [facility] 05/28/2021 No cough Medical Established Patient with Kia Sharma [facility] 05/28/2021 Visit for: screening for hum an immunodeficiency virus Medical Established Patient with Kia Sharma [facility] 05/28/2021 Z11.59 - Encounter for scree jamari for other viral diseases Medical Established Patient with Kia Sharma [facility] 05/28/2021 Z68.1 - Body mass index [BMI ] 19.9 or less, adult Medical Established Patient with Kia Sharma [facility] 05/28/2021 Asthma Medical Established Patient with Kia Sharma [facility] 04/03/2020 Body mass index Medical Established Patient with Kia Sharma [facility] 04/03/2020 Esophageal reflux without esophagitis Me dical Established Patient with Kia Sharma [facility] 04/03/2020 Lower backache Medical Established Patient with Kia Sharma [facility] 04/03/2020 Bipolar disorder (per denia vega, diagnosed w/both Bipolar I & II) Telebehavioral Health with Halima Marroquins [facility] 03/20/2020 Schizoaffective disorder (pe r patient report) Telebehavioral Health with Halima Condonmons [facility] 03/20/2020 Asthma Telemedicine New Pat ient with Kia Sharma [facility] 03/20/2020 Lumbago Telemedicine New Pat ient with Kia Sharma [facility] 03/20/2020 Z68.21 - Body mass index [BM I] 21.0-21.9, adult Telemedicine New Patient with Kia Sharma [facility] 03/20/2020 [facility] Work Phone: 1(859) 319-125808-18-2021 History of Present illness Narrative* Irish Nelson [...] RN - 10/14/2020 12:39 PM EDT [employer] EVENT PROMOTIONS COORDINATOR in to see patient. Patient's boyfriend called to quill picking machine operator. * Rufina Hamilton RN - [...] calls at this time. [facility]: 1(105) 685-589202-05-2021 Evaluation note Includes: Assessments for all patient encounters Findings Encounter Date Asthma Medical Established Patient with Kia Sharma [facility] 04/03/2020 Body mass index Medical Established Patient with Kia Sharma [facility] 04/03/2020 Esophageal reflux without esophagitis Me dical Established Patient with Kia Sharma [facility] 04/03/2020 Lower backache Medical Established Patient with Kia Sharma [facility] 04/03/2020 Bipolar disorder (per denia vega, diagnosed w/both Bipolar I & II) Telebehavioral Health with Halima Argueta [facility] 03/20/2020 Schizoaffective disorder (pe r patient report) Telebehavioral Health with Halima Argueta [facility] 03/20/2020 Asthma Telemedicine New Pat ient with Kia Sharma [facility] 03/20/2020 Lumbago Telemedicine New Pat ient with Kia Sharma [facility] 03/20/2020 Z68.21 - Body mass index [BM I] 21.0-21.9, adult Telemedicine New Patient with Kia Sharma [facility] 03/20/2020 [facility] Work Phone: 1(104) 496-628401-22-2021 History general Narrative - Reported Includes: Medical History in patient's chart Description Last Updated per pt report- 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 ~heartb urn 03/20/2020 History of psychiatric disor ders ADHD, manic bipolar 1 and 2, schizoeffective disorder 03/20/2020 History of tooth extraction 03/20/2020 History of asthma 03/20/2020 A recent immunization for flu 03/20/2020 No previous hospitalizations 03/20/2020 [facility] Work Phone: 1(392) 214-437601-22-2021 History general Narrative - Reported Includes: Medical History in patient's chart Description Last Updated per pt report- 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 ~heartb urn 03/20/2020 Last Documented On 1 9:48AM ; [facility] History of psychiatric disor ders ADHD, manic bipolar 1 and 2, schizoeffective disorder 03/20/2020 Last Documented On 1 9:48AM ; [facility] History of tooth extraction 03/20/2020 Last Documented On 1 9:48AM ; [facility] History of asthma 03/20/2020 Last Documented On 1 9:48AM ; [facility] A recent immunization for flu 03/20/2020 Last Documented On 1 9:48AM ; [facility] No previous hospitalizations 03/20/2020 Last Documented On 1 9:48AM ; [facility] Work Phone: Discharge summary Author Osmani baugh [facility] October 29, 2021 9:52am Note Date/Time October 29, 2021 9:52am [facility] [address] [place] [address] Discharge Summary Signed Patient: Bennett Vaughn MR#: [id number] : 1995 Acct:[id number] Age/Sex: 26 / F Adm Date: 2 Loc: Room: [address] [place] [address]: Feliberto Faust MD Copies to: [...] 15 Days Qty: 30 1RF Follow Up: Religion Stakeholder Manager [Other] (Therapy: Case management: ) Documented By: Osmani Timmons MD 2 0949 Signed By: <Electronically signed by Osmani Timmons MD> 10/29/21 0952 [facility] Work Phone: Evaluation note* Diagnosis HGSIL (high grade squamous intraepithelial lesion) on Pap smear of cervix documented in this encounter [employer] Phone: evaluation note* Diagnosis Preop testing- Primary Preoperative examination, unspecified documented in this encounter [employer] Phone: evaldmqmvt note* Diagnosis Preop testing Preoperative examination, unspecified documented in this encounter [employer] Phone: evalneyjji note* Diagnosis 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 documented in this encounter [employer] Phone: evalwthyyy note* Diagnosis Irregular menstrual cycle documented in this encounter [employer] Phone: evaluation note* Diagnosis Vaginal discharge Leukorrhea, not specified as infective documented in this encounter [employer] Phone: evaluation note* Diagnosis Onset Date Resolution Status Bipolar affective, mixed, sev w/ psych acute Chronic schizophrenia acute PTSD (post-traumatic stress disorder) acute Suicidal ideation acute [facility] Work Phone: Evaluation note* Diagnosis Cellulitis of right breast- Primary documented in this encounter [employer] Work Phone: evaluation note* Diagnosis Abscess of right breast- Primary Inflammatory disease of breast Abscess of right breast Inflammatory disease of breast documented in this encounter [employer] Work Phone: evaluation note* Diagnosis Nausea vomiting and diarrhea- Primary Nausea with vomiting documented in this encounter [employer] Work Phone: evaluation note* Diagnosis Abscess of female breast Inflammatory disease of breast documented in this encounter [facility] [employer] Work Phone: evaluation note* Diagnosis Flank pain- Primary Abdominal pain, unspecified site Urinary tract infection without hematuria, site unspecified documented in this encounter [employer] Work Phone: evaluation note* Diagnosis Abdominal pain- Primary Abdominal pain, unspecified site documented in this encounter [facility] [employer]* Diagnosis Abdominal cramping- Primary Abdominal pain, unspecified site documented in this encounter [facility] and [facility] note Author Feliberto Faust [facility] October 27, 2021 3:07pm Note Date/Time October 27, 2021 3: 07pm [facility] [address] [place] [address] Psychiatry H&P Signed Patient: Bennett Vaughn MR#: [id number] : 1995 Acct:[id number] Age/Sex: 26 / F Adm Date: 2 Loc: Room: [address] [place] [address] Type: ADM IN Attending Dr: Feliberto Faust [...] Substance Use: luciejauna daily Living: boyfriend Employment: [employer] Review of symptoms: Constitutional: Denies chills [...] Appearance Clear Urine pH 7.0 Ur Specific Cropsey 1.005 Urine Protein Negative Urine Glucose (UA) [...] signed by Feliberto Faust MD> 10/27/21 1507 [facility] Work Phone: History of Present illness Narrative History of Present Illness not supported for this document type No History of Present Illness [facility] Work Phone: Hospital Discharge instructions* Instructions* [...] In the meantime, you may take an [id number] analgesic (Tylenol, Anacin, etc.) and use a heating pad applied to the lower abdomen. Please call the office as soon as possible for a post-operative visit in two weeks. If you experience any unusual amount of bleeding or side effects that you cannot readily explain, please do not hesitate to call the office. documented in this [facility] Work Phone: Hospital Discharge instructions Additional Instructions Regular diet No activity [facility] Work Phone: Instructions Instructions not supported for this document type No Instructions [facility] Work Phone: Patient problem outcome Narrative Includes: Evaluations & Outcomes for active Goals No Outcomes [facility] Work Phone: Progress note Author Osmani baugh [facility] October 28, 2021 12:18pm Note Date/Time October 28, 2021 12:18pm [facility] [address] [place] [address] Psychiatry Progress Note Signed Patient: Bennett Vaughn MR#: [id number] : 1995 Acct:[id number] Age/Sex: 26 / F Adm Date: 2 Loc: Room: 6A9643-6 Type : ADM IN Attending Dr: Feliberto [...] signed by Osmani Timmons MD> 10/28/21 1218 [facility] Work Phone: Reason for referral (narrative)No Reason for Referral [facility] Work Phone: Review of systems Narrative - Reported Review of Systems not supported for this document type No Review of Systems [facility] Work Phone: Summary Purpose Family History No Family History Records Found Description Last Updated father unknown 03/20/2020 Fraternal history of asthma 03/20/2020 Maternal history of hypertension 021 Relationship Condition Age at Onset Recorded Date/T jama Not Specified Bipolar affective disorder Unknown Hypertension Unknown brother Asthma Unknown Description Last Updated father unknown 03/20/2020 Last Documented On 1 9:48AM ; [facility] Fraternal history of asthma 03/20/2020 Maternal history of hypertension 021 Advance Directives No Advanced Directives Records FoundDocuments on File Type Date Recorded Patient Supervisor Scenic Arts Expl anation ACP-Advance Directive ACP-Power of Network Technology Instructor Latest Code Status on File Code Status Date Activated Date Inactivated Comments Full Code 02/13/2018 11:30 AM 02/15/2018 11:04 PM Full Code 07/15/2017 3:32 AM 07/17/2017 3:26 PM Full Code 07/15/2017 3:31 AM 07/15/2017 3:32 AM Full Code 10/29/2016 5:43 AM 11/02/2016 12:08 AM Full Code 02/14/2015 3:50 AM 02/17/2015 4:19 PM Documents on File Type Date Recorded Patient Supervisor Scenic Arts Expl anation ACP-Advance Directive ACP-Power of Network Technology Instructor Latest Code Status on File Code Status [...] sent through Care Everywhere. * Tooth: Abscessed (Filipino) documented in this encounter* Instructions* Sid Norris [...] sent through Care Everywhere. * Bacterial Vaginosis (Filipino) * Vaginal Bleeding (Filipino) documented in this encounter* Instructions* Irina Ojeda PA-C - 02/06/2020 Call your dentist to arrange follow-up for recheck this week. * Attachments The following attachments cannot be sent through Care Everywhere. * Tooth: Abscessed (Filipino) documented in this encounter* Instructions* Jose Saldaña APRN - CNP - 12/24/2019 Take amoxicillin as prescribed. Return to the emergency department for worsening symptoms. * Attachments The following attachments cannot be sent through Care Everywhere. * Dental Care: Pre-Dental Work Precautions: General Info (Filipino) documented in this encounter Assessments Diagnosis Dental [...] Telemedicine New Pat ient with Kia Sharma [facility] 03/20/2020 Z68.21 - Body mass index [BM I] 21.0-21.9, adult Telemedicine New Patient with Kia Sharma [facility] 03/20/2020 Diagnosis Women's annual routine gynecological examination Findings Encounter Date Asthma Medical Established Patient with Kia Sharma [facility] 04/03/2020 Body mass index Medical Established Patient with Kia Sharma [facility] 04/03/2020 Esophageal reflux without esophagitis Me dical Established Patient with Kia Sharma [facility] 04/03/2020 Lower backache Medical Established Patient with Kia Sharma [facility] 04/03/2020 Bipolar disorder (per denia vega, diagnosed w/both Bipolar I & II) Telebehavioral Health with Halima Condonmons [facility] 03/20/2020 Schizoaffective disorder (pe r patient report) Telebehavioral Health with Halima Condonmons [facility] 03/20/2020 Asthma Telemedicine New Pat ient with Kia Sharma [facility] 03/20/2020 Lumbago Telemedicine New Pat ient with Kia Sharma [facility] 03/20/2020 Z68.21 - Body mass index [BM I] 21.0-21.9, adult Telemedicine New Patient with Kia Sharma [facility] 03/20/2020 Diagnosis Dental infection- Primary [...] section and content) DATE CREATED AUTHOR 12/08/2018 [facility] DATE CREATED AUTHOR AUTHOR'S ORGANIZ ATION 05/31/2021 [facility] DATE CREATED AUTHOR AUTHOR'S ORGANIZ ATION 03/16/2022 [facility] DATE CREATED AUTHOR AUTHOR'S ORGANIZ ATION 04/02/2022 [facility] DATE CREATED AUTHOR AUTHOR'S ORGANIZ ATION 10/02/2023 [facility] DATE CREATED AUTHOR AUTHOR'S ORGANIZ ATION 10/25/2023 [facility] dical Specialists EPIC Reason for [...] (cervical intraepithelial neoplasia II) SHREYA II Procedures SD CONIZATION CERVIX,LOOP ELECTRD DILATATION AND CURETTAGE LEEP-ENDOCERVICAL CURETTAGE Anthony Galloway MD [address] [place] [address] [facility] Reason Comments Breast Pain Right sided, onset y esterday pm, patient states she had an infection in her right breast a few months ago Specialty Diagnoses / Procedures Referred By Gladis t Referred To Contact Diagnoses Abscess of right breast right breast abcess Procedures SD DRAIN SKIN ABSCESS SIMPLE BREAST INCISION AND DRAINAGE- BREAST Geoff Miller MD [address] [place] [address] [facility] [address] [place] [address] Referral ID Status Reason Start Date Expiration Date Visits Re quested Visits Authorized [id number] 1 1 Reason Comments Nausea Emesis Illness Pt. States she has h ad nausea & vomiting since this am. Reports hot & cold flashes & Occasional dizziness Specialty Diagnoses / Procedures Referred By Gladis vega Referred To Contact Radiology Diagnoses Abscess of female breast Procedures US BREAST LIMITED RIGHT US BREAST COMPLETE RIGHT Geoff Miller MD [address] [place] [address] Referral ID Status Reason Start Date Expiration Date Visits Re quested Visits Authorized [id number] Open 04/18/2022 04/18/2023 1 1 Specialty Diagnoses / Procedures Referred By Gladis vega Referred To Contact Radiology Diagnoses Abscess of female breast Procedures DUSTIN JASMINA DIGITAL DIAGNOSTIC BILATERAL DUSTIN DIGITAL DIAGNOSTIC W OR WO CAD BILATERAL Geoff Miller MD [address] [place], [place] [address] [address] Referral ID Status Reason Start Date Expiration Date Visits Re quested Visits Authorized [id number] Closed 04/18/2022 04/18/2023 1 1 Reason Comments [...] 100 mL IVPB (COMPLETED) 2,000 mg, Intravenous, SPECIAL SERVICES AGENT TO O.R., 1 dose, On Mon10/14/20 at [...] 100 mL IVPB (COMPLETED) 2,000 mg, IntraVENous, SPECIAL SERVICES AGENT TO O.R., 1 dose, On Mon03/04/22 at 1115, Antimicrobial Indications: Surgical Prophylaxis, Administer within 1 hour prior to incision. Recommend to repeat in 3-4 hours after initial dose if still intra-op., Pre-op (day of surgery) 1244 (Given - Provid er: Roseanne Kruse APRN - EVENT PROMOTIONS COORDINATOR) dimenhyDRINATE (DRAMAMINE) tablet 50 mg (COMPLETED) 50 [...] override 1205 (Not Given - Pr ovider: Jfeferson Mckee RN - Reason: Other - Comment: [...] PHYSICIAN NO FAMILY Primary Care Provider Active Fire Alarm Operator Relationship Specialty Start Date End Date Kia Sharma, ROTARY DUMP OPERATOR - DIRECTOR OF PLACEMENT [address] [place] [address] PCP - General Nurse Practitioner 04/13/22 Fire Alarm Operator Relationship Specialty Start Date End Date Kia Sharma, ROTARY DUMP OPERATOR - DIRECTOR OF PLACEMENT [address] [place] [address] PCP - General Nurse Practitioner 04/13/22 Fire Alarm Operator Relationship Specialty Start Date End Date Kia Sharma APRN - DIRECTOR OF PLACEMENT [address] [place] [address] PCP - General Nurse Practitioner 04/13/22 Fire Alarm Operator Relationship Specialty Start Date End Date Kia Sharma ROTARY DUMP OPERATOR - DIRECTOR OF PLACEMENT [address] [place] [phone] PCP - General Nurse Practitioner 04/13/22 Fire Alarm Operator Relationship Specialty Start Date End Date Kia Sharma ROTARY DUMP OPERATOR - DIRECTOR OF PLACEMENT [address] [phone] PCP - General Nurse Practitioner 04/13/22 Fire Alarm Operator Relationship Specialty Start Date End Date Kia Sharma APRN - DIRECTOR OF PLACEMENT [address] [place] [phone] PCP - General Nurse Practitioner 04/13/22 FOR [...] BE BASED ON THE PRIMARY CLINICAL RECORDS. [facility]. provides no warranty or guarantee of the accuracy or completeness of information in this document.
== END 2023-11-01 19:05 | disposition home or self-care (01) ==
LOC: LAB 19:04
PROVIDERS: Visit Provider Obstetrics & Gynecology
DX: Z34.93 Encounter for supervision of normal pregnancy, unspecified, third trimester (principal)
CPT/HCPCS: 87081; 87150

== ENCOUNTER 2023-11-02 20:08 | Outpatient (OUT) | payer OTHER, SELFPAY ==
--- OUTSIDE RECORDS SUMMARY | 2023-11-02 20:13 | XMS_ITS | CCD ---
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 Name Role Phone Bryce De La Garza Admitting Physician Unavailable Bryce De La Garza Attending Physician Unavailable NON, STAFF Primary Care Physician Unavailab Savage Roman Rounding Physician Unavailable FEI LOO Admitting Unavailable FEI LOO Attending Unavailable Unavailable Primary Care Provider UnavailKia Jeffrey Primary Care Provider [phone] Unavailable Primary Care Provider UnavailKia Jeffrey CNP Primary Care Provider [phone] KIA SHARMA Referring Unavailable NO FAMILY, PHYSICIAN [...] r Mariposa Duncan CNP Primary Care Provider [phone] Kia Booker APRN, CNP Primary Care Provide [...] Attending Unavailable BRENDA STEPHEN Admitting Unavailable BRENDA STEPHNE Attending Unavailable EDITH, KIA Primary Care Unavailable [...] mg Start: 05-27-2020 take 2 tablets by [facility] every six hours as needed for [...] pain 10 tablet 0 10/14/2020 10/17/2020 Active [id number] 200 actuat albuterol 0.09 mg/actuat metered dose [...] Routineon 2023 Bilirubin, SemiQt,Ur Negative Normal NEG [facility] Comment on above: Performed By: #### U A #### [facility] [address] [place] [address] [place] [address] Truck Driver Instructor: Hayden Cartagena MD Blood, Urine Negative Normal NEG [facility] Comment on above: Performed By: #### U A #### [facility] [address] [place] [address] Truck Driver Instructor: Hayden Cartagena MD Clarity (U) Clear Normal CLEAR [facility] Comment on above: Performed By: #### U A #### [facility] [address] [place], [place] 1587983 Truck Driver Instructor: Hayden Cartagena MD Color (U) Yellow Normal YEL [facility] Comment on above: Performed By: #### U A #### [facility] [address] [place], [place] [id number] Truck Driver Instructor: Hayden Cartagena MD Glucose Ql (U) Negative Normal NEG [facility] Comment on above: Performed By: #### U A #### [facility] [address] [place] [address] [place] [place], [place] 2723183 Truck Driver Instructor: Hayden Cartagena MD Ketones Ql (U) Negative Normal NEG [facility] Comment on above: Performed By: #### U A #### [facility] [address] [place] [address] [place] [place], [place] 8104983 Truck Driver Instructor: Hayden Cartagena MD Leukocyte esterase Test strip Ql (U) Negative Normal NEG [facility] Comment on above: Performed By: #### U A #### [facility] [address] [place] [address] Dr. [place], [place] [address] Truck Driver Instructor: Hayden Cartagena MD Nitrite,Ur Negative Normal [facility] Comment on above: Performed By: #### U A #### [facility] [address] [place] [address] Dr. [place], [facility]83 Truck Driver Instructor: Hayden Cartagena MD PH,Ur 6.0 Normal 5.0-9.0 [facility] Comment on above: Performed By: #### U A #### [facility] [address] [place] [address] [place] [place], [place] 4770083 Truck Driver Instructor: Hayden Cartagena MD Protein Ql (U) Negative Normal NEG [facility] Comment on above: Performed By: #### U A #### [facility] [address] [place] [address] [place] [place], [place] 3118083 Truck Driver Instructor: Hayden Cartagena MD Spec. [place],Ur 1.020 Normal 1.010-1.020 [facility] Comment on above: Performed By: #### U A #### [facility] [address] [place] [address] Truck Driver Instructor: Hayden Cartagena MD Urobilinogen,Ur Normal Normal 0.0-1.0 [facility] Comment on above: Performed By: #### U A #### [facility] [address] [place] [address] Truck Driver Instructor: Hayden Cartagena MD Urinalysison 09-12-2023 Bilirubin Ql (U) Negative NEGATIVE [facility] Clarity (U) Clear Clear [facility] Color (U) Yellow Yellow [facility] Glucose Test strip (U) [Mass/Vol] Negative NEGATIVE mg/dL [facility] Hemoglobin Auto test strip Ql (U) Negative NEGATIVE [facility] Interpretation and review of laboratory results Abnormal [facility] Ketones (U) [Mass/Vol] Negative NEGAT ROSA mg/dL [facility] Leukocyte esterase Test strip Ql (U) Negative NEGATIVE [facility] Nitrite Ql (U) Negative NEGATIVE [facility] pH (U) 6.0 [pH] 5.0 - 9.0 [facility] Protein (U) [Mass/Vol] Negative NEGAT ROSA mg/dL [facility] Specific gravity (U) [Rel density] Low 1.010 - 1.020 [facility] Urobilinogen Qn (U) Normal 0.0 - 1. 0 EU/dL [facility] Urinalysis, Routineon 2023 Bilirubin, SemiQt,Ur Negative Normal NEG [facility] Comment on above: Performed By: #### U A #### [facility] [address] [place] [address] Truck Driver Instructor: Hayden Cartagena MD Blood, Urine Negative Normal NEG [facility] Comment on above: Performed By: #### U A #### [facility] [address] [place] [address] [place] [place], [place] 8582683 Truck Driver Instructor: Hayden Cartagena MD Clarity (U) Clear Normal CLEAR [facility] Comment on above: Performed By: #### U A #### [facility] [address] [place] [address] [place] [place], [place] 2493983 Truck Driver Instructor: Hayden Cartagena MD Color (U) Yellow Normal YEL [facility] Comment on above: Performed By: #### U A #### [facility] [address] [place] [address] [place], [place] 9546883 Truck Driver Instructor: Hayden Cartagena MD Glucose Ql (U) Negative Normal NEG [facility] Comment on above: Performed By: #### U A #### [facility] [address] [place] [address] [place], [place] 2023383 Truck Driver Instructor: Hayden Cartagena MD Ketones Ql (U) Negative Normal NEG [facility] Comment on above: Performed By: #### U A #### [facility] [address] [place] [address] [place], [place] 5237383 Truck Driver Instructor: Hayden Cartagena MD Leukocyte esterase Test strip Ql (U) Negative Normal NEG [facility] Comment on above: Performed By: #### U A #### [facility] [address] [place] [address] [place], [place] 5387683 Truck Driver Instructor: Hayden Cartagena MD Nitrite,Ur Negative Normal NEG [facility] Comment on above: Performed By: #### U A #### [facility] [address] [place] [address] [place]. [place], [place] 8946183 Truck Driver Instructor: Hayden Cartagena MD PH,Ur 6.0 Normal 5.0-9.0 [facility] Comment on above: Performed By: #### U A #### [facility] [address] [place] [address] [place], [place] 0332283 Truck Driver Instructor: Hayden Cartagena MD Protein Ql (U) Negative Normal NEG [facility] Comment on above: Performed By: #### U A #### [facility] [address] [place] [address] Truck Driver Instructor: Hayden Cartagena MD Spec. [place],Ur <1.005 Low 1.010-1.020 [facility] Comment on above: Performed By: #### U A #### [facility] [address] [place] [address] Truck Driver Instructor: Hayden Cartagena MD Urobilinogen,Ur Normal Normal 0.0-1.0 [facility] Comment on above: Performed By: #### U A #### [facility] [address] [place], [place] 8718883 Truck Driver Instructor: Hayden Cartagena MD Glucose, Whole Bloodon 09-03 Glucose [Mass/Vol] 160 mg/dL High 74-100 [facility] Urinalysis, Routineon 2023 Bilirubin, SemiQt,Ur Negative Normal NEG [facility] Comment on above: Performed By: #### U MICAO, UA #### [address] [place], [place] 9063183 Truck Driver Instructor: Hayden Cartagena MD Blood, Urine Negative Normal NEG [facility] Comment on above: Performed By: #### U MICAO, UA #### [facility] [address] [place] [address] Truck Driver Instructor: Hayden Cartagena MD Clarity (U) Clear Normal CLEAR [facility] Comment on above: Performed By: #### U MICAO, UA #### [facility] [address] [place] [address] Truck Driver Instructor: Hayden Cartagena MD Color (U) Yellow Normal YEL [facility] Comment on above: Performed By: #### U MICAO, UA #### [facility] [address] [place], [place] 2187983 Truck Driver Instructor: Hayden Cartagena MD Glucose Ql (U) 1+ mg/dL Abnormal NEG [facility] Comment on above: Performed By: #### U MICAO, UA #### [facility] [address] [place], [place] 9739083 Truck Driver Instructor: Hayden Cartagena MD Ketones Ql (U) Negative Normal NEG [facility] Comment on above: Performed By: #### U MICAO, UA #### [address] [place], [place] 7529883 Truck Driver Instructor: Hayden Cartagena MD Leukocyte esterase Test strip Ql (U) Negative Normal NEG [facility] Comment on above: Performed By: #### U MICAO, UA #### [address] [place], [facility]83 Truck Driver Instructor: Hayden Cartagena MD Nitrite,Ur Negative Normal [facility] Comment on above: Performed By: #### U MICAO, UA #### [address] [place], [place] 5161883 Truck Driver Instructor: Hayden Cartagena MD PH,Ur 6.0 Normal 5.0-9.0 [facility] Comment on above: Performed By: #### U MICAO, UA #### [facility] [address] [place] [address] Dr. [place], [facility]83 Truck Driver Instructor: Hayden Cartagena MD Protein Ql (U) Negative Normal NEG [facility] Comment on above: Performed By: #### U MICAO, UA #### [facility] [address] [place] [address] [place], [place] 7517183 Truck Driver Instructor: Hayden Cartagena MD Spec. [place],Ur <1.005 Low 1.010-1.020 [facility] Comment on above: Performed By: #### U MICAO, UA #### [facility] [address] [place], [place] 3378083 Truck Driver Instructor: Hayden Cartagena MD Urobilinogen,Ur Normal Normal 0.0-1.0 [facility] Comment on above: Performed By: #### U MICAO, UA #### [facility] [address] [place], [place] 7559783 Truck Driver Instructor: Hayden Cartagena MD Urinalysis,Microon Bacteria TRACE Abnormal NONE [facility] Comment on above: Performed By: #### U MICAO, UA #### [facility] [address] [place], [place] 5358883 Truck Driver Instructor: Hayden Cartagena MD Epithelial cells LM Ql (Urine sed) 5 TO 10 Normal 0-25 [facility] Comment on above: Performed By: #### U MICAO, UA #### [facility] [address] [place], [place] 3709683 Truck Driver Instructor: Hayden Cartagena MD Urine RBC's None Normal 0-2 [facility] Comment on above: Performed By: #### U MICAO, UA #### [facility] [address] [place] [address] Dr. [place], [place] 5897883 Truck Driver Instructor: Hayden Cartagena MD Urine WBC's None Normal 0-5 [facility] Comment on above: Performed By: #### U MICAO, UA #### [facility] [address] [place], [place] 6890283 Truck Driver Instructor: Hayden Cartagena MD Urinalysis, Routineon 2023 Bilirubin, SemiQt,Ur Negative Normal NEG [facility] Comment on above: Performed By: #### U A #### [facility] [address] [place] [address] Dr. [place], [place] 0340083 Truck Driver Instructor: Hayden Cartagena MD Blood, Urine Negative Normal NEG [facility] Comment on above: Performed By: #### U A #### [facility] [address] [place] [address] [place] [address] Truck Driver Instructor: Hayden Cartagena MD Clarity (U) Clear Normal CLEAR [facility] Comment on above: Performed By: #### U A #### [facility] [address] [place] [address] [place]. [place], [place] 6519183 Truck Driver Instructor: Hayden Cartagena MD Color (U) Yellow Normal YEL [facility] Comment on above: Performed By: #### U A #### [facility] [address] [place] [address] Dr[place], [place] 7189383 Truck Driver Instructor: Hayden Cartagena MD Glucose Ql (U) Negative Normal NEG [facility] Comment on above: Performed By: #### U A #### [facility] [address] [place] [address] [place], [place] 9456983 Truck Driver Instructor: Hayden Cartagena MD Ketones Ql (U) Negative Normal NEG [facility] Comment on above: Performed By: #### U A #### [facility] [address] [place] [address] [place] [address] Truck Driver Instructor: Hayden Cartagena MD Leukocyte esterase Test strip Ql (U) Negative Normal NEG [facility] Comment on above: Performed By: #### U A #### [facility] [address] [place] [address] [place], [place] 1215283 Truck Driver Instructor: Hayden Cartagena MD Nitrite,Ur Negative Normal NEG [facility] Comment on above: Performed By: #### U A #### [facility] [address] [place] [address] [place], [place] 4784283 Truck Driver Instructor: Hayden Cartagena MD PH,Ur 6.0 Normal 5.0-9.0 [facility] Comment on above: Performed By: #### U A #### [facility] [address] [place] [address] [place], [place] 3922983 Truck Driver Instructor: Hayden Cartagena MD Protein Ql (U) Negative Normal NEG [facility] Comment on above: Performed By: #### U A #### [facility] [address] [place] [place] [address] Truck Driver Instructor: Hayden Cartagena MD Spec. [place],Ur <1.005 Low 1.010-1.020 [facility] Comment on above: Performed By: #### U A #### [facility] [address] [place] [place] [address] Truck Driver Instructor: Hayden Cartagena MD Urobilinogen,Ur Normal Normal 0.0-1.0 [facility] Comment on above: Performed By: #### U A #### [facility] [address] [place] [place] [address] Truck Driver Instructor: Hayden Cartagena MD Microscopic Urinalysison Bacteria LM Ql (Urine sed) 1+ Abnormal None [facility] Epithelial cells LM.HPF (Urine sed) [#/Area] 0 TO 2 [facility] Interpretation and review of laboratory results Abnormal [facility] RBC LM.HPF (Urine sed) [#/Area] None [facility] WBC LM.HPF (Urine sed) [#/Area] None [facility] Urinalysison 08-24-2023 Bilirubin Ql (U) Negative NEGATIVE [facility] Clarity (U) Clear Clear [facility] Color (U) Yellow Yellow [facility] Glucose Test strip (U) [Mass/Vol] 1+ Abnormal NEGATIVE mg/dL [facility] Hemoglobin Auto test strip Ql (U) Negative NEGATIVE [facility] Interpretation and review of laboratory results Abnormal [facility] Ketones (U) [Mass/Vol] Negative NEGAT ROSA mg/dL [facility] Leukocyte esterase Test strip Ql (U) Negative NEGATIVE [facility] Nitrite Ql (U) Negative NEGATIVE [facility] pH (U) 6.0 [pH] 5.0 - 9.0 [facility] Protein (U) [Mass/Vol] Negative NEGAT ROSA mg/dL [facility] Specific gravity (U) [Rel density] Low 1.010 - 1.020 [facility] Urobilinogen Qn (U) Normal 0.0 - 1. 0 EU/dL [facility] Urinalysis, Routineon 2023 Bilirubin, SemiQt,Ur Negative Normal NEG [facility] Comment on above: Performed By: #### U RC #### [address] [address] Truck Driver Instructor: Claude Gonzalez MD [address] [place] [address] Truck Driver Instructor: Hayden Cartagena MD Blood, Urine Negative Normal [facility] Comment on above: Performed By: #### U RC #### [address] [address] Truck Driver Instructor: Claude Gonzalez MD [address] [place] 9293383 Truck Driver Instructor: Hayden Cartagena MD Clarity (U) Clear Normal CLEAR [facility] Comment on above: Performed By: #### U RC #### [address] [address] Truck Driver Instructor: Claude Gonzalez MD [address] [place] 9293383 Truck Driver Instructor: Hayden Cartagena MD Color (U) Yellow Normal YEL [facility] Comment on above: Performed By: #### U RC #### [address] [address] Truck Driver Instructor: Claude Gonzalez MD [facility] [address] [place] [address] [place] [address] Truck Driver Instructor: Hayden Cartagena MD Glucose Ql (U) 1+ mg/dL Abnormal NEG [facility] Comment on above: Performed By: #### U RC #### [facility] [address] [place] [address] Truck Driver Instructor: Claude Gonzalez MD [facility] [address] [place] [address] Dr. [place], [place] 6150383 Truck Driver Instructor: Hayden Cartagena MD Ketones Ql (U) Negative Normal NEG [facility] Comment on above: Performed By: #### U RC #### [address] [address] Truck Driver Instructor: Claude Gonzalez MD [facility] [address] [place] [address] Dr. [place], [place] 4119983 Truck Driver Instructor: Hayden Cartagena MD Leukocyte esterase Test strip Ql (U) Negative Normal NEG [facility] Comment on above: Performed By: #### U RC #### [address] [address] Truck Driver Instructor: Claude Gonzalez MD [facility] [address] [place] [address] [place] [address] Truck Driver Instructor: Hayden Cartagena MD Nitrite,Ur Negative Normal [facility] Comment on above: Performed By: #### U RC #### [address] [address] Truck Driver Instructor: Claude Gonzalez MD [facility] [address] [place] [address] Dr. [place], [place] 0581483 Truck Driver Instructor: Hayden Cartagena MD PH,Ur 6.0 Normal 5.0-9.0 [facility] Comment on above: Performed By: #### U RC #### [address] [address] Truck Driver Instructor: Claude Gonzalez MD [facility] [address] [place] [address] [place] [address] Truck Driver Instructor: Hayden Cartagena MD Protein Ql (U) Negative Normal NEG [facility] Comment on above: Performed By: #### U RC #### [place] [address] [place] [address] Truck Driver Instructor: Claude Gonzalez MD [facility] [address] [place] [address] Dr. [place] 9293383 Truck Driver Instructor: Hayden Cartagena MD Spec. [place],Ur <1.005 Low 1.010-1.020 [facility] Comment on above: Performed By: #### U RC #### [address] [address] Truck Driver Instructor: Claude Gonzalez MD [facility] [address] [place] [address] Dr. [place] 9293383 Truck Driver Instructor: Hayden Cartagena MD Urobilinogen,Ur Normal Normal 0.0-1.0 [facility] Comment on above: Performed By: #### U RC #### [address] [address] Truck Driver Instructor: Claude Gonzalez MD [facility] [address] [place] [address] Dr. [place] 9293383 Truck Driver Instructor: Hayden Cartagena MD Urinalysis,Microon 4 Bacteria 1+ Abnormal NONE [facility] Comment on above: Performed By: #### U RC #### [address] [address] Truck Driver Instructor: Claude Gonzalez MD [facility] [address] [place] [address] [place] [address] Truck Driver Instructor: Hayden Cartagena MD Epithelial cells LM Ql (Urine sed) 0 TO 2 Normal 0-25 [facility] Comment on above: Performed By: #### U RC #### [address] [address] Truck Driver Instructor: Claude Gonzalez MD [facility] [address] [place] [address] Dr. [place] 9293383 Truck Driver Instructor: Hayden Cartagena MD Urine RBC's None Normal 0-2 [facility] Comment on above: Performed By: #### U RC #### [facility] [address] [place] [address] Truck Driver Instructor: Claude Gonzalez MD [facility] [address] [place] [address] [place] [address] Truck Driver Instructor: Hayden Cartagena MD Urine WBC's None Normal 0-5 [facility] Comment on above: Performed By: #### U RC #### [facility] [address] [place] [address] Truck Driver Instructor: Claude Gonzalez MD [address] [place] [address] Truck Driver Instructor: Hayden Cartagena MD Cult,Urineon 07-01-2023 Cult,Urine Specimen Description .CLEAN CATCH URINE Culture NO SIGNIFICANT GROWTH Report Status FINAL 07/01/2023 Normal [facility] Comment on above: Performed By: #### U RC #### [facility] [address] [place] [address] Truck Driver Instructor: Claude Gonzalez MD [address] [place] [address] Truck Driver Instructor: Hayden Cartagena MD Urinalysis w/ Microon 2023 Bilirubin, SemiQt,Ur Negative Normal NEG [facility] Comment on above: Performed By: #### U AMIC #### [facility] [address] [place] [address] [place] [address] Truck Driver Instructor: Hayden Cartagena MD Blood, Urine Negative Normal NEG [facility] Comment on above: Performed By: #### U AMIC #### [address] [place] [address] Truck Driver Instructor: Hayden Cartagena MD Clarity (U) Clear Normal CLEAR [facility] Comment on above: Performed By: #### U AMIC #### [facility] [address] [place], [place] 8809483 Truck Driver Instructor: Hayden Cartagena MD Color (U) Yellow Normal YEL [facility] Comment on above: Performed By: #### U AMIC #### [facility] [address] [place], [place] 9866883 Truck Driver Instructor: Hayden Cartagena MD Epithelial cells LM Ql (Urine sed) 2 TO 5 Normal 0-25 [facility] Comment on above: Performed By: #### U AMIC #### [facility] [address] [place], [place] 0034883 Truck Driver Instructor: Hayden Cartagena MD Glucose Ql (U) Negative Normal NEG [facility] Comment on above: Performed By: #### U AMIC #### [facility] [address] [place] [address] [place], [place] 9598783 Truck Driver Instructor: Hayden Cartagena MD Ketones Ql (U) Negative Normal NEG [facility] Comment on above: Performed By: #### U AMIC #### [facility] [address] [place] [address] [place], [place] 5268983 Truck Driver Instructor: Hayden Cartagena MD Leukocyte esterase Test strip Ql (U) Negative Normal NEG [facility] Comment on above: Performed By: #### U AMIC #### [facility] [address] [place], [place] 2638083 Truck Driver Instructor: Hayden Cartagena MD Nitrite,Ur Negative Normal NEG [facility] Comment on above: Performed By: #### U AMIC #### [facility] [address] [place], [place] 1928683 Truck Driver Instructor: Hayden Cartagena MD PH,Ur 6.0 Normal 5.0-9.0 [facility] Comment on above: Performed By: #### U AMIC #### [facility] [address] [place], [place] 1312083 Truck Driver Instructor: Hayden Cartagena MD Protein Ql (U) Negative Normal NEG [facility] Comment on above: Performed By: #### U AMIC #### [facility] [address] [place] [address] Truck Driver Instructor: Hayden Cartagena MD Spec. [place],Ur 1.010 Normal 1.010-1.020 [facility] Comment on above: Performed By: #### U AMIC #### [facility] [address] [place] 2063183 Truck Driver Instructor: Hayden Cartagena MD Urine RBC's None Normal 0-2 [facility] Comment on above: Performed By: #### U AMIC #### [address] [place] [phone] Truck Driver Instructor: Hayden Cartagena MD Urine WBC's None Normal 0-5 [facility] Comment on above: Performed By: #### U AMIC #### [facility] [address] [place] [address] Dr. [place], [place] [id number] Truck Driver Instructor: Hayden Cartagena MD Urobilinogen,Ur Normal Normal 0.0-1.0 [facility] Comment on above: Performed By: #### U AMIC #### [address] [place], [place] [phone] Truck Driver Instructor: Hayden Cartagena MD Cult,Urineon 05-03-2023 Cult,Urine Specimen [...] Tobramycin <=1 SUSCEPTIBLE Trimethoprim/Sulfa <=20 SUSCEPTIBLE Susceptible [facility] Comment on above: Performed By: #### U RC #### [address] [place] [address] Truck Driver Instructor: Claude Gonzalez MD [facility] [address] [place] [address] Dr[place], [place] [phone] Truck Driver Instructor: Hayden Cartagena MD HIV Ag/Abon 05-02-2023 HIV Ag/Ab Non-Reactive Normal [facility] Comment on above: Result Comment: No l aboratory evidence of HIV infection. If acute HIV infection is suspected, consider testing for HIV-1 RNA. Performed By: #### U RC #### [address] [address] Truck Driver Instructor: Claude Gonzalez MD [address] [place] [address] Truck Driver Instructor: Hayden Cartagena MD T.pallidum Ab Screenon 05-01 T.pallidum Ab Screen Non-Reactive Normal NR [facility] Comment on above: Result Comment: T. pallidum antibodies are not detected. There is no serological evidence of infection with T. pallidum (early primary syphilis cannot be excluded). Retest in 2-4 weeks if syphilis is clinically suspect. Performed By: #### U RC #### [address] [address] [employer] Driver Instructor: Claude Gonzalez MD [facility] [address] [place] [address] [place] [address] Truck Driver Instructor: Hayden Cartagena MD CBC with Auto Differentialon 05-01-2023 Basophils (Bld) [#/Vol] 0.03 10*3/uL [facility] Basophils/100 WBC (Bld) 0 % 0 - 2 % [facility] Eosinophils (Bld) [#/Vol] [facility] Eosinophils/100 WBC (Bld) 0 % Low 1 - 4 % [facility] Erythrocyte distribution width (RBC) [Ratio] 12.2 % 11.8 - 14.4 % [facility] Hematocrit (Bld) [Volume fraction] 36.2 % Low 36.3 - 47.1 % [facility] Hemoglobin (Bld) [Mass/Vol] 12.1 g/dL 11.9 - 15.1 g/dL [facility] Immature granulocytes (Bld) [#/Vol] [facility] Immature granulocytes/100 WBC (Bld) 0 % 0 [facility] Interpretation and review of laboratory results Abnormal [facility] Lymphocytes/100 WBC (Bld) 19 % Low 24 - 43 % [facility] Lymphocytes/100 WBC (Bld) 1.62 % [facility] MCH (RBC) [Entitic mass] 32.1 pg 25.2 - 33.5 pg [facility] MCHC (RBC) [Mass/Vol] 33.4 g/dL 28.4 - 34.8 g/dL [facility] MCV (RBC) [Entitic vol] 96.0 fL 82.6 - 102.9 fL [facility] Monocytes/100 WBC (Bld) 6 % 3 - 12 % [facility] Monocytes/100 WBC (Bld) 0.51 % [facility] Neutrophils/100 WBC (Bld) 75 % High 36 - 65 % [facility] Nucleated RBC/100 WBC (Bld) [Ratio] 0.0 % 0.0 per 100 WBC [facility] Platelet mean volume (Bld) [Entitic vol] 10.3 fL 8.1 - 13.5 fL [facility] Platelets (Bld) [#/Vol] 201 10*3/uL [facility] RBC (Bld) [#/Vol] 3.77 10*6/uL Low 3.95 - 5.1 1 m/uL [facility] Segmented neutrophils/100 WBC (Bld) 6.24 % [facility] WBC other (Bld) [#/Vol] 8.4 B ON [facility] CBC with Diffon 05-01-2023 Abs. Basophil 0.03 k/uL Normal 0.00-0.20 [facility] Comment on above: Performed By: #### C DP #### [address] [place] [address] Truck Driver Instructor: Hayden Cartagena MD #### LISA, HIVCMB, AHCV, TREP, GLYHGB, HBS #### [address] [address] Truck Driver Instructor: Claude Gonzalez MD Abs. Eosinophil <0.03 Normal 0.00-0.44 [facility] Comment on above: Performed By: #### C DP #### [address] [place] [address] Truck Driver Instructor: Hayden Cartagena MD #### LISA, HIVCMB, AHCV, TREP, GLYHGB, HBS #### [place] [address] Truck Driver Instructor: Claude Gonzalez MD Abs.Imm.Granulocyte <0.03 Normal 0.00-0.30 [facility] Comment on above: Performed By: #### C DP #### [address] [place] [address] Truck Driver Instructor: Hayden Cartagena MD #### LISA, HIVCMB, AHCV, TREP, GLYHGB, HBS #### [place] [address] Truck Driver Instructor: Claude Gonzalez MD Abs.Neutrophil (Seg) 6.24 k/uL Normal 1.50-8.10 [facility] Comment on above: Performed By: #### C DP #### [address] [place] [phone] Truck Driver Instructor: Hayden Cartagena MD #### LISA, HIVCMB, AHCV, TREP, GLYHGB, HBS #### [place] [address] Truck Driver Instructor: Claude Gonzalez MD Basophils/100 WBC (Bld) 0 % Normal 0-2 M [facility] Comment on above: Performed By: #### C DP #### [facility] [address] [place] [address] Dr. [place] [phone] Truck Driver Instructor: Hayden Cartagena MD #### LISA, HIVCMB, AHCV, TREP, GLYHGB, HBS #### [address] [phone] Truck Driver Instructor: Claude Gonzalez MD Eosinophils/100 WBC (Bld) 0 % Low 1-4 [facility] Comment on above: Performed By: #### C DP #### [address] [place] [phone] Truck Driver Instructor: Hayden Cartagena MD #### LISA, HIVCMB, AHCV, TREP, GLYHGB, HBS #### [address] [phone] Truck Driver Instructor: Claude Gonzalez MD Erythrocyte distribution width (RBC) [Ratio] 12.2 % Normal 11.8-14.4 [facility] Comment on above: Performed By: #### C DP #### [address] [place] [phone] [employer] Driver Instructor: Hayden Cartagena MD #### LISA, HIVCMB, AHCV, TREP, GLYHGB, HBS #### [address] [phone] [employer] Driver Instructor: Claude Gonzalez MD Hematocrit (Bld) [Volume fraction] 36.2 % Low 36.3-47.1 [facility] Comment on above: Performed By: #### C DP #### [facility] [address] [place] [address] Dr. [place] [phone] [employer] Driver Instructor: Hayden Cartagena MD #### LISA, HIVCMB, AHCV, TREP, GLYHGB, HBS #### [address] [place] [address] Truck Driver Instructor: Claude Gonzalez MD Hemoglobin (Bld) [Mass/Vol] 12.1 g/dL Normal 11.9-15.1 [facility] Comment on above: Performed By: #### C DP #### [address] [place] [address] Truck Driver Instructor: Hayden Cartagena MD #### LISA, HIVCMB, AHCV, TREP, GLYHGB, HBS #### [place] [address] Truck Driver Instructor: Claude Gonzalez MD Immature granulocytes/100 WBC (Bld) 0 % Normal 0 [facility] Comment on above: Performed By: #### C DP #### [address] [place] [phone] ( Truck Driver Instructor: Hayden Cartagena MD #### LISA, HIVCMB, AHCV, TREP, GLYHGB, HBS #### [place] [address] Truck Driver Instructor: Claude Gonzalez MD Lymphocytes (Bld) [#/Vol] 1.62 10*3/uL Normal 1.10-3.70 [facility] Comment on above: Performed By: #### C DP #### [address] [place] [phone] Truck Driver Instructor: Hayden Cartagena MD #### LISA, HIVCMB, AHCV, TREP, GLYHGB, HBS #### [place] [id number] Truck Driver Instructor: Claude Gonzalez MD Lymphocytes/100 WBC (Bld) 19 % Low 24-43 [facility] Comment on above: Performed By: #### C DP #### [address] [place] [phone] Truck Driver Instructor: Hayden Cartagena MD #### LISA, HIVCMB, AHCV, TREP, GLYHGB, HBS #### [address] [id number] Truck Driver Instructor: Claude Gonzalez MD MCH (RBC) [Entitic mass] 32.1 pg Normal 25.2-33.5 [facility] Comment on above: Performed By: #### C DP #### [address] [place] [phone] Truck Driver Instructor: Hayden Cartagena MD #### LISA, HIVCMB, AHCV, TREP, GLYHGB, HBS #### [place] [id number] Truck Driver Instructor: Claude Gonzalez MD MCHC (RBC) [Mass/Vol] 33.4 g/dL Normal 28.4-34.8 [facility] Comment on above: Performed By: #### C DP #### [address] [place] [phone] Truck Driver Instructor: Hayden Cartagena MD #### LISA, HIVCMB, AHCV, TREP, GLYHGB, HBS #### [place] [id number] Truck Driver Instructor: Claude Gonzalez MD MCV (RBC) [Entitic vol] 96.0 fL Normal 82.6-102.9 M [facility] Comment on above: Performed By: #### C DP #### [address] [place] [phone] Truck Driver Instructor: Hayden Cartagena MD #### LISA, HIVCMB, AHCV, TREP, GLYHGB, HBS #### [address] [phone] Truck Driver Instructor: Claude Gonzalez MD Monocytes (Bld) [#/Vol] 0.51 10*3/uL Normal 0.10-1.20 [facility] Comment on above: Performed By: #### C DP #### [facility] [address] [place] [address] Dr. [place] [phone] Truck Driver Instructor: Hayden Cartagena MD #### LISA, HIVCMB, AHCV, TREP, GLYHGB, HBS #### [address] [phone] [employer] Driver Instructor: Claude Gonzalez MD Monocytes/100 WBC (Bld) 6 % Normal 3-12 M [facility] Comment on above: Performed By: #### C DP #### [address] [place] [phone] Truck Driver Instructor: Hayden Cartagena MD #### LISA, HIVCMB, AHCV, TREP, GLYHGB, HBS #### [place] [id number] Truck Driver Instructor: Claude Gonzalez MD Neutrophil (Seg) 75 % High 36-65 [facility] Comment on above: Performed By: #### C DP #### [address] [place] [phone] Truck Driver Instructor: Hayden Cartagena MD #### LISA, HIVCMB, AHCV, TREP, GLYHGB, HBS #### [place] [id number] Truck Driver Instructor: Claude Gonzalez MD NRBC Automated 0.0 per 100 WBC Normal 0.0 [facility] Comment on above: Performed By: #### C DP #### [facility] [address] [place] [address] Dr. [place] [phone] Truck Driver Instructor: Hayden Cartagena MD #### LISA, HIVCMB, AHCV, TREP, GLYHGB, HBS #### [address] [address] Truck Driver Instructor: Claude Gonzalez MD Platelet mean volume (Bld) [Entitic vol] 10.3 fL Normal 8.1-13.5 [facility] Comment on above: Performed By: #### C DP #### [address] [place] [phone] Truck Driver Instructor: Hayden Cartagena MD #### LISA, HIVCMB, AHCV, TREP, GLYHGB, HBS #### [address] [place] [address] Truck Driver Instructor: Claude Gonzalez MD Platelets (Bld) [#/Vol] 201 10*3/uL Normal 138-453 [facility] Comment on above: Performed By: #### C DP #### [address] [place] [phone] Truck Driver Instructor: Hayden Cartagena MD #### LISA, HIVCMB, AHCV, TREP, GLYHGB, HBS #### [address] [address] Truck Driver Instructor: Claude Gonzalez MD RBC (Bld) [#/Vol] 3.77 10*6/uL Low 3.95-5.11 [facility] Comment on above: Performed By: #### C DP #### [address] [place] [phone] Truck Driver Instructor: Hayden Cartagena MD #### LISA, HIVCMB, AHCV, TREP, GLYHGB, HBS #### [address] [address] Truck Driver Instructor: Claude Gonzalez MD WBC (Bld) [#/Vol] 8.4 10*3/uL Normal 3.5-11.3 [facility] Comment on above: Performed By: #### C DP #### [address] [place] [phone] Truck Driver Instructor: Hayden Cartagena MD #### LISA, HIVCMB, AHCV, TREP, GLYHGB, HBS #### [address] [place] [address] Truck Driver Instructor: Claude Gonzalez MD Hemoglobin A1Con 05-01-2023 Average glucose Estimated from glycated hemoglobin (Bld) [Mass/Vol] 85 mg/dL [facility] Comment on above: The ADA and AACC rec ommend providing the estimated average glucose result to permit better patient understanding of their HBA1c result. HbA1c (Bld) [Mass fraction] 4.6 % 4.0 - 6.0 % [facility] Glucose [Mass/Vol] 85 mg/dL Normal [facility] Comment on above: Result Comment: The ADA and AACC recommend providing the estimated average glucose result to permit better patient understanding of their HBA1c result. Performed By: #### U RC #### [address] [address] Truck Driver Instructor: Claude Gonzalez MD [address] [place], [place] [phone] Truck Driver Instructor: Hayden Cartagena MD HbA1c (Bld) [Mass fraction] 4.6 % Normal 4.0-6.0 [facility] Comment on above: Performed By: #### U RC #### [address] [address] Truck Driver Instructor: Claude Gonzalez MD [address] [place], [place] [phone] Truck Driver Instructor: Hayden Cartagena MD Hep B Surf Agon 9 Hep B Surf Ag Non-Reactive Normal NR [facility] Comment on above: Performed By: #### U RC #### [address] [address] Truck Driver Instructor: Claude Gonzalez MD [address] [place] [address] Truck Driver Instructor: Hayden Cartagena MD Hep C Abon 05-01-2023 Hep C Ab Non-Reactive Normal NR [facility] Comment on above: Result Comment: The hepatitis [...] PCR. Performed By: #### C DP #### [facility] [address] [place] [address] [place] [address] Truck Driver Instructor: Hayden Cartagena MD #### LISA, HIVCMB, AHCV, TREP, GLYHGB, HBS #### [facility] [address] [place] [address] Truck Driver Instructor: Claude Gonzalez MD Hepatitis B Surface Antigeno n 05-01-2023 HBV surface Ag IA Ql Non-Reactive NONREACTIVE [facility] Hepatitis C Antibodyon 04-30 HCV Ab IA Ql Non-Reactive NONREACTIVE [facility] Comment on above: The hepatitis [...] RNA by PCR. No Panel Informationon 04-30 [facility] Rubella Ab, IgGon 05-01-2023 Rubella Ab, IgG >500.0 Normal [facility] Comment on above: Result Comment: REFERENCE RANGE: <5.0 NON-REACTIVE (non-immune) 5.0 TO 9.9 EQUIVOCAL >=10.0 REACTIVE (immune) Performed By: #### U RC #### [facility] [address] [place], [place] [phone] Truck Driver Instructor: Claude Gonzalez MD [facility] [address] [place] [address] [place] [address] Truck Driver Instructor: Hayden Cartagena MD Rubella antibody, IgGon Rubella virus IgG IA Ql IU/mL [facility] Comment on above: REFERENCE RANGE: <5.0 NON-REACTIVE (non-immune) 5.0 TO 9.9 EQUIVOCAL >=10.0 REACTIVE (immune) [facility] TYPE AND SCREENon 05-01-2023 ABO and Rh group Nom (Bld) Blood group O Rh(D) negative [facility] Blood Bank Sample Expiration 05/04/2023,2359 [facility] Blood group antibodies identified Nom Negative [facility] Type + Screenon 05-01-2023 Type + Screen Sample Expiration 05/04/2023,2359 ABO/Rh(D) O NEGATIVE Antibody Screen NEGATIVE Normal [facility] Comment on above: Performed By: #### T YS #### [facility] [address] [place] [address] [place] [address] Truck Driver Instructor: Hayden Cartagena MD CBC with Auto Differentialon 08-03-2022 Basophils (Bld) [#/Vol] 0.04 10*3/uL [facility] Basophils/100 WBC (Bld) 0 % 0 - 2 % B [facility] Eosinophils (Bld) [#/Vol] [facility] Eosinophils/100 WBC (Bld) 0 % Low 1 - 4 % [facility] Erythrocyte distribution width (RBC) [Ratio] 12.2 % 11.8 - 14.4 % [facility] Hematocrit (Bld) [Volume fraction] 39.4 % 36.3 - 47.1 % [facility] Hemoglobin (Bld) [Mass/Vol] 13.2 g/dL 11.9 - 15.1 g/dL [facility] Immature granulocytes (Bld) [#/Vol] [facility] Immature granulocytes/100 WBC (Bld) 0 % 0 [facility] Interpretation and review of laboratory results Abnormal [facility] Lymphocytes/100 WBC (Bld) 17 % Low 24 - 43 % [facility] Lymphocytes/100 WBC (Bld) 1.86 % [facility] MCH (RBC) [Entitic mass] 32.1 pg 25.2 - 33.5 pg [facility] MCHC (RBC) [Mass/Vol] 33.5 g/dL 28.4 - 34.8 g/dL [facility] MCV (RBC) [Entitic vol] 95.9 fL 82.6 - 102.9 fL [facility] Monocytes/100 WBC (Bld) 4 % 3 - 12 % [facility] Monocytes/100 WBC (Bld) 0.42 % [facility] Neutrophils/100 WBC (Bld) 79 % High 36 - 65 % [facility] NRBC Automated 0.0 0.0 per 100 WBC [facility] Platelet mean volume (Bld) [Entitic vol] 10.5 fL 8.1 - 13.5 fL [facility] Platelets (Bld) [#/Vol] 213 10*3/uL [facility] RBC (Bld) [#/Vol] 4.11 10*6/uL 3.95 - 5.1 1 m/uL [facility] Segmented neutrophils/100 WBC (Bld) 8.49 % High [facility] WBC other (Bld) [#/Vol] 10.8 B [facility] CMPon 08-03-2022 Albumin [Mass/Vol] 4.6 g/dL 3.5 - 5.2 g/dL [facility] Albumin/Globulin [Mass ratio] 1.5 {ratio} 1.0 - 2.5 [facility] ALP [Catalytic activity/Vol] 79 U/L 35 - 104 U/L [facility] ALT [Catalytic activity/Vol] 9 U/L 5 - 33 U/L [facility] Anion gap [Moles/Vol] 11 mmol/L 9 - 17 mmol/L [facility] AST [Catalytic activity/Vol] 13 U/L NINF - 32 U/L [facility] Bilirubin [Mass/Vol] 1.1 mg/dL 0.3 - 1 .2 mg/dL [facility] Calcium [Mass/Vol] 10.0 mg/dL 8.6 - 10. 4 mg/dL [facility] Chloride [Moles/Vol] 104 mmol/L 98 - 10 7 mmol/L [facility] CO2 [Moles/Vol] 26 mmol/L 20 - 31 mmol/L [facility] Creatinine [Mass/Vol] 0.68 mg/dL 0.50 - 0.90 mg/dL [facility] GFR/1.73 sq M.predicted MDRD (S/P/Bld) [Vol rate/Area] - PINF [facility] Comment on above: These results [...] [Mass/Vol] 90 mg/dL 70 - 99 mg/dL [facility] Interpretation and review of laboratory results Abnormal [facility] Potassium [Moles/Vol] 3.4 mmol/L Low 3.7 - 5.3 mmol/L [facility] Protein [Mass/Vol] 7.7 g/dL 6.4 - 8.3 g/dL [facility] Sodium [Moles/Vol] 141 mmol/L 135 - 144 mmol/L [facility] Urea nitrogen [Mass/Vol] 6 mg/dL 6 - 20 mg/dL [facility] Urea nitrogen/Creatinine [Mass ratio] 9 mg/mg 9 - [address] [facility] CT ABDOMEN PELVIS WO CONTRAS [...] urinary tract calculi. 3. No bowel obstruction. [email or web address] Work Phone: Radiology Study observation (narrative) [employer] Work Phone: CT ABDOMEN PELVIS WO CONTRAS T Additional Contrast? NoneOrdered By: Cody Gregg on 08-03-2022 [email or web address] Work Phone: Microscopic Urinalysison Bacteria LM Ql (Urine sed) 4+ Abnormal None [email or web address] Epithelial cells LM.HPF (Urine sed) [#/Area] 10 TO 20 [email or web address] Interpretation and review of laboratory results Abnormal [email or web address] RBC LM.HPF (Urine sed) [#/Area] 10 TO 20 [email or web address] WBC LM.HPF (Urine sed) [#/Area] 20 TO 50 [facility] Urinalysis with Reflex to Cu ltureon 08-03-2022 Bilirubin Ql (U) Negative NEGATIVE [employer] Clarity (U) Cloudy Abnormal Clear [email or web address] Color (U) Yellow Yellow [employer] [facility] Glucose Test strip (U) [Mass/Vol] Negative NEGATIVE [employer] [facility] Hemoglobin Auto test strip Ql (U) 3+ Abnormal NEGATIVE [email or web address] Interpretation and review of laboratory results Abnormal [email or web address] Ketones (U) [Mass/Vol] Negative NEGATIVE [employer] Leukocyte esterase Test strip Ql (U) SMALL Abnormal NEGATIVE [email or web address] Nitrite Ql (U) Positive Abnormal NEGATIVE [employer] pH (U) 6.0 [pH] 5.0 - 9.0 [email or web address] Protein (U) [Mass/Vol] 2+ Abnormal NEGATIVE [employer] Specific gravity (U) [Rel density] 1.025 High 1.010 - 1.020 [facility] Urobilinogen Qn (U) Normal Normal [facility] hCG, quantitative, on 08-03-2022 hCG Quant NINF [facility] Comment on above: Non-preg premeno <=5 Postmeno <=8 Male <=3 If HCG results do not concur with clinical observations, additional testing to confirm results is recommended. [facility] JASMINA DIGITAL DIAGNOSTIC BILATERALon 06-03-2022 Radiology Study observation (narrative) [facility] Work Phone: No Panel Informationon 06-03 1. Negative bilateral mammogram. 2. No evidence for a discrete abscess or cellulitis in the periareolar right breast, for which clinical follow-up is recommended. BI-RADS 2 BIRADS: BIRADS - CATEGORY 2 Benign Findings. OVERALL ASSESSMENT - BENIGN A letter of notification will be sent to the patient regarding the results. [employer] recommends annual mammograms for women 40 years and older. [facility] RIS CONSOLIDATED EXAMINATION: DIAGNOSTIC DIGITAL BILATERAL [...] InformationOrdered By: Matt Sharma on 06-03-2022 [facility] [employer] Work Phone: US BREAST LIMITED RIGHTon Radiology Study observation (narrative) [facility] [employer] Work Phone: CBC with Auto Differentialon 04-24-2022 Absolute Eos # [facility] Absolute Immature Granulocyte 0.05 [facility] Absolute Lymph # 0.56 Low [facility] Absolute [place] # 0.78 [facility] Basophils (Bld) [#/Vol] 0.04 10*3/uL [facility] Basophils/100 WBC (Bld) 0 % 0 - 2 % B ON [facility] Eosinophils/100 WBC (Bld) 0 % Low 1 - 4 % [facility] Hematocrit (Bld) [Volume fraction] 43.7 % 36.3 - 47.1 % [facility] Hemoglobin (Bld) [Mass/Vol] 15.6 g/dL High 11.9 - 15.1 g/dL [facility] Immature granulocytes/100 WBC (Bld) 0 % 0 [facility] Interpretation and review of laboratory results Abnormal [facility] Lymphocytes/100 WBC (Bld) 4 % Low 24 - 43 % [facility] MCH (RBC) [Entitic mass] 33.1 pg 25.2 - 33.5 pg [facility] MCHC (RBC) [Mass/Vol] 35.7 g/dL High 28.4 - 34.8 g/dL [facility] MCV (RBC) [Entitic vol] 92.8 fL 82.6 - 102.9 fL [facility] Monocytes/100 WBC (Bld) 5 % 3 - 12 % B ON [facility] NRBC Automated 0.0 0.0 per 100 WBC [facility] Platelet distribution width (Bld) [Ratio] 12.3 % 11.8 - 14.4 % [facility] Platelet mean volume (Bld) [Entitic vol] 10.5 fL 8.1 - 13.5 fL [facility] Platelets (Bld) [#/Vol] 174 10*3/uL [facility] RBC (Bld) [#/Vol] 4.71 10*6/uL 3.95 - 5.1 1 m/uL [facility] Segmented neutrophils/100 WBC (Bld) 91 % High 36 - 65 % [facility] Segs Absolute 13.82 High [facility] WBC (Bld) [#/Vol] 15.3 10*3/uL High [facility] CMPon 04-24-2022 Albumin [Mass/Vol] 4.8 g/dL 3.5 - 5.2 g/dL [facility] Albumin/Globulin [Mass ratio] 1.6 {ratio} 1.0 - 2.5 [facility] ALP [Catalytic activity/Vol] 87 U/L 35 - 104 U/L [facility] ALT [Catalytic activity/Vol] 19 U/L 5 - 33 U/L [facility] Anion gap [Moles/Vol] 17 mmol/L 9 - 17 mmol/L [facility] AST [Catalytic activity/Vol] 23 U/L NINF - 32 U/L [facility] Bilirubin [Mass/Vol] 1.0 mg/dL 0.3 - 1 .2 mg/dL [facility] Calcium [Mass/Vol] 10.4 mg/dL 8.6 - 10. 4 mg/dL [facility] Chloride [Moles/Vol] 105 mmol/L 98 - 10 7 mmol/L [facility] CO2 [Moles/Vol] 19 mmol/L Low 20 - 31 mmol/L [facility] Creatinine [Mass/Vol] 0.84 mg/dL 0.50 - 0.90 mg/dL [facility] GFR/1.73 sq M.predicted MDRD (S/P/Bld) [Vol rate/Area] - PINF [facility] Comment on above: These results [...] 151 mg/dL High 70 - 99 mg/dL [facility] Interpretation and review of laboratory results Abnormal [facility] Potassium [Moles/Vol] 3.9 mmol/L 3.7 - 5.3 mmol/L [facility] Protein [Mass/Vol] 7.8 g/dL 6.4 - 8.3 g/dL [facility] Sodium [Moles/Vol] 141 mmol/L 135 - 144 mmol/L [facility] Urea nitrogen [Mass/Vol] 9 mg/dL 6 - 20 mg/dL [facility] Urea nitrogen/Creatinine (Bld) [Mass ratio] 11 9 - 20 [facility] ABDOMEN PELVIS W IV CONTR AST [...] pathologic adenopathy. Bones/Soft Tissues: No acute abnormality [facility] Rogelio Huang MD - 04/24/2022 [...] Otherwise, no acute intra-abdominal or pelvic abnormality [email or web address] Work Phone: Radiology Study observation (narrative) [employer] Work Phone: CT ABDOMEN PELVIS W IV CONTR AST Additional Contrast? NoneOrdered By: Rogelio Lima on 04-24-2022 [email or web address] Work Phone: Lactic Acidon 04-24-2022 Lactate (P samantha) [Moles/Vol] 2.1 mmol/L 0.5 - 2.2 mmol/L [facility] Lipaseon 04-24-2022 Lipase [Catalytic activity/Vol] 24 U/L 13 - 60 U/L [facility] Microscopic Urinalysison Bacteria, UA 1+ Abnormal None [facility] Epithelial Cells UA 5 TO 10 [facility] Interpretation and review of laboratory results Abnormal [facility] Mucus, UA 1+ Abnormal None [facility] RBC clumps Auto (Urine sed) [#/Area] None [facility] WBC, UA 0 TO 2 [facility] No Panel Informationon 04-24 [facility] Urinalysison 04-24-2022 Bilirubin Urine Negative NEGATIVE [facility] Color, UA Yellow Yellow [facility] Glucose Auto test strip (U) [Mass/Vol] Negative NEGATIVE [facility] Interpretation and review of laboratory results Abnormal [facility] Ketones (U) [Mass/Vol] 2+ Abnormal NEGATIVE [facility] Leukocyte esterase Auto test strip Ql (U) Negative NEGATIVE [facility] Nitrite Auto test strip Ql (U) Negative NEGATIVE [facility] Protein (U) [Mass/Vol] 5.0 - 9.0 [facility] Protein (U) [Mass/Vol] Negative NEGATIVE [facility] Specific [place], UA 1.010 1.010 - 1.020 B ON [facility] Turbidity UA SLIGHTLY CLOUDY Abnormal Clear [facility] Urine Hgb Negative NEGATIVE [facility] Urobilinogen, Urine Normal Normal [facility] , urineon 3 Beta HCG ( test) Ql (U) Negative NEGATIVE [facility] Comment on above: Specimens with hCG l evels near the threshold of the test (25 mIU/mL) may give a negative or indeterminate result. In such cases, another test should be performed with a new specimen in 48-72 hours. If early is suspected clinically in this setting, correlation with quantitative serum b-hCG level is suggested. [employer] has confirmed the use of plasma for this test. This has not been cleared or approved by the U.S. Food and Drug Administration. The FDA has determined that such clearance is not necessary. [facility] Cholesterol [Mass/volume] in Serum or PlasmaOrdered By: Feliberto Faust on 10-27-2021 Cholesterol [Mass/Vol] 102 mg/dL 140-200 [facility] Comment on above: Chol less than 200 m g/dl low risk Chol 201-239 mg/dl borderline risk Chol 240 mg/dl and greater high risk Cholesterol in LDL Calc [Mas s/Vol]Ordered By: Feliberto Faust on 10-27-2021 Cholesterol in LDL [Mass/Vol] 58 mg/dL 0-100 [facility] Comment on above: LDL ATP III CLASSIFI CATION LDL less than 100 mg/dL Optimal LDL 100-129 mg/dL Near or above optimal LDL 130-159 mg/dL Borderline high LDL 160-189 mg/dL High LDL greater than 189 mg/dL Very high Cholesterol in VLDL Calc [Ma ss/Vol]Ordered By: Feliberto Faust on 10-27-2021 Cholesterol in VLDL [Mass/Vol] 13 mg/dL [facility] ECG 12 lead ECGon 10-27-2021 ECG 12 lead ECG [facility] [place] [address] Electrocardiograph Report Signed Patient: Bennett Vaughn MR#: [id number] 7 : 1995 Acct:[id number] Age/Sex: 26 / F ADM Date: 10/26/21 Loc: Room: [address] [place] [id number] Type: DIS IN Attending Dr: Feliberto Faust [...] : 416 ms Sinus bradycardia with short [place] Otherwise normal ECG When compared with ECG of 10-APR-2019 09:44, Vent. rate has decreased BY 29 BPM Confirmed by PAYAM LIVINGSTON DO ([id number]) on 10/27/2021 1:03:16 PM Referred By: Electronically Signed By:PAYAM LIVINGSTON DO Transcribed By: MUS Signed By Payam Livingston DO 10/27 1303 Normal [facility] Lipid Panelon 10-27-2021 Cholesterol [Mass/Vol] 102 mg/dL Low 140-200 [facility] Comment on above: Result Comment: Chol less than 200 mg/dl low risk Chol 201-239 mg/dl borderline risk Chol 240 mg/dl and greater high risk Performed By: #### L IPID, TSH3 wRFLX, [id number] #### [facility] [address] [id number] [facility] Cholesterol in HDL [Mass/Vol] 30 mg/dL Low 35-85 [facility] Comment on above: Result Comment: HDL CHOL ATP-III CLASSIFICATION Cardiovascular Risk HDL > or equal to 60 mg/dL LOW HDL < 40 mg/dL HIGH Performed By: #### L IPID, TSH3 wRFLX, [id number] #### [facility] [address] [id number] [facility] Cholesterol.total/Fanny sterol in HDL [Mass ratio] 3.4 {ratio} Normal <5.0 [facility] Comment on above: Performed By: #### L IPID, TSH3 wRFLX, [id number] #### [facility] [address] [place] [address] [place] LDL Cholesterol,Calculated 58 mg/dL Normal 0-100 [facility] Comment on above: Result Comment: LDL ATP III CLASSIFICATION LDL less than 100 mg/dL Optimal LDL 100-129 mg/dL Near or above optimal LDL 130-159 mg/dL Borderline high LDL 160-189 mg/dL High LDL greater than 189 mg/dL Very high Performed By: #### L IPID, TSH3 wRFLX, [id number] #### [facility] [address] [place] [address] [place] Triglyceride w/Reflex 68 mg/dL Normal 35-149 [facility] Comment on above: Result Comment: TRIG ATP III CLASSIFICATION TRIG less than 150 mg/dL Normal TRIG 150-199 mg/dL Borderline high TRIG 200-500 mg/dL High TRIG greater than 500 mg/dL Very high Standard traceable to the Center for Disease Conrtrol and Prevention (CDC) test method. Performed By: #### L IPID, TSH3 wRFLX, [id number] #### [facility] [address] VLDL CHOLESTEROL 13 mg/dL Normal [facility] Comment on above: Performed By: #### L IPID, TSH3 wRFLX, [id number] #### [facility] [address] No Panel InformationOrdered By: Feliberto Faust on 10-27-2021 25-Hydroxy Vitamin D Total 36.4 ng/mL 30-100 [facility] Comment on above: VITAMIN D STATUS [...] Cholesterol in HDL [Mass/Vol] 30 mg/dL 35-85 [facility] Comment on above: HDL CHOL ATP-III CLA SSIFICATION Cardiovascular Risk HDL > or equal to 60 mg/dL LOW HDL < 40 mg/dL HIGH Serum or plasma total choles terol/high density lipoprotein (HDL) cholesterol mass ratOrdered By: Feliberto Faust on 10-27-2021 Cholesterol.total/Fanny sterol in HDL [Mass ratio] 3.4 {ratio} <5.0 [facility] TSH DL <= 0.005 mIU/L QnOrde red By: Feliberto Faust on 10-27-2021 TSH Qn 1.28 m[IU]/L 0.45-5.33 [facility] Thyroid Stim Hormone w/Rflxo n 10-27-2021 Thyroid Stim Hormone w/Rflx 1.28 u[iU]/mL Normal 0.45-5.33 [facility] Comment on above: Performed By: #### L IPID, TSH3 wRFLX, [id number] #### [facility] [address] [id number] [facility] Triglyceride [Mass/volume] i n Serum or PlasmaOrdered By: Feliberto Faust on 10-27-2021 Triglyceride [Mass/Vol] 68 mg/dL 35-149 [facility] Comment on above: TRIG ATP III CLASSIF ICATION TRIG less than 150 mg/dL Normal TRIG 150-199 mg/dL Borderline high TRIG 200-500 mg/dL High TRIG greater than 500 mg/dL Very high Standard traceable to the Center for Disease Conrtrol and Prevention (CDC) test method. Vitamin D 25 Hydroxy Totalon 10-27-2021 Vitamin D 25 Hydroxy Total 36.4 ng/mL Normal 30-100 [facility] Comment on above: Result Comment: KELSEY MIN D STATUS 25(OH)VITAMIN D RANGE (ng/mL) Deficient <20 Insufficient 20 to <30 Sufficient 30 to 100 Reference: Kath MF,Ramón NC, Teetee DAVIS, et al. Evaluation,treatment, and prevention of vitamin D deficiency; an Endocrine Society clinical practice guideline. JCEM. 2010; 96(7):1911-30. PERFORMED BY: [place] [address] PATHOLOGIST RN ON SITE JAMES MCNAIR M.D. Performed By: #### C BC, ETOH, CMP #### [facility] [address] [id number] [facility] Albumin [Mass/volume] in Ser um or PlasmaOrdered By: Ed Amaral on 10-26-2021 Albumin [Mass/Vol] 4.0 g/dL 3.2-5.5 [facility] Amphetamine Screen Ql (U)Ord ered By: Ed Amaral on 10-26-2021 Amphetamines Ql (U) Negative Negative [facility] Automated erythrocytes count in urine sediment (number/area)Ordered By: Ed Amaral on 10-26-2021 RBC Auto (Urine sed) [#/Area] 0-1 [HPF] 0-4 [facility] Automated leukocytes count i n urine sediment (number/area)Ordered By: Ed Amaral on 10-26-2021 WBC Auto (Urine sed) [#/Area] 1-2 [HPF] 0-4 [facility] Automated urine color determ inationOrdered By: Ed Amaral on 10-26-2021 Color (U) Yellow Normal Yellow [facility] Comment on above: Order Comment: Name Collection Type:: Clean-Voided Midstream Performed By: #### S OFIANEG, URDS, ADDONUAPLUS, UHCG, COVID-19 FELI #### [facility] [address] Barbiturates [Presence] in U rineOrdered By: Ed Amaral on 10-26-2021 Barbiturates Ql (U) Negative Negative [facility] Basophils Auto (Bld) [#/Vol] Ordered By: Ed Amaral on 10-26-2021 Basophils (Bld) [#/Vol] 0.1 10*3/uL 0.0-0.2 [facility] Basophils/100 WBC Auto (Bld) Ordered By: Ed Amaral on 10-26-2021 Basophils/100 WBC (Bld) 0.8 % . [facility] Benzodiazepines [Presence] i n UrineOrdered By: Ed Amaral on 10-26-2021 Benzodiazepines Ql (U) Negative Negative [facility] Bilirubin Test strip Ql (U)O rdered By: Ed Amaral on 10-26-2021 Bilirubin Ql (U) Negative Negative [facility] Blood hemoglobin measurement (mass/volume)Ordered By: Ed Amaral on 10-26-2021 Hemoglobin (Bld) [Mass/Vol] 13.3 g/dL 11.8-15.4 [facility] Blood leukocytes automated c ount (number/volume)Ordered By: Ed Amaral on 10-26-2021 WBC (Bld) [#/Vol] 10.2 10*3/uL 4.5-11.0 [facility] COVID-19 Antigenon 2 COVID-19 Antigen Healthcare [...] developed and its performance characteristic determined by [employer] and validated at [facility]. This test has not been FDA [...] for SARS Antigen by ERNESTO PERFORMED BY: [place] [address] PATHOLOGIST RN ON SITE JAMES MCNAIR M.D. [facility] Comment on above: Performed By: #### S BALJINDER HOBSON, ADDONUAPLUS, UHCG, COVID-19 FELI #### [facility] [address] COVID-19 SOFIAOrdered By: Archie Amaral on 10-26-2021 SARS-CoV+SARS-CoV-2 (COVID-19) Ag IA.rapid Ql (Resp) Negative Negative [facility] Comment on above: This is a duplicate Feli SARS Antigen (ERNESTO) result to be used for statistical tracking purpose only. Cannabinoids [Presence] in U rine by Screen methodOrdered By: Ed Amaral on 10-26-2021 Cannabinoids Screen Ql (U) Positive Negative [facility] Comment on above: These are unconfirme d results and should not be used for legal purposes. Drug Cut-Off Concentration: AMPH 1000 ng/mL SANCHEZ 200 ng/mL RENZO 200 ng/mL COCM 300 ng/mL OP 300 ng/mL PCP 25 ng/mL THC 20 ng/mL Complete Blood Count Auto Di ffon 10-26-2021 Basophils (Bld) [#/Vol] 0.1 10*3/uL Normal 0.0-0.2 [facility] Comment on above: Result Comment: PERF ORMED BY: [place] [address] PATHOLOGIST RN ON SITE JAMES MCNAIR M.D. Performed By: #### C BC, ETOH, CMP #### [address] Basophils/100 WBC (Bld) 0.8 % Normal . [facility] Comment on above: Performed By: #### C BC, ETOH, CMP #### [address] Eosinophils (Bld) [#/Vol] 0.2 10*3/uL Normal 0.0-0.45 [facility] Comment on above: Performed By: #### C BC, ETOH, CMP #### [address] Eosinophils/100 WBC (Bld) 1.9 % Normal . [facility] Comment on above: Performed By: #### C BC, ETOH, CMP #### [address] Erythrocyte distribution width (RBC) [Ratio] 13.0 % Normal 11.9-15.3 [facility] Comment on above: Performed By: #### C BC, ETOH, CMP #### [address] Hematocrit (Bld) [Volume fraction] 39.1 % Normal 34.0-46.4 [facility] Comment on above: Performed By: #### C BC, ETOH, CMP #### [facility] [address] [place] [address] [place] Hemoglobin (Bld) [Mass/Vol] 13.3 g/dL Normal 11.8-15.4 [facility] Comment on above: Performed By: #### C BC, ETOH, CMP #### [facility] [address] Lymphocytes (Bld) [#/Vol] 2.2 10*3/uL Normal 1.00-4.8 [facility] Comment on above: Performed By: #### C BC, ETOH, CMP #### [facility] [address] Lymphocytes/100 WBC (Bld) 21.5 % Normal . [facility] Comment on above: Performed By: #### C BC, ETOH, CMP #### [facility] [address] MCH (RBC) [Entitic mass] 32.9 pg Normal 24.7-34.3 [facility] Comment on above: Performed By: #### C BC, ETOH, CMP #### [facility] [address] [place] [address] [place] MCV (RBC) [Entitic vol] 96.5 fL Normal 80-100 [facility] Comment on above: Performed By: #### C BC, ETOH, CMP #### [facility] [address] Mean Corpuscular HGB Conc 34.1 g/dL Normal 32.0-35.0 [facility] Comment on above: Performed By: #### C BC, ETOH, CMP #### [facility] [address] [place] [address] [place] Monocytes (Bld) [#/Vol] 0.6 10*3/uL Normal 0.0-0.8 [facility] Comment on above: Performed By: #### C BC, ETOH, CMP #### [facility] [address] [place] [address] [place] Monocytes/100 WBC (Bld) 6.2 % Normal . [facility] Comment on above: Performed By: #### C BC, ETOH, CMP #### [facility] [address] Neutrophils (Bld) [#/Vol] 7.1 10*3/uL Normal 1.8-7.7 [facility] Comment on above: Performed By: #### C BC, ETOH, CMP #### [facility] [address] Neutrophils/100 WBC (Bld) 69.6 % Normal . [facility] Comment on above: Performed By: #### C BC, ETOH, CMP #### [facility] [address] Nucleated RBC/100 WBC (Bld) [Ratio] 0.0 % Normal 0-0.5 [facility] Comment on above: Performed By: #### C BC, ETOH, CMP #### [address] Platelet mean volume (Bld) [Entitic vol] 9.0 fL Normal 6.3-10.7 [facility] Comment on above: Performed By: #### C BC, ETOH, CMP #### [facility] [address] [place] [address] [place] Platelets (Bld) [#/Vol] 173 10*3/uL Normal 150-450 [facility] Comment on above: Performed By: #### C BC, ETOH, CMP #### [facility] [address] [place] [address] [place] RBC (Bld) [#/Vol] 4.05 10*6/uL Normal 3.60-5.00 [facility] Comment on above: Performed By: #### C BC, ETOH, CMP #### [facility] [address] [place] [address] [place] WBC (Bld) [#/Vol] 10.2 10*3/uL Normal 4.5-11.0 [facility] Comment on above: Performed By: #### C BC, ETOH, CMP #### [address] Comprehensive Metabolic Pane [place] 08-30-2022 Albumin [Mass/Vol] 4.0 g/dL Normal 3.2-5.5 [facility] Comment on above: Performed By: #### C BC, ETOH, CMP #### [address] Albumin/Globulin [Mass ratio] 1.5 {ratio} Normal [facility] Comment on above: Performed By: #### C BC, ETOH, CMP #### [facility] [address] ALP [Catalytic activity/Vol] 55 U/L Normal 32-92 [facility] Comment on above: Performed By: #### C BC, ETOH, CMP #### [address] ALT [Catalytic activity/Vol] 20 U/L Normal 10-60 [facility] Comment on above: Performed By: #### C BC, ETOH, CMP #### [address] Anion gap [Moles/Vol] 10.1 mmol/L Normal 6.0-15.0 [facility] Comment on above: Performed By: #### C BC, ETOH, CMP #### [address] AST [Catalytic activity/Vol] 17 U/L Normal 10-42 [facility] Comment on above: Performed By: #### C BC, ETOH, CMP #### [address] Bilirubin [Mass/Vol] 0.4 mg/dL Normal 0.3-1.2 [facility] Comment on above: Performed By: #### C BC, ETOH, CMP #### [address] Calcium [Mass/Vol] 9.5 mg/dL Normal 8.2-10.2 [facility] Comment on above: Performed By: #### C BC, ETOH, CMP #### [place] [address] [place] Chloride [Moles/Vol] 104 mmol/L Normal 95-114 [facility] Comment on above: Performed By: #### C BC, ETOH, CMP #### [address] CO2 [Moles/Vol] 25.3 mmol/L Normal 22.0-30.0 [facility] Comment on above: Performed By: #### C BC, ETOH, CMP #### [facility] [address] Creatinine [Mass/Vol] 0.81 mg/dL Normal 0.44-1.03 [facility] Comment on above: Performed By: #### C BC, ETOH, CMP #### [address] Creatinine Clr Calc Pharmacy 97.62 [facility] Comment on above: Result Comment: PERF ORMED BY: [place] [address] PATHOLOGIST RN ON SITE JAMES MCNAIR M.D. Performed By: #### C BC, ETOH, CMP #### [address] Estimated GFR ( Nette > 60 [facility] Comment on above: Result Comment: GFR estimated reference range: According to KDOQI guidelines, <60 ml/min/1.73m2 is sufficient to diagnose a patient with chronic kidney disease. Performed By: #### C BC, ETOH, CMP #### [address] Estimated GFR (Non- Am > 60 [facility] Comment on above: Performed By: #### C BC, ETOH, CMP #### [address] Globulin (S) [Mass/Vol] 2.7 g/dL Normal [facility] Comment on above: Performed By: #### C BC, ETOH, CMP #### [facility] [address] Glucose [Mass/Vol] 98 mg/dL Normal 70-100 [facility] Comment on above: Result Comment: [place] Glucose Reference Range is dependent on time and content of last meal. Glucose of more than 200 mg/dL in a nonstressed, ambulatory subject supports the diagnosis of Diabetes Mellitus. ADA recommended reference range Performed By: #### C BC, ETOH, CMP #### [facility] [address] Potassium [Moles/Vol] 3.4 mmol/L Low 3.5-5.1 [facility] Comment on above: Performed By: #### C BC, ETOH, CMP #### [facility] [address] [place] [address] [place] Protein [Mass/Vol] 6.7 g/dL Normal 6.1-7.9 [facility] Comment on above: Performed By: #### C BC, ETOH, CMP #### [facility] [address] [place] [address] [place] Sodium [Moles/Vol] 136 mmol/L Normal 136-146 [facility] Comment on above: Performed By: #### C BC, ETOH, CMP #### [facility] [address] [place] [phone] [place] Urea nitrogen [Mass/Vol] 6 mg/dL Low 9-23 [facility] Comment on above: Performed By: #### C BC, ETOH, CMP #### [facility] [address] [phone] [place] Creatinine and Glomerular fi ltration rate.predicted panel (S/P/Bld)Ordered By: Ed Amaral on 10-26-2021 Creatinine [Mass/Vol] 0.81 mg/dL 0.44-1.03 [facility] Dipstick and Microscopicon 0 10-26-2021 Appearance (U) Clear Normal Clear [facility] Comment on above: Order Comment: Name Collection Type:: Clean-Voided Midstream Performed By: #### S OFIANEG, URDS, ADDONUAPLUS, UHCG, COVID-19 FELI #### [facility] [address] [phone] [place] Bilirubin,Urine Negative Normal Negative [facility] Comment on above: Order Comment: Name Collection Type:: Clean-Voided Midstream Performed By: #### S OFIANEG, URDS, ADDONUAPLUS, UHCG, COVID-19 FELI #### [facility] [address] Glucose Ql (U) Normal Normal Normal [facility] Comment on above: Order Comment: Name Collection Type:: Clean-Voided Midstream Performed By: #### S OFIANEG, URDS, ADDONUAPLUS, UHCG, COVID-19 FELI #### [facility] [address] [place] [address] [place] Ketones Ql (U) Negative Normal Negative [facility] Comment on above: Order Comment: Name Collection Type:: Clean-Voided Midstream Performed By: #### S OFIANEG, URDS, ADDONUAPLUS, UHCG, COVID-19 FELI #### [facility] [address] [place] [address] [place] Leukocyte esterase Test strip Ql (U) 1+ High Negative [facility] Comment on above: Order Comment: Name Collection Type:: Clean-Voided Midstream Performed By: #### S OFIANEG, URDS, ADDONUAPLUS, UHCG, COVID-19 FELI #### [facility] [address] [place] [address] [place] Nitrite,Urine Negative Normal Negative [facility] Comment on above: Order Comment: Name Collection Type:: Clean-Voided Midstream Performed By: #### S OFIANEG, URDS, ADDONUAPLUS, UHCG, COVID-19 FELI #### [facility] [address] [place] [address] [place] Occult Blood,Urine Negative Normal Negative [facility] Comment on above: Order Comment: Name Collection Type:: Clean-Voided Midstream Performed By: #### S OFIANEG, URDS, ADDONUAPLUS, UHCG, COVID-19 FELI #### [facility] [address] [place], [place] [id number] [place] Protein,Urine Negative Normal Negative [facility] Comment on above: Order Comment: Name Collection Type:: Clean-Voided Midstream Performed By: #### S OFIANEG, URDS, ADDONUAPLUS, UHCG, COVID-19 FELI #### [facility] [address] [place] [address] RBC LM.HPF (Urine sed) [#/Area] 0 /[HPF] Normal 0-4 [facility] Comment on above: Order Comment: Name Collection Type:: Clean-Voided Midstream Performed By: #### S OFIANEG, URDS, ADDONUAPLUS, UHCG, COVID-19 FELI #### [address] Specificy [place],Urine 1.005 Normal 1.001-1.030 [facility] Comment on above: Order Comment: Name Collection Type:: Clean-Voided Midstream Performed By: #### S OFIANEG, URDS, ADDONUAPLUS, UHCG, COVID-19 FELI #### [address] Squamous Epithelial Cell,Urine 1-2 Normal 0-2 [facility] Comment on above: Order Comment: Name Collection Type:: Clean-Voided Midstream Performed By: #### S OFIANEG, URDS, ADDONUAPLUS, UHCG, COVID-19 FELI #### [address] Urobilinogen,Urine Normal Normal Normal [facility] Comment on above: Order Comment: Name Collection Type:: Clean-Voided Midstream Performed By: #### S OFIANEG, URDS, ADDONUAPLUS, UHCG, COVID-19 FELI #### [facility] [address] [place] [address] WBC,Urine 1-2 Normal 0-4 [facility] Comment on above: Order Comment: Name Collection Type:: Clean-Voided Midstream Performed By: #### S OFIANEG, URDS, ADDONUAPLUS, UHCG, COVID-19 FELI #### [address] Drug Screen,Urineon 10-27-19 22 Amphetamine Screen,Urine Negative Normal Negative [facility] Comment on above: Performed By: #### S OFIANEG, URDS, ADDONUAPLUS, UHCG, COVID-19 FELI #### [address] Barbiturate Screen,Urine Negative Normal Negative [facility] Comment on above: Performed By: #### S OFIANEG, URDS, ADDONUAPLUS, UHCG, COVID-19 FELI #### [address] Benzodiazepines Screen,Urine Negative Normal Negative [facility] Comment on above: Performed By: #### S OFIANEG, URDS, ADDONUAPLUS, UHCG, COVID-19 FELI #### [address] Cannabinoid Screen,Urine Positive High Negative [facility] Comment on above: Result Comment: Thes e are unconfirmed results and should not be used for legal purposes. Drug Cut-Off Concentration: AMPH 1000 ng/mL SANCHEZ 200 ng/mL RENZO 200 ng/mL COCM 300 ng/mL OP 300 ng/mL PCP 25 ng/mL THC 20 ng/mL PERFORMED BY: [place] [address] PATHOLOGIST RN ON SITE JAMES MCNAIR M.D. Performed By: #### S OFIANEG, URDS, ADDONUAPLUS, UHCG, COVID-19 FELI #### [address] Cocaine Screen,Urine Negative Normal Negative [facility] Comment on above: Performed By: #### S OFIANEG, URDS, ADDONUAPLUS, UHCG, COVID-19 FELI #### [place] [address] [place] Opiate Screen,Urine Negative Normal Negative [facility] Comment on above: Performed By: #### S OFIANEG, URDS, ADDONUAPLUS, UHCG, COVID-19 FELI #### [facility] [address] Phencyclidine Screen,Urine Negative Normal Negative [facility] Comment on above: Performed By: #### S BALJINDER HOBSON, ADDONUAPLUS, UHCG, COVID-19 FELI #### [facility] [address] Eosinophils Auto (Bld) [#/Vo l]Ordered By: Ed Amaral on 10-26-2021 Eosinophils (Bld) [#/Vol] 0.2 10*3/uL 0.0-0.45 [facility] Eosinophils/100 WBC Auto (Bl d)Ordered By: Ed Amaral on 10-26-2021 Eosinophils/100 WBC (Bld) 1.9 % . [facility] Erythrocyte distribution wid th Auto (RBC) [Ratio]Ordered By: Ed Amaral on 10-26-2021 Erythrocyte distribution width (RBC) [Ratio] 13.0 % 11.9-15.3 [facility] Estimated glomerular filtrat ion rate (GFR) non- AmericanOrdered By: Ed Amaral on 10-26-2021 GFR/1.73 sq M.predicted among non-blacks MDRD (S/P/Bld) [Vol rate/Area] > 60 mL/Min [facility] Ethyl Alcohol Profileon 09-29 Ethanol [Mass/Vol] mg/dL Normal [facility] Comment on above: Performed By: #### C BC, ETOH, CMP #### [facility] [address] Percent Ethanol Not performed Normal [facility] Comment on above: Result Comment: PERF ORMED BY: [place] [address] PATHOLOGIST RN ON SITE JAMES MCNAIR M.D. Performed By: #### C BC, ETOH, CMP #### [facility] [address] [place] [address] Globulin Calc (S) [Mass/Vol] Ordered By: Ed Amaral on 10-26-2021 Globulin (S) [Mass/Vol] 2.7 g/dL [facility] HCG ( test) IA.rapi d Ql (U)Ordered By: Ed Amaral on 10-26-2021 HCG ( test) Ql (U) Negative [facility] HCG,Urineon 10-26-2021 Beta HCG ( test) Ql (U) Negative Normal [facility] Comment on above: Order Comment: Name Collection Type:: Clean-Voided Midstream Result Comment: PERF ORMED BY: [facility] [address] [place] [address] PATHOLOGIST RN ON SITE JAMES MCNAIR M.D. Performed By: #### S OFIANEG, URDS, ADDONUAPLUS, UHCG, COVID-19 FELI #### [address] Hematocrit Auto (Bld) [Volum e fraction]Ordered By: Ed Amaral on 10-26-2021 Hematocrit (Bld) [Volume fraction] 39.1 % 34.0-46.4 [facility] Ketones Auto test strip (U) [Mass/Vol]Ordered By: Ed Amaral on 10-26-2021 Ketones (U) [Mass/Vol] Negative Negative [facility] - Drug toxicology Ordered By: Ed Amaral on 10-26-2021 Opiates Ql (U) Negative Negative [facility] Laboratory - Hematology and Cell countsOrdered By: Ed Amaral on 10-26-2021 Nucleated RBC/100 WBC (Bld) [Ratio] 0.0 % 0-0.5 [facility] Lymphocytes Auto (Bld) [#/Vo l]Ordered By: Ed Amaral on 10-26-2021 Lymphocytes (Bld) [#/Vol] 2.2 10*3/uL 1.00-4.8 [facility] Lymphocytes/100 WBC Auto (Bl d)Ordered By: Ed Amaral on 10-26-2021 Lymphocytes/100 WBC (Bld) 21.5 % . [facility] MCH Auto (RBC) [Entitic mass ]Ordered By: Ed Amaral on 10-26-2021 MCH (RBC) [Entitic mass] 32.9 pg 24.7-34.3 [facility] MCHC Auto (RBC) [Mass/Vol]Or dered By: Ed Amaral on 10-26-2021 MCHC (RBC) [Mass/Vol] 34.1 g/dL 32.0-35.[address] [facility] MCV Auto (RBC) [Entitic vol] Ordered By: Ed Amaral on 10-26-2021 MCV (RBC) [Entitic vol] 96.5 fL 80-100 [facility] Monocytes Auto (Bld) [#/Vol] Ordered By: Ed Amaral on 10-26-2021 Monocytes (Bld) [#/Vol] 0.6 10*3/uL 0.0-0.8 [facility] Monocytes/100 WBC Auto (Bld) Ordered By: Ed Amaral on 10-26-2021 Monocytes/100 WBC (Bld) 6.2 % . [facility] Neutrophils Auto (Bld) [#/Vo l]Ordered By: Ed Amaral on 10-26-2021 Neutrophils (Bld) [#/Vol] 7.1 10*3/uL 1.8-7.7 [facility] Neutrophils/100 WBC Auto (Bl d)Ordered By: Ed Amaral on 10-26-2021 Neutrophils/100 WBC (Bld) 69.6 % . [facility] Nitrite Test strip Ql (U)Ord ered By: Ed Amaral on 10-26-2021 Nitrite Ql (U) Negative Negative [facility] No Panel InformationOrdered By: Ed Amaral on 10-26-2021 Estimated GFR () > 60 mL/Min [facility] Comment on above: GFR estimated refere nce range: According to KDOQI guidelines, <60 ml/min/1.73m2 is sufficient to diagnose a patient with chronic kidney disease. Pharmacy Creatinine Clearance (Chem 97.62 [facility] SARS Antigen (LFIA) [facility] Phencyclidine Screen Ql (U)O rdered By: Ed Amaral on 10-26-2021 Phencyclidine Ql (U) Negative Negative [facility] Platelet mean volume Auto (B ld) [Entitic vol]Ordered By: Ed Amaral on 10-26-2021 Platelet mean volume (Bld) [Entitic vol] 9.0 fL 6.3-10.7 [facility] Platelets Auto (Bld) [#/Vol] Ordered By: Ed Amaral on 10-26-2021 Platelets (Bld) [#/Vol] 173 10*3/uL 150-450 [facility] Protein Auto test strip (U) [Mass/Vol]Ordered By: Ed Amaral on 10-26-2021 Protein (U) [Mass/Vol] Negative Negative [facility] Protein [Mass/volume] in Ser um or PlasmaOrdered By: Ed Amaral on 10-26-2021 Protein [Mass/Vol] 6.7 g/dL 6.1-7.9 [facility] RBC Auto (Bld) [#/Vol]Ordere d By: Ed Amaral on 10-26-2021 RBC (Bld) [#/Vol] 4.05 10*6/uL 3.60-5.00 [facility] Serum or plasma alanine daniel otransferase measurement without P-5'-P (enzymatic activiOrdered By: Ed Amaral on 10-26-2021 ALT No additional P-5'-P [Catalytic activity/Vol] 20 U/L 10-60 [facility] Serum or plasma albumin/glob ulin mass ratioOrdered By: Ed Amaral on 10-26-2021 Albumin/Globulin [Mass ratio] 1.5 {ratio} [facility] Serum or plasma alkaline jame sphatase measurement (enzymatic activity/volume)Ordered By: Ed Amaral on 10-26-2021 ALP [Catalytic activity/Vol] 55 U/L 32-92 [facility] Serum or plasma anion gap de terminationOrdered By: Ed Amaral on 10-26-2021 Anion gap [Moles/Vol] 10.1 mmol/L 6.0-15.0 [facility] Serum or plasma aspartate am inotransferase measurement (enzymatic activity/volume)Ordered By: Ed Amaral on 10-26-2021 AST [Catalytic activity/Vol] 17 U/L 10-42 [facility] Serum or plasma calcium stephane urement (mass/volume)Ordered By: Ed Amaral on 10-26-2021 Calcium [Mass/Vol] 9.5 mg/dL 8.2-10.2 [facility] Serum or plasma chloride rios surement (moles/volume)Ordered By: Ed Amaral on 10-26-2021 Chloride [Moles/Vol] 104 mmol/L 95-114 [facility] Serum or plasma ethanol stephane urement (mass/volume)Ordered By: Ed Amaral on 10-26-2021 Ethanol [Mass/Vol] mg/dL [facility] Ethanol [Mass/Vol] TNP [facility] Comment on above: Test not performed Serum or plasma glucose stephane urement (mass/volume)Ordered By: Ed Amaral on 10-26-2021 Glucose [Mass/Vol] 98 mg/dL 70-100 [facility] Comment on above: ADA recommended refe rence range Random Glucose Reference Range is dependent on time and content of last meal. Glucose of more than 200 mg/dL in a nonstressed, ambulatory subject supports the diagnosis of Diabetes Mellitus. Serum or plasma potassium me asurement (moles/volume)Ordered By: Ed Amaral on 10-26-2021 Potassium [Moles/Vol] 3.4 mmol/L 3.5-5.1 [facility] Serum or plasma sodium measu rement (moles/volume)Ordered By: Ed Amaral on 10-26-2021 Sodium [Moles/Vol] 136 mmol/L 136-146 [facility] Serum or plasma total biliru bin measurement (mass/volume)Ordered By: Ed Amaral on 10-26-2021 Bilirubin [Mass/Vol] 0.4 mg/dL 0.3-1.2 [facility] Serum or plasma total carbon dioxide measurement (moles/volume)Ordered By: Ed Amaral on 10-26-2021 CO2 [Moles/Vol] 25.3 mmol/L 22.0-30.0 [facility] Serum or plasma urea nitroge n measurement (mass/volume)Ordered By: Ed Amaral on 10-26-2021 Urea nitrogen [Mass/Vol] 6 mg/dL - [facility] Feli Ag Negativeon 10-27-19 Feli Ag Negative Negative Normal Negative [facility] Comment on above: Result Comment: This is a duplicate Feli SARS Antigen (ERNESTO) result to be used for statistical tracking purpose only. PERFORMED BY: [facility] [address] [place] [address] PATHOLOGIST RN ON SITE JAMES MNCAIR M.D. Performed By: #### S BALJINDER HOBSON, DAVIDPLUS, UHCG, COVID-19 FELI #### [facility] [address] Specific gravity Auto test s trip (U) [Rel density]Ordered By: Ed Amaral on 10-26-2021 Specific gravity (U) [Rel density] 1.005 1.001-1.030 [facility] Squamous epithelial cells de tection in urine sediment by light microscopyOrdered By: Ed Amaral on 10-26-2021 Epithelial cells.squamous LM Ql (Urine sed) 1-2 [HPF] 0-2 [facility] Urine bacteria detection by automated methodOrdered By: Ed Amaral on 10-26-2021 Bacteria Auto Ql (U) N/A [facility] Urine clarity by refractomet ry automatedOrdered By: Ed Amaral on 10-26-2021 Clarity Refractometry automated (U) Clear Clear [facility] Urine cocaine detectionOrder ed By: Ed Amaral on 10-26-2021 Cocaine Ql (U) Negative Negative [facility] Urine glucose measurement by automated test strip (mass/volume)Ordered By: Ed Amaral on 10-26-2021 Glucose Auto test strip (U) [Mass/Vol] Normal mg/dL Normal [facility] Urine hemoglobin detection b y automated test stripOrdered By: Ed Amaral on 10-26-2021 Hemoglobin Auto test strip Ql (U) Negative Negative [facility] Urine leukocyte esterase det ection by automated test stripOrdered By: Ed Amaral on 10-26-2021 Leukocyte esterase Auto test strip Ql (U) 1+ Negative [facility] Urine pH measurement by auto mated test stripOrdered By: Ed Amaral on 10-26-2021 pH (U) 7.0 [pH] Normal 5.0-9.0 [facility] Comment on above: Order Comment: Name Collection Type:: Clean-Voided Midstream Performed By: #### S OFIANEG, URDS, ADDONUAPLUS, UHCG, COVID-19 FELI #### [facility] [address] [place] [id number] [facility] Urobilinogen Auto test strip (U) [Mass/Vol]Ordered By: Ed Amaral on 10-26-2021 Urobilinogen (U) [Mass/Vol] Normal mg/dL Normal [facility] Viral Non-Resp Culton 2021 Viral Non-Resp Cult Specimen Description .WOUND UPPER .LIP Culture POSITIVE: HSV-1 DNA detected by nucleic acid amp. NEGATIVE: HSV-2 DNA not detected by nucleic acid amplification. Due to the specimen source, HSV 1,2 testing was performed by a molecular method. Report Status FINAL 05/30/2021 Normal [facility] Comment on above: Performed By: #### [facility] #### [address] [address] Truck Driver Instructor: Claude Gonzalez MD No Panel InformationOrdered By: Kia Sharma on 05-28-2021 Reported Physicians See Note [facility] Work Phone: Comment on above: Note: Reported Physi cians:Ordering: Andres SharmaaAttending: Andres SharmaaReferring: Kia Sharma Viral Non-Resp Cult See Note [facility] Work Phone: Comment on above: Note: Specimen Descr iption .WOUND UPPER .LIPCulture POSITIVE: HSV-1 DNA detected by nucleic acid amp.NEGATIVE: HSV-2 DNA not detected by nucleic acid amplification.Due to the specimen source, HSV 1,2 testing was performed by a molecular method.Report Status FINAL 2Responsible Observer: SUMMER BOYD ([id number]) Follicle Stimulating Hormone on 03-10-2021 FSH 4.5 U/L 1.7 - 21.5 U/L [facility] Comment on above: Reference Range: Male: 1.5-12.4 Ovulating Female: Follicular Phase 3.5-12.5 Ovulation Phase 4.7-21.5 Luteal Phase 1.7-7.7 Postmenopausal Female: 25.8-134.8 Luteinizing Hormoneon 2021 LH 3.0 U/L 1.0 - 95.6 U/L [email or web address] Comment on above: Reference Range: Male: 1.7-8.6 Ovulating Female: Follicular Phase 2.4-12.6 Ovulation Phase 14.0-95.6 Luteal Phase 1.0-11.4 Postmenopausal Female: 7.7-58.5 No Panel Informationon 03-10 [email or web address] Prolactinon 03-10-2021 Prolactin 5.96 ug/L 4.79 - 23.30 ug/L [email or web address] Comment on above: The presence of macr oprolactin may cause interference in female patients with various endocrinological diseases or during . [email or web address] TSH with Reflexon 03-10-2021 TSH Qn 0.72 m[IU]/L [facility] hCG, Quantitative, on 03-10-2021 hCG Quant <1 <5 IU/L [email or web address] Comment on above: Non-preg premeno <=5 Postmeno <=8 Male <=3 If HCG results do not concur with clinical observations, additional testing to confirm results is recommended. Elevated results not associated with may be found in patients with other diseases such as tumors of the germ cells (testis, ovaries, etc.), bladder, pancreas, stomach, lungs, and liver. [email or web address] , UrineOrdered By: Anthony Galloway on 10-14-2020 Beta HCG ( test) Ql (U) Negative NEGATIVE [email or web address] Phone: Comment on above: Specimens with hCG l evels near the threshold of the test (25 mIU/mL) may give a negative or indeterminate result. In such cases, another test should be performed with a new specimen in 48-72 hours. If early is suspected clinically in this setting, correlation with quantitative serum b-hCG level is suggested. [employer] has confirmed the use of plasma for this test. This has not been cleared or approved by the U.S. Food and Drug Administration. The FDA has determined that such clearance is not necessary. [email or web address] Work Phone: COVID-19Ordered By: Sabas siddiqi on 10-10-2020 SARS-CoV-2 (COVID-19) RNA SANDRA+probe Ql (Unsp spec) [email or web address] Phone: SARS-CoV-2 (COVID-19) RNA SANDRA+probe Ql (Unsp spec) Not detected Not Detected [email or web address] Phone: Comment on above: The specimen is NEGATIVE for SARS-CoV-2, the novel coronavirus associated with COVID-19. A negative result does not rule out COVID-19. Maritza SARS-CoV-2 for use on the [employer] is a real-time RT-PCR test intended [...] this assay. Fact sheet for Healthcare Providers: https://www.fda.gov/media/364347/download Fact sheet for Patients: https://www.fda.gov/media/527739/download METHODOLOGY: RT-PCR Source .NASOPHARYNGEAL SWAB [employer] Phone: [email or web address] Phone: Microscopic Urinalysison Amorphous, UA NOT REPORTED None [facility]- [place], [place] Bacteria, UA 1+ Abnormal None [facility], [place] Casts UA NOT REPORTED /LPF [place], [place] Crystals, UA NOT REPORTED None /HPF [facility]- [place], [place] Epithelial Cells UA 5 TO 10 [place], [place] Interpretation and review of laboratory results Abnormal [facility], [place] Mucus, UA NOT REPORTED None [facility], [place] Other Observations UA NOT REPORTED NOT REQ. M [facility], [place] RBC (U) [#/Vol] 0 TO [address] [facility] [place] Renal Epithelial, UA NOT REPORTED 0 /HPF Me [place], [place] Trichomonas, UA NOT REPORTED None [place], [place] WBC, UA 0 TO 2 [place], [place] Yeast, UA NOT REPORTED None [place], [place] - [place], [place] , Urineon 0 Beta HCG ( test) Ql (U) Negative NEGATIVE [place] Comment on above: Specimens with hCG l evels near the threshold of the test (25 mIU/mL) may give a negative or indeterminate result. In such cases, another test should be performed with a new specimen in 48-72 hours. If early is suspected clinically in this setting, correlation with quantitative serum b-hCG level is suggested. [facility] has confirmed the use of plasma for this test. This has not been cleared or approved by the U.S. Food and Drug Administration. The FDA has determined that such clearance is not necessary. Urinalysis Reflex to Culture on 02-25-2020 Bilirubin Urine Negative NEGATIVE [place], [place] Color, UA YELLOW YELLOW [place], [place] Glucose, Ur Negative NEGATIVE [place] Ketones Ql (U) Negative NEGATIVE [place], [place] Leukocyte esterase Test strip Ql (U) Negative NEGATIVE [place] Nitrite, Urine Negative NEGATIVE [place], [place] pH, UA 6.5 [place] Protein (U) [Mass/Vol] Negative NEGATIVE [place], [place] Specific [place], UA 1.010 [place], [place] Turbidity UA CLEAR CLEAR [place], [place] Urinalysis Comments NOT REPORTED [place], [place] Urine Hgb Negative NEGATIVE [place] Urobilinogen, Urine Normal Normal [place] Wet Prep, Genitalon 02-25-20 20 Direct Exam NO TRICHOMONAS SEEN [place], [place] Direct Exam NO YEAST OBSERVED [place] Direct Exam CLUE CELLS SEEN Abnormal [place], [place] Interpretation and review of laboratory results Abnormal [place], [place] Special Requests NOT REPORTED [place] Specimen Description .VAGINA [place], [place] Laboratory Studieson 016 Albumin [Mass/Vol] 3.4 g/dL 3.2-5.5 [facility] Albumin/Globulin [Mass ratio] 1.5 {ratio} [facility] ALP [Catalytic activity/Vol] 50 U/L 32-92 [facility] ALT [Catalytic activity/Vol] 17 U/L 10-60 [facility] AST [Catalytic activity/Vol] 16 U/L 10-42 [facility] Basophils (Bld) [#/Vol] 0.0 10*3/uL 0.0-0.2 [facility] Basophils/100 WBC (Bld) 0.3 % F [facility] Bilirubin Ql (U) 0.2 mg/dL Low 0.3-1.2 [facility] Bilirubin.direct [Mass/Vol] mg/dL 0.0-0.4 [facility] Bilirubin.indirect (Body fld) [Mass/Vol] TNP [facility] Comment on above: Test not performed WHEN BILD IS <0.1,IBIL IS NOT ABLE TO BE CALCULATED. Calcium [Mass/Vol] 9.3 mg/dL 8.2-10.2 [facility] Chloride [Moles/Vol] 106 mmol/L 95-114 [facility] Cholesterol [Mass/Vol] 9 mg/dL Fi [facility] Cholesterol [Mass/Vol] 101 mg/dL Low 140-200 Fi [facility] Comment on above: CHOL less than 200 m g/dL Low risk CHOL 201-239 mg/dL Borderline risk CHOL 240 mg/dL and greater High risk Cholesterol in HDL [Mass/Vol] 38 mg/dL 35-85 [facility] Comment on above: HDL CHOL ATP-III CLA SSIFICATION Cardiovascular Risk HDL > or equal to 60 mg/dL Low HDL < 40 mg/dL High Cholesterol.total/Fanny sterol in HDL [Mass ratio] 2.7 {ratio} [facility] CO2 [Moles/Vol] 25.8 mmol/L 22.0-30.0 [facility] Creatinine [Mass/Vol] 0.62 mg/dL 0.44-1.03 [facility] Eosinophils (Bld) [#/Vol] 0.10 10*3/uL 0.0-0.45 [facility] Eosinophils/100 WBC (Bld) 1.5 % [facility] Erythrocyte distribution width (RBC) [Ratio] 13.2 % 11.9-15.3 [facility] Estimated GFR (Non- > 60 [facility] GFR/1.73 sq M.predicted MDRD (S/P/Bld) [Vol rate/Area] mL/min/{1.73_m2} [facility] Comment on above: GFR estimated refere nce range: According to KDOQI guidelines, <60 ml/min/1.73m2 is sufficient to diagnose a patient with chronic kidney disease. Globulin (S) [Mass/Vol] 2.2 g/dL F [facility] Glucose [Mass/Vol] 82 mg/dL 70-100 [facility] Comment on above: ADA RECOMMENDED REFE RENCE RANGE Hematocrit (Bld) [Volume fraction] 32.1 % Low 34.0-46.4 [facility] Hemoglobin (Bld) [Mass/Vol] 11.0 g/dL Low 11.8-15.4 [facility] LDL Cholesterol, Calculated 54 mg/dL 0-100 [facility] Comment on above: LDL ATP III CLASSIFI CATION LDL less than 100 mg/dL Optimal LDL 100-129 mg/dL Near or above optimal LDL 130-159 mg/dL Borderline high LDL 160-189 mg/dL High LDL greater than 189 mg/dL Very high Lymphocytes (Bld) [#/Vol] 2.1 10*3/uL 1.00-4.8 [facility] Lymphocytes/100 WBC (Bld) 25.3 % [facility] MCH (RBC) [Entitic mass] 31.9 pg 24.7-34.3 [facility] MCHC (RBC) [Mass/Vol] 34.4 g/dL 32.0-35.0 Fir [facility] MCV (RBC) [Entitic vol] 92.6 fL 80-100 F [facility] Monocytes (Bld) [#/Vol] 0.7 10*3/uL 0.0-0.8 [facility] Monocytes/100 WBC (Bld) 8.3 % F [facility] Neutrophils (Bld) [#/Vol] 5.3 10*3/uL 1.8-7.7 [facility] Neutrophils/100 WBC (Bld) 64.6 % [facility] Platelet mean volume (Bld) [Entitic vol] 9.5 fL 6.3-10.7 [facility] Platelets (Bld) [#/Vol] 135 10*3/uL Low 150-450 [facility] Potassium [Moles/Vol] 4.3 mmol/L 3.5-5.1 [facility] Protein [Mass/Vol] 5.6 g/dL Low 6.1-7.9 [facility] RBC (Bld) [#/Vol] 3.46 10*6/uL Low 3.60-5.00 [facility] Sodium [Moles/Vol] 138 mmol/L 136-146 [facility] Triglyceride [Mass/Vol] 47 mg/dL 35-149 F [facility] Comment on above: TRIG ATP III CLASSIF ICATION TRIG less than 150 mg/dL Normal TRIG 150-199 mg/dL Borderline high TRIG 200-500 mg/dL High TRIG greater than 500 mg/dL Very high Standard traceable to the Center for Disease Conrtrol and Prevention (CDC) test method. Troponin I.cardiac [Mass/Vol] 0.02 ng/mL 0-0.02 [facility] Comment on above: [place] Cut off value > or equal to 0.03 ng/mL in conjunction with clinical conditions of myocardial infarction. (www.escardio.org/guidelines) TSH Qn 1.89 uIU/mL 0.340-5.600 [facility] Urea nitrogen [Mass/Vol] 7 mg/dL Low 9-23 [facility] WBC (Bld) [#/Vol] 8.2 10*3/uL 3.8-11.6 [facility] Amorphous sediment LM Ql (Urine sed) 2+ [facility] Comment on above: PHOSPHATES Amphetamines Ql (U) Negative [facility] Appearance (U) Hazy Abnormal [facility] Bacteria LM.HPF (Urine sed) [#/Area] Rare [facility] Benzodiazepines Ql (U) Negative [facility] Bilirubin Ql (U) Negative [facility] Cocaine Ql (U) Negative [facility] [facility] (U) Light-yellow [facility] Epithelial cells.squamous LM.HPF (Urine sed) [#/Area] 3-4 /hpf [facility] Glucose (U) [Mass/Vol] Normal mg/dL [facility] Ketones Ql (U) Negative [facility] Leukocyte esterase Test strip Ql (U) Negative [facility] Nitrite Ql (U) Negative [facility] Opiates Ql (U) Negative [facility] pH (U) 7.0 [pH] 5.0-9.0 [facility] Phencyclidine Ql (U) Negative [facility] Protein Ql (U) Negative [facility] RBC (U) [#/Vol] Rare /hpf [facility] Specific gravity (U) [Rel density] 1.010 1.001-1.030 [facility] Urine Barbiturates Screen Positive [facility] Urine Collection Type Type [facility] Comment on above: VOIDED Urine Drug Screen Comment See comment [facility] Comment on above: THESE ARE UNCONFIRME D RESULTS AND SHOULD NOT BE USED FOR LEGAL PURPOSES. DRUG CUT-OFF CONCENTRATION: AMPH 1000 ng/mL SANCHEZ 200 ng/mL RENZO 200 ng/mL COCM 300 ng/mL OP 300 ng/mL PCP 25 ng/mL THC 20 ng/mL Urine Marijuana (THC) Screen Positive [facility] Urine Occult Blood Negative [facility] Urobilinogen Qn (U) Normal mg/dL [facility] WBC (U) [#/Vol] Rare /hpf [facility] Laboratory Studieson 02-19- 016 CK [Catalytic activity/Vol] 51 U/L 22-269 [facility] CK.MB [Mass/Vol] 0.8 ng/mL 0.6-6.3 [facility] Creatine Kinase MB Relative Index 1.5 0.00-2.50 [facility] Vital Signs Date Time Vital Sign Value Performing Clinician Facility 09-12-2023 17:45-0400 Body height 170.2 cm Brenda Stephen APRN - [facility] Work Phone: [email or web address] 09-12-2023 17:45-0400 Body mass index (BMI) [Ratio] 28.82 kg/m2 Brenda Stephen AUTOMOTIVE CUSTOMER EXPERIENCE ADVISOR - CNM Work Phone: [facility] 09-12-2023 17:45-0400 Body temperature 98.29 [degF] Brenda Stephen AUTOMOTIVE CUSTOMER EXPERIENCE ADVISOR - CNM Work Phone: [email or web address] 09-12-2023 17:45-0400 Body weight 83.46 kg Brenda Stephen AUTOMOTIVE CUSTOMER EXPERIENCE ADVISOR - CNM Work Phone: [email or web address] 09-12-2023 17:45-0400 Diastolic blood pressure 60 mm[Hg] Brenda Stephen AUTOMOTIVE CUSTOMER EXPERIENCE ADVISOR - CNM Work Phone: [email or web address] 09-12-2023 17:45-0400 Heart rate 75 /min Brenda Stephen AUTOMOTIVE CUSTOMER EXPERIENCE ADVISOR - CNM Work Phone: [facility] 09-12-2023 17:45-0400 Respiratory rate 16 /min Brenda Stephen AUTOMOTIVE CUSTOMER EXPERIENCE ADVISOR - CNM Work Phone: [email or web address] 09-12-2023 17:45-0400 SaO2% (BldA) [Mass fraction] 98 % Brenda Stephen AUTOMOTIVE CUSTOMER EXPERIENCE ADVISOR - CNM Work Phone: [email or web address] 09-12-2023 17:45-0400 Systolic blood pressure 110 mm[Hg] Brenda Stephen AUTOMOTIVE CUSTOMER EXPERIENCE ADVISOR - CNM Work Phone: [email or web address] 08-24-2023 20:05-0400 Body temperature 98.1 [degF] Jagdeep D'Abreau DO Work Phone: [email or web address] 08-24-2023 20:05-0400 Diastolic blood pressure 63 mm[Hg] Jagdeep D'Abreau DO Work Phone: [email or web address] 08-24-2023 20:05-0400 Heart rate 95 /min Jagdeep D'Abreau DO Work Phone: [email or web address] 08-24-2023 20:05-0400 Respiratory rate 16 /min Jagdeep Callahaneau DO Work Phone: [email or web address] 08-24-2023 20:05-0400 SaO2% (BldA) [Mass fraction] 98 % Jagdeep Lozoyau DO Work Phone: [email or web address] 08-24-2023 20:05-0400 Systolic blood pressure 131 mm[Hg] Jagdeep Callahaneau DO Work Phone: [email or web address] 08-03-2022 06:56-0400 Body temperature 99 [degF] Samara Paulino MD Work Phone: [email or web address] 08-03-2022 06:56-0400 Diastolic blood pressure 75 mm[Hg] Samara Paulino MD Work Phone: [email or web address] 08-03-2022 06:56-0400 Heart rate 129 /min Samara Paulino MD Work Phone: [email or web address] 08-03-2022 06:56-0400 Respiratory rate 22 /min Samara Paulino MD Work Phone: [email or web address] 08-03-2022 06:56-0400 SaO2% (BldA) [Mass fraction] 100 % Samara Paulino MD Work Phone: [email or web address] 08-03-2022 06:56-0400 Systolic blood pressure 131 mm[Hg] Samara Paulino MD Work Phone: [email or web address] 07-27-2022 18:47-0400 Body height 175.26 cm Mariposa Duncan CNP Work Phone: [facility] Work Phone: 07-27-2022 18:47-0400 Body mass index (BMI) [Ratio] 22 kg/m2 Mariposa Duncan CNP Work Phone: [facility] Work Phone: 07-27-2022 18:47-0400 Body surface area Derived from formula 1.8 m2 Mariposa Duncan CNP Work Phone: [facility] Work Phone: 07-27-2022 18:47-0400 Body temperature 96.3 [degF] Mariposa Duncan CNP Work Phone: [facility] Work Phone: 07-27-2022 18:47-0400 Body weight 67.72 kg Mariposa Duncan CNP Work Phone: [facility] Work Phone: 07-27-2022 18:47-0400 Diastolic blood pressure 63 mm[Hg] Mariposa Duncan CNP Work Phone: [facility] Work Phone: 07-27-2022 18:47-0400 Heart rate 68 /min Mariposa Duncan CNP Work Phone: [facility] Work Phone: 07-27-2022 18:47-0400 SaO2% (BldA) [Mass fraction] 97 % Mariposa Duncan CNP Work Phone: [facility] Work Phone: 07-27-2022 18:47-0400 Systolic blood pressure 117 mm[Hg] Mariposa Duncan CNP Work Phone: [facility] Work Phone: 04-24-2022 13:05-0500 Diastolic blood pressure 60 mm[Hg] Kia Sharma APRN - HEALTH PRACTICE MANAGER Work Phone: [facility] 04-24-2022 13:05-0500 Systolic blood pressure 122 mm[Hg] Kia Sharma APRN - HEALTH PRACTICE MANAGER Work Phone: [facility] 04-24-2022 10:44-0500 Body mass index (BMI) [Ratio] 24.78 kg/m2 Kia Leo HEALTH PRACTICE MANAGER Work Phone: [email or web address] 04-24-2022 10:44-0500 Body temperature 98.4 [degF] Kia Leo HEALTH PRACTICE MANAGER Work Phone: [email or web address] 04-24-2022 10:44-0500 Body weight 73.94 kg Kia Leo HEALTH PRACTICE MANAGER Work Phone: [facility] 04-24-2022 10:44-0500 Heart rate 79 /min Kia Leo HEALTH PRACTICE MANAGER Work Phone: [email or web address] 04-24-2022 10:44-0500 Respiratory rate 20 /min Kia Leo HEALTH PRACTICE MANAGER Work Phone: [facility] 04-24-2022 10:44-0500 SaO2% (BldA) [Mass fraction] 100 % Kia Leo HEALTH PRACTICE MANAGER Work Phone: [email or web address] 03-04-2022 14:15-0500 Diastolic blood pressure 78 mm[Hg] Geoff Miller MD Work Phone: [email or web address] 03-04-2022 14:15-0500 Heart rate 74 /min Geoff Miller MD Work Phone: [email or web address] 03-04-2022 14:15-0500 Respiratory rate 16 /min Goeff Miller MD Work Phone: [facility] 03-04-2022 14:15-0500 SaO2% (BldA) [Mass fraction] 100 % Geoff Miller MD Work Phone: [email or web address] 03-04-2022 14:15-0500 Systolic blood pressure 131 mm[Hg] Geoff Miller MD Work Phone: [facility] 03-04-2022 13:30-0500 Body temperature 97.2 [degF] Geoff Miller MD Work Phone: [facility] 03-04-2022 11:15-0500 Body height 172.7 cm Geoff Miller MD Work Phone: [facility] 03-04-2022 11:15-0500 Body mass index (BMI) [Ratio] 24.94 kg/m2 Geoff Miller MD Work Phone: [facility] 03-04-2022 11:15-0500 Body weight 74.39 kg Geoff Miller MD Work Phone: [facility] 03-01-2022 08:00-0500 Body mass index (BMI) [Ratio] 24.94 kg/m2 Nicholas Denton MD Work Phone: [facility] 03-01-2022 08:00-0500 Body temperature 98.2 [degF] Nicholas Denton MD Work Phone: [facility] 03-01-2022 08:00-0500 Body weight 74.39 kg Nicholas Denton MD Work Phone: [facility] 03-01-2022 08:00-0500 Diastolic blood pressure 61 mm[Hg] Nicholas Denton MD Work Phone: [facility] 03-01-2022 08:00-0500 Heart rate 89 /min Nicholas Denton MD Work Phone: [facility] 03-01-2022 08:00-0500 Respiratory rate 20 /min Nicholas Denton MD Work Phone: [facility] 03-01-2022 08:00-0500 SaO2% (BldA) [Mass fraction] 99 % Nicholas Denton MD Work Phone: [facility] 03-01-2022 08:00-0500 Systolic blood pressure 138 mm[Hg] Nicholas Denton MD Work Phone: [facility] 10-29-2021 07:30-0400 Body temperature 96.6 [degF] PHYSICIAN NO [facility] 10-29-2021 07:30-0400 Diastolic blood pressure 70 mm[Hg] PHYSICIAN NO [facility] 10-29-2021 07:30-0400 Heart rate 84 /min PHYSICIAN [facility] 10-29-2021 07:30-0400 Respiratory rate 18 /min PHYSICIAN NO [facility] 10-29-2021 07:30-0400 SaO2% (BldA) [Mass fraction] 97 % PHYSICIAN NO [facility] 10-29-2021 07:30-0400 Systolic blood pressure 110 mm[Hg] PHYSICIAN [facility] 10-27-2021 14:15-0400 Body height 172.72 cm PHYSICIAN [facility] 10-26-2021 20:08-0400 Body weight 58.96 kg PHYSICIAN [facility] 08-17-2021 16:45-0400 Body height 175.26 cm Kia Sharma [facility] Work Phone: [facility] Work Phone: 08-17-2021 16:45-0400 Body mass index (BMI) [Ratio] 20 kg/m2 Kia Sharma [facility] Work Phone: [facility] Work Phone: 08-17-2021 16:45-0400 Body surface area Derived from formula 1.75 m2 Kia Sharma [facility] Work Phone: [facility] Work Phone: 08-17-2021 16:45-0400 Body surface area Derived from formula 1.7 m2 Mariposa Duncan [facility] Work Phone: [facility] Work Phone: 08-17-2021 16:45-0400 Body temperature 96.7 [degF] Kia Sharma [facility] Work Phone: [facility] Work Phone: 08-17-2021 16:45-0400 Body weight 61.33 kg Kia Sharma CNP Work Phone: [facility] Work Phone: 08-17-2021 16:45-0400 Diastolic blood pressure 64 mm[Hg] Kia Sharma CNP Work Phone: [facility] Work Phone: 08-17-2021 16:45-0400 Heart rate 67 /min Kia Sharma CNP Work Phone: [facility] Work Phone: 08-17-2021 16:45-0400 SaO2% (BldA) [Mass fraction] 99 % Kia Sharma CNP Work Phone: [facility] Work Phone: 08-17-2021 16:45-0400 Systolic blood pressure 110 mm[Hg] Kia Sharma CNP Work Phone: [facility] Work Phone: 07-15-2021 15:57-0400 Body height 175.26 cm Kia Sharma CNP Work Phone: [facility] Work Phone: 07-15-2021 15:57-0400 Body mass index (BMI) [Ratio] 19.8 kg/m2 Kia Sharma CNP Work Phone: [facility] Work Phone: 07-15-2021 15:57-0400 Body surface area Derived from formula 1.74 m2 Kia Sharma CNP Work Phone: [facility] Work Phone: 07-15-2021 15:57-0400 Body temperature 98.1 [degF] Kia Sharma CNP Work Phone: [facility] Work Phone: 07-15-2021 15:57-0400 Body weight 60.78 kg Kia Sharma CNP Work Phone: [facility] Work Phone: 07-15-2021 15:57-0400 Diastolic blood pressure 62 mm[Hg] Kia Sharma CNP Work Phone: [facility] Work Phone: 07-15-2021 15:57-0400 Heart rate 68 /min Kia Sharma CNP Work Phone: [facility] Work Phone: 07-15-2021 15:57-0400 Heart Rate Rhythm 1 1 Kia Sharma CNP Work Phone: [facility] Work Phone: 07-15-2021 15:57-0400 SaO2% (BldA) [Mass fraction] 98 % Kia Sharma CNP Work Phone: [facility] Work Phone: 07-15-2021 15:57-0400 Systolic blood pressure 108 mm[Hg] Kia Sharma CNP Work Phone: [facility] Work Phone: 07-01-2021 17:32-0400 Body height 175.26 cm Kia Sharma CNP Work Phone: [facility] Work Phone: 07-01-2021 17:32-0400 Body mass index (BMI) [Ratio] 20.3 kg/m2 Kia Sharma CNP Work Phone: [facility] Work Phone: 07-01-2021 17:32-0400 Body surface area Derived from formula 1.76 m2 Kia Sharma CNP Work Phone: [facility] Work Phone: 07-01-2021 17:32-0400 Body temperature 97.5 [degF] Kia Sharma CNP Work Phone: [facility] Work Phone: 07-01-2021 17:32-0400 Body weight 62.32 kg Kia Sharma CNP Work Phone: [facility] Work Phone: 07-01-2021 17:32-0400 Diastolic blood pressure 58 mm[Hg] Kia Sharma CNP Work Phone: [facility] Work Phone: 07-01-2021 17:32-0400 Heart rate 775 /min Kia Sharma CNP Work Phone: [facility] Work Phone: 07-01-2021 17:32-0400 Heart Rate Rhythm 1 1 Kia Sharma CNP Work Phone: [facility] Work Phone: 07-01-2021 17:32-0400 SaO2% (BldA) [Mass fraction] 97 % Kia Sharma CNP Work Phone: [facility] Work Phone: 07-01-2021 17:32-0400 Systolic blood pressure 116 mm[Hg] Kia Sharma CNP Work Phone: [facility] Work Phone: 05-28-2021 18:41-0400 Body height 175.26 cm Kia Sharma CNP Work Phone: [facility] Work Phone: 05-28-2021 18:41-0400 Body mass index (BMI) [Ratio] 19.6 kg/m2 Kia Sharma CNP Work Phone: [facility] Work Phone: 05-28-2021 18:41-0400 Body surface area Derived from formula 1.74 m2 Kia Sharma CNP Work Phone: [facility] Work Phone: 05-28-2021 18:41-0400 Body temperature 97.7 [degF] Kia Sharma CNP Work Phone: [facility] Work Phone: 05-28-2021 18:41-0400 Body weight 60.33 kg Kia Sharma CNP Work Phone: [facility] Work Phone: 05-28-2021 18:41-0400 Diastolic blood pressure 76 mm[Hg] Kia Sharma CNP Work Phone: [facility] Work Phone: 05-28-2021 18:41-0400 Heart rate 83 /min Kia Sharma CNP Work Phone: [facility] Work Phone: 05-28-2021 18:41-0400 SaO2% (BldA) [Mass fraction] 98 % Kia Sharma CNP Work Phone: [facility] Work Phone: 05-28-2021 18:41-0400 Systolic blood pressure 122 mm[Hg] Kia Sharma CNP Work Phone: [facility] Work Phone: 10-14-2020 13:00-0400 Diastolic blood pressure 68 mm[Hg] Anthony Galloway MD Work Phone: [email or web address] Work Phone: 10-14-2020 13:00-0400 Heart rate 60 /min Anthony Galloway MD Work Phone: [email or web address] Work Phone: 10-14-2020 13:00-0400 Respiratory rate 16 /min Anthony Galloway MD Work Phone: [email or web address] Work Phone: 10-14-2020 13:00-0400 SaO2% (BldA) [Mass fraction] 99 % Anthony Galloway MD Work Phone: [email or web address] Work Phone: 10-14-2020 13:00-0400 Systolic blood pressure 114 mm[Hg] Anthony Galloway MD Work Phone: [email or web address] Work Phone: 10-14-2020 12:25-0400 Body temperature 97.39 [degF] Anthony Galloway MD Work Phone: [email or web address] Work Phone: 10-14-2020 09:35-0400 Body height 172.7 cm Anthony Galloway MD Work Phone: [email or web address] Work Phone: 10-14-2020 09:35-0400 Body mass index (BMI) [Ratio] 20.13 kg/m2 Anthony Galloway MD Work Phone: [email or web address] Work Phone: 10-14-2020 09:35-0400 Body weight 60.06 kg Anthony Galloway MD Work Phone: [email or web address] Work Phone: 05-27-2020 22:19-0400 Body Temperature 97.5 [degF] [employer] Work Phone: 05-27-2020 22:19-0400 BP Diastolic 79 mm[Hg] [employer] Work Phone: 05-27-2020 22:19-0400 BP Systolic 133 mm[Hg] [employer] Work Phone: 05-27-2020 22:19-0400 Pulse (Heart Rate) 94 /min [employer] Work Phone: 05-27-2020 22:19-0400 Pulse Oximetry 98 % Sidradha Norris [facility] Work Phone: 05-27-2020 22:19-0400 Respiratory Rate 16 /min Sid [facility] Work Phone: 04-03-2020 16:21-0500 BMI (Body Mass Index) 21.9 kg/m2 [facility] Work Phone: 04-03-2020 16:21-0500 Body Temperature 97.9 [degF] [facility] Work Phone: 04-03-2020 16:21-0500 Body weight 67.13 kg [facility] Work Phone: 04-03-2020 16:21-0500 BP Diastolic 82 mm[Hg] [facility] Work Phone: 04-03-2020 16:21-0500 BP Systolic 138 mm[Hg] [facility] Work Phone: 04-03-2020 16:21-0500 BSA (Body Surface Area) 1.82 m2 [facility] Work Phone: 04-03-2020 16:21-0500 Height 175.26 cm [facility] Work Phone: 04-03-2020 16:21-0500 Pulse (Heart Rate) 77 /min [facility] Work Phone: 04-03-2020 16:21-0500 Pulse Oximetry 96 % [facility] Work Phone: 04-03-2020 16:21-0500 Respiratory Rate 18 /min [facility] Work Phone: 04-03-2020 16:21-0500 SaO2% (BldA) [Mass fraction] 96 % Kia Sharma [facility] Work Phone: [facility] Work Phone: 03-20-2020 11:57-0500 BMI (Body Mass Index) 21.4 kg/m2 Kia Sharma [facility] Work Phone: 03-20-2020 11:57-0500 Body weight 65.77 kg Kiajace Sharma [facility] Work Phone: 03-20-2020 11:57-0500 BSA (Body Surface Area) 1.8 m2 Kiajace Sharma [facility] Work Phone: 03-20-2020 11:57-0500 Height 175.26 cm [facility] Work Phone: 02-25-2020 21:28-0500 BMI (Body Mass Index) 23.22 kg/m2 [place] 02-25-2020 21:28-0500 Body Temperature 98.2 [degF] [place] 02-25-2020 21:28-0500 Body weight 70.31 kg [place] 02-25-2020 21:28-0500 BP Diastolic 76 mm[Hg] [place] 02-25-2020 21:28-0500 BP Systolic 144 mm[Hg] [place] 02-25-2020 21:28-0500 Height 174 cm [place] 02-25-2020 21:28-0500 Pulse (Heart Rate) 73 /min [place] 02-25-2020 21:28-0500 Pulse Oximetry 100 % [place] 02-25-2020 21:28-0500 Respiratory Rate 16 /min [place] 02-06-2020 17:44-0500 Respiratory Rate 16 /min [facility] [place] 02-06-2020 17:19-0500 BMI (Body Mass Index) 23.57 kg/m2 [facility] [place] 02-06-2020 17:19-0500 Body Temperature 99.61 [degF] [facility] [place] 02-06-2020 17:19-0500 Body weight 70.31 kg [facility] [place] 02-06-2020 17:19-0500 BP Diastolic 60 mm[Hg] [facility] [place] 02-06-2020 17:19-0500 BP Systolic 120 mm[Hg] [facility] [place] 02-06-2020 17:19-0500 Height 172.7 cm [facility] 02-06-2020 17:19-0500 Pulse (Heart Rate) 81 /min [facility] 02-06-2020 17:19-0500 Pulse Oximetry 98 % [facility] 12-24-2019 12:27-0400 BMI (Body Mass Index) 23.42 kg/m2 [facility] [place] 12-24-2019 12:27-0400 Body Temperature 97.9 [degF] [facility] [place] 12-24-2019 12:27-0400 Body weight 69.85 kg [facility], [place] 12-24-2019 12:27-0400 BP Diastolic 64 mm[Hg] [facility] [place] 12-24-2019 12:27-0400 BP Systolic 122 mm[Hg] [facility] [place] 12-24-2019 12:27-0400 Pulse (Heart Rate) 68 /min [facility] [place] 12-24-2019 12:27-0400 Pulse Oximetry 99 % [facility] [place] 12-24-2019 12:27-0400 Respiratory Rate 16 /min [facility] [place] NEGATED: Highlighted row BMI (Body Mass Index) [facility] NEGATED: Highlighted row BMI (Body Mass Index) [facility] NEGATED: Highlighted row BMI (Body Mass Index) [facility] NEGATED: Highlighted row Body Temperature [facility] NEGATED: Highlighted row Body Temperature [facility] NEGATED: Highlighted row Body Temperature [facility] NEGATED: Highlighted row Body weight [facility] NEGATED: Highlighted row Body weight [facility] NEGATED: Highlighted row Body weight [facility] NEGATED: Highlighted row BP Diastolic [facility] NEGATED: Highlighted row BP Diastolic [facility] NEGATED: Highlighted row BP Diastolic [facility] NEGATED: Highlighted row BP Systolic [facility] NEGATED: Highlighted row BP Systolic [facility] NEGATED: Highlighted row BP Systolic [facility] NEGATED: Highlighted row Height [facility] NEGATED: Highlighted row Height [facility] NEGATED: Highlighted row Height [facility] NEGATED: Highlighted row Pulse (Heart Rate) [facility] NEGATED: Highlighted row Pulse (Heart Rate) [facility] NEGATED: Highlighted row Pulse (Heart Rate) [facility] NEGATED: Highlighted row Pulse Oximetry [facility] NEGATED: Highlighted row Pulse Oximetry [facility] NEGATED: Highlighted row Pulse Oximetry [facility] NEGATED: Highlighted row Respiratory Rate [facility] NEGATED: Highlighted row Respiratory Rate [facility] NEGATED: Highlighted row Respiratory Rate [facility] Encounters Encounter Date Encounter Type Care Provider Facility Start: 10-23-2023 End: 10-23-2023 ambulatory YURIY DALJIT Not Available Start: 10-16-2023 End: 10-16-2023 ambulatory GENESIS OJEDA Not Available Start: 10-02-2023 End: 10-02-2023 ambulatory YURIY DALJIT Not Available Start: 09-29-2023 End: 09-29-2023 [facility] [place] [facility] Start: 09-18-2023 End: 09-18-2023 ambulatory GENESIS RUSTY Not Available Start: 09-12-2023 End: 09-12-2023 ambulatory BRENDA Duarte [facility] Start: 09-12-2023 End: 09-12-2023 Subsequent hospital visit by physician Brenda Gerald CardosoHailee AUTOMOTIVE CUSTOMER EXPERIENCE ADVISOR - CNM Work Phone: [facility] Start: 09-04-2023 End: 09-04-2023 ambulatory VIPIN MICHAEL [facility] Start: 09-04-2023 End: 09-04-2023 ambulatory YURIY DALJIT Not Available Start: 09-02-2023 End: 09-03-2023 [facility] Start: 08-24-2023 End: 08-24-2023 ambulatory [facility] Start: 08-24-2023 End: 08-24-2023 Subsequent hospital visit by physician Jag[facility] Work Phone: [facility] Start: 08-03-2023 End: 08-03-2023 ambulatory GENESIS RUSTY Not Available Start: 07-06-2023 End: 07-06-2023 ambulatory YURIY DALJIT Not Available Start: 06-30-2023 End: 06-30-2023 Emergency department patient visit KIAJace SHARMA [facility] Start: 06-20-2023 End: 06-20-2023 ambulatory YURIY DALJIT Not Available Start: 05-23-2023 End: 05-23-2023 ambulatory YURIY DALJIT Not Available Start: 05-18-2023 End: 05-18-2023 Emergency department patient visit KIAJace SHARMA [facility] Start: 05-01-2023 End: 05-01-2023 ambulatory YURIY GREENE [facility] Start: 05-01-2023 End: 05-01-2023 Subsequent hospital visit by physician Kia Sharma AUTOMOTIVE CUSTOMER EXPERIENCE ADVISOR - HEALTH PRACTICE MANAGER Work Phone: [facility] Start: 04-27-2023 End: 04-27-2023 ambulatory YURIY DALJIT Not Available Start: 08-03-2022 End: 08-03-2022 Emergency department patient visit Samara Paulino MD Work Phone: [facility] ED Comment on above: Flank pain (Primary Dx); Urinary tract infection without hematuria, site unspecified Start: 07-27-2022 End: 07-27-2022 [facility] visit, estab pt Mariposa Duncan HEALTH PRACTICE MANAGER Work Phone: [facility] Work Phone: Start: 06-03-2022 End: 06-05-2022 Subsequent hospital visit by physician Kulwinder Das Radiologist [facility] Ultrasound Comment on above: Abscess of female br east Start: 04-24-2022 End: 04-24-2022 Emergency department patient visit Kia Sharma APRN - HEALTH PRACTICE MANAGER Work Phone: [facility] ED Comment on above: Nausea vomiting and diarrhea (Primary Dx) Start: 03-15-2022 End: 03-15-[address] YURIY SABILLON Facility: Start: 03-04-2022 End: 03-04-2022 Subsequent hospital visit by physician Geoff Miller MD Work Phone: [facility] Comment on above: Abscess of right lynette ast (Primary Dx) Start: 03-01-2022 End: 03-01-2022 Emergency department patient visit Nicholas Denton MD Work Phone: [facility] ED Comment on above: Cellulitis of right breast (Primary Dx) Start: 10-26-2021 End: 10-29-2021 Evaluation and management of inpatient PHYSICIAN NO FAMILY Facility:[facility] Start: 10-26-2021 End: 10-29-2021 Evaluation and management of inpatient PHYSICIAN NO FAMILY [facility] [place] [address] Start: 08-17-2021 End: 08-17-2021 FQHC visit, estab pt Halima Argueta [facility] Work Phone: [facility] Work Phone: Start: 08-17-2021 End: 08-17-2021 FQHC visit, estab pt Kia Sharma HEALTH PRACTICE MANAGER Work Phone: [facility] Work Phone: Start: 07-15-2021 End: 07-15-2021 FQHC visit, estab pt Halimaashok Argueta [facility] Work Phone: [facility] Work Phone: Start: 07-15-2021 End: 07-15-2021 FQHC visit, estab pt Kia Edith HEALTH PRACTICE MANAGER Work Phone: [facility] Work Phone: Start: 07-01-2021 End: 07-01-2021 FQ visit, estab pt Kia Sharma HEALTH PRACTICE MANAGER Work Phone: [facility] Work Phone: Start: 05-29-2021 End: 05-29-2021 ambulatory KIA SHARMA [facility] Start: 05-28-2021 End: 05-28-2021 Subsequent hospital visit by physician AGNES CHEN [facility] Start: 05-28-2021 End: 05-28-2021 FQHC visit, estab pt Kia Sharma HEALTH PRACTICE MANAGER Work Phone: [facility] Work Phone: Start: 03-25-2021 End: 03-25-2021 Subsequent hospital visit by physician [facility] Comment on above: Vaginal discharge Start: 03-10-2021 End: 03-10-2021 Subsequent hospital visit by physician [facility] Comment on above: Irregular menstrual cycle Start: 10-14-2020 End: 10-14-2020 Subsequent hospital visit by physician Anthony Galloway MD Work Phone: [facility] OR Comment on above: 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) Start: 10-09-2020 End: 10-13-2020 Patient encounter status [facility] Start: 10-09-2020 End: 10-13-2020 Subsequent hospital visit by physician Kulwinder Covid19 Pat Screening Schedule [facility] PRE [facility]MIT Comment on above: Preop testing Start: 09-25-2020 End: 09-25-2020 Patient encounter status [facility] Schedule [facility] Start: 09-25-2020 End: 09-25-2020 Subsequent hospital visit by physician [facility] Covid19 Pat Screening Schedule [facility] PRE [facility] Comment on above: Preop testing (Prima ry Dx) Start: 08-19-2020 End: 08-19-2020 Subsequent hospital visit by physician [facility] Laboratory Comment on above: 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 Start: 05-27-2020 End: 05-27-2020 Emergency department patient visit Sid Norris Work Phone: [facility] ED Comment on above: Dental infection (Pr imary Dx) Start: 04-03-2020 End: 04-03-2020 Established patient Kia Sharma Work Phone: [facility] Work Phone: Start: 04-03-2020 End: 04-03-2020 General Kia Sharma [facility] Work Phone: [facility] Work Phone: Start: 04-03-2020 End: 04-03-2020 General Halima Argueta [facility] Work Phone: [facility] Work Phone: Start: 04-02-2020 End: 04-02-2020 Subsequent [facility] Comment on above: Women's annual routi ne gynecological examination Start: 03-20-2020 End: 03-20-2020 General Halima Argueta Work Phone: [facility] Work Phone: Start: 03-20-2020 End: 03-20-2020 Telemedicine consultation with patient Kia Sharma Work Phone: [facility] Work Phone: Start: 02-25-2020 End: 02-25-2020 Emergency department patient visit Sid Norris Work Phone: [facility] ED Comment on above: Bacterial vaginosis (Primary Dx); Vaginal bleeding Start: 02-06-2020 End: 02-06-2020 Emergency department patient visit [facility] Comment on above: Dental abscess (Prim rachele Dx); Dental caries Start: 12-24-2019 End: 12-24-2019 Emergency department patient visit [facility] ED Comment on above: Dental infection (Pr imary Dx) Start: 02-13-2018 End: 02-15-2018 Evaluation and management of inpatient FEI LOO [facility] Start: 02-20-2016 End: 02-23-2016 Evaluation and management of inpatient [facility] Start: 05-12-2015 End: 05-15-2015 Evaluation and management of inpatient [facility] Start: 02-11-2014 End: 02-14-2014 Evaluation and management of inpatient [facility] Start: 04-28-2007 End: 05-28-2007 Discharged Recurring [facility] Start: 02-27-2007 End: 03-29-2007 Discharged Recurring [facility] Start: 01-27-2007 End: 02-26-2007 Discharged Recurring [facility] Start: 11-27-2006 End: 12-27-2006 [facility] Start: 09-27-2006 End: 10-27-2006 Discharged Recurring [facility] Start: 08-27-2006 End: 09-26-2006 Discharged Recurring [facility] Start: 07-28-2006 End: 09-26-2006 Discharged Recurring [facility] Start: 06-27-2006 End: 07-27-2006 Discharged Recurring [facility] Start: 05-28-2006 End: 06-26-2006 [facility] Start: 04-27-2006 End: 05-27-2006 [facility] Start: 03-30-2006 End: 04-26-2006 [...] Ctr Start: 08-27-2005 End: 09-26-2005 [facility] Start: 06-27-2005 End: 07-27-2005 Discharged Recurring [facility] Start: 04-27-2005 End: 05-27-2005 [facility] Start: 03-30-2005 End: 04-26-2005 [facility] Start: 02-27-2005 End: 03-29-2005 [facility] Start: 01-27-2005 End: 02-26-2005 [facility] Start: 12-28-2004 Registered Recurring [facility] Start: 11-27-2004 End: 12-27-2004 Discharged Recurring [facility] Start: 11-27-2004 End: 12-27-2004 Discharged Recurring [facility] Start: 11-27-2004 Registered Recurring [facility] Start: 10-28-2004 End: 11-26-2004 Discharged Recurring [facility] Start: 10-28-2004 End: 11-26-2004 Discharged Recurring [facility] Start: 09-27-2004 End: 10-27-2004 Discharged Recurring [facility] Start: 09-27-2004 End: 10-27-2004 [facility] Start: 09-02-2004 End: 09-26-2004 [facility] Start: 09-02-2004 End: 09-26-2004 [facility] Start: 05-17-2000 End: 05-27-2000 Discharged Recurring Bryce [facility] Procedures Date Procedure Procedure Detail Performing Clinician Start: 09-12-2023 Urnls dip stick/tabl et rgnt auto w/o microscopy Brenda Stephen AUTOMOTIVE CUSTOMER EXPERIENCE ADVISOR - CNM Work Phone: Start: 09-02-2023 H/O: section History of delivery affecting Brenda Stephen AUTOMOTIVE CUSTOMER EXPERIENCE ADVISOR - CNM Work Phone: Start: 08-24-2023 Urinalysis [...] blood pressure <130 mm hg Mariposa Duncan HEALTH PRACTICE MANAGER Work Phone: Start: 07-27-2022 Urine test visual color cmprsn meths Mariposa Duncan HEALTH PRACTICE MANAGER Work Phone: Start: 06-03-2022 Diagnostic mammograp hy [...] test visual color cmprsn meths Peterson Benito AUTOMOTIVE CUSTOMER EXPERIENCE ADVISOR - HEALTH PRACTICE MANAGER Work Phone: Start: 08-17-2021 Most recent diastoli c blood pressure < 80 mm hg Kia Sharma HEALTH PRACTICE MANAGER Work Phone: Start: 08-17-2021 Most recent systolic blood pressure <130 mm hg Kia Sharma HEALTH PRACTICE MANAGER Work Phone: Start: 08-17-2021 Psychotherapy w/hussein ent 30 minutes [facility] Work Phone: Start: 07-15-2021 Most recent diastoli c blood pressure < 80 mm hg Kia Sharma HEALTH PRACTICE MANAGER Work Phone: Start: 07-15-2021 Most recent systolic blood pressure <130 mm hg Kia Sharma HEALTH PRACTICE MANAGER Work Phone: Start: 07-15-2021 Psychotherapy w/hussein ent 30 minutes Halima Argueta [facility] Work Phone: Start: 07-01-2021 Most recent diastoli c blood pressure < 80 mm hg Kia Sharma [facility] Work Phone: Start: 07-01-2021 Most recent systolic blood pressure <130 mm hg Kia Sharma HEALTH PRACTICE MANAGER Work Phone: Start: 05-28-2021 Antibody hiv-1&hiv-2 single result Kia Sharma HEALTH PRACTICE MANAGER Work Phone: Start: 05-28-2021 Most recent diastoli [...] Kia Sharma Start: 03-20-2020 section Kia Sharma [facility] Work Phone: Start: 03-20-2020 Psychotherapy w/hussein ent 30 minutes Halima Argueta Work Phone: Start: 02-25-2020 Smr prim src wet boby nt nfct agt Sid A Jr Work Phone: Start: 02-25-2020 Urinalysis microscop ic only Sid A Jr Work Phone: Start: 02-25-2020 Urine test visual color cmprsn meths Sidradha Norris Work Phone: Start: 02-25-2020 Urnls dip stick/tabl et rgnt auto w/o microscopy iSd Norris Work Phone: Start: 02-15-2018 DISCHARGE PATIENT JUSTINE LOO Start: 02-13-2018 IP CONSULT TO HISTOR Y AND PHYSICAL FEI LOO Start: 02-13-2018 DIET GENERAL FEI AMIN LEVEL DESIGNER Start: 02-13-2018 FULL CODE FEI AMIN LEVEL DESIGNER Start: 02-13-2018 URINE DRUG SCREEN JUSTINE LOO Start: 02-13-2018 Urine test visual color cmprsn meths FEI AMINPTA Start: 02-13-2018 VITAL SIGNS FEI AMIN LEVEL DESIGNER Start: 02-13-2018 PATIENT STATUS (DIRECT) FEI LOO SARS Antigen (LFIA) PHYSICIA N NO FAMILY Plan of Treatment Date Care Activity Detail Author Start: 2053 Respiratory Syncytia l Virus (RSV) or age 60 yrs+ (1 - 1-dose 60+ series) Respiratory Syncytial Virus (RSV) or age 60 yrs+ (1 - 1-dose 60+ series) [facility] Start: 03-21-2027 DTaP/Tdap/Td vaccine (2 - Td or Tdap) DTaP/Tdap/Td vaccine (2 - Td or Tdap) [facility] Start: 03-21-2027 DTaP/Tdap/Td vaccine (2 - Td) DTaP/Tdap/Td vaccine (2 - Td) [place] Start: 04-02-2025 Screening for malign ant neoplasm of cervix [facility] Start: 10-29-2023 Respiratory Syncytia l Virus (RSV) or age 60 yrs+ (1 - Risk 1-dose series) Respiratory Syncytial Virus (RSV) or age 60 yrs+ (1 - Risk 1-dose series) [facility] Start: 09-28-2023 Influenza vaccination B ON [facility] Start: 08-25-2023 Tdap Vaccine during Tdap Vaccine during [facility] Start: 04-02-2023 Screening for malign ant neoplasm of cervix [facility] Start: 09-27-2022 Influenza vaccination B ON [facility] Start: 08-25-2022 FQHC visit, estab pt Medical E stablished Patient [facility] Work Phone: Start: 07-27-2022 End: 07-27-2022 Patient education based on identified need [facility] Start: 07-27-2022 CBC W Auto Different ial panel - Blood [facility] Start: 04-25-2022 End: 04-25-2022 Patient encounter procedure 04/25/2022 Appointment Radiology Radiologist, [facility] Start: 03-04-2022 End: 03-04-2022 Incision & drainage abscess simple/single BREAST INCISION AND DRAINAGE Abscess of right breast 03/04/2022 12:36 PM [facility] Start: 10-29-2021 [facility] Work Phone: Start: 10-28-2021 Influenza vaccination Flu vacc ine (Season Ended) [facility] Start: 10-26-2021 Referral to Resident Services Coordinator [facility] Work Phone: Start: 10-26-2021 Hospital admission [facility] Work Phone: Start: 09-27-2021 Influenza vaccination Flu vaccine (# 1) [facility] Start: 09-16-2021 FQHC visit, estab pt Medical E stablished Patient [facility] Work Phone: Start: 08-17-2021 FQHC visit, estab pt Medical E stablished Patient [facility] Work Phone: Start: 08-17-2021 End: 08-17-2021 Patient education based on identified need [facility] Start: 07-15-2021 FQHC visit, estab pt Medical E stablished Patient [facility] Work Phone: Start: 07-15-2021 End: 07-15-2021 Patient education based on identified need [facility] Start: 07-01-2021 End: 07-01-2021 Patient education based on identified need [facility] Start: 05-28-2021 End: 05-28-2021 Patient education based on identified need [facility] Start: 04-14-2021 End: 04-14-2021 Patient encounter procedure 04/14/2021 Office Visit Obstetrics and Gynecology Anthony Galloway MD [address] [facility], [place] [id number] [facility] Start: 03-05-2021 FQHC visit, estab pt Medical E stablished Patient [facility] Work Phone: Start: 10-28-2020 Influenza vaccination [facility] Start: 10-14-2020 End: 10-14-2020 Admission to same day surgery center 10/14/2020 Surgery IP Unit Anthony Galloway MD [address] [facility], [place] [id number] DILATATION AND CURETTAGE LEEP-ENDOCERVICAL [facility]AGE [facility] Comment on above: DILATATION AND CURET TAGE LEEP-ENDOCERVICAL CURETTAGE Start: 10-14-2020 Subsequent hospital visit by physician 10/14/2020 Hospital Encounter IP Unit Anthony Galloway MD [address] [place] [address] [phone] [facility] Start: 10-09-2020 End: 10-09-2020 Patient encounter procedure 10/09/2020 Appointment Pre-Admission Testing [facility] PRE [facility] Start: 09-25-2020 End: 09-25-2021 COVID-19 COVID-19 Lab Routine Preop testing Expected: 09/25/2020, Expires: 09/25/2021 [facility] Work Phone: Comment on above: Expected: 09/25/2020 , Expires: 09/25/2021 Start: 04-23-2020 End: 04-23-2020 Procedure visit 04/23/2020 Procedure visit Obstetrics and Gynecology Anthony Galloway MD [address] [place] [address] [phone] [facility] Start: 04-03-2020 End: 04-03-2020 Patient education based on identified need [facility] Start: 04-03-2020 Medical Establ ished Patient [facility] Work Phone: Start: 03-20-2020 End: 03-20-2020 Patient education based on identified need [facility] Start: 10-29-2019 Influenza vaccination Flu vaccine (# 1) [place], [place] Start: 2014 Screening for malign ant neoplasm of cervix Cervical cancer screen [place], [place] Start: 2011 Hepatitis C screening Hepatitis C sc reen [facility] Start: 2009 COVID-19 Vaccine (1) COVID-19 Vaccin e (1) [facility] Work Phone: Start: 2008 HIV screening HIV screen [facility] Start: 2005 COVID-19 Vaccine (1) COVID-19 Vaccin e (1) [facility] Work Phone: Start: 2005 Depression Monitoring Depression Mon [facility] Start: 2005 Depression Screen Depression Screen [facility] Start: 2004 HPV vaccine (1 - 2-d ose series) HPV vaccine (1 - 2-dose series) [place], [place] Start: 1999 Pneumococcal 0-64 ye ars Vaccine (1 - PCV) Pneumococcal 0-64 years Vaccine (1 - PCV) [facility] Start: 1999 Pneumococcal 0-64 ye ars Vaccine (1 of 1 - PPSV23) Pneumococcal 0-64 years Vaccine (1 of 1 - PPSV23) [place] Start: 1999 Pneumococcal 0-64 ye ars Vaccine (1 of 2 - PCV) Pneumococcal 0-64 years Vaccine (1 of 2 - PCV) [facility] Start: 1999 Pneumococcal 0-64 ye ars Vaccine (1 of 2 - PPSV23) Pneumococcal 0-64 years Vaccine (1 of 2 - PPSV23) [facility] Start: 1998 COVID-19 Vaccine (1) COVID-19 Vaccin e (1) [facility] Start: 1994 Varicella vaccine (1 of 2 - 2-dose childhood series) Varicella vaccine (1 of 2 - 2-dose childhood series) [facility] Start: 1993 COVID-19 Vaccine (#1) COVID-19 Vacci ne (#1) [facility] Start: 1993 Hepatitis B vaccine (1 of 3 - 3-dose series) Hepatitis B vaccine (1 of 3 - 3-dose series) [facility] Start: 1993 Hepatitis C screening Hepatitis C sc reen [facility] End: 08-24-2023 Bacteria identified in Urine by Culture Urine culture Microbiology Routine One Time for 1 Occurrences starting 08/24/2023 until 08/24/2023 [facility] Comment on above: One Time for 1 Occur rences starting 08/24/2023 until 08/24/2023 End: 09-12-2023 Bacteria identified in Urine by Culture Urine culture Microbiology Routine One Time for 1 Occurrences starting 09/12/2023 until 09/12/2023 [facility] Comment on above: One Time for 1 Occur rences starting 09/12/2023 until 09/12/2023 End: 02-25-2020 C.trachomatis N.gonorrhoeae DNA C.trachomatis N.gonorrhoeae DNA Microbiology STAT One Time for 1 Occurrences starting 02/25/2020 until 02/25/2020 [facility] [place] Comment on above: One Time for 1 Occur rences starting 02/25/2020 until 02/25/2020 C.trachomatis N.gonorrhoeae DNA C.trachomatis N.gonorrhoeae DNA Microbiology STAT 02/25/2020 10:29 PM EST [place], [place] Culture, Anaerobic a nd Aerobic [facility] Work Phone: Comment on above: Release Upon Orderin g for 1 Occurrences starting 03/04/2022 End: 03-25-2021 Culture, Genital [facility] Work Phone: Comment on above: 1 Occurrences starti ng 03/25/2021 until 03/25/2021 End: 08-03-2022 Culture, Urine [email or web address] Phone: Comment on above: Once for 1 Occurrenc es starting 08/03/2022 until 08/03/2022 End: 05-01-2023 Culture, Urine [email or web address] Phone: Comment on above: Once for 1 Occurrenc es starting 05/01/2023 until 05/01/2023 End: 05-29-2021 Culture, Virus, Non Respiratory Culture, Virus, Non Respiratory Microbiology Routine Once for 1 Occurrences starting 05/29/2021 until 05/29/2021 [email or web address] Phone: Comment on above: Once for 1 Occurrenc es starting 05/29/2021 until 05/29/2021 Culture, Virus, Non Respiratory Culture, Virus, Non Respiratory Microbiology Routine 05/28/2021 11:57 PM EDT [email or web address] Phone: End: 04-02-2020 Cytopathology procedure, preparation of smear, genital source PAP SMEAR Lab Routine Women's annual routine gynecological examination 1 Occurrences starting 04/02/2020 until 04/02/2020 [email or web address] Comment on above: 1 Occurrences starti ng 04/02/2020 until 04/02/2020 nonstress test nonst ress test OB Routine Daily until discontinued starting 08/25/2023 [email or web address] Phone: Comment on above: Daily until disconti nued starting 08/25/2023 nonstress test nonst ress test OB Routine Daily until discontinued starting 09/13/2023 [email or web address] Phone: Comment on above: Daily until disconti nued starting 09/13/2023 End: 05-01-2023 HIV Screen [email or web address] Comment on above: Once for 1 Occurrenc es starting 05/01/2023 until 05/01/2023 End: 03-04-2022 INITIATE PACU OXYGEN THERAPY PROTOCOL Initiate PACU Oxygen Therapy Protocol Respiratory Care Routine Continuous until discontinued starting 03/04/2022 [email or web address] Phone: Comment on above: Continuous until dis continued starting 03/04/2022 Oxygen therapy [Mini mum Data Set] Initiate Oxygen Therapy Protocol Respiratory Care Routine Daily until discontinued starting 10/14/2020 [email or web address] Phone: Comment on above: Daily until disconti nued starting 10/14/2020 Oxygen therapy [Mini mum Data Set] Initiate Oxygen Therapy Protocol Respiratory Care Routine As Needed until discontinued starting 03/04/2022 [email or web address] Work Phone: Comment on above: As Needed until disc ontinued starting 03/04/2022 Patient Education Schizophrenia (DC) [facility] [place] Instructions [facility] Work Phone: Patient referral [facility] Work Phone: Phase I & II - meter ed glucose Phase I & II - metered glucose Point of Care Testing Routine As Needed until discontinued starting 10/14/2020 [email or web address] Phone: Comment on above: As Needed until disc ontinued starting 10/14/2020 End: 08-19-2020 Surgical Pathology Surgical Pathology Lab Routine HGSIL (high grade squamous intraepithelial lesion) on Pap smear of cervix 1 Occurrences starting 08/19/2020 until 08/19/2020 [email or web address] Phone: Comment on above: 1 Occurrences starti ng 08/19/2020 until 08/19/2020 Surgical Pathology Surgical Path ology Lab Routine Release Upon Ordering for 1 Occurrences starting 10/14/2020 [email or web address] Phone: Comment on above: Release Upon Orderin g for 1 Occurrences starting 10/14/2020 End: 08-24-2023 SVE SVE Point of Care Testing Routine One Time for 1 Occurrences starting 08/24/2023 until 08/24/2023 [email or web address] Comment on above: One Time for 1 Occur rences starting 08/24/2023 until 08/24/2023 End: 09-12-2023 SVE SVE Point of Care Testing Routine One Time for 1 Occurrences starting 09/12/2023 until 09/12/2023 [email or web address] Comment on above: One Time for 1 Occur rences starting 09/12/2023 until 09/12/2023 End: 05-01-2023 Calixto levi Ab [email or web address] Comment on above: Once for 1 Occurrenc es starting 05/01/2023 until 05/01/2023 Immunizations Immunization Date Immunization Notes Care Provider Ralf kim 02-26-2019 Influenza, injectabl e, Madin Yuki Canine Kidney, preservative free, quadrivalent PHYSICIAN NO [facility] Payers Date Payer Category Payer Private Health Insurance [id number] 2021 Self-pay 1993 Unknown [id number] 2.16.8 [id number] 1993 Unknown [id number] 2.16. [id number] 1993 Unknown [id number] 2.16.84 [id number] 1993 Unknown [id number] 2.16.8 [id number] 1993 Unknown [id number] 2.16.8 [id number] 1993 Unknown [id number] 2.16.8 40.1.765085.3.579.2.173 1993 Unknown [id number] 2.16.8 40.1.284604.3.579.2.173 1993 Unknown [id number] 2.16.8 40.1.488299.3.579.2.173 1993 Unknown [id number] 2.16.8 40.1.548203.3.579.2.173 1993 Unknown [id number] 2.16.8 40.1.563810.3.579.2.173 1993 Unknown [id number] 2.16.8 40.1.678010.3.579.2.173 1993 Unknown [id number] 2.16.84 0.1.306758.3.579.2.9 1993 Unknown [id number] 2.16.84 0.1.335568.3.579.2.9 1993 Unknown [id number] 2.16.84 0.1.104649.3.579.2.9 1993 Unknown [id number] 2.16.84 0.1.996168.3.579.2.1258 1993 Unknown [id number] 2.16.84 0.1.357020.3.579.2.9 1993 Unknown [id number] 2.16.84 0.1.860594.3.579.2.9 1993 Unknown [id number] 2.16.84 0.1.382110.3.579.2.9 1993 Unknown [id number] 2.16.84 0.1.413057.3.579.2.9 1993 Unknown [id number] 2.16.84 0.1.069635.3.579.2.9 1993 Unknown [id number] 2.16.84 0.1.262068.3.579.2.1259 1961 Medicaid [id number] Unknown [id number] 2.16.8 [id number] Social History Date Type Detail Facility Start: 12-24-2019 End: 03-01-2022 Tobacco smoking status NHIS Current every day smoker [place], [place] History of tobacco use Cigarette Smoker [place] Start: 12-24-2019 End: 09-04-2023 Cigarettes smoked current (pack per day) - Reported [place] Start: 12-24-2019 End: 09-12-2023 Tobacco use and exposure Never used [place], [place] Start: 12-24-2019 End: 09-12-2023 Alcohol intake Current non-drinker of alcohol (finding) [place], [place] Start: 1993 Sex Assigned At Not on file [place] Start: 02-19-2022 End: 04-24-2022 Exposure to SARS-CoV-2 (event) Not [place], [place] Assertion Exposure to poll ution (event) [facility] Assertion Tobacco user (finding) [facility] Tobacco smoking status Unknown i f ever smoked [facility] Work Phone: Assertion Social drinker (finding) [facility] Sexually active (finding) [facility] Assertion [facility] Assertion Gender identity finding (finding) [facility] Finding of sexua l orientation (finding) [facility] Moderate cigaret te smoker (10-19 cigs/day) (finding) [facility] Assertion Heavy cigarette smoker (20-39 cigs/day) (finding) [facility] Start: 10-27-2021 Assertion Smoker (finding) [facility] Start: 1995 Sex Assigned At Female F [facility] Start: 03-01-2022 History SDOH Alcohol Frequency 1 [email or web address] Work Phone: Start: 03-01-2022 History SDOH Alcohol Std Drinks 0 [email or web address] Work Phone: Start: 03-04-2022 Alcohol Comment barely ever- sociall y [email or web address] Work Phone: Start: 03-01-2022 End: 09-04-2023 Alcohol Use Disorder Identification Test - Consumption [AUDIT-C] [email or web address] How often to you hav e a drink containing alcohol? Never [email or web address] Start: 09-12-2023 Tobacco smoking stat us MIIS Ex-smoker [email or web address] Start: 03-03-2023 [facility] [employer] NEGATED: Highlighted row Assertion [facility] NEGATED: Highlighted row Assertion Current drinker of alcohol (finding) [facility] NEGATED: Highlighted row Assertion Exposure to pollution (event) [facility] Work Phone: Goals Date Patient Goal Desired Activity /State Functional Status Date Assessment Result Facility 10-29-2021 Functional status Patient at Baseline [facility] Work Phone: Mental Status Date Assessment Result Facility 10-29-2021 Cognitive function Cognitive Sta tus Patient at Baseline [facility] Work Phone: Cognitive function Cognitive fun ctioning was normal Cognitive function finding (finding) [facility] Work Phone: Clinical Notes 03-20-2020 [...] may be discharged. 28yo F arrives to [facility] with c/o vaginal discharge, increased [...] pt that she would be [facility] as we do not deliver less than 35 weeks unless emergent. Pt placed on EFM at this time, urine specimen collected and sent to lab. documented in this encounter [facility] 09-12-2023 [facility] Discharg Ana Quintero RN - 09/12/2023 6:51 PM EDT [facility] [address] [id number] [phone] ACTIVITY LIMITATIONS: ( )Up and about as [...] be sent through Care Everywhere.: Abdominal Pain (Italian)documented in this encounter [facility] 08-24-2023 Hospital Discharg e instructions Iman Malhotra RN - 08/24/2023 8:40 PM EDT OUTPATIENT DISCHARGE Dr. Laverne Meyer [facility] Dr. Delano Kruse [facility] [address] [facility] [address] [facility] [id number] [place] [address] or [place] ACTIVITY LIMITATIONS: ( x )Up and about [...] AND DELIVERY . documented in this encounter [facility] 08-03-2022 Hospital Discharg e instructions [...] cannot be sent through Care Everywhere.Flank Pain (Italian)UTI (Urinary Tract Infection): Female (Italian)documented in this encounter [facility] [employer] Phone: 07-27-2022 Instructions Includes: Instructions for all patient encounters Discussed nutritional needs teach healthy choices including fruits and vegetables Last Documented On 3 6:56PM ; [facility] Patient education about a pr oper diet Last Documented On 3 6:56PM ; [facility] Patient education about an a sthma action plan Last Documented On 3 8:31AM ; [facility] Discussed concerns about exe rcise : promote physical activity ~ ~Will add symbicort ~ ~Follow up in one month Last Documented On 3 10:19AM ; [facility] Discussed current self-care methods/coping skills. ~Validated and normalized pt?s feelings while assisting patient process recent events. ~Discussed ongoing counseling. ~Discussed lifestyle changes to address chronic illness. ~Supported patient's personal health goals Last Documented On 2 4:59PM ; [facility] Discussed nutritional needs teach healthy choices including fruits and vegetables Last Documented On 2 4:50PM ; [facility] Patient education about a pr oper diet Last Documented On 2 4:50PM ; [facility] Discussed concerns about exe rcise : promote physical activity Last Documented On 2 4:50PM ; [facility] Discussed current self-care methods/coping skills. ~Validated and normalized pt?s feelings while assisting patient process recent events. ~Discussed ongoing counseling. ~Discussed lifestyle changes to address chronic illness. ~Supported patient's personal health goals Last Documented On 2 8:09PM ; [facility] Discussed nutritional needs teach healthy choices including fruits and vegetables Last Documented On 2 4:02PM ; [facility] Patient education about a pr oper diet Last Documented On 2 4:02PM ; [facility] Discussed concerns about exe rcise : promote physical activity Last Documented On 2 4:02PM ; [facility] Discussed nutritional needs teach healthy choices including fruits and vegetables Last Documented On 2 5:37PM ; [facility] Patient education about a pr oper diet Last Documented On 2 5:37PM ; [facility] Discussed concerns about exe rcise : promote physical activity Last Documented On 2 5:37PM ; [facility] Discussed nutritional needs teach healthy choices including fruits and vegetables Last Documented On 2 6:48PM ; [facility] Patient education about a pr oper diet Last Documented On 2 6:48PM ; [facility] Discussed concerns about exe rcise : promote physical activity Last Documented On 2 6:48PM ; [facility] Discussed nutritional needs teach healthy choices including fruits and vegetables Last Documented On 1 4:21PM ; [facility] Patient education about a pr oper diet Last Documented On 1 4:21PM ; [facility] Discussed concerns about exe rcise : promote physical activity Last Documented On 1 4:21PM ; [facility] Explored current self-care m ethods and encouraged patient to continue using them Last Documented On 1 7:54PM ; [facility] Discussed nutritional needs teach healthy choices including fruits and vegetables Last Documented On 1 11:53AM ; [facility] Patient education about a pr oper diet Last Documented On 1 11:53AM ; [facility] Discussed concerns about exe rcise : promote physical activity Last Documented On 1 11:53AM ; [facility] Work Phone: [phone]) 871-900705-31-2023 Evaluation note Includes: Assessments for all patient encounters Findings Encounter Date [Body mass index [BMI] 22.0- 22.9, adult] assessment of body mass index Medical Established Patient with Mariposa Duncan CNP 07/27/2022 Last Documented On 3 10:19AM ; [facility] Diabetes Risk Test Score was 0.0 score 07/27/2022 Medical Established Patient with Mariposa Perla HEALTH PRACTICE MANAGER 07/27/2022 Last Documented On 3 10:19AM ; [facility] Esophageal reflux without esophagitis Me dical Established Patient with Mariposa Perla HEALTH PRACTICE MANAGER 07/27/2022 Last Documented On 3 10:19AM ; [facility] Schizoaffective disorder Established Patient with Halima Argueta [facility] 08/17/2021 Last Documented On 2 9:40PM ; [facility] Asthma Medical Established Patient with Kia Edith HEALTH PRACTICE MANAGER 08/17/2021 Last Documented On 2 6:20PM ; [facility] Esophageal reflux without esophagitis Me dical Established Patient with Kia Edith HEALTH PRACTICE MANAGER 08/17/2021 Last Documented On 2 6:20PM ; [facility] Schizoaffective disorder Medical Establi shed Patient with Kia Edith [facility] 08/17/2021 Last Documented On 2 6:20PM ; [facility] Z68.20 - Body mass index [BM I] 20.0-20.9, adult Medical Established Patient with Kia Edith HEALTH PRACTICE MANAGER 08/17/2021 Last Documented On 2 6:20PM ; [facility] Schizoaffective disorder Established Patient with Halima Argueta LP[facility] 07/15/2021 Last Documented On 2 11:18AM ; [facility] Schizoaffective disorder Established Patient with Halima Argueta [facility] 07/15/2021 Last Documented On 2 11:18AM ; [facility] Bipolar disorder NOS Medical Established Patient with Kia Edith HEALTH PRACTICE MANAGER 07/15/2021 Last Documented On 2 9:30AM ; [facility] Esophageal reflux without esophagitis Me dical Established Patient with Kia Edith HEALTH PRACTICE MANAGER 07/15/2021 Last Documented On 2 9:30AM ; [facility] Herpes simplex type I Medical Established Patien t with Kia Edith [facility] 07/15/2021 Last Documented On 2 9:30AM ; [facility] Z68.1 - Body mass index [BMI ] 19.9 or less, adult Medical Established Patient with Kia Edith HEALTH PRACTICE MANAGER 07/15/2021 Last Documented On 2 9:30AM ; [facility] Asthma Medical Established Patient with Kia Edith HEALTH PRACTICE MANAGER 07/01/2021 Last Documented On 2 7:44PM ; [facility] Bipolar disorder NOS Medical Established Patient with Kia Edith HEALTH PRACTICE MANAGER 07/01/2021 Last Documented On 2 7:44PM ; [facility] Herpes simplex type I Medical Established Patien t with Kia Edith HEALTH PRACTICE MANAGER 07/01/2021 Last Documented On 2 7:44PM ; [facility] Schizoaffective disorder Medical Establi shed Patient with Kia Edith HEALTH PRACTICE MANAGER 07/01/2021 Last Documented On 2 7:44PM ; [facility] Z68.20 - Body mass index [BM I] 20.0-20.9, adult Medical Established Patient with Kia Edtih HEALTH PRACTICE MANAGER 07/01/2021 Last Documented On 2 7:44PM ; [facility] Diabetes Risk Test Score was one score 05/28/2021 Medical Established Patient with Kia Edith HEALTH PRACTICE MANAGER 05/28/2021 Last Documented On 2 8:39AM ; [facility] Herpes simplex type I Medical Established Patien t with Kia Edith HEALTH PRACTICE MANAGER 05/28/2021 Last Documented On 2 8:39AM ; [facility] No cough Medical Established Patient with Kia Edith HEALTH PRACTICE MANAGER 05/28/2021 Last Documented On 2 8:39AM ; [facility] Visit for: screening for hum an immunodeficiency virus Medical Established Patient with Kia Edith HEALTH PRACTICE MANAGER 05/28/2021 Last Documented On 2 8:39AM ; [facility] Z11.59 - Encounter for nettie kauffman for other viral diseases Medical Established Patient with Kia Edith HEALTH PRACTICE MANAGER 05/28/2021 Last Documented On 2 8:39AM ; [facility] Z68.1 - Body mass index [BMI ] 19.9 or less, adult Medical Established Patient with Kia Edith HEALTH PRACTICE MANAGER 05/28/2021 Last Documented On 2 8:39AM ; [facility] Asthma Medical Established Patient with Kia Sharma HEALTH PRACTICE MANAGER 04/03/2020 Last Documented On 1 1:12PM ; [facility] Body mass index Medical Established Patient with Kia Sharma HEALTH PRACTICE MANAGER 04/03/2020 Last Documented On 1 1:12PM ; [facility] Esophageal reflux without esophagitis Me dical Established Patient with Kia Sharma HEALTH PRACTICE MANAGER 04/03/2020 Last Documented On 1 1:12PM ; [facility] Lower backache Medical Established Patient with Kia Sharma HEALTH PRACTICE MANAGER 04/03/2020 Last Documented On 1 1:12PM ; [facility] Bipolar disorder (per denia vega, diagnosed w/both Bipolar I & II) Telebehavioral Health with Halima Marroquins LP[facility] 03/20/2020 Last Documented On 1 7:55PM ; [facility] Schizoaffective disorder (pe r patient report) Telebehavioral Health with [place] Condonmons LPCC-S 03/20/2020 Last Documented On 1 7:55PM ; [facility] Asthma Telemedicine New Patient with An michelle Sharma HEALTH PRACTICE MANAGER 03/20/2020 Last Documented On 1 9:48AM ; [facility] Lumbago Telemedicine New Patient with An michelle Sharma HEALTH PRACTICE MANAGER 03/20/2020 Last Documented On 1 9:48AM ; [facility] Z68.21 - Body mass index [BM I] 21.0-21.9, adult Telemedicine New Patient with Kia Sharma HEALTH PRACTICE MANAGER 03/20/2020 Last Documented On 1 9:48AM ; [facility] Work Phone: 1([phone]) 398-387005-31-2023 Progress note* Progress note Date Encounter Last Documented by 07/27/2022 Medical Established Patient Last documented on 07/28/2022; 10:19 AM, Mariposa Duncan CNP; [facility] Active Problems & Conditions - J45.998 - Asthma - M54.50 - Backache Lower - K21.9 - Esophageal Reflux Without Esophagitis - 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 - F25.0 - Schizoaffective Disorder Chief Complaint The Chief Complaint is: Patient states feels like gerd is coming back, patient states that burps smell like rotten eggs or drapery sewer hand went to ER for migraines. Referred Here [...] BP-Sitting L117/63 mmHg BP Cuff SizeRegular Pulse Rate-Auvatfh28 bpm Temp-Redtgsot06.3 F Rweent10 in Hzwovg864 lbs 4.8 oz Body Mass Index22 kg/m2 Body Surface Area1.8 m2 Oxygen Wvsrpmvakm69 % General Appearance: - Awake. - Alert. [...] were unable to get needed child and youth program assistant: No and unable to get other needs [...] Less than 40 years (0 points) [Pre-DM]. [facility]05-31-2023 Reason for referral (narrative)* Date Encounter Description Provider Reason for Referral 07/27/22 Medical Established Patient Mariposa Duncan HEALTH PRACTICE MANAGER Referral To Mental Health Team; JENIFFER Referral For [facility] Work Phone: 1(233) 170-251902-26-2023 Hospital Discharge instructions* Discharge Instructions* Christopher Stephenson [...] through Care Everywhere. * Nausea and Vomiting (Italian) [facility]: 1(405) 341-883101-06-2023 History of Present illness Narrative* Martha Melgoza [...] smoked today 03/03/22. [facility] Phone: 1([phone]) 841-183401-06-2023 Hospital Discharge instructions* Discharge Instructions* Kassidy Davidson [...] to bathe or shower. [facility] Access Phone: 1(107) 409-408501-03-2023 Hospital Discharge instructions* Discharge Instructions* Nicholas Denton MD - 03/01/2022 8:09 AM EST Take your medications as prescribed. You may take Tylenol Motrin as needed for pain control as wellas warm compresses. Follow-up with your OB classroom aide as scheduled. You have been given a referral for general surgeon if this continues for further assessment of possible drainage. * Attachments The following attachments cannot be sent through Care Everywhere. * Cellulitis (Italian) [facility] Access Phone: 1(971) 857-848106-21-2022 Evaluation note Includes: Assessments for all patient encounters Findings Encounter Date Schizoaffective disorder Established Patient with Halima Argueta LPCC-S 08/17/2021 Asthma Medical Established Patient with Kia Sharma CNP 08/17/2021 Esophageal reflux without esophagitis Me dical Established Patient with Kia Edith HEALTH PRACTICE MANAGER 08/17/2021 Schizoaffective disorder Medical Establi shed Patient with Kia Sharma [facility] 08/17/2021 Z68.20 - Body mass index [BM I] 20.0-20.9, adult Medical Established Patient with Kia Edith HEALTH PRACTICE MANAGER 08/17/2021 Schizoaffective disorder BH Established Patient with Halimachuck Marroquins [facility] 07/15/2021 Schizoaffective disorder BH Established Patient with Halima Argueta [facility] 07/15/2021 Bipolar disorder NOS Medical Established Patient with Kia Edith HEALTH PRACTICE MANAGER 07/15/2021 Esophageal reflux without esophagitis Me dical Established Patient with Kia Edith HEALTH PRACTICE MANAGER 07/15/2021 Herpes simplex type I Medical Establishe d Patient with Kia Sharma [facility] 07/15/2021 Z68.1 - Body mass index [BMI ] 19.9 or less, adult Medical Established Patient with Kia Edith [facility] 07/15/2021 Asthma Medical Established Patient with Kia Sharma HEALTH PRACTICE MANAGER 07/01/2021 Bipolar disorder NOS Medical Established Patient with Kia Edith [facility] 07/01/2021 Herpes simplex type I Medical Establishe d Patient with Kia Edith [facility] 07/01/2021 Schizoaffective disorder Medical Establi shed Patient with Kia Sharma [facility] 07/01/2021 Z68.20 - Body mass index [BM I] 20.0-20.9, adult Medical Established Patient with Kia Edith [facility] 07/01/2021 Diabetes Risk Test Score was one score 05/28/2021 Medical Established Patient with Kia Edith [facility] 05/28/2021 Herpes simplex type I Medical Establishe d Patient with Kia Edith [facility] 05/28/2021 No cough Medical Established Patient with Kia Edith [facility] 05/28/2021 Visit for: screening for hum an immunodeficiency virus Medical Established Patient with Kia Edith [facility] 05/28/2021 Z11.59 - Encounter for nettie kauffman for other viral diseases Medical Established Patient with Kia Edith [facility] 05/28/2021 Z68.1 - Body mass index [BMI ] 19.9 or less, adult Medical Established Patient with Kia Edith [facility] 05/28/2021 Asthma Medical Established Patient with Kia Edith HEALTH PRACTICE MANAGER 04/03/2020 Body mass index Medical Established Patient with Kia Edith [facility] 04/03/2020 Esophageal reflux without esophagitis Me dical Established Patient with Kia Sharma HEALTH PRACTICE MANAGER 04/03/2020 Lower backache Medical Established Patient with Kia Edith HEALTH PRACTICE MANAGER 04/03/2020 Bipolar disorder (per denia vega, diagnosed w/both Bipolar I & II) Telebehavioral Health with [place] Marroquins [facility] 03/20/2020 Schizoaffective disorder (pe r patient report) Telebehavioral Health with Halima Argueta [facility] 03/20/2020 Asthma Telemedicine New Pat ient with Kia Sharma HEALTH PRACTICE MANAGER 03/20/2020 Lumbago Telemedicine New Pat ient with Kia Edith [facility] 03/20/2020 Z68.21 - Body mass index [BM I] 21.0-21.9, adult Telemedicine New Patient with Kia Sharma HEALTH PRACTICE MANAGER 03/20/2020 [facility] Work Phone: 1([phone] 202-291505-19-2022 Evaluation note Includes: Assessments for all patient encounters Findings Encounter Date Schizoaffective disorder Established Patient [facility] [facility] 07/15/2021 Schizoaffective disorder Established Patient with [facility]gu[facility] 07/15/2021 Bipolar disorder NOS Medical Established Patient with Kia Sharma HEALTH PRACTICE MANAGER 07/15/2021 Esophageal reflux without esophagitis Me dical Established Patient with Kia Sharma HEALTH PRACTICE MANAGER 07/15/2021 Herpes simplex type I Medical Establishe d Patient with Kia Sharma [facility] 07/15/2021 Z68.1 - Body mass index [BMI ] 19.9 or less, adult Medical Established Patient with Kia Sharma HEALTH PRACTICE MANAGER 07/15/2021 Asthma Medical Established Patient with Kia Edith HEALTH PRACTICE MANAGER 07/01/2021 Bipolar disorder NOS Medical Established Patient with Kia Edith HEALTH PRACTICE MANAGER 07/01/2021 Herpes simplex type I Medical Establishe d Patient with Kia Edith HEALTH PRACTICE MANAGER 07/01/2021 Schizoaffective disorder Medical Establi shed Patient with Kia Sharma HEALTH PRACTICE MANAGER 07/01/2021 Z68.20 - Body mass index [BM I] 20.0-20.9, adult Medical Established Patient with Kiajace Sharma HEALTH PRACTICE MANAGER 07/01/2021 Diabetes Risk Test Score was one score 05/28/2021 Medical Established Patient with Kia Sharma HEALTH PRACTICE MANAGER 05/28/2021 Herpes simplex type I Medical Establishe d Patient with Kia Edith [facility] 05/28/2021 No cough Medical Established [...] & II) Telebehavioral Health with Halima Argueta [facility] 03/20/2020 Schizoaffective disorder (pe r patient report) Telebehavioral Health with Halima Argueta [facility] 03/20/2020 Asthma Telemedicine New Pat ient with Kia Sharma [facility] 03/20/2020 Lumbago Telemedicine New Pat ient with Kia Sharma [facility] 03/20/2020 Z68.21 - Body mass index [BM I] 21.0-21.9, adult Telemedicine New Patient with Kia Sharma [facility] 03/20/2020 [facility] Work Phone: 1([phone]) [phone] Evaluation note Includes: Assessments for all patient encounters Findings Encounter Date Asthma Medical Established Patient with Kia Sharma [facility] 07/01/2021 Bipolar disorder NOS Medical Established Patient with Kia Sharma [facility] 07/01/2021 Herpes simplex type I Medical Establishe d Patient with Kia Sharma [facility] 07/01/2021 Schizoaffective disorder Medical Establi shed Patient with Kia Sharma [facility] 07/01/2021 Z68.20 - Body mass index [BM I] 20.0-20.9, adult Medical Established Patient with Kia Sharma [facility] 07/01/2021 Diabetes Risk Test Score was [...] & II) Telebehavioral Health with Halima Argueta [facility] 03/20/2020 Schizoaffective disorder (pe r patient report) Telebehavioral Health with Halima Argueta [facility] 03/20/2020 Asthma Telemedicine New Pat ient with Kia Sharma [facility] 03/20/2020 Lumbago Telemedicine New Pat ient with Kia Sharma [facility] 03/20/2020 Z68.21 - Body mass index [BM I] 21.0-21.9, adult Telemedicine New Patient with Kia Sharma [facility] 03/20/2020 [facility] Work Phone: 1(193) 456-578504-01-2022 Evaluation note Includes: Assessments for all patient [...] & II) Telebehavioral Health with Halima Marroquins [facility] 03/20/2020 Schizoaffective disorder (pe r patient report) Telebehavioral Health with Halima Condonmons [facility] 03/20/2020 Asthma Telemedicine New Pat ient with Kia Sharma [facility] 03/20/2020 Lumbago Telemedicine New Pat ient with Kia Sharma [facility] 03/20/2020 Z68.21 - Body mass index [BM I] 21.0-21.9, adult Telemedicine New Patient with Kia Sharma [facility] 03/20/2020 [facility] Work Phone: 1([phone]) 262-232208-18-2021 History of Present illness Narrative* Irish Nelson [...] RN - 10/14/2020 12:39 PM EDT Rogers [employer] OPERATOR in to see patient. Patient's boyfriend called to picker / packer. * Rufina Hamilton RN - 09/28/2020 7:52 [...] calls at this time. [facility] Work Phone: 1([phone]) [phone] Evaluation note Includes: Assessments for all patient [...] & II) Telebehavioral Health with Halima Argueta [facility] 03/20/2020 Schizoaffective disorder (pe r patient report) Telebehavioral Health with Halima Argueta [facility] 03/20/2020 Asthma Telemedicine New Pat ient with Kia Sharma [facility] 03/20/2020 Lumbago Telemedicine New Pat ient with Kia Sharma [facility] 03/20/2020 Z68.21 - Body mass index [BM I] 21.0-21.9, adult Telemedicine New Patient with Kia Sharma [facility] 03/20/2020 [facility] Work Phone: 1([phone]) 418-653301-22-2021 History general Narrative - Reported Includes: Medical History in patient's chart Description Last Updated per pt report- 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 ~heartb urn 03/20/2020 History of psychiatric disor ders ADHD, manic bipolar 1 and 2, schizoeffective disorder 03/20/2020 History of tooth extraction 03/20/2020 History of asthma 03/20/2020 A recent immunization for flu 03/20/2020 No previous hospitalizations 03/20/2020 [facility] Work Phone: 1(301) 108-952501-22-2021 History general Narrative - Reported Includes: Medical History in patient's chart Description Last Updated per pt report- 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 ~heartb urn 03/20/2020 Last Documented On 1 9:48AM ; [facility] History of psychiatric disor ders ADHD, manic bipolar 1 and 2, schizoeffective disorder 03/20/2020 Last Documented On 1 9:48AM ; [facility] History of tooth extraction 03/20/2020 Last Documented On 1 9:48AM ; [facility] History of asthma 03/20/2020 Last Documented On 1 9:48AM ; [facility] A recent immunization for flu 03/20/2020 Last Documented On 1 9:48AM ; [facility] No previous hospitalizations 03/20/2020 Last Documented On 1 9:48AM ; [facility] Work Phone: Discharge summary Author Osmani baugh [facility] October 29, 2021 9:52am Note Date/Time October 29, 2021 9:52am [facility] [address] [place] [address] Discharge Summary Signed Patient: Bennett Vaughn MR#: [id number] : 1995 Acct:[id number] Age/Sex: 26 / F Adm Date: 2 Loc: Room: [address] [place] [address]: Feliberto Faust MD Copies to: [...] Days Qty: 30 1RF Follow Up: [facility] Resident Services Coordinator [Other] (Therapy: Case management: ) Documented By: Osmani Timmons MD 2 0949 Signed By: <Electronically signed by Osmani Timmons MD> 10/29/21 0952 [facility] Work Phone: Evaluation note* Diagnosis HGSIL (high grade squamous intraepithelial lesion) on Pap smear of cervix documented in this encounter [email or web address] Phone: evaluation note* Diagnosis Preop testing- Primary Preoperative examination, unspecified documented in this encounter [email or web address] Phone: [email or web address] note* Diagnosis Preop testing Preoperative examination, unspecified documented in this encounter [email or web address] Phone: [email or web address] note* Diagnosis 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 documented in this encounter [email or web address] Phone: [email or web address] note* Diagnosis Irregular menstrual cycle documented in this encounter [email or web address] Phone: evaluation note* Diagnosis Vaginal discharge Leukorrhea, not specified as infective documented in this encounter [email or web address] Phone: evaluation note* Diagnosis Onset Date Resolution Status Bipolar affective, mixed, sev w/ psych acute Chronic schizophrenia acute PTSD (post-traumatic stress disorder) acute Suicidal ideation acute [facility] Work Phone: Evaluation note* Diagnosis Cellulitis of right breast- Primary documented in this encounter [email or web address] Work Phone: evaluation note* Diagnosis Abscess of right breast- Primary Inflammatory disease of breast Abscess of right breast Inflammatory disease of breast documented in this encounter [email or web address] Work Phone: evaluation note* Diagnosis Nausea vomiting and diarrhea- Primary Nausea with vomiting documented in this encounter [email or web address] Work Phone: evaluation note* Diagnosis Abscess of female breast Inflammatory disease of breast documented in this encounter [facility] Work Phone: evaluation note* Diagnosis Flank pain- Primary Abdominal pain, unspecified site Urinary tract infection without hematuria, site unspecified documented in this encounter [email or web address] Work Phone: evaluation note* Diagnosis Abdominal pain- Primary Abdominal pain, unspecified site documented in this encounter [facility]* Diagnosis Abdominal cramping- Primary Abdominal pain, unspecified site documented in this encounter [facility] and [facility] note Author Feliberto Faust [facility] October 27, 2021 3:07pm Note Date/Time October 27, 2021 3: 07pm [facility] [address] [place] [address] Psychiatry H&P Signed Patient: Bennett Vaughn MR#: [id number] : 1995 Acct:[id number] Age/Sex: 26 / F Adm Date: 2 Loc: Room: [address] [place] [address] Type: ADM IN Attending Dr: Feliberto Faust [...] Substance Use: luciejauna daily Living: boyfriend Employment: [employer] Review of symptoms: Constitutional: Denies chills [...] Appearance Clear Urine pH 7.0 Ur Specific [place] 1.005 Urine Protein Negative Urine Glucose (UA) [...] signed by Feliberto Faust MD> 10/27/21 1507 [facility] Work Phone: History of Present illness Narrative History of Present Illness not supported for this document type No History of Present Illness Record[facility] Work Phone: Hospital Discharge instructions* [...] In the meantime, you may take an xirt-wjh-qwjnqlt analgesic (Tylenol, Anacin, etc.) and use a heating pad applied to the lower abdomen. Please call the office as soon as possible for a post-operative visit in two weeks. If you experience any unusual amount of bleeding or side effects that you cannot readily explain, please do not hesitate to call the office. documented in this [facility] Work Phone: Hospital Discharge instructions Additional Instructions Regular diet No [facility] Work Phone: Instructions Instructions not supported for this document type No Instructions [facility] Work Phone: Patient problem outcome Narrative Includes: Evaluations & Outcomes for active Goals No Outcomes [facility] Work Phone: Progress note Author Osmani baugh [facility] October 28, 2021 12:18pm Note Date/Time October 28, 2021 12:18pm [facility] [address] [place] [address] Psychiatry Progress Note Signed Patient: Bennett Vaughn MR#: [id number] : 1995 Acct:[id number] Age/Sex: 26 / F Adm Date: 2 Loc: Room: 1U7823-8 Type : ADM IN Attending Dr: Feliberto [...] signed by Osmani Timmons MD> 10/28/21 1218 [facility] Work Phone: Reason for referral (narrative)No Reason for Referral Record[facility] Work Phone: Review of systems Narrative - Reported Review of Systems not supported for this document type No Review of Systems [facility] Work Phone: Summary Purpose Family History No Family History Records Found Description Last Updated father unknown 03/20/2020 Fraternal history of asthma 03/20/2020 Maternal history of hypertension 021 Relationship Condition Age at Onset Recorded Date/T jama Not Specified Bipolar affective disorder Unknown Hypertension Unknown brother Asthma Unknown Description Last Updated father unknown 03/20/2020 Last Documented On 1 9:48AM ; [facility] Fraternal history of asthma 03/20/2020 Maternal history of hypertension 021 Advance Directives No Advanced Directives Records FoundDocuments on File Type Date Recorded Patient Technical Fellow Expl anation ACP-Advance Directive ACP-Power of Mat Inspector Latest Code Status on File Code Status Date Activated Date Inactivated Comments Full Code 02/13/2018 11:30 AM 02/15/2018 11:04 PM Full Code 07/15/2017 3:32 AM 07/17/2017 3:26 PM Full Code 07/15/2017 3:31 AM 07/15/2017 3:32 AM Full Code 10/29/2016 5:43 AM 11/02/2016 12:08 AM Full Code 02/14/2015 3:50 AM 02/17/2015 4:19 PM Documents on File Type Date Recorded Patient Technical Fellow Expl anation ACP-Advance Directive ACP-Power of Mat Inspector Latest Code Status on File Code [...] sent through Care Everywhere. * Tooth: Abscessed (Italian) documented in this encounter* Instructions* Sid Norris [...] sent through Care Everywhere. * Bacterial Vaginosis (Italian) * Vaginal Bleeding (Italian) documented in this encounter* Instructions* Irina Ojeda PA-C - 02/06/2020 Call your dentist to arrange follow-up for recheck this week. * Attachments The following attachments cannot be sent through Care Everywhere. * Tooth: Abscessed (Italian) documented in this encounter* Instructions* Jose Saldaña APRN - CNP - 12/24/2019 Take amoxicillin as prescribed. Return to the emergency department for worsening symptoms. * Attachments The following attachments cannot be sent through Care Everywhere. * Dental Care: Pre-Dental Work Precautions: General Info (Italian) documented in this encounter Assessments Diagnosis Dental infection Acute apical periodontitis of pulpal origin Diagnosis Dental abscess Periapical abscess without sinus Dental caries Unspecified dental caries Diagnosis Bacterial vaginosis- Primary Vaginitis and vulvovaginitis, unspecified Vaginal bleeding Other specified noninflammatory disorder of vagina Findings Encounter Date Bipolar disorder (per denia vega, diagnosed w/both Bipolar I & II) Telebehavioral Health with Halima Argueta [facility] 03/20/2020 Schizoaffective disorder (pe r patient report) Telebehavioral Health with Halima Argueta [facility] 03/20/2020 Asthma Telemedicine New Pat ient with Kia Shamra CNP 03/20/2020 Lumbago Telemedicine New Pat ient with Kia Sharma [facility] 03/20/2020 Z68.21 - Body mass index [BM I] 21.0-21.9, adult Telemedicine New Patient with Kia Sharma [facility] 03/20/2020 Diagnosis Women's annual routine [...] & II) Telebehavioral Health with Halima Condonmons [facility] 03/20/2020 Schizoaffective disorder (pe r patient report) Telebehavioral Health with Halima Condonmons [facility] 03/20/2020 Asthma Telemedicine New Pat [...] section and content) DATE CREATED AUTHOR 12/08/2018 [facility] DATE CREATED AUTHOR AUTHOR'S ORGANIZ ATION 05/31/2021 [facility] DATE CREATED AUTHOR AUTHOR'S ORGANIZ ATION 03/16/2022 [facility] DATE CREATED AUTHOR AUTHOR'S ORGANIZ ATION 04/02/2022 [facility] DATE CREATED AUTHOR AUTHOR'S ORGANIZ ATION 10/02/2023 [facility] DATE CREATED AUTHOR AUTHOR'S ORGANIZ ATION 10/25/2023 [facility] dical Specialists EPIC Reason for [...] (cervical intraepithelial neoplasia II) SHREYA II Procedures MN CONIZATION CERVIX,LOOP ELECTRD DILATATION AND CURETTAGE LEEP-ENDOCERVICAL CURETTAGE Anthony Galloway MD [address] [place] [address] [facility] Reason Comments Breast Pain Right sided, onset y esterday pm, patient states she had an infection in her right breast a few months ago Specialty Diagnoses / Procedures Referred By Gladis t Referred To Contact Diagnoses Abscess of right breast right breast abcess Procedures MN DRAIN SKIN ABSCESS SIMPLE BREAST INCISION AND DRAINAGE- BREAST Geoff Miller MD [address] [place] [address] [facility] [address] [place] [address] Referral ID Status Reason Start Date Expiration Date Visits Re quested Visits Authorized [id number] 1 1 Reason Comments Nausea Emesis Illness Pt. States she has h ad nausea & vomiting since this am. Reports hot & cold flashes & Occasional dizziness Specialty Diagnoses / Procedures Referred By Gladis vega Referred To Contact Radiology Diagnoses Abscess of female breast Procedures US BREAST LIMITED RIGHT US BREAST COMPLETE RIGHT Geoff Miller MD [address] [place] [address] Referral ID Status Reason Start Date Expiration Date Visits Re quested Visits Authorized [id number] Open 04/18/2022 04/18/2023 1 1 Specialty Diagnoses / Procedures Referred By Gladis vega Referred To Contact Radiology Diagnoses Abscess of female breast Procedures DUSTIN JASMINA DIGITAL DIAGNOSTIC BILATERAL DUSTIN DIGITAL DIAGNOSTIC W OR WO CAD BILATERAL Geoff Miller MD [address] [place], [place] [address] [address] Referral ID Status Reason Start Date Expiration Date Visits Re quested Visits Authorized [id number] Closed 04/18/2022 04/18/2023 1 1 Reason Comments [...] 100 mL IVPB (COMPLETED) 2,000 mg, Intravenous, TRAIN CALLER TO O.R., 1 dose, On Mon10/14/20 at [...] 100 mL IVPB (COMPLETED) 2,000 mg, IntraVENous, TRAIN CALLER TO O.R., 1 dose, On Mon03/04/22 at 1115, Antimicrobial Indications: Surgical Prophylaxis, Administer within 1 hour prior to incision. 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[employer] Rubber Relationship Specialty Start Date End Date Kia Sharma, AUTOMOTIVE CUSTOMER EXPERIENCE ADVISOR - HEALTH PRACTICE MANAGER [address] [place] [address] PCP - General Nurse Practitioner 04/13/22 [employer]ator [employer] Rubber Relationship Specialty Start Date End Date Kia Sharma, AUTOMOTIVE CUSTOMER EXPERIENCE ADVISOR - HEALTH PRACTICE MANAGER [address] [place] [address] PCP - General Nurse Practitioner 04/13/22 Fabricator Foam Rubber Relationship Specialty Start Date End Date Kia Sharma APRN - HEALTH PRACTICE MANAGER [address] [place] [address] PCP - General Nurse Practitioner 04/13/22 Fabricator Foam Rubber Relationship Specialty Start Date End Date Kia Sharma AUTOMOTIVE CUSTOMER EXPERIENCE ADVISOR - HEALTH PRACTICE MANAGER [address] [place] [phone] PCP - General Nurse Practitioner 04/13/22 Fabricator Foam Rubber Relationship Specialty Start Date End Date Kia Sharma AUTOMOTIVE CUSTOMER EXPERIENCE ADVISOR - HEALTH PRACTICE MANAGER [address] [place] [phone] PCP - General Nurse Practitioner 04/13/22 Fabricator Foam Rubber Relationship Specialty Start Date End Date Kia Sharma APRN - HEALTH PRACTICE MANAGER [address] [place] [phone] PCP - General Nurse Practitioner 04/13/22 FOR [...] BE BASED ON THE PRIMARY CLINICAL RECORDS. [facility]. provides no warranty or guarantee of the accuracy or completeness of information in this document.
[2023-11-02 20:48] VITALS: BP 109/62; PULSE 91
== END 2023-11-02 21:04 | disposition home or self-care (01) ==
LOC: FBCO 20:10 → FBC 20:14
PROVIDERS: Visit Provider Obstetrics & Gynecology
DX: O36.5930 Maternal care for other known or suspected poor fetal growth, third trimester, not applicable or unspecified (principal)
CPT/HCPCS: 59025

== ENCOUNTER 2023-11-06 07:09 | Outpatient (OUT) | payer OTHER, SELFPAY ==
--- OUTSIDE RECORDS SUMMARY | 2023-11-06 07:12 | XMS_ITS | CCD ---
Author Organization [facility] Care Team Providers Care [employer] Infrastructure Consultant Name Role Phone Bryce De La Garza Admitting Physician Unavailable Bryce De La Garza Attending Physician Unavailable NON, STAFF Primary Care Physician Unavailab Savage Roman Rounding Physician Unavailable FEI LOO Admitting Unavailable FEI LOO Attending Unavailable Unavailable Primary Care Provider UnavailKia Jeffrey Primary Care Provider Unavailable Primary Care Provider UnavailKia Jeffrey CNP Primary Care Provider [phone] KIA SHARMA Referring Unavailable NO FAMILY, PHYSICIAN Primary Care Provider Unava DO Ed Hoover Emergency Provider MD Govind Feliberto Admit Provider MD Feliberto Faust Attending Provider [phone] Unavailable Primary Care Provider UnavailDR YURIY Peraza [...] GENESIS Attending Unavailable DALJIT, YURIY Attending Unavailable DALJIT, YURIY Attending Unavailable Medications Current Medications Medication Drug Class(es) Dates Sig (Normalized) Sig (Original) acetaminophen 500 mg oral tablet (20 sources) Start: 03-04-2022 acetaminophen (TYLENOL) tablet 1,000 mg Start: 10-14-2020 acetaminophen (TYLENOL) tablet 650 mg Start: 05-27-2020 acetaminophen (TYLENOL) tablet 1,000 mg Start: 05-27-2020 take 2 tablets by [facility] every six hours as needed for [...] pain 10 tablet 0 10/14/2020 10/17/2020 Active [id number] 200 actuat albuterol 0.09 mg/actuat metered dose [...] End: 10-26-2021 Prazosin HCl 1 MG Oral mai Reyes 07/01/2021 - 07/15/2021 Provider: Kia Sharma CNP [...] Routineon 2023 Bilirubin, SemiQt,Ur Negative Normal NEG [facility] Comment on above: Performed By: #### U A #### [facility] [address] [place] [address] [place] [address] Sericulture Teacher: Hayden Cartagena MD Blood, Urine Negative Normal NEG [facility] Comment on above: Performed By: #### U A #### [facility] [address] [place] [address] Sericulture Teacher: Hayden Cartagena MD Clarity (U) Clear Normal CLEAR [facility] Comment on above: Performed By: #### U A #### [facility] [address] [place] [address] Dr. [place], [place] [phone] Sericulture Teacher: Hayden Cartagena MD Color (U) Yellow Normal YEL [facility] Comment on above: Performed By: #### U A #### [facility] [address] [place] [address] Dr. [place], [place] [phone] Sericulture Teacher: Hayden Cartagena MD Glucose Ql (U) Negative Normal NEG [facility] Comment on above: Performed By: #### U A #### [facility] [address] [place] [address] Dr. [place], [place] [id number] Sericulture Teacher: Hayden Cartagena MD Ketones Ql (U) Negative Normal NEG [facility] Comment on above: Performed By: #### U A #### [facility] [address] [place] [address] Dr. [place], [place] [phone] Sericulture Teacher: Hayden Cartagena MD Leukocyte esterase Test strip Ql (U) Negative Normal NEG [facility] Comment on above: Performed By: #### U A #### [facility] [address] [place] [address] Dr. [place], [place] [id number] Sericulture Teacher: Hayden Cartagena MD Nitrite,Ur Negative Normal [facility] Comment on above: Performed By: #### U A #### [facility] [address] [place] [address] Dr. [place], [place] [phone] Sericulture Teacher: Hayden Cartagena MD PH,Ur 6.0 Normal 5.0-9.0 [facility] Comment on above: Performed By: #### U A #### [facility] [address] [place] [address] Dr. [place], [place] [phone] Sericulture Teacher: Hayden Cartagena MD Protein Ql (U) Negative Normal NEG [facility] Comment on above: Performed By: #### U A #### [facility] [address] [place] [address] [place] [address] Sericulture Teacher: Hayden Cartagena MD Spec. [place],Ur 1.020 Normal 1.010-1.020 [facility] Comment on above: Performed By: #### U A #### [facility] [address] [place] [address] Sericulture Teacher: Hayden Cartagena MD Urobilinogen,Ur Normal Normal 0.0-1.0 [facility] Comment on above: Performed By: #### U A #### [facility] [address] [place] [address] Sericulture Teacher: Hayden Cartagena MD Urinalysison 09-12-2023 Bilirubin Ql (U) Negative NEGATIVE [facility] Clarity (U) Clear Clear [facility] Color (U) Yellow Yellow [facility] Glucose Test strip (U) [Mass/Vol] Negative NEGATIVE mg/dL [facility] Hemoglobin Auto test strip Ql (U) Negative NEGATIVE [facility] Interpretation and review of laboratory results Abnormal [facility] Ketones (U) [Mass/Vol] Negative NEGAT ROSA mg/dL [facility] Leukocyte esterase Test strip Ql (U) Negative NEGATIVE [facility] Nitrite Ql (U) Negative NEGATIVE [facility] pH (U) 6.0 [pH] 5.0 - 9.0 [facility] Protein (U) [Mass/Vol] Negative NEGAT ROSA mg/dL [facility] Specific gravity (U) [Rel density] Low 1.010 - 1.020 [facility] Urobilinogen Qn (U) Normal 0.0 - 1. 0 EU/dL [facility] Urinalysis, Routineon 2023 Bilirubin, SemiQt,Ur Negative Normal NEG [facility] Comment on above: Performed By: #### U A #### [facility] [address] [place] [address] Sericulture Teacher: Hayden Cartagena MD Blood, Urine Negative Normal NEG [facility] Comment on above: Performed By: #### U A #### [facility] [address] [place] [address] [place] [address] Sericulture Teacher: Hayden Cartagena MD Clarity (U) Clear Normal CLEAR [facility] Comment on above: Performed By: #### U A #### [facility] [address] [place] [address] Dr. [place], [place] [phone] Sericulture Teacher: Hayden Cartagena MD Color (U) Yellow Normal YEL [facility] Comment on above: Performed By: #### U A #### [facility] [address] [place] [address] [place] [phone] Sericulture Teacher: Hayden Cartagena MD Glucose Ql (U) Negative Normal NEG [facility] Comment on above: Performed By: #### U A #### [facility] [address] [place] [address] Dr. [place], [facility]83 Sericulture Teacher: Hayden Cartagena MD Ketones Ql (U) Negative Normal NEG [facility] Comment on above: Performed By: #### U A #### [address] [place], [facility]83 Sericulture Teacher: Hayden Cartagena MD Leukocyte esterase Test strip Ql (U) Negative Normal NEG [facility] Comment on above: Performed By: #### U A #### [facility] [address] [place] [address] Dr. [place], [facility] Sericulture Teacher: Hayden Cartagena MD Nitrite,Ur Negative Normal NEG [facility] Comment on above: Performed By: #### U A #### [address] [place] [address] Sericulture Teacher: Hayden Cartagena MD PH,Ur 6.0 Normal 5.0-9.0 [facility] Comment on above: Performed By: #### U A #### [facility] [address] [place] [address] Dr. [place], [place] [phone] Sericulture Teacher: Hayden Cartagena MD Protein Ql (U) Negative Normal NEG [facility] Comment on above: Performed By: #### U A #### [facility] [address] [place] [address] Dr. [place], [place] [phone] Sericulture Teacher: Hayden Cartagena MD Spec. [place],Ur <1.005 Low 1.010-1.020 [facility] Comment on above: Performed By: #### U A #### [facility] [address] [place] [address] Dr. [place], [place] [phone] Sericulture Teacher: Hayden Cartagena MD Urobilinogen,Ur Normal Normal 0.0-1.0 [facility] Comment on above: Performed By: #### U A #### [facility] [address] [place] [address] Dr. [place], [place] [phone] Sericulture Teacher: Hayden Cartagena MD Glucose, Whole Bloodon 09-03 Glucose [Mass/Vol] 160 mg/dL High 74-100 [facility] Urinalysis, Routineon 2023 Bilirubin, SemiQt,Ur Negative Normal NEG [facility] Comment on above: Performed By: #### U MICAO, UA #### [address] [place], [place] [phone] Sericulture Teacher: Hayden Cartagena MD Blood, Urine Negative Normal NEG [facility] Comment on above: Performed By: #### U MICAO, UA #### [facility] [address] [place] [address] Dr. [place], [place] [phone] Sericulture Teacher: Hayden Cartagena MD Clarity (U) Clear Normal CLEAR [facility] Comment on above: Performed By: #### U MICAO, UA #### [facility] [address] [place] [address] Dr. [place], [place] [phone] Sericulture Teacher: Hayden Cartagena MD Color (U) Yellow Normal YEL [facility] Comment on above: Performed By: #### U MICAO, UA #### [facility] [address] [place] [address] Dr. [place], [place] [phone] Sericulture Teacher: Hayden Cartagena MD Glucose Ql (U) 1+ mg/dL Abnormal NEG [facility] Comment on above: Performed By: #### U MICAO, UA #### [facility] [address] [place] [address] Dr. [place], [place] [phone] Sericulture Teacher: Hayden Cartagena MD Ketones Ql (U) Negative Normal NEG [facility] Comment on above: Performed By: #### U MICAO, UA #### [facility] [address] [place] [address] Dr. [place], [place] [phone] Sericulture Teacher: Hayden Cartagena MD Leukocyte esterase Test strip Ql (U) Negative Normal NEG [facility] Comment on above: Performed By: #### U MICAO, UA #### [facility] [address] [place] [address] Dr. [place], [place] [phone] Sericulture Teacher: Hayden Cartagena MD Nitrite,Ur Negative Normal [facility] Comment on above: Performed By: #### U MICAO, UA #### [address] [place] [address] Sericulture Teacher: Hayden Cartagena MD PH,Ur 6.0 Normal 5.0-9.0 [facility] Comment on above: Performed By: #### U MICAO, UA #### [facility] [address] [place] [address] Dr. [place], [place] [phone] Sericulture Teacher: Hayden Cartagena MD Protein Ql (U) Negative Normal NEG [facility] Comment on above: Performed By: #### U MICAO, UA #### [facility] [address] [place] [address] Dr. [place], [place] [phone] Sericulture Teacher: Hayden Cartagena MD Spec. [place],Ur <1.005 Low 1.010-1.020 [facility] Comment on above: Performed By: #### U MICAO, UA #### [facility] [address] [place], [place] [phone] Sericulture Teacher: Hayden Cartagena MD Urobilinogen,Ur Normal Normal 0.0-1.0 [facility] Comment on above: Performed By: #### U MICAO, UA #### [facility] [address] [place], [place] [phone] Sericulture Teacher: Hayden Cartagena MD Urinalysis,Microon Bacteria TRACE Abnormal NONE [facility] Comment on above: Performed By: #### U MICAO, UA #### [facility] [address] [place], [place] [phone] Sericulture Teacher: Hayden Cartagena MD Epithelial cells LM Ql (Urine sed) 5 TO 10 Normal 0-25 [facility] Comment on above: Performed By: #### U MICAO, UA #### [facility] [address] [place], [place] [phone] Sericulture Teacher: Hayden Cartagena MD Urine RBC's None Normal 0-2 [facility] Comment on above: Performed By: #### U MICAO, UA #### [facility] [address] [place], [place] [phone] Sericulture Teacher: Hayden Cartagena MD Urine WBC's None Normal 0-5 [facility] Comment on above: Performed By: #### U MICAO, UA #### [facility] [address] [place], [place] [phone] Sericulture Teacher: Hayden Cartagena MD Urinalysis, Routineon 2023 Bilirubin, SemiQt,Ur Negative Normal NEG [facility] Comment on above: Performed By: #### U A #### [facility] [address] [place] [address] Dr. [place], [place] [phone] Sericulture Teacher: Hayden Cartagena MD Blood, Urine Negative Normal NEG [facility] Comment on above: Performed By: #### U A #### [facility] [address] [place] [address] Dr. [place], [place] [phone] Sericulture Teacher: Hayden Cartagena MD Clarity (U) Clear Normal CLEAR [facility] Comment on above: Performed By: #### U A #### [facility] [address] [place] [address] [place] [address] Sericulture Teacher: Hayden Cartagena MD Color (U) Yellow Normal YEL [facility] Comment on above: Performed By: #### U A #### [facility] [address] [place] [address] [place] [address] Sericulture Teacher: Hayden Cartagena MD Glucose Ql (U) Negative Normal NEG [facility] Comment on above: Performed By: #### U A #### [facility] [address] [place] [address] Dr. [place], [facility]83 Sericulture Teacher: Hayden Cartagena MD Ketones Ql (U) Negative Normal NEG [facility] Comment on above: Performed By: #### U A #### [facility] [address] [place] [address] Dr. [place], [facility]83 Sericulture Teacher: Hayden Cartagena MD Leukocyte esterase Test strip Ql (U) Negative Normal NEG [facility] Comment on above: Performed By: #### U A #### [facility] [address] [place] [address] Dr. [place], [facility]83 Sericulture Teacher: Hayden Cartagena MD Nitrite,Ur Negative Normal NEG [facility] Comment on above: Performed By: #### U A #### [facility] [address] [place] [address] [place] [address] Sericulture Teacher: Hayden Cartagena MD PH,Ur 6.0 Normal 5.0-9.0 [facility] Comment on above: Performed By: #### U A #### [facility] [address] [place] [address] [place], [place] [phone] Sericulture Teacher: Hayden Cartagena MD Protein Ql (U) Negative Normal NEG [facility] Comment on above: Performed By: #### U A #### [facility] [address] [place], [place] [phone] Sericulture Teacher: Hayden Cartagena MD Spec. [place],Ur <1.005 Low 1.010-1.020 [facility] Comment on above: Performed By: #### U A #### [facility] [address] [place], [place] [phone] Sericulture Teacher: Hayden Cartagena MD Urobilinogen,Ur Normal Normal 0.0-1.0 [facility] Comment on above: Performed By: #### U A #### [facility] [address] [place], [place] [phone] Sericulture Teacher: Hayden Cartagena MD Microscopic Urinalysison Bacteria LM Ql (Urine sed) 1+ Abnormal None [facility] Epithelial cells LM.HPF (Urine sed) [#/Area] 0 TO 2 [facility] Interpretation and review of laboratory results Abnormal [facility] RBC LM.HPF (Urine sed) [#/Area] None [facility] WBC LM.HPF (Urine sed) [#/Area] None [facility] Urinalysison 08-24-2023 Bilirubin Ql (U) Negative NEGATIVE [facility] Clarity (U) Clear Clear [facility] Color (U) Yellow Yellow [facility] Glucose Test strip (U) [Mass/Vol] 1+ Abnormal NEGATIVE mg/dL [facility] Hemoglobin Auto test strip Ql (U) Negative NEGATIVE [facility] Interpretation and review of laboratory results Abnormal [facility] Ketones (U) [Mass/Vol] Negative NEGAT ROSA mg/dL [facility] Leukocyte esterase Test strip Ql (U) Negative NEGATIVE [facility] Nitrite Ql (U) Negative NEGATIVE [facility] pH (U) 6.0 [pH] 5.0 - 9.0 [facility] Protein (U) [Mass/Vol] Negative NEGAT [place] mg/dL [facility] Specific gravity (U) [Rel density] Low 1.010 - 1.020 [facility] Urobilinogen Qn (U) Normal 0.0 - 1. 0 EU/dL [facility] Urinalysis, Routineon 2023 Bilirubin, SemiQt,Ur Negative Normal NEG [facility] Comment on above: Performed By: #### U RC #### [address] [address] Sericulture Teacher: Claude Gonzalez MD [address] [place] [address] Sericulture Teacher: Hayden Cartagena MD Blood, Urine Negative Normal NEG [facility] Comment on above: Performed By: #### U RC #### [address] [address] Sericulture Teacher: Claude Gonzalez MD [address] [place] [address] Sericulture Teacher: Hayden Cartagena MD Clarity (U) Clear Normal CLEAR [facility] Comment on above: Performed By: #### U RC #### [address] [address] Sericulture Teacher: Claude Gonzalez MD [address] [place] [phone] Sericulture Teacher: Hayden Cartagena MD Color (U) Yellow Normal YEL [facility] Comment on above: Performed By: #### U RC #### [address] [address] Sericulture Teacher: lCaude Gonzalez MD [facility] [address] [place] [address] [place] [address] Sericulture Teacher: Hayden Cartagena MD Glucose Ql (U) 1+ mg/dL Abnormal NEG [facility] Comment on above: Performed By: #### U RC #### [place] [address] [place] [address] Sericulture Teacher: Claude Gonzalez MD [address] [place], [place] 7802983 Sericulture Teacher: Hayden Cartagena MD Ketones Ql (U) Negative Normal NEG [facility] Comment on above: Performed By: #### U RC #### [address] [address] Sericulture Teacher: Claude Gonzalez MD [address] [place] [address] Sericulture Teacher: Hayden Cartagena MD Leukocyte esterase Test strip Ql (U) Negative Normal NEG [facility] Comment on above: Performed By: #### U RC #### [address] [address] Sericulture Teacher: Claude Gonzalez MD [address] [place] [phone] Sericulture Teacher: Hayden Cartagena MD Nitrite,Ur Negative Normal [facility] Comment on above: Performed By: #### U RC #### [address] [address] Sericulture Teacher: Claude Gonzalez MD [facility] [address] [place] [address] Dr. [place] [phone] Sericulture Teacher: Hayden Cartagena MD PH,Ur 6.0 Normal 5.0-9.0 [facility] Comment on above: Performed By: #### U RC #### [address] [address] Sericulture Teacher: Claude Gonzalez MD [facility] [address] [place] [address] [place], [place] [phone] Sericulture Teacher: Hayden Cartagena MD Protein Ql (U) Negative Normal NEG [facility] Comment on above: Performed By: #### U RC #### [address] [address] Sericulture Teacher: Claude Gonzalez MD [facility] [address] [place] [address] [place], [place] [phone] Sericulture Teacher: Hayden Cartagena MD Spec. [place],Ur <1.005 Low 1.010-1.020 [facility] Comment on above: Performed By: #### U RC #### [address] [address] Sericulture Teacher: Claude Gonzalez MD [address] [place] [address] Sericulture Teacher: Hayden Cartagena MD Urobilinogen,Ur Normal Normal 0.0-1.0 [facility] Comment on above: Performed By: #### U RC #### [address] [address] Sericulture Teacher: Claude Gonzalez MD [facility] [address] [place] [address] Dr. [place] [phone] Sericulture Teacher: Hayden Cartagena MD Urinalysis,Microon 4 Bacteria 1+ Abnormal NONE [facility] Comment on above: Performed By: #### U RC #### [address] [address] Sericulture Teacher: Claude Gonzalez MD [facility] [address] [place] [address] [place] [address] Sericulture Teacher: Hyaden Cartagena MD Epithelial cells LM Ql (Urine sed) 0 TO 2 Normal 0-25 [facility] Comment on above: Performed By: #### U RC #### [address] [address] Sericulture Teacher: Claude Gonzalez MD [facility] [address] [place] [address] Dr. [place] [phone] Sericulture Teacher: Hayden Cartagena MD Urine RBC's None Normal 0-2 [facility] Comment on above: Performed By: #### U RC #### [facility] [address] [place] [address] Sericulture Teacher: Claude Gonzalez MD [facility] [address] [place] [address] [place] [address] Sericulture Teacher: Hayden Cartagena MD Urine WBC's None Normal 0-5 [facility] Comment on above: Performed By: #### U RC #### [facility] [address] [place] [address] Sericulture Teacher: Claude Gonzalez MD [facility] [address] [place] [address] [place] [address] Sericulture Teacher: Hayden Cartagena MD Cult,Urineon 07-01-2023 Cult,Urine Specimen Description .CLEAN CATCH URINE Culture NO SIGNIFICANT GROWTH Report Status FINAL 07/01/2023 Normal [facility] Comment on above: Performed By: #### U RC #### [facility] [address] [place] [address] Sericulture Teacher: Claude Gonzalez MD [facility] [address] [place] [address] [place] [address] Sericulture Teacher: Hayden Cartagena MD Urinalysis w/ Microon 2023 Bilirubin, SemiQt,Ur Negative Normal NEG [facility] Comment on above: Performed By: #### U AMIC #### [facility] [address] [place] [address] [place] [address] Sericulture Teacher: Hayden Cartagena MD Blood, Urine Negative Normal NEG [facility] Comment on above: Performed By: #### U AMIC #### [facility] [address] [place] [address] [place] [address] Sericulture Teacher: Hayden Cartagena MD Clarity (U) Clear Normal CLEAR [facility] Comment on above: Performed By: #### U AMIC #### [facility] [address] [place], [place] [phone] Sericulture Teacher: Hayden Cartagena MD Color (U) Yellow Normal YEL [facility] Comment on above: Performed By: #### U AMIC #### [facility] [address] [place] [address] Dr. [place], [place] [phone] Sericulture Teacher: Hayden Cartagena MD Epithelial cells LM Ql (Urine sed) 2 TO 5 Normal 0-25 [facility] Comment on above: Performed By: #### U AMIC #### [facility] [address] [place] [address] Dr. [place], [place] [phone] Sericulture Teacher: Hayden Cartagena MD Glucose Ql (U) Negative Normal NEG [facility] in Hospital Comment on above: Performed By: #### U AMIC #### [facility] [address] [place] [address] Dr. [place], [place] [phone] Sericulture Teacher: Hayden Cartagena MD Ketones Ql (U) Negative Normal NEG [facility] in Hospital Comment on above: Performed By: #### U AMIC #### [facility] [address] [place] [address] Dr. [place], [place] [phone] Sericulture Teacher: Hayden Cartagena MD Leukocyte esterase Test strip Ql (U) Negative Normal NEG [facility] Comment on above: Performed By: #### U AMIC #### [facility] [address] [place] [address] Dr. [place], [place] [phone] Sericulture Teacher: Hayden Cartagena MD Nitrite,Ur Negative Normal NEG [facility] Comment on above: Performed By: #### U AMIC #### [facility] [address] [place] [address] Dr. [place], [place] [phone] Sericulture Teacher: Hayden Cartagena MD PH,Ur 6.0 Normal 5.0-9.0 [facility] Comment on above: Performed By: #### U AMIC #### [facility] [address] [place] [address] Dr. [place], [place] [phone] Sericulture Teacher: Hayden Cartagena MD Protein Ql (U) Negative Normal NEG [facility] Comment on above: Performed By: #### U AMIC #### [facility] [address] [place] [address] [place] [id number] Sericulture Teacher: Hayden Cartagena MD Spec. [place],Ur 1.010 Normal 1.010-1.020 [facility] Comment on above: Performed By: #### U AMIC #### [facility] [address] [place] [address] [place] [id number] Sericulture Teacher: Hayden Cartagena MD Urine RBC's None Normal 0-2 [facility] Comment on above: Performed By: #### U AMIC #### [address] [place] [id number] Sericulture Teacher: Hayden Cartagena MD Urine WBC's None Normal 0-5 [facility] Comment on above: Performed By: #### U AMIC #### [facility] [address] [place] [address] Dr. [place] [phone] Sericulture Teacher: Hayden Cartagena MD Urobilinogen,Ur Normal Normal 0.0-1.0 [facility] Comment on above: Performed By: #### U AMIC #### [facility] [address] [place] [address] Dr. Barnes [id number] Sericulture Teacher: Hayden Cartagena MD Cult,Urineon 05-03-2023 Cult,Urine Specimen [...] Tobramycin <=1 SUSCEPTIBLE Trimethoprim/Sulfa <=20 SUSCEPTIBLE Susceptible [facility] Comment on above: Performed By: #### U RC #### [address] [place] [address] Sericulture Teacher: Claude Gonzalez MD [facility] [address] [place] [address] [place] [address] Sericulture Teacher: Hayden Cartagena MD HIV Ag/Abon 05-02-2023 HIV Ag/Ab Non-Reactive Normal [facility] Comment on above: Result Comment: No l aboratory evidence of HIV infection. If acute HIV infection is suspected, consider testing for HIV-1 RNA. Performed By: #### U RC #### [address] [address] Sericulture Teacher: Claude Gonzalez MD [address] [place] [address] Sericulture Teacher: Hayden Cartagena MD T.pallidum Ab Screenon 05-01 T.pallidum Ab Screen Non-Reactive Normal [facility] Comment on above: Result Comment: T. pallidum antibodies are not detected. There is no serological evidence of infection with T. pallidum (early primary syphilis cannot be excluded). Retest in 2-4 weeks if syphilis is clinically suspect. Performed By: #### U RC #### [address] [address] Sericulture Teacher: Claude Gonzalez MD [facility] [address] [place] [address] [place] [address] Sericulture Teacher: Hayden Cartagena MD CBC with Auto Differentialon 05-01-2023 Basophils (Bld) [#/Vol] 0.03 10*3/uL [facility] Basophils/100 WBC (Bld) 0 % 0 - 2 % [facility] Eosinophils (Bld) [#/Vol] [facility] Eosinophils/100 WBC (Bld) 0 % Low 1 - 4 % [facility] Erythrocyte distribution width (RBC) [Ratio] 12.2 % 11.8 - 14.4 % [facility] Hematocrit (Bld) [Volume fraction] 36.2 % Low 36.3 - 47.1 % [facility] Hemoglobin (Bld) [Mass/Vol] 12.1 g/dL 11.9 - 15.1 g/dL [facility] Immature granulocytes (Bld) [#/Vol] [facility] Immature granulocytes/100 WBC (Bld) 0 % 0 [facility] Interpretation and review of laboratory results Abnormal [facility] Lymphocytes/100 WBC (Bld) 19 % Low 24 - 43 % [facility] Lymphocytes/100 WBC (Bld) 1.62 % [facility] MCH (RBC) [Entitic mass] 32.1 pg 25.2 - 33.5 pg [facility] MCHC (RBC) [Mass/Vol] 33.4 g/dL 28.4 - 34.8 g/dL [facility] MCV (RBC) [Entitic vol] 96.0 fL 82.6 - 102.9 fL [facility] Monocytes/100 WBC (Bld) 6 % 3 - 12 % [facility] Monocytes/100 WBC (Bld) 0.51 % [facility] Neutrophils/100 WBC (Bld) 75 % High 36 - 65 % [facility] Nucleated RBC/100 WBC (Bld) [Ratio] 0.0 % 0.0 per 100 WBC [facility] Platelet mean volume (Bld) [Entitic vol] 10.3 fL 8.1 - 13.5 fL [facility] Platelets (Bld) [#/Vol] 201 10*3/uL [facility] RBC (Bld) [#/Vol] 3.77 10*6/uL Low 3.95 - 5.1 1 m/uL [facility] Segmented neutrophils/100 WBC (Bld) 6.24 % [facility] WBC other (Bld) [#/Vol] 8.4 B ON [facility] CBC with Diffon 05-01-2023 Abs. Basophil 0.03 k/uL Normal 0.00-0.20 [facility] Comment on above: Performed By: #### C DP #### [address] [place] [address] Sericulture Teacher: Hayden Cartagena MD #### LISA, HIVCMB, AHCV, TREP, GLYHGB, HBS #### [place] [address] Sericulture Teacher: Claude Gonzalez MD Abs. Eosinophil <0.03 Normal 0.00-0.44 [facility] Comment on above: Performed By: #### C DP #### [address] [place] [phone] Sericulture Teacher: Hayden Cartagena MD #### LISA, HIVCMB, AHCV, TREP, GLYHGB, HBS #### [place] [address] Sericulture Teacher: Claude Gonzalez MD Abs.Imm.Granulocyte <0.03 Normal 0.00-0.30 [facility] Comment on above: Performed By: #### C DP #### [address] [place] [phone] Sericulture Teacher: Hayden Cartagena MD #### LISA, HIVCMB, AHCV, TREP, GLYHGB, HBS #### [place] [phone] Sericulture Teacher: Claude Gonzalez MD Abs.Neutrophil (Seg) 6.24 k/uL Normal 1.50-8.10 [facility] Comment on above: Performed By: #### C DP #### [address] [place] [phone] Sericulture Teacher: Hayden Cartagena MD #### LISA, HIVCMB, AHCV, TREP, GLYHGB, HBS #### [address] [place] [phone] Sericulture Teacher: Claude Gonzalez MD Basophils/100 WBC (Bld) 0 % Normal 0-2 M [facility] Comment on above: Performed By: #### C DP #### [facility] [address] [place] [address] Dr. [place], [place] [phone] Sericulture Teacher: Hayden Cartagena MD #### LISA, HIVCMB, AHCV, TREP, GLYHGB, HBS #### [address] [phone] Sericulture Teacher: Claude Gonzalez MD Eosinophils/100 WBC (Bld) 0 % Low 1-4 [facility] Comment on above: Performed By: #### C DP #### [address] [place] [phone] Sericulture Teacher: Hayden Cartagena MD #### LISA, HIVCMB, AHCV, TREP, GLYHGB, HBS #### [address] [phone] Sericulture Teacher: Claude Gonzalez MD Erythrocyte distribution width (RBC) [Ratio] 12.2 % Normal 11.8-14.4 [facility] Comment on above: Performed By: #### C DP #### [address] [place] [phone] Sericulture Teacher: Hayden Cartagena MD #### LISA, HIVCMB, AHCV, TREP, GLYHGB, HBS #### [address] [phone] Sericulture Teacher: Claude Gonzalez MD Hematocrit (Bld) [Volume fraction] 36.2 % Low 36.3-47.1 [facility] Comment on above: Performed By: #### C DP #### [facility] [address] [place] [address] [place] [address] Sericulture Teacher: Hayden Cartagena MD #### LISA, HIVCMB, AHCV, TREP, GLYHGB, HBS #### [place] [address] Sericulture Teacher: Claude Gonzalez MD Hemoglobin (Bld) [Mass/Vol] 12.1 g/dL Normal 11.9-15.1 [facility] Comment on above: Performed By: #### C DP #### [address] [place] [phone] Sericulture Teacher: Hayden Cartagena MD #### LISA, HIVCMB, AHCV, TREP, GLYHGB, HBS #### [place] [address] Sericulture Teacher: Claude Gonzalez MD Immature granulocytes/100 WBC (Bld) 0 % Normal 0 [facility] Comment on above: Performed By: #### C DP #### [address] [place] [address] Sericulture Teacher: Hayden Cartagena MD #### LISA, HIVCMB, AHCV, TREP, GLYHGB, HBS #### [place] [address] Sericulture Teacher: Claude Gonzalez MD Lymphocytes (Bld) [#/Vol] 1.62 10*3/uL Normal 1.10-3.70 [facility] Comment on above: Performed By: #### C DP #### [address] [place] [phone] Sericulture Teacher: Hayden Cartagena MD #### LISA, HIVCMB, AHCV, TREP, GLYHGB, HBS #### [place] [address] Sericulture Teacher: Claude Gonzalez MD Lymphocytes/100 WBC (Bld) 19 % Low 24-43 [facility] Comment on above: Performed By: #### C DP #### [address] [place] [phone] Sericulture Teacher: Hayden Cartagena MD #### LISA, HIVCMB, AHCV, TREP, GLYHGB, HBS #### [address] [phone] Sericulture Teacher: Claude Gonzalez MD MCH (RBC) [Entitic mass] 32.1 pg Normal 25.2-33.5 [facility] Comment on above: Performed By: #### C DP #### [address] [place] [phone] Sericulture Teacher: Hayden Cartagena MD #### LISA, HIVCMB, AHCV, TREP, GLYHGB, HBS #### [address] [address] Sericulture Teacher: Claude Gonzalez MD MCHC (RBC) [Mass/Vol] 33.4 g/dL Normal 28.4-34.8 [facility] Comment on above: Performed By: #### C DP #### [address] [place] [phone] Sericulture Teacher: Hayden Cartagena MD #### LISA, HIVCMB, AHCV, TREP, GLYHGB, HBS #### [address] [phone] Sericulture Teacher: Claude Gonzalez MD MCV (RBC) [Entitic vol] 96.0 fL Normal 82.6-102.9 M [facility] Comment on above: Performed By: #### C DP #### [address] [place] [address] Sericulture Teacher: Hayden Cartagena MD #### LISA, HIVCMB, AHCV, TREP, GLYHGB, HBS #### [address] [phone] Sericulture Teacher: Claude Gonzalez MD Monocytes (Bld) [#/Vol] 0.51 10*3/uL Normal 0.10-1.20 [facility] Comment on above: Performed By: #### C DP #### [facility] [address] [place] [address] Dr. [place] [phone] Sericulture Teacher: Hayden Cartagena MD #### LISA, HIVCMB, AHCV, TREP, GLYHGB, HBS #### [address] [phone] Sericulture Teacher: Claude Gonzalez MD Monocytes/100 WBC (Bld) 6 % Normal 3-12 M [facility] Comment on above: Performed By: #### C DP #### [facility] [address] [place] [address] Dr. [place] [phone] Sericulture Teacher: Hayden Cartagena MD #### LISA, HIVCMB, AHCV, TREP, GLYHGB, HBS #### [address] [phone] Sericulture Teacher: Claude Gonzalez MD Neutrophil (Seg) 75 % High 36-65 [facility] Comment on above: Performed By: #### C DP #### [facility] [address] [place] [address] Dr. [place] [phone] Sericulture Teacher: Hayden Cartagena MD #### LISA, HIVCMB, AHCV, TREP, GLYHGB, HBS #### [address] [phone] Sericulture Teacher: Claude Gonzalez MD NRBC Automated 0.0 per 100 WBC Normal 0.0 [facility] Comment on above: Performed By: #### C DP #### [facility] [address] [place] [address] [place] [address] Sericulture Teacher: Hayden Cartagena MD #### LISA, HIVCMB, AHCV, TREP, GLYHGB, HBS #### [address] [place] [address] Sericulture Teacher: Claude Gonzalez MD Platelet mean volume (Bld) [Entitic vol] 10.3 fL Normal 8.1-13.5 [facility] Comment on above: Performed By: #### C DP #### [address] [place] [phone] Sericulture Teacher: Hayden Cartagena MD #### LISA, HIVCMB, AHCV, TREP, GLYHGB, HBS #### [address] [address] Sericulture Teacher: Claude Gonzalez MD Platelets (Bld) [#/Vol] 201 10*3/uL Normal 138-453 [facility] Comment on above: Performed By: #### C DP #### [address] [place] [phone] Sericulture Teacher: Hayden Cartagena MD #### LISA, HIVCMB, AHCV, TREP, GLYHGB, HBS #### [place] [address] Sericulture Teacher: Claude Gonzalez MD RBC (Bld) [#/Vol] 3.77 10*6/uL Low 3.95-5.11 [facility] Comment on above: Performed By: #### C DP #### [address] [place] [phone] Sericulture Teacher: Hayden Cartagena MD #### LISA, HIVCMB, AHCV, TREP, GLYHGB, HBS #### [place] [address] Sericulture Teacher: Claude Gonzalez MD WBC (Bld) [#/Vol] 8.4 10*3/uL Normal 3.5-11.3 [facility] Comment on above: Performed By: #### C DP #### [address] [place], [place] [phone] Sericulture Teacher: Hayden Cartagena MD #### LISA, HIVCMB, AHCV, TREP, GLYHGB, HBS #### [address] [place] [address] Sericulture Teacher: Claude Gonzalez MD Hemoglobin A1Con 05-01-2023 Average glucose Estimated from glycated hemoglobin (Bld) [Mass/Vol] 85 mg/dL [facility] Comment on above: The ADA and AACC rec ommend providing the estimated average glucose result to permit better patient understanding of their HBA1c result. HbA1c (Bld) [Mass fraction] 4.6 % 4.0 - 6.0 % [facility] Glucose [Mass/Vol] 85 mg/dL Normal [facility] Comment on above: Result Comment: The ADA and AACC recommend providing the estimated average glucose result to permit better patient understanding of their HBA1c result. Performed By: #### U RC #### [address] [address] Sericulture Teacher: Claude Gonzalez MD [address] [place] [address] Sericulture Teacher: Hayden Cartagena MD HbA1c (Bld) [Mass fraction] 4.6 % Normal 4.0-6.0 [facility] Comment on above: Performed By: #### U RC #### [address] [address] Sericulture Teacher: Claude Gonzalez MD [address] [place] [address] Sericulture Teacher: Hayden Cartagena MD Hep B Surf Agon 05-01-2023 Hep B Surf Ag Non-Reactive Normal [facility] Comment on above: Performed By: #### U RC #### [address] [address] Sericulture Teacher: Claude Gonzalez MD [address] [place] [address] Sericulture Teacher: Hayden Cartagena MD Hep C Abon 05-01-2023 Hep C Ab Non-Reactive Normal NR [facility] Comment on above: Result Comment: The hepatitis [...] PCR. Performed By: #### C DP #### [facility] [address] [place] [address] Sericulture Teacher: Hayden Cartagena MD #### LISA, HIVCMB, AHCV, TREP, GLYHGB, HBS #### [address] [place] [address] Sericulture Teacher: Claude Gonzalez MD Hepatitis B Surface Antigeno n 05-01-2023 HBV surface Ag IA Ql Non-Reactive NONREACTIVE B [facility] Hepatitis C Antibodyon 04-30 HCV Ab IA Ql Non-Reactive NONREACTIVE [facility] Comment on above: The hepatitis [...] RNA by PCR. No Panel Informationon 04-30 [facility] Rubella Ab, IgGon 05-01-2023 Rubella Ab, IgG >500.0 Normal [facility] Comment on above: Result Comment: REFERENCE RANGE: <5.0 NON-REACTIVE (non-immune) 5.0 TO 9.9 EQUIVOCAL >=10.0 REACTIVE (immune) Performed By: #### U RC #### [address] [place] [address] Sericulture Teacher: Claude Gonzalez MD [facility] [address] [place] [address] [place] [address] Sericulture Teacher: Hayden Cartagena MD Rubella antibody, IgGon Rubella virus IgG IA Ql IU/mL [facility] Comment on above: REFERENCE RANGE: <5.0 NON-REACTIVE (non-immune) 5.0 TO 9.9 EQUIVOCAL >=10.0 REACTIVE (immune) [facility] TYPE AND SCREENon 05-01-2023 ABO and Rh group Nom (Bld) Blood group O Rh(D) negative [facility] Blood Bank Sample Expiration 05/04/2023,2359 [facility] Blood group antibodies identified Nom Negative [facility] Type + Screenon 05-01-2023 Type + Screen Sample Expiration 05/04/2023,2359 ABO/Rh(D) O NEGATIVE Antibody Screen NEGATIVE Normal [facility] Comment on above: Performed By: #### T YS #### [facility] [address] [place] [address] [address]. [place], [place] [phone] Sericulture Teacher: Hayden Cartagena MD CBC with Auto Differentialon 08-03-2022 Basophils (Bld) [#/Vol] 0.04 10*3/uL [facility] Basophils/100 WBC (Bld) 0 % 0 - 2 % [facility] Eosinophils (Bld) [#/Vol] [facility] Eosinophils/100 WBC (Bld) 0 % Low 1 - 4 % [facility] Erythrocyte distribution width (RBC) [Ratio] 12.2 % 11.8 - 14.4 % [facility] Hematocrit (Bld) [Volume fraction] 39.4 % 36.3 - 47.1 % [facility] Hemoglobin (Bld) [Mass/Vol] 13.2 g/dL 11.9 - 15.1 g/dL [facility] Immature granulocytes (Bld) [#/Vol] [facility] Immature granulocytes/100 WBC (Bld) 0 % 0 [facility] Interpretation and review of laboratory results Abnormal [facility] Lymphocytes/100 WBC (Bld) 17 % Low 24 - 43 % [facility] Lymphocytes/100 WBC (Bld) 1.86 % [facility] MCH (RBC) [Entitic mass] 32.1 pg 25.2 - 33.5 pg [facility] MCHC (RBC) [Mass/Vol] 33.5 g/dL 28.4 - 34.8 g/dL [facility] MCV (RBC) [Entitic vol] 95.9 fL 82.6 - 102.9 fL [facility] Monocytes/100 WBC (Bld) 4 % 3 - 12 % [facility] ON [facility] Monocytes/100 WBC (Bld) 0.42 % B ON [facility] Neutrophils/100 WBC (Bld) 79 % High 36 - 65 % [facility] NRBC Automated 0.0 0.0 per 100 WBC [facility] Platelet mean volume (Bld) [Entitic vol] 10.5 fL 8.1 - 13.5 fL [facility] Platelets (Bld) [#/Vol] 213 10*3/uL [facility] RBC (Bld) [#/Vol] 4.11 10*6/uL 3.95 - 5.1 1 m/uL [facility] Segmented neutrophils/100 WBC (Bld) 8.49 % High [facility] WBC other (Bld) [#/Vol] 10.8 B ON [facility] CMPon 08-03-2022 Albumin [Mass/Vol] 4.6 g/dL 3.5 - 5.2 g/dL [facility] Albumin/Globulin [Mass ratio] 1.5 {ratio} 1.0 - 2.5 [facility] ALP [Catalytic activity/Vol] 79 U/L 35 - 104 U/L [facility] ALT [Catalytic activity/Vol] 9 U/L 5 - 33 U/L [facility] Anion gap [Moles/Vol] 11 mmol/L 9 - 17 mmol/L [facility] AST [Catalytic activity/Vol] 13 U/L NINF - 32 U/L [facility] Bilirubin [Mass/Vol] 1.1 mg/dL 0.3 - 1 .2 mg/dL [facility] Calcium [Mass/Vol] 10.0 mg/dL 8.6 - 10. 4 mg/dL [facility] Chloride [Moles/Vol] 104 mmol/L 98 - 10 7 mmol/L [facility] CO2 [Moles/Vol] 26 mmol/L 20 - 31 mmol/L [facility] Creatinine [Mass/Vol] 0.68 mg/dL 0.50 - 0.90 mg/dL [facility] GFR/1.73 sq M.predicted MDRD (S/P/Bld) [Vol rate/Area] - PINF [facility] Comment on above: These results are [...] [Mass/Vol] 90 mg/dL 70 - 99 mg/dL [facility] Interpretation and review of laboratory results Abnormal [facility] Potassium [Moles/Vol] 3.4 mmol/L Low 3.7 - 5.3 mmol/L [facility] Protein [Mass/Vol] 7.7 g/dL 6.4 - 8.3 g/dL [facility] Sodium [Moles/Vol] 141 mmol/L 135 - 144 mmol/L [facility] Urea nitrogen [Mass/Vol] 6 mg/dL 6 - 20 mg/dL [facility] Urea nitrogen/Creatinine [Mass ratio] 9 mg/mg 9 - [address] [facility] [address] ABDOMEN PELVIS WO CONTRAS [...] superficial soft tissues show no acute process. [facility] Cody Gregg MD - 08/03/2022 EXAMINATION: [...] urinary tract calculi. 3. No bowel obstruction. [employer] Work Phone: Radiology Study observation (narrative) [employer] Work Phone: CT ABDOMEN PELVIS WO CONTRAS T Additional Contrast? NoneOrdered By: Cody Gregg on 08-03-2022 [employer] Work Phone: Microscopic Urinalysison Bacteria LM Ql (Urine sed) 4+ Abnormal None [employer] Epithelial cells LM.HPF (Urine sed) [#/Area] 10 TO 20 [employer] [facility] Interpretation and review of laboratory results Abnormal [employer] RBC LM.HPF (Urine sed) [#/Area] 10 TO 20 [employer] WBC LM.HPF (Urine sed) [#/Area] 20 TO 50 [facility] Urinalysis with Reflex to Cu ltureon 08-03-2022 Bilirubin Ql (U) Negative NEGATIVE [employer] Clarity (U) Cloudy Abnormal Clear [employer] Color (U) Yellow Yellow [facility] Glucose Test strip (U) [Mass/Vol] Negative NEGATIVE [employer] [facility] Hemoglobin Auto test strip Ql (U) 3+ Abnormal NEGATIVE [employer] [facility] Interpretation and review of laboratory results Abnormal [employer] Ketones (U) [Mass/Vol] Negative NEGATIVE [employer] Leukocyte esterase Test strip Ql (U) SMALL Abnormal NEGATIVE [employer] Nitrite Ql (U) Positive Abnormal NEGATIVE [employer] pH (U) 6.0 [pH] 5.0 - 9.0 [employer] Protein (U) [Mass/Vol] 2+ Abnormal NEGATIVE [facility] Specific gravity (U) [Rel density] 1.025 High 1.010 - 1.020 [facility] Urobilinogen Qn (U) Normal Normal [facility] hCG, quantitative, on 08-03-2022 hCG Quant NINF [facility] Comment on above: Non-preg premeno <=5 Postmeno <=8 Male <=3 If HCG results do not concur with clinical observations, additional testing to confirm results is recommended. [facility] JASMINA DIGITAL DIAGNOSTIC BILATERALon 06-03-2022 Radiology Study observation (narrative) SARWAT MARROQUIN [facility] Work Phone: No Panel Informationon 06-03 1. Negative bilateral mammogram. 2. No evidence for a discrete abscess or cellulitis in the periareolar right breast, for which clinical follow-up is recommended. BI-RADS 2 BIRADS: BIRADS - CATEGORY 2 Benign Findings. OVERALL ASSESSMENT - BENIGN A letter of notification will be sent to the patient regarding the results. [employer] recommends annual mammograms for women 40 years and older. [facility] RIS CONSOLIDATED EXAMINATION: DIAGNOSTIC DIGITAL BILATERAL [...] Panel InformationOrdered By: Matt Sharma on 06-03-2022 [facility] [employer] Work Phone: US BREAST LIMITED [employer]on Radiology Study observation (narrative) SARWAT HOLDERO URS [facility] First Class EV Conversions Work Phone: CBC with Auto Differentialon 04-24-2022 Absolute Eos # CANUTE S [facility] Absolute Immature Granulocyte 0.05 [facility] Absolute Lymph # 0.56 [facility] Absolute Mcnairy # 0.78 [facility] RS [facility] Basophils (Bld) [#/Vol] 0.04 10*3/uL [facility] Basophils/100 WBC (Bld) 0 % 0 - 2 % [facility] Eosinophils/100 WBC (Bld) 0 % Low 1 - 4 % [facility] Hematocrit (Bld) [Volume fraction] 43.7 % 36.3 - 47.1 % [facility] Hemoglobin (Bld) [Mass/Vol] 15.6 g/dL High 11.9 - 15.1 g/dL [facility] Immature granulocytes/100 WBC (Bld) 0 % 0 [facility] Interpretation and review of laboratory results Abnormal [facility] Lymphocytes/100 WBC (Bld) 4 % Low 24 - 43 % [facility] MCH (RBC) [Entitic mass] 33.1 pg 25.2 - 33.5 pg [facility] MCHC (RBC) [Mass/Vol] 35.7 g/dL High 28.4 - 34.8 g/dL [facility] MCV (RBC) [Entitic vol] 92.8 fL 82.6 - 102.9 fL [facility] Monocytes/100 WBC (Bld) 5 % 3 - 12 % [facility] NRBC Automated 0.0 0.0 per 100 WBC [facility] Platelet distribution width (Bld) [Ratio] 12.3 % 11.8 - 14.4 % [facility] Platelet mean volume (Bld) [Entitic vol] 10.5 fL 8.1 - 13.5 fL [facility] Platelets (Bld) [#/Vol] 174 10*3/uL [facility] RBC (Bld) [#/Vol] 4.71 10*6/uL 3.95 - 5.1 1 m/uL [facility] Segmented neutrophils/100 WBC (Bld) 91 % High 36 - 65 % [facility] Segs Absolute 13.82 High [facility] WBC (Bld) [#/Vol] 15.3 10*3/uL High [facility] CMPon 04-24-2022 Albumin [Mass/Vol] 4.8 g/dL 3.5 - 5.2 g/dL [facility] Albumin/Globulin [Mass ratio] 1.6 {ratio} 1.0 - 2.5 [facility] ALP [Catalytic activity/Vol] 87 U/L 35 - 104 U/L [facility] ALT [Catalytic activity/Vol] 19 U/L 5 - 33 U/L [facility] Anion gap [Moles/Vol] 17 mmol/L 9 - 17 mmol/L [facility] AST [Catalytic activity/Vol] 23 U/L NINF - 32 U/L [facility] Bilirubin [Mass/Vol] 1.0 mg/dL 0.3 - 1 .2 mg/dL [facility] Calcium [Mass/Vol] 10.4 mg/dL 8.6 - 10. 4 mg/dL [facility] Chloride [Moles/Vol] 105 mmol/L 98 - 10 7 mmol/L [facility] CO2 [Moles/Vol] 19 mmol/L Low 20 - 31 mmol/L [facility] Creatinine [Mass/Vol] 0.84 mg/dL 0.50 - 0.90 mg/dL [facility] GFR/1.73 sq M.predicted MDRD (S/P/Bld) [Vol rate/Area] - PINF [facility] Comment on above: These results are [...] 151 mg/dL High 70 - 99 mg/dL [facility] y prime Interpretation and review of laboratory results Abnormal [facility] Potassium [Moles/Vol] 3.9 mmol/L 3.7 - 5.3 mmol/L [facility] y prime Protein [Mass/Vol] 7.8 g/dL 6.4 - 8.3 g/dL [facility] y prime Sodium [Moles/Vol] 141 mmol/L 135 - 144 mmol/L [facility] Urea nitrogen [Mass/Vol] 9 mg/dL 6 - 20 mg/dL [facility] Urea nitrogen/Creatinine (Bld) [Mass ratio] 11 9 - [address] [address] ABDOMEN PELVIS W IV CONTR AST [...] pathologic adenopathy. Bones/Soft Tissues: No acute abnormality [facility] Rogelio Huang MD - [...] Otherwise, no acute intra-abdominal or pelvic abnormality [employer] Work Phone: Radiology Study observation (narrative) [employer] Work Phone: CT ABDOMEN PELVIS W IV CONTR AST Additional Contrast? NoneOrdered By: Rogelio Lima on 04-24-2022 [employer] Work Phone: Lactic Acidon 04-24-2022 Lactate (P samantha) [Moles/Vol] 2.1 mmol/L 0.5 - 2.2 mmol/L C4M Lipaseon 04-24-2022 Lipase [Catalytic activity/Vol] 24 U/L 13 - 60 U/L [facility] Microscopic Urinalysison Bacteria, UA 1+ Abnormal None [facility] Epithelial Cells UA 5 TO 10 [facility] Interpretation and review of laboratory results Abnormal [facility] Mucus, UA 1+ Abnormal None [facility] RBC clumps Auto (Urine sed) [#/Area] None [facility] WBC, UA 0 TO 2 [facility] No Panel Informationon 04-24 [facility] Urinalysison 04-24-2022 Bilirubin Urine Negative NEGATIVE [facility] Color, UA Yellow Yellow [facility] Glucose Auto test strip (U) [Mass/Vol] Negative NEGATIVE [facility] Interpretation and review of laboratory results Abnormal [facility] Ketones (U) [Mass/Vol] 2+ Abnormal NEGATIVE [facility] Leukocyte esterase Auto test strip Ql (U) Negative NEGATIVE [facility] Nitrite Auto test strip Ql (U) Negative NEGATIVE [facility] Protein (U) [Mass/Vol] 5.0 - 9.0 [facility] Protein (U) [Mass/Vol] Negative NEGATIVE [facility] Specific [place], UA 1.010 1.010 - 1.020 [facility] Turbidity UA SLIGHTLY CLOUDY Abnormal Clear [facility] Urine Hgb Negative NEGATIVE [facility] Urobilinogen, Urine Normal Normal [facility] , urineon 3 Beta HCG ( test) Ql (U) Negative NEGATIVE [facility] Comment on above: Specimens with hCG l evels near the threshold of the test (25 mIU/mL) may give a negative or indeterminate result. In such cases, another test should be performed with a new specimen in 48-72 hours. If early is suspected clinically in this setting, correlation with quantitative serum b-hCG level is suggested. [email or web address] has confirmed the use of plasma for this test. This has not been cleared or approved by the U.S. Food and Drug Administration. The FDA has determined that such clearance is not necessary. SARWAT [facility] [email or web address] Cholesterol [Mass/volume] in Serum or PlasmaOrdered By: Feliberto Faust on 10-27-2021 Cholesterol [Mass/Vol] 102 mg/dL 140-[address] [facility] Comment on above: Chol less than 200 m g/dl low risk Chol 201-239 mg/dl borderline risk Chol 240 mg/dl and greater high risk Cholesterol in LDL Calc [Mas s/Vol]Ordered By: Feliberto Faust on 10-27-2021 Cholesterol in LDL [Mass/Vol] 58 mg/dL 0-100 [facility] Comment on above: LDL ATP III CLASSIFI CATION LDL less than 100 mg/dL Optimal LDL 100-129 mg/dL Near or above optimal LDL 130-159 mg/dL Borderline high LDL 160-189 mg/dL High LDL greater than 189 mg/dL Very high Cholesterol in VLDL Calc [Ma ss/Vol]Ordered By: Feliberto Faust on 10-27-2021 Cholesterol in VLDL [Mass/Vol] 13 mg/dL [facility] ECG 12 lead ECGon 10-27-2021 ECG 12 lead ECG [facility] [place] [address] Electrocardiograph Report Signed Patient: Bennett Vaughn MR#: [id number] 7 : 1995 Acct:[id number] Age/Sex: 26 / F ADM Date: 10/26/21 Loc: Room: [address] [place] [address] Type: DIS IN Attending Dr: Feliberto Faust [...] : 416 ms Sinus bradycardia with short MA Otherwise normal ECG When compared with ECG of 10-APR-2019 09:44, Vent. rate has decreased BY 29 BPM Confirmed by PAYAM LIVINGSTON DO ([id number]) on 10/27/2021 1:03:16 PM Referred By: Electronically Signed By:PAYAM LIVINGSTON DO Transcribed By: MUS Signed By Payam Livingston DO 10/27 1303 Normal [facility] Lipid Panelon 10-27-2021 Cholesterol [Mass/Vol] 102 mg/dL Low 140-[address] [facility] Comment on above: Result Comment: Chol less than 200 mg/dl low risk Chol 201-239 mg/dl borderline risk Chol 240 mg/dl and greater high risk Performed By: #### L IPID, TSH3 wRFLX, [id number] #### [facility] [address] [place] [address] [facility] Cholesterol in HDL [Mass/Vol] 30 mg/dL Low 35-85 [facility] Comment on above: Result Comment: HDL CHOL ATP-III CLASSIFICATION Cardiovascular Risk HDL > or equal to 60 mg/dL LOW HDL < 40 mg/dL HIGH Performed By: #### L IPID, TSH3 wRFLX, [id number] #### [facility] [address] [place] [address] [facility] Cholesterol.total/Fanny sterol in HDL [Mass ratio] 3.4 {ratio} Normal <5.0 [facility] Comment on above: Performed By: #### L IPID, TSH3 wRFLX, [id number] #### [facility] [address] [place] [address] [place] LDL Cholesterol,Calculated 58 mg/dL Normal 0-100 [facility] Comment on above: Result Comment: LDL ATP III CLASSIFICATION LDL less than 100 mg/dL Optimal LDL 100-129 mg/dL Near or above optimal LDL 130-159 mg/dL Borderline high LDL 160-189 mg/dL High LDL greater than 189 mg/dL Very high Performed By: #### L IPID, TSH3 wRFLX, [id number] #### [facility] [address] [place] [address] [place] Triglyceride w/Reflex 68 mg/dL Normal 35-149 [facility] Comment on above: Result Comment: TRIG ATP III CLASSIFICATION TRIG less than 150 mg/dL Normal TRIG 150-199 mg/dL Borderline high TRIG 200-500 mg/dL High TRIG greater than 500 mg/dL Very high Standard traceable to the Center for Disease Conrtrol and Prevention (CDC) test method. Performed By: #### L IPID, TSH3 wRFLX, [id number] #### [facility] [address] VLDL CHOLESTEROL 13 mg/dL Normal [facility] Comment on above: Performed By: #### L IPID, TSH3 wRFLX, [id number] #### [facility] [address] No Panel InformationOrdered By: Feliberto Faust on 10-27-2021 25-Hydroxy Vitamin D Total 36.4 ng/mL 30-100 [facility] Comment on above: VITAMIN D [...] Cholesterol in HDL [Mass/Vol] 30 mg/dL 35-85 [facility] Comment on above: HDL CHOL ATP-III CLA SSIFICATION Cardiovascular Risk HDL > or equal to 60 mg/dL LOW HDL < 40 mg/dL HIGH Serum or plasma total choles terol/high density lipoprotein (HDL) cholesterol mass ratOrdered By: Feliberto Faust on 10-27-2021 Cholesterol.total/Fanny sterol in HDL [Mass ratio] 3.4 {ratio} <5.0 [facility] TSH DL <= 0.005 mIU/L QnOrde red By: Feliberto Faust on 10-27-2021 TSH Qn 1.28 m[IU]/L 0.45-5.33 [facility] Thyroid Stim Hormone w/Rflxo n 10-27-2021 Thyroid Stim Hormone w/Rflx 1.28 u[iU]/mL Normal 0.45-5.33 [facility] Comment on above: Performed By: #### L IPID, TSH3 wRFLX, [id number] #### [facility] [address] [place] [id number] [facility] Triglyceride [Mass/volume] i n Serum or PlasmaOrdered By: Feliberto Govind on 10-27-2021 Triglyceride [Mass/Vol] 68 mg/dL 35-149 F [facility] Comment on above: TRIG ATP III CLASSIF ICATION TRIG less than 150 mg/dL Normal TRIG 150-199 mg/dL Borderline high TRIG 200-500 mg/dL High TRIG greater than 500 mg/dL Very high Standard traceable to the Center for Disease Conrtrol and Prevention (CDC) test method. Vitamin D 25 Hydroxy Totalon 10-27-2021 Vitamin D 25 Hydroxy Total 36.4 ng/mL Normal 30-100 [facility] Comment on above: Result Comment: KELSEY MIN D STATUS 25(OH)VITAMIN D RANGE (ng/mL) Deficient <20 Insufficient 20 to <30 Sufficient 30 to 100 Reference: Kath MF,Ramón BECERRIL, Teetee DAVIS, et al. Evaluation,treatment, and prevention of vitamin D deficiency; an Endocrine Society clinical practice guideline. JCEM. 2010; 96(7):1911-30. PERFORMED BY: [place] [address] PATHOLOGIST SHROUDMAN AJMES MCNAIR M.D. Performed By: #### C BC, ETOH, CMP #### [facility] [address] [place] [id number] [facility] Albumin [Mass/volume] in Ser um or PlasmaOrdered By: Ed Amaral on 10-26-2021 Albumin [Mass/Vol] 4.0 g/dL 3.2-5.5 [facility] Amphetamine Screen Ql (U)Ord ered By: Ed Amaral on 10-26-2021 Amphetamines Ql (U) Negative Negative [facility] Automated erythrocytes count in urine sediment (number/area)Ordered By: Ed Amaral on 10-26-2021 RBC Auto (Urine sed) [#/Area] 0-1 [HPF] 0-4 [facility] Automated leukocytes count i n urine sediment (number/area)Ordered By: Ed Amaral on 10-26-2021 WBC Auto (Urine sed) [#/Area] 1-2 [HPF] 0-4 [facility] Automated urine color determ inationOrdered By: Ed Amaral on 10-26-2021 Color (U) Yellow Normal Yellow [facility] Comment on above: Order Comment: Name Collection Type:: Clean-Voided Midstream Performed By: #### S OFIANEG, URDS, ADDONUAPLUS, UHCG, COVID-19 FELI #### [facility] [address] Barbiturates [Presence] in U rineOrdered By: Ed Amaral on 10-26-2021 Barbiturates Ql (U) Negative Negative [facility] Basophils Auto (Bld) [#/Vol] Ordered By: Ed Amaral on 10-26-2021 Basophils (Bld) [#/Vol] 0.1 10*3/uL 0.0-0.2 [facility] Basophils/100 WBC Auto (Bld) Ordered By: Ed Amaral on 10-26-2021 Basophils/100 WBC (Bld) 0.8 % . F [facility] Benzodiazepines [Presence] i n UrineOrdered By: Ed Amaral on 10-26-2021 Benzodiazepines Ql (U) Negative [facility] Bil[facility] Test strip Ql (U)O rdered By: Ed Amaral on 10-26-2021 Bilirubin Ql (U) Negative Negative [facility] Blood hemoglobin measurement (mass/volume)Ordered By: Ed Amaral on 10-26-2021 Hemoglobin (Bld) [Mass/Vol] 13.3 g/dL 11.8-15.4 [facility] Blood leukocytes automated c ount (number/volume)Ordered By: Ed Amaral on 10-26-2021 WBC (Bld) [#/Vol] 10.2 10*3/uL 4.5-11.0 [facility] COVID-19 Antigenon 2 COVID-19 Antigen [...] developed and its performance characteristic determined by [employer] and validated at [facility]. This test has not been [...] for SARS Antigen by ERNESTO PERFORMED BY: [place] [address] PATHOLOGIST SHROUDMAN JAMES MCNAIR M.D. [facility] Comment on above: Performed By: #### S OFIANEG, URDS, ADDONUAPLUS, UHCG, COVID-19 FELI #### [facility] [address] COVID-19 SOFIAOrdered By: Archie Amaral on 10-26-2021 SARS-CoV+SARS-CoV-2 (COVID-19) Ag IA.rapid Ql (Resp) Negative Negative [facility] Comment on above: This is a duplicate Feli SARS Antigen (ERNESTO) result to be used for statistical tracking purpose only. Cannabinoids [Presence] in U rine by Screen methodOrdered By: Ed Amaral on 10-26-2021 Cannabinoids Screen Ql (U) Positive Negative [facility] Comment on above: These are unconfirme d results and should not be used for legal purposes. Drug Cut-Off Concentration: AMPH 1000 ng/mL SANCHEZ 200 ng/mL RENZO 200 ng/mL COCM 300 ng/mL OP 300 ng/mL PCP 25 ng/mL THC 20 ng/mL Complete Blood Count Auto Di ffon 10-26-2021 Basophils (Bld) [#/Vol] 0.1 10*3/uL Normal 0.0-0.2 [facility] Comment on above: Result Comment: PERF ORMED BY: [place] [address] PATHOLOGIST SHROUDMAN JAMES MCNAIR M.D. Performed By: #### C BC, ETOH, CMP #### [facility] [address] [place] [address] [place] Basophils/100 WBC (Bld) 0.8 % Normal . F [facility] Comment on above: Performed By: #### C BC, ETOH, CMP #### [facility] [address] [place] [address] [place] Eosinophils (Bld) [#/Vol] 0.2 10*3/uL Normal 0.0-0.45 [facility] Comment on above: Performed By: #### C BC, ETOH, CMP #### [facility] [address] [place] [address] [place] Eosinophils/100 WBC (Bld) 1.9 % Normal . [facility] Comment on above: Performed By: #### C BC, ETOH, CMP #### [facility] [address] Erythrocyte distribution width (RBC) [Ratio] 13.0 % Normal 11.9-15.3 [facility] Comment on above: Performed By: #### C BC, ETOH, CMP #### [facility] [address] Hematocrit (Bld) [Volume fraction] 39.1 % Normal 34.0-46.4 [facility] Comment on above: Performed By: #### C BC, ETOH, CMP #### [facility] [address] Hemoglobin (Bld) [Mass/Vol] 13.3 g/dL Normal 11.8-15.4 [facility] Comment on above: Performed By: #### C BC, ETOH, CMP #### [facility] [address] Lymphocytes (Bld) [#/Vol] 2.2 10*3/uL Normal 1.00-4.8 [facility] Comment on above: Performed By: #### C BC, ETOH, CMP #### [facility] [address] Lymphocytes/100 WBC (Bld) 21.5 % Normal . [facility] Comment on above: Performed By: #### C BC, ETOH, CMP #### [facility] [address] MCH (RBC) [Entitic mass] 32.9 pg Normal 24.7-34.3 [facility] Comment on above: Performed By: #### C BC, ETOH, CMP #### [facility] [address] MCV (RBC) [Entitic vol] 96.5 fL Normal 80-100 F [facility] Comment on above: Performed By: #### C BC, ETOH, CMP #### [facility] [address] Mean Corpuscular HGB Conc 34.1 g/dL Normal 32.0-35.0 [facility] Comment on above: Performed By: #### C BC, ETOH, CMP #### [facility] [address] [place] [address] [place] Monocytes (Bld) [#/Vol] 0.6 10*3/uL Normal 0.0-0.8 [facility] Comment on above: Performed By: #### C BC, ETOH, CMP #### [facility] [address] [place] [address] [place] Monocytes/100 WBC (Bld) 6.2 % Normal . F [facility] Comment on above: Performed By: #### C BC, ETOH, CMP #### [facility] [address] [place] [address] [place] Neutrophils (Bld) [#/Vol] 7.1 10*3/uL Normal 1.8-7.7 [facility] Comment on above: Performed By: #### C BC, ETOH, CMP #### [facility] [address] [place] [address] [place] Neutrophils/100 WBC (Bld) 69.6 % Normal . [facility] Comment on above: Performed By: #### C BC, ETOH, CMP #### [facility] [address] [place] [address] [place] Nucleated RBC/100 WBC (Bld) [Ratio] 0.0 % Normal 0-0.5 [facility] Comment on above: Performed By: #### C BC, ETOH, CMP #### [facility] [address] [place] [address] [place] Platelet mean volume (Bld) [Entitic vol] 9.0 fL Normal 6.3-10.7 [facility] Comment on above: Performed By: #### C BC, ETOH, CMP #### [place] [address] [place] Platelets (Bld) [#/Vol] 173 10*3/uL Normal 150-450 [facility] Comment on above: Performed By: #### C BC, ETOH, CMP #### [facility] [address] [place] [address] [place] RBC (Bld) [#/Vol] 4.05 10*6/uL Normal 3.60-5.00 [facility] Comment on above: Performed By: #### C BC, ETOH, CMP #### [facility] [address] [place] [address] [place] WBC (Bld) [#/Vol] 10.2 10*3/uL Normal 4.5-11.0 [facility] Comment on above: Performed By: #### C BC, ETOH, CMP #### [place] [address] [place] Comprehensive Metabolic Pane vinita 10-26-2021 Albumin [Mass/Vol] 4.0 g/dL Normal 3.2-5.5 [facility] Comment on above: Performed By: #### C BC, ETOH, CMP #### [facility] [address] Albumin/Globulin [Mass ratio] 1.5 {ratio} Normal [facility] Comment on above: Performed By: #### C BC, ETOH, CMP #### [facility] [address] ALP [Catalytic activity/Vol] 55 U/L Normal 32-92 [facility] Comment on above: Performed By: #### C BC, ETOH, CMP #### [facility] [address] ALT [Catalytic activity/Vol] 20 U/L Normal 10-60 [facility] Comment on above: Performed By: #### C BC, ETOH, CMP #### [facility] [address] Anion gap [Moles/Vol] 10.1 mmol/L Normal 6.0-15.[address] [facility] Comment on above: Performed By: #### C BC, ETOH, CMP #### [facility] [address] AST [Catalytic activity/Vol] 17 U/L Normal 10-42 [facility] Comment on above: Performed By: #### C BC, ETOH, CMP #### [facility] [address] [place] [address] [place] Bilirubin [Mass/Vol] 0.4 mg/dL Normal 0.3-1.2 [facility] Comment on above: Performed By: #### C BC, ETOH, CMP #### [facility] [address] [place] [address] [place] Calcium [Mass/Vol] 9.5 mg/dL Normal 8.2-10.2 [facility] Comment on above: Performed By: #### C BC, ETOH, CMP #### [facility] [address] Chloride [Moles/Vol] 104 mmol/L Normal 95-114 [facility] Comment on above: Performed By: #### C BC, ETOH, CMP #### [address] CO2 [Moles/Vol] 25.3 mmol/L Normal 22.0-30.[address] [facility] Comment on above: Performed By: #### C BC, ETOH, CMP #### [address] Creatinine [Mass/Vol] 0.81 mg/dL Normal 0.44-1.03 [facility] Comment on above: Performed By: #### C BC, ETOH, CMP #### [address] Creatinine Clr Calc Pharmacy 97.62 [facility] Comment on above: Result Comment: PERF ORMED BY: [place] [address] PATHOLOGIST SHROUDMAN JAMES MCNAIR M.D. Performed By: #### C BC, ETOH, CMP #### [address] Estimated GFR ( Nette > 60 [facility] Comment on above: Result Comment: GFR estimated reference range: According to KDOQI guidelines, <60 ml/min/1.73m2 is sufficient to diagnose a patient with chronic kidney disease. Performed By: #### C BC, ETOH, CMP #### [address] Estimated GFR (Non- Am > 60 [facility] Comment on above: Performed By: #### C BC, ETOH, CMP #### [address] Globulin (S) [Mass/Vol] 2.7 g/dL Normal [facility] Comment on above: Performed By: #### C BC, ETOH, CMP #### [address] Glucose [Mass/Vol] 98 mg/dL Normal 70-100 [facility] Comment on above: Result Comment: [place] Glucose Reference Range is dependent on time and content of last meal. Glucose of more than 200 mg/dL in a nonstressed, ambulatory subject supports the diagnosis of Diabetes Mellitus. ADA recommended reference range Performed By: #### C BC, ETOH, CMP #### [facility] [address] [place] [id number] [facility] Potassium [Moles/Vol] 3.4 mmol/L Low 3.5-5.1 [facility] Comment on above: Performed By: #### C BC, ETOH, CMP #### [facility] [address] [place] [address] [place] Protein [Mass/Vol] 6.7 g/dL Normal 6.1-7.9 [facility] Comment on above: Performed By: #### C BC, ETOH, CMP #### [facility] [address] [place] [id number] [place] Sodium [Moles/Vol] 136 mmol/L Normal 136-146 [facility] Comment on above: Performed By: #### C BC, ETOH, CMP #### [facility] [address] [place] [id number] [place] Urea nitrogen [Mass/Vol] 6 mg/dL Low 9-23 [facility] Comment on above: Performed By: #### C BC, ETOH, CMP #### [facility] [address] [place] [id number] [place] Creatinine and Glomerular fi ltration rate.predicted panel (S/P/Bld)Ordered By: Ed Amaral on 10-26-2021 Creatinine [Mass/Vol] 0.81 mg/dL 0.44-1.03 [facility] Dipstick and Microscopicon 0 10-26-2021 Appearance (U) Clear Normal Clear [facility] Comment on above: Order Comment: Name Collection Type:: Clean-Voided Midstream Performed By: #### S OFIANEG, URDS, ADDONUAPLUS, UHCG, COVID-19 FELI #### [facility] [address] [place] [id number] [place] Bilirubin,Urine Negative Normal Negative [facility] Comment on above: Order Comment: Name Collection Type:: Clean-Voided Midstream Performed By: #### S OFIANEG, URDS, ADDONUAPLUS, UHCG, COVID-19 FELI #### [facility] [address] Glucose Ql (U) Normal Normal Normal [facility] Comment on above: Order Comment: Name Collection Type:: Clean-Voided Midstream Performed By: #### S OFIANEG, URDS, ADDONUAPLUS, UHCG, COVID-19 FELI #### [facility] [address] [place] [address] [place] Ketones Ql (U) Negative Normal Negative [facility] Comment on above: Order Comment: Name Collection Type:: Clean-Voided Midstream Performed By: #### S OFIANEG, URDS, ADDONUAPLUS, UHCG, COVID-19 FELI #### [facility] [address] [place] [address] Leukocyte esterase Test strip Ql (U) 1+ High Negative [facility] Comment on above: Order Comment: Name Collection Type:: Clean-Voided Midstream Performed By: #### S OFIANEG, URDS, ADDONUAPLUS, UHCG, COVID-19 FELI #### [facility] [address] [place] [address] [place] Nitrite,Urine Negative Normal Negative [facility] Comment on above: Order Comment: Name Collection Type:: Clean-Voided Midstream Performed By: #### S OFIANEG, URDS, ADDONUAPLUS, UHCG, COVID-19 FELI #### [facility] [address] [place], [place] [id number] [place] Occult Blood,Urine Negative Normal Negative [facility] Comment on above: Order Comment: Name Collection Type:: Clean-Voided Midstream Performed By: #### S OFIANEG, URDS, ADDONUAPLUS, UHCG, COVID-19 FELI #### [facility] [address] [place] [address] [place] Protein,Urine Negative Normal Negative [facility] Comment on above: Order Comment: Name Collection Type:: Clean-Voided Midstream Performed By: #### S OFIANEG, URDS, ADDONUAPLUS, UHCG, COVID-19 FELI #### [facility] [address] [place] [address] RBC LM.HPF (Urine sed) [#/Area] 0 /[HPF] Normal 0-4 [facility] Comment on above: Order Comment: Name Collection Type:: Clean-Voided Midstream Performed By: #### S OFIANEG, URDS, ADDONUAPLUS, UHCG, COVID-19 FELI #### [address] Specificy [place],Urine 1.005 Normal 1.001-1.030 [facility] Comment on above: Order Comment: Name Collection Type:: Clean-Voided Midstream Performed By: #### S OFIANEG, URDS, ADDONUAPLUS, UHCG, COVID-19 FELI #### [address] Squamous Epithelial Cell,Urine 1-2 Normal 0-2 [facility] Comment on above: Order Comment: Name Collection Type:: Clean-Voided Midstream Performed By: #### S OFIANEG, URDS, ADDONUAPLUS, UHCG, COVID-19 FELI #### [address] Urobilinogen,Urine Normal Normal Normal [facility] Comment on above: Order Comment: Name Collection Type:: Clean-Voided Midstream Performed By: #### S OFIANEG, URDS, ADDONUAPLUS, UHCG, COVID-19 FELI #### [facility] [address] [place] [address] [place] WBC,Urine 1-2 Normal 0-4 [facility] Comment on above: Order Comment: Name Collection Type:: Clean-Voided Midstream Performed By: #### S OFIANEG, URDS, ADDONUAPLUS, UHCG, COVID-19 FELI #### [address] [address] [place] Drug Screen,Urineon 10-27-19 22 Amphetamine Screen,Urine Negative Normal Negative [facility] Comment on above: Performed By: #### S OFIANEG, URDS, ADDONUAPLUS, UHCG, COVID-19 FELI #### [facility] [address] Barbiturate Screen,Urine Negative Normal Negative [facility] Comment on above: Performed By: #### S OFIANEG, URDS, ADDONUAPLUS, UHCG, COVID-19 FELI #### [facility] [address] [place] [address] Benzodiazepines Screen,Urine Negative Normal Negative [facility] Comment on above: Performed By: #### S OFIANEG, URDS, ADDONUAPLUS, UHCG, COVID-19 FELI #### [facility] [address] [place] [address] Cannabinoid Screen,Urine Positive High Negative [facility] Comment on above: Result Comment: Thes e are unconfirmed results and should not be used for legal purposes. Drug Cut-Off Concentration: AMPH 1000 ng/mL SANCHEZ 200 ng/mL RENZO 200 ng/mL COCM 300 ng/mL OP 300 ng/mL PCP 25 ng/mL THC 20 ng/mL PERFORMED BY: [place] [address] PATHOLOGIST SHROUDMAN JAMES MCNAIR M.D. Performed By: #### S OFIANEG, URDS, ADDONUAPLUS, UHCG, COVID-19 FELI #### [facility] [address] [place] [address] [place] Cocaine Screen,Urine Negative Normal Negative [facility] Comment on above: Performed By: #### S OFIANEG, URDS, ADDONUAPLUS, UHCG, COVID-19 FELI #### [facility] [address] [place] [address] [place] Opiate Screen,Urine Negative Normal Negative [facility] Comment on above: Performed By: #### S OFIANEG, URDS, ADDONUAPLUS, UHCG, COVID-19 FELI #### [facility] [address] Phencyclidine Screen,Urine Negative Normal Negative [facility] Comment on above: Performed By: #### S OFIANEG, URDS, ADDONUAPLUS, UHCG, COVID-19 FELI #### [facility] [address] Eosinophils Auto (Bld) [#/Vo l]Ordered By: Ed Amaral on 10-26-2021 Eosinophils (Bld) [#/Vol] 0.2 10*3/uL 0.0-0.45 [facility] Eosinophils/100 WBC Auto (Bl d)Ordered By: Ed Amaral on 10-26-2021 Eosinophils/100 WBC (Bld) 1.9 % . [facility] Erythrocyte distribution wid th Auto (RBC) [Ratio]Ordered By: Ed Amaral on 10-26-2021 Erythrocyte distribution width (RBC) [Ratio] 13.0 % 11.9-15.3 [facility] Estimated glomerular filtrat ion rate (GFR) non- AmericanOrdered By: Ed Amaral on 10-26-2021 GFR/1.73 sq M.predicted among non-blacks MDRD (S/P/Bld) [Vol rate/Area] > 60 mL/Min [facility] Ethyl Alcohol Profileon 09-29 Ethanol [Mass/Vol] mg/dL Normal [facility] Comment on above: Performed By: #### C BC, ETOH, CMP #### [facility] [address] [place] [address] Percent Ethanol Not performed Normal [facility] Comment on above: Result Comment: PERF ORMED BY: [place] [address] PATHOLOGIST SHROUDMAN JAMES MCNAIR M.D. Performed By: #### C BC, ETOH, CMP #### [facility] [address] [place] [address] Globulin Calc (S) [Mass/Vol] Ordered By: Ed Amaral on 10-26-2021 Globulin (S) [Mass/Vol] 2.7 g/dL F [facility] HCG ( test) IA.rapi d Ql (U)Ordered By: Ed Amaral on 10-26-2021 HCG ( test) Ql (U) Negative [facility] HCG,Urineon 10-26-2021 Beta HCG ( test) Ql (U) Negative Normal [facility] Comment on above: Order Comment: Name Collection Type:: Clean-Voided Midstream Result Comment: PERF ORMED BY: [facility] [address] [place] [address] PATHOLOGIST SHROUDMAN JAMES MCNAIR M.D. Performed By: #### S OFIANEG, URDS, ADDONUAPLUS, UHCG, COVID-19 FELI #### [facility] [address] Hematocrit Auto (Bld) [Volum e fraction]Ordered By: Ed Amaral on 10-26-2021 Hematocrit (Bld) [Volume fraction] 39.1 % 34.0-46.4 [facility] Ketones Auto test strip (U) [Mass/Vol]Ordered By: Ed Amaral on 10-26-2021 Ketones (U) [Mass/Vol] Negative Negative Fi [facility] Laboratory - Drug toxicology Ordered By: Ed Amaral on 10-26-2021 Opiates Ql (U) Negative Negative [facility] Laboratory - Hematology and Cell countsOrdered By: Ed Amaral on 10-26-2021 Nucleated RBC/100 WBC (Bld) [Ratio] 0.0 % 0-0.5 [facility] Lymphocytes Auto (Bld) [#/Vo l]Ordered By: Ed Amaral on 10-26-2021 Lymphocytes (Bld) [#/Vol] 2.2 10*3/uL 1.00-4.8 [facility] Lymphocytes/100 WBC Auto (Bl d)Ordered By: Ed Amaral on 10-26-2021 Lymphocytes/100 WBC (Bld) 21.5 % . [facility] MCH Auto (RBC) [Entitic mass ]Ordered By: Ed Amaral on 10-26-2021 MCH (RBC) [Entitic mass] 32.9 pg 24.7-34.3 [facility] MCHC Auto (RBC) [Mass/Vol]Or dered By: Ed Amaral on 10-26-2021 MCHC (RBC) [Mass/Vol] 34.1 g/dL 32.0-35.0 [facility] MCV Auto (RBC) [Entitic vol] Ordered By: Ed Amaral on 10-26-2021 MCV (RBC) [Entitic vol] 96.5 fL 80-100 F [facility] Monocytes Auto (Bld) [#/Vol] Ordered By: Ed Amaral on 10-26-2021 Monocytes (Bld) [#/Vol] 0.6 10*3/uL 0.0-0.8 [facility] Monocytes/100 WBC Auto (Bld) Ordered By: Ed Amaral on 10-26-2021 Monocytes/100 WBC (Bld) 6.2 % . F [facility] Neutrophils Auto (Bld) [#/Vo l]Ordered By: Ed Amaral on 10-26-2021 Neutrophils (Bld) [#/Vol] 7.1 10*3/uL 1.8-7.7 [facility] Neutrophils/100 WBC Auto (Bl d)Ordered By: Ed Amaral on 10-26-2021 Neutrophils/100 WBC (Bld) 69.6 % . [facility] Nitrite Test strip Ql (U)Ord ered By: Ed Amaral on 10-26-2021 Nitrite Ql (U) Negative Negative [facility] No Panel InformationOrdered By: Ed Amaral on 10-26-2021 Estimated GFR () > 60 mL/Min [facility] Comment on above: GFR estimated refere nce range: According to KDOQI guidelines, <60 ml/min/1.73m2 is sufficient to diagnose a patient with chronic kidney disease. Pharmacy Creatinine Clearance (Chem 97.62 [facility] SARS Antigen (LFIA) [facility] Phencyclidine Screen Ql (U)O rdered By: Ed Amaral on 10-26-2021 Phencyclidine Ql (U) Negative Negative [facility] Platelet mean volume Auto (B ld) [Entitic vol]Ordered By: Ed Amaral on 10-26-2021 Platelet mean volume (Bld) [Entitic vol] 9.0 fL 6.3-10.7 [facility] Platelets Auto (Bld) [#/Vol] Ordered By: Ed Amaral on 10-26-2021 Platelets (Bld) [#/Vol] 173 10*3/uL 150-450 [facility] Protein Auto test strip (U) [Mass/Vol]Ordered By: Ed Amaral on 10-26-2021 Protein (U) [Mass/Vol] Negative Negative [facility] Protein [Mass/volume] in Ser um or PlasmaOrdered By: Ed Amaral on 10-26-2021 Protein [Mass/Vol] 6.7 g/dL 6.1-7.9 [facility] RBC Auto (Bld) [#/Vol]Ordere d By: Ed Amaral on 10-26-2021 RBC (Bld) [#/Vol] 4.05 10*6/uL 3.60-5.00 [facility] Serum or plasma alanine daniel otransferase measurement without P-5'-P (enzymatic activiOrdered By: Ed Amaral on 10-26-2021 ALT No additional P-5'-P [Catalytic activity/Vol] 20 U/L 10-60 [facility] Serum or plasma albumin/glob ulin mass ratioOrdered By: Ed Amaral on 10-26-2021 Albumin/Globulin [Mass ratio] 1.5 {ratio} [facility] Serum or plasma alkaline jame sphatase measurement (enzymatic activity/volume)Ordered By: Ed Amaral on 10-26-2021 ALP [Catalytic activity/Vol] 55 U/L 32-92 [facility] Serum or plasma anion gap de terminationOrdered By: Ed Amaral on 10-26-2021 Anion gap [Moles/Vol] 10.1 mmol/L 6.0-15.[address] [facility] Serum or plasma aspartate am inotransferase measurement (enzymatic activity/volume)Ordered By: Ed Amaral on 10-26-2021 AST [Catalytic activity/Vol] 17 U/L 10-42 [facility] Serum or plasma calcium stephane urement (mass/volume)Ordered By: Ed Amaral on 10-26-2021 Calcium [Mass/Vol] 9.5 mg/dL 8.2-10.2 [facility] Serum or plasma chloride rios surement (moles/volume)Ordered By: Ed Amaral on 10-26-2021 Chloride [Moles/Vol] 104 mmol/L 95-114 [facility] Serum or plasma ethanol stephane urement (mass/volume)Ordered By: Ed Amaral on 10-26-2021 Ethanol [Mass/Vol] mg/dL [facility] Ethanol [Mass/Vol] TNP [facility] Comment on above: Test not performed Serum or plasma glucose stephane urement (mass/volume)Ordered By: Ed Amaral on 10-26-2021 Glucose [Mass/Vol] 98 mg/dL 70-100 [facility] Comment on above: ADA recommended refe rence range Random Glucose Reference Range is dependent on time and content of last meal. Glucose of more than 200 mg/dL in a nonstressed, ambulatory subject supports the diagnosis of Diabetes Mellitus. Serum or plasma potassium me asurement (moles/volume)Ordered By: Ed Amaral on 10-26-2021 Potassium [Moles/Vol] 3.4 mmol/L 3.5-5.1 [facility] Serum or plasma sodium measu rement (moles/volume)Ordered By: Ed Amaral on 10-26-2021 Sodium [Moles/Vol] 136 mmol/L 136-146 [facility] Serum or plasma total biliru bin measurement (mass/volume)Ordered By: Ed Amarla on 10-26-2021 Bilirubin [Mass/Vol] 0.4 mg/dL 0.3-1.2 [facility] Serum or plasma total carbon dioxide measurement (moles/volume)Ordered By: Ed Amaral on 10-26-2021 CO2 [Moles/Vol] 25.3 mmol/L 22.0-30.[address] [facility] Serum or plasma urea nitroge n measurement (mass/volume)Ordered By: Ed Amaral on 10-26-2021 Urea nitrogen [Mass/Vol] 6 mg/dL - [facility] Feli Ag Negativeon 10-27-19 Feli Ag Negative Negative Normal Negative [facility] Comment on above: Result Comment: This is a duplicate Feli SARS Antigen (ERNESTO) result to be used for statistical tracking purpose only. PERFORMED BY: [facility] [address] [place] [address] PATHOLOGIST SHROUDMAN JAMES MCNAIR M.D. Performed By: #### S JOCE, URDS, ADDONUAPLUS, UHCG, COVID-19 FELI #### [facility] [address] Specific gravity Auto test s trip (U) [Rel density]Ordered By: Ed Amaral on 10-26-2021 Specific gravity (U) [Rel density] 1.005 1.001-1.030 [facility] Squamous epithelial cells de tection in urine sediment by light microscopyOrdered By: Ed Amaral on 10-26-2021 Epithelial cells.squamous LM Ql (Urine sed) 1-2 [HPF] 0-2 [facility] Urine bacteria detection by automated methodOrdered By: Ed Amaral on 10-26-2021 Bacteria Auto Ql (U) N/A [facility] Urine clarity by refractomet ry automatedOrdered By: Ed Amaral on 10-26-2021 Clarity Refractometry automated (U) Clear Clear [facility] Urine cocaine detectionOrder ed By: Ed Amaral on 10-26-2021 Cocaine Ql (U) Negative Negative [facility] Urine glucose measurement by automated test strip (mass/volume)Ordered By: Ed Amaral on 10-26-2021 Glucose Auto test strip (U) [Mass/Vol] Normal mg/dL Normal [facility] Urine hemoglobin detection b y automated test stripOrdered By: Ed Amaral on 10-26-2021 Hemoglobin Auto test strip Ql (U) Negative Negative [facility] Urine leukocyte esterase det ection by automated test stripOrdered By: Ed Amaral on 10-26-2021 Leukocyte esterase Auto test strip Ql (U) 1+ Negative [facility] Urine pH measurement by auto mated test stripOrdered By: Ed Amaral on 10-26-2021 pH (U) 7.0 [pH] Normal 5.0-9.0 [facility] Comment on above: Order Comment: Name Collection Type:: Clean-Voided Midstream Performed By: #### S OFIANEG, URDS, ADDONUAPLUS, UHCG, COVID-19 FELI #### [facility] [address] Urobilinogen Auto test strip (U) [Mass/Vol]Ordered By: Ed Amaral on 10-26-2021 Urobilinogen (U) [Mass/Vol] Normal mg/dL Normal [facility] Viral Non-Resp Culton 2021 Viral Non-Resp Cult Specimen Description .WOUND UPPER .LIP Culture POSITIVE: HSV-1 DNA detected by nucleic acid amp. NEGATIVE: HSV-2 DNA not detected by nucleic acid amplification. Due to the specimen source, HSV 1,2 testing was performed by a molecular method. Report Status FINAL 05/30/2021 Normal [facility] Comment on above: Performed By: #### V [facility] #### [place] [address] Sericulture Teacher: Claude Gonzalez MD No Panel InformationOrdered By: Kia Sharma on 05-28-2021 Reported Physicians See Note [facility] Work Phone: Comment on above: Note: Reported Physi cians:Ordering: Andres SharmaaAttending: Andres SharmaaReferring: Kia Sharma Viral Non-Resp Cult See Note [facility] Work Phone: Comment on above: Note: Specimen Descr iption .WOUND UPPER .LIPCulture POSITIVE: HSV-1 DNA detected by nucleic acid amp.NEGATIVE: HSV-2 DNA not detected by nucleic acid amplification.Due to the specimen source, HSV 1,2 testing was performed by a molecular method.Report Status FINAL 2Responsible Observer: SUMMER BOYD ([id number]) Follicle Stimulating Hormone on 03-10-2021 FSH 4.5 U/L 1.7 - 21.5 U/L [facility] Comment on above: Reference Range: Male: 1.5-12.4 Ovulating Female: Follicular Phase 3.5-12.5 Ovulation Phase 4.7-21.5 Luteal Phase 1.7-7.7 Postmenopausal Female: 25.8-134.8 Luteinizing Hormoneon 2021 LH 3.0 U/L 1.0 - 95.6 U/L [facility] Comment on above: Reference Range: Male: 1.7-8.6 Ovulating Female: Follicular Phase 2.4-12.6 Ovulation Phase 14.0-95.6 Luteal Phase 1.0-11.4 Postmenopausal Female: 7.7-58.5 No Panel Informationon 03-10 [facility] Prolactinon 03-10-2021 Prolactin 5.96 ug/L 4.79 - 23.30 ug/L [facility] Comment on above: The presence of macr oprolactin may cause interference in female patients with various endocrinological diseases or during . [employer] [facility] TSH with Reflexon 03-10-2021 TSH Qn 0.72 m[IU]/L [facility] hCG, Quantitative, on 03-10-2021 hCG Quant <1 <5 IU/L [facility] Comment on above: Non-preg premeno <=5 Postmeno <=8 Male <=3 If HCG results do not concur with clinical observations, additional testing to confirm results is recommended. Elevated results not associated with may be found in patients with other diseases such as tumors of the germ cells (testis, ovaries, etc.), bladder, pancreas, stomach, lungs, and liver. [employer] , UrineOrdered By: Anthony Galloway on 10-14-2020 Beta HCG ( test) Ql (U) Negative NEGATIVE [employer] Phone: Comment on above: Specimens with hCG l evels near the threshold of the test (25 mIU/mL) may give a negative or indeterminate result. In such cases, another test should be performed with a new specimen in 48-72 hours. If early is suspected clinically in this setting, correlation with quantitative serum b-hCG level is suggested. [email or web address] has confirmed the use of plasma for this test. This has not been cleared or approved by the U.S. Food and Drug Administration. The FDA has determined that such clearance is not necessary. [employer] Work Phone: COVID-19Ordered By: Sabas siddiqi on 10-10-2020 SARS-CoV-2 (COVID-19) RNA SANDRA+probe Ql (Unsp spec) [employer] Phone: SARS-CoV-2 (COVID-19) RNA SANDRA+probe Ql (Unsp spec) Not detected Not Detected [employer] Phone: Comment on above: The specimen is NEGATIVE for SARS-CoV-2, the novel coronavirus associated with COVID-19. A negative result does not rule out COVID-19. [employer] SARS-CoV-2 for use on the [employer] is a real-time RT-PCR test intended [...] this assay. Fact sheet for Healthcare Providers: https://www.fda.gov/media/346441/download Fact sheet for Patients: https://www.fda.gov/media/906731/download METHODOLOGY: RT-PCR Source .NASOPHARYNGEAL SWAB [employer] Phone: [employer] Phone: Microscopic Urinalysison Amorphous, UA NOT REPORTED None [facility] Bacteria, UA 1+ Abnormal None [facility], [place] Casts UA NOT REPORTED /LPF [facility] Crystals, UA NOT REPORTED None /HPF [facility] Epithelial Cells UA 5 TO 10 [facility], [place] Interpretation and review of laboratory results Abnormal [facility], [place] Mucus, UA NOT REPORTED None [facility], [place] Other Observations UA NOT REPORTED NOT REQ. M [facility], [place] RBC (U) [#/Vol] 0 TO 2 [facility], [place] Renal Epithelial, UA NOT REPORTED 0 /HPF [place], [place] Trichomonas, UA NOT REPORTED None [place], [place] WBC, UA 0 TO 2 [place], [place] Yeast, UA NOT REPORTED None [place], [place] - [place], [place] , Urineon 0 Beta HCG ( test) Ql (U) Negative NEGATIVE [place] Comment on above: Specimens with hCG l evels near the threshold of the test (25 mIU/mL) may give a negative or indeterminate result. In such cases, another test should be performed with a new specimen in 48-72 hours. If early is suspected clinically in this setting, correlation with quantitative serum b-hCG level is suggested. [facility] has confirmed the use of plasma for this test. This has not been cleared or approved by the U.S. Food and Drug Administration. The FDA has determined that such clearance is not necessary. Urinalysis Reflex to Culture on 02-25-2020 Bilirubin Urine Negative NEGATIVE [place], [place] Color, UA YELLOW YELLOW [place] Glucose, Ur Negative NEGATIVE [place] Ketones Ql (U) Negative NEGATIVE [place], [place] Leukocyte esterase Test strip Ql (U) Negative NEGATIVE [place] Nitrite, Urine Negative NEGATIVE [place] pH, UA 6.5 [place] Protein (U) [Mass/Vol] Negative NEGATIVE [place], [place] Specific [place], UA 1.010 [place], [place] Turbidity UA CLEAR CLEAR [place] Urinalysis Comments NOT REPORTED [place], [place] Urine Hgb Negative NEGATIVE [place] Urobilinogen, Urine Normal Normal [place] Wet Prep, Genitalon 02-25-20 20 Direct Exam NO TRICHOMONAS SEEN [place] Direct Exam NO YEAST OBSERVED [place] Direct Exam CLUE CELLS SEEN Abnormal [place], [place] Interpretation and review of laboratory results Abnormal [place] Special Requests NOT REPORTED [place] Specimen Description .VAGINA [place], [place] Laboratory Studieson 016 Albumin [Mass/Vol] 3.4 g/dL 3.2-5.5 [facility] Albumin/Globulin [Mass ratio] 1.5 {ratio} [facility] ALP [Catalytic activity/Vol] 50 U/L 32-92 [facility] ALT [Catalytic activity/Vol] 17 U/L 10-60 [facility] AST [Catalytic activity/Vol] 16 U/L 10-42 [facility] Basophils (Bld) [#/Vol] 0.0 10*3/uL 0.0-0.2 [facility] Basophils/100 WBC (Bld) 0.3 % [facility] Bilirubin Ql (U) 0.2 mg/dL Low 0.3-1.2 [facility] Bilirubin.direct [Mass/Vol] mg/dL 0.0-0.4 [facility] Bilirubin.indirect (Body fld) [Mass/Vol] TNP [facility] Comment on above: Test not performed WHEN BILD IS <0.1,IBIL IS NOT ABLE TO BE CALCULATED. Calcium [Mass/Vol] 9.3 mg/dL 8.2-10.2 [facility] Chloride [Moles/Vol] 106 mmol/L 95-114 [facility] Cholesterol [Mass/Vol] 9 mg/dL Fi [facility] Cholesterol [Mass/Vol] 101 mg/dL Low 140-[address] [facility] Comment on above: CHOL less than 200 m g/dL Low risk CHOL 201-239 mg/dL Borderline risk CHOL 240 mg/dL and greater High risk Cholesterol in HDL [Mass/Vol] 38 mg/dL 35-85 [facility] Comment on above: HDL CHOL ATP-III CLA SSIFICATION Cardiovascular Risk HDL > or equal to 60 mg/dL Low HDL < 40 mg/dL High Cholesterol.total/Fanny sterol in HDL [Mass ratio] 2.7 {ratio} [facility] CO2 [Moles/Vol] 25.8 mmol/L 22.0-30.0 [facility] Creatinine [Mass/Vol] 0.62 mg/dL 0.44-1.03 [facility] Eosinophils (Bld) [#/Vol] 0.10 10*3/uL 0.0-0.45 [facility] Eosinophils/100 WBC (Bld) 1.5 % [facility] Erythrocyte distribution width (RBC) [Ratio] 13.2 % 11.9-15.3 [facility] Estimated GFR (Non- > 60 [facility] GFR/1.73 sq M.predicted MDRD (S/P/Bld) [Vol rate/Area] mL/min/{1.73_m2} [facility] Comment on above: GFR estimated refere nce range: According to KDOQI guidelines, <60 ml/min/1.73m2 is sufficient to diagnose a patient with chronic kidney disease. Globulin (S) [Mass/Vol] 2.2 g/dL [facility] Glucose [Mass/Vol] 82 mg/dL 70-100 [facility] Comment on above: ADA RECOMMENDED REFE RENCE RANGE Hematocrit (Bld) [Volume fraction] 32.1 % Low 34.0-46.4 [facility] Hemoglobin (Bld) [Mass/Vol] 11.0 g/dL Low 11.8-15.4 [facility] LDL Cholesterol, Calculated 54 mg/dL 0-100 [facility] Comment on above: LDL ATP III CLASSIFI CATION LDL less than 100 mg/dL Optimal LDL 100-129 mg/dL Near or above optimal LDL 130-159 mg/dL Borderline high LDL 160-189 mg/dL High LDL greater than 189 mg/dL Very high Lymphocytes (Bld) [#/Vol] 2.1 10*3/uL 1.00-4.8 [facility] Lymphocytes/100 WBC (Bld) 25.3 % [facility] MCH (RBC) [Entitic mass] 31.9 pg 24.7-34.3 [facility] MCHC (RBC) [Mass/Vol] 34.4 g/dL 32.0-35.0 [facility] MCV (RBC) [Entitic vol] 92.6 fL 80-100 [facility] Monocytes (Bld) [#/Vol] 0.7 10*3/uL 0.0-0.8 [facility] Monocytes/100 WBC (Bld) 8.3 % [facility] Neutrophils (Bld) [#/Vol] 5.3 10*3/uL 1.8-7.7 [facility] Neutrophils/100 WBC (Bld) 64.6 % [facility] Platelet mean volume (Bld) [Entitic vol] 9.5 fL 6.3-10.7 [facility] Platelets (Bld) [#/Vol] 135 10*3/uL Low 150-450 [facility] Potassium [Moles/Vol] 4.3 mmol/L 3.5-5.1 [facility] Protein [Mass/Vol] 5.6 g/dL Low 6.1-7.9 [facility] RBC (Bld) [#/Vol] 3.46 10*6/uL Low 3.60-5.00 [facility] Sodium [Moles/Vol] 138 mmol/L 136-146 [facility] Triglyceride [Mass/Vol] 47 mg/dL 35-149 [facility] Comment on above: TRIG ATP III CLASSIF ICATION TRIG less than 150 mg/dL Normal TRIG 150-199 mg/dL Borderline high TRIG 200-500 mg/dL High TRIG greater than 500 mg/dL Very high Standard traceable to the Center for Disease Conrtrol and Prevention (CDC) test method. Troponin I.cardiac [Mass/Vol] 0.02 ng/mL 0-0.02 [facility] Comment on above: HARIS MT Cut off value > or equal to 0.03 ng/mL in conjunction with clinical conditions of myocardial infarction. ([email or web address].org/guidelines) TSH Qn 1.89 uIU/mL 0.340-5.600 [facility] Urea nitrogen [Mass/Vol] 7 mg/dL Low 9-23 [facility] WBC (Bld) [#/Vol] 8.2 10*3/uL 3.8-11.6 [facility] Amorphous sediment LM Ql (Urine sed) 2+ [facility] Comment on above: PHOSPHATES Amphetamines Ql (U) Negative [facility] Appearance (U) Hazy Abnormal [facility] Bacteria LM.HPF (Urine sed) [#/Area] Rare [facility] Benzodiazepines Ql (U) [facility] Bilirubin Ql (U) Negative [facility] Cocaine Ql (U) Negative [facility] Color (U) Light-yellow [facility] Epithelial cells.squamous LM.HPF (Urine sed) [#/Area] 3-4 /hpf [facility] Glucose (U) [Mass/Vol] Normal mg/dL [facility] Ketones Ql (U) Negative [facility] Leukocyte esterase Test strip Ql (U) Negative [facility] Nitrite Ql (U) Negative [facility] Opiates Ql (U) Negative [facility] pH (U) 7.0 [pH] 5.0-9.0 [facility] Phencyclidine Ql (U) Negative [facility] Protein Ql (U) Negative [facility] RBC (U) [#/Vol] Rare /hpf [facility] Specific gravity (U) [Rel density] 1.010 1.001-1.030 [facility] Urine Barbiturates Screen Positive [facility] Urine Collection Type Type [facility] Comment on above: VOIDED Urine Drug Screen Comment See comment [facility] Comment on above: THESE ARE UNCONFIRME D RESULTS AND SHOULD NOT BE USED FOR LEGAL PURPOSES. DRUG CUT-OFF CONCENTRATION: AMPH 1000 ng/mL SANCHEZ 200 ng/mL RENZO 200 ng/mL COCM 300 ng/mL OP 300 ng/mL PCP 25 ng/mL THC 20 ng/mL Urine Marijuana (THC) Screen Positive [facility] Urine Occult Blood Negative [facility] Urobilinogen Qn (U) Normal mg/dL [facility] WBC (U) [#/Vol] Rare /hpf [facility] Laboratory Studieson 02-19-2 016 CK [Catalytic activity/Vol] 51 U/L 22-269 [facility] CK.MB [Mass/Vol] 0.8 ng/mL 0.6-6.3 [facility] Creatine Kinase MB Relative Index 1.5 0.00-2.50 [facility] Vital Signs Date Time Vital Sign Value Performing Clinician Facility 09-12-2023 17:45-0400 Body height 170.2 cm Brenda Stephen [employer] - CN Work Phone: [facility] y prime 09-12-2023 17:45-0400 Body mass index (BMI) [Ratio] 28.82 kg/m2 Brenda Stephen APRN - CN Work Phone: [facility] y prime 09-12-2023 17:45-0400 Body temperature 98.29 [degF] Brenda Stephen APRN - CN Work Phone: [facility] y prime 09-12-2023 17:45-0400 Body weight 83.46 kg Brenda Stephen APRN - CN Work Phone: [facility] y prime 09-12-2023 17:45-0400 Diastolic blood pressure 60 mm[Hg] Brenda Stephen APRN - CN Work Phone: [facility] y prime 09-12-2023 17:45-0400 Heart rate 75 /min Brenda Stephen APRN - [facility] Work Phone: [facility] y prime 09-12-2023 17:45-0400 Respiratory rate 16 /min Brenda Stephen APRN - CN Work Phone: [facility] y prime 09-12-2023 17:45-0400 SaO2% (BldA) [Mass fraction] 98 % Brenda Stephen APRN - CN Work Phone: [facility] y prime 09-12-2023 17:45-0400 Systolic blood pressure 110 mm[Hg] Brenda Stephen APRN - CN Work Phone: [facility] y prime 08-24-2023 20:05-0400 Body temperature 98.1 [degF] Jagdeep D'Abreau DO Work Phone: [facility] y prime 08-24-2023 20:05-0400 Diastolic blood pressure 63 mm[Hg] Jagdeep D'Abreau DO Work Phone: [facility] y prime 08-24-2023 20:05-0400 Heart rate 95 /min Jagdeep D'Abreau DO Work Phone: [employer] 08-24-2023 20:05-0400 Respiratory rate 16 /min Jagdeep D'Abreau DO Work Phone: [facility] y prime 08-24-2023 20:05-0400 SaO2% (BldA) [Mass fraction] 98 % Jagdepemaral Callahaneau DO Work Phone: [facility] y prime 08-24-2023 20:05-0400 Systolic blood pressure 131 mm[Hg] Jagdeep Escobedo'Francoiseeau DO Work Phone: [facility] y prime 08-03-2022 06:56-0400 Body temperature 99 [degF] Samara Paulino MD Work Phone: [employer] 08-03-2022 06:56-0400 Diastolic blood pressure 75 mm[Hg] Samara Paulino MD Work Phone: [employer] 08-03-2022 06:56-0400 Heart rate 129 /min Samara Paulino MD Work Phone: [facility] y prime 08-03-2022 06:56-0400 Respiratory rate 22 /min Samara Paulino MD Work Phone: [employer] 08-03-2022 06:56-0400 SaO2% (BldA) [Mass fraction] 100 % Samara Paulino MD Work Phone: [employer] 08-03-2022 06:56-0400 Systolic blood pressure 131 mm[Hg] Samara Paulino MD Work Phone: [facility] y prime 07-27-2022 18:47-0400 Body height 175.26 cm Mariposa Duncan CNP Work Phone: [facility] Work Phone: 07-27-2022 18:47-0400 Body mass index (BMI) [Ratio] 22 kg/m2 Mariposa Duncan CNP Work Phone: [facility] Work Phone: 07-27-2022 18:47-0400 Body surface area Derived from formula 1.8 m2 Mariposa Duncan CNP Work Phone: [facility] Work Phone: 07-27-2022 18:47-0400 Body temperature 96.3 [degF] Mariposa Duncan CNP Work Phone: [facility] Work Phone: 07-27-2022 18:47-0400 Body weight 67.72 kg Mariposa Duncan CNP Work Phone: [facility] Work Phone: 07-27-2022 18:47-0400 Diastolic blood pressure 63 mm[Hg] Mariposa Duncan CNP Work Phone: [facility] Work Phone: 07-27-2022 18:47-0400 Heart rate 68 /min Mariposa Duncan CNP Work Phone: [facility] Work Phone: 07-27-2022 18:47-0400 SaO2% (BldA) [Mass fraction] 97 % Mariposa Duncan CNP Work Phone: [facility] Work Phone: 07-27-2022 18:47-0400 Systolic blood pressure 117 mm[Hg] Mariposa Duncan CNP Work Phone: [facility] Work Phone: 04-24-2022 13:05-0500 Diastolic blood pressure 60 mm[Hg] Kia Sharma APRN - [employer] Work Phone: [facility] y prime 04-24-2022 13:05-0500 Systolic blood pressure 122 mm[Hg] Kia Sharma APRN - [employer] Work Phone: [facility] y prime 04-24-2022 10:44-0500 Body mass index (BMI) [Ratio] 24.78 kg/m2 Kia Leo [employer] Work Phone: [facility] y prime 04-24-2022 10:44-0500 Body temperature 98.4 [degF] Kia Sharma APRN - [employer] Work Phone: [facility] y prime 04-24-2022 10:44-0500 Body weight 73.94 kg Kia Sharma APRN [facility] Work Phone: [facility] y prime 04-24-2022 10:44-0500 Heart rate 79 /min Kia Sharma APRN - [employer] Work Phone: [facility] y prime 04-24-2022 10:44-0500 Respiratory rate 20 /min Kia Sharma APRN - [employer] Work Phone: [facility] y prime 04-24-2022 10:44-0500 SaO2% (BldA) [Mass fraction] 100 % Kia Sharma APRN - [employer] Work Phone: [employer] 03-04-2022 14:15-0500 Diastolic blood pressure 78 mm[Hg] Geoff Miller MD Work Phone: [facility] y prime 03-04-2022 14:15-0500 Heart rate 74 /min Geoff Miller MD Work Phone: [employer] 03-04-2022 14:15-0500 Respiratory rate 16 /min Geoff Miller MD Work Phone: [facility] y prime 03-04-2022 14:15-0500 SaO2% (BldA) [Mass fraction] 100 % Geoff Miller MD Work Phone: [facility] y prime 03-04-2022 14:15-0500 Systolic blood pressure 131 mm[Hg] Geoff Miller MD Work Phone: [facility] y prime 03-04-2022 13:30-0500 Body temperature 97.2 [degF] Geoff Miller MD Work Phone: [facility] y prime 03-04-2022 11:15-0500 Body height 172.7 cm Geoff Miller MD Work Phone: [facility] y prime 03-04-2022 11:15-0500 Body mass index (BMI) [Ratio] 24.94 kg/m2 Geoff Miller MD Work Phone: [facility] y prime 03-04-2022 11:15-0500 Body weight 74.39 kg Geoff Miller MD Work Phone: [facility] y prime 03-01-2022 08:00-0500 Body mass index (BMI) [Ratio] 24.94 kg/m2 Nicholas Denton MD Work Phone: [facility] y prime 03-01-2022 08:00-0500 Body temperature 98.2 [degF] Nicholas Denton MD Work Phone: [facility] y prime 03-01-2022 08:00-0500 Body weight 74.39 kg Nicholas Denton MD Work Phone: [facility] y prime 03-01-2022 08:00-0500 Diastolic blood pressure 61 mm[Hg] Nicholas Denton MD Work Phone: [facility] y prime 03-01-2022 08:00-0500 Heart rate 89 /min Nicholas Denton MD Work Phone: [facility] y prime 03-01-2022 08:00-0500 Respiratory rate 20 /min Nicholas Denton MD Work Phone: [facility] y prime 03-01-2022 08:00-0500 SaO2% (BldA) [Mass fraction] 99 % Nicholas Denton MD Work Phone: [facility] y prime 03-01-2022 08:00-0500 Systolic blood pressure 138 mm[Hg] Nicholas Denton MD Work Phone: [facility] y prime 10-29-2021 07:30-0400 Body temperature 96.6 [degF] PHYSICIAN NO [facility] 10-29-2021 07:30-0400 Diastolic blood pressure 70 mm[Hg] PHYSICIAN [facility] 10-29-2021 07:30-0400 Heart rate 84 /min PHYSICIAN [facility] 10-29-2021 07:30-0400 Respiratory rate 18 /min PHYSICIAN [facility] 10-29-2021 07:30-0400 SaO2% (BldA) [Mass fraction] 97 % PHYSICIAN NO [facility] 10-29-2021 07:30-0400 Systolic blood pressure 110 mm[Hg] PHYSICIAN NO [facility] 10-27-2021 14:15-0400 Body height 172.72 cm PHYSICIAN NO [facility] 10-26-2021 20:08-0400 Body weight 58.96 kg PHYSICIAN NO [facility] 08-17-2021 16:45-0400 Body height 175.26 cm Kia Sharma [facility] Work Phone: [facility] Work Phone: 08-17-2021 16:45-0400 Body mass index (BMI) [Ratio] 20 kg/m2 Kia Sharma [facility] Work Phone: [facility] Work Phone: 08-17-2021 16:45-0400 Body surface area Derived from formula 1.75 m2 Kia Sharma [facility] Work Phone: [facility] Work Phone: 08-17-2021 16:45-0400 Body surface area Derived from formula 1.7 m2 Mariposa Duncan [facility] Work Phone: [facility] Work Phone: 08-17-2021 16:45-0400 Body temperature 96.7 [degF] Kia Sharma [facility] Work Phone: [facility] Work Phone: 08-17-2021 16:45-0400 Body weight 61.33 kg Kia Sharma CNP Work Phone: [facility] Work Phone: 08-17-2021 16:45-0400 Diastolic blood pressure 64 mm[Hg] Kia Sharma CNP Work Phone: [facility] Work Phone: 08-17-2021 16:45-0400 Heart rate 67 /min Kia Sharma CNP Work Phone: [facility] Work Phone: 08-17-2021 16:45-0400 SaO2% (BldA) [Mass fraction] 99 % Kia Sharma CNP Work Phone: [facility] Work Phone: 08-17-2021 16:45-0400 Systolic blood pressure 110 mm[Hg] Kia Sharma CNP Work Phone: [facility] Work Phone: 07-15-2021 15:57-0400 Body height 175.26 cm Kia Sharma CNP Work Phone: [facility] Work Phone: 07-15-2021 15:57-0400 Body mass index (BMI) [Ratio] 19.8 kg/m2 Kia Sharma CNP Work Phone: [facility] Work Phone: 07-15-2021 15:57-0400 Body surface area Derived from formula 1.74 m2 Kia Sharma CNP Work Phone: [facility] Work Phone: 07-15-2021 15:57-0400 Body temperature 98.1 [degF] Kia Sharma CNP Work Phone: [facility] Work Phone: 07-15-2021 15:57-0400 Body weight 60.78 kg Kia Sharma CNP Work Phone: [facility] Work Phone: 07-15-2021 15:57-0400 Diastolic blood pressure 62 mm[Hg] Kia Sharma CNP Work Phone: [facility] Work Phone: 07-15-2021 15:57-0400 Heart rate 68 /min Kia Sharma CNP Work Phone: [facility] Work Phone: 07-15-2021 15:57-0400 Heart Rate Rhythm 1 1 Kia Sharma CNP Work Phone: [facility] Work Phone: 07-15-2021 15:57-0400 SaO2% (BldA) [Mass fraction] 98 % Kia Sharma CNP Work Phone: [facility] Work Phone: 07-15-2021 15:57-0400 Systolic blood pressure 108 mm[Hg] Kia Sharma CNP Work Phone: [facility] Work Phone: 07-01-2021 17:32-0400 Body height 175.26 cm Kia Sharma CNP Work Phone: [facility] Work Phone: 07-01-2021 17:32-0400 Body mass index (BMI) [Ratio] 20.3 kg/m2 Kia Sharma CNP Work Phone: [facility] Work Phone: 07-01-2021 17:32-0400 Body surface area Derived from formula 1.76 m2 Kia Sharma CNP Work Phone: [facility] Work Phone: 07-01-2021 17:32-0400 Body temperature 97.5 [degF] Kia Sharma CNP Work Phone: [facility] Work Phone: 07-01-2021 17:32-0400 Body weight 62.32 kg Kia Sharma CNP Work Phone: [facility] Work Phone: 07-01-2021 17:32-0400 Diastolic blood pressure 58 mm[Hg] Kia Sharma CNP Work Phone: [facility] Work Phone: 07-01-2021 17:32-0400 Heart rate 775 /min Kia Sharma CNP Work Phone: [facility] Work Phone: 07-01-2021 17:32-0400 Heart Rate Rhythm 1 1 Kia Sharma CNP Work Phone: [facility] Work Phone: 07-01-2021 17:32-0400 SaO2% (BldA) [Mass fraction] 97 % Kia Sharma CNP Work Phone: [facility] Work Phone: 07-01-2021 17:32-0400 Systolic blood pressure 116 mm[Hg] Kia Sharma CNP Work Phone: [facility] Work Phone: 05-28-2021 18:41-0400 Body height 175.26 cm Kia Sharma CNP Work Phone: [facility] Work Phone: 05-28-2021 18:41-0400 Body mass index (BMI) [Ratio] 19.6 kg/m2 Kia Sharma CNP Work Phone: [facility] Work Phone: 05-28-2021 18:41-0400 Body surface area Derived from formula 1.74 m2 Kia Sharma CNP Work Phone: [facility] Work Phone: 05-28-2021 18:41-0400 Body temperature 97.7 [degF] Kia Sharma CNP Work Phone: [facility] Work Phone: 05-28-2021 18:41-0400 Body weight 60.33 kg Kia Sharma CNP Work Phone: [facility] Work Phone: 05-28-2021 18:41-0400 Diastolic blood pressure 76 mm[Hg] Kia Sharma CNP Work Phone: [facility] Work Phone: 05-28-2021 18:41-0400 Heart rate 83 /min Kia Sharma CNP Work Phone: [facility] Work Phone: 05-28-2021 18:41-0400 SaO2% (BldA) [Mass fraction] 98 % Kia Sharma CNP Work Phone: [facility] Work Phone: 05-28-2021 18:41-0400 Systolic blood pressure 122 mm[Hg] Kia Sharma CNP Work Phone: [facility] Work Phone: 10-14-2020 13:00-0400 Diastolic blood pressure 68 mm[Hg] Anthony Galloway MD Work Phone: [employer] Work Phone: 10-14-2020 13:00-0400 Heart rate 60 /min Anthony Galloway MD Work Phone: [employer] Work Phone: 10-14-2020 13:00-0400 Respiratory rate 16 /min Anthony Galloway MD Work Phone: [employer] Work Phone: 10-14-2020 13:00-0400 SaO2% (BldA) [Mass fraction] 99 % Anthony Galloway MD Work Phone: [employer] Work Phone: 10-14-2020 13:00-0400 Systolic blood pressure 114 mm[Hg] Anthony Galloway MD Work Phone: [employer] Work Phone: 10-14-2020 12:25-0400 Body temperature 97.39 [degF] Anthony Galloway MD Work Phone: [employer] Work Phone: 10-14-2020 09:35-0400 Body height 172.7 cm Anthony Galloway MD Work Phone: [employer] Work Phone: 10-14-2020 09:35-0400 Body mass index (BMI) [Ratio] 20.13 kg/m2 Anthony Galloway MD Work Phone: [employer] Work Phone: 10-14-2020 09:35-0400 Body weight 60.06 kg Anthony Galloway MD Work Phone: [employer] Work Phone: 05-27-2020 22:19-0400 Body Temperature 97.5 [degF] [employer] Work Phone: 05-27-2020 22:19-0400 BP Diastolic 79 mm[Hg] [employer] Work Phone: 05-27-2020 22:19-0400 BP Systolic 133 mm[Hg] [employer] Work Phone: 05-27-2020 22:19-0400 Pulse (Heart Rate) 94 /min [employer] Work Phone: 05-27-2020 22:19-0400 Pulse Oximetry 98 % [facility] Work Phone: 05-27-2020 22:19-0400 Respiratory Rate 16 /min [facility] Work Phone: 04-03-2020 16:21-0500 BMI (Body Mass Index) 21.9 kg/m2 [facility] Work Phone: 04-03-2020 16:21-0500 Body Temperature 97.9 [degF] [facility] Work Phone: 04-03-2020 16:21-0500 Body weight 67.13 kg [facility] Work Phone: 04-03-2020 16:21-0500 BP Diastolic 82 mm[Hg] [facility] Work Phone: 04-03-2020 16:21-0500 BP Systolic 138 mm[Hg] [facility] Work Phone: 04-03-2020 16:21-0500 BSA (Body Surface Area) 1.82 m2 [facility] Work Phone: 04-03-2020 16:21-0500 Height 175.26 cm [facility] Work Phone: 04-03-2020 16:21-0500 Pulse (Heart Rate) 77 /min [facility] Work Phone: 04-03-2020 16:21-0500 Pulse Oximetry 96 % [facility] Work Phone: 04-03-2020 16:21-0500 Respiratory Rate 18 /min [facility] Work Phone: 04-03-2020 16:21-0500 SaO2% (BldA) [Mass fraction] 96 % Kia Sharma CNP Work Phone: [facility] Work Phone: 03-20-2020 11:57-0500 BMI (Body Mass Index) 21.4 kg/m2 Kia Sharma [facility] Work Phone: 03-20-2020 11:57-0500 Body weight 65.77 kg Kiafranco Sharma [facility] Work Phone: 03-20-2020 11:57-0500 BSA (Body Surface Area) 1.8 m2 Kia [facility] Work Phone: 03-20-2020 11:57-0500 Height 175.26 cm Kiafranco Sharma [facility] Work Phone: 02-25-2020 21:28-0500 BMI (Body Mass Index) 23.22 kg/m2 [facility] [place] 02-25-2020 21:28-0500 Body Temperature 98.2 [degF] [place], [place] 02-25-2020 21:28-0500 Body weight 70.31 kg [facility] [place] [place] 02-25-2020 21:28-0500 BP Diastolic 76 mm[Hg] [facility], [place] 02-25-2020 21:28-0500 BP Systolic 144 mm[Hg] [place], [place] 02-25-2020 21:28-0500 Height 174 cm [facility] [place] [place] 02-25-2020 21:28-0500 Pulse (Heart Rate) 73 /min [facility] [place] 02-25-2020 21:28-0500 Pulse [facility]ximetry 100 [facility] [place] [place] 02-25-2020 21:28-0500 Respiratory Rate 16 /min [facility] [place] 02-06-2020 17:44-0500 Respiratory Rate 16 /min [facility] [place] 02-06-2020 17:19-0500 BMI (Body Mass Index) 23.57 kg/m2 [facility] [place] 02-06-2020 17:19-0500 Body Temperature 99.61 [degF] [facility] [place] 02-06-2020 17:19-0500 Body weight 70.31 kg [facility], [place] 02-06-2020 17:19-0500 BP Diastolic 60 mm[Hg] [facility] [place] 02-06-2020 17:19-0500 BP Systolic 120 mm[Hg] [facility] [place] 02-06-2020 17:19-0500 Height 172.7 cm [facility], [place] 02-06-2020 17:19-0500 Pulse (Heart Rate) 81 /min [facility], [place] 02-06-2020 17:19-0500 Pulse Oximetry 98 % [facility], [place] 12-24-2019 12:27-0400 BMI (Body Mass Index) 23.42 kg/m2 [facility] [place] 12-24-2019 12:27-0400 Body Temperature 97.9 [degF] [facility] [place] 12-24-2019 12:27-0400 Body weight 69.85 kg [facility], [place] 12-24-2019 12:27-0400 BP Diastolic 64 mm[Hg] [facility] [place] 12-24-2019 12:27-0400 BP Systolic 122 mm[Hg] [facility], [place] 12-24-2019 12:27-0400 Pulse (Heart Rate) 68 /min [facility], [place] 12-24-2019 12:27-0400 Pulse Oximetry 99 % [facility], [place] 12-24-2019 12:27-0400 Respiratory Rate 16 /min [place] NEGATED: Highlighted row BMI (Body Mass Index) [facility] NEGATED: Highlighted row BMI (Body Mass Index) [facility] NEGATED: Highlighted row BMI (Body Mass Index) [facility] NEGATED: Highlighted row Body Temperature [facility] NEGATED: Highlighted row Body Temperature [facility] NEGATED: Highlighted row Body Temperature [facility] NEGATED: Highlighted row Body weight [facility] NEGATED: Highlighted row Body weight [facility] NEGATED: Highlighted row Body weight [facility] NEGATED: Highlighted row BP Diastolic [facility] NEGATED: Highlighted row BP Diastolic [facility] NEGATED: Highlighted row BP Diastolic [facility] NEGATED: Highlighted row BP Systolic [facility] NEGATED: Highlighted row BP Systolic [facility] NEGATED: Highlighted row BP Systolic [facility] NEGATED: Highlighted row Height [facility] NEGATED: Highlighted row Height [facility] NEGATED: Highlighted row Height [facility] NEGATED: Highlighted row Pulse (Heart Rate) [facility] NEGATED: Highlighted row Pulse (Heart Rate) [facility] NEGATED: Highlighted row Pulse (Heart Rate) [facility] NEGATED: Highlighted row Pulse Oximetry [facility] NEGATED: Highlighted row Pulse Oximetry [facility] NEGATED: Highlighted row Pulse Oximetry [facility] NEGATED: Highlighted row Respiratory Rate [facility] NEGATED: Highlighted row Respiratory Rate [facility] NEGATED: Highlighted row Respiratory Rate [facility] Encounters Encounter Date Encounter Type Care Provider Facility Start: 11-01-2023 End: 11-01-2023 ambulatory YURIY DALJIT Not Available Start: 10-23-2023 End: 10-23-2023 ambulatory YURIY DALJIT Not Available Start: 10-16-2023 End: 10-16-2023 ambulatory GENESIS RUSTY Not Available Start: 10-02-2023 End: 10-02-2023 ambulatory YURIY DALJIT Not Available Start: 09-29-2023 End: 09-29-2023 ambulatory [facility] Start: 09-18-2023 End: 09-18-2023 ambulatory GENESIS OJEDA Not Available Start: 09-12-2023 End: 09-12-2023 ambulatory BRENDA Duarte HAILEE [facility] Start: 09-12-2023 End: 09-12-2023 Subsequent hospital visit by physician Brenda Leo CNM Work Phone: [facility] Labor and Delivery Start: 09-04-2023 End: 09-04-2023 ambulatory VIPIN [facility] Start: 09-04-2023 End: 09-04-2023 ambulatory YURIY DALJIT Not Available Start: 09-02-2023 End: 09-03-2023 [facility] Start: 08-24-2023 End: 08-24-2023 ambulatory [facility] Start: 08-24-2023 End: 08-24-2023 Subsequent hospital visit by physician Jagdeep EscobedoAdriano Work Phone: [facility] Labor and Delivery Start: 08-03-2023 End: 08-03-2023 ambulatory GENESIS OJEDA Not Available Start: 07-06-2023 End: 07-06-2023 ambulatory YURIY DALJIT Not Available Start: 06-30-2023 End: 06-30-2023 Emergency department patient visit [facility] Start: 06-20-2023 End: 06-20-2023 ambulatory YURIY DALJIT Not Available Start: 05-23-2023 End: 05-23-2023 ambulatory YURIY DALJIT Not Available Start: 05-18-2023 End: 05-18-2023 Emergency department patient visit [facility] Start: 05-01-2023 End: 05-01-2023 ambulatory YURIY JC [facility] Start: 05-01-2023 End: 05-01-2023 Subsequent hospital visit by physician Kia Sharma APRN - BARREL FINISHER Work Phone: [facility] Laboratory Start: 04-27-2023 End: 04-27-2023 ambulatory YURIY SABILLON Not Available Start: 08-03-2022 End: 08-03-2022 Emergency department patient visit Samara Paulino MD Work Phone: [facility] ED Comment on above: Flank pain (Primary Dx); Urinary tract infection without hematuria, site unspecified Start: 07-27-2022 End: 07-27-2022 FQHC visit, estab pt Mariposa Duncan BARREL FINISHER Work Phone: [facility] Work Phone: Start: 06-03-2022 End: 06-05-2022 Subsequent hospital visit by physician Kulwinder Das Radiologist [facility] Ultrasound Comment on above: Abscess of female br east Start: 04-24-2022 End: 04-24-2022 Emergency department patient visit Kia Edith GRANTN - BARREL FINISHER Work Phone: [facility] ED Comment on above: Nausea vomiting and diarrhea (Primary Dx) Start: 03-15-2022 End: 03-15-[address] YURIY SABILLON Facility:[facility] Start: 03-04-2022 End: 03-04-2022 Subsequent hospital visit by physician Geoff Miller MD Work Phone: [facility] OR Comment on above: Abscess of right lynette ast (Primary Dx) Start: 03-01-2022 End: 03-01-2022 Emergency department patient visit Nicholas Denton MD Work Phone: [facility] ED Comment on above: Cellulitis of right breast (Primary Dx) Start: 10-26-2021 End: 10-29-2021 Evaluation and management of inpatient PHYSICIAN NO FAMILY Facility:[facility] Start: 10-26-2021 End: 10-29-2021 Evaluation and management of inpatient PHYSICIAN NO [facility] [place] [address] Start: 08-17-2021 End: 08-17-2021 FQHC visit, estab pt Halima Argueta [facility] Work Phone: [facility] Work Phone: Start: 08-17-2021 End: 08-17-2021 FQHC visit, estab pt Kia Sharma BARREL FINISHER Work Phone: [facility] Work Phone: Start: 07-15-2021 End: 07-15-2021 FQHC visit, estab pt Halima Condonmons [facility] Work Phone: [facility] Work Phone: Start: 07-15-2021 End: 07-15-2021 FQHC visit, estab pt Kia Edith BARREL FINISHER Work Phone: [facility] Work Phone: Start: 07-01-2021 End: 07-01-2021 FQHC visit, estab pt Kia Sharma BARREL FINISHER Work Phone: [facility] Work Phone: Start: 05-29-2021 End: 05-29-2021 ambulatory KIA SHARMA [facility] Start: 05-28-2021 End: 05-28-2021 Subsequent hospital visit by physician AGNES PRESLEY [facility] Start: 05-28-2021 End: 05-28-2021 FQHC visit, estab pt Kia Sharma BARREL FINISHER Work Phone: [facility] Work Phone: Start: 03-25-2021 End: 03-25-2021 Subsequent hospital visit by physician [facility] Comment on above: Vaginal discharge Start: 03-10-2021 End: 03-10-2021 Subsequent hospital visit by physician [facility] Comment on above: Irregular menstrual cycle Start: 10-14-2020 End: 10-14-2020 Subsequent hospital visit by physician Anthony Galloway MD Work Phone: [facility] Comment on above: 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 Start: 10-09-2020 End: 10-13-2020 Subsequent hospital visit by physician [facility] Jolynnid19 Pat Screening Schedule [facility] PRE ADMIT Comment on above: Preop testing Start: 09-25-2020 End: 09-25-2020 Patient encounter status [facility] Schedule [facility] PRE ADMIT Start: 09-25-2020 End: 09-25-2020 Subsequent hospital visit by physician [facility] Jolynnid19 Pat Screening Schedule 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 Start: 05-27-2020 End: 05-27-2020 Emergency department patient visit Sid Bowensin Work Phone: [facility] ED Comment on above: Dental infection (Pr imary Dx) Start: 04-03-2020 End: 04-03-2020 Established patient Kia Sharma Work Phone: [facility] Work Phone: Start: 04-03-2020 End: 04-03-2020 General Kia Sharma [facility] Work Phone: [facility] Work Phone: Start: 04-03-2020 End: 04-03-2020 General Halima Argueta [facility] Work Phone: [facility] Work Phone: Start: 04-02-2020 End: 04-02-2020 Subsequent hospital [facility] Comment on above: Women's annual routi ne gynecological examination Start: 03-20-2020 End: 03-20-2020 General Halima Argueta Work Phone: [facility] Work Phone: Start: 03-20-2020 End: 03-20-2020 Telemedicine consultation with patient Kia Sharma Work Phone: [facility] Work Phone: Start: 02-25-2020 End: 02-25-2020 Emergency department patient visit Sid Norris Work Phone: [facility] ED Comment on above: Bacterial vaginosis (Primary Dx); Vaginal bleeding Start: 02-06-2020 End: 02-06-2020 Emergency department patient visit [facility] ED Comment on above: Dental abscess (Prim rachele Dx); Dental caries Start: 12-24-2019 End: 12-24-2019 Emergency department patient visit [facility] ED Comment on above: Dental infection (Pr imary Dx) Start: 02-13-2018 End: 02-15-2018 Evaluation and management of inpatient [facility] Start: 02-20-2016 End: 02-23-2016 Evaluation and management of inpatient [facility] Start: 05-12-2015 End: 05-15-2015 Evaluation and management of inpatient [facility] Start: 02-11-2014 End: 02-14-2014 Evaluation and management of inpatient [facility] Start: 04-28-2007 End: 05-28-2007 [facility]charged [facility] Start: 02-27-2007 End: 03-29-2007 [facility] Start: 01-27-2007 End: 02-26-2007 [facility] Start: 11-27-2006 End: 12-27-2006 [facility] Start: 09-27-2006 End: 10-27-2006 [facility] Start: 08-27-2006 End: 09-26-2006 [facility] Start: 07-28-2006 End: 09-26-2006 Discharged Recurring Bryce [facility] Start: 06-27-2006 End: 07-27-2006 Discharged Recurring Bryce [facility] Start: 05-28-2006 End: 06-26-2006 Discharged Recurring Bryce [facility] Start: 04-27-2006 End: 05-27-2006 Discharged Recurring Bryce [facility] Start: 03-30-2006 End: 04-26-2006 Discharged Recurring Bryce [facility] Start: 02-27-2006 End: 03-29-2006 [facility] Start: 01-27-2006 End: 02-26-2006 [facility] Start: 12-28-2005 End: 01-26-2006 [facility] Start: 11-27-2005 End: 12-27-2005 [facility] Start: 10-28-2005 End: 11-26-2005 [facility] Start: 09-27-2005 End: 11-26-2005 [facility] Start: 09-27-2005 End: 10-27-2005 Discharged Recurring Bryce [facility] Start: 08-27-2005 End: 09-26-2005 [facility] Start: 06-27-2005 End: 07-27-2005 Discharged Recurring Bryce [facility] Start: 04-27-2005 End: 05-27-2005 Discharged Recurring Bryce [facility] Start: 03-30-2005 End: 04-26-2005 Discharged Recurring Bryce [facility] Start: 02-27-2005 End: 03-29-2005 Discharged Recurring Bryce [facility] Start: 01-27-2005 End: 02-26-2005 Discharged Recurring Bryce [facility] Start: 12-28-2004 Registered Recurring Bryce [facility] Start: 11-27-2004 End: 12-27-2004 Discharged Recurring Bryce [facility] Start: 11-27-2004 End: 12-27-2004 [facility] Start: 11-27-2004 [facility] Start: 10-28-2004 End: 11-26-2004 Discharged Recurring Bryce [facility] Start: 10-28-2004 End: 11-26-2004 [facility] Start: 09-27-2004 End: 10-27-2004 Discharged Recurring Bryce [facility] Start: 09-27-2004 End: 10-27-2004 Discharged Recurring Bryce [facility] Start: 09-02-2004 End: 09-26-2004 Discharged Recurring Bryce [facility] Start: 09-02-2004 End: 09-26-2004 Discharged Recurring [facility] Start: 05-17-2000 End: 05-27-2000 Discharged Recurring [facility] Procedures Date Procedure Procedure Detail Performing Clinician Start: 09-12-2023 Urnls dip stick/tabl et rgnt auto w/o microscopy Brenda Duarte Rettig SUPER[employer]OR [employer] - CNM Work Phone: Start: 09-02-2023 H/O: section History of delivery affecting Brenda Stephen [employer]OR [employer] - CNM Work Phone: Start: 08-24-2023 Urinalysis microscop ic only Jagdeep Darellu DO Work Phone: Start: 08-24-2023 Urnls dip [...] pressure < 80 mm hg Mariposa Duncan BARREL FINISHER Work Phone: Start: 07-27-2022 Most recent systolic blood pressure <130 mm hg Mariposa Perla BARREL FINISHER Work Phone: Start: 07-27-2022 Urine test visual color cmprsn meths Mariposa Duncan [employer] FINISHER Work Phone: Start: 06-03-2022 Diagnostic mammograp hy [...] test visual color cmprsn carlottas Peterson Paco Benito SUPER[employer]OR [employer] - BARREL FINISHER Work Phone: Start: 08-17-2021 Most recent diastoli c blood pressure < 80 mm hg Kia Sharma BARREL FINISHER Work Phone: Start: 08-17-2021 Most recent systolic blood pressure <130 mm hg Kia Sharma [employer] FINISH[employer] Work Phone: Start: 08-17-2021 Psychotherapy w/hussein ent 30 minutes Halima Argueta [facility] Work Phone: Start: 07-15-2021 Most recent diastoli c blood pressure < 80 mm hg Kia Sharma [employer] FINISH[employer] Work Phone: Start: 07-15-2021 Most recent systolic blood pressure <130 mm hg Kia Sharma [employer] FINISHER Work Phone: Start: 07-15-2021 Psychotherapy w/hussein ent 30 minutes Halima Argueta [facility] Work Phone: Start: 07-01-2021 Most recent diastoli c blood pressure < 80 mm hg Kia Sharma [facility] Work Phone: Start: 07-01-2021 Most recent systolic blood pressure <130 mm hg Kia Sharma [facility] Work Phone: Start: 05-28-2021 Antibody hiv-1&hiv-2 single result Kia Sharma [employer] FINISH[employer] Work Phone: Start: 05-28-2021 Most recent diastoli c blood pressure < 80 mm hg Kia Sharma [facility] Work Phone: Start: 05-28-2021 Most recent systolic blood pressure <130 mm hg Kia Sharma [facility] Work Phone: Start: 05-28-2021 Pt-focused hlth risk assmt score doc stnd instrm Kia Sharma [facility] Work Phone: Start: 05-28-2021 Viral screening Visit For: Scr eening Exam For Herpes Kia Sharma [facility] Work Phone: Start: 03-10-2021 End: 03-10-2021 Gonadotropin follicle stimulating hormone Anthony Galloway MD Work Phone: Start: 10-14-2020 Urine test visual color cmprsn meths Anthony Galloway MD Work Phone: Start: 10-09-2020 COVID-19 Sabas siddiqi MD Work Phone: Start: 04-02-2020 Microscopic observat ion [Identifier] in Cervix by Cyto stain Start: 03-20-2020 delivery only Kia Sharma Start: 03-20-2020 section Kia Sharma [facility] Work Phone: Start: 03-20-2020 Psychotherapy w/hussein ent 30 minutes Halima Argueta Work Phone: Start: 02-25-2020 Smr prim src wet boby nt nfct agt Sid A Jr Work Phone: Start: 02-25-2020 Urinalysis microscop ic only Sid Mccormick tarpipe Work Phone: Start: 02-25-2020 Urine test visual color cmprsn meths Sid Norris Work Phone: Start: 02-25-2020 Urnls dip stick/tabl et rgnt auto w/o microscopy Sid Mccormick [employer]pipe Work Phone: Start: 02-15-2018 DISCHARGE PATIENT JUSTINE LOO Start: 02-13-2018 IP CONSULT TO HISTOR Y AND PHYSICAL FEI LOO Start: 02-13-2018 DIET GENERAL FEI AMIN DECAL TRANSFERRER Start: 02-13-2018 FULL CODE FEI AMIN DECAL TRANSFERRER Start: 02-13-2018 URINE DRUG SCREEN JUSTINE LOO Start: 02-13-2018 Urine test visual color cmprsn meths FEI AMINPTA Start: 02-13-2018 VITAL SIGNS FEI AMIN DECAL TRANSFERRER Start: 02-13-2018 PATIENT STATUS (DIRECT) FEI LOO SARS Antigen (LFIA) PHYSICIA N NO FAMILY Plan of Treatment Date Care Activity Detail Author Start: 2053 Respiratory Syncytia l Virus (RSV) or age 60 yrs+ (1 - 1-dose 60+ series) Respiratory Syncytial Virus (RSV) or age 60 yrs+ (1 - 1-dose 60+ series) [facility] Start: 03-21-2027 DTaP/Tdap/Td vaccine (2 - Td or Tdap) DTaP/Tdap/Td vaccine (2 - Td or Tdap) [facility] Start: 03-21-2027 DTaP/Tdap/Td vaccine (2 - Td) DTaP/Tdap/Td vaccine (2 - Td) [facility] [place] Start: 04-02-2025 Screening for malign ant neoplasm of cervix [facility] Start: 10-29-2023 Respiratory Syncytia l Virus (RSV) or age 60 yrs+ (1 - Risk 1-dose series) Respiratory Syncytial Virus (RSV) or age 60 yrs+ (1 - Risk 1-dose series) [facility] Start: 09-28-2023 Influenza vaccination [facility] Start: 08-25-2023 Tdap Vaccine during Tdap Vaccine during [facility] Start: 04-02-2023 Screening for malign ant neoplasm of cervix [facility] Start: 09-27-2022 Influenza vaccination [facility] Start: 08-25-2022 FQHC visit, estab pt Medical E stablished Patient [facility] Work Phone: Start: 07-27-2022 End: 07-27-2022 Patient education based on identified need [facility] Start: 07-27-2022 CBC W Auto Different ial panel - Blood [facility] Start: 04-25-2022 End: 04-25-2022 Patient encounter procedure 04/25/2022 Appointment Radiology Radiologist, [facility] Start: 03-04-2022 End: 03-04-2022 Incision & drainage abscess simple/single BREAST INCISION AND DRAINAGE Abscess of right breast 03/04/2022 12:36 [facility] Start: 10-29-2021 [facility] Work Phone: Start: 10-28-2021 Influenza vaccination Flu vacc ine (Season Ended) [facility] Start: 10-26-2021 Referral to Record 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 [facility] Work Phone: Start: 10-26-2021 Hospital admission [facility] Work Phone: Start: 09-27-2021 Influenza vaccination Flu vaccine (# 1) [facility] Start: 09-16-2021 FQHC visit, estab pt Medical E stablished Patient [facility] Work Phone: Start: 08-17-2021 FQHC visit, estab pt Medical E stablished Patient [facility] Work Phone: Start: 08-17-2021 End: 08-17-2021 Patient education based on identified need [facility] Start: 07-15-2021 FQHC visit, estab pt Medical E stablished Patient [facility] Work Phone: Start: 07-15-2021 End: 07-15-2021 Patient education based on identified need [facility] Start: 07-01-2021 End: 07-01-2021 Patient education based on identified need [facility] Start: 05-28-2021 End: 05-28-2021 Patient education based on identified need [facility] Start: 04-14-2021 End: 04-14-2021 Patient encounter procedure 04/14/2021 Office Visit Obstetrics and Gynecology Anthony Galloway MD [address] [place], [place] [id number] [facility] OBST[facility]ICS & [facility]YNECOLOGY Part [facility] Start: 03-05-2021 FQHC visit, estab pt Medical E stablished Patient [facility] Work Phone: Start: 10-28-2020 Influenza vaccination [facility] Start: 10-14-2020 End: 10-14-2020 Admission to same day surgery center 10/14/2020 Surgery IP Unit Anthony Galloway MD [address] [place], [place] [id number] DILATATION AND CURETTAGE LEEP-ENDOCERVICAL CURETTAGE [facility] Comment on above: DILATATION AND CURET TAGE LEEP-ENDOCERVICAL CURETTAGE Start: 10-14-2020 Subsequent hospital visit by physician 10/14/2020 Hospital Encounter IP Unit Anthony Galloway MD [address] [place], [place] [id number] [facility] Start: 10-09-2020 End: 10-09-2020 Patient encounter procedure 10/09/2020 Appointment Pre-Admission Testing [facility] PRE ADMIT Start: 09-25-2020 End: 09-25-2021 COVID-19 COVID-19 Lab Routine Preop testing Expected: 09/25/2020, Expires: 09/25/2021 [facility] Work Phone: Comment on above: Expected: 09/25/2020 , Expires: 09/25/2021 Start: 04-23-2020 End: 04-23-2020 Procedure visit 04/23/2020 Procedure visit Obstetrics and Gynecology Anthony Galloway MD [address] [place] [address] [phone] [facility] Start: 04-03-2020 End: 04-03-2020 Patient education based on identified need [facility] Start: 04-03-2020 Medical Establ ished Patient [facility] Work Phone: Start: 03-20-2020 End: 03-20-2020 Patient education based on identified need [facility] Start: 10-29-2019 Influenza vaccination Flu vaccine (# 1) [place], [place] Start: 2014 Screening for malign ant neoplasm of cervix Cervical cancer screen [place], [place] Start: 2011 Hepatitis C screening Hepatitis C sc reen [facility] Start: 2009 COVID-19 Vaccine (1) COVID-19 Vaccin e (1) [facility] Work Phone: Start: 2008 HIV screening HIV screen [facility] Start: 2005 COVID-19 Vaccine (1) COVID-19 Vaccin e (1) [facility] Work Phone: Start: 2005 Depression Monitoring Depression [facility] Start: 2005 Depression Screen Depression Screen [facility] Start: 2004 HPV vaccine (1 - 2-d ose series) HPV vaccine (1 - 2-dose series) [place], [place] Start: 1999 Pneumococcal 0-64 ye ars Vaccine (1 - PCV) Pneumococcal 0-64 years Vaccine (1 - PCV) [facility] Start: 1999 Pneumococcal 0-64 ye ars Vaccine (1 of 1 - PPSV23) Pneumococcal 0-64 years Vaccine (1 of 1 - PPSV23) [place] Start: 1999 Pneumococcal 0-64 ye ars Vaccine (1 of 2 - PCV) Pneumococcal 0-64 years Vaccine (1 of 2 - PCV) [facility] Start: 1999 Pneumococcal 0-64 ye ars Vaccine (1 of 2 - PPSV23) Pneumococcal 0-64 years Vaccine (1 of 2 - PPSV23) [facility] Start: 1998 COVID-19 Vaccine (1) COVID-19 Vaccin e (1) [facility] Start: 1994 Varicella vaccine (1 of 2 - 2-dose childhood series) Varicella vaccine (1 of 2 - 2-dose childhood series) [facility] Start: 1993 COVID-19 Vaccine (#1) COVID-19 Vacci ne (#1) [facility] Start: 1993 Hepatitis B vaccine (1 of 3 - 3-dose series) Hepatitis B vaccine (1 of 3 - 3-dose series) [facility] Start: 1993 Hepatitis C screening Hepatitis C [facility] End: 08-24-2023 Bacteria identified in Urine by Culture Urine culture Microbiology Routine One Time for 1 Occurrences starting 08/24/2023 until 08/24/2023 [facility] Comment on above: One Time for 1 Occur rences starting 08/24/2023 until 08/24/2023 End: 09-12-2023 Bacteria identified in Urine by Culture Urine culture Microbiology Routine One Time for 1 Occurrences starting 09/12/2023 until 09/12/2023 [facility] Comment on above: One Time for 1 Occur rences starting 09/12/2023 until 09/12/2023 End: 02-25-2020 C.trachomatis N.gonorrhoeae DNA C.trachomatis N.gonorrhoeae DNA Microbiology STAT One Time for 1 Occurrences starting 02/25/2020 until 02/25/2020 [facility] Comment [facility]: One Time for 1 Occur rences starting 02/25/2020 until 02/25/2020 C.trachomatis N.gonorrhoeae DNA C.trachomatis N.gonorrhoeae DNA Microbiology STAT 02/25/2020 10:29 PM EST [facility] [place] Culture, Anaerobic a nd Aerobic [facility] Work Phone: Comment on above: Release Upon Orderin g for 1 Occurrences starting 03/04/2022 End: 03-25-2021 Culture, Genital [employer] Phone: Comment on above: 1 Occurrences starti ng 03/25/2021 until 03/25/2021 End: 08-03-2022 Culture, Urine [employer] Phone: Comment on above: Once for 1 Occurrenc es starting 08/03/2022 until 08/03/2022 End: 05-01-2023 Culture, Urine [employer] Phone: Comment on above: Once for 1 Occurrenc es starting 05/01/2023 until 05/01/2023 End: 05-29-2021 Culture, Virus, Non Respiratory Culture, Virus, Non Respiratory Microbiology Routine Once for 1 Occurrences starting 05/29/2021 until 05/29/2021 [employer] Phone: Comment on above: Once for 1 Occurrenc es starting 05/29/2021 until 05/29/2021 Culture, Virus, Non Respiratory Culture, Virus, Non Respiratory Microbiology Routine 05/28/2021 11:57 PM EDT [employer] Phone: End: 04-02-2020 Cytopathology procedure, preparation of smear, genital source PAP SMEAR Lab Routine Women's annual routine gynecological examination 1 Occurrences starting 04/02/2020 until 04/02/2020 [facility] Comment on above: 1 Occurrences starti ng 04/02/2020 until 04/02/2020 nonstress test nonst ress test OB Routine Daily until discontinued starting 08/25/2023 [employer] Phone: Comment on above: Daily until disconti nued starting 08/25/2023 nonstress test nonst ress test OB Routine Daily until discontinued starting 09/13/2023 [employer] Phone: Comment on above: Daily until disconti nued starting 09/13/2023 End: 05-01-2023 HIV Screen [employer] Comment on above: Once for 1 Occurrenc es starting 05/01/2023 until 05/01/2023 End: 03-04-2022 INITIATE PACU OXYGEN THERAPY PROTOCOL Initiate PACU Oxygen Therapy Protocol Respiratory Care Routine Continuous until discontinued starting 03/04/2022 [employer] Phone: Comment on above: Continuous until dis continued starting 03/04/2022 Oxygen therapy [Mini mum Data Set] Initiate Oxygen Therapy Protocol Respiratory Care Routine Daily until discontinued starting 10/14/2020 [employer] Phone: Comment on above: Daily until disconti nued starting 10/14/2020 Oxygen therapy [Mini mum Data Set] Initiate Oxygen Therapy Protocol Respiratory Care Routine As Needed until discontinued starting 03/04/2022 [employer] Work Phone: Comment on above: As Needed until disc ontinued starting 03/04/2022 Patient Education Schizophrenia (DC) [facility] DC Instructions [facility] Work Phone: Patient referral [facility] Work Phone: Phase I & II - meter ed glucose Phase I & II - metered glucose Point of Care Testing Routine As Needed until discontinued starting 10/14/2020 [employer] Phone: Comment on above: As Needed until disc ontinued starting 10/14/2020 End: 08-19-2020 Surgical Pathology Surgical Pathology Lab Routine HGSIL (high grade squamous intraepithelial lesion) on Pap smear of cervix 1 Occurrences starting 08/19/2020 until 08/19/2020 [employer] Phone: Comment on above: 1 Occurrences starti ng 08/19/2020 until 08/19/2020 Surgical Pathology Surgical Path ology Lab Routine Release Upon Ordering for 1 Occurrences starting 10/14/2020 [employer] Phone: Comment on above: Release Upon Orderin g for 1 Occurrences starting 10/14/2020 End: 08-24-2023 SVE SVE Point of Care Testing Routine One Time for 1 Occurrences starting 08/24/2023 until 08/24/2023 [employer]paper Comment on above: One Time for 1 Occur rences starting 08/24/2023 until 08/24/2023 End: 09-12-2023 SVE SVE Point of Care Testing Routine One Time for 1 Occurrences starting 09/12/2023 until 09/12/2023 [employer] Comment on above: One Time for 1 Occur rences starting 09/12/2023 until 09/12/2023 End: 05-01-2023 T. gurmeet Ab [employer] Comment on above: Once for 1 Occurrenc es starting 05/01/2023 until 05/01/2023 Immunizations Immunization Date Immunization Notes Care Provider Ralf kim 02-26-2019 Influenza, injectabl e, Madin Yuki Canine Kidney, preservative free, quadrivalent PHYSICIAN NO [facility] Payers Date Payer Category Payer Private Health Insurance [id number] 2021 Self-pay 1993 Unknown [id number] 2.16.8 [id number] 1993 Unknown [id number] 2.16. [id number] 1993 Unknown [id number] 2.16.84 0.1.663228.3.579.2.593 1993 Unknown [id number] 2.16.8 40.1.366104.3.579.2.173 1993 Unknown [id number] 2.16.8 40.1.185095.3.579.2.173 1993 Unknown [id number] 2.16.8 40.1.511671.3.579.2.173 1993 Unknown [id number] 2.16.8 40.1.817657.3.579.2.173 1993 Unknown [id number] 2.16.8 40.1.959864.3.579.2.173 1993 Unknown [id number] 2.16.8 40.1.594201.3.579.2.173 1993 Unknown [id number] 2.16.8 40.1.626358.3.579.2.173 1993 Unknown [id number] 2.16.8 40.1.442579.3.579.2.173 1993 Unknown [id number] 2.16.84 0.1.858615.3.579.2.9 1993 Unknown [id number] 2.16.84 0.1.159192.3.579.2.9 1993 Unknown [id number] 2.16.84 0.1.563737.3.579.2.9 1993 Unknown [id number] 2.16.84 0.1.811398.3.579.2.9 1993 Unknown [id number] 2.16.84 0.1.706690.3.579.2.1258 1993 Unknown [id number] 2.16.84 0.1.804607.3.579.2.9 1993 Unknown [id number] 2.16.84 0.1.386815.3.579.2.9 1993 Unknown [id number] 2.16.84 0.1.555626.3.579.2.9 1993 Unknown [id number] 2.16.84 0.1.152243.3.579.2.9 1993 Unknown [id number] 2.16.84 0.1.158939.3.579.2.9 1993 Unknown [id number] 2.16.84 0.1.416951.3.579.2.1259 1961 Medicaid [id number] Unknown [id number] 2.16.8 40.1.552789.3.579.2.531 Social History Date Type Detail Facility Start: 12-24-2019 End: 03-01-2022 Tobacco smoking status IDIS Current every day smoker [place], [place] History of tobacco use Cigarette Smoker [place], [place] Start: 12-24-2019 End: 07-08-2024 Cigarettes smoked current (pack per day) - Reported [place] Start: 12-24-2019 End: 09-12-2023 [facility] use and exposure [facility] Start: 12-24-2019 End: 09-12-2023 Alcohol intake Current non-drinker of alcohol (finding) [place], [place] Start: 1995 Sex Assigned At Not on file M [place], [place] Start: 02-19-2022 End: 04-24-2022 Exposure to SARS-CoV-2 (event) Not sure [place] Assertion Exposure to poll ution (event) [facility] Tobacco user (finding) [facility] Tobacco smoking status Unknown i f ever smoked [facility] Work Phone: Assertion Social drinker (finding) [facility] Sexually active (finding) [facility] Assertion Gender identity finding (finding) [facility] Finding of sexua l orientation (finding) [facility] Moderate cigaret te smoker (10-19 cigs/day) (finding) [facility] Assertion Heavy cigarette smoker (20-39 cigs/day) (finding) [facility] Start: 10-27-2021 Assertion Smoker (finding) [facility] Start: 1995 Sex Assigned At Female F [facility] Start: 03-01-2022 History SDOH Alcohol Frequency 1 [employer] Work Phone: Start: 03-01-2022 History SDOH Alcohol Std Drinks 0 [employer] Work Phone: Start: 03-04-2022 Alcohol Comment barely ever- sociall y [employer] Work Phone: Start: 03-01-2022 End: 09-04-2023 Alcohol Use Disorder Identification Test - Consumption [AUDIT-C] [employer] How often to you hav e a drink containing alcohol? Never [employer] Start: 09-12-2023 Tobacco smoking stat us NHIS Ex-smoker SARWAT SANTAMARIA [facility] Start: 03-03-2023 SARWAT METCALF [facility] NEGATED: Highlighted row Assertion [facility] NEGATED: Highlighted row Assertion Current drinker of alcohol (finding) [facility] NEGATED: Highlighted row Assertion Exposure to pollution (event) [facility] Work Phone: Goals Date Patient Goal Desired Activity /State Functional Status Date Assessment Result Facility 10-29-2021 Functional status Patient at [facility] Work Phone: Mental Status Date Assessment Result Facility 10-29-2021 Cognitive function Cognitive Sta tus Patient at [facility] Work Phone: Cognitive function Cognitive fun ctioning was normal Cognitive function finding (finding) [facility] Work Phone: Clinical Notes 03-20-2020 [...] pt that she would be shipped to [place] as we do not deliver less than 35 weeks unless emergent. Pt placed on EF at this time, urine specimen collected and sent to lab. documented in this encounter [facility] 09-12-2023 Hospital Discharg Ana Quintero RN - 09/12/2023 6:51 PM EDT [facility] [address] [address] [phone] ACTIVITY LIMITATIONS: ( )Up and about as [...] be sent through Care Everywhere.: Abdominal Pain (Serbian)documented in this encounter [facility] 08-24-2023 Hospital Discharg e instructions Iman Malhotra RN - 08/24/2023 8:40 PM EDT OUTPATIENT DISCHARGE Dr. Laverne Meyer [facility] Dr. Delano Kruse [facility] [address] [facility] [address] [address] [place] ACTIVITY LIMITATIONS: ( x )Up and about [...] AND DELIVERY . documented in this encounter [facility] 08-03-2022 [facility] Discharg e instructions Samara Paulino MD [...] cannot be sent through Care Everywhere.Flank Pain (Serbian)UTI (Urinary Tract Infection): Female (Serbian)documented in this encounter SARWAT [employer] Phone: 07-27-2022 Instructions Includes: Instructions for all patient encounters Discussed nutritional needs teach healthy choices including fruits and vegetables Last Documented On 3 6:56PM ; [facility] Patient education about a pr oper diet Last Documented On 3 6:56PM ; [facility] Patient education about an a sthma action plan Last Documented On 3 8:31AM ; [facility] Discussed concerns about exe rcise : promote physical activity ~ ~Will add symbicort ~ ~Follow up in one month Last Documented On 3 10:19AM ; [facility] Discussed current self-care methods/coping skills. ~Validated and normalized pt?s feelings while assisting patient process recent events. ~Discussed ongoing counseling. ~Discussed lifestyle changes to address chronic illness. ~Supported patient's personal health goals Last Documented On 2 4:59PM ; [facility] Discussed nutritional needs teach healthy choices including fruits and vegetables Last Documented On 2 4:50PM ; [facility] Patient education about a pr oper diet Last Documented On 2 4:50PM ; [facility] Discussed concerns about exe rcise : promote physical activity Last Documented On 2 4:50PM ; [facility] Discussed current self-care methods/coping skills. ~Validated and normalized pt?s feelings while assisting patient process recent events. ~Discussed ongoing counseling. ~Discussed lifestyle changes to address chronic illness. ~Supported patient's personal health goals Last Documented On 2 8:09PM ; [facility] Discussed nutritional needs teach healthy choices including fruits and vegetables Last Documented On 2 4:02PM ; [facility] Patient education about a pr oper diet Last Documented On 2 4:02PM ; [facility] Discussed concerns about exe rcise : promote physical activity Last Documented On 2 4:02PM ; [facility] Discussed nutritional needs teach healthy choices including fruits and vegetables Last Documented On 2 5:37PM ; [facility] Patient education about a pr oper diet Last Documented On 2 5:37PM ; [facility] Discussed concerns about exe rcise : promote physical activity Last Documented On 2 5:37PM ; [facility] Discussed nutritional needs teach healthy choices including fruits and vegetables Last Documented On 2 6:48PM ; [facility] Patient education about a pr oper diet Last Documented On 2 6:48PM ; [facility] Discussed concerns about exe rcise : promote physical activity Last Documented On 2 6:48PM ; [facility] Discussed nutritional needs teach healthy choices including fruits and vegetables Last Documented On 1 4:21PM ; [facility] Patient education about a pr oper diet Last Documented On 1 4:21PM ; [facility] Discussed concerns about exe rcise : promote physical activity Last Documented On 1 4:21PM ; [facility] Explored current self-care m ethods and encouraged patient to continue using them Last Documented On 1 7:54PM ; [facility] Discussed nutritional needs teach healthy choices including fruits and vegetables Last Documented On 1 11:53AM ; [facility] Patient education about a pr oper diet Last Documented On 1 11:53AM ; [facility] Discussed concerns about exe rcise : promote physical activity Last Documented On 1 11:53AM ; [facility] Work Phone: 1([phone]) 408-115905-31-2023 Evaluation note Includes: Assessments for all patient encounters Findings Encounter Date [Body mass index [BMI] 22.0- 22.9, adult] assessment of body mass index Medical Established Patient with Mariposa Duncan [employer] 07/27/2022 Last Documented On 3 10:19AM ; [facility] Diabetes Risk Test Score was 0.0 score 07/27/2022 Medical Established Patient with Mariposa Perla [facility] 07/27/2022 Last Documented On 3 10:19AM ; [facility] Esophageal reflux without esophagitis Me dical Established Patient with Mariposa Perla [facility] 07/27/2022 Last Documented On 3 10:19AM ; [facility] Schizoaffective disorder Established Patient with Halima Argueta [facility] 08/17/2021 Last Documented On 2 9:40PM ; [facility] Asthma Medical Established Patient with Kia Edith [facility] 08/17/2021 Last Documented On 2 6:20PM ; [facility] Esophageal reflux without esophagitis Me dical Established Patient with Kia Edith [facility] 08/17/2021 Last Documented On 2 6:20PM ; [facility] Schizoaffective disorder Medical Establi shed Patient with Kia Edith [facility] 08/17/2021 Last Documented On 2 6:20PM ; [facility] Z68.20 - Body mass index [BM I] 20.0-20.9, adult Medical Established Patient with Kia Edith [facility] 08/17/2021 Last Documented On 2 6:20PM ; [facility] Schizoaffective disorder Established Patient with Halima Argueta [facility] 07/15/2021 Last Documented On 2 11:18AM ; [facility] Schizoaffective disorder BH Established Patient with Halima Argueta [facility] 07/15/2021 Last Documented On 2 11:18AM ; [facility] Bipolar disorder NOS Medical Established Patient with Kia Edith [facility] 07/15/2021 Last Documented On 2 9:30AM ; [facility] Esophageal reflux without esophagitis Me dical Established Patient with Kia Edith [employer] 07/15/2021 Last Documented On 2 9:30AM ; [facility] Herpes simplex type I Medical Established Patien t with Kia Edith [employer] 07/15/2021 Last Documented On 2 9:30AM ; [facility] Z68.1 - Body mass index [BMI ] 19.9 or less, adult Medical Established Patient with Kia Edith [employer] 07/15/2021 Last Documented On 2 9:30AM ; [facility] Asthma Medical Established Patient with Kia Edith [employer] 07/01/2021 Last Documented On 2 7:44PM ; [facility] Bipolar disorder NOS Medical Established Patient with Kia Edith [employer] 07/01/2021 Last Documented On 2 7:44PM ; [facility] Herpes simplex type I Medical Established Patien t with Kia Edith [employer] 07/01/2021 Last Documented On 2 7:44PM ; [facility] Schizoaffective disorder Medical Establi shed Patient with Kia Edith [employer] 07/01/2021 Last Documented On 2 7:44PM ; [facility] Z68.20 - Body mass index [BM I] 20.0-20.9, adult Medical Established Patient with Kia Edith [employer] 07/01/2021 Last Documented On 2 7:44PM ; [facility] Diabetes Risk Test Score was one score 05/28/2021 Medical Established Patient with Kia Edith [employer] 05/28/2021 Last Documented On 2 8:39AM ; [facility] Herpes simplex type I Medical Established Patien t with Kia Edith [employer] 05/28/2021 Last Documented On 2 8:39AM ; [facility] No cough Medical Established Patient with Kia Edith [employer] 05/28/2021 Last Documented On 2 8:39AM ; [facility] Visit for: screening for hum an immunodeficiency virus Medical Established Patient with Kia Edith [employer] 05/28/2021 Last Documented On 2 8:39AM ; [facility] Z11.59 - Encounter for scree jamari for other viral diseases Medical Established Patient with Kia Sharma [employer] 05/28/2021 Last Documented On 2 8:39AM ; [facility] Z68.1 - Body mass index [BMI ] 19.9 or less, adult Medical Established Patient with Kia Sharma [employer] 05/28/2021 Last Documented On 2 8:39AM ; [facility] Asthma Medical Established Patient with Kia Sharma [employer] 04/03/2020 Last Documented On 1 1:12PM ; [facility] Body mass index Medical Established Patient with Kia Sharma [employer] 04/03/2020 Last Documented On 1 1:12PM ; [facility] Esophageal reflux without esophagitis Me dical Established Patient with Kia Sharma [employer] 04/03/2020 Last Documented On 1 1:12PM ; [facility] Lower backache Medical Established Patient with Kia Sharma [employer] 04/03/2020 Last Documented On 1 1:12PM ; [facility] Bipolar disorder (per denia vega, diagnosed w/both Bipolar I & II) Telebehavioral Health with Halima Condonmons [facility] 03/20/2020 Last Documented On 1 7:55PM ; [facility] Schizoaffective disorder ( r patient report) Telebehavioral Health with Halimachuck Condonmons [facility] 03/20/2020 Last Documented On 1 7:55PM ; [facility] Asthma Telemedicine New Patient with An michelle Sharma [employer] 03/20/2020 Last Documented On 1 9:48AM ; [facility] Lumbago Telemedicine New Patient with An michelle Sharma [employer] 03/20/2020 Last Documented On 1 9:48AM ; [facility] Z68.21 - Body mass index [BM I] 21.0-21.9, adult Telemedicine New Patient with Kia Sharma [employer] 03/20/2020 Last Documented On 1 9:48AM ; [facility] Work Phone: 1(243) 454-611605-31-2023 Progress note* Progress note Date Encounter Last Documented by 07/27/2022 Medical Established Patient Last documented on 07/28/2022; 10:19 AM, Mariposa Duncan CNP; [facility] Active Problems & Conditions - J45.998 - Asthma - M54.50 - Backache Lower - K21.9 - Esophageal Reflux Without Esophagitis - 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 - F25.0 - Schizoaffective Disorder Chief Complaint The Chief Complaint is: Patient states feels like gerd is coming back, patient states that burps smell like rotten eggs or sewer and cutter finger buff material went to ER for migraines. Referred Here [...] BP-Sitting L117/63 mmHg BP Cuff SizeRegular Pulse Rate-Dvcbjth49 bpm Temp-Wawdwcgc50.3 F Genffu26 in Nkqnoj604 lbs 4.8 oz Body Mass Index22 kg/m2 Body Surface Area1.8 m2 Oxygen Vhhkxaocan76 % General Appearance: - Awake. - Alert. [...] household were unable to get needed child specialist: No and unable to get other [...] Less than 40 years (0 points) [Pre-DM]. [facility]05-31-2023 Reason for referral (narrative)* Date Encounter Description Provider Reason for Referral 07/27/22 Medical Established Patient Mariposa Duncan ROLF Referral To Mental Health Team; JENIFFER Referral For [facility] Work Phone: 1(325) 140-811802-26-2023 Hospital Discharge instructions* Discharge Instructions* Christopher Stephenson [...] through Care Everywhere. * Nausea and Vomiting (Serbian) [facility] Work Phone: 1([phone]) 307-402701-06-2023 History of Present illness Narrative* Martha Melgoza [...] smoked today 03/03/22. [facility] Work Phone: 1(748) 371-734501-06-2023 Hospital Discharge instructions* Discharge Instructions* Kassidy Davidson [...] to bathe or shower. documented in [facility] Phone: 1(430) 291-828701-03-2023 Hospital Discharge instructions* Discharge Instructions* Nciholas Denton MD - 03/01/2022 8:09 AM EST Take your medications as prescribed. You may take Tylenol Motrin as needed for pain control as wellas warm compresses. Follow-up with your OB sole layer hand as scheduled. You have been given a referral for general surgeon if this continues for further assessment of possible drainage. * Attachments The following attachments cannot be sent through Care Everywhere. * Cellulitis (Serbian) documented in this encounterB[facility] App Phone: 1(304) 464-777806-21-2022 Evaluation note Includes: Assessments for all patient encounters Findings Encounter Date Schizoaffective disorder BH Established Patient with Halima Argueta [facility] 08/17/2021 Asthma Medical Established Patient with Kia Sharma [employer] 08/17/2021 Esophageal reflux without esophagitis Me dical Established Patient with Kia Edith [employer] 08/17/2021 Schizoaffective disorder Medical Establi shed Patient with Kia Sharma [facility] 08/17/2021 Z68.20 - Body mass index [BM I] 20.0-20.9, adult Medical Established Patient with Kia Edith [employer] 08/17/2021 Schizoaffective disorder BH Established Patient [facility] 07/15/2021 Schizoaffective disorder BH Established Patient with Halima Argueta [facility] 07/15/2021 Bipolar disorder NOS Medical Established Patient with Kia Sharma [facility] 07/15/2021 Esophageal reflux without esophagitis Me dical Established Patient with Kia Sharma [facility] 07/15/2021 Herpes simplex type I Medical Establishe d Patient with Kia Sharma [facility] 07/15/2021 Z68.1 - Body mass index [BMI ] 19.9 or less, adult Medical Established Patient with Kia Edith [facility] 07/15/2021 Asthma Medical Established Patient with Kia Edith [facility] 07/01/2021 Bipolar disorder NOS Medical Established Patient with Kia Edith [facility] 07/01/2021 Herpes simplex type I Medical Establishe d Patient with Kia Sharma [facility] 07/01/2021 Schizoaffective disorder Medical Establi shed Patient with Kia Sharma [facility] 07/01/2021 Z68.20 - Body mass index [BM I] 20.0-20.9, adult Medical Established Patient with Kia Edith [facility] 07/01/2021 Diabetes Risk Test Score was one score 05/28/2021 Medical Established Patient with Kia Edith [facility] 05/28/2021 Herpes simplex type I Medical Establishe d Patient with Kia Edith [facility] 05/28/2021 No cough Medical Established Patient with Kia Edith [facility] 05/28/2021 Visit for: screening for hum an immunodeficiency virus Medical Established Patient with Kia Sharma [facility] 05/28/2021 Z11.59 - Encounter for scree jamari for other viral diseases Medical Established Patient with Kia Sharma [facility] 05/28/2021 Z68.1 - Body mass index [BMI ] 19.9 or less, adult Medical Established Patient with Kia Sharma [employer] 05/28/2021 Asthma Medical Established Patient with Kia Edith [employer] 04/03/2020 Body mass index Medical Established Patient with Kia Edith [employer] 04/03/2020 Esophageal reflux without esophagitis Me dical Established Patient with Kia Sharma [employer] 04/03/2020 Lower backache Medical Established Patient with Kia Sharma [employer] 04/03/2020 Bipolar disorder (per denia vega, diagnosed w/both Bipolar I & II) Telebehavioral Health with Halimachuck [place]ins [facility] 03/20/2020 Schizoaffective disorder (pe r patient report) Telebehavioral Health with Ahlima Argueta [facility] 03/20/2020 Asthma Telemedicine New Pat ient with Kia Sharma [facility] 03/20/2020 Lumbago Telemedicine New Pat ient with Kia Sharma [facility] 03/20/2020 Z68.21 - Body mass index [BM I] 21.0-21.9, adult Telemedicine New Patient with Kia Sharma [facility] 03/20/2020 [facility] Work Phone: 1(620) 716-177205-19-2022 Evaluation note Includes: Assessments for all patient encounters Findings Encounter Date Schizoaffective disorder Established Patient with Halima Ragueta [facility] 07/15/2021 Schizoaffective disorder Established Patient with Halima Argueta [facility] 07/15/2021 Bipolar disorder NOS Medical Established Patient with Kia Sharma [employer] 07/15/2021 Esophageal reflux without esophagitis Me dical Established Patient with Kia Sharma BARREL FINISHER 07/15/2021 Herpes simplex type I Medical Establishe d Patient with Kia Sharma [facility] 07/15/2021 Z68.1 - Body mass index [BMI ] 19.9 or less, adult Medical Established Patient with Kia Edith BARREL FINISHER 07/15/2021 Asthma Medical Established Patient with Kia Edith BARREL FINISHER 07/01/2021 Bipolar disorder NOS Medical Established Patient with Kia Edith BARREL FINISHER 07/01/2021 Herpes simplex type I Medical Establishe d Patient with Kia Edith BARREL FINISHER 07/01/2021 Schizoaffective disorder Medical Establi shed Patient with Kia Edith BARREL FINISHER 07/01/2021 Z68.20 - Body mass index [BM I] 20.0-20.9, adult Medical Established Patient with Kia Sharma [facility] 07/01/2021 Diabetes Risk Test Score was one score 05/28/2021 Medical Established Patient with Kia Sharma [facility] 05/28/2021 Herpes simplex type I Medical Establishe d Patient with Kia Sharma [facility] 05/28/2021 No cough Medical Established Patient with Kia Sharma [facility] 05/28/2021 Visit for: screening for hum an immunodeficiency virus Medical Established Patient with Kia Sharma [facility] 05/28/2021 Z11.59 - Encounter for nettie kauffman for other viral diseases Medical Established Patient with Kia Sharma [facility] 05/28/2021 Z68.1 - Body mass index [BMI ] 19.9 or less, adult Medical Established Patient with Kia Sharma [facility] 05/28/2021 Asthma Medical Established Patient with Kia Sharma [facility] 04/03/2020 Body mass index Medical Established Patient with Kia Sharma [facility] 04/03/2020 Esophageal reflux without esophagitis Me dical Established Patient with Kia Sharma [facility] 04/03/2020 Lower backache Medical Established Patient with Kia Sharma [facility] 04/03/2020 Bipolar disorder (per denia vega, diagnosed w/both Bipolar I & II) Telebehavioral Health with Halima Argueta [facility] 03/20/2020 Schizoaffective disorder (pe r patient report) Telebehavioral Health with Halima Argueta [facility] 03/20/2020 Asthma Telemedicine New Pat ient with Kia Sharma [facility] 03/20/2020 Lumbago Telemedicine New Pat ient with Kia Sharma [facility] 03/20/2020 Z68.21 - Body mass index [BM I] 21.0-21.9, adult Telemedicine New Patient with Kia Sharma [facility] 03/20/2020 [facility] Work Phone: 1(871) 833-550305-05-2022 Evaluation note Includes: Assessments for all patient encounters Findings Encounter Date Asthma Medical Established Patient with Kia Sharma [facility] 07/01/2021 Bipolar disorder NOS Medical Established Patient with Kia Sharma [facility] 07/01/2021 Herpes simplex type I Medical Establishe d Patient with Kia Sharma [facility] 07/01/2021 Schizoaffective disorder Medical Establi shed Patient with Kia Sharma [facility] 07/01/2021 Z68.20 - Body mass index [BM I] 20.0-20.9, adult Medical Established Patient with Kia Sharma [facility] 07/01/2021 Diabetes Risk Test Score was one score 05/28/2021 Medical Established Patient with Kia Sharma [facility] 05/28/2021 Herpes simplex type I Medical Establishe d Patient with Kia Sharma [facility] 05/28/2021 No cough Medical Established Patient with Kia Sharma [facility] 05/28/2021 Visit for: screening for hum an immunodeficiency virus Medical Established Patient with Kia Sharma [facility] 05/28/2021 Z11.59 - Encounter for nettie kauffman for other viral diseases Medical Established Patient with Kia Sharma [facility] 05/28/2021 Z68.1 - Body mass index [BMI ] 19.9 or less, adult Medical Established Patient with Kia Sharma [facility] 05/28/2021 Asthma Medical Established Patient with Kia Sharma [facility] 04/03/2020 Body mass index Medical Established Patient with Kia Sharma [facility] 04/03/2020 Esophageal reflux without esophagitis Me dical Established Patient with Kia Sharma [facility] 04/03/2020 Lower backache Medical Established Patient with Kia Sharma [facility] 04/03/2020 Bipolar disorder (per denia vega, diagnosed w/both Bipolar I & II) Telebehavioral Health with Halima Argueta [facility] 03/20/2020 Schizoaffective disorder (pe r patient report) Telebehavioral Health with Halima Argueta [facility] 03/20/2020 Asthma Telemedicine New Pat ient with Kia Sharma [facility] 03/20/2020 Lumbago Telemedicine New Pat ient with Kia Sharma [facility] 03/20/2020 Z68.21 - Body mass index [BM I] 21.0-21.9, adult Telemedicine New Patient with Kia Sharma [facility] 03/20/2020 [facility] Work Phone: 1(271) 598-491204-01-2022 Evaluation note Includes: Assessments for all patient encounters Findings Encounter Date Diabetes Risk Test Score was one score 05/28/2021 Medical Established Patient with Kia Sharma [facility] 05/28/2021 Herpes simplex type I Medical Establishe d Patient with Kia Sharma [facility] 05/28/2021 No cough Medical Established Patient with Kia Sharma [facility] 05/28/2021 Visit for: screening for hum an immunodeficiency virus Medical Established Patient with Kia Sharma [facility] 05/28/2021 Z11.59 - Encounter for nettie kauffman for other viral diseases Medical Established Patient with Kia Sharma [facility] 05/28/2021 Z68.1 - Body mass index [BMI ] 19.9 or less, adult Medical Established Patient with Kia Sharma [facility] 05/28/2021 Asthma Medical Established Patient with Kia Sharma [facility] 04/03/2020 Body mass index Medical Established Patient with Kia Sharma [facility] 04/03/2020 Esophageal reflux without esophagitis Me dical Established Patient with Kia Sharma [facility] 04/03/2020 Lower backache Medical Established Patient with Kia Sharma [facility] 04/03/2020 Bipolar disorder (per denia vega, diagnosed w/both Bipolar I & II) Telebehavioral Health with [place] Argueta [facility] 03/20/2020 Schizoaffective disorder (pe r patient report) Telebehavioral Health with Halima Argueta [facility] 03/20/2020 Asthma Telemedicine New Pat ient with Kia Sharma [facility] 03/20/2020 Lumbago Telemedicine New Pat ient with Kia Sharma [facility] 03/20/2020 Z68.21 - Body mass index [BM I] 21.0-21.9, adult Telemedicine New Patient with Kia Sharma [facility] 03/20/2020 [facility] Work Phone: 1(154) 197-811508-18-2021 History of Present illness Narrative* Irish Nelson [...] RN - 10/14/2020 12:39 PM EDT Rogers PIPE BLANKS CUT OFF SAW OPERATOR in to see patient. Patient's boyfriend called to clam picker. * Rufina Hamilton RN - 09/28/2020 [...] at this time. [facility] Work Phone: 1(378) 155-770202-05-2021 Evaluation note Includes: Assessments for all patient encounters Findings Encounter Date Asthma Medical Established Patient with Kia Sharma CNP 04/03/2020 Body mass index Medical Established Patient with Kia Shrama BARREL FINISHER 04/03/2020 Esophageal reflux without esophagitis Me dical Established Patient with Kia Sharma BARREL FINISHER 04/03/2020 Lower backache Medical Established Patient with Kia Sharma [facility] 04/03/2020 Bipolar disorder (per denia vega, diagnosed w/both Bipolar I & II) Telebehavioral Health with Halima Argueta [facility] 03/20/2020 Schizoaffective disorder (pe r patient report) Telebehavioral Health with Halima Argueta [facility] 03/20/2020 Asthma Telemedicine New Pat ient with Kia Sharma CNP 03/20/2020 Lumbago Telemedicine New Pat ient with Kia Sharma CNP 03/20/2020 Z68.21 - Body mass index [BM I] 21.0-21.9, adult Telemedicine New Patient with Kia Sharma BARREL FINISHER 03/20/2020 [facility] Work Phone: 1(291) 662-475001-22-2021 History general Narrative - Reported Includes: Medical History in patient's chart Description Last Updated per pt report- 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 ~heartb urn 03/20/2020 History of psychiatric disor ders ADHD, manic bipolar 1 and 2, schizoeffective disorder 03/20/2020 History of tooth extraction 03/20/2020 History of asthma 03/20/2020 A recent immunization for flu 03/20/2020 No previous hospitalizations 03/20/2020 [facility] Work Phone: 1(292) 446-452301-22-2021 History general Narrative - Reported Includes: Medical History in patient's chart Description Last Updated per pt report- 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 ~heartb urn 03/20/2020 Last Documented On 1 9:48AM ; [facility] History of psychiatric disor ders ADHD, manic bipolar 1 and 2, schizoeffective disorder 03/20/2020 Last Documented On 1 9:48AM ; [facility] History of tooth extraction 03/20/2020 Last Documented On 1 9:48AM ; [facility] History of asthma 03/20/2020 Last Documented On 1 9:48AM ; [facility] A recent immunization for flu 03/20/2020 Last Documented On 1 9:48AM ; [facility] No previous hospitalizations 03/20/2020 Last Documented On 1 9:48AM ; [facility] Work Phone: Discharge summary Author Osmani baugh [facility] October 29, 2021 9:52am Note Date/Time October 29, 2021 9:52am [facility] [address] [place] [id number] Discharge Summary Signed Patient: Bennett Vaughn MR#: [id number] : 1995 Acct:[id number] Age/Sex: 26 / F Adm Date: 2 Loc: 1S Room: 2T8938-[address]: Feliberto Faust MD Copies to: [...] Alcohol use: once a year Substance Use: marijauna daily Living: boyfriend 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 [...] 15 Days Qty: 30 1RF 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: 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 Record 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 [Other] (Therapy: Case management: ) Documented By: Osmani Timmons MD 2 0949 Signed By: <Electronically signed by Osmani Timmons MD> 10/29/21 0952 [facility] Work Phone: Evaluation note* Diagnosis HGSIL (high grade squamous intraepithelial lesion) on Pap smear of cervix documented in this encounter [employer] Phone: [email or web address] note* Diagnosis Preop testing- Primary Preoperative examination, unspecified documented in this encounter [employer] Phone: evaluation note* Diagnosis Preop testing Preoperative examination, unspecified documented in this encounter [employer] Phone: Evaluation note* Diagnosis 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 documented in this encounter [employer] Phone: evaluation note* Diagnosis Irregular menstrual cycle documented in this encounter [employer] Phone: evaluation note* Diagnosis Vaginal discharge Leukorrhea, not specified as infective documented in this encounter [employer] Phone: [email or web address] note* Diagnosis Onset Date Resolution Status Bipolar affective, mixed, sev w/ psych acute Chronic schizophrenia acute PTSD (post-traumatic stress disorder) acute Suicidal ideation acute [facility] Work Phone: Evaluation note* Diagnosis Cellulitis of right breast- Primary documented in this encounter [employer] Phone: evaluation note* Diagnosis Abscess of right breast- Primary Inflammatory disease of breast Abscess of right breast Inflammatory disease of breast documented in this encounter [employer] Work Phone: evaluation note* Diagnosis Nausea vomiting and diarrhea- Primary Nausea with vomiting documented in this encounter [employer] Phone: evaluation note* Diagnosis Abscess of female breast Inflammatory disease of breast documented in this encounter [employer] Phone: evaluation note* Diagnosis Flank pain- Primary Abdominal pain, unspecified site Urinary tract infection without hematuria, site unspecified documented in this encounter [employer] Phone: evaluation note* Diagnosis Abdominal pain- Primary Abdominal pain, unspecified site documented in this encounter [employer] note* Diagnosis Abdominal cramping- Primary Abdominal pain, unspecified site [facility] Author Feliberto Faust [facility] October 27, 2021 3:07pm Note Date/Time October 27, 2021 3: 07pm [facility] [address] [place] [address] Psychiatry H&P Signed Patient: Bennett Vaughn MR#: [id number] : 1995 Acct:[id number] Age/Sex: 26 / F Adm Date: 2 Loc: 1S Room: [address] [place] [address] Type: ADM IN Attending Dr: Feliberto Faust [...] Alcohol use: once a year Substance Use: marijauna daily Living: boyfriend 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 Please call the office as soon as possible for a post-operative visit in two weeks. If you experience any unusual amount of bleeding or side effects that you cannot readily explain, please do not hesitate to call the office. documented in this [facility] Work Phone: Hospital Discharge instructions Additional Instructions Regular diet No activity [facility] Work Phone: Instructions Instructions not supported for this document type No Instructions [facility] Work Phone: Patient problem outcome Narrative Includes: Evaluations & Outcomes for active Goals No Outcomes [facility] Work Phone: Progress note Author Osmani baugh [facility] October 28, 2021 12:18pm Note Date/Time October 28, 2021 12:18pm [facility] [address] [place] [address] Psychiatry Progress Note Signed Patient: Bennett Vaughn MR#: [id number] : 1995 Acct:[id number] Age/Sex: 26 / F Adm Date: 2 Loc: Room: [address] [place] [address] Type : ADM IN Attending Dr: Feliberto [...] signed by Osmani Timmons MD> 10/28/21 1218 [facility] Work Phone: Reason for referral (narrative)No Reason for Referral [facility] Work Phone: Review of systems Narrative - Reported Review of Systems not supported for this document type No Review of Systems [facility] Work Phone: Summary Purpose Family History No Family History Records Found Description Last Updated father unknown 03/20/2020 Fraternal history of asthma 03/20/2020 Maternal history of hypertension 021 Relationship Condition Age at Onset Recorded Date/T jama Not Specified Bipolar affective disorder Unknown Hypertension Unknown brother Asthma Unknown Description Last Updated father unknown 03/20/2020 Last Documented On 1 9:48AM ; [facility] Fraternal history of asthma 03/20/2020 Maternal history of hypertension 021 Advance Directives No Advanced Directives Records FoundDocuments on File Type Date Recorded Patient Copper Flotation Operator Expl anation ACP-Advance Directive ACP-Power of Drum Saw Operator Latest Code Status on File Code Status Date Activated Date Inactivated Comments Full Code 02/13/2018 11:30 AM 02/15/2018 11:04 PM Full Code 07/15/2017 3:32 AM 07/17/2017 3:26 PM Full Code 07/15/2017 3:31 AM 07/15/2017 3:32 AM Full Code 10/29/2016 5:43 AM 11/02/2016 12:08 AM Full Code 02/14/2015 3:50 AM 02/17/2015 4:19 PM Documents on File Type Date Recorded Patient Copper Flotation Operator Expl anation ACP-Advance Directive ACP-Power of Drum Saw Operator Latest Code Status on File Code [...] sent through Care Everywhere. * Tooth: Abscessed (Serbian) documented in this encounter* Instructions* Sid Norris [...] sent through Care Everywhere. * Bacterial Vaginosis (Serbian) * Vaginal Bleeding (Serbian) documented in this encounter* Instructions* Irina Ojeda PA-C - 02/06/2020 Call your dentist to arrange follow-up for recheck this week. * Attachments The following attachments cannot be sent through Care Everywhere. * Tooth: Abscessed (Serbian) documented in this encounter* Instructions* Jose Saldaña APRN - CNP - 12/24/2019 Take amoxicillin as prescribed. Return to the emergency department for worsening symptoms. * Attachments The following attachments cannot be sent through Care Everywhere. * Dental Care: Pre-Dental Work Precautions: General Info (Serbian) documented in this encounter Assessments Diagnosis Dental infection Acute apical periodontitis of pulpal origin Diagnosis Dental abscess Periapical abscess without sinus Dental caries Unspecified dental caries Diagnosis Bacterial vaginosis- Primary Vaginitis and vulvovaginitis, unspecified Vaginal bleeding Other specified noninflammatory disorder of vagina Findings Encounter Date Bipolar disorder (per denia vega, diagnosed w/both Bipolar I & II) [facility] with Halima Argueta [facility] 03/20/2020 Schizoaffective disorder (pe r patient report) [facility]behavioral Health with Halima Argueta [facility] 03/20/2020 Asthma Telemedicine New Pat ient with Kia Sharma [facility] 03/20/2020 Lumbago Telemedicine New Pat ient with Kia Sharma [facility] 03/20/2020 Z68.21 - Body mass index [BM I] 21.0-21.9, adult Telemedicine New Patient with Kia Sharma [facility] 03/20/2020 Diagnosis Women's annual routine gynecological examination Findings Encounter Date Asthma Medical Established Patient with Kia Sharma [facility] 04/03/2020 Body mass index Medical Established Patient with Kia Sharma [facility] 04/03/2020 Esophageal reflux without esophagitis Me dical Established Patient with Kia Sharma [facility] 04/03/2020 Lower backache Medical Established Patient with Kia Sharma [facility] 04/03/2020 Bipolar disorder (per denia vega, diagnosed w/both Bipolar I & II) Telebehavioral Health with [place] [facility] 03/20/2020 Schizoaffective disorder (pe r patient report) Telebehavioral Health with Halima [place] [facility] 03/20/2020 Asthma Telemedicine New Pat ient with Kia Sharma [facility] 03/20/2020 Lumbago Telemedicine New Pat ient with Kia Sharma [facility] 03/20/2020 Z68.21 - Body mass index [BM I] 21.0-21.9, adult Telemedicine New Patient with Kia Sharma [facility] 03/20/2020 Diagnosis Dental infection- Primary Acute [...] section and content) DATE CREATED AUTHOR 12/08/2018 [facility] DATE CREATED AUTHOR AUTHOR'S ORGANIZ ATION 05/31/2021 [facility] DATE CREATED AUTHOR AUTHOR'S ORGANIZ ATION 03/16/2022 [facility] DATE CREATED AUTHOR AUTHOR'S ORGANIZ ATION 04/02/2022 [facility] DATE CREATED AUTHOR AUTHOR'S ORGANIZ ATION 10/02/2023 [facility] DATE CREATED AUTHOR AUTHOR'S ORGANIZ ATION 11/03/2023 [facility] dical Specialists EPIC Reason for [...] (cervical intraepithelial neoplasia II) SHREYA II Procedures MA CONIZATION CERVIX,LOOP ELECTRD DILATATION AND CURETTAGE LEEP-ENDOCERVICAL CURETTAGE Anthony Galloway MD [address] [place] [address] [facility] Reason Comments Breast Pain Right sided, onset y esterday pm, patient states she had an infection in her right breast a few months ago Specialty Diagnoses / Procedures [facility] Referred To Contact Diagnoses Abscess of right breast right breast abcess Procedures MA DRAIN SKIN ABSCESS SIMPLE BREAST INCISION AND DRAINAGE- BREAST Geoff Miller MD [facility] [place] [address] [facility] [address] [place] [address] Referral ID Status Reason Start Date Expiration Date Visits Re quested Visits Authorized [id number] 1 1 Reason Comments Nausea Emesis Illness Pt. States she has h ad nausea & vomiting since this am. Reports hot & cold flashes & Occasional dizziness Specialty Diagnoses / Procedures Referred By Gladis vega Referred To Contact Radiology Diagnoses Abscess of female breast Procedures US BREAST LIMITED RIGHT US BREAST COMPLETE RIGHT Geoff Miller MD [facility] [place] [address] Referral ID Status Reason Start Date Expiration Date Visits Re quested Visits Authorized [id number] Open 04/18/2022 04/18/2023 1 1 Specialty Diagnoses / Procedures [facility] Referred To Contact Radiology Diagnoses Abscess of female breast Procedures DUSTIN JASMINA DIGITAL DIAGNOSTIC BILATERAL DUSTIN DIGITAL DIAGNOSTIC W OR WO CAD BILATERAL Geoff Miller MD [address] [place] [address] Referral ID Status Reason Start Date Expiration Date Visits Re quested Visits Authorized [id number] Closed 04/18/2022 04/18/2023 1 1 Reason Comments [...] 100 mL IVPB (COMPLETED) 2,000 mg, Intravenous, OPERATING ROOM SCHEDULER TO O.R., 1 dose, On Mon10/14/20 at [...] 100 mL IVPB (COMPLETED) 2,000 mg, IntraVENous, OPERATING ROOM SCHEDULER TO O.R., 1 dose, On Mon03/04/22 at 1115, Antimicrobial Indications: Surgical Prophylaxis, Administer within 1 hour prior to incision. Recommend to repeat in 3-4 hours after initial dose if still intra-op., Pre-op (day of surgery) 1244 (Given - Provid er: Roseanne Kruse APRN - PIPE BLANKS CUT OFF SAW OPERATOR) dimenhyDRINATE (DRAMAMINE) tablet 50 mg (COMPLETED) [...] FAMILY Primary Care Provider Active Ed Amaral , Emergency Provider Active Feliberto Faust MD Admit Provider, Attending Provider Active Team Status: Active Member Role Status Dates PHYSICIAN NO FAMILY Primary Care Provider Active [employer] Infrastructure Consultant Relationship Specialty Start Date End Date Kia Sharma SUPERVISOR [employer] - BARREL FINISHER [address] [place] [address] PCP - General Nurse Practitioner 04/13/22 [employer] Consultant Relationship Specialty Start Date End Date Kia Sharma APRN - BARREL FINISHER [address] [place] [address] PCP - General Nurse Practitioner 04/13/22 [employer] Infrastructure Consultant Relationship Specialty Start Date End Date Kia Sharma SUPERVISOR [employer] - BARREL FINISHER [address] [place] [address] PCP - General Nurse Practitioner 04/13/22 [employer] Infrastructure Consultant Relationship Specialty Start Date End Date Kia Sharma APRN - BARREL FINISHER [address] [place] [phone] PCP - General Nurse Practitioner 04/13/22 [employer] Infrastructure Consultant Relationship Specialty Start Date End Date Kia Sharma SUPERVISOR [employer] - BARREL FINISHER [address] [place] [phone] PCP - General Nurse Practitioner 04/13/22 [employer] Infrastructure Consultant Relationship Specialty Start Date End Date Kia Sharma SUPERVISOR [employer] HANDL[employer] - BARREL FINISHER [address] [place] [phone] PCP - General Nurse Practitioner 04/13/22 FOR [...] BE BASED ON THE PRIMARY CLINICAL RECORDS. [facility] [facility] provides no warranty or guarantee of the accuracy or completeness of information in this document.
[2023-11-06 19:47] VITALS: BP 133/74; PULSE 81
--- NOTE | 2023-11-06 20:03 | US_ITS ---
[address] [address] Patient Name: BENNETT EM MRN: [id number]:[id number] date: 1995 Sex: F Assigned Patient Location: US Current Patient Location: US Accession/Order Number: [id number] Exam Date: 11/06/2023 20:09 Report Date: 11/07/2023 04:19 At the request of: HELIO OJEDA Procedure: US OB BPP w non-stress EXAMINATION: US OB BPP w non-stress HISTORY:SGA P05.10 COMPARISON: Ultrasound OB biophysical 10/31/2023 TECHNIQUE: Ultrasound biophysical profile was performed in the radiology department. BREATHING MOVEMENTS: 2 GROSS BODY MOVEMENTS: 2 TONE: 2 QUALITATIVE AMNIOTIC FLUID VOLUME: 2 PRESENTATION: BREECH HEART RATE: 132.35 bpm AMNIOTIC FLUID VOLUME: 14.13 cm GESTATIONAL AGE: 37 weeks 3 days US/US OB BPP w non-stress IMPRESSION: Total biophysical profile score: 8 Electronically authenticated by: HELENA CASTRO Date: 11/07/2023 04:19
== END 2023-11-06 20:51 | disposition home or self-care (01) ==
LOC: US 07:10 → FBC 19:42
PROVIDERS: Visit Provider Physician Assistant
DX: O26.843 Uterine size-date discrepancy, third trimester (principal); Z3A.37 37 weeks gestation of pregnancy
CPT/HCPCS: 76818

== ENCOUNTER 2023-11-09 13:34 | Inpatient (IN) | payer OTHER, SELFPAY ==
[2023-11-09] VITALS (26 sets, daily range): BP systolic 89–132; BP diastolic 49–82; PULSE 75–98; TEMP 36.4–36.8; O2SAT 97–99
[2023-11-09 14:26] LABS: Bilirubin Urine NEGATIVE (NEGATIVE); Blood Urine NEGATIVE (NEGATIVE); Clarity Urine CLEAR (CLEAR); Color Urine LT. YELLOW (YELLOW); Glucose Urine UA NEGATIVE (NEGATIVE); Ketones Urine NEGATIVE (NEGATIVE); Leukocyte Esterase Urine NEGATIVE (NEGATIVE); Nitrite Urine NEGATIVE (NEGATIVE); Protein Urine NEGATIVE (NEG/TRACE); Specific Gravity Urine <=1.005 (1.005-1.025); Urobilinogen Urine 0.2 EU/dL (0.2-1.0)
[2023-11-09 14:28] LABS: Urine Microscopic Indicated NO
--- NOTE | 2023-11-09 14:30 | PC.NURSE ---
1340- Pt arrives to [facility] via wheelchair with s.o. Pt c/o abdomen pain from the top of her abdomen to her vaginal area since 9pm last night. Pt denies cxt's but states she feels her abdomen get hard at times. Pt states she also has vaginally pressure and states she has the feeling like she has to push at times. Pt denies vaginal bleeding or leaking of fluid. Pt denies recent intercourse. Pt denies UTI s/s or recent UTI. Pt states she was treated for yeast infection recently. Cervical exam performed; closed and thick. RN palpates pt abdomen, pt abdomen mild to palpation. Pt denies pain with palpation. Pt reports active movement.
--- OUTSIDE RECORDS SUMMARY | 2023-11-09 17:01 | XMS_ITS | CCD ---
Author Organization [facility] Care Team Providers Care Gas Welder Name Role Phone Bryce De La Garza Admitting Physician Unavailable Bryce De La Garza Attending Physician Unavailable NON, STAFF Primary Care Physician Unavailab Savage Roman Rounding Physician Unavailable FEI LOO Admitting Unavailable FEI LOO Attending Unavailable Unavailable Primary Care Provider UnavailKia Jeffrey Primary Care Provider [phone] Unavailable Primary Care Provider UnavailKia Jeffrey CNP Primary Care Provider [phone] KIA SHARMA Referring Unavailable NO FAMILY, PHYSICIAN [...] r Mariposa Duncan CNP Primary Care Provider [phone] Kia Booker APRN, CNP Primary Care Provide r Kia Booker APRN, CNP Primary Care Provide r JAGDEEP MANRIQUE Admitting Unavailable D'ABREAU, JAGDEEP Attending Unavailable EDITH, KIA Primary Care Unavailable FERNANDA VIPIN Admitting Unavailable FERNANDA, JUSTNA Attending Unavailable EDITH, KIA Primary Care Unavailable [...] Start: 05-27-2020 take 2 tablets by mo [facility] every six hours as needed [...] pain 10 tablet 0 10/14/2020 10/17/2020 Active [id number] 200 actuat albuterol 0.09 mg/actuat metered dose [...] daily 0 10/09/2020 Active Start: 03-31-2020 End: 07-28-2021 busPIRone (BUSPAR) 15 MG tab let Start: [...] Routineon 2023 Bilirubin, SemiQt,Ur Negative Normal NEG [facility] Comment on above: Performed By: #### U A #### [facility] [address] [place] [address] Second Baller: Hayden Cartagena MD Blood, Urine Negative Normal NEG [facility] Comment on above: Performed By: #### U A #### [facility] [address] [place] [address] Second Baller: Hayden Cartagena MD Clarity (U) Clear Normal CLEAR [facility] Comment on above: Performed By: #### U A #### [facility] [address] [place] [address] Dr. [place], [facility]83 Second Baller: Hayden Cartagena MD Color (U) Yellow Normal YEL [facility] Comment on above: Performed By: #### U A #### [facility] [address] [place] [address] Dr. [place], [facility]83 Second Baller: Hayden Cartagena MD Glucose Ql (U) Negative Normal NEG [facility] in Hospital Comment on above: Performed By: #### U A #### [facility] [address] [place] [address] Dr. [place], [facility]83 Second Baller: Hayden Cartagena MD Ketones Ql (U) Negative Normal NEG [facility] in Hospital Comment on above: Performed By: #### U A #### [facility] [address] [place] [address] Dr. [place], [facility]83 Second Baller: Hayden Cartagena MD Leukocyte esterase Test strip Ql (U) Negative Normal NEG [facility] Comment on above: Performed By: #### U A #### [address] [place], [facility]83 Second Baller: Hayden Cartagena MD Nitrite,Ur Negative Normal NEG [facility] Comment on above: Performed By: #### U A #### [facility] [address] [place] [address] Dr. [place], [facility]83 Second Baller: Hayden Cartagena MD PH,Ur 6.0 Normal 5.0-9.0 [facility] Comment on above: Performed By: #### U A #### [address] [place] [address] Second Baller: Hayden Cartagena MD Protein Ql (U) Negative Normal NEG [facility] in Hospital Comment on above: Performed By: #### U A #### [facility] [address] [place] [address] Dr. [place], [place] [phone] Second Baller: Hayden Cartagena MD Spec. [place],Ur 1.020 Normal 1.010-1.020 [facility] Comment on above: Performed By: #### U A #### [facility] [address] [place], [place] [id number] Second Baller: Hayden Cartagena MD Urobilinogen,Ur Normal Normal 0.0-1.0 [facility] Comment on above: Performed By: #### U A #### [facility] [address] [place] [address] Second Baller: Hayden Cartagena MD Urinalysison 09-12-2023 Bilirubin Ql (U) Negative NEGATIVE [facility] Clarity (U) Clear Clear [facility] Color (U) Yellow Yellow [facility] Glucose Test strip (U) [Mass/Vol] Negative NEGATIVE mg/dL [facility] Hemoglobin Auto test strip Ql (U) Negative NEGATIVE [facility] Interpretation and review of laboratory results Abnormal [facility] Ketones (U) [Mass/Vol] Negative NEGAT [place] mg/dL [facility] Leukocyte esterase Test strip Ql (U) Negative NEGATIVE [facility] Nitrite Ql (U) Negative NEGATIVE [facility] pH (U) 6.0 [pH] 5.0 - 9.0 [facility] Protein (U) [Mass/Vol] Negative NEGAT [place] mg/dL [facility] Specific gravity (U) [Rel density] Low 1.010 - 1.020 [facility] Urobilinogen Qn (U) Normal 0.0 - 1. 0 EU/dL [facility] Urinalysis, Routineon 2023 Bilirubin, SemiQt,Ur Negative Normal NEG [facility] Comment on above: Performed By: #### U A #### [facility] [address] [place] [address] Second Baller: Hayden Cartagena MD Blood, Urine Negative Normal NEG [facility] Comment on above: Performed By: #### U A #### [facility] [address] [place] [address] Dr. [place], [facility]83 Second Baller: Hayden Cartagena MD Clarity (U) Clear Normal CLEAR [facility] Comment on above: Performed By: #### U A #### [facility] [address] [place] [address] Dr. [place], [facility]83 Second Baller: Hayden Cartagena MD Color (U) Yellow Normal YEL [facility] Comment on above: Performed By: #### U A #### [address] [place] [id number] Second Baller: Hayden Cartagena MD Glucose Ql (U) Negative Normal NEG [facility] in [facility] Comment on above: Performed By: #### U A #### [address] [place], [facility]83 Second Baller: Hayden Cartagena MD Ketones Ql (U) Negative Normal NEG [facility] Comment on above: Performed By: #### U A #### [address] [place], [facility]83 Second Baller: Hayden Cartagena MD Leukocyte esterase Test strip Ql (U) Negative Normal NEG [facility] Comment on above: Performed By: #### U A #### [facility] [address] [place] [address] Dr. [place], [facility]83 Second Baller: Hayden Cartagena MD Nitrite,Ur Negative Normal NEG [facility] Comment on above: Performed By: #### U A #### [address] [place] [address] Second Baller: Hayden Cartagena MD PH,Ur 6.0 Normal 5.0-9.0 [facility] Comment on above: Performed By: #### U A #### [address] [place], [place] [phone] Second Baller: Hayden Cartagena MD Protein Ql (U) Negative Normal NEG [facility] Comment on above: Performed By: #### U A #### [facility] [address] [place] [address] Dr. [place], [place] [phone] Second Baller: Hayden Cartagena MD Spec. [place],Ur <1.005 Low 1.010-1.020 [facility] Comment on above: Performed By: #### U A #### [facility] [address] [place] [address] [place] [address] Second Baller: Hayden Cartagena MD Urobilinogen,Ur Normal Normal 0.0-1.0 [facility] Comment on above: Performed By: #### U A #### [facility] [address] [place] [address] Dr. [place], [place] [phone] Second Baller: Hayden Cartagena MD Glucose, Whole Bloodon 09-03 Glucose [Mass/Vol] 160 mg/dL High 74-100 [facility] Urinalysis, Routineon 2023 Bilirubin, SemiQt,Ur Negative Normal NEG [facility] Comment on above: Performed By: #### U MICAO, UA #### [facility] [address] [place] [address] Dr. [place], [place] [phone] Second Baller: Hayden Cartagena MD Blood, Urine Negative Normal NEG [facility] Comment on above: Performed By: #### U MICAO, UA #### [facility] [address] [place] [address] Dr. [place], [place] [phone] Second Baller: Hayden Cartagena MD Clarity (U) Clear Normal CLEAR [facility] Comment on above: Performed By: #### U MICAO, UA #### [facility] [address] [place] [address] Dr. [place], [place] [phone] Second Baller: Hayden Cartagena MD Color (U) Yellow Normal YEL [facility] Comment on above: Performed By: #### U MICAO, UA #### [facility] [address] [place], [place] 9154483 Second Baller: Hayden Cartagena MD Glucose Ql (U) 1+ mg/dL Abnormal NEG [facility] in [facility] Comment on above: Performed By: #### U MICAO, UA #### [facility] [address] [place] [address] Dr. [place], [place] [phone] Second Baller: Hayden Cartagena MD Ketones Ql (U) Negative Normal NEG [facility] in Hospital Comment on above: Performed By: #### U MICAO, UA #### [address] [place], [place] 0670283 Second Baller: Hayden Cartagena MD Leukocyte esterase Test strip Ql (U) Negative Normal NEG [facility] Comment on above: Performed By: #### U MICAO, UA #### [facility] [address] [place] [address] Dr. [place], [place] [phone] Second Baller: Hayden Cartagena MD Nitrite,Ur Negative Normal NEG [facility] Comment on above: Performed By: #### U MICAO, UA #### [facility] [address] [place] [address] Dr. [place], [place] [phone] Second Baller: Hayden Cartagena MD PH,Ur 6.0 Normal 5.0-9.0 [facility] Comment on above: Performed By: #### U MICAO, UA #### [facility] [address] [place] [address] Dr. [place], [place] [phone] Second Baller: Hayden Cartagena MD Protein Ql (U) Negative Normal NEG [facility] in [facility] Comment on above: Performed By: #### U MICAO, UA #### [facility] [address] [place] [address] Dr. [place], [place] 8909983 Second Baller: Hayden Cartagena MD Spec. [place],Ur <1.005 Low 1.010-1.020 [facility] Comment on above: Performed By: #### U MICAO, UA #### [facility] [address] [place], [place] 2195983 Second Baller: Hayden Cartagena MD Urobilinogen,Ur Normal Normal 0.0-1.0 [facility] Comment on above: Performed By: #### U MICAO, UA #### [facility] [address] [place], [place] [phone] Second Baller: Hayden Cartagena MD Urinalysis,Microon Bacteria TRACE Abnormal NONE [facility] Comment on above: Performed By: #### U MICAO, UA #### [facility] [address] [place], [place] [phone] Second Baller: Hayden Cartagena MD Epithelial cells LM Ql (Urine sed) 5 TO 10 Normal 0-25 [facility] Comment on above: Performed By: #### U MICAO, UA #### [facility] [address] [place], [place] 2972483 Second Baller: Hayden Cartagena MD Urine RBC's None Normal 0-2 [facility] Comment on above: Performed By: #### U MICAO, UA #### [facility] [address] [place], [place] 4873283 Second Baller: Hayden Cartagena MD Urine WBC's None Normal 0-5 [facility] Comment on above: Performed By: #### U MICAO, UA #### [facility] [address] [place], [place] 3804883 Second Baller: Hayden Cartagena MD Urinalysis, Routineon 2023 Bilirubin, SemiQt,Ur Negative Normal NEG [facility] Comment on above: Performed By: #### U A #### [facility] [address] [place], [place] 0145783 Second Baller: Hayden Cartagena MD Blood, Urine Negative Normal NEG [facility] Comment on above: Performed By: #### U A #### [facility] [address] [place] [address] Dr. [place], [facility]83 Second Baller: Hayden Caratgena MD Clarity (U) Clear Normal CLEAR [facility] Comment on above: Performed By: #### U A #### [facility] [address] [place] [address] Dr. [place], [facility]83 Second Baller: Hayden Cartagena MD Color (U) Yellow Normal YEL [facility] Comment on above: Performed By: #### U A #### [address] [place] [phone] Second Baller: Hayden Cartagena MD Glucose Ql (U) Negative Normal NEG [facility] in [facility] Comment on above: Performed By: #### U A #### [address] [place], [facility]83 Second Baller: Hayden Cartagena MD Ketones Ql (U) Negative Normal NEG [facility] in [facility] Comment on above: Performed By: #### U A #### [address] [place] [phone] Second Baller: Hayden Cartagena MD Leukocyte esterase Test strip Ql (U) Negative Normal NEG [facility] Comment on above: Performed By: #### U A #### [address] [place], [facility]83 Second Baller: Hayden Cartagena MD Nitrite,Ur Negative Normal NEG [facility] Comment on above: Performed By: #### U A #### [address] [place] [address] Second Baller: Hayden Cartagena MD PH,Ur 6.0 Normal 5.0-9.0 [facility] Comment on above: Performed By: #### U A #### [address] [place] [phone] Second Baller: Hayden Cartagena MD Protein Ql (U) Negative Normal NEG [facility] in Hospital Comment on above: Performed By: #### U A #### [facility] [address] [place], [place] 559[address]83 Second Baller: Hayden Cartagena MD Spec. [place],Ur <1.005 Low 1.010-1.020 [facility] Comment on above: Performed By: #### U A #### [facility] [address] [place], [place] 3298083 Second Baller: Hayden Cartagena MD Urobilinogen,Ur Normal Normal 0.0-1.0 [facility] Comment on above: Performed By: #### U A #### [facility] [address] [place], [place] 6493083 Second Baller: Hayden Cartagena MD Microscopic Urinalysison Bacteria LM Ql (Urine sed) 1+ Abnormal None [facility] Epithelial cells LM.HPF (Urine sed) [#/Area] 0 TO 2 [facility] Interpretation and review of laboratory results Abnormal [facility] RBC LM.HPF (Urine sed) [#/Area] None [facility] WBC LM.HPF (Urine sed) [#/Area] None [facility] Urinalysison 08-24-2023 Bilirubin Ql (U) Negative NEGATIVE [facility] Clarity (U) Clear Clear [facility] Color (U) Yellow Yellow [facility] Glucose Test strip (U) [Mass/Vol] 1+ Abnormal NEGATIVE mg/dL [facility] Hemoglobin Auto test strip Ql (U) Negative NEGATIVE [facility] Interpretation and review of laboratory results Abnormal [facility] Ketones (U) [Mass/Vol] Negative NEGAT [place] mg/dL [facility] Leukocyte esterase Test strip Ql (U) Negative NEGATIVE [facility] Nitrite Ql (U) Negative NEGATIVE [facility] pH (U) 6.0 [pH] 5.0 - 9.0 [facility] Protein (U) [Mass/Vol] Negative NEGAT [place] mg/dL [facility] Specific gravity (U) [Rel density] Low 1.010 - 1.020 [facility] Urobilinogen Qn (U) Normal 0.0 - 1. 0 EU/dL [facility] Urinalysis, Routineon 2023 Bilirubin, SemiQt,Ur Negative Normal NEG [facility] Comment on above: Performed By: #### U RC #### [address] [address] Second Baller: Claude Gonzalez MD [address] [place] [address] Second Baller: Hayden Cartagena MD Blood, Urine Negative Normal [facility] Comment on above: Performed By: #### U RC #### [address] [address] Second Baller: Claude Gonzalez MD [address] [place] [phone] Second Baller: Hayden Cartagena MD Clarity (U) Clear Normal CLEAR [facility] Comment on above: Performed By: #### U RC #### [address] [address] Second Baller: Claude Gonzalez MD [address] [place] [phone] Second Baller: Hayden Cartagena MD Color (U) Yellow Normal YEL [facility] Comment on above: Performed By: #### U RC #### [address] [address] Second Baller: Claude Gonzalez MD [facility] [address] [place] [address] [place] [address] Second Baller: Hayden Cartagena MD Glucose Ql (U) 1+ mg/dL Abnormal NEG [facility] Comment on above: Performed By: #### U RC #### [facility] [place] [address] Second Baller: Claude Gonzalez MD [facility] [address] [place] [address] [place] [address] Second Baller: Hayden Cartagena MD Ketones Ql (U) Negative Normal NEG [facility] Comment on above: Performed By: #### U RC #### [address] [address] Second Baller: Claude Gonzalez MD [facility] [address] [place] [address] Dr[place] [phone] Second Baller: Hayden Cartagena MD Leukocyte esterase Test strip Ql (U) Negative Normal NEG [facility] Comment on above: Performed By: #### U RC #### [address] [address] Second Baller: Claude Gonzalez MD [facility] [address] [place] [address] [place] [address] Second Baller: Hyaden Cartagena MD Nitrite,Ur Negative Normal [facility] Comment on above: Performed By: #### U RC #### [address] [address] Second Baller: Claude Gonzalez MD [facility] [address] [place] [address] Dr. [place] [phone] Second Baller: Hayden Cartagena MD PH,Ur 6.0 Normal 5.0-9.0 [facility] Comment on above: Performed By: #### U RC #### [address] [address] Second Baller: Claude Gonzalez MD [facility] [address] [place] [address] Dr. [place] [phone] Second Baller: Hayden Cartagena MD Protein Ql (U) Negative Normal NEG [facility] Comment on above: Performed By: #### U RC #### [place] [address] [place] [address] Second Baller: Claude Gonzalez MD [facility] [address] [place] [address] Dr. [place] 3601983 Second Baller: Hayden Cartagena MD Spec. [place],Ur <1.005 Low 1.010-1.020 [facility] Comment on above: Performed By: #### U RC #### [address] [address] Second Baller: Claude Gonzalez MD [address] [place] [phone] Second Baller: Hayden Cartagena MD Urobilinogen,Ur Normal Normal 0.0-1.0 [facility] Comment on above: Performed By: #### U RC #### [address] [address] Second Baller: Claude Gonzalez MD [address] [place] [phone] Second Baller: Hayden Cartagena MD Urinalysis,Microon 4 Bacteria 1+ Abnormal NONE [facility] Comment on above: Performed By: #### U RC #### [address] [address] Second Baller: Claude Gonzalez MD [facility] [address] [place] [address] [place] [address] Second Baller: Hayden Cartagena MD Epithelial cells LM Ql (Urine sed) 0 TO 2 Normal 0-25 [facility] Comment on above: Performed By: #### U RC #### [address] [address] Second Baller: Claude Gonzalez MD [address] [place] [phone] Second Baller: Hayden Cartagena MD Urine RBC's None Normal 0-2 [facility] Comment on above: Performed By: #### U RC #### [facility] [address] [place] [address] Second Baller: Claude Gonzalez MD [facility] [address] [place] [address] Dr. [place], [place] 0744583 Second Baller: Hayden Cartagena MD Urine WBC's None Normal 0-5 [facility] Comment on above: Performed By: #### U RC #### [facility] [address] [place] [address] Second Baller: Claude Gonzalez MD [address] [place] [phone] Second Baller: Hayden Cartagena MD Cult,Urineon 07-01-2023 Cult,Urine Specimen Description .CLEAN CATCH URINE Culture NO SIGNIFICANT GROWTH Report Status FINAL 07/01/2023 Normal [facility] Comment on above: Performed By: #### U RC #### [facility] [address] [place] [address] Second Baller: Claude Gonzalez MD [address] [place], [place] [phone] Second Baller: Hayden Cartagena MD Urinalysis w/ Microon 2023 Bilirubin, SemiQt,Ur Negative Normal NEG [facility] Comment on above: Performed By: #### U AMIC #### [facility] [address] [place] [address] Dr. [place], [place] 105[address] Second Baller: Hayden Cartagena MD Blood, Urine Negative Normal NEG [facility] Comment on above: Performed By: #### U AMIC #### [facility] [address] [place] [address] [place], [place] 6507983 Second Baller: Hayden Cartagena MD Clarity (U) Clear Normal CLEAR [facility] Comment on above: Performed By: #### U AMIC #### [facility] [address] [place] [address] Dr. [place], [place] [phone] Second Baller: Hayden Cartagena MD Color (U) Yellow Normal YEL [facility] Comment on above: Performed By: #### U AMIC #### [facility] [address] [place] [address] Dr. [place], [place] [phone] Second Baller: Hayden Cartagena MD Epithelial cells LM Ql (Urine sed) 2 TO 5 Normal 0-25 [facility] Comment on above: Performed By: #### U AMIC #### [facility] [address] [place] [address] Dr. [place], [place] [phone] Second Baller: Hayden Cartagena MD Glucose Ql (U) Negative Normal NEG [facility] in Hospital Comment on above: Performed By: #### U AMIC #### [facility] [address] [place] [address] Dr. [place], [place] [phone] Second Baller: Hayden Cartagena MD Ketones Ql (U) Negative Normal NEG [facility] in Hospital Comment on above: Performed By: #### U AMIC #### [address] [place], [place] [id number] Second Baller: Hayden Cartagena MD Leukocyte esterase Test strip Ql (U) Negative Normal NEG [facility] Comment on above: Performed By: #### U AMIC #### [facility] [address] [place] [address] Dr[address] [place], [place] [phone] Second Baller: Hayden Cartagena MD Nitrite,Ur Negative Normal NEG [facility] Comment on above: Performed By: #### U AMIC #### [address] [place] [address] Second Baller: Hayden Cartagena MD PH,Ur 6.0 Normal 5.0-9.0 [facility] Comment on above: Performed By: #### U AMIC #### [facility] [address] [place] [address] Dr. [place], [place] [phone] Second Baller: Hayden Cartagena MD Protein Ql (U) Negative Normal NEG [facility] Comment on above: Performed By: #### U AMIC #### [facility] [address] [place] [phone] Second Baller: Hayden Cartagena MD Spec. [place],Ur 1.010 Normal 1.010-1.020 [facility] Comment on above: Performed By: #### U AMIC #### [facility] [address] [place] [address] Second Baller: Hayden Cartagena MD Urine RBC's None Normal 0-2 [facility] Comment on above: Performed By: #### U AMIC #### [address] [place] [phone] Second Baller: Hayden Cartagena MD Urine WBC's None Normal 0-5 [facility] Comment on above: Performed By: #### U AMIC #### [facility] [address] [place] [address] Dr. [place], [place] [phone] Second Baller: Hayden Cartagena MD Urobilinogen,Ur Normal Normal 0.0-1.0 [facility] Comment on above: Performed By: #### U AMIC #### [facility] [address] [place] [address] Dr. [place] [id number] Second Baller: Hayden Cartagena MD Cult,Urineon 05-03-2023 Cult,Urine Specimen [...] Tobramycin <=1 SUSCEPTIBLE Trimethoprim/Sulfa <=20 SUSCEPTIBLE Susceptible [facility] Comment on above: Performed By: #### U RC #### [address] [place] [address] Second Baller: Claude Gonzalez MD [address] [place] [address] Second Baller: Hayden Cartagena MD HIV Ag/Abon 05-02-2023 HIV Ag/Ab Non-Reactive Normal [facility] Comment on above: Result Comment: No l aboratory evidence of HIV infection. If acute HIV infection is suspected, consider testing for HIV-1 RNA. Performed By: #### U RC #### [address] [address] Second Baller: Claude Gonzalez MD [address] [place] [address] Second Baller: Hayden Cartagena MD T.pallidum Ab Screenon 05-01 T.pallidum Ab Screen Non-Reactive Normal NR [facility] Comment on above: Result Comment: T. pallidum antibodies are not detected. There is no serological evidence of infection with T. pallidum (early primary syphilis cannot be excluded). Retest in 2-4 weeks if syphilis is clinically suspect. Performed By: #### U RC #### [address] [address] Second Baller: Claude Gonzalez MD [address] [place] [address] Second Baller: Hayden Cartagena MD CBC with Auto Differentialon 05-01-2023 Basophils (Bld) [#/Vol] 0.03 10*3/uL [facility] Basophils/100 WBC (Bld) 0 % 0 - 2 % B ON [facility] Eosinophils (Bld) [#/Vol] [facility] Eosinophils/100 WBC (Bld) 0 % Low 1 - 4 % [facility] Erythrocyte distribution width (RBC) [Ratio] 12.2 % 11.8 - 14.4 % [facility] Hematocrit (Bld) [Volume fraction] 36.2 % Low 36.3 - 47.1 % [facility] Hemoglobin (Bld) [Mass/Vol] 12.1 g/dL 11.9 - 15.1 g/dL [facility] Immature granulocytes (Bld) [#/Vol] [facility] Immature granulocytes/100 WBC (Bld) 0 % 0 [facility] Interpretation and review of laboratory results Abnormal [facility] Lymphocytes/100 WBC (Bld) 19 % Low 24 - 43 % [facility] Lymphocytes/100 WBC (Bld) 1.62 % [facility] MCH (RBC) [Entitic mass] 32.1 pg 25.2 - 33.5 pg [facility] MCHC (RBC) [Mass/Vol] 33.4 g/dL 28.4 - 34.8 g/dL [facility] MCV (RBC) [Entitic vol] 96.0 fL 82.6 - 102.9 fL [facility] Monocytes/100 WBC (Bld) 6 % 3 - 12 % [facility] Monocytes/100 WBC (Bld) 0.51 % [facility] Neutrophils/100 WBC (Bld) 75 % High 36 - 65 % [facility] Nucleated RBC/100 WBC (Bld) [Ratio] 0.0 % 0.0 per 100 WBC [facility] Platelet mean volume (Bld) [Entitic vol] 10.3 fL 8.1 - 13.5 fL [facility] Platelets (Bld) [#/Vol] 201 10*3/uL [facility] RBC (Bld) [#/Vol] 3.77 10*6/uL Low 3.95 - 5.1 1 m/uL [facility] Segmented neutrophils/100 WBC (Bld) 6.24 % [facility] WBC other (Bld) [#/Vol] 8.4 [facility] CBC with Diffon 05-01-2023 Abs. Basophil 0.03 k/uL Normal 0.00-0.20 [facility] Comment on above: Performed By: #### C DP #### [address] [place] [address] Second Baller: Hayden Cartagena MD #### LISA, HIVCMB, AHCV, TREP, GLYHGB, HBS #### [place] [phone] Second Baller: Claude Gonzalez MD Abs. Eosinophil <0.03 Normal 0.00-0.44 [facility] Comment on above: Performed By: #### C DP #### [address] [place] [phone] Second Baller: Hayden Cartagena MD #### LISA, HIVCMB, AHCV, TREP, GLYHGB, HBS #### [place] [address] Second Baller: Claude Gonzalez MD Abs.Imm.Granulocyte <0.03 Normal 0.00-0.30 [facility] Comment on above: Performed By: #### C DP #### [address] [place] [phone] Second Baller: Hayden Cartagena MD #### LISA, HIVCMB, AHCV, TREP, GLYHGB, HBS #### [place] [address] Second Baller: Claude Gonzalez MD Abs.Neutrophil (Seg) 6.24 k/uL Normal 1.50-8.10 [facility] Comment on above: Performed By: #### C DP #### [address] [place] [phone] Second Baller: Hayden Cartagena MD #### LISA, HIVCMB, AHCV, TREP, GLYHGB, HBS #### [address] [address] [place] [address] Second Baller: Claude Gonzalez MD Basophils/100 WBC (Bld) 0 % Normal 0-2 M [facility] Comment on above: Performed By: #### C DP #### [facility] [address] [place] [address] Dr. [place] [phone] Second Baller: Hayden Cartagena MD #### LISA, HIVCMB, AHCV, TREP, GLYHGB, HBS #### [address] [phone] Second Baller: Claude Gonzalez MD Eosinophils/100 WBC (Bld) 0 % Low 1-4 [facility] Comment on above: Performed By: #### C DP #### [address] [place] [phone] Second Baller: Hayden Cartagena MD #### LISA, HIVCMB, AHCV, TREP, GLYHGB, HBS #### [address] [phone] Second Baller: Claude Gonzalez MD Erythrocyte distribution width (RBC) [Ratio] 12.2 % Normal 11.8-14.4 [facility] Comment on above: Performed By: #### C DP #### [facility] [address] [place] [address] Dr. [place] [phone] Second Baller: Hayden Cartagena MD #### LISA, HIVCMB, AHCV, TREP, GLYHGB, HBS #### [address] [phone] Second Baller: Claude Gonzalez MD Hematocrit (Bld) [Volume fraction] 36.2 % Low 36.3-47.1 [facility] Comment on above: Performed By: #### C DP #### [facility] [address] [place] [address] Dr. [place] [phone] Second Baller: Hayden Cartagena MD #### LISA, HIVCMB, AHCV, TREP, GLYHGB, HBS #### [address] [address] Second Baller: Claude Gonzalez MD Hemoglobin (Bld) [Mass/Vol] 12.1 g/dL Normal 11.9-15.1 [facility] Comment on above: Performed By: #### C DP #### [address] [place] [address] Second Baller: Hayden Cartagena MD #### LISA, HIVCMB, AHCV, TREP, GLYHGB, HBS #### [place] [address] Second Baller: Claude Gonzalez MD Immature granulocytes/100 WBC (Bld) 0 % Normal 0 [facility] Comment on above: Performed By: #### C DP #### [address] [place] [phone] Second Baller: Hayden Cartagena MD #### LISA, HIVCMB, AHCV, TREP, GLYHGB, HBS #### [place] [address] Second Baller: Claude Gonzalez MD Lymphocytes (Bld) [#/Vol] 1.62 10*3/uL Normal 1.10-3.70 [facility] Comment on above: Performed By: #### C DP #### [address] [place] [phone] Second Baller: Hayden Cartagena MD #### LISA, HIVCMB, AHCV, TREP, GLYHGB, HBS #### [address] [phone] Second Baller: Claude Gonzalez MD Lymphocytes/100 WBC (Bld) 19 % Low 24-43 [facility] Comment on above: Performed By: #### C DP #### [address] [place], [place] [phone] Second Baller: Hayden Cartagena MD #### LISA, HIVCMB, AHCV, TREP, GLYHGB, HBS #### [address] [phone] Second Baller: Claude Gonzalez MD MCH (RBC) [Entitic mass] 32.1 pg Normal 25.2-33.5 [facility] Comment on above: Performed By: #### C DP #### [address] [place] [address] Second Baller: Hayden Cartagena MD #### LISA, HIVCMB, AHCV, TREP, GLYHGB, HBS #### [address] [phone] Second Baller: Claude Gonzalez MD MCHC (RBC) [Mass/Vol] 33.4 g/dL Normal 28.4-34.8 [facility] Comment on above: Performed By: #### C DP #### [address] [place] [address] Second Baller: Hayden Cartagena MD #### LISA, HIVCMB, AHCV, TREP, GLYHGB, HBS #### [address] [address] Second Baller: Claude Gonzalez MD MCV (RBC) [Entitic vol] 96.0 fL Normal 82.6-102.9 M [facility] Comment on above: Performed By: #### C DP #### [address] [place] [address] Second Baller: Hayden Cartagena MD #### LISA, HIVCMB, AHCV, TREP, GLYHGB, HBS #### [address] [phone] Second Baller: Claude Gonzalez MD Monocytes (Bld) [#/Vol] 0.51 10*3/uL Normal 0.10-1.20 [facility] Comment on above: Performed By: #### C DP #### [facility] [address] [place] [address] Dr[address] [place], [place] [phone] Second Baller: Hayden Cartagena MD #### LISA, HIVCMB, AHCV, TREP, GLYHGB, HBS #### [address] [phone] Second Baller: Claude Gonzalez MD Monocytes/100 WBC (Bld) 6 % Normal 3-12 [facility] Comment on above: Performed By: #### C DP #### [facility] [address] [place] [address] Dr. [place] [phone] Second Baller: Hayden Cartagena MD #### LISA, HIVCMB, AHCV, TREP, GLYHGB, HBS #### [address] [phone] Second Baller: Claude Gonzalez MD Neutrophil (Seg) 75 % High 36-65 [facility] Comment on above: Performed By: #### C DP #### [facility] [address] [place] [address] Dr. [place] [phone] Second Baller: Hayden Cartagena MD #### LISA, HIVCMB, AHCV, TREP, GLYHGB, HBS #### [address] [phone] Second Baller: Claude Gonzalez MD NRBC Automated 0.0 per 100 WBC Normal 0.0 [facility] Comment on above: Performed By: #### C DP #### [facility] [address] [place] [address] [place] [address] Second Baller: Hayden Cartagena MD #### LISA, HIVCMB, AHCV, TREP, GLYHGB, HBS #### [address] [phone] Second Baller: Claude Gonzalez MD Platelet mean volume (Bld) [Entitic vol] 10.3 fL Normal 8.1-13.5 [facility] Comment on above: Performed By: #### C DP #### [address] [place] [phone] ( Second Baller: Hayden Cartagena MD #### LISA, HIVCMB, AHCV, TREP, GLYHGB, HBS #### [place] [address] Second Baller: Claude Gonzalez MD Platelets (Bld) [#/Vol] 201 10*3/uL Normal 138-453 [facility] Comment on above: Performed By: #### C DP #### [address] [place] [phone] ( Second Baller: Hayden Cartagena MD #### LISA, HIVCMB, AHCV, TREP, GLYHGB, HBS #### [place] [address] Second Baller: Claude Gonzalez MD RBC (Bld) [#/Vol] 3.77 10*6/uL Low 3.95-5.11 [facility] Comment on above: Performed By: #### C DP #### [address] [place] [address] Second Baller: Hayden Cartagena MD #### LISA, HIVCMB, AHCV, TREP, GLYHGB, HBS #### [place] [address] Second Baller: Claude Gonzalez MD WBC (Bld) [#/Vol] 8.4 10*3/uL Normal 3.5-11.3 [facility] Comment on above: Performed By: #### C DP #### [address] [place], [place] [phone] Second Baller: Hayden Cartagena MD #### LISA, HIVCMB, AHCV, TREP, GLYHGB, HBS #### [address] [place] [address] Second Baller: Claude Gonzalez MD Hemoglobin A1Con 05-01-2023 Average glucose Estimated from glycated hemoglobin (Bld) [Mass/Vol] 85 mg/dL [facility] Comment on above: The ADA and AACC rec ommend providing the estimated average glucose result to permit better patient understanding of their HBA1c result. HbA1c (Bld) [Mass fraction] 4.6 % 4.0 - 6.0 % [facility] Glucose [Mass/Vol] 85 mg/dL Normal [facility] Comment on above: Result Comment: The ADA and AACC recommend providing the estimated average glucose result to permit better patient understanding of their HBA1c result. Performed By: #### U RC #### [address] [address] Second Baller: Claude Gonzalez MD [address] [place], [place] [phone] Second Baller: Hayden Cartagena MD HbA1c (Bld) [Mass fraction] 4.6 % Normal 4.0-6.0 [facility] Comment on above: Performed By: #### U RC #### [address] [address] Second Baller: Claude Gonzalez MD [address] [place] [address] Second Baller: Hayden Cartagena MD Hep B Surf Agon 05-01-2023 Hep B Surf Ag Non-Reactive Normal NR [facility] Comment on above: Performed By: #### U RC #### [address] [address] Second Baller: Claude Gonzalez MD [facility] [address] [place] [address] Second Baller: Hayden Cartagena MD Hep C Abon 05-01-2023 Hep C Ab Non-Reactive Normal NR [facility] Comment on above: Result Comment: [...] PCR. Performed By: #### C DP #### [facility] [address] [place] [address] Second Baller: Hayden Cartagena MD #### LISA, HIVCMB, AHCV, TREP, GLYHGB, HBS #### [facility] [address] [place] [address] Second Baller: Claude Gonzalez MD Hepatitis B Surface Antigeno n 05-01-2023 HBV surface Ag IA Ql Non-Reactive NONREACTIVE B [facility] Hepatitis C Antibodyon 04-30 HCV Ab IA Ql Non-Reactive [facility]ACTIVE [facility] Comment on above: The hepatitis C [...] RNA by PCR. No Panel Informationon 04-30 [facility] Rubella Ab, IgGon 05-01-2023 Rubella Ab, IgG >500.0 Normal [facility] Comment on above: Result Comment: REFERENCE RANGE: <5.0 NON-REACTIVE (non-immune) 5.0 TO 9.9 EQUIVOCAL >=10.0 REACTIVE (immune) Performed By: #### U RC #### [facility] [address] [place] [address] Second Baller: Claude Gonzalez MD [facility] [address] [place] [address] Second Baller: Hayden Cartagena MD Rubella antibody, IgGon Rubella virus IgG IA Ql IU/mL B ON [facility] Comment on above: REFERENCE RANGE: <5.0 NON-REACTIVE (non-immune) 5.0 TO 9.9 EQUIVOCAL >=10.0 REACTIVE (immune) [facility] TYPE AND SCREENon 05-01-2023 ABO and Rh group Nom (Bld) Blood group O Rh(D) negative [facility] Blood Bank Sample Expiration 05/04/2023,2359 [facility] Blood group antibodies identified Nom Negative [facility] Type + Screenon 05-01-2023 Type + Screen Sample Expiration 05/04/2023,2359 ABO/Rh(D) O NEGATIVE Antibody Screen NEGATIVE Normal [facility] Comment on above: Performed By: #### T YS #### [facility] [address] [place], [place] [phone] Second Baller: Hayden Cartagena MD CBC with Auto Differentialon 08-03-2022 Basophils (Bld) [#/Vol] 0.04 10*3/uL [facility] Basophils/100 WBC (Bld) 0 % 0 - 2 % B ON [facility] Eosinophils (Bld) [#/Vol] [facility] Eosinophils/100 WBC (Bld) 0 % Low 1 - 4 % [facility] Erythrocyte distribution width (RBC) [Ratio] 12.2 % 11.8 - 14.4 % [facility] Hematocrit (Bld) [Volume fraction] 39.4 % 36.3 - 47.1 % [facility] Hemoglobin (Bld) [Mass/Vol] 13.2 g/dL 11.9 - 15.1 g/dL [facility] Immature granulocytes (Bld) [#/Vol] [facility] Immature granulocytes/100 WBC (Bld) 0 % 0 [facility] Interpretation and review of laboratory results Abnormal [facility] Lymphocytes/100 WBC (Bld) 17 % Low 24 - 43 % [facility] Lymphocytes/100 WBC (Bld) 1.86 % [facility] MCH (RBC) [Entitic mass] 32.1 pg 25.2 - 33.5 pg [facility] MCHC (RBC) [Mass/Vol] 33.5 g/dL 28.4 - 34.8 g/dL [facility] MCV (RBC) [Entitic vol] 95.9 fL 82.6 - 102.9 fL [facility] Monocytes/100 WBC (Bld) 4 % 3 - 12 % B ON [facility] Monocytes/100 WBC (Bld) 0.42 % B ON [facility] Neutrophils/100 WBC (Bld) 79 % High 36 - 65 % [facility] NRBC Automated 0.0 0.0 per 100 WBC [facility] Platelet mean volume (Bld) [Entitic vol] 10.5 fL 8.1 - 13.5 fL [facility] Platelets (Bld) [#/Vol] 213 10*3/uL [facility] RBC (Bld) [#/Vol] 4.11 10*6/uL 3.95 - 5.1 1 m/uL [facility] Segmented neutrophils/100 WBC (Bld) 8.49 % High [facility] WBC other (Bld) [#/Vol] 10.8 B ON [facility] CMPon 08-03-2022 Albumin [Mass/Vol] 4.6 g/dL 3.5 - 5.2 g/dL [facility] Albumin/Globulin [Mass ratio] 1.5 {ratio} 1.0 - 2.5 [facility] ALP [Catalytic activity/Vol] 79 U/L 35 - 104 U/L [facility] ALT [Catalytic activity/Vol] 9 U/L 5 - 33 U/L [facility] Anion gap [Moles/Vol] 11 mmol/L 9 - 17 mmol/L [facility] AST [Catalytic activity/Vol] 13 U/L NINF - 32 U/L [facility] Bilirubin [Mass/Vol] 1.1 mg/dL 0.3 - 1 .2 mg/dL [facility] Calcium [Mass/Vol] 10.0 mg/dL 8.6 - 10. 4 mg/dL [facility] Chloride [Moles/Vol] 104 mmol/L 98 - 10 7 mmol/L [facility] CO2 [Moles/Vol] 26 mmol/L 20 - 31 mmol/L [facility] Creatinine [Mass/Vol] 0.68 mg/dL 0.50 - 0.90 mg/dL [facility] GFR/1.73 sq M.predicted MDRD (S/P/Bld) [Vol rate/Area] - PINF [facility] Comment on above: These results are not [...] [Mass/Vol] 90 mg/dL 70 - 99 mg/dL [facility] Interpretation and review of laboratory results Abnormal [facility] Potassium [Moles/Vol] 3.4 mmol/L Low 3.7 - 5.3 mmol/L [facility] Protein [Mass/Vol] 7.7 g/dL 6.4 - 8.3 g/dL [facility] Sodium [Moles/Vol] 141 mmol/L 135 - 144 mmol/L [facility] Urea nitrogen [Mass/Vol] 6 mg/dL 6 - 20 mg/dL [facility] Urea nitrogen/Creatinine [Mass ratio] 9 mg/mg 9 - [address] [facility] [address] ABDOMEN PELVIS WO CONTRAS T [...] superficial soft tissues show no acute process. [facility] RIS CONSOLIDATED Cody Gregg MD - 08/03/2022 EXAMINATION: [...] urinary tract calculi. 3. No bowel obstruction. [employer] Work Phone: Radiology Study observation (narrative) [employer] Work Phone: CT ABDOMEN PELVIS WO CONTRAS T Additional Contrast? NoneOrdered By: Cody Gregg on 08-03-2022 [employer] Work Phone: Microscopic Urinalysison Bacteria LM Ql (Urine sed) 4+ Abnormal None [facility] [employer] Epithelial cells LM.HPF (Urine sed) [#/Area] 10 TO 20 [facility] [employer] Interpretation and review of laboratory results Abnormal [facility] RBC LM.HPF (Urine sed) [#/Area] 10 TO 20 [employer] [facility] [employer] WBC LM.HPF (Urine sed) [#/Area] 20 TO 50 [facility] [employer] [facility] [employer] Urinalysis with Reflex to Cu ltureon 08-03-2022 Bilirubin Ql (U) Negative NEGATIVE [facility] [employer] Clarity (U) Cloudy Abnormal Clear [facility] [employer] Color (U) Yellow Yellow [facility] [employer] Glucose Test strip (U) [Mass/Vol] Negative NEGATIVE [employer] [facility] Hemoglobin Auto test strip Ql (U) 3+ Abnormal NEGATIVE [facility] [employer] Interpretation and review of laboratory results Abnormal [facility] [employer] Ketones (U) [Mass/Vol] Negative NEGATIVE [facility] [employer] Leukocyte esterase Test strip Ql (U) SMALL Abnormal NEGATIVE [employer] [facility] [employer] Nitrite Ql (U) Positive Abnormal NEGATIVE [facility] pH (U) 6.0 [pH] 5.0 - 9.0 [employer] [facility] Protein (U) [Mass/Vol] 2+ Abnormal NEGATIVE [facility] [employer] [facility] Specific gravity (U) [Rel density] 1.025 High 1.010 - 1.020 [facility] Urobilinogen Qn (U) Normal Normal SARWAT S ASAD [facility] SARWAT [facility] hCG, quantitative, on 08-03-2022 hCG Quant NINF [facility] Comment on above: Non-preg premeno <=5 Postmeno <=8 Male <=3 If HCG results do not concur with clinical observations, additional testing to confirm results is recommended. SARWAT [facility] DUSTIN JASMINA DIGITAL DIAGNOSTIC BILATERALon 06-03-2022 Radiology Study observation (narrative) SARWAT [facility]ENTERVin[facility] [facility] [employer] Work Phone: No Panel Informationon 06-03 1. Negative bilateral mammogram. 2. No evidence for a discrete abscess or cellulitis in the periareolar right breast, for which clinical follow-up is recommended. BI-RADS 2 BIRADS: BIRADS - CATEGORY 2 Benign Findings. OVERALL ASSESSMENT - BENIGN A letter of notification will be sent to the patient regarding the results. The [employer] recommends annual mammograms for women 40 years and older. [facility] RIS CONSOLIDATED EXAMINATION: DIAGNOSTIC DIGITAL BILATERAL BREASTS [...] Panel InformationOrdered By: Matt Sharma on 06-03-2022 [employer] [facility]ENTERCoole[facility] [employer] Work Phone: US BREAST LIMITED RIGHTon Radiology Study observation (narrative) SARWAT HOLDERO [facility] Work Phone: CBC with Auto Differentialon 04-24-2022 Absolute Eos # [facility] virtual tweens ltd Absolute Immature Granulocyte 0.05 [facility] Absolute Lymph # 0.56 Low [facility] Absolute Butler # 0.78 [facility] virtual [employer] Basophils (Bld) [#/Vol] 0.04 10*3/uL [facility] Basophils/100 WBC (Bld) 0 % 0 - 2 % B ON [facility] Eosinophils/100 WBC (Bld) 0 % Low 1 - 4 % [facility] Hematocrit (Bld) [Volume fraction] 43.7 % 36.3 - 47.1 % [facility] Hemoglobin (Bld) [Mass/Vol] 15.6 g/dL High 11.9 - 15.1 g/dL [facility] Immature granulocytes/100 WBC (Bld) 0 % 0 [facility] Interpretation and review of laboratory results Abnormal [facility] Lymphocytes/100 WBC (Bld) 4 % Low 24 - 43 % [facility] MCH (RBC) [Entitic mass] 33.1 pg 25.2 - 33.5 pg [facility] MCHC (RBC) [Mass/Vol] 35.7 g/dL High 28.4 - 34.8 g/dL [facility] MCV (RBC) [Entitic vol] 92.8 fL 82.6 - 102.9 fL [facility] Monocytes/100 WBC (Bld) 5 % 3 - 12 % B ON [facility] NRBC Automated 0.0 0.0 per 100 WBC [facility] Platelet distribution width (Bld) [Ratio] 12.3 % 11.8 - 14.4 % [facility] Platelet mean volume (Bld) [Entitic vol] 10.5 fL 8.1 - 13.5 fL [facility] Platelets (Bld) [#/Vol] 174 10*3/uL [facility] RBC (Bld) [#/Vol] 4.71 10*6/uL 3.95 - 5.1 1 m/uL [facility] Segmented neutrophils/100 WBC (Bld) 91 % High 36 - 65 % [facility] Segs Absolute 13.82 High [facility] WBC (Bld) [#/Vol] 15.3 10*3/uL High [facility] CMPon 04-24-2022 Albumin [Mass/Vol] 4.8 g/dL 3.5 - 5.2 g/dL [facility] Albumin/Globulin [Mass ratio] 1.6 {ratio} 1.0 - 2.5 [facility] ALP [Catalytic activity/Vol] 87 U/L 35 - 104 U/L [facility] ALT [Catalytic activity/Vol] 19 U/L 5 - 33 U/L [facility] Anion gap [Moles/Vol] 17 mmol/L 9 - 17 mmol/L [facility] AST [Catalytic activity/Vol] 23 U/L NINF - 32 U/L [facility] Bilirubin [Mass/Vol] 1.0 mg/dL 0.3 - 1 .2 mg/dL [facility] Calcium [Mass/Vol] 10.4 mg/dL 8.6 - 10. 4 mg/dL [facility] Chloride [Moles/Vol] 105 mmol/L 98 - 10 7 mmol/L [facility] CO2 [Moles/Vol] 19 mmol/L Low 20 - 31 mmol/L [facility] Creatinine [Mass/Vol] 0.84 mg/dL 0.50 - 0.90 mg/dL [facility] GFR/1.73 sq M.predicted MDRD (S/P/Bld) [Vol rate/Area] - PINF [facility] Comment on above: These results are not [...] 151 mg/dL High 70 - 99 mg/dL [facility] Interpretation and review of laboratory results Abnormal [facility] Potassium [Moles/Vol] 3.9 mmol/L 3.7 - 5.3 mmol/L [facility] Protein [Mass/Vol] 7.8 g/dL 6.4 - 8.3 g/dL [facility] Sodium [Moles/Vol] 141 mmol/L 135 - 144 mmol/L [facility] Urea nitrogen [Mass/Vol] 9 mg/dL 6 - 20 mg/dL [facility] Urea nitrogen/Creatinine (Bld) [Mass ratio] 11 9 - 20 [facility] CT ABDOMEN PELVIS W IV CONTR AST [...] pathologic adenopathy. Bones/Soft Tissues: No acute abnormality [facility] Rogelio Huang MD - 04/24/2022 [...] Otherwise, no acute intra-abdominal or pelvic abnormality [employer] Phone: Radiology Study observation (narrative) [employer] Phone: CT ABDOMEN PELVIS W IV CONTR AST Additional Contrast? NoneOrdered By: Rogelio Lima on 04-24-2022 [employer] Phone: Lactic Acidon 04-24-2022 Lactate (P samantha) [Moles/Vol] 2.1 mmol/L 0.5 - 2.2 mmol/L [facility] Lipaseon 04-24-2022 Lipase [Catalytic activity/Vol] 24 U/L 13 - 60 U/L [facility] Microscopic Urinalysison Bacteria, UA 1+ Abnormal None [facility] Epithelial Cells UA 5 TO 10 [facility] Interpretation and review of laboratory results Abnormal [facility] Mucus, UA 1+ Abnormal None [facility] RBC clumps Auto (Urine sed) [#/Area] None [facility] WBC, UA 0 TO 2 [facility] No Panel Informationon 04-24 [facility] Urinalysison 04-24-2022 Bilirubin Urine Negative NEGATIVE [facility] Color, UA Yellow Yellow [facility] Glucose Auto test strip (U) [Mass/Vol] Negative NEGATIVE [facility] Interpretation and review of laboratory results Abnormal [facility] Ketones (U) [Mass/Vol] 2+ Abnormal NEGATIVE [facility] Leukocyte esterase Auto test strip Ql (U) Negative NEGATIVE [facility] Nitrite Auto test strip Ql (U) Negative NEGATIVE [facility] Protein (U) [Mass/Vol] 5.0 - 9.0 [facility] Protein (U) [Mass/Vol] Negative NEGATIVE [facility] Specific [place], UA 1.010 1.010 - 1.020 B ON [facility] Turbidity UA SLIGHTLY CLOUDY Abnormal Clear [facility] Urine Hgb Negative NEGATIVE [facility] Urobilinogen, Urine Normal Normal [facility] , urineon 3 Beta HCG ( test) Ql (U) Negative NEGATIVE [facility] Comment on above: Specimens with hCG l evels near the threshold of the test (25 mIU/mL) may give a negative or indeterminate result. In such cases, another test should be performed with a new specimen in 48-72 hours. If early is suspected clinically in this setting, correlation with quantitative serum b-hCG level is suggested. [employer] has confirmed the use of plasma for this test. This has not been cleared or approved by the U.S. Food and Drug Administration. The FDA has determined that such clearance is not necessary. [facility]IT[facility] Cholesterol [Mass/volume] in Serum or PlasmaOrdered By: Feliberto Faust on 10-27-2021 Cholesterol [Mass/Vol] 102 mg/dL 140-200 [facility] Comment on above: Chol less than 200 m g/dl low risk Chol 201-239 mg/dl borderline risk Chol 240 mg/dl and greater high risk Cholesterol in LDL Calc [Mas s/Vol]Ordered By: Feilberto Faust on 10-27-2021 Cholesterol in LDL [Mass/Vol] 58 mg/dL 0-100 [facility] Comment on above: LDL ATP III CLASSIFI CATION LDL less than 100 mg/dL Optimal LDL 100-129 mg/dL Near or above optimal LDL 130-159 mg/dL Borderline high LDL 160-189 mg/dL High LDL greater than 189 mg/dL Very high Cholesterol in VLDL Calc [Ma ss/Vol]Ordered By: Feliberto Faust on 10-27-2021 Cholesterol in VLDL [Mass/Vol] 13 mg/dL [facility] ECG 12 lead ECGon 10-27-2021 ECG 12 lead ECG [facility] [place] [address] Electrocardiograph Report Signed Patient: Bennett Vaughn MR#: [id number] 7 : 1995 Acct:[id number] Age/Sex: 26 / F ADM Date: 10/26/21 Loc: Room: [address] [place] [address] Type: DIS IN Attending Dr: Feliberto Faust [...] : 416 ms Sinus bradycardia with short ID Otherwise normal ECG When compared with ECG of 10-APR-2019 09:44, Vent. rate has decreased BY 29 BPM Confirmed by PAYAM LIVINGSTON DO ([id number]) on 10/27/2021 1:03:16 PM Referred By: Electronically Signed By:PAYAM LIVINGSTON DO Transcribed By: MUS Signed By Payam Livingston DO 10/27 1303 Normal [facility] Lipid Panelon 10-27-2021 Cholesterol [Mass/Vol] 102 mg/dL Low 140-200 [facility] Comment on above: Result Comment: Chol less than 200 mg/dl low risk Chol 201-239 mg/dl borderline risk Chol 240 mg/dl and greater high risk Performed By: #### L IPID, TSH3 wRFLX, [id number] #### [facility] [address] [place] [id number] [facility] Cholesterol in HDL [Mass/Vol] 30 mg/dL Low 35-85 [facility] Comment on above: Result Comment: HDL CHOL ATP-III CLASSIFICATION Cardiovascular Risk HDL > or equal to 60 mg/dL LOW HDL < 40 mg/dL HIGH Performed By: #### L IPID, TSH3 wRFLX, [id number] #### [facility] [address] [place] [address] [place] Cholesterol.total/Fanny sterol in HDL [Mass ratio] 3.4 {ratio} Normal <5.0 [facility] Comment on above: Performed By: #### L IPID, TSH3 wRFLX, [id number] #### [facility] [address] [place] [address] [place] LDL Cholesterol,Calculated 58 mg/dL Normal 0-100 [facility] Comment on above: Result Comment: LDL ATP III CLASSIFICATION LDL less than 100 mg/dL Optimal LDL 100-129 mg/dL Near or above optimal LDL 130-159 mg/dL Borderline high LDL 160-189 mg/dL High LDL greater than 189 mg/dL Very high Performed By: #### L IPID, TSH3 wRFLX, [id number] #### [facility] [address] [place] [address] [place] Triglyceride w/Reflex 68 mg/dL Normal 35-149 [facility] Comment on above: Result Comment: TRIG ATP III CLASSIFICATION TRIG less than 150 mg/dL Normal TRIG 150-199 mg/dL Borderline high TRIG 200-500 mg/dL High TRIG greater than 500 mg/dL Very high Standard traceable to the Center for Disease Conrtrol and Prevention (CDC) test method. Performed By: #### L IPID, TSH3 wRFLX, [id number] #### [facility] [address] VLDL CHOLESTEROL 13 mg/dL Normal [facility] Comment on above: Performed By: #### L IPID, TSH3 wRFLX, [id number] #### [facility] [address] No Panel InformationOrdered By: Feliberto Faust on 10-27-2021 25-Hydroxy Vitamin D Total 36.4 ng/mL 30-100 [facility] Comment on above: VITAMIN D [...] Cholesterol in HDL [Mass/Vol] 30 mg/dL 35-85 [facility] Comment on above: HDL CHOL ATP-III CLA SSIFICATION Cardiovascular Risk HDL > or equal to 60 mg/dL LOW HDL < 40 mg/dL HIGH Serum or plasma total choles terol/high density lipoprotein (HDL) cholesterol mass ratOrdered By: Feliberto Faust on 10-27-2021 Cholesterol.total/Fanny sterol in HDL [Mass ratio] 3.4 {ratio} <5.0 [facility] TSH DL <= 0.005 mIU/L QnOrde red By: Feliberto Faust on 10-27-2021 TSH Qn 1.28 m[IU]/L 0.45-5.33 [facility] Thyroid Stim Hormone w/Rflxo n 10-27-2021 Thyroid Stim Hormone w/Rflx 1.28 u[iU]/mL Normal 0.45-5.33 [facility] Comment on above: Performed By: #### L IPID, TSH3 wRFLX, [id number] #### [facility] [address] [id number] [facility] Triglyceride [Mass/volume] i n Serum or [...] 25 Hydroxy Total 36.4 ng/mL Normal 30-100 [facility] Comment on above: Result Comment: KELSEY MIN D STATUS 25(OH)VITAMIN D RANGE (ng/mL) Deficient <20 Insufficient 20 to <30 Sufficient 30 to 100 Reference: Kath MF,Ramón BECERRIL, Teetee DAVIS, et al. Evaluation,treatment, and prevention of vitamin D deficiency; an Endocrine Society clinical practice guideline. JCEM. 2010; 96(7):1911-30. PERFORMED BY: [place] [address] PATHOLOGIST [employer]IEF CREW SCHEDULER JAMES MCNAIR M.D. Performed By: #### C BC, ETOH, CMP #### [facility] [address] [id number] [facility] Albumin [Mass/volume] in Ser um or PlasmaOrdered By: Ed Amaral on 10-26-2021 Albumin [Mass/Vol] 4.0 g/dL 3.2-5.5 [facility] Amphetamine Screen Ql (U)Ord ered By: Ed Amaral on 10-26-2021 Amphetamines Ql (U) Negative Negative [facility] Automated erythrocytes count in urine sediment (number/area)Ordered By: Ed Amaral on 10-26-2021 RBC Auto (Urine sed) [#/Area] 0-1 [HPF] 0-4 [facility] Automated leukocytes count i n urine sediment (number/area)Ordered By: Ed Amaral on 10-26-2021 WBC Auto (Urine sed) [#/Area] 1-2 [HPF] 0-4 [facility] Automated urine color determ inationOrdered By: Ed Amaral on 10-26-2021 Color (U) Yellow Normal Yellow [facility] Comment on above: Order Comment: Name Collection Type:: Clean-Voided Midstream Performed By: #### S OFIANEG, URDS, ADDONUAPLUS, UHCG, COVID-19 FELI #### [facility] [address] Barbiturates [Presence] in U rineOrdered By: Ed Amaral on 10-26-2021 Barbiturates Ql (U) Negative Negative [facility] Basophils Auto (Bld) [#/Vol] Ordered By: Ed Amaral on 10-26-2021 Basophils (Bld) [#/Vol] 0.1 10*3/uL 0.0-0.2 [facility] Basophils/100 WBC Auto (Bld) Ordered By: Ed Amaral on 10-26-2021 Basophils/100 WBC (Bld) 0.8 % . [facility] Benzodiazepines [Presence] i n UrineOrdered By: Ed Amaral on 10-26-2021 Benzodiazepines Ql (U) Negative Negative Fi [facility] Bilirubin Test strip Ql (U)O rdered By: Ed Amaral on 10-26-2021 Bilirubin Ql (U) Negative Negative [facility] Blood hemoglobin measurement (mass/volume)Ordered By: Ed Amaral on 10-26-2021 Hemoglobin (Bld) [Mass/Vol] 13.3 g/dL 11.8-15.4 [facility] Blood leukocytes automated c ount (number/volume)Ordered By: Ed Amaral on 10-26-2021 WBC (Bld) [#/Vol] 10.2 10*3/uL 4.5-11.0 [facility] COVID-19 Antigenon COVID-19 Antigen Healthcare Worker?: N Reference Range: [...] and its performance characteristic determined by [employer] and validated at [facility]. This test has not been [...] for SARS Antigen by ERNESTO PERFORMED BY: [place] [address] PATHOLOGIST [employer]IEF [employer]W SCHEDULER JAMES MCNAIR M.D. [facility] Comment on above: Performed By: #### S OFIANEG, URDS, ADDONUAPLUS, UHCG, COVID-19 FELI #### [address] COVID-19 SOFIAOrdered By: Archie Amaral on 10-26-2021 SARS-CoV+SARS-CoV-2 (COVID-19) Ag [place].rapid Ql (Resp) Negative Negative [facility] Comment on above: This is a duplicate Feli SARS Antigen (ERNESTO) result to be used for statistical tracking purpose only. Cannabinoids [Presence] in U rine by Screen methodOrdered By: Ed Amaral on 10-26-2021 Cannabinoids Screen Ql (U) Positive Negative [facility] Comment on above: These are unconfirme d results and should not be used for legal purposes. Drug Cut-Off Concentration: AMPH 1000 ng/mL SANCHEZ 200 ng/mL RENZO 200 ng/mL COCM 300 ng/mL OP 300 ng/mL PCP 25 ng/mL THC 20 ng/mL Complete Blood Count Auto Di ffon 10-26-2021 Basophils (Bld) [#/Vol] 0.1 10*3/uL Normal 0.0-0.2 [facility] Comment on above: Result Comment: PERF ORMED BY: [place] [address] PATHOLOGIST [employer]IE[employer]W SCHEDULER JAMES MCNAIR M.D. Performed By: #### C BC, ETOH, CMP #### [address] Basophils/100 WBC (Bld) 0.8 % Normal . [facility] Comment on above: Performed By: #### C BC, ETOH, CMP #### [facility] [address] Eosinophils (Bld) [#/Vol] 0.2 10*3/uL Normal 0.0-0.45 [facility] Comment on above: Performed By: #### C BC, ETOH, CMP #### [facility] [address] [place] [address] [place] Eosinophils/100 WBC (Bld) 1.9 % Normal . [facility] Comment on above: Performed By: #### C BC, ETOH, CMP #### [facility] [address] Erythrocyte distribution width (RBC) [Ratio] 13.0 % Normal 11.9-15.3 [facility] Comment on above: Performed By: #### C BC, ETOH, CMP #### [facility] [address] Hematocrit (Bld) [Volume fraction] 39.1 % Normal 34.0-46.4 [facility] Comment on above: Performed By: #### C BC, ETOH, CMP #### [facility] [address] Hemoglobin (Bld) [Mass/Vol] 13.3 g/dL Normal 11.8-15.4 [facility] Comment on above: Performed By: #### C BC, ETOH, CMP #### [facility] [address] Lymphocytes (Bld) [#/Vol] 2.2 10*3/uL Normal 1.00-4.8 [facility] Comment on above: Performed By: #### C BC, ETOH, CMP #### [address] Lymphocytes/100 WBC (Bld) 21.5 % Normal . [facility] Comment on above: Performed By: #### C BC, ETOH, CMP #### [address] MCH (RBC) [Entitic mass] 32.9 pg Normal 24.7-34.3 [facility] Comment on above: Performed By: #### C BC, ETOH, CMP #### [address] MCV (RBC) [Entitic vol] 96.5 fL Normal 80-100 [facility] Comment on above: Performed By: #### C BC, ETOH, CMP #### [address] Mean Corpuscular HGB Conc 34.1 g/dL Normal 32.0-35.0 [facility] Comment on above: Performed By: #### C BC, ETOH, CMP #### [place] [address] [place] Monocytes (Bld) [#/Vol] 0.6 10*3/uL Normal 0.0-0.8 [facility] Comment on above: Performed By: #### C BC, ETOH, CMP #### [place] [address] [place] Monocytes/100 WBC (Bld) 6.2 % Normal . [facility] Comment on above: Performed By: #### C BC, ETOH, CMP #### [place] [address] [place] Neutrophils (Bld) [#/Vol] 7.1 10*3/uL Normal 1.8-7.7 [facility] Comment on above: Performed By: #### C BC, ETOH, CMP #### [facility] [address] [place] [address] [place] Neutrophils/100 WBC (Bld) 69.6 % Normal . [facility] Comment on above: Performed By: #### C BC, ETOH, CMP #### [address] Nucleated RBC/100 WBC (Bld) [Ratio] 0.0 % Normal 0-0.5 [facility] Comment on above: Performed By: #### C BC, ETOH, CMP #### [address] Platelet mean volume (Bld) [Entitic vol] 9.0 fL Normal 6.3-10.7 [facility] Comment on above: Performed By: #### C BC, ETOH, CMP #### [place] [address] [place] Platelets (Bld) [#/Vol] 173 10*3/uL Normal 150-450 [facility] Comment on above: Performed By: #### C BC, ETOH, CMP #### [place] [address] [place] RBC (Bld) [#/Vol] 4.05 10*6/uL Normal 3.60-5.00 [facility] Comment on above: Performed By: #### C BC, ETOH, CMP #### [place] [address] [place] WBC (Bld) [#/Vol] 10.2 10*3/uL Normal 4.5-11.0 [facility] Comment on above: Performed By: #### C BC, ETOH, CMP #### [address] [place] [address] [place] Comprehensive Metabolic Pane vinita 10-26-2021 Albumin [Mass/Vol] 4.0 g/dL Normal 3.2-5.5 [facility] Comment on above: Performed By: #### C BC, ETOH, CMP #### [facility] [address] Albumin/Globulin [Mass ratio] 1.5 {ratio} Normal [facility] Comment on above: Performed By: #### C BC, ETOH, CMP #### [facility] [address] ALP [Catalytic activity/Vol] 55 U/L Normal 32-92 [facility] Comment on above: Performed By: #### C BC, ETOH, CMP #### [facility] [address] ALT [Catalytic activity/Vol] 20 U/L Normal 10-60 [facility] Comment on above: Performed By: #### C BC, ETOH, CMP #### [facility] [address] Anion gap [Moles/Vol] 10.1 mmol/L Normal 6.0-15.0 [facility] Comment on above: Performed By: #### C BC, ETOH, CMP #### [facility] [address] AST [Catalytic activity/Vol] 17 U/L Normal 10-42 [facility] Comment on above: Performed By: #### C BC, ETOH, CMP #### [facility] [address] [place] [address] [place] Bilirubin [Mass/Vol] 0.4 mg/dL Normal 0.3-1.2 [facility] Comment on above: Performed By: #### C BC, ETOH, CMP #### [facility] [address] [place] [id number] [facility] Calcium [Mass/Vol] 9.5 mg/dL Normal 8.2-10.2 [facility] Comment on above: Performed By: #### C BC, ETOH, CMP #### [facility] [address] Chloride [Moles/Vol] 104 mmol/L Normal 95-114 [facility] Comment on above: Performed By: #### C BC, ETOH, CMP #### [address] CO2 [Moles/Vol] 25.3 mmol/L Normal 22.0-30.0 [facility] Comment on above: Performed By: #### C BC, ETOH, CMP #### [address] Creatinine [Mass/Vol] 0.81 mg/dL Normal 0.44-1.03 [facility] Comment on above: Performed By: #### C BC, ETOH, CMP #### [address] Creatinine Clr Calc Pharmacy 97.62 [facility] Comment on above: Result Comment: PERF ORMED BY: [place] [address] PATHOLOGIST CHIEF [employer]W SCHEDULER JAMES MCNAIR M.D. Performed By: #### C BC, ETOH, CMP #### [address] Estimated GFR ( Nette > 60 [facility] Comment on above: Result Comment: GFR estimated reference range: According to KDOQI guidelines, <60 ml/min/1.73m2 is sufficient to diagnose a patient with chronic kidney disease. Performed By: #### C BC, ETOH, CMP #### [address] Estimated GFR (Non- Am > 60 [facility] Comment on above: Performed By: #### C BC, ETOH, CMP #### [address] Globulin (S) [Mass/Vol] 2.7 g/dL Normal [facility] Comment on above: Performed By: #### C BC, ETOH, CMP #### [address] Glucose [Mass/Vol] 98 mg/dL Normal 70-100 [facility] Comment on above: Result Comment: [place] Glucose Reference Range is dependent on time and content of last meal. Glucose of more than 200 mg/dL in a nonstressed, ambulatory subject supports the diagnosis of Diabetes Mellitus. ADA recommended reference range Performed By: #### C BC, ETOH, CMP #### [facility] [address] Potassium [Moles/Vol] 3.4 mmol/L Low 3.5-5.1 [facility] Comment on above: Performed By: #### C BC, ETOH, CMP #### [facility] [address] Protein [Mass/Vol] 6.7 g/dL Normal 6.1-7.9 [facility] Comment on above: Performed By: #### C BC, ETOH, CMP #### [facility] [address] Sodium [Moles/Vol] 136 mmol/L Normal 136-146 [facility] Comment on above: Performed By: #### C BC, ETOH, CMP #### [facility] [address] [place] [address] [place] Urea nitrogen [Mass/Vol] 6 mg/dL Low 9-23 [facility] Comment on above: Performed By: #### C BC, ETOH, CMP #### [facility] [address] [place] [address] [place] Creatinine and Glomerular fi ltration rate.predicted panel (S/P/Bld)Ordered By: Ed Amaral on 10-26-2021 Creatinine [Mass/Vol] 0.81 mg/dL 0.44-1.03 [facility] Dipstick and Microscopicon 0 10-26-2021 Appearance (U) Clear Normal Clear [facility] Comment on above: Order Comment: Name Collection Type:: Clean-Voided Midstream Performed By: #### S OFIANEG, URDS, ADDONUAPLUS, UHCG, COVID-19 FELI #### [facility] [address] [place] [address] [place] Bilirubin,Urine Negative Normal Negative [facility] Comment on above: Order Comment: Name Collection Type:: Clean-Voided Midstream Performed By: #### S OFIANEG, URDS, ADDONUAPLUS, UHCG, COVID-19 FELI #### [facility] [address] Glucose Ql (U) Normal Normal Normal [facility] Comment on above: Order Comment: Name Collection Type:: Clean-Voided Midstream Performed By: #### S OFIANEG, URDS, ADDONUAPLUS, UHCG, COVID-19 FELI #### [facility] [address] [place] [address] Ketones Ql (U) Negative Normal Negative [facility] Comment on above: Order Comment: Name Collection Type:: Clean-Voided Midstream Performed By: #### S OFIANEG, URDS, ADDONUAPLUS, UHCG, COVID-19 FELI #### [facility] [address] [place] [address] Leukocyte esterase Test strip Ql (U) 1+ High Negative [facility] Comment on above: Order Comment: Name Collection Type:: Clean-Voided Midstream Performed By: #### S OFIANEG, URDS, ADDONUAPLUS, UHCG, COVID-19 FELI #### [facility] [address] [place] [address] [place] Nitrite,Urine Negative Normal Negative [facility] Comment on above: Order Comment: Name Collection Type:: Clean-Voided Midstream Performed By: #### S OFIANEG, URDS, ADDONUAPLUS, UHCG, COVID-19 FELI #### [facility] [address] [place] [address] [place] Occult Blood,Urine Negative Normal Negative [facility] Comment on above: Order Comment: Name Collection Type:: Clean-Voided Midstream Performed By: #### S OFIANEG, URDS, ADDONUAPLUS, UHCG, COVID-19 FELI #### [facility] [address] [place] [address] [place] Protein,Urine Negative Normal Negative [facility] Comment on above: Order Comment: Name Collection Type:: Clean-Voided Midstream Performed By: #### S OFIANEG, URDS, ADDONUAPLUS, UHCG, COVID-19 FELI #### [facility] [address] RBC LM.HPF (Urine sed) [#/Area] 0 /[HPF] Normal 0-4 [facility] Comment on above: Order Comment: Name Collection Type:: Clean-Voided Midstream Performed By: #### S OFIANEG, URDS, ADDONUAPLUS, UHCG, COVID-19 FELI #### [facility] [address] Specificy [place],Urine 1.005 Normal 1.001-1.030 [facility] Comment on above: Order Comment: Name Collection Type:: Clean-Voided Midstream Performed By: #### S OFIANEG, URDS, ADDONUAPLUS, UHCG, COVID-19 FELI #### [address] Squamous Epithelial Cell,Urine 1-2 Normal 0-2 [facility] Comment on above: Order Comment: Name Collection Type:: Clean-Voided Midstream Performed By: #### S OFIANEG, URDS, ADDONUAPLUS, UHCG, COVID-19 FELI #### [facility] [address] [place] [address] Urobilinogen,Urine Normal Normal Normal [facility] Comment on above: Order Comment: Name Collection Type:: Clean-Voided Midstream Performed By: #### S OFIANEG, URDS, ADDONUAPLUS, UHCG, COVID-19 FELI #### [facility] [address] [place] [address] [place] WBC,Urine 1-2 Normal 0-4 [facility] Comment on above: Order Comment: Name Collection Type:: Clean-Voided Midstream Performed By: #### S OFIANEG, URDS, ADDONUAPLUS, UHCG, COVID-19 FELI #### [facility] [address] [place] [address] Drug Screen,Urineon 10-27-19 Amphetamine Screen,Urine Negative Normal Negative [facility] Comment on above: Performed By: #### S OFIANEG, URDS, ADDONUAPLUS, UHCG, COVID-19 FELI #### [facility] [address] [place] [address] Barbiturate Screen,Urine Negative Normal Negative [facility] Comment on above: Performed By: #### S OFIANEG, URDS, ADDONUAPLUS, UHCG, COVID-19 FELI #### [address] Benzodiazepines Screen,Urine Negative Normal Negative [facility] Comment on above: Performed By: #### S OFIANEG, URDS, ADDONUAPLUS, UHCG, COVID-19 FELI #### [address] Cannabinoid Screen,Urine Positive High Negative [facility] Comment on above: Result Comment: Thes e are unconfirmed results and should not be used for legal purposes. Drug Cut-Off Concentration: AMPH 1000 ng/mL SANCHEZ 200 ng/mL RENZO 200 ng/mL COCM 300 ng/mL OP 300 ng/mL PCP 25 ng/mL THC 20 ng/mL PERFORMED BY: [place] [address] PATHOLOGIST [employer]W SCHEDULER JAMES MCNAIR M.D. Performed By: #### S OFIANEG, URDS, ADDONUAPLUS, UHCG, COVID-19 FELI #### [address] Cocaine Screen,Urine Negative Normal Negative [facility] Comment on above: Performed By: #### S OFIANEG, URDS, ADDONUAPLUS, UHCG, COVID-19 FELI #### [address] Opiate Screen,Urine Negative Normal Negative [facility] Comment on above: Performed By: #### S OFIANEG, URDS, ADDONUAPLUS, UHCG, COVID-19 FELI #### [facility] [address] Phencyclidine Screen,Urine Negative Normal Negative [facility] Comment on above: Performed By: #### S OFIANEG, URDS, ADDONUAPLUS, UHCG, COVID-19 FELI #### [facility] [address] [place] [address] [place] Eosinophils Auto (Bld) [#/Vo l]Ordered By: Ed Amaral on 10-26-2021 Eosinophils (Bld) [#/Vol] 0.2 10*3/uL 0.0-0.45 [facility] Eosinophils/100 WBC Auto (Bl d)Ordered By: Ed Amaral on 10-26-2021 Eosinophils/100 WBC (Bld) 1.9 % . [facility] Erythrocyte distribution wid th Auto (RBC) [Ratio]Ordered By: Ed Amaral on 10-26-2021 Erythrocyte distribution width (RBC) [Ratio] 13.0 % 11.9-15.3 [facility] Estimated glomerular filtrat ion rate (GFR) non- AmericanOrdered By: Ed Amaral on 10-26-2021 GFR/1.73 sq M.predicted among non-blacks MDRD (S/P/Bld) [Vol rate/Area] > 60 mL/Min [facility] Ethyl Alcohol Profileon 09-29 Ethanol [Mass/Vol] mg/dL Normal [facility] Comment on above: Performed By: #### C BC, ETOH, CMP #### [facility] [address] [place] [address] Percent Ethanol Not performed Normal [facility] Comment on above: Result Comment: PERF ORMED BY: [place] [address] PATHOLOGIST [employer] SCHEDULER JAMES MCNAIR M.D. Performed By: #### C BC, ETOH, CMP #### [facility] [address] [place] [address] Globulin Calc (S) [Mass/Vol] Ordered By: Ed Amaral on 10-26-2021 Globulin (S) [Mass/Vol] 2.7 g/dL [facility] HCG ( test) [place].rapi d Ql (U)Ordered By: Ed Amaral on 10-26-2021 HCG ( test) Ql (U) Negative [facility] HCG,Urineon 10-26-2021 Beta HCG ( test) Ql (U) Negative Normal [facility] Comment on above: Order Comment: Name Collection Type:: Clean-Voided Midstream Result Comment: PERF ORMED BY: [facility] [address] [place] [address] PATHOLOGIST [employer] SCHEDULER JAMES MCNAIR M.D. Performed By: #### S OFDEAN, BALJINDER, ADDONUAPLUS, UHCG, COVID-19 FELI #### [address] Hematocrit Auto (Bld) [Volum e fraction]Ordered By: Ed Amaral on 10-26-2021 Hematocrit (Bld) [Volume fraction] 39.1 % 34.0-46.4 [facility] Ketones Auto test strip (U) [Mass/Vol]Ordered By: Ed Amaral on 10-26-2021 Ketones (U) [Mass/Vol] Negative Negative Fi [facility] Laboratory - Drug toxicology Ordered By: Ed Amaral on 10-26-2021 Opiates Ql (U) Negative Negative [facility] Laboratory - Hematology and Cell countsOrdered By: Ed Amaral on 10-26-2021 Nucleated RBC/100 WBC (Bld) [Ratio] 0.0 % 0-0.5 [facility] Lymphocytes Auto (Bld) [#/Vo l]Ordered By: Ed Amaral on 10-26-2021 Lymphocytes (Bld) [#/Vol] 2.2 10*3/uL 1.00-4.8 [facility] Lymphocytes/100 WBC Auto (Bl d)Ordered By: Ed Amaral on 10-26-2021 Lymphocytes/100 WBC (Bld) 21.5 % . [facility] MCH Auto (RBC) [Entitic mass ]Ordered By: Ed Amaral on 10-26-2021 MCH (RBC) [Entitic mass] 32.9 pg 24.7-34.3 [facility] MCHC Auto (RBC) [Mass/Vol]Or dered By: Ed Amaral on 10-26-2021 MCHC (RBC) [Mass/Vol] 34.1 g/dL 32.0-35.0 Fir [facility] MCV Auto (RBC) [Entitic vol] Ordered By: Ed Amaral on 10-26-2021 MCV (RBC) [Entitic vol] 96.5 fL 80-100 [facility] Monocytes Auto (Bld) [#/Vol] Ordered By: Ed Amaral on 10-26-2021 Monocytes (Bld) [#/Vol] 0.6 10*3/uL 0.0-0.8 [facility] Monocytes/100 WBC Auto (Bld) Ordered By: Ed Amaral on 10-26-2021 Monocytes/100 WBC (Bld) 6.2 % . [facility] Neutrophils Auto (Bld) [#/Vo l]Ordered By: Ed Amaral on 10-26-2021 Neutrophils (Bld) [#/Vol] 7.1 10*3/uL 1.8-7.7 [facility] Neutrophils/100 WBC Auto (Bl d)Ordered By: Ed Amaral on 10-26-2021 Neutrophils/100 WBC (Bld) 69.6 % . [facility] Nitrite Test strip Ql (U)Ord ered By: Ed Amaral on 10-26-2021 Nitrite Ql (U) Negative Negative [facility] No Panel InformationOrdered By: Ed Amaral on 10-26-2021 Estimated GFR () > 60 mL/Min [facility] Comment on above: GFR estimated refere nce range: According to KDOQI guidelines, <60 ml/min/1.73m2 is sufficient to diagnose a patient with chronic kidney disease. Pharmacy Creatinine Clearance (Chem 97.62 [facility] SARS Antigen (LFIA) [facility] Phencyclidine Screen Ql (U)O rdered By: Ed Amaral on 10-26-2021 Phencyclidine Ql (U) Negative Negative [facility] Platelet mean volume Auto (B ld) [Entitic vol]Ordered By: Ed Amaral on 10-26-2021 Platelet mean volume (Bld) [Entitic vol] 9.0 fL 6.3-10.7 [facility] Platelets Auto (Bld) [#/Vol] Ordered By: Ed Amaral on 10-26-2021 Platelets (Bld) [#/Vol] 173 10*3/uL 150-450 [facility] Protein Auto test strip (U) [Mass/Vol]Ordered By: Ed Amaral on 10-26-2021 Protein (U) [Mass/Vol] Negative Negative [facility] Protein [Mass/volume] in Ser um or PlasmaOrdered By: Ed Amaral on 10-26-2021 Protein [Mass/Vol] 6.7 g/dL 6.1-7.9 [facility] RBC Auto (Bld) [#/Vol]Ordere d By: Ed Amaral on 10-26-2021 RBC (Bld) [#/Vol] 4.05 10*6/uL 3.60-5.00 [facility] Serum or plasma alanine daniel otransferase measurement without P-5'-P (enzymatic activiOrdered By: Ed Amaral on 10-26-2021 ALT No additional P-5'-P [Catalytic activity/Vol] 20 U/L 10-60 [facility] Serum or plasma albumin/glob ulin mass ratioOrdered By: Ed Amaral on 10-26-2021 Albumin/Globulin [Mass ratio] 1.5 {ratio} [facility] Serum or plasma alkaline jame sphatase measurement (enzymatic activity/volume)Ordered By: Ed Amaral on 10-26-2021 ALP [Catalytic activity/Vol] 55 U/L 32-92 [facility] Serum or plasma anion gap de terminationOrdered By: Ed Amaral on 10-26-2021 Anion gap [Moles/Vol] 10.1 mmol/L 6.0-15.0 [facility] Serum or plasma aspartate am inotransferase measurement (enzymatic activity/volume)Ordered By: Ed Amaral on 10-26-2021 AST [Catalytic activity/Vol] 17 U/L 10-42 [facility] Serum or plasma calcium stephane urement (mass/volume)Ordered By: Ed Amaral on 10-26-2021 Calcium [Mass/Vol] 9.5 mg/dL 8.2-10.2 [facility] Serum or plasma chloride rios surement (moles/volume)Ordered By: Ed Amaral on 10-26-2021 Chloride [Moles/Vol] 104 mmol/L 95-114 [facility] Serum or plasma ethanol stephane urement (mass/volume)Ordered By: dE Amaral on 10-26-2021 Ethanol [Mass/Vol] mg/dL [facility] Ethanol [Mass/Vol] TNP [facility] Comment on above: Test not performed Serum or plasma glucose stephane urement (mass/volume)Ordered By: Ed Amaral on 10-26-2021 Glucose [Mass/Vol] 98 mg/dL 70-100 [facility] Comment on above: ADA recommended refe rence range Random Glucose Reference Range is dependent on time and content of last meal. Glucose of more than 200 mg/dL in a nonstressed, ambulatory subject supports the diagnosis of Diabetes Mellitus. Serum or plasma potassium me asurement (moles/volume)Ordered By: Ed Amaral on 10-26-2021 Potassium [Moles/Vol] 3.4 mmol/L 3.5-5.1 [facility] Serum or plasma sodium measu rement (moles/volume)Ordered By: Ed Amaral on 10-26-2021 Sodium [Moles/Vol] 136 mmol/L 136-146 [facility] Serum or plasma total biliru bin measurement (mass/volume)Ordered By: Ed Amaral on 10-26-2021 Bilirubin [Mass/Vol] 0.4 mg/dL 0.3-1.2 [facility] Serum or plasma total carbon dioxide measurement (moles/volume)Ordered By: Ed Amaral on 10-26-2021 CO2 [Moles/Vol] 25.3 mmol/L 22.0-30.0 [facility] Serum or plasma urea nitroge n measurement (mass/volume)Ordered By: Ed Amaral on 10-26-2021 Urea nitrogen [Mass/Vol] 6 mg/dL 9- [facility] Feli Ag Negativeon 10-27-19 Feli Ag Negative Negative Normal Negative [facility] Comment on above: Result Comment: This is a duplicate Feli SARS Antigen (ERNESTO) result to be used for statistical tracking purpose only. PERFORMED BY: [facility] [address] [place] [address] PATHOLOGIST [employer]IE[employer] SCHEDULER JAMES MCNAIR M.D. Performed By: #### S OFIANEG, URDS, ADDONUAPLUS, UHCG, COVID-19 FELI #### [address] Specific gravity Auto test s trip (U) [Rel density]Ordered By: Ed Amaral on 10-26-2021 Specific gravity (U) [Rel density] 1.005 1.001-1.030 [facility] Squamous epithelial cells de tection in urine sediment by light microscopyOrdered By: Ed Amaral on 10-26-2021 Epithelial cells.squamous LM Ql (Urine sed) 1-2 [HPF] 0-2 [facility] Urine bacteria detection by automated methodOrdered By: Ed Amaral on 10-26-2021 Bacteria Auto Ql (U) N/A [facility] Urine clarity by refractomet ry automatedOrdered By: Ed Amaral on 10-26-2021 Clarity Refractometry automated (U) Clear Clear [facility] Urine cocaine detectionOrder ed By: Ed Amaral on 10-26-2021 Cocaine Ql (U) Negative Negative [facility] Urine glucose measurement by automated test strip (mass/volume)Ordered By: Ed Amaral on 10-26-2021 Glucose Auto test strip (U) [Mass/Vol] Normal mg/dL Normal [facility] Urine hemoglobin detection b y automated test stripOrdered By: Ed Amaral on 10-26-2021 Hemoglobin Auto test strip Ql (U) Negative Negative [facility] Urine leukocyte esterase det ection by automated test stripOrdered By: Ed Amaral on 10-26-2021 Leukocyte esterase Auto test strip Ql (U) 1+ Negative [facility] Urine pH measurement by auto mated test stripOrdered By: Ed Amaral on 10-26-2021 pH (U) 7.0 [pH] Normal 5.0-9.0 [facility] Comment on above: Order Comment: Name Collection Type:: Clean-Voided Midstream Performed By: #### S OFIANEG, URDS, ADDONUAPLUS, UHCG, COVID-19 FELI #### [facility] [address] Urobilinogen Auto test strip (U) [Mass/Vol]Ordered By: Ed Amaral on 10-26-2021 Urobilinogen (U) [Mass/Vol] Normal mg/dL Normal [facility] Viral Non-Resp Culton 2021 Viral Non-Resp Cult Specimen Description .WOUND UPPER .LIP Culture POSITIVE: HSV-1 DNA detected by nucleic acid amp. NEGATIVE: HSV-2 DNA not detected by nucleic acid amplification. Due to the specimen source, HSV 1,2 testing was performed by a molecular method. Report Status FINAL 05/30/[address] [facility] Comment on above: Performed By: #### V [facility] #### [place] [address] [place]: Claude Gonzalez MD No Panel InformationOrdered By: Kia Sharma on 05-28-2021 Reported Physicians See Note [facility] Work Phone: Comment on above: Note: Reported Physi cians:Ordering: Andres SharmaaAttending: Andres SharmaaReferring: Kia Sharma Viral Non-Resp Cult See Note [facility] Work Phone: Comment on above: Note: Specimen Descr iption .WOUND UPPER .LIPCulture POSITIVE: HSV-1 DNA detected by nucleic acid amp.NEGATIVE: HSV-2 DNA not detected by nucleic acid amplification.Due to the specimen source, HSV 1,2 testing was performed by a molecular method.Report Status FINAL 2Responsible Observer: SUMMER BOYD ([id number]) Follicle Stimulating Hormone on 03-10-2021 FSH 4.5 U/L 1.7 - 21.5 U/L [facility] Comment on above: Reference Range: Male: 1.5-12.4 Ovulating Female: Follicular Phase 3.5-12.5 Ovulation Phase 4.7-21.5 Luteal Phase 1.7-7.7 Postmenopausal Female: 25.8-134.8 Luteinizing Hormoneon 2021 LH 3.0 U/L 1.0 - 95.6 U/L [facility] Comment on above: Reference Range: Male: 1.7-8.6 Ovulating Female: Follicular Phase 2.4-12.6 Ovulation Phase 14.0-95.6 Luteal Phase 1.0-11.4 Postmenopausal Female: 7.7-58.5 No Panel Informationon 03-10 [facility] Prolactinon 03-10-2021 Prolactin 5.96 ug/L 4.79 - 23.30 ug/L [facility] Comment on above: The presence of macr oprolactin may cause interference in female patients with various endocrinological diseases or during . [facility] TSH with Reflexon 03-10-2021 TSH Qn 0.72 m[IU]/L [employer] hCG, Quantitative, on 03-10-2021 hCG Quant <1 <5 IU/L [facility] Comment on above: Non-preg premeno <=5 Postmeno <=8 Male <=3 If HCG results do not concur with clinical observations, additional testing to confirm results is recommended. Elevated results not associated with may be found in patients with other diseases such as tumors of the germ cells (testis, ovaries, etc.), bladder, pancreas, stomach, lungs, and liver. [facility] , UrineOrdered By: Anthony Galloway on 10-14-2020 Beta HCG ( test) Ql (U) Negative NEGATIVE [employer] Phone: Comment on above: Specimens with hCG l evels near the threshold of the test (25 mIU/mL) may give a negative or indeterminate result. In such cases, another test should be performed with a new specimen in 48-72 hours. If early is suspected clinically in this setting, correlation with quantitative serum b-hCG level is suggested. [employer] has confirmed the use of plasma for this test. This has not been cleared or approved by the U.S. Food and Drug Administration. The FDA has determined that such clearance is not necessary. [facility] Work Phone: COVID-19Ordered By: Sabas siddiqi on 10-10-2020 SARS-CoV-2 (COVID-19) RNA SANDRA+probe Ql (Unsp spec) [employer] Phone: SARS-CoV-2 (COVID-19) RNA SANDRA+probe Ql (Unsp spec) Not detected Not Detected [employer] Phone: Comment on above: The specimen is NEGATIVE for SARS-CoV-2, the novel coronavirus associated with COVID-19. A negative result does not rule out COVID-19. Maritza SARS-CoV-2 for use on the [employer]88[employer] is a real-time RT-PCR test intended [...] this assay. Fact sheet for Healthcare Providers: https://www.fda.gov/media/558682/download Fact sheet for Patients: https://www.fda.gov/media/113676/download METHODOLOGY: RT-PCR Source .NASOPHARYNGEAL SWAB [employer] Phone: [employer] Phone: Microscopic Urinalysison Amorphous, UA NOT REPORTED None [facility] Bacteria, UA 1+ Abnormal None [facility], [place] Casts UA NOT REPORTED /LPF [facility] Crystals, UA NOT REPORTED None /HPF [facility] [place] Epithelial Cells UA 5 TO 10 [facility] Interpretation and review of laboratory results Abnormal [facility] Mucus, UA NOT REPORTED None [facility], [place] Other Observations UA NOT REPORTED NOT REQ. M [facility], [place] RBC (U) [#/Vol] 0 TO 2 [place], [place] Renal Epithelial, UA NOT REPORTED 0 /HPF [place], [place] Trichomonas, UA NOT REPORTED None [place], [place] WBC, UA 0 TO 2 [place], [place] Yeast, UA NOT REPORTED None [place], [place] , Urineon 0 Beta HCG ( test) Ql (U) Negative NEGATIVE [place] Comment on above: Specimens with hCG l evels near the threshold of the test (25 mIU/mL) may give a negative or indeterminate result. In such cases, another test should be performed with a new specimen in 48-72 hours. If early is suspected clinically in this setting, correlation with quantitative serum b-hCG level is suggested. [facility] has confirmed the use of plasma for this test. This has not been cleared or approved by the U.S. Food and Drug Administration. The FDA has determined that such clearance is not necessary. Urinalysis Reflex to Culture on 02-25-2020 Bilirubin Urine Negative NEGATIVE [place], [place] Color, UA YELLOW YELLOW [place] Glucose, Ur Negative NEGATIVE [place] Ketones Ql (U) Negative NEGATIVE [place], [place] Leukocyte esterase Test strip Ql (U) Negative NEGATIVE [place] Nitrite, Urine Negative NEGATIVE [place] pH, UA 6.5 [place] Protein (U) [Mass/Vol] Negative NEGATIVE [place] Specific [place], UA 1.010 [place], [place] Turbidity UA CLEAR CLEAR [place] Urinalysis Comments NOT REPORTED [place] Urine Hgb Negative NEGATIVE [place] Urobilinogen, Urine Normal Normal [place] Wet Prep, Genitalon 02-25-20 20 Direct Exam NO TRICHOMONAS SEEN [place], [place] Direct Exam NO YEAST OBSERVED [place] Direct Exam CLUE CELLS SEEN Abnormal [place], [place] Interpretation and review of laboratory results Abnormal [place] Special Requests NOT REPORTED [place] Specimen Description .VAGINA [place], [place] Laboratory Studieson 016 Albumin [Mass/Vol] 3.4 g/dL 3.2-5.5 [facility] Albumin/Globulin [Mass ratio] 1.5 {ratio} [facility] ALP [Catalytic activity/Vol] 50 U/L 32-92 [facility] ALT [Catalytic activity/Vol] 17 U/L 10-60 [facility] AST [Catalytic activity/Vol] 16 U/L 10-42 [facility] Basophils (Bld) [#/Vol] 0.0 10*3/uL 0.0-0.2 [facility] Basophils/100 WBC (Bld) 0.3 % [facility] Bilirubin Ql (U) 0.2 mg/dL Low 0.3-1.2 [facility] Bilirubin.direct [Mass/Vol] mg/dL 0.0-0.4 [facility] Bilirubin.indirect (Body fld) [Mass/Vol] TNP [facility] Comment on above: Test not performed WHEN BILD IS <0.1,IBIL IS NOT ABLE TO BE CALCULATED. Calcium [Mass/Vol] 9.3 mg/dL 8.2-10.2 [facility] Chloride [Moles/Vol] 106 mmol/L 95-114 [facility] Cholesterol [Mass/Vol] 9 mg/dL Fi [facility] Cholesterol [Mass/Vol] 101 mg/dL Low 140-200 [facility] Comment on above: CHOL less than 200 m g/dL Low risk CHOL 201-239 mg/dL Borderline risk CHOL 240 mg/dL and greater High risk Cholesterol in HDL [Mass/Vol] 38 mg/dL 35-85 [facility] Comment on above: HDL CHOL ATP-III CLA SSIFICATION Cardiovascular Risk HDL > or equal to 60 mg/dL Low HDL < 40 mg/dL High Cholesterol.total/Fanny sterol in HDL [Mass ratio] 2.7 {ratio} [facility] CO2 [Moles/Vol] 25.8 mmol/L 22.0-30.0 [facility] Creatinine [Mass/Vol] 0.62 mg/dL 0.44-1.03 [facility] Eosinophils (Bld) [#/Vol] 0.10 10*3/uL 0.0-0.45 [facility] Eosinophils/100 WBC (Bld) 1.5 % [facility] Erythrocyte distribution width (RBC) [Ratio] 13.2 % 11.9-15.3 [facility] Estimated GFR (Non- > 60 [facility] GFR/1.73 sq M.predicted MDRD (S/P/Bld) [Vol rate/Area] mL/min/{1.73_m2} [facility] Comment on above: GFR estimated refere nce range: According to KDOQI guidelines, <60 ml/min/1.73m2 is sufficient to diagnose a patient with chronic kidney disease. Globulin (S) [Mass/Vol] 2.2 g/dL [facility] Glucose [Mass/Vol] 82 mg/dL 70-100 [facility] Comment on above: ADA RECOMMENDED REFE RENCE RANGE Hematocrit (Bld) [Volume fraction] 32.1 % Low 34.0-46.4 [facility] Hemoglobin (Bld) [Mass/Vol] 11.0 g/dL Low 11.8-15.4 [facility] LDL Cholesterol, Calculated 54 mg/dL 0-100 [facility] Comment on above: LDL ATP III CLASSIFI CATION LDL less than 100 mg/dL Optimal LDL 100-129 mg/dL Near or above optimal LDL 130-159 mg/dL Borderline high LDL 160-189 mg/dL High LDL greater than 189 mg/dL Very high Lymphocytes (Bld) [#/Vol] 2.1 10*3/uL 1.00-4.8 [facility] Lymphocytes/100 WBC (Bld) 25.3 % [facility] MCH (RBC) [Entitic mass] 31.9 pg 24.7-34.3 [facility] MCHC (RBC) [Mass/Vol] 34.4 g/dL 32.0-35.0 [facility] MCV (RBC) [Entitic vol] 92.6 fL 80-100 [facility] Monocytes (Bld) [#/Vol] 0.7 10*3/uL 0.0-0.8 [facility] Monocytes/100 WBC (Bld) 8.3 % [facility] Neutrophils (Bld) [#/Vol] 5.3 10*3/uL 1.8-7.7 [facility] Neutrophils/100 WBC (Bld) 64.6 % [facility] Platelet mean volume (Bld) [Entitic vol] 9.5 fL 6.3-10.7 [facility] Platelets (Bld) [#/Vol] 135 10*3/uL Low 150-450 [facility] Potassium [Moles/Vol] 4.3 mmol/L 3.5-5.1 [facility] Protein [Mass/Vol] 5.6 g/dL Low 6.1-7.9 [facility] RBC (Bld) [#/Vol] 3.46 10*6/uL Low 3.60-5.00 [facility] Sodium [Moles/Vol] 138 mmol/L 136-146 [facility] Triglyceride [Mass/Vol] 47 mg/dL 35-149 [facility] Comment on above: TRIG ATP III CLASSIF ICATION TRIG less than 150 mg/dL Normal TRIG 150-199 mg/dL Borderline high TRIG 200-500 mg/dL High TRIG greater than 500 mg/dL Very high Standard traceable to the Center for Disease Conrtrol and Prevention (CDC) test method. Troponin I.cardiac [Mass/Vol] 0.02 ng/mL 0-0.02 [facility] Comment on above: [place]IS [place] Cut off value > or equal to 0.03 ng/mL in conjunction with clinical conditions of myocardial infarction. (www.escardio.org/guidelines) TSH Qn 1.89 uIU/mL 0.340-5.600 [facility] Urea nitrogen [Mass/Vol] 7 mg/dL Low 9-23 [facility] WBC (Bld) [#/Vol] 8.2 10*3/uL 3.8-11.6 [facility] Amorphous sediment LM Ql (Urine sed) 2+ [facility] Comment on above: PHOSPHATES Amphetamines Ql (U) Negative [facility] Appearance (U) Hazy Abnormal [facility] Bacteria LM.HPF (Urine sed) [#/Area] Rare [facility] Benzodiazepines Ql (U) Negative [facility] Bilirubin Ql (U) Negative [facility] Cocaine Ql (U) Negative [facility] Color (U) Light-yellow [facility] Epithelial cells.squamous LM.HPF (Urine sed) [#/Area] 3-4 /hpf [facility] Glucose (U) [Mass/Vol] Normal mg/dL [facility] Ketones Ql (U) Negative [facility] Leukocyte esterase Test strip Ql (U) Negative [facility] Nitrite Ql (U) Negative [facility] Opiates Ql (U) Negative [facility] pH (U) 7.0 [pH] 5.0-9.0 [facility] Phencyclidine Ql (U) Negative [facility] Protein Ql (U) Negative [facility] RBC (U) [#/Vol] Rare /hpf [facility] Specific gravity (U) [Rel density] 1.010 1.001-1.030 [facility] Urine Barbiturates Screen Positive [facility] Urine Collection Type Type [facility] Comment on above: VOIDED Urine Drug Screen Comment See comment [facility] Comment on above: THESE ARE UNCONFIRME D RESULTS AND SHOULD NOT BE USED FOR LEGAL PURPOSES. DRUG CUT-OFF CONCENTRATION: AMPH 1000 ng/mL SANCHEZ 200 ng/mL RENZO 200 ng/mL COCM 300 ng/mL OP 300 ng/mL PCP 25 ng/mL THC 20 ng/mL Urine Marijuana (THC) Screen Positive [facility] Urine Occult Blood Negative [facility] Urobilinogen Qn (U) Normal mg/dL [facility] WBC (U) [#/Vol] Rare /hpf [facility] Laboratory Studieson 02-19- 016 CK [Catalytic activity/Vol] 51 U/L 22-269 [facility] CK.MB [Mass/Vol] 0.8 ng/mL 0.6-6.3 [facility] Creatine Kinase MB Relative Index 1.5 0.00-2.50 [facility] Vital Signs Date Time Vital Sign Value Performing Clinician Facility 09-12-2023 17:45-0400 Body height 170.2 cm Brenda Stephen APRN - CNM Work Phone: [facility] 09-12-2023 17:45-0400 Body mass index (BMI) [Ratio] 28.82 kg/m2 Brenda Stephen APRN - CNM Work Phone: [facility] [place] 09-12-2023 17:45-0400 Body temperature 98.29 [degF] Brenda Stephen APPLICATION COORDINATOR - CN Work Phone: [facility] [place] 09-12-2023 17:45-0400 Body weight 83.46 kg Brenda Stephen APRN - CN Work Phone: [facility] [place] 09-12-2023 17:45-0400 Diastolic blood pressure 60 mm[Hg] Brenda Stephen APPLICATION COORDINATOR - CNM Work Phone: [facility] [place] 09-12-2023 17:45-0400 Heart rate 75 /min Brenda Stephen APRN - CN Work Phone: [facility] [place] 09-12-2023 17:45-0400 Respiratory rate 16 /min Brenda Stephen APRN - CN Work Phone: [facility] [place] 09-12-2023 17:45-0400 SaO2% (BldA) [Mass fraction] 98 % Brenda Stephen APRN - CN Work Phone: [facility] [place] 09-12-2023 17:45-0400 Systolic blood pressure 110 mm[Hg] Brenda Stephen APRN - CN Work Phone: [facility] 08-24-2023 20:05-0400 Body temperature 98.1 [degF] Jagdeep D'Abreau DO Work Phone: [facility] [place] 08-24-2023 20:05-0400 Diastolic blood pressure 63 mm[Hg] Jagdeep D'Abreau DO Work Phone: [facility] [place] 08-24-2023 20:05-0400 Heart rate 95 /min Jagdeep D'Francoiseeau DO Work Phone: [facility] 08-24-2023 20:05-0400 Respiratory rate 16 /min Jagdeepmaral Callahaneau DO Work Phone: [facility] 08-24-2023 20:05-0400 SaO2% (BldA) [Mass fraction] 98 % Jagdeepmaral Callahaneau DO Work Phone: [facility] 08-24-2023 20:05-0400 Systolic blood pressure 131 mm[Hg] Jagdeep Escobedo'Francoiseeau DO Work Phone: [facility] 08-03-2022 06:56-0400 Body temperature 99 [degF] Samara Paulino MD Work Phone: [facility] 08-03-2022 06:56-0400 Diastolic blood pressure 75 mm[Hg] Samara Paulino MD Work Phone: [facility] 08-03-2022 06:56-0400 Heart rate 129 /min Samara Paulino MD Work Phone: [facility] 08-03-2022 06:56-0400 Respiratory rate 22 /min Samara Paulino MD Work Phone: [facility] 08-03-2022 06:56-0400 SaO2% (BldA) [Mass fraction] 100 % Samara Paulino MD Work Phone: [facility] 08-03-2022 06:56-0400 Systolic blood pressure 131 mm[Hg] Samara Paulino MD Work Phone: [facility] 07-27-2022 18:47-0400 Body height 175.26 cm Mariposa Duncan CNP Work Phone: [facility] Work Phone: 07-27-2022 18:47-0400 Body mass index (BMI) [Ratio] 22 kg/m2 Mariposa Duncan CNP Work Phone: [facility] Work Phone: 07-27-2022 18:47-0400 Body surface area Derived from formula 1.8 m2 Mariposa Duncan CNP Work Phone: [facility] Work Phone: 07-27-2022 18:47-0400 Body temperature 96.3 [degF] Mariposa Duncan CNP Work Phone: [facility] Work Phone: 07-27-2022 18:47-0400 Body weight 67.72 kg Mariposa Duncan CNP Work Phone: [facility] Work Phone: 07-27-2022 18:47-0400 Diastolic blood pressure 63 mm[Hg] Mariposa Duncan CNP Work Phone: [facility] Work Phone: 07-27-2022 18:47-0400 Heart rate 68 /min Mariposa Duncan CNP Work Phone: [facility] Work Phone: 07-27-2022 18:47-0400 SaO2% (BldA) [Mass fraction] 97 % Mariposa Duncan CNP Work Phone: [facility] Work Phone: 07-27-2022 18:47-0400 Systolic blood pressure 117 mm[Hg] Mariposa Duncan CNP Work Phone: [facility] Work Phone: 04-24-2022 13:05-0500 Diastolic blood pressure 60 mm[Hg] Kia Sharma APRN - EDITORIAL SPECIALIST Work Phone: [facility] [place] 04-24-2022 13:05-0500 Systolic blood pressure 122 mm[Hg] Kia Sharma APRN - EDITORIAL SPECIALIST Work Phone: [facility] 04-24-2022 10:44-0500 Body mass index (BMI) [Ratio] 24.78 kg/m2 Kia Leo EDITORIAL SPECIALIST Work Phone: [facility] [place] 04-24-2022 10:44-0500 Body temperature 98.4 [degF] Kia Leo EDITORIAL SPECIALIST Work Phone: [facility] 04-24-2022 10:44-0500 Body weight 73.94 kg Kia Leo EDITORIAL SPECIALIST Work Phone: [facility] [place] 04-24-2022 10:44-0500 Heart rate 79 /min Kia Leo EDITORIAL SPECIALIST Work Phone: [facility] [place] 04-24-2022 10:44-0500 Respiratory rate 20 /min Kia Leo EDITORIAL SPECIALIST Work Phone: [facility] [place] 04-24-2022 10:44-0500 SaO2% (BldA) [Mass fraction] 100 % Kia Leo EDITORIAL SPECIALIST Work Phone: [facility] 03-04-2022 14:15-0500 Diastolic blood pressure 78 mm[Hg] Geoff Miller MD Work Phone: [facility] [place] 03-04-2022 14:15-0500 Heart rate 74 /min Geoff Miller MD Work Phone: [facility] [place] 03-04-2022 14:15-0500 Respiratory rate 16 /min Geoff Miller MD Work Phone: [facility] 03-04-2022 14:15-0500 SaO2% (BldA) [Mass fraction] 100 % Geoff Miller MD Work Phone: [facility] [place] 03-04-2022 14:15-0500 Systolic blood pressure 131 mm[Hg] Geoff Miller MD Work Phone: [facility] 03-04-2022 13:30-0500 Body temperature 97.2 [degF] Geoff Miller MD Work Phone: [facility] [place] 03-04-2022 11:15-0500 Body height 172.7 cm Geoff Miller MD Work Phone: [facility] [place] 03-04-2022 11:15-0500 Body mass index (BMI) [Ratio] 24.94 kg/m2 Geoff Miller MD Work Phone: [facility] [place] 03-04-2022 11:15-0500 Body weight 74.39 kg Geoff Miller MD Work Phone: [facility] [place] 03-01-2022 08:00-0500 Body mass index (BMI) [Ratio] 24.94 kg/m2 Nicholas Denton MD Work Phone: [facility] [place] 03-01-2022 08:00-0500 Body temperature 98.2 [degF] Nicholas Denton MD Work Phone: [facility] [place] 03-01-2022 08:00-0500 Body weight 74.39 kg Nicholas Denton MD Work Phone: [facility] [place] 03-01-2022 08:00-0500 Diastolic blood pressure 61 mm[Hg] Nicholas Denton MD Work Phone: [facility] [place] 03-01-2022 08:00-0500 Heart rate 89 /min Nicholas Denton MD Work Phone: [facility] [place] 03-01-2022 08:00-0500 Respiratory rate 20 /min Nicholas Denton MD Work Phone: [facility] [place] 03-01-2022 08:00-0500 SaO2% (BldA) [Mass fraction] 99 % Nicholas Denton MD Work Phone: [facility] 03-01-2022 08:00-0500 Systolic blood pressure 138 mm[Hg] Nicholas Denton MD Work Phone: [facility] 10-29-2021 07:30-0400 Body temperature 96.6 [degF] PHYSICIAN NO [facility] 10-29-2021 07:30-0400 Diastolic blood pressure 70 mm[Hg] PHYSICIAN NO [facility] 10-29-2021 07:30-0400 Heart rate 84 /min PHYSICIAN NO [facility] 10-29-2021 07:30-0400 Respiratory rate 18 /min PHYSICIAN NO [facility] 10-29-2021 07:30-0400 SaO2% (BldA) [Mass fraction] 97 % PHYSICIAN NO [facility] 10-29-2021 07:30-0400 Systolic blood pressure 110 mm[Hg] PHYSICIAN NO [facility] 10-27-2021 14:15-0400 Body height 172.[address] [facility] 10-26-2021 20:08-0400 Body weight 58.[address] [facility] 08-17-2021 16:45-0400 Body height 175.26 cm Kia Sharma [facility] Work Phone: [facility] Work Phone: 08-17-2021 16:45-0400 Body mass index (BMI) [Ratio] 20 kg/m2 Kia Sharma [facility] Work Phone: [facility] Work Phone: 08-17-2021 16:45-0400 Body surface area Derived from formula 1.75 m2 Kia Sharma [facility] Work Phone: [facility] Work Phone: 08-17-2021 16:45-0400 Body surface area Derived from formula 1.7 m2 Mariposa Dnucan [facility] Work Phone: [facility] Work Phone: 08-17-2021 16:45-0400 Body temperature 96.7 [degF] Kia Sharma [facility] Work Phone: [facility] Work Phone: 08-17-2021 16:45-0400 Body weight 61.33 kg Kia Sharma CNP Work Phone: [facility] Work Phone: 08-17-2021 16:45-0400 Diastolic blood pressure 64 mm[Hg] Kia Sharma CNP Work Phone: [facility] Work Phone: 08-17-2021 16:45-0400 Heart rate 67 /min Kia Sharma CNP Work Phone: [facility] Work Phone: 08-17-2021 16:45-0400 SaO2% (BldA) [Mass fraction] 99 % Kia Sharma CNP Work Phone: [facility] Work Phone: 08-17-2021 16:45-0400 Systolic blood pressure 110 mm[Hg] Kia Sharma CNP Work Phone: [facility] Work Phone: 07-15-2021 15:57-0400 Body height 175.26 cm Kia Sharma CNP Work Phone: [facility] Work Phone: 07-15-2021 15:57-0400 Body mass index (BMI) [Ratio] 19.8 kg/m2 Kia Sharma CNP Work Phone: [facility] Work Phone: 07-15-2021 15:57-0400 Body surface area Derived from formula 1.74 m2 Kia Sharma CNP Work Phone: [facility] Work Phone: 07-15-2021 15:57-0400 Body temperature 98.1 [degF] Kia Sharma CNP Work Phone: [facility] Work Phone: 07-15-2021 15:57-0400 Body weight 60.78 kg Kia Sharma CNP Work Phone: [facility] Work Phone: 07-15-2021 15:57-0400 Diastolic blood pressure 62 mm[Hg] Kia Sharma CNP Work Phone: [facility] Work Phone: 07-15-2021 15:57-0400 Heart rate 68 /min Kia Sharma CNP Work Phone: [facility] Work Phone: 07-15-2021 15:57-0400 Heart Rate Rhythm 1 1 Kia Sharma CNP Work Phone: [facility] Work Phone: 07-15-2021 15:57-0400 SaO2% (BldA) [Mass fraction] 98 % Kia Sharma CNP Work Phone: [facility] Work Phone: 07-15-2021 15:57-0400 Systolic blood pressure 108 mm[Hg] Kia Sharma CNP Work Phone: [facility] Work Phone: 07-01-2021 17:32-0400 Body height 175.26 cm Kia Sharma CNP Work Phone: [facility] Work Phone: 07-01-2021 17:32-0400 Body mass index (BMI) [Ratio] 20.3 kg/m2 Kia Sharma CNP Work Phone: [facility] Work Phone: 07-01-2021 17:32-0400 Body surface area Derived from formula 1.76 m2 Kia Sharma CNP Work Phone: [facility] Work Phone: 07-01-2021 17:32-0400 Body temperature 97.5 [degF] Kia Sharma CNP Work Phone: [facility] Work Phone: 07-01-2021 17:32-0400 Body weight 62.32 kg Kia Sharma CNP Work Phone: [facility] Work Phone: 07-01-2021 17:32-0400 Diastolic blood pressure 58 mm[Hg] Kia Sharma CNP Work Phone: [facility] Work Phone: 07-01-2021 17:32-0400 Heart rate 775 /min Kia Sharma CNP Work Phone: [facility] Work Phone: 07-01-2021 17:32-0400 Heart Rate Rhythm 1 1 Kia Sharma CNP Work Phone: [facility] Work Phone: 07-01-2021 17:32-0400 SaO2% (BldA) [Mass fraction] 97 % Kia Sharma CNP Work Phone: [facility] Work Phone: 07-01-2021 17:32-0400 Systolic blood pressure 116 mm[Hg] Kia Sharma EDITORIAL SPECIALIST Work Phone: [facility] Work Phone: 05-28-2021 18:41-0400 Body height 175.26 cm Kia Sharma CNP Work Phone: [facility] Work Phone: 05-28-2021 18:41-0400 Body mass index (BMI) [Ratio] 19.6 kg/m2 Kia Sharma CNP Work Phone: [facility] Work Phone: 05-28-2021 18:41-0400 Body surface area Derived from formula 1.74 m2 Kia Sharma CNP Work Phone: [facility] Work Phone: 05-28-2021 18:41-0400 Body temperature 97.7 [degF] Kia Sharma CNP Work Phone: [facility] Work Phone: 05-28-2021 18:41-0400 Body weight 60.33 kg Kia Sharma CNP Work Phone: [facility] Work Phone: 05-28-2021 18:41-0400 Diastolic blood pressure 76 mm[Hg] Kia Sharma CNP Work Phone: [facility] Work Phone: 05-28-2021 18:41-0400 Heart rate 83 /min Kia Sharma CNP Work Phone: [facility] Work Phone: 05-28-2021 18:41-0400 SaO2% (BldA) [Mass fraction] 98 % Kia Sharma CNP Work Phone: [facility] Work Phone: 05-28-2021 18:41-0400 Systolic blood pressure 122 mm[Hg] Kia Sharma CNP Work Phone: [facility] Work Phone: 10-14-2020 13:00-0400 Diastolic blood pressure 68 mm[Hg] Anthony Galloway MD Work Phone: [facility] Work Phone: 10-14-2020 13:00-0400 Heart rate 60 /min Anthony Galloway MD Work Phone: [facility] Work Phone: 10-14-2020 13:00-0400 Respiratory rate 16 /min Anthony Galloway MD Work Phone: [facility] Work Phone: 10-14-2020 13:00-0400 SaO2% (BldA) [Mass fraction] 99 % Anthony Galloway MD Work Phone: [facility] Work Phone: 10-14-2020 13:00-0400 Systolic blood pressure 114 mm[Hg] Anthony Galloway MD Work Phone: [facility] Work Phone: 10-14-2020 12:25-0400 Body temperature 97.39 [degF] Anthony Galloway MD Work Phone: [facility] Work Phone: 10-14-2020 09:35-0400 Body height 172.7 cm Anthony Galloway MD Work Phone: [facility] Work Phone: 10-14-2020 09:35-0400 Body mass index (BMI) [Ratio] 20.13 kg/m2 Anthony Galloway MD Work Phone: [facility] Work Phone: 10-14-2020 09:35-0400 Body weight 60.06 kg Anthony Galloway MD Work Phone: [facility] Work Phone: 05-27-2020 22:19-0400 Body Temperature 97.5 [degF] [facility] Work Phone: 05-27-2020 22:19-0400 BP Diastolic 79 mm[Hg] [facility] Work Phone: 05-27-2020 22:19-0400 BP Systolic 133 mm[Hg] [facility] Work Phone: 05-27-2020 22:19-0400 Pulse (Heart Rate) 94 /min [facility] Work Phone: 05-27-2020 22:19-0400 Pulse Oximetry 98 % [facility] Work Phone: 05-27-2020 22:19-0400 Respiratory Rate 16 /min [facility] Work Phone: 04-03-2020 16:21-0500 BMI (Body Mass Index) 21.9 kg/m2 [facility] Work Phone: 04-03-2020 16:21-0500 Body Temperature 97.9 [degF] [facility] Work Phone: 04-03-2020 16:21-0500 Body weight 67.13 kg [facility] Work Phone: 04-03-2020 16:21-0500 BP Diastolic 82 mm[Hg] [facility] Work Phone: 04-03-2020 16:21-0500 BP Systolic 138 mm[Hg] [facility] Work Phone: 04-03-2020 16:21-0500 BSA (Body Surface Area) 1.82 m2 [facility] Work Phone: 04-03-2020 16:21-0500 Height 175.26 cm [facility] Work Phone: 04-03-2020 16:21-0500 Pulse (Heart Rate) 77 /min [facility] Work Phone: 04-03-2020 16:21-0500 Pulse Oximetry 96 % [facility] Work Phone: 04-03-2020 16:21-0500 Respiratory Rate 18 /min [facility] Work Phone: 04-03-2020 16:21-0500 SaO2% (BldA) [Mass fraction] 96 % Kia Sharma CNP Work Phone: [facility] Work Phone: 03-20-2020 11:57-0500 BMI (Body Mass Index) 21.4 kg/m2 Kia [facility] Work Phone: 03-20-2020 11:57-0500 Body weight 65.77 kg [facility] Work Phone: 03-20-2020 11:57-0500 BSA (Body Surface Area) 1.8 m2 [facility] Work Phone: 03-20-2020 11:57-0500 Height 175.26 cm Kia [facility] Work Phone: 02-25-2020 21:28-0500 BMI (Body Mass Index) 23.22 kg/m2 [facility] [place] 02-25-2020 21:28-0500 Body Temperature 98.2 [degF] [facility] 02-25-2020 21:28-0500 Body weight 70.31 kg [facility] [place] 02-25-2020 21:28-0500 BP Diastolic 76 mm[Hg] [facility] [place] 02-25-2020 21:28-0500 BP Systolic 144 mm[Hg] [facility] [place] 02-25-2020 21:28-0500 Height 174 cm [facility] [place] 02-25-2020 21:28-0500 Pulse (Heart Rate) 73 /min [facility] [place] 02-25-2020 21:28-0500 Pulse [facility]xim[facility] 100 % [facility] [place] 02-25-2020 21:28-0500 Respiratory Rate 16 /min [facility] [place] 02-06-2020 17:44-0500 Respiratory Rate 16 /min [facility] [place] 02-06-2020 17:19-0500 BMI (Body Mass Index) 23.57 kg/m2 [facility] [place] 02-06-2020 17:19-0500 Body Temperature 99.61 [degF] [facility] 02-06-2020 17:19-0500 Body weight 70.31 kg [facility] 02-06-2020 17:19-0500 BP Diastolic 60 mm[Hg] [facility] [place] 02-06-2020 17:19-0500 BP Systolic 120 mm[Hg] [facility] [place] 02-06-2020 17:19-0500 Height 172.7 cm [facility] 02-06-2020 17:19-0500 Pulse (Heart Rate) 81 /min [facility] 02-06-2020 17:19-0500 Pulse Oximetry 98 % [facility] 12-24-2019 12:27-0400 BMI (Body Mass Index) 23.42 kg/m2 [facility] [place] 12-24-2019 12:27-0400 Body Temperature 97.9 [degF] [facility] 12-24-2019 12:27-0400 Body weight 69.85 kg [facility] 12-24-2019 12:27-0400 BP Diastolic 64 mm[Hg] [facility] 12-24-2019 12:27-0400 BP Systolic 122 mm[Hg] [facility] 12-24-2019 12:27-0400 Pulse (Heart Rate) 68 /min [facility] 12-24-2019 12:27-0400 Pulse Oximetry 99 % [facility] 12-24-2019 12:27-0400 Respiratory Rate 16 /min [place], [place] NEGATED: Highlighted row BMI (Body Mass Index) [facility] NEGATED: Highlighted row BMI (Body Mass Index) [facility] NEGATED: Highlighted row BMI (Body Mass Index) [facility] NEGATED: Highlighted row Body Temperature [...] Date Encounter Type Care Provider Facility Start: 11-06-2023 End: 11-06-2023 ambulatory YURIY DALJIT Not Available Start: 11-01-2023 End: 11-01-2023 ambulatory YURIY DALJIT Not Available Start: 10-23-2023 End: 10-23-2023 ambulatory YURIY DALJIT Not Available Start: 10-16-2023 End: 10-16-2023 ambulatory GENESIS RUSTY Not Available Start: 10-02-2023 End: 10-02-2023 ambulatory YURIY DALJIT Not Available Start: 09-29-2023 End: 09-29-2023 ambulatory [facility] Start: 09-18-2023 End: 09-18-2023 ambulatory GENESIS ORELLANAEY Not Available Start: 09-12-2023 End: 09-12-2023 ambulatory BRENDA [facility] Start: 09-12-2023 End: 09-12-2023 Subsequent hospital visit by physician Brenda Gerald [facility] APPLICATION COORDINATOR - CNM Work Phone: [facility] Labor [facility] Delivery Start: 09-04-2023 End: 09-04-2023 ambulatory VIPIN [facility] Start: 09-04-2023 End: 09-04-2023 ambulatory YURIY DALJIT Not Available Start: 09-02-2023 End: 09-03-2023 [facility] Start: 08-24-2023 End: 08-24-2023 [facility] Start: 08-24-2023 End: 08-24-2023 Subsequent hospital visit by physician Jagdeep EscobedoAdriano Work Phone: [facility] Labor [facility] Delivery Start: 08-03-2023 End: 08-03-2023 ambulatory GENESIS RUSTY Not Available Start: 07-06-2023 End: 07-06-2023 ambulatory YURIY DALJIT Not Available Start: 06-30-2023 End: 06-30-2023 Emergency department patient visit [facility] Start: 06-20-2023 End: 06-20-2023 ambulatory YURIY DALJIT Not Available Start: 05-23-2023 End: 05-23-2023 ambulatory YURIY DALJIT Not Available Start: 05-18-2023 End: 05-18-2023 Emergency department patient visit [facility] Start: 05-01-2023 End: 05-01-2023 [facility] Start: 05-01-2023 End: 05-01-2023 Subsequent hospital visit by physician Kia Sharma APPLICATION COORDINATOR - EDITORIAL SPECIALIST Work Phone: [facility] Laboratory Start: 04-27-2023 End: 04-27-2023 ambulatory YURIY SABILLON Not Available Start: 08-03-2022 End: 08-03-2022 Emergency department patient visit Samara Paulino MD Work Phone: [facility] ED Comment on above: Flank pain (Primary Dx); Urinary tract infection without hematuria, site unspecified Start: 07-27-2022 End: 07-27-2022 [facility] visit, estab pt Mariposa Duncan EDITORIAL SPECIALIST Work Phone: [facility] include [facility] beds at the [facility] Work Phone: Start: 06-03-2022 End: 06-05-2022 Subsequent hospital visit by physician Kulwinder Das Radiologist [facility] Ultrasound Comment on above: Abscess of female br east Start: 04-24-2022 End: 04-24-2022 Emergency department patient visit Kia hSarma APPLICATION COORDINATOR - EDITORIAL SPECIALIST Work Phone: [facility] ED Comment on above: Nausea vomiting and diarrhea (Primary Dx) Start: 03-15-2022 End: 03-15-[address] YURIY SABILLON Facility:[facility] Start: 03-04-2022 End: 03-04-2022 Subsequent hospital visit by physician Geoff Miller MD Work Phone: [facility] OR Comment on above: Abscess of right lynette ast (Primary Dx) Start: 03-01-2022 End: 03-01-2022 Emergency department patient visit Nicholas Denton MD Work Phone: [facility] ED Comment on above: Cellulitis of right breast (Primary Dx) Start: 10-26-2021 End: 10-29-2021 Evaluation and management of inpatient PHYSICIAN NO FAMILY Facility:[facility] Start: 10-26-2021 End: 10-29-2021 Evaluation and management of inpatient PHYSICIAN NO FAMILY [facility] Start: 08-17-2021 End: 08-17-2021 [facility] visit, estab pt Halima Argueta [facility] Work Phone: [facility] Work Phone: Start: 08-17-2021 End: 08-17-2021 [facility] visit, estab pt Kia Sharma EDITORIAL SPECIALIST Work Phone: [facility] Work Phone: Start: 07-15-2021 End: 07-15-2021 [facility] visit, estab pt Halima Condonmons [facility] Work Phone: [facility] Work Phone: Start: 07-15-2021 End: 07-15-2021 [facility] visit, estab pt Kia Sharma EDITORIAL SPECIALIST Work Phone: [facility] Work Phone: Start: 07-01-2021 End: 07-01-2021 [facility] visit, estab pt Kia Sharma EDITORIAL SPECIALIST Work Phone: [facility] Work Phone: Start: 05-29-2021 End: 05-29-2021 ambulatory KIA SHARMA [facility] Start: 05-28-2021 End: 05-28-2021 Subsequent hospital visit by physician AGNES CHEN ELIEZER FERNANDEZ [facility] Start: 05-28-2021 End: 05-28-2021 [facility]QHC visit, estab pt Kia Sharma EDITORIAL SPECIALIST Work Phone: 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 Schedule [facility] PRE ADMIT Start: 10-09-2020 End: 10-13-2020 Subsequent hospital visit by physician [facility] Víctor19 Pat Screening Schedule [facility] PRE ADMIT Comment on above: Preop testing Start: 09-25-2020 End: 09-25-[address] [facility] Schedule [facility] PRE ADMIT Start: 09-25-2020 End: 09-25-2020 Subsequent hospital visit by physician 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 Work Phone: Start: 04-03-2020 End: 04-03-2020 General Kia Sharma [facility] Work Phone: [facility] Work Phone: Start: 04-03-2020 End: 04-03-2020 General Halima Argueta [facility] Work Phone: [facility] Work Phone: Start: 04-02-2020 End: 04-02-2020 Subsequent hospital visit by physician [facility] Comment on above: Women's annual routi ne gynecological examination Start: 03-20-2020 End: 03-20-2020 General Halima Argueta Work Phone: [facility] Work Phone: Start: 03-20-2020 End: 03-20-2020 Telemedicine consultation with patient Kia Sharma Work Phone: [facility] Work Phone: Start: 02-25-2020 End: 02-25-2020 Emergency department patient visit Sid Norris Work Phone: [facility] ED Comment on above: Bacterial vaginosis (Primary Dx); Vaginal bleeding Start: 02-06-2020 End: 02-06-2020 Emergency department patient visit [facility] ED Comment on above: Dental abscess (Prim rachele Dx); Dental caries Start: 12-24-2019 End: 12-24-2019 Emergency department patient visit [facility] ED Comment on above: Dental infection (Pr imary Dx) Start: 02-13-2018 End: 02-15-2018 [facility] Start: 02-20-2016 End: 02-23-2016 Evaluation and management of inpatient [facility] Start: 05-12-2015 End: 05-15-2015 Evaluation and management of inpatient [facility] Start: 02-11-2014 End: 02-14-2014 Evaluation and management of inpatient [facility] Start: 04-28-2007 End: 05-28-2007 [facility] Start: 02-27-2007 End: 03-29-2007 [facility] Start: 01-27-2007 End: 02-26-2007 [facility] Start: 11-27-2006 End: 12-27-2006 Discharged Recurring [facility] Start: 09-27-2006 End: 10-27-2006 [facility] Start: 08-27-2006 End: 09-26-2006 [facility] Start: 07-28-2006 End: 09-26-2006 Discharged Recurring Bryce [facility] Start: 06-27-2006 End: 07-27-2006 Discharged Recurring Bryce [facility] Start: 05-28-2006 End: 06-26-2006 Discharged Recurring Bry[facility] Start: 04-27-2006 End: 05-27-2006 Discharged Recurring [facility] Start: 03-30-2006 End: 04-26-2006 [facility] Start: 02-27-2006 End: 03-29-2006 [facility] Start: 01-27-2006 End: 02-26-2006 [facility] Start: 12-28-2005 End: 01-26-2006 [facility] Start: 11-27-2005 End: 12-27-2005 [facility] Start: 10-28-2005 End: 11-26-2005 [facility] Start: 09-27-2005 End: 11-26-2005 Discharged Recurring [facility] Start: 09-27-2005 End: 10-27-2005 [facility] Start: 08-27-2005 End: 09-26-2005 Discharged Recurring [facility] Start: 06-27-2005 End: 07-27-2005 [facility] Start: 04-27-2005 End: 05-27-2005 [facility] Start: 03-30-2005 End: 04-26-2005 [facility] Start: 02-27-2005 End: 03-29-2005 [facility] Start: 01-27-2005 End: 02-26-2005 Discharged Recurring [facility] Start: 12-28-2004 Registered Recurring [facility] Start: 11-27-2004 End: 12-27-2004 Discharged Recurring [facility] Start: 11-27-2004 End: 12-27-2004 Discharged Recurring [facility] Start: 11-27-2004 Registered Recurring [facility] Start: 10-28-2004 End: 11-26-2004 Discharged Recurring [facility] Start: 10-28-2004 End: 11-26-2004 Discharged Recurring [facility] Start: 09-27-2004 End: 10-27-2004 Discharged Recurring [facility] Start: 09-27-2004 End: 10-27-2004 Discharged Recurring [facility] Start: 09-02-2004 End: 09-26-2004 Discharged Recurring [facility] Start: 09-02-2004 End: 09-26-2004 Discharged Recurring [facility] Start: 05-17-2000 End: 05-27-2000 Discharged Recurring [facility] Procedures Date Procedure Procedure Detail Performing Clinician Start: 09-12-2023 Urnls dip stick/tabl et rgnt auto w/o microscopy Brenda Stephen APPLICATION COORDINATOR - CNM Work Phone: Start: 09-02-2023 H/O: section History of delivery affecting Brenda Stephen APPLICATION COORDINATOR - CNM Work Phone: Start: 08-24-2023 Urinalysis microscop ic only Jagdeep Manrique DO Work Phone: Start: 08-24-2023 Urnls dip stick/tabl et rgnt auto w/o microscopy Jagdeep FannySandritaning DO Work Phone: Start: 05-01-2023 Blood typing [...] pressure < 80 mm hg Mariposa Duncan EDITORIAL SPECIALIST Work Phone: Start: 07-27-2022 Most recent systolic blood pressure <130 mm hg Mariposa Duncan EDITORIAL SPECIALIST Work Phone: Start: 07-27-2022 Urine test visual color cmprsn meths Mariposa Duncan EDITORIAL SPECIALIST Work Phone: Start: 06-03-2022 Diagnostic mammograp hy [...] test visual color cmprsn meths Peterson Benito APPLICATION COORDINATOR - EDITORIAL SPECIALIST Work Phone: Start: 08-17-2021 Most recent diastoli c blood pressure < 80 mm hg Kia Sharma EDITORIAL SPECIALIST Work Phone: Start: 08-17-2021 Most recent systolic blood pressure <130 mm hg Kia Sharma EDITORIAL SPECIALIST Work Phone: Start: 08-17-2021 Psychotherapy w/hussein ent 30 minutes Halima Argueta [facility] Work Phone: Start: 07-15-2021 Most recent diastoli c blood pressure < 80 mm hg Kia Sharma EDITORIAL SPECIALIST Work Phone: Start: 07-15-2021 Most recent systolic blood pressure <130 mm hg Kia Sharma EDITORIAL SPECIALIST Work Phone: Start: 07-15-2021 Psychotherapy w/hussein ent 30 minutes [facility]gueta [facility] Work Phone: Start: 07-01-2021 Most recent diastoli c blood pressure < 80 mm hg Kia Sharma EDITORIAL SPECIALIST Work Phone: Start: 07-01-2021 Most recent systolic blood pressure <130 mm hg Kia Sharma EDITORIAL SPECIALIST Work Phone: Start: 05-28-2021 Antibody hiv-1&hiv-2 single result Kia Sharma EDITORIAL SPECIALIST Work Phone: Start: 05-28-2021 Most recent diastoli c blood pressure < 80 mm hg Kia Sharma EDITORIAL SPECIALIST Work Phone: Start: 05-28-2021 Most recent systolic blood pressure <130 mm hg Kia Sharma EDITORIAL SPECIALIST Work Phone: Start: 05-28-2021 Pt-focused hlth risk assmt score doc stnd instrm Kia Sharma [facility] Work Phone: Start: 05-28-2021 Viral screening Visit For: Scr eening Exam For Herpes Kia Sharma EDITORIAL SPECIALIST Work Phone: Start: 03-10-2021 End: 03-10-2021 Gonadotropin follicle stimulating hormone Anthony Galloway MD Work Phone: Start: 10-14-2020 Urine test visual color cmprsn meths Anthony Galloway MD Work Phone: Start: 10-09-2020 COVID-19 Sabas siddiqi MD Work Phone: Start: 04-02-2020 Microscopic observat ion [Identifier] in Cervix by Cyto stain Start: 03-20-2020 delivery only Kia Sharma Start: 03-20-2020 section Kia Sharma [facility] Work Phone: Start: 03-20-2020 Psychotherapy w/hussein ent 30 minutes Halima Argueta Work Phone: Start: 02-25-2020 Smr prim src wet boby nt nfct agt [facility] Work Phone: Start: 02-25-2020 Urinalysis microscop ic only [facility] Work Phone: Start: 02-25-2020 Urine test visual color cmprsn meths [facility] Work Phone: Start: 02-25-2020 Urnls dip stick/tabl et rgnt auto w/o microscopy [facility] Work Phone: Start: 02-15-2018 DISCHARGE PATIENT JUSTINE LOO Start: 02-13-2018 IP CONSULT TO HISTOR Y AND PHYSICAL FEI AMINPTA Start: 02-13-2018 DIET GENERAL FEI WELT WHEELER Start: 02-13-2018 FULL CODE FEI WELT WHEELER Start: 02-13-2018 URINE DRUG SCREEN JUSTINE AMINPTA Start: 02-13-2018 Urine test visual color cmprsn meths FEI AMINPTA Start: 02-13-2018 VITAL SIGNS FEI WELT WHEELER Start: 02-13-2018 PATIENT STATUS (DIRECT) FEI LOO SARS Antigen (LFIA) PHYSICIA N NO FAMILY Plan of Treatment Date Care Activity Detail Author Start: 2053 Respiratory Syncytia l Virus (RSV) or age 60 yrs+ (1 - 1-dose 60+ series) Respiratory Syncytial Virus (RSV) or age 60 yrs+ (1 - 1-dose 60+ series) [facility] Start: 03-21-2027 DTaP/Tdap/Td vaccine (2 - Td or Tdap) DTaP/Tdap/Td vaccine (2 - Td or Tdap) [facility] Start: 03-21-2027 DTaP/Tdap/Td vaccine (2 - Td) DTaP/Tdap/Td vaccine (2 - Td) [facility] [place] Start: 04-02-2025 Screening for malign ant neoplasm of cervix [facility] Start: 10-29-2023 Respiratory Syncytia l Virus (RSV) or age 60 yrs+ (1 - Risk 1-dose series) Respiratory Syncytial Virus (RSV) or age 60 yrs+ (1 - Risk 1-dose series) [facility] Start: 09-28-2023 Influenza vaccination B [facility] Start: 08-25-2023 Tdap Vaccine during Tdap Vaccine during [facility] Start: 04-02-2023 Screening for malign ant neoplasm of cervix [facility] Start: 09-27-2022 Influenza vaccination B [facility] Start: 08-25-2022 FQHC visit, estab pt Medical E stablished Patient [facility] Work Phone: Start: 07-27-2022 End: 07-27-2022 Patient education based on identified need [facility] Start: 07-27-2022 CBC W Auto Different ial panel - Blood [facility] Start: 04-25-2022 End: 04-25-2022 Patient encounter procedure 04/25/2022 Appointment Radiology Radiologist, [facility] Start: 03-04-2022 End: 03-04-2022 Incision & drainage abscess simple/single BREAST INCISION AND DRAINAGE Abscess of right breast 03/04/2022 12:36 PM [facility] Start: 10-29-2021 [facility] Work Phone: Start: 10-28-2021 Influenza vaccination Flu vacc ine (Season Ended) [facility] Start: 10-26-2021 Referral to Instructor Adjunct Pharmacy Technician [facility] Work Phone: Start: 10-26-2021 Hospital admission [facility] Work Phone: Start: 09-27-2021 Influenza vaccination Flu vaccine (# 1) [facility] Start: 09-16-2021 FQHC visit, estab pt Medical E stablished Patient [facility] Work Phone: Start: 08-17-2021 FQHC visit, estab pt Medical E stablished Patient [facility] Work Phone: Start: 08-17-2021 End: 08-17-2021 Patient education based on identified need [facility] Start: 07-15-2021 FQHC visit, estab pt Medical E stablished Patient [facility] Work Phone: Start: 07-15-2021 End: 07-15-2021 Patient education based on identified need [facility] Start: 07-01-2021 End: 07-01-2021 Patient education based on identified need [facility] Start: 05-28-2021 End: 05-28-2021 Patient education based on identified need [facility] Start: 04-14-2021 End: 04-14-2021 Patient encounter procedure 04/14/2021 Office Visit Obstetrics and Gynecology Anthony Galloway MD [address] [place] [address] [facility] OBSTETRICS & [facility]YNECOLOGY [facility] of [facility] Start: 03-05-2021 FQHC visit, estab pt Medical E stablished Patient [facility] Work Phone: Start: 10-28-2020 Influenza vaccination [facility] Start: 10-14-2020 End: 10-14-2020 Admission to same day surgery center 10/14/2020 Surgery IP Unit Anthony Galloway MD [address] [place] [address] DILATATION AND CURETTAGE LEEP-ENDOCERVICAL CURETTAGE [facility] OR Comment on above: DILATATION AND CURET TAGE LEEP-ENDOCERVICAL CURETTAGE Start: 10-14-2020 Subsequent hospital visit by physician 10/14/2020 Hospital Encounter IP Unit Anthony Galloway MD [address] [place] [address] [facility] Start: 10-09-2020 End: 10-09-2020 Patient encounter procedure 10/09/2020 Appointment Pre-Admission Testing [facility] PRE ADMIT Start: 09-25-2020 End: 09-25-2021 COVID-19 COVID-19 Lab Routine Preop testing Expected: 09/25/2020, Expires: 09/25/[address] [facility] Work Phone: Comment on above: Expected: 09/25/2020 , Expires: 09/25/2021 Start: 04-23-2020 End: 04-23-2020 Procedure visit 04/23/2020 Procedure visit Obstetrics and Gynecology Anthony Galloway MD [address] [place] [address] [address] [place] [address] [phone] [facility] OBSTETRICS & [facility]YNECOLOGY Start: 04-03-2020 End: 04-03-2020 Patient education based on identified need [facility] include 234 beds at the [facility] Start: 04-03-2020 Medical Establ ished Patient [facility] Work Phone: Start: 03-20-2020 End: 03-20-2020 Patient education based on identified need [facility] include 234 beds at the [facility] Start: 10-29-2019 Influenza vaccination Flu vaccine (# 1) [place], [place] Start: 2014 Screening for malign ant neoplasm of cervix Cervical cancer screen [place], [place] Start: 2011 Hepatitis C screening Hepatitis C sc aleisha [facility] Start: 2009 COVID-19 Vaccine (1) COVID-19 Vaccin e (1) [facility] Work Phone: Start: 2008 HIV screening HIV screen [facility] Start: 2005 COVID-19 Vaccine (1) COVID-19 Vaccin e (1) [facility] Work Phone: Start: 2005 Depression Monitoring Depression Mon [facility] Start: 2005 Depression Screen Depression Screen [facility] Start: 2004 HPV vaccine (1 - 2-d ose series) HPV vaccine (1 - 2-dose series) [place], [place] Start: 1999 Pneumococcal 0-64 ye ars Vaccine (1 - PCV) Pneumococcal 0-64 years Vaccine (1 - PCV) [facility] Start: 1999 Pneumococcal 0-64 ye ars Vaccine (1 of 1 - PPSV23) Pneumococcal 0-64 years Vaccine (1 of 1 - PPSV23) [place], [place] Start: 1999 Pneumococcal 0-64 ye ars Vaccine (1 of 2 - PCV) Pneumococcal 0-64 years Vaccine (1 of 2 - PCV) [facility] Start: 1999 Pneumococcal 0-64 ye ars Vaccine (1 of 2 - PPSV23) Pneumococcal 0-64 years Vaccine (1 of 2 - PPSV23) [facility] Start: 1998 COVID-19 Vaccine (1) COVID-19 Vaccin e (1) [facility] Start: 1994 Varicella vaccine (1 of 2 - 2-dose childhood series) Varicella vaccine (1 of 2 - 2-dose childhood series) [facility] Start: 1993 COVID-19 Vaccine (#1) COVID-19 Vacci ne (#1) [facility] Start: 1993 Hepatitis B vaccine (1 of 3 - 3-dose series) Hepatitis B vaccine (1 of 3 - 3-dose series) [facility] Start: 1993 Hepatitis C screening Hepatitis C [facility] End: 08-24-2023 Bacteria identified in Urine by Culture Urine culture Microbiology Routine One Time for 1 Occurrences starting 08/24/2023 until 08/24/2023 [facility] Comment on above: One Time for 1 Occur rences starting 08/24/2023 until 08/24/2023 End: 09-12-2023 Bacteria identified in Urine by Culture Urine culture Microbiology Routine One Time for 1 Occurrences starting 09/12/2023 until 09/12/2023 [facility] [employer] [employer] Comment on above: One Time for 1 Occur rences starting 09/12/2023 until 09/12/2023 End: 02-25-2020 C.trachomatis N.gonorrhoeae DNA C.trachomatis N.gonorrhoeae DNA Microbiology STAT One Time for 1 Occurrences starting 02/25/2020 until 02/25/2020 [facility] Comment on above: One Time for 1 Occur rences starting 02/25/2020 until 02/25/2020 C.trachomatis N.gonorrhoeae DNA C.trachomatis N.gonorrhoeae DNA Microbiology STAT 02/25/2020 10:29 PM EST [facility] [place] Culture, Anaerobic a nd Aerobic [facility] [employer] Work Phone: Comment on above: Release Upon Orderin g for 1 Occurrences starting 03/04/2022 End: 03-25-2021 Culture, Genital [employer] Phone: Comment on above: 1 Occurrences starti ng 03/25/2021 until 03/25/2021 End: 08-03-2022 Culture, Urine [employer] Phone: Comment on above: Once for 1 Occurrenc es starting 08/03/2022 until 08/03/2022 End: 05-01-2023 Culture, Urine [employer] Phone: Comment on above: Once for 1 Occurrenc es starting 05/01/2023 until 05/01/2023 End: 05-29-2021 Culture, Virus, Non Respiratory Culture, Virus, Non Respiratory Microbiology Routine Once for 1 Occurrences starting 05/29/2021 until 05/29/2021 [employer] Phone: Comment on above: Once for 1 Occurrenc es starting 05/29/2021 until 05/29/2021 Culture, Virus, Non Respiratory Culture, Virus, Non Respiratory Microbiology Routine 05/28/2021 11:57 PM EDT [employer] Phone: End: 04-02-2020 Cytopathology procedure, preparation of smear, genital source PAP SMEAR Lab Routine Women's annual routine gynecological examination 1 Occurrences starting 04/02/2020 until 04/02/2020 [employer] Comment on above: 1 Occurrences starti ng 04/02/2020 until 04/02/2020 nonstress test nonst ress test OB Routine Daily until discontinued starting 08/25/2023 [employer] Phone: Comment on above: Daily until disconti nued starting 08/25/2023 nonstress test nonst ress test OB Routine Daily until discontinued starting 09/13/2023 [employer] Phone: Comment on above: Daily until disconti nued starting 09/13/2023 End: 05-01-2023 HIV Screen [facility] Comment on above: Once for 1 Occurrenc es starting 05/01/2023 until 05/01/2023 End: 03-04-2022 INITIATE PACU OXYGEN THERAPY PROTOCOL Initiate PACU Oxygen Therapy Protocol Respiratory Care Routine Continuous until discontinued starting 03/04/2022 [employer] Phone: Comment on above: Continuous until dis continued starting 03/04/2022 Oxygen therapy [Mini mum Data Set] Initiate Oxygen Therapy Protocol Respiratory Care Routine Daily until discontinued starting 10/14/2020 [employer] Phone: Comment on above: Daily until disconti nued starting 10/14/2020 Oxygen therapy [Mini mum Data Set] Initiate Oxygen Therapy Protocol Respiratory Care Routine As Needed until discontinued starting 03/04/2022 [employer] Work Phone: Comment on above: As Needed until disc ontinued starting 03/04/2022 Patient Education Schizophrenia (DC) [facility] [place] Instructions [facility] Work Phone: Patient referral [facility] Work Phone: Phase I & II - meter ed glucose Phase I & II - metered glucose Point of Care Testing Routine As Needed until discontinued starting 10/14/2020 [employer] Phone: Comment on above: As Needed until disc ontinued starting 10/14/2020 End: 08-19-2020 Surgical Pathology Surgical Pathology Lab Routine HGSIL (high grade squamous intraepithelial lesion) on Pap smear of cervix 1 Occurrences starting 08/19/2020 until 08/19/2020 [employer] Phone: Comment on above: 1 Occurrences starti ng 08/19/2020 until 08/19/2020 Surgical Pathology Surgical Path ology Lab Routine Release Upon Ordering for 1 Occurrences starting 10/14/2020 [employer] Phone: Comment on above: Release Upon Orderin g for 1 Occurrences starting 10/14/2020 End: 08-24-2023 SVE SVE Point of Care Testing Routine One Time for 1 Occurrences starting 08/24/2023 until 08/24/2023 [facility] Comment on above: One Time for 1 Occur rences starting 08/24/2023 until 08/24/2023 End: 09-12-2023 SVE SVE Point of Care Testing Routine One Time for 1 Occurrences starting 09/12/2023 until 09/12/2023 [facility] Comment on above: One Time for 1 Occur rences starting 09/12/2023 until 09/12/2023 End: 05-01-2023 T. pallidum Ab [employer] Comment on above: Once for 1 Occurrenc es starting 05/01/2023 until 05/01/2023 Immunizations Immunization Date Immunization Notes Care Provider Ralf kim 02-26-2019 Influenza, injectabl e, Madin Yuki Canine Kidney, preservative free, quadrivalent PHYSICIAN NO [facility] Payers Date Payer Category Payer Private Health Insurance [id number] 2021 Self-pay 1993 Unknown [id number] 2.16.8 [id number] 1993 Unknown [id number] 2.16. [id number] 1993 Unknown [id number] 2.16.84 [id number] 1993 Unknown [id number] 2.16.8 [id number] 1993 Unknown [id number] 2.16.8 40.1.691076.3.579.2.173 1993 Unknown [id number] 2.16.8 40.1.101118.3.579.2.173 1993 Unknown [id number] 2.16.8 40.1.469347.3.579.2.173 1993 Unknown [id number] 2.16.8 40.1.664825.3.579.2.173 1993 Unknown [id number] 2.16.8 40.1.571836.3.579.2.173 1993 Unknown [id number] 2.16.8 40.1.363321.3.579.2.173 1993 Unknown [id number] 2.16.8 40.1.729988.3.579.2.173 1993 Unknown [id number] 2.16.84 0.1.103288.3.579.2.9 1993 Unknown [id number] 2.16.84 0.1.084892.3.579.2.9 1993 Unknown [id number] 2.16.84 0.1.860610.3.579.2.9 1993 Unknown [id number] 2.16.84 0.1.651805.3.579.2.9 1993 Unknown [id number] 2.16.84 0.1.917966.3.579.2.9 1993 Unknown [id number] 2.16.84 0.1.417382.3.579.2.9 1993 Unknown [id number] 2.16.84 0.1.943132.3.579.2.9 1993 Unknown [id number] 2.16.84 0.1.786971.3.579.2.9 1993 Unknown [id number] 2.16.84 0.1.532922.3.579.2.9 1993 Unknown [id number] 2.16.84 0.1.241141.3.579.2.9 1993 Unknown [id number] 2.16.84 0.1.628227.3.579.2.1259 1993 Unknown [id number] 2.16.84 0.1.304187.3.579.2.1259 1959 Medicaid [id number] Unknown [id number] 2.16.8 [id number] Social History Date Type Detail Facility Start: 12-24-2019 End: 03-01-2022 Tobacco smoking status NHIS Current every day smoker [facility] of tobacco [facility] Start: 12-24-2019 End: 09-04-2023 Cigarettes smoked current (pack per day) [facility] Start: 12-24-2019 End: 09-12-2023 Tobacco use and exposure [facility] Start: 12-24-2019 End: 09-12-2023 Alcohol intake Current non-drinker of alcohol (finding) [facility] Start: 1995 Sex [facility]igned [facility] Start: 02-19-2022 End: 04-24-2022 Exposure to SARS-CoV-2 (event) Not sure [place], [place] Assertion Exposure to poll ution (event) [facility] Tobacco user (finding) [facility] Tobacco smoking status Unknown i f ever smoked [facility] Work Phone: Assertion Social drinker (finding) [facility] [facility] Sexually active (finding) [facility] Assertion [facility] Assertion Gender identity finding (finding) [facility] Finding of sexua l orientation (finding) [facility] Moderate cigaret te smoker (10-19 cigs/day) (finding) [facility] Heavy cigarette smoker (20-39 cigs/day) (finding) [facility] Start: 10-27-2021 Assertion Smoker (finding) [facility] Start: 1995 Sex Assigned At Female F [facility] Start: 03-01-2022 History SDOH Alcohol Frequency 1 [facility] [employer] Work Phone: Start: 03-01-2022 History SDOH Alcohol Std Drinks 0 [facility] [employer] Work Phone: Start: 03-04-2022 Alcohol Comment barely ever- sociall y [facility] [employer] Work Phone: Start: 03-01-2022 End: 09-04-2023 Alcohol Use Disorder Identification Test - Consumption [AUDIT-C] [facility] How often to you hav e a drink containing alcohol? Never [facility] Start: 09-12-2023 [facility] Start: 03-03-2023 [facility] NEGATED: Highlighted row Assertion [facility] NEGATED: Highlighted row Assertion Current drinker of alcohol (finding) [facility] NEGATED: Highlighted row Assertion Exposure to pollution (event) [facility] Work Phone: Goals Date Patient Goal Desired Activity /State Functional Status Date Assessment Result Facility 10-29-2021 Functional status Patient at Baseline [facility] Work Phone: Mental Status Date Assessment Result Facility 10-29-2021 Cognitive function Cognitive Sta tus Patient at Baseline [facility] Work Phone: Cognitive function Cognitive fun ctioning was normal Cognitive function finding (finding) [facility] Work Phone: Clinical Notes 03-20-2020 to [...] may be discharged. 28[facility] [place] with c/o vaginal discharge, increased vaginal discomfort, [...] pt that she would be [place] as we do not deliver less than 35 weeks unless emergent. Pt placed on EF at this time, urine specimen collected and sent to lab. documented in this encounter [facility] 09-12-2023 Hospital Discharg e Ana Olivarez RN - 09/12/2023 6:51 PM EDT OUTPATIENT DISCHARGE Dr Delano Gutierrez Hailee [facility] [address] [facility] [address] [phone] ACTIVITY LIMITATIONS: ( )Up and about as [...] be sent through Care Everywhere.: Abdominal Pain (Croatian)documented in this encounter [facility] 08-24-2023 Hospital Discharg Iman Carlos RN - 08/24/2023 8:40 PM EDT OUTPATIENT DISCHARGE Dr. Laverne Meyer [facility] Dr. Delano Kruse [facility] [address] [facility] [address] [place] ACTIVITY LIMITATIONS: ( x )Up and about [...] AND DELIVERY . documented in this encounter [facility] 08-03-2022 Hospital Discharg e instructions Samara Paulino [...] cannot be sent through Care Everywhere.Flank Pain (Croatian)UTI (Urinary Tract Infection): Female (Croatian)documented in this encounter [facility] [employer] Work Phone: 07-27-2022 Instructions Includes: Instructions for all patient encounters Discussed nutritional needs teach healthy choices including fruits and vegetables Last Documented On 3 6:56PM ; [facility] Patient education about a pr oper diet Last Documented On 3 6:56PM ; [facility] Patient education about an a sthma action plan Last Documented On 3 8:31AM ; [facility] Discussed concerns about exe rcise : promote physical activity ~ ~Will add symbicort ~ ~Follow up in one month Last Documented On 3 10:19AM ; [facility] Discussed current self-care methods/coping skills. ~Validated and normalized pt?s feelings while assisting patient process recent events. ~Discussed ongoing counseling. ~Discussed lifestyle changes to address chronic illness. ~Supported patient's personal health goals Last Documented On 2 4:59PM ; [facility] Discussed nutritional needs teach healthy choices including fruits and vegetables Last Documented On 2 4:50PM ; [facility] Patient education about a pr oper diet Last Documented On 2 4:50PM ; [facility] Discussed concerns about exe rcise : promote physical activity Last Documented On 2 4:50PM ; [facility] Discussed current self-care methods/coping skills. ~Validated and normalized pt?s feelings while assisting patient process recent events. ~Discussed ongoing counseling. ~Discussed lifestyle changes to address chronic illness. ~Supported patient's personal health goals Last Documented On 2 8:09PM ; [facility] Discussed nutritional needs teach healthy choices including fruits and vegetables Last Documented On 2 4:02PM ; [facility] Patient education about a pr oper diet Last Documented On 2 4:02PM ; [facility] Discussed concerns about exe rcise : promote physical activity Last Documented On 2 4:02PM ; [facility] Discussed nutritional needs teach healthy choices including fruits and vegetables Last Documented On 2 5:37PM ; [facility] Patient education about a pr oper diet Last Documented On 2 5:37PM ; [facility] Discussed concerns about exe rcise : promote physical activity Last Documented On 2 5:37PM ; [facility] Discussed nutritional needs teach healthy choices including fruits and vegetables Last Documented On 2 6:48PM ; [facility] Patient education about a pr oper diet Last Documented On 2 6:48PM ; [facility] Discussed concerns about exe rcise : promote physical activity Last Documented On 2 6:48PM ; [facility] Discussed nutritional needs teach healthy choices including fruits and vegetables Last Documented On 1 4:21PM ; [facility] Patient education about a pr oper diet Last Documented On 1 4:21PM ; [facility] Discussed concerns about exe rcise : promote physical activity Last Documented On 1 4:21PM ; [facility] Explored current self-care m ethods and encouraged patient to continue using them Last Documented On 1 7:54PM ; [facility] Discussed nutritional needs teach healthy choices including fruits and vegetables Last Documented On 1 11:53AM ; [facility] Patient education about a pr oper diet Last Documented On 1 11:53AM ; [facility] Discussed concerns about exe rcise : promote physical activity Last Documented On 1 11:53AM ; [facility] Work Phone: 1(771) 577-600605-31-2023 Evaluation note Includes: Assessments for all patient encounters Findings Encounter Date [Body mass index [BMI] 22.0- 22.9, adult] assessment of body mass index Medical Established Patient with Mariposa Duncan [facility] 07/27/2022 Last Documented On 3 10:19AM ; [facility] Diabetes Risk Test Score was 0.0 score 07/27/2022 Medical Established Patient with Mariposa Rosser [facility] 07/27/2022 Last Documented On 3 10:19AM ; [facility] Esophageal reflux without esophagitis Me dical Established Patient with Mariposa Perla [facility] 07/27/2022 Last Documented On 3 10:19AM ; [facility] Schizoaffective disorder Established Patient with Halima Argueta [facility] 08/17/2021 Last Documented On 2 9:40PM ; [facility] Asthma Medical Established Patient with Kia Sharma [facility] 08/17/2021 Last Documented On 2 6:20PM ; [facility] Esophageal reflux without esophagitis Me dical Established Patient with Kia Edith [facility] 08/17/2021 Last Documented On 2 6:20PM ; [facility] Schizoaffective disorder Medical Establi shed Patient with Kia Edith [facility] 08/17/2021 Last Documented On 2 6:20PM ; [facility] Z68.20 - Body mass index [BM I] 20.0-20.9, adult Medical Established Patient with Kia Edith [facility] 08/17/2021 Last Documented On 2 6:20PM ; [facility] Schizoaffective disorder Established Patient with Halima Argueta [facility] 07/15/2021 Last Documented On 2 11:18AM ; [facility] Schizoaffective disorder Established Patient with Halima Argueta [facility] 07/15/2021 Last Documented On 2 11:18AM ; [facility] Bipolar disorder NOS Medical Established Patient with Kia Edith [facility] 07/15/2021 Last Documented On 2 9:30AM ; [facility] Esophageal reflux without esophagitis Me dical Established Patient with Kia Edith [facility] SPECIAL[facility] 07/15/2021 Last Documented On 2 9:30AM ; [facility] Herpes simplex type I Medical Established Patien t with Kia Edith [facility] SPECIAL[facility] 07/15/2021 Last Documented On 2 9:30AM ; [facility] Z68.1 - Body mass index [BMI ] 19.9 or less, adult Medical Established Patient with Kia Edith [facility] 07/15/2021 Last Documented On 2 9:30AM ; [facility] Asthma Medical Established Patient with Kia Edith [facility] SPECIAL[facility] 07/01/2021 Last Documented On 2 7:44PM ; [facility] Bipolar disorder NOS Medical Established Patient with Kia Edith EDITORIAL SPECIALIST 07/01/2021 Last Documented On 2 7:44PM ; [facility] Herpes simplex type I Medical Established Patien t with Kia Edith EDITORIAL SPECIALIST 07/01/2021 Last Documented On 2 7:44PM ; [facility] Schizoaffective disorder Medical Establi shed Patient with Kia Edith EDITORIAL SPECIALIST 07/01/2021 Last Documented On 2 7:44PM ; [facility] Z68.20 - Body mass index [BM I] 20.0-20.9, adult Medical Established Patient with Kia Edith EDITORIAL SPECIALIST 07/01/2021 Last Documented On 2 7:44PM ; [facility] Diabetes Risk Test Score was one score 05/28/2021 Medical Established Patient with Kia Edith EDITORIAL SPECIALIST 05/28/2021 Last Documented On 2 8:39AM ; [facility] Herpes simplex type I Medical Established Patien t with Kia Edith EDITORIAL SPECIALIST 05/28/2021 Last Documented On 2 8:39AM ; [facility] No cough Medical Established Patient with Kia Edith EDITORIAL SPECIALIST 05/28/2021 Last Documented On 2 8:39AM ; [facility] Visit for: screening for hum an immunodeficiency virus Medical Established Patient with Kia Sharma [facility]ORIAL SPECIALIST 05/28/2021 Last Documented On 2 8:39AM ; [facility] Z11.59 - Encounter for nettie kauffman for other viral diseases Medical Established Patient with Kia Sharma EDITORIAL SPECIALIST 05/28/2021 Last Documented On 2 8:39AM ; [facility] Z68.1 - Body mass index [BMI ] 19.9 or less, adult Medical Established Patient with Kia Sharma EDITORIAL SPECIALIST 05/28/2021 Last Documented On 2 8:39AM ; [facility] Asthma Medical Established Patient with Kia Sharma EDITORIAL SPECIALIST 04/03/2020 Last Documented On 1 1:12PM ; [facility] Body mass index Medical Established Patient with Kia Sharma EDITORIAL SPECIALIST 04/03/2020 Last Documented On 1 1:12PM ; [facility] Esophageal reflux without esophagitis Me dical Established Patient with Kia Sharma EDITORIAL SPECIALIST 04/03/2020 Last Documented On 1 1:12PM ; [facility] Lower backache Medical Established Patient with Kia Sharma [facility] 04/03/2020 Last Documented On 1 1:12PM ; [facility] Bipolar disorder (per denia vega, diagnosed w/both Bipolar I & II) Telebehavioral Health with Halima Marroquins [facility] 03/20/2020 Last Documented On 1 7:55PM ; [facility] Schizoaffective disorder (pe r patient report) Telebehavioral Health with Halima Condonmons [facility] 03/20/2020 Last Documented On 1 7:55PM ; [facility] Asthma Telemedicine New Patient with An michelle Sharma EDITORIAL SPECIALIST 03/20/2020 Last Documented On 1 9:48AM ; [facility] Lumbago Telemedicine New Patient with An michelle Sharma EDITORIAL SPECIALIST 03/20/2020 Last Documented On 1 9:48AM ; [facility] Z68.21 - Body mass index [BM I] 21.0-21.9, adult Telemedicine New Patient with Kia Sharma [facility] 03/20/2020 Last Documented On 1 9:48AM ; [facility] Work Phone: 1(555) 763-539205-31-2023 Progress note* Progress note Date Encounter Last Documented by 07/27/2022 Medical Established Patient Last documented on 07/28/2022; 10:19 AM, Mariposa Duncan EDITORIAL SPECIALIST; [facility] Active Problems & Conditions - J45.998 - Asthma - M54.50 - Backache Lower - K21.9 - Esophageal Reflux Without Esophagitis - 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 - F25.0 - Schizoaffective Disorder Chief Complaint The Chief Complaint is: Patient states feels like gerd is coming back, patient states that burps smell like rotten eggs or cotton bag sewer went to ER for migraines. Referred [...] BP-Sitting L117/63 mmHg BP Cuff SizeRegular Pulse Rate-Aejgtwy74 bpm Temp-Frhaemmv85.3 F Wkhlna87 in Ulwnlr796 lbs 4.8 oz Body Mass Index22 kg/m2 Body Surface Area1.8 m2 Oxygen Tmpuwkbrpu87 % General Appearance: - Awake. - Alert. [...] Less than 40 years (0 points) [Pre-DM]. [facility]05-31-2023 Reason for referral (narrative)* Date Encounter Description Provider Reason for Referral 07/27/22 Medical Established Patient Mariposa Duncan ROLF Referral To Mental Health Team; JENIFFER Referral For [facility] Work Phone: 1(585) 237-407102-26-2023 Hospital Discharge instructions* Discharge Instructions* Christopher Stephenson [...] through Care Everywhere. * Nausea and Vomiting (Croatian) [facility] Work Phone: 1(239) 903-757401-06-2023 History of Present illness Narrative* Martha Melgoza [...] smoked today 03/03/22. [facility] Work Phone: [phone]) [phone] Hospital Discharge instructions* Discharge Instructions* Kassidy Davidson [...] to bathe or shower. [facility] [employer] Work Phone: 1(302) 627-106201-03-2023 Hospital Discharge instructions* Discharge Instructions* Nicholas Denton MD - 03/01/2022 8:09 AM EST Take your medications as prescribed. You may take Tylenol Motrin as needed for pain control as wellas warm compresses. Follow-up with your OB electronic warfare officer as scheduled. You have been given a referral for general surgeon if this continues for further assessment of possible drainage. * Attachments The following attachments cannot be sent through Care Everywhere. * Cellulitis (Croatian) documented in this encounter[facility] [employer] Work Phone: 1(238) 950-733906-21-2022 Evaluation note Includes: Assessments for all patient encounters Findings Encounter Date Schizoaffective disorder Established Patient with Halima Argueta [facility] 08/17/2021 Asthma Medical Established Patient with Kia Edith EDITORIAL SPECIALIST 08/17/2021 Esophageal reflux without esophagitis Me dical Established Patient with Kia Edith [facility] 08/17/2021 Schizoaffective disorder Medical Establi shed Patient with Kia Edith [facility] 08/17/2021 Z68.20 - Body mass index [BM I] 20.0-20.9, adult Medical Established Patient with Kia Edith [facility]ORIAL SPECIALIST 08/17/2021 Schizoaffective disorder Established Patient [facility] 07/15/2021 Schizoaffective disorder Established Patient with Halima Argueta [facility] 07/15/2021 Bipolar disorder NOS Medical Established Patient with Kia Edith [facility] 07/15/2021 Esophageal reflux without esophagitis Me dical Established Patient with Kia Edith [facility] 07/15/2021 Herpes simplex type I Medical Establishe d Patient with Kia Edith [facility] 07/15/2021 Z68.1 - Body mass index [BMI ] 19.9 or less, adult Medical Established Patient with Kia Edith [facility] 07/15/2021 Asthma Medical Established Patient with Kia Edith EDITORIAL SPECIALIST 07/01/2021 Bipolar disorder NOS Medical Established Patient with Kia Edith [facility] 07/01/2021 Herpes simplex type I Medical Establishe d Patient with Kia Edith [facility] 07/01/2021 Schizoaffective disorder Medical Establi shed Patient with Kia Edith [facility] 07/01/2021 Z68.20 - Body mass index [BM I] 20.0-20.9, adult Medical Established Patient with Kia Edith [facility] 07/01/2021 Diabetes Risk Test Score was one score 05/28/2021 Medical Established Patient with Kia Edith [facility] 05/28/2021 Herpes simplex type I Medical Establishe d Patient with Kia Edith [facility] 05/28/2021 No cough Medical Established Patient with Kia Edith [facility] 05/28/2021 Visit for: screening for hum an immunodeficiency virus Medical Established Patient with Kia Sharma EDITORIAL SPECIALIST 05/28/2021 Z11.59 - Encounter for nettie kauffman for other viral diseases Medical Established Patient with Kia Sharma EDITORIAL SPECIALIST 05/28/2021 Z68.1 - Body mass index [BMI ] 19.9 or less, adult Medical Established Patient with Kia Sharma EDITORIAL SPECIALIST 05/28/2021 Asthma Medical Established Patient with Kia Sharma EDITORIAL SPECIALIST 04/03/2020 Body mass index Medical Established Patient with Kia Sharma EDITORIAL SPECIALIST 04/03/2020 Esophageal reflux without esophagitis Me dical Established Patient with Kia Sharma EDITORIAL SPECIALIST 04/03/2020 Lower backache Medical Established Patient with Kia Sharma EDITORIAL SPECIALIST 04/03/2020 Bipolar disorder (per denia vega, diagnosed w/both Bipolar I & II) Telebehavioral Health with Halima Argueta [facility] 03/20/2020 Schizoaffective disorder (pe r patient report) Telebehavioral Health with [place] Marroquins [facility] 03/20/2020 Asthma Telemedicine New Pat ient with Kia Sharma [facility] 03/20/2020 Lumbago Telemedicine New Pat ient with Kia Sharma [facility] 03/20/2020 Z68.21 - Body mass index [BM I] 21.0-21.9, adult Telemedicine New Patient with Kia Sharma [facility] 03/20/2020 [facility] Work Phone: [phone]) [phone] Evaluation note Includes: Assessments for all patient encounters Findings Encounter Date Schizoaffective disorder Established Patient with Halima Argueta [facility] 07/15/2021 Schizoaffective disorder Established Patient with Halima Argueta [facility] 07/15/2021 Bipolar disorder NOS Medical Established Patient with Kia Sharma EDITORIAL SPECIALIST 07/15/2021 Esophageal reflux without esophagitis Me dical Established Patient with Kia Sharma EDITORIAL SPECIALIST 07/15/2021 Herpes simplex type I Medical Establishe d Patient with Kia Sharma [facility] 07/15/2021 Z68.1 - Body mass index [BMI ] 19.9 or less, adult Medical Established Patient with Kia Sharma EDITORIAL SPECIALIST 07/15/2021 Asthma Medical Established Patient with Kia Sharma EDITORIAL SPECIALIST 07/01/2021 Bipolar disorder NOS Medical Established Patient with Kia Sharma EDITORIAL SPECIALIST 07/01/2021 Herpes simplex type I Medical Establishe d Patient with Kia Sharma EDITORIAL SPECIALIST 07/01/2021 Schizoaffective disorder Medical Establi shed Patient with Kia Sharma EDITORIAL SPECIALIST 07/01/2021 Z68.20 - Body mass index [BM I] 20.0-20.9, adult Medical Established Patient with Kia Sharma [facility] 07/01/2021 Diabetes Risk Test Score was one score 05/28/2021 Medical Established Patient with Kia Sharma EDITORIAL SPECIALIST 05/28/2021 Herpes simplex type I Medical Establishe d Patient with Kia Sharma [facility] 05/28/2021 No cough Medical Established Patient with Kia Sharma [facility] 05/28/2021 Visit for: screening for hum an immunodeficiency virus Medical Established Patient with Kia Sharma [facility] 05/28/2021 Z11.59 - Encounter for scree jamari for other viral diseases Medical Established Patient with Kia Sharma [facility] 05/28/2021 Z68.1 - Body mass index [BMI ] 19.9 or less, adult Medical Established Patient with Kia Sharma [facility] 05/28/2021 Asthma Medical Established Patient with Kia Sharma [facility] 04/03/2020 Body mass index Medical Established Patient with Kia Sharma [facility] 04/03/2020 Esophageal reflux without esophagitis Me dical Established Patient with Kia Sharma [facility] 04/03/2020 Lower backache Medical Established Patient with Kia Sharma [facility] 04/03/2020 Bipolar disorder (per denia vega, diagnosed w/both Bipolar I & II) Telebehavioral Health with Halima Argueta [facility] 03/20/2020 Schizoaffective disorder (pe r patient report) Telebehavioral Health with Halima Argueta [facility] 03/20/2020 Asthma Telemedicine New Pat ient with Kia Sharma [facility] 03/20/2020 Lumbago Telemedicine New Pat ient with Kia Sharma [facility] 03/20/2020 Z68.21 - Body mass index [BM I] 21.0-21.9, adult Telemedicine New Patient with Kia Sharma [facility] 03/20/2020 [facility] Work Phone: 1([phone]) 549-671705-05-2022 Evaluation note Includes: Assessments for all patient encounters Findings Encounter Date Asthma Medical Established Patient with Kia Sharma [facility] 07/01/2021 Bipolar disorder NOS Medical Established Patient with Kia Sharma EDITORIAL SPECIALIST 07/01/2021 Herpes simplex type I Medical Establishe d Patient with Kia Sharma EDITORIAL SPECIALIST 07/01/2021 Schizoaffective disorder Medical Establi shed Patient with Kia Sharma [facility] 07/01/2021 Z68.20 - Body mass index [BM I] 20.0-20.9, adult Medical Established Patient with Kia Sharma [facility] 07/01/2021 Diabetes Risk Test Score was one score 05/28/2021 Medical Established Patient with Kia Sharma [facility] 05/28/2021 Herpes simplex type I Medical Establishe d Patient with Kia Sharma [facility] 05/28/2021 No cough Medical Established Patient with Kia Sharma [facility] 05/28/2021 Visit for: screening for hum an immunodeficiency virus Medical Established Patient with Kia Sharma [facility] 05/28/2021 Z11.59 - Encounter for screjose de jesus kauffman for other viral diseases Medical Established Patient with Kia Sharma [facility] 05/28/2021 Z68.1 - Body mass index [BMI ] 19.9 or less, adult Medical Established Patient with Kia Sharma [facility] 05/28/2021 Asthma Medical Established Patient with Kia Sharma [facility] 04/03/2020 Body mass index Medical Established Patient with Kia Sharma [facility] 04/03/2020 Esophageal reflux without esophagitis Me dical Established Patient with Kia Sharma [facility] 04/03/2020 Lower backache Medical Established Patient with Kia Sharma [facility] 04/03/2020 Bipolar disorder (per denia vega, diagnosed w/both Bipolar I & II) Telebehavioral Health with Halima Argueta [facility] 03/20/2020 Schizoaffective disorder (pe r patient report) Telebehavioral Health with Halima Argueta [facility] 03/20/2020 Asthma Telemedicine New Pat ient with Kia Sharma [facility] 03/20/2020 Lumbago Telemedicine New Pat ient with Kia Sharma [facility] 03/20/2020 Z68.21 - Body mass index [BM I] 21.0-21.9, adult Telemedicine New Patient with Kia Sharma [facility] 03/20/2020 [facility] Work Phone: 1(142) 745-212404-01-2022 Evaluation note Includes: Assessments for all patient encounters Findings Encounter Date Diabetes Risk Test Score was one score 05/28/2021 Medical Established Patient with Kia Sharma [facility] 05/28/2021 Herpes simplex type I Medical Establishe d Patient with Kia Sharma [facility] 05/28/2021 No cough Medical Established Patient with Kia Sharma [facility] 05/28/2021 Visit for: screening for hum an immunodeficiency virus Medical Established Patient with Kia Sharma [facility] 05/28/2021 Z11.59 - Encounter for nettie kauffman for other viral diseases Medical Established Patient with Kia Sharma [facility] 05/28/2021 Z68.1 - Body mass index [BMI ] 19.9 or less, adult Medical Established Patient with Kia Sharma [facility] 05/28/2021 Asthma Medical Established Patient with Kia Sharma [facility] 04/03/2020 Body mass index Medical Established Patient with Kia Sharma [facility] 04/03/2020 Esophageal reflux without esophagitis Me dical Established Patient with Kia Sharma [facility] 04/03/2020 Lower backache Medical Established Patient with Kia Sharma [facility] 04/03/2020 Bipolar disorder (per denia vega, diagnosed w/both Bipolar I & II) Telebehavioral Health with Halima Argueta [facility] 03/20/2020 Schizoaffective disorder (pe r patient report) Telebehavioral Health with Halima Argueta [facility] 03/20/2020 Asthma Telemedicine New Pat ient with Kia Sharma [facility] 03/20/2020 Lumbago Telemedicine New Pat ient with Kia Sharma [facility] 03/20/2020 Z68.21 - Body mass index [BM I] 21.0-21.9, adult Telemedicine New Patient with Kia Sharma [facility] 03/20/2020 [facility] Work Phone: 1(178) 831-190308-18-2021 History of Present illness Narrative* Irish Nelson [...] understanding and denied any questions. * Summer oSusa RN - 10/14/2020 12:39 PM EDT Rogers ORGANIC PREPARATION ANALYST in to see patient. Patient's boyfriend called to pickling solution maker. * Rufina Hamilton RN - 09/28/2020 7:52 [...] calls at this time. [facility]: 1(287) 118-605902-05-2021 Evaluation note Includes: Assessments for all patient encounters Findings Encounter Date Asthma Medical Established Patient with Kia Sharma [facility] 04/03/2020 Body mass index Medical Established Patient with Kia Sharma [facility] 04/03/2020 Esophageal reflux without esophagitis Me dical Established Patient with Kia Sharma [facility] 04/03/2020 Lower backache Medical Established Patient with Kia Sharma [facility] 04/03/2020 Bipolar disorder (per denia vega, diagnosed w/both Bipolar I & II) Telebehavioral Health with Halima Argueta [facility] 03/20/2020 Schizoaffective disorder (pe r patient report) Telebehavioral Health with Halima Argu[facility] 03/20/2020 Asthma Telemedicine New Pat ient with Kia Sharma [facility] 03/20/2020 Lumbago Telemedicine New Pat ient with Kia Sharma [facility] 03/20/2020 Z68.21 - Body mass index [BM I] 21.0-21.9, adult Telemedicine New Patient with Kia Sharma [facility] 03/20/2020 [facility] Work Phone: 1(643) 826-777501-22-2021 History general Narrative - Reported Includes: Medical History in patient's chart Description Last Updated per pt report- 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 ~heartb urn 03/20/2020 History of psychiatric disor ders ADHD, manic bipolar 1 and 2, schizoeffective disorder 03/20/2020 History of tooth extraction 03/20/2020 History of asthma 03/20/2020 A recent immunization for flu 03/20/2020 No previous hospitalizations 03/20/2020 [facility] Work Phone: 1(565) 642-385701-22-2021 History general Narrative - Reported Includes: Medical History in patient's chart Description Last Updated per pt report- 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 ~heartb urn 03/20/2020 Last Documented On 1 9:48AM ; [facility] History of psychiatric disor ders ADHD, manic bipolar 1 and 2, schizoeffective disorder 03/20/2020 Last Documented On 1 9:48AM ; [facility] History of tooth extraction 03/20/2020 Last Documented On 1 9:48AM ; [facility] History of asthma 03/20/2020 Last Documented On 1 9:48AM ; [facility] A recent immunization for flu 03/20/2020 Last Documented On 1 9:48AM ; [facility] No previous hospitalizations 03/20/2020 Last Documented On 1 9:48AM ; [facility] Work Phone: Discharge summary Author Osmani baugh [facility] October 29, 2021 9:52am Note Date/Time October 29, 2021 9:52am [facility] [address] [place] [address] Discharge Summary Signed Patient: Bennett Vaughn MR#: [id number] : 1995 Acct:[id number] Age/Sex: 26 / F Adm Date: 2 Loc: Room: [address] [place] [address]: Feliberto Faust MD Copies to: [...] the unit and was encouraged to participate. Bennett reports that she has been feeling depressed [...] 15 Days Qty: 30 1RF Follow Up: Oriental Orthodox Instructor Adjunct Pharmacy Technician [Other] (Therapy: Case management: ) Documented By: Osmani Timmons MD 2 49 Signed By: <Electronically signed by Osmani Timmons MD> 10/29/21 09 [facility] Work Phone: Evaluation note* Diagnosis HGSIL (high grade squamous intraepithelial lesion) on Pap smear of cervix documented in this encounter [facility] Work Phone: evaluation note* Diagnosis Preop testing- Primary Preoperative examination, unspecified documented in this encounter [employer] Phone: [email or web address] note* Diagnosis Preop testing Preoperative examination, unspecified documented in this encounter [facility] Phone: evaluation note* Diagnosis 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 documented in this encounter [facility] Phone: evaluation note* Diagnosis Irregular menstrual cycle documented in this encounter [facility] Phone: evaluation note* Diagnosis Vaginal discharge Leukorrhea, not specified as infective documented in this encounter [employer] Phone: evaluation note* Diagnosis Onset Date Resolution Status Bipolar affective, mixed, sev w/ psych acute Chronic schizophrenia acute PTSD (post-traumatic stress disorder) acute Suicidal ideation acute [facility] Work Phone: Evaluation note* Diagnosis Cellulitis of right breast- Primary documented in this encounter [facility] Work Phone: evaluation note* Diagnosis Abscess of right breast- Primary Inflammatory disease of breast Abscess of right breast Inflammatory disease of breast documented in this encounter [facility] Work Phone: evaluation note* Diagnosis Nausea vomiting and diarrhea- Primary Nausea with vomiting documented in this encounter [facility] Phone: evaluation note* Diagnosis Abscess of female breast Inflammatory disease of breast documented in this encounter [facility] Phone: evaluation note* Diagnosis Flank pain- Primary Abdominal pain, unspecified site Urinary tract infection without hematuria, site unspecified documented in this encounter [facility] Work Phone: evaluation note* Diagnosis Abdominal pain- Primary Abdominal pain, unspecified site documented in this encounter [facility] note* Diagnosis Abdominal cramping- Primary Abdominal pain, unspecified site documented in this encounter [facility] Author Feliberto Faust [facility] October 27, 2021 3:07pm Note Date/Time October 27, 2021 3: 07pm [facility] [address] [place] [address] Psychiatry H&P Signed Patient: Bennett Vaughn MR#: [id number] : 1995 Acct:[id number] Age/Sex: 26 / F Adm Date: 2 Loc: Room: [address] [place] [address] Type: ADM IN Attending Dr: Feliberto Faust [...] as she believed that [facility] for [facility] No Medical History ADHD [...] Appearance Clear Urine pH 7.0 Ur Specific [place] 1.005 Urine Protein Negative Urine Glucose (UA) [...] signed by Feliberto Faust MD> 10/27/21 1506 [facility] Work Phone: History of Present illness Narrative History of Present Illness not supported for this document type No History of Present Illness [facility] Counts include 234 beds at the [facility] Work Phone: Hospital Discharge instructions* Instructions* [...] In the meantime, you may take an tjmc-kfm-xsuhjei analgesic (Tylenol, Anacin, etc.) and use a heating pad applied to the lower abdomen. Please call the office as soon as possible for a post-operative visit in two weeks. If you experience any unusual amount of bleeding or side effects that you cannot readily explain, please do not hesitate to call the office. documented in this [facility] Work Phone: Hospital Discharge instructions Additional Instructions Regular diet No activity [facility] Work Phone: Instructions Instructions not supported for this document type No Instructions [facility] Counts include 234 beds at the [facility] Work Phone: Patient problem outcome Narrative Includes: Evaluations & Outcomes for active Goals No Outcomes [facility] Counts include 234 beds at the [facility] Work Phone: Progress note Author Osmani baugh [facility] October 28, 2021 12:18pm Note Date/Time October 28, 2021 12:18pm [facility] [address] [place] [address] Psychiatry Progress Note Signed Patient: Bennett Vaughn MR#: [id number] : 1995 Acct:[id number] Age/Sex: 26 / F Adm Date: 2 Loc: Room: [address] [place] [address] Type : ADM IN Attending Dr: Feliberto [...] by Osmani Timmons MD> 10/28/21 1218 [facility] Work Phone: Reason for referral (narrative)No Reason for Referral [facility] Counts include 234 beds at the [facility] Work Phone: Review of systems Narrative - Reported Review of Systems not supported for this document type No Review of Systems [facility] Counts include 234 beds at the [facility] Work Phone: Summary Purpose Family History No Family History Records Found Description Last Updated father unknown 03/20/2020 Fraternal history of asthma 03/20/2020 Maternal history of hypertension 021 Relationship Condition Age at Onset Recorded Date/T jama Not Specified Bipolar affective disorder Unknown Hypertension Unknown brother Asthma Unknown Description Last Updated father unknown 03/20/2020 Last Documented On 1 9:48AM ; [facility] Fraternal history of asthma 03/20/2020 Maternal history of hypertension 021 Advance Directives No Advanced Directives Records FoundDocuments on File Type Date Recorded Patient Game Agent Expl anation ACP-Advance Directive ACP-Power of Marketing Trainee Latest Code Status on File Code Status Date Activated Date Inactivated Comments Full Code 02/13/2018 11:30 AM 02/15/2018 11:04 PM Full Code 07/15/2017 3:32 AM 07/17/2017 3:26 PM Full Code 07/15/2017 3:31 AM 07/15/2017 3:32 AM Full Code 10/29/2016 5:43 AM 11/02/2016 12:08 AM Full Code 02/14/2015 3:50 AM 02/17/2015 4:19 PM Documents on File Type Date Recorded Patient Game Agent Expl anation ACP-Advance Directive ACP-Power of Marketing Trainee Latest Code Status on File Code Status [...] on File Name Relationship Healthcare Agent Miranda Arenas Other Primary Decision Maker Discharge Instructions [...] sent through Care Everywhere. * Tooth: Abscessed (Croatian) documented in this encounter* Instructions* Sid Norris [...] sent through Care Everywhere. * Bacterial Vaginosis (Croatian) * Vaginal Bleeding (Croatian) documented in this encounter* Instructions* Irina Ojeda PA-C - 02/06/2020 Call your dentist to arrange follow-up for recheck this week. * Attachments The following attachments cannot be sent through Care Everywhere. * Tooth: Abscessed (Croatian) documented in this encounter* Instructions* Jose Saldaña APRN - CNP - 12/24/2019 Take amoxicillin as prescribed. Return to the emergency department for worsening symptoms. * Attachments The following attachments cannot be sent through Care Everywhere. * Dental Care: Pre-Dental Work Precautions: General Info (Croatian) documented in this encounter Assessments Diagnosis Dental infection Acute apical periodontitis of pulpal origin Diagnosis Dental abscess Periapical abscess without sinus Dental caries Unspecified dental caries Diagnosis Bacterial vaginosis- Primary Vaginitis and vulvovaginitis, unspecified Vaginal bleeding Other specified noninflammatory disorder of vagina Findings Encounter Date Bipolar disorder (per patien t, diagnosed w/both Bipolar I & II) Telebehavioral Health with Halima Condonmons [facility] 03/20/2020 Schizoaffective disorder (pe r patient report) Telebehavioral Health with Halima Condonmons [facility] 03/20/2020 Asthma Telemedicine New Pat ient with Kia Edith [facility] 03/20/2020 Lumbago Telemedicine New Pat ient with Kia Edith [facility] 03/20/2020 Z68.21 - Body mass index [BM I] 21.0-21.9, adult Telemedicine New Patient with Kia Edith [facility] 03/20/2020 Diagnosis Women's annual routine gynecological examination Findings Encounter Date Asthma Medical Established Patient with Kia Edith [facility] 04/03/2020 Body mass index Medical Established Patient with Kia Sharma [facility] 04/03/2020 Esophageal reflux without esophagitis Me dical Established Patient with Kia Sharma [facility] 04/03/2020 Lower backache Medical Established Patient with Kiafranco Sharma [facility] 04/03/2020 Bipolar disorder (per denia t, diagnosed w/both Bipolar I & II) Telebehavioral Health with Halima Condonmons [facility] 03/20/2020 Schizoaffective disorder (pe r patient report) Telebehavioral Health with Halima Condonmons [facility] 03/20/2020 Asthma Telemedicine New Pat ient with Kia Edith [facility] 03/20/2020 Lumbago Telemedicine New Pat ient with Kia Sharma [facility] 03/20/2020 Z68.21 - Body mass index [BM I] 21.0-21.9, adult Telemedicine New Patient with Kia Sharma [facility] 03/20/2020 Diagnosis Dental infection- Primary Acute [...] section and content) DATE CREATED AUTHOR 12/08/2018 [facility] DATE CREATED AUTHOR AUTHOR'S ORGANIZ ATION 05/31/2021 [facility] DATE CREATED AUTHOR AUTHOR'S ORGANIZ ATION 03/16/[address] [facility] DATE CREATED AUTHOR AUTHOR'S ORGANIZ ATION 04/02/2022 [facility] DATE CREATED AUTHOR AUTHOR'S ORGANIZ ATION 10/02/2023 [facility] DATE CREATED AUTHOR AUTHOR'S ORGANIZ ATION 11/08/2023 [facility] EPIC Reason for Visit (unrecogniz ed [...] (cervical intraepithelial neoplasia II) SHREYA II Procedures ID CONIZATION CERVIX,LOOP ELECTRD DILATATION AND CURETTAGE LEEP-ENDOCERVICAL CURETTAGE Anthony Galloway MD 27 [facility] [address] [facility] Reason Comments Breast Pain Right sided, onset y esterday pm, patient states she had an infection in her right breast a few months ago Specialty Diagnoses / Procedures Referred By Gladis vega Referred To Contact Diagnoses Abscess of right breast right breast abcess Procedures ID DRAIN SKIN ABSCESS SIMPLE BREAST INCISION AND DRAINAGE- BREAST Geoff Miller MD [address] [place] [address] [facility] [address] [place] [address] Referral ID Status Reason Start Date Expiration Date Visits Re quested Visits Authorized [id number] 1 1 Reason Comments Nausea Emesis Illness Pt. States she has h ad nausea & vomiting since this am. Reports hot & cold flashes & Occasional dizziness Specialty Diagnoses / Procedures Referred By Gladis vega Referred To Contact Radiology Diagnoses Abscess of female breast Procedures US BREAST LIMITED RIGHT US BREAST COMPLETE RIGHT Geoff Miller MD [facility] [place] [address] Referral ID Status Reason Start Date Expiration Date Visits Re quested Visits Authorized [id number] Open 04/18/2022 04/18/2023 1 1 Specialty Diagnoses / Procedures Referred By Gladis vega Referred To Contact Radiology Diagnoses Abscess of female breast Procedures DUSTIN JASMINA DIGITAL DIAGNOSTIC BILATERAL DUSTIN DIGITAL DIAGNOSTIC W OR WO CAD BILATERAL Geoff Miller MD [address] [place] [address] Referral ID Status Reason Start Date Expiration Date Visits Re quested Visits Authorized [id number] Closed 04/18/2022 04/18/2023 1 1 Reason Comments [...] 100 mL IVPB (COMPLETED) 2,000 mg, Intravenous, BOND TRADER TO O.R., 1 dose, On Mon10/14/20 at [...] 100 mL IVPB (COMPLETED) 2,000 mg, IntraVENous, BOND TRADER TO O.R., 1 dose, On Mon03/04/22 at 1115, Antimicrobial Indications: Surgical Prophylaxis, Administer within 1 hour prior to incision. Recommend to repeat in 3-4 hours after initial dose if still intra-op., Pre-op (day of surgery) 1244 (Given - Provid er: Roseanne Kruse, APPLICATION COORDINATOR - ORGANIC PREPARATION ANALYST) dimenhyDRINATE (DRAMAMINE) tablet 50 mg (COMPLETED) 50 [...] PHYSICIAN NO FAMILY Primary Care Provider Active Gas Welder Relationship Specialty Start Date End Date Kia Sharma, APPLICATION COORDINATOR - EDITORIAL SPECIALIST [address] [place] [address] PCP - General Nurse Practitioner 04/13/22 Gas Welder Relationship Specialty Start Date End Date EdithKia, APPLICATION COORDINATOR - EDITORIAL SPECIALIST [address] [place] [address] PCP - General Nurse Practitioner 04/13/22 Gas Welder Relationship Specialty Start Date End Date EdithKia, APPLICATION COORDINATOR - EDITORIAL SPECIALIST [address] [place] [address] PCP - General Nurse Practitioner 04/13/22 Gas Welder Relationship Specialty Start Date End Date Kia Sharma, APPLICATION COORDINATOR - EDITORIAL SPECIALIST [address] [place] [phone] PCP - General Nurse Practitioner 04/13/22 Gas Welder Relationship Specialty Start Date End Date Kia Sharma, APPLICATION COORDINATOR - EDITORIAL SPECIALIST [address] [place] [phone] PCP - General Nurse Practitioner 04/13/22 Gas Welder Relationship Specialty Start Date End Date EdithKia, APPLICATION COORDINATOR - EDITORIAL SPECIALIST [address] [place] [phone] PCP - General Nurse Practitioner 04/13/22 FOR [...] BE BASED ON THE PRIMARY CLINICAL RECORDS. [facility]. provides no warranty or guarantee of the accuracy or completeness of information in this document.
[2023-11-09 17:16] LABS: Basophils Percent Auto 0.2 % (0.2-2.0); Eosinophils Percent Auto 0.1 % (0.9-7.0); Hemoglobin 12.1 g/dL (12.0-16.0); Immature Granulocytes Abs Auto 0.03 10^3/uL (0.00-0.03); Immature Granulocytes Pct Auto 0.3 % (0.0-0.5); Lymphocytes Absolute Auto 1.9 10^3/uL (1.2-3.8); Lymphocytes Percent Auto 20.2 % (20.5-60.0); Mean Corpuscular HGB Conc 33.6 g/dL (29.9-35.2); Mean Corpuscular Hemoglobin 32.5 pg (26.7-34.0); Mean Corpuscular Volume 96.8 fL (81.0-99.0); Mean Platelet Volume 11.6 fL (9.5-13.5); Monocytes Absolute Auto 0.5 10^3/uL (0.3-0.8); Monocytes Percent Auto 5.6 % (1.7-12.0); Neutrophils Absolute Auto 6.8 10^3/uL (1.4-6.5); Neutrophils Percent Auto 73.6 % (43.0-75.0); Platelet Count 183 10^3/uL (150-450); Red Blood Count 3.72 10^6/uL (4.20-5.40); Red Cell Distribution Width 12.4 % (11.0-15.0); White Blood Count 9.3 10^3/uL (4.0-11.0)
[2023-11-09] MEDS: 0.9 % SODIUM CHLORIDE 1,000 ML 1000 ML IV (17:34)
[2023-11-09] MEDS: CITRIC ACID/SODIUM CITRATE 30 ML SOLUTION ORACIT SHOHL'S SOLN PO (18:02)
[2023-11-09] MEDS: METOCLOPRAMIDE HCL 10 MG/2 ML VIAL IVP (18:05)
[2023-11-09] MEDS: FAMOTIDINE/PF 20 MG/2 ML VIAL IV (18:06)
[2023-11-09] MEDS: CEFAZOLIN SODIUM/DEXTROSE,ISO 2 GM/50 ML PIGGYBACK IV (18:08)
[2023-11-09] MEDS: LACTATED RINGER'S SOLUTION 1,000 ML 50 ML IV ×2 (18:57→19:03)
--- NOTE | 2023-11-09 18:57 | P.ON_ITS ---
Brief Operative Note Date of procedure: 11/09/23 Pre-op diagnosis general: iup at 38wks, previous c/s times 4, early labor, abd ominal pain Post-op diagnosis: same as pre-op Procedure: NAME OF PROCEDURE: [ section ] PROCEDURE: Patient was taken back to the Operating Room where she was given a spinal anesthesia with Duramorph without difficulty. She was prepped and draped in the normal sterile fashion. A Pfannenstiel skin incision was then made 2 cm above the symphysis pubis and carried down to underlying rectus fascia using a Bovie. The fascia was incised in the midline and extended laterally using Ward scissors. Two Tomas clamps were placed on the superior aspect of the fascia and dissected off the underlying rectus muscles. The same was performed on the inferior aspect as well. The muscles were then in the midline. Peritoneum was identified and entered bluntly. The peritoneum was then extended superiorly and inferiorly with good visualization of the bladder. The bladder blade was inserted. A low transverse incision was made on the patient's uterus and extended laterally digitally. The infant was then delivered atraumatically after the bladder blade was removed in the cephalic position. The cord was clamped and cut. Cord blood was obtained. The was handed off to awaiting team. The patient's placenta was spontaneously delivered. The uterus was then exteriorized. The uterus was cleared of all clots and debris. The bladder blade was reinserted. The patient's uterine incision was closed using #0 Vicryl in a running lock fashion. Excellent hemostasis was assured. The uterus was then returned to the patient's abdomen. The patient's abdomen was copiously irrigated using warm saline. Peritoneal gutters were cleared of all clots and debris. Again excellent hemostasis was assured. The patient's peritoneum was closed using 3-0 Vicryl in a running fashion. The patient's fascia was closed using #0 Vicryl in a running fashion. The patient's skin was closed using 4-0 Vicryl subcuticularly. The patient tolerated the procedure well. Sponge, lap, and needle counts were correct x2. The patient was taken to the Recovery Room in stable condition. Anesthesia: spinal Surgeon: Yuriy Sabillon Mechanical Engineering Coop: Valerie Reyna Estimated blood loss (mL): 575 Pathology: none sent Condition: stable Disposition: floor Urinary Catheter Management Urinary Catheter Management Urethral: Cath placed during this visit: no
--- NOTE | 2023-11-09 18:58 | PM.OBPRCCS ---
Procedure Pre-op/Post-op diagnoses: Pre-Op/Post-Op Diagnoses Operation Date: 11/09/23 18:15 <No data on this case meets the specified criteria> Procedure: Procedures Operation Date: 11/09/23 18:15 Actual Procedure Side Surgeon p Repeat Not Applicable Yuriy Sabillon DO Uranium Processing Supervisor: Valerie Reyna Estimated blood loss (mL): 575 Disposition: PACU Anesthesia type: Spinal
[2023-11-09] MEDS: OXYTOCIN/0.9 % SODIUM CHLORIDE 20 UNITS/1,000 ML PLAST..BAG 125 UNIT IV (20:03)
[2023-11-09 20:44] LABS: Amphetamine Screen Urine NEGATIVE (NEGATIVE); Barbiturates Screen Urine NEGATIVE (NEGATIVE); Benzodiazepines Screen Urine NEGATIVE (NEGATIVE); Buprenorphine Screen Urine NEGATIVE (NEGATIVE); Cannabinoid Screen Urine NEGATIVE (NEGATIVE); Cocaine Screen Urine NEGATIVE (NEGATIVE); Methadone Screen Urine NEGATIVE (NEGATIVE); Methamphetamines Screen Urine NEGATIVE (NEGATIVE); Opiate Screen Urine NEGATIVE (NEGATIVE); Oxycodone Screen Urine NEGATIVE (NEGATIVE); Phencyclidine Screen Urine NEGATIVE (NEGATIVE); Tricyclic Antidepressant Urine NEGATIVE (NEGATIVE)
[2023-11-10] VITALS (7 sets, daily range): BP systolic 112–123; BP diastolic 60–69; PULSE 65–84; TEMP 36.4–36.7
[2023-11-10] MEDS: ONDANSETRON 4 MG RAPDIS TABLET PO (00:17)
[2023-11-10] MEDS: CEFAZOLIN SODIUM/DEXTROSE,ISO 2 GM/50 ML PIGGYBACK IV (00:20)
[2023-11-10] MEDS: KETOROLAC TROMETHAMINE 30 MG/ML VIAL IVP ×3 (00:20→11:27)
[2023-11-10] MEDS: ACETAMINOPHEN 500 MG TABLET 1000 MG PO ×3 (01:57→18:16)
[2023-11-10] MEDS: ENOXAPARIN SODIUM 40 MG/0.4 ML SYRINGE SUBQ (06:15)
[2023-11-10 06:20] LABS: Glucometer 155 mg/dL (74-106)
[2023-11-10 06:34] LABS: Basophils Percent Auto 0.1 % (0.2-2.0); Hematocrit 33.4 % (36.0-48.0); Hemoglobin 11.1 g/dL (12.0-16.0); Immature Granulocytes Abs Auto 0.05 10^3/uL (0.00-0.03); Immature Granulocytes Pct Auto 0.3 % (0.0-0.5); Lymphocytes Absolute Auto 0.8 10^3/uL (1.2-3.8); Lymphocytes Percent Auto 5.1 % (20.5-60.0); Mean Corpuscular HGB Conc 33.2 g/dL (29.9-35.2); Mean Corpuscular Hemoglobin 32.7 pg (26.7-34.0); Mean Corpuscular Volume 98.5 fL (81.0-99.0); Mean Platelet Volume 11.4 fL (9.5-13.5); Monocytes Absolute Auto 0.9 10^3/uL (0.3-0.8); Neutrophils Absolute Auto 12.9 10^3/uL (1.4-6.5); Neutrophils Percent Auto 88.5 % (43.0-75.0); Platelet Count 158 10^3/uL (150-450); Red Blood Count 3.39 10^6/uL (4.20-5.40); Red Cell Distribution Width 12.3 % (11.0-15.0); White Blood Count 14.6 10^3/uL (4.0-11.0)
--- NOTE | 2023-11-10 08:40 | P.OBPN_ITS ---
OB - PN: Subj Subjective Patient comments: no complaints and pain well controlled [place] status: doing well Exam Constitutional Vital Signs, click to edit/add: Last Vital Signs Temp 97.9 F 11/10/23 03:03 Pulse 84 11/10/23 00:47 Resp 16 11/10/23 00:47 BP 112/60 11/10/23 03:03 Pulse Ox 97 11/09/23 20:15 O2 Del Method Room Air 11/10/23 03:20 Documenting provider has reviewed patient's vital signs: yes Common normals: no apparent distress Respiratory Common normals: normal respiratory effort and clear to auscultation bilaterally Cardio Common normals: regular rate and regular rhythm GI Common normals: Normal to inspection, nondistended, normoactive bowel sounds present Extremity Common normals: no calf tenderness Results Labs Labs: Short CBC 11/09/23 11/10/23 Range/Units 16:57 06:13 WBC 9.3 14.6 H (4.0-11.0) 10^3/uL Hgb 12.1 11.1 L (12.0-16.0) g/dL Hct 36.0 33.4 L (36.0-48.0) % Plt Count 183 158 (150-450) 10^3/uL Urine 11/09/23 Range/Units 14:12 Urine Color Lt. yellow (YELLOW) Urine Clarity Clear (CLEAR) Urine pH 7.0 (5.0-9.0) Ur Specific [place] <=1.005 A (1.005-1.025) Urine Protein Negative (NEG/TRACE) mg/dL Urine Glucose (UA) Negative (NEGATIVE) mg/dL Urinary Catheter Management Urinary Catheter Management Urethral: Cath placed during this visit: yes Urethral indwelling: No Insertion date: 11/09/23 Insertion time: 17:40 OB - PN: A/P Plan - day: 1 Plan: routine postop care Time Spent with Patient Time: Total time spent is greater than 50% in coordination of care (as documented) at patient's floor/unit and/or counseling patient: Total time spent with greater than 50% in coordination of care (as documented) at patient's floor/unit and/or counseling patient: less than 15 minutes
[2023-11-10] MEDS: RHO(D) IMMUNE GLOBULIN 1,500 UNIT SYRINGE 1500 UNIT IV (08:52)
[2023-11-10] MEDS: DOCUSATE SODIUM 100 MG CAPSULE PO ×2 (08:52→21:40)
[2023-11-10] MEDS: DIPHENHYDRAMINE HCL 50 MG/ML VIAL 12.5 MG IV ×2 (08:55→16:21)
--- NOTE | 2023-11-10 09:30 | PC.NURSE ---
campbell removed, up to BR and pericare reviewed, returns to chair, baby to breast, pt states is painful when RN attempts hand expression, baby sleepy and wont latch, much education done re and milk production, baby and mom skin to skin while pt sits up in chair
--- NOTE | 2023-11-10 09:35 | PC.NURSE ---
0340 discussed plan of care with pt and significant other, pt states I dont have any milk and I know it wont work States attempted other children without success. Significant other states Why dont you see the client support consultant before you throw the towel in? Pt states I guess . Instructed pt she needs to decide and we will assist with whichever feeding method she choses.
[2023-11-10 10:00] LABS: Glucometer 237 mg/dL (74-106)
--- NOTE | 2023-11-10 10:10 | PC.NURSE ---
Cadee and significant other eating breakfast, baby in open crib sleeping. Cadee concerned as to why no able to pump anything out is approximately 14 hours post delivery. Reviewed process of milk making and realistic expectations. Pt has been bottle feeding since delivery, but states I was planning to breast feed. Pt has significant history and has been on multiple medications for psychological diagnosis. States would need to return to [facility]. Pt has many excuses for not breast feeding when presented with options and plans for placing to breast. States right nipple had surgery Had cellulitis and nipple cut through center. Nipple is currently bi-furcated and inverted, does not tommy with stimulation. offers support and time for parents to discuss options.
[2023-11-10 13:01] LABS: Glucometer 192 mg/dL (74-106)
--- NOTE | 2023-11-10 14:51 | SWNOTE1 ---
SW was consulted for mental health. SW spoke with nursing and concerns as pt does not have her other children. Previous drug use, vaping, and ciagerettes. SW to complete assessment. Pt and father of baby in room. They both voiced they have everything they need at home for baby. They will order crib once baby is out of bassinet. She has attempted to breast feed, but is not producing. Pt acknowledged that she will have to supplement with formula. Father of baby voiced he fed him earlier and he sucked it down and he forgot to burp him. This is first baby for father of baby. Pt has spoke to [facility] and will get formula from them. Pt and father of baby go to parenting classes at [facility] in [place]. She said they spoke about post depression. She is self aware of the signs. Pt has been going to counseling all through and plans on continuing once she is home. She does virtual visits weekly and has to go in 1x a month. Pt voiced she has ADHD, schizophrenia, depression, and anxiety. She voiced her counselor has helped her a lot and she is comfortable with her. Pt has already made follow up apt for baby as well. SW did as how they are doing financially? Pt voiced she is getting social security and father of baby has started a new job at [employer], he has been there for 1 month. ARTURO then asked about pt's other children. She has a son who is 8 who she has not seen since he was 1. She stated she missed a visitation and never has been able to see him again. Her son is with the paternal grandmother. Pt also has 2 daughters that are adopted by her aunt. She has not seen them since they were little babies. She voiced several times she was young and dumb. ARTURO did ask if there was any court cases or CPS cases that are open? She stated no there has been no involvement for several years. At this time SW has no further questions or concerns. Pt and father of baby caring for baby appropriately. ARTURO updated nursing and let nursing know to call with any further concerns.
[2023-11-10 16:42] LABS: Glucometer 156 mg/dL (74-106)
[2023-11-10] MEDS: IBUPROFEN 400 MG TABLET 800 MG PO (18:15)
[2023-11-10] MEDS: OXYCODONE HCL 5 MG TABLET PO (21:40)
[2023-11-10] MEDS: FAMOTIDINE 20 MG TABLET PO (21:40)
[2023-11-11 00:03] VITALS: BP 106/76; PULSE 86; TEMP 36.6; O2SAT 97
[2023-11-11] MEDS: IBUPROFEN 400 MG TABLET 800 MG PO ×3 (00:07→12:22)
[2023-11-11] MEDS: ACETAMINOPHEN 500 MG TABLET 1000 MG PO (01:43)
[2023-11-11] MEDS: ENOXAPARIN SODIUM 40 MG/0.4 ML SYRINGE SUBQ (05:50)
[2023-11-11 08:20] VITALS: TEMP 36.4
[2023-11-11] MEDS: DOCUSATE SODIUM 100 MG CAPSULE PO (08:32)
--- NOTE | 2023-11-11 10:15 | PM.OBDS ---
DS: Providers Provider Date of admission: 11/09/23 13:34 Primary care physician: Non-Staff Physician, Admitting clinician: Yuriy Sabillon Consults: 11/09/23 Consult to Anesthesiology Routine Consulting Provider: Cody Emmanuel Reason for consultation: Surgical Procedure Has provider been notified: No Consult to Validation Architect Routine Reason for consult:: Mental Health Attending physician on discharge: Julia Woodard DS: Diagnosis Discharge Diagnosis (1) Status post repeat low transverse section: Assessment and plan: nonfocal clinical exam, labs reviewed, vss Plan discharge home, sports bra 19/09 so milk doesn't come in, instructions given with stated understanding, script for percocet 5/325 and ibuprophen given, follow up with Dr. Sabillon in one week, call for problem or concern OB - DS: Summary Hospital Course Hospital Course: uncomplicated Time spent discussing smoking cessation with patient: 3 to 10 minutes Peripartum Data - Procedures: Procedures Operation Date: 11/09/23 18:15 Actual Procedure Side Surgeon p Repeat Not Applicable Yuriy Sabillon DO Peripartum Data - Vaginal Delivery Procedures: Procedures Operation Date: 11/09/23 18:15 Actual Procedure Side Surgeon p Repeat Not Applicable Yuriy Sabillon DO Complications complications: none Delivery method: section Gender: male Discharge plan: home Status at Discharge Cognitive/behavioral status at discharge: wnl Functional status at discharge: independent ambulation Overall status at discharge: patient is progressing back to baseline Time Spent with Patient Time attestation: Total time spent providing and/or coordinating discharge services: Time spent: less than 30 minutes Exam Narrative Exam Narrative: voicing no complaints Constitutional Vital Signs, click to edit/add: Last Vital Signs Temp 97.6 F 11/11/23 08:20 Pulse 86 11/11/23 00:03 Resp 16 11/11/23 00:03 BP 106/76 11/11/23 00:03 Pulse Ox 97 11/11/23 00:03 O2 Del Method Room Air 11/11/23 08:20 Common normals: no apparent distress, oriented x3, healthy appearing, alert and well nourished HENIL Common normals: normocephalic and head/scalp atraumatic Eye Pupil: PERRL and accommodation reflex normal Neck & C-Spine Common normals: full ROM Respiratory Common normals: normal respiratory effort Auscultation: clear to auscultation bilaterally Cardio Common normals: regular rate and regular rhythm GI Common normals: Normal to inspection, nondistended, normoactive bowel sounds present, soft to palpation and non-tender Common normals: no CVA tenderness Back & Pelvis Common normals: no thoracic nor lumbar tenderness Extremity Common normals: normal to inspection, full ROM and no calf tenderness Neuro Common normals: CN's II-XII intact bilaterally, moves all extremities, no focal motor deficits and no sensory deficits noted Motor exam: strength 5/5 throughout Psych Common normals: mental status grossly normal, thought process normal, cooperative, affect normal, speech normal and activity/motor behavior normal DS: Data Data Completed and Pending Labs on day of discharge: Labs from last 24 hours 11/10/23 11/10/23 16:41 12:56 POC Glucose 156 H 192 H Discharge Plan Discharge Disposition: Home, Self-Care Condition: Good Assessment: clinical exam nonfocal, vss normal, labs reviewed, requesting discharge, ok to discharge home with baby Plan of Treatment: discharge Discharge Medications: Continued albuterol sulfate 90 mcg/actuation HFA aerosol inhaler 2 puff INHALATION DAILY budesonide-formoterol [Symbicort] 80-4.5 mcg/actuation HFA aerosol inhaler 1 puff INHALATION Q12H famotidine 20 mg tablet 20 mg PO TID Vitamin 27 mg iron- 800 mcg tablet 1 tab PO DAILY promethazine 12.5 mg tablet 12.5 mg PO PRN PRN (Reason: nausea) Discontinued insulin glargine [Lantus U-100 Insulin] 100 unit/mL solution 10 unit subcut .HS Activity: increase activity as tolerated Activity Detail: no sex six weeks, shower ok, no bathtub 4 weeks, walking only exercise six week, sports bra 19/09 as bottle feeding, incision check in one week, baby to see peds within one week, scripts to patient, call for problem or concern Diet: regular diet Print Language: Portuguese Patient Instructions: (DC) Forms: Portal Instructions Follow Up Appointments: needs incision check in one week with provider Discharge location: home
[2023-11-11] MEDS: OXYCODONE HCL 5 MG TABLET PO (11:09)
--- NOTE | 2023-11-11 15:06 | RESP.RT ---
Done per nursing
== END 2023-11-11 15:40 | disposition home or self-care (01) | DRG 540 ==
PROVIDERS: Admitting Provider Obstetrics & Gynecology; Visit Provider Obstetrics & Gynecology
PROC: 10D00Z1 Extraction of Products of Conception, Low, Open Approach (ICD-10-PCS; CPT 59514; principal; 2023-11-09 18:15)
DX: O24.424 Gestational diabetes mellitus in childbirth, insulin controlled (principal); O75.82 Onset (spontaneous) of labor after 37 completed weeks of gestation but before 39 completed weeks gestation, with delivery by (planned) cesarean section; O34.211 Maternal care for low transverse scar from previous cesarean delivery; O99.824 Streptococcus B carrier state complicating childbirth; O99.334 Smoking (tobacco) complicating childbirth; F17.290 Nicotine dependence, other tobacco product, uncomplicated; Z3A.38 38 weeks gestation of pregnancy; Z37.0 Single live birth; O26.843 Uterine size-date discrepancy, third trimester; O26.893 Other specified pregnancy related conditions, third trimester; R10.9 Unspecified abdominal pain; Z67.41 Type O blood, Rh negative
CPT/HCPCS: 36415; 51702; 64488; 76818; 80307; 81003; 82948; 85025; 85461; 86850; 86900; 86901; 94667; 94668; 96372; 96374; 96375; 96376; J0131; J0665; J0690; J1100; J1200; J1650; J1885; J2274; J2371; J2405; J2590; J2765; J2791; Q0162

== ENCOUNTER 2023-12-26 12:31 | Outpatient (OUT) | payer OTHER, SELFPAY ==
--- NOTE | 2023-12-26 13:03 | XR_ITS ---
[address] [address] Patient Name: BENNETT EM MRN: [id number] date: 1995 Sex: F Assigned Patient Location: [facility] Current Patient Location: [facility] Accession/Order Number: [id number] Exam Date: 12/26/2023 13:20 Report Date: 12/28/2023 09:31 At the request of: SARI AUGUSTINE Procedure: XR chest 2V PROCEDURE: XR chest 2V DATE: 12/26/2023 1:20 PM EDT COMPARISONS: None. CLINICAL INDICATION: 28 years Female vaping FINDINGS: The cardiomediastinal silhouette and pulmonary vasculature are within normal limits. The lungs are clear. There is no evidence of pleural effusion or pneumothorax. XR/XR chest 2V IMPRESSION: Chest radiograph is within normal limits. Electronically authenticated by: BK ESTRADA Date: 12/28/2023 09:31
== END 2023-12-26 12:32 | disposition home or self-care (01) ==
LOC: PST 12:32
PROVIDERS: Visit Provider Obstetrics & Gynecology
DX: Z01.810 Encounter for preprocedural cardiovascular examination (principal)
CPT/HCPCS: 71046

== ENCOUNTER 2024-01-05 06:07 | Day surgery (SDC) | payer OTHER, SELFPAY ==
[2023-12-26 13:06] VITALS: BP 123/69; PULSE 77; TEMP 36.3; O2SAT 99; BMI 28.9
[2024-01-05] VITALS (10 sets, daily range): BP systolic 117–135; BP diastolic 52–78; PULSE 61–93; TEMP 35.4–36.3; O2SAT 97–100; BMI 28.3
--- OUTSIDE RECORDS SUMMARY | 2024-01-05 06:10 | XMS_ITS | CCD ---
Author Organization [facility] Care Team Providers Care Acid Supervisor Name Role Phone Bryce De La Garza Admitting Physician Unavailable Bryce De La Garza Attending Physician Unavailable NON, STAFF Primary Care Physician Unavailab Savage Roman Rounding Physician Unavailable FEI LOO Admitting Unavailable FEI LOO Attending Unavailable Unavailable Primary Care Provider UnavailKia Jeffrey Primary Care Provider [phone] Unavailable Primary Care Provider UnavailKia Jeffrey CNP Primary Care Provider KIA SHARMA Referring Unavailable NO FAMILY, PHYSICIAN Primary Care Provider Unava DO Ed Hoover Emergency Provider [phone] MD Govind Feliberto Admit Provider [phone] MD Feliberto Faust Attending Provider Unavailable [...] Admitting Unavailable D'ABREAU, JAGDEEP Attending Unavailable EDITH, KAI Primary Care Unavailable DALJIT, YURIY Attending Unavailable [...] mg Start: 05-27-2020 take 2 tablets by [facility] every six hours as needed [...] pain 10 tablet 0 10/14/2020 10/17/2020 Active amoxicillin 875 mg oral tablet (1 source) [...] April 23, 2017 October 18, 2018 Discontinued busPIRone hydrochloride 10 mg oral tablet (20 sources) Start: 10-29-2021 take 20 mg by mouth three times daily Buspirone Active 20 MG PO Three times daily 90 15 October 29, 2021 12:00am Start: 10-09-2020 busPIRone [...] Discontinued 20 MG PO Three times daily August 16, 2019 12:00am October 26, 2021 [...] for pain famotidine 20 mg oral tablet (17 sources) Histamine-2 Receptor Antagonist Start: 07-27-2022 End: 06-13-2024 Famotidine 20 MG Oral Tablet 07/19/2023 - 06/13/2024 Provider: Mariposa Duncan CNP Start: 04-09-2019 End: [...] 13, 2019 1:00am October 26, 2021 9:02pm omeprazole 20 mg delayed release oral capsule (1 source) Proton Pump Inhibitor Start: 09-05-2022 Omeprazole 20 MG Oral Capsule Delayed Release 09/05/2022 Provider: Mariposa Duncan CNP ondansetron 4 mg disintegrating oral tablet (14 [...] 29, 2021 12:00am Start: 03-20-2020 End: 08-17-2021 Prazosin HCl 2 MG Oral Capsu le 07/15/2021 - 08/17/2021 Provider: Kia Sharma CNP Start: 04-09-2019 End: 10-26-2021 take 5 mg [...] conventional 07/01/2021 - 07/15/2021 Provider: Kia Sharma [employer]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 2 ml prochlorperazine 5 mg/ml injection (1 [...] Sig (Original) acyclovir 400 mg oral tablet (16 sources) Herpesvirus Nucleoside Analog DNA Polymerase Inhibitor, Herpes Simplex Virus Nucleoside Analog DNA Polymerase Inhibitor, Herpes Zoster Virus Nucleoside Analog DNA Polymerase Inhibitor Start: 05-28-2021 End: 07-15-2021 Acyclovir 400 MG Oral Tablet 07/01/2021 - 07/15/2021 Provider: Kia Sharma CNP [id number] 60 actuat albuterol 0.09 mg/actuat metered dose inhaler (20 sources) beta2-Adrenergic Agonist Start: 06-19-2023 End: 12-12-2023 Albuterol Sulfate HFA 108 (90 Base) MCG/ACT Inhalation Aerosol Solution 06/19/2023 - 12/12/2023 Provider: Mariposa Duncan CNP Start: 11-14-2020 take 1-2 puff(s) by mouth [...] needed for Wheezing (1-2 puffs) 0 Suspended amitriptyline hydrochloride 25 mg oral tablet (5 [...] g 0 05/27/2020 09/23/2020 Discontinued (LIST CLEANUP) 60 actuat budesonide 0.08 mg/actuat / formoterol fumarate 0.0045 mg/actuat metered dose inhaler (6 sources) Corticosteroid, beta2-Adrenergic Agonist Start: 07-27-2022 End: 08-10-2024 Symbicort 80-4.5 MCG/ACT Inhalation Aerosol 09/22/2022 - 08/17/2023 Provider: Mariposa Duncan CNP take 2 puff(s) by in halation twice daily budesonide-formoterol (SYMBICORT) 80-4.5 MCG/ACT AERO Inhale 2 puffs into the lungs 2 times daily 0 Suspended cariprazine 3 mg oral capsule (5 sources) [...] Routineon 2023 Bilirubin, SemiQt,Ur Negative Normal NEG [facility] Comment on above: Performed By: #### U A #### [facility] [address] [place] [address] Dr. [place], [place] [id number] Take Up Supervisor: Hayden Cartagena MD Blood, Urine Negative Normal NEG [facility] Comment on above: Performed By: #### U A #### [facility] [address] [place] [address] Dr. [place], [place] [phone] Take Up Supervisor: Hayden Cartagena MD Clarity (U) Clear Normal CLEAR [facility] Comment on above: Performed By: #### U A #### [facility] [address] [place] [address] [place] [address] Take Up Supervisor: Hayden Cartagena MD Color (U) Yellow Normal YEL [facility] Comment on above: Performed By: #### U A #### [address] [place], [facility]83 Take Up Supervisor: Hayden Cartagena MD Glucose Ql (U) Negative Normal NEG [facility] Comment on above: Performed By: #### U A #### [facility] [address] [place] [address] Dr. [place], [facility] Take Up Supervisor: Hayden Cartagena MD Ketones Ql (U) Negative Normal NEG [facility] Comment on above: Performed By: #### U A #### [facility] [address] [place] [address] Dr. [place], [facility] Take Up Supervisor: Hayden Cartagena MD Leukocyte esterase Test strip Ql (U) Negative Normal NEG [facility] Comment on above: Performed By: #### U A #### [facility] [address] [place] [address] [place] [address] Take Up Supervisor: Hayden Cartagena MD Nitrite,Ur Negative Normal NEG [facility] Comment on above: Performed By: #### U A #### [facility] [address] [place] [address] [place] [address] Take Up Supervisor: Hayden Cartagena MD PH,Ur 6.0 Normal 5.0-9.0 [facility] Comment on above: Performed By: #### U A #### [facility] [address] [place] [address] Dr. [place], [place] [phone] Take Up Supervisor: Hayden Cartagena MD Protein Ql (U) Negative Normal NEG [facility] in Hospital Comment on above: Performed By: #### U A #### [facility] [address] [place] [address] Dr. [place], [place] [phone] Take Up Supervisor: Hayden Cartagena MD Spec. Gary,Ur 1.020 Normal 1.010-1.020 [facility] Comment on above: Performed By: #### U A #### [address] [place], [place] [phone] Take Up Supervisor: Hayden Cartagena MD Urobilinogen,Ur Normal Normal 0.0-1.0 [facility] Comment on above: Performed By: #### U A #### [facility] [address] [place] [address] Dr. [place], [place] [phone] Take Up Supervisor: Hayden Cartagena MD Urinalysison 09-12-2023 Bilirubin Ql (U) Negative NEGATIVE [facility] Clarity (U) Clear Clear [facility] Color (U) Yellow Yellow [facility] Glucose Test strip (U) [Mass/Vol] Negative NEGATIVE mg/dL [facility] Hemoglobin Auto test strip Ql (U) Negative NEGATIVE [facility] Interpretation and review of laboratory results Abnormal [facility] Ketones (U) [Mass/Vol] Negative NEGAT ROS[place] mg/dL [facility] Leukocyte esterase Test strip Ql (U) Negative NEGATIVE [facility] Nitrite Ql (U) Negative NEGATIVE [facility] pH (U) 6.0 [pH] 5.0 - 9.0 [facility] Protein (U) [Mass/Vol] Negative NEGAT [place] mg/dL [facility] Specific gravity (U) [Rel density] Low 1.010 - 1.020 [facility] Urobilinogen Qn (U) Normal 0.0 - 1. 0 EU/dL [facility] Urinalysis, Routineon 2023 Bilirubin, SemiQt,Ur Negative Normal NEG [facility] Comment on above: Performed By: #### U A #### [facility] [address] [place] [address] Take Up Supervisor: Hayden Cartagena MD Blood, Urine Negative Normal NEG [facility] Comment on above: Performed By: #### U A #### [facility] [address] [place] [address] Take Up Supervisor: Hayden Cartagena MD Clarity (U) Clear Normal CLEAR [facility] Comment on above: Performed By: #### U A #### [facility] [address] [place], [facility]83 Take Up Supervisor: Hayden Cartagena MD Color (U) Yellow Normal YEL [facility] Comment on above: Performed By: #### U A #### [facility] [address] [place] [address] [place] [address] Take Up Supervisor: Hayden Cartagena MD Glucose Ql (U) Negative Normal NEG [facility] Comment on above: Performed By: #### U A #### [facility] [address] [place], [facility]83 Take Up Supervisor: Hayden Cartagena MD Ketones Ql (U) Negative Normal NEG [facility] Comment on above: Performed By: #### U A #### [facility] [address] [place] [address] Take Up Supervisor: Hayden Cartagena MD Leukocyte esterase Test strip Ql (U) Negative Normal NEG [facility] Comment on above: Performed By: #### U A #### [facility] [address] [place] [address] Take Up Supervisor: Hayden Cartagena MD Nitrite,Ur Negative Normal NEG [facility] Comment on above: Performed By: #### U A #### [facility] [address] [place] [address] Take Up Supervisor: Hayden Cartagena MD PH,Ur 6.0 Normal 5.0-9.0 [facility] Comment on above: Performed By: #### U A #### [facility] [address] [place], [place] [phone] Take Up Supervisor: Hayden Cartagena MD Protein Ql (U) Negative Normal NEG [facility] Comment on above: Performed By: #### U A #### [address] [place], [place] [phone] Take Up Supervisor: Hayden Cartagena MD Spec. Gary,Ur <1.005 Low 1.010-1.020 [facility] Comment on above: Performed By: #### U A #### [facility] [address] [place] [address] Dr. [place], [place] [phone] Take Up Supervisor: Hayden Cartagena MD Urobilinogen,Ur Normal Normal 0.0-1.0 [facility] Comment on above: Performed By: #### U A #### [facility] [address] [place] [address] Dr. [place], [place] [phone] Take Up Supervisor: Hayden Cartagena MD Glucose, Whole Bloodon 09-03 Glucose [Mass/Vol] 160 mg/dL High 74-100 [facility] Urinalysis, Routineon 2023 Bilirubin, SemiQt,Ur Negative Normal NEG [facility] Comment on above: Performed By: #### U MICAO, UA #### [facility] [address] [place], [place] [phone] Take Up Supervisor: Hayden Cartagena MD Blood, Urine Negative Normal NEG [facility] Comment on above: Performed By: #### U MICAO, UA #### [facility] [address] [place] [address] Dr. [place], [place] [phone] Take Up Supervisor: Hayden Cartagena MD Clarity (U) Clear Normal CLEAR [facility] Comment on above: Performed By: #### U MICAO, UA #### [facility] [address] [place] [address] Dr. [place], [place] [phone] Take Up Supervisor: Hayden Cartagena MD Color (U) Yellow Normal YEL [facility] Comment on above: Performed By: #### U MICAO, UA #### [facility] [address] [place] [address] Dr. [place], [place] [phone] Take Up Supervisor: Hayden Cartagena MD Glucose Ql (U) 1+ mg/dL Abnormal NEG [facility] Comment on above: Performed By: #### U SHANNONO, UA #### [facility] [address] [place] [address] Dr. [place], [place] [phone] Take Up Supervisor: Hayden Cartagena MD Ketones Ql (U) Negative Normal NEG [facility] Comment on above: Performed By: #### U MICAO, UA #### [address] [place], [place] [phone] Take Up Supervisor: Hayden Cartagena MD Leukocyte esterase Test strip Ql (U) Negative Normal NEG [facility] Comment on above: Performed By: #### U MICAO, UA #### [address] [place], [place] [phone] Take Up Supervisor: Hayden Cartagena MD Nitrite,Ur Negative Normal NEG [facility] Comment on above: Performed By: #### U MICAO, UA #### [address] [place] [address] Take Up Supervisor: Hayden Cartagena MD PH,Ur 6.0 Normal 5.0-9.0 [facility] Comment on above: Performed By: #### U MICAO, UA #### [address] [place], [place] [phone] Take Up Supervisor: Hayden Cartagena MD Protein Ql (U) Negative Normal NEG [facility] Comment on above: Performed By: #### U MICAO, UA #### [facility] [address] [place], [place] [phone] Take Up Supervisor: Hayden Cartagena MD Spec. Gary,Ur <1.005 Low 1.010-1.020 [facility] Comment on above: Performed By: #### U MICAO, UA #### [facility] [address] [place] [address] Dr. [place], [place] [phone] Take Up Supervisor: Hayden Cartagena MD Urobilinogen,Ur Normal Normal 0.0-1.0 [facility] Comment on above: Performed By: #### U MICAO, UA #### [facility] [address] [place] [address] Dr. [place], [place] [phone] Take Up Supervisor: Hayden Cartagena MD Urinalysis,Microon 4 Bacteria TRACE Abnormal NONE [facility] Comment on above: Performed By: #### U MICAO, UA #### [address] [place], [place] [phone] Take Up Supervisor: Hayden Cartagena MD Epithelial cells LM Ql (Urine sed) 5 TO 10 Normal 0-25 [facility] Comment on above: Performed By: #### U MICAO, UA #### [facility] [address] [place], [place] [phone] Take Up Supervisor: Hayden Cartagena MD Urine RBC's None Normal 0-2 [facility] Comment on above: Performed By: #### U MICAO, UA #### [facility] [address] [place], [place] [phone] Take Up Supervisor: Hayden Cartagena MD Urine WBC's None Normal 0-5 [facility] Comment on above: Performed By: #### U MICAO, UA #### [facility] [address] [place], [place] 1032783 Take Up Supervisor: Hayden Cartagena MD Urinalysis, Routineon 2023 Bilirubin, SemiQt,Ur Negative Normal NEG [facility] Comment on above: Performed By: #### U A #### [facility] [address] [place], [place] 9557783 Take Up Supervisor: Hayden Cartagena MD Blood, Urine Negative Normal NEG [facility] Comment on above: Performed By: #### U A #### [facility] [address] [place], [place] [phone] Take Up Supervisor: Hayden Cartagena MD Clarity (U) Clear Normal CLEAR [facility] Comment on above: Performed By: #### U A #### [facility] [address] [place], [place] [phone] Take Up Supervisor: Hayden Cartagena MD Color (U) Yellow Normal YEL [facility] Comment on above: Performed By: #### U A #### [facility] [address] [place] [address] Dr. [place], [place] [phone] Take Up Supervisor: Hayden Cartagena MD Glucose Ql (U) Negative Normal NEG [facility] Comment on above: Performed By: #### U A #### [facility] [address] [place] [address] Take Up Supervisor: Hayden Cartagena MD Ketones Ql (U) Negative Normal NEG [facility] Comment on above: Performed By: #### U A #### [facility] [address] [place] [address] Take Up Supervisor: Hayden Cartagena MD Leukocyte esterase Test strip Ql (U) Negative Normal NEG [facility] Comment on above: Performed By: #### U A #### [facility] [address] [place], [place] [phone] Take Up Supervisor: Hayden Cartagena MD Nitrite,Ur Negative Normal NEG [facility] Comment on above: Performed By: #### U A #### [facility] [address] [place] [address] Dr. [place], [place] [phone] Take Up Supervisor: Hayden Cartagena MD PH,Ur 6.0 Normal 5.0-9.0 [facility] Comment on above: Performed By: #### U A #### [facility] [address] [place], [place] 8287583 Take Up Supervisor: Hayden Cartagena MD Protein Ql (U) Negative Normal NEG [facility] Comment on above: Performed By: #### U A #### [address] [place], [place] [phone] Take Up Supervisor: Hayden Cartagena MD Spec. Gary,Ur <1.005 Low 1.010-1.020 [facility] Comment on above: Performed By: #### U A #### [facility] [address] [place] [address] Dr. [place], [place] [phone] Take Up Supervisor: Hayden Cartagena MD Urobilinogen,Ur Normal Normal 0.0-1.0 [facility] Comment on above: Performed By: #### U A #### [address] [place] [address] Take Up Supervisor: Hayden Cartagena MD Microscopic Urinalysison Bacteria LM Ql (Urine sed) 1+ Abnormal None [facility] Epithelial cells LM.HPF (Urine sed) [#/Area] 0 TO 2 [facility] Interpretation and review of laboratory results Abnormal [facility] RBC LM.HPF (Urine sed) [#/Area] None [facility] WBC LM.HPF (Urine sed) [#/Area] None [facility] Urinalysison 08-24-2023 Bilirubin Ql (U) Negative NEGATIVE [facility] Clarity (U) Clear Clear [facility] Color (U) Yellow Yellow [facility] Glucose Test strip (U) [Mass/Vol] 1+ Abnormal NEGATIVE mg/dL [facility] Hemoglobin Auto test strip Ql (U) Negative NEGATIVE [facility] Interpretation and review of laboratory results Abnormal [facility] Ketones (U) [Mass/Vol] Negative NEGAT [place] mg/dL [facility] Leukocyte esterase Test strip Ql (U) Negative NEGATIVE [facility] Nitrite Ql (U) Negative NEGATIVE [facility] pH (U) 6.0 [pH] 5.0 - 9.0 [facility] Protein (U) [Mass/Vol] Negative NEGAT [place] mg/dL [facility] Specific gravity (U) [Rel density] Low 1.010 - 1.020 [facility] Urobilinogen Qn (U) Normal 0.0 - 1. 0 EU/dL [facility] Urinalysis, Routineon 2023 Bilirubin, SemiQt,Ur Negative Normal NEG [facility] Comment on above: Performed By: #### U RC #### [address] [address] Take Up Supervisor: Claude Gonzalez MD [address] [place] [address] Take Up Supervisor: Hayden Cartagena MD Blood, Urine Negative Normal [facility] Comment on above: Performed By: #### U RC #### [facility] [place] [address] Take Up Supervisor: Claude Gonzalez MD [facility] [address] [place] [address] [place] [address] Take Up Supervisor: Hayden Cartagena MD Clarity (U) Clear Normal CLEAR [facility] Comment on above: Performed By: #### U RC #### [facility] [place] [address] Take Up Supervisor: Claude Gonzalez MD [facility] [address] [place] [address] Dr. [place] [phone] Take Up Supervisor: Hayden Cartagena MD Color (U) Yellow Normal YEL [facility] Comment on above: Performed By: #### U RC #### [facility] [address] [place] [address] Take Up Supervisor: Claude Gonzalez MD [facility] [address] [place] [address] Dr. [place], [place] [phone] Take Up Supervisor: Hayden Cartagena MD Glucose Ql (U) 1+ mg/dL Abnormal NEG [facility] Comment on above: Performed By: #### U RC #### [facility] [address] [place] [address] Take Up Supervisor: Claude Gonzalez MD [address] [place] [address] Take Up Supervisor: Hayden Cartagena MD Ketones Ql (U) Negative Normal NEG [facility] Comment on above: Performed By: #### U RC #### [facility] [address] [place] [address] Take Up Supervisor: Claude Gonzalez MD [address] [place] [address] Take Up Supervisor: Hayden Cartagena MD Leukocyte esterase Test strip Ql (U) Negative Normal NEG [facility] Comment on above: Performed By: #### U RC #### [facility] [address] [place] [address] Take Up Supervisor: Claude Gnozalez MD [facility] [address] [place] [address] [place] [address] Take Up Supervisor: Hayden Cartagena MD Nitrite,Ur Negative Normal NEG [facility] Comment on above: Performed By: #### U RC #### [facility] [address] [place] [address] Take Up Supervisor: Claude Gonzalez MD [facility] [address] [place] [address] [place] [address] Take Up Supervisor: Hayden Cartagena MD PH,Ur 6.0 Normal 5.0-9.0 [facility] Comment on above: Performed By: #### U RC #### [facility] [address] [place] [address] Take Up Supervisor: Claude Gonzalez MD [facility] [address] [place] [address] [place] [address] Take Up Supervisor: Hayden Cartagena MD Protein Ql (U) Negative Normal NEG [facility] Comment on above: Performed By: #### U RC #### [address] [address] Take Up Supervisor: Claude Gonzalez MD [address] [place] [address] Take Up Supervisor: Hayden Cartagena MD Spec. Gary,Ur <1.005 Low 1.010-1.020 [facility] Comment on above: Performed By: #### U RC #### [address] [address] Take Up Supervisor: Claude Gonzalez MD [address] [place] [address] Take Up Supervisor: Hayden Cartagena MD Urobilinogen,Ur Normal Normal 0.0-1.0 [facility] Comment on above: Performed By: #### U RC #### [address] [address] Take Up Supervisor: Claude Gonzalez MD [facility] [address] [place] [address] [place] [phone] Take Up Supervisor: Hayden Cartagena MD Urinalysis,Microon 4 Bacteria 1+ Abnormal NONE [facility] Comment on above: Performed By: #### U RC #### [address] [address] Take Up Supervisor: Claude Gonzalez MD [address] [place], [place] [phone] Take Up Supervisor: Hayden Cartagena MD Epithelial cells LM Ql (Urine sed) 0 TO 2 Normal 0-25 [facility] Comment on above: Performed By: #### U RC #### [place] [address] [place] [address] Take Up Supervisor: Claude Gonzalez MD [address] [place], [place] 8447583 Take Up Supervisor: Hayden Cartagena MD Urine RBC's None Normal 0-2 [facility] Comment on above: Performed By: #### U RC #### [address] [address] Take Up Supervisor: Claude Gonzalez MD [address] [place] [phone] Take Up Supervisor: Hayden Cartagena MD Urine WBC's None Normal 0-5 [facility] Comment on above: Performed By: #### U RC #### [address] [address] Take Up Supervisor: Claude Gonzalez MD [address] [place] [phone] Take Up Supervisor: Hayden Cartagena MD Cult,Urineon 07-01-2023 Cult,Urine Specimen Description .CLEAN CATCH URINE Culture NO SIGNIFICANT GROWTH Report Status FINAL 07/01/2023 Normal [facility] Comment on above: Performed By: #### U RC #### [address] [address] Take Up Supervisor: Claude Gonzalez MD [address] [place] [phone] Take Up Supervisor: Hayden Cartagena MD Urinalysis w/ Microon 2023 Bilirubin, SemiQt,Ur Negative Normal NEG [facility] Comment on above: Performed By: #### U AMIC #### [facility] [address] [place], [place] [phone] Take Up Supervisor: Hayden Cartagena MD Blood, Urine Negative Normal NEG [facility] Comment on above: Performed By: #### U AMIC #### [facility] [address] [place], [place] [phone] Take Up Supervisor: Hayden Cartagena MD Clarity (U) Clear Normal CLEAR [facility] Comment on above: Performed By: #### U AMIC #### [facility] [address] [place], [place] [phone] Take Up Supervisor: Hayden Cartagena MD Color (U) Yellow Normal YEL [facility] Comment on above: Performed By: #### U AMIC #### [facility] [address] [place] [address] Dr. [place], [place] [phone] Take Up Supervisor: Hayden Cartagena MD Epithelial cells LM Ql (Urine sed) 2 TO 5 Normal 0-25 [facility] Comment on above: Performed By: #### U AMIC #### [facility] [address] [place] [address] Dr. [place], [place] [phone] Take Up Supervisor: Hayden Cartagena MD Glucose Ql (U) Negative Normal NEG [facility] Comment on above: Performed By: #### U AMIC #### [facility] [address] [place] [address] Dr. [place], [place] [phone] Take Up Supervisor: Hayden Cartagena MD Ketones Ql (U) Negative Normal NEG [facility] Comment on above: Performed By: #### U AMIC #### [facility] [address] [place], [place] [phone] Take Up Supervisor: Hayden Cartagena MD Leukocyte esterase Test strip Ql (U) Negative Normal NEG [facility] Comment on above: Performed By: #### U AMIC #### [facility] [address] [place], [place] [phone] Take Up Supervisor: Hayden Cartagena MD Nitrite,Ur Negative Normal NEG [facility] Comment on above: Performed By: #### U AMIC #### [facility] [address] [place] [address] Dr. [place], [place] [phone] Take Up Supervisor: Hayden Cartagena MD PH,Ur 6.0 Normal 5.0-9.0 [facility] Comment on above: Performed By: #### U AMIC #### [facility] [address] [place], [place] [phone] Take Up Supervisor: Hayden Cartagena MD Protein Ql (U) Negative Normal NEG [facility] Comment on above: Performed By: #### U AMIC #### [address] [place], [place] [phone] Take Up Supervisor: Hayden Cartagena MD Spec. Gary,Ur 1.010 Normal 1.010-1.020 [facility] Comment on above: Performed By: #### U AMIC #### [facility] [address] [place] [address] Dr. [place], [place] [phone] Take Up Supervisor: Hayden Cartagena MD Urine RBC's None Normal 0-2 [facility] Comment on above: Performed By: #### U AMIC #### [facility] [address] [place] [address] Dr. [place], [place] [phone] Take Up Supervisor: Hayden Cartagena MD Urine WBC's None Normal 0-5 [facility] Comment on above: Performed By: #### U AMIC #### [facility] [address] [place], [place] [phone] Take Up Supervisor: Hayden Cartagena MD Urobilinogen,Ur Normal Normal 0.0-1.0 [facility] Comment on above: Performed By: #### U AMIC #### [facility] [address] [place], [place] [phone] Take Up Supervisor: Hayden Cartagena MD Cult,Urineon 05-03-2023 Cult,Urine Specimen [...] Tobramycin <=1 SUSCEPTIBLE Trimethoprim/Sulfa <=20 SUSCEPTIBLE Susceptible [facility] Comment on above: Performed By: #### U #### [address] [phone] Take Up Supervisor: Claude Gonzalez MD [facility] [address] [place] [address] [place] [address] Take Up Supervisor: Hayden Cartagena MD HIV Ag/Abon 05-02-2023 HIV Ag/Ab Non-Reactive Normal [facility] Comment on above: Result Comment: No l aboratory evidence of HIV infection. If acute HIV infection is suspected, consider testing for HIV-1 RNA. Performed By: #### U #### [address] [address] Take Up Supervisor: Claude Gonzalez MD [address] [place] [address] Take Up Supervisor: Hayden Cartagena MD T.pallidum Ab Screenon 05-01 T.pallidum Ab Screen Non-Reactive Normal NR [facility] Comment on above: Result Comment: T. pallidum antibodies are not detected. There is no serological evidence of infection with T. pallidum (early primary syphilis cannot be excluded). Retest in 2-4 weeks if syphilis is clinically suspect. Performed By: #### U RC #### [address] [phone] Take Up Supervisor: Claude Gonzalez MD [facility] [address] [place] [address] Take Up Supervisor: Hayden Cartagena MD CBC with Auto Differentialon 05-01-2023 Basophils (Bld) [#/Vol] 0.03 10*3/uL [facility] Basophils/100 WBC (Bld) 0 % 0 - 2 % B ON [facility] Eosinophils (Bld) [#/Vol] [facility] Eosinophils/100 WBC (Bld) 0 % Low 1 - 4 % [facility] Erythrocyte distribution width (RBC) [Ratio] 12.2 % 11.8 - 14.4 % [facility] Hematocrit (Bld) [Volume fraction] 36.2 % Low 36.3 - 47.1 % [facility] Hemoglobin (Bld) [Mass/Vol] 12.1 g/dL 11.9 - 15.1 g/dL [facility] Immature granulocytes (Bld) [#/Vol] [facility] Immature granulocytes/100 WBC (Bld) 0 % 0 [facility] Interpretation and review of laboratory results Abnormal [facility] Lymphocytes/100 WBC (Bld) 19 % Low 24 - 43 % [facility] Lymphocytes/100 WBC (Bld) 1.62 % [facility] MCH (RBC) [Entitic mass] 32.1 pg 25.2 - 33.5 pg [facility] MCHC (RBC) [Mass/Vol] 33.4 g/dL 28.4 - 34.8 g/dL [facility] MCV (RBC) [Entitic vol] 96.0 fL 82.6 - 102.9 fL [facility] Monocytes/100 WBC (Bld) 6 % 3 - 12 % B ON [facility] Monocytes/100 WBC (Bld) 0.51 % B ON [facility] Neutrophils/100 WBC (Bld) 75 % High 36 - 65 % [facility] Nucleated RBC/100 WBC (Bld) [Ratio] 0.0 % 0.0 per 100 WBC [facility] Platelet mean volume (Bld) [Entitic vol] 10.3 fL 8.1 - 13.5 fL [facility] Platelets (Bld) [#/Vol] 201 10*3/uL [facility] RBC (Bld) [#/Vol] 3.77 10*6/uL Low 3.95 - 5.1 1 m/uL [facility] Segmented neutrophils/100 WBC (Bld) 6.24 % [facility] WBC other (Bld) [#/Vol] 8.4 B [facility] CBC with Diffon 05-01-2023 Abs. Basophil 0.03 k/uL Normal 0.00-0.20 [facility] Comment on above: Performed By: #### C DP #### [address] [place] [phone] Take Up Supervisor: Hayden Cartagena MD #### LISA, HIVCMB, AHCV, TREP, GLYHGB, HBS #### [place] [phone] Take Up Supervisor: Claude Gonzalez MD Abs. Eosinophil <0.03 Normal 0.00-0.44 [facility] Comment on above: Performed By: #### C DP #### [address] [place] [phone] Take Up Supervisor: Hayden Cartagena MD #### LISA, HIVCMB, AHCV, TREP, GLYHGB, HBS #### [place] [phone] Take Up Supervisor: Claude Gonzalez MD Abs.Imm.Granulocyte <0.03 Normal 0.00-0.30 [facility] Comment on above: Performed By: #### C DP #### [address] [place] [phone] Take Up Supervisor: Hayden Cartagena MD #### LISA, HIVCMB, AHCV, TREP, GLYHGB, HBS #### [place] [phone] Take Up Supervisor: Claude Gonzalez MD Abs.Neutrophil (Seg) 6.24 k/uL Normal 1.50-8.10 [facility] Comment on above: Performed By: #### C DP #### [facility] [address] [place] [address] Dr. [place] [phone] Take Up Supervisor: Hayden Cartagena MD #### LISA, HIVCMB, AHCV, TREP, GLYHGB, HBS #### [address] [phone] Take Up Supervisor: Claude Gonzalez MD Basophils/100 WBC (Bld) 0 % Normal 0-[address] [facility] Comment on above: Performed By: #### C DP #### [facility] [address] [place] [address] Dr. [place] [phone] Take Up Supervisor: Hayden Cartagena MD #### LISA, HIVCMB, AHCV, TREP, GLYHGB, HBS #### [address] [phone] Take Up Supervisor: Claude Gonzalez MD Eosinophils/100 WBC (Bld) 0 % Low 1-4 [facility] Comment on above: Performed By: #### C DP #### [facility] [address] [place] [address] Dr. [place] [phone] Take Up Supervisor: Hayden Cartagena MD #### LISA, HIVCMB, AHCV, TREP, GLYHGB, HBS #### [address] [phone] Take Up Supervisor: Claude Gonzalez MD Erythrocyte distribution width (RBC) [Ratio] 12.2 % Normal 11.8-14.4 [facility] Comment on above: Performed By: #### C DP #### [facility] [address] [place] [address] Dr. [place] [phone] Take Up Supervisor: Hayden Cartagena MD #### LISA, HIVCMB, AHCV, TREP, GLYHGB, HBS #### [place] [phone] Take Up Supervisor: Claude Gonzalez MD Hematocrit (Bld) [Volume fraction] 36.2 % Low 36.3-47.1 [facility] Comment on above: Performed By: #### C DP #### [address] [place] [address] Take Up Supervisor: Hayden Cartagena MD #### LISA, HIVCMB, AHCV, TREP, GLYHGB, HBS #### [place] [address] Take Up Supervisor: Claude Gonzalez MD Hemoglobin (Bld) [Mass/Vol] 12.1 g/dL Normal 11.9-15.1 [facility] Comment on above: Performed By: #### C DP #### [address] [place] [phone] ( Take Up Supervisor: Hayden Cartagena MD #### LISA, HIVCMB, AHCV, TREP, GLYHGB, HBS #### [place] [address] Take Up Supervisor: Claude Gonzalez MD Immature granulocytes/100 WBC (Bld) 0 % Normal 0 [facility] Comment on above: Performed By: #### C DP #### [address] [place] [phone] Take Up Supervisor: Hayden Cartagena MD #### LISA, HIVCMB, AHCV, TREP, GLYHGB, HBS #### [place] [address] Take Up Supervisor: Claude Gonzalez MD Lymphocytes (Bld) [#/Vol] 1.62 10*3/uL Normal 1.10-3.70 [facility] Comment on above: Performed By: #### C DP #### [address] [place], [place] [phone] Take Up Supervisor: Hayden Cartagena MD #### LISA, HIVCMB, AHCV, TREP, GLYHGB, HBS #### [address] [phone] Take Up Supervisor: Claude Gonzalez MD Lymphocytes/100 WBC (Bld) 19 % Low 24-43 [facility] Comment on above: Performed By: #### C DP #### [address] [place] [phone] Take Up Supervisor: Hayden Cartagena MD #### LISA, HIVCMB, AHCV, TREP, GLYHGB, HBS #### [address] [phone] Take Up Supervisor: Claude Gonzalez MD MCH (RBC) [Entitic mass] 32.1 pg Normal 25.2-33.5 [facility] Comment on above: Performed By: #### C DP #### [address] [place] [phone] Take Up Supervisor: Hayden Cartagena MD #### LISA, HIVCMB, AHCV, TREP, GLYHGB, HBS #### [address] [phone] Take Up Supervisor: Claude Gonzalez MD MCHC (RBC) [Mass/Vol] 33.4 g/dL Normal 28.4-34.8 [facility] Comment on above: Performed By: #### C DP #### [address] [place] [address] Take Up Supervisor: Hayden Cartagena MD #### LISA, HIVCMB, AHCV, TREP, GLYHGB, HBS #### [address] [phone] Take Up Supervisor: Calude Gonzalez MD MCV (RBC) [Entitic vol] 96.0 fL Normal 82.6-102.9 M [facility] Comment on above: Performed By: #### C DP #### [address] [place], [place] [phone] Take Up Supervisor: Hayden Cartagena MD #### LISA, HIVCMB, AHCV, TREP, GLYHGB, HBS #### [address] [phone] Take Up Supervisor: Claude Gonzalez MD Monocytes (Bld) [#/Vol] 0.51 10*3/uL Normal 0.10-1.20 [facility] Comment on above: Performed By: #### C DP #### [address] [place], [place] [phone] Take Up Supervisor: Hayden Cartagena MD #### LISA, HIVCMB, AHCV, TREP, GLYHGB, HBS #### [address] [phone] Take Up Supervisor: Claude Gonzalez MD Monocytes/100 WBC (Bld) 6 % Normal 3-12 M [facility] Comment on above: Performed By: #### C DP #### [address] [place], [place] [phone] Take Up Supervisor: Hayden Cartagena MD #### LISA, HIVCMB, AHCV, TREP, GLYHGB, HBS #### [address] [phone] Take Up Supervisor: Claude Gonzalez MD Neutrophil (Seg) 75 % High 36-65 [facility] Comment on above: Performed By: #### C DP #### [address] [place], [place] [phone] Take Up Supervisor: Hayden Cartagena MD #### LISA, HIVCMB, AHCV, TREP, GLYHGB, HBS #### [address] [place] [address] Take Up Supervisor: Claude Gonzalez MD NRBC Automated 0.0 per 100 WBC Normal 0.0 [facility] Comment on above: Performed By: #### C DP #### [address] [place], [place] [phone] Take Up Supervisor: Hayden Cartagena MD #### LISA, HIVCMB, AHCV, TREP, GLYHGB, HBS #### [place] [phone] [place] [address] Take Up Supervisor: Claude Gonzalez MD Platelet mean volume (Bld) [Entitic vol] 10.3 fL Normal 8.1-13.5 [facility] Comment on above: Performed By: #### C DP #### [address] [place] [phone] Take Up Supervisor: Hayden Cartagena MD #### LISA, HIVCMB, AHCV, TREP, GLYHGB, HBS #### [address] [address] Take Up Supervisor: Claude Gonzalez MD Platelets (Bld) [#/Vol] 201 10*3/uL Normal 138-453 [facility] Comment on above: Performed By: #### C DP #### [address] [place] [address] Take Up Supervisor: Hayden Cartagena MD #### LISA, HIVCMB, AHCV, TREP, GLYHGB, HBS #### [address] [address] Take Up Supervisor: Claude Gonzalez MD RBC (Bld) [#/Vol] 3.77 10*6/uL Low 3.95-5.11 [facility] Comment on above: Performed By: #### C DP #### [address] [place] [address] Take Up Supervisor: Hayden Cartagena MD #### LISA, HIVCMB, AHCV, TREP, GLYHGB, HBS #### [place] [phone] [place] [address] Take Up Supervisor: Claude Gonzalez MD WBC (Bld) [#/Vol] 8.4 10*3/uL Normal 3.5-11.3 [facility] Comment on above: Performed By: #### C DP #### [facility] [address] [place] [address] [place] [address] Take Up Supervisor: Hayden Cartagena MD #### LISA, HIVCMB, AHCV, TREP, GLYHGB, HBS #### [place] [phone] [place], [place] [phone] Take Up Supervisor: Claude Gonzalez MD Hemoglobin A1Con 05-01-2023 Average glucose Estimated from glycated hemoglobin (Bld) [Mass/Vol] 85 mg/dL [facility] Comment on above: The ADA and AACC rec ommend providing the estimated average glucose result to permit better patient understanding of their HBA1c result. HbA1c (Bld) [Mass fraction] 4.6 % 4.0 - 6.0 % [facility] Glucose [Mass/Vol] 85 mg/dL Normal [facility] Comment on above: Result Comment: The ADA and AACC recommend providing the estimated average glucose result to permit better patient understanding of their HBA1c result. Performed By: #### U RC #### [facility] [address] [place] [address] Take Up Supervisor: Claude Gonzalez MD [facility] [address] [place] [address] [place] [address] Take Up Supervisor: Hayden Cartagena MD HbA1c (Bld) [Mass fraction] 4.6 % Normal 4.0-6.0 [facility] Comment on above: Performed By: #### U RC #### [address] [address] Take Up Supervisor: Claude Gonzalez MD [facility] [address] [place] [address] [place]. [place], [place] [phone] Take Up Supervisor: Hayden Cartagena MD Hep B Surf Agon 05-01-2023 Hep B Surf Ag Non-Reactive Normal [facility] Comment on above: Performed By: #### U RC #### [place] [address] [place], [place] [phone] Take Up Supervisor: Claude Gonzalez MD [facility] [address] [place] [address] [place]. [place], [place] [phone] Take Up Supervisor: Hayden Cartagena MD Hep C Abon 05-01-2023 Hep C Ab Non-Reactive Normal [facility] Comment on above: Result Comment: [...] PCR. Performed By: #### C DP #### [address] [place] [address] Take Up Supervisor: Hayden Cartagena MD #### LISA, HIVCMB, AHCV, TREP, GLYHGB, HBS #### [place] [phone] [place], [place] [phone] Take Up Supervisor: Claude Gonzalez MD Hepatitis B Surface Antigeno n 05-01-2023 HBV surface Ag IA Ql Non-Reactive NONREACTIVE B [facility] Hepatitis C Antibodyon 04-30 HCV Ab IA Ql Non-Reactive NONREACTIVE [facility] Comment on above: The hepatitis [...] by PCR. No Panel Informationon 04-30 [facility] Rubella Ab, IgGon 05-01-2023 Rubella Ab, IgG >500.0 Normal [facility] Comment on above: Result Comment: REFERENCE RANGE: <5.0 NON-REACTIVE (non-immune) 5.0 TO 9.9 EQUIVOCAL >=10.0 REACTIVE (immune) Performed By: #### U RC #### [facility] [address] [place] [address] Take Up Supervisor: Claude Gonzalez MD [facility] [address] [place] [address] [place] [address] Take Up Supervisor: Hayden Cartagena MD Rubella antibody, IgGon Rubella virus IgG IA Ql IU/mL B ON [facility] Comment on above: REFERENCE RANGE: <5.0 NON-REACTIVE (non-immune) 5.0 TO 9.9 EQUIVOCAL >=10.0 REACTIVE (immune) [facility] TYPE AND SCREENon 05-01-2023 ABO and Rh group Nom (Bld) Blood group O Rh(D) negative [facility] Blood Bank Sample Expiration 05/04/2023,2359 [facility] Blood group antibodies identified Nom Negative [facility] Type + Screenon 05-01-2023 Type + Screen Sample Expiration 05/04/2023,2359 ABO/Rh(D) O NEGATIVE Antibody Screen NEGATIVE [facility] Comment on above: Performed By: #### T YS #### [facility] [address] [place] [address] [place] [address] Take Up Supervisor: Hayden Cartagena MD CBC with Auto Differentialon 08-03-2022 Basophils (Bld) [#/Vol] 0.04 10*3/uL [facility] Basophils/100 WBC (Bld) 0 % 0 - 2 % B [facility] Eosinophils (Bld) [#/Vol] [facility] Eosinophils/100 WBC (Bld) 0 % Low 1 - 4 % [facility] Erythrocyte distribution width (RBC) [Ratio] 12.2 % 11.8 - 14.4 % [facility] Hematocrit (Bld) [Volume fraction] 39.4 % 36.3 - 47.1 % [facility] Hemoglobin (Bld) [Mass/Vol] 13.2 g/dL 11.9 - 15.1 g/dL [facility] Immature granulocytes (Bld) [#/Vol] [facility] Immature granulocytes/100 WBC (Bld) 0 % 0 [facility] Interpretation and review of laboratory results Abnormal [facility] Lymphocytes/100 WBC (Bld) 17 % Low 24 - 43 % [facility] Lymphocytes/100 WBC (Bld) 1.86 % [facility] MCH (RBC) [Entitic mass] 32.1 pg 25.2 - 33.5 pg [facility] MCHC (RBC) [Mass/Vol] 33.5 g/dL 28.4 - 34.8 g/dL [facility] MCV (RBC) [Entitic vol] 95.9 fL 82.6 - 102.9 fL [facility] Monocytes/100 WBC (Bld) 4 % 3 - 12 % B ON [facility] Monocytes/100 WBC (Bld) 0.42 % B ON [facility] Neutrophils/100 WBC (Bld) 79 % High 36 - 65 % [facility] NRBC Automated 0.0 0.0 per 100 WBC [facility] Platelet mean volume (Bld) [Entitic vol] 10.5 fL 8.1 - 13.5 fL [facility] Platelets (Bld) [#/Vol] 213 10*3/uL [facility] RBC (Bld) [#/Vol] 4.11 10*6/uL 3.95 - 5.1 1 m/uL [facility] Segmented neutrophils/100 WBC (Bld) 8.49 % High [facility] WBC other (Bld) [#/Vol] 10.8 B ON [facility] CMPon 08-03-2022 Albumin [Mass/Vol] 4.6 g/dL 3.5 - 5.2 g/dL [facility] Albumin/Globulin [Mass ratio] 1.5 {ratio} 1.0 - 2.5 [facility] ALP [Catalytic activity/Vol] 79 U/L 35 - 104 U/L [facility] ALT [Catalytic activity/Vol] 9 U/L 5 - 33 U/L [facility] Anion gap [Moles/Vol] 11 mmol/L 9 - 17 mmol/L [facility] AST [Catalytic activity/Vol] 13 U/L NINF - 32 U/L [facility] Bilirubin [Mass/Vol] 1.1 mg/dL 0.3 - 1 .2 mg/dL [facility] Calcium [Mass/Vol] 10.0 mg/dL 8.6 - 10. 4 mg/dL [facility] Chloride [Moles/Vol] 104 mmol/L 98 - 10 7 mmol/L [facility] CO2 [Moles/Vol] 26 mmol/L 20 - 31 mmol/L [facility] Creatinine [Mass/Vol] 0.68 mg/dL 0.50 - 0.90 mg/dL [facility] GFR/1.73 sq M.predicted MDRD (S/P/Bld) [Vol rate/Area] - PINF [facility] Comment on above: These results are [...] 90 mg/dL 70 - 99 mg/dL [facility] Interpretation and review of laboratory results Abnormal [facility] Potassium [Moles/Vol] 3.4 mmol/L Low 3.7 - 5.3 mmol/L [facility] Protein [Mass/Vol] 7.7 g/dL 6.4 - 8.3 g/dL [facility] Sodium [Moles/Vol] 141 mmol/L 135 - 144 mmol/L [facility] Urea nitrogen [Mass/Vol] 6 mg/dL 6 - 20 mg/dL [facility] Urea nitrogen/Creatinine [Mass ratio] 9 mg/mg 9 - [address] [facility] [address] ABDOMEN PELVIS WO CONTRAS T Additional Contrast? Noneon 08-03-2022 1. No acute infective or inflammatory process. 2. No urinary tract calculi. 3. No bowel obstruction. [facility] EXAMINATION: CT OF THE ABDOMEN AND [...] superficial soft tissues show no acute process. [facility] Cody Gregg MD [...] urinary tract calculi. 3. No bowel obstruction. [email or web address] Work Phone: Radiology Study observation (narrative) [employer] Work Phone: CT ABDOMEN PELVIS WO CONTRAS T Additional Contrast? NoneOrdered By: Cody Gregg on 08-03-2022 [email or web address] Work Phone: Microscopic Urinalysison Bacteria LM Ql (Urine sed) 4+ Abnormal None [email or web address] Epithelial cells LM.HPF (Urine sed) [#/Area] 10 TO 20 [email or web address] Interpretation and review of laboratory results Abnormal [email or web address] RBC LM.HPF (Urine sed) [#/Area] 10 TO 20 [email or web address] WBC LM.HPF (Urine sed) [#/Area] 20 TO 50 [employer] Urinalysis with Reflex to Cu ltureon 08-03-2022 Bilirubin Ql (U) Negative NEGATIVE [employer] Clarity (U) Cloudy Abnormal Clear [email or web address] Color (U) Yellow Yellow [email or web address] Glucose Test strip (U) [Mass/Vol] Negative NEGATIVE [facility] Hemoglobin Auto test strip Ql (U) 3+ Abnormal NEGATIVE [facility] Interpretation and review of laboratory results Abnormal [facility] Ketones (U) [Mass/Vol] Negative NEGATIVE [facility] Leukocyte esterase Test strip Ql (U) SMALL Abnormal NEGATIVE [facility] Nitrite Ql (U) Positive Abnormal NEGATIVE [facility] pH (U) 6.0 [pH] 5.0 - 9.0 [facility] Protein (U) [Mass/Vol] 2+ Abnormal NEGATIVE [facility] Specific gravity (U) [Rel density] 1.025 High 1.010 - 1.020 [facility] Urobilinogen Qn (U) Normal Normal [facility] hCG, quantitative, on 08-03-2022 hCG Quant NINF [facility] Comment on above: Non-preg premeno <=5 Postmeno <=8 Male <=3 If HCG results do not concur with clinical observations, additional testing to confirm results is recommended. [facility] DIGITAL DIAGNOSTIC BILATERALon 06-03-2022 Radiology Study observation (narrative) [facility] Work Phone: No Panel Informationon 06-03 1. Negative bilateral mammogram. 2. No evidence for a discrete abscess or cellulitis in the periareolar right breast, for which clinical follow-up is recommended. BI-RADS 2 BIRADS: BIRADS - CATEGORY 2 Benign Findings. OVERALL ASSESSMENT - BENIGN A letter of notification will be sent to the patient regarding the results. [employer] recommends annual mammograms for women 40 years and older. [facility] RIS CONSOLIDATED EXAMINATION: DIAGNOSTIC DIGITAL BILATERAL [...] subcutaneous edema appreciated. No duct dilatation identified. [facility] RIS CONSOLID[facility] No Panel InformationOrdered By: Matt Sharma on 06-03-2022 [facility] Work Phone: US BREAST LIMITED RIGHTon Radiology Study observation (narrative) [facility] [employer] Work Phone: CBC with Auto Differentialon 04-24-2022 Absolute Eos # [facility] [employer] Absolute Immature Granulocyte 0.05 [facility] Absolute Lymph # 0.56 Low [facility] Absolute Tompkins # 0.78 [facility] [employer] Basophils (Bld) [#/Vol] 0.04 10*3/uL [facility] Basophils/100 WBC (Bld) 0 % 0 - 2 % B [facility] [employer] Eosinophils/100 WBC (Bld) 0 % Low 1 - 4 % [facility] Hematocrit (Bld) [Volume fraction] 43.7 % 36.3 - 47.1 % [facility] Hemoglobin (Bld) [Mass/Vol] 15.6 g/dL High 11.9 - 15.1 g/dL [facility] Immature granulocytes/100 WBC (Bld) 0 % 0 [facility] Interpretation and review of laboratory results Abnormal [facility] Lymphocytes/100 WBC (Bld) 4 % Low 24 - 43 % [facility] MCH (RBC) [Entitic mass] 33.1 pg 25.2 - 33.5 pg [facility] MCHC (RBC) [Mass/Vol] 35.7 g/dL High 28.4 - 34.8 g/dL [facility] MCV (RBC) [Entitic vol] 92.8 fL 82.6 - 102.9 fL [facility] Monocytes/100 WBC (Bld) 5 % 3 - 12 % B ON [facility] NRBC Automated 0.0 0.0 per 100 WBC [facility] Platelet distribution width (Bld) [Ratio] 12.3 % 11.8 - 14.4 % [facility] Platelet mean volume (Bld) [Entitic vol] 10.5 fL 8.1 - 13.5 fL [facility] Platelets (Bld) [#/Vol] 174 10*3/uL [facility] RBC (Bld) [#/Vol] 4.71 10*6/uL 3.95 - 5.1 1 m/uL [facility] Segmented neutrophils/100 WBC (Bld) 91 % High 36 - 65 % [facility] Segs Absolute 13.82 High [facility] WBC (Bld) [#/Vol] 15.3 10*3/uL High [facility] CMPon 04-24-2022 Albumin [Mass/Vol] 4.8 g/dL 3.5 - 5.2 g/dL [facility] Albumin/Globulin [Mass ratio] 1.6 {ratio} 1.0 - 2.5 [facility] ALP [Catalytic activity/Vol] 87 U/L 35 - 104 U/L [facility] ALT [Catalytic activity/Vol] 19 U/L 5 - 33 U/L [facility] Anion gap [Moles/Vol] 17 mmol/L 9 - 17 mmol/L [facility] AST [Catalytic activity/Vol] 23 U/L NINF - 32 U/L [facility] Bilirubin [Mass/Vol] 1.0 mg/dL 0.3 - 1 .2 mg/dL [facility] Calcium [Mass/Vol] 10.4 mg/dL 8.6 - 10. 4 mg/dL [facility] Chloride [Moles/Vol] 105 mmol/L 98 - 10 7 mmol/L [facility] CO2 [Moles/Vol] 19 mmol/L Low 20 - 31 mmol/L [facility] Creatinine [Mass/Vol] 0.84 mg/dL 0.50 - 0.90 mg/dL [facility] GFR/1.73 sq M.predicted MDRD (S/P/Bld) [Vol rate/Area] - PINF [facility] Comment on above: These results are [...] 151 mg/dL High 70 - 99 mg/dL [facility] Interpretation and review of laboratory results Abnormal [facility] Potassium [Moles/Vol] 3.9 mmol/L 3.7 - 5.3 mmol/L [facility] Protein [Mass/Vol] 7.8 g/dL 6.4 - 8.3 g/dL [facility] Sodium [Moles/Vol] 141 mmol/L 135 - 144 mmol/L [facility] Urea nitrogen [Mass/Vol] 9 mg/dL 6 - 20 mg/dL [facility] Urea nitrogen/Creatinine (Bld) [Mass ratio] 11 9 - [address] [facility] [address] ABDOMEN PELVIS W IV CONTR [...] pathologic adenopathy. Bones/Soft Tissues: No acute abnormality [facility] Rogelio Cantor MD - 04/24/2022 EXAMINATION: CT [...] Otherwise, no acute intra-abdominal or pelvic abnormality [facility] [employer] Work Phone: Radiology Study observation (narrative) [facility] Work Phone: CT ABDOMEN PELVIS W IV CONTR AST Additional Contrast? NoneOrdered By: Rogelio Lima on 04-24-2022 [facility] Work Phone: Lactic Acidon 04-24-2022 Lactate (P samantha) [Moles/Vol] 2.1 mmol/L 0.5 - 2.2 mmol/L [facility] Lipaseon 04-24-2022 Lipase [Catalytic activity/Vol] 24 U/L 13 - 60 U/L [facility] Microscopic Urinalysison Bacteria, UA 1+ Abnormal None [facility] Epithelial Cells UA 5 TO 10 [facility] Interpretation and review of laboratory results Abnormal [facility] Mucus, UA 1+ Abnormal None [facility] RBC clumps Auto (Urine sed) [#/Area] None [facility] WBC, UA 0 TO 2 [facility] No Panel Informationon 04-24 [facility] Urinalysison 04-24-2022 Bilirubin Urine Negative NEGATIVE [facility] Color, UA Yellow Yellow [facility] Glucose Auto test strip (U) [Mass/Vol] Negative NEGATIVE [facility] Interpretation and review of laboratory results Abnormal [facility] Ketones (U) [Mass/Vol] 2+ Abnormal NEGATIVE [facility] Leukocyte esterase Auto test strip Ql (U) Negative NEGATIVE [facility] Nitrite Auto test strip Ql (U) Negative NEGATIVE [facility] Protein (U) [Mass/Vol] 5.0 - 9.0 [facility] Protein (U) [Mass/Vol] Negative NEGATIVE [facility] Specific Gary, UA 1.010 1.010 - 1.020 B ON [facility] Turbidity UA SLIGHTLY CLOUDY Abnormal Clear [facility] Urine Hgb Negative NEGATIVE [facility] Urobilinogen, Urine Normal Normal [facility] , urineon 3 Beta HCG ( test) Ql (U) Negative NEGATIVE [facility] Comment on above: Specimens with hCG l evels near the threshold of the test (25 mIU/mL) may give a negative or indeterminate result. In such cases, another test should be performed with a new specimen in 48-72 hours. If early is suspected clinically in this setting, correlation with quantitative serum b-hCG level is suggested. [employer] has confirmed the use of plasma for this test. This has not been cleared or approved by the U.S. Food and Drug Administration. The FDA has determined that such clearance is not necessary. [facility] Cholesterol [Mass/volume] in Serum or PlasmaOrdered By: Feliberto Faust on 10-27-2021 Cholesterol [Mass/Vol] 102 mg/dL 140-200 [facility] Comment on above: Chol less than 200 m g/dl low risk Chol 201-239 mg/dl borderline risk Chol 240 mg/dl and greater high risk Cholesterol in LDL Calc [Mas s/Vol]Ordered By: Feliberto Faust on 10-27-2021 Cholesterol in LDL [Mass/Vol] 58 mg/dL 0-100 [facility] Comment on above: LDL ATP III CLASSIFI CATION LDL less than 100 mg/dL Optimal LDL 100-129 mg/dL Near or above optimal LDL 130-159 mg/dL Borderline high LDL 160-189 mg/dL High LDL greater than 189 mg/dL Very high Cholesterol in VLDL Calc [Ma ss/Vol]Ordered By: Feliberto Faust on 10-27-2021 Cholesterol in VLDL [Mass/Vol] 13 mg/dL [facility] ECG 12 lead ECGon 10-27-2021 ECG 12 lead ECG [facility] [place] [address] [place] [address] Electrocardiograph Report Signed Patient: Bennett Vaughn MR#: [id number] 7 : 1995 Acct:[id number] Age/Sex: 26 / F ADM Date: 10/26/21 Loc: Room: [address] [place] [address] Type: DIS IN Attending Dr: Feliberto Faust [...] : 416 ms Sinus bradycardia with short OR Otherwise normal ECG When compared with ECG of 10-APR-2019 09:44, Vent. rate has decreased BY 29 BPM Confirmed by PAYAM LIVINGSTON DO ([id number]) on 10/27/2021 1:03:16 PM Referred By: Electronically Signed By:PAYAM LIVINGSTON DO Transcribed By: MUS Signed By Payam Livingston DO 10/27 1303 Normal [facility] Lipid Panelon 10-27-2021 Cholesterol [Mass/Vol] 102 mg/dL Low 140-200 [facility] Comment on above: Result Comment: Chol less than 200 mg/dl low risk Chol 201-239 mg/dl borderline risk Chol 240 mg/dl and greater high risk Performed By: #### L IPID, TSH3 wRFLX, [id number] #### [facility] [address] [place] [id number] [place] Cholesterol in HDL [Mass/Vol] 30 mg/dL Low 35-85 [facility] Comment on above: Result Comment: HDL CHOL ATP-III CLASSIFICATION Cardiovascular Risk HDL > or equal to 60 mg/dL LOW HDL < 40 mg/dL HIGH Performed By: #### L IPID, TSH3 wRFLX, [id number] #### [facility] [address] [place] [address] [place] Cholesterol.total/Fanny sterol in HDL [Mass ratio] 3.4 {ratio} Normal <5.0 [facility] Comment on above: Performed By: #### L IPID, TSH3 wRFLX, [id number] #### [facility] [address] [place] [address] [place] LDL Cholesterol,Calculated 58 mg/dL Normal 0-100 [facility] Comment on above: Result Comment: LDL ATP III CLASSIFICATION LDL less than 100 mg/dL Optimal LDL 100-129 mg/dL Near or above optimal LDL 130-159 mg/dL Borderline high LDL 160-189 mg/dL High LDL greater than 189 mg/dL Very high Performed By: #### L IPID, TSH3 wRFLX, [id number] #### [facility] [address] Triglyceride w/Reflex 68 mg/dL Normal 35-149 [facility] Comment on above: Result Comment: TRIG ATP III CLASSIFICATION TRIG less than 150 mg/dL Normal TRIG 150-199 mg/dL Borderline high TRIG 200-500 mg/dL High TRIG greater than 500 mg/dL Very high Standard traceable to the Center for Disease Conrtrol and Prevention (CDC) test method. Performed By: #### L IPID, TSH3 wRFLX, [id number] #### [facility] [address] VLDL CHOLESTEROL 13 mg/dL Normal [facility] Comment on above: Performed By: #### L IPID, TSH3 wRFLX, [id number] #### [facility] [address] No Panel InformationOrdered By: Feliberto Faust on 10-27-2021 25-Hydroxy Vitamin D Total 36.4 ng/mL 30-100 [facility] Comment on above: VITAMIN D STATUS [...] Cholesterol in HDL [Mass/Vol] 30 mg/dL 35-85 [facility] Comment on above: HDL CHOL ATP-III CLA SSIFICATION Cardiovascular Risk HDL > or equal to 60 mg/dL LOW HDL < 40 mg/dL HIGH Serum or plasma total choles terol/high density lipoprotein (HDL) cholesterol mass ratOrdered By: Feliberto Faust on 10-27-2021 Cholesterol.total/Fanny sterol in HDL [Mass ratio] 3.4 {ratio} <5.0 [facility] TSH DL <= 0.005 mIU/L QnOrde red By: Feliberto Faust on 10-27-2021 TSH Qn 1.28 m[IU]/L 0.45-5.33 [facility] Thyroid Stim Hormone w/Rflxo n 10-27-2021 Thyroid Stim Hormone w/Rflx 1.28 u[iU]/mL Normal 0.45-5.33 [facility] Comment on above: Performed By: #### L IPID, TSH3 wRFLX, [id number] #### [facility] [address] [place] [address] [place] Triglyceride [Mass/volume] i n Serum or PlasmaOrdered By: Feliberto Faust on 10-27-2021 Triglyceride [Mass/Vol] 68 mg/dL 35-149 [facility] Comment on above: TRIG ATP III CLASSIF ICATION TRIG less than 150 mg/dL Normal TRIG 150-199 mg/dL Borderline high TRIG 200-500 mg/dL High TRIG greater than 500 mg/dL Very high Standard traceable to the Center for Disease Conrtrol and Prevention (CDC) test method. Vitamin D 25 Hydroxy Totalon 10-27-2021 Vitamin D 25 Hydroxy Total 36.4 ng/mL Normal 30-100 [facility] Comment on above: Result Comment: KELSEY MIN D STATUS 25(OH)VITAMIN D RANGE (ng/mL) Deficient <20 Insufficient 20 to <30 Sufficient 30 to 100 Reference: Kath MF,Ramón NC, Teetee DAVIS, et al. Evaluation,treatment, and prevention of vitamin D deficiency; an Endocrine Society clinical practice guideline. JCEM. 2010; 96(7):1911-30. PERFORMED BY: [address] [place] [address] PATHOLOGIST [employer] ENGINEERING TECHNICIAN JAMES MCNAIR M.D. Performed By: #### C BC, ETOH, CMP #### [facility] [address] [place] [address] [place] Albumin [Mass/volume] in Ser um or PlasmaOrdered By: Ed Amaral on 10-26-2021 Albumin [Mass/Vol] 4.0 g/dL 3.2-5.5 [facility] Amphetamine Screen Ql (U)Ord ered By: Ed Amaral on 10-26-2021 Amphetamines Ql (U) Negative Negative [facility] Automated erythrocytes count in urine sediment (number/area)Ordered By: Ed Amaral on 10-26-2021 RBC Auto (Urine sed) [#/Area] 0-1 [HPF] 0-4 [facility] Automated leukocytes count i n urine sediment (number/area)Ordered By: Ed Amaral on 10-26-2021 WBC Auto (Urine sed) [#/Area] 1-2 [HPF] 0-4 [facility] Automated urine color determ inationOrdered By: Ed Amaral on 10-26-2021 Color (U) Yellow Normal Yellow [facility] Comment on above: Order Comment: Name Collection Type:: Clean-Voided Midstream Performed By: #### S OFIANEG, URDS, ADDONUAPLUS, UHCG, COVID-19 FELI #### [address] Barbiturates [Presence] in U rineOrdered By: Ed Amaral on 10-26-2021 Barbiturates Ql (U) Negative Negative [facility] Basophils Auto (Bld) [#/Vol] Ordered By: Ed Amaral on 10-26-2021 Basophils (Bld) [#/Vol] 0.1 10*3/uL 0.0-0.2 [facility] Basophils/100 WBC Auto (Bld) Ordered By: Ed Amaral on 10-26-2021 Basophils/100 WBC (Bld) 0.8 % . [facility] Benzodiazepines [Presence] i n UrineOrdered By: Ed Amaral on 10-26-2021 Benzodiazepines Ql (U) Negative Negative [facility] Bilirubin Test strip Ql (U)O rdered By: Ed Amaral on 10-26-2021 Bilirubin Ql (U) Negative Negative [facility] Blood hemoglobin measurement (mass/volume)Ordered By: Ed Amaral on 10-26-2021 Hemoglobin (Bld) [Mass/Vol] 13.3 g/dL 11.8-15.4 [facility] Blood leukocytes automated c ount (number/volume)Ordered By: Ed Ralphclaudette on 10-26-2021 WBC (Bld) [#/Vol] 10.2 10*3/uL 4.5-11.0 [facility] COVID-19 Antigenon 2 COVID-19 Antigen [...] developed and its performance characteristic determined by [employer] and validated at [facility]. This test has not been FDA [...] for SARS Antigen by ERNESTO PERFORMED BY: [facility] [place] [address] PATHOLOGIST [employer] ENGINEERING TECHNICIAN JAMES MCNAIR M.D. Normal [facility] Comment on above: Performed By: #### S OFIANEG, URDS, ADDONUAPLUS, UHCG, COVID-19 FELI #### [facility] [address] [place] [address] [place] COVID-19 SOFIAOrdered By: Archie Amaral on 10-26-2021 SARS-CoV+SARS-CoV-2 (COVID-19) Ag IA.rapid Ql (Resp) Negative Negative [facility] Comment on above: This is a duplicate [employer] SARS Antigen (ERNESTO) result to be used for statistical tracking purpose only. Cannabinoids [Presence] in U rine by Screen methodOrdered By: Ed Amaral on 10-26-2021 Cannabinoids Screen Ql (U) Positive Negative [facility] Comment on above: These are unconfirme d results and should not be used for legal purposes. Drug Cut-Off Concentration: AMPH 1000 ng/mL SANCHEZ 200 ng/mL RENZO 200 ng/mL COCM 300 ng/mL OP 300 ng/mL PCP 25 ng/mL THC 20 ng/mL Complete Blood Count Auto Di ffon 10-26-2021 Basophils (Bld) [#/Vol] 0.1 10*3/uL Normal 0.0-0.2 [facility] Comment on above: Result Comment: PERF ORMED BY: [place] [address] PATHOLOGIST [employer] ENGINEERING TECHNICIAN JAMES MCNAIR M.D. Performed By: #### C BC, ETOH, CMP #### [facility] [address] [place] [address] [place] Basophils/100 WBC (Bld) 0.8 % Normal . [facility] Comment on above: Performed By: #### C BC, ETOH, CMP #### [facility] [address] [place] [address] [place] Eosinophils (Bld) [#/Vol] 0.2 10*3/uL Normal 0.0-0.45 [facility] Comment on above: Performed By: #### C BC, ETOH, CMP #### [facility] [address] [place] [address] [place] Eosinophils/100 WBC (Bld) 1.9 % Normal . [facility] Comment on above: Performed By: #### C BC, ETOH, CMP #### [facility] [address] Erythrocyte distribution width (RBC) [Ratio] 13.0 % Normal 11.9-15.3 [facility] Comment on above: Performed By: #### C BC, ETOH, CMP #### [facility] [address] Hematocrit (Bld) [Volume fraction] 39.1 % Normal 34.0-46.4 [facility] Comment on above: Performed By: #### C BC, ETOH, CMP #### [facility] [address] Hemoglobin (Bld) [Mass/Vol] 13.3 g/dL Normal 11.8-15.4 [facility] Comment on above: Performed By: #### C BC, ETOH, CMP #### [address] Lymphocytes (Bld) [#/Vol] 2.2 10*3/uL Normal 1.00-4.8 [facility] Comment on above: Performed By: #### C BC, ETOH, CMP #### [address] Lymphocytes/100 WBC (Bld) 21.5 % Normal . [facility] Comment on above: Performed By: #### C BC, ETOH, CMP #### [address] MCH (RBC) [Entitic mass] 32.9 pg Normal 24.7-34.3 [facility] Comment on above: Performed By: #### C BC, ETOH, CMP #### [facility] [address] MCV (RBC) [Entitic vol] 96.5 fL Normal 80-100 [facility] Comment on above: Performed By: #### C BC, ETOH, CMP #### [address] Mean Corpuscular HGB Conc 34.1 g/dL Normal 32.0-35.0 [facility] Comment on above: Performed By: #### C BC, ETOH, CMP #### [facility] [address] [place] [address] [place] Monocytes (Bld) [#/Vol] 0.6 10*3/uL Normal 0.0-0.8 [facility] Comment on above: Performed By: #### C BC, ETOH, CMP #### [facility] [address] [place] [address] [place] Monocytes/100 WBC (Bld) 6.2 % Normal . [facility] Comment on above: Performed By: #### C BC, ETOH, CMP #### [facility] [address] [place] [address] [place] Neutrophils (Bld) [#/Vol] 7.1 10*3/uL Normal 1.8-7.7 [facility] Comment on above: Performed By: #### C BC, ETOH, CMP #### [facility] [address] [place] [address] [place] Neutrophils/100 WBC (Bld) 69.6 % Normal . [facility] Comment on above: Performed By: #### C BC, ETOH, CMP #### [facility] [address] [place] [address] [place] Nucleated RBC/100 WBC (Bld) [Ratio] 0.0 % Normal 0-0.5 [facility] Comment on above: Performed By: #### C BC, ETOH, CMP #### [facility] [address] [place] [address] [place] Platelet mean volume (Bld) [Entitic vol] 9.0 fL Normal 6.3-10.7 [facility] Comment on above: Performed By: #### C BC, ETOH, CMP #### [facility] [address] [place] [address] [place] Platelets (Bld) [#/Vol] 173 10*3/uL Normal 150-450 [facility] Comment on above: Performed By: #### C BC, ETOH, CMP #### [facility] [address] [place] [address] [place] RBC (Bld) [#/Vol] 4.05 10*6/uL Normal 3.60-5.00 [facility] Comment on above: Performed By: #### C BC, ETOH, CMP #### [facility] [address] [place] [address] WBC (Bld) [#/Vol] 10.2 10*3/uL Normal 4.5-11.0 [facility] Comment on above: Performed By: #### C BC, ETOH, CMP #### [address] Comprehensive Metabolic Pane vinita 10-26-2021 Albumin [Mass/Vol] 4.0 g/dL Normal 3.2-5.5 [facility] Comment on above: Performed By: #### C BC, ETOH, CMP #### [address] Albumin/Globulin [Mass ratio] 1.5 {ratio} Normal [facility] Comment on above: Performed By: #### C BC, ETOH, CMP #### [facility] [address] [place] [address] ALP [Catalytic activity/Vol] 55 U/L Normal 32-92 [facility] Comment on above: Performed By: #### C BC, ETOH, CMP #### [address] ALT [Catalytic activity/Vol] 20 U/L Normal 10-60 [facility] Comment on above: Performed By: #### C BC, ETOH, CMP #### [address] Anion gap [Moles/Vol] 10.1 mmol/L Normal 6.0-15.0 [facility] Comment on above: Performed By: #### C BC, ETOH, CMP #### [address] AST [Catalytic activity/Vol] 17 U/L Normal 10-42 [facility] Comment on above: Performed By: #### C BC, ETOH, CMP #### [place] [id number] [place] Bilirubin [Mass/Vol] 0.4 mg/dL Normal 0.3-1.2 [facility] Comment on above: Performed By: #### C BC, ETOH, CMP #### [facility] [address] Calcium [Mass/Vol] 9.5 mg/dL Normal 8.2-10.2 [facility] Comment on above: Performed By: #### C BC, ETOH, CMP #### [facility] [address] Chloride [Moles/Vol] 104 mmol/L Normal 95-114 [facility] Comment on above: Performed By: #### C BC, ETOH, CMP #### [address] CO2 [Moles/Vol] 25.3 mmol/L Normal 22.0-30.0 [facility] Comment on above: Performed By: #### C BC, ETOH, CMP #### [address] Creatinine [Mass/Vol] 0.81 mg/dL Normal 0.44-1.03 [facility] Comment on above: Performed By: #### C BC, ETOH, CMP #### [address] Creatinine Clr Calc Pharmacy 97.62 [facility] Comment on above: Result Comment: PERF ORMED BY: [place] [address] PATHOLOGIST [employer] ENGINEERING TECHNICIAN JAMES MCNAIR M.D. Performed By: #### C BC, ETOH, CMP #### [address] Estimated GFR ( Nette > 60 Normal [facility] Comment on above: Result Comment: GFR estimated reference range: According to KDOQI guidelines, <60 ml/min/1.73m2 is sufficient to diagnose a patient with chronic kidney disease. Performed By: #### C BC, ETOH, CMP #### [address] Estimated GFR (Non- Am > 60 Normal [facility] Comment on above: Performed By: #### C BC, ETOH, CMP #### [facility] [address] Globulin (S) [Mass/Vol] 2.7 g/dL Normal [facility] Comment on above: Performed By: #### C BC, ETOH, CMP #### [facility] [address] Glucose [Mass/Vol] 98 mg/dL Normal 70-100 [facility] Comment on above: Result Comment: [facility] Glucose Reference Range is dependent on time and content of last meal. Glucose of more than 200 mg/dL in a nonstressed, ambulatory subject supports the diagnosis of Diabetes Mellitus. ADA recommended reference range Performed By: #### C BC, ETOH, CMP #### [facility] [address] Potassium [Moles/Vol] 3.4 mmol/L Low 3.5-5.1 [facility] Comment on above: Performed By: #### C BC, ETOH, CMP #### [facility] [address] Protein [Mass/Vol] 6.7 g/dL Normal 6.1-7.9 [facility] Comment on above: Performed By: #### C BC, ETOH, CMP #### [facility] [address] Sodium [Moles/Vol] 136 mmol/L Normal 136-146 [facility] Comment on above: Performed By: #### C BC, ETOH, CMP #### [facility] [address] [place] [address] [place] Urea nitrogen [Mass/Vol] 6 mg/dL Low 9-23 [facility] Comment on above: Performed By: #### C BC, ETOH, CMP #### [facility] [address] [place] [address] [place] Creatinine and Glomerular fi ltration rate.predicted panel (S/P/Bld)Ordered By: Ed Amaral on 10-26-2021 Creatinine [Mass/Vol] 0.81 mg/dL 0.44-1.03 [facility] Dipstick and Microscopicon 0 10-26-2021 Appearance (U) Clear Normal Clear [facility] Comment on above: Order Comment: Name Collection Type:: Clean-Voided Midstream Performed By: #### S OFIANEG, URDS, ADDONUAPLUS, UHCG, COVID-19 FELI #### [facility] [address] Bilirubin,Urine Negative Normal Negative [facility] Comment on above: Order Comment: Name Collection Type:: Clean-Voided Midstream Performed By: #### S OFIANEG, URDS, ADDONUAPLUS, UHCG, COVID-19 FELI #### [facility] [address] [place] [address] Glucose Ql (U) Normal Normal Normal [facility] Comment on above: Order Comment: Name Collection Type:: Clean-Voided Midstream Performed By: #### S OFIANEG, URDS, ADDONUAPLUS, UHCG, COVID-19 FELI #### [facility] [address] [place] [address] Ketones Ql (U) Negative Normal Negative [facility] Comment on above: Order Comment: Name Collection Type:: Clean-Voided Midstream Performed By: #### S OFIANEG, URDS, ADDONUAPLUS, UHCG, COVID-19 FELI #### [facility] [address] [place] [address] Leukocyte esterase Test strip Ql (U) 1+ High Negative [facility] Comment on above: Order Comment: Name Collection Type:: Clean-Voided Midstream Performed By: #### S OFIANEG, URDS, ADDONUAPLUS, UHCG, COVID-19 FELI #### [facility] [address] [place] [address] Nitrite,Urine Negative Normal Negative [facility] Comment on above: Order Comment: Name Collection Type:: Clean-Voided Midstream Performed By: #### S OFIANEG, URDS, ADDONUAPLUS, UHCG, COVID-19 FELI #### [facility] [address] [place] [address] [place] Occult Blood,Urine Negative Normal Negative [facility] Comment on above: Order Comment: Name Collection Type:: Clean-Voided Midstream Performed By: #### S OFIANEG, URDS, ADDONUAPLUS, UHCG, COVID-19 FELI #### [facility] [address] [place] [address] [place] Protein,Urine Negative Normal Negative [facility] Comment on above: Order Comment: Name Collection Type:: Clean-Voided Midstream Performed By: #### S OFIANEG, URDS, ADDONUAPLUS, UHCG, COVID-19 FELI #### [address] RBC LM.HPF (Urine sed) [#/Area] 0 /[HPF] Normal 0-4 [facility] Comment on above: Order Comment: Name Collection Type:: Clean-Voided Midstream Performed By: #### S OFIANEG, URDS, ADDONUAPLUS, UHCG, COVID-19 FELI #### [facility] [address] [place] [address] Specificy Gary,Urine 1.005 Normal 1.001-1.030 [facility] Comment on above: Order Comment: Name Collection Type:: Clean-Voided Midstream Performed By: #### S OFIANEG, URDS, ADDONUAPLUS, UHCG, COVID-19 FELI #### [facility] [address] [place] [address] Squamous Epithelial Cell,Urine 1-2 Normal 0-2 [facility] Comment on above: Order Comment: Name Collection Type:: Clean-Voided Midstream Performed By: #### S OFIANEG, URDS, ADDONUAPLUS, UHCG, COVID-19 FELI #### [address] Urobilinogen,Urine Normal Normal Normal [facility] Comment on above: Order Comment: Name Collection Type:: Clean-Voided Midstream Performed By: #### S OFIANEG, URDS, ADDONUAPLUS, UHCG, COVID-19 FELI #### [facility] [address] [place] [address] WBC,Urine 1-2 Normal 0-4 [facility] Comment on above: Order Comment: Name Collection Type:: Clean-Voided Midstream Performed By: #### S OFIANEG, URDS, ADDONUAPLUS, UHCG, COVID-19 FELI #### [facility] [address] [place] [address] Drug Screen,Urineon 10-27-19 Amphetamine Screen,Urine Negative Normal Negative [facility] Comment on above: Performed By: #### S OFIANEG, URDS, ADDONUAPLUS, UHCG, COVID-19 FELI #### [address] Barbiturate Screen,Urine Negative Normal Negative [facility] Comment on above: Performed By: #### S OFIANEG, URDS, ADDONUAPLUS, UHCG, COVID-19 FELI #### [address] Benzodiazepines Screen,Urine Negative Normal Negative [facility] Comment on above: Performed By: #### S OFIANEG, URDS, ADDONUAPLUS, UHCG, COVID-19 FELI #### [facility] [address] [place] [address] Cannabinoid Screen,Urine Positive High Negative [facility] Comment on above: Result Comment: Thes e are unconfirmed results and should not be used for legal purposes. Drug Cut-Off Concentration: AMPH 1000 ng/mL SANCHEZ 200 ng/mL RENZO 200 ng/mL COCM 300 ng/mL OP 300 ng/mL PCP 25 ng/mL THC 20 ng/mL PERFORMED BY: [place] [address] PATHOLOGIST [employer] ENGINEERING TECHNICIAN JAMES MCNAIR M.D. Performed By: #### S OFIANEG, URDS, ADDONUAPLUS, UHCG, COVID-19 FELI #### [facility] [address] Cocaine Screen,Urine Negative Normal Negative [facility] Comment on above: Performed By: #### S OFIANEG, URDS, ADDONUAPLUS, UHCG, COVID-19 FELI #### [facility] [address] Opiate Screen,Urine Negative Normal Negative [facility] Comment on above: Performed By: #### S OFIANEG, URDS, ADDONUAPLUS, UHCG, COVID-19 FELI #### [facility] [address] Phencyclidine Screen,Urine Negative Normal Negative [facility] Comment on above: Performed By: #### S OFIANEG, URDS, ADDONUAPLUS, UHCG, COVID-19 FELI #### [facility] [address] Eosinophils Auto (Bld) [#/Vo l]Ordered By: Ed Amaral on 10-26-2021 Eosinophils (Bld) [#/Vol] 0.2 10*3/uL 0.0-0.45 [facility] Eosinophils/100 WBC Auto (Bl d)Ordered By: Ed Amaral on 10-26-2021 Eosinophils/100 WBC (Bld) 1.9 % . [facility] Erythrocyte distribution wid th Auto (RBC) [Ratio]Ordered By: Ed Amaral on 10-26-2021 Erythrocyte distribution width (RBC) [Ratio] 13.0 % 11.9-15.3 [facility] Estimated glomerular filtrat ion rate (GFR) non- AmericanOrdered By: Ed Amaral on 10-26-2021 GFR/1.73 sq M.predicted among non-blacks MDRD (S/P/Bld) [Vol rate/Area] > 60 mL/Min [facility] Ethyl Alcohol Profileon 09-29 Ethanol [Mass/Vol] mg/dL Normal [facility] Comment on above: Performed By: #### C BC, ETOH, CMP #### [facility] [address] Percent Ethanol Not performed Normal [facility] Comment on above: Result Comment: PERF ORMED BY: [place] [address] PATHOLOGIST FI[employer] PROTE[employer] ENGINEERING TECHNICIAN JAMES MCNAIR M.D. Performed By: #### C BC, ETOH, CMP #### [facility] [address] [place] [address] Globulin Calc (S) [Mass/Vol] Ordered By: Ed Amaral on 10-26-2021 Globulin (S) [Mass/Vol] 2.7 g/dL F [facility] HCG ( test) IA.rapi d Ql (U)Ordered By: Ed Amaral on 10-26-2021 HCG ( test) Ql (U) Negative [facility] HCG,Urineon 10-26-2021 Beta HCG ( test) Ql (U) Negative Normal [facility] Comment on above: Order Comment: Name Collection Type:: Clean-Voided Midstream Result Comment: PERF ORMED BY: [place] [address] PATHOLOGIST [employer] PR[employer] ENGINEERING TECHNICIAN JAMES MCNAIR M.D. Performed By: #### S OFDEAN, RAYMONDDS, ADDONUAPLUS, UHCG, COVID-19 FELI #### [address] Hematocrit Auto (Bld) [Volum e fraction]Ordered By: Ed Amaral on 10-26-2021 Hematocrit (Bld) [Volume fraction] 39.1 % 34.0-46.4 [facility] Ketones Auto test strip (U) [Mass/Vol]Ordered By: Ed Amaral on 10-26-2021 Ketones (U) [Mass/Vol] Negative Negative [facility] - Drug toxicology Ordered By: Ed Amaral on 10-26-2021 Opiates Ql (U) Negative Negative [facility] Laboratory - Hematology and Cell countsOrdered By: Ed Amaral on 10-26-2021 Nucleated RBC/100 WBC (Bld) [Ratio] 0.0 % 0-0.5 [facility] Lymphocytes Auto (Bld) [#/Vo l]Ordered By: Ed Amaral on 10-26-2021 Lymphocytes (Bld) [#/Vol] 2.2 10*3/uL 1.00-4.8 [facility] Lymphocytes/100 WBC Auto (Bl d)Ordered By: Ed Amaral on 10-26-2021 Lymphocytes/100 WBC (Bld) 21.5 % . [facility] MCH Auto (RBC) [Entitic mass ]Ordered By: Ed Amaral on 10-26-2021 MCH (RBC) [Entitic mass] 32.9 pg 24.7-34.3 [facility] MCHC Auto (RBC) [Mass/Vol]Or dered By: Ed Amaral on 10-26-2021 MCHC (RBC) [Mass/Vol] 34.1 g/dL 32.0-35.0 [facility] MCV Auto (RBC) [Entitic vol] Ordered By: Ed Amaral on 10-26-2021 MCV (RBC) [Entitic vol] 96.5 fL 80-100 F [facility] Monocytes Auto (Bld) [#/Vol] Ordered By: Ed Amaral on 10-26-2021 Monocytes (Bld) [#/Vol] 0.6 10*3/uL 0.0-0.8 [facility] Monocytes/100 WBC Auto (Bld) Ordered By: Ed Amaral on 10-26-2021 Monocytes/100 WBC (Bld) 6.2 % . F [facility] Neutrophils Auto (Bld) [#/Vo l]Ordered By: Ed Amaral on 10-26-2021 Neutrophils (Bld) [#/Vol] 7.1 10*3/uL 1.8-7.7 [facility] Neutrophils/100 WBC Auto (Bl d)Ordered By: Ed Amaral on 10-26-2021 Neutrophils/100 WBC (Bld) 69.6 % . [facility] Nitrite Test strip Ql (U)Ord ered By: Ed Amaral on 10-26-2021 Nitrite Ql (U) Negative Negative [facility] No Panel InformationOrdered By: Ed Amaral on 10-26-2021 Estimated GFR () > 60 mL/Min [facility] Comment on above: GFR estimated refere nce range: According to KDOQI guidelines, <60 ml/min/1.73m2 is sufficient to diagnose a patient with chronic kidney disease. Pharmacy Creatinine Clearance (Chem 97.62 [facility] SARS Antigen (LFIA) [facility] Phencyclidine Screen Ql (U)O rdered By: Ed Amaral on 10-26-2021 Phencyclidine Ql (U) Negative Negative [facility] Platelet mean volume Auto (B ld) [Entitic vol]Ordered By: Ed Amaral on 10-26-2021 Platelet mean volume (Bld) [Entitic vol] 9.0 fL 6.3-10.7 [facility] Platelets Auto (Bld) [#/Vol] Ordered By: Ed Amaral on 10-26-2021 Platelets (Bld) [#/Vol] 173 10*3/uL 150-450 [facility] Protein Auto test strip (U) [Mass/Vol]Ordered By: Ed Amaral on 10-26-2021 Protein (U) [Mass/Vol] Negative Negative [facility] Protein [Mass/volume] in Ser um or PlasmaOrdered By: Ed Amaral on 10-26-2021 Protein [Mass/Vol] 6.7 g/dL 6.1-7.9 [facility] RBC Auto (Bld) [#/Vol]Ordere d By: Ed Amaral on 10-26-2021 RBC (Bld) [#/Vol] 4.05 10*6/uL 3.60-5.00 [facility] Serum or plasma alanine daniel otransferase measurement without P-5'-P (enzymatic activiOrdered By: Ed Amaral on 10-26-2021 ALT No additional P-5'-P [Catalytic activity/Vol] 20 U/L 10-60 [facility] Serum or plasma albumin/glob ulin mass ratioOrdered By: Ed Amaral on 10-26-2021 Albumin/Globulin [Mass ratio] 1.5 {ratio} [facility] Serum or plasma alkaline jame sphatase measurement (enzymatic activity/volume)Ordered By: Ed Amaral on 10-26-2021 ALP [Catalytic activity/Vol] 55 U/L 32-92 [facility] Serum or plasma anion gap de terminationOrdered By: Ed Amaral on 10-26-2021 Anion gap [Moles/Vol] 10.1 mmol/L 6.0-15.0 [facility] Serum or plasma aspartate am inotransferase measurement (enzymatic activity/volume)Ordered By: Ed Amaral on 10-26-2021 AST [Catalytic activity/Vol] 17 U/L 10-42 [facility] Serum or plasma calcium stephane urement (mass/volume)Ordered By: Ed Amaral on 10-26-2021 Calcium [Mass/Vol] 9.5 mg/dL 8.2-10.2 [facility] Serum or plasma chloride rios surement (moles/volume)Ordered By: Ed Amaral on 10-26-2021 Chloride [Moles/Vol] 104 mmol/L 95-114 [facility] Serum or plasma ethanol stephane urement (mass/volume)Ordered By: Ed Amaral on 10-26-2021 Ethanol [Mass/Vol] mg/dL [facility] Ethanol [Mass/Vol] TNP [facility] Comment on above: Test not performed Serum or plasma glucose stephane urement (mass/volume)Ordered By: Ed Amaral on 10-26-2021 Glucose [Mass/Vol] 98 mg/dL 70-100 [facility] Comment on above: ADA recommended refe rence range Random Glucose Reference Range is dependent on time and content of last meal. Glucose of more than 200 mg/dL in a nonstressed, ambulatory subject supports the diagnosis of Diabetes Mellitus. Serum or plasma potassium me asurement (moles/volume)Ordered By: Ed Amaral on 10-26-2021 Potassium [Moles/Vol] 3.4 mmol/L 3.5-5.1 [facility] Serum or plasma sodium measu rement (moles/volume)Ordered By: Ed Amaral on 10-26-2021 Sodium [Moles/Vol] 136 mmol/L 136-146 [facility] Serum or plasma total biliru bin measurement (mass/volume)Ordered By: Ed Amaral on 10-26-2021 Bilirubin [Mass/Vol] 0.4 mg/dL 0.3-1.2 [facility] Serum or plasma total carbon dioxide measurement (moles/volume)Ordered By: Ed Amaral on 10-26-2021 CO2 [Moles/Vol] 25.3 mmol/L 22.0-30.0 [facility] Serum or plasma urea nitroge n measurement (mass/volume)Ordered By: Ed Amaral on 10-26-2021 Urea nitrogen [Mass/Vol] 6 mg/dL 9-23 [facility] Feli Ag Negativeon 10-27-19 Feli Ag Negative Negative Normal Negative [facility] Comment on above: Result Comment: This is a duplicate Feli SARS Antigen (ERNESTO) result to be used for statistical tracking purpose only. PERFORMED BY: [place] [address] PATHOLOGIST FIRE PROTECTION ENGINEERING TECHNICIAN JAMES MCNAIR M.D. Performed By: #### S OFIANEG, URDS, ADDONUAPLUS, UHCG, COVID-19 FELI #### [address] Specific gravity Auto test s trip (U) [Rel density]Ordered By: Ed Amaral on 10-26-2021 Specific gravity (U) [Rel density] 1.005 1.001-1.030 [facility] Squamous epithelial cells de tection in urine sediment by light microscopyOrdered By: Ed Amaral on 10-26-2021 Epithelial cells.squamous LM Ql (Urine sed) 1-2 [HPF] 0-2 [facility] Urine bacteria detection by automated methodOrdered By: Ed Amaral on 10-26-2021 Bacteria Auto Ql (U) N/A [facility] Urine clarity by refractomet ry automatedOrdered By: Ed Amaral on 10-26-2021 Clarity Refractometry automated (U) Clear Clear [facility] Urine cocaine detectionOrder ed By: Ed Amaral on 10-26-2021 Cocaine Ql (U) Negative Negative [facility] Urine glucose measurement by automated test strip (mass/volume)Ordered By: Ed Amaral on 10-26-2021 Glucose Auto test strip (U) [Mass/Vol] Normal mg/dL Normal [facility] Urine hemoglobin detection b y automated test stripOrdered By: Ed Amaral on 10-26-2021 Hemoglobin Auto test strip Ql (U) Negative Negative [facility] Urine leukocyte esterase det ection by automated test stripOrdered By: Ed Amaral on 10-26-2021 Leukocyte esterase Auto test strip Ql (U) 1+ Negative [facility] Urine pH measurement by auto mated test stripOrdered By: Ed Amaral on 10-26-2021 pH (U) 7.0 [pH] Normal 5.0-9.0 [facility] Comment on above: Order Comment: Name Collection Type:: Clean-Voided Midstream Performed By: #### S OFIANEG, URDS, ADDONUAPLUS, UHCG, COVID-19 FELI #### [facility] [address] Urobilinogen Auto test strip (U) [Mass/Vol]Ordered By: Ed Amaral on 10-26-2021 Urobilinogen (U) [Mass/Vol] Normal mg/dL Normal [facility] Viral Non-Resp Culton 2021 Viral Non-Resp Cult Specimen Description .WOUND UPPER .LIP Culture POSITIVE: HSV-1 DNA detected by nucleic acid amp. NEGATIVE: HSV-2 DNA not detected by nucleic acid amplification. Due to the specimen source, HSV 1,2 testing was performed by a molecular method. Report Status FINAL 05/30/[address] [facility] Comment on above: Performed By: #### V TAF #### [place] [id number] [employer] Supervisor: Claude Gonzalez MD No Panel InformationOrdered By: Kia Sharma on 05-28-2021 Reported Physicians See Note [facility] Work Phone: Comment on above: Note: Reported Physi cians:Ordering: Jorden Sharmading: Andres SharmaaRealejandroring: Kia Sharma Viral Non-Resp Cult See Note [facility] Work Phone: Comment on above: Note: Specimen Descr iption .WOUND UPPER .LIPCulture POSITIVE: HSV-1 DNA detected by nucleic acid amp.NEGATIVE: HSV-2 DNA not detected by nucleic acid amplification.Due to the specimen source, HSV 1,2 testing was performed by a molecular method.Report Status FINAL 2Responsible Observer: SUMMER BOYD ([id number]) Follicle Stimulating Hormone on 03-10-2021 FSH 4.5 U/L 1.7 - 21.5 U/L [facility] Comment on above: Reference Range: Male: 1.5-12.4 Ovulating Female: Follicular Phase 3.5-12.5 Ovulation Phase 4.7-21.5 Luteal Phase 1.7-7.7 Postmenopausal Female: 25.8-134.8 Luteinizing Hormoneon 2021 LH 3.0 U/L 1.0 - 95.6 U/L [facility] Comment on above: Reference Range: Male: 1.7-8.6 Ovulating Female: Follicular Phase 2.4-12.6 Ovulation Phase 14.0-95.6 Luteal Phase 1.0-11.4 Postmenopausal Female: 7.7-58.5 No Panel Informationon 03-10 [facility] Prolactinon 03-10-2021 Prolactin 5.96 ug/L 4.79 - 23.30 ug/L [facility] Comment on above: The presence of macr oprolactin may cause interference in female patients with various endocrinological diseases or during . [employer] TSH with Reflexon 03-10-2021 TSH Qn 0.72 m[IU]/L [facility] [employer] hCG, Quantitative, on 03-10-2021 hCG Quant <1 <5 IU/L [facility] Comment on above: Non-preg premeno <=5 Postmeno <=8 Male <=3 If HCG results do not concur with clinical observations, additional testing to confirm results is recommended. Elevated results not associated with may be found in patients with other diseases such as tumors of the germ cells (testis, ovaries, etc.), bladder, pancreas, stomach, lungs, and liver. [employer] , UrineOrdered By: Anthony Galloway on 10-14-2020 Beta HCG ( test) Ql (U) Negative NEGATIVE [employer] Work Phone: Comment on above: Specimens with hCG l evels near the threshold of the test (25 mIU/mL) may give a negative or indeterminate result. In such cases, another test should be performed with a new specimen in 48-72 hours. If early is suspected clinically in this setting, correlation with quantitative serum b-hCG level is suggested. [employer] has confirmed the use of plasma for this test. This has not been cleared or approved by the U.S. Food and Drug Administration. The FDA has determined that such clearance is not necessary. [employer] Phone: COVID-19Ordered By: Sabas siddiqi on 10-10-2020 SARS-CoV-2 (COVID-19) RNA SANDRA+probe Ql (Unsp spec) [employer] Phone: SARS-CoV-2 (COVID-19) RNA SANDRA+probe Ql (Unsp spec) Not detected Not Detected [employer] Phone: Comment on above: The specimen is NEGATIVE for SARS-CoV-2, the novel coronavirus associated with COVID-19. A negative result does not rule out COVID-19. [employer] SARS-CoV-2 for use on the [id number] [employer] is a real-time RT-PCR test intended [...] this assay. Fact sheet for Healthcare Providers: https://www.fda.gov/media/333609/download Fact sheet for Patients: https://www.fda.gov/media/312430/download METHODOLOGY: RT-PCR Source .NASOPHARYNGEAL SWAB [employer] Phone: [employer] Phone: Microscopic Urinalysison Amorphous, UA NOT REPORTED None [place], [place] Bacteria, UA 1+ Abnormal None [place] Casts UA NOT REPORTED /LPF [place] Crystals, UA NOT REPORTED None /HPF [place] Epithelial Cells UA 5 TO 10 [place] Interpretation and review of laboratory results Abnormal [place] Mucus, UA NOT REPORTED None [place] Other Observations UA NOT REPORTED NOT REQ. M [place] RBC (U) [#/Vol] 0 TO 2 [place] Renal Epithelial, UA NOT REPORTED 0 /HPF [place], [place] Trichomonas, UA NOT REPORTED None [place] WBC, UA 0 TO 2 [place] Yeast, UA NOT REPORTED None [place] - [place] , Urineon 0 Beta HCG ( test) Ql (U) Negative NEGATIVE [place] Comment on above: Specimens with hCG l evels near the threshold of the test (25 mIU/mL) may give a negative or indeterminate result. In such cases, another test should be performed with a new specimen in 48-72 hours. If early is suspected clinically in this setting, correlation with quantitative serum b-hCG level is suggested. [facility] has confirmed the use of plasma for this test. This has not been cleared or approved by the U.S. Food and Drug Administration. The FDA has determined that such clearance is not necessary. Urinalysis Reflex to Culture on 02-25-2020 Bilirubin Urine Negative NEGATIVE [place] Color, UA YELLOW YELLOW [place] Glucose, Ur Negative NEGATIVE [place] Ketones Ql (U) Negative NEGATIVE [place] Leukocyte esterase Test strip Ql (U) Negative NEGATIVE [place] Nitrite, Urine Negative NEGATIVE [place] pH, UA 6.5 [place] Protein (U) [Mass/Vol] Negative NEGATIVE [place] Specific Gary, UA 1.010 [place] Turbidity UA CLEAR CLEAR [place] Urinalysis Comments NOT REPORTED [place] Urine Hgb Negative NEGATIVE [place] Urobilinogen, Urine Normal Normal [place] Wet Prep, Genitalon 02-25-20 Direct Exam NO TRICHOMONAS SEEN [place] Direct Exam NO YEAST OBSERVED [place] Direct Exam CLUE CELLS SEEN Abnormal [place] Interpretation and review of laboratory results Abnormal [place] Special Requests NOT REPORTED [place] Specimen Description .VAGINA [place] Laboratory Studieson 016 Albumin [Mass/Vol] 3.4 g/dL 3.2-5.5 [facility] Albumin/Globulin [Mass ratio] 1.5 {ratio} [facility] ALP [Catalytic activity/Vol] 50 U/L 32-92 [facility] ALT [Catalytic activity/Vol] 17 U/L 10-60 [facility] AST [Catalytic activity/Vol] 16 U/L 10-42 [facility] Basophils (Bld) [#/Vol] 0.0 10*3/uL 0.0-0.2 [facility] Basophils/100 WBC (Bld) 0.3 % [facility] Bilirubin Ql (U) 0.2 mg/dL Low 0.3-1.2 [facility] Bilirubin.direct [Mass/Vol] mg/dL 0.0-0.4 [facility] Bilirubin.indirect (Body fld) [Mass/Vol] TNP [facility] Comment on above: Test not performed WHEN BILD IS <0.1,IBIL IS NOT ABLE TO BE CALCULATED. Calcium [Mass/Vol] 9.3 mg/dL 8.2-10.2 [facility] Chloride [Moles/Vol] 106 mmol/L 95-114 [facility] Cholesterol [Mass/Vol] 9 mg/dL [facility] Cholesterol [Mass/Vol] 101 mg/dL Low 140-200 [facility] Comment on above: CHOL less than 200 m g/dL Low risk CHOL 201-239 mg/dL Borderline risk CHOL 240 mg/dL and greater High risk Cholesterol in HDL [Mass/Vol] 38 mg/dL 35-85 [facility] Comment on above: HDL CHOL ATP-III CLA SSIFICATION Cardiovascular Risk HDL > or equal to 60 mg/dL Low HDL < 40 mg/dL High Cholesterol.total/Fanny sterol in HDL [Mass ratio] 2.7 {ratio} [facility] CO2 [Moles/Vol] 25.8 mmol/L 22.0-30.0 [facility] Creatinine [Mass/Vol] 0.62 mg/dL 0.44-1.03 [facility] Eosinophils (Bld) [#/Vol] 0.10 10*3/uL 0.0-0.45 [facility] Eosinophils/100 WBC (Bld) 1.5 % [facility] Erythrocyte distribution width (RBC) [Ratio] 13.2 % 11.9-15.3 [facility] Estimated GFR (Non- > 60 [facility] GFR/1.73 sq M.predicted MDRD (S/P/Bld) [Vol rate/Area] mL/min/{1.73_m2} [facility] Comment on above: GFR estimated refere nce range: According to KDOQI guidelines, <60 ml/min/1.73m2 is sufficient to diagnose a patient with chronic kidney disease. Globulin (S) [Mass/Vol] 2.2 g/dL [facility] Glucose [Mass/Vol] 82 mg/dL 70-100 [facility] Comment on above: ADA RECOMMENDED REFE RENCE RANGE Hematocrit (Bld) [Volume fraction] 32.1 % Low 34.0-46.4 [facility] Hemoglobin (Bld) [Mass/Vol] 11.0 g/dL Low 11.8-15.4 [facility] LDL Cholesterol, Calculated 54 mg/dL 0-100 [facility] Comment on above: LDL ATP III CLASSIFI CATION LDL less than 100 mg/dL Optimal LDL 100-129 mg/dL Near or above optimal LDL 130-159 mg/dL Borderline high LDL 160-189 mg/dL High LDL greater than 189 mg/dL Very high Lymphocytes (Bld) [#/Vol] 2.1 10*3/uL 1.00-4.8 [facility] Lymphocytes/100 WBC (Bld) 25.3 % [facility] MCH (RBC) [Entitic mass] 31.9 pg 24.7-34.3 [facility] MCHC (RBC) [Mass/Vol] 34.4 g/dL 32.0-35.0 [facility] MCV (RBC) [Entitic vol] 92.6 fL 80-100 [facility] Monocytes (Bld) [#/Vol] 0.7 10*3/uL 0.0-0.8 [facility] Monocytes/100 WBC (Bld) 8.3 % [facility] Neutrophils (Bld) [#/Vol] 5.3 10*3/uL 1.8-7.7 [facility] Neutrophils/100 WBC (Bld) 64.6 % [facility] Platelet mean volume (Bld) [Entitic vol] 9.5 fL 6.3-10.7 [facility] Platelets (Bld) [#/Vol] 135 10*3/uL Low 150-450 [facility] Potassium [Moles/Vol] 4.3 mmol/L 3.5-5.1 [facility] Protein [Mass/Vol] 5.6 g/dL Low 6.1-7.9 [facility] RBC (Bld) [#/Vol] 3.46 10*6/uL Low 3.60-5.00 [facility] Sodium [Moles/Vol] 138 mmol/L 136-146 [facility] Triglyceride [Mass/Vol] 47 mg/dL 35-149 [facility] Comment on above: TRIG ATP III CLASSIF ICATION TRIG less than 150 mg/dL Normal TRIG 150-199 mg/dL Borderline high TRIG 200-500 mg/dL High TRIG greater than 500 mg/dL Very high Standard traceable to the Center for Disease Conrtrol and Prevention (CDC) test method. Troponin I.cardiac [Mass/Vol] 0.02 ng/mL 0-0.02 [facility] Comment on above: [place]IS [place] Cut off value > or equal to 0.03 ng/mL in conjunction with clinical conditions of myocardial infarction. ([email or web address].org/guidelines) TSH Qn 1.89 uIU/mL 0.340-5.600 [facility] Urea nitrogen [Mass/Vol] 7 mg/dL Low 9-23 [facility] WBC (Bld) [#/Vol] 8.2 10*3/uL 3.8-11.6 [facility] Amorphous sediment LM Ql (Urine sed) 2+ [facility] Comment on above: PHOSPHATES Amphetamines Ql (U) Negative [facility] Appearance (U) Hazy Abnormal [facility] Bacteria LM.HPF (Urine sed) [#/Area] Rare [facility] Benzodiazepines Ql (U) [facility] Bilirubin Ql (U) Negative [facility] Cocaine Ql (U) Negative [facility] Color (U) Light-yellow [facility] Epithelial cells.squamous LM.HPF (Urine sed) [#/Area] 3-4 /hpf [facility] Glucose (U) [Mass/Vol] Normal mg/dL [facility] Ketones Ql (U) Negative [facility] Leukocyte esterase Test strip Ql (U) Negative [facility] Nitrite Ql (U) Negative [facility] Opiates Ql (U) Negative [facility] pH (U) 7.0 [pH] 5.0-9.0 [facility] Phencyclidine Ql (U) Negative [facility] Protein Ql (U) Negative [facility] RBC (U) [#/Vol] Rare /hpf [facility] Specific gravity (U) [Rel density] 1.010 1.001-1.030 [facility] Urine Barbiturates Screen Positive [facility] Urine Collection Type Type [facility] Comment on above: VOIDED Urine Drug Screen Comment See comment [facility] Comment on above: THESE ARE UNCONFIRME D RESULTS AND SHOULD NOT BE USED FOR LEGAL PURPOSES. DRUG CUT-OFF CONCENTRATION: AMPH 1000 ng/mL SANCHEZ 200 ng/mL RENZO 200 ng/mL COCM 300 ng/mL OP 300 ng/mL PCP 25 ng/mL THC 20 ng/mL Urine Marijuana (THC) Screen Positive [facility] Urine Occult Blood Negative [facility] Urobilinogen Qn (U) Normal mg/dL [facility] WBC (U) [#/Vol] Rare /hpf [facility] Laboratory Studieson 016 CK [Catalytic activity/Vol] 51 U/L 22-269 [facility] CK.MB [Mass/Vol] 0.8 ng/mL 0.6-6.3 [facility] Creatine Kinase MB Relative Index 1.5 0.00-2.50 [facility] Vital Signs Date Time Vital Sign Value Performing Clinician Facility 09-12-2023 17:45-0400 Body height 170.2 cm Brenda Cardosotig SHIPS EQUIPMENT ENGINEER - CNM Work Phone: [email or web address] 09-12-2023 17:45-0400 Body mass index (BMI) [Ratio] 28.82 kg/m2 Brenda Hailee SHIPS EQUIPMENT ENGINEER - CNM Work Phone: [email or web address] 09-12-2023 17:45-0400 Body temperature 98.29 [degF] Brenda Cardosotig SHIPS EQUIPMENT ENGINEER - CNM Work Phone: [email or web address] 09-12-2023 17:45-0400 Body weight 83.46 kg Brenda Hailee SHIPS EQUIPMENT ENGINEER - CNM Work Phone: [email or web address] 09-12-2023 17:45-0400 Diastolic blood pressure 60 mm[Hg] Brenda Haiele SHIPS EQUIPMENT ENGINEER - CNM Work Phone: [email or web address] 09-12-2023 17:45-0400 Heart rate 75 /min Brenda Hailee SHIPS EQUIPMENT ENGINEER - CNM Work Phone: [email or web address] 09-12-2023 17:45-0400 Respiratory rate 16 /min Brenda Hailee SHIPS EQUIPMENT ENGINEER - CNM Work Phone: [email or web address] 09-12-2023 17:45-0400 SaO2% (BldA) [Mass fraction] 98 % Brenda Hailee SHIPS EQUIPMENT ENGINEER - CNM Work Phone: [email or web address] 09-12-2023 17:45-0400 Systolic blood pressure 110 mm[Hg] Brenda Stephen SHIPS EQUIPMENT ENGINEER - CNM Work Phone: [email or web address] 08-24-2023 20:05-0400 Body temperature 98.1 [degF] Jagdeep D'Francoiseeau DO Work Phone: [email or web address] 08-24-2023 20:05-0400 Diastolic blood pressure 63 mm[Hg] Jagdeep D'Francoiseeau DO Work Phone: [email or web address] 08-24-2023 20:05-0400 Heart rate 95 /min Jagdeep D'Francoiseeau DO Work Phone: [email or web address] 08-24-2023 20:05-0400 Respiratory rate 16 /min Jagdeepmaral Callahaneau DO Work Phone: [email or web address] 08-24-2023 20:05-0400 SaO2% (BldA) [Mass fraction] 98 % Jagdeepmaral Callahaneau DO Work Phone: [email or web address] 08-24-2023 20:05-0400 Systolic blood pressure 131 mm[Hg] Jagdeep D'Francoiseeau DO Work Phone: [email or web address] 08-03-2022 06:56-0400 Body temperature 99 [degF] Samara Paulino MD Work Phone: [email or web address] 08-03-2022 06:56-0400 Diastolic blood pressure 75 mm[Hg] Samara Paulino MD Work Phone: [email or web address] 08-03-2022 06:56-0400 Heart rate 129 /min Samara Paulino MD Work Phone: [email or web address] 08-03-2022 06:56-0400 Respiratory rate 22 /min Samara Paulino MD Work Phone: [email or web address] 08-03-2022 06:56-0400 SaO2% (BldA) [Mass fraction] 100 % Samara Paulino MD Work Phone: [email or web address] 08-03-2022 06:56-0400 Systolic blood pressure 131 mm[Hg] Samara Paulino MD Work Phone: [facility] [employer] 07-27-2022 18:47-0400 Body height 175.26 cm Mariposa Duncan CNP Work Phone: [facility] Work Phone: 07-27-2022 18:47-0400 Body mass index (BMI) [Ratio] 22 kg/m2 Mariposa Duncan CNP Work Phone: [facility] Work Phone: 07-27-2022 18:47-0400 Body surface area Derived from formula 1.8 m2 Mariposa Duncan CNP Work Phone: [facility] Work Phone: 07-27-2022 18:47-0400 Body temperature 96.3 [degF] Mariposa Duncan CNP Work Phone: [facility] Work Phone: 07-27-2022 18:47-0400 Body weight 67.72 kg Mariposa Duncan CNP Work Phone: [facility] Work Phone: 07-27-2022 18:47-0400 Diastolic blood pressure 63 mm[Hg] Mariposapower Duncan CNP Work Phone: [facility] Work Phone: 07-27-2022 18:47-0400 Heart rate 68 /min Mariposa Duncan CNP Work Phone: [facility] Work Phone: 07-27-2022 18:47-0400 SaO2% (BldA) [Mass fraction] 97 % Mariposa Duncan CNP Work Phone: [facility] Work Phone: 07-27-2022 18:47-0400 Systolic blood pressure 117 mm[Hg] Mariposapower Duncan CNP Work Phone: [facility] Work Phone: 04-24-2022 13:05-0500 Diastolic blood pressure 60 mm[Hg] Kia Sharma APRN - LONG CHAIN DYE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 Work Phone: [facility] 04-24-2022 13:05-0500 Systolic blood pressure 122 mm[Hg] Kia Sharma APRN - LONG CHAIN DYE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 Work Phone: [facility] 04-24-2022 10:44-0500 Body mass index (BMI) [Ratio] 24.78 kg/m2 Kia Sharma APRN - LONG CHAIN DYE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 Work Phone: [facility] 04-24-2022 10:44-0500 Body temperature 98.4 [degF] iKa Sharma APRN - LONG CHAIN DYE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 Work Phone: [facility] 04-24-2022 10:44-0500 Body weight 73.94 kg Kia Sharma APRN - LONG CHAIN DYE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 Work Phone: [facility] 04-24-2022 10:44-0500 Heart rate 79 /min Kia Sharma APRN - LONG CHAIN DYE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 Work Phone: [facility] 04-24-2022 10:44-0500 Respiratory rate 20 /min Kia Sharma APRN - LONG CHAIN DYE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 Work Phone: [facility] 04-24-2022 10:44-0500 SaO2% (BldA) [Mass fraction] 100 % Kia Sharma APRN - LONG CHAIN DYE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 Work Phone: [email or web address] 03-04-2022 14:15-0500 Diastolic blood pressure 78 mm[Hg] Geoff Miller MD Work Phone: [facility] 03-04-2022 14:15-0500 Heart rate 74 /min Geoff Miller MD Work Phone: [facility] 03-04-2022 14:15-0500 Respiratory rate 16 /min Geoff Miller MD Work Phone: [facility] 03-04-2022 14:15-0500 SaO2% (BldA) [Mass fraction] 100 % Geoff Miller MD Work Phone: [facility] 03-04-2022 14:15-0500 Systolic blood pressure 131 mm[Hg] Geoff Miller MD Work Phone: [facility] 03-04-2022 13:30-0500 Body temperature 97.2 [degF] Geoff Miller MD Work Phone: [facility] 03-04-2022 11:15-0500 Body height 172.7 cm Geoff Miller MD Work Phone: [facility] 03-04-2022 11:15-0500 Body mass index (BMI) [Ratio] 24.94 kg/m2 Geoff Miller MD Work Phone: [facility] 03-04-2022 11:15-0500 Body weight 74.39 kg Geoff Miller MD Work Phone: [facility] 03-01-2022 08:00-0500 Body mass index (BMI) [Ratio] 24.94 kg/m2 Nicholas Denton MD Work Phone: [email or web address] 03-01-2022 08:00-0500 Body temperature 98.2 [degF] Nicholas Denton MD Work Phone: [facility] 03-01-2022 08:00-0500 Body weight 74.39 kg Nicholas Denton MD Work Phone: [email or web address] 03-01-2022 08:00-0500 Diastolic blood pressure 61 mm[Hg] Nicholas Denton MD Work Phone: [facility] 03-01-2022 08:00-0500 Heart rate 89 /min Nicholas Denton MD Work Phone: [facility] 03-01-2022 08:00-0500 Respiratory rate 20 /min Nicholas Denton MD Work Phone: [facility] 03-01-2022 08:00-0500 SaO2% (BldA) [Mass fraction] 99 % Nicholas Denton MD Work Phone: [facility] 03-01-2022 08:00-0500 Systolic blood pressure 138 mm[Hg] Nicholas Denton MD Work Phone: [facility] 10-29-2021 07:30-0400 Body temperature 96.6 [degF] PHYSICIAN NO [facility] 10-29-2021 07:30-0400 Diastolic blood pressure 70 mm[Hg] PHYSICIAN NO [facility] 10-29-2021 07:30-0400 Heart rate 84 /min PHYSICIAN [facility] 10-29-2021 07:30-0400 Respiratory rate 18 /min PHYSICIAN [facility] 10-29-2021 07:30-0400 SaO2% (BldA) [Mass fraction] 97 % PHYSICIAN NO [facility] 10-29-2021 07:30-0400 Systolic blood pressure 110 mm[Hg] PHYSICIAN NO [facility] 10-27-2021 14:15-0400 Body height 172.72 cm PHYSICIAN NO [facility] 10-26-2021 20:08-0400 Body weight 58.96 kg PHYSICIAN NO [facility] 08-17-2021 16:45-0400 Body height 175.26 cm Kia Sharma LONG CHAIN DYE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 Work Phone: [facility] Work Phone: 08-17-2021 16:45-0400 Body mass index (BMI) [Ratio] 20 kg/m2 Kia Sharma LONG CHAIN DYE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 Work Phone: [facility] Work Phone: 08-17-2021 16:45-0400 Body surface area Derived from formula 1.75 m2 Kia Sharma CNP Work Phone: [facility] Work Phone: 08-17-2021 16:45-0400 Body surface area Derived from formula 1.7 m2 Mariposa Duncan LONG CHAIN DYE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 Work Phone: [facility] Work Phone: 08-17-2021 16:45-0400 Body temperature 96.7 [degF] Kia Edith BANSAL Work Phone: [facility] Work Phone: 08-17-2021 16:45-0400 Body weight 61.33 kg Kia Edith BANSAL Work Phone: [facility] Work Phone: 08-17-2021 16:45-0400 Diastolic blood pressure 64 mm[Hg] Kia Sharma LONG CHAIN DYE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 Work Phone: [facility] Work Phone: 08-17-2021 16:45-0400 Heart rate 67 /min Kia Sharma LONG CHAIN DYE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 Work Phone: [facility] Work Phone: 08-17-2021 16:45-0400 SaO2% (BldA) [Mass fraction] 99 % Kia Sharma CNP Work Phone: [facility] Work Phone: 08-17-2021 16:45-0400 Systolic blood pressure 110 mm[Hg] Kia Sharma LONG CHAIN DYE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 Work Phone: [facility] Work Phone: 07-15-2021 15:57-0400 Body height 175.26 cm Kia Sharma CNP Work Phone: [facility] Work Phone: 07-15-2021 15:57-0400 Body mass index (BMI) [Ratio] 19.8 kg/m2 Kia Sharma CNP Work Phone: [facility] Work Phone: 07-15-2021 15:57-0400 Body surface area Derived from formula 1.74 m2 Kia Sharma CNP Work Phone: [facility] Work Phone: 07-15-2021 15:57-0400 Body temperature 98.1 [degF] Kia Sharma CNP Work Phone: [facility] Work Phone: 07-15-2021 15:57-0400 Body weight 60.78 kg Kia Sharma CNP Work Phone: [facility] Work Phone: 07-15-2021 15:57-0400 Diastolic blood pressure 62 mm[Hg] Kia Sharma CNP Work Phone: [facility] Work Phone: 07-15-2021 15:57-0400 Heart rate 68 /min Kia Sharma CNP Work Phone: [facility] Work Phone: 07-15-2021 15:57-0400 Heart Rate Rhythm 1 1 Kia Sharma CNP Work Phone: [facility] Work Phone: 07-15-2021 15:57-0400 SaO2% (BldA) [Mass fraction] 98 % Kia Sharma CNP Work Phone: [facility] Work Phone: 07-15-2021 15:57-0400 Systolic blood pressure 108 mm[Hg] Kia Sharma LONG CHAIN DYE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 Work Phone: [facility] Work Phone: 07-01-2021 17:32-0400 Body height 175.26 cm Kia Sharma CNP Work Phone: [facility] Work Phone: 07-01-2021 17:32-0400 Body mass index (BMI) [Ratio] 20.3 kg/m2 Kia Sharma CNP Work Phone: [facility] Work Phone: 07-01-2021 17:32-0400 Body surface area Derived from formula 1.76 m2 Kia Sharma CNP Work Phone: [facility] Work Phone: 07-01-2021 17:32-0400 Body temperature 97.5 [degF] Kia Sharma CNP Work Phone: [facility] Work Phone: 07-01-2021 17:32-0400 Body weight 62.32 kg Kia Sharma CNP Work Phone: [facility] Work Phone: 07-01-2021 17:32-0400 Diastolic blood pressure 58 mm[Hg] Kia Sharma CNP Work Phone: [facility] Work Phone: 07-01-2021 17:32-0400 Heart rate 775 /min Kia Sharma CNP Work Phone: [facility] Work Phone: 07-01-2021 17:32-0400 Heart Rate Rhythm 1 1 Kia Sharma CNP Work Phone: [facility] Work Phone: 07-01-2021 17:32-0400 SaO2% (BldA) [Mass fraction] 97 % Kia Sharma CNP Work Phone: [facility] Work Phone: 07-01-2021 17:32-0400 Systolic blood pressure 116 mm[Hg] Kia Sharma CNP Work Phone: [facility] Work Phone: 05-28-2021 18:41-0400 Body height 175.26 cm Kia Sharma CNP Work Phone: [facility] Work Phone: 05-28-2021 18:41-0400 Body mass index (BMI) [Ratio] 19.6 kg/m2 Kia Sharma CNP Work Phone: [facility] Work Phone: 05-28-2021 18:41-0400 Body surface area Derived from formula 1.74 m2 Kia Sharma CNP Work Phone: [facility] Work Phone: 05-28-2021 18:41-0400 Body temperature 97.7 [degF] Kia Sharma CNP Work Phone: [facility] Work Phone: 05-28-2021 18:41-0400 Body weight 60.33 kg Kia Sharma CNP Work Phone: [facility] Work Phone: 05-28-2021 18:41-0400 Diastolic blood pressure 76 mm[Hg] Kia Sharma CNP Work Phone: [facility] Work Phone: 05-28-2021 18:41-0400 Heart rate 83 /min Kia Sharma CNP Work Phone: [facility] Work Phone: 05-28-2021 18:41-0400 SaO2% (BldA) [Mass fraction] 98 % Kia Sharma CNP Work Phone: [facility] Work Phone: 05-28-2021 18:41-0400 Systolic blood pressure 122 mm[Hg] Kia Edith LONG CHAIN DYE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 Work Phone: [facility] Work Phone: 10-14-2020 13:00-0400 Diastolic blood pressure 68 mm[Hg] Anthnoy Galloway MD Work Phone: [employer] Work Phone: 10-14-2020 13:00-0400 Heart rate 60 /min Anthony Galloway MD Work Phone: [employer] Work Phone: 10-14-2020 13:00-0400 Respiratory rate 16 /min Anthony Galloway MD Work Phone: [employer] Work Phone: 10-14-2020 13:00-0400 SaO2% (BldA) [Mass fraction] 99 % Anthony Galloway MD Work Phone: [employer] Work Phone: 10-14-2020 13:00-0400 Systolic blood pressure 114 mm[Hg] Anthony Galloway MD Work Phone: [employer] Work Phone: 10-14-2020 12:25-0400 Body temperature 97.39 [degF] Anthony Galloway MD Work Phone: [employer] Work Phone: 10-14-2020 09:35-0400 Body height 172.7 cm Anthony Galloway MD Work Phone: [employer] Work Phone: 10-14-2020 09:35-0400 Body mass index (BMI) [Ratio] 20.13 kg/m2 Anthony Galloway MD Work Phone: [employer] Work Phone: 10-14-2020 09:35-0400 Body weight 60.06 kg Anthony Galloway MD Work Phone: [employer] Work Phone: 05-27-2020 22:19-0400 Body Temperature 97.5 [degF] [facility] Work Phone: 05-27-2020 22:19-0400 BP Diastolic 79 mm[Hg] [employer] Work Phone: 05-27-2020 22:19-0400 BP Systolic 133 mm[Hg] [employer] Work Phone: 05-27-2020 22:19-0400 Pulse (Heart Rate) 94 /min [employer] Work Phone: 05-27-2020 22:19-0400 Pulse Oximetry 98 % [employer] Work Phone: 05-27-2020 22:19-0400 Respiratory Rate 16 /min [employer] Work Phone: 04-03-2020 16:21-0500 BMI (Body Mass Index) 21.9 kg/m2 [facility] Work Phone: 04-03-2020 16:21-0500 Body Temperature 97.9 [degF] [facility] Work Phone: 04-03-2020 16:21-0500 Body weight 67.13 kg [facility] Work Phone: 04-03-2020 16:21-0500 BP Diastolic 82 mm[Hg] [facility] Work Phone: 04-03-2020 16:21-0500 BP Systolic 138 mm[Hg] [facility] Work Phone: 04-03-2020 16:21-0500 BSA (Body Surface Area) 1.82 m2 [facility] Work Phone: 04-03-2020 16:21-0500 Height 175.26 cm [facility] Work Phone: 04-03-2020 16:21-0500 Pulse (Heart Rate) 77 /min [facility] Work Phone: 04-03-2020 16:21-0500 Pulse Oximetry 96 % [facility] Work Phone: 04-03-2020 16:21-0500 Respiratory Rate 18 /min [facility] Work Phone: 04-03-2020 16:21-0500 SaO2% (BldA) [Mass fraction] 96 % [facility] Work Phone: [facility] Work Phone: 03-20-2020 11:57-0500 BMI (Body Mass Index) 21.4 kg/m2 [facility] Work Phone: 03-20-2020 11:57-0500 Body weight 65.77 kg [facility] Work Phone: 03-20-2020 11:57-0500 BSA (Body Surface Area) 1.8 m2 [facility] Work Phone: 03-20-2020 11:57-0500 Height 175.26 cm [facility] Work Phone: 02-25-2020 21:28-0500 BMI (Body Mass Index) 23.22 kg/m2 [facility] [place] 02-25-2020 21:28-0500 Body Temperature 98.2 [degF] [facility] 02-25-2020 21:28-0500 Body weight 70.31 kg [facility] [place] 02-25-2020 21:28-0500 BP Diastolic 76 mm[Hg] [facility] [place] 02-25-2020 21:28-0500 BP Systolic 144 mm[Hg] [facility] [place] 02-25-2020 21:28-0500 Height 174 cm [facility] [place] 02-25-2020 21:28-0500 Pulse (Heart Rate) 73 /min [facility] 02-25-2020 21:28-0500 Pulse Oximetry 100 % [facility] [place] 02-25-2020 21:28-0500 Respiratory Rate 16 /min [facility] [place] 02-06-2020 17:44-0500 Respiratory Rate 16 /min [facility] [place] 02-06-2020 17:19-0500 BMI (Body Mass Index) 23.57 kg/m2 [facility] 02-06-2020 17:19-0500 Body Temperature 99.61 [degF] [facility] 02-06-2020 17:19-0500 Body weight 70.31 kg [facility] 02-06-2020 17:19-0500 BP Diastolic 60 mm[Hg] [facility] 02-06-2020 17:19-0500 BP Systolic 120 mm[Hg] [facility] 02-06-2020 17:19-0500 Height 172.7 cm [facility] 02-06-2020 17:19-0500 Pulse (Heart Rate) 81 /min [facility] 02-06-2020 17:19-0500 Pulse Oximetry 98 % [facility] 12-24-2019 12:27-0400 BMI (Body Mass Index) 23.42 kg/m2 [facility] 12-24-2019 12:27-0400 Body Temperature 97.9 [degF] [facility] [place] 12-24-2019 12:27-0400 Body weight 69.85 kg [facility] 12-24-2019 12:27-0400 BP Diastolic 64 mm[Hg] [facility] [place] 12-24-2019 12:27-0400 BP Systolic 122 mm[Hg] [facility] 12-24-2019 12:27-0400 Pulse (Heart Rate) 68 /min [facility], [place] 12-24-2019 12:27-0400 Pulse Oximetry 99 % [facility], [place] 12-24-2019 12:27-0400 Respiratory Rate 16 /min [facility], [place] NEGATED: Highlighted row BMI (Body Mass Index) [facility] NEGATED: Highlighted row BMI (Body Mass Index) [facility] NEGATED: Highlighted row BMI (Body Mass Index) [facility] NEGATED: Highlighted row Body Temperature [facility] NEGATED: Highlighted row Body Temperature [facility] NEGATED: Highlighted row Body Temperature [facility] NEGATED: Highlighted row Body weight [facility] NEGATED: Highlighted row Body weight [facility] NEGATED: Highlighted row Body weight [facility] NEGATED: Highlighted row BP Diastolic [facility] NEGATED: Highlighted row BP Diastolic [facility] NEGATED: Highlighted row BP Diastolic [facility] NEGATED: Highlighted row BP Systolic [facility] NEGATED: Highlighted row BP Systolic [facility] NEGATED: Highlighted row BP Systolic [facility] NEGATED: Highlighted row Height [facility] NEGATED: Highlighted row Height [facility] NEGATED: Highlighted row Height [facility] NEGATED: Highlighted row Pulse (Heart Rate) [facility] NEGATED: Highlighted row Pulse (Heart Rate) [facility] NEGATED: Highlighted row Pulse (Heart Rate) [facility] NEGATED: Highlighted row Pulse Oximetry [facility] NEGATED: Highlighted row Pulse Oximetry [facility] NEGATED: Highlighted row Pulse Oximetry [facility] NEGATED: Highlighted row Respiratory Rate [facility] NEGATED: Highlighted row Respiratory Rate [facility] NEGATED: Highlighted row Respiratory Rate [facility] Encounters Encounter Date Encounter Type Care Provider Facility Start: 12-21-2023 End: 12-21-2023 ambulatory YURIY DALJIT Not Available Start: 11-20-2023 ambulatory GENESIS RUSTY Not Availa ble Start: 11-06-2023 End: 11-06-2023 ambulatory YURIY DALJIT Not Available Start: 11-01-2023 End: 11-01-2023 ambulatory YURIY DALJIT Not Available Start: 10-23-2023 End: 10-23-2023 ambulatory YURIY DALJIT Not Available Start: 10-16-2023 End: 10-16-2023 ambulatory GENESIS RUSTY Not Available Start: 10-02-2023 End: 10-02-2023 ambulatory YURIY DALJIT Not Available Start: 09-29-2023 End: 09-29-2023 ambulatory [facility] Start: 09-18-2023 End: 09-18-2023 ambulatory GENESIS RUSTY Not Available Start: 09-12-2023 End: 09-12-2023 ambulatory [facility] Start: 09-12-2023 End: 09-12-2023 Subsequent hospital visit by physician Brenda Stephen SHIPS EQUIPMENT ENGINEER - CNM Work Phone: [facility] Labor and Delivery Start: 09-04-2023 End: 09-04-2023 ambulatory VIPIN MICHAEL [facility] Start: 09-04-2023 End: 09-04-2023 ambulatory YURIY DALJIT Not Available Start: 09-02-2023 End: 09-03-2023 [facility] Start: 08-24-2023 End: 08-24-2023 ambulatory [facility] Start: 08-24-2023 End: 08-24-2023 Subsequent hospital visit by physician Jagdeep Manrique DO Work Phone: [facility] Labor and Delivery Start: 08-03-2023 End: 08-03-2023 ambulatory GENESIS RUSTY Not Available Start: 07-06-2023 End: 07-06-2023 ambulatory YURIY DALJIT Not Available Start: 06-30-2023 End: 06-30-2023 Emergency department patient visit [facility] Start: 06-20-2023 End: 06-20-2023 ambulatory YURIY DALJIT Not Available Start: 05-23-2023 End: 05-23-2023 ambulatory YURIY DALJIT Not Available Start: 05-18-2023 End: 05-18-2023 Emergency department patient visit [facility] Start: 05-01-2023 End: 05-01-2023 [facility] Start: 05-01-2023 End: 05-01-2023 Subsequent hospital visit by physician Kia Sharma APRN - LONG CHAIN DYE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 Work Phone: [facility] Laboratory Start: 04-27-2023 End: 04-27-2023 ambulatory YURIY DALJIT Not Available Start: 09-05-2022 End: 09-05-2022 General Maria D Sow LONG CHAIN DYE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 Work Phone: [facility] Work Phone: Start: 08-03-2022 End: 08-03-2022 Emergency department patient visit Samara Paulino MD Work Phone: [facility] ED Comment on above: Flank pain (Primary Dx); Urinary tract infection without hematuria, site unspecified Start: 07-27-2022 End: 07-27-2022 FQHC visit, estab pt Mariposa Duncan LONG CHAIN DYE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 Work Phone: [facility] Work Phone: Start: 06-03-2022 End: 06-05-2022 Subsequent hospital visit by physician [facility] Radiologist [facility] Ultrasound Comment on above: Abscess of female br east Start: 04-24-2022 End: 04-24-2022 Emergency department patient visit Kia Sharma APRN - LONG CHAIN DYE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 Work Phone: [facility] ED Comment on above: Nausea vomiting and diarrhea (Primary Dx) Start: 03-15-2022 End: 03-15-[address] YURIY SABILLON Facility:[facility] Start: 03-04-2022 End: 03-04-2022 Subsequent hospital visit by physician Geoff Miller MD Work Phone: [facility] OR Comment on above: Abscess of right lynette ast (Primary Dx) Start: 03-01-2022 End: 03-01-2022 Emergency department patient visit Nicholas Denton MD Work Phone: [facility] ED Comment on above: Cellulitis of right breast (Primary Dx) Start: 10-26-2021 End: 10-29-2021 Evaluation and management of inpatient PHYSICIAN [facility] Facility:[facility] Start: 10-26-2021 End: 10-29-2021 Evaluation and management of inpatient PHYSICIAN NO [facility] [place] [address] Start: 08-17-2021 End: 08-17-2021 FQHC visit, estab pt Halima Argueta [facility] Work Phone: [facility] Work Phone: Start: 08-17-2021 End: 08-17-2021 FQHC visit, estab pt Kia Sharma LONG CHAIN DYE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 Work Phone: [facility] Work Phone: Start: 07-15-2021 End: 07-15-2021 FQHC visit, estab pt Halima Argueta [facility] Work Phone: [facility] Work Phone: Start: 07-15-2021 End: 07-15-2021 FQHC visit, estab pt Kia Sharma LONG CHAIN DYE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 Work Phone: [facility] Work Phone: Start: 07-01-2021 End: 07-01-2021 FQHC visit, estab pt Kia Sharma LONG CHAIN DYE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 Work Phone: [facility] Work Phone: Start: 05-29-2021 End: 05-29-2021 ambulatory KIA SHARMA [facility] Start: 05-28-2021 End: 05-28-2021 Subsequent hospital visit by physician AGNES CHEN [facility] Start: 05-28-2021 End: 05-28-2021 FQHC visit, estab pt Kia Sharma LONG CHAIN DYE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 Work Phone: [facility] Work Phone: Start: 03-25-2021 End: 03-25-2021 Subsequent hospital visit by physician [facility] Laboratory Comment on above: Vaginal discharge Start: 03-10-2021 End: 03-10-2021 Subsequent hospital visit by physician [facility] Laboratory Comment on above: Irregular menstrual cycle Start: 10-14-2020 End: 10-14-2020 Subsequent hospital visit by physician Anthony Galloway MD Work Phone: [facility] OR Comment on above: 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) Start: 10-09-2020 End: 10-13-2020 Patient encounter status [facility] Schedule [facility] PRE ADMIT Start: 10-09-2020 End: 10-13-2020 Subsequent hospital visit by physician [facility] Covid19 Pat Screening Schedule [facility] PRE ADMIT Comment on above: Preop testing Start: 09-25-2020 End: 09-25-2020 Patient encounter status [facility] Schedule [facility] PRE ADMIT Start: 09-25-2020 End: 09-25-2020 Subsequent hospital visit by physician [facility] Covid19 Pat Screening Schedule [facility] PRE ADMIT Comment on above: Preop testing (Prima ry Dx) Start: 08-19-2020 End: 08-19-2020 [facility] Comment on above: 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 Start: 05-27-2020 End: 05-27-2020 Emergency department patient visit Sid Norris Work Phone: [facility] ED Comment on above: Dental infection (Pr imary Dx) Start: 04-03-2020 End: 04-03-2020 Established patient Kia Sharma Work Phone: [facility] Work Phone: Start: 04-03-2020 End: 04-03-2020 General Kia Sharma LONG CHAIN DYE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 Work Phone: [facility] Work Phone: Start: 04-03-2020 End: 04-03-2020 General Halima Argueta [facility] Work Phone: [facility] Work Phone: Start: 04-02-2020 End: 04-02-2020 Subsequent hospital visit by physician [facility] Laboratory Comment on above: Women's annual routi ne gynecological examination Start: 03-20-2020 End: 03-20-2020 General Halima Argueta Work Phone: [facility] Work Phone: Start: 03-20-2020 End: 03-20-2020 Telemedicine consultation with patient Kia Sharma Work Phone: [facility] Work Phone: Start: 02-25-2020 End: 02-25-2020 Emergency department patient visit Sid Norris Work Phone: [facility] ED Comment on above: Bacterial vaginosis (Primary Dx); Vaginal bleeding Start: 02-06-2020 End: 02-06-2020 Emergency department patient visit [facility] ED Comment on above: Dental abscess (Prim rachele Dx); Dental caries Start: 12-24-2019 End: 12-24-2019 Emergency department patient visit [facility] ED Comment on above: Dental infection (Pr imary Dx) Start: 02-13-2018 End: 02-15-2018 Evaluation and management of inpatient [facility] Start: 02-20-2016 End: 02-23-2016 [facility] Start: 05-12-2015 End: 05-15-2015 [facility] Start: 02-11-2014 End: 02-14-2014 [facility] Start: 04-28-2007 End: 05-28-2007 [facility] Start: 02-27-2007 End: 03-29-2007 [facility] Start: 01-27-2007 End: 02-26-2007 [facility] Start: 11-27-2006 End: 12-27-2006 [facility] Start: 09-27-2006 End: 10-27-2006 [facility] Start: 08-27-2006 End: 09-26-2006 Discharged Recurring [facility] Start: 07-28-2006 End: 09-26-2006 [facility] Start: 06-27-2006 End: 07-27-2006 Discharged Recurring [facility] Start: 05-28-2006 End: 06-26-2006 Discharged Recurring [facility] Start: 04-27-2006 End: 05-27-2006 Discharged Recurring [facility] Start: 03-30-2006 End: 04-26-2006 [facility] Start: 02-27-2006 End: 03-29-2006 [facility] Start: 01-27-2006 End: 02-26-2006 [facility] Start: 12-28-2005 End: 01-26-2006 Discharged Recurring [facility] Start: 11-27-2005 End: 12-27-2005 Discharged Recurring [facility] Start: 10-28-2005 End: 11-26-2005 [address]charged [address] [facility] Start: 09-27-2005 End: 11-26-[address] [facility] Start: 09-27-2005 End: 10-27-[address] [facility] Start: 08-27-2005 End: 09-26-[address] [facility] Start: 06-27-2005 End: 07-27-2005 Discharged Recurring [facility] Start: 04-27-2005 End: 05-27-[address]charged [address] [facility] Start: 03-30-2005 End: 04-26-[address] [facility] Start: 02-27-2005 End: 03-29-2005 Discharged Recurring [facility] Start: 01-27-2005 End: 02-26-2005 Discharged Recurring [facility] Start: 12-28-2004 Registered Recurring [facility] Start: 11-27-2004 End: 12-27-2004 Discharged Recurring [facility] Start: 11-27-2004 End: 12-27-2004 Discharged Recurring Bryce [facility] Start: 11-27-2004 Registered Recurring Bryce [facility] Start: 10-28-2004 End: 11-26-2004 Discharged Recurring Bryce [facility] Start: 10-28-2004 End: 11-26-2004 Discharged Recurring Bryce [facility] Start: 09-27-2004 End: 10-27-2004 Discharged Recurring Bryce [facility] Start: 09-27-2004 End: 10-27-2004 [facility] Start: 09-02-2004 End: 09-26-2004 [facility] Start: 09-02-2004 End: 09-26-2004 [facility] Start: 05-17-2000 End: 05-27-2000 [facility] Procedures Date Procedure Procedure Detail Performing Clinician Start: 09-12-2023 Urnls dip stick/tabl et rgnt auto w/o microscopy Brenda Stephen SHIPS EQUIPMENT ENGINEER - CNM Work Phone: Start: 09-02-2023 H/O: section History of delivery affecting Brenda Stephen SHIPS EQUIPMENT ENGINEER - CNM Work Phone: Start: 08-24-2023 Urinalysis microscop ic only Jagdeep Escobedo'Adrianou DO Work Phone: Start: 08-24-2023 Urnls dip stick/tabl et rgnt auto w/o microscopy Jagdeep D'Abreau DO Work Phone: Start: 05-01-2023 Blood typing serolog ic abo Yuriy Jc Sabillon MD Work Phone: Start: 05-01-2023 Hemoglobin [...] pressure < 80 mm hg Mariposa Duncan LONG CHAIN DYE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 Work Phone: Start: 07-27-2022 Most recent systolic blood pressure <130 mm hg Mariposa Duncan LONG CHAIN DYE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 Work Phone: Start: 07-27-2022 Urine test visual color cmprsn meths Mariposa Duncan LONG CHAIN DYE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 Work Phone: Start: 06-03-2022 Diagnostic mammograp hy [...] Start: 04-24-2022 Comprehensive metabo lic panel Christopher Stephenson PA-C Work Phone: Start: 03-04-2022 Urine test visual color cmprsn methmakayla Benito SHIPS EQUIPMENT ENGINEER - LONG CHAIN DYE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 Work Phone: Start: 08-17-2021 Most recent diastoli c blood pressure < 80 mm hg Kia Edith LONG CHAIN DYE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 Work Phone: Start: 08-17-2021 Most recent systolic blood pressure <130 mm hg Kia Sharma LONG CHAIN DYE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 Work Phone: Start: 08-17-2021 Psychotherapy w/hussein ent 30 minutes Halima Argueta LPCC-S Work Phone: Start: 07-15-2021 Most recent diastoli c blood pressure < 80 mm hg Kia Edith LONG CHAIN DYE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 Work Phone: Start: 07-15-2021 Most recent systolic blood pressure <130 mm hg Kia Sharma LONG CHAIN DYE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 Work Phone: Start: 07-15-2021 Psychotherapy w/hussein ent 30 minutes Halima Argueta LPCC-S Work Phone: Start: 07-01-2021 Most recent diastoli c blood pressure < 80 mm hg Kia Edith LONG CHAIN DYE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 Work Phone: Start: 07-01-2021 Most recent systolic blood pressure <130 mm hg Kia Sharma LONG CHAIN DYE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 Work Phone: Start: 05-28-2021 Antibody hiv-1&hiv-2 single result Kia Edith LONG CHAIN DYE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 Work Phone: Start: 05-28-2021 Most recent diastoli c blood pressure < 80 mm hg Kia Edith LONG CHAIN DYE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 Work Phone: Start: 05-28-2021 Most recent systolic blood pressure <130 mm hg Kia Edith LONG CHAIN DYE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 Work Phone: Start: 05-28-2021 Pt-focused hlth risk assmt score doc stnd instrm Kia Edith LONG CHAIN DYE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 Work Phone: Start: 05-28-2021 Viral screening Visit For: Scr eening Exam For Herpes Kia Sharma LONG CHAIN DYE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 Work Phone: Start: 03-10-2021 End: 03-10-2021 Gonadotropin follicle stimulating hormone Anthony Galloway MD Work Phone: Start: 10-14-2020 Urine test visual color cmprsn meths Anthony Galloway MD Work Phone: Start: 10-09-2020 COVID-19 Sabas siddiqi MD Work Phone: Start: 04-02-2020 Microscopic observat ion [Identifier] in Cervix by Cyto stain Start: 03-20-2020 delivery only Kia Sharma Start: 03-20-2020 section Kia Sharma LONG CHAIN DYE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 Work Phone: Start: 03-20-2020 Psychotherapy w/hussein ent [...] FEI LOO Start: 02-13-2018 DIET GENERAL FEI NEWSPAPER PUBLISHER Start: 02-13-2018 FULL CODE FEI NEWSPAPER PUBLISHER Start: 02-13-2018 URINE DRUG SCREEN JUSTINE AMINPTA Start: 02-13-2018 Urine test visual color cmprsn meths FEI AMINPTA Start: 02-13-2018 VITAL SIGNS FEI NEWSPAPER PUBLISHER Start: 02-13-2018 PATIENT STATUS (DIRECT) FEI LOO SARS Antigen (LFIA) PHYSICIA N NO FAMILY Plan of Treatment Date Care Activity Detail Author Start: 2053 Respiratory Syncytia l Virus (RSV) or age 60 yrs+ (1 - 1-dose 60+ series) Respiratory Syncytial Virus (RSV) or age 60 yrs+ (1 - 1-dose 60+ series) [facility] Start: 03-21-2027 DTaP/Tdap/Td vaccine (2 - Td or Tdap) DTaP/Tdap/Td vaccine (2 - Td or Tdap) [facility] Start: 03-21-2027 DTaP/Tdap/Td vaccine (2 - Td) DTaP/Tdap/Td vaccine (2 - Td) [facility] [place] Start: 04-02-2025 Screening for malign ant neoplasm of cervix [facility] Start: 01-04-2024 FQHC visit, estab pt Medical E stablished Patient [facility] Work Phone: Start: 10-29-2023 Respiratory Syncytia l Virus (RSV) or age 60 yrs+ (1 - Risk 1-dose series) Respiratory Syncytial Virus (RSV) or age 60 yrs+ (1 - Risk 1-dose series) [facility] Start: 09-28-2023 Influenza vaccination B ON [facility] Start: 08-25-2023 Tdap Vaccine during Tdap Vaccine during [facility] Start: 04-02-2023 Screening for malign ant neoplasm of cervix [facility] Start: 09-27-2022 Influenza vaccination B ON [facility] Start: 09-05-2022 End: 09-05-2022 Patient education based on identified need [facility] Start: 08-25-2022 FQHC visit, estab pt Medical E stablished Patient [facility] Work Phone: Start: 07-27-2022 End: 07-27-2022 Patient education based on identified need [facility] Start: 07-27-2022 CBC W Auto Different ial panel - Blood [facility] Start: 04-25-2022 End: 04-25-2022 Patient encounter procedure 04/25/2022 Appointment Radiology Radiologist, [facility] Start: 03-04-2022 End: 03-04-2022 Incision & drainage abscess simple/single BREAST INCISION AND DRAINAGE Abscess of right breast 03/04/2022 12:36 PM EST [facility] Start: 10-29-2021 [facility] Work Phone: Start: 10-28-2021 Influenza vaccination Flu vacc ine (Season Ended) [facility] Start: 10-26-2021 Referral to [employer] Work Phone: Start: 10-26-2021 Hospital admission [facility] Work Phone: Start: 09-27-2021 Influenza vaccination Flu vaccine (# 1) [facility] Start: 09-16-2021 FQHC visit, estab pt Medical E stablished Patient [facility] Work Phone: Start: 08-17-2021 FQHC visit, estab pt Medical E stablished Patient [facility] Work Phone: Start: 08-17-2021 End: 08-17-2021 Patient education based on identified need Health [facility] Start: 07-15-2021 FQHC visit, estab pt Medical E stablished Patient [facility] Work Phone: Start: 07-15-2021 End: 07-15-2021 Patient education based on identified need Health [facility] Start: 07-01-2021 End: 07-01-2021 Patient education based on identified need Health [facility] Start: 05-28-2021 End: 05-28-2021 Patient education based on identified need Health [facility] Start: 04-14-2021 End: 04-14-2021 Patient encounter procedure 04/14/2021 Office Visit Obstetrics and Gynecology Anthony Galloway MD [address] [facility] [address] [place] [address] [facility] OBSTETRICS & GYNECOLOGY Part of [facility] Start: 03-05-2021 FQHC visit, estab pt Medical E stablished Patient [facility] Work Phone: Start: 10-28-2020 Influenza vaccination [facility] Start: 10-14-2020 End: 10-14-2020 Admission to same day surgery center 10/14/2020 Surgery IP Unit Anthony Galloway MD [address] [place], [place] [id number] DILATATION AND CURETTAGE LEEP-ENDOCERVICAL CURETTAGE [facility] OR Comment on above: DILATATION AND CURET TAGE LEEP-ENDOCERVICAL CURETTAGE Start: 10-14-2020 Subsequent hospital visit by physician 10/14/2020 Hospital Encounter IP Unit Anthony Galloway MD [address] [place] [address] [facility] Start: 10-09-2020 End: 10-09-2020 Patient encounter procedure 10/09/2020 Appointment Pre-Admission Testing [facility] PRE ADMIT Start: 09-25-2020 End: 09-25-2021 COVID-19 COVID-19 Lab Routine Preop testing Expected: 09/25/2020, Expires: 09/25/2021 [facility] Work Phone: Comment on above: Expected: 09/25/2020 , Expires: 09/25/2021 Start: 04-23-2020 End: 04-23-2020 Procedure visit 04/23/2020 Procedure visit Obstetrics and Gynecology Anthony Galloway MD [address] [facility], [place] [id number] [facility] OBSTETRICS & [facility]YNECOLOGY Start: 04-03-2020 End: 04-03-2020 Patient education based on identified need [facility] Start: 04-03-2020 Medical Establ ished Patient [facility] Work Phone: Start: 03-20-2020 End: 03-20-2020 Patient education based on identified need [facility] Start: 10-29-2019 Influenza vaccination Flu vaccine (# 1) [place], [place] Start: 2014 Screening for malign ant neoplasm of cervix Cervical cancer screen [place], [place] Start: 2011 Hepatitis C screening Hepatitis C sc reen [facility] Start: 2009 COVID-19 Vaccine (1) COVID-19 Vaccin e (1) [facility] Work Phone: Start: 2008 HIV screening HIV screen [facility] Start: 2005 COVID-19 Vaccine (1) COVID-19 Vaccin e (1) [facility] Work Phone: Start: 2005 Depression Monitoring Depression [facility] Start: 2005 Depression Screen Depression Screen [facility] Start: 2004 HPV vaccine (1 - 2-d ose series) HPV vaccine (1 - 2-dose series) [place], [place] Start: 1999 Pneumococcal 0-64 ye ars Vaccine (1 - PCV) Pneumococcal 0-64 years Vaccine (1 - PCV) [facility] Start: 1999 Pneumococcal 0-64 ye ars Vaccine (1 of 1 - PPSV23) Pneumococcal 0-64 years Vaccine (1 of 1 - PPSV23) [place] Start: 1999 Pneumococcal 0-64 ye ars Vaccine (1 of 2 - PCV) Pneumococcal 0-64 years Vaccine (1 of 2 - PCV) [facility] Start: 1999 Pneumococcal 0-64 ye ars Vaccine (1 of 2 - PPSV23) Pneumococcal 0-64 years Vaccine (1 of 2 - PPSV23) [facility] Start: 1998 COVID-19 Vaccine (1) COVID-19 Vaccin e (1) [facility] Start: 1994 Varicella vaccine (1 of 2 - 2-dose childhood series) Varicella vaccine (1 of 2 - 2-dose childhood series) [facility] Start: 1993 COVID-19 Vaccine (#1) COVID-19 Vacci ne (#1) [facility] Start: 1993 Hepatitis B vaccine (1 of 3 - 3-dose series) Hepatitis B vaccine (1 of 3 - 3-dose series) [facility] Start: 1993 Hepatitis C screening Hepatitis C sc reen [facility] End: 08-24-2023 Bacteria identified in Urine by Culture Urine culture Microbiology Routine One Time for 1 Occurrences starting 08/24/2023 until 08/24/2023 [facility] Comment on above: One Time for 1 Occur rences starting 08/24/2023 until 08/24/2023 End: 09-12-2023 Bacteria identified in Urine by Culture Urine culture Microbiology Routine One Time for 1 Occurrences starting 09/12/2023 until 09/12/2023 [email or web address] Comment on above: One Time for 1 Occur rences starting 09/12/2023 until 09/12/2023 End: 02-25-2020 C.trachomatis N.gonorrhoeae DNA C.trachomatis N.gonorrhoeae DNA Microbiology STAT One Time for 1 Occurrences starting 02/25/2020 until 02/25/2020 [employer] [place] Comment on above: One Time for 1 Occur rences starting 02/25/2020 until 02/25/2020 C.trachomatis N.gonorrhoeae DNA C.trachomatis N.gonorrhoeae DNA Microbiology STAT 02/25/2020 10:29 PM EST [employer] Culture, Anaerobic a nd Aerobic [employer] Work Phone: Comment on above: Release Upon Orderin g for 1 Occurrences starting 03/04/2022 End: 03-25-2021 Culture, Genital [employer] Work Phone: Comment on above: 1 Occurrences starti ng 03/25/2021 until 03/25/2021 End: 08-03-2022 Culture, Urine [email or web address] Work Phone: Comment on above: Once for 1 Occurrenc es starting 08/03/2022 until 08/03/2022 End: 05-01-2023 Culture, Urine [employer] Work Phone: Comment on above: Once for 1 Occurrenc es starting 05/01/2023 until 05/01/2023 End: 05-29-2021 Culture, Virus, Non Respiratory Culture, Virus, Non Respiratory Microbiology Routine Once for 1 Occurrences starting 05/29/2021 until 05/29/2021 [employer] Phone: Comment on above: Once for 1 Occurrenc es starting 05/29/2021 until 05/29/2021 Culture, Virus, Non Respiratory Culture, Virus, Non Respiratory Microbiology Routine 05/28/2021 11:57 PM EDT [employer] Phone: End: 04-02-2020 Cytopathology procedure, preparation of smear, genital source PAP SMEAR Lab Routine Women's annual routine gynecological examination 1 Occurrences starting 04/02/2020 until 04/02/2020 [employer] [employer] [employer] Comment on above: 1 Occurrences starti ng 04/02/2020 until 04/02/2020 nonstress test nonst ress test OB Routine Daily until discontinued starting 08/25/2023 [employer] Phone: Comment on above: Daily until disconti nued starting 08/25/2023 nonstress test nonst ress test OB Routine Daily until discontinued starting 09/13/2023 [employer] Phone: Comment on above: Daily until disconti nued starting 09/13/2023 End: 05-01-2023 HIV Screen [email or web address] Comment on above: Once for 1 Occurrenc es starting 05/01/2023 until 05/01/2023 End: 03-04-2022 INITIATE PACU OXYGEN THERAPY PROTOCOL Initiate PACU Oxygen Therapy Protocol Respiratory Care Routine Continuous until discontinued starting 03/04/2022 [employer] Phone: Comment on above: Continuous until dis continued starting 03/04/2022 Oxygen therapy [Mini mum Data Set] Initiate Oxygen Therapy Protocol Respiratory Care Routine Daily until discontinued starting 10/14/2020 [employer] Phone: Comment on above: Daily until disconti nued starting 10/14/2020 Oxygen therapy [Mini mum Data Set] Initiate Oxygen Therapy Protocol Respiratory Care Routine As Needed until discontinued starting 03/04/2022 [employer] Phone: Comment on above: As Needed until disc ontinued starting 03/04/2022 Patient Education Schizophrenia (DC) [facility] DC Instructions [facility] Work Phone: Patient referral [facility] Work Phone: Phase I & II - meter ed glucose Phase I & II - metered glucose Point of Care Testing Routine As Needed until discontinued starting 10/14/2020 [employer] Phone: Comment on above: As Needed until disc ontinued starting 10/14/2020 End: 08-19-2020 Surgical Pathology Surgical Pathology Lab Routine HGSIL (high grade squamous intraepithelial lesion) on Pap smear of cervix 1 Occurrences starting 08/19/2020 until 08/19/2020 [employer] Phone: Comment on above: 1 Occurrences starti ng 08/19/2020 until 08/19/2020 Surgical Pathology Surgical Path ology Lab Routine Release Upon Ordering for 1 Occurrences starting 10/14/2020 [employer] Phone: Comment on above: Release Upon Orderin g for 1 Occurrences starting 10/14/2020 End: 08-24-2023 SVE SVE Point of Care Testing Routine One Time for 1 Occurrences starting 08/24/2023 until 08/24/2023 [email or web address] Comment on above: One Time for 1 Occur rences starting 08/24/2023 until 08/24/2023 End: 09-12-2023 SVE SVE Point of Care Testing Routine One Time for 1 Occurrences starting 09/12/2023 until 09/12/2023 [email or web address] Comment on above: One Time for 1 Occur rences starting 09/12/2023 until 09/12/2023 End: 05-01-2023 T. pallidum Ab [email or web address] Comment on above: Once for 1 Occurrenc es starting 05/01/2023 until 05/01/2023 Immunizations Immunization Date Immunization Notes Care Provider Ralf kim 02-26-2019 Influenza, injectabl e, [place] Canine Kidney, preservative free, quadrivalent PHYSICIAN NO FAMILY [facility] Payers Date Payer Category Payer Private Health Insurance [id number] 2021 Self-pay 1993 Unknown [id number] 2.16.8 [id number] 1993 Unknown [id number] 2.16. [id number] 1993 Unknown [id number] 2.16.84 0.1.062822.3.579.2.593 1993 Unknown [id number] 2.16.8 40.1.282820.3.579.2.173 1993 Unknown [id number] 2.16.8 40.1.199126.3.579.2.173 1993 Unknown [id number] 2.16.8 40.1.746718.3.579.2.173 1993 Unknown [id number] 2.16.8 40.1.886793.3.579.2.173 1993 Unknown [id number] 2.16.8 40.1.461283.3.579.2.173 1993 Unknown [id number] 2.16.8 40.1.266048.3.579.2.173 1993 Unknown [id number] 2.16.8 40.1.174555.3.579.2.173 1993 Unknown [id number] 2.16.8 40.1.168776.3.579.2.173 1993 Unknown [id number] 2.16.84 0.1.030512.3.579.2.1259 1993 Unknown [id number] 2.16.84 0.1.058025.3.579.2.1259 1993 Unknown [id number] 2.16.84 0.1.394466.3.579.2.1259 1993 Unknown [id number] 2.16.84 0.1.533407.3.579.2.1259 1993 Unknown [id number] 2.16.84 0.1.800017.3.579.2.1259 1993 Unknown [id number] 2.16.84 0.1.949379.3.579.2.9 1993 Unknown [id number] 2.16.84 0.1.997627.3.579.2.9 1993 Unknown [id number] 2.16.84 0.1.001138.3.579.2.9 1993 Unknown [id number] 2.16.84 0.1.295155.3.579.2.9 1993 Unknown [id number] 2.16.84 0.1.229169.3.579.2.9 1993 Unknown [id number] 2.16.84 0.1.192197.3.579.2.9 1993 Unknown [id number] 2.16.84 0.1.438207.3.579.2.9 1993 Unknown [id number] 2.16.84 0.1.201898.3.579.2.9 1993 Unknown [id number] 2.16.84 0.1.042352.3.579.2.1259 1959 Medicaid [id number] Unknown [id number] 2.16.8 40.1.384680.3.579.2.531 Social History Date Type Detail Facility Start: 12-24-2019 End: 03-01-2022 Tobacco smoking status CTIS Current every day smoker [place], [place] History of tobacco use Cigarette Smoker [place], [place] Start: 12-24-2019 End: 09-04-2023 Cigarettes smoked current (pack per day) - Reported [place] Start: 12-24-2019 End: 09-12-2023 Tobacco use and exposure Never used [place], [place] Start: 12-24-2019 End: 09-12-2023 Alcohol intake Current non-drinker of alcohol (finding) [place], [place] Start: 1995 Sex Assigned At Not on file [place], [place] Start: 02-19-2022 End: 04-24-2022 Exposure to SARS-CoV-2 (event) Not sure [facility] [place] Assertion Exposure to poll ution (event) [facility] Assertion Tobacco user (finding) [facility] Tobacco smoking status Unknown i f ever smoked [facility] Work Phone: Assertion Social drinker (finding) [facility] Assertion Sexually active (finding) [facility] Assertion [facility] Assertion Gender identity finding (finding) [facility] Assertion Finding of sexua l orientation (finding) [facility] Moderate cigaret te smoker (10-19 cigs/day) (finding) [facility] Assertion Heavy cigarette smoker (20-39 cigs/day) (finding) [facility] Start: 10-27-2021 Assertion Smoker (finding) [facility] Start: 1995 Sex Assigned At Female F [facility] Start: 03-01-2022 History SDOH Alcohol Frequency 1 [email or web address] Work Phone: Start: 03-01-2022 History SDOH Alcohol Std Drinks 0 [email or web address] Work Phone: Start: 03-04-2022 Alcohol Comment barely ever- sociall y [email or web address] Work Phone: Start: 03-01-2022 End: 09-04-2023 Alcohol Use Disorder Identification Test - Consumption [AUDIT-C] [email or web address] How often to you hav e a drink containing alcohol? Never [email or web address] Start: 09-12-2023 Tobacco smoking stat us CTIS Ex-smoker [email or web address] Start: 03-03-2023 [facility] [place] NEGATED: Highlighted row Assertion [facility] NEGATED: Highlighted row Assertion Current drinker of alcohol (finding) [facility] NEGATED: Highlighted row Assertion Exposure to pollution (event) [facility] Goals Date Patient Goal Desired Activity /State Functional Status Date Assessment Result Facility 10-29-2021 Functional status Patient at [facility] Work Phone: Mental Status Date Assessment Result Facility 10-29-2021 Cognitive function Cognitive Sta tus Patient at [facility] Work Phone: Cognitive function Cognitive fun ctioning was normal Cognitive function finding (finding) [facility] Work Phone: Clinical Notes 03-20-2020 to 01-02-2024 Note Date & Type Note Facility 01-02-2024 Progress note Progress note Date 01/02/2024 Chart Update Last documented on 01/03/2024; 10:46 AM, Maria D Sow CNP; [facility] Active Problems & Conditions - J45.998 - Asthma - M54.50 - Backache Lower - K21.9 - Esophageal Reflux Without Esophagitis - 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 - F25.0 - Schizoaffective Disorder Current Medication - Albuterol Sulfate HFA 108 (90 Base) MCG/ACT Inhalation Aerosol Solution inhale 1 to 2 puffs by mouth and INTO THE LUNGS every 4 to 6 hours if needed for shortness of breath, 30 days, 11 refills - busPIRone HCl 10 MG Oral Tablet take 1 tablet by mouth 3 times per day, 30 days, 0 refills - Famotidine 20 MG Oral Tablet TAKE 1 TABLET BY MOUTH TWICE DAILY, 30 days, 10 refills - FLUoxetine HCl 20 MG Oral Capsule take 1 tablet by mouth daily, 30 days, 0 refills - Omeprazole 20 MG Oral Capsule Delayed Release Take one tablet with first meal of the day, 30 days, 2 refills - Prazosin HCl 2 MG Oral Capsule take 1 tablet by mouth nightly 1 hour before bed., 30 days, 0 refills - SEROquel 50 MG Oral Tablet take 1 tablet by mouth daily before bed, 30 days, 0 refills - Strattera 60 MG Oral Capsule daily- Dominga Medel, 0 days, 0 refills - Symbicort 80-4.5 MCG/ACT Inhalation Aerosol Inhale 2 puffs by mouth twice a day (rinse mouth after use), 30 days, 2 refills - Symbicort 80-4.5 MCG/ACT Inhalation Aerosol INHALE TWO (2) PUFFS BY MOUTH TWICE DAILY RINSE MOUTH AFTER USE, 30 days, 10 refills Past Medical/Surgical History Reported: Medical: No previous hospitalizations. Immunization History: Recent immunization for flu. : Not planning a in the next year. Diagnoses: Asthma. Psychiatric disorders ADHD, manic bipolar 1 and 2, schizoeffective disorder Per pt report- 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 heartburn. Procedural: - Tooth extraction Surgical: - section x3 Allergies - No Known Allergies Family History Father unknown Maternal: Systemic hypertension Fraternal: Asthma Previous Tests Pathology: Cytology: Cervical Pap smear 05/23/2023. Microbiology: Microbiology - Cervical: Cervical smear for human papilloma virus was negative. Health Reminders - PAP satisfied [facility]23[facility]2023. [id number] History of Present illness Narrative* Ana Riley RN - 09/12/2023 7:09 PM EDT Discharge paperwork discussed with patient, all issues and concerns addressed. Any and all questions answered. Patient verbalized understanding. Personal belongings gathered and patient ambulated outwith easy respirations, no distress noted. * Ana Riley RN - 09/12/2023 6:31 PM EDT Call made to Rocco Stephen CNM informed of pt's arrival and other complaints. Discussed urine specimenresults. Reported that d/t lack of ctxs and reassuring FHR along with urine results pt may be discharged. * Ana Riley RN - 09/12/2023 5:50 PM EDT 28yo F [facility] with c/o vaginal discharge, increased [...] [place] do not deliver less than 35 weeks unless emergent. Pt placed on EFM at this time, urine specimen collected and sent to lab. 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 * Attachments The following attachments cannot be sent through Care Everywhere. * : Abdominal Pain (Danish) documented in this encounterB[facility] Hospital Discharge instructions* Discharge Instructions* Iman Malhotra RN - 08/24/2023 8:40 PM EDT OUTPATIENT DISCHARGE Dr. Laverne Meyer [facility] Dr. Delano Kruse [facility] [address] [facility] [address] [facility] [id number] [place] [address] [place] ACTIVITY LIMITATIONS: ( x )Up and about [...] LABOR AND DELIVERY . documented in [facility] Instructions Includes: Instructions for all patient encounters Education and Decision Aids were provided during visit for: Discussed nutritional needs teach healthy choices including fruits and vegetables Last Documented On 3 6:16PM ; [facility] Patient education about a pr oper diet Last Documented On 3 6:16PM ; [facility] Discussed concerns about exe rcise : promote physical activity Last Documented On 3 6:16PM ; [facility] Discussed nutritional needs teach healthy choices including fruits and vegetables Last Documented On 3 6:56PM ; [facility] Patient education about a pr oper diet Last Documented On 3 6:56PM ; [facility] Patient education about an a sthma action plan Last Documented On 3 8:31AM ; [facility] Discussed concerns about exe rcise : promote physical activity ~ ~Will add symbicort ~ ~Follow up in one month Last Documented On 3 10:19AM ; [facility] Discussed current self-care methods/coping skills. ~Validated and normalized pt?s feelings while assisting patient process recent events. ~Discussed ongoing counseling. ~Discussed lifestyle changes to address chronic illness. ~Supported patient's personal health goals Last Documented On 2 4:59PM ; [facility] Discussed nutritional needs teach healthy choices including fruits and vegetables Last Documented On 2 4:50PM ; [facility] Patient education about a pr oper diet Last Documented On 2 4:50PM ; [facility] Discussed concerns about exe rcise : promote physical activity Last Documented On 2 4:50PM ; [facility] Discussed current self-care methods/coping skills. ~Validated and normalized pt?s feelings while assisting patient process recent events. ~Discussed ongoing counseling. ~Discussed lifestyle changes to address chronic illness. ~Supported patient's personal health goals Last Documented On 2 8:09PM ; [facility] Discussed nutritional needs teach healthy choices including fruits and vegetables Last Documented On 2 4:02PM ; [facility] Patient education about a pr oper diet Last Documented On 2 4:02PM ; [facility] Discussed concerns about exe rcise : promote physical activity Last Documented On 2 4:02PM ; [facility] Discussed nutritional needs teach healthy choices including fruits and vegetables Last Documented On 2 5:37PM ; [facility] Patient education about a pr oper diet Last Documented On 2 5:37PM ; [facility] Discussed concerns about exe rcise : promote physical activity Last Documented On 2 5:37PM ; [facility] Discussed nutritional needs teach healthy choices including fruits and vegetables Last Documented On 2 6:48PM ; [facility] Patient education about a pr oper diet Last Documented On 2 6:48PM ; [facility] Discussed concerns about exe rcise : promote physical activity Last Documented On 2 6:48PM ; [facility] Discussed nutritional needs teach healthy choices including fruits and vegetables Last Documented On 1 4:21PM ; [facility] Patient education about a pr oper diet Last Documented On 1 4:21PM ; [facility] Discussed concerns about exe rcise : promote physical activity Last Documented On 1 4:21PM ; [facility] Explored current self-care m ethods and encouraged patient to continue using them Last Documented On 1 7:54PM ; [facility] Discussed nutritional needs teach healthy choices including fruits and vegetables Last Documented On 1 11:53AM ; [facility] Patient education about a pr oper diet Last Documented On 1 11:53AM ; [facility] Discussed concerns about exe rcise : promote physical activity Last Documented On 1 11:53AM ; [facility] Work Phone: 1(363) 423-542607-10-2023 Evaluation note Includes: Assessments for all patient encounters Findings Encounter Date [Body mass index [BMI] 22.0- 22.9, adult] assessment of body mass index Medical Established Patient with Mariposa Perla 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 09/05/2022 Last Documented On 3 3:15PM ; [facility] Esophageal reflux without esophagitis Me dical Established Patient with Mariposa Perla 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 09/05/2022 Last Documented On 3 3:15PM ; [facility] [Body mass index [BMI] 22.0- 22.9, adult] assessment of body mass index Medical Established Patient with Mariposa Perla 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 07/27/2022 Last Documented On 3 10:19AM ; [facility] Diabetes Risk Test Score was 0.0 score 07/27/2022 Medical Established Patient with Mariposa Perla 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 07/27/2022 Last Documented On 3 10:19AM ; [facility] Esophageal reflux without esophagitis Me dical Established Patient with Mariposa Perla 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 07/27/2022 Last Documented On 3 10:19AM ; [facility] Schizoaffective disorder Established Patient with Halima Argueta LPCC-S 08/17/2021 Last Documented On 2 9:40PM ; [facility] Asthma Medical Established Patient with Kia Edith 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 08/17/2021 Last Documented On 2 6:20PM ; [facility] Esophageal reflux without esophagitis Me dical Established Patient with Kia Edith 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 08/17/2021 Last Documented On 2 6:20PM ; [facility] Schizoaffective disorder Medical Establi shed Patient with Kia Edith [facility] 08/17/2021 Last Documented On 2 6:20PM ; [facility] Z68.20 - Body mass index [BM I] 20.0-20.9, adult Medical Established Patient with Kia Edith 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 08/17/2021 Last Documented On 2 6:20PM ; [facility] Schizoaffective disorder Established Patient with Halima Argueta LPCC-S 07/15/2021 Last Documented On 2 11:18AM ; [facility] Schizoaffective disorder Established Patient with Halima Argueta LPCC-S 07/15/2021 Last Documented On 2 11:18AM ; [facility] Bipolar disorder NOS Medical Established Patient with Kia Edith 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 07/15/2021 Last Documented On 2 9:30AM ; [facility] Esophageal reflux without esophagitis Me dical Established Patient with Kia Edith 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 07/15/2021 Last Documented On 2 9:30AM ; [facility] Herpes simplex type I Medical Established Patien t with Kia Sharma [facility] 07/15/2021 Last Documented On 2 9:30AM ; [facility] Z68.1 - Body mass index [BMI ] 19.9 or less, adult Medical Established Patient with Kia Edith 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 07/15/2021 Last Documented On 2 9:30AM ; [facility] Asthma Medical Established Patient with Kia Edith 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 07/01/2021 Last Documented On 2 7:44PM ; [facility] Bipolar disorder NOS Medical Established Patient with Kia Edith 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 07/01/2021 Last Documented On 2 7:44PM ; [facility] Herpes simplex type I Medical Established Patien t with Kia Edith 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 07/01/2021 Last Documented On 2 7:44PM ; [facility] Schizoaffective disorder Medical Establi shed Patient with Kia Edith 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 07/01/2021 Last Documented On 2 7:44PM ; [facility] Z68.20 - Body mass index [BM I] 20.0-20.9, adult Medical Established Patient with Kia Edith 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 07/01/2021 Last Documented On 2 7:44PM ; [facility] Diabetes Risk Test Score was one score 05/28/2021 Medical Established Patient with Kia Deith 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 05/28/2021 Last Documented On 2 8:39AM ; [facility] Herpes simplex type I Medical Established Patien t with Kia Edith 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 05/28/2021 Last Documented On 2 8:39AM ; [facility] No cough Medical Established Patient with Kia Edith 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 05/28/2021 Last Documented On 2 8:39AM ; [facility] Visit for: screening for hum an immunodeficiency virus Medical Established Patient with Kia Edith 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 05/28/2021 Last Documented On 2 8:39AM ; [facility] Z11.59 - Encounter for scree jamari for other viral diseases Medical Established Patient with Kia Edith 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 05/28/2021 Last Documented On 2 8:39AM ; [facility] Z68.1 - Body mass index [BMI ] 19.9 or less, adult Medical Established Patient with Kia Edith 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 05/28/2021 Last Documented On 2 8:39AM ; [facility] Asthma Medical Established Patient with Kia Sharma 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 04/03/2020 Last Documented On 1 1:12PM ; [facility] Body mass index Medical Established Patient with Kia Sharma 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 04/03/2020 Last Documented On 1 1:12PM ; [facility] Esophageal reflux without esophagitis Me dical Established Patient with Kia Sharma 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 04/03/2020 Last Documented On 1 1:12PM ; [facility] Lower backache Medical Established Patient with Kia Sharma 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 04/03/2020 Last Documented On 1 1:12PM ; [facility] Bipolar disorder (per denia vega, diagnosed w/both Bipolar I & II) Telebehavioral Health with Halima Argueta LPCC-S 03/20/2020 Last Documented On 1 7:55PM ; [facility] Schizoaffective disorder (pe r patient report) Telebehavioral Health with Halima Marroquins LPCC-S 03/20/2020 Last Documented On 1 7:55PM ; [facility] Asthma Telemedicine New Patient with An michelle Sharma 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 03/20/2020 Last Documented On 1 9:48AM ; [facility] Lumbago Telemedicine New Patient with An michelle Sharma 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 03/20/2020 Last Documented On 1 9:48AM ; [facility] Z68.21 - Body mass index [BM I] 21.0-21.9, adult Telemedicine New Patient with Kia Sharma 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 03/20/2020 Last Documented On 1 9:48AM ; [facility] Work Phone: 1(429) 324-308107-10-2023 History general Narrative - Reported Includes: Medical History in patient's chart Description Last Updated Not planning to have a baby in the next 12 months 09/05/2022 Last Documented On 3 3:15PM ; [facility] per pt report- 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 ~heartb urn 03/20/2020 Last Documented On 1 9:48AM ; [facility] History of psychiatric disor ders ADHD, manic bipolar 1 and 2, schizoeffective disorder 03/20/2020 Last Documented On 1 9:48AM ; [facility] History of tooth extraction 03/20/2020 Last Documented On 1 9:48AM ; [facility] History of asthma 03/20/2020 Last Documented On 1 9:48AM ; [facility] A recent immunization for flu 03/20/2020 Last Documented On 1 9:48AM ; [facility] No previous hospitalizations 03/20/2020 Last Documented On 1 9:48AM ; [facility] Work Phone: 1(957) 749-885206-07-2023 Hospital Discharge instructions* Discharge Instructions* Samara Paulino MD - 08/03/2022 9:33 AM [...] any worsening symptoms or any acute concerns * Attachments The following attachments cannot be sent through Care Everywhere. * Flank Pain (Danish) * UTI (Urinary Tract Infection): Female (Danish) documented [facility] Work Phone: 1(587) 647-260605-31-2023 Instructions Includes: Instructions for all patient encounters Education and Decision Aids were provided during visit for: Discussed nutritional needs teach healthy choices including fruits and vegetables Last Documented On 3 6:56PM ; [facility] Patient education about a pr oper diet Last Documented On 3 6:56PM ; [facility] Patient education about an a sthma action plan Last Documented On 3 8:31AM ; [facility] Discussed concerns about exe rcise : promote physical activity ~ ~Will add symbicort ~ ~Follow up in one month Last Documented On 3 10:19AM ; [facility] Discussed current self-care methods/coping skills. ~Validated and normalized pt?s feelings while assisting patient process recent events. ~Discussed ongoing counseling. ~Discussed lifestyle changes to address chronic illness. ~Supported patient's personal health goals Last Documented On 2 4:59PM ; [facility] Discussed nutritional needs teach healthy choices including fruits and vegetables Last Documented On 2 4:50PM ; [facility] Patient education about a pr oper diet Last Documented On 2 4:50PM ; [facility] Discussed concerns about exe rcise : promote physical activity Last Documented On 2 4:50PM ; [facility] Discussed current self-care methods/coping skills. ~Validated and normalized pt?s feelings while assisting patient process recent events. ~Discussed ongoing counseling. ~Discussed lifestyle changes to address chronic illness. ~Supported patient's personal health goals Last Documented On 2 8:09PM ; [facility] Discussed nutritional needs teach healthy choices including fruits and vegetables Last Documented On 2 4:02PM ; [facility] Patient education about a pr oper diet Last Documented On 2 4:02PM ; [facility] Discussed concerns about exe rcise : promote physical activity Last Documented On 2 4:02PM ; [facility] Discussed nutritional needs teach healthy choices including fruits and vegetables Last Documented On 2 5:37PM ; [facility] Patient education about a pr oper diet Last Documented On 2 5:37PM ; [facility] Discussed concerns about exe rcise : promote physical activity Last Documented On 2 5:37PM ; [facility] Discussed nutritional needs teach healthy choices including fruits and vegetables Last Documented On 2 6:48PM ; [facility] Patient education about a pr oper diet Last Documented On 2 6:48PM ; [facility] Discussed concerns about exe rcise : promote physical activity Last Documented On 2 6:48PM ; [facility] Discussed nutritional needs teach healthy choices including fruits and vegetables Last Documented On 1 4:21PM ; [facility] Patient education about a pr oper diet Last Documented On 1 4:21PM ; [facility] Discussed concerns about exe rcise : promote physical activity Last Documented On 1 4:21PM ; [facility] Explored current self-care m ethods and encouraged patient to continue using them Last Documented On 1 7:54PM ; [facility] Discussed nutritional needs teach healthy choices including fruits and vegetables Last Documented On 1 11:53AM ; [facility] Patient education about a pr oper diet Last Documented On 1 11:53AM ; [facility] Discussed concerns about exe rcise : promote physical activity Last Documented On 1 11:53AM ; [facility] Work Phone: 1(807) [phone] Evaluation note Includes: Assessments for all patient encounters Findings Encounter Date [Body mass index [BMI] 22.0- 22.9, adult] assessment of body mass index Medical Established Patient with Mariposa Duncan [facility] 07/27/2022 Last Documented On 3 10:19AM ; [facility] Diabetes Risk Test Score was 0.0 score 07/27/2022 Medical Established Patient with Mariposa Rosser [facility] 07/27/2022 Last Documented On 3 10:19AM ; [facility] Esophageal reflux without esophagitis Me dical Established Patient with Mariposa Rosser [facility] 07/27/2022 Last Documented On 3 10:19AM ; [facility] Schizoaffective disorder Established Patient with Halima Argueta [facility] 08/17/2021 Last Documented On 2 9:40PM ; [facility] Asthma Medical Established Patient with Kia Sharma 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 08/17/2021 Last Documented On 2 6:20PM ; [facility] Esophageal reflux without esophagitis Me dical Established Patient with Kia Sharma 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 08/17/2021 Last Documented On 2 6:20PM ; [facility] Schizoaffective disorder Medical Establi shed Patient with Kia Edith 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 08/17/2021 Last Documented On 2 6:20PM ; [facility] Z68.20 - Body mass index [BM I] 20.0-20.9, adult Medical Established Patient with Kia Edith 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 08/17/2021 Last Documented On 2 6:20PM ; [facility] Schizoaffective disorder Established Patient with Halima Argueta [facility] 07/15/2021 Last Documented On 2 11:18AM ; [facility] Schizoaffective disorder Established Patient with Halima Argueta [facility] 07/15/2021 Last Documented On 2 11:18AM ; [facility] Bipolar disorder NOS Medical Established Patient with Kia Edith 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 07/15/2021 Last Documented On 2 9:30AM ; [facility] Esophageal reflux without esophagitis Me dical Established Patient with Kia Edith 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 07/15/2021 Last Documented On 2 9:30AM ; [facility] Herpes simplex type I Medical Established Patien t with Kia Edith 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 07/15/2021 Last Documented On 2 9:30AM ; [facility] Z68.1 - Body mass index [BMI ] 19.9 or less, adult Medical Established Patient with Kia Edith 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 07/15/2021 Last Documented On 2 9:30AM ; [facility] Asthma Medical Established Patient with Kia Edith 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 07/01/2021 Last Documented On 2 7:44PM ; [facility] Bipolar disorder NOS Medical Established Patient with Kia Edith 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 07/01/2021 Last Documented On 2 7:44PM ; [facility] Herpes simplex type I Medical Established Patien t with Kia Edith 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 07/01/2021 Last Documented On 2 7:44PM ; [facility] Schizoaffective disorder Medical Establi shed Patient with Kia Edith 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 07/01/2021 Last Documented On 2 7:44PM ; [facility] Z68.20 - Body mass index [BM I] 20.0-20.9, adult Medical Established Patient with Kia Sharma 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 07/01/2021 Last Documented On 2 7:44PM ; [facility] Diabetes Risk Test Score was one score 05/28/2021 Medical Established Patient with Kia Sharma 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 05/28/2021 Last Documented On 2 8:39AM ; [facility] Herpes simplex type I Medical Established Patien t with Kia Edith [facility] 05/28/2021 Last Documented On 2 8:39AM ; [facility] No cough Medical Established Patient with Kia Sharma [facility] 05/28/2021 Last Documented On 2 8:39AM ; [facility] Visit for: screening for hum an immunodeficiency virus Medical Established Patient with Kia Sharma [facility] 05/28/2021 Last Documented On 2 8:39AM ; [facility] Z11.59 - Encounter for manueljose de jesus jamari for other viral diseases Medical Established Patient with Kia Sharma [facility] 05/28/2021 Last Documented On 2 8:39AM ; [facility] Z68.1 - Body mass index [BMI ] 19.9 or less, adult Medical Established Patient with Kia Sharma 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 05/28/2021 Last Documented On 2 8:39AM ; [facility] Asthma Medical Established Patient with Kia Sharma [facility] 04/03/2020 Last Documented On 1 1:12PM ; [facility] Body mass index Medical Established Patient with Kia Edith [facility] 04/03/2020 Last Documented On 1 1:12PM ; [facility] Esophageal reflux without esophagitis Me dical Established Patient with Kia Edith 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 04/03/2020 Last Documented On 1 1:12PM ; [facility] Lower backache Medical Established Patient with Kia Edith [facility] 04/03/2020 Last Documented On 1 1:12PM ; [facility] Bipolar disorder (per denia vega, diagnosed w/both Bipolar I & II) [facility]behavioral Health [facility] 03/20/2020 Last Documented On 1 7:55PM ; [facility] Schizoaffective disorder (pe r patient report) Telebehavioral Health with Halima Argueta [facility] 03/20/2020 Last Documented On 1 7:55PM ; [facility] Asthma Telemedicine New Patient with An michelle Sharma 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 03/20/2020 Last Documented On 1 9:48AM ; [facility] Lumbago Telemedicine New Patient with An michelle Sharma 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 03/20/2020 Last Documented On 1 9:48AM ; [facility] Z68.21 - Body mass index [BM I] 21.0-21.9, adult Telemedicine New Patient with Kia Sharma 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 03/20/2020 Last Documented On 1 9:48AM ; [facility] Work Phone: [phone]) [phone] Progress note* Progress note Date Encounter Last Documented by 07/27/2022 Medical Established Patient Last documented on 07/28/2022; 10:19 AM, Mariposa Duncan 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; [facility] Active Problems & Conditions - J45.998 - Asthma - M54.50 - Backache Lower - K21.9 - Esophageal Reflux Without Esophagitis - 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 - F25.0 - Schizoaffective Disorder Chief Complaint The Chief Complaint is: Patient states feels like gerd is coming back, patient states that burps smell like rotten eggs or panel sewer went to ER for migraines. Referred [...] BP-Sitting L117/63 mmHg BP Cuff SizeRegular Pulse Rate-Gqnfcgn02 bpm Temp-Afzfebmg80.3 F Cbvwee56 in Hsqznr303 lbs 4.8 oz Body Mass Index22 kg/m2 Body Surface Area1.8 m2 Oxygen Nfmmztoblp13 % General Appearance: - Awake. - Alert. [...] in household were unable to get needed school child care attendant: No and unable to get other needs [...] Less than 40 years (0 points) [Pre-DM]. [facility]05-31-2023 Reason for referral (narrative)* Date Encounter Description Provider Reason for Referral 07/27/22 Medical Established Patient Mariposa Perla BANSAL Referral To Mental Health Team; [facility] Referral For [facility] Work Phone: [phone]) [phone] Reason for referral (narrative)* Date Encounter Description Provider Reason for Referral 07/27/22 Medical Established Patient Mariposa Perla BANSAL Referral To Mental Health Team; External referral/Resources provided [facility] Work Phone: [phone]) [phone] Hospital Discharge instructions* Discharge Instructions* Christopher Stephenson [...] through Care Everywhere. * Nausea and Vomiting (Danish) [facility] Work Phone: [phone]) [phone] History of Present illness Narrative* Martha Melgoza [...] smoked today 03/03/22. [facility] Work Phone: [phone]) [phone] Hospital Discharge instructions* Discharge Instructions* Kassidy Davidson [...] to bathe or shower. documented in this encounterCL[facility]ALTrend[facility] Phone: 1(635) 311-289001-03-2023 Hospital Discharge instructions* Discharge Instructions* Nicholas Denton MD - 03/01/2022 8:09 AM EST Take your medications as prescribed. You may take Tylenol Motrin as needed for pain control as wellas warm compresses. Follow-up with your OB sales development consultant as scheduled. You have been given a referral for general surgeon if this continues for further assessment of possible drainage. * Attachments The following attachments cannot be sent through Care Everywhere. * Cellulitis (Danish) documented in this encounterCLINTON HOSPITALUnbxd [facility] Phone: [phone]) 107-290706-21-2022 Evaluation note Includes: Assessments for all patient encounters Findings Encounter Date Schizoaffective disorder Established Patient with Halima Argueta [facility] 08/17/2021 Asthma Medical Established Patient with Kia Sharma [facility] 08/17/2021 Esophageal reflux without esophagitis Me dical Established Patient with Kia Sharma [facility] 08/17/2021 Schizoaffective disorder Medical Establi shed Patient with Kia Sharma [facility] 08/17/2021 Z68.20 - Body mass index [BM I] 20.0-20.9, adult Medical Established Patient with Kia Edith [facility] 08/17/2021 Schizoaffective disorder Established Patient with Halima Argueta [facility] 07/15/2021 Schizoaffective disorder Established Patient with Halima Argueta [facility] 07/15/2021 Bipolar disorder NOS Medical Established Patient with Kia Sharma [facility] 07/15/2021 Esophageal reflux without esophagitis Me dical Established Patient with Kia Edith [facility] 07/15/2021 Herpes simplex type I Medical Establishe d Patient with Kia Sharma [facility] 07/15/2021 Z68.1 - Body mass index [BMI ] 19.9 or less, adult Medical Established Patient with Kia Edith [facility] 07/15/2021 Asthma Medical Established Patient with Kia Edith 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 07/01/2021 Bipolar disorder NOS Medical Established Patient with Kia Edith 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 07/01/2021 Herpes simplex type I Medical Establishe d Patient with Kia Edith [facility] 07/01/2021 Schizoaffective disorder Medical Establi shed Patient with Kia Edith [facility] 07/01/2021 Z68.20 - Body mass index [BM I] 20.0-20.9, adult Medical Established Patient with Kia Sharma [facility] 07/01/2021 Diabetes Risk Test Score was one score 05/28/2021 Medical Established Patient with Kia Sharma [facility] 05/28/2021 Herpes simplex type I Medical Establishe d Patient with Kia Sharma [facility] 05/28/2021 No cough Medical Established Patient with Kia Sharma [facility] 05/28/2021 Visit for: screening for hum an immunodeficiency virus Medical Established Patient with Kia Sharma [facility] 05/28/2021 Z11.59 - Encounter for nettie kauffman for other viral diseases Medical Established Patient with Kia Sharma [facility] 05/28/2021 Z68.1 - Body mass index [BMI ] 19.9 or less, adult Medical Established Patient with Kia Sharma [facility] 05/28/2021 Asthma Medical Established Patient with Kia Sharma [facility] 04/03/2020 Body mass index Medical Established Patient with Kia Sharma [facility] 04/03/2020 Esophageal reflux without esophagitis Me dical Established Patient with Kia Sharma [facility] 04/03/2020 Lower backache Medical Established Patient with Kia Sharma 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 04/03/2020 Bipolar disorder (per denia vega, diagnosed w/both Bipolar I & II) Telebehavioral Health with Halima Argueta [facility] 03/20/2020 Schizoaffective disorder (pe r patient report) Telebehavioral Health with Halima Argueta [facility] 03/20/2020 Asthma Telemedicine New Pat ient with Kia Sharma [facility] 03/20/2020 [facility] Telemedicine New Pat ient with Kia Edith 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 03/20/2020 Z68.21 - Body mass index [BM I] 21.0-21.9, adult Telemedicine New Patient with Kia Sharma 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 03/20/2020 [facility] Work Phone: [phone] Evaluation note Includes: Assessments for all patient encounters Findings Encounter Date Schizoaffective disorder Established Patient with Halima Argueta [facility] 07/15/2021 Schizoaffective disorder Established Patient with [place] [facility] 07/15/2021 Bipolar disorder NOS Medical Established Patient with Kiafranco Sharma 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 07/15/2021 Esophageal reflux without esophagitis Me dical Established Patient with Kia Edith 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 07/15/2021 Herpes simplex type I Medical Establishe d Patient with Kiafranco Sharma 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 07/15/2021 Z68.1 - Body mass index [BMI ] 19.9 or less, adult Medical Established Patient with Kia Sharma 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 07/15/2021 Asthma Medical Established Patient with Kiafranco Sharma 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 07/01/2021 Bipolar disorder NOS Medical Established Patient with Kiafranco Sharma 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 07/01/2021 Herpes simplex type I Medical Establishe d Patient with Kaifranco Sharma 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 07/01/2021 Schizoaffective disorder Medical Establi shed Patient with Kiafranco Sharma 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 07/01/2021 Z68.20 - Body mass index [BM I] 20.0-20.9, adult Medical Established Patient with Kiafranco Sharma [facility] 07/01/2021 Diabetes Risk Test Score was one score 05/28/2021 Medical Established Patient with Kia Edith 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 05/28/2021 Herpes simplex type I Medical Establishe d Patient with Kia Edith 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 05/28/2021 No cough Medical Established Patient with Kia Edith 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 05/28/2021 Visit for: screening for hum an immunodeficiency virus Medical Established Patient with Kia Edith 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 05/28/2021 Z11.59 - Encounter for scree jamari for other viral diseases Medical Established Patient with Kia Edith 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 05/28/2021 Z68.1 - Body mass index [BMI ] 19.9 or less, adult Medical Established Patient with Kia Sharma 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 05/28/2021 Asthma Medical Established Patient with Kia Edith [facility] 04/03/2020 Body mass index Medical Established Patient with Kia Sharma 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 04/03/2020 Esophageal reflux without esophagitis Me dical Established Patient with Kia Edith 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 04/03/2020 Lower backache Medical Established Patient with Kia Sharma [facility] 04/03/2020 Bipolar disorder (per denia vega, diagnosed w/both Bipolar I & II) Telebehavioral Health with Halimaashok Argueta [facility] 03/20/2020 Schizoaffective disorder (pe r patient report) Telebehavioral Health with Halima Argueta [facility] 03/20/2020 Asthma Telemedicine New Pat ient with Kia Sharma [facility] 03/20/2020 Lumbago Telemedicine New Pat ient with Kia Edith [facility] 03/20/2020 Z68.21 - Body mass index [BM I] 21.0-21.9, adult Telemedicine New Patient with Kia Sharma [facility] 03/20/2020 [facility] Work Phone: [phone] Evaluation note Includes: Assessments for all patient encounters Findings Encounter Date Asthma Medical Established Patient with Kia Sharma 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 07/01/2021 Bipolar disorder NOS Medical Established Patient with Kia Sharma [facility] 07/01/2021 Herpes simplex type I Medical Establishe d Patient with Kia Sharma [facility] 07/01/2021 Schizoaffective disorder Medical Establi shed Patient with Kia Sharma [facility] 07/01/2021 Z68.20 - Body mass index [BM I] 20.0-20.9, adult Medical Established Patient with Kia Sharma [facility] 07/01/2021 Diabetes Risk Test Score was one score 05/28/2021 Medical Established Patient with Kia Sharma [facility] 05/28/2021 Herpes simplex type I Medical Establishe d Patient with Kia Edith [facility] 05/28/2021 No cough Medical Established Patient with Kia Edith [facility] 05/28/2021 Visit for: screening for hum an immunodeficiency virus Medical Established Patient with Kia Sharma [facility] 05/28/2021 Z11.59 - Encounter for scree jamari for other viral diseases Medical Established Patient with Kia Sharma [facility] 05/28/2021 Z68.1 - Body mass index [BMI ] 19.9 or less, adult Medical Established Patient with Kia Sharma [facility] 05/28/2021 Asthma Medical Established Patient with Kia Sharma [facility] 04/03/2020 Body mass index Medical Established Patient with Kia Sharma 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 04/03/2020 Esophageal reflux without esophagitis Me dical Established Patient with Kia Sharma 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 04/03/2020 Lower backache Medical Established Patient with Kia Sharma 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 04/03/2020 Bipolar disorder (per patien t, diagnosed w/both Bipolar I & II) Telebehavioral Health with [place] [facility] 03/20/2020 Schizoaffective disorder (pe r patient report) Telebehavioral Health with [place] [facility] 03/20/2020 Asthma Telemedicine New Pat ient with Kia Sharma [facility] 03/20/2020 Lumbago Telemedicine New Pat ient with Kia Sharma [facility] 03/20/2020 Z68.21 - Body mass index [BM I] 21.0-21.9, adult Telemedicine New Patient with Kia Sharma [facility] 03/20/2020 [facility] Work Phone: [phone]) [phone] Evaluation note Includes: Assessments for all patient encounters Findings Encounter Date Diabetes Risk Test Score was one score 05/28/2021 Medical Established Patient with Kia Sharma [facility] 05/28/2021 Herpes simplex type I Medical Establishe d Patient with Kia Sharma [facility] 05/28/2021 No cough Medical Established Patient with Kia Sharma [facility] 05/28/2021 Visit for: screening for hum an immunodeficiency virus Medical Established Patient with Kia Sharma [facility] 05/28/2021 Z11.59 - Encounter for scree jamari for other viral diseases Medical Established Patient with Kia Sharma [facility] 05/28/2021 Z68.1 - Body mass index [BMI ] 19.9 or less, adult Medical Established Patient with Kia Sharma [facility] 05/28/2021 Asthma Medical Established Patient with Kia Sharma [facility] 04/03/2020 Body mass index Medical Established Patient with Kia Sharma 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 04/03/2020 Esophageal reflux without esophagitis Me dical Established Patient with Kia Sharma 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 04/03/2020 Lower backache Medical Established Patient with Kia Sharma 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 04/03/2020 Bipolar disorder (per patien t, diagnosed w/both Bipolar I & II) Telebehavioral Health with [place] Argueta [facility] 03/20/2020 Schizoaffective disorder (pe r patient report) [facility] with Halima Argueta [facility] 03/20/2020 Asthma Telemedicine New Pat ient with Kia Sharma 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 03/20/2020 Lumbago Telemedicine New Pat ient with Kia Sharma [employer]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 03/20/2020 Z68.21 - Body mass index [BM I] 21.0-21.9, adult Telemedicine New Patient with Kia Sharma [employer]YE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 03/20/2020 [facility] Work Phone: 1([phone]) [phone] History of Present illness Narrative* Irish Nelson [...] Accompanied by a responsible adult. Yes * Irihs Nelson RN - 10/14/2020 1:04 PM EDT Discharge instructions reviewed with patient and patient's spouse. Verbalized understanding and denied any questions. * Summer Sousa RN - 10/14/2020 12:39 PM EDT Rogers FABRIC DESIGNER in to see patient. Patient's boyfriend called to berry picker. * Rufina Hamilton RN - 09/28/2020 [...] calls at this time. [facility] Work Phone: 1(464) 332-591002-05-2021 Evaluation note Includes: Assessments for all patient encounters Findings Encounter Date Asthma Medical Established Patient with Kia Sharma LONG CHAIN DYE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 04/03/2020 Body mass index Medical Established Patient with Kia Sharma [facility] 04/03/2020 Esophageal reflux without esophagitis Me dical Established Patient with Kia Sharma [facility] 04/03/2020 Lower backache Medical Established Patient with Kia Sharma [facility] 04/03/2020 Bipolar disorder (per denia vega, diagnosed w/both Bipolar I & II) Telebehavioral Health with Halima Argueta [facility] 03/20/2020 Schizoaffective disorder (pe r patient report) Telebehavioral Health with Halima Argueta [facility] 03/20/2020 Asthma Telemedicine New Pat ient with Kia Sharma [facility] 03/20/2020 Lumbago Telemedicine New Pat ient with Kia Sharma [facility] 03/20/2020 Z68.21 - Body mass index [BM I] 21.0-21.9, adult Telemedicine New Patient with Kia Sharma [facility] 03/20/2020 [facility] Work Phone: 1(938) 707-184801-22-2021 History general Narrative - Reported Includes: Medical History in patient's chart Description Last Updated per pt report- 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 ~heartb urn 03/20/2020 History of psychiatric disor ders ADHD, manic bipolar 1 and 2, schizoeffective disorder 03/20/2020 History of tooth extraction 03/20/2020 History of asthma 03/20/2020 A recent immunization for flu 03/20/2020 No previous hospitalizations 03/20/2020 [facility] Work Phone: 1(776) 794-176701-22-2021 History general Narrative - Reported Includes: Medical History in patient's chart Description Last Updated per pt report- 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 ~heartb urn 03/20/2020 Last Documented On 1 9:48AM ; [facility] History of psychiatric disor ders ADHD, manic bipolar 1 and 2, schizoeffective disorder 03/20/2020 Last Documented On 1 9:48AM ; [facility] History of tooth extraction 03/20/2020 Last Documented On 1 9:48AM ; [facility] History of asthma 03/20/2020 Last Documented On 1 9:48AM ; [facility] A recent immunization for flu 03/20/2020 Last Documented On 1 9:48AM ; [facility] No previous hospitalizations 03/20/2020 Last Documented On 1 9:48AM ; [facility] Work Phone: Discharge summary Author Osmani baugh [facility] October 29, 2021 9:52am Note Date/Time October 29, 2021 9:52am [facility] [address] [place] [address] Discharge Summary Signed Patient: Bennett Vaughn MR#: [id number] : 1995 Acct:[id number] Age/Sex: 26 / F Adm Date: 2 Loc: Room: [address] [place] [address]: Feliberto Faust MD Copies to: [...] 15 Days Qty: 30 1RF Follow Up: [employer] [Other] (Therapy: Case management: ) Documented By: Osmani Timmons MD 2 0949 Signed By: <Electronically signed by Osmani Timmons MD> 10/29/21 0952 [facility] Work Phone: Evaluation note* Diagnosis HGSIL (high grade squamous intraepithelial lesion) on Pap smear of cervix documented in this encounter [employer] Work Phone: evaleylnsd note* Diagnosis Preop testing- Primary Preoperative examination, unspecified documented in this encounter [employer] Phone: evalivjqzh note* Diagnosis Preop testing Preoperative examination, unspecified documented in this encounter [employer] Phone: evalaviaqg note* Diagnosis 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 documented in this encounter [employer] Phone: evalyanwel note* Diagnosis Irregular menstrual cycle documented in this encounter [employer] Phone: evalaewora note* Diagnosis Vaginal discharge Leukorrhea, not specified as infective documented in this encounter [employer] Phone: evalqmbwkz note* Diagnosis Onset Date Resolution Status Bipolar affective, mixed, sev w/ psych acute Chronic schizophrenia acute PTSD (post-traumatic stress disorder) acute Suicidal ideation acute [facility] Work Phone: Evaluation note* Diagnosis Cellulitis of right breast- Primary documented in this encounter [facility] [employer] Work Phone: evaluation note* Diagnosis Abscess of right breast- Primary Inflammatory disease of breast Abscess of right breast Inflammatory disease of breast documented in this encounter [employer] Phone: evaluation note* Diagnosis Nausea vomiting and diarrhea- Primary Nausea with vomiting documented in this encounter [employer] Phone: evaluation note* Diagnosis Abscess of female breast Inflammatory disease of breast documented in this encounter [employer] Phone: evaluation note* Diagnosis Flank pain- Primary Abdominal pain, unspecified site Urinary tract infection without hematuria, site unspecified documented in this encounter [employer] Phone: evalevqsih note* Diagnosis Abdominal pain- Primary Abdominal pain, unspecified site documented in this encounter [employer] note* Diagnosis Abdominal cramping- Primary Abdominal pain, unspecified site documented in this encounter [email or web address] Author Feliberto Faust [facility] October 27, 2021 3:07pm Note Date/Time October 27, 2021 3: 07pm [facility] [address] [place] [address] Psychiatry H&P Signed Patient: Bennett Vaughn MR#: [id number] : 1995 Acct:[id number] Age/Sex: 26 / F Adm Date: 2 Loc: Room: [address] [place] [address] Type: ADM IN Attending Dr: Feliberto Faust MD Copies to: Felibreto Faust MD NO FAMILY PHYSICIAN~ Date of [...] she believed that [facility] Vacc[facility] for [facility]-19?: No Medical History ADHD Asthma Murmur Surgical History H/O: Hx of dilation and curettage Family History (Updated 10/26/21 @ 20:08 by Debo Sultana RN) Mother Bipolar disorder Hypertension Brother Asthma Social History Smoking Status: Current every day smoker Tobacco Type: cigarettes Substance Use Type: Marijuana Social History Comments: lives in a camper parked at [place] house Meds Medications and Allergies Allergies [...] Appearance Clear Urine pH 7.0 Ur Specific Gary 1.005 Urine Protein Negative Urine Glucose (UA) [...] 10/27/21 1056 Signed By: <Electronically signed by Fleiberto Faust MD> 10/27/21 1506 [facility] Work Phone: History of Present illness Narrative History of Present Illness not supported for this document type No History of Present Illness [facility] Work Phone: Hospital Discharge instructions* Instructions* Irish [...] In the meantime, you may take an pwem-clf-kvybkjb analgesic (Tylenol, Anacin, etc.) and use a heating pad applied to the lower abdomen. Please call the office as soon as possible for a post-operative visit in two weeks. If you experience any unusual amount of bleeding or side effects that you cannot readily explain, please do not hesitate to call the office. [facility]: Hospital Discharge instructions Additional Instructions Regular diet No activity [facility] Work Phone: Instructions Instructions not supported for this document type No Instructions [facility] Work Phone: Patient problem outcome Narrative Includes: Evaluations & Outcomes for active Goals No Outcomes [facility] Work Phone: Progress note Author Osmani baugh [facility] October 28, 2021 12:18pm Note Date/Time October 28, 2021 12:18pm [facility] [address] [place] [address] Psychiatry Progress Note Signed Patient: Bennett Vaughn MR#: [id number] : 1995 Acct:[id number] Age/Sex: 26 / F Adm Date: 2 Loc: Room: 6M3302-4 Type : ADM IN Attending Dr: Feliberto [...] signed by Osmani Timmons MD> 10/28/21 1218 [facility] Work Phone: Reason for referral (narrative)No Reason for Referral [facility] Work Phone: Review of systems Narrative - Reported Review of Systems not supported for this document type No Review of Systems [facility] Work Phone: Summary Purpose Family History Description Last Updated father unknown 03/20/2020 Fraternal history of asthma 03/20/2020 Maternal history of hypertension 021 Relationship Condition Age at Onset Recorded Date/T jama Not Specified Bipolar affective disorder Unknown Hypertension Unknown brother Asthma Unknown Description Last Updated father unknown 03/20/2020 Last Documented On 1 9:48AM ; [facility] Fraternal history of asthma 03/20/2020 Maternal history of hypertension 021 Description Last Updated father unknown 03/20/2020 Last Documented On 1 9:48AM ; [facility] Fraternal history of asthma 03/20/2020 Maternal history of hypertension 021 Advance Directives Includes: Current Advance Directives No Advance Directives Recorded Documents on File Type Date Recorded Patient Advertising Teacher Expl anation ACP-Advance Directive ACP-Power of Branch Maker Latest Code Status on File Code Status Date Activated Date Inactivated Comments Full Code 02/13/2018 11:30 AM 02/15/2018 11:04 PM Full Code 07/15/2017 3:32 AM 07/17/2017 3:26 PM Full Code 07/15/2017 3:31 AM 07/15/2017 3:32 AM Full Code 10/29/2016 5:43 AM 11/02/2016 12:08 AM Full Code 02/14/2015 3:50 AM 02/17/2015 4:19 PM Documents on File Type Date Recorded Patient Advertising Teacher Expl anation ACP-Advance Directive ACP-Power of Branch Maker Latest Code Status on File Code [...] Agents on File Name Relationship Healthcare Agent Relationswv p Communication Aaron Dagoberto Spouse Primary Decision [...] sent through Care Everywhere. * Tooth: Abscessed (Danish) documented in this encounter* Instructions* Sid Norris [...] sent through Care Everywhere. * Bacterial Vaginosis (Danish) * Vaginal Bleeding (Danish) documented in this encounter* Instructions* Irina Ojeda PA-C - 02/06/2020 Call your dentist to arrange follow-up for recheck this week. * Attachments The following attachments cannot be sent through Care Everywhere. * Tooth: Abscessed (Danish) documented in this encounter* Instructions* Jose Saldaña APRN - LONG CHAIN DYE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 - 12/24/2019 Take amoxicillin as prescribed. Return to the emergency department for worsening symptoms. * Attachments The following attachments cannot be sent through Care Everywhere. * Dental Care: Pre-Dental Work Precautions: General Info (Danish) documented in this encounter Assessments Diagnosis Dental infection Acute apical periodontitis of pulpal origin Diagnosis Dental abscess Periapical abscess without sinus Dental caries Unspecified dental caries Diagnosis Bacterial vaginosis- Primary Vaginitis and vulvovaginitis, unspecified Vaginal bleeding Other specified noninflammatory disorder of vagina Findings Encounter Date Bipolar disorder (per denia vega, diagnosed w/both Bipolar I & II) Telebehavioral Health with Halima Argueta [facility] 03/20/2020 Schizoaffective disorder (pe r patient report) Telehavioral Health with Halima Argueta [facility] 03/20/2020 Asthma Telemedicine New Pat ient with Kia Sharma [employer]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 03/20/2020 Lumbago Telemedicine New Pat ient with Kia Sharma [employer] CH[employer] DYE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 03/20/2020 Z68.21 - Body mass index [BM I] 21.0-21.9, adult Telemedicine New Patient with Kia Sharma CNP 03/20/2020 Diagnosis Women's annual routine gynecological examination Findings Encounter Date Asthma Medical Established Patient with Kia Sharma CNP 04/03/2020 Body mass index Medical Established Patient with Kia Sharma CNP 04/03/2020 Esophageal reflux without esophagitis Me dical Established Patient with Kia Sharma [facility] 04/03/2020 Lower backache Medical Established Patient with Kia Sharma [facility] 04/03/2020 Bipolar disorder (per denia vega, diagnosed w/both Bipolar I & II) Telebehavioral Health with Halim[facility]uck [facility]gueta [facility] 03/20/2020 Schizoaffective disorder (pe r patient report) Telebehavioral Health with aHlima Condonmons [facility] 03/20/2020 Asthma Telemedicine New Pat ient with Kia Sharma [facility] 03/20/2020 Lumbago Telemedicine New Pat ient with Kia Sharma [facility] 03/20/2020 Z68.21 - Body mass index [BM I] 21.0-21.9, adult Telemedicine New Patient with Kia Sharma [facility] 03/20/2020 Diagnosis Dental infection- Primary Acute [...] section and content) DATE CREATED AUTHOR 12/08/2018 [facility] DATE CREATED AUTHOR AUTHOR'S ORGANIZ ATION 05/31/2021 [facility] DATE CREATED AUTHOR AUTHOR'S ORGANIZ ATION 03/16/2022 [facility] DATE CREATED AUTHOR AUTHOR'S ORGANIZ ATION 04/02/2022 [facility] DATE CREATED AUTHOR AUTHOR'S ORGANIZ ATION 10/02/2023 [facility] DATE CREATED AUTHOR AUTHOR'S ORGANIZ ATION 12/22/2023 [facility] dical Specialists EPIC Reason for Visit [...] (cervical intraepithelial neoplasia II) SHREYA II Procedures OR CONIZATION CERVIX,LOOP ELECTRD DILATATION AND CURETTAGE LEEP-ENDOCERVICAL CURETTAGE Anthony Galloway MD [address] [place] [address] [facility] Reason Comments Breast Pain Right sided, onset y esterday pm, patient states she had an infection in her right breast a few months ago Specialty Diagnoses / Procedures Referred By Gladis t Referred To Contact Diagnoses Abscess of right breast right breast abcess Procedures OR DRAIN SKIN ABSCESS SIMPLE BREAST INCISION AND DRAINAGE- BREAST Geoff Miller MD [address] [place] [address] [facility] [id number] [place] [address] Referral ID Status Reason Start Date Expiration Date Visits Re quested Visits Authorized [id number] 1 1 Reason Comments Nausea Emesis Illness Pt. States she has h ad nausea & vomiting since this am. Reports hot & cold flashes & Occasional dizziness Specialty Diagnoses / Procedures Referred By Gladis t Referred To Contact Radiology Diagnoses Abscess of female breast Procedures US BREAST LIMITED RIGHT US BREAST COMPLETE RIGHT Geoff Miller MD [address] [place] [address] Referral ID Status Reason Start Date Expiration Date Visits Re quested Visits Authorized [id number] Open 04/18/2022 04/18/2023 1 1 Specialty Diagnoses / Procedures Referred By Contac t Referred To Contact Radiology Diagnoses Abscess of female breast Procedures DUSTIN JASMINA DIGITAL DIAGNOSTIC BILATERAL DUSTIN DIGITAL DIAGNOSTIC W OR WO CAD BILATERAL Geoff Miller MD [address] [place] [address] Referral ID Status Reason Start Date Expiration Date Visits Re quested Visits Authorized [id number] Closed 04/18/2022 04/18/2023 1 1 Reason Comments [...] 100 mL IVPB (COMPLETED) 2,000 mg, Intravenous, FINISHER SCREWDOWN TO O.R., 1 dose, On Mon10/14/20 at [...] only 1215 (Given - Provid er: Summer Suosa RN) oxyCODONE (ROXICODONE) immediate release tablet 5 [...] 100 mL IVPB (COMPLETED) 2,000 mg, IntraVENous, FINISHER SCREWDOWN TO O.R., 1 dose, On Mon03/04/22 at [...] PHYSICIAN NO FAMILY Primary Care Provider Active Acid Supervisor Relationship Specialty Start Date End Date Kia Sharma APRN - LONG CHAIN DYE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 [address] [place] [place] [address] PCP - General Nurse Practitioner 04/13/22 Acid Supervisor Relationship Specialty Start Date End Date Kia Sharma APRN - LONG CHAIN DYE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 [address] [place] [address] PCP - General Nurse Practitioner 04/13/22 Acid Supervisor Relationship Specialty Start Date End Date Kia Sharma APRN [facility] [address] [place] [address] PCP - General Nurse Practitioner 04/13/22 Acid Supervisor Relationship Specialty Start Date End Date Kia Sharma APRN LONG CHAIN DYE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 [address] [place] [id number] PCP - General Nurse Practitioner 04/13/22 Acid Supervisor Relationship Specialty Start Date End Date Kia Sharma APRN [employer] CHAIN DYE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 [address] [place] [address] PCP - General Nurse Practitioner 04/13/22 Acid Supervisor Relationship Specialty Start Date End Date Kia Sharma APRN LONG CHAIN DYE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 [address] [place] [phone] PCP - General Nurse Practitioner 04/13/22 FOR [...] PRIMARY CLINICAL RECORDS. [facility] [employer] [facility]. provides no warranty or guarantee of the accuracy or completeness of information in this document.
[2024-01-05 06:16] LABS: Basophils Percent Auto 0.4 % (0.2-2.0); Eosinophils Absolute Auto 0.2 10^3/uL (0.0-0.7); Eosinophils Percent Auto 2.5 % (0.9-7.0); Hematocrit 35.6 % (36.0-48.0); Hemoglobin 11.9 g/dL (12.0-16.0); Immature Granulocytes Abs Auto 0.02 10^3/uL (0.00-0.03); Immature Granulocytes Pct Auto 0.3 % (0.0-0.5); Lymphocytes Absolute Auto 2.3 10^3/uL (1.2-3.8); Lymphocytes Percent Auto 32.4 % (20.5-60.0); Mean Corpuscular HGB Conc 33.4 g/dL (29.9-35.2); Mean Corpuscular Hemoglobin 31.6 pg (26.7-34.0); Mean Corpuscular Volume 94.7 fL (81.0-99.0); Mean Platelet Volume 9.6 fL (9.5-13.5); Monocytes Absolute Auto 0.7 10^3/uL (0.3-0.8); Monocytes Percent Auto 9.3 % (1.7-12.0); Neutrophils Percent Auto 55.1 % (43.0-75.0); Platelet Count 215 10^3/uL (150-450); Red Blood Count 3.76 10^6/uL (4.20-5.40); Red Cell Distribution Width 11.9 % (11.0-15.0); White Blood Count 7.2 10^3/uL (4.0-11.0)
[2024-01-05 06:36] LABS: HCG Quantitative <1 mIU/mL
[2024-01-05] MEDS: LACTATED RINGER'S SOLUTION 1,000 ML 50 ML IV (06:42)
[2024-01-05] MEDS: SCOPOLAMINE 1 MG/3 DAYS TRANSDERM PATCH 1 PATCH TD (06:49)
--- NOTE | 2024-01-05 08:26 | P.ON_ITS ---
Brief Operative Note Date of procedure: 01/05/24 Pre-op diagnosis general: desires permanent sterilization, multiparity Post-op diagnosis: same as pre-op Procedure: NAME OF PROCEDURE: robotic assisted bilateral laparoscopic salpingectomy, lysis of omental adhesions from the anterior abdominal wall PROCEDURE: The patient was taken back to the Operating Room where she was given general anesthesia without difficulty. She was then prepped and draped in the normal sterile fashion after being placed in a dorsal lithotomy position. A wet sponge stick was placed into the patient's vagina. Attention was then turned to the patient's abdomen, where a scalpel was used to make a small infraumbilical incision. The S retractors were then used to dissect the underlying layers until the fascia could be seen. The fascia was then grasped with Tomas clamps and tented up. A knife was then used to make a small incision to the fascia. The muscle was identified, at that time two sutures of #0 Vicryl on a GI needle was then used and placed through the fascia. the peritoneum was then identified and entered bluntly. The 10-4 Donna was then placed into the patient's abdomen. This was confirmed with direct visualization of the bowel, using the laparoscope. The patient's abdomen was then insufflated using approximately 4 liters of CO2 gas. Survey of the patient's abdomen demonstrated ovaries were normal in appearance as well as both tubes and uterus. A second and third rt and lt lateral robotic ports which were 8 mm in size, was then placed after the skin incision was made under direct visualization . the robotic arms were engaged. The patient's tube on the patient's right side was identified and tented up using a grasper, the ligasure apparatus was then used to come across the mesosalpingx from the fimbriated end to the insertion site at the uterus, the tube was then amputated and removed in its entirety. This was done on the contralateral side. The tubes were the removed from the patients abdomen. Excellent hemostasis was noted. The lateral ports were then moved under direct visualization with excellent hemostasis. All instruments were removed from the patient's abdomen. The fascia was closed using the #0 Vicryl on GI needle. The skin was closed using 4-0 Vicryl subcuticularly. All instruments were removed from the patient's vagina as well. The patient was taken out of the dorsal lithotomy position and placed in the supine position and taken to recovery in stable condition. Sponge, lap and needle counts were correct x2. please note the vessel sealer was used to lyse the omental adhesions from the anterior abdominal wall Anesthesia: NADIA Surgeon: Yuriy Sabillon Application Internship: Yulia Pelletier Estimated blood loss (mL): 5 Pathology: other (tubes) Condition: stable Disposition: PACU Urinary Catheter Management Urinary Catheter Management Urethral: Cath placed during this visit: no
[2024-01-05] MEDS: HYDROMORPHONE HCL 0.5 MG/0.5 ML SYRINGE IV (09:03)
[2024-01-05] MEDS: HYDROCODONE/ACET 5-325 MG TABLET 1 TAB PO (09:12)
== END 2024-01-05 10:03 | disposition home or self-care (01) ==
PROVIDERS: Visit Provider Obstetrics & Gynecology
PROC: (CPT 840; principal; 2024-01-05 07:30)
DX: Z30.2 Encounter for sterilization (principal); K66.0 Peritoneal adhesions (postprocedural) (postinfection); N83.8 Other noninflammatory disorders of ovary, fallopian tube and broad ligament; F17.290 Nicotine dependence, other tobacco product, uncomplicated
CPT/HCPCS: 58661; 36415; 84702; 85025; 88302; J1100; J1171; J1885; J2175; J2250; J2405; J2704; J3010